=== PATIENT | female | born 1980 | race Hispanic/Latino ===

== ENCOUNTER 2019-01-25 00:32 | Emergency (ER) | payer SELFPAY ==
--- NOTE | 2019-01-25 01:31 | EDPHYS ---
Physician Documentation [facility] Name: Kina Cortez Age: 38 yrs Sex: Female : 1980 Arrival Date: 01/25/2019 Time: 00:33 Bed 16 Private MD: ED Physician Mikey Ho HPI: 01/25 01:32 This 38 yrs old Female presents to ER via Ambulatory with complaints of la1 Toothache, Headache. 01:32 The patient presents with pain. The problem is located in the upper left second molar. la1 Onset: The symptoms/episode began/occurred 1 week(s) ago. Duration: The symptoms are continuous. Modifying factors: The symptoms are alleviated by over the counter medications, the symptoms are aggravated by nothing. Associated signs and symptoms: Pertinent negatives: chills, dysphagia, fever, inability to eat, nausea, redness in area, swelling, vomiting. Severity of symptoms: At their worst the symptoms were moderate. pt reports she has dental pain on the upper left side, it has been there for a week but getting worse, now having left sided burning facial pain. States ibuprofen helps but when it wears off the pain comes back, pt has apt with dentist to have tooth extracted. Historical: - Allergies: 00:46 No Known Allergies; aa1 - PMHx: 00:46 Hypertension; Arthritis; aa1 - PSHx: 00:46 ; aa1 - Social history:: Smoking status: Patient/guardian denies using tobacco. - Ebola Screening: : No symptoms or risks identified at this time. ROS: 01:34 Constitutional: Negative for fever, chills, and weight loss, Eyes: Negative for injury, la1 pain, redness, and discharge, ENT: + dental pain Neck: Negative for injury, pain, and swelling, Cardiovascular: Negative for chest pain, palpitations, and edema, Respiratory: Negative for shortness of breath, cough, wheezing, and pleuritic chest pain, Abdomen/GI: Negative for abdominal pain, nausea, vomiting, diarrhea, and constipation, Back: Negative for injury and pain, MS/Extremity: Negative for injury and deformity. Exam: 01:35 Constitutional: This is a well developed, well nourished patient who is awake, alert, la1 and in no acute distress. Head/Face: Normocephalic, atraumatic. Eyes: Pupils equal round and reactive to light, extra-ocular motions intact. Periorbital areas with no swelling, redness, or edema. 01:35 Neck: Trachea midline, no thyromegaly or masses palpated, and no cervical lymphadenopathy. Supple, full range of motion without nuchal rigidity, or vertebral point tenderness. No Meningismus. Chest/axilla: Normal chest wall appearance and motion. Nontender with no deformity. No lesions are appreciated. Cardiovascular: Regular rate and rhythm with a normal S1 and S2. No gallops, murmurs, or rubs. Normal PMI, no JVD. No pulse deficits. Respiratory: Lungs have equal breath sounds bilaterally, clear to auscultation . No rales, rhonchi or wheezes noted. No increased work of breathing, no retractions or nasal flaring. Abdomen/GI: Soft, non-tender, with normal bowel sounds. No distension No guarding or rebound. No evidence of tenderness throughout. MS/ Extremity: Pulses equal, no cyanosis. Neurovascular intact. Full, normal range of motion. 01:35 ENT: Mouth: Oral mucosa: normal, Dental exam: abscess, specifically in the upper left second molar (#15), dental caries, that is mild, specifically in the upper left second molar (#15). Vital Signs: 00:46 BP 165 / 94; Pulse 78; Resp 18; Temp 98.4; Pulse Ox 98% on R/A; Weight 99.79 kg; Pain aa1 10/10; 02:10 BP 154 / 80; Pulse 79; Resp 16; Pulse Ox 97% on R/A; jb4 MDM: 00:51 Patient medically screened. la1 01:36 Differential diagnosis: dental caries, gingivitis, dental abscess, pericoronitis, acute la1 necrotizing ulcerative gingivitis, trigeminal neuralgia, temporal arteritis. Data reviewed: vital signs, nurses notes, I have discussed the patient's presentation/case with the attending Emergency Department Physician; and as a result, I will discharge patient. Data interpreted: Pulse oximetry: on room air is 98 %. Interpretation: normal. Counseling: I had a detailed discussion with the patient and/or guardian regarding: the historical points, exam findings, and any diagnostic results supporting the discharge/admit diagnosis, the need for outpatient follow up, a dentist. ED course: Pt with left sided facial pain/burning, in conjunction with recent dental infection on the upper left it is likely this pain is caused by inflammation around a nerve, will place on abx and steroids since pt is not diabetic, pt will FU with dentist. Administered Medications: 02:00 Drug: Clindamycin 300 mg Route: PO; jb4 02:10 Follow up: Response: No adverse reaction jb4 02:00 Drug: SOLU-Medrol 125 mg Route: IM; Site: right gluteus; jb4 02:09 Follow up: Response: No adverse reaction jb4 02:00 Drug: [place] 10 mg-325 mg 1 tabs {Note: RAss score 0.} Route: PO; jb4 02:08 Follow up: Response: No adverse reaction; RASS: Alert and Calm (0) jb4 Disposition: 04:48 Co-signature as Attending Physician, Mikey Ho MD I agree with the assessment and tw4 plan of care. Disposition: 01/25/19 01:30 Discharged to Home. Impression: Dental caries, Left facial pain. - Condition is Stable. - Discharge Instructions: Dental Abscess, Dental Caries, Adult. - Prescriptions for Clindamycin HCl 300 mg Oral Capsule - take 1 capsule by ORAL route every 6 hours for 10 days; 40 capsule. Tylenol- Codeine #3 300-30 mg Oral Tablet - take 2 tablets by ORAL route every 6 hours As needed; 15 tablet. Medrol (Anthony) 4 mg Oral Tablets, Dose Pack - take 1 tablet by ORAL route as directed - follow package instructions; 1 packet. - Medication Reconciliation Form, Thank You Letter, Antibiotic Education, Prescription Opioid Use form. - Follow up: Private Physician; When: 2 - 3 days; Reason: Recheck today's complaints, Re-evaluation by your physician. - Problem is an ongoing problem. - Symptoms are unchanged. Signatures: Anjana Vieira RN RN aa1 Kenn Palomares, FISHER QUAHOG-C FISHER QUAHOG-Cla1 Prakash Montano RN RN jb4 Mikey Ho MD MD tw4 Corrections: (The following items were deleted from the chart) 02:13 01:30 01/25/2019 01:30 Discharged to Home. Impression: Dental caries; Left facial pain. jb4 Condition is Stable. Forms are Medication Reconciliation Form, Thank You Letter, Antibiotic Education, Prescription Opioid Use. Follow up: Private Physician; When: 2 - 3 days; Reason: Recheck today's complaints, Re-evaluation by your physician. Problem is an ongoing problem. Symptoms are unchanged. la1
--- NOTE | 2019-01-25 01:31 | ER ---
Nurse's Notes [facility] Name: Kina Cortez Age: 38 yrs Sex: Female : 1980 Arrival Date: 01/25/2019 Time: 00:33 Bed 16 Private MD: Diagnosis: Dental caries;Left facial pain Presentation: 01/25 00:45 Presenting complaint: Patient states: L sided tooth pain and headache x 3 days. aa1 Transition of care: patient was not received from another setting of care. Onset of symptoms was January 21, 2019. Risk Assessment: Do you want to hurt yourself or someone else? Patient reports no desire to harm self or others. Initial Sepsis Screen: Does the patient meet any 2 criteria? No. Patient's initial sepsis screen is negative. Does the patient have a suspected source of infection? No. Patient's initial sepsis screen is negative. Care prior to arrival: None. 00:45 Method Of Arrival: Ambulatory aa1 00:45 Acuity: DOMINIC 4 aa1 Triage Assessment: 00:46 General: Appears in no apparent distress. uncomfortable, obese, Behavior is calm, aa1 cooperative, appropriate for age. Historical: - Allergies: 00:46 No Known Allergies; aa1 - PMHx: 00:46 Hypertension; Arthritis; aa1 - PSHx: 00:46 ; aa1 - Social history:: Smoking status: Patient/guardian denies using tobacco. - Ebola Screening: : No symptoms or risks identified at this time. Screenin:00 Abuse screen: Denies threats or abuse. Nutritional screening: No deficits noted. jb4 Tuberculosis screening: No symptoms or risk factors identified. Fall Risk None identified. Assessment: 01:23 General: Appears in no apparent distress. uncomfortable, Behavior is calm, cooperative, jb4 appropriate for age. Pain: Complains of pain in mouth Pain radiates to left side of head Pain currently is 10 out of 10 on a pain scale. Neuro: Level of Consciousness is awake, alert, obeys commands, Oriented to person, place, time, situation. Cardiovascular: Patient's skin is warm and dry. Respiratory: Airway is patent Respiratory effort is even, unlabored, Respiratory pattern is regular, symmetrical. GI: No signs and/or symptoms were reported involving the gastrointestinal system. : No signs and/or symptoms were reported regarding the genitourinary system. EENT: Oral mucosa is moist. Dental caries noted in upper left second molar (#15). Derm: Skin is intact, Skin is pink, warm \T\ dry. Musculoskeletal: Circulation, motion, and sensation intact. Range of motion: intact in all extremities. 02:10 Reassessment: Patient appears in no apparent distress at this time. Patient and/or jb4 family updated on plan of care and expected duration. Pain level reassessed. Patient is alert, oriented x 3, equal unlabored respirations, skin warm/dry/pink. Vital Signs: 00:46 BP 165 / 94; Pulse 78; Resp 18; Temp 98.4; Pulse Ox 98% on R/A; Weight 99.79 kg; Pain aa1 11/22; 02:10 BP 154 / 80; Pulse 79; Resp 16; Pulse Ox 97% on R/A; jb4 ED Course: 00:33 Patient arrived in ED. cf2 00:36 Kenn Palomares FNP-C [facility]. la1 00:36 Mikey Ho MD is Attending Physician. la1 00:40 Prakash Montano, GLORIA is Primary Nurse. jb4 00:46 Triage completed. aa1 00:46 Arm band placed on right wrist. aa1 01:00 Patient has correct armband on for positive identification. Bed in low position. Call jb4 light in reach. Side rails up X 1. Pulse ox on. NIBP on. 02:13 No provider procedures requiring assistance completed. Patient did not have IV access jb4 during this emergency room visit. Administered Medications: 02:00 Drug: Clindamycin 300 mg Route: PO; jb4 02:10 Follow up: Response: No adverse reaction jb4 02:00 Drug: SOLU-Medrol 125 mg Route: IM; Site: right gluteus; jb4 02:09 Follow up: Response: No adverse reaction jb4 02:00 Drug: [place] 10 mg-325 mg 1 tabs {Note: RAss score 0.} Route: PO; jb4 02:08 Follow up: Response: No adverse reaction; RASS: Alert and Calm (0) jb4 Outcome: 01:30 Discharge ordered by . la1 02:13 Discharged to home ambulatory, with family. jb4 02:13 Condition: stable 02:13 Discharge instructions given to patient, family, Instructed on discharge instructions, follow up and referral plans. medication usage, Demonstrated understanding of instructions, follow-up care, medications, Prescriptions given X 3. 02:13 Patient left the ED. jb4 Signatures: Anjana Vieira RN RN aa1 Kenn Palomares, AIR ANALYST-C AIR ANALYST-Cla1 Prakash Montano RN RN jb4 Janet Kennedy 2
[2019-01-25] MEDS ORDERED: HYDROCODONE/APAP 10/325 TAB ONE (01:50)
[2019-01-25] MEDS ORDERED: CLINDAMYCIN HCL 150 MG CAP ONE (01:50)
[2019-01-25] MEDS ORDERED: METHYLPREDNISOLONE 125 MG INJ ONE (01:50)
[2019-01-25 05:27] VITALS: TEMP 98.4
[2019-01-25 05:29] VITALS: BP 154/80; O2SAT 97
== END 2019-01-25 02:13 | disposition home or self-care (01) ==
LOC: ER 00:32
DX: K02.9 Dental caries, unspecified (principal); R51 Headache
CPT/HCPCS: 96372; 99283; J2930

== ENCOUNTER 2020-05-25 15:47 | Emergency (ER) | payer SELFPAY ==
[2020-05-25 16:34] LABS: Absolute Lymphocytes (CBC) 1.5 K/uL (0.7-4.9); Basophils % 0.8 % (0-1.3); Hematocrit 39.9 % (36.0-45.0); Lymphocytes % 18.7 % (15.3-44.8); MPV 9.2 fL (7.6-11.3); RBC Red Blood Cell Count 4.66 M/uL (3.86-4.86)
[2020-05-25] MEDS ORDERED: MORPHINE 4 MG/ML SYR ONE (17:16)
[2020-05-25] MEDS ORDERED: ONDANSETRON 4 MG/2 ML VIAL ONE (17:16)
--- NOTE | 2020-05-25 17:30 | RAD REPORT ---
EXAM DESCRIPTION: CT - Head Brain Wo Cont - 05/25/2020 5:02 pm CLINICAL HISTORY: HEADACHE COMPARISON: No comparisons TECHNIQUE: Axial 5 mm thick images of the head were obtained without IV contrast. All CT scans are performed using dose optimization technique as appropriate and may include automated exposure control or mA/KV adjustment according to patient size. FINDINGS: No intracranial hemorrhage, mass, edema or shift of mid-line structures. No acute infarcti on changes seen. No abnormal extra-axial fluid collections. Ventricles are normal. Mastoid air cells and visualized portions of the paranasal sinuses are clear. No acute bony findings. IMPRESSION: Negative non-contrast CT head examination.
--- NOTE | 2020-05-25 17:33 | RAD REPORT ---
EXAM DESCRIPTION: RAD - Chest Single View - 05/25/2020 5:14 pm CLINICAL HISTORY: CHEST PAIN COMPARISON: None TECHNIQUE: AP portable chest image was obtained 05/25/2020 5:14 pm . FINDINGS: Lungs are clear. Lung volumes are low. Portable technique, low lung volumes and very large body habitus limit evaluation. No gross evidence for a focal mass or consolidation. Mild failure or volume overload could be masked. No measurable pleural effusion and no pneumothorax. No acute bony ab normality seen. No acute aortic findings suspected. IMPRESSION: No acute cardiopulmonary process. Exam is significantly limited. Early failure or volume overload cannot be excluded.
[2020-05-25 17:36] LABS: Protime INR 1.11
[2020-05-25 17:47] LABS: ALT/SGPT 17 U/L (12-78); AST/SGOT 10 U/L (15-37); Albumin 3.3 g/dL (3.4-5.0); Alkaline Phosphatase 103 U/L (45-117); BUN Blood Urea Nitrogen 13 mg/dL (7-18); Bicarbonate 30 mmol/L (21-32); Bilirubin Direct < 0.1 mg/dL (0-0.2); Bilirubin Total 0.2 mg/dL (0.2-1.0); Glucose Level 97 mg/dL (74-106); Magnesium 1.8 mg/dL (1.8-2.4); NT PRO-BNP 70 pg/mL (<125); Sodium Level 136 mmol/L (136-145); Troponin (Emerg Dept Use Only) < 0.02 ng/mL (0.0-0.045)
--- NOTE | 2020-05-25 20:05 | ER ---
Nurse's Notes [facility] Name: Kina Cortez Age: 39 yrs Sex: Female : 1980 Arrival Date: 05/25/2020 Time: 15:49 Bed 14 Private MD: Diagnosis: Chest pain, unspecified;Headache Presentation: 05/25 15:49 Chief complaint: EMS states: "pt was at work when she had increasingly worsening jd3 headache to the point where she reports that it will pop. pt also reported pain/pressure behind her eyes. pt with history of high blood pressure with pressures in the 190's systolic. upon arrival to the hospital, the pt reported having increasingly more pressure in her chest as well.". Coronavirus screen: At this time, the client does not indicate any symptoms associated with coronavirus-19. Ebola Screen: Patient negative for fever greater than or equal to 101.5 degrees Fahrenheit, and additional compatible Ebola Virus Disease symptoms. Initial Sepsis Screen: Does the patient meet any 2 criteria? No. Patient's initial sepsis screen is negative. Does the patient have a suspected source of infection? No. Patient's initial sepsis screen is negative. Risk Assessment: Do you want to hurt yourself or someone else? Patient reports no desire to harm self or others. Onset of symptoms was May 25, 2020. 15:49 Method Of Arrival: EMS: [place] [id number] 15:49 Acuity: DOMINIC 3 jd3 Triage Assessment: 16:00 General: Appears distressed, uncomfortable, Behavior is cooperative, appropriate for bp age, anxious. Pain: Complains of pain in head and chest. EENT: No deficits noted. Neuro: Level of Consciousness is awake, alert, obeys commands, Oriented to Appropriate for age Reports headache. Cardiovascular: No deficits noted. Respiratory: No deficits noted. GI: No deficits noted. : No signs and/or symptoms were reported regarding the genitourinary system. Derm: No deficits noted. Musculoskeletal: No deficits noted. Historical: - Allergies: 15:53 No Known Allergies; jd3 - Home Meds: 15:53 Lisinopril Oral [Active]; jd3 - PMHx: 15:53 Arthritis; Hypertension; jd3 - PSHx: 15:53 ; jd3 - Immunization history:: Adult Immunizations up to date. - Social history:: Smoking status: unknown. Screenin:55 Abuse screen: Denies threats or abuse. Nutritional screening: No deficits noted. jd3 Tuberculosis screening: No symptoms or risk factors identified. Fall Risk Ambulatory Aid- None/Bed Rest/Nurse Assist (0 pts). Gait- Normal/Bed Rest/Wheelchair (0 pts) Mental Status- Oriented to own ability (0 pts). Total Lucas Fall Scale indicates No Risk (0-24 pts). Assessment: 16:00 General: SEE TRIAGE NOTE. bp 17:00 Reassessment: No changes from previously documented assessment. Patient and/or family bp updated on plan of care and expected duration. Pain level reassessed. PT RETURNED FROM CT. 18:00 Reassessment: No changes from previously documented assessment. Patient and/or family bp updated on plan of care and expected duration. Pain level reassessed. ALL CURRENT ORDERS COMPLETE, DISPO PENDING. 19:00 Reassessment: Patient appears in no apparent distress at this time. Patient and/or jb4 family updated on plan of care and expected duration. Pain level reassessed. Patient is alert, oriented x 3, equal unlabored respirations, skin warm/dry/pink. 20:20 Reassessment: Patient appears in no apparent distress at this time. Patient and/or jb4 family updated on plan of care and expected duration. Pain level reassessed. Patient is alert, oriented x 3, equal unlabored respirations, skin warm/dry/pink. Vital Signs: 15:54 BP 157 / 77; Pulse 77; Resp 25 S; Temp 98.1(O); Pulse Ox 98% on R/A; Pain 10/10; jd3 17:04 BP 147 / 80; Pulse 77; Resp 18; Pulse Ox 96% on R/A; mh5 18:00 BP 116 / 72; Pulse 78; Resp 16; Pulse Ox 98% ; bp 19:30 BP 124 / 74; Pulse 81; Resp 19; Pulse Ox 94% on R/A; jb4 20:00 BP 124 / 82; Pulse 73; Resp 16; Pulse Ox 97% on R/A; jb4 ED Course: 15:49 Patient arrived in ED. jd3 15:51 Diego Vieyra NP is PHCP. pm1 15:51 Cirilo Myers MD is Attending Physician. pm1 15:53 Triage completed. jd3 15:54 Arm band placed on. jd3 15:55 Patient has correct armband on for positive identification. Placed in gown. Bed in low jd3 position. Call light in reach. Side rails up X 1. property assessment monitor on. Pulse ox on. NIBP on. 16:00 Anival May, RN is Primary Nurse. bp 16:03 Patient has correct armband on for positive identification. Placed in gown. Bed in low mh5 position. Call light in reach. Side rails up X 1. Side rails up X2. Warm blanket given. property assessment monitor on. Pulse ox on. NIBP on. 16:03 EKG done, by ED staff, reviewed by Cirilo Myers MD. [facility] 16:12 Inserted saline lock: 20 gauge in right antecubital area, using aseptic technique. 5 Blood collected. 16:12 Initial lab(s) drawn, by ky, held in ED. [facility] 16:21 Basic Metabolic Panel Sent. [facility] 16:21 CBC with Automated Diff Sent. 5 16:21 Liver (Hepatic) Function Sent. 5 16:22 Basic Metabolic Panel Sent. 5 16:22 CBC with Diff Sent. 5 16:22 Magnesium Sent. 5 16:22 LFT's Sent. 5 16:22 NT PRO-BNP Sent. 5 16:23 PT-INR Sent. 5 16:23 Troponin (emerg Dept Use Only) Sent. 5 17:01 CT Head Brain wo Cont In Process Unspecified. EDMS 17:19 XRAY Chest (1 view) In Process Unspecified. EDMS 20:18 No provider procedures requiring assistance completed. IV discontinued, intact, ea bleeding controlled, No redness/swelling at site. Pressure dressing applied. Administered Medications: 17:00 Drug: morphine 4 mg Route: IVP; Site: right antecubital; bp 18:18 Follow up: Response: Pain is decreased bp 17:00 Drug: Zofran (Ondansetron) 4 mg Route: IVP; Site: right antecubital; bp 18:18 Follow up: Response: Nausea is decreased bp 20:21 Drug: Tylenol 1000 mg Route: PO; ea 20:21 Follow up: Response: Medication administered at discharge. ea Outcome: 20:04 Discharge ordered by . pm1 20:18 Discharged to home ambulatory, with family. raven 20:18 Condition: stable 20:18 Discharge instructions given to patient, Instructed on discharge instructions, follow up and referral plans. Demonstrated understanding of instructions, follow-up care. 20:22 Patient left the ED. jb4 Signatures: Dispatcher [employer] EDMS Diego Vieyra NP INSPECTOR MISSILE pm1 Prakash Montano RN RN jb4 Roula Griffin Kaylee Montenegro RN RN ea Davies, Jonathon, RN RN jd3 Anival May RN RN bp
--- NOTE | 2020-05-25 20:05 | EDPHYS ---
Physician Documentation [facility] Name: Kina Cortez Age: 39 yrs Sex: Female : 1980 Arrival Date: 05/25/2020 Time: 15:49 Bed 14 Private MD: ED Physician Cirilo Myers HPI: 05/25 16:36 This 39 yrs old Female presents to ER via EMS with complaints of Headache, pm1 Chest Pressure. 16:36 The patient complains of pain to the left side of head. The patient describes the pm1 headache as aching, constant. Onset: The symptoms/episode began/occurred 2 day(s) ago. Associated signs and symptoms: Pertinent positives: Chest pain, Pertinent negatives: fever, neck stiffness, paresthesias, vomiting, weakness. Severity of symptoms: in the emergency department the pain is actually worse. Headache History: Denies prior headaches. The patient has not experienced similar symptoms in the past. Patient got the covid vaccine on Monday and reports onset of chest pain and headache on Monday. She attributes her symptoms to the vaccine. Historical: - Allergies: 15:53 No Known Allergies; jd3 - Home Meds: 15:53 Lisinopril Oral [Active]; jd3 - PMHx: 15:53 Arthritis; Hypertension; jd3 - PSHx: 15:53 ; jd3 - Immunization history:: Adult Immunizations up to date. - Social history:: Smoking status: unknown. ROS: 16:36 Constitutional: Negative for fever, chills, and weight loss, Eyes: Negative for injury, pm1 pain, redness, and discharge, ENT: Negative for injury, pain, and discharge, Neck: Negative for injury, pain, and swelling. 16:36 Respiratory: Negative for shortness of breath, cough, wheezing, and pleuritic chest pain, Abdomen/GI: Negative for abdominal pain, nausea, vomiting, diarrhea, and constipation, Back: Negative for injury and pain, MS/Extremity: Negative for injury and deformity, Skin: Negative for injury, rash, and discoloration. 16:36 Cardiovascular: Positive for chest pain, Negative for edema, palpitations. 16:36 Neuro: Positive for headache, Negative for numbness, tingling, weakness. Exam: 16:36 Constitutional: This is a well developed, well nourished patient who is awake, alert, pm1 and in no acute distress. Head/Face: Normocephalic, atraumatic. Neck: Trachea midline, no thyromegaly or masses palpated, and no cervical lymphadenopathy. Supple, full range of motion without nuchal rigidity, or vertebral point tenderness. No Meningismus. Chest/axilla: Normal chest wall appearance and motion. Nontender with no deformity. No lesions are appreciated. Cardiovascular: Regular rate and rhythm with a normal S1 and S2. No gallops, murmurs, or rubs. Normal PMI, no JVD. No pulse deficits. Respiratory: Lungs have equal breath sounds bilaterally, clear to auscultation and percussion. No rales, rhonchi or wheezes noted. No increased work of breathing, no retractions or nasal flaring. 16:36 Back: No spinal tenderness. No costovertebral tenderness. Full range of motion. Skin: Warm, dry with normal turgor. Normal color with no rashes, no lesions, and no evidence of cellulitis. MS/ Extremity: Pulses equal, no cyanosis. Neurovascular intact. Full, normal range of motion. 16:36 Abdomen/GI: Inspection: obese Palpation: abdomen is soft and non-tender, in all quadrants. 16:36 Neuro: Orientation: is normal, Mentation: is normal, Cranial nerves: CN II- XII are normal as tested, Motor: is normal, moves all fours, Sensation: is normal, no obvious gross deficits. Vital Signs: 15:54 BP 157 / 77; Pulse 77; Resp 25 S; Temp 98.1(O); Pulse Ox 98% on R/A; Pain 10/10; jd3 17:04 BP 147 / 80; Pulse 77; Resp 18; Pulse Ox 96% on R/A; mh5 18:00 BP 116 / 72; Pulse 78; Resp 16; Pulse Ox 98% ; bp 19:30 BP 124 / 74; Pulse 81; Resp 19; Pulse Ox 94% on R/A; jb4 20:00 BP 124 / 82; Pulse 73; Resp 16; Pulse Ox 97% on R/A; jb4 MDM: 15:55 Patient medically screened. [facility] 20:04 Data reviewed: vital signs. pm1 20:04 Counseling: I had a detailed discussion with the patient and/or guardian regarding: the pm1 historical points, exam findings, and any diagnostic results supporting the discharge/admit diagnosis, lab results, radiology results, the need for outpatient follow up, to return to the emergency department if symptoms worsen or persist or if there are any questions or concerns that arise at home. 05/25 16:15 Order name: Basic Metabolic Panel iw 05/25 16:15 Order name: CBC with Diff iw 05/25 16:15 Order name: LFT's iw 05/25 16:15 Order name: Magnesium; Complete Time: 18:05 iw 05/25 16:15 Order name: NT PRO-BNP; Complete Time: 18:05 iw 05/25 16:15 Order name: PT-INR; Complete Time: 18:05 iw 05/25 16:15 Order name: Troponin (emerg Dept Use Only); Complete Time: 18:05 iw 05/25 16:15 Order name: XRAY Chest (1 view); Complete Time: 17:36 iw 05/25 16:15 Order name: Basic Metabolic Panel; Complete Time: 18:05 EDCA 05/25 16:15 Order name: CBC with Automated Diff; Complete Time: 16:56 EDCA 05/25 16:15 Order name: Liver (Hepatic) Function; Complete Time: 18:05 EDMS 05/25 16:27 Order name: CT Head Brain wo Cont; Complete Time: 17:36 pm1 05/25 19:20 Order name: Troponin (emerg Dept Use Only) pm1 05/25 19:20 Order name: Troponin (Emerg Dept Use Only); Complete Time: 21:09 EDMS 05/25 16:15 Order name: EKG; Complete Time: 16:16 05/25 16:15 Order name: Cardiac monitoring; Complete Time: 16:23 iw 05/25 16:15 Order name: EKG - Nurse/Tech; Complete Time: 16:23 iw 05/25 16:15 Order name: IV Saline Lock; Complete Time: 16:21 iw 05/25 16:15 Order name: Labs collected and sent; Complete Time: 16:22 iw 05/25 16:15 Order name: O2 Per Protocol; Complete Time: 16:22 iw 05/25 16:15 Order name: O2 Sat Monitoring; Complete Time: 16:22 05/25 16:36 Order name: Labs - recollect needed: recollect labs; Complete Time: 17:13 bd Administered Medications: 17:00 Drug: morphine 4 mg Route: IVP; Site: right antecubital; bp 18:18 Follow up: Response: Pain is decreased bp 17:00 Drug: Zofran (Ondansetron) 4 mg Route: IVP; Site: right antecubital; bp 18:18 Follow up: Response: Nausea is decreased bp 20:21 Drug: Tylenol 1000 mg Route: PO; ea 20:21 Follow up: Response: Medication administered at discharge. ea Disposition: 05/25/20 20:04 Discharged to Home. Impression: Chest pain, unspecified, Headache. - Condition is Stable. - Discharge Instructions: Nonspecific Chest Pain, General Headache Without Cause. - Medication Reconciliation Form, Thank You Letter, Antibiotic Education, Prescription Opioid Use, Work release form form. - Follow up: Emergency Department; When: As needed; Reason: Worsening of condition. Follow up: Private Physician; When: 2 - 3 days; Reason: Recheck today's complaints, Continuance of care, Re-evaluation by your physician. - Problem is new. - Symptoms have improved. Addendum: 05/27/2020 06:51 Co-signature as Attending Physician, Cirilo Myers MD I agree with the assessment and c yung plan of care. Signatures: Dispatcher [employer] EDMS Moira Brock Corey, MD MD cha Williams, Irene, RN RN Diego Vaughan NP CHIPPER FEEDER pm1 Prakash Montano RN RN jb4 Kaylee Verdin RN RN ea Davies, Jonathon, RN RN jAnival Argueta RN RN bp Corrections: (The following items were deleted from the chart) 05/25 20:22 20:04 05/25/2020 20:04 Discharged to Home. Impression: Chest pain, unspecified; jb4 Headache. Condition is Stable. Forms are Medication Reconciliation Form, Thank You Letter, Antibiotic Education, Prescription Opioid Use. Follow up: Emergency Department; When: As needed; Reason: Worsening of condition. Follow up: Private Physician; When: 2 - 3 days; Reason: Recheck today's complaints, Continuance of care, Re-evaluation by your physician. Problem is new. Symptoms have improved. pm1
[2020-05-25] MEDS ORDERED: ACETAMINOPHEN 500 MG TAB ONE (20:31)
[2020-05-25 20:35] VITALS: TEMP 98.1
[2020-05-25 20:40] VITALS: BP 124/82; O2SAT 97
--- NOTE | 2020-05-26 16:35 | EKG ---
Test Date: 2020-05-25 Test Time: 15:57:28 Housing Counselor: TIAGO MEASUREMENT RESULTS: Intervals: Rate: 81 KS: 178 QRSD: 84 QT: 370 QTc: 429 Duncan: P: 50 KS: 178 QRS: 64 T: 69 INTERPRETIVE STATEMENTS: Normal sinus rhythm Possible Left atrial enlargement Borderline ECG No previous ECG available for comparison Electronically Signed On 05-26-20 16:33:08 CDT by Christian Noyola
== END 2020-05-25 20:22 | disposition home or self-care (01) ==
LOC: ER 15:47
DX: R07.9 Chest pain, unspecified (principal); R51.9 Headache, unspecified; I10 Essential (primary) hypertension
CPT/HCPCS: 36415; 70450; 71045; 80048; 80076; 83735; 83880; 84484; 85025; 85610; 93005; 96374; 96375; 99285; J2405

== ENCOUNTER 2020-12-13 23:36 | Inpatient (IN) | payer SELFPAY ==
[2020-12-14 00:25] LABS: MPV 8.5 fL (7.6-11.3); Protime INR 1.05
[2020-12-14 00:33] LABS: Absolute Lymphocytes (CBC) 1.3 K/uL (0.7-4.9); Basophils % 0.5 % (0-1.3); Hematocrit 39.7 % (36.0-45.0); RBC Red Blood Cell Count 4.59 M/uL (3.86-4.86)
[2020-12-14 00:39] LABS: ALT/SGPT 25 U/L (12-78); AST/SGOT 14 U/L (15-37); Albumin 3.4 g/dL (3.4-5.0); Alkaline Phosphatase 113 U/L (45-117); BUN Blood Urea Nitrogen 15 mg/dL (7-18); Bicarbonate 29 mmol/L (21-32); Bilirubin Direct < 0.1 mg/dL (0-0.2); Bilirubin Total 0.2 mg/dL (0.2-1.0); Glucose Level 147 mg/dL (74-106); Magnesium 1.8 mg/dL (1.8-2.4); NT PRO-BNP 12 pg/mL (<125); Potassium 3.6 mmol/L (3.5-5.1); Protein, Total 8.5 g/dL (6.4-8.2); Sodium Level 139 mmol/L (136-145); Troponin (Emerg Dept Use Only) < 0.02 ng/mL (0.0-0.045)
--- NOTE | 2020-12-14 00:39 | ER ---
Nurse's Notes [facility] Name: Kina Cortez Age: 40 yrs Sex: Female : 1980 Arrival Date: 12/13/2020 Time: 23:38 Bed 4 Private MD: Diagnosis: Moderate persistent asthma with (acute) exacerbation Presentation: 12/13 23:44 Chief complaint: EMS states: they were toned out for report of pt with respiratory bb distress on their arrival pt was tripoding and room sats were 86% when moved to [facility] her sats dropped to 56%. Coronavirus screen: difficulty breathing, headache, Client presents with at least one sign or symptom that may indicate coronavirus-19. Standard/surgical mask placed on the client. Ebola Screen: No symptoms or risks identified at this time. Initial Sepsis Screen: Does the patient meet any 2 criteria? RR > 20 per min. HR > 90 bpm. Yes Does the patient have a suspected source of infection? Yes: Productive cough/pneumonia If YES to both, name of provider notified: Imelda Ty MD Risk Assessment: Do you want to hurt yourself or someone else? Patient reports no desire to harm self or others. Onset of symptoms was December 13, 2020. 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 - Social history:: Smoking status: unknown. Screenin:40 Abuse screen: Denies threats or abuse. Denies injuries from another. Nutritional bs2 screening: No deficits noted. Tuberculosis screening: No symptoms or risk factors identified. Fall Risk None identified. Assessment: 23:50 General: Appears distressed, uncomfortable, obese, well groomed, well developed, well bs2 nourished, Behavior is cooperative, appropriate for age, anxious. Pain: Denies pain. Neuro: No deficits noted. Cardiovascular: Denies chest pain, Rhythm is sinus tachycardia. Respiratory: Reports shortness of breath at rest cough that is non-productive, labored breathing Airway is patent Trachea midline Respiratory effort is even, labored, with nasal flaring, using tripod position, Respiratory pattern is regular, symmetrical, tachypnea Breath sounds are diminished bilaterally. Breath sounds with wheezes bilaterally. Onset: The symptoms/episode began/occurred just prior to arrival. GI: No signs and/or symptoms were reported involving the gastrointestinal system. : No signs and/or symptoms were reported regarding the genitourinary system. EENT: No signs and/or symptoms were reported regarding the EENT system. Derm: No signs and/or symptoms reported regarding the dermatologic system. Musculoskeletal: No signs and/or symptoms reported regarding the musculoskeletal system. Vital Signs: 23:44 BP 159 / 94; Pulse 124; Resp 40 S; Temp 99.3(O); Pulse Ox 99% on R/A; Weight 145.15 kg bb (R); Pain 10/10; 12/14 00:00 BP 161 / 92; Pulse 110; Resp 31; Pulse Ox 100% on Non-rebreather mask; Pain 0/10; bs2 00:30 BP 121 / 45; Pulse 114; Resp 30; Pulse Ox 100% on Non-rebreather mask; bs2 01:00 BP 158 / 79; Pulse 120; Resp 30; Pulse Ox 93% on 4 lpm NC; bs2 02:00 BP 136 / 75; Pulse 110; Resp 26; Temp 98.6(O); Pulse Ox 99% on BiPAP; Pain 0/10; bs2 02:30 BP 141 / 70; Pulse 104; Resp 25; Temp 98.6; Pulse Ox 100% on Non-rebreather mask; Pain bs2 4/10; ED Course: 12/13 23:38 Patient arrived in ED. mw2 23:40 Patient has correct armband on for positive identification. Placed in gown. Bed in low bs2 position. Call light in reach. Side rails up X 1. american history professor on. Pulse ox on. NIBP on. Door closed. Warm blanket given. 23:41 Imelda Ty MD is Attending Physician. sp3 23:46 Triage completed. bb 23:46 Arm band placed on Patient placed in an exam room, on a stretcher, on oxygen, on bb cardiac cath rn, on pulse oximetry. 23:59 Inserted saline lock: 18 gauge in left antecubital area, using aseptic technique. Blood bs2 collected. 12/14 00:00 Initial lab(s) drawn, by me, sent to lab. First set of blood cultures drawn by me, EKG bs2 done, by laboratory mechanical technician. COVID swab sent to lab. Flu and/or RSV swab sent to lab. 00:13 XRAY Chest (1 view) In Process Unspecified. EDMS 00:15 Second set of blood cultures drawn by me. bs2 00:18 Bindu Conde, RN is Primary Nurse. bs2 00:18 Flu Sent. bs2 00:18 CBC with Automated Diff Sent. bs2 00:18 Basic Metabolic Panel Sent. bs2 00:18 Lactate Sent. bs2 00:18 Blood Culture Adult (2) Sent. bs2 00:18 Basic Metabolic Panel Sent. bs2 00:18 CBC with Diff Sent. bs2 00:19 LFT's Sent. bs2 00:19 Magnesium Sent. bs2 00:19 NT PRO-BNP Sent. bs2 00:19 PT-INR Sent. bs2 00:19 Troponin (emerg Dept Use Only) Sent. bs2 00:38 Arnold Mejia MD is Hospitalizing Provider. sp3 01:51 BIPAP Sent. bs2 01:51 Flu Sent. bs2 02:28 No provider procedures requiring assistance completed. bs2 02:30 Patient admitted, IV remains in place. bs2 02:47 CT Head Brain wo Cont Sent. bs2 Administered Medications: 00:18 Drug: DuoNeb (albuterol 2.5 mg, ipratropium 0.5 mg) (3:1) (2.5 mg - 0.5 mg) 3 ml Route: bs2 Nebulizer; 01:52 Follow up: Response: No adverse reaction bs2 00:18 Drug: DuoNeb (albuterol 2.5 mg, ipratropium 0.5 mg) (3:1) (2.5 mg - 0.5 mg) 3 ml Route: bs2 Nebulizer; :52 Follow up: Response: No adverse reaction bs2 00:18 Drug: SOLU-Medrol (methylPrednisoLONE) 125 mg Route: IVP; Site: left antecubital; bs2 01:52 Follow up: Response: No adverse reaction bs2 01:05 Not Given (Other Intervention Used): Benadryl (diphenhydrAMINE) 12.5 mg IVP once la1 01:51 Drug: Magnesium Sulfate 2 grams Route: IVPB; Infused Over: 2 hrs; Site: left bs2 antecubital; 02:47 Follow up: IV Status: Completed infusion; IV Intake: 50ml bs2 01:51 Drug: Ketorolac 15 mg Route: IVP; Site: left antecubital; bs2 01:52 Follow up: Response: No adverse reaction bs2 02:47 Drug: Tamiflu (oseltamivir) 75 mg Route: PO; bs2 02:48 Follow up: Response: No adverse reaction bs2 Intake: 02:47 IV: 50ml; Total: 50ml. bs2 Outcome: 00:39 Decision to Hospitalize by Provider. sp3 02:30 Admitted to Med/surg accompanied by tech, via wheelchair, room 222, with oxygen, Report bs2 called to Emily 02:30 Condition: improved 02:30 Instructed on the need for admit. 02:59 Patient left the ED. bs2 Signatures: Dispatcher [employer] EDMS Francisca Romero RN RN bb Talia Pitts mw2 Imelda Ty MD MD sp3 Bindu Conde RN RN bs2 Kenn Palomares SPORTS COMPLEX ATTENDANT-Cla1 Corrections: (The following items were deleted from the chart) 00:21 00:18 CORONAVIRUS+ drawn and sent. bs2 EDMS
--- NOTE | 2020-12-14 00:39 | EDPHYS ---
Physician Documentation [facility] Name: Kina Cortez Age: 40 yrs Sex: Female : 1980 Arrival Date: 12/13/2020 Time: 23:38 Bed 4 Private MD: ED Physician Imelda Ty HPI: 12/13 23:43 This 40 yrs old Female presents to ER via EMS with complaints of Shortness of sp3 breath. 23:43 40-year-old female with history of hypertension, asthma, "pulmonary problems" presents sp3 with 1 day history of asthma exacerbation, wheezing, and dyspnea. Per EMS family states that a few hours prior to arrival her symptoms worsened at which point he activated EMS who is brought the patient here. Patient also complains of severe headache and her blood pressure initially was elevated on scene. Patient denies any trauma, neck pain, URI symptoms, fever, chest pain, back pain, abdominal pain, nausea, vomiting, diarrhea, rash, known sick contacts, travel history, extremity problems, neurological symptoms, or any other symptoms at this time. Remainder of ROS is negative.. 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 - Social history:: Smoking status: unknown. ROS: 23:44 Constitutional: Negative for fever, chills, and weight loss, Eyes: Negative for injury, sp3 pain, redness, and discharge, ENT: Negative for injury, pain, and discharge, Neck: Negative for injury, pain, and swelling, Cardiovascular: Negative for chest pain, palpitations, and edema, Abdomen/GI: Negative for abdominal pain, nausea, vomiting, diarrhea, and constipation, Back: Negative for injury and pain, MS/Extremity: Negative for injury and deformity, Skin: Negative for injury, rash, and discoloration, Neuro: Negative for headache, weakness, numbness, tingling, and seizure, Psych: Negative for depression, anxiety, suicide ideation, homicidal ideation, and hallucinations, Allergy/Immunology: Negative for hives, rash, and allergies, Endocrine: Negative for neck swelling, polydipsia, polyuria, polyphagia, and marked weight changes. 23:44 All other systems are negative. Exam: 23:44 Head/Face: Normocephalic, atraumatic. Eyes: Pupils equal round and reactive to light, sp3 extra-ocular motions intact. Lids and lashes normal. Conjunctiva and sclera are non-icteric and not injected. Cornea within normal limits. Periorbital areas with no swelling, redness, or edema. ENT: Nares patent. No nasal discharge, no septal abnormalities noted. External auditory canals are clear. Oropharynx with no redness, swelling, or masses, exudates, or evidence of obstruction, uvula midline. Mucous membranes moist. Neck: Trachea midline, no thyromegaly or masses palpated, and no cervical lymphadenopathy. Supple, full range of motion without nuchal rigidity, or vertebral point tenderness. No Meningismus. Chest/axilla: Normal chest wall appearance and motion. Nontender with no deformity. No lesions are appreciated. Abdomen/GI: Soft, non-tender, with normal bowel sounds. No distension or tympany. No guarding or rebound. No evidence of tenderness throughout. Back: No spinal tenderness. No costovertebral tenderness. Full range of motion. Skin: Warm, dry with normal turgor. Normal color with no rashes, no lesions, and no evidence of cellulitis. MS/ Extremity: Pulses equal, no cyanosis. Neurovascular intact. Full, normal range of motion. Neuro: Awake and alert, GCS 15, oriented to person, place, time, and situation. Cranial nerves II-XII grossly intact. Motor strength 5/5 in all extremities. Sensory grossly intact. Cerebellar exam normal. Normal gait. Psych: Awake, alert, with orientation to person, place and time. Behavior, mood, and affect are within normal limits. 23:44 Cardiovascular: Patient is in sinus tachycardia in the 120s. Otherwise cardiac exam is normal.. 23:44 Respiratory: Patient in moderate respiratory distress with inspiratory and expiratory wheezing and mild rhonchi. No rales were noted. Respiratory rate is in the upper 20s. Room air pulse ox per EMS was 86%. Here 100% on nonrebreather mask. No cyanosis noted.. Vital Signs: 23:44 BP 159 / 94; Pulse 124; Resp 40 S; Temp 99.3(O); Pulse Ox 99% on R/A; Weight 145.15 kg bb (R); Pain 11/22; 12/14 00:00 BP 161 / 92; Pulse 110; Resp 31; Pulse Ox 100% on Non-rebreather mask; Pain 0/10; bs2 00:30 BP 121 / 45; Pulse 114; Resp 30; Pulse Ox 100% on Non-rebreather mask; bs2 01:00 BP 158 / 79; Pulse 120; Resp 30; Pulse Ox 93% on 4 lpm NC; bs2 02:00 BP 136 / 75; Pulse 110; Resp 26; Temp 98.6(O); Pulse Ox 99% on BiPAP; Pain 0/10; bs2 02:30 BP 141 / 70; Pulse 104; Resp 25; Temp 98.6; Pulse Ox 100% on Non-rebreather mask; Pain bs2 10; MDM: 12/13 23:41 Patient medically screened. sp3 23:46 Data reviewed: vital signs, nurses notes. ED course: 40-year-old female with likely sp3 asthma exacerbation plus minus pneumonia. Work-up will include chest x-ray, laboratory values, EKG, nebulizers, steroids IV, and general observation. If patient improves will likely discharge home or possible observation if still symptomatic. I meant highly suspicious for pneumonia, sepsis, pulmonary embolism, acute coronary syndrome, shock, vascular compromise including thoracic aortic aneurysm or dissection, any other critical findings at this time.. 12/14 00:37 ED course: Patient still tachycardic but feels better and wheezing is improved. Chest sp3 x-ray does not demonstrate any no consolidation although chest x-ray was underpenetrated. Admit 23-hour observation to the hospitalist service for serial nebulizers and continued IV steroids. CT scan of the head is still pending and will be followed up.. 12/13 23:42 Order name: Basic Metabolic Panel sp3 12/13 23:42 Order name: CBC with Diff sp3 12/13 23:42 Order name: LFT's; Complete Time: 00:57 sp3 12/13 23:42 Order name: Magnesium; Complete Time: 00:57 sp3 12/13 23:42 Order name: NT PRO-BNP; Complete Time: 00:57 sp3 12/13 23:42 Order name: PT-INR; Complete Time: 00:36 3 12/13 23:42 Order name: Troponin (emerg Dept Use Only); Complete Time: 00:57 3 12/13 23:42 Order name: Blood Culture Adult (2) [facility] 12/13 23:42 Order name: Lactate; Complete Time: 00:36 3 12/13 23:42 Order name: Basic Metabolic Panel; Complete Time: 00:57 EDID 12/13 23:42 Order name: CBC with Automated Diff; Complete Time: 00:36 EDMS 12/14 00:01 Order name: Flu 12/14 00:21 Order name: SARS-COV-2 RT PCR EDID 12/13 23:42 Order name: XRAY Chest (1 view) [facility] 12/13 23:42 Order name: EKG; Complete Time: 23:43 3 12/13 23:42 Order name: Cardiac monitoring; Complete Time: 00:19 [facility] 12/13 23:42 Order name: EKG - Nurse/Tech; Complete Time: 00:19 [facility] 12/13 23:42 Order name: IV Saline Lock; Complete Time: 00:19 3 12/13 23:42 Order name: Labs collected and sent; Complete Time: 00:19 3 12/14 00:19 Order name: CT Head Brain wo Cont [facility] 12/14 01:12 Order name: BIPAP 12/14 01:50 Order name: Urine Dipstick-Ancillary [facility] 12/13 23:42 Order name: O2 Per Protocol; Complete Time: 00:19 [facility] 12/13 23:42 Order name: O2 Sat Monitoring; Complete Time: 00:19 3 12/14 01:46 Order name: Urine Dipstick-Ancillary (obtain specimen); Complete Time: 01:51 3 Administered Medications: 00:18 Drug: DuoNeb (albuterol 2.5 mg, ipratropium 0.5 mg) (3:1) (2.5 mg - 0.5 mg) 3 ml Route: bs2 Nebulizer; 01:52 Follow up: Response: No adverse reaction bs2 00:18 Drug: DuoNeb (albuterol 2.5 mg, ipratropium 0.5 mg) (3:1) (2.5 mg - 0.5 mg) 3 ml Route: bs2 Nebulizer; 01:52 Follow up: Response: No adverse reaction bs2 00:18 Drug: SOLU-Medrol (methylPrednisoLONE) 125 mg Route: IVP; Site: left antecubital; bs2 01:52 Follow up: Response: No adverse reaction bs2 01:05 Not Given (Other Intervention Used): Benadryl (diphenhydrAMINE) 12.5 mg IVP once la1 01:51 Drug: Magnesium Sulfate 2 grams Route: IVPB; Infused Over: 2 hrs; Site: left bs2 antecubital; 02:47 Follow up: IV Status: Completed infusion; IV Intake: 50ml bs2 01:51 Drug: Ketorolac 15 mg Route: IVP; Site: left antecubital; bs2 01:52 Follow up: Response: No adverse reaction bs2 02:47 Drug: Tamiflu (oseltamivir) 75 mg Route: PO; bs2 02:48 Follow up: Response: No adverse reaction bs2 Disposition Summary: 12/14/20 00:39 Hospitalization Ordered Provider: Arnold Mejia sp3 Location: Telemetry/MedSurg (observation) sp3 Condition: Stable sp3 Problem: an acute exacerbation sp3 Symptoms: have worsened sp3 Bed/Room Type: Standard sp3 Hospitalization Status: Inpatient Admission(12/14/20 00:42) la1 Room Assignment: 209(12/14/20 01:51) cg Diagnosis - Moderate persistent asthma with (acute) exacerbation sp3 Forms: - Medication Reconciliation Form sp3 - SBAR form sp3 Signatures: Dispatcher [employer] EDMS Francisca Romero RN RN bb Kenn Palomares, ORDER PACKER-C ORDER PACKER-Cla1 Clarita Gamble RN RN cg Imelda Ty MD MD sp3 Bindu Conde RN RN bs2 Corrections: (The following items were deleted from the chart) 00:21 00:02 CORONAVIRUS+[id number] ordered. EDID EDMS 00:42 00:39 Observation sp3 la1 01:51 00:39 sp3 cg
[2020-12-14] MEDS ORDERED: ALBUTEROL 2.5 MG/3 ML NEB SOL ONE (01:05)
[2020-12-14] MEDS ORDERED: IPRATROPIUM BROM 0.5MG/2.5ML ONE (01:05)
[2020-12-14] MEDS ORDERED: METHYLPREDNISOLONE 125 MG INJ ONE (01:06)
--- NOTE | 2020-12-14 01:11 | P.HP ---
Certification for Inpatient Patient admitted to: Inpatient With expected LOS: >2 Midnights Patient will require the following post-hospital care: None Practitioner: I am a practitioner with admitting privileges, knowledge of patient current condition, hospital course, and medical plan of care. Services: Services provided to patient in accordance with Admission requirements found in Title 42 Section 412.3 of the Code of Federal Regulations Patient History Date of Service: 12/14/20 Reason for admission: Asthma exacerbation History of Present Illness: 40-year-old female with history of hypertension, asthma presents the emergency department for shortness of breath. Patient reports shortness of breath beginning this evening noted to be in moderate respiratory distress with expiratory wheezing upon arrival to the emergency department. Patient was evaluated emergency room and found to be hypoxic on room air with saturations in the high 80s with tachypnea, dyspnea and expiratory wheezing. Labs were significant for glucose 147 Covid test pending chest x-ray pending radiology interpretation, appears clear. Patient still dyspneic, tachypneic and mildly hypoxic after 2 rounds of breathing treatments, IV steroids and magnesium. ED provider wishes to admit for further evaluation and management of asthma exacerbation. 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 moist/pink, EOMI, Sclerae nonicteric Neck: Supple, 2+ carotid pulse no bruit, No LAD, Without JVD or thyroid abnormality Respiratory: Expiratory wheezes Cardiovascular: Regular rate/rhythm, Normal S1 S2 Capillary refill: <2 Seconds Gastrointestinal: Normal bowel sounds, No tenderness Musculoskeletal: No tenderness Integumentary: No rashes Neurological: Normal speech, Normal strength at 5/5 x4 extr, Normal tone, Normal affect Lymphatics: No axilla or inguinal lymphadenopathy - Studies Laboratory Data (last 24 hrs) 12/14/20 00:00: PT 12.1, INR 1.05 12/14/20 00:00: WBC 8.50, Hgb 12.7, Hct 39.7, Plt Count 180 12/14/20 00:00: Sodium 139, Potassium 3.6, BUN 15, Creatinine 0.57, Glucose 147 H, Magnesium 1.8, Total Bilirubin 0.2, AST 14 L, ALT 25, Alkaline Phosphatase 113 Assessment and Plan - Plan Assessment: Acute hypoxic respiratory failure secondary to asthma with exacerbation Hypertension Plan: Acute hypoxic respiratory failure secondary to asthma with exacerbation: Continue with scheduled nebs, IV steroids, incentive spirometry, ICS. As needed BiPAP. Will obtain ABG, consult pulmonology. Hypertension: Continue home medications DVT PPX: Lovenox Code status: Full Discharge Plan: Home Plan to discharge in: 48 Hours - Advance Directives Does patient have a Living Will: No Does patient have a Durable POA for Healthcare: No - Code Status/Comfort Care Code Status Assessed: Yes (Full code) Critical Care: No Time Spent Managing Pts Care (In Minutes): 55
[2020-12-14 01:50] LABS: Urine Blood 3+ (Negative); Urine Glucose Negative (Negative); Urine Protein 2+ (Negative); Urine Specific Gravity >=1.030 (1.005-1.030); Urine pH 5.5 (5.0-7.0)
[2020-12-14] MEDS ORDERED: KETOROLAC 30 MG/ML INJ ONE (02:13)
[2020-12-14] MEDS ORDERED: Magnesium Sulfate 2gm IVPB 2 G/50 ML BAG IV ONE (02:14)
[2020-12-14] MEDS: ALBUTEROL 2.5 MG/3 ML NEB SOL NEB SCH ×4 (03:19→20:20)
[2020-12-14] MEDS ORDERED: ONDANSETRON 4 MG/2 ML VIAL IV PRN (03:19)
[2020-12-14] MEDS: IPRATROPIUM BROM 0.5MG/2.5ML NEB SCH ×4 (03:19→20:20)
[2020-12-14 03:28] VITALS: BMI 59.8
[2020-12-14] MEDS ORDERED: MORPHINE 2 MG/ML SYR IV PRN (03:36)
[2020-12-14] MEDS ORDERED: OSELTAMIVIR 75 MG CAP ONE (03:41)
[2020-12-14 04:29] LABS: ALT/SGPT 24 U/L (12-78); AST/SGOT 14 U/L (15-37); Albumin 3.5 g/dL (3.4-5.0); Alkaline Phosphatase 106 U/L (45-117); BUN Blood Urea Nitrogen 14 mg/dL (7-18); Bicarbonate 26 mmol/L (21-32); Bilirubin Total 0.3 mg/dL (0.2-1.0); Glucose Level 223 mg/dL (74-106); HDL Cholesterol 40 mg/dL (40-60); LDL Cholesterol, Calculated 85 (<130); Magnesium 2.5 mg/dL (1.8-2.4); Potassium 4.2 mmol/L (3.5-5.1); Protein, Total 8.5 g/dL (6.4-8.2); Sodium Level 135 mmol/L (136-145); Thyroid Stimulating Hormone 0.353 uIU/mL (0.360-3.740)
[2020-12-14 07:06] LABS: Arterial Blood Carboxyhemoglob 0.9 % (0-1.5); Blood Gas Oxyhemoglobin 93.8 % (94-97); Blood O2 Saturation 95.4 % (92-98.5)
--- NOTE | 2020-12-14 08:32 | RAD REPORT ---
EXAM DESCRIPTION: RAD - Chest Single View - 12/14/2020 12:13 am CLINICAL HISTORY: DYSPNEA COMPARISON: May 25 TECHNIQUE: AP portable chest image was obtained 12/14/2020 12:13 am . FINDINGS: Lung volumes are low. Large body habitus and under penetrated technique accentuate the int erstitial pattern. A mild interstitial edema or infiltrate cannot be excluded. Heart size within upper normal limits for portable imaging and body habitus affects. Vascular engorg ement is not identified. Trachea is midline. No measurable pleural effusion and no pneumothorax. No acute bony abnormality seen. No acute aortic findings suspected. IMPRESSION: Limited portable study showing no peripheral mass or consolidation. Increased interstitial pattern, accentuated by exam limitations, could indicate a mild interstitial e edwina or infiltrate.
[2020-12-14] MEDS: OSELTAMIVIR 75 MG CAP PO SCH ×2 (09:21→20:20)
[2020-12-14] MEDS: METHYLPREDNISOLONE 40 MG INJ IV SCH ×2 (09:21→16:39)
[2020-12-14] MEDS: ACETAMINOPHEN 500 MG TAB PO PRN (09:21)
[2020-12-14] MEDS: ENOXAPARIN 40 MG/0.4 ML SQ SCH (09:21)
[2020-12-14] MEDS: DULERA 200/5 (MOMETASONE/FORMOTEROL) INHALER IH SCH ×2 (09:30→20:20)
--- NOTE | 2020-12-14 12:12 | P.CNS ---
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, 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 with her family - Family History Sister Medical History: Diabetes - Social History Smoking Status: Unknown if ever smoked Alcohol use: No CD- Drugs: No Caffeine use: Yes Place of Residence: Home Review of Systems is unable to be obtained Physical Examination Temp Pulse Resp BP Pulse Ox 98.9 F 102 H 30 H 138/80 94 12/14/20 08:00 12/14/20 08:00 12/14/20 08:00 12/14/20 08:00 12/14/20 08:00 General: Alert, In no apparent distress Respiratory: Diminished, Expiratory wheezes Cardiovascular: No edema, Regular rate/rhythm Laboratory Data (last 24 hrs) 12/14/20 00:00: PT 12.1, INR 1.05 12/14/20 00:00: WBC 8.50, Hgb 12.7, Hct 39.7, Plt Count 180 12/14/20 00:00: Sodium 139, Potassium 3.6, BUN 15, Creatinine 0.57, Glucose 147 H, Magnesium 1.8, Total Bilirubin 0.2, AST 14 L, ALT 25, Alkaline Phosphatase 113 - Problems (1) Respiratory failure Current Visit: Yes Status: Acute Plan: Patient is 40 years of age admitted with worsening respiratory distress presumed asthma exacerbation not sure if he takes any bronchodilators at home patient is only on lisinopril was hypoxic mildly hypercapnic continue with present treatment probably try to wean her off from BiPAP tomorrow chest x-ray clear Qualifiers: Chronicity: acute
--- NOTE | 2020-12-14 12:29 | RAD REPORT ---
EXAM DESCRIPTION: CT - Head Brain Wo Cont - 12/14/2020 6:04 am CLINICAL HISTORY: 40 years Female HEADACHE COMPARISON: CT head without contrast dated 05/25/2020 TECHNIQUE: Contiguous axial images of the brain were obtained without the administration of intraven ous contrast.This exam was performed according to our departmental dose-optimization program which in cludes use of Automated Exposure Control, adjustment of the mA and/or kV according to patient size an d/or use of iterative reconstruction technique. DLP: 833 mGy*cm FINDINGS: Brain: No acute intracranial hemorrhage. No extra-axial collection. No mass effect or samson iation. Mild prominence of the sulci and cisterns. Suggested herniation of cerebellar tonsils. [place] ding of the foramen magnum. Ventricles: Within normal limits in size. Globes and orbits: No acute abnormality. Bones: No acute osseous finding Paranasal sinuses: No air-fluid levels.. Mastoid air cells: Well pneumatized. Soft tissues: Within normal limits IMPRESSION: No acute intracranial hemorrhage, hydrocephalus or herniation. Mild cerebral volume loss. Consider MR brain if clinically indicated. Findings suggestive of Chiari I malformation. MRI brain may be of diagnostic use. Electronically signed by: Stiven Deal DO 12/14/2020 1:48 AM CDT Due to temporary technical issues with the PACS/Fluency reporting system, reports are being signed by the in house radiologists without review as a courtesy to insure prompt reporting. The interpreting radiologist is fully responsible for the content of the report.
[2020-12-14] MEDS: BENZONATATE 100 MG CAP PO PRN (20:20)
[2020-12-15] MEDS: METHYLPREDNISOLONE 40 MG INJ IV SCH (01:00)
[2020-12-15] MEDS: IPRATROPIUM BROM 0.5MG/2.5ML NEB SCH ×4 (02:45→20:00)
[2020-12-15] MEDS: ALBUTEROL 2.5 MG/3 ML NEB SOL NEB SCH ×4 (02:45→20:00)
[2020-12-15] MEDS: BENZONATATE 100 MG CAP PO PRN ×2 (04:49→20:03)
[2020-12-15 05:10] LABS: Urine Appearance CLOUDY (Clear); Urine Bilirubin NEGATIVE (Negative); Urine Blood 3+ (Negative); Urine Color YELLOW (Yellow); Urine Glucose 1+ (Negative); Urine Protein TRACE (Negative); Urine Urobilinogen 0.2 mg/dL (0.2-1.0); Urine pH 6.5 (5.0-7.0)
[2020-12-15 05:11] LABS: Urine Microscopic Reflex ORDER UMIC
[2020-12-15 05:44] LABS: Urine Bacteria <20 /HPF (<20); Urine RBC >50 /HPF (NONE SEEN); Urine Urothelial Cells <5 /HPF (NONE SEEN)
[2020-12-15 06:16] LABS: Absolute Lymphocytes (CBC) 0.9 K/uL (0.7-4.9); Basophils % 0.2 % (0-1.3); Hematocrit 36.9 % (36.0-45.0); Lymphocytes % 8.2 % (15.3-44.8); MPV 8.5 fL (7.6-11.3); RBC Red Blood Cell Count 4.26 M/uL (3.86-4.86)
[2020-12-15 06:34] LABS: ALT/SGPT 21 U/L (12-78); AST/SGOT 10 U/L (15-37); Albumin 3.2 g/dL (3.4-5.0); Alkaline Phosphatase 93 U/L (45-117); BUN Blood Urea Nitrogen 14 mg/dL (7-18); Bicarbonate 29 mmol/L (21-32); Bilirubin Total 0.2 mg/dL (0.2-1.0); Glucose Level 197 mg/dL (74-106); Magnesium 2.4 mg/dL (1.8-2.4); Potassium 4.6 mmol/L (3.5-5.1); Protein, Total 8.2 g/dL (6.4-8.2); Sodium Level 135 mmol/L (136-145)
[2020-12-15 07:02] LABS: Blood Morphology Comment NOT SEEN (NOT SEEN); Platelet Estimate ADEQ; White Blood Cell Scan OK (OK)
[2020-12-15] MEDS: predniSONE 20 MG TAB PO SCH ×2 (08:47→20:03)
[2020-12-15] MEDS: OSELTAMIVIR 75 MG CAP PO SCH ×2 (08:47→20:03)
[2020-12-15] MEDS: ENOXAPARIN 40 MG/0.4 ML SQ SCH (08:47)
[2020-12-15] MEDS: ACETAMINOPHEN 500 MG TAB PO PRN (08:47)
[2020-12-15] MEDS: DULERA 200/5 (MOMETASONE/FORMOTEROL) INHALER IH SCH ×2 (08:47→20:03)
[2020-12-15 10:31] LABS: Arterial Blood Carboxyhemoglob 1.1 % (0-1.5); Blood Gas Oxyhemoglobin 93.2 % (94-97)
--- NOTE | 2020-12-15 16:34 | P.PN ---
Subjective Date of Service: 12/15/20 Chief Complaint: Asthma exacerbation Subjective: Improving (Doign well off BIPAP) Review of Systems is unable to be obtained Physical Examination - Vital Signs Temperature: 98.1 F Blood Pressure: 126/67 Pulse: 85 Respirations: 20 Pulse Ox (%): 96 - Physical Exam General: Alert, Oriented x1 Respiratory: Expiratory wheezes Assessment & Plan - Problems (Diagnosis) (1) Respiratory failure Current Visit: Yes Status: Acute Plan: Much better off BIPAPplan for Dc home am/ now on NC O2 / Poss DC home am on pred 10 BID for 10 days and inhaler Qualifiers: Chronicity: acute
[2020-12-16] MEDS: ALBUTEROL 2.5 MG/3 ML NEB SOL NEB SCH ×4 (02:00→19:25)
[2020-12-16] MEDS: IPRATROPIUM BROM 0.5MG/2.5ML NEB SCH ×4 (02:00→19:25)
[2020-12-16 05:08] LABS: Absolute Lymphocytes (CBC) 1.8 K/uL (0.7-4.9); Basophils % 0.2 % (0-1.3); Hematocrit 35.1 % (36.0-45.0); Lymphocytes % 19.7 % (15.3-44.8); RBC Red Blood Cell Count 4.12 M/uL (3.86-4.86)
[2020-12-16 05:25] LABS: ALT/SGPT 27 U/L (12-78); AST/SGOT 14 U/L (15-37); Albumin 3.2 g/dL (3.4-5.0); Alkaline Phosphatase 88 U/L (45-117); BUN Blood Urea Nitrogen 15 mg/dL (7-18); Bicarbonate 32 mmol/L (21-32); Bilirubin Total 0.2 mg/dL (0.2-1.0); Glucose Level 156 mg/dL (74-106); Magnesium 2.3 mg/dL (1.8-2.4); Potassium 4.6 mmol/L (3.5-5.1); Protein, Total 7.7 g/dL (6.4-8.2); Sodium Level 140 mmol/L (136-145)
[2020-12-16] MEDS: predniSONE 20 MG TAB PO SCH ×2 (09:09→19:58)
[2020-12-16] MEDS: OSELTAMIVIR 75 MG CAP PO SCH ×2 (09:09→19:58)
[2020-12-16] MEDS: ENOXAPARIN 40 MG/0.4 ML SQ SCH (09:09)
[2020-12-16] MEDS: DULERA 200/5 (MOMETASONE/FORMOTEROL) INHALER IH SCH ×2 (09:10→19:58)
[2020-12-16] MEDS: ACETAMINOPHEN 500 MG TAB PO PRN (13:40)
[2020-12-16] MEDS: BENZONATATE 100 MG CAP PO PRN (19:58)
[2020-12-17] MEDS: ALBUTEROL 2.5 MG/3 ML NEB SOL NEB SCH ×3 (01:30→13:46)
[2020-12-17] MEDS: IPRATROPIUM BROM 0.5MG/2.5ML NEB SCH ×3 (01:30→13:46)
[2020-12-17 09:04] VITALS: O2SAT 96
[2020-12-17] MEDS: predniSONE 20 MG TAB PO SCH (10:10)
[2020-12-17] MEDS: OSELTAMIVIR 75 MG CAP PO SCH (10:10)
[2020-12-17] MEDS: DULERA 200/5 (MOMETASONE/FORMOTEROL) INHALER IH SCH (10:10)
[2020-12-17] MEDS: ENOXAPARIN 40 MG/0.4 ML SQ SCH (10:11)
--- NOTE | 2020-12-17 11:41 | P.PN ---
Subjective Date of Service: 12/15/20 PATIENT STILL VERY SHORT OF BREATH. STILL TACHYPNEIC. Review of Systems 10-point ROS is otherwise unremarkable Physical Examination - Vital Signs Temperature: 97.3 F Blood Pressure: 160/82 Pulse: 65 Respirations: 22 Pulse Ox (%): 97 - Physical Exam General: Alert, In no apparent distress, Oriented x3 HEENT: Atraumatic, PERRLA, EOMI Neck: Supple, JVD not distended Respiratory: Clear to auscultation bilaterally, Normal air movement Cardiovascular: Regular rate/rhythm, Normal S1 S2 Gastrointestinal: Normal bowel sounds, No tenderness Musculoskeletal: No tenderness Integumentary: No rashes Neurological: Normal speech, Normal tone, Normal affect Lymphatics: No axilla or inguinal lymphadenopathy - Studies Medications List Reviewed: Yes Assessment & Plan - Problems (Diagnosis) (1) Influenzal pneumonia Current Visit: Yes Status: Acute (2) Asthma Current Visit: Yes Status: Acute - Plan PLAN: 1. CONTINUE WITH TAMIFLU 2. CONTINUE WITH NEB TREATMENTS 3. CONTINUE WITH STEROIDS 4. WEAN OFF OF BIPAP 5. REPEAT CHEST X-RAY 6. GI AND DVT PROPHYLAXIS Discharge Plan: Home Plan to discharge in: Greater than 2 days - Advance Directives Does patient have a Living Will: No Does patient have a Durable POA for Healthcare: No - Code Status/Comfort Care Code Status Assessed: Yes Code Status: Full Code Critical Care: No Time Spent Managing PTS Care (In Minutes): 35
--- NOTE | 2020-12-17 11:42 | P.PN ---
Date of Service: 12/16/20 Subjective PATIENT DOING WELL. FEELING BETTER. POSSIBLE DISCHARGE IN THE MORNING Review of Systems 10-point ROS is otherwise unremarkable Physical Examination - Vital Signs REVIEWED - Physical Exam General: Alert, In no apparent distress, Oriented x3 Respiratory: Clear to auscultation bilaterally, Normal air movement Cardiovascular: Regular rate/rhythm, Normal S1 S2 Gastrointestinal: Normal bowel sounds, No tenderness Neurological: Normal speech, Normal tone, Normal affect Assessment & Plan - Problems (Diagnosis) (1) Influenzal pneumonia Current Visit: Yes Status: Acute (2) Asthma Current Visit: Yes Status: Acute - Plan PLAN: CONTINUE PLAN OF CARE MENTIONED BELOW: 1. CONTINUE WITH TAMIFLU 2. CONTINUE WITH NEB TREATMENTS 3. CONTINUE WITH STEROIDS 4. WEAN OFF OF BIPAP 5. REPEAT CHEST X-RAY 6. GI AND DVT PROPHYLAXIS Discharge Plan: Home Plan to discharge in: Greater than 2 days - Advance Directives Does patient have a Living Will: No Does patient have a Durable POA for Healthcare: No - Code Status/Comfort Care Code Status Assessed: Yes Code Status: Full Code Critical Care: No Time Spent Managing PTS Care (In Minutes): 35
[2020-12-17 13:04] VITALS: BP 152/74; TEMP 97
== END 2020-12-17 13:45 | disposition home or self-care (01) | DRG 202 ==
LOC: ER 23:36 → ERHOLD 12-14 00:48 → 2ND 12-14 01:58
PROVIDERS: ADMIT Hospitalist; ATTEND Hospitalist
PROC: 5A09457 Assistance with Respiratory Ventilation, 24-96 Consecutive Hours, Continuous Positive Airway Pressure (ICD-10-PCS; principal; 2020-12-14)
DX: J45.901 Unspecified asthma with (acute) exacerbation (principal); J96.01 Acute respiratory failure with hypoxia; J96.02 Acute respiratory failure with hypercapnia; J10.1 Influenza due to other identified influenza virus with other respiratory manifestations; I10 Essential (primary) hypertension; Z20.822 Contact with and (suspected) exposure to COVID-19
CPT/HCPCS: 36415; 70450; 71045; 80048; 80053; 80061; 80076; 81003; 81015; 82805; 83605; 83735; 83880; 84439; 84443; 84484; 85025; 85610; 87040; 87077; 87086; 87088; 87186; 87804; 93005; 94010; 94640; 94660; 94760; 96365; 96375; 99285; J1650; J2920; J2930; J3475; J7512; J7606; U0003

== ENCOUNTER 2021-03-31 11:20 | Emergency (ER) | payer OTHER, SELFPAY ==
--- OUTSIDE RECORDS SUMMARY | 2021-03-31 11:25 | XMS REPORT | Continuity of Care Document ---
:1980 Author Organization [facility] t Address [address] [place] [address] Care Team Providers Name Role Phone Magda Gilliam Attending Clinician Tamika Vieira DO Attending Clinician Jenaro MERINO Attending Clinician Sarah VIEIRA Attending Clinician Unavailable Prema Mendoza MD Attending Clinician Misael DEVINE Attending Clinician Prema MENDOZA Attending Clinician Unavailable Jenaro MERINO Admitting Clinician Misael DEVINE Admitting Clinician Advance Directives Directive Decision Effective Termination Comments Source Date Date Healthcare Agents on N/A Univ ersity FileNameRelationshipHealthcare [facility] Agent Medical RelationshipCommunicationJose Branch Charlie RosalesSpouse1 - Legal [phone] (Mobile) Problems Condition Condition Condition Status Onset Resolution Last Treating Co mments Source Name Details Category Date Date Treatment Clinician Date Shortness Shortness Disease Active Uni vers of breath of breath 5-27 ity of 00:: [address] Pneumonia Pneumonia Disease Active Uni vers 5-27 ity of 00:: [address] RESENDIZ RESENDIZ Disease Active Univers (dyspnea (dyspnea 5-27 ity of on on 00:00: [place] exertion) exertion) [address] [place] [address] Tachycardi Tachycardi Disease Active U nivers a a 5-27 ity of 00:00: [address] Essential Essential Disease Active Uni vers hypertensi hypertensi 5-27 it y of on on 00:00: [address] Normal Normal Disease Active Univers delivery delivery 09-13 ity of 00:00: [place] 00 Medical Branch Screening Screening Disease Active Overview: Univers for for 09-02 Formattin ity of diabetes diabetes 00:00: g of this Kike as mellitus mellitus 00 note Medica l might be Branch different from the original. 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 33-34 33-34 Disease Active Univers completed completed ity of weeks of weeks of [place] gestation( gestation( Fl dical 765.27) 765.27) Branch Body mass Body mass Disease Active Uni vers index 40 index 40 ity of and over, and over, Jerel s adult adult [facility] Carrier or Carrier or Disease Active U nivers suspected suspected ity of carrier of carrier of xa group B group B Medical Streptococ Streptococ Br anch cus cus Insufficie Insufficie Disease Active U nivers nt nt ity of [facility] [place] Morbid Morbid Disease Active Univers obesity obesity ity of [facility] Other Other Disease Active Univers abnormal abnormal ity of glucose glucose [facility] Other Other Disease Active Univers ity of screening screening [place] [facility] Screening Screening Disease Active Uni vers examinatio examinatio it y of n for n for [place] rubella rubella [facility] Supervisio Supervisio Disease Active U nivers n of other n of other it y of normal normal [place] [facility] Branch Allergies, Adverse Reactions, Alerts Allergy Allergy Status Severity Reaction(s) Onset Inactive Treating Comm ents Source Name Type Date Date Clinician NO KNOWN Drug Active Univers ALLERGIE Class ity of S [facility] Social History Social Habit Start Date Stop Date Quantity Comments Source Exposure to Not sure [facility] SARS-CoV-2 [facility] (event) Branch Tobacco use and 2020-07-27 2020-07-27 Never used Universit y of exposure 00:00:00 00:00:00 [facility] Alcohol intake 2020-07-27 2020-07-27 Ex-drinker University 00:00:00 00:00:00 (finding) [facility] Sex Ass[birth year] At [birth year] Universit y of 00:00:00 00:00:00 [facility] Smoking Status Start Date Stop Date Source Never smoker [facility] Medications Ordered Filled Start Stop Current Ordering Indication Dosage Frequency Signature Comments Components Source Medication Medication Date Date Medication? Clinician (SIG) Name Name methylPREDN 2020-0 Yes [id number] Take by [facility] ISolone 4 6-15 mouth ity of mg tablets 00:00: [place]INSTRU [place] CT[place]. Medical follow Branch package directions methylPREDN 2020-0 Yes [id number] Take by Univers ISolone 4 6-15 mouth ity of mg tablets 00:00: SEE-INSTRU [place] 00 CTIONS. Medical follow Branch package directions methylPREDN 2020-0 Yes 40mg 40 mg, Univ ers ISolone sod 6-14 Intravenou it y of succ 19:00: s, Q8H, [place] (SOLU-MEDRO 00 First dose Me dical L (PF)) on Mon Branch injection 07/27/20 at 40 mg 1400, Until Discontinu ed, Routine iopamidol 2020- No [id number] 100mL 100 mL, [facility] (ISOVUE 07-27-14 Intravenou ity o f 370-500 mL) 16:30: 15:12 s, ONCE, 1 [place] injection 00 :00 dose, [facility] Medic al 100 mL 07/27/20 at Branch 1130, Routine lisinopriL 0 Yes 40mg 40 mg, Unive rs (PRINIVIL,Z 6-14 Oral, ity of ESTRIL) 14:00: DAILY, [place] tablet 40 00 First dose Medi charles mg on Mon Branch 07/27/20 at 0900, Until Discontinu ed hydroCHLORO 0 Yes 12.5mg 12.5 mg, [facility] thiazide 6-14 Oral, ity of (ESIDRIX) 14:00: DAILY, [place] capsule 00 First dose Medica l 12.5 mg on Mon Branch 07/27/20 at 0900, Until Discontinu ed, Routine ipratropium 0 Yes 3mL 3 mL, Unive rs -albuteroL 14 Inhalation ity of (DUONEB) 13:00: , QID, [place] 0.5 mg-3 00 First dose Medic al mg(2.5 mg on [facility] Branch base)/3 mL 07/27/20 at nebulizer 0800, solution 3 Until mL Discontinu ed, Routine enoxaparin 2020-0 Yes 40mg 40 mg, Unive rs (LOVENOX) 6-14 Subcutaneo ity of injection 13:00: us, Q12H, [place] as 40 mg 00 First dose Medical on [facility] Branch 07/27/20 at 0800, Until Discontinu ed, Routine docusate Yes 100mg 100 mg, Unive rs (COLACE) 07-27 Oral, ity of capsule 100 10:20: QDAILYPRN, [place] mg 17 Starting Medical [facility] Branch 07/27/20 at 0520, Until Discontinu ed, Routine, Constipati on HYDROcodone 2020- No 1{tbl} 1 tablet, Univers -acetaminop 07-27 Oral, ity of hen (NORCO 10:20: 10:19 Q6HPRN, [place] as 5) 5-325 mg 07 :07 Starting Medi charles tablet 1 [facility] tablet 07/27/20 at 0520, Until 07/29/20 at 0519, Routine, Pain (scale 4-6) acetaminoph Yes 650mg 650 mg, Un harriet en 07-27 Oral, ity of (TYLENOL) 10:19: Q6HPRN, [place] tablet 650 59 Starting Medic al mg [facility] 07/27/20 at 0519, Until Discontinu ed, Routine, Pain (scale 1-3), Temp > 38.5 C albuterol 2020- No 5mg 5 mg, Univer s (PROVENTIL) 07-27 Inhalation i ty of 2.5 mg /3 08:30: 08:41 , ONCE, 1 [place] mL (0.083 00 :00 dose, Mon Medic al %) 07/27/20 at [place] nebulizer 0330, STAT solution 5 mg albuterol 2020- No 5mg 5 mg, Univer s (PROVENTIL) 07-27 Inhalation i ty of 2.5 mg /3 07:15: 07:13 , ONCE, 1 [place] mL (0.083 00 :00 dose, Mon Medic al %) 07/27/20 at [place] nebulizer 0215, STAT solution 5 mg magnesium 2020- No 2g 2 g, IV Univ ers sulfate in 07-27 Piggyback, it y of water 2 07:15: 07:15 ONCE, 1 [place] gram/50 mL 00 :00 dose, Mon Medi charles (4 %) 07/27/20 at [place] infusion 2 0215, g Routine methylpredn No 125mg 125 mg, IV Univers isolone sod 07-27 Piggyback, i ty of succ 07:15: 06:08 ONCE, 1 [place] (SOLU-MEDRO 00 :00 dose, Mon Med ical L) 07/27/20 at [place] injection 0215, STAT 125 mg ipratropium No .5mg 0.5 mg, Un harriet (ATROVENT) 07-27 Inhalation it y of 0.02 % 06:15: 06:06 , ONCE, 1 [place] nebulizer 00 :00 dose, Mon Medic al solution 07/27/20 at [facility] h 0.5 mg 0115, LOGAN albuterol No 7.5mg 7.5 mg, Uni vers (PROVENTIL) 07-27 Inhalation i ty of 2.5 mg /3 06:15: 06:06 , ONCE, 1 [place] mL (0.083 00 :00 dose, Mon Medic al %) 07/27/20 at [place] nebulizer 0115, STAT solution 7.5 mg predniSONE 2020- No [id number] 40mg Take 2 Univers 20 mg 07-15 tablets by ity of tablet 00:00: 04:59 mouth [place] 00 :00 daily for Medical 4 days. [place] levoFLOXaci Yes 750mg 750 mg, Un harriet n 07-14 Oral, Q24H ity of (LEVAQUIN) 16:45: ABX, First [place] tablet 750 00 dose on Medica l mg 07/14/20 Branch at 1145, Until Discontinu ed, LOGAN
Re ason for Anti-Infec tive: Documented Infection< br>Documen romero Infection Site: Respirator y
Durat ion of Therapy: 7 days predniSONE 2020- No 20mg Take 20 mg Univers 20 mg 07-14 by mouth ity of tablet 15:41: 00:00 daily. [place] 01 :00 Medical Branch albuterol 2020- No Inhale. [facility] ers sulfate 07-14 ity of (PROAIR 15:35: 00:00 [place] DIGIHALER) 54 :00 Medical 90 Branch mcg/actuati on aebs azithromyci 2020- No 1{packe Take 1 Univers n 07-14 t} Packet by ity of (ZITHROMAX) 15:35: 00:00 mouth once [place] 1 gram 54 :00 now. Medical powder Branch azithromyci 2020- No 500mg Take 500 Univers n 07-14 mg by ity of (ZITHROMAX) 15:35: 00:00 mouth [place] 500 mg 54 :00 daily. Medical tablet Branch predniSONE Yes 40mg 40 mg, [facility] rs (DELTASONE) 07-14 Oral, ity of tablet 40 14:00: DAILY, [place] mg 00 First dose Medical on Mon Branch 07/14/20 at 0900, Until Discontinu ed, Routine Sliding Yes Subcutaneo [facility] ers Scale 07-14 us, TID ity of Insulin - 02:00: MEALS+HS, [place] as Lispro 00 First dose Medical (HumaLOG) + on Mon Branch Fsbg 07/13/20 at Testing 2100, Until Discontinu ed, Routine levoFLOXaci Yes [id number] 750mg Take 1 Univers n 750 mg - tablet by ity of tablet 00:00: mouth [place] 00 every 24 Medical (twenty-fo Branch ur) hours. albuterol Yes [id number] 2{puff} Inhale 2 Univers 90 -01 Puffs ity of mcg/actuati 00:00: every 4 [place] as on inhaler 00 (four) Medical hours as Branch needed for Wheezing or Shortness of Breath. levoFLOXaci Yes [id number] 750mg Take 1 Univers n 750 mg - tablet by ity of tablet 00:00: mouth [place] 00 every 24 Medical (twenty-fo Branch ur) hours. albuterol Yes [id number] 2{puff} Inhale 2 Univers 90 6-01 Puffs ity of mcg/actuati 00:00: every 4 [place] as on inhaler 00 (four) Medical hours as Branch needed for Wheezing or Shortness of Breath. levoFLOXaci 0 Yes [id number] 750mg Take 1 Univers n 750 mg 6-01 tablet by ity of tablet 00:00: mouth [place] 00 every 24 Medical (twenty-fo Branch ur) hours. albuterol Yes [id number] 2{puff} Inhale 2 Univers 90 6-01 Puffs ity of mcg/actuati 00:00: every 4 [place] as on inhaler 00 (four) Medical hours as Branch needed for Wheezing or Shortness of Breath. levoFLOXaci Yes [id number] 750mg Take 1 Univers n 750 mg 6-01 tablet by ity of tablet 00:00: mouth [place] 00 every 24 Medical (twenty-fo Branch ur) hours. albuterol Yes [id number] 2{puff} Inhale 2 Univers 90 6-01 Puffs ity of mcg/actuati 00:00: every 4 [place] as on inhaler 00 (four) Medical hours as Branch needed for Wheezing or Shortness of Breath. lisinopriL 2020- No [id number] 40mg Take 1 Univers 40 mg -02 19-02 tablet by ity of tablet 00:00: 04:59 mouth [place] 00 :00 daily for Medical 30 days. Branch hydroCHLORO 2020- No [id number] 12.5mg Take 1 Univers thiazide 07-14- capsule by ity of 12.5 mg 00:00: 04:59 mouth [place] capsule 00 :00 daily for Medical 30 days. Branch lisinopriL 2020- No [id number] 40mg Take 1 Univers 40 mg -02 19-02 tablet by ity of tablet 00:00: 04:59 mouth [place] 00 :00 daily for Medical 30 days. Branch hydroCHLORO 2020- No [id number] 12.5mg Take 1 Univers thiazide -02 19- capsule by ity of 12.5 mg 00:00: 04:59 mouth [place] capsule 00 :00 daily for Medical 30 days. Branch lisinopriL 2020- No [id number] 40mg Take 1 Univers 40 mg 6-02 19-02 tablet by ity of tablet 00:00: 04:59 mouth [place] 00 :00 daily for Medical 30 days. Branch hydroCHLORO 2020- No [id number] 12.5mg Take 1 Univers thiazide 07-14 capsule by ity of 12.5 mg 00:00: 04:59 mouth [place] capsule 00 :00 daily for Medical 30 days. Branch lisinopriL 2020- No [id number] 40mg Take 1 Univers 40 mg 07-14 tablet by ity of tablet 00:00: 04:59 mouth [place] 00 :00 daily for Medical 30 days. Branch hydroCHLORO 2020- No [id number] 12.5mg Take 1 Univers thiazide 07-14 capsule by ity of 12.5 mg 00:00: 04:59 mouth [place] capsule 00 :00 daily for Medical 30 days. [place] glucagon Yes 1mg 1 mg, Univers (GLUCAGEN 07-13 Intramuscu ity of DIAGNOSTIC 23:16: lar, PRN, [place] KIT) 28 Starting Medical injection [address] [facility] 07/13/20 at 1816, Until Discontinu ed, LOGAN, Blood Glucose < or = 70 mg/dL and patient is unable to swallow or has mental changes. dextrose 50 Yes 25mL 25 mL, Univ ers % in water 07-13 Slow IV ity of (D50W) 23:16: Push, PRN, [place] injection 28 Starting Medica l 25 mL Mon [place] 07/13/20 at 1816, Until Discontinu ed, LOGAN, Blood Glucose < or = 70 mg/dL and patient is unable to swallow or has mental status changes. lisinopriL Yes 20mg 20 mg, Unive rs (PRINIVIL,Z 07-12 Oral, ity of ESTRIL) 14:00: DAILY, [place] tablet 20 00 First dose Medi charles mg (after [place] last modificati on) on 07/12/20 at 0900, Until Discontinu ed, Routine furosemide 2020- No 20mg 20 mg, Univ ers (LASIX) 07-12 05-30 Slow IV ity of injection 01:00: 02:08 Push, [place] 20 mg 00 :00 ONCE, 1 Medical dose, Sat [place] 07/11/20 at 2000, Routine zolpidem Yes 5mg 5 mg, Univers (AMBIEN) 07-11 Oral, ity of tablet 5 mg 23:15: QHSPRN, [place] as 57 Starting Medical [facility] 07/11/20 at 1815, Until Discontinu ed, Routine, Insomnia amLODIPine Yes 10mg 10 mg, Unive rs (NORVASC) 07-11 Oral, ity of tablet 10 21:00: DAILY, [place] mg 00 First dose Medical on [facility] 07/11/20 at 1600, Until Discontinu ed, Routine methylpredn 2020- No 60mg 60 mg, Uni vers isolone sod 07-11 Slow IV ity of succ 17:30: 23:16 Push, Q6H, [place] (SOLU-MEDRO 00 :03 First dose Me dical L) on [facility] injection 07/11/20 at 60 mg 1230, Until Discontinu ed, Routine albuterol Yes 2.5mg 2.5 mg, Univ ers (PROVENTIL) 07-11 Inhalation it y of 2.5 mg /3 17:04: , Q2HPRN, [place] as mL (0.083 47 Starting Medica l %) [facility] nebulizer 07/11/20 at solution 1204, 2.5 mg Until Discontinu ed, Routine, Shortness of Breath, Wheezing enoxaparin Yes 40mg 40 mg, Unive rs (LOVENOX) 07-09 Subcutaneo ity of injection 22:00: us, DAILY, [place] 40 mg 00 First dose Medical on [facility] 07/09/20 at 1700, Until Discontinu ed, Routine lisinopriL 2020- No 10mg 10 mg, Univ ers (PRINIVIL,Z 07-09 Oral, ity of ESTRIL) 14:00: 20:46 DAILY, [place] tablet 10 00 :45 First dose Medi charles mg on [facility] 07/09/20 at 0900, Until Discontinu ed, Routine predniSONE No 50mg 50 mg, Univ ers (DELTASONE) 07-09 Oral, ity of tablet 50 14:00: 23:57 DAILY, [place] mg 00 :50 First dose Medical on [facility] 07/09/20 at 0900, Until Discontinu ed, Routine NaCl 0.9% Yes 1000mL at 50 Unive rs (NS) IV 5-27 mL/hr, IV ity of infusion 13:30: Infusion, [place] 1,000 mL 00 CONTINUOUS Medic al , Starting Branch [place] 07/09/20 at 0830, Until Discontinu ed, Routine docusate Yes 100mg 100 mg, Unive rs (COLACE) 07-09 Oral, BID, ity o f capsule 100 13:00: First dose [place] mg 00 on [facility] Medical 07/09/20 at Branch 0800, Until Discontinu ed, Routine ipratropium 2020- No 3mL 3 mL, Univ ers -albuteroL 07-09 Inhalation it y of (DUONEB) 13:00: 08:57 , QID, [place] 0.5 mg-3 00 :36 First dose Medic al mg(2.5 mg on [facility] Branch base)/3 mL 07/09/20 at nebulizer 0800, solution 3 Until mL Discontinu ed, Routine ipratropium No 3mL 3 mL, Univ ers -albuteroL 07-09 Inhalation it y of (DUONEB) 13:00: 08:57 , QID, [place] 0.5 mg-3 00 :36 First dose Medic al mg(2.5 mg on [facility] Branch base)/3 mL 07/09/20 at nebulizer 0800, solution 3 Until mL Discontinu ed, Routine piperacilli 2020- No 3.375g 3.375 g, Univers n-tazobacta 07-09 0601 IV ity of m (ZOSYN) 10:00: 15:26 Piggyback, [place] 3.375 g in 00 :41 Q6H ABX, Medic al NaCl 0.9% First dose Bran ch (NS) 100 mL on [facility] MINI-BAG 07/09/20 at 0500, Until Discontinu ed, 100 mL
R rosario for Anti-Infec tive: Empiric Therapy for Suspected Infection< br>Empiric Therapy Site: Respirator y
Durat ion of therapy: 7 days ondansetron Yes 4mg 4 mg, Slow Univers (ZOFRAN 07-09 IV Push, ity of (PF)) 09:03: Q6HPRN, [place] injection 4 54 Starting Medi charles mg [place] Branch 07/09/20 at 0403, Until Discontinu ed, Routine, Nausea and Vomiting (N/V) budesonide 0 Yes .5mg 0.5 mg, Univ ers (PULMICORT 07-09 Inhalation ity of RESPULE) 09:00: , BID, [place] nebulizer 00 First dose Medi charles solution on [place] Branch 0.5 mg 07/09/20 at 0400, Until Discontinu ed, Routine
[place] tribunal member approving Restricted medication : MEGADC ipratropium Yes 3mL 3 mL, Unive rs -albuteroL 07-09 Inhalation ity of (DUONEB) 09:00: , Q4H, [place] 0.5 mg-3 00 First dose Medic al mg(2.5 mg (after Branch base)/3 mL last nebulizer modificati solution 3 on) on [place] mL 07/09/20 at 0400, Until Discontinu ed, Routine albuterol 2020- No 2.5mg 2.5 mg, Uni vers (PROVENTIL) 07-09 Inhalation i ty of 2.5 mg /3 09:00: 07:56 , ONCE, 1 [place] mL (0.083 00 :00 dose, [facility] Medic al %) 07/09/20 at [place] nebulizer 0400, STAT solution 2.5 mg magnesium 2020- No 2g 2 g, IV Univ ers sulfate in 07-09 Piggyback, it y of water 2 06:45: 06:25 ONCE, 1 [place] gram/50 mL 00 :00 dose, [place] Medi charles (4 %) 07/09/20 at Branch infusion 2 0145, g Routine methylpredn 2020- No 125mg 125 mg, IV Univers isolone sod 07-09 Piggyback, i ty of succ 06:45: 05:31 ONCE, 1 [place] (SOLU-MEDRO 00 :00 dose, [place] Med ical L) 07/09/20 at Branch injection 0145, STAT 125 mg levoFLOXaci 2020- No 750mg 750 mg, IV Univers n in D5W 07-09 Piggyback, ity of (LEVAQUIN) 06:30: 08:02 Administer [place] 750 mg/150 00 :00 over 90 Medica l mL Minutes, Branch Piggyback ONCE, 1 750 mg dose, [place] 07/09/20 at 0130, LOGAN
Re ason for Anti-Infec tive: Empiric Therapy for Suspected Infection< br>Empiric Therapy Site: Respirator y
Durat ion of therapy: 72 hours Vital Signs Vital Name Observation Time Observation Value Comments Source Heart rate 2020-07-28 16:41:00 78 /min [facility] Respiratory rate 2020-07-28 16:41:00 18 /min [facility] saturation in 2020-07-28 16:41:00 90 /min University of Arterial blood by [facility] Pulse oximetry Branch Systolic blood 2020-07-28 16:38:00 129 mm[Hg] Univer sity of [facility] Diastolic blood 2020-07-28 16:38:00 69 mm[Hg] Unive rsity of [facility] Body temperature 2020-07-28 16:38:00 36.83 Madhuri [facility] Body height 2020-07-27 10:06:00 157.5 cm [facility] Body weight 2020-07-27 10:06:00 137.939 kg [facility] BMI 2020-07-27 10:06:00 55.62 kg/m2 [facility] Respiratory rate 2020-07-14 16:45:00 20 /min Univ ersity [facility] Oxygen saturation in 2020-07-14 16:45:00 100 /min University of Arterial blood by [facility] Pulse oximetry Branch Systolic blood 2020-07-14 16:10:00 140 mm[Hg] Univer sity of [facility] Diastolic blood 2020-07-14 16:10:00 88 mm[Hg] Unive rsity of [facility] Heart rate 2020-07-14 16:10:00 72 /min [facility] Body temperature 2020-07-14 16:10:00 36.17 Madhuri [facility] Body weight 2020-07-14 08:35:00 135.489 kg [facility] Procedures Procedure Date / Time Performing Clinician Source Performed CT ANGIOGRAM CHEST 2020-07-27 15:16:47 Vitaliy Eason [facility] XR CHEST 1 VW 2020-07-27 06:14:17 Tamika Vieira [facility] COVID-19 (ID NOW RAPID 2020-07-27 06:10:00 Tamika Vieira [facility] TESTING) Medical Branch LAB ONLY COVID 2020-07-27 06:10:00 Tamika Vieira [facility] INTERPRETATION [facility] TROPONIN I 2020-07-27 06:06:00 Tamika Vieira [facility] HEPATIC FUNCTION PANEL 2020-07-27 06:06:00 Tamika Vieira [facility] ([id number]) (ALB,T.PRO,BILI [facility] T,BU/BC,ALT,AST,ALK PHOS) BASIC METABOLIC PANEL 2020-07-27 06:06:00 Tamika Vieira [facility] (NA, K, CL, CO2, GLUCOSE, Medica l Branch BUN, CREATININE, CA) CBC WITH DIFF 2020-07-27 06:06:00 Tamika Vieira [facility] NOTICE OF PRIVACY 2020-07-27 06:01:19 Doctor Unassigned, [facility] PRACTICES [place] [facility] CONSENT/REFUSAL FOR 2020-07-27 05:59:48 Doctor Unassigned, [facility] DIAGNOSIS AND TREATMENT [place] [facility] POCT GLUCOSE (AUTOMATED) 2020-07-14 12:43:[address] [facility] POCT GLUCOSE (AUTOMATED) 2020-07-14 01:36:[address] [facility] COMP. METABOLIC PANEL 2020-07-12 09:39:00 Devora Douglas [facility] ([id number]) Medical Branch CBC WITH DIFF 2020-07-12 09:39:00 Mayte Addison [facility] CT THORAX WO CONTRAST 2020-07-11 18:13:55 Mayte Addison [facility] COMP. METABOLIC PANEL 2020-07-11 09:37:00 Misael rajinder [facility] ([id number] N-TERMINAL PRO-BNP 2020-07-11 09:37:00 Misael rajinder [facility] FREE T3 2020-07-11 09:37:00 Mayte Addison [facility] SPUTUM CULTURE 2020-07-10 12:15:00 Misael [facility] PNEUMOCOCCAL ANTIGEN 2020-07-10 12:13:[address] [facility] SEDIMENTATION RATE 2020-07-10 09:29:00 Misael [facility] MAGNESIUM 2020-07-10 09:28:00 Misael [facility] TROPONIN I 2020-07-10 09:28:00 Misael [facility] COMP. METABOLIC PANEL 2020-07-10 09:28:00 Msiael rajinder [facility] ([id number] CBC WITH DIFF 2020-07-10 09:28:00 Misael [facility] N-TERMINAL PRO-BNP 2020-07-10 09:28:00 Misael [facility] MYCOPLASMA PNEUMONIAE 2020-07-09 22:49:00 Mayte Addison [facility] ANTIBODY, IGM [facility] Branch TRANSTHORACIC ECHO (TTE) 2020-07-09 20:36:58 Jaden Heard [facility] ADC,CLC OR L[facility] ONLY - 2020-07-09 19:51:00 Erika Falcon [facility] INFLUENZA A & B DIRECT Medical B ranch ANTIGEN TROPONIN I 2020-07-09 19:34:00 Misael rajinder [facility] RESPIRATORY PANEL BY PCR 2020-07-09 19:30:00 Devora Douglas [facility] URINALYSIS 2020-07-09 10:50:00 Misael [facility] LEGIONELLA URINARY 2020-07-09 10:50:00 Mayte Addison [facility] ANTIGEN TST [facility] Branch URINE CULTURE 2020-07-09 10:50:00 Misael rajinder [facility] UREA NITROGEN, URINE 2020-07-09 10:50:00 Devora Douglas [facility] SODIUM, URINE RANDOM 2020-07-09 10:50:[address] [facility] PROTEIN CREAT RATIO URINE 2020-07-09 10:50:00 Devora Douglas [facility] Branch PHOSPHORUS 2020-07-09 09:41:00 Misael [facility] CREATINE KINASE 2020-07-09 09:41:00 Misael [facility] TROPONIN I 2020-07-09 09:41:00 Misael [facility] FREE T4 2020-07-09 09:41:00 Mayte Addison [facility] THYROID STIMULATING 2020-07-09 09:41:00 Devora Douglas [facility] HORMONE [facility] Branch LIPID PANEL ([id number])(TOTAL 2020-07-09 09:41:00 Devora Douglas [facility]IG[facility], HDL) PROTHROMBIN TIME / INR 2020-07-09 09:41:00 Devora Douglas [facility] N-TERMINAL PRO-BNP 2020-07-09 09:41:00 Devora Douglas [facility] PROCALCITONIN 2020-07-09 09:41:00 Misael rajinder [facility] HB ECG ROUTINE & RHYTHM 2020-07-09 09:28:10 Devora Douglas [facility] STRIP [facility] MAGNESIUM 2020-07-09 06:49:00 Cande Mendoza [facility] COMP. METABOLIC PANEL 2020-07-09 06:49:00 Cande Mendoza [facility] ([id number]) [facility] BLOOD CULTURE SCREEN 2020-07-09 06:32:00 Cande Mendoza [facility] BLOOD CULTURE SCREEN 2020-07-09 06:31:00 [facility] 2020-07-09 06:04:00 Cande Mendoza [facility] XR CHEST 1 VW 2020-07-09 05:51:20 Cande Mendoza [facility] CBC WITH DIFF 2020-07-09 05:51:00 Cande Mendoza [facility] GLYCOSYLATED HEMOGLOBIN 2020-07-09 05:51:00 Devora Douglas [facility] (A1C) Medical Branch COVID-19 (ID NOW RAPID 2020-07-09 05:51:00 Cande Mendoza [facility] TESTING) Medical Branch LAB ONLY COVID 2020-07-09 05:51:00 Cande Mendoza [facility] INTERPRETATION [facility] Encounters Start End Encounter Admission Attending Care Care Encounter Source Date/Time Date/Time Type Type Clinicians Facility Department ID 2020-07-29 2020-07-29 Transition Karin Gilliam [id number] Univers 00:00:00 00:00:00 of Care Magda Kill[place] [id number] [id number] [facility] 403 Branch 2020-07-27 2020-07-28 Hospital Tamika Vieira [facility] 1.2.84 [id number] [id number] Univers 00:57:00 14:59:00 Encounter Sandovaljonelmaurice [facility] [id number] [place] [id number] [facility] 110 Branch (CLC) 2020-07-27 2020-07-27 Emergency X ISHA [facility] ERT [id number] Univers 00:57:00 00:57:00 TAMIKA mina [facility] 2020-07-16 2020-07-16 Transition Karin Gilliam [id number] Univers 00:00:00 00:00:00 of Care Magda Killian [id number] [place] 4.2.7.2.686 [facility] [id number] [facility] 403 Branch 2020-07-09 2020-07-14 Hospital Cande Mendoza [facility] 1.2.840. [id number] Univers 00:23:00 12:00:00 Encounter Devora Douglas [id number] ity [facility] 4.2.7.2.686 [facility] [id number] [facility] 081 Branch 2020-07-09 2020-07-09 Emergency X [facility] [id number] Univers 00:23:00 00:23:00 [facility] Results Test Description Test Test Results Result Source Time Comments Comments LAB ONLY [facility] -14 InterpretationInterpretation [facility] 18:13:0 /Recommendations: Molecular Medical 5 NAAT Tests for Active [facility] Infection with the SARS-CoV-2 Virus: The patient has currently tested negative for the SARS-CoV-2 virus that causes COVID-19 illness. This most likely indicates that the patient does not have an active infection with the SARS-CoV-2 virus. However, infection is not completely ruled out as the false negative rate for molecular NAAT testing using a nasopharyngeal sample can be up to 30%, mostly dependent on the timing of sample collection in relation to illness onset and any deficiencies in sampling techniques. If the patient has symptoms concerning for COVID-19 illness, a repeat NAAT test (PCR, Rapid ID Now, etc.) should be performed, at which time the SARS-CoV-2 virus - if present - may have reached a detectable viral load (usually peaking by the end of the first week of symptoms). Tests for IgM and/or IgG Antibodies to the SARS-CoV-2 Virus: If the patient develops COVID-19 illness in the future, testing for IgM and IgG antibodies approximately 3 weeks after illness onset will likely indicate if the patient has produced antibodies to the SARS-CoV-2 virus. However, some patients may take longer to develop detectable antibodies, while some patients who were infected with SARS-CoV-2 may never develop antibodies. While antibodies to SARS-CoV-2 may provide some degree of immunity, at this time the strength and duration of the antibody response is unknown. Interpretation Result Comments:These interpretation comments are based upon all COVID-19 testing the patient has had at [facility], including molecular NAAT testing (more commonly known as PCR testing and Rapid ID Now testing) and antibody testing. It does not take into account any testing that a patient has had outside of the [facility] medical record. [facility] LABORATORY SERVICESCOVID [id number] Rapid ID NOW (no units) ? ? Date ? Value ? 07/27/2020 ? Not Detected ? ? ? 07/09/2020 ? Not Detected ? [facility] LABORATORY SERVICES CT ANGIOGRAM 2020-07 CT SCAN OF THE CHEST WITH Christiana CHEST -14 CONTRAST PULMONARY EMBOLISM of [place] 16:35:5 PROTOCOL HISTORY: Chest pain Medical 8 and shortness of breath. Branch TECHNIQUE: CT scan of the chest is performed following intravenousadministration of 100 mL of Isovue-370 using pulmonary embolism protocol.Sagittal coronal and axial MIP reconstruction is performed. COMPARISON: 07/11/2020 Radiation Dose: DLP of 530 mGy-cm. FINDINGS: Contrast opacification of the pulmonary arteries is suboptimal,however there is no evidence of a large central PE to the level of proximalsegmental branches. Pulmonary artery is normal in caliber. Heart size is normal. No pericardial effusion is seen. There is no evidenceof right heart strain. Thoracic aorta is normal in size. The thyroid gland and the lower neck is normal. A few nonspecific lymphnodes are seen in the mediastinum, not enlarged by CT criteria. The central airway is normal. Generalized groundglass appearance is notedto the lungs. No pleural effusion pleural thickening or pneumothorax is noted. The visualized abdominal organs are grossly normal. Changes of spondylosis are seen in the thoracic spine. CONCLUSIONS: 1. Limited study, grossly no evidence of a large central PTE to the levelof proximal segmental branches2. Scattered areas of groundglass appearance in both lungs are exaggeratedby expiratory nature of the exam. Possibility of mild pulmonary edema orsmall airway disease should be considered. [facility], Radiant Results Inft User - 07/27/2020 11:[address] SCAN OF THE CHEST WITH CONTRAST PULMONARY EMBOLISM PROTOCOLHISTORY: Chest pain and shortness of breath.TECHNIQUE: CT scan of the chest is performed following intravenousadministration of 100 mL of Isovue-370 using pulmonary embolism protocol.Sagittal coronal and axial MIP reconstruction is performed.COMPARISON: 07/11/2020adiation Dose: DLP of 530 mGy-cm. FINDINGS: Contrast opacification of the pulmonary arteries is suboptimal,however there is no evidence of a large central PE to the level of proximalsegmental branches. Pulmonary artery is normal in caliber.Heart size is normal. No pericardial effusion is seen. There is no evidenceof right heart strain. Thoracic aorta is normal in size.The thyroid gland and the lower neck is normal. A few nonspecific lymphnodes are seen in the mediastinum, not enlarged by CT criteria.The central airway is normal. Generalized groundglass appearance is notedto the lungs.No pleural effusion pleural thickening or pneumothorax is noted.The visualized abdominal organs are grossly normal.Changes of spondylosis are seen in the thoracic spine. CONCLUSIONS: 1. Limited study, grossly no evidence of a large central PTE to the levelof proximal segmental branches2. Scattered areas of groundglass appearance in both lungs are exaggeratedby expiratory nature of the exam. Possibility of mild pulmonary edema orsmall airway disease should be considered. Troponin I 2020-07-27 06:49:36 Test Item Value Reference Range Interpretation Comme nts TROPONIN I (test code = 0.004 ng/mL See_Comment [Au tomated message] The 6178140835) system which [employer] nerated this result tra nsmitted reference range : <=0.034. The reference r palmira was not used to int erpret this result as normal/abnormal . MARIPOSA (test code = MARIPOSA) Equal or Less than 0.034 ng/ml---Normal ?Note: Cardiac troponin begins to rise 3-4 hours after the onset of ischemia. Repeat in 4-6 hours if the sample was drawn within 3-4 hours of the onset of the symptom and found normal. Between 0.035 and 0.120 ng/mL--- Borderline. Questionable myocardial injury or necrosis ? ?Note: Serial measurement may be necessary to confirm or exclude the diagnosis of myocardial injury or necrosis; Clinical correlation (symptoms, EKGs, imaging studies, and others) required; Repeat in 4-6 hours if clinically indicated. ? Equal or Higher than 0.121 ng/mL---Abnormal. Myocardial Injury or Necrosis Likely ? Biotin has been reported to cause a negative bias, interpret results relative to patient's use of biotin. ? Lab Interpretation (test Normal code = 67657-0) [facility] Metabolic Panel (NA, K, CL, CO2, GLUCOSE, BUN, CREATININE, CA)2020-07-27 06:39:54 Test Item Value Reference Range Interpretation Comments NA (test code = 138 mmol/L 135-145 6542885837) K (test code = 4.2 mmol/L 3.5-5.0 2507276643) CL (test code = 100 mmol/L 98-108 3329428310) CO2 TOTAL (test code = 31 mmol/L 23-31 4828071588) AGAP (test code = 2-16 9653243400) BUN (test code = 18 mg/dL 7-23 0270903137) GLUCOSE (test code = 162 mg/dL 70-110 H 8525878990) CREATININE (test code = 0.57 mg/dL 0.50-1.04 2746566804) CALCIUM (test code = 9.3 mg/dL 8.6-10.6 7122309583) eGFR (test code = mL/min/1.73m2 8711709027) MARIPOSA (test code = MARIPOSA) Association of Glomerular Filtration Rate (GFR) and Staging of Kidney Disease* + --+ --+ ------+| GFR (mL/min/1.73 m2) ?| With Kidney Damage ?| ?Without Kidney Damage+ --------+ --------+ +| ?>90 ?| ?Stage one ?| ? Normal ?+ ---+ ---+ -------+| ?60-89 ?| ?Stage two ?| ? Decreased GFR ? + --+ --+ ------+| ?30-59 ?| ?Stage three ?| ? Stage three ? + --+ --+ ------+| ?15-29 ?| ?Stage four ? | ? Stage four ?+ ---+ ---+ -------+| ?<15 (or dialysis) ? ?| ?Stage five ? | ? Stage five ?+ ---+ ---+ -------+ *Each stage assumes the associated GFR level has been in effect for at least three months. ?Stages 1 to 5, with or without kidney disease, indicate chronic kidney disease. Notes: Determination of stages one and two (with eGFR >59mL/min/1.73 m2) requires estimation of kidney damage for at least three months as defined by structural or functional abnormalities of the kidney, manifested by either:Pathological abnormalities or Markers of kidney damage (including abnormalities in the composition of the blood or urine or abnormalities in imaging tests). Lab Interpretation Abnormal (test code = 88425-4) [facility] (ALB, T.PRO, BILI T, BU/BC, ALT, AST, ALK PHOS)2020-07-27 06:39:34 Test Item Value Reference Range Interpretation Comments TOTAL BILI (test code = 5738133205) 0.3 mg/dL 0.1-1.1 BILI UNCON (test code = 9561478942) 0.1 mg/dL 0.1-1.1 BILI CONJ (test code = 5859349616) 0.0 mg/dL 0.0-0.3 T PROTEIN (test code = 8210257126) 8.1 g/dL 6.3-8.2 ALBUMIN (test code = 3904808007) 4.3 g/dL 3.5-5.0 ALK PHOS (test code = 3652507410) 114 U/L 34-122 ALTv (test code = 1742-6) 22 U/L 5-35 AST(SGOT) (test code = 5597363293) 23 U/L 13-40 Lab Interpretation (test code = Normal 31045-9) [facility] NOW RAPID TESTING)2020-07-27 06:39:33 Test Item Value Reference Range Interpretation Comments SARS-CoV-2 Rapid ID NOW Not Detected Not Detected (test code = 40685-2) MARIPOSA (test code = MARIPOSA) ID NOW COVID-19 Assay is an isothermal nucleic acid amplification test intended for the qualitative detection of nucleic acid from SARS-CoV-2 viral RNA in nasopharyngeal (TRIMMER SORTER) specimens. It is used under Emergency Use Authorization (EUA) by FDA. The limit of detection (LOD) of the assay is 125 Genome Equivalents/mL. A positive result is indicative of the presence of SARS-CoV-2 RNA. ?Clinical correlation with patient history and other diagnostic information is necessary to determine patient infection status. A negative (Not Detected) result does not preclude SARS-CoV-2 infection. In patients with clinical symptoms and other tests that are consistent with SARS-CoV-2 infection, negative results should be treated as presumptive negative and a new specimen should be tested with alternative PCR molecular test. Invalid: Please collect a new specimen for repeat patient testing if clinically indicated. Lab Interpretation Normal (test code = 25336-9) [facility] 1 [id number] 06:38:34 No acute cardiopulmonary disease. RL: [id number]: [id number] END OF REPORT ORDERING PHYSICIAN: ISHA LOERA HISTORY: ?sob . Shortness of breath.TECHNIQUE: ?Frontal view of the chest. COMPARISON: ?None available. FINDINGS: ? The cardiomediastinal contours are unremarkable. The lungs are withoutconfluent airspace opacity, mass, or effusion. The osseous structures areunremarkable. Comb, Radiant Results Inft User - 07/27/2020 1:39 AM CDT ORDERING PHYSICIAN: ISHA HERNANDEZHISTORY: sob . Shortness of breath.TECHNIQUE: Frontal view of the chest.COMPARISON: None available.FINDINGS:The cardiomediastinal contours are unremarkable. The lungs are withoutconfluent airspace opacity, mass, or effusion. The osseous structures areunremarkable. IMPRESSIONNo acute cardiopulmonary disease.RL: [id number]: [id number] OF REPORT [facility] with [id number] 06:24:36 Test Item Value Reference Range Interpretation Comments WBC (test code = See_Comment [Automated 6690-2) message] The sy stem which generated this result transmitted reference range : 4.30 - 11.10 10*3/?L. The reference range was not used to interpret this result as normal/abnormal . RBC (test code = See_Comment [Automated 789-8) message] The sy stem which generated this result transmitted reference range : 3.93 - 5.25 10*6/?L. The reference range was not used to interpret this result as normal/abnormal . HGB (test code = 12.7 g/dL 11.6-15.0 718-7) HCT (test code = 40.8 % 35.7-45.2 4544-3) MCV (test code = 88.9 fL 80.6-95.5 787-2) MCH (test code = 27.7 pg 25.9-32.8 785-6) MCHC (test code = 31.1 g/dL 31.6-35.1 L 786-4) RDW-SD (test code = 49.0 fL 39.0-49.9 64177-6) RDW-CV (test code = 15.2 % 12.0-15.5 788-0) PLT (test code = See_Comment [Automated 777-3) message] The sy stem which generated this result transmitted reference range : 166 - 358 10*3/ ?L. The reference r palmira was not used to interpret this result as normal/abnormal . MPV (test code = 10.7 fL 9.5-12.9 74233-2) NRBC/100 WBC (test See_Comment [Automat ed code = 9806789423) message] The system which generated this result transmitted reference range : 0.0 - 10.0 /100 WBCs. The refer ence range was not u sed to interpret th is result as normal/abnormal . NRBC x10^3 (test code <0.01 See_Comment [Auto mated = 7657100853) message] The s ystem which generated this result transmitted reference range : 10*3/?L. The reference range was not used to interpret this result as normal/abnormal . GRAN MAT (NEUT) % 67.2 % (test code = 770-8) IMM GRAN % (test code 0.60 % = 3634308746) LYMPH % (test code = 21.7 % 736-9) MONO % (test code = 3.3 % 5905-5) EOS % (test code = 6.6 % 713-8) BASO % (test code = 0.6 % 706-2) GRAN MAT x10^3(ANC) 7.05 10*3/uL 1.88-7.09 (test code = 1939362064) IMM GRAN x10^3 (test 0.06 10*3/uL 0.00-0.06 code = 2393139269) LYMPH x10^3 (test code 2.28 10*3/uL 1.32-3.29 = 731-0) MONO x10^3 (test code 0.35 10*3/uL 0.33-0.92 = 742-7) EOS x10^3 (test code = 0.69 10*3/uL 0.03-0.39 H 711-2) BASO x10^3 (test code 0.06 10*3/uL 0.01-0.07 = 704-7) Lab Interpretation Abnormal (test code = 97298-9) [facility]2020-07-14 13:01:17 Test Item Value Reference Range Interpretation Comments POCT GLU (test code = 1417699710) 107 mg/dL 70-110 Lab Interpretation (test code = Normal 71800-0) [facility] [id number] 07:01:06 Test Item Value Reference Range Interpretation Comments Blood Culture-Aerobic No organisms No growth Previo us (test code = 57847-4) isolated prelim inary verified result was Culture In Progress on 07/09/2020 at 05 01 CDTPrevious preliminary verified result was No growth a t 24 hours on 07/10/2020 at 02 01 CDTPrevious preliminary verified result was No growth a t 48 hours on 07/11/2020 at 02 01 CDTPrevious preliminary verified result was No growth a t 72 hours on 07/12/2020 at 02 01 CDT Blood No organisms No growth Previous Culture-Anaerobic isolated preliminar y (test code = 68614-1) verifi ed result was Culture In Progress on 07/09/2020 at 05 01 CDTPrevious preliminary verified result was No growth a t 24 hours on 07/10/2020 at 03 16 CDTPrevious preliminary verified result was No growth a t 48 hours on 07/11/2020 at 03 16 CDTPrevious preliminary verified result was No growth a t 72 hours on 07/12/2020 at 02 01 CDT Lab Interpretation Normal (test code = 67992-9) [facility] [id number] 07:01:05 Test Item Value Reference Range Interpretation Comments Blood Culture-Aerobic No organisms No growth Previo us (test code = 30813-8) isolated prelim inary verified result was Culture In Progress on 07/09/2020 at 06 13 CDTPrevious preliminary verified result was No growth a t 24 hours on 07/10/2020 at 03 16 CDTPrevious preliminary verified result was No growth a t 48 hours on 07/11/2020 at 03 16 CDTPrevious preliminary verified result was No growth a t 72 hours on 07/12/2020 at 03 16 CDT Blood No organisms No growth Previous Culture-Anaerobic isolated preliminar y (test code = 07121-8) verifi ed result was Culture In Progress on 07/09/2020 at 06 13 CDTPrevious preliminary verified result was No growth a t 24 hours on 07/10/2020 at 03 16 CDTPrevious preliminary verified result was No growth a t 48 hours on 07/11/2020 at 03 16 CDTPrevious preliminary verified result was No growth a t 72 hours on 07/12/2020 at 03 16 CDT Lab Interpretation Normal (test code = 84289-9) [facility]2020-07-14 02:02:19 Test Item Value Reference Range Interpretation Comments POCT GLU (test code = 6209996738) 281 mg/dL 70-110 H Lab Interpretation (test code = Abnormal 81565-6) [facility] CenterMYCOPLASMA PNEUMONIAE ANTIBODY, [id number] 22:06:07 Test Item Value Reference Range Interpretation Comments Mycoplasma IGM (test 0.23 U/L See_Comment INTERPR ETIVE code = 5256-3) INFORMATION: ?Mycoplasma pneumoniae Ab, IgM ?0.76 U/L or less ... ....... Negative: No cl inically ?significan t amount of ?M. pneum oniae IgM antibody ?de tected. ?0.77 - 0.95 U/ L ........... Low Positive: M. pn eumoniae- ?specific I gM presumptively ?detected. Chilo ection of a ?follow-u p sample in 1-2 ?week s is recommended to ?assure reactiv ity. ?0.96 U/L or gr eater ....... Positiv e: Highly significant ?amount of M. pneumonia e- ?specific IgM a ntibody ?detected. Ho javier, low levels ? of IgM antibodies may ?occasionally p ersist for more ?th an 12 months post-infection. Performed By: ARTURO luciano[address] [place] [address] [id number] aboratory Director: Lisbet Odom MD [Aut omated message] The sy stem which generated this result transmit romero reference range : <=0.76. The reference r palmira was not used to int erpret this result as normal/abnormal . [facility] [id number] 16:48:41 Test Item Value Reference Range Interpretation Comments SPUTUM CULTURE 2+ Respiratory santhosh: (test code = 622-1) Commensal upper respiratory microorganisms only. Gram stain (test Few Epithelial cells code = 664-3) present MARIPOSA (test code = Bacterial pathogens MARIPOSA) associated with lower respiratory infections were not identified, which include Pseudomonas aeruginosa and Staphylococcus aureus (MRSA or MSSA). [facility]. METABOLIC PANEL (93545)2020-07-12 11:23:13 Test Item Value Reference Range Interpretation Comments NA (test code = 137 mmol/L 135-145 6941545539) K (test code = 4.9 mmol/L 3.5-5.0 3950945562) CL (test code = 96 mmol/L 98-108 L 4203680493) CO2 TOTAL (test code = 33 mmol/L 23-31 H 8634227752) AGAP (test code = 2-16 5860354900) BUN (test code = 13 mg/dL 7-23 7110857207) GLUCOSE (test code = 172 mg/dL 70-110 H 5967171257) CREATININE (test code = 0.40 mg/dL 0.50-1.04 L 3240545246) TOTAL BILI (test code = 0.5 mg/dL 0.1-1.6 4334491956) CALCIUM (test code = 9.4 mg/dL 8.6-10.6 0612577141) T PROTEIN (test code = 7.8 g/dL 6.3-8.2 4487501115) ALBUMIN (test code = 4.2 g/dL 3.5-5.0 8814968684) ALK PHOS (test code = 97 U/L 34-122 1062130762) ALTv (test code = 27 U/L 5-35 1742-6) AST(SGOT) (test code = 22 U/L 13-40 2773721007) eGFR (test code = mL/min/1.73m2 7214482945) MARIPOSA (test code = MARIPOSA) Association of Glomerular Filtration Rate (GFR) and Staging of Kidney Disease* + --+ --+ ------+| GFR (mL/min/1.73 m2) ?| With Kidney Damage ?| ?Without Kidney Damage+ --------+ --------+ +| ?>90 ?| ?Stage one ?| ? Normal ?+ ---+ ---+ -------+| ?60-89 ?| ?Stage two ?| ? Decreased GFR ? + --+ --+ ------+| ?30-59 ?| ?Stage three ?| ? Stage three ? + --+ --+ ------+| ?15-29 ?| ?Stage four ? | ? Stage four ?+ ---+ ---+ -------+| ?<15 (or dialysis) ? ?| ?Stage five ? | ? Stage five ?+ ---+ ---+ -------+ *Each stage assumes the associated GFR level has been in effect for at least three months. ?Stages 1 to 5, with or without kidney disease, indicate chronic kidney disease. Notes: Determination of stages one and two (with eGFR >59mL/min/1.73 m2) requires estimation of kidney damage for at least three months as defined by structural or functional abnormalities of the kidney, manifested by either:Pathological abnormalities or Markers of kidney damage (including abnormalities in the composition of the blood or urine or abnormalities in imaging tests). Lab Interpretation Abnormal (test code = 29657-3) [facility] WITH [id number] 11:03:13 Test Item Value Reference Range Interpretation Comments WBC (test code = See_Comment [Automated 0690-2) message] The sy stem which generated this result transmitted reference range : 4.30 - 11.10 10*3/?L. The reference range was not used to interpret this result as normal/abnormal . RBC (test code = See_Comment [Automated 249-8) message] The sy stem which generated this result transmitted reference range : 3.93 - 5.25 10*6/?L. The reference range was not used to interpret this result as normal/abnormal . HGB (test code = 11.8 g/dL 11.6-15.0 718-7) HCT (test code = 37.6 % 35.7-45.2 4544-3) MCV (test code = 87.6 fL 80.6-95.5 787-2) MCH (test code = 27.5 pg 25.9-32.8 785-6) MCHC (test code = 31.4 g/dL 31.6-35.1 L 786-4) RDW-SD (test code = 47.8 fL 39.0-49.9 58012-8) RDW-CV (test code = 14.9 % 12.0-15.5 788-0) PLT (test code = See_Comment [Automated 777-3) message] The sy stem which generated this result transmitted reference range : 166 - 358 10*3/ ?L. The reference r palmira was not used to interpret this result as normal/abnormal . MPV (test code = 10.8 fL 9.5-12.9 72598-9) NRBC/100 WBC (test See_Comment [Automat ed code = 7762606101) message] The system which generated this result transmitted reference range : 0.0 - 10.0 /100 WBCs. The refer ence range was not u sed to interpret th is result as normal/abnormal . NRBC x10^3 (test code <0.01 See_Comment [Auto mated = 7946366377) message] The s ystem which generated this result transmitted reference range : 10*3/?L. The reference range was not used to interpret this result as normal/abnormal . GRAN MAT (NEUT) % 87.7 % (test code = 770-8) IMM GRAN % (test code 1.60 % = 7573470822) LYMPH % (test code = 9.0 % 736-9) MONO % (test code = 1.4 % 5905-5) EOS % (test code = 0.1 % 713-8) BASO % (test code = 0.2 % 706-2) GRAN MAT x10^3(ANC) 8.92 10*3/uL 1.88-7.09 H (test code = 4085859736) IMM GRAN x10^3 (test 0.16 10*3/uL 0.00-0.06 H code = 1999025977) LYMPH x10^3 (test code 0.92 10*3/uL 1.32-3.29 L = 731-0) MONO x10^3 (test code 0.14 10*3/uL 0.33-0.92 L = 742-7) EOS x10^3 (test code = <0.03 0.03-0.39 L 711-2) BASO x10^3 (test code <0.03 0.01-0.07 = 704-7) Lab Interpretation Abnormal (test code = 04473-9) [facility] [id number] 22:18:13 Patchy groundglass opacities in the bilateral lungs with more confluentconsolidative opacities in the right lower lobe, consistent with multifocalatypical pneumonia. No pleural effusion or abscess. RL: [id number]: [id number] End of report RING PHYSICIAN: MAYTE ADDISON HISTORY: Neck, effusion, or abscess is suspected COMPARISON: None available TECHNIQUE: CT of the chest without IV contrast. CT performed with ALARA (AsLow As Reasonably Achievable)principles. FINDINGS: The heart is normal in size. There is no pleural effusion. No pericardialeffusion. ?The aorta and pulmonary artery are normal. There is nopathologic lymphadenopathy. There are patchy ground glass opacities throughout both lungs with moreconfluent consolidative opacities in the right lower lobe. No pleuraleffusion or pneumothorax. The trachea and bronchi are patent to thesegmental level. The visualized portion of the upper abdomen is normal. Osseous structuresare normal. [facility], Radiant Results Inft User - 07/11/2020 5:19 PM CDTFormatting of this note might be different from theoriginal.ORDERING PHYSICIAN: MAYTE ADDISONHISTORY: Neck, effusion, or abscess is suspectedCOMPARISON:None availableTECHNIQUE: CT of the chest without IV contrast. CT performed with ALARA (AsLow As Reasonably Achievable) principles.FINDINGS:The heart is normal in size. There is no pleural effusion. No pericardialeffusion. The aorta and pulmonary artery are normal. There is nopathologic lymphadenopathy.There are patchy ground glass opacities throughout both lungs with moreconfluent consolidative opacities in the right lower lobe. No pleuraleffusion or pneumothorax. The trachea and bronchi are patentto thesegmental level.The visualized portion of the upper abdomen is normal. Osseous structuresare normal.IMPRESSIONPatchy groundglass opacities in the bilateral lungs with more confluentconsolidative opacities in the right lower lobe, consistent with multifocalatypical pneumonia. No pleural effusion or abscess.RL: [id number]: [id number] of report [facility] [id number] 21:45:45 Test Item Value Reference Range Interpretation Comments FREE T4 (test code = See_Comment [Autom ated message] [id number]) The system [employer] h generated this result transmitted ref erence range: 0.78 - 2 .20 ng/dL:. The ref erence range was not u sed to interpret this result as normal/abnor mal. Lab Interpretation (test Normal code = 41196-4) [facility]FR [id number] 21:44:29 Test Item Value Reference Range Interpretation Comments FREE T3 (test code = 6531713978) 3.01 pg/mL 2.77-5.27 Lab Interpretation (test code = Normal 32181-9) [facility]MINAL [id number] 10:51:09 Test Item Value Reference Range Interpretation Comments NT-proBNP (test code 38 pg/mL See_Comment [Autom ated = 7011580015) message] The system which generated this result transmitted reference range : <=125. The reference range was not used to interpret this result as normal/abnormal . MARIPOSA (test code = MARIPOSA) Biotin has been reported to cause a negative bias, interpret results relative to patient's use of biotin. Lab Interpretation Normal (test code = 85823-0) [facility]. METABOLIC PANEL ([id number])2020-07-11 10:42:50 Test Item Value Reference Range Interpretation Comments NA (test code = 138 mmol/L 135-145 7893808028) K (test code = 4.5 mmol/L 3.5-5.0 0511611317) CL (test code = 101 mmol/L 98-108 5158041727) CO2 TOTAL (test code = 31 mmol/L 23-31 1819519594) AGAP (test code = 2-16 8295766742) BUN (test code = 15 mg/dL 7-23 4932501001) GLUCOSE (test code = 100 mg/dL 70-110 5761732386) CREATININE (test code = 0.46 mg/dL 0.50-1.04 L 1377716537) TOTAL BILI (test code = 0.5 mg/dL 0.1-1.6 6527938336) CALCIUM (test code = 8.9 mg/dL 8.6-10.6 5982032058) T PROTEIN (test code = 7.1 g/dL 6.3-8.2 7146478104) ALBUMIN (test code = 3.9 g/dL 3.5-5.0 4828328419) ALK PHOS (test code = 80 U/L 34-122 5194529945) ALTv (test code = 19 U/L 5-35 1742-6) AST(SGOT) (test code = 32 U/L 13-40 9274194879) eGFR (test code = mL/min/1.73m2 5193960479) MARIPOSA (test code = MARIPOSA) Association of Glomerular Filtration Rate (GFR) and Staging of Kidney Disease* + --+ --+ ------+| GFR (mL/min/1.73 m2) ?| With Kidney Damage ?| ?Without Kidney Damage+ --------+ --------+ +| ?>90 ?| ?Stage one ?| ? Normal ?+ ---+ ---+ -------+| ?60-89 ?| ?Stage two ?| ? Decreased GFR ? + --+ --+ ------+| ?30-59 ?| ?Stage three ?| ? Stage three ? + --+ --+ ------+| ?15-29 ?| ?Stage four ? | ? Stage four ?+ ---+ ---+ -------+| ?<15 (or dialysis) ? ?| ?Stage five ? | ? Stage five ?+ ---+ ---+ -------+ *Each stage assumes the associated GFR level has been in effect for at least three months. ?Stages 1 to 5, with or without kidney disease, indicate chronic kidney disease. Notes: Determination of stages one and two (with eGFR >59mL/min/1.73 m2) requires estimation of kidney damage for at least three months as defined by structural or functional abnormalities of the kidney, manifested by either:Pathological abnormalities or Markers of kidney damage (including abnormalities in the composition of the blood or urine or abnormalities in imaging tests). Lab Interpretation Abnormal (test code = 83259-4) [facility] CenterPNEUMOCOCCAL [id number] 18:45:00 Test Item Value Reference Range Interpretation Comments S. pneumoniae antigen (test code = Negative Negative 4117707975) Lab Interpretation (test code = Normal 53475-0) [facility] CenterURINE [id number] 13:39:03 Test Item Value Reference Range Interpretation Comments URINE CULTURE (test No aerobic growth (< code = 630-4) 1000 CFU/mL) [facility] CenterSEDIMENTATION [id number] 11:16:54 Test Item Value Reference Range Interpretation Comments ESR (test code = See_Comment H [Automated message] 2547210628) The system [employer] generated this result transmitted ref erence range: 0 - 20 m m/HR. The reference r palmira was not used to interpret this result as normal/abnor mal. Lab Interpretation (test Abnormal code = 32715-2) [facility] CenterTROPONIN [id number] 10:13:54 Test Item Value Reference Range Interpretation Comments TROPONIN I (test 0.001 ng/mL See_Comment [Automated code = 9117297979) message] The system which generated this result transmitted reference range : <=0.034. The reference range was not used to interpret this result as normal/abnormal . MARIPOSA (test code = Equal or Less than MARIPOSA) 0.034 ng/ml---Normal ?Note: Cardiac troponin begins to rise 3-4 hours after the onset of ischemia. Repeat in 4-6 hours if the sample was drawn within 3-4 hours of the onset of the symptom and found normal. Between 0.035 and 0.120 ng/mL--- Borderline. Questionable myocardial injury or necrosis ? ?Note: Serial measurement may be necessary to confirm or exclude the diagnosis of myocardial injury or necrosis; Clinical correlation (symptoms, EKGs, imaging studies, and others) required; Repeat in 4-6 hours if clinically indicated. ? Equal or Higher than 0.121 ng/mL---Abnormal. Myocardial Injury or Necrosis Likely ? Biotin has been reported to cause a negative bias, interpret results relative to patient's use of biotin. ? Lab Interpretation Normal (test code = 63611-8) [facility] CenterN-[facility]MINAL [id number] 10:11:17 Test Item Value Reference Range Interpretation Comments NT-proBNP (test code 76 pg/mL See_Comment [Autom ated = 8866848342) message] The system which generated this result transmitted reference range : <=125. The reference range was not used to interpret this result as normal/abnormal . MARIPOSA (test code = MARIPOSA) Biotin has been reported to cause a negative bias, interpret results relative to patient's use of biotin. Lab Interpretation Normal (test code = 81451-5) [facility]. METABOLIC PANEL (65204)2020-07-10 10:02:17 Test Item Value Reference Range Interpretation Comments NA (test code = 137 mmol/L 135-145 9530109139) K (test code = 4.7 mmol/L 3.5-5.0 5821816408) CL (test code = 103 mmol/L 98-108 7865096237) CO2 TOTAL (test code 30 mmol/L 23-31 = 8391188308) AGAP (test code = 2-16 2547584302) BUN (test code = 17 mg/dL 7-23 1440404968) GLUCOSE (test code = 107 mg/dL 70-110 1709817326) CREATININE (test code 0.51 mg/dL 0.50-1.04 = 0505103972) TOTAL BILI (test code 0.4 mg/dL 0.1-1.1 = 7822893986) CALCIUM (test code = 9.0 mg/dL 8.6-10.6 4702607786) T PROTEIN (test code 6.9 g/dL 6.3-8.2 = 3914856314) ALBUMIN (test code = 3.8 g/dL 3.5-5.0 5603668277) ALK PHOS (test code = 79 U/L 34-122 8920808169) ALTv (test code = 16 U/L 5-35 1742-6) AST(SGOT) (test code 20 U/L 13-40 = 9954692659) eGFR (test code = mL/min/1.73m2 0412414294) MARIPOSA (test code = MARIPOSA) Association of Glomerular Filtration Rate (GFR) and Staging of Kidney Disease* + + +- +| GFR (mL/min/1.73 m2) ?| With Kidney Damage ?| ?Without Kidney Damage+ ------+ ----+ ------+| ?>90 ?| ?Stage one ?| ? Normal ?+ -+ + -+| ?60-89 ?| ?Stage two ?| ? Decreased GFR ? + + +- +| ?30-59 ?| ?Stage three ?| ? Stage three ? + + +- +| ?15-29 ?| ?Stage four ? | ? Stage four ?+ -+ + -+| ?<15 (or dialysis) ? ?| ?Stage five ? | ? Stage five ?+ -+ + -+ *Each stage assumes the associated GFR level has been in effect for at least three months. ?Stages 1 to 5, with or without kidney disease, indicate chronic kidney disease. Notes: Determination of stages one and two (with eGFR >59mL/min/1.73 m2) requires estimation of kidney damage for at least three months as defined by structural or functional abnormalities of the kidney, manifested by either:Pathological abnormalities or Markers of kidney damage (including abnormalities in the composition of the blood or urine or abnormalities in imaging tests). [facility] CenterMAGNESIUM2021-05-28 10:02:17 Test Item Value Reference Range Interpretation Comments MAGNESIUM (test code = 0472696862) 2.1 mg/dL 1.7-2.4 Lab Interpretation (test code = Normal 20757-9) [facility] WITH [id number] 09:51:36 Test Item Value Reference Range Interpretation Comments WBC (test code = See_Comment H [Automated 3730-2) message] The sy stem which generated this result transmitted reference range : 4.30 - 11.10 10*3/?L. The reference range was not used to interpret this result as normal/abnormal . RBC (test code = See_Comment [Automated 769-8) message] The sy stem which generated this result transmitted reference range : 3.93 - 5.25 10*6/?L. The reference range was not used to interpret this result as normal/abnormal . HGB (test code = 11.1 g/dL 11.6-15.0 L 718-7) HCT (test code = 35.5 % 35.7-45.2 L 4544-3) MCV (test code = 88.3 fL 80.6-95.5 787-2) MCH (test code = 27.6 pg 25.9-32.8 785-6) MCHC (test code = 31.3 g/dL 31.6-35.1 L 786-4) RDW-SD (test code = 49.4 fL 39.0-49.9 02061-2) RDW-CV (test code = 15.3 % 12.0-15.5 788-0) PLT (test code = See_Comment [Automated 777-3) message] The sy stem which generated this result transmitted reference range : 166 - 358 10*3/ ?L. The reference r palmira was not used to interpret this result as normal/abnormal . MPV (test code = 10.8 fL 9.5-12.9 45900-3) NRBC/100 WBC (test See_Comment [Automat ed code = 0753227346) message] The system which generated this result transmitted reference range : 0.0 - 10.0 /100 WBCs. The refer ence range was not u sed to interpret th is result as normal/abnormal . NRBC x10^3 (test code <0.01 See_Comment [Auto mated = 7794718711) message] The s ystem which generated this result transmitted reference range : 10*3/?L. The reference range was not used to interpret this result as normal/abnormal . GRAN MAT (NEUT) % 71.0 % (test code = 770-8) IMM GRAN % (test code 0.50 % = 2381031048) LYMPH % (test code = 18.6 % 736-9) MONO % (test code = 5.8 % 5905-5) EOS % (test code = 3.7 % 713-8) BASO % (test code = 0.4 % 706-2) GRAN MAT x10^3(ANC) 8.61 10*3/uL 1.88-7.09 H (test code = 4304067916) IMM GRAN x10^3 (test 0.06 10*3/uL 0.00-0.06 code = 8204486514) LYMPH x10^3 (test code 2.26 10*3/uL 1.32-3.29 = 731-0) MONO x10^3 (test code 0.71 10*3/uL 0.33-0.92 = 742-7) EOS x10^3 (test code = 0.45 10*3/uL 0.03-0.39 H 711-2) BASO x10^3 (test code 0.05 10*3/uL 0.01-0.07 = 704-7) Lab Interpretation Abnormal (test code = 66907-0) [facility] CenterRESPIRATORY PANEL BY [id number] 07:41:20 Test Item Value Reference Range Interpretation Comments Adenovirus (test code = Negative Negative 10526-0) Coronavirus HKU1 (test Negative Negative code = 44791-6) Coronavirus NL63 (test Negative Negative code = 50341-9) Coronavirus 229E (test Negative Negative code = 13113-2) Coronavirus OC43 (test Negative Negative code = 33849-6) Human Metapneumovirus Negative Negative (test code = 43473-8) Human Negative Negative Rhinovirus/Enterovirus (test code = 44432-0) Influenza A (test code = Negative Negative 36082-0) Influenza B (test code = Negative Negative 49835-8) Parainfluenza Virus 1 Negative Negative (test code = 52180-5) Parainfluenza Virus 2 Negative Negative (test code = 98267-4) Parainfluenza Virus 3 Negative Negative (test code = 36368-5) Parainfluenza Virus 4 Negative Negative (test code = 15429-3) Respiratory Syncytial Negative Negative Virus (test code = 82720-2) Bordetella parapertussis Negative Negative (test code = 91241-0) Bordetella pertussis Negative Negative (test code = 31708-6) Chlamydia pneumoniae Negative Negative (test code = 09796-6) Mycoplasma pneumoniae Negative Negative (test code = 11052-9) MARIPOSA (test code = MARIPOSA) Negative:A negative result does not rule-out infection. ?This assay does not test for all potential infectious agents. ? Positive:A positive test result does not necessarily indicate the presence of viable organism. ? Lab Interpretation (test Normal code = 88339-7) [facility] CenterLAB ONLY COVID [id number] 06:21:45COVID DMT InterpretationInterpretation/Recommendations: Molecular NAAT Tests for Active Infection with the SARS-CoV-2 Virus: The patient has currently tested negative for the SARS-CoV-2 virus that causes COVID-19 illness. This most likely indicates that the patient does not have an active infection with the SARS-CoV-2 virus. However, infection is not completely ruled out as the false negative rate for molecular NAAT testing using a nasopharyngeal sample can be up to 30%, mostly dependent on the timing of sample collection in relation to illness onset and any deficiencies in sampling techniques. If the patient has symptoms concerning for COVID-19 illness, a repeat NAAT test (PCR, Rapid ID Now, etc.) should be performed, at which time the SARS-CoV-2 virus - if present - may have reached a detectable viral load (usually peaking by the end of the first week of symptoms). Tests for IgM and/or IgGAntibodies to the SARS-CoV-2 Virus: If the patient develops COVID-19 illness in the future, testingfor IgM and IgG antibodies approximately 3 weeks after illness onset will likely indicate if the patient has produced antibodies to the SARS-CoV-2 virus. However, some patients may take longer to develop detectable antibodies, while some patients who were infected with SARS-CoV-2 may never develop antibodies. While antibodies to SARS-CoV-2 may provide some degree of immunity, at this time the strength and duration of the antibody response is unknown. Interpretation Result Comments:These interpretation comments are based upon all COVID-19 testing the patient has had at [facility], including molecular NAAT testing (more commonly known as PCR testing and Rapid ID Now testing) and antibody testing. It does not take into account any testing that a patient has had outside of the [facility] medical record. [facility] LABORATORY SERVICESCOVID Resul [id number] Rapid ID NOW (no units) ? ? Date ? Value ? 07/09/2020 ? Not Detected ? [facility] LABORATORY SERVICES [facility] CenterLEGIONELLA URINARY ANTIGEN [id number] 23:26:39 Test Item Value Reference Range Interpretation Comments Legionella Urinary Negative Negative Antigen (test code = 5371860612) MARIPOSA (test code = MARIPOSA) Negative for L. pneumophilia serogroup I antigen in urine suggesting no recent or current infection. Infection due to Legionella cannot be ruled out since other serogroups and species may cause disease. Furthermore, antigens may not be present in urine during early stage of infection, or the level of antigen present in urine may be below the detection limit of the test. Lab Interpretation (test Normal code = 90718-8) [facility] CenterTROPONIN [id number] 21:06:36 Test Item Value Reference Range Interpretation Comments TROPONIN I (test 0.002 ng/mL See_Comment [Automated code = 4483519338) message] The system which generated this result transmitted reference range : <=0.034. The reference range was not used to interpret this result as normal/abnormal . MARIPOSA (test code = Equal or Less than MARIPOSA) 0.034 ng/ml---Normal ?Note: Cardiac troponin begins to rise 3-4 hours after the onset of ischemia. Repeat in 4-6 hours if the sample was drawn within 3-4 hours of the onset of the symptom and found normal. Between 0.035 and 0.120 ng/mL--- Borderline. Questionable myocardial injury or necrosis ? ?Note: Serial measurement may be necessary to confirm or exclude the diagnosis of myocardial injury or necrosis; Clinical correlation (symptoms, EKGs, imaging studies, and others) required; Repeat in 4-6 hours if clinically indicated. ? Equal or Higher than 0.121 ng/mL---Abnormal. Myocardial Injury or Necrosis Likely ? Biotin has been reported to cause a negative bias, interpret results relative to patient's use of biotin. ? Lab Interpretation Normal (test code = 66984-8) [facility] CenterADC,CLC OR [facility] ONLY - INFLUENZA A & B DIRECT [id number] 20:54:43 Test Item Value Reference Range Interpretation Comments Influenza A (test code = 49532-1) Negative Negative Influenza B (test code = 88564-3) Negative Negative Lab Interpretation (test code = Normal 12129-0) [facility] CenterPROCALCITONIN2021-05-27 17:02:04 Test Item Value Reference Interpretation Comments Range Procalcitonin (test <0.02 See_Comment [Automa romero code = 7504600996) message] The system which generated this result transmitted reference range: <0.07 ng/mL. The reference range was not used to interpret this result as normal/abnormal . MARIPOSA (test code = INTERPRETATION OF MARIPOSA) PROCALCITONIN RESULTS IN ADULTS >= 18 YEARS OF AGE Initiation and discontinuation of antibiotics on patients with suspected or confirmed Lower Respiratory Tract Infection in Adults >= 18 years of age. + +------ + ----+ +|Procalcit onin |Interpretation ?|Antibiotic ? ? |Considerations ? |ng/mL ? | ?|recommendation | ? + +------ + ----+ +| <0.1 ? | Bacterial ? ? ?| Strongly ? ? ?| ? | ?| infection very | discouraged ? | Overruling: ? | ?| unlikely ? ? ? | ? | ? Clinically unstable ? ? ? + +------ + ----+ ? High risk for adverse ? ? | <0.25 ?| Bacterial ? ? ?| Discouraged ? | ? outcome ? | ?| infection ? ? ?| ? | ? SEE IMPORTANT NOTE ?| ?| unlikely ? ? ? | ? | ? + +------ + ----+ +| >=0.25 ? ? ? | Bacterial ? ? ?| Encouraged ? ?| ? | ?| infection ? ? ?| ? | ? | ?| likely ? | ? | Consider treatment failure ?+ +----- + -----+ if levels does not decrease | >0.5 ? | Bacterial ? ? ?| Strongly ? ? ?| appropriately ? | ?| infection very | encouraged ? ?| ? | ?| likely ? | ? | ? + +------ + ----+ + Discontinuation of antibiotics in high-acuity patients with suspected or confirmed sepsis in Adults >= 18 years of age. + +------ + ----+ +|Procalcit onin |Interpretation ?|Antibiotic ? ? |Considerations ? |ng/mL ? | ?|recommendation | ? + +------ + ----+ +| <0.25 ?| Bacterial ? ? ?| Strongly ? ? ?| ? | ?| infection very | discouraged ? | Overruling: ? | ?| unlikely ? ? ? | ? | ? Clinically unstable ? ? ? + +------ + ----+ ? High risk for adverse ? ? | <0.5 or drop | Bacterial ? ? ?| Discouraged ? | ? outcome ? | >80% from ? ?| infection ? ? ?| ? | ? SEE IMPORTANT NOTE ?| highest PCT ?| unlikely ? ? ? | ? | ? | level ?| ?| ? | ? + +------ + ----+ +| >=0.5 ?| Bacterial ? ? ?| Encouraged ? ?| ? | ?| infection ? ? ?| ? | ? | ?| likely ? | ? | Consider treatment failure ?+ +----- + -----+ if levels does not decrease | >1.0 ? | Bacterial ? ? ?| Strongly ? ? ?| appropriately ? | ?| infection very | encouraged ? ?| ? | ?| likely ? | ? | ? + +------ + ----+ + Percentage of drop of Procalcitonin calculation for Discontinuation of antibiotics in high-acuity patients with suspected or confirmed sepsis in Adults >= 18 years of age. ? Procalcitonin highest{}-Procalcitoni n current{}Delta Procalcitonin = ___ x100% ? Procalcitonin current {} IMPORTANT NOTE: Procalcitonin may be elevated without bacterial infection by physiologic stress related to trauma, hernandez, chronic dialysis, metastatic cancer, surgery in the past seven days, malaria, some fungal infections, and some forms of vasculitis. The interpretation algorithm may not apply to patients with immunosuppression (equivalent of >10 mg of prednisone daily), HIV with CD4 cell count < 350 cells/mm3, active malignancy on systemic chemotherapy, solid organ transplant or hematopoietic stem cell transplantation, or hospital acquired pneumonia. Additionally, some clinical trials of procalcitonin have excluded patients with shock requiring vasopressor use, acute respiratory failure requiring mechanical ventilation, or those with known lung abscess/empyema. For further information please refer to:[email or web address] Lab Interpretation Normal (test code = 86892-5) [facility] CenterUREA NITROGEN, URINE [id number] 16:26:49 Test Item Value Reference Range Interpretation Comments UREA N UR (test code = 0927120651) 546 mg/dL [facility] CenterPROTEIN CREAT RATIO URINE [id number] 13:05:11 Test Item Value Reference Range Interpretation Comments T. PROT U (test code = 2888-6) 22 mg/dL CREAT U (test code = 4016776229) 28.1 mg/dL Protein/Creatinine Ratio Urine 0.0-2.0 (test code = 5545492378) [facility] CenterSODIUM, URINE [id number] 13:01:14 Test Item Value Reference Range Interpretation Comments NA URINE (test code = 0509176172) 26 mmol/L [facility] CenterXR CHEST 1 [id number] 12:40:02 Right lower lung well-demarcated consolidation concerning for lobarpneumonia or atelectasis. Preliminary Report Dictated by Resident: Evaristo B Bautista I, Sushil ?Schofield- Alcala, MD., have reviewed this study and agree withthe above report.EXAM: XR CHEST 1 VW COMPARISON: None HISTORY: Sob, hypoxia FINDINGS: Lines/Tubes: None. Lungs: A band of opacification is seen in the right lower lung. No pleurale ffusion or pneumothorax is identified. Heart/Mediastinum: The cardiomediastinal silhouette is normalin size. Bones: No acute osseous abnormality is seen. [facility], Radiant Results Inft User - 07/09/2020 7:41 AM CDT EXAM: XR CHEST 1 VWCOMPARISON: NoneHISTORY: Sob, hypoxia FINDINGS:Lines/Tubes: None.Lungs: A band of opacification is seen in the right lower lung. No pleuraleffusion or pneumothorax is identified.Heart/Mediastinum: The cardiomediastinal silhouette is normal in size.Bones: No acute osseous abnormality is seen.IMPRESSIONRight lowerlung well- demarcated consolidation concerning for lobarpneumonia or atelectasis.Preliminary Report Dictated by Resident: Sushil Vargas MD., have reviewed this study and agree withthe above report. [facility] CenterTHYROID STIMULATING [id number] 12:35:31 Test Item Value Reference Range Interpretation Comments TSH (test code = See_Comment L [Automated message] [id number]) The system [employer] generated this result transmitted ref erence range: 0.45 - 4 .70 mIU/L. The refe rence range was not u sed to interpret this result as normal/abnor mal. Lab Interpretation (test Abnormal code = 70701-4) [id number] 12:14:52 Test Item Value Reference Range Interpretation Comments NT-proBNP (test code 46 pg/mL See_Comment [Autom ated = 9643508152) message] The system which generated this result transmitted reference range : <=125. The reference range was not used to interpret this result as normal/abnormal . MARIPOSA (test code = MARIPOSA) Biotin has been reported to cause a negative bias, interpret results relative to patient's use of biotin. Lab Interpretation Normal (test code = 23383-3) [facility] 12:10:35 Test Item Value Reference Range Interpretation Comments APPEARANCE (test code = Clear Clear 3733956224) COLOR (test code = Straw Yellow A 3598609901) PH (test code = 4.8-8.0 2188320281) SP GRAVITY (test code = 1.003-1.030 5190515969) GLU U QUAL (test code = Normal Normal 5846714639) BLOOD (test code = 2+ Negative A 4640866580) KETONES (test code = Negative Negative 3066692474) PROTEIN (test code = Negative Negative 2887-8) UROBILIN (test code = Normal Normal 5990817065) BILIRUBIN (test code = Negative Negative 2155997827) NITRITE (test code = Negative Negative 1423297748) LEUK CLIFFORD (test code = Negative Negative 1180773345) RBC/HPF (test code = See_Comment H [Autom ated message] 4680393479) The system [employer] generated this result transmitted ref erence range: 0 - 3 HP F. The reference range was not used to int erpret this result as normal/abnormal . WBC/HPF (test code = See_Comment [Autom ated message] 4395499429) The system [employer] generated this result transmitted ref erence range: 0 - 5 HP F. The reference range was not used to int erpret this result as normal/abnormal . BACTERIA (test code = Negative Negative 2233813837) SQ EPITH (test code = HPF 2720803728) Lab Interpretation (test Abnormal code = 10513-8) [facility] (90098)(TOTAL CHOLESTEROL, TRIGLYCERIDES, HDL)2020-07-09 12:04:52 Test Item Value Reference Range Interpretation Comments CHOL (test code = 183 mg/dL 120-200 2156352125) HDL (test code = 61 mg/dL >50 8396427118) HDLC RATIO (test code = See_Comment [Au tomated message] 9209649428) The system [employer] generated this result transmit romero reference range : <=4.5. The refe rence range was not u sed to interpret th is result as normal/abnormal . TRIG (test code = 68 mg/dL 30-170 0798682023) LDL CHOL (test code = 108 mg/dL See_Comment [Auto mated message] 93832-2) The system [employer] generated this result transmit romero reference range : <=160. The refe rence range was not u sed to interpret th is result as normal/abnormal . VLDL (test code = 14 mg/dL 5-60 9797160452) Lab Interpretation (test Normal code = 46737-5) [facility]PH[facility]2021[facility] 12:04:52 Test Item Value Reference Range Interpretation Comments PHOSPHORUS (test code = 0823272252) 3.7 mg/dL 2.5-5.0 Lab Interpretation (test code = Normal 60377-3) [facility] CenterCREATINE [id number] 12:04:11 Test Item Value Reference Range Interpretation Comments CK (test code = 6709436446) 58 U/L 33-194 Lab Interpretation (test code = Normal 94368-1) [facility] CenterGLYCOSYLATED HEMOGLOBIN (A1C)2020-07-09 11:48:12 Test Item Value Reference Range Interpretation Comments HGB A1C (test code = 6.2 % 4.0-5.7 H 4548-4) MARIPOSA (test code = MARIPOSA) Reference RangesNormal: <5.7%Prediabetes: 5.7 - 6.4%Diabetes: > 6.5% Lab Interpretation (test Abnormal code = 69747-7) [facility] CenterTROPONIN [id number] 11:47:11 Test Item Value Reference Range Interpretation Comments TROPONIN I (test 0.000 ng/mL See_Comment [Automated code = 5793347630) message] The system which generated this result transmitted reference range : <=0.034. The reference range was not used to interpret this result as normal/abnormal . MARIPOSA (test code = Equal or Less than MARIPOSA) 0.034 ng/ml---Normal ?Note: Cardiac troponin begins to rise 3-4 hours after the onset of ischemia. Repeat in 4-6 hours if the sample was drawn within 3-4 hours of the onset of the symptom and found normal. Between 0.035 and 0.120 ng/mL--- Borderline. Questionable myocardial injury or necrosis ? ?Note: Serial measurement may be necessary to confirm or exclude the diagnosis of myocardial injury or necrosis; Clinical correlation (symptoms, EKGs, imaging studies, and others) required; Repeat in 4-6 hours if clinically indicated. ? Equal or Higher than 0.121 ng/mL---Abnormal. Myocardial Injury or Necrosis Likely ? Biotin has been reported to cause a negative bias, interpret results relative to patient's use of biotin. ? Lab Interpretation Normal (test code = 14726-7) [facility] CenterPROTHROMBIN TIME / [id number] 11:40:31 Test Item Value Reference Range Interpretation Comments PROTIME PATIENT (test See_Comment [Auto mated message] code = 5964-2) The system TRIRIGA generated this result transmitted ref erence range: 12.0 - 1 4.7 Seconds. The re ference range was not u sed to interpret this result as normal/abnor mal. INR (test code = 6301-6) Nor mal INR <1.1; Warfarin Therap eutic range 2.0 to 3. 0 or 2.5 to 3.5, dep ending upon the indica tions. Lab Interpretation (test Normal code = 67027-1) [facility] CenterMAGNESIUM2021-[facility]-27 07:28:47 Test Item Value Reference Range Interpretation Comments MAGNESIUM (test code = 3165108486) 2.5 mg/dL 1.7-2.4 H Lab Interpretation (test code = Abnormal 81116-5) [facility] CenterCOMP. METABOLIC PANEL (53264)2020-07-09 07:28:27 Test Item Value Reference Range Interpretation Comments NA (test code = 135 mmol/L 135-145 7674551415) K (test code = 4.6 mmol/L 3.5-5.0 9602374942) CL (test code = 99 mmol/L 98-108 0438795428) CO2 TOTAL (test code = 26 mmol/L 23-31 2052284717) AGAP (test code = 2-16 9050682215) BUN (test code = 17 mg/dL 7-23 5969394183) GLUCOSE (test code = 190 mg/dL 70-110 H 1148548497) CREATININE (test code = 0.42 mg/dL 0.50-1.04 L 1567387516) TOTAL BILI (test code = 0.4 mg/dL 0.1-1.9 8196964748) CALCIUM (test code = 9.5 mg/dL 8.6-10.6 5441674480) T PROTEIN (test code = 8.8 g/dL 6.3-8.2 H 0130532318) ALBUMIN (test code = 4.5 g/dL 3.5-5.0 7367255609) ALK PHOS (test code = 126 U/L 34-122 H 9506065328) ALTv (test code = 20 U/L 5-35 1742-6) AST(SGOT) (test code = 29 U/L 13-40 1264818387) eGFR (test code = mL/min/1.73m2 3376501001) MARIPOSA (test code = MARIPOSA) Association of Glomerular Filtration Rate (GFR) and Staging of Kidney Disease* + --+ --+ ------+| GFR (mL/min/1.73 m2) ?| With Kidney Damage ?| ?Without Kidney Damage+ --------+ --------+ +| ?>90 ?| ?Stage one ?| ? Normal ?+ ---+ ---+ -------+| ?60-89 ?| ?Stage two ?| ? Decreased GFR ? + --+ --+ ------+| ?30-59 ?| ?Stage three ?| ? Stage three ? + --+ --+ ------+| ?15-29 ?| ?Stage four ? | ? Stage four ?+ ---+ ---+ -------+| ?<15 (or dialysis) ? ?| ?Stage five ? | ? Stage five ?+ ---+ ---+ -------+ *Each stage assumes the associated GFR level has been in effect for at least three months. ?Stages 1 to 5, with or without kidney disease, indicate chronic kidney disease. Notes: Determination of stages one and two (with eGFR >59mL/min/1.73 m2) requires estimation of kidney damage for at least three months as defined by structural or functional abnormalities of the kidney, manifested by either:Pathological abnormalities or Markers of kidney damage (including abnormalities in the composition of the blood or urine or abnormalities in imaging tests). Lab Interpretation Abnormal (test code = 73581-1) [facility] CenterCOVID-19 (ID NOW RAPID TESTING)2020-07-09 06:30:42 Test Item Value Reference Range Interpretation Comments SARS-CoV-2 Rapid ID NOW Not Detected Not Detected (test code = 35911-4) MARIPOSA (test code = MARIPOSA) ID NOW COVID-19 Assay is an isothermal nucleic acid amplification test intended for the qualitative detection of nucleic acid from SARS-CoV-2 viral RNA in nasopharyngeal (TRIMMER SORTER) specimens. It is used under Emergency Use Authorization (EUA) by FDA. The limit of detection (LOD) of the assay is 125 Genome Equivalents/mL. A positive result is indicative of the presence of SARS-CoV-2 RNA. ?Clinical correlation with patient history and other diagnostic information is necessary to determine patient infection status. A negative (Not Detected) result does not preclude SARS-CoV-2 infection. In patients with clinical symptoms and other tests that are consistent with SARS-CoV-2 infection, negative results should be treated as presumptive negative and a new specimen should be tested with alternative PCR molecular test. Invalid: Please collect a new specimen for repeat patient testing if clinically indicated. Lab Interpretation Normal (test code = 35762-5) [facility] WITH [id number] 06:24:59 Test Item Value Reference Range Interpretation Comments WBC (test code = See_Comment H [Automated 3916-2) message] The system which generated this result transmit romero reference range : 4.30 - 11.10 10*3/?L. The reference range was not used to interpret this result as normal/abnormal . RBC (test code = See_Comment [Automated 831-8) message] The system which generated this result transmit romero reference range : 3.93 - 5.25 10*6/?L. The reference range was not used to interpret this result as normal/abnormal . HGB (test code = 14.0 g/dL 11.6-15.0 718-7) HCT (test code = 44.9 % 35.7-45.2 4544-3) MCV (test code = 88.2 fL 80.6-95.5 787-2) MCH (test code = 27.5 pg 25.9-32.8 785-6) MCHC (test code = 31.2 g/dL 31.6-35.1 L 786-4) RDW-SD (test code = 46.9 fL 39.0-49.9 53582-5) RDW-CV (test code = 14.6 % 12.0-15.5 788-0) PLT (test code = See_Comment [Automated 777-3) message] The system which generated this result transmit romero reference range : 166 - 358 10*3/ ?L. The reference range was not u sed to interpret th is result as normal/abnormal . MPV (test code = 10.9 fL 9.5-12.9 11753-3) NRBC/100 WBC (test See_Comment [Automat ed code = 5107026267) message] The system which generated this result transmit romero reference range : 0.0 - 10.0 /100 WBCs. The reference range was not used to interpret this result as normal/abnormal . NRBC x10^3 (test code See_Comment [Auto mated = 3899636699) message] The system which generated this result transmit romero reference range : 10*3/?L. The reference range was not used to interpret this result as normal/abnormal . GRAN MAT (NEUT) % 85.9 % (test code = 770-8) IMM GRAN % (test code 1.50 % = 2519092651) LYMPH % (test code = 10.9 % 736-9) MONO % (test code = 1.3 % 5905-5) EOS % (test code = 0.1 % 713-8) BASO % (test code = 0.3 % 706-2) GRAN MAT x10^3(ANC) 12.67 10*3/uL 1.88-7.09 H (test code = 5635825850) IMM GRAN x10^3 (test 0.22 10*3/uL 0.00-0.06 H code = 4061306556) LYMPH x10^3 (test code 1.61 10*3/uL 1.32-3.29 = 731-0) MONO x10^3 (test code 0.19 10*3/uL 0.33-0.92 L = 742-7) EOS x10^3 (test code = <0.03 0.03-0.39 L 711-2) BASO x10^3 (test code 0.05 10*3/uL 0.01-0.07 = 704-7) Lab Interpretation Abnormal (test code = 66279-3) [facility] CenterCritical [id number] 06:04:00Cande Mendoza MD ? ? 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 and dehydration ?Critical care was time spent personally by me on the following activities: ?Ordering and performing treatments and interventions, ordering and review of laboratory studies, ordering and review of radiographic studies, pulse oximetry, re- evaluation of patient's condition, review of old charts, obtaining history from patient or surrogate, interpretation of cardiac output measurements, examination of patient, evaluation of patient's response to treatment, discussions with consultants, development of treatment plan with patient or surrogate and blood draw for specimensUnOd[facility]"
[2021-03-31 11:50] LABS: Hematocrit 40.5 % (36.0-45.0); Lymphocytes % 12.1 % (15.3-44.8); MPV 8.1 fL (7.6-11.3); RBC Red Blood Cell Count 4.84 M/uL (3.86-4.86)
[2021-03-31] MEDS ORDERED: NA CHLORIDE 0.9% 1,000 ML ONE (11:53)
[2021-03-31 12:01] LABS: Protime INR 0.97
--- NOTE | 2021-03-31 12:06 | RAD REPORT ---
EXAM DESCRIPTION: RAD - Chest Single View - 03/31/2021 12:01 pm CLINICAL HISTORY: CHEST PAIN COMPARISON: Chest Single View dated 12/14/2020; Chest Single View dated 05/25/2020 FINDINGS: Lines: None. Lungs: No evidence of edema or pneumonia. Pleural: No significant pleural effusions or pneumothorax. Cardiac: The heart size is within normal limits. Bones: No acute fractures. Other: IMPRESSION: No acute cardiopulmonary disease.
[2021-03-31 12:13] LABS: ALT/SGPT 27 U/L (12-78); AST/SGOT 10 U/L (15-37); Albumin 3.4 g/dL (3.4-5.0); Alkaline Phosphatase 120 U/L (45-117); BUN Blood Urea Nitrogen 16 mg/dL (7-18); Bicarbonate 28 mmol/L (21-32); Bilirubin Direct 0.1 mg/dL (0-0.2); Bilirubin Total 0.4 mg/dL (0.2-1.0); Glucose Level 218 mg/dL (74-106); Magnesium 1.9 mg/dL (1.8-2.4); NT PRO-BNP 35 pg/mL (<125); Potassium 3.7 mmol/L (3.5-5.1); Protein, Total 8.1 g/dL (6.4-8.2); Sodium Level 138 mmol/L (136-145)
[2021-03-31 13:29] LABS: SARS-COV-2 RT PCR NEGATIVE (NEGATIVE)
--- NOTE | 2021-03-31 13:59 | RAD REPORT ---
EXAM DESCRIPTION: CT - Head Brain Wo Cont - 03/31/2021 1:49 pm CLINICAL HISTORY: Headache;Syncope COMPARISON: Head Brain Wo Cont dated 12/14/2020; Head Brain Wo Cont dated 05/25/2020 TECHNIQUE: All CT scans are performed using dose optimization technique as appropriate and may inclu de automated exposure control or mA/KV adjustment according to patient size. FINDINGS: No intracranial hemorrhage, hydrocephalus or extra-axial fluid collection.No areas of brai n edema or evidence of midline shift. Chiari 1 malformation versus low lying cerebellar tonsils. The paranasal sinuses and mastoids are clear. The calvarium is intact. IMPRESSION: No acute intracranial abnormality. Chiari 1 malformation versus low lying cerebellar to nsils. The finding was present on prior CTs.
--- NOTE | 2021-03-31 14:02 | RAD REPORT ---
EXAM DESCRIPTION: CT - Chest For Pe Angio - 03/31/2021 1:49 pm CLINICAL HISTORY: Chest pain;SOB COMPARISON: No comparisons FINDINGS: Chest Wall: No suspicious thyroid nodules or pathologic lymphadenopathy. Lungs: Mosaic lung attenuation. Pleura: No significant effusions or pneumothorax. Mediastinum/sarah: No pathologic lymphadenopathy. Pulmonary arteries/Aorta: No filling defect identified. No aortic aneurysm. Limited to the segmental size pulmonary arteries and larger due to patient's body habitus and motion. Heart: No significant pericardial effusion. Cardiomegaly Upper abdomen: Hepatomegaly with steatosis. Bones: No acute abnormality. All CT scans are performed using dose optimization technique as appropriate and may include automated exposure control or mA/KV adjustment according to patient size. IMPRESSION: Negative for pulmonary embolism to the level of the segmental pulmonary arteries. The rhodes bsegmental pulmonary arteries cannot be adequately evaluated as noted above. Mosaic lung attenuation which can be seen with both hypoventilation and small airways disease.
[2021-03-31] MEDS ORDERED: METHYLPREDNISOLONE 125 MG INJ ONE (14:21)
[2021-03-31] MEDS ORDERED: KETOROLAC 30 MG/ML INJ ONE (14:35)
[2021-03-31] MEDS ORDERED: DIPHENHYDRAMINE 50 MG/ML VIAL ONE (14:35)
[2021-03-31] MEDS ORDERED: METOCLOPRAMIDE 10 MG/2mL INJ ONE (14:36)
[2021-03-31 15:08] LABS: Urine Blood Negative (Negative); Urine Glucose Negative (Negative); Urine Protein Negative (Negative); Urine Specific Gravity 1.015 (1.005-1.030)
--- NOTE | 2021-03-31 16:07 | ER ---
Nurse's Notes [facility] Name: Kina Cortez Age: 40 yrs Sex: Female : 1980 Arrival Date: 03/31/2021 Time: 11:22 Bed 6 Private MD: Diagnosis: Syncope;Chest pain, unspecified;Hyperglycemia, unspecified Presentation: 03/31 11:38 Chief complaint: Patient states: Visiting family upstairs and developed shortness of ww breath and rapid response was initiated. Once in ER, patient admits to having sharp chest pain for 2- 3 days prior, headaches and shortness of breath that has progressively gotten worse. She believes that at night when she is sleeping, she stops breathing and passes out. Coronavirus screen: Vaccine status: Patient reports receiving the 2nd dose of the covid vaccine. Client denies travel out of the [place] in the last 14 days. Ebola Screen: Patient denies exposure to infectious person. Patient denies travel to an Ebola-affected area in the 21 days before illness onset. Initial Sepsis Screen: Does the patient meet any 2 criteria? No. Patient's initial sepsis screen is negative. Does the patient have a suspected source of infection? No. Patient's initial sepsis screen is negative. Risk Assessment: Do you want to hurt yourself or someone else? Patient reports no desire to harm self or others. Onset of symptoms is unknown. 11:38 Method Of Arrival: Wheelchair ww 11:38 Acuity: DOMINIC 3 ww Triage Assessment: 11:41 General: Appears uncomfortable, Behavior is cooperative, anxious. Pain: Complains of ww pain in left parietal area, right parietal area and occipital area. EENT: No signs and/or symptoms were reported regarding the EENT system. Neuro: Level of Consciousness is awake, alert, obeys commands, Oriented to person, place, time, situation, Moves all extremities. Speech is normal. Cardiovascular: Patient's skin is warm and dry. Rhythm is regular Chest pain quality is sharp, is located in substernal area. Respiratory: Reports shortness of breath Airway is patent Respiratory effort is even, unlabored, Respiratory pattern is regular, symmetrical, Onset: The symptoms/episode began/occurred gradually, the patient has moderate shortness of breath. GI: No signs and/or symptoms were reported involving the gastrointestinal system. Abdomen is obese. : No signs and/or symptoms were reported regarding the genitourinary system. Derm: Skin is intact, Skin is pink, warm \\T\\ dry. Musculoskeletal: No signs and/or symptoms reported regarding the musculoskeletal system. VICE ADMIRAL: 11:41 LMP 03/16/2021 ww Historical: - Home Meds: 11:41 lisinopril Oral [Active]; ww - PMHx: 11:41 Arthritis; Asthma; Hypertension; Pneumonia; ww - PSHx: 11:41 None; ww - Immunization history:: Adult Immunizations up to date. - Social history:: Smoking status: Patient denies any tobacco usage or history of. Screenin:43 Abuse screen: Denies threats or abuse. Denies injuries from another. Nutritional ww screening: No deficits noted. Tuberculosis screening: No symptoms or risk factors identified. Fall Risk None identified. Assessment: 12:34 Reassessment: Patient appears in no apparent distress at this time. No changes from ww previously documented assessment. Patient and/or family updated on plan of care and expected duration. Pain level reassessed. Patient is alert, oriented x 3, equal unlabored respirations, skin warm/dry/pink. son at bedside. Respiratory: Airway is patent Respiratory effort is even, unlabored, Respiratory pattern is regular, symmetrical. 13:25 Reassessment: Patient appears in no apparent distress at this time. No changes from ww previously documented assessment. Patient and/or family updated on plan of care and expected duration. Pain level reassessed. Patient is alert, oriented x 3, equal unlabored respirations, skin warm/dry/pink. son at bedside. 14:33 Reassessment: Patient appears in no apparent distress at this time. Patient and/or jd3 family updated on plan of care and expected duration. Pain level reassessed. Patient is alert, oriented x 3, equal unlabored respirations, skin warm/dry/pink. 15:40 Reassessment: Patient appears in no apparent distress at this time. Patient and/or ww family updated on plan of care and expected duration. Pain level reassessed. Patient is alert, oriented x 3, equal unlabored respirations, skin warm/dry/pink. Patient states feeling better. Patient states symptoms have improved. 16:17 Cardiovascular: Capillary refill < 3 seconds Patient's skin is warm and dry. Rhythm is ld1 regular. Respiratory: Breath sounds are clear. Vital Signs: 11:38 BP 135 / 42; Pulse 96; Resp 22; Temp 99(TE); Pulse Ox 98% ; Height 5 ft. 0 in. (152.40 ww cm); 12:30 BP 139 / 49; Pulse 86; Resp 16; Pulse Ox 98% on 1 lpm NC; ww 13:26 BP 138 / 67; Pulse 93; Resp 17; Pulse Ox 98% on 1 lpm NC; ww 14:34 BP 113 / 43; Pulse 80; Resp 18 S; Pulse Ox 96% on R/A; jd3 11:38 patient states she has no idea how much she weighs ww ED Course: 11:22 Patient arrived in ED. mr 11:29 Cirilo Quarles PA is PHCP. cp 11:29 Amadeo Dennison MD is Attending Physician. cp 11:41 Triage completed. ww 11:41 Arm band placed on right wrist. ww 11:43 Patient has correct armband on for positive identification. Bed in low position. Call ww light in reach. Side rails up X2. Adult w/ patient. panel monitor on. Pulse ox on. NIBP on. 11:43 Inserted saline lock: 20 gauge in left antecubital area, using aseptic technique. Blood ww collected. 11:48 Renata Song, RN is Primary Nurse. ww 11:49 D-Dimer Sent. ww 11:58 COVID-19/FLU A+B (Document "Date of Onset" if Symptomatic) Sent. ww 12:01 XRAY Chest (1 view) In Process Unspecified. EDMS 13:49 CT Head Brain wo Cont In Process Unspecified. EDMS 13:49 CT Chest For PE Angio In Process Unspecified. EDMS 16:17 No provider procedures requiring assistance completed. IV discontinued, intact, ld1 bleeding controlled, No redness/swelling at site. Administered Medications: 11:57 Drug: NS 0.9% 500 ml Route: IV; Rate: bolus; Site: left antecubital; ww 12:37 Follow up: IV Status: Completed infusion ke1 12:38 Follow up: Response: No adverse reaction; IV Status: Completed infusion ke1 12:37 Drug: NS 0.9% 500 ml Route: IV; Rate: 125 ml/hr; Site: left antecubital; ke1 14:25 Drug: SOLU-Medrol (methylPrednisoLONE) 125 mg Route: IVP; Site: left antecubital; ww 14:40 Drug: Reglan (metoCLOPramide) 10 mg Route: IVP; Site: left antecubital; ww 14:42 Drug: Benadryl (diphenhydrAMINE) 25 mg Route: IVP; Site: left antecubital; ww 14:44 Drug: Ketorolac 30 mg Route: IVP; Site: left antecubital; ww Output: 15:40 Urine: 1ml (Voided); Total: 1ml. ww Outcome: 16:06 Discharge ordered by MD. cp 16:17 Discharged to home ambulatory, with family. ld1 16:17 Condition: stable 16:17 Discharge instructions given to patient, Instructed on discharge instructions, follow up and referral plans. Demonstrated understanding of instructions, follow-up care. 16:18 Patient left the ED. ld1 Signatures: Dispatcher [employer] EDMS Felipe Nilda mr Cirilo Quarles PA PA cp Davies, Jonathon, RN RN jd3 Dibbern, Lauren, RN RN ld1 Renata Song RN RN ww Ebrottie, Kouassi, RN RN ke1 Corrections: (The following items were deleted from the chart) 12:38 12:36 IV Status: Completed infusion ke1 ke1
--- NOTE | 2021-03-31 16:07 | EDPHYS ---
Physician Documentation [facility] Name: Kina Cortez Age: 40 yrs Sex: Female : 1980 Arrival Date: 03/31/2021 Time: 11:22 Bed 6 Private MD: ED Physician Amadeo Dennison HPI: 03/31 11:40 This 40 yrs old Female presents to ER via Wheelchair with complaints of cp Breathing Difficulty. 11:40 The patient has shortness of breath at rest. cp 11:40 Onset: The symptoms/episode began/occurred suddenly, just prior to arrival. Duration: cp The symptoms are continuous, and are unchanged since they started. Family member reports patient was visiting who is hospitalized when she started suddenly complaining of shortness of breath, chest pain. Son reports patient passed out briefly on several occasions. 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 - Social history:: Smoking status: Patient denies any tobacco usage or history of. ROS: 11:45 Constitutional: Negative for body aches, chills, fever, poor PO intake. cp 11:45 Eyes: Negative for injury, pain, redness, and discharge. cp 11:45 ENT: Negative for ear pain, sore throat, difficulty swallowing, difficulty handling secretions. 11:45 Cardiovascular: Positive for chest pain, Negative for edema, palpitations. 11:45 Respiratory: Positive for shortness of breath, at rest. Negative for cough, wheezing. 11:45 Abdomen/GI: Negative for abdominal pain, vomiting, diarrhea, constipation. 11:45 Back: Negative for pain at rest, pain with movement. 11:45 Neuro: Positive for headache, syncope, Negative for altered mental status, numbness, weakness. 11:45 All other systems are negative. Exam: 11:51 ECG was reviewed by the Attending Physician. cp 11:55 Constitutional: The patient appears in no acute distress, alert, awake, cp non-diaphoretic, non-toxic, well developed, well nourished, obese. 11:55 Head/Face: Normocephalic, atraumatic. cp 11:55 Eyes: Periorbital structures: appear normal, Pupils: equal, round, and reactive to light and accomodation, Extraocular movements: intact throughout, Conjunctiva: normal, no exudate, no injection, Sclera: no appreciated abnormality, Lids and lashes: appear normal, bilaterally. 11:55 ENT: External ear(s): are unremarkable, Nose: is normal, Mouth: Lips: Oral mucosa: moist, Posterior pharynx: Airway: no evidence of obstruction, patent, swelling, is not appreciated, erythema, is not appreciated, exudate, is not appreciated. 11:55 Neck: ROM/movement: is normal, is supple, without pain, no range of motions limitations. 11:55 Chest/axilla: Inspection: normal, Palpation: is normal, no crepitus, no tenderness. 11:55 Cardiovascular: Rate: normal, Rhythm: regular, Edema: is not appreciated, JVD: is not appreciated. 11:55 Respiratory: the patient does not display signs of respiratory distress, Respirations: normal, no use of accessory muscles, no retractions, labored breathing, is not present, Breath sounds: are clear throughout, no decreased breath sounds, no stridor, no wheezing. 11:55 Abdomen/GI: Inspection: abdomen appears normal, Bowel sounds: active, all quadrants, Palpation: abdomen is soft and non-tender, in all quadrants. 11:55 Back: pain, is absent, ROM is normal. 11:55 Neuro: Orientation: to person, place \\T\\ time. Mentation: is normal, Cerebellar function: is grossly normal, Motor: moves all fours, strength is normal, Sensation: is normal. Vital Signs: 11:38 BP 135 / 42; Pulse 96; Resp 22; Temp 99(TE); Pulse Ox 98% ; Height 5 ft. 0 in. (152.40 ww cm); 12:30 BP 139 / 49; Pulse 86; Resp 16; Pulse Ox 98% on 1 lpm NC; ww 13:26 BP 138 / 67; Pulse 93; Resp 17; Pulse Ox 98% on 1 lpm NC; ww 14:34 BP 113 / 43; Pulse 80; Resp 18 S; Pulse Ox 96% on R/A; jd3 11:38 patient states she has no idea how much she weighs ww MDM: 11:30 Patient medically screened. cp 16:05 Data reviewed: vital signs, nurses notes, lab test result(s), EKG, radiologic studies, cp CT scan, plain films. 16:05 Test interpretation: by ED physician or midlevel provider: ECG, plain radiologic cp studies. Counseling: I had a detailed discussion with the patient and/or guardian regarding: the historical points, exam findings, and any diagnostic results supporting the discharge/admit diagnosis, lab results, radiology results, to return to the emergency department if symptoms worsen or persist or if there are any questions or concerns that arise at home. Response to treatment: the patient's symptoms have markedly improved after treatment, VS noted. Patient reports symptoms markedly improved with meds. Initial and repeat EKG and troponin negative for cardiac cause of syncope. Will discharge to home for continued monitoring. 03/31 11:30 Order name: Basic Metabolic Panel; Complete Time: 12:58 cp 03/31 12:58 Interpretation: Normal except: GLUC 218. 03/31 11:30 Order name: CBC with Diff; Complete Time: 12:58 cp 03/31 11:30 Order name: LFT's; Complete Time: 12:58 cp 03/31 11:30 Order name: Magnesium; Complete Time: 12:58 cp 03/31 11:30 Order name: NT PRO-BNP; Complete Time: 12:58 cp 03/31 11:30 Order name: PT-INR; Complete Time: 12:58 cp 03/31 11:30 Order name: Troponin HS; Complete Time: 12:58 cp 03/31 11:48 Order name: COVID-19/FLU A+B (Document "Date of Onset" if Symptomatic) 03/31 11:48 Order name: D-Dimer cp 03/31 11:48 Order name: COVID-19/FLU A+B; Complete Time: 14:12 EDMS 03/31 11:48 Order name: D-Dimer; Complete Time: 12:58 EDMS 03/31 15:08 Order name: Urine Dipstick-Ancillary; Complete Time: 16:08 EDMS 03/31 15:13 Order name: Troponin HS; Complete Time: 16:08 cp 03/31 15:27 Order name: Urine --Ancillary (enter results) bd 03/31 11:30 Order name: XRAY Chest (1 view); Complete Time: 12:58 cp 03/31 11:30 Order name: EKG; Complete Time: 11:31 cp 03/31 11:30 Order name: Cardiac monitoring; Complete Time: 11:44 cp 03/31 11:30 Order name: EKG - Nurse/Tech; Complete Time: 11:44 cp 03/31 11:30 Order name: IV Saline Lock; Complete Time: 11:44 cp 03/31 11:30 Order name: Labs collected and sent; Complete Time: 11:44 cp 03/31 11:30 Order name: O2 Per Protocol; Complete Time: 11:44 cp 03/31 11:30 Order name: O2 Sat Monitoring; Complete Time: 11:44 cp 03/31 12:59 Order name: CT Head Brain wo Cont; Complete Time: 14:12 cp 03/31 12:59 Order name: CT Chest For PE Angio; Complete Time: 14:12 cp 03/31 11:30 Order name: Urine Dipstick-Ancillary (obtain specimen); Complete Time: 15:12 cp 03/31 11:30 Order name: Urine Test (obtain specimen); Complete Time: 15:12 cp EC:51 Rate is 91 beats/min. Rhythm is regular. WA interval is normal. QRS interval is normal. cp QT interval is normal. Interpreted by me. Reviewed by me. Administered Medications: 11:57 Drug: NS 0.9% 500 ml Route: IV; Rate: bolus; Site: left antecubital; ww 12:37 Follow up: IV Status: Completed infusion ke1 12:38 Follow up: Response: No adverse reaction; IV Status: Completed infusion ke1 12:37 Drug: NS 0.9% 500 ml Route: IV; Rate: 125 ml/hr; Site: left antecubital; ke1 14:25 Drug: SOLU-Medrol (methylPrednisoLONE) 125 mg Route: IVP; Site: left antecubital; ww 14:40 Drug: Reglan (metoCLOPramide) 10 mg Route: IVP; Site: left antecubital; ww 14:42 Drug: Benadryl (diphenhydrAMINE) 25 mg Route: IVP; Site: left antecubital; ww 14:44 Drug: Ketorolac 30 mg Route: IVP; Site: left antecubital; ww Disposition Summary: 03/31/21 16:06 Discharge Ordered Location: Home cp Problem: new cp Symptoms: have improved cp Condition: Stable cp Diagnosis - Syncope cp - Chest pain, unspecified cp - Hyperglycemia, unspecified cp Followup: cp - With: Private Physician - When: 2 - 3 days - Reason: Recheck today's complaints Discharge Instructions: - Discharge Summary Sheet cp - Nonspecific Chest Pain, Adult cp - Syncope cp - Aspirin and Your Heart cp - Blood Glucose Monitoring, Adult cp Forms: - Work release form iw - Medication Reconciliation Form cp - Thank You Letter cp - Antibiotic Education cp - Prescription Opioid Use cp Addendum: 04/02/2021 19:15 Co-signature as Attending Physician, Amadeo Dennison MD I agree with the assessment and k dr plan of care. Signatures: Dispatcher [employer] EDAmadeo Rodriguez MD MD kdr Page, Corey, PA PA cp Wood, Whitney, RN RN ww Lanie Dickey RN RN ke1
[2021-03-31 16:26] LABS: Urine Specific Gravity/Preg 1.015 (1.005-1.030)
[2021-03-31 16:52] VITALS: TEMP 99
[2021-03-31 16:56] VITALS: BP 113/43; O2SAT 96
== END 2021-03-31 16:18 | disposition home or self-care (01) ==
LOC: ER 11:20
DX: R07.9 Chest pain, unspecified (principal); R55 Syncope and collapse; R73.9 Hyperglycemia, unspecified; I10 Essential (primary) hypertension
CPT/HCPCS: 96361; 93005; 85025; 80048; 36415; 83735; 81025; 85610; 85379; 80076; 81003; 84484 ×2; 83880; 0240U; 70450; 71275; 71045; 96375; 96374; 99284; Q9967; J2765; J1200; J7030; J2930

== ENCOUNTER 2021-06-07 15:43 | Emergency (ER) | payer OTHER ==
--- OUTSIDE RECORDS SUMMARY | 2021-06-07 15:48 | XMS REPORT | Continuity of Care Document ---
:1980 Author Organization [facility] t Address [address] [place] [address] Care Team Providers Name Role Phone Magda Gilliam Attending Clinician Tamika Vieira DO Attending Clinician Jenaro MERINO Attending Clinician Sarah VIEIRA Attending Clinician Unavailable Prema Mendoza MD Attending Clinician Misael DEVINE Attending Clinician Prema MENDOZA Attending Clinician Unavailable Jenaro MERINO Admitting Clinician Misael DEVINE Admitting Clinician Advance Directives Directive Decision Effective Termination Comments Source Date Date Healthcare Agents on N/A Univ ersity FileNameRelationshipHealthcare of [place] Agent Medical RelationshipCommunicationJose Branch Charlie RosalesSpouse1 - Legal [phone] (Mobile) Problems Condition Condition Condition Status Onset Resolution Last Treating Co mments Source Name Details Category Date Date Treatment Clinician Date Shortness Shortness Disease Active Uni vers of breath of breath 5-27 ity of 00:00: [place] 00 Medical Branch Pneumonia Pneumonia Disease Active Uni vers 5-27 ity of 00:00: [place] 00 Medical Branch RESENDIZ RESENDIZ Disease Active Univers (dyspnea (dyspnea 5-27 ity of on on 00:00: [place] exertion) exertion) 00 [facility] Branch Tachycardi Tachycardi Disease Active U nivers a a 5-27 ity of 00:00: [place] 00 Medical Branch Essential Essential Disease Active Uni vers hypertensi hypertensi 5-27 it y of on on 00:00: [address] Normal Normal Disease Active Univers delivery delivery 09-13 ity of 00:00: [address] Screening Screening Disease Active Overview: Univers for for 09-02 Formattin ity of diabetes diabetes 00:00: g of this Kike as mellitus mellitus 00 note Medica l might be Branch different from the original. 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 Morbid Morbid Disease Active Univers obesity obesity ity of [facility] Other Other Disease Active Univers abnormal abnormal ity of glucose glucose [facility] Other Other Disease Active Univers ity of screening screening [facility] Screening Screening Disease Active Uni vers examinatio examinatio it y of n for n for [place] rubella rubella [facility] Supervisio Supervisio Disease Active U nivers n of other n of other it y of normal normal [place] [facility] Allergies, Adverse Reactions, Alerts Allergy Allergy Status Severity Reaction(s) Onset Inactive Treating Comm ents Source Name Type Date Date Clinician NO KNOWN Drug Active Univers ALLERGIE Class ity of S [facility] Social History Social Habit Start Date Stop Date Quantity Comments Source Exposure to Not sure [facility] SARS-CoV-2 [facility] (event) Branch Tobacco use and 2020-07-27 2020-07-27 Never used Universit y of exposure 00:00:00 00:00:00 [facility] Alcohol intake 2020-07-27 2020-07-27 Ex-drinker [facility] 00:00:00 00:00:00 (finding) [facility] Sex Ass[birth year] At [birth year] Universit y of 00:00:00 00:00:00 [facility] Smoking Status Start Date Stop Date Source Never smoker [facility] [place] [facility] Medications Ordered Filled Start Stop Current Ordering Indication Dosage Frequency Signature Comments Components Source Medication Medication Date Date Medication? Clinician (SIG) Name Name methylPREDN 2020-0 Yes [id number] Take by [facility] ISolone 4 6-15 mouth ity of mg tablets 00:00: [place]INSTRU [place] CTIONS. Medical follow Branch package directions methylPREDN 2020-0 Yes [id number] Take by Univers ISolone 4 6-15 mouth ity of mg tablets 00:00: [place]-INSTRU [place] 00 CTIONS. Medical follow Branch package directions methylPREDN 2020-0 Yes 40mg 40 mg, Univ ers ISolone sod -14 Intravenou it y of succ 19:00: s, Q8H, [place] (SOLU-MEDRO 00 First dose Me dical L (PF)) on [facility] Branch injection 07/27/20 at 40 mg 1400, Until Discontinu ed, Routine iopamidol 2020-0 202- No [id number] 100mL 100 mL, [facility] (ISOVUE 07-27-14 Intravenou ity o f 370-500 mL) 16:30: 15:12 s, ONCE, 1 [place] injection 00 :00 dose, Mon Medic al 100 mL 07/27/20 at Branch 1130, Routine lisinopriL 0 Yes 40mg 40 mg, Unive rs (PRINIVIL,Z 6-14 Oral, ity of ESTRIL) 14:00: DAILY, [place] tablet 40 00 First dose Medi charles mg on [facility] Branch 07/27/20 at 0900, Until Discontinu ed hydroCHLORO 2020-0 Yes 12.5mg 12.5 mg, [facility] thiazide 14 Oral, ity of (ESIDRIX) 14:00: DAILY, [place] capsule 00 First dose Medica l 12.5 mg on [facility] Branch 07/27/20 at 0900, Until Discontinu ed, Routine ipratropium 2020-0 Yes 3mL 3 mL, Unive rs -albuteroL 07-27 Inhalation ity of (DUONEB) 13:00: , QID, [place] 0.5 mg-3 00 First dose Medic al mg(2.5 mg on [facility] Branch base)/3 mL 07/27/20 at nebulizer 0800, solution 3 Until mL Discontinu ed, Routine enoxaparin 2020-0 Yes 40mg 40 mg, Unive rs (LOVENOX) 07-27 Subcutaneo ity of injection 13:00: us, Q12H, [place] as 40 mg 00 First dose Medical on [facility] Branch 07/27/20 at 0800, Until Discontinu ed, Routine docusate Yes 100mg 100 mg, Unive rs (COLACE) 07-27 Oral, ity of capsule 100 10:20: QDAILYPRN, [place] mg 17 Starting Medical [facility] Branch 07/27/20 at 0520, Until Discontinu ed, Routine, Constipati on HYDROcodone 2020- No 1{tbl} 1 tablet, Univers -acetaminop 07-27 Oral, ity of hen (NORCO 10:20: 10:19 Q6HPRN, [place] as 5) 5-325 mg 07 :07 Starting Medi charles tablet 1 [facility] tablet 07/27/20 at 0520, Until 07/29/20 at 0519, Routine, Pain (scale 4-6) acetaminoph Yes 650mg 650 mg, Un harriet en 07-27 Oral, ity of (TYLENOL) 10:19: Q6HPRN, [place] tablet 650 59 Starting Medic al mg [facility] 07/27/20 at 0519, Until Discontinu ed, Routine, Pain (scale 1-3), Temp > 38.5 C albuterol 2020- No 5mg 5 mg, Univer s (PROVENTIL) 07-27 Inhalation i ty of 2.5 mg /3 08:30: 08:41 , ONCE, 1 [place] mL (0.083 00 :00 dose, Mon Medic al %) 07/27/20 at Start nebulizer 0330, STAT solution 5 mg albuterol 2020- No 5mg 5 mg, Univer s (PROVENTIL) 07-27 Inhalation i ty of 2.5 mg /3 07:15: 07:13 , ONCE, 1 [place] mL (0.083 00 :00 dose, Mon Medic al %) 07/27/20 at Start nebulizer 0215, STAT solution 5 mg magnesium 2020- No 2g 2 g, IV Univ ers sulfate in 07-27 Piggyback, it y of water 2 07:15: 07:15 ONCE, 1 [place] gram/50 mL 00 :00 dose, Mon Medi charles (4 %) 07/27/20 at Start infusion 2 0215, g Routine methylpredn 2020- No 125mg 125 mg, IV Univers isolone sod 07-27 Piggyback, i ty of succ 07:15: 06:08 ONCE, 1 [place] (SOLU-MEDRO 00 :00 dose, Mon Med ical L) 07/27/20 at Start injection 0215, STAT 125 mg ipratropium No .5mg 0.5 mg, Un harriet (ATROVENT) 07-27 Inhalation it y of 0.02 % 06:15: 06:06 , ONCE, 1 [place] nebulizer 00 :00 dose, Mon Medic al solution 07/27/20 at [facility] h 0.5 mg 0115, LOGAN albuterol 2020- No 7.5mg 7.5 mg, Uni vers (PROVENTIL) 07-27 Inhalation i ty of 2.5 mg /3 06:15: 06:06 , ONCE, 1 [place] mL (0.083 00 :00 dose, Mon Medic al %) 07/27/20 at Start nebulizer 0115, STAT solution 7.5 mg predniSONE 2020- No [id number] 40mg Take 2 Univers 20 mg 07-15 tablets by ity of tablet 00:00: 04:59 mouth [place] 00 :00 daily for Medical 4 days. Start levoFLOXaci Yes 750mg 750 mg, Un harriet n 07-14 Oral, Q24H ity of (LEVAQUIN) 16:45: ABX, First [place] tablet 750 00 dose on Medica l mg 07/14/20 Start at 1145, Until Discontinu ed, LOGAN
Re ason for Anti-Infec tive: Documented Infection< br>Documen romero Infection Site: Respirator y
Durat ion of Therapy: 7 days predniSONE 2020- No 20mg Take 20 mg Univers 20 mg 07-14 by mouth ity of tablet 15:41: 00:00 daily. [place] 01 :00 Medical Branch albuterol 2020- No Inhale. [facility] ers sulfate 07-14 ity of (PROAIR 15:35: 00:00 [place] DIGIHALER) 54 :00 Medical 90 Branch mcg/actuati on aebs azithromyci 2020- No 1{packe Take 1 Univers n 07-14- t} Packet by ity of (ZITHROMAX) 15:35: 00:00 mouth once [place] 1 gram 54 :00 now. Medical powder Branch azithromyci 2020- No 500mg Take 500 Univers n 07-14 mg by ity of (ZITHROMAX) 15:35: 00:00 [place] 500 mg 54 :00 daily. Medical tablet Branch predniSONE Yes 40mg 40 mg, [facility] rs (DELTASONE) 07-14 Oral, ity of tablet 40 14:00: DAILY, [place] mg 00 First dose Medical on Mon Branch 07/14/20 at 0900, Until Discontinu ed, Routine Sliding Yes Subcutaneo [facility] ers Scale 07-14 us, TID ity of Insulin - 02:00: MEALS+HS, [place] as Lispro 00 First dose Medical (HumaLOG) + on Mon Branch Fsbg 07/13/20 at Testing 2100, Until Discontinu ed, Routine levoFLOXaci Yes [id number] 750mg Take 1 Univers n 750 mg 6- tablet by ity of tablet 00:00: mouth [place] 00 every 24 Medical (twenty-fo Branch ur) hours. albuterol Yes [id number] 2{puff} Inhale 2 Univers 90 - Puffs ity of mcg/actuati 00:00: every 4 [place] as on inhaler 00 (four) Medical hours as Branch needed for Wheezing or Shortness of Breath. levoFLOXaci Yes [id number] 750mg Take 1 Univers n 750 mg 6- tablet by ity of tablet 00:00: mouth [place] 00 every 24 Medical (twenty-fo Branch ur) hours. albuterol Yes [id number] 2{puff} Inhale 2 Univers 90 - Puffs ity of mcg/actuati 00:00: every 4 [place] as on inhaler 00 (four) Medical hours as Branch needed for Wheezing or Shortness of Breath. levoFLOXaci Yes [id number] 750mg Take 1 Univers n 750 mg 6-01 tablet by ity of tablet 00:00: mouth [place] 00 every 24 Medical (twenty-fo Branch ur) hours. albuterol Yes [id number] 2{puff} Inhale 2 Univers 90 6-01 Puffs ity of mcg/actuati 00:00: every 4 [place] as on inhaler 00 (four) Medical hours as Branch needed for Wheezing or Shortness of Breath. levoFLOXaci Yes [id number] 750mg Take 1 Univers n 750 mg 6-01 tablet by ity of tablet 00:00: mouth [place] 00 every 24 Medical (twenty-fo Branch ur) hours. albuterol Yes [id number] 2{puff} Inhale 2 Univers 90 6-01 Puffs ity of mcg/actuati 00:00: every 4 [place] as on inhaler 00 (four) Medical hours as Branch needed for Wheezing or Shortness of Breath. lisinopriL 2020- No [id number] 40mg Take 1 Univers 40 mg 6-02 19-02 tablet by ity of tablet 00:00: 04:59 mouth [place] 00 :00 daily for Medical 30 days. Branch hydroCHLORO 2020- No [id number] 12.5mg Take 1 Univers thiazide -02 19- capsule by ity of 12.5 mg 00:00: 04:59 mouth [place] capsule 00 :00 daily for Medical 30 days. Branch lisinopriL 2020- No [id number] 40mg Take 1 Univers 40 mg 6-02 19-02 tablet by ity of tablet 00:00: 04:59 mouth [place] 00 :00 daily for Medical 30 days. Branch hydroCHLORO 2020- No [id number] 12.5mg Take 1 Univers thiazide 6-02 19-02 capsule by ity of 12.5 mg 00:00: 04:59 mouth [place] capsule 00 :00 daily for Medical 30 days. Branch lisinopriL 2020- No [id number] 40mg Take 1 Univers 40 mg 6-02 19-02 tablet by ity of tablet 00:00: 04:59 mouth [place] 00 :00 daily for Medical 30 days. Start hydroCHLORO 2020- No [id number] 12.5mg Take 1 Univers thiazide 07-14 capsule by ity of 12.5 mg 00:00: 04:59 mouth [place] capsule 00 :00 daily for Medical 30 days. Start lisinopriL 2020- No [id number] 40mg Take 1 Univers 40 mg 07-14 tablet by ity of tablet 00:00: 04:59 mouth [place] 00 :00 daily for Medical 30 days. Branch hydroCHLORO 2020- No [id number] 12.5mg Take 1 Univers thiazide 07-14 capsule by ity of 12.5 mg 00:00: 04:59 mouth [place] capsule 00 :00 daily for Medical 30 days. Start glucagon Yes 1mg 1 mg, Univers (GLUCAGEN 07-13 Intramuscu ity of DIAGNOSTIC 23:16: lar, PRN, [place] KIT) 28 Starting Medical injection 1 Mon [facility] 07/13/20 at 1816, Until Discontinu ed, LOGAN, Blood Glucose < or = 70 mg/dL and patient is unable to swallow or has mental changes. dextrose 50 Yes 25mL 25 mL, Univ ers % in water 07-13 Slow IV ity of (D50W) 23:16: Push, PRN, [place] injection 28 Starting Medica l 25 mL Mon Start 07/13/20 at 1816, Until Discontinu ed, LOGAN, Blood Glucose < or = 70 mg/dL and patient is unable to swallow or has mental status changes. lisinopriL Yes 20mg 20 mg, Unive rs (PRINIVIL,Z 530 Oral, ity of ESTRIL) 14:00: DAILY, [place] tablet 20 00 First dose Medi charles mg (after Start last modificati on) on 07/12/20 at 0900, Until Discontinu ed, Routine furosemide 2020- No 20mg 20 mg, Univ ers (LASIX) 07-12 05-30 Slow IV ity of injection 01:00: 02:08 Push, [place] 20 mg 00 :00 ONCE, 1 Medical dose, Sat Start 07/11/20 at 2000, Routine zolpidem 2021-0 Yes 5mg 5 mg, Univers (AMBIEN) 07-11 Oral, ity of tablet 5 mg 23:15: QHSPRN, [place] as 57 Starting Medical [facility] 07/11/20 at 1815, Until Discontinu ed, Routine, Insomnia amLODIPine Yes 10mg 10 mg, Unive rs (NORVASC) 07-11 Oral, ity of tablet 10 21:00: DAILY, [place] mg 00 First dose Medical on [facility] 07/11/20 at 1600, Until Discontinu ed, Routine methylpredn 2020- No 60mg 60 mg, Uni vers isolone sod 07-1131 Slow IV ity of succ 17:30: 23:16 Push, Q6H, [place] (SOLU-MEDRO 00 :03 First dose Me dical L) on [facility] injection 07/11/20 at 60 mg 1230, Until Discontinu ed, Routine albuterol Yes 2.5mg 2.5 mg, Univ ers (PROVENTIL) 07-11 Inhalation it y of 2.5 mg /3 17:04: , Q2HPRN, [place] as mL (0.083 47 Starting Medica l %) [facility] nebulizer 07/11/20 at solution 1204, 2.5 mg Until Discontinu ed, Routine, Shortness of Breath, Wheezing enoxaparin Yes 40mg 40 mg, Unive rs (LOVENOX) 07-09 Subcutaneo ity of injection 22:00: us, DAILY, [place] 40 mg 00 First dose Medical on [facility] 07/09/20 at 1700, Until Discontinu ed, Routine lisinopriL No 10mg 10 mg, Univ ers (PRINIVIL,Z 07-09 Oral, ity of ESTRIL) 14:00: 20:46 DAILY, [place] tablet 10 00 :45 First dose Medi charles mg on [facility] 07/09/20 at 0900, Until Discontinu ed, Routine predniSONE No 50mg 50 mg, Univ ers (DELTASONE) 07-09 0528 Oral, ity of tablet 50 14:00: 23:57 DAILY, [place] mg 00 :50 First dose Medical on [facility] 07/09/20 at 0900, Until Discontinu ed, Routine [...] 3 Until mL Discontinu ed, Routine ipratropium 2020- No 3mL 3 mL, [facility] ers -albuteroL 07-09 Inhalation it y of (DUONEB) 13:00: 08:57 , QID, [place] 0.5 mg-3 00 :36 First dose Medic al mg(2.5 mg on [facility] Branch base)/3 mL 07/09/20 at nebulizer 0800, solution 3 Until mL Discontinu ed, Routine piperacilli No 3.375g 3.375 g, Univers n-tazobacta 07-09 IV ity of m (ZOSYN) 10:00: 15:26 [...] Yes 4mg 4 mg, Slow Univers (ZOFRAN 5-27 IV Push, ity of (PF)) 09:03: Q6HPRN, [place] injection 4 54 Starting Medi charles mg [facility] Branch 07/09/20 at 0403, Until Discontinu ed, Routine, Nausea and Vomiting (N/V) budesonide 0 Yes .5mg 0.5 mg, Univ ers (PULMICORT 07-09 Inhalation ity of RESPULE) 09:00: , BID, [place] nebulizer 00 First dose Medi charles solution on [facility] Branch 0.5 mg 07/09/20 at 0400, Until Discontinu ed, Routine
history faculty member approving Restricted medication : MEGADC ipratropium Yes 3mL 3 mL, Unive rs -albuteroL 07-09 Inhalation ity of (DUONEB) 09:00: , Q4H, [place] 0.5 mg-3 00 First dose Medic al mg(2.5 mg (after Branch base)/3 mL last nebulizer modificati solution 3 on) on [facility] mL 07/09/20 at 0400, Until Discontinu ed, Routine albuterol 2020- No 2.5mg 2.5 mg, Uni vers (PROVENTIL) 07-09 Inhalation i ty of 2.5 mg /3 09:00: 07:56 , ONCE, 1 [place] mL (0.083 00 :00 dose, [facility] Medic al %) 07/09/20 at Start nebulizer 0400, STAT solution 2.5 mg magnesium 2020- No 2g 2 g, IV Univ ers sulfate in 07-09 Piggyback, it y of water 2 06:45: 06:25 ONCE, 1 [place] gram/50 mL 00 :00 dose, [facility] Medi charles (4 %) 07/09/20 at Branch infusion 2 0145, g Routine methylpredn 2020- No 125mg 125 mg, IV Univers isolone sod 07-09 Piggyback, i ty of succ 06:45: 05:31 ONCE, 1 [place] (SOLU-MEDRO 00 :00 dose, [facility] Med ical [...] Source Heart rate 2020-07-28 16:41:00 78 /min [facility] Respiratory rate 2020-07-28 16:41:00 18 /min [facility] in 2020-07-28 16:41:00 90 /min University of Arterial blood by [facility] Pulse oximetry Branch Systolic blood 2020-07-28 16:38:00 129 mm[Hg] Univer sity of [facility] Diastolic blood 2020-07-28 16:38:00 69 mm[Hg] [facility] Body temperature 2020-07-28 16:38:00 36.83 Madhuri [facility] Body height 2020-07-27 10:06:00 157.5 cm [facility] Body weight 2020-07-27 10:06:00 137.939 kg [facility] BMI 2020-07-27 10:06:00 55.62 kg/m2 [facility] Respiratory rate 2020-07-14 16:45:00 20 /min Univ ersity [facility] [place] Oxygen saturation in 2020-07-14 16:45:00 100 /min University of Arterial blood by [facility] Pulse oximetry Branch Systolic blood 2020-07-14 16:10:00 140 mm[Hg] Univer sity of [facility] Diastolic blood 2020-07-14 16:10:00 88 mm[Hg] Unive rsity [place] [facility] Heart rate 2020-07-14 16:10:00 72 /min [facility] Body temperature 2020-07-14 16:10:00 36.17 Madhuri [facility] Body weight 2020-07-14 08:35:00 135.489 kg [facility] Procedures Procedure Date / Time Performing Clinician Source Performed CT ANGIOGRAM CHEST 2020-07-27 15:16:47 Vitaliy Eason [facility] XR CHEST 1 VW 2020-07-27 06:14:17 Tamika Vieira [facility] COVID-19 (ID NOW RAPID 2020-07-27 06:10:00 Tamika Vieira [facility] TESTING) Medical Branch LAB ONLY COVID 2020-07-27 06:10:00 Tamika Vieiar [facility] INTERPRETATION [facility] TROPONIN I 2020-07-27 06:06:00 Tamika Vieira [facility] HEPATIC FUNCTION PANEL 2020-07-27 06:06:00 Tamika Vieira [facility] ([id number]) (ALB,T.PRO,BILI [facility] Branch T,BU/BC,ALT,AST,ALK PHOS) BASIC METABOLIC PANEL 2020-07-27 06:06:00 Tamika Vieira [facility] (NA, K, CL, CO2, GLUCOSE, Medica l Branch BUN, CREATININE, CA) CBC WITH DIFF 2020-07-27 06:06:00 Tamika Vieira [facility] NOTICE OF PRIVACY 2020-07-27 06:01:19 Doctor Unassigned, [facility] [facility]/REFUSAL FOR 2020-07-27 05:59:48 Doctor Unassigned, [facility] DIAGNOSIS AND TREATMENT [place] [facility] POCT GLUCOSE (AUTOMATED) 2020-07-14 12:43:[address] [facility] POCT GLUCOSE (AUTOMATED) 2020-07-14 01:36:[address] [facility] COMP. METABOLIC PANEL 2020-07-12 09:39:00 Devora Douglas [facility] ([id number]) Medical Branch CBC WITH DIFF 2020-07-12 09:39:00 Mayte Addison o f [facility] CT THORAX WO CONTRAST 2020-07-11 18:13:55 Mayte Addison [facility] COMP. METABOLIC PANEL 2020-07-11 09:37:00 Devora Douglas [facility] ([id number] N-TERMINAL PRO-BNP 2020-07-11 09:37:00 Misael rajinder [facility] FREE T3 2020-07-11 09:37:00 Mayte Addison [facility] SPUTUM CULTURE 2020-07-10 12:15:00 Misael [facility] PNEUMOCOCCAL ANTIGEN 2020-07-10 12:13:00 Mayte [facility] SEDIMENTATION RATE 2020-07-10 09:29:00 Misael [facility] MAGNESIUM 2020-07-10 09:28:00 Misael [facility] TROPONIN I 2020-07-10 09:28:00 Misael [facility] COMP. METABOLIC PANEL 2020-07-10 09:28:00 Misael rajinder [facility] ([id number]) [facility] CBC WITH DIFF 2020-07-10 09:28:00 Misael [facility] N-TERMINAL PRO-BNP 2020-07-10 09:28:00 Misael [facility] MYCOPLASMA PNEUMONIAE 2020-07-09 22:49:00 Mayte Addison [facility] ANTIBODY, IGM Medical Branch TRANSTHORACIC ECHO (TTE) 2020-07-09 20:36:58 Jaden Heard [facility] ADC,CLC OR LCC ONLY - 2020-07-09 19:51:00 Erika Falcon [facility] INFLUENZA A & B DIRECT Medical B ranch ANTIGEN TROPONIN I 2020-07-09 19:34:00 Misael rajinder [facility] RESPIRATORY PANEL BY PCR 2020-07-09 19:30:00 Devora Douglas [facility] URINALYSIS 2020-07-09 10:50:00 Misael [facility] LEGIONELLA URINARY 2020-07-09 10:50:00 Mayte Addison [facility] ANTIGEN TST [facility] Branch URINE CULTURE 2020-07-09 10:50:00 Devora Douglas [facility] UREA NITROGEN, URINE 2020-07-09 10:50:00 Devora Douglas [facility] SODIUM, URINE RANDOM 2020-07-09 10:50:00 Devora [facility] PROTEIN CREAT RATIO URINE 2020-07-09 10:50:00 Devora Douglas [facility] PHOSPHORUS 2020-07-09 09:41:00 Misael rajinder [facility] CREATINE KINASE 2020-07-09 09:41:00 Misael rajinder [facility] TROPONIN I 2020-07-09 09:41:00 Misael rajinder [facility] FREE T4 2020-07-09 09:41:00 Mayte Addison [facility] THYROID STIMULATING 2020-07-09 09:41:00 Devora Douglas [facility] HORMONE [facility] Branch LIPID PANEL ([id number])(TOTAL 2020-07-09 09:41:00 Devora Douglas [facility] CHOLESTEROL, [facility] TRIGLYCERIDES, HDL) PROTHROMBIN TIME / INR 2020-07-09 09:41:00 Devora Douglas [facility] N-TERMINAL PRO-BNP 2020-07-09 09:41:00 Devora Douglas [facility] PROCALCITONIN 2020-07-09 09:41:00 Devora Douglas [facility] HB ECG ROUTINE & RHYTHM 2020-07-09 09:28:10 Devora Douglas [facility] STRIP [facility] Branch MAGNESIUM 2020-07-09 06:49:00 Cande Mendoza [facility] COMP. METABOLIC PANEL 2020-07-09 06:49:00 Cande Mendoza [facility] ([id number]) [facility] BLOOD CULTURE SCREEN 2020-07-09 06:32:00 Cande Mendoza [facility] BLOOD CULTURE SCREEN 2020-07-09 06:31:[address] [facility] [place] CRITICAL CARE 2020-07-09 06:04:00 Cande Mendoza [facility] XR CHEST 1 VW 2020-07-09 05:51:20 Cande Mendoza [facility] CBC WITH DIFF 2020-07-09 05:51:00 Cande Mendoza [facility] GLYCOSYLATED HEMOGLOBIN 2020-07-09 05:51:00 Devora Douglas [facility] (A1C) [facility] COVID-19 (ID NOW RAPID 2020-07-09 05:51:00 Cande Mendoza [facility] TESTING) [facility] LAB ONLY COVID 2020-07-09 05:51:[address] [facility] INTERPRETATION [facility] Encounters Start End Encounter Admission Attending Care Care Encounter Source Date/Time Date/Time Type Type Clinicians Facility Department ID 2020-07-29 2020-07-29 Transition Karin Gilliam [id number] Univers 00:00:00 00:00:00 of Care Magda Killian [id number] [place] [id number] [place] [id number] [facility] [facility] [address] 2020-07-27 2020-07-28 Hospital Tamika Vieira [facility] 1.2.84 0.114 [id number] Univers 00:57:00 14:59:00 Encounter Sandovaljonelmaurice, [facility] 350.1.13.10 [place]y [place] [id number] [facility] [address] (CLC) 2020-07-27 2020-07-27 Emergency X IHSA [facility] ERT [id number] Univers 00:57:00 00:57:[address] [facility] [place] [place] 2020-07-16 2020-07-16 Transition Karin Gilliam 1.2.840.114 [id number] Univers 00:00:00 00:00:00 of Care Magda Killian 350.1.13.10 ity of [place] 4.2.7.2.686 [facility] [id number] [facility] [address] 2020-07-09 2020-07-14 [facility] Cande Mendoza [facility] 1.2.840. 114 [id number] Univers 00:23:00 12:00:00 Encounter Devora Douglas 350.1.13.10 ity of [place] 4.2.7.2.686 [facility] [id number] [facility] [address] 2020-07-09 2020-07-09 Emergency X DAYANNA [facility] ERT [id number] Univers 00:23:00 00:23:00 [facility] Results Test Description Test Test Results Result Source Time Comments Comments LAB ONLY COVID 2020-07 COVID [facility] INTERPRETATION -14 InterpretationInterpretation of [place] 18:13:0 /Recommendations: Molecular Medical 5 NAAT Tests for Active [facility] Infection with the SARS-CoV-2 Virus: The patient [...] COVID-19 testing the patient has had at [facility], including molecular NAAT testing (more commonly known as PCR testing and Rapid ID Now testing) and antibody testing. It does not take into account any testing that a patient has had outside of the [facility] medical record. [facility] LABORATORY SERVICESCOVID QlburdhZZUP-DkV-1 Rapid ID NOW (no units) ? ? Date ? Value ? 07/27/2020 ? Not Detected ? ? ? 07/09/2020 ? Not Detected ? [facility] LABORATORY SERVICES CT ANGIOGRAM 2020-07 CT SCAN OF THE CHEST WITH [place] CHEST -14 CONTRAST PULMONARY EMBOLISM of [place] 16:35:5 PROTOCOL HISTORY: Chest pain Medical 8 [...] edema orsmall airway disease should be considered. [facility], Radiant Results Inft User - 07/27/2020 11:37 [...] 0.004 ng/mL See_Comment [Au tomated message] The 9991692289) system which [facility] nerated this result tra nsmitted reference range [...] ? Lab Interpretation (test Normal code = 95674-7) [facility] (NA, K, CL, CO2, GLUCOSE, BUN, CREATININE, CA)2020-07-27 06:39:54 Test Item Value Reference Range Interpretation Comments NA (test code = 138 mmol/L 135-145 8285739093) K (test code = 4.2 mmol/L 3.5-5.0 4515331623) CL (test code = 100 mmol/L 98-108 1126596382) CO2 TOTAL (test code = 31 mmol/L 23-31 0123370327) AGAP (test code = 2-16 0104834098) BUN (test code = 18 mg/dL 7-23 8117191292) GLUCOSE (test code = 162 mg/dL 70-110 H 6668323491) CREATININE (test code = 0.57 mg/dL 0.50-1.04 1139766790) CALCIUM (test code = 9.3 mg/dL 8.6-10.6 1805815860) eGFR (test code = mL/min/1.73m2 6988967949) MARIPOSA (test code = MARIPOSA) Association of [...] tests). Lab Interpretation Abnormal (test code = 70561-5) [facility] Function Panel (ALB, T.PRO, BILI T, BU/BC, ALT, AST, ALK PHOS)2020-07-27 06:39:34 Test Item Value Reference Range Interpretation Comments TOTAL BILI (test code = 8272279003) 0.3 mg/dL 0.1-1.1 BILI UNCON (test code = 7160925131) 0.1 mg/dL 0.1-1.1 BILI CONJ (test code = 8246141682) 0.0 mg/dL 0.0-0.3 T PROTEIN (test code = 2862204254) 8.1 g/dL 6.3-8.2 ALBUMIN (test code = 8687619618) 4.3 g/dL 3.5-5.0 ALK PHOS (test code = 1464569387) 114 U/L 34-122 ALTv (test code = 1742-6) 22 U/L 5-35 AST(SGOT) (test code = 9784313645) 23 U/L 13-40 Lab Interpretation (test code = Normal 50060-0) [facility] (ID NOW RAPID TESTING)2020-07-27 06:39:33 Test Item Value Reference Range Interpretation Comments SARS-CoV-2 Rapid ID NOW Not Detected Not Detected (test code = 57895-9) MARIPOSA (test code = MARIPOSA) ID NOW COVID-19 Assay is an isothermal nucleic acid amplification test intended for the qualitative detection of nucleic acid from SARS-CoV-2 viral RNA in nasopharyngeal (PRODUCTION HONING MACHINE OPERATOR) specimens. It is used under Emergency Use [...] indicated. Lab Interpretation Normal (test code = 70598-0) [facility] 1 [id number] 06:38:34 No acute cardiopulmonary disease. RL: 3726AFC: [id number] END OF REPORT ORDERING PHYSICIAN: ISHA LOERA HISTORY: ?sob . Shortness of breath.TECHNIQUE: ?Frontal view of the chest. COMPARISON: ?None available. FINDINGS: ? The cardiomediastinal contours are unremarkable. The lungs are withoutconfluent airspace opacity, mass, or effusion. The osseous structures areunremarkable. [facility], Radiant Results Inft User - 07/27/2020 1:39 AM CDT ORDERING PHYSICIAN: ISHA HERNANDEZHISTORY: sob . Shortness of breath.TECHNIQUE: Frontal view of the chest.COMPARISON: None available.FINDINGS:The cardiomediastinal contours are unremarkable. The lungs are withoutconfluent airspace opacity, mass, or effusion. The osseous structures areunremarkable. IMPRESSIONNo acute cardiopulmonary disease.RL: 3726AFC: [id number] OF REPORT [facility] with [id number] 06:24:36 Test Item Value Reference Range Interpretation [...] RDW-SD (test code = 49.0 fL 39.0-49.9 17329-4) RDW-CV (test code = 15.2 % 12.0-15.5 788-0) PLT (test code = See_Comment [Automated 777-3) message] The sy stem which generated this result transmitted reference range : 166 - 358 10*3/ ?L. The reference r palmira was not used to interpret this result as normal/abnormal . MPV (test code = 10.7 fL 9.5-12.9 96173-5) NRBC/100 WBC (test See_Comment [Automat ed code = 5688988932) message] The system which generated this result transmitted reference range : 0.0 - 10.0 /100 WBCs. The refer ence range was not u sed to interpret th is result as normal/abnormal . NRBC x10^3 (test code <0.01 See_Comment [Auto mated = 0439867797) message] The s ystem which generated this result transmitted reference range : 10*3/?L. The reference range was not used to interpret this result as normal/abnormal . GRAN MAT (NEUT) % 67.2 % (test code = 770-8) IMM GRAN % (test code 0.60 % = 1903747510) LYMPH % (test code = 21.7 % 736-9) MONO % (test code = 3.3 % 5905-5) EOS % (test code = 6.6 % 713-8) BASO % (test code = 0.6 % 706-2) GRAN MAT x10^3(ANC) 7.05 10*3/uL 1.88-7.09 (test code = 0075726060) IMM GRAN x10^3 (test 0.06 10*3/uL 0.00-0.06 code = 9147412721) LYMPH x10^3 (test code 2.28 10*3/uL 1.32-3.29 = 731-0) MONO x10^3 (test code 0.35 10*3/uL 0.33-0.92 = 742-7) EOS x10^3 (test code = 0.69 10*3/uL 0.03-0.39 H 711-2) BASO x10^3 (test code 0.06 10*3/uL 0.01-0.07 = 704-7) Lab Interpretation Abnormal (test code = 76385-1) [facility] GLUCOSE (AUTOMATED)2020-07-14 13:01:17 Test Item Value Reference Range Interpretation Comments POCT GLU (test code = 4084412655) 107 mg/dL 70-110 Lab Interpretation (test code = Normal 38091-3) [facility] Dallas[facility]OOD CULTURE [id number] 07:01:06 Test Item Value Reference Range Interpretation Comments Blood Culture-Aerobic No organisms No growth Previo us (test code = 78933-5) isolated prelim inary verified result was Culture [...] Culture-Anaerobic isolated preliminar y (test code = 40054-2) verifi ed result was Culture In Progress on 07/09/2020 at 05 CDTPrevious preliminary verified result was No growth a t 24 hours on 07/10/2020 at 03 16 CDTPrevious preliminary verified result was No growth a t 48 hours on 07/11/2020 at 03 16 CDTPrevious preliminary verified result was No growth a t 72 hours on 07/12/2020 at 03 16 CDT Lab Interpretation Normal (test code = 39882-1) [facility] CULTURE [id number] 07:01:05 Test Item Value Reference Range Interpretation Comments Blood Culture-Aerobic No organisms No growth Previo us (test code = 69498-6) isolated prelim inary verified result was Culture [...] Culture-Anaerobic isolated preliminar y (test code = 55984-4) verifi ed result was Culture In Progress [...] CDT Lab Interpretation Normal (test code = 20330-0) [facility] GLUCOSE (AUTOMATED)2020-07-14 02:02:19 Test Item Value Reference Range Interpretation Comments POCT GLU (test code = 5141768590) 281 mg/dL 70-110 H Lab Interpretation (test code = Abnormal 81191-7) [facility] DallasMYCOPLASMA PNEUMONIAE ANTIBODY, [id number] 22:06:07 Test Item Value Reference Range Interpretation [...] e- ?specific IgM a ntibody ?detected. Ho wever, low levels ? of IgM antibodies may ?occasionally p ersist for more ?th an 12 months post-infection. Performed By: ARTURO luciano[address] [place] [address] [id number] aboratory Director: Lisbet Odom MD [Aut omated message] The sy stem which generated this result transmit romero reference range : <=0.76. The reference r palmira was not used to int erpret this result as normal/abnormal . [facility] DallasSPUTUM [id number] 16:48:41 Test Item Value Reference Range Interpretation Comments SPUTUM CULTURE 2+ Respiratory santhosh: (test code = 622-1) Commensal upper respiratory microorganisms only. Gram stain (test Few Epithelial cells code = 664-3) present MARIPOSA (test code = Bacterial pathogens MARIPOSA) associated with lower respiratory infections were not identified, which include Pseudomonas aeruginosa and Staphylococcus aureus (MRSA or MSSA). [facility]. METABOLIC PANEL (00855)2020-07-12 11:23:13 Test Item Value Reference Range Interpretation Comments NA (test code = 137 mmol/L 135-145 7062977961) K (test code = 4.9 mmol/L 3.5-5.0 7684870336) CL (test code = 96 mmol/L 98-108 L 9865563230) CO2 TOTAL (test code = 33 mmol/L 23-31 H 5330943642) AGAP (test code = 2-16 8456716171) BUN (test code = 13 mg/dL 7-23 0782268076) GLUCOSE (test code = 172 mg/dL 70-110 H 3036627571) CREATININE (test code = 0.40 mg/dL 0.50-1.04 L 5636735034) TOTAL BILI (test code = 0.5 mg/dL 0.1-1.1 4683222600) CALCIUM (test code = 9.4 mg/dL 8.6-10.6 7717748213) T PROTEIN (test code = 7.8 g/dL 6.3-8.2 0561907846) ALBUMIN (test code = 4.2 g/dL 3.5-5.0 0601723447) ALK PHOS (test code = 97 U/L 34-122 6235769600) ALTv (test code = 27 U/L 5-35 1742-6) AST(SGOT) (test code = 22 U/L 13-40 3213824599) eGFR (test code = mL/min/1.73m2 9557077762) MARIPOSA (test code = MARIPOSA) Association of [...] tests). Lab Interpretation Abnormal (test code = 69882-2) [facility] WITH [id number] 11:03:13 Test Item Value Reference Range Interpretation Comments WBC (test code = See_Comment [Automated 4557-2) message] The sy stem which generated this result transmitted reference range : 4.30 - 11.10 10*3/?L. The reference range was not used to interpret this result as normal/abnormal . RBC (test code = See_Comment [Automated 158-8) message] The sy stem which generated this [...] RDW-SD (test code = 47.8 fL 39.0-49.9 88538-2) RDW-CV (test code = 14.9 % 12.0-15.5 788-0) PLT (test code = See_Comment [Automated 777-3) message] The sy stem which generated this result transmitted reference range : 166 - 358 10*3/ ?L. The reference r palmira was not used to interpret this result as normal/abnormal . MPV (test code = 10.8 fL 9.5-12.9 26336-0) NRBC/100 WBC (test See_Comment [Automat ed code = 8104411523) message] The system which generated this result transmitted reference range : 0.0 - 10.0 /100 WBCs. The refer ence range was not u sed to interpret th is result as normal/abnormal . NRBC x10^3 (test code <0.01 See_Comment [Auto mated = 6937414437) message] The s ystem which generated this result transmitted reference range : 10*3/?L. The reference range was not used to interpret this result as normal/abnormal . GRAN MAT (NEUT) % 87.7 % (test code = 770-8) IMM GRAN % (test code 1.60 % = 2652369919) LYMPH % (test code = 9.0 % 736-9) MONO % (test code = 1.4 % 5905-5) EOS % (test code = 0.1 % 713-8) BASO % (test code = 0.2 % 706-2) GRAN MAT x10^3(ANC) 8.92 10*3/uL 1.88-7.09 H (test code = 2730032148) IMM GRAN x10^3 (test 0.16 10*3/uL 0.00-0.06 H code = 4790680635) LYMPH x10^3 (test code 0.92 10*3/uL 1.32-3.29 L = 731-0) MONO x10^3 (test code 0.14 10*3/uL 0.33-0.92 L = 742-7) EOS x10^3 (test code = <0.03 0.03-0.39 L 711-2) BASO x10^3 (test code <0.03 0.01-0.07 = 704-7) Lab Interpretation Abnormal (test code = 45095-5) [facility] DallasCT THORAX WO [id number] 22:18:13 Patchy groundglass opacities in the bilateral lungs with more confluentconsolidative opacities in the right lower lobe, consistent with multifocalatypical pneumonia. No pleural effusion or abscess. RL: 4131AFC: 86182 End of report RING PHYSICIAN: MAYTE ADDISON [...] pneumonia. No pleural effusion or abscess.RL: 4131AFC: 08042Klt of report [facility]Cit[facility] CenterFREE [id number] 21:45:45 Test Item Value Reference Range Interpretation Comments FREE T4 (test code = See_Comment [Autom ated message] 3699816237) The system mymxlog generated this result transmitted ref erence range: 0.78 - 2 .20 ng/dL:. The ref erence range was not u sed to interpret this result as normal/abnor mal. Lab Interpretation (test Normal code = 45710-5) [facility] [id number] 21:44:29 Test Item Value Reference Range Interpretation Comments FREE T3 (test code = 5991569770) 3.01 pg/mL 2.77-5.27 Lab Interpretation (test code = Normal 56218-4) [facility] DallasN-TERMINAL [id number] 10:51:09 Test Item Value Reference Range Interpretation Comments NT-proBNP (test code 38 pg/mL See_Comment [Autom ated = 4721032087) message] The system which generated this result transmitted reference range : <=125. The reference range was not used to interpret this result as normal/abnormal . MARIPOSA (test code = MARIPOSA) Biotin has been reported to cause a negative bias, interpret results relative to patient's use of biotin. Lab Interpretation Normal (test code = 12321-0) [facility]. METABOLIC PANEL (46232)2020-07-11 10:42:50 Test Item Value Reference Range Interpretation Comments NA (test code = 138 mmol/L 135-145 2688316492) K (test code = 4.5 mmol/L 3.5-5.0 1134676515) CL (test code = 101 mmol/L 98-108 0383191360) CO2 TOTAL (test code = 31 mmol/L 23-31 8496541904) AGAP (test code = 2-16 8472275053) BUN (test code = 15 mg/dL 7-23 7524996703) GLUCOSE (test code = 100 mg/dL 70-110 1148663687) CREATININE (test code = 0.46 mg/dL 0.50-1.04 L 1486528034) TOTAL BILI (test code = 0.5 mg/dL 0.1-1.6 3294527595) CALCIUM (test code = 8.9 mg/dL 8.6-10.6 7055256260) T PROTEIN (test code = 7.1 g/dL 6.3-8.2 2945111082) ALBUMIN (test code = 3.9 g/dL 3.5-5.0 9179412390) ALK PHOS (test code = 80 U/L 34-122 0837101475) ALTv (test code = 19 U/L 5-35 1742-6) AST(SGOT) (test code = 32 U/L 13-40 9869017441) eGFR (test code = mL/min/1.73m2 9907186319) MARIPOSA (test code = MARIPOSA) Association of [...] tests). Lab Interpretation Abnormal (test code = 16709-0) [facility] DallasPNEUMOCOCCAL [id number] 18:45:00 Test Item Value Reference Range Interpretation Comments S. pneumoniae antigen (test code = Negative Negative 8469576170) Lab Interpretation (test code = Normal 20324-1) [facility] DallasURINE [id number] 13:39:03 Test Item Value Reference Range Interpretation Comments URINE CULTURE (test No aerobic growth (< code = 630-4) 1000 CFU/mL) [facility] DallasSEDIMENTATION [id number] 11:16:54 Test Item Value Reference Range Interpretation Comments ESR (test code = See_Comment H [Automated message] 4414516478) The system mymxlog generated this result transmitted ref erence range: 0 - 20 m m/HR. The reference r palmira was not used to interpret this result as normal/abnor mal. Lab Interpretation (test Abnormal code = 72317-4) [facility] DallasTROPONIN [id number] 10:13:54 Test Item Value Reference Range Interpretation Comments TROPONIN I (test 0.001 ng/mL See_Comment [Automated code = 7250736170) message] The system which generated this result [...] ? Lab Interpretation Normal (test code = 25690-6) [facility] DallasN-TERMINAL [id number] 10:11:17 Test Item Value Reference Range Interpretation Comments NT-proBNP (test code 76 pg/mL See_Comment [Autom ated = 7901087501) message] The system which generated this result transmitted reference range : <=125. The reference range was not used to interpret this result as normal/abnormal . MARIPOSA (test code = MARIPOSA) Biotin has been reported to cause a negative bias, interpret results relative to patient's use of biotin. Lab Interpretation Normal (test code = 04373-8) [facility]. METABOLIC PANEL (53850)2020-07-10 10:02:17 Test Item Value Reference Range Interpretation Comments NA (test code = 137 mmol/L 135-145 3530036272) K (test code = 4.7 mmol/L 3.5-5.0 1955221213) CL (test code = 103 mmol/L 98-108 5589080839) CO2 TOTAL (test code 30 mmol/L 23-31 = 3125179938) AGAP (test code = 2-16 9864735818) BUN (test code = 17 mg/dL 7-23 7636092058) GLUCOSE (test code = 107 mg/dL 70-110 3608052232) CREATININE (test code 0.51 mg/dL 0.50-1.04 = 8047785134) TOTAL BILI (test code 0.4 mg/dL 0.1-1.1 = 8089243547) CALCIUM (test code = 9.0 mg/dL 8.6-10.6 5708389934) T PROTEIN (test code 6.9 g/dL 6.3-8.2 = 9419887010) ALBUMIN (test code = 3.8 g/dL 3.5-5.0 5338682361) ALK PHOS (test code = 79 U/L 34-122 9909252501) ALTv (test code = 16 U/L 5-35 1742-6) AST(SGOT) (test code 20 U/L 13-40 = 9955616063) eGFR (test code = mL/min/1.73m2 1456448995) MARIPOSA (test code = MARIPOSA) Association of [...] or urine or abnormalities in imaging tests). [facility] DallasMAGNESIUM2021-05-28 10:02:17 Test Item Value Reference Range Interpretation Comments MAGNESIUM (test code = 3294320186) 2.1 mg/dL 1.7-2.4 Lab Interpretation (test code = Normal 85863-1) [facility] WITH [id number] 09:51:36 Test Item Value Reference Range Interpretation Comments WBC (test code = See_Comment H [Automated 6123-2) message] The sy stem which generated this result transmitted reference range : 4.30 - 11.10 10*3/?L. The reference range was not used to interpret this result as normal/abnormal . RBC (test code = See_Comment [Automated 410-8) message] The sy stem which generated this [...] RDW-SD (test code = 49.4 fL 39.0-49.9 56702-8) RDW-CV (test code = 15.3 % 12.0-15.5 788-0) PLT (test code = See_Comment [Automated 777-3) message] The sy stem which generated this result transmitted reference range : 166 - 358 10*3/ ?L. The reference r palmira was not used to interpret this result as normal/abnormal . MPV (test code = 10.8 fL 9.5-12.9 15923-0) NRBC/100 WBC (test See_Comment [Automat ed code = 2172895751) message] The system which generated this result transmitted reference range : 0.0 - 10.0 /100 WBCs. The refer ence range was not u sed to interpret th is result as normal/abnormal . NRBC x10^3 (test code <0.01 See_Comment [Auto mated = 6134020721) message] The s ystem which generated this result transmitted reference range : 10*3/?L. The reference range was not used to interpret this result as normal/abnormal . GRAN MAT (NEUT) % 71.0 % (test code = 770-8) IMM GRAN % (test code 0.50 % = 2697855184) LYMPH % (test code = 18.6 % 736-9) MONO % (test code = 5.8 % 5905-5) EOS % (test code = 3.7 % 713-8) BASO % (test code = 0.4 % 706-2) GRAN MAT x10^3(ANC) 8.61 10*3/uL 1.88-7.09 H (test code = 4719451077) IMM GRAN x10^3 (test 0.06 10*3/uL 0.00-0.06 code = 8853775344) LYMPH x10^3 (test code 2.26 10*3/uL 1.32-3.29 = 731-0) MONO x10^3 (test code 0.71 10*3/uL 0.33-0.92 = 742-7) EOS x10^3 (test code = 0.45 10*3/uL 0.03-0.39 H 711-2) BASO x10^3 (test code 0.05 10*3/uL 0.01-0.07 = 704-7) Lab Interpretation Abnormal (test code = 51565-7) [facility] DallasRESPIRATORY PANEL BY [id number] 07:41:20 Test Item Value Reference Range Interpretation Comments Adenovirus (test code = Negative Negative 03576-9) Coronavirus HKU1 (test Negative Negative code = 06039-5) Coronavirus NL63 (test Negative Negative code = 34276-4) Coronavirus 229E (test Negative Negative code = 59018-8) Coronavirus OC43 (test Negative Negative code = 98114-0) Human Metapneumovirus Negative Negative (test code = 93926-4) Human Negative Negative Rhinovirus/Enterovirus (test code = 82417-2) Influenza A (test code = Negative Negative 51225-8) Influenza B (test code = Negative Negative 78119-8) Parainfluenza Virus 1 Negative Negative (test code = 49673-1) Parainfluenza Virus 2 Negative Negative (test code = 64462-0) Parainfluenza Virus 3 Negative Negative (test code = 74309-5) Parainfluenza Virus 4 Negative Negative (test code = 16876-0) Respiratory Syncytial Negative Negative Virus (test code = 64722-3) Bordetella parapertussis Negative Negative (test code = 19190-7) Bordetella pertussis Negative Negative (test code = 03100-3) Chlamydia pneumoniae Negative Negative (test code = 79297-3) Mycoplasma pneumoniae Negative Negative (test code = 89411-5) MARIPOSA (test code = MARIPOSA) Negative:A negative result does not rule-out infection. ?This assay does not test for all potential infectious agents. ? Positive:A positive test result does not necessarily indicate the presence of viable organism. ? Lab Interpretation (test Normal code = 21895-5) [facility] Dallas[facility] ONLY COVID [id number] 06:21:45COVID DMT InterpretationInterpretation/Recommendations: Molecular NAAT Tests for [...] COVID-19 testing the patient has had at [facility], including molecular NAAT testing (more commonly known as PCR testing and Rapid ID Now testing) and antibody testing. It does not take into account any testing that a patient has had outside of the [facility] medical record. [facility] LABORATORY SERVICESCOVID Resul ioCDCW-EeX-0 Rapid ID NOW (no units) ? ? Date ? Value ? 07/09/2020 ? Not Detected ? [facility] LABORATORY SERVICES [facility] DallasLEGIONELLA URINARY ANTIGEN [id number] 23:26:39 Test Item Value Reference Range Interpretation Comments Legionella Urinary Negative Negative Antigen (test code = 0576419028) MARIPOSA (test code = MARIPOSA) Negative for [...] test. Lab Interpretation (test Normal code = 55573-4) [facility] DallasTROPONIN [id number] 21:06:36 Test Item Value Reference Range Interpretation Comments TROPONIN I (test 0.002 ng/mL See_Comment [Automated code = 3144443583) message] The system which generated this result [...] ? Lab Interpretation Normal (test code = 54207-4) [facility] DallasADC,CLC OR LCC ONLY - INFLUENZA A & B DIRECT [id number] 20:54:43 Test Item Value Reference Range Interpretation Comments Influenza A (test code = 46666-7) Negative Negative Influenza B (test code = 42524-2) Negative Negative Lab Interpretation (test code = Normal 38609-6) [facility] DallasPROCALCITONIN2021-05-27 17:02:04 Test Item Value Reference Interpretation Comments Range Procalcitonin (test <0.02 See_Comment [Automa romero code = 1046543648) message] The system which generated this result [...] For further information please refer to:[email or web address] Lab Interpretation Normal (test code = 63535-6) [facility] DallasUREA NITROGEN, URINE [id number] 16:26:49 Test Item Value Reference Range Interpretation Comments UREA N UR (test code = 4469154034) 546 mg/dL [facility]OTE[facility] CREAT RATIO URINE [id number] 13:05:11 Test Item Value Reference Range Interpretation Comments T. PROT U (test code = 2888-6) 22 mg/dL CREAT U (test code = 0149517137) 28.1 mg/dL Protein/Creatinine Ratio Urine 0.0-2.0 (test code = 9695463146) [facility] [place]SODIUM, URINE [id number] 13:01:14 Test Item Value Reference Range Interpretation Comments NA URINE (test code = 1939428789) 26 mmol/L [facility] DallasXR CHEST 1 [id number] 12:40:02 Right lower lung well-demarcated consolidation concerning for lobarpneumonia or atelectasis. Preliminary Report Dictated by Resident: [place] B Sushil Hinojosa MD., have reviewed this study and agree [...] this study and agree withthe above report. [facility] DallasTHYROID STIMULATING [id number] 12:35:31 Test Item Value Reference Range Interpretation Comments TSH (test code = See_Comment L [Automated message] 9299544334) The system mymxlog generated this result transmitted ref erence range: 0.45 - 4 .70 mIU/L. The refe rence range was not u sed to interpret this result as normal/abnor mal. Lab Interpretation (test Abnormal code = 66194-8) [facility] DallasN-TERMINAL [id number] 12:14:52 Test Item Value Reference Range Interpretation Comments NT-proBNP (test code 46 pg/mL See_Comment [Autom ated = 1201593471) message] The system which generated this result transmitted reference range : <=125. The reference range was not used to interpret this result as normal/abnormal . MARIPOSA (test code = MARIPOSA) Biotin has been reported to cause a negative bias, interpret results relative to patient's use of biotin. Lab Interpretation Normal (test code = 82241-1) [facility] DallasURINALYSIS2021-05-27 12:10:35 Test Item Value Reference Range Interpretation Comments APPEARANCE (test code = Clear Clear 2508932585) COLOR (test code = Straw Yellow A 6426390975) PH (test code = 4.8-8.0 8514733862) SP GRAVITY (test code = 1.003-1.030 1518769527) GLU U QUAL (test code = Normal Normal 9505487648) BLOOD (test code = 2+ Negative A 5844709792) KETONES (test code = Negative Negative 0866446137) PROTEIN (test code = Negative Negative 2887-8) UROBILIN (test code = Normal Normal 1355393696) BILIRUBIN (test code = Negative Negative 3322155611) NITRITE (test code = Negative Negative 6323299142) LEUK CLIFFORD (test code = Negative Negative 1948299713) RBC/HPF (test code = See_Comment H [Autom ated message] 4728487589) The system mymxlog generated this result transmitted ref erence range: 0 - 3 HP F. The reference range was not used to int erpret this result as normal/abnormal . WBC/HPF (test code = See_Comment [Autom ated message] 4512465858) The system mymxlog generated this result transmitted ref erence range: 0 - 5 HP F. The reference range was not used to int erpret this result as normal/abnormal . BACTERIA (test code = Negative Negative 1607576289) SQ EPITH (test code = HPF 7148961847) Lab Interpretation (test Abnormal code = 18967-5) [facility] DallasLIPID PANEL (19343)(TOTAL CHOLESTEROL, TRIGLYCERIDES, HDL)2020-07-09 12:04:52 Test Item Value Reference Range Interpretation Comments CHOL (test code = 183 mg/dL 120-200 9689972642) HDL (test code = 61 mg/dL >50 1767334061) HDLC RATIO (test code = See_Comment [Au tomated message] 3773740234) The system mymxlog generated this result transmit romero reference range : <=4.5. The refe rence range was not u sed to interpret th is result as normal/abnormal . TRIG (test code = 68 mg/dL 30-170 7028929502) LDL CHOL (test code = 108 mg/dL See_Comment [Auto mated message] 96969-2) The system mymxlog generated this result transmit romero reference range : <=160. The refe rence range was not u sed to interpret th is result as normal/abnormal . VLDL (test code = 14 mg/dL 5-60 5967078273) Lab Interpretation (test Normal code = 77129-4) [facility] DallasPHOSPHORUS2021-05-27 12:04:52 Test Item Value Reference Range Interpretation Comments PHOSPHORUS (test code = 1409799953) 3.7 mg/dL 2.5-5.0 Lab Interpretation (test code = Normal 82112-1) [facility] DallasCREATINE [id number] 12:04:11 Test Item Value Reference Range Interpretation Comments CK (test code = 6276096138) 58 U/L 33-194 Lab Interpretation (test code = Normal 15642-3) [facility] DallasGLYCOSYLATED HEMOGLOBIN (A1C)2020-07-09 11:48:12 Test Item Value Reference Range Interpretation Comments HGB A1C (test code = 6.2 % 4.0-5.7 H 4548-4) MARIPOSA (test code = MARIPOSA) Reference RangesNormal: <5.7%Prediabetes: 5.7 - 6.4%Diabetes: > 6.5% Lab Interpretation (test Abnormal code = 23611-8) [facility] DallasTROPONIN [id number] 11:47:11 Test Item Value Reference Range Interpretation Comments TROPONIN I (test 0.000 ng/mL See_Comment [Automated code = 0587103759) message] The system which generated this result [...] ? Lab Interpretation Normal (test code = 99277-8) [facility] DallasPROTHROMBIN TIME / [id number] 11:40:31 Test Item Value Reference Range Interpretation Comments PROTIME PATIENT (test See_Comment [Auto mated message] code = 5964-2) The system [employer] generated this result transmitted ref erence range: 12.0 - 1 4.7 Seconds. The re ference range was not u sed to interpret this result as normal/abnor mal. INR (test code = 6301-6) Nor mal INR <1.1; Warfarin Therap eutic range 2.0 to 3. 0 or 2.5 to 3.5, dep ending upon the indica tions. Lab Interpretation (test Normal code = 78252-3) [facility] DallasMAGNESIUM2021-05-27 07:28:47 Test Item Value Reference Range Interpretation Comments MAGNESIUM (test code = 4096380784) 2.5 mg/dL 1.7-2.4 H Lab Interpretation (test code = Abnormal 58832-6) [facility] DallasCOMP. METABOLIC PANEL (88227)2020-07-09 07:28:27 Test Item Value Reference Range Interpretation Comments NA (test code = 135 mmol/L 135-145 9649699523) K (test code = 4.6 mmol/L 3.5-5.0 4226684617) CL (test code = 99 mmol/L 98-108 2835029570) CO2 TOTAL (test code = 26 mmol/L 23-31 3533429138) AGAP (test code = 2-16 8360398451) BUN (test code = 17 mg/dL 7-23 4381083710) GLUCOSE (test code = 190 mg/dL 70-110 H 8955121184) CREATININE (test code = 0.42 mg/dL 0.50-1.04 L 0469797807) TOTAL BILI (test code = 0.4 mg/dL 0.1-1.2 0196819890) CALCIUM (test code = 9.5 mg/dL 8.6-10.6 8736983950) T PROTEIN (test code = 8.8 g/dL 6.3-8.2 H 0713921158) ALBUMIN (test code = 4.5 g/dL 3.5-5.0 2421112897) ALK PHOS (test code = 126 U/L 34-122 H 7895644758) ALTv (test code = 20 U/L 5-35 2-6) AST(SGOT) (test code = 29 U/L 13-40 5463038204) eGFR (test code = mL/min/1.73m2 1642963958) MARIPOSA (test code = MARIPOSA) Association of [...] tests). Lab Interpretation Abnormal (test code = 49259-4) [facility] DallasCOVID-19 (ID NOW RAPID TESTING)2020-07-09 06:30:42 Test Item Value Reference Range Interpretation Comments SARS-CoV-2 Rapid ID NOW Not Detected Not Detected (test code = 51048-2) MARIPOSA (test code = MARIPOSA) ID NOW COVID-19 Assay is an isothermal nucleic acid amplification test intended for the qualitative detection of nucleic acid from SARS-CoV-2 viral RNA in nasopharyngeal (PRODUCTION HONING MACHINE OPERATOR) specimens. It is used under Emergency Use [...] indicated. Lab Interpretation Normal (test code = 87158-8) [facility] DallasCB WITH [id number] 06:24:59 Test Item Value Reference Range Interpretation Comments WBC (test code = See_Comment H [Automated 5767-2) message] The system which generated this result transmit romero reference range : 4.30 - 11.10 10*3/?L. The reference range was not used to interpret this result as normal/abnormal . RBC (test code = See_Comment [Automated 567-8) message] The system which generated this result [...] RDW-SD (test code = 46.9 fL 39.0-49.9 69888-4) RDW-CV (test code = 14.6 % 12.0-15.5 788-0) PLT (test code = See_Comment [Automated 777-3) message] The system which generated this result transmit romero reference range : 166 - 358 10*3/ ?L. The reference range was not u sed to interpret th is result as normal/abnormal . MPV (test code = 10.9 fL 9.5-12.9 92617-5) NRBC/100 WBC (test See_Comment [Automat ed code = 6828451537) message] The system which generated this result transmit romero reference range : 0.0 - 10.0 /100 WBCs. The reference range was not used to interpret this result as normal/abnormal . NRBC x10^3 (test code See_Comment [Auto mated = 9423788206) message] The system which generated this result transmit romero reference range : 10*3/?L. The reference range was not used to interpret this result as normal/abnormal . GRAN MAT (NEUT) % 85.9 % (test code = 770-8) IMM GRAN % (test code 1.50 % = 6505515737) LYMPH % (test code = 10.9 % 736-9) MONO % (test code = 1.3 % 5905-5) EOS % (test code = 0.1 % 713-8) BASO % (test code = 0.3 % 706-2) GRAN MAT x10^3(ANC) 12.67 10*3/uL 1.88-7.09 H (test code = 3239287685) IMM GRAN x10^3 (test 0.22 10*3/uL 0.00-0.06 H code = 5908515472) LYMPH x10^3 (test code 1.61 10*3/uL 1.32-3.29 = 731-0) MONO x10^3 (test code 0.19 10*3/uL 0.33-0.92 L = 742-7) EOS x10^3 (test code = <0.03 0.03-0.39 L 711-2) BASO x10^3 (test code 0.05 10*3/uL 0.01-0.07 = 704-7) Lab Interpretation Abnormal (test code = 59473-7) [facility] DallasCritical [id number] 06:04:00Cande Mendoza MD ? ? 07/09/2020 ?5:55 AMCritical CarePerformed by: Caned Mendoza MDAuthorizedby: Cande Mendoza MD Critical care [...] following conditions: ?Circulatory failure, respiratory failure, shock, STEEPLECHASE JOCKEY failure or compromise and dehydration ?Critical care [...] patient or surrogate and blood draw for specimensUnCitizens Medical Center"
[2021-06-07 16:24] LABS: Absolute Lymphocytes (CBC) 1.3 K/uL (0.7-4.9); Hematocrit 38.3 % (36.0-45.0); Lymphocytes % 16.2 % (15.3-44.8); MPV 8.3 fL (7.6-11.3)
[2021-06-07] MEDS ORDERED: LEVALBUTEROL 1.25 MG/3 ML NEB ONE ×2 (16:42→18:20)
[2021-06-07] MEDS ORDERED: MAGNESIUM SULFATE 1 gm IVPB 1 GM/100 ML BAG IV ONE (16:42)
[2021-06-07] MEDS ORDERED: METHYLPREDNISOLONE 125 MG INJ ONE (16:42)
[2021-06-07 16:45] LABS: BUN Blood Urea Nitrogen 13 mg/dL (7-18); Bicarbonate 31 mmol/L (21-32); Glucose Level 140 mg/dL (74-106); NT PRO-BNP 55 pg/mL (<125); Potassium 3.9 mmol/L (3.5-5.1); Sodium Level 137 mmol/L (136-145); Troponin High Sensitivity 4.8 pg/mL (<58.9)
--- NOTE | 2021-06-07 17:10 | RAD REPORT ---
EXAM DESCRIPTION: RAD - Chest Single View - 06/07/2021 4:59 pm CLINICAL HISTORY: SOB COMPARISON: Chest Single View dated 03/31/2021; Chest Single View dated 12/14/2020; Chest Single View dated 05/25/2020 FINDINGS: Lines: None. Lungs: No evidence of edema or pneumonia. Pleural: No significant pleural effusions or pneumothorax. Cardiac: The heart size is within normal limits. Bones: No acute fractures. Other: IMPRESSION: No acute cardiopulmonary disease.
--- NOTE | 2021-06-07 17:28 | RAD REPORT ---
EXAM DESCRIPTION: CT - Chest For Pe Angio - 06/07/2021 5:14 pm CLINICAL HISTORY: shortness of breath, elevated d-dimer COMPARISON: Chest For Pe Angio dated 03/31/2021 FINDINGS: Chest Wall: No suspicious thyroid nodules or pathologic lymphadenopathy. Lungs: Mosaic lung attenuation. Pleura: Tiny left pleural effusion. Mediastinum/sarah: No pathologic lymphadenopathy. Pulmonary arteries/Aorta: No filling defect identified. The segmental and subsegmental pulmonary stephanie chelle are difficult to adequately evaluate due to motion. No aortic aneurysm. Heart: No significant pericardial effusion. Cardiomegaly. Upper abdomen: No acute abnormality. Hepatic steatosis. Bones: No acute abnormality. All CT scans are performed using dose optimization technique as appropriate and may include automated exposure control or mA/KV adjustment according to patient size. IMPRESSION: No clinically significant pulmonary embolus identified. There is again some limitation d ue to motion. Mosaic lung attenuation which could indicate small airways disease.
[2021-06-07] MEDS ORDERED: ALBUTEROL 2.5 MG/3 ML NEB SOL ONE (18:20)
[2021-06-07] MEDS ORDERED: IPRATROPIUM BROM 0.5MG/2.5ML ONE (18:21)
--- NOTE | 2021-06-07 18:24 | RAD REPORT ---
EXAM DESCRIPTION: US - UPPER EXTREMITY VENOUS UNILATE - 06/07/2021 6:03 pm CLINICAL HISTORY: Pain COMPARISON: No comparisons FINDINGS: Color Doppler, grayscale, and spectral analysis was performed. No evidence of venous thrombosis in the left internal jugular vein, left subclavian vein, left axilla ry vein, left basilic vein, left brachial vein, left cephalic vein, and left ulnar vein. IMPRESSION: No evidence of venous thrombosis in the left upper extremity.
--- NOTE | 2021-06-07 18:58 | EDPHYS ---
Physician Documentation [facility] Name: Kina Parham Age: 40 yrs Sex: Female : 1980 Arrival Date: 06/07/2021 Time: 15:45 Bed 23 Private MD: ED Physician John Cha HPI: 06/07 16:21 This 40 yrs old Female presents to ER via Wheelchair with complaints of rn Shortness Of Breath. 16:21 The patient has shortness of breath at rest, with light activity. Onset: The rn symptoms/episode began/occurred 1 week(s) ago. Duration: The symptoms are continuous. The patient's shortness of breath is aggravated by exertion, light activity, is alleviated by rest. Associated signs and symptoms: Pertinent negatives: fever, hemoptysis, loss of consciousness. Severity of symptoms: At their worst the symptoms were moderate in the emergency department the symptoms are unchanged. The patient has experienced similar episodes in the past. The patient has not recently seen a physician. Pt reports her work made her come in for evaluation, has been having sob for 1 week, + hx of asthma, noted to have high blood pressure by nurse at work and was concerned. No chest pain. Reports sob that improves with inhaler, no hemoptysis, no fever. . Historical: - Allergies: 15:53 No Known Allergies; aa5 - PMHx: 15:53 Arthritis; Asthma; Hypertension; Pneumonia; aa5 - PSHx: 15:53 tubal ligation; aa5 - Immunization history:: Adult Immunizations unknown. - Social history:: Smoking status: Patient denies any tobacco usage or history of. - Family history:: not pertinent. - Hospitalizations: : No recent hospitalization is reported. ROS: 16:21 Constitutional: Negative for fever, chills, and weight loss, Eyes: Negative for injury, rn pain, redness, and discharge, ENT: Negative for injury, pain, and discharge, Neck: Negative for injury, pain, and swelling, Cardiovascular: Negative for chest pain, palpitations, and edema, Respiratory: + sob and wheezing Abdomen/GI: Negative for abdominal pain, nausea, vomiting, diarrhea, and constipation, Back: Negative for injury and pain, : Negative for injury, bleeding, discharge, and swelling, MS/Extremity: Negative for injury and deformity, Skin: Negative for injury, rash, and discoloration, Neuro: + headache, negative for focal weakness/numbness Exam: 16:21 ECG was reviewed by the Attending Physician. rn 16:21 Constitutional: This is a well developed, well nourished patient who is awake, alert, rn moderate tachypnea Head/Face: Normocephalic, atraumatic. Eyes: Pupils equal round and reactive to light, extra-ocular motions intact. Periorbital areas with no swelling, redness, or edema. ENT: No stridor Cardiovascular: Regular rate and rhythm. No pulse deficits. Respiratory: + moderate tachypnea, no retractions, + diffuse wheezing Abdomen/GI: Soft, non-tender Skin: Warm, dry, no cyanosis MS/ Extremity: Pulses equal, no cyanosis. Neuro: Awake and alert, GCS 15, 5/5 strength throughout, sensation intact Vital Signs: 15:51 BP 168 / 83; Pulse 75; Resp 20 S; Temp 97.7(TE); Pulse Ox 98% on R/A; aa5 15:58 Weight 139.71 kg (M); aa5 16:57 BP 145 / 81; Pulse 72; Resp 18; Pulse Ox 100% on R/A; ld1 18:01 BP 139 / 82; Pulse 76; Resp 17; Pulse Ox 96% on R/A; ld1 18:57 BP 149 / 87; Pulse 73; Resp 18; Pulse Ox 96% on R/A; ld1 MDM: 16:00 Patient medically screened. rn 18:14 Differential diagnosis: Anxiety Reaction asthma, CHF exacerbation, Myocardial rn Infarction pneumonia, Pneumothorax pulmonary edema, Pulmonary Embolism reactive airway disease. Data reviewed: vital signs, nurses notes, lab test result(s), EKG, radiologic studies. ED course: Pt improved but still moderate tachypnea and reports can't walk 2/[address] PE neg. Oxygen around 93%, lowest after exertion was 88%. Will give another breathing treatment and low threshold for admit.. 18:56 ED course: Ambulated patient, did well, feels much better, oxygen after walking around rn nurses station/ER was 96%, offered observation, patient wants to go home, understands risks and return precautions. Will dc home with neb refill and steroids.. 06/07 15:58 Order name: Basic Metabolic Panel; Complete Time: 16:46 iw 06/07 15:58 Order name: CBC with Diff; Complete Time: 16:46 iw 06/07 15:58 Order name: Troponin HS; Complete Time: 16:46 iw 06/07 16:04 Order name: D-Dimer; Complete Time: 16:46 rn 06/07 16:11 Order name: NT PRO-BNP; Complete Time: 16:46 EDMS 06/07 15:58 Order name: XRAY Chest (1 view); Complete Time: 18:08 iw 06/07 16:33 Order name: CT Chest For PE Angio; Complete Time: 18:08 rn 06/07 16:33 Order name: Extremity Venous Uni Ltd US rn 06/07 16:37 Order name: UPPER EXTREMITY VENOUS UNILATE; Complete Time: 18:26 EDMS 06/07 15:58 Order name: EKG; Complete Time: 15:58 iw 06/07 15:58 Order name: Cardiac monitoring; Complete Time: 16:47 iw 06/07 15:58 Order name: EKG - Nurse/Tech; Complete Time: 16:28 iw 06/07 15:58 Order name: IV Saline Lock; Complete Time: 16: iw 06/07 15:58 Order name: Labs collected and sent; Complete Time: 16:26 iw 06/07 15:58 Order name: O2 Per Protocol; Complete Time: 16: iw 06/07 15:58 Order name: O2 Sat Monitoring; Complete Time: 16:26 iw EC:21 Rate is 84 beats/min. Rhythm is regular. QRS Thor is Normal. OK interval is normal. QRS rn interval is normal. QT interval is normal. No Q waves. T waves are Normal. No ST changes noted. Clinical impression: Normal ECG. Interpreted by me. Reviewed by me. Administered Medications: 16:46 Drug: SOLU-Medrol (methylPrednisoLONE) 125 mg Route: IVP; Site: right antecubital; ld1 17:00 Follow up: Response: No adverse reaction ld1 16:46 Drug: Xopenex (levalbuterol) (3) 1.25 mg Route: Inhalation; ld1 17:00 Follow up: Response: No adverse reaction ld1 16:46 Drug: Magnesium Sulfate 1 grams Route: IVPB; Infused Over: 1 hrs; Site: right ld1 antecubital; 18:19 Drug: Xopenex (levalbuterol) 1.25 mg Route: Inhalation; ld1 18:19 Drug: AtroVENT (ipratropium) Aerosol 0.5 mg Route: Inhalation; ld1 Disposition Summary: 06/07/21 18:57 Discharge Ordered Location: Home rn Problem: an acute exacerbation rn Symptoms: have improved rn Condition: Stable rn Diagnosis - Mild intermittent asthma with (acute) exacerbation rn - Essential (primary) hypertension rn Followup: rn - With: Private Physician - When: As needed - Reason: Recheck today's complaints, Re-evaluation by your physician Discharge Instructions: - Discharge Summary Sheet rn - Asthma, Adult rn - Hypertension, Adult rn Forms: - Medication Reconciliation Form rn - Thank You Letter rn - Antibiotic analysis internship - Prescription Opioid Use rn - Work release form ld1 Prescriptions: - Prednisone 20 mg Oral Tablet - take 3 tablets by ORAL route once daily for 5 days; 15 tablet; Refills: 0, rn Product Selection Permitted - Albuterol Sulfate 2.5 mg /3 mL (0.083 %) Inhalation Solution for Nebulization - inhale 1 unit by NEBULIZATION route every 8 hours As needed; 1 box; Refills: 0, rn Product Selection Permitted Signatures: Dispatcher [employer] Cora Grant RN RN iw Nieto, Roman, MD MD rn Calderon, Audri, RN RN aa5 Erika Moreland RN RN ld1 Corrections: (The following items were deleted from the chart) 16:07 16:05 PROBNP+C.LAB.BRZ ordered. ED ED
--- NOTE | 2021-06-07 18:58 | ER ---
Nurse's Notes [facility] Name: Kina Parham Age: 40 yrs Sex: Female : 1980 Arrival Date: 06/07/2021 Time: 15:45 Bed 23 Private MD: Diagnosis: Mild intermittent asthma with (acute) exacerbation;Essential (primary) hypertension Presentation: 06/07 15:51 Chief complaint: Patient states: SOB with walking that began a few days ago. Pt also aa5 reports pressure to left side of chest radiating down left arm. Coronavirus screen: At this time, the client does not indicate any symptoms associated with coronavirus-19. Ebola Screen: No symptoms or risks identified at this time. Initial Sepsis Screen: Does the patient meet any 2 criteria? No. Patient's initial sepsis screen is negative. Does the patient have a suspected source of infection? No. Patient's initial sepsis screen is negative. Risk Assessment: Do you want to hurt yourself or someone else? Patient reports no desire to harm self or others. Onset of symptoms was May 2021. 15:51 Acuity: DOMINIC 3 aa5 15:51 Method Of Arrival: Wheelchair aa5 Historical: - Allergies: 15:53 No Known Allergies; aa5 - PMHx: 15:53 Arthritis; Asthma; Hypertension; Pneumonia; aa5 - PSHx: 15:53 tubal ligation; aa5 - Immunization history:: Adult Immunizations unknown. - Social history:: Smoking status: Patient denies any tobacco usage or history of. - Family history:: not pertinent. - Hospitalizations: : No recent hospitalization is reported. Screenin:57 Abuse screen: Denies threats or abuse. Denies injuries from another. Nutritional ld1 screening: No deficits noted. Tuberculosis screening: No symptoms or risk factors identified. Fall Risk None identified. Assessment: 16:57 General: Appears in no apparent distress. comfortable, Behavior is calm, cooperative, ld1 appropriate for age. Pain: Denies pain. Neuro: Level of Consciousness is awake, alert, obeys commands, Oriented to person, place, time, situation. Cardiovascular: Capillary refill < 3 seconds Patient's skin is warm and dry. Respiratory: Reports shortness of breath Airway is patent Respiratory effort is even, unlabored, the patient has mild shortness of breath. GI: Abdomen is round obese. : No signs and/or symptoms were reported regarding the genitourinary system. EENT: No signs and/or symptoms were reported regarding the EENT system. Derm: No signs and/or symptoms reported regarding the dermatologic system. Musculoskeletal: No signs and/or symptoms reported regarding the musculoskeletal system. 18:56 Reassessment: Ambulated pt - SpO2 of 94%. ld1 Vital Signs: 15:51 BP 168 / 83; Pulse 75; Resp 20 S; Temp 97.7(TE); Pulse Ox 98% on R/A; aa5 15:58 Weight 139.71 kg (M); aa5 16:57 BP 145 / 81; Pulse 72; Resp 18; Pulse Ox 100% on R/A; ld1 18:01 BP 139 / 82; Pulse 76; Resp 17; Pulse Ox 96% on R/A; ld1 18:57 BP 149 / 87; Pulse 73; Resp 18; Pulse Ox 96% on R/A; ld1 ED Course: 15:45 Patient arrived in ED. as 15:51 Arm band placed on. aa5 15:53 Triage completed. aa5 16:00 John Cha MD is Attending Physician. rn 16:26 Erika Moreland RN is Primary Nurse. ld1 16:57 Patient has correct armband on for positive identification. Placed in gown. Bed in low ld1 position. Call light in reach. Side rails up X2. panel monitor on. Pulse ox on. NIBP on. Door closed. Noise minimized. Warm blanket given. 16:57 No provider procedures requiring assistance completed. Inserted saline lock: 20 gauge ld1 in right antecubital area, using aseptic technique. Blood collected. 17:01 XRAY Chest (1 view) In Process Unspecified. EDMS 17:16 CT Chest For PE Angio In Process Unspecified. EDMS 18:05 UPPER EXTREMITY VENOUS UNILATE In Process Unspecified. EDMS 19:22 IV discontinued, intact, bleeding controlled, No redness/swelling at site. ld1 Administered Medications: 16:46 Drug: SOLU-Medrol (methylPrednisoLONE) 125 mg Route: IVP; Site: right antecubital; ld1 17:00 Follow up: Response: No adverse reaction ld1 16:46 Drug: Xopenex (levalbuterol) (3) 1.25 mg Route: Inhalation; ld1 17:00 Follow up: Response: No adverse reaction ld1 16:46 Drug: Magnesium Sulfate 1 grams Route: IVPB; Infused Over: 1 hrs; Site: right ld1 antecubital; 18:19 Drug: Xopenex (levalbuterol) 1.25 mg Route: Inhalation; ld1 18:19 Drug: AtroVENT (ipratropium) Aerosol 0.5 mg Route: Inhalation; ld1 Outcome: 18:57 Discharge ordered by . rn 19:22 Discharged to home ambulatory. ld1 19:22 Condition: stable 19:22 Discharge instructions given to patient, family, Instructed on discharge instructions, follow up and referral plans. medication usage, Demonstrated understanding of instructions, follow-up care, medications, Prescriptions given X 2. 19:22 Patient left the ED. ld1 Signatures: Dispatcher [employer] Jazmin Rosa Roman, MD MD rn Calderon, Audri, RN RN aa5 Erika Moreland RN RN ld1
[2021-06-07 22:37] VITALS: TEMP 97.7
[2021-06-07 22:39] VITALS: O2SAT 96
[2021-06-07 22:41] VITALS: BP 149/87
--- NOTE | 2021-06-08 09:33 | EKG ---
Test Date: 2021-06-07 Test Time: 16:04:53 Web Content Specialist: ANNIE MEASUREMENT RESULTS: Intervals: Rate: 84 NE: 172 QRSD: 86 QT: 362 QTc: 427 [place]: P: 49 NE: 172 QRS: 74 T: 45 INTERPRETIVE STATEMENTS: Normal sinus rhythm Normal ECG No previous ECG available for comparison Electronically Signed On 06-08-21 09:31:49 CDT by Christian Noyola
== END 2021-06-07 19:22 | disposition home or self-care (01) ==
LOC: ER 15:43
DX: J45.21 Mild intermittent asthma with (acute) exacerbation (principal); I10 Essential (primary) hypertension; J45.909 Unspecified asthma, uncomplicated
CPT/HCPCS: 93005; 85025; 80048; 36415; 85379; 84484; 83880; 71275; 71045; 93971; 96375; 96374; 99285; Q9967; J3475; J2930

== ENCOUNTER 2021-06-21 14:55 | Emergency (ER) | payer OTHER ==
--- OUTSIDE RECORDS SUMMARY | 2021-06-21 15:00 | XMS REPORT | Continuity of Care Document ---
:1980 Author Organization [facility] t Address [address] [place] [address] Care Team Providers Name Role Phone Magda Gilliam Attending Clinician Tamika Vieira DO Attending Clinician Jenaro MERINO Attending Clinician Sarah VIEIRA Attending Clinician Unavailable Prema Mendoza MD Attending Clinician Misael DEVINE Attending Clinician Prema MENDOZA Attending Clinician Unavailable Jenaro MERINO Admitting Clinician Misael DEVINE Admitting Clinician Advance Directives Directive Decision Effective Termination Comments Source Date Date Healthcare Agents on N/A NPI: 1831 FileNameRelationshipHealthcare [id number] Agent RelationshipCommunicationJose Charlie RosalesSpouse1 - Legal [phone] (Mobile) Problems Condition Condition Condition Status Onset Resolution Last Treating Co mments Source Name Details Category Date Date Treatment Clinician Date Shortness Shortness Disease Active NPI :183 of breath of breath 07-09 1318 781 00:00: 00 Pneumonia Pneumonia Disease Active NPI :183 07-09 [id number] 00:00: 00 RESENDIZ RESENDIZ Disease Active NPI:183 (dyspnea (dyspnea 07-09 517623 1 on on 00:00: exertion) exertion) 00 Tachycardi Tachycardi Disease Active N PI:183 a a 07-09 4465101 00:00: 00 Essential Essential Disease Active NPI :183 hypertensi hypertensi 07-09 13 24191 on on 00:00: 00 Normal Normal Disease Active NPI:183 delivery delivery 09-13 821941 1 00:00: 00 Screening Screening Disease Active Overview: NPI:183 for for 09-02 Formattin 3801419 diabetes diabetes 00:00: g of this mellitus mellitus 00 note might be different from the original. 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 Streptococ cus cus Insufficie Insufficie Disease Active N PI:183 nt nt 3900220 care care Morbid Morbid Disease Active NPI:183 obesity obesity 7190626 Other Other Disease Active NPI:183 abnormal abnormal 783582 1 glucose glucose Other Other Disease Active NPI:183 1318 781 screening screening Screening Screening Disease Active NPI :183 examinatio examinatio 13 13186 n for n for rubella rubella Supervisio Supervisio Disease Active N PI:183 n of other n of other 13 95554 normal normal Allergies, Adverse Reactions, Alerts Allergy Allergy Status Severity Reaction(s) Onset Inactive Treating Comm ents Source Name Type Date Date Clinician NO KNOWN Drug Active NPI:183 ALLERGIE Class 2292736 S Social History Social Habit Start Date Stop Date Quantity Comments Source Exposure to Not sure NPI:[id number] 1 SARS-CoV-2 (event) Tobacco use and 2020-07-27 2020-07-27 Never used NPI:[id number] exposure 00:00:00 00:00:00 Alcohol intake 2020-07-27 2020-07-27 Ex-drinker NPI:[id number] 00:00:00 00:00:00 (finding) Sex Ass[birth year] At [birth year] NPI:[id number] 75292 00:00:00 00:00:00 Smoking Status Start Date Stop Date Source Never smoker Medications Ordered Filled Start Stop Current Ordering Indication Dosage Frequency Signature Comments Components Source Medication Medication Date Date Medication? Clinician (SIG) Name Name methylPREDN 2020-0 Yes [id number] Take by NPI:183 ISolone 4 6-15 mouth [id number] mg tablets 00:00: SEE-INSTRU 00 CTIONS. follow package directions methylPREDN 2020-0 Yes [id number] Take by NPI:183 ISolone 4 6-15 mouth [id number] mg tablets 00:00: SEE-INSTRU 00 CTIONS. follow package directions methylPREDN 2020-0 Yes 40mg 40 mg, NPI: 183 ISolone sod 6-14 Intravenou 13 24627 succ 19:00: s, Q8H, (SOLU-MEDRO 00 First dose L (PF)) on Mon injection 07/27/20 at 40 mg 1400, Until Discontinu ed, Routine iopamidol 2020- No [id number] 100mL 100 mL, NPI:183 (ISOVUE 6-14 06-14 Intravenou 77940 81 370-500 mL) 16:30: 15:12 s, ONCE, 1 injection 00 :00 dose, Mon 100 mL 07/27/20 at 1130, Routine lisinopriL 0 Yes 40mg 40 mg, NPI:1 83 (PRINIVIL,Z 6-14 Oral, 8154967 ESTRIL) 14:00: DAILY, tablet 40 00 First dose mg on Mon07/27/20 at 0900, Until Discontinu ed hydroCHLORO 2020-0 Yes 12.5mg 12.5 mg, NPI:183 thiazide 6-14 Oral, [id number] (ESIDRIX) 14:00: DAILY, capsule 00 First dose 12.5 mg on Mon07/27/20 at 0900, Until Discontinu ed, Routine ipratropium 2020-0 Yes 3mL 3 mL, NPI:1 83 -albuteroL 6-14 Inhalation 131 8781 (DUONEB) 13:00: , QID, 0.5 mg-3 00 First dose mg(2.5 mg on Mon base)/3 mL 07/27/20 at nebulizer 0800, solution 3 Until mL Discontinu ed, Routine enoxaparin 2020-0 Yes 40mg 40 mg, NPI:1 83 (LOVENOX) 6-14 Subcutaneo 1311 781 injection 13:00: us, Q12H, 40 mg 00 First dose on Mon07/27/20 at 0800, Until Discontinu ed, Routine docusate Yes 100mg 100 mg, NPI:1 83 (COLACE) 07-27 Oral, [id number] capsule 100 10:20: QDAILYPRN, mg 17 Starting 07/27/20 at 0520, Until Discontinu ed, Routine, Constipati on HYDROcodone 2020- No 1{tbl} 1 tablet, NPI:183 -acetaminop 07-27 Oral, 439834 1 hen (NORCO 10:20: 10:19 Q6HPRN, 5) 5-325 mg 07 :07 Starting tablet 1 Mon tablet 07/27/20 at 0520, Until Mon07/29/20 at 0519, Routine, Pain (scale 4-6) acetaminoph Yes 650mg 650 mg, BROOMMAKER I:183 en 07-27 Oral, [id number] (TYLENOL) 10:19: Q6HPRN, tablet 650 59 Starting mg 07/27/20 at 0519, Until Discontinu ed, Routine, Pain (scale 1-3), Temp > 38.5 C albuterol 2020- No 5mg 5 mg, NPI:18 3 (PROVENTIL) 07-27 Inhalation 1 713928 2.5 mg /3 08:30: 08:41 , ONCE, 1 mL (0.083 00 :00 dose, Mon %) 07/27/20 at nebulizer 0330, STAT solution 5 mg albuterol No 5mg 5 mg, NPI:18 3 (PROVENTIL) 07-27 Inhalation 1 186151 2.5 mg /3 07:15: 07:13 , ONCE, 1 mL (0.083 00 :00 dose, Mon %) 07/27/20 at nebulizer 0215, STAT solution 5 mg magnesium 2020- No 2g 2 g, IV NPI: 183 sulfate in 07-27 Piggyback, 13 01885 water 2 07:15: 07:15 ONCE, 1 gram/50 mL 00 :00 dose, Mon (4 %) 07/27/20 at infusion 2 0215, g Routine methylpredn No 125mg 125 mg, IV NPI:183 isolone sod 07-27 Piggyback, 1 [id number] succ 07:15: 06:08 ONCE, 1 (SOLU-MEDRO 00 :00 dose, Mon L) 07/27/20 at injection 0215, STAT 125 mg ipratropium 2020- No .5mg 0.5 mg, BROOMMAKER I:183 (ATROVENT) 07-27 Inhalation 13 03199 0.02 % 06:15: 06:06 , ONCE, 1 nebulizer 00 :00 dose, Mon solution 07/27/20 at 0.5 mg 0115, LOGAN albuterol No 7.5mg 7.5 mg, NPI :183 (PROVENTIL) 07-27 Inhalation 1 749942 2.5 mg /3 06:15: 06:06 , ONCE, 1 mL (0.083 00 :00 dose, Mon %) 07/27/20 at nebulizer 0115, STAT solution 7.5 mg predniSONE 2020- No [id number] 40mg Take 2 NPI:183 20 mg 07-15 tablets by [id number] tablet 00:00: 04:59 mouth 00 :00 daily for 4 days. levoFLOXaci Yes 750mg 750 mg, BROOMMAKER I:183 n 07-14 Oral, Q24H 1061550 (LEVAQUIN) 16:45: ABX, First tablet 750 00 dose on mg 07/14/20 at 1145, Until Discontinu ed, LOGAN
Re ason for Anti-Infec tive: Documented Infection< br>Documen romero Infection Site: Respirator y
Durat ion of Therapy: 7 days predniSONE 2020- No 20mg Take 20 mg NPI:183 20 mg 07-14 by mouth [id number] tablet 15:41: 00:00 daily. 01 :00 albuterol 2020- No Inhale. NPI: 183 sulfate 07-14 [id number] (PROAIR 15:35: 00:00 DIGIHALER) 54 :00 90 mcg/actuati on aebs azithromyci 0 2020- No 1{packe Take 1 NPI:183 n 07-14 06- t} Packet by [id number] (ZITHROMAX) 15:35: 00:00 mouth once 1 gram 54 :00 now. powder azithromyci 2020-0 2020- No 500mg Take 500 NPI:183 n 07-14 06-01 mg by [id number] (ZITHROMAX) 15:35: 00:00 mouth 500 mg 54 :00 daily. tablet predniSONE Yes 40mg 40 mg, NPI:1 83 (DELTASONE) 07-14 Oral, [id number] tablet 40 14:00: DAILY, mg 00 First dose on Mon07/14/20 at 0900, Until Discontinu ed, Routine Sliding Yes Subcutaneo NPI: 183 Scale 07-14 us, TID [id number] Insulin - 02:00: MEALS+HS, Lispro 00 First dose (HumaLOG) + on Mon Fsbg 07/13/20 at Testing 2100, Until Discontinu ed, Routine levoFLOXaci Yes [id number] 750mg Take 1 NPI:183 n 750 mg - tablet by [id number] 1 tablet 00:00: mouth 00 every 24 (twenty-fo ur) hours. albuterol Yes [id number] 2{puff} Inhale 2 NPI:183 90 6-01 Puffs [id number] mcg/actuati 00:00: every 4 on inhaler 00 (four) hours as needed for Wheezing or Shortness of Breath. levoFLOXaci Yes [id number] 750mg Take 1 NPI:183 n 750 mg 6-01 tablet by [id number] 1 tablet 00:00: mouth 00 every 24 (twenty-fo ur) hours. albuterol 0 Yes [id number] 2{puff} Inhale 2 NPI:183 90 6-01 Puffs 6563866 mcg/actuati 00:00: every 4 on inhaler 00 (four) hours as needed for Wheezing or Shortness of Breath. levoFLOXaci Yes [id number] 750mg Take 1 NPI:183 n 750 mg 6-01 tablet by [id number] 1 tablet 00:00: mouth 00 every 24 (twenty-fo ur) hours. albuterol Yes [id number] 2{puff} Inhale 2 NPI:183 90 6-01 Puffs 1138355 mcg/actuati 00:00: every 4 on inhaler 00 (four) hours as needed for Wheezing or Shortness of Breath. levoFLOXaci Yes [id number] 750mg Take 1 NPI:183 n 750 mg 6-01 tablet by [id number] 1 tablet 00:00: mouth 00 every 24 (twenty-fo ur) hours. albuterol Yes [id number] 2{puff} Inhale 2 NPI:183 90 6-01 Puffs 7051055 mcg/actuati 00:00: every 4 on inhaler 00 (four) hours as needed for Wheezing or Shortness of Breath. lisinopriL 2020- No [id number] 40mg Take 1 NPI:183 40 mg -02 19- tablet by [id number] tablet 00:00: 04:59 mouth 00 :00 daily for 30 days. hydroCHLORO 2020- No [id number] 12.5mg Take 1 NPI:183 thiazide 6-02 19-02 capsule by 1318 781 12.5 mg 00:00: 04:59 mouth capsule 00 :00 daily for 30 days. lisinopriL 2020- No [id number] 40mg Take 1 NPI:183 40 mg -02 19- tablet by 9852270 tablet 00:00: 04:59 mouth 00 :00 daily for 30 days. hydroCHLORO 2020- No [id number] 12.5mg Take 1 NPI:183 thiazide -02 19-02 capsule by 1318 781 12.5 mg 00:00: 04:59 mouth capsule 00 :00 daily for 30 days. lisinopriL 2020- No [id number] 40mg Take 1 NPI:183 40 mg 6-02 19- tablet by [id number] tablet 00:00: 04:59 mouth 00 :00 daily for 30 days. hydroCHLORO 2020- No [id number] 12.5mg Take 1 NPI:183 thiazide 6-02 19-02 capsule by 1318 781 12.5 mg 00:00: 04:59 mouth capsule 00 :00 daily for 30 days. lisinopriL 2020- No [id number] 40mg Take 1 NPI:183 40 mg 07-14 tablet by [id number] tablet 00:00: 04:59 mouth 00 :00 daily for 30 days. hydroCHLORO 2020- No [id number] 12.5mg Take 1 NPI:183 thiazide 07-14 capsule by 1318 781 12.5 mg 00:00: 04:59 mouth capsule 00 :00 daily for 30 days. glucagon Yes 1mg 1 mg, NPI:183 (GLUCAGEN 07-13 Intramuscu 1318 781 DIAGNOSTIC 23:16: lar, PRN, KIT) 28 Starting injection 1 Mon mg 07/13/20 at 1816, Until Discontinu ed, LOGAN, Blood Glucose < or = 70 mg/dL and patient is unable to swallow or has mental changes. dextrose 50 Yes 25mL 25 mL, NPI: 183 % in water 07-13 Slow IV [id number] 1 (D50W) 23:16: Push, PRN, injection 28 Starting 25 mL 07/13/20 at 1816, Until Discontinu ed, LOGAN, Blood Glucose < or = 70 mg/dL and patient is unable to swallow or has mental status changes. lisinopriL Yes 20mg 20 mg, NPI:1 83 (PRINIVIL,Z 5-30 Oral, [id number] ESTRIL) 14:00: DAILY, tablet 20 00 First dose mg (after last modificati on) on 07/12/20 at 0900, Until Discontinu ed, Routine furosemide 2020- No 20mg 20 mg, NPI: 183 (LASIX) 07-12 05-30 Slow IV [id number] injection 01:00: 02:08 Push, 20 mg 00 :00 ONCE, 1 dose, 07/11/20 at 2000, Routine zolpidem Yes 5mg 5 mg, NPI:183 (AMBIEN) 07-11 Oral, [id number] tablet 5 mg 23:15: QHSPRN, 57 Starting 07/11/20 at 1815, Until Discontinu ed, Routine, Insomnia amLODIPine Yes 10mg 10 mg, NPI:1 83 (NORVASC) 07-11 Oral, [id number] tablet 10 21:00: DAILY, mg 00 First dose on 07/11/20 at 1600, Until Discontinu ed, Routine methylpredn No 60mg 60 mg, NPI :183 isolone sod 07-1131 Slow IV 1318 781 succ 17:30: 23:16 Push, Q6H, (SOLU-MEDRO 00 :03 First dose L) on Sat injection 07/11/20 at 60 mg 1230, Until Discontinu ed, Routine albuterol Yes 2.5mg 2.5 mg, NPI: 183 (PROVENTIL) 07-11 Inhalation 13 37219 2.5 mg /3 17:04: , Q2HPRN, mL (0.083 47 Starting %) [facility] nebulizer 07/11/20 at solution 1204, 2.5 mg Until Discontinu ed, Routine, Shortness of Breath, Wheezing enoxaparin Yes 40mg 40 mg, NPI:1 83 (LOVENOX) 07-09 Subcutaneo 1318 781 injection 22:00: us, DAILY, 40 mg 00 First dose on Astrid 07/09/20 at 1700, Until Discontinu ed, Routine lisinopriL 2020- No 10mg 10 mg, NPI: 183 (PRINIVIL,Z 07-09 Oral, 560589 1 ESTRIL) 14:00: 20:46 DAILY, tablet 10 00 :45 First dose mg on Astrid 07/09/20 at 0900, Until Discontinu ed, Routine predniSONE No 50mg 50 mg, NPI: 183 (DELTASONE) 07-0928 Oral, 810820 1 tablet 50 14:00: 23:57 DAILY, mg 00 :50 First dose on Astrid 07/09/20 at 0900, Until Discontinu ed, Routine NaCl 0.9% Yes 1000mL at 50 NPI:1 83 (NS) IV 5-27 mL/hr, IV [id number] infusion 13:30: Infusion, 1,000 mL 00 CONTINUOUS , Starting Astrid 07/09/20 at 0830, Until Discontinu ed, Routine docusate Yes 100mg 100 mg, NPI:1 83 (COLACE) 07-09 Oral, BID, 72582 81 capsule 100 13:00: First dose mg 00 on Astrid 07/09/20 at 0800, Until Discontinu ed, Routine ipratropium 2020- No 3mL 3 mL, NPI: 183 -albuteroL 07-09- Inhalation 13 87948 (DUONEB) 13:00: 08:57 , QID, 0.5 mg-3 00 :36 First dose mg(2.5 mg on Astrid base)/3 mL 07/09/20 at nebulizer 0800, solution 3 Until mL Discontinu ed, Routine ipratropium 2020- No 3mL 3 mL, NPI: 183 -albuteroL 07-09 Inhalation 13 17015 (DUONEB) 13:00: 08:57 , QID, 0.5 mg-3 00 :36 First dose mg(2.5 mg on Astrid base)/3 mL 07/09/20 at nebulizer 0800, solution 3 Until mL Discontinu ed, Routine piperacilli 2020- No 3.375g 3.375 g, NPI:183 n-tazobacta 07-09 06-01 IV [id number] m (ZOSYN) 10:00: 15:26 Piggyback, 3.375 g in 00 :41 Q6H ABX, NaCl 0.9% First dose (NS) 100 mL on Astrid MINI-BAG 07/09/20 at 0500, Until Discontinu ed, 100 mL
R rosario for Anti-Infec tive: Empiric Therapy for Suspected Infection< br>Empiric Therapy Site: Respirator y
Durat ion of therapy: 7 days ondansetron Yes 4mg 4 mg, Slow NPI:183 (ZOFRAN 07-09 IV Push, [id number] (PF)) 09:03: Q6HPRN, injection 4 54 Starting mg Astrid 07/09/20 at 0403, Until Discontinu ed, Routine, Nausea and Vomiting (N/V) budesonide Yes .5mg 0.5 mg, NPI: 183 (PULMICORT 07-09 Inhalation 131 8781 RESPULE) 09:00: , BID, nebulizer 00 First dose solution on Astrid 0.5 mg 07/09/20 at 0400, Until Discontinu ed, Routine
member service specialist approving Restricted medication : MEGADC ipratropium Yes 3mL 3 mL, NPI:1 83 -albuteroL 07-09 Inhalation 131 8781 (DUONEB) 09:00: , Q4H, 0.5 mg-3 00 First dose mg(2.5 mg (after base)/3 mL last nebulizer modificati solution 3 on) on Astrid mL 07/09/20 at 0400, Until Discontinu ed, Routine albuterol 2020- No 2.5mg 2.5 mg, NPI :183 (PROVENTIL) 07-09 Inhalation 1 [id number] 2.5 mg /3 09:00: 07:56 , ONCE, 1 mL (0.083 00 :00 dose, Astrid %) 07/09/20 at nebulizer 0400, STAT solution 2.5 mg magnesium 2020- No 2g 2 g, IV NPI: 183 sulfate in 07-09 Piggyback, 13 78557 water 2 06:45: 06:25 ONCE, 1 gram/50 mL 00 :00 dose, Astrid (4 %) 07/09/20 at infusion 2 0145, g Routine methylpredn 2020- No 125mg 125 mg, IV NPI:183 isolone sod 07-09 Piggyback, 1 [id number] succ 06:45: 05:31 ONCE, 1 (SOLU-MEDRO 00 :00 dose, Astrid L) 07/09/20 at injection 0145, STAT 125 mg levoFLOXaci 2020- No 750mg 750 mg, IV NPI:183 n in D5W 07-09 Piggyback, 1318 781 (LEVAQUIN) 06:30: 08:02 Administer 750 mg/150 00 :00 over 90 mL Minutes, Piggyback ONCE, 1 750 mg dose, Astrid 07/09/20 at 0130, LOGAN
Re ason for Anti-Infec tive: Empiric Therapy for Suspected Infection< br>Empiric Therapy Site: Respirator y
Durat ion of therapy: 72 hours Vital Signs Vital Name Observation Time Observation Value Comments Source Heart rate 2020-07-28 16:41:00 78 /min NPI:1831 [id number] Respiratory rate 2020-07-28 16:41:00 18 /min Oxygen saturation in 2020-07-28 16:41:00 90 /min Arterial blood by Pulse oximetry Systolic blood pressure 2020-07-28 16:38:00 129 mm[Hg] Diastolic blood 2020-07-28 16:38:00 69 mm[Hg] NPI:1 [id number] pressure Body temperature 2020-07-28 16:38:00 36.83 Madhuri Body height 2020-07-27 10:06:00 157.5 cm NPI:1831 [id number] Body weight 2020-07-27 10:06:00 137.939 kg NPI:1831 [id number] BMI 2020-07-27 10:06:00 55.62 kg/m2 NPI:1831 [id number] Respiratory rate 2020-07-14 16:45:00 20 /min Oxygen saturation in 2020-07-14 16:45:00 100 /min Arterial blood by Pulse oximetry Systolic blood pressure 2020-07-14 16:10:00 140 mm[Hg] Diastolic blood 2020-07-14 16:10:00 88 mm[Hg] NPI:1 [id number] pressure Heart rate 2020-07-14 16:10:00 72 /min NPI:1831 [id number] Body temperature 2020-07-14 16:10:00 36.17 Madhuri Body weight 2020-07-14 08:35:00 135.489 kg NPI:1831 [id number] Procedures Procedure Date / Time Performed Performing Clinician Harman zapien CT ANGIOGRAM CHEST 2020-07-27 15:16:47 Vitaliy Eason NPI:[id number] XR CHEST 1 VW 2020-07-27 06:14:17 Tamika Vieira NPI:[id number] COVID-19 (ID NOW RAPID 2020-07-27 06:10:00 Tamika Vieira BROOMMAKER I:[id number] TESTING) LAB ONLY COVID 2020-07-27 06:10:00 Tamika Vieira NPI:[id number] INTERPRETATION TROPONIN I 2020-07-27 06:06:00 Tamika Vieira NPI:[id number] HEPATIC FUNCTION PANEL 2020-07-27 06:06:00 Tamika Vieira BROOMMAKER I:[id number] ([id number]) (ALB,T.PRO,BILI T,BU/BC,ALT,AST,ALK PHOS) BASIC METABOLIC PANEL (NA, 2020-07-27 06:06:00 Tamika Vieira K, CL, CO2, GLUCOSE, BUN, CREATININE, CA) CBC WITH DIFF 2020-07-27 06:06:00 Tamika Vieira NPI:[id number] NOTICE OF PRIVACY PRACTICES 2020-07-27 06:01:19 Doctor MeloniessJeane zepeda Name CONSENT/REFUSAL FOR 2020-07-27 05:59:48 Doctor Unassbreann, No BROOMMAKER I:[id number] DIAGNOSIS AND TREATMENT Name POCT GLUCOSE (AUTOMATED) 2020-07-14 12:43:00 Miguel Mendoza BROOMMAKER I:[id number] POCT GLUCOSE (AUTOMATED) 2020-07-14 01:36:00 Miguel Mendoza BROOMMAKER I:[id number] COMP. METABOLIC PANEL 2020-07-12 09:39:00 Devora Douglas NPI:18 [id number] ([id number]) CBC WITH DIFF 2020-07-12 09:39:00 Mayte Addison NPI:[id number] CT THORAX WO CONTRAST 2020-07-11 18:13:55 Mayte Addison NPI:18 [id number] COMP. METABOLIC PANEL 2020-07-11 09:37:00 Devora Douglas NPI:18 [id number] ([id number]) N-TERMINAL PRO-BNP 2020-07-11 09:37:00 Devora Douglas NPI:[id number] FREE T3 2020-07-11 09:37:00 Mayte Addison NPI:[id number] SPUTUM CULTURE 2020-07-10 12:15:00 Misael, Adnan NPI:[id number] 81 PNEUMOCOCCAL ANTIGEN 2020-07-10 12:13:00 Mayte Addison NPI:[id number] SEDIMENTATION RATE 2020-07-10 09:29:00 Misael, Adnan NPI:[id number] MAGNESIUM 2020-07-10 09:28:00 Misael, Adnan NPI:[id number] 81 TROPONIN I 2020-07-10 09:28:00 Misael, Adnan NPI:[id number] 81 COMP. METABOLIC PANEL 2020-07-10 09:28:00 Misael, Devora NPI:18 [id number] ([id number]) CBC WITH DIFF 2020-07-10 09:28:00 Misael, Devora NPI:[id number] 81 N-TERMINAL PRO-BNP 2020-07-10 09:28:00 Misael, Devora NPI:[id number] MYCOPLASMA PNEUMONIAE 2020-07-09 22:49:00 Mayte Addison NPI:18 [id number] ANTIBODY, IGM TRANSTHORACIC ECHO (TTE) 2020-07-09 20:36:58 Jaden Heard COMPLETE ADC,CLC OR LCC ONLY - 2020-07-09 19:51:00 Erika Falcon NPI:18 [id number] INFLUENZA A & B DIRECT ANTIGEN TROPONIN I 2020-07-09 19:34:00 Misael, Ghanshyamrajinder NPI:[id number] 81 RESPIRATORY PANEL BY PCR 2020-07-09 19:30:00 MisaelDevora bedolla NPI :[id number] URINALYSIS 2020-07-09 10:50:00 Misael, Adnan NPI:[id number] 81 LEGIONELLA URINARY ANTIGEN 2020-07-09 10:50:00 Mayte Addison PI:[id number] TST URINE CULTURE 2020-07-09 10:50:00 Misael Ghanshyamnan NPI:[id number] 81 UREA NITROGEN, URINE RANDOM 2020-07-09 10:50:00 Misael Adnan SODIUM, URINE RANDOM 2020-07-09 10:50:00 Misael, Adnan NPI:[id number] PROTEIN CREAT RATIO URINE 2020-07-09 10:50:00 Devora Douglas BROOMMAKER I:[id number] RANDOM PHOSPHORUS 2020-07-09 09:41:00 Devora Douglas NPI:[id number] 81 CREATINE KINASE 2020-07-09 09:41:00 Devora Douglas NPI:[id number] 81 TROPONIN I 2020-07-09 09:41:00 Devora Douglas NPI:[id number] 81 FREE T4 2020-07-09 09:41:00 Mayte Addison NPI:[id number] 81 THYROID STIMULATING HORMONE 2020-07-09 09:41:00 Devora Douglas LIPID PANEL ([id number])(TOTAL 2020-07-09 09:41:00 Devora Douglas BROOMMAKER I:[id number] CHOLESTEROL, TRIGLYCERIDES, HDL) PROTHROMBIN TIME / INR 2020-07-09 09:41:00 Devora Douglas NPI:1 [id number] N-TERMINAL PRO-BNP 2020-07-09 09:41:00 Devora Douglas NPI:[id number] PROCALCITONIN 2020-07-09 09:41:00 Devora Douglas NPI:[id number] 81 HB ECG ROUTINE & RHYTHM 2020-07-09 09:28:10 Devora Douglas STRIP MAGNESIUM 2020-07-09 06:49:00 Miguel Mendoza NPI:[id number] COMP. METABOLIC PANEL 2020-07-09 06:49:00 Miguel Mendoza NPI:1 [id number] ([id number]) BLOOD CULTURE SCREEN 2020-07-09 06:32:00 Miguel Mendoza NPI:18 [id number] BLOOD CULTURE SCREEN 2020-07-09 06:31:00 Miguel Mendoza NPI:18 [id number] CRITICAL CARE 2020-07-09 06:04:00 Miguel Mendoza NPI:[id number] XR CHEST 1 VW 2020-07-09 05:51:20 Miguel Mendoza NPI:[id number] CBC WITH DIFF 2020-07-09 05:51:00 Miguel Mendoza NPI:[id number] GLYCOSYLATED HEMOGLOBIN 2020-07-09 05:51:00 Devora Douglas (A1C) COVID-19 (ID NOW RAPID 2020-07-09 05:51:00 Miguel Mendoza TESTING) LAB ONLY COVID 2020-07-09 05:51:00 Miguel Mendoza NPI:[id number] INTERPRETATION Encounters Start End Encounter Admission Attending Care Care Encounter Source Date/Time Date/Time Type Type Clinicians Facility Department ID 2020-07-29 2020-07-29 Transition Karin Gilliam [id number] NPI:183 00:00:00 00:00:00 of Care Magda Killian [id number] [place] 4.2.7.2.686 [id number] 2020-07-27 2020-07-28 [facility] Tamika Vieira [facility] 1.2.84 [id number] NPI:183 00:57:00 14:59:00 [facility] [id number] [place] 4.2.7.2.686 [place] [id number] [facility] 110 ([facility]) 2020-07-27 2020-07-27 Emergency X ISHA [facility] ERT [id number] NPI:183 00:57:00 00:57:00 TAMIKA [id number] 1 2020-07-16 2020-07-16 Transition Karin Gilliam [id number] NPI:183 00:00:00 00:00:00 of Care Magda Killian [id number] [id number] [place] 4.2.7.2.686 [id number] 2020-07-09 2020-07-14 [facility] BhavnavicAretha bluntdigna Lloyd [facility] 1.2.840. [id number] NPI:183 00:23:00 12:00:00 Encounter Devora Douglas [id number] [id number] [place] 4.2.7.2.686 [place] [id number] 2020-07-09 2020-07-09 Sanjeev X DAYANNA [facility] ERT [id number] NPI:183 00:23:00 00:23:00 MIGUEL [id number] Results Test Description Test Test Results Result Source Time Comments Comments LAB ONLY COVID 2020-07- COVID DMT NPI:[id number] INTERPRETATION 14 InterpretationInterpretation 53225 18:13:05 /Recommendations: Molecular NAAT Tests for Active Infection with [...] COVID-19 testing the patient has had at [facility], including molecular NAAT testing (more commonly known as PCR testing and Rapid ID Now testing) and antibody testing. It does not take into account any testing that a patient has had outside of the [facility] medical record. [facility] LABORAT[facility] SERVICESCOVID [id number] Rapid ID NOW (no units) ? ? Date ? Value ? 07/27/2020 ? Not Detected ? ? ? 07/09/2020 ? Not Detected ? [facility] CT ANGIOGRAM CHEST 2020-07- CT SCAN OF THE CHEST WITH NPI:[id number] CONTRAST PULMONARY EMBOLISM 36143 16:35:58 PROTOCOL HISTORY: Chest pain and shortness of breath. TECHNIQUE: CT scan of the chest is [...] edema orsmall airway disease should be considered. [facility], Radiant Results Inft User - 07/27/2020 11:[address] SCAN OF THE CHEST WITH CONTRAST PULMONARY EMBOLISM PROTOCOLHISTORY: Chest pain and shortness of breath.TECHNIQUE: CT scan of the chest is performed following intravenousadministration of 100 mL of Isovue-370 using pulmonary embolism protocol.Sagittal coronal and axial MIP reconstruction is performed.COMPARISON: 1Radiation Dose: DLP of 530 mGy-cm. FINDINGS: Contrast [...] 0.004 ng/mL See_Comment [Au tomated message] The [id number]) system which [employer] nerated this result tra nsmitted reference range [...] ? Lab Interpretation (test Normal code = 53461-0) NPI:[id number] Metabolic Panel (NA, K, CL, CO2, GLUCOSE, BUN, CREATININE, CA)2020-07-27 06:39:54 Test Item Value Reference Range Interpretation Comments NA (test code = 138 mmol/L 135-145 [id number]) K (test code = 4.2 mmol/L 3.5-5.0 2510882323) CL (test code = 100 mmol/L 98-108 2778371832) CO2 TOTAL (test code = 31 mmol/L 23-31 5368252851) AGAP (test code = 2-16 [id number]) BUN (test code = 18 mg/dL 7-23 4342326590) GLUCOSE (test code = 162 mg/dL 70-110 H 5631777216) CREATININE (test code = 0.57 mg/dL 0.50-1.04 1313788601) CALCIUM (test code = 9.3 mg/dL 8.6-10.6 8809590663) eGFR (test code = mL/min/1.73m2 4187930012) MARIPOSA (test code = MARIPOSA) Association of [...] tests). Lab Interpretation Abnormal (test code = 93976-4) NPI:[id number] Function Panel (ALB, T.PRO, BILI T, BU/BC, ALT, AST, ALK PHOS)2020-07-27 06:39:34 Test Item Value Reference Range Interpretation Comments TOTAL BILI (test code = 8637333870) 0.3 mg/dL 0.1-1.1 BILI UNCON (test code = 0904083013) 0.1 mg/dL 0.1-1.1 BILI CONJ (test code = 5940390888) 0.0 mg/dL 0.0-0.3 T PROTEIN (test code = 2846086556) 8.1 g/dL 6.3-8.2 ALBUMIN (test code = 4849815769) 4.3 g/dL 3.5-5.0 ALK PHOS (test code = 8441219213) 114 U/L 34-122 ALTv (test code = 1742-6) 22 U/L 5-35 AST(SGOT) (test code = 0053329871) 23 U/L 13-40 Lab Interpretation (test code = Normal 56180-4) NPI:[id number] (ID NOW RAPID TESTING)2020-07-27 06:39:33 Test Item Value Reference Range Interpretation Comments SARS-CoV-2 Rapid ID NOW Not Detected Not Detected (test code = 90674-2) MARIPOSA (test code = MARIPOSA) ID NOW COVID-19 Assay is an isothermal nucleic acid amplification test intended for the qualitative detection of nucleic acid from SARS-CoV-2 viral RNA in nasopharyngeal (BROOMMAKER) specimens. It is used under Emergency Use [...] indicated. Lab Interpretation Normal (test code = 18855-3) NPI:[id number] 1 [id number] 06:38:34 No acute cardiopulmonary disease. RL: 3726AFC: 89421 END OF REPORT ORDERING PHYSICIAN: ISHA LOERA [...] structures areunremarkable. IMPRESSIONNo acute cardiopulmonary disease.RL: 3726AFC: 95811FWY OF REPORT CBC with Hparflrljqkd6444-58-02 06:24:36 Test Item Value Reference Range Interpretation Comments WBC (test code = See_Comment [Automated 7299-2) message] The sy stem which generated this [...] RDW-SD (test code = 49.0 fL 39.0-49.9 95323-9) RDW-CV (test code = 15.2 % 12.0-15.5 788-0) PLT (test code = See_Comment [Automated 777-3) message] The sy stem which generated this result transmitted reference range : 166 - 358 10*3/ ?L. The reference r palmira was not used to interpret this result as normal/abnormal . MPV (test code = 10.7 fL 9.5-12.9 19005-4) NRBC/100 WBC (test See_Comment [Automat ed code = 3468190465) message] The system which generated this result transmitted reference range : 0.0 - 10.0 /100 WBCs. The refer ence range was not u sed to interpret th is result as normal/abnormal . NRBC x10^3 (test code <0.01 See_Comment [Auto mated = 4398037857) message] The s ystem which generated this result transmitted reference range : 10*3/?L. The reference range was not used to interpret this result as normal/abnormal . GRAN MAT (NEUT) % 67.2 % (test code = 770-8) IMM GRAN % (test code 0.60 % = 2794203460) LYMPH % (test code = 21.7 % 736-9) MONO % (test code = 3.3 % 5905-5) EOS % (test code = 6.6 % 713-8) BASO % (test code = 0.6 % 706-2) GRAN MAT x10^3(ANC) 7.05 10*3/uL 1.88-7.09 (test code = 0775561174) IMM GRAN x10^3 (test 0.06 10*3/uL 0.00-0.06 code = 6308978985) LYMPH x10^3 (test code 2.28 10*3/uL 1.32-3.29 = 731-0) MONO x10^3 (test code 0.35 10*3/uL 0.33-0.92 = 742-7) EOS x10^3 (test code = 0.69 10*3/uL 0.03-0.39 H 711-2) BASO x10^3 (test code 0.06 10*3/uL 0.01-0.07 = 704-7) Lab Interpretation Abnormal (test code = 51984-3) NPI:[id number] GLUCOSE (AUTOMATED)2020-07-14 13:01:17 Test Item Value Reference Range Interpretation Comments POCT GLU (test code = 5105395650) 107 mg/dL 70-110 Lab Interpretation (test code = Normal 10957-7) NPI:[id number] CULTURE [id number] 07:01:06 Test Item Value Reference Range Interpretation Comments Blood Culture-Aerobic No organisms No growth Previo us (test code = 48958-4) isolated prelim inary verified result was Culture In Progress on 07/09/2020 at 05 CDTPrevious preliminary verified result was No growth a t 24 hours on 07/10/2020 at 03 16 CDTPrevious preliminary verified result was No growth a t 48 hours on 07/11/2020 at 03 16 CDTPrevious preliminary verified result was No growth a t 72 hours on 07/12/2020 at 01 CDT Blood No organisms No growth Previous Culture-Anaerobic isolated preliminar y (test code = 37413-0) verifi ed result was Culture In Progress [...] CDT Lab Interpretation Normal (test code = 37315-4) NPI:[id number] CULTURE [id number] 07:01:05 Test Item Value Reference Range Interpretation Comments Blood Culture-Aerobic No organisms No growth Previo us (test code = 68963-1) isolated prelim inary verified result was Culture [...] Culture-Anaerobic isolated preliminar y (test code = 33558-1) verifi ed result was Culture In Progress [...] CDT Lab Interpretation Normal (test code = 30621-6) NPI:[id number] GLUCOSE (AUTOMATED)2020-07-14 02:02:19 Test Item Value Reference Range Interpretation Comments POCT GLU (test code = 7072455035) 281 mg/dL 70-110 H Lab Interpretation (test code = Abnormal 09223-1) NPI:[id number] PNEUMONIAE ANTIBODY, [id number] 22:06:07 Test Item Value Reference Range Interpretation [...] an 12 months post-infection. Performed By: ARTURO [address] [place] [id number] aboratory Director: Lisbet Odom MD [Aut omated message] The sy stem which generated this result transmit romero reference range : <=0.76. The reference r palmira was not used to int erpret this result as normal/abnormal . NPI:[id number] 16:48:41 Test Item Value Reference Range Interpretation Comments SPUTUM CULTURE 2+ Respiratory santhosh: (test code = 622-1) Commensal upper respiratory microorganisms only. Gram stain (test Few Epithelial cells code = 664-3) present MARIPOSA (test code = Bacterial pathogens MARIPOSA) associated with lower respiratory infections were not identified, which include Pseudomonas aeruginosa and Staphylococcus aureus (MRSA or MSSA). NPI:[id number]. METABOLIC PANEL (92279)2020-07-12 11:23:13 Test Item Value Reference Range Interpretation Comments NA (test code = 137 mmol/L 135-145 9420735384) K (test code = 4.9 mmol/L 3.5-5.0 3140013985) CL (test code = 96 mmol/L 98-108 L 6407839720) CO2 TOTAL (test code = 33 mmol/L 23-31 H 0478261459) AGAP (test code = 2-16 0279616433) BUN (test code = 13 mg/dL 7-23 8624662332) GLUCOSE (test code = 172 mg/dL 70-110 H 0016363968) CREATININE (test code = 0.40 mg/dL 0.50-1.04 L 8570500064) TOTAL BILI (test code = 0.5 mg/dL 0.1-1.9 2129975633) CALCIUM (test code = 9.4 mg/dL 8.6-10.6 9720508247) T PROTEIN (test code = 7.8 g/dL 6.3-8.2 2861362200) ALBUMIN (test code = 4.2 g/dL 3.5-5.0 5448437319) ALK PHOS (test code = 97 U/L 34-122 4856840527) ALTv (test code = 27 U/L 5-35 1742-6) AST(SGOT) (test code = 22 U/L 13-40 1563067078) eGFR (test code = mL/min/1.73m2 5754407487) MARIPOSA (test code = MARIPOSA) Association of [...] tests). Lab Interpretation Abnormal (test code = 89072-0) NPI:[id number] WITH [id number] 11:03:13 Test Item Value Reference Range Interpretation Comments WBC (test code = See_Comment [Automated 6887-2) message] The sy stem which generated this result transmitted reference range : 4.30 - 11.10 10*3/?L. The reference range was not used to interpret this result as normal/abnormal . RBC (test code = See_Comment [Automated 991-8) message] The sy stem which generated this [...] RDW-SD (test code = 47.8 fL 39.0-49.9 41855-1) RDW-CV (test code = 14.9 % 12.0-15.5 788-0) PLT (test code = See_Comment [Automated 457-3) message] The sy stem which generated this result transmitted reference range : 166 - 358 10*3/ ?L. The reference r palmira was not used to interpret this result as normal/abnormal . MPV (test code = 10.8 fL 9.5-12.9 91868-9) NRBC/100 WBC (test See_Comment [Automat ed code = 9190444620) message] The system which generated this result transmitted reference range : 0.0 - 10.0 /100 WBCs. The refer ence range was not u sed to interpret th is result as normal/abnormal . NRBC x10^3 (test code <0.01 See_Comment [Auto mated = 0152992325) message] The s ystem which generated this result transmitted reference range : 10*3/?L. The reference range was not used to interpret this result as normal/abnormal . GRAN MAT (NEUT) % 87.7 % (test code = 770-8) IMM GRAN % (test code 1.60 % = 0768471175) LYMPH % (test code = 9.0 % 736-9) MONO % (test code = 1.4 % 5905-5) EOS % (test code = 0.1 % 713-8) BASO % (test code = 0.2 % 706-2) GRAN MAT x10^3(ANC) 8.92 10*3/uL 1.88-7.09 H (test code = 6570752854) IMM GRAN x10^3 (test 0.16 10*3/uL 0.00-0.06 H code = 5735728415) LYMPH x10^3 (test code 0.92 10*3/uL 1.32-3.29 L = 731-0) MONO x10^3 (test code 0.14 10*3/uL 0.33-0.92 L = 742-7) EOS x10^3 (test code = <0.03 0.03-0.39 L 711-2) BASO x10^3 (test code <0.03 0.01-0.07 = 704-7) Lab Interpretation Abnormal (test code = 21046-7) NPI:[id number] THORAX WO [id number] 22:18:13 Patchy groundglass opacities in the bilateral lungs with more confluentconsolidative opacities in the right lower lobe, consistent with multifocalatypical pneumonia. No pleural effusion or abscess. RL: 4131AFC: 16100 End of report RING PHYSICIAN: MAYTE ADDISON [...] Results Inft User - 07/11/2020 5:19 PM CDT ORDERING PHYSICIAN: MAYTE ADDISONHISTORY: Neck, effusion, or abscess [...] pneumonia. No pleural effusion or abscess.RL: 4131AFC: 13610Jho of report NPI:[id number] 21:45:45 Test Item Value Reference Range Interpretation Comments FREE T4 (test code = See_Comment [Autom ated message] 5547250381) The system qcue generated this result transmitted ref erence range: 0.78 - 2 .20 ng/dL:. The ref erence range was not u sed to interpret this result as normal/abnor mal. Lab Interpretation (test Normal code = 99053-3) NPI:[id number] 21:44:29 Test Item Value Reference Range Interpretation Comments FREE T3 (test code = 6599902439) 3.01 pg/mL 2.77-5.27 Lab Interpretation (test code = Normal 43014-8) NPI:[id number]-RFFDLIUO [id number] 10:51:09 Test Item Value Reference Range Interpretation Comments NT-proBNP (test code 38 pg/mL See_Comment [Autom ated = 1662750945) message] The system which generated this result transmitted reference range : <=125. The reference range was not used to interpret this result as normal/abnormal . MARIPOSA (test code = MARIPOSA) Biotin has been reported to cause a negative bias, interpret results relative to patient's use of biotin. Lab Interpretation Normal (test code = 30809-7) NPI:[id number]. METABOLIC PANEL (21751)2020-07-11 10:42:50 Test Item Value Reference Range Interpretation Comments NA (test code = 138 mmol/L 135-145 1292675729) K (test code = 4.5 mmol/L 3.5-5.0 5465512300) CL (test code = 101 mmol/L 98-108 8709576885) CO2 TOTAL (test code = 31 mmol/L 23-31 0326124103) AGAP (test code = 2-16 0349021229) BUN (test code = 15 mg/dL 7-23 0957644591) GLUCOSE (test code = 100 mg/dL 70-110 7477319721) CREATININE (test code = 0.46 mg/dL 0.50-1.04 L 7386317645) TOTAL BILI (test code = 0.5 mg/dL 0.1-1.4 8371774287) CALCIUM (test code = 8.9 mg/dL 8.6-10.6 6471560640) T PROTEIN (test code = 7.1 g/dL 6.3-8.2 3434999816) ALBUMIN (test code = 3.9 g/dL 3.5-5.0 7567106607) ALK PHOS (test code = 80 U/L 34-122 4669974089) ALTv (test code = 19 U/L 5-35 1742-6) AST(SGOT) (test code = 32 U/L 13-40 0558388884) eGFR (test code = mL/min/1.73m2 1063981610) MARIPOSA (test code = MARIPOSA) Association of [...] tests). Lab Interpretation Abnormal (test code = 27169-7) NPI:[id number] [id number] 18:45:00 Test Item Value Reference Range Interpretation Comments S. pneumoniae antigen (test code = Negative Negative 8751970863) Lab Interpretation (test code = Normal 22454-7) NPI:[id number] 13:39:03 Test Item Value Reference Range Interpretation Comments URINE CULTURE (test No aerobic growth (< code = 630-4) 1000 CFU/mL) NPI:[id number] [id number] 11:16:54 Test Item Value Reference Range Interpretation Comments ESR (test code = See_Comment H [Automated message] 8715177284) The system qcue generated this result transmitted ref erence range: 0 - 20 m m/HR. The reference r palmira was not used to interpret this result as normal/abnor mal. Lab Interpretation (test Abnormal code = 36092-0) NPI:[id number] [id number] 10:13:54 Test Item Value Reference Range Interpretation Comments TROPONIN I (test 0.001 ng/mL See_Comment [Automated code = 3023980055) message] The system which generated this result [...] ? Lab Interpretation Normal (test code = 57392-5) NPI:[id number]-DIEGWGID [id number] 10:11:17 Test Item Value Reference Range Interpretation Comments NT-proBNP (test code 76 pg/mL See_Comment [Autom ated = 5542993687) message] The system which generated this result transmitted reference range : <=125. The reference range was not used to interpret this result as normal/abnormal . MARIPOSA (test code = MARIPOSA) Biotin has been reported to cause a negative bias, interpret results relative to patient's use of biotin. Lab Interpretation Normal (test code = 25493-9) NPI:[id number]. METABOLIC PANEL (06741)2020-07-10 10:02:17 Test Item Value Reference Range Interpretation Comments NA (test code = 137 mmol/L 135-145 6946308953) K (test code = 4.7 mmol/L 3.5-5.0 5736009959) CL (test code = 103 mmol/L 98-108 0744554414) CO2 TOTAL (test code 30 mmol/L 23-31 = 5854015172) AGAP (test code = 2-16 9521159750) BUN (test code = 17 mg/dL 7-23 2861233001) GLUCOSE (test code = 107 mg/dL 70-110 6343924249) CREATININE (test code 0.51 mg/dL 0.50-1.04 = 9401945446) TOTAL BILI (test code 0.4 mg/dL 0.1-1.1 = 1470421165) CALCIUM (test code = 9.0 mg/dL 8.6-10.6 9565503070) T PROTEIN (test code 6.9 g/dL 6.3-8.2 = 5875568089) ALBUMIN (test code = 3.8 g/dL 3.5-5.0 9784107183) ALK PHOS (test code = 79 U/L 34-122 2726725932) ALTv (test code = 16 U/L 5-35 1742-6) AST(SGOT) (test code 20 U/L 13-40 = 1362708037) eGFR (test code = mL/min/1.73m2 6089769666) MARIPOSA (test code = MARIPOSA) Association of [...] or urine or abnormalities in imaging tests). NPI:[id number] 10:02:17 Test Item Value Reference Range Interpretation Comments MAGNESIUM (test code = 3959264261) 2.1 mg/dL 1.7-2.4 Lab Interpretation (test code = Normal 29420-9) NPI:[id number] WITH [id number] 09:51:36 Test Item Value Reference Range Interpretation Comments WBC (test code = See_Comment H [Automated 3142-2) message] The sy stem which generated this result transmitted reference range : 4.30 - 11.10 10*3/?L. The reference range was not used to interpret this result as normal/abnormal . RBC (test code = See_Comment [Automated 762-8) message] The sy stem which generated this [...] RDW-SD (test code = 49.4 fL 39.0-49.9 61912-0) RDW-CV (test code = 15.3 % 12.0-15.5 788-0) PLT (test code = See_Comment [Automated 777-3) message] The sy stem which generated this result transmitted reference range : 166 - 358 10*3/ ?L. The reference r palmira was not used to interpret this result as normal/abnormal . MPV (test code = 10.8 fL 9.5-12.9 31710-5) NRBC/100 WBC (test See_Comment [Automat ed code = 0076729350) message] The system which generated this result transmitted reference range : 0.0 - 10.0 /100 WBCs. The refer ence range was not u sed to interpret th is result as normal/abnormal . NRBC x10^3 (test code <0.01 See_Comment [Auto mated = 6182939444) message] The s ystem which generated this result transmitted reference range : 10*3/?L. The reference range was not used to interpret this result as normal/abnormal . GRAN MAT (NEUT) % 71.0 % (test code = 770-8) IMM GRAN % (test code 0.50 % = 4954955595) LYMPH % (test code = 18.6 % 736-9) MONO % (test code = 5.8 % 5905-5) EOS % (test code = 3.7 % 713-8) BASO % (test code = 0.4 % 706-2) GRAN MAT x10^3(ANC) 8.61 10*3/uL 1.88-7.09 H (test code = 4991011847) IMM GRAN x10^3 (test 0.06 10*3/uL 0.00-0.06 code = 6837275614) LYMPH x10^3 (test code 2.26 10*3/uL 1.32-3.29 = 731-0) MONO x10^3 (test code 0.71 10*3/uL 0.33-0.92 = 742-7) EOS x10^3 (test code = 0.45 10*3/uL 0.03-0.39 H 711-2) BASO x10^3 (test code 0.05 10*3/uL 0.01-0.07 = 704-7) Lab Interpretation Abnormal (test code = 56456-1) NPI:[id number] PANEL BY [id number] 07:41:20 Test Item Value Reference Range Interpretation Comments Adenovirus (test code = Negative Negative 85992-2) Coronavirus HKU1 (test Negative Negative code = 01702-0) Coronavirus NL63 (test Negative Negative code = 79152-9) Coronavirus 229E (test Negative Negative code = 74189-0) Coronavirus OC43 (test Negative Negative code = 30086-7) Human Metapneumovirus Negative Negative (test code = 99684-1) Human Negative Negative Rhinovirus/Enterovirus (test code = 72313-6) Influenza A (test code = Negative Negative 10116-3) Influenza B (test code = Negative Negative 92052-7) Parainfluenza Virus 1 Negative Negative (test code = 09298-0) Parainfluenza Virus 2 Negative Negative (test code = 94416-3) Parainfluenza Virus 3 Negative Negative (test code = 81520-6) Parainfluenza Virus 4 Negative Negative (test code = 15832-9) Respiratory Syncytial Negative Negative Virus (test code = 84830-1) Bordetella parapertussis Negative Negative (test code = 85149-1) Bordetella pertussis Negative Negative (test code = 29262-6) Chlamydia pneumoniae Negative Negative (test code = 25191-7) Mycoplasma pneumoniae Negative Negative (test code = 49461-5) MARIPOSA (test code = MARIPOSA) Negative:A negative result does not rule-out infection. ?This assay does not test for all potential infectious agents. ? Positive:A positive test result does not necessarily indicate the presence of viable organism. ? Lab Interpretation (test Normal code = 38074-6) NPI:[id number] ONLY COVID [id number] 06:21:45COVID DMT InterpretationInterpretation/Recommendations: Molecular NAAT Tests for [...] COVID-19 testing the patient has had at [facility], including molecular NAAT testing (more commonly known as PCR testing and Rapid ID Now testing) and antibody testing. It does not take into account any testing that a patient has had outside of the [facility] medical record. [facility] LABORATORY SERVICESCOVID Resul wjNAWK-TuJ-9 Rapid ID NOW (no units) ? ? Date ? Value ? 07/09/2020 ? Not Detected ? [facility] NPI:[id number] URINARY ANTIGEN [id number] 23:26:39 Test Item Value Reference Range Interpretation Comments Legionella Urinary Negative Negative Antigen (test code = 7532910204) MARIPOSA (test code = MARIPOSA) Negative for [...] test. Lab Interpretation (test Normal code = 02268-3) NPI:[id number] [id number] 21:06:36 Test Item Value Reference Range Interpretation Comments TROPONIN I (test 0.002 ng/mL See_Comment [Automated code = 0179634148) message] The system which generated this result transmitted reference range : <=0.034. The reference range was not used to interpret this result as normal/abnormal . MARPIOSA (test code = Equal or Less than [...] ? Lab Interpretation Normal (test code = 85878-3) NPI:[id number],CLC OR LCC ONLY - INFLUENZA A & B DIRECT [id number] 20:54:43 Test Item Value Reference Range Interpretation Comments Influenza A (test code = 46950-0) Negative Negative Influenza B (test code = 67023-7) Negative Negative Lab Interpretation (test code = Normal 83982-2) NPI:[id number] 17:02:04 Test Item Value Reference Interpretation Comments Range Procalcitonin (test <0.02 See_Comment [Automa romero code = 9589944024) message] The system which generated this result [...] lung abscess/empyema. For further information please refer to:[email or web address] p Lab Interpretation Normal (test code = 21970-4) NPI:[id number] NITROGEN, URINE [id number] 16:26:49 Test Item Value Reference Range Interpretation Comments UREA N UR (test code = 9358356746) 546 mg/dL NPI:[id number] CREAT RATIO URINE [id number] 13:05:11 Test Item Value Reference Range Interpretation Comments T. PROT U (test code = 2888-6) 22 mg/dL CREAT U (test code = 8979340885) 28.1 mg/dL Protein/Creatinine Ratio Urine 0.0-2.0 (test code = 1622024565) NPI:[id number], URINE [id number] 13:01:14 Test Item Value Reference Range Interpretation Comments NA URINE (test code = 8977766534) 26 mmol/L NPI:[id number] CHEST 1 [id number] 12:40:02 Right lower lung well-demarcated consolidation concerning for lobarpneumonia or atelectasis. Preliminary Report Dictated by Resident: Sushil Almaguer MD., have reviewed this study and agree withthe above report.EXAM: XR CHEST 1 VW COMPARISON: None HISTORY: Sob, hypoxia FINDINGS: Lines/Tubes: None. Lungs: A band of opacification is seen in the right lower lung. No pleuraleffusion or pneumothorax is identified. Heart/Mediastinum: The cardiomediastinal [...] lobarpneumonia or atelectasis.Preliminary Report Dictated by Resident: Evaristo Solis, Sushil Whitman MD., have reviewed this study and agree withthe above report. NPI:[id number] STIMULATING [id number] 12:35:31 Test Item Value Reference Range Interpretation Comments TSH (test code = See_Comment L [Automated message] 0788323350) The system qcue generated this result transmitted ref erence range: 0.45 - 4 .70 mIU/L. The refe rence range was not u sed to interpret this result as normal/abnor mal. Lab Interpretation (test Abnormal code = 84534-5) NPI:[id number] [id number] 12:14:52 Test Item Value Reference Range Interpretation Comments NT-proBNP (test code 46 pg/mL See_Comment [Autom ated = 3517746936) message] The system which generated this result transmitted reference range : <=125. The reference range was not used to interpret this result as normal/abnormal . MARIPOSA (test code = MARIPOSA) Biotin has been reported to cause a negative bias, interpret results relative to patient's use of biotin. Lab Interpretation Normal (test code = 74627-6) NPI:[id number] 12:10:35 Test Item Value Reference Range Interpretation Comments APPEARANCE (test code = Clear Clear 1545871262) COLOR (test code = Straw Yellow A 6446736619) PH (test code = 4.8-8.0 1202772962) SP GRAVITY (test code = 1.003-1.030 9917156023) GLU U QUAL (test code = Normal Normal 5102637379) BLOOD (test code = 2+ Negative A 6953866308) KETONES (test code = Negative Negative 5460800132) PROTEIN (test code = Negative Negative 2887-8) UROBILIN (test code = Normal Normal 0134478759) BILIRUBIN (test code = Negative Negative 0344458173) NITRITE (test code = Negative Negative 5347356045) LEUK CLIFFORD (test code = Negative Negative 4623769013) RBC/HPF (test code = See_Comment H [Autom ated message] 5344906064) The system qcue generated this result transmitted ref erence range: 0 - 3 HP F. The reference range was not used to int erpret this result as normal/abnormal . WBC/HPF (test code = See_Comment [Autom ated message] 5515542693) The system qcue generated this result transmitted ref erence range: 0 - 5 HP F. The reference range was not used to int erpret this result as normal/abnormal . BACTERIA (test code = Negative Negative 3747184206) SQ EPITH (test code = HPF 4174042967) Lab Interpretation (test Abnormal code = 00277-1) NPI:[id number] PANEL (32898)(TOTAL CHOLESTEROL, TRIGLYCERIDES, HDL) 2020-07-09 12:04:52 Test Item Value Reference Range Interpretation Comments CHOL (test code = 183 mg/dL 120-200 9326899199) HDL (test code = 61 mg/dL >50 3691717229) HDLC RATIO (test code = See_Comment [Au tomated message] 0928277171) The system qcue generated this result transmit romero reference range : <=4.5. The refe rence range was not u sed to interpret th is result as normal/abnormal . TRIG (test code = 68 mg/dL 30-170 3623783617) LDL CHOL (test code = 108 mg/dL See_Comment [Auto mated message] 02764-9) The system qcue generated this result transmit romero reference range : <=160. The refe rence range was not u sed to interpret th is result as normal/abnormal . VLDL (test code = 14 mg/dL 5-60 5170936858) Lab Interpretation (test Normal code = 05434-7) NPI:[id number] 12:04:52 Test Item Value Reference Range Interpretation Comments PHOSPHORUS (test code = 0942184162) 3.7 mg/dL 2.5-5.0 Lab Interpretation (test code = Normal 20774-8) NPI:[id number] 12:04:11 Test Item Value Reference Range Interpretation Comments CK (test code = 9242643476) 58 U/L 33-194 Lab Interpretation (test code = Normal 24156-9) NPI:[id number] HEMOGLOBIN (A1C)2020-07-09 11:48:12 Test Item Value Reference Range Interpretation Comments HGB A1C (test code = 6.2 % 4.0-5.7 H 4548-4) MARIPOSA (test code = MARIPOSA) Reference RangesNormal: <5.7%Prediabetes: 5.7 - 6.4%Diabetes: > 6.5% Lab Interpretation (test Abnormal code = 65005-4) NPI:[id number] [id number] 11:47:11 Test Item Value Reference Range Interpretation Comments TROPONIN I (test 0.000 ng/mL See_Comment [Automated code = 8987777503) message] The system which generated this result [...] ? Lab Interpretation Normal (test code = 95750-9) NPI:[id number] TIME / [id number] 11:40:31 Test Item Value Reference Range Interpretation Comments PROTIME PATIENT (test See_Comment [Auto mated message] code = 5964-2) The system [employer] generated this result transmitted ref erence range: 12.0 - 1 4.7 Seconds. The re ference range was not u sed to interpret this result as normal/abnor mal. INR (test code = 6301-6) Nor mal INR <1.1; Warfarin Therap eutic range 2.0 to 3. 0 or 2.5 to 3.5, dep ending upon the indica tions. Lab Interpretation (test Normal code = 22456-7) NPI:[id number] 07:28:47 Test Item Value Reference Range Interpretation Comments MAGNESIUM (test code = 2850962910) 2.5 mg/dL 1.7-2.4 H Lab Interpretation (test code = Abnormal 70255-7) NPI:[id number]. METABOLIC PANEL (68732)2020-07-09 07:28:27 Test Item Value Reference Range Interpretation Comments NA (test code = 135 mmol/L 135-145 4711504249) K (test code = 4.6 mmol/L 3.5-5.0 0988411905) CL (test code = 99 mmol/L 98-108 8760792137) CO2 TOTAL (test code = 26 mmol/L 23-31 2444467260) AGAP (test code = 2-16 4464016663) BUN (test code = 17 mg/dL 7-23 8431139440) GLUCOSE (test code = 190 mg/dL 70-110 H 8401445981) CREATININE (test code = 0.42 mg/dL 0.50-1.04 L 8025616374) TOTAL BILI (test code = 0.4 mg/dL 0.1-1.9 3635952223) CALCIUM (test code = 9.5 mg/dL 8.6-10.6 7021446422) T PROTEIN (test code = 8.8 g/dL 6.3-8.2 H 4576644154) ALBUMIN (test code = 4.5 g/dL 3.5-5.0 4535874105) ALK PHOS (test code = 126 U/L 34-122 H 6587950674) ALTv (test code = 20 U/L 5-35 1742-6) AST(SGOT) (test code = 29 U/L 13-40 6343585670) eGFR (test code = mL/min/1.73m2 2711475700) MARIPOSA (test code = MARIPOSA) Association of [...] tests). Lab Interpretation Abnormal (test code = 20235-2) NPI:[id number] (ID NOW RAPID TESTING)2020-07-09 06:30:42 Test Item Value Reference Range Interpretation Comments SARS-CoV-2 Rapid ID NOW Not Detected Not Detected (test code = 36004-8) MARIPOSA (test code = MARIPOSA) ID NOW COVID-19 Assay is an isothermal nucleic acid amplification test intended for the qualitative detection of nucleic acid from SARS-CoV-2 viral RNA in nasopharyngeal (BROOMMAKER) specimens. It is used under Emergency Use [...] indicated. Lab Interpretation Normal (test code = 28923-7) NPI:[id number] WITH [id number] 06:24:59 Test Item Value Reference Range Interpretation Comments WBC (test code = See_Comment H [Automated 7473-2) message] The system which generated this result transmit romero reference range : 4.30 - 11.10 10*3/?L. The reference range was not used to interpret this result as normal/abnormal . RBC (test code = See_Comment [Automated 216-8) message] The system which generated this result [...] RDW-SD (test code = 46.9 fL 39.0-49.9 09139-5) RDW-CV (test code = 14.6 % 12.0-15.5 788-0) PLT (test code = See_Comment [Automated 777-3) message] The system which generated this result transmit romero reference range : 166 - 358 10*3/ ?L. The reference range was not u sed to interpret th is result as normal/abnormal . MPV (test code = 10.9 fL 9.5-12.9 71167-9) NRBC/100 WBC (test See_Comment [Automat ed code = 9868653283) message] The system which generated this result transmit romero reference range : 0.0 - 10.0 /100 WBCs. The reference range was not used to interpret this result as normal/abnormal . NRBC x10^3 (test code See_Comment [Auto mated = 3645054659) message] The system which generated this result transmit romero reference range : 10*3/?L. The reference range was not used to interpret this result as normal/abnormal . GRAN MAT (NEUT) % 85.9 % (test code = 770-8) IMM GRAN % (test code 1.50 % = 7834715669) LYMPH % (test code = 10.9 % 736-9) MONO % (test code = 1.3 % 5905-5) EOS % (test code = 0.1 % 713-8) BASO % (test code = 0.3 % 706-2) GRAN MAT x10^3(ANC) 12.67 10*3/uL 1.88-7.09 H (test code = 2047074347) IMM GRAN x10^3 (test 0.22 10*3/uL 0.00-0.06 H code = 0000827776) LYMPH x10^3 (test code 1.61 10*3/uL 1.32-3.29 = 731-0) MONO x10^3 (test code 0.19 10*3/uL 0.33-0.92 L = 742-7) EOS x10^3 (test code = <0.03 0.03-0.39 L 711-2) BASO x10^3 (test code 0.05 10*3/uL 0.01-0.07 = 704-7) Lab Interpretation Abnormal (test code = 04424-5) NPI:[id number] [id number] 06:04:00Miguel Mendoza MD ? ? 07/09/2020 ?5:55 AMCritical CarePerformed by: Miguel Mendoza MDAuthorizedby: Miguel Mendoza MD Critical care provider statement: ?Critical care time (minutes): ?60 ?Critical care start time: ?07/08/2020 11:59 PM ?Critical care end time: ?07/09/2020 1:03 AM ?Critical caretime was exclusive of: ?Separately billable procedures and treating other patients and teaching time?Critical care was necessary to treat or prevent imminent or life-threatening deterioration of the following conditions: ?Circulatory failure, respiratory failure, shock, VACUUM TECHNICIAN failure or compromise and dehydration ?Critical care was time spent personally by me on the following activities: ?Ordering andperforming treatments and interventions, ordering and review of laboratory studies, ordering and review of radiographic studies, pulse oximetry, re-evaluation of patient's condition, review of old charts, obtaining history from patient or surrogate, interpretation of cardiac output measurements, examination of patient, evaluation of patient's response to treatment, discussions with consultants, development of treatment plan with patient or surrogate and blood draw for specimensNPI:[id number]"
[2021-06-21] MEDS ORDERED: LEVALBUTEROL 1.25 MG/3 ML NEB ONE ×2 (15:21→16:25)
[2021-06-21] MEDS ORDERED: METHYLPREDNISOLONE 125 MG INJ ONE (15:21)
[2021-06-21] MEDS ORDERED: MAGNESIUM SULFATE 1 gm IVPB 1 GM/100 ML BAG IV ONE (15:22)
[2021-06-21 15:40] LABS: Absolute Lymphocytes (CBC) 1.1 K/uL (0.7-4.9); Hematocrit 36.5 % (36.0-45.0); Lymphocytes % 11.4 % (15.3-44.8); MPV 8.4 fL (7.6-11.3); RBC Red Blood Cell Count 4.42 M/uL (3.86-4.86)
[2021-06-21 15:44] LABS: Albumin 3.1 g/dL (3.4-5.0); Bilirubin Total 0.2 mg/dL (0.2-1.0); Potassium 3.9 mmol/L (3.5-5.1); Protein, Total 7.5 g/dL (6.4-8.2); Troponin High Sensitivity 7.2 pg/mL (<58.9)
--- NOTE | 2021-06-21 16:50 | RAD REPORT ---
EXAM DESCRIPTION: RAD - Chest Single View - 06/21/2021 4:39 pm CLINICAL HISTORY: DYSPNEA Chest pain. COMPARISON: Chest Single View dated 06/07/2021; Chest Single View dated 03/31/2021; Chest Single View dated 12/14/2020; Chest Single View dated 05/25/2020 FINDINGS: Portable technique limits examination quality. Interstitial markings are mildly prominent which could indicate reactive airway disease or a mild vir al infection. The heart is upper limit normal in size. No displaced fractures.
[2021-06-21] MEDS ORDERED: KETOROLAC 30 MG/ML INJ ONE (17:04)
--- NOTE | 2021-06-21 17:59 | ER ---
Nurse's Notes [facility] Name: Kina Parham Age: 40 yrs Sex: Female : 1980 Arrival Date: 06/21/2021 Time: 14:57 Bed 7 Private MD: Diagnosis: Unspecified asthma with (acute) exacerbation Presentation: 06/21 14:57 Chief complaint: EMS states: [facility]. bp Coronavirus screen: At this time, the client does not indicate any symptoms associated with coronavirus-19. Ebola Screen: No symptoms or risks identified at this time. Initial Sepsis Screen: Does the patient meet any 2 criteria? RR > 20 per min. No. Patient's initial sepsis screen is negative. Does the patient have a suspected source of infection? No. Patient's initial sepsis screen is negative. Risk Assessment: Do you want to hurt yourself or someone else? Patient reports no desire to harm self or others. Onset of symptoms was June 21, 2021 at 14:00. Care prior to arrival: Med neb given. 14:57 Method Of Arrival: EMS: [facility] bp 14:57 Acuity: DOMINIC 2 bp Triage Assessment: 15:01 General: Appears distressed, uncomfortable, obese, Behavior is cooperative, appropriate bp for age, anxious. Pain: Denies pain. EENT: No deficits noted. Neuro: Level of Consciousness is awake, alert, obeys commands, Oriented to Appropriate for age. Cardiovascular: No deficits noted. Respiratory: Reports shortness of breath at rest on exertion Breath sounds with wheezes bilaterally. Onset: The symptoms/episode began/occurred today, the patient has moderate shortness of breath. GI: No signs and/or symptoms were reported involving the gastrointestinal system. : No signs and/or symptoms were reported regarding the genitourinary system. Derm: Skin is intact, Skin is diaphoretic, Skin temperature is cool. Musculoskeletal: No deficits noted. 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 - Social history:: Smoking status: Patient denies any tobacco usage or history of. Screenin:26 Abuse screen: Denies threats or abuse. Denies injuries from another. Nutritional bp screening: No deficits noted. Tuberculosis screening: No symptoms or risk factors identified. Fall Risk None identified. Assessment: 15:00 General: SEE TRIAGE NOTE. bp 17:00 Reassessment: No changes from previously documented assessment. Patient and/or family bp updated on plan of care and expected duration. Pain level reassessed. 18:00 Reassessment: PT OFFERED ADMIT BUT DECLINED. SP02 >93% AFTER AMBULATION. bp 18:00 Cardiovascular: Rhythm is sinus rhythm. bp 18:04 Respiratory: Airway is patent Respiratory effort is even, unlabored. bp 18:29 Reassessment: PT D/C HOME VIA W/C WITH FAMILY, DX WITH ASTHMA EXACERBATION. bp Vital Signs: 14:57 BP 180 / 95; Pulse 96; Resp 22; Pulse Ox 93% on R/A; bp 16:55 BP 147 / 78; Pulse 93; Resp 24 S; Temp 97.5; Pulse Ox 92% on 2 lpm NC; bp 18:02 BP 157 / 81; Pulse 88; Resp 24; Pulse Ox 96% ; bp ED Course: 14:57 Patient arrived in ED. bp 15:00 Triage completed. bp 15:04 Sosa Foster FNP is PHCP. jh7 15:04 Cirilo Myers MD is Attending Physician. jh7 15:06 Arm band placed on. bp 15:13 Anival May, RN is Primary Nurse. bp 15:21 Troponin HS Sent. mh5 15:21 BNP Sent. mh5 15:21 Initial lab(s) drawn, by pr, sent to lab. Inserted saline lock: 20 gauge in left mh5 antecubital area, using aseptic technique. Blood collected. 15:22 Patient has correct armband on for positive identification. Placed in gown. Bed in low mh5 position. Call light in reach. Side rails up X2. Adult w/ patient. Warm blanket given. media monitor on. Pulse ox on. NIBP on. 16:42 XRAY Chest (1 view) In Process Unspecified. EDMS 18:03 No provider procedures requiring assistance completed. IV discontinued, intact, bp bleeding controlled, No redness/swelling at site. Pressure dressing applied. Administered Medications: 15:27 Drug: SOLU-Medrol (methylPrednisoLONE) 125 mg Route: IVP; Site: left antecubital; bp 17:17 Follow up: Response: No adverse reaction bp 15:28 Drug: Xopenex (levalbuterol) (3) 1.25 mg Route: Inhalation; bp 15:28 Drug: Magnesium Sulfate 1 grams Route: IVPB; Infused Over: 1 hrs; Site: left bp antecubital; 17:17 Follow up: IV Status: Completed infusion; IV Intake: 100ml bp 16:25 Drug: Xopenex (levalbuterol) (3) 1.25 mg Route: Inhalation; bp 17:05 Drug: Ketorolac 30 mg Route: IVP; Site: left antecubital; bp 17:27 Follow up: Response: No adverse reaction bp Intake: 17:17 IV: 100ml; Total: 100ml. bp Outcome: 17:58 Discharge ordered by MD. villagomez 18:03 Discharged to home ambulatory, with family. bp 18:03 Condition: stable 18:03 Discharge instructions given to patient, family, Instructed on discharge instructions, follow up and referral plans. medication usage, Demonstrated understanding of instructions, follow-up care, medications, Prescriptions given X 3. 18:31 Patient left the ED. bp Signatures: Dispatcher [employer] Roula Rosa 5 Amadeo Donnelly, RN RN jl7 Anival May, RN RN Sosa Flowers, RECORDS SPECIALIST ELIZABETH jh7 Corrections: (The following items were deleted from the chart) 17:27 16:55 BP 147 / 78; Pulse 93bpm; Resp 24bpm; Spontaneous; Pulse Ox 92% 2 lpm Nasal bp Cannula; jl7
--- NOTE | 2021-06-21 17:59 | EDPHYS ---
Physician Documentation [facility] Name: Kina Parham Age: 40 yrs Sex: Female : 1980 Arrival Date: 06/21/2021 Time: 14:57 Bed 7 Private MD: ED Physician Cirilo Myers HPI: 06/21 15:22 This 40 yrs old Female presents to ER via EMS with complaints of Asthma jh7 Exacerbation, Shortness Of Breath. 15:22 The patient presents to the emergency department with wheezing, Current therapy: jh7 Albuterol inhaler (pt ran out yesterday), that began without any particular precipitating event. Onset: The symptoms/episode began/occurred today. The patient states that she began feeling short of breath today. She reports that she ran out of her albuterol inhaler yesterday. She states that she also has high blood pressure, and went to see her doctor for a headache. Due to her shortness of breath, she was sent to the ER for asthma exacerbation.. 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 - Social history:: Smoking status: Patient denies any tobacco usage or history of. ROS: 15:22 Constitutional: Negative for fever, chills, and weight loss, Eyes: Negative for injury, jh7 pain, redness, and discharge, Neck: Negative for injury, pain, and swelling, Cardiovascular: Negative for chest pain, palpitations, and edema, Abdomen/GI: Negative for abdominal pain, nausea, vomiting, diarrhea, and constipation, Skin: Negative for injury, rash, and discoloration, Neuro: Negative for headache, weakness, numbness, tingling, and seizure. 15:22 Cardiovascular: 15:22 Respiratory: Positive for orthopnea, shortness of breath, at rest. wheezing, inspiratory, expiratory. 15:22 Neuro: Positive for headache. 15:22 All other systems are negative. Exam: 15:22 Neck: Trachea midline, no thyromegaly or masses palpated, and no cervical [facility] lymphadenopathy. Supple, full range of motion without nuchal rigidity, or vertebral point tenderness. Chest/axilla: Normal chest wall appearance and motion. Nontender with no deformity. No lesions are appreciated. Cardiovascular: Regular rate and rhythm with a normal S1 and S2. No gallops, murmurs, or rubs. Normal PMI, no JVD. No pulse deficits. Abdomen/GI: Soft, non-tender, with normal bowel sounds. No distension or tympany. No guarding or rebound. No evidence of tenderness throughout. Back: No spinal tenderness. No costovertebral tenderness. Full range of motion. Skin: Warm, dry with normal turgor. Normal color with no rashes, no lesions, and no evidence of cellulitis. 15:22 Constitutional: The patient appears alert, awake, in obvious distress, mildly distressed, uncomfortable. 15:22 Respiratory: mild respiratory distress is noted, Respirations: labored breathing, tachypnea, Breath sounds: wheezing: inspiratory expiratory that is moderate, is heard diffusely, Respiratory rate: 28 Vital Signs: 14:57 BP 180 / 95; Pulse 96; Resp 22; Pulse Ox 93% on R/A; bp 16:55 BP 147 / 78; Pulse 93; Resp 24 S; Temp 97.5; Pulse Ox 92% on 2 lpm NC; bp 18:02 BP 157 / 81; Pulse 88; Resp 24; Pulse Ox 96% ; bp MDM: 15:06 Patient medically screened. ruchi 18:33 Differential diagnosis: acute asthma, reactive airway. Data reviewed: vital signs, [facility] nurses notes, lab test result(s), radiologic studies, plain films. Data interpreted: Pulse oximetry: is 96 %. Interpretation: normal. Test interpretation: by ED physician or midlevel provider: ECG, plain radiologic studies. Counseling: I had a detailed discussion with the patient and/or guardian regarding: the historical points, exam findings, and any diagnostic results supporting the discharge/admit diagnosis, to return to the emergency department if symptoms worsen or persist or if there are any questions or concerns that arise at home. ED course: There were no significant findings on the patient's labs or x-rays. She improved significantly after medication therapy. Her O2 sat ranged from 92 to 96% on room air. The patient still exhibited mild inspiratory and expiratory wheezing and slight tachypnea after medication therapy. Discussed possibly admitting the patient for the night. The patient stated that she would rather go home since she was feeling much better. Informed her that if her symptoms returned or worsened, she would need to return to the ER immediately and would likely be admitted. The patient understood the plan of care.. 06/21 15:13 Order name: CMP; Complete Time: 16:15 [facility] 06/21 15:13 Order name: CBC with Diff; Complete Time: 16:15 [facility] 06/21 15:13 Order name: Troponin HS; Complete Time: 16:15 [facility] 06/21 15:13 Order name: XRAY Chest (1 view); Complete Time: 16:53 [facility] 06/21 15:13 Order name: BNP; Complete Time: 16:15 [facility] 06/21 15:13 Order name: Cardiac monitoring; Complete Time: 15:21 [facility] 06/21 15:13 Order name: EKG - Nurse/Tech; Complete Time: 17:17 [facility] 06/21 15:13 Order name: IV Saline Lock; Complete Time: 15:21 [facility] 06/21 15:13 Order name: Labs collected and sent; Complete Time: 15:21 [facility] 06/21 15:13 Order name: O2 Per Protocol; Complete Time: 15:21 [facility] 06/21 15:13 Order name: O2 Sat Monitoring; Complete Time: 15:21 [facility] Administered Medications: 15:27 Drug: SOLU-Medrol (methylPrednisoLONE) 125 mg Route: IVP; Site: left antecubital; bp 17:17 Follow up: Response: No adverse reaction bp 15:28 Drug: Xopenex (levalbuterol) (3) 1.25 mg Route: Inhalation; bp 15:28 Drug: Magnesium Sulfate 1 grams Route: IVPB; Infused Over: 1 hrs; Site: left bp antecubital; 17:17 Follow up: IV Status: Completed infusion; IV Intake: 100ml bp 16:25 Drug: Xopenex (levalbuterol) (3) 1.25 mg Route: Inhalation; bp 17:05 Drug: Ketorolac 30 mg Route: IVP; Site: left antecubital; bp 17:27 Follow up: Response: No adverse reaction bp Disposition Summary: 06/21/21 17:58 Discharge Ordered Location: Home [facility] Problem: new [facility] Symptoms: have improved [facility] Condition: Stable [facility] Diagnosis - Unspecified asthma with (acute) exacerbation [facility] Followup: [facility] - With: Private Physician - When: 2 - 3 days - Reason: Re-evaluation by your physician Discharge Instructions: - Discharge Summary Sheet 7 - Asthma, Adult 7 - Asthma Attack [facility] Forms: - Medication Reconciliation Form [facility] - Thank You Letter [facility] - Antibiotic Education [facility] - Prescription Opioid Use [facility] - Work release form Prescriptions: - ProAir HFA 90 mcg/actuation Inhalation HFA aerosol inhaler - inhale 2 puff by INHALATION route every 4-6 hours; 1 Inhaler; Refills: 0, [facility] Product Selection Permitted - Albuterol Sulfate 2.5 mg /3 mL (0.083 %) Inhalation Solution for Nebulization - inhale 1 unit by NEBULIZATION route every 8 hours As needed; 1 box; Refills: 0, [facility] Product Selection Permitted - Medrol (Anthony) 4 mg Oral Tablets, Dose Pack - take 1 tablet by ORAL route as directed - follow package instructions; 1 [facility] packet; Refills: 0, Product Selection Permitted Signatures: Dispatcher [employer] EDMS Cirilo Myers MD MD cha Peltier, Brian, RN RN bp Sosa Foster FNP BOILER WELDER [facility] Corrections: (The following items were deleted from the chart) 18:41 18:33 Data reviewed: vital signs, nurses notes, lab test result(s), EKG, radiologic [facility] studies, plain films, [facility] 18:41 18:33 ED course: There were no significant findings on the patient's labs, EKG, or [facility] x-rays. She improved significantly after medication therapy. Her O2 sat ranged from 92 to 96% on room air.. [facility]
[2021-06-21 21:43] VITALS: TEMP 97.5
[2021-06-21 21:44] VITALS: BP 157/81; O2SAT 96
== END 2021-06-21 18:31 | disposition home or self-care (01) ==
LOC: ER 14:55
DX: J45.901 Unspecified asthma with (acute) exacerbation (principal); I10 Essential (primary) hypertension
CPT/HCPCS: 85025; 36415; 84484; 80053; 83880; 71045; J3475; J2930; 96365; 96366; 96375; 99285

== ENCOUNTER 2021-07-15 21:30 | Observation (INO) | payer OTHER ==
--- OUTSIDE RECORDS SUMMARY | 2021-07-15 21:34 | XMS REPORT | Continuity of Care Document ---
:1980 Author Organization [facility] t Address [address] [place] [address] [address] [place] [address] Care Team Providers Name Role Phone Magda Gilliam Attending Clinician Tamika Vieira DO Attending Clinician Jenaro MERINO Attending Clinician Sarah VIEIRA Attending Clinician Unavailable Prema Mendoza MD Attending Clinician Misael DEVINE Attending Clinician Prema MENDOZA Attending Clinician Unavailable Jenaro MERINO Admitting Clinician Misael DEVINE Admitting Clinician Problems Condition Condition Condition Status Onset Resolution Last Treating Co mments Source Name Details Category Date Date Treatment Clinician Date Shortness Shortness Disease Active Uni vers of breath of breath 5-27 ity of 00:00: [place] 00 [facility] Pneumonia Pneumonia Disease Active Uni vers 5-27 ity of 00:00: 00 [facility] RESENDIZ RESENDIZ Disease Active Univers (dyspnea (dyspnea 5-27 ity of on on 00:00: [place] exertion) exertion) [facility] Tachycardi Tachycardi Disease Active U nivers a a 5-27 ity of 00:00: [place] 00 [facility] Essential Essential Disease Active Uni vers hypertensi hypertensi 5-27 it y of on on 00:00: [place] 00 [facility] Branch Normal Normal Disease Active Univers delivery delivery 09-13 ity of 00:00: [place] 00 [facility] Screening Screening Disease Active Overview: Univers for for 7- Formattin ity of diabetes diabetes 00:00: g of this Kike as mellitus mellitus 00 note Medica l might be Branch different from the original. ICD10 Diagnosis Term Ledger Poster Utility 33-34 33-34 Disease Active Univers completed completed ity of weeks of weeks of [place] gestation( gestation( Dc dical 765.27) 765.27) Branch Body mass Body mass Disease Active Uni vers index 40 index 40 ity of and over, and over, [facility] adult adult [facility] Carrier or Carrier or Disease Active U nivers suspected suspected ity of carrier of carrier of [facility] group B group B Medical Streptococ Streptococ Br anch cus cus Insufficie Insufficie Disease Active U nivers nt nt ity of [facility] Morbid Morbid Disease Active Univers obesity obesity ity of [facility] [place] [facility] Other Other Disease Active Univers abnormal abnormal ity of glucose glucose [facility] [place] [facility] Other Other Disease Active Univers ity of screening screening [facility] Screening Screening Disease Active Uni vers examinatio examinatio it y of n for n for [place] rubella rubella [facility] Supervisio Supervisio Disease Active U nivers n of other n of other it y of normal normal [place] [facility] Branch Allergies, Adverse Reactions, Alerts Allergy Allergy Status Severity Reaction(s) Onset Inactive Treating Comm ents Source Name Type Date Date Clinician NO KNOWN Drug Active Univers ALLERGIE Class ity of S [facility] [place] [facility] Social History Social Habit Start Date Stop Date Quantity Comments Source Exposure to Not sure [facility] SARS-CoV-2 [place] [facility] (event) Branch Tobacco use and 2020-07-27 2020-07-27 Never used Universit y of exposure 00:00:00 00:00:00 [facility] [place] [facility] Alcohol intake 2020-07-27 2020-07-27 Ex-drinker [facility] 00:00:00 00:00:00 (finding) [facility] [place] [facility] Sex Ass[birth year] At [birth year] Universit y of 00:00:00 00:00:00 [facility] [place] [facility] Smoking Status Start Date Stop Date Source Never smoker [facility] Medications Ordered Filled Start Stop Current Ordering Indication Dosage Frequency Signature Comments Components Source Medication Medication Date Date Medication? Clinician (SIG) Name Name methylPREDN Yes [id number] Take by Univers ISolone 4 6-15 mouth ity of mg tablets 00:00: [place]-INSTRU [place] 00 CTIONS. Medical follow Branch package directions methylPREDN 2020-0 Yes [id number] Take by [facility] ISolone 4 6-15 mouth ity of mg tablets 00:00: SEE-INSTRU [place] 00 CTIONS. Medical follow Branch package directions methylPREDN 2020-0 Yes 40mg 40 mg, Univ ers ISolone sod 6-14 Intravenou it y of succ 19:00: s, Q8H, [place] (SOLU-MEDRO 00 First dose Me dical L (PF)) on [facility] injection 07/27/20 at 40 mg 1400, Until Discontinu ed, Routine iopamidol 0 2021- No [id number] 100mL 100 mL, [facility] (ISOVUE 14 06-14 Intravenou ity o f 370-500 mL) 16:30: 15:12 s, ONCE, 1 [place] injection 00 :00 dose, [facility] Medic al 100 mL 07/27/20 at Branch 1130, Routine lisinopriL 2020-0 Yes 40mg 40 mg, Unive rs (PRINIVIL,Z 6-14 Oral, ity of ESTRIL) 14:00: DAILY, [place] tablet 40 00 First dose Medi charles mg on [facility] 07/27/20 at 0900, Until Discontinu ed hydroCHLORO 2020-0 Yes 12.5mg 12.5 mg, [facility] thiazide 6-14 Oral, ity of (ESIDRIX) 14:00: DAILY, [place] capsule 00 First dose Medica l 12.5 mg on [facility] 07/27/20 at 0900, Until Discontinu ed, Routine ipratropium 2020-0 Yes 3mL 3 mL, Unive rs -albuteroL -14 Inhalation ity of (DUONEB) 13:00: , QID, [place] 0.5 mg-3 00 First dose Medic al mg(2.5 mg on [facility] base)/3 mL 07/27/20 at nebulizer 0800, solution 3 Until mL Discontinu ed, Routine enoxaparin 2020-0 Yes 40mg 40 mg, Unive rs (LOVENOX) 6-14 Subcutaneo ity of injection 13:00: us, Q12H, [place] as 40 mg 00 First dose Medical on [facility] 07/27/20 at 0800, Until Discontinu ed, Routine docusate 2020-0 Yes 100mg 100 mg, Unive rs (COLACE) 07-27 Oral, ity of capsule 100 10:20: QDAILYPRN, [place] mg 17 Starting Medical [facility] Branch 07/27/20 at 0520, Until Discontinu ed, Routine, Constipati on HYDROcodone 2020- No 1{tbl} 1 tablet, Univers -acetaminop 07-27 Oral, ity of hen (NORCO 10:20: 10:19 Q6HPRN, [place] as 5) 5-325 mg 07 :07 Starting Medi charles tablet 1 Mon [place] tablet 07/27/20 at 0520, Until 07/29/20 at 0519, Routine, Pain (scale 4-6) acetaminoph Yes 650mg 650 mg, Un harriet en 07-27 Oral, ity of (TYLENOL) 10:19: Q6HPRN, [place] tablet 650 59 Starting Medic al mg [facility] 07/27/20 at 0519, Until Discontinu ed, Routine, Pain (scale 1-3), Temp > 38.5 C albuterol 2020- No 5mg 5 mg, Univer s (PROVENTIL) 07-27 Inhalation i ty of 2.5 mg /3 08:30: 08:41 , ONCE, 1 [place] mL (0.083 00 :00 dose, Mon Medic al %) 07/27/20 at [place] nebulizer 0330, STAT solution 5 mg albuterol 2020- No 5mg 5 mg, Univer s (PROVENTIL) 07-27 Inhalation i ty of 2.5 mg /3 07:15: 07:13 , ONCE, 1 [place] mL (0.083 00 :00 dose, Mon Medic al %) 07/27/20 at [place] nebulizer 0215, STAT solution 5 mg magnesium 2020- No 2g 2 g, IV Univ ers sulfate in 07-27 Piggyback, it y of water 2 07:15: 07:15 ONCE, 1 [place] gram/50 mL 00 :00 dose, Mon Medi charles (4 %) 07/27/20 at [place] infusion 2 0215, g Routine methylpredn 2020- No 125mg 125 mg, IV Univers isolone sod 07-27 Piggyback, i ty of succ 07:15: 06:08 ONCE, 1 [place] (SOLU-MEDRO 00 :00 dose, Mon Med ical L) 07/27/20 at [place] injection 0215, STAT 125 mg ipratropium No .5mg 0.5 mg, Un harriet (ATROVENT) 07-27 Inhalation it y of 0.02 % 06:15: 06:06 , ONCE, 1 [place] nebulizer 00 :00 dose, Mon Medic al solution 07/27/20 at [facility] h 0.5 mg 0115, LOGAN albuterol 2020- No 7.5mg 7.5 mg, Uni vers (PROVENTIL) 07-27 Inhalation i ty of 2.5 mg /3 06:15: 06:06 , ONCE, 1 [place] mL (0.083 00 :00 dose, Mon Medic al %) 07/27/20 at [place] nebulizer 0115, STAT solution 7.5 mg predniSONE 2020- No [id number] 40mg Take 2 Univers 20 mg 07-15 tablets by ity of tablet 00:00: 04:59 mouth [place] 00 :00 daily for Medical 4 days. [place] levoFLOXaci Yes 750mg 750 mg, Un harriet [...] mouth ity of tablet 15:41: 00:00 daily. [place] 01 :00 [facility] Branch albuterol 2020- No Inhale. [facility] ers sulfate 07-14 ity of (PROAIR 15:35: 00:00 [place] DIGIHALER) 54 :00 Medical Branch mcg/actuati on aebs azithromyci 2020- No 1{packe Take 1 Univers n -02 18- t} Packet by ity of (ZITHROMAX) 15:35: 00:00 mouth once [place] 1 gram 54 :00 now. Medical powder Branch azithromyci 2020-0 2020- No 500mg Take 500 Univers n -02 18- mg by ity of (ZITHROMAX) 15:35: 00:00 mouth [place] 500 mg 54 :00 daily. Medical tablet Branch predniSONE Yes 40mg 40 mg, Unive rs (DELTASONE) 07-14 Oral, ity of tablet 40 14:00: DAILY, [place] mg 00 First dose Medical on Mon Branch 07/14/20 at 0900, Until Discontinu ed, Routine Sliding Yes Subcutaneo Univ ers Scale 07-14 us, TID ity of Insulin - 02:00: MEALS+HS, [place] as Lispro 00 First dose Medical (HumaLOG) + on Mon Branch Fsbg 07/13/20 at Testing 2100, Until Discontinu ed, Routine levoFLOXaci Yes [id number] 750mg Take 1 Univers n 750 mg 6-01 tablet by ity of tablet 00:00: mouth [place] 00 every 24 Medical (twenty-fo Branch ur) hours. albuterol Yes [id number] 2{puff} Inhale 2 Univers 90 6-01 Puffs ity of mcg/actuati 00:00: every 4 [place] as on inhaler 00 (four) Medical hours as Branch needed for Wheezing or Shortness of Breath. levoFLOXaci Yes [id number] 750mg Take 1 Univers n 750 mg 6-01 tablet by ity of tablet 00:00: mouth [place] 00 every 24 Medical (twenty-fo Branch ur) hours. albuterol Yes [id number] 2{puff} Inhale 2 Univers 90 6-01 Puffs ity of mcg/actuati 00:00: every 4 [place] as on inhaler 00 (four) Medical hours as Branch needed for Wheezing or Shortness of Breath. levoFLOXaci Yes [id number] 750mg Take 1 Univers n 750 mg 6-01 tablet by ity of tablet 00:00: mouth [place] 00 every 24 Medical (twenty-fo Branch ur) hours. albuterol Yes [id number] 2{puff} Inhale 2 Univers 90 6-01 Puffs ity of mcg/actuati 00:00: every 4 [place] as on inhaler 00 (four) Medical hours as Branch needed for Wheezing or Shortness of Breath. levoFLOXaci Yes [id number] 750mg Take 1 Univers n 750 mg 6-01 tablet by ity of tablet 00:00: mouth [place] 00 every 24 Medical (twenty-fo Branch ur) hours. albuterol Yes [id number] 2{puff} Inhale 2 Univers 90 6-01 Puffs ity of mcg/actuati 00:00: every 4 [place] as on inhaler 00 (four) Medical hours as Branch needed for Wheezing or Shortness of Breath. lisinopriL 2020- No [id number] 40mg Take 1 Univers 40 mg -02 19-02 tablet by ity of tablet 00:00: 04:59 mouth [place] 00 :00 daily for Medical 30 days. [place] hydroCHLORO 2020- No [id number] 12.5mg Take 1 Univers thiazide -02 19- capsule by ity of 12.5 mg 00:00: 04:59 mouth [place] capsule 00 :00 daily for Medical 30 days. [place] lisinopriL 2020- No [id number] 40mg Take 1 Univers 40 mg -02 19- tablet by ity of tablet 00:00: 04:59 mouth [place] 00 :00 daily for Medical 30 days. [place] hydroCHLORO 2020- No [id number] 12.5mg Take 1 Univers thiazide -02 19- capsule by ity of 12.5 mg 00:00: 04:59 mouth [place] capsule 00 :00 daily for Medical 30 days. [place] lisinopriL 2020- No [id number] 40mg Take 1 Univers 40 mg -02 19-02 tablet by ity of tablet 00:00: 04:59 mouth [place] 00 :00 daily for Medical 30 days. [place] hydroCHLORO 2020- No [id number] 12.5mg Take 1 Univers thiazide 6-02 19-02 capsule by ity of 12.5 mg 00:00: 04:59 mouth [place] capsule 00 :00 daily for Medical 30 days. Branch lisinopriL 2020- No [id number] 40mg Take 1 Univers 40 mg 07-14 tablet by ity of tablet 00:00: 04:59 mouth [place] 00 :00 daily for Medical 30 days. Branch hydroCHLORO 2020- No [id number] 12.5mg Take 1 Univers thiazide 07-14 capsule by ity of 12.5 mg 00:00: 04:59 mouth [place] capsule 00 :00 daily for Medical 30 days. Branch glucagon Yes 1mg 1 mg, Univers (GLUCAGEN 07-13 Intramuscu ity of DIAGNOSTIC 23:16: lar, PRN, [place] KIT) 28 Starting Medical injection 1 Mon Branch mg 07/13/20 at 1816, Until Discontinu ed, LOGAN, Blood Glucose < or = 70 mg/dL and patient is unable to swallow or has mental changes. dextrose 50 Yes 25mL 25 mL, Univ ers % in water 07-13 Slow IV ity of (D50W) 23:16: Push, PRN, [place] injection 28 Starting Medica l 25 mL Mon [place] 07/13/20 at 1816, Until Discontinu ed, LOGAN, Blood Glucose < or = 70 mg/dL and patient is unable to swallow or has mental status changes. lisinopriL Yes 20mg 20 mg, Unive rs (PRINIVIL,Z 07-12 Oral, ity of ESTRIL) 14:00: DAILY, [place] tablet 20 00 First dose Medi charles mg (after [place] last modificati on) on 07/12/20 at 0900, Until Discontinu ed, Routine furosemide 2020- No 20mg 20 mg, Univ ers (LASIX) 07-12 05-30 Slow IV ity of injection 01:00: 02:08 Push, [place] 20 mg 00 :00 ONCE, 1 Medical dose, Sat [place] 07/11/20 at 2000, Routine zolpidem Yes 5mg 5 mg, Univers (AMBIEN) 07-11 Oral, ity of tablet 5 mg 23:15: QHSPRN, [place] as 57 Starting Medical Sat [place] 07/11/20 at 1815, Until Discontinu ed, Routine, Insomnia amLODIPine Yes 10mg 10 mg, Unive rs (NORVASC) 5-29 Oral, ity of tablet 10 21:00: DAILY, [place] mg 00 First dose Medical on [facility] 07/11/20 at 1600, Until Discontinu ed, Routine methylpredn 2020- No 60mg 60 mg, Uni vers isolone sod 07-11 Slow IV ity of succ 17:30: 23:16 Push, Q6H, [place] (SOLU-MEDRO 00 :03 First dose Me dical L) on [facility] injection 07/11/20 at 60 mg 1230, Until Discontinu ed, Routine albuterol Yes 2.5mg 2.5 mg, Univ ers (PROVENTIL) 07-11 Inhalation it y of 2.5 mg /3 17:04: , Q2HPRN, [place] as mL (0.083 47 Starting Medica l %) [facility] nebulizer 07/11/20 at solution 1204, 2.5 mg Until Discontinu ed, Routine, Shortness of Breath, Wheezing enoxaparin Yes 40mg 40 mg, Unive rs (LOVENOX) 07-09 Subcutaneo ity of injection 22:00: [place], DAILY, [place] 40 mg 00 First dose Medical on [facility] 07/09/20 at 1700, Until Discontinu ed, Routine lisinopriL 2020- No 10mg 10 mg, Univ ers (PRINIVIL,Z 07-09 Oral, ity of ESTRIL) 14:00: 20:46 DAILY, [place] tablet 10 00 :45 First dose Medi charles mg on [facility] 07/09/20 at 0900, Until Discontinu ed, Routine predniSONE 2020- No 50mg 50 mg, Univ ers (DELTASONE) 07-09 Oral, ity of tablet 50 14:00: 23:57 DAILY, [place] mg 00 :50 First dose Medical on [facility] 07/09/20 at 0900, Until Discontinu ed, Routine NaCl 0.9% Yes 1000mL at 50 Unive rs (NS) IV 527 mL/hr, IV ity of infusion 13:30: Infusion, [place] 1,000 mL 00 CONTINUOUS Medic al , Starting Branch [facility] 07/09/20 at 0830, Until Discontinu ed, Routine [...] Routine ipratropium 2020- No 3mL 3 mL, [facility] ers -albuteroL 07-09 Inhalation it y of (DUONEB) 13:00: 08:57 , QID, [place] 0.5 mg-3 00 :36 First dose Medic al mg(2.5 mg on [facility] Branch base)/3 mL 07/09/20 at nebulizer [...] IV Push, ity of (PF)) 09:03: Q6HPRN, [place] injection 4 54 Starting Medi charles mg [facility] Branch 07/09/20 at 0403, Until Discontinu ed, Routine, Nausea and Vomiting (N/V) budesonide Yes .5mg 0.5 mg, Univ ers (PULMICORT 07-09 Inhalation ity of RESPULE) 09:00: , BID, [place] nebulizer 00 First dose Medi charles solution on [place] Branch 0.5 mg 07/09/20 at 0400, Until Discontinu ed, Routine
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 member approving Restricted medication : MEGADC ipratropium Yes 3mL 3 mL, Unive rs -albuteroL 07-09 Inhalation ity of (DUONEB) 09:00: , Q4H, [place] 0.5 mg-3 00 First dose Medic al mg(2.5 mg (after Branch base)/3 mL last nebulizer modificati solution 3 on) on [place] mL 07/09/20 at 0400, Until Discontinu ed, Routine albuterol 2020- No 2.5mg 2.5 mg, Uni vers (PROVENTIL) 07-09 Inhalation i ty of 2.5 mg /3 09:00: 07:56 , ONCE, 1 [place] mL (0.083 00 :00 dose, [facility] Medic al %) 07/09/20 at [place] nebulizer 0400, STAT solution 2.5 mg magnesium 2020- No 2g 2 g, IV Univ ers sulfate in 07-09 Piggyback, it y of water 2 06:45: 06:25 ONCE, 1 [place] gram/50 mL 00 :00 dose, [facility] Medi charles (4 %) 07/09/20 at [place] infusion 2 0145, g Routine methylpredn 2020- No 125mg 125 mg, IV Univers isolone sod 07-09 Piggyback, i ty of succ 06:45: 05:31 ONCE, 1 [place] (SOLU-MEDRO 00 :00 dose, [facility] Med ical L) 07/09/20 at [place] injection 0145, STAT 125 mg levoFLOXaci 2020- No 750mg 750 mg, IV Univers n in D5W 07-09 Piggyback, ity of (LEVAQUIN) 06:30: 08:02 Administer [place] 750 mg/150 00 :00 over 90 Medica l mL Minutes, Branch Piggyback ONCE, 1 750 mg dose, [facility] 07/09/20 at 0130, LOGAN
Re ason for Anti-Infec tive: Empiric Therapy for Suspected Infection< br>Empiric Therapy Site: Respirator y
Durat ion of therapy: 72 hours Vital Signs Vital Name Observation Time Observation Value Comments Source Heart rate 2020-07-28 16:41:00 78 /min [facility] Respiratory rate 2020-07-28 16:41:00 18 /[facility] in 2020-07-28 16:41:00 90 /min University of Arterial blood by [facility] Pulse oximetry Branch Systolic blood 2020-07-28 16:38:00 129 mm[Hg] Univer [facility]ity of [facility] Diastolic blood 2020-07-28 16:38:00 69 mm[Hg] Unive rsity of [facility] Body temperature 2020-07-28 16:38:00 36.83 Madhuri [facility] Body height 2020-07-27 10:06:00 157.5 cm [facility] Body weight 2020-07-27 10:06:00 137.939 kg [facility] BMI 2020-07-27 10:06:00 55.62 kg/m2 [facility] Respiratory rate 2020-07-14 16:45:00 20 /min [facility] O[facility] saturation in 2020-07-14 16:45:00 100 /min University of Arterial blood by [facility] Pulse oximetry Branch Systolic blood 2020-07-14 16:10:00 140 mm[Hg] Univer sity of [facility] Diastolic blood 2020-07-14 16:10:00 88 mm[Hg] Unive rsity of [facility] Heart rate 2020-07-14 16:10:00 72 /min [facility] Body temperature 2020-07-14 16:10:00 36.17 Madhuri [facility] Body weight 2020-07-14 08:35:00 135.489 kg [facility] Procedures Procedure Date / Time Performing Clinician Source Performed CT ANGIOGRAM CHEST 2020-07-27 15:16:47 Vitaliy Eason [facility] XR CHEST 1 VW 2020-07-27 06:14:17 Tamika Vieira [facility] COVID-19 (ID NOW RAPID 2020-07-27 06:10:00 Tamika Vieira [facility] TESTING) Medical Branch LAB ONLY COVID 2020-07-27 06:10:00 Tamika Vieira [facility] INTERPRETATION [facility] TROPONIN I 2020-07-27 06:06:00 Tamika Vieira [facility] HEPATIC FUNCTION PANEL 2020-07-27 06:06:00 Tamika Vieira [facility] ([id number]) (ALB,T.PRO,BILI Medical Branch T,BU/BC,ALT,AST,ALK PHOS) BASIC METABOLIC PANEL 2020-07-27 06:06:00 Tamika Vieira [facility] (NA, K, CL, CO2, GLUCOSE, Medica l Branch BUN, CREATININE, CA) CBC WITH DIFF 2020-07-27 06:06:00 Tamika Vieira [facility] NOTICE OF PRIVACY 2020-07-27 06:01:19 Doctor Unassigned, [facility] PRACTICES [facility] [place] CONSENT/REFUSAL FOR 2020-07-27 05:59:48 [facility] DI[facility]IS AND T[facility] POCT GLUCOSE (AUTOMATED) 2020-07-14 12:43:[address] [facility] POCT GLUCOSE (AUTOMATED) 2020-07-14 01:36:[address] [facility] COMP. METABOLIC PANEL 2020-07-12 09:39:00 Devora Douglas [facility] ([id number]) Medical Branch CBC WITH DIFF 2020-07-12 09:39:00 Mayte Addison o f [facility] [place] [facility] CT THORAX WO CONTRAST 2020-07-11 18:13:55 Mayte Addison [facility] COMP. METABOLIC PANEL 2020-07-11 09:37:00 Devora Douglas [facility] ([id number]) Medical Branch N-TERMINAL PRO-BNP 2020-07-11 09:37:00 Devora Douglas [facility] FREE T3 2020-07-11 09:37:00 Mayte Addison [facility] SPUTUM CULTURE 2020-07-10 12:15:00 Misael rajinder [facility] PNEUMOCOCCAL ANTIGEN 2020-07-10 12:13:00 Mayte Addison [facility] SEDIMENTATION RATE 2020-07-10 09:29:00 Devora Douglas [facility] MAGNESIUM 2020-07-10 09:28:00 Misael [facility] TROPONIN I 2020-07-10 09:28:00 Misael [facility] COMP. METABOLIC PANEL 2020-07-10 09:28:00 Misael rajinder [facility] ([id number]) [facility] CBC WITH DIFF 2020-07-10 09:28:00 Misael [facility] N-TERMINAL PRO-BNP 2020-07-10 09:28:00 Misael rajinder [facility] MYCOPLASMA PNEUMONIAE 2020-07-09 22:49:00 Mayte Addison [facility] ANTIBODY, IGM [facility] TRANSTHORACIC ECHO (TTE) 2020-07-09 20:36:[address] [facility] ADC,CLC OR LCC ONLY - 2020-07-09 19:51:00 Erika Falcon [facility] INFLUENZA A & B DIRECT Medical [facility] ANTIGEN TROPONIN I 2020-07-09 19:34:00 Misael rajinder [facility] RESPIRATORY PANEL BY PCR 2020-07-09 19:30:00 Devora Douglas [facility] URINALYSIS 2020-07-09 10:50:00 Misael rajinder [facility] LEGIONELLA URINARY 2020-07-09 10:50:00 Matye Addison [facility] ANTIGEN TST [facility] URINE CULTURE 2020-07-09 10:50:00 Misael rajinder [facility] UREA NITROGEN, URINE 2020-07-09 10:50:00 Misael rajinder [facility] SODIUM, URINE RANDOM 2020-07-09 10:50:00 Misael rajinder [facility] PROTEIN CREAT RATIO URINE 2020-07-09 10:50:00 Devora Doulgas [facility] PHOSPHORUS 2020-07-09 09:41:00 Misael [facility] CREATINE KINASE 2020-07-09 09:41:00 Misael [facility] TROPONIN I 2020-07-09 09:41:00 Misael rajinder [facility] FREE T4 2020-07-09 09:41:00 Wallace [facility] THYROID STIMULATING 2020-07-09 09:41:00 [facility] HORMONE [facility] LIPID PANEL ([id number])(TOTAL 2020-07-09 09:41:00 Devora Douglas [facility] TRIGLYCERIDES, HDL) PROTHROMBIN TIME / INR 2020-07-09 09:41:00 Devora Douglas [facility] N-TERMINAL PRO-BNP 2020-07-09 09:41:00 Devora Douglas [facility] PROCALCITONIN 2020-07-09 09:41:00 Misael rajinder [facility] HB ECG ROUTINE & RHYTHM 2020-07-09 09:28:10 Devora Douglas [facility] STRIP [facility] MAGNESIUM 2020-07-09 06:49:[address] [facility] COMP. METABOLIC PANEL 2020-07-09 06:49:00 Miguel Mendoza [facility] ([id number]) [facility] BLOOD CULTURE SCREEN 2020-07-09 06:32:00 Miguel Mendoza [facility] BLOOD CULTURE SCREEN 2020-07-09 06:31:00 Miguel Mendoza [facility] CRITICAL CARE 2020-07-09 06:04:[address] [facility] XR CHEST 1 VW 2020-07-09 05:51:[address] [facility] CBC WITH DIFF 2020-07-09 05:51:[address] [facility] GLYCOSYLATED HEMOGLOBIN 2020-07-09 05:51:00 Devora Douglas [facility] (A1C) Medical Branch COVID-19 (ID NOW RAPID 2020-07-09 05:51:00 Miguel Mendoza [facility] TESTING) Medical Branch LAB ONLY COVID 2020-07-09 05:51:00 Miguel Mendoza [facility] INTERPRETATION [facility] Encounters Start End Encounter Admission Attending Care Care Encounter Source Date/Time Date/Time Type Type Clinicians Facility Department ID 2020-07-29 2020-07-29 Transition Karin Gilliam [id number] Univers 00:00:00 00:00:00 of Care Magda Killian [id number] ity of [place] [id number] [id number] [facility] 403 Branch 2020-07-27 2020-07-28 Hospital Tamika Vieira [facility] [id number] Univers 00:57:00 14:59:00 Encounter Vitaliy Eason [facility] [id number] [id number] [id number] [facility] 110 Branch (CLC) 2020-07-27 2020-07-27 Emergency X ISHA FLALETA ERT [id number] Univers 00:57:00 00:57:00 TAMIKA itbárbara [facility] 2020-07-16 2020-07-16 Transition Karin Gilliam [id number] Univers 00:00:00 00:00:00 of Care Magda Killian 350.1.13.10 ity of [place] [phone] [facility] [address] Branch 2020-07-09 2020-07-14 [facility] Miguel Mendoza [facility] 1.2.840. 114 [id number] Univers 00:23:00 12:00:00 Encounter Devora Douglas 350.1.13.10 ity [facility] 4.2.7.2.686 [facility] [phone] [place] [address] Branch 2020-07-09 2020-07-09 Sanjeev X DAYANNA FLALETA ERT [id number] Univers 00:23:00 00:23:00 MIGUEL mina [facility] Results Test Description Test Test Results Result Source Time Comments Comments LAB ONLY COVID 2020-07 COVID [facility] INTERPRETATION -14 InterpretationInterpretation of [place] 18:13:0 /Recommendations: Molecular Medical 5 NAAT Tests for Active [facility] Infection with the SARS-CoV-2 Virus: The [...] COVID-19 testing the patient has had at [facility], including molecular NAAT testing (more commonly known as PCR testing and Rapid ID Now testing) and antibody testing. It does not take into account any testing that a patient has had outside of the [facility] medical record. [facility] LABORATORY SERVICESCOVID ErymnmnHGXH-ShI-2 Rapid ID NOW (no units) ? ? Date ? Value ? 07/27/2020 ? Not Detected ? ? ? 07/09/2020 ? Not Detected ? [facility] LABORATORY SERVICES CT ANGIOGRAM 2020-07 CT SCAN OF THE CHEST WITH [place] CHEST -14 CONTRAST PULMONARY EMBOLISM of [place] 16:35:5 PROTOCOL HISTORY: Chest pain Medical 8 [...] edema orsmall airway disease should be considered. [facility], Radiant Results Inft User - 07/27/2020 [...] 0.004 ng/mL See_Comment [Au tomated message] The 5269678856) system which I AND [employer] nerated this result tra nsmitted reference range [...] ? Lab Interpretation (test Normal code = 39268-8) [facility] Metabolic Panel (NA, K, CL, CO2, GLUCOSE, BUN, CREATININE, CA)2020-07-27 06:39:54 Test Item Value Reference Range Interpretation Comments NA (test code = 138 mmol/L 135-145 1489208444) K (test code = 4.2 mmol/L 3.5-5.0 4314555644) CL (test code = 100 mmol/L 98-108 1449866229) CO2 TOTAL (test code = 31 mmol/L 23-31 9557174861) AGAP (test code = 2-16 4557098235) BUN (test code = 18 mg/dL 7-23 8470880503) GLUCOSE (test code = 162 mg/dL 70-110 H 6561533573) CREATININE (test code = 0.57 mg/dL 0.50-1.04 0657866833) CALCIUM (test code = 9.3 mg/dL 8.6-10.6 0012789120) eGFR (test code = mL/min/1.73m2 8307967717) MARIPOSA (test code = MARIPOSA) Association of [...] tests). Lab Interpretation Abnormal (test code = 87714-9) [facility] Function Panel (ALB, T.PRO, BILI T, BU/BC, ALT, AST, ALK PHOS)2020-07-27 06:39:34 Test Item Value Reference Range Interpretation Comments TOTAL BILI (test code = 5183240319) 0.3 mg/dL 0.1-1.1 BILI UNCON (test code = 7295942583) 0.1 mg/dL 0.1-1.1 BILI CONJ (test code = 2199145203) 0.0 mg/dL 0.0-0.3 T PROTEIN (test code = 6010201188) 8.1 g/dL 6.3-8.2 ALBUMIN (test code = 4601278661) 4.3 g/dL 3.5-5.0 ALK PHOS (test code = 6100803166) 114 U/L 34-122 ALTv (test code = 1742-6) 22 U/L 5-35 AST(SGOT) (test code = 2199332576) 23 U/L 13-40 Lab Interpretation (test code = Normal 53381-2) [facility]COVID-[facility] (ID NOW RAPID TESTING)2020-07-27 06:39:33 Test Item Value Reference Range Interpretation Comments SARS-CoV-2 Rapid ID NOW Not Detected Not Detected (test code = 57602-0) MARIPOSA (test code = MARIPOSA) ID NOW COVID-19 Assay is an isothermal nucleic acid amplification test intended for the qualitative detection of nucleic acid from SARS-CoV-2 viral RNA in nasopharyngeal (RN FIELD) specimens. It is used under Emergency Use [...] indicated. Lab Interpretation Normal (test code = 48249-9) [facility] 1 [id number] 06:38:34 No acute cardiopulmonary disease. RL: 3726AFC: 36206 END OF REPORT ORDERING PHYSICIAN: ISHA LOERA [...] structures areunremarkable. IMPRESSIONNo acute cardiopulmonary disease.RL: 3726AFC: 22697EPV OF REPORT [facility] with [id number] 06:24:36 Test Item Value Reference Range Interpretation [...] RDW-SD (test code = 49.0 fL 39.0-49.9 12903-9) RDW-CV (test code = 15.2 % 12.0-15.5 788-0) PLT (test code = See_Comment [Automated 777-3) message] The sy stem which generated this result transmitted reference range : 166 - 358 10*3/ ?L. The reference r palmira was not used to interpret this result as normal/abnormal . MPV (test code = 10.7 fL 9.5-12.9 00374-4) NRBC/100 WBC (test See_Comment [Automat ed code = 4546314661) message] The system which generated this result transmitted reference range : 0.0 - 10.0 /100 WBCs. The refer ence range was not u sed to interpret th is result as normal/abnormal . NRBC x10^3 (test code <0.01 See_Comment [Auto mated = 6132740884) message] The s ystem which generated this result transmitted reference range : 10*3/?L. The reference range was not used to interpret this result as normal/abnormal . GRAN MAT (NEUT) % 67.2 % (test code = 770-8) IMM GRAN % (test code 0.60 % = 2255652958) LYMPH % (test code = 21.7 % 736-9) MONO % (test code = 3.3 % 5905-5) EOS % (test code = 6.6 % 713-8) BASO % (test code = 0.6 % 706-2) GRAN MAT x10^3(ANC) 7.05 10*3/uL 1.88-7.09 (test code = 3341326665) IMM GRAN x10^3 (test 0.06 10*3/uL 0.00-0.06 code = 5697687733) LYMPH x10^3 (test code 2.28 10*3/uL 1.32-3.29 = 731-0) MONO x10^3 (test code 0.35 10*3/uL 0.33-0.92 = 742-7) EOS x10^3 (test code = 0.69 10*3/uL 0.03-0.39 H 711-2) BASO x10^3 (test code 0.06 10*3/uL 0.01-0.07 = 704-7) Lab Interpretation Abnormal (test code = 87999-2) [facility] HospitalPOCT GLUCOSE (AUTOMATED)2020-07-14 13:01:17 Test Item Value Reference Range Interpretation Comments POCT GLU (test code = 1911666266) 107 mg/dL 70-110 Lab Interpretation (test code = Normal 24204-8) [facility] HospitalBLOOD CULTURE [id number] 07:01:06 Test Item Value Reference Range Interpretation Comments Blood Culture-Aerobic No organisms No growth Previo us (test code = 67376-4) isolated prelim inary verified result was Culture [...] Culture-Anaerobic isolated preliminar y (test code = 93593-6) verifi ed result was Culture In Progress [...] CDT Lab Interpretation Normal (test code = 27972-6) [facility] HospitalBLOOD CULTURE [id number] 07:01:05 Test Item Value Reference Range Interpretation Comments Blood Culture-Aerobic No organisms No growth Previo us (test code = 81330-3) isolated prelim inary verified result was Culture [...] Culture-Anaerobic isolated preliminar y (test code = 54937-4) verifi ed result was Culture In Progress on 07/09/2020 at 05 CDTPrevious preliminary verified result was No growth a t 24 hours on 07/10/2020 at 01 CDTPrevious preliminary verified result was No growth a t 48 hours on 07/11/2020 at 02 01 CDTPrevious preliminary verified result was No growth a t 72 hours on 07/12/2020 at 01 CDT Lab Interpretation Normal (test code = 76264-5) [facility]PO[facility] GLUCOSE (AUTOMATED)2020-07-14 02:02:19 Test Item Value Reference Range Interpretation Comments POCT GLU (test code = 9239042199) 281 mg/dL 70-110 H Lab Interpretation (test code = Abnormal 61527-4) [facility] HospitalMYCOPLASMA PNEUMONIAE ANTIBODY, [id number] 22:06:07 Test Item Value Reference Range Interpretation [...] an 12 months post-infection. Performed By: ARTURO luciano[address] [place] [id number] aboratory Director: Lisbet Odom MD [Aut omated message] The sy stem which generated this result transmit romero reference range : <=0.76. The reference r palmira was not used to int erpret this result as normal/abnormal . [facility] HospitalSPUTUM [id number] 16:48:41 Test Item Value Reference Range Interpretation Comments SPUTUM CULTURE 2+ Respiratory santhosh: (test code = 622-1) Commensal upper respiratory microorganisms only. Gram stain (test Few Epithelial cells code = 664-3) present MARIPOSA (test code = Bacterial pathogens MARIPOSA) associated with lower respiratory infections were not identified, which include Pseudomonas aeruginosa and Staphylococcus aureus (MRSA or MSSA). [facility] HospitalCOM. METABOLIC PANEL (84145)2020-07-12 11:23:13 Test Item Value Reference Range Interpretation Comments NA (test code = 137 mmol/L 135-145 4794963740) K (test code = 4.9 mmol/L 3.5-5.0 3680309175) CL (test code = 96 mmol/L 98-108 L 1983914140) CO2 TOTAL (test code = 33 mmol/L 23-31 H 7230967789) AGAP (test code = 2-16 5223744806) BUN (test code = 13 mg/dL 7-23 5482494739) GLUCOSE (test code = 172 mg/dL 70-110 H 6268926678) CREATININE (test code = 0.40 mg/dL 0.50-1.04 L 8019453840) TOTAL BILI (test code = 0.5 mg/dL 0.1-1.8 5740113540) CALCIUM (test code = 9.4 mg/dL 8.6-10.6 1052112475) T PROTEIN (test code = 7.8 g/dL 6.3-8.2 1818750229) ALBUMIN (test code = 4.2 g/dL 3.5-5.0 3983811893) ALK PHOS (test code = 97 U/L 34-122 0793694997) ALTv (test code = 27 U/L 5-35 1742-6) AST(SGOT) (test code = 22 U/L 13-40 1602230553) eGFR (test code = mL/min/1.73m2 9528217504) MARIPOSA (test code = MARIPOSA) Association of [...] tests). Lab Interpretation Abnormal (test code = 46593-9) [facility] WITH [id number] 11:03:13 Test Item Value Reference Range Interpretation Comments WBC (test code = See_Comment [Automated 9822-2) message] The sy stem which generated this result transmitted reference range : 4.30 - 11.10 10*3/?L. The reference range was not used to interpret this result as normal/abnormal . RBC (test code = See_Comment [Automated 964-8) message] The sy stem which generated this [...] RDW-SD (test code = 47.8 fL 39.0-49.9 61741-0) RDW-CV (test code = 14.9 % 12.0-15.5 788-0) PLT (test code = See_Comment [Automated 827-3) message] The sy stem which generated this result transmitted reference range : 166 - 358 10*3/ ?L. The reference r palmira was not used to interpret this result as normal/abnormal . MPV (test code = 10.8 fL 9.5-12.9 67103-1) NRBC/100 WBC (test See_Comment [Automat ed code = 4111609229) message] The system which generated this result transmitted reference range : 0.0 - 10.0 /100 WBCs. The refer ence range was not u sed to interpret th is result as normal/abnormal . NRBC x10^3 (test code <0.01 See_Comment [Auto mated = 3926033551) message] The s ystem which generated this result transmitted reference range : 10*3/?L. The reference range was not used to interpret this result as normal/abnormal . GRAN MAT (NEUT) % 87.7 % (test code = 770-8) IMM GRAN % (test code 1.60 % = 4331254105) LYMPH % (test code = 9.0 % 736-9) MONO % (test code = 1.4 % 5905-5) EOS % (test code = 0.1 % 713-8) BASO % (test code = 0.2 % 706-2) GRAN MAT x10^3(ANC) 8.92 10*3/uL 1.88-7.09 H (test code = 3565738928) IMM GRAN x10^3 (test 0.16 10*3/uL 0.00-0.06 H code = 1396736520) LYMPH x10^3 (test code 0.92 10*3/uL 1.32-3.29 L = 731-0) MONO x10^3 (test code 0.14 10*3/uL 0.33-0.92 L = 742-7) EOS x10^3 (test code = <0.03 0.03-0.39 L 711-2) BASO x10^3 (test code <0.03 0.01-0.07 = 704-7) Lab Interpretation Abnormal (test code = 07699-8) [facility] HospitalCT THORAX WO [id number] 22:18:13 Patchy groundglass opacities in the bilateral lungs with more confluentconsolidative opacities in the right lower lobe, consistent with multifocalatypical pneumonia. No pleural effusion or abscess. RL: 4131AFC: [id number] End of report RING PHYSICIAN: MAYTE ADDISON [...] pneumonia. No pleural effusion or abscess.RL: 4131AFC: 62708Iqo of report UnTexas [facility]oundFR [id number] 21:45:45 Test Item Value Reference Range Interpretation Comments FREE T4 (test code = See_Comment [Autom ated message] 4772367090) The system [employer] generated this result transmitted ref erence range: 0.78 - 2 .20 ng/dL:. The ref erence range was not u sed to interpret this result as normal/abnor mal. Lab Interpretation (test Normal code = 59937-3) [facility] HospitalFR [id number] 21:44:29 Test Item Value Reference Range Interpretation Comments FREE T3 (test code = 1388519931) 3.01 pg/mL 2.77-5.27 Lab Interpretation (test code = Normal 83822-5) [facility] HospitalN-TERMINAL [id number] 10:51:09 Test Item Value Reference Range Interpretation Comments NT-proBNP (test code 38 pg/mL See_Comment [Autom ated = 9281383777) message] The system which generated this result transmitted reference range : <=125. The reference range was not used to interpret this result as normal/abnormal . MARIPOSA (test code = MARIPOSA) Biotin has been reported to cause a negative bias, interpret results relative to patient's use of biotin. Lab Interpretation Normal (test code = 04610-9) [facility] HospitalCOMP. METABOLIC PANEL (27418)2020-07-11 10:42:50 Test Item Value Reference Range Interpretation Comments NA (test code = 138 mmol/L 135-145 4298663016) K (test code = 4.5 mmol/L 3.5-5.0 4769145059) CL (test code = 101 mmol/L 98-108 2242188414) CO2 TOTAL (test code = 31 mmol/L 23-31 1708768729) AGAP (test code = 2-16 4490441511) BUN (test code = 15 mg/dL 7-23 2801180126) GLUCOSE (test code = 100 mg/dL 70-110 2588713606) CREATININE (test code = 0.46 mg/dL 0.50-1.04 L 0145942915) TOTAL BILI (test code = 0.5 mg/dL 0.1-1.2 0173128673) CALCIUM (test code = 8.9 mg/dL 8.6-10.6 9484550030) T PROTEIN (test code = 7.1 g/dL 6.3-8.2 5042038295) ALBUMIN (test code = 3.9 g/dL 3.5-5.0 1919381738) ALK PHOS (test code = 80 U/L 34-122 1301731854) ALTv (test code = 19 U/L 5-35 1742-6) AST(SGOT) (test code = 32 U/L 13-40 5619944909) eGFR (test code = mL/min/1.73m2 8648862264) MARIPOSA (test code = MARIPOSA) Association of [...] tests). Lab Interpretation Abnormal (test code = 03487-3) [facility] HospitalPNEUMOCOCCAL [id number] 18:45:00 Test Item Value Reference Range Interpretation Comments S. pneumoniae antigen (test code = Negative Negative 1712842562) Lab Interpretation (test code = Normal 39671-8) [facility] HospitalURINE [id number] 13:39:03 Test Item Value Reference Range Interpretation Comments URINE CULTURE (test No aerobic growth (< code = 630-4) 1000 CFU/mL) [facility] HospitalSEDIMENTATION [id number] 11:16:54 Test Item Value Reference Range Interpretation Comments ESR (test code = See_Comment H [Automated message] 9846152942) The system [employer] generated this result transmitted ref erence range: 0 - 20 m m/HR. The reference r palmira was not used to interpret this result as normal/abnor mal. Lab Interpretation (test Abnormal code = 65116-6) [facility] HospitalTROPONIN [id number] 10:13:54 Test Item Value Reference Range Interpretation Comments TROPONIN I (test 0.001 ng/mL See_Comment [Automated code = 9481081896) message] The system which generated this result [...] ? Lab Interpretation Normal (test code = 18994-7) [facility] HospitalN-TERMINAL [id number] 10:11:17 Test Item Value Reference Range Interpretation Comments NT-proBNP (test code 76 pg/mL See_Comment [Autom ated = 3728447304) message] The system which generated this result transmitted reference range : <=125. The reference range was not used to interpret this result as normal/abnormal . MARIPOSA (test code = MARIPOSA) Biotin has been reported to cause a negative bias, interpret results relative to patient's use of biotin. Lab Interpretation Normal (test code = 78706-8) [facility]. METABOLIC PANEL (85945)2020-07-10 10:02:17 Test Item Value Reference Range Interpretation Comments NA (test code = 137 mmol/L 135-145 1084281023) K (test code = 4.7 mmol/L 3.5-5.0 8087196688) CL (test code = 103 mmol/L 98-108 4969208642) CO2 TOTAL (test code 30 mmol/L 23-31 = 9034453462) AGAP (test code = 2-16 1842160396) BUN (test code = 17 mg/dL 7-23 6575931590) GLUCOSE (test code = 107 mg/dL 70-110 5103982370) CREATININE (test code 0.51 mg/dL 0.50-1.04 = 8995842604) TOTAL BILI (test code 0.4 mg/dL 0.1-1.1 = 7792114448) CALCIUM (test code = 9.0 mg/dL 8.6-10.6 2055225730) T PROTEIN (test code 6.9 g/dL 6.3-8.2 = 8510081547) ALBUMIN (test code = 3.8 g/dL 3.5-5.0 4899215276) ALK PHOS (test code = 79 U/L 34-122 6423008072) ALTv (test code = 16 U/L 5-35 1742-6) AST(SGOT) (test code 20 U/L 13-40 = 5512682134) eGFR (test code = mL/min/1.73m2 9512538656) MARIPOSA (test code = MARIPOSA) Association of [...] or urine or abnormalities in imaging tests). [facility] HospitalMAGNESIUM2021-05-28 10:02:17 Test Item Value Reference Range Interpretation Comments MAGNESIUM (test code = 1639200714) 2.1 mg/dL 1.7-2.4 Lab Interpretation (test code = Normal 29297-6) [facility] WITH [id number] 09:51:36 Test Item Value Reference Range Interpretation Comments WBC (test code = See_Comment H [Automated 2290-2) message] The sy stem which generated this result transmitted reference range : 4.30 - 11.10 10*3/?L. The reference range was not used to interpret this result as normal/abnormal . RBC (test code = See_Comment [Automated 9-8) message] The sy stem which generated this [...] RDW-SD (test code = 49.4 fL 39.0-49.9 87842-0) RDW-CV (test code = 15.3 % 12.0-15.5 788-0) PLT (test code = See_Comment [Automated 777-3) message] The sy stem which generated this result transmitted reference range : 166 - 358 10*3/ ?L. The reference r palmira was not used to interpret this result as normal/abnormal . MPV (test code = 10.8 fL 9.5-12.9 33825-5) NRBC/100 WBC (test See_Comment [Automat ed code = 1534807521) message] The system which generated this result transmitted reference range : 0.0 - 10.0 /100 WBCs. The refer ence range was not u sed to interpret th is result as normal/abnormal . NRBC x10^3 (test code <0.01 See_Comment [Auto mated = 4255539328) message] The s ystem which generated this result transmitted reference range : 10*3/?L. The reference range was not used to interpret this result as normal/abnormal . GRAN MAT (NEUT) % 71.0 % (test code = 770-8) IMM GRAN % (test code 0.50 % = 2346259991) LYMPH % (test code = 18.6 % 736-9) MONO % (test code = 5.8 % 5905-5) EOS % (test code = 3.7 % 713-8) BASO % (test code = 0.4 % 706-2) GRAN MAT x10^3(ANC) 8.61 10*3/uL 1.88-7.09 H (test code = 7317057883) IMM GRAN x10^3 (test 0.06 10*3/uL 0.00-0.06 code = 8727831452) LYMPH x10^3 (test code 2.26 10*3/uL 1.32-3.29 = 731-0) MONO x10^3 (test code 0.71 10*3/uL 0.33-0.92 = 742-7) EOS x10^3 (test code = 0.45 10*3/uL 0.03-0.39 H 711-2) BASO x10^3 (test code 0.05 10*3/uL 0.01-0.07 = 704-7) Lab Interpretation Abnormal (test code = 38900-4) [facility] HospitalRESPIRATORY PANEL BY [id number] 07:41:20 Test Item Value Reference Range Interpretation Comments Adenovirus (test code = Negative Negative 21814-4) Coronavirus HKU1 (test Negative Negative code = 74878-4) Coronavirus NL63 (test Negative Negative code = 67201-6) Coronavirus 229E (test Negative Negative code = 17846-5) Coronavirus OC43 (test Negative Negative code = 85281-0) Human Metapneumovirus Negative Negative (test code = 13379-6) Human Negative Negative Rhinovirus/Enterovirus (test code = 96567-3) Influenza A (test code = Negative Negative 52568-8) Influenza B (test code = Negative Negative 92907-2) Parainfluenza Virus 1 Negative Negative (test code = 71829-6) Parainfluenza Virus 2 Negative Negative (test code = 62952-7) Parainfluenza Virus 3 Negative Negative (test code = 64938-2) Parainfluenza Virus 4 Negative Negative (test code = 74774-3) Respiratory Syncytial Negative Negative Virus (test code = 60504-7) Bordetella parapertussis Negative Negative (test code = 07794-0) Bordetella pertussis Negative Negative (test code = 07630-7) Chlamydia pneumoniae Negative Negative (test code = 74484-3) Mycoplasma pneumoniae Negative Negative (test code = 05806-9) MARIPOSA (test code = MARIPOSA) Negative:A negative result does not rule-out infection. ?This assay does not test for all potential infectious agents. ? Positive:A positive test result does not necessarily indicate the presence of viable organism. ? Lab Interpretation (test Normal code = 41180-3) [facility] COVID [id number] 06:21:45COVID DMT InterpretationInterpretation/Recommendations: Molecular NAAT Tests for [...] COVID-19 testing the patient has had at [facility], including molecular NAAT testing (more commonly known as PCR testing and Rapid ID Now testing) and antibody testing. It does not take into account any testing that a patient has had outside of the [facility] medical record. [facility] LABORATORY SERVICESCOVID Resul [id number] Rapid ID NOW (no units) ? ? Date ? Value ? 07/09/2020 ? Not Detected ? [facility] HospitalLEGIONELLA URINARY ANTIGEN [id number] 23:26:39 Test Item Value Reference Range Interpretation Comments Legionella Urinary Negative Negative Antigen (test code = 4831763996) MARIPOSA (test code = MARIPOSA) Negative for [...] test. Lab Interpretation (test Normal code = 93625-1) [facility] HospitalTROPONIN [id number] 21:06:36 Test Item Value Reference Range Interpretation Comments TROPONIN I (test 0.002 ng/mL See_Comment [Automated code = 4164465920) message] The system which generated this result [...] ? Lab Interpretation Normal (test code = 16716-0) [facility] HospitalADC,CLC OR LCC ONLY - INFLUENZA A & B DIRECT [id number] 20:54:43 Test Item Value Reference Range Interpretation Comments Influenza A (test code = 53564-2) Negative Negative Influenza B (test code = 82776-0) Negative Negative Lab Interpretation (test code = Normal 69549-1) [facility] HospitalPROCALCITONIN2021-05-27 17:02:04 Test Item Value Reference Interpretation Comments Range Procalcitonin (test <0.02 See_Comment [Automa romero code = 9910082200) message] The system which generated this result [...] lung abscess/empyema. For further information please refer to:[email or web address] Lab Interpretation Normal (test code = 80920-0) [facility] HospitalUREA NITROGEN, URINE [id number] 16:26:49 Test Item Value Reference Range Interpretation Comments UREA N UR (test code = 2744571451) 546 mg/dL [facility] HospitalPROTEIN CREAT RATIO URINE [id number] 13:05:11 Test Item Value Reference Range Interpretation Comments T. PROT U (test code = 2888-6) 22 mg/dL CREAT U (test code = 5377196522) 28.1 mg/dL Protein/Creatinine Ratio Urine 0.0-2.0 (test code = 0894280564) [facility] HospitalSODIUM, URINE [id number] 13:01:14 Test Item Value Reference Range Interpretation Comments NA URINE (test code = 4118085407) 26 mmol/L [facility] HospitalXR CHEST 1 [id number] 12:40:02 Right lower lung well-demarcated consolidation concerning [...] this study and agree withthe above report. [facility] HospitalTHYROID STIMULATING [id number] 12:35:31 Test Item Value Reference Range Interpretation Comments TSH (test code = See_Comment L [Automated message] 3210301981) The system [employer] generated this result transmitted ref erence range: 0.45 - 4 .70 mIU/L. The refe rence range was not u sed to interpret this result as normal/abnor mal. Lab Interpretation (test Abnormal code = 25261-8) [facility] HospitalN-TERMINAL [id number] 12:14:52 Test Item Value Reference Range Interpretation Comments NT-proBNP (test code 46 pg/mL See_Comment [Autom ated = 2909475430) message] The system which generated this result transmitted reference range : <=125. The reference range was not used to interpret this result as normal/abnormal . MARIPOSA (test code = MARIPOSA) Biotin has been reported to cause a negative bias, interpret results relative to patient's use of biotin. Lab Interpretation Normal (test code = 01118-0) [facility] 12:10:35 Test Item Value Reference Range Interpretation Comments APPEARANCE (test code = Clear Clear 4142466239) COLOR (test code = Straw Yellow A 5195000059) PH (test code = 4.8-8.0 2624739741) SP GRAVITY (test code = 1.003-1.030 9816566414) GLU U QUAL (test code = Normal Normal 8842587376) BLOOD (test code = 2+ Negative A 1092608301) KETONES (test code = Negative Negative 2760188150) PROTEIN (test code = Negative Negative 2887-8) UROBILIN (test code = Normal Normal 1400508104) BILIRUBIN (test code = Negative Negative 6205452825) NITRITE (test code = Negative Negative 4277538729) LEUK CLIFFORD (test code = Negative Negative 3400318749) RBC/HPF (test code = See_Comment H [Autom ated message] 6189959967) The system [employer] generated this result transmitted ref erence range: 0 - 3 HP F. The reference range was not used to int erpret this result as normal/abnormal . WBC/HPF (test code = See_Comment [Autom ated message] 5039452379) The system [employer] generated this result transmitted ref erence range: 0 - 5 HP F. The reference range was not used to int erpret this result as normal/abnormal . BACTERIA (test code = Negative Negative 6786376336) SQ EPITH (test code = HPF 1728855530) Lab Interpretation (test Abnormal code = 24358-6) [facility]IP[facility] PANEL (36850)(TOTAL CHOLESTEROL, TRIGLYCERIDES, HDL)2020-07-09 12:04:52 Test Item Value Reference Range Interpretation Comments CHOL (test code = 183 mg/dL 120-200 4175858888) HDL (test code = 61 mg/dL >50 4035929205) HDLC RATIO (test code = See_Comment [Au tomated message] 4550462658) The system [employer] generated this result transmit romero reference range : <=4.5. The refe rence range was not u sed to interpret th is result as normal/abnormal . TRIG (test code = 68 mg/dL 30-170 4550197844) LDL CHOL (test code = 108 mg/dL See_Comment [Auto mated message] 91130-1) The system [employer] generated this result transmit romero reference range : <=160. The refe rence range was not u sed to interpret th is result as normal/abnormal . VLDL (test code = 14 mg/dL 5-60 0290062396) Lab Interpretation (test Normal code = 78677-1) [facility]OS[facility]ORUS2021-05-27 12:04:52 Test Item Value Reference Range Interpretation Comments PHOSPHORUS (test code = 2307897197) 3.7 mg/dL 2.5-5.0 Lab Interpretation (test code = Normal 64263-4) [facility]CREAT[facility] [id number] 12:04:11 Test Item Value Reference Range Interpretation Comments CK (test code = 0735660448) 58 U/L 33-194 Lab Interpretation (test code = Normal 03032-1) [facility] HospitalGLYCOSYLATED HEMOGLOBIN (A1C)2020-07-09 11:48:12 Test Item Value Reference Range Interpretation Comments HGB A1C (test code = 6.2 % 4.0-5.7 H 4548-4) MARIPOSA (test code = MARIPOSA) Reference RangesNormal: <5.7%Prediabetes: 5.7 - 6.4%Diabetes: > 6.5% Lab Interpretation (test Abnormal code = 38613-8) [facility] HospitalTROPONIN [id number] 11:47:11 Test Item Value Reference Range Interpretation Comments TROPONIN I (test 0.000 ng/mL See_Comment [Automated code = 1168878647) message] The system which generated this result [...] ? Lab Interpretation Normal (test code = 07712-3) [facility] HospitalPROTHROMBIN TIME / [id number] 11:40:31 Test Item Value Reference Range Interpretation Comments PROTIME PATIENT (test See_Comment [Auto mated message] code = 5964-2) The system wh ich generated this result transmitted ref erence range: 12.0 - 1 4.7 Seconds. The re ference range was not u sed to interpret this result as normal/abnor mal. INR (test code = 6301-6) Nor mal INR <1.1; Warfarin Therap eutic range 2.0 to 3. 0 or 2.5 to 3.5, dep ending upon the indica tions. Lab Interpretation (test Normal code = 14536-4) [facility] HospitalMAGNESIUM2021-05-27 07:28:47 Test Item Value Reference Range Interpretation Comments MAGNESIUM (test code = 1181944768) 2.5 mg/dL 1.7-2.4 H Lab Interpretation (test code = Abnormal 49307-4) [facility] HospitalCOMP. METABOLIC PANEL (34191)2020-07-09 07:28:27 Test Item Value Reference Range Interpretation Comments NA (test code = 135 mmol/L 135-145 2979633445) K (test code = 4.6 mmol/L 3.5-5.0 2624787277) CL (test code = 99 mmol/L 98-108 1807088230) CO2 TOTAL (test code = 26 mmol/L 23-31 6672142506) AGAP (test code = 2-16 8311057932) BUN (test code = 17 mg/dL 7-23 8359125762) GLUCOSE (test code = 190 mg/dL 70-110 H 4982049655) CREATININE (test code = 0.42 mg/dL 0.50-1.04 L 9498639763) TOTAL BILI (test code = 0.4 mg/dL 0.1-1.1 1078871555) CALCIUM (test code = 9.5 mg/dL 8.6-10.6 5258485780) T PROTEIN (test code = 8.8 g/dL 6.3-8.2 H 7660642345) ALBUMIN (test code = 4.5 g/dL 3.5-5.0 2257973894) ALK PHOS (test code = 126 U/L 34-122 H 2182863152) ALTv (test code = 20 U/L 5-35 1742-6) AST(SGOT) (test code = 29 U/L 13-40 3645065000) eGFR (test code = mL/min/1.73m2 5761815363) MARIPOSA (test code = MARIPOSA) Association of [...] tests). Lab Interpretation Abnormal (test code = 05207-6) [facility]COVID-19 (ID NOW RAPID TESTING)2020-07-09 06:30:42 Test Item Value Reference Range Interpretation Comments SARS-CoV-2 Rapid ID NOW Not Detected Not Detected (test code = 31221-8) MARIPOSA (test code = MARIPOSA) ID NOW COVID-19 Assay is an isothermal nucleic acid amplification test intended for the qualitative detection of nucleic acid from SARS-CoV-2 viral RNA in nasopharyngeal (RN FIELD) specimens. It is used under Emergency Use [...] indicated. Lab Interpretation Normal (test code = 64513-5) [facility] WITH [id number] 06:24:59 Test Item Value Reference Range Interpretation Comments WBC (test code = See_Comment H [Automated 2417-2) message] The system which generated this result transmit romero reference range : 4.30 - 11.10 10*3/?L. The reference range was not used to interpret this result as normal/abnormal . RBC (test code = See_Comment [Automated 081-8) message] The system which generated this result [...] RDW-SD (test code = 46.9 fL 39.0-49.9 31899-8) RDW-CV (test code = 14.6 % 12.0-15.5 788-0) PLT (test code = See_Comment [Automated 817-3) message] The system which generated this result transmit romero reference range : 166 - 358 10*3/ ?L. The reference range was not u sed to interpret th is result as normal/abnormal . MPV (test code = 10.9 fL 9.5-12.9 13474-9) NRBC/100 WBC (test See_Comment [Automat ed code = 4951813427) message] The system which generated this result transmit romero reference range : 0.0 - 10.0 /100 WBCs. The reference range was not used to interpret this result as normal/abnormal . NRBC x10^3 (test code See_Comment [Auto mated = 5819402800) message] The system which generated this result transmit romero reference range : 10*3/?L. The reference range was not used to interpret this result as normal/abnormal . GRAN MAT (NEUT) % 85.9 % (test code = 770-8) IMM GRAN % (test code 1.50 % = 2357409881) LYMPH % (test code = 10.9 % 736-9) MONO % (test code = 1.3 % 5905-5) EOS % (test code = 0.1 % 713-8) BASO % (test code = 0.3 % 706-2) GRAN MAT x10^3(ANC) 12.67 10*3/uL 1.88-7.09 H (test code = 1696060445) IMM GRAN x10^3 (test 0.22 10*3/uL 0.00-0.06 H code = 5896968033) LYMPH x10^3 (test code 1.61 10*3/uL 1.32-3.29 = 731-0) MONO x10^3 (test code 0.19 10*3/uL 0.33-0.92 L = 742-7) EOS x10^3 (test code = <0.03 0.03-0.39 L 711-2) BASO x10^3 (test code 0.05 10*3/uL 0.01-0.07 = 704-7) Lab Interpretation Abnormal (test code = 84272-1) [facility]2021-05-27 06:04:00Miguel Mendoza MD ? ? 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
--- NOTE | 2021-07-15 22:14 | RAD REPORT ---
EXAM DESCRIPTION: Luke Single View07/15/2021 10:05 pm CLINICAL HISTORY: [place] breath COMPARISON: June 21, 2021 FINDINGS: The lungs appear clear of acute infiltrate. The heart is mildly to moderately enlarged IMPRESSION: No acute abnormalities displayed
[2021-07-15] MEDS ORDERED: METHYLPREDNISOLONE 125 MG INJ ONE (22:36)
[2021-07-15] MEDS ORDERED: ALBUTEROL 2.5 MG/3 ML NEB SOL ONE (22:37)
[2021-07-15] MEDS ORDERED: IPRATROPIUM BROM 0.5MG/2.5ML ONE (22:37)
[2021-07-15] MEDS ORDERED: MAGNESIUM SULFATE 1 gm IVPB 2 GM/200 ML BAG IV ONE (22:37)
[2021-07-15 23:30] LABS: Absolute Lymphocytes (CBC) 2.1 K/uL (0.7-4.9); Hematocrit 37.9 % (36.0-45.0); MPV 8.3 fL (7.6-11.3); RBC Red Blood Cell Count 4.61 M/uL (3.86-4.86)
[2021-07-15 23:58] LABS: ALT/SGPT 19 U/L (12-78); AST/SGOT 9 U/L (15-37); Albumin 3.2 g/dL (3.4-5.0); Alkaline Phosphatase 105 U/L (45-117); BUN Blood Urea Nitrogen 18 mg/dL (7-18); Bicarbonate 27 mmol/L (21-32); Bilirubin Total 0.2 mg/dL (0.2-1.0); Glomerular Filtration Rate 94 ml/min (=/>90); Glucose Level 163 mg/dL (74-106); Magnesium 2.4 mg/dL (1.8-2.4); NT PRO-BNP 26 pg/mL (<125); Potassium 3.8 mmol/L (3.5-5.1); Protein, Total 7.6 g/dL (6.4-8.2); Sodium Level 136 mmol/L (136-145); Troponin High Sensitivity 4.5 pg/mL (<58.9)
--- NOTE | 2021-07-15 23:58 | EDPHYS ---
Physician Documentation [facility] Name: Kina Parham Age: 41 yrs Sex: Female : 1980 Arrival Date: 07/15/2021 Time: 21:30 Bed 18 Private MD: ED Physician Jalil Huff HPI: 07/15 21:40 This 41 yrs old Female presents to ER via Wheelchair with complaints of jmm Breathing Difficulty, Headache. 21:40 The patient has shortness of breath at rest. Onset: The symptoms/episode began/occurred jmm today. Duration: The symptoms are continuous. The patient's shortness of breath is aggravated by nothing, is alleviated by nothing. Associated signs and symptoms: Pertinent positives: non-productive cough. This is a 41 year old female with a history of asthma, htn that presents to the ED with complaints of cough, wheezing, headache. Similar to previous asthma exacerbations. . 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 - Social history:: Smoking status: Patient denies any tobacco usage or history of. ROS: 21:40 Constitutional: Negative for fever, chills, and weight loss, Cardiovascular: Negative jmm for chest pain, palpitations, and edema. 21:40 Respiratory: Positive for cough, wheezing. 21:40 Neuro: Positive for headache. 21:40 All other systems are negative. Exam: 21:40 Constitutional: This is a well developed, well nourished patient who is awake, alert, jmm and in no acute distress. Head/Face: atraumatic. Eyes: EOMI, no conjunctival erythema appreciated ENT: Moist Mucus Membranes Neck: Trachea midline, Supple Chest/axilla: Normal chest wall appearance and motion. Cardiovascular: Regular rate and rhythm. No edema appreciated Respiratory: Normal respirations, no respiratory distress appreciated Abdomen/GI: Non distended, soft Back: Normal ROM Skin: General appearance color normal 21:40 MS/ Extremity: Moves all extremities, no obvious deformities appreciated, no edema noted to the lower extremities Neuro: Awake and alert Psych: Behavior is normal, Mood is normal, Patient is cooperative and pleasant 21:40 Respiratory: mild respiratory distress is noted, Respirations: labored breathing, that is moderate, Breath sounds: wheezing: that is moderate, is heard diffusely. 21:40 Musculoskeletal/extremity: ROM: intact in all extremities. 21:40 Skin: Appearance: Color: normal in color. 23:38 ECG was reviewed by the Attending Physician. [facility] Vital Signs: 21:39 BP 168 / 87; Pulse 109; Resp 26; Temp 98.5(O); Pulse Ox 88% on R/A; Weight 136.08 kg; tw5 Height 5 ft. 7 in. (170.18 cm); 22:50 BP 141 / 69; Pulse 84; Resp 25; Pulse Ox 96% on 2 lpm NC; lg3 07/16 00:18 BP 163 / 80; Pulse 96; Resp 24; Pulse Ox 96% on 3 lpm NC; 3 07/15 21:39 Body Mass Index 46.99 (136.08 kg, 170.18 cm) tw5 MDM: 07/15 21:40 Patient medically screened. [facility] 23:52 Data reviewed: vital signs, nurses notes. Counseling: I had a detailed discussion with [facility] the patient and/or guardian regarding: the historical points, exam findings, and any diagnostic results supporting the discharge/admit diagnosis, lab results, radiology results, the need for further work-up and treatment in the hospital. ED course: Patient remains sob, after neb. sating at 92% on 3l nc. Will admit for continued nebs and steroids. I discussed this with Ashley Ortega whom accepted the patient for admission. . 07/15 21:45 Order name: Basic Metabolic Panel; Complete Time: 00:08 [facility] 07/15 21:45 Order name: CBC with Diff; Complete Time: 23:31 [facility] 07/15 21:45 Order name: LFT's; Complete Time: 00:08 [facility] 07/15 21:45 Order name: Magnesium; Complete Time: 00:08 [facility] 07/15 21:45 Order name: NT PRO-BNP; Complete Time: 00:08 [facility] 07/15 21:45 Order name: PT-INR [facility] 07/15 21:45 Order name: Troponin HS; Complete Time: 00:08 [facility] 07/15 21:45 Order name: XRAY Chest (1 view); Complete Time: 22:19 [facility] 07/15 21:47 Order name: SARS-COV-2 RT PCR (Document "Date of Onset" if Symptomatic); Complete Time: [facility] 00:00 07/15 21:47 Order name: Influenza Screen (a \\T\\ B); Complete Time: 23:07 [facility] 07/15 21:45 Order name: EKG; Complete Time: 21:46 [facility] 07/15 21:45 Order name: Cardiac monitoring; Complete Time: 22:33 [facility] 07/15 21:45 Order name: EKG - Nurse/Tech; Complete Time: 23:39 [facility] 07/15 21:45 Order name: IV Saline Lock; Complete Time: 22:27 [facility] 07/15 21:45 Order name: Labs collected and sent; Complete Time: 23:43 [facility] 07/15 21:45 Order name: O2 Per Protocol; Complete Time: 22:19 [facility] 07/15 21:45 Order name: O2 Sat Monitoring; Complete Time: 22:19 jm EC:38 Rate is 90 beats/min. Rhythm is regular. QRS [place] is Normal. [place] interval is normal. QRS jmm interval is normal. QT interval is normal. No Q waves. T waves are Normal. No ST changes noted. Reviewed by me. Administered Medications: 22:48 Drug: SOLU-Medrol (methylPrednisoLONE) 125 mg Route: IVP; Site: right forearm; lg3 22:49 Follow up: Response: No adverse reaction lg3 22:48 Drug: DuoNeb (albuterol 2.5 mg, ipratropium 0.5 mg) (3:1) (2.5 mg - 0.5 mg) 3 ml Route: lg3 Nebulizer; 22:49 Follow up: Response: No adverse reaction lg3 22:49 Drug: Magnesium Sulfate 2 grams Route: IVPB; Infused Over: 2 hrs; Site: right forearm; lg3 07/16 00:18 Drug: Acetaminophen 650 mg Route: PO; lg3 00:18 Follow up: Response: No adverse reaction lg3 Disposition: 05:15 Co-signature as Attending Physician, Jalil CASANOVA was immediately available on-site ms3 in the Emergency Department for consultation in the care of the patient.. Disposition Summary: 07/15/21 23:57 Hospitalization Ordered Hospitalization Status: Observation [facility] Provider: Arnold Mejia Location: Telemetry/MedSurg (observation) [facility] Condition: Stable jmm Problem: an acute exacerbation jmm Symptoms: have improved jmm Bed/Room Type: Standard [facility] Room Assignment: 408(07/16/21 00:32) mw Diagnosis - Unspecified asthma with (acute) exacerbation [facility] Forms: - Medication Reconciliation Form jmm - SBAR form [facility] Signatures: Dispatcher [employer] EDCe Dominguez, RN RN mw Yehuda Harkins PA PA jmm Gibson, Lacie, RN RN lg3 Jalil Huff DO DO ms3 Diana Song tw5 Leni Ortega PA PA sb3 Corrections: (The following items were deleted from the chart) 00:32 07/15 23:57 jmm mw
--- NOTE | 2021-07-15 23:58 | ER ---
Nurse's Notes [facility] Name: Kina Parham Age: 41 yrs Sex: Female : 1980 Arrival Date: 07/15/2021 Time: 21:30 Bed 18 Private MD: Diagnosis: Unspecified asthma with (acute) exacerbation Presentation: 07/15 21:39 Chief complaint: Patient's son or daughter states: "She has been feeling short of tw5 breath since yesterday. It got worse today and now she has a terrible headache.". Coronavirus screen: Vaccine status: Patient reports receiving the 2nd dose of the covid vaccine. "I dont know the brand.". Ebola Screen: Patient negative for fever greater than or equal to 101.5 degrees Fahrenheit, and additional compatible Ebola Virus Disease symptoms Patient denies exposure to infectious person. Patient denies travel to an Ebola-affected area in the 21 days before illness onset. Initial Sepsis Screen: Does the patient meet any 2 criteria? RR > 20 per min. HR > 90 bpm. Does the patient have a suspected source of infection? No. Patient's initial sepsis screen is negative. Risk Assessment: Do you want to hurt yourself or someone else? Patient reports no desire to harm self or others. Onset of symptoms was July 14, 2021. 21:39 Method Of Arrival: Wheelchair tw5 21:39 Acuity: DOMINIC 2 tw5 Triage Assessment: 21:41 General: Appears distressed, obese, Behavior is anxious. Pain: Pain. Respiratory: tw5 Reports shortness of breath at rest Onset: The symptoms/episode began/occurred yesterday, the patient has moderate shortness of breath. 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 - Social history:: Smoking status: Patient denies any tobacco usage or history of. Screenin:50 Abuse screen: Denies threats or abuse. Denies injuries from another. Nutritional lg3 screening: No deficits noted. Tuberculosis screening: No symptoms or risk factors identified. Fall Risk None identified. Assessment: 22:50 General: Appears in no apparent distress. uncomfortable, Behavior is cooperative, lg3 anxious. Pain: Complains of pain in head. Neuro: No deficits noted. Santiago Agitation-Sedation Scale (RASS): +1 Restless Level of Consciousness is awake, alert, obeys commands, Oriented to person, place, time, situation. Cardiovascular: No deficits noted. Denies chest pain, Capillary refill < 3 seconds Clubbing of nail beds is absent JVD is absent Patient's skin is warm and dry. Respiratory: Airway is patent Trachea midline Respiratory effort is even, pursed lip, shallow, Respiratory pattern is tachypnea Breath sounds with wheezes bilaterally. GI: No deficits noted. No signs and/or symptoms were reported involving the gastrointestinal system. Abdomen is round non-distended, obese. : No deficits noted. No signs and/or symptoms were reported regarding the genitourinary system. EENT: No deficits noted. No signs and/or symptoms were reported regarding the EENT system. Derm: No deficits noted. No signs and/or symptoms reported regarding the dermatologic system. Skin is intact, is healthy with good turgor, Skin is dry, Skin temperature is warm. Musculoskeletal: No deficits noted. No signs and/or symptoms reported regarding the musculoskeletal system. Circulation, motion, and sensation intact. Range of motion: intact in all extremities. 07/16 00:18 Reassessment: Patient appears in no apparent distress at this time. No changes from lg3 previously documented assessment. Patient and/or family updated on plan of care and expected duration. Pain level reassessed. Patient is alert, oriented x 3, equal unlabored respirations, skin warm/dry/pink. Respiratory: Breath sounds with wheezes bilaterally. Vital Signs: 07/15 21:39 BP 168 / 87; Pulse 109; Resp 26; Temp 98.5(O); Pulse Ox 88% on R/A; Weight 136.08 kg; tw5 Height 5 ft. 7 in. (170.18 cm); 22:50 BP 141 / 69; Pulse 84; Resp 25; Pulse Ox 96% on 2 lpm NC; lg3 07/16 00:18 BP 163 / 80; Pulse 96; Resp 24; Pulse Ox 96% on 3 lpm NC; lg3 07/15 21:39 Body Mass Index 46.99 (136.08 kg, 170.18 cm) tw5 ED Course: 07/15 21:30 Patient arrived in ED. bp1 21:34 Yehuda Harkins PA is PHCP. jmm 21:34 Jalil Huff DO is Attending Physician. jmm 21:41 Triage completed. tw5 21:41 Arm band placed on right wrist. tw5 22:05 Kristyn Burr, RN is Primary Nurse. lg3 22:07 XRAY Chest (1 view) In Process Unspecified. EDMS 22:27 Influenza Screen (a \\T\\ B) Sent. lg3 22:27 SARS-COV-2 RT PCR (Document "Date of Onset" if Symptomatic) Sent. lg3 22:50 Patient has correct armband on for positive identification. Bed in low position. Call lg3 light in reach. Side rails up X2. Client placed on continuous cardiac and pulse oximetry monitoring. NIBP monitoring applied. shelter monitor on. Door closed. Noise minimized. Warm blanket given. Family accompanied patient. 22:50 Inserted saline lock: 22 gauge in right forearm, using aseptic technique. Blood lg3 collected. 23:39 Client placed on continuous cardiac and pulse oximetry monitoring. NIBP monitoring wm applied. shelter monitor on. 23:39 EKG done, by ED staff, reviewed by Jalil Huff DO. wm 23:43 Basic Metabolic Panel Sent. lg3 23:43 LFT's Sent. lg3 23:43 Magnesium Sent. lg3 23:43 NT PRO-BNP Sent. lg3 23:43 PT-INR Sent. lg3 23:56 Arnold Mejia MD is Hospitalizing Provider. [facility] 07/16 01:16 No provider procedures requiring assistance completed. Patient admitted, IV remains in lg3 place. intact, No redness/swelling at site. Administered Medications: 07/15 22:48 Drug: SOLU-Medrol (methylPrednisoLONE) 125 mg Route: IVP; Site: right forearm; lg3 22:49 Follow up: Response: No adverse reaction lg3 22:48 Drug: DuoNeb (albuterol 2.5 mg, ipratropium 0.5 mg) (3:1) (2.5 mg - 0.5 mg) 3 ml Route: lg3 Nebulizer; 22:49 Follow up: Response: No adverse reaction lg3 22:49 Drug: Magnesium Sulfate 2 grams Route: IVPB; Infused Over: 2 hrs; Site: right forearm; lg3 07/16 00:18 Drug: Acetaminophen 650 mg Route: PO; lg3 00:18 Follow up: Response: No adverse reaction lg3 Medication: 07/15 22:50 VIS not applicable for this client. lg3 Outcome: 23:57 Decision to Hospitalize by Provider. kami 07/16 01:16 Admitted to Tele accompanied by tech, via wheelchair, room 408, with oxygen, Report lg3 called to Erika Condition: stable Instructed on the need for admit. 01:17 Patient left the ED. lg3 Signatures: Dispatcher [employer] EDMS Yehuda Harkins PA PA jmm Gibson, Lacie, RN RN lg3 Nahed Potts Wendy wm Wood, [facility]
[2021-07-16 00:01] LABS: Bilirubin Direct < 0.1 mg/dL (0-0.2)
[2021-07-16] MEDS ORDERED: ACETAMINOPHEN 325 MG TABLET ONE (00:18)
--- NOTE | 2021-07-16 00:18 | P.HP ---
Certification for Inpatient Patient admitted to: Observation With expected LOS: <2 Midnights Patient will require the following post-hospital care: None Practitioner: I am a practitioner with admitting privileges, knowledge of patient current condition, hospital course, and medical plan of care. Services: Services provided to patient in accordance with Admission requirements found in Title 42 Section 412.3 of the Code of Federal Regulations Patient History Date of Service: 07/16/21 Reason for admission: Asthma Exacerbation History of Present Illness: Patient is a 40-year-old female, chinese speaking only, with history of hypertension and asthma who presented to the ED complaining of wheezing, shortness of breath, and headache that has progressively gotten worse over the past day. She is noted to be in moderate respiratory distress with expiratory wheezing upon arrival. Patient was initially saturating 88% on RA then given duonebs, solumedrol, mag, put on 2L NC. Patient still dyspneic, tachypneic and mildly hypoxic at 94% after treatment. ED provider wishes to admit patient for further evaluation and management of asthma exacerbation. Allergies No Known Allergies Allergy (Unverified 12/14/20 03:19) Home Medications: Albuterol Sulfate [Proair Hfa] 2 puff IH Q4H PRN 12/15/20 Amlodipine [Norvasc*] 5 mg PO DAILY 12/15/20 Budesonide/Formoterol Fumarate [Symbicort 160-4.5 Mcg Inhaler] 2 puff IH BID 12/15/20 Ipratropium/Albuterol Sulfate [Iprat-Albut 0.5-3(2.5) mg/3 ml] 2 puff IH Q6H PRN 12/15/20 Loratadine [Claritin*] 10 mg PO DAILY 12/15/20 hydroCHLOROthiazide [Hydrochlorothiazide*] 12.5 mg PO DAILY 12/15/20 Albuterol Neb [Proventil 0.083% Neb Soln] 2.5 mg NEB [id number] #60 amp 12/17/20 Benzonatate [Tessalon Perle*] 100 mg PO TID PRN #30 cap 12/17/20 Ipratropium Neb [Atrovent*] 0.5 mg NEB [id number] #60 amp 12/17/20 Oseltamivir [Tamiflu*] 75 mg PO BID #4 cap 12/17/20 predniSONE [Prednisone*] 20 mg PO BID #11 tab 12/17/20 - Past Medical/Surgical History Diabetic: No -: Hypertension -: Asthma -: Tubal ligation Psychosocial/ Personal History: 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, 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 with her family - Family History Sister -: Diabetes - Social History Alcohol use: No CD- Drugs: No Caffeine use: Yes Review of Systems Respiratory: Cough, Shortness of Breath, Wheezing Physical Examination - Physical Exam General: Alert, In no apparent distress HEENT: Atraumatic, PERRLA, EOMI, Sclerae nonicteric Neck: Supple, 2+ carotid pulse no bruit, No LAD, Without JVD or thyroid abnormality Respiratory: Expiratory wheezes Cardiovascular: Normal S1 S2, Other (tachycaridc) Gastrointestinal: Normal bowel sounds, No tenderness Musculoskeletal: No tenderness Integumentary: No rashes Neurological: Normal speech, Normal strength at 5/5 x4 extr, Normal tone, Normal affect - Studies Laboratory Data (last 24 hrs) 07/15/21 23:21: WBC 8.6, Hgb 12.1, Hct 37.9, Plt Count 191 07/15/21 23:21: Sodium 136, Potassium 3.8, BUN 18, Creatinine 0.80, Glucose 163 H, Magnesium 2.4 D, Total Bilirubin 0.2, AST 9 L, ALT 19, Alkaline Phosphatase 105 Microbiology Data (last 24 hrs): 07/15/21 22:20 Nasopharnyx Influenza Type A Antigen Screen - Final 07/15/21 22:20 Nasopharnyx Influenza Type B Antigen Screen - Final Assessment and Plan - Problems (Diagnosis) (1) Asthma with acute exacerbation Current Visit: Yes Status: Acute Qualifiers: Asthma severity: moderate Asthma persistence: persistent Qualified Code(s): J45.41 - Moderate persistent asthma with (acute) exacerbation (2) Acute respiratory failure with hypoxia Current Visit: Yes Status: Acute (3) Hypertension Current Visit: Yes Status: Acute Qualifiers: Hypertension type: primary hypertension Qualified Code(s): I10 - Essential (primary) hypertension - Plan -Continue with scheduled nebs, IV steroids, and ICS -Ketorolac PRN headache -As needed supplemental O2 -Reconcile and continue home medications DVT PPX: Lovenox Code status: Full - Advance Directives Does patient have a Living Will: No Does patient have a Durable POA for Healthcare: No
[2021-07-16 02:36] VITALS: BMI 48.2
[2021-07-16] MEDS ORDERED: KETOROLAC 30 MG/ML INJ IV PRN (02:38)
[2021-07-16] MEDS ORDERED: METHYLPREDNISOLONE 40 MG INJ IV SCH ×2 (02:38→09:00)
[2021-07-16] MEDS ORDERED: ONDANSETRON 4 MG/2 ML VIAL IV PRN (02:38)
[2021-07-16] MEDS ORDERED: ACETAMINOPHEN 500 MG TAB PO PRN (02:38)
[2021-07-16] MEDS: IPRATROPIUM BROM 0.5MG/2.5ML NEB SCH ×3 (04:15→14:10)
[2021-07-16] MEDS: ALBUTEROL 2.5 MG/3 ML NEB SOL NEB SCH ×3 (04:15→14:10)
[2021-07-16 04:20] LABS: Protime INR 1.05
[2021-07-16] MEDS ORDERED: ENOXAPARIN 40 MG/0.4 ML SQ SCH (09:00)
[2021-07-16 10:54] VITALS: O2SAT 93
[2021-07-16 16:30] VITALS: BP 143/67; TEMP 98.2
--- NOTE | 2021-07-17 14:30 | EKG ---
Test Date: 2021-07-15 Test Time: 23:30:49 Trouble Locater: MEASUREMENT RESULTS: Intervals: Rate: 90 [place]: 180 QRSD: 94 QT: 368 QTc: 450 [place]: P: 51 [place]: 180 QRS: 66 T: 17 INTERPRETIVE STATEMENTS: Normal sinus rhythm Normal ECG Compared to ECG 06/07/2021 16:04:53 No significant changes Electronically Signed On 07-17-21 14:29:43 CDT by Rafael Vega
== END 2021-07-16 16:45 | disposition home or self-care (01) ==
LOC: ER 21:30 → ERHOLD 07-16 01:14 → 4TH 07-16 01:24
PROVIDERS: ADMIT Hospitalist; ATTEND Hospitalist
DX: J45.41 Moderate persistent asthma with (acute) exacerbation (principal); J96.01 Acute respiratory failure with hypoxia; I10 Essential (primary) hypertension; R51.9 Headache, unspecified; M19.90 Unspecified osteoarthritis, unspecified site; Z20.822 Contact with and (suspected) exposure to COVID-19; Z79.899 Other long term (current) drug therapy; Z79.52 Long term (current) use of systemic steroids; Z98.51 Tubal ligation status; Z83.3 Family history of diabetes mellitus
CPT/HCPCS: 93005; 85025; 80048; 36415; 83735; 85610; 80076; 84484; 83880; 87804 ×2; 71045; 94640 ×4; 96375; 96374; 99285; U0003; J1650; J3475; J2930; J2920; G0378 ×2

== ENCOUNTER 2021-08-26 14:51 | Emergency (ER) | payer OTHER ==
[2021-08-26 15:30] LABS: Absolute Lymphocytes (CBC) 1.6 K/uL (0.7-4.9); Hematocrit 37.1 % (36.0-45.0); Lymphocytes % 18.1 % (15.3-44.8); MCV 81.5 fL (80-100); RBC Red Blood Cell Count 4.56 M/uL (3.86-4.86)
[2021-08-26] MEDS ORDERED: ALBUTEROL 2.5 MG/3 ML NEB SOL ONE (15:54)
[2021-08-26] MEDS ORDERED: ASPIRIN 81 MG CHEWABLE TABLET ONE (15:54)
[2021-08-26] MEDS ORDERED: IPRATROPIUM BROM 0.5MG/2.5ML ONE (15:54)
[2021-08-26] MEDS ORDERED: METHYLPREDNISOLONE 125 MG INJ ONE (15:54)
[2021-08-26 16:08] LABS: ALT/SGPT 26 U/L (12-78); AST/SGOT 15 U/L (15-37); Albumin 3.5 g/dL (3.4-5.0); Alkaline Phosphatase 112 U/L (45-117); BUN Blood Urea Nitrogen 12 mg/dL (7-18); Bicarbonate 29 mmol/L (21-32); Bilirubin Total 0.3 mg/dL (0.2-1.0); Glomerular Filtration Rate 87 ml/min (=/>90); Glucose Level 128 mg/dL (74-106); NT PRO-BNP 32 pg/mL (<125); Potassium 3.4 mmol/L (3.5-5.1); Protein, Total 8.2 g/dL (6.4-8.2); Sodium Level 138 mmol/L (136-145); Troponin High Sensitivity 4.2 pg/mL (<58.9)
[2021-08-26 16:40] LABS: Bilirubin Direct < 0.1 mg/dL (0-0.2)
--- NOTE | 2021-08-26 16:50 | RAD REPORT ---
EXAM DESCRIPTION: US - Extremity Venous Uni Ltd - 08/26/2021 4:32 pm CLINICAL HISTORY: SWELLING Leg swelling and edema. COMPARISON: UPPER EXTREMITY VENOUS UNILATE dated 06/07/2021 FINDINGS: Left lower extremity venous system was interrogated with Doppler technique. Normal flow, c ompressibility and augmentation was noted. There is no DVT present. IMPRESSION: No evidence of left lower extremity deep venous thrombosis.
--- NOTE | 2021-08-26 16:51 | RAD REPORT ---
EXAM DESCRIPTION: RAD - Chest Single View - 08/26/2021 4:43 pm CLINICAL HISTORY: CHEST PAIN Chest pain. COMPARISON: Chest Single View dated 07/15/2021; Chest Single View dated 06/21/2021; Chest Single View da romero 06/07/2021; Chest Single View dated 03/31/2021 FINDINGS: Portable technique limits examination quality. The lungs are grossly clear. The heart is upper limit normal in size. No displaced fractures. IMPRESSION: No acute intrathoracic process suspected.
--- NOTE | 2021-08-26 18:46 | RAD REPORT ---
EXAM DESCRIPTION: CT - Chest For Pe Angio - 08/26/2021 6:36 pm CLINICAL HISTORY: Chest pain. Pulmonary embolism (PE) suspected, positive D-dimer COMPARISON: Chest For Pe Angio dated 06/07/2021 TECHNIQUE: CT angiogram of the pulmonary arteries was performed with MIP. All CT scans are performed using dose optimization technique as appropriate and may include automated exposure control or mA/KV adjustment according to patient size. FINDINGS: No evidence of pulmonary thromboembolism. No acute aortic finding demonstrated. Ground-glass pulmonary edema is present, mild to moderate. No significant pericardial or pleural fluid. No concerning bony finding. IMPRESSION: No evidence of pulmonary thromboembolism. [id number] ground-glass pulmonary edema.
--- NOTE | 2021-08-26 19:00 | EDPHYS ---
Physician Documentation [facility] Name: Kina Parham Age: 41 yrs Sex: Female : 1980 Arrival Date: 08/26/2021 Time: 15:07 Bed 2 Private MD: ED Physician Noe Renae HPI: 08/26 15:24 This 41 yrs old Female presents to ER via EMS with complaints of Chest Pain. jr11 15:24 The patient or guardian reports chest pain that is located primarily in the anterior jr11 chest wall, left, chest, ache, sharp x 1 day >8hrs, h/o asthma, feels similar to prior exacerbations. Onset: yesterday. The pain does not radiate. Associated signs and symptoms: Pertinent positives: cough, lower extremity swelling, shortness of breath, Pertinent negatives: abdominal pain. The chest pain is described as aching. Duration: The patient or guardian reports a single episode, that is still ongoing. Modifying factors: The symptoms are alleviated by nothing. the symptoms are aggravated by activity. Severity of pain: At its worst the pain was mild in the emergency department the pain is unchanged. last steroid use 1 mo ago. Historical: - Allergies: 18:16 No Known Allergies; jl7 - Home Meds: 15:13 lisinopril Oral [Active]; yung - PMHx: 15:13 Arthritis; Asthma; Hypertension; Pneumonia; yung - PSHx: 15:13 tubal ligation; yung - Immunization history:: Adult Immunizations up to date. - Social history:: Smoking status: Patient denies any tobacco usage or history of. ROS: 15:24 All other systems are negative. jr11 Exam: 15:24 Constitutional: This is a well developed, well nourished patient who is awake, alert, jr11 and in no acute distress. Head/Face: Normocephalic, atraumatic. Eyes: Extra-ocular motions intact. Lids and lashes normal. Conjunctiva and sclera are non-icteric and not injected. Cornea within normal limits. Periorbital areas with no swelling, redness, or edema. ENT: Nares patent. No nasal discharge, no septal abnormalities noted. Oropharynx with no redness, swelling, or masses, exudates, or evidence of obstruction, uvula midline. Mucous membranes moist. Neck: Trachea midline, no thyromegaly or masses palpated, and no cervical lymphadenopathy. Supple, full range of motion without nuchal rigidity, or vertebral point tenderness. No Meningismus. Chest/axilla: Normal chest wall appearance and motion. Nontender with no deformity. No lesions are appreciated. Cardiovascular: Regular rate and rhythm with a normal S1 and S2. No gallops, murmurs, or rubs. Normal PMI, no JVD. No pulse deficits. Respiratory: diffusely wheezing Abdomen/GI: Soft, non-tender, with normal bowel sounds. No distension or tympany. No guarding or rebound. No evidence of tenderness throughout. Back: No spinal tenderness. No costovertebral tenderness. Full range of motion. MS/ Extremity: 2+ pitting edema L>R Vital Signs: 15:08 BP 153 / 88; Pulse 92; Resp 19; Temp 98.6(O); Pulse Ox 95% ; Weight 132 kg; Height 4 yung ft. 11 in. (149.86 cm); 16:36 BP 155 / 80; Pulse 98; Resp 20; Pulse Ox 96% on Nebulizer Mask; yung 15:08 Body Mass Index 58.78 (132.00 kg, 149.86 cm) yung MDM: 15:16 Patient medically screened. [facility] 15:24 Differential diagnosis: coronary artery disease gastritis, pneumonia, pulmonary jr11 embolus, CHF. Data reviewed: vital signs, nurses notes. ED course: Interpreted by me shows normal sinus rhythm, normal axis, normal intervals, poor anterior R wave progression otherwise ST segments normal.. 18:59 ED course: No PE, HEART score <3, will f/u PCP. jr11 19:03 ED course: Pt with signs of volume overload, no hypoxia, will gentle diuresis and f/u jr11 cards for echo, ?diastolic dysfunction . 08/26 15:18 Order name: Basic Metabolic Panel; Complete Time: 16:53 [facility] 08/26 15:18 Order name: CBC with Diff; Complete Time: 15:44 [facility] 08/26 15:18 Order name: D-Dimer; Complete Time: 15:44 [facility] 08/26 15:18 Order name: LFT's; Complete Time: 16:53 [facility] 08/26 15:18 Order name: NT PRO-BNP; Complete Time: 16:53 08/26 15:18 Order name: Troponin HS; Complete Time: 16:53 08/26 15:18 Order name: XRAY Chest (1 view); Complete Time: 16:53 08/26 15:23 Order name: US Extremity Venous Unilateral Ltd; Complete Time: 16:53 08/26 15:24 Order name: COVID-19 SARS RT PCR (Document "Date of Onset" if Symptomatic); Complete [facility] Time: 18:03 08/26 16:54 Order name: CT Chest For PE Angio; Complete Time: 18:58 08/26 17:25 Order name: Troponin High Sensitivity 08/26 15:18 Order name: EKG; Complete Time: 15:19 08/26 15:18 Order name: Cardiac monitoring; Complete Time: 15:40 08/26 15:18 Order name: EKG - Nurse/Tech; Complete Time: 15:37 08/26 15:18 Order name: IV Saline Lock; Complete Time: 15:32 08/26 15:18 Order name: Labs collected and sent; Complete Time: 15:32 08/26 15:18 Order name: O2 Per Protocol; Complete Time: 15:32 08/26 15:18 Order name: O2 Sat Monitoring; Complete Time: 15:32 Administered Medications: 16:35 Drug: MethylPrednisoLONE 125 mg Route: IVP; Site: right antecubital; yung 16:35 Drug: DuoNeb (albuterol 2.5 mg, ipratropium 0.5 mg) (3:1) (2.5 mg - 0.5 mg) 3 ml Route: yung Nebulizer; 16:36 Drug: Aspirin Chewable Tablet 324 mg Route: PO; yung 19:15 Drug: Lasix (furosemide) 40 mg Route: IVP; Site: right antecubital; ld1 19:40 Follow up: Response: No adverse reaction ld1 Disposition Summary: 08/26/21 19:00 Discharge Ordered Location: Home [facility] Condition: Stable jr11 Diagnosis - Moderate persistent asthma with (acute) exacerbation jr11 - Chest pain, unspecified jr11 Followup: [facility] - With: Rafael Vega MD - When: 2 - 3 days - Reason: Recheck today's complaints Discharge Instructions: - Discharge Summary Sheet jr11 - Asthma, Adult jr11 - Nonspecific Chest Pain, Adult jr11 Forms: - Medication Reconciliation Form jr11 - Thank You Letter jr11 - Antibiotic Education jr11 - Prescription Opioid Use jr11 Prescriptions: - Ventolin HFA 90 mcg/actuation Inhalation HFA aerosol inhaler - inhale 2 puff by INHALATION route every 4-6 hours; 1 Inhaler; Refills: 0, jr11 Product Selection Permitted - Prednisone 20 mg Oral Tablet - take 3 tablets by ORAL route once daily for 5 days; 15 tablet; Refills: 0, jr11 Product Selection Permitted - Lasix 40 mg Oral Tablet - take 1 tablet by ORAL route once daily for 5 days; 5 tablet; Refills: 0, jr11 Product Selection Permitted Signatures: Dispatcher [employer] Amadeo Florentino RN RN jl7 Erika Moreland RN RN ld1 Marisa-Willa Avilez RN RN Noe Jackson MD MD jr11
--- NOTE | 2021-08-26 19:00 | ER ---
Nurse's Notes [facility] Name: Kina Parham Age: 41 yrs Sex: Female : 1980 Arrival Date: 08/26/2021 Time: 15:07 Bed 2 Private MD: Diagnosis: Moderate persistent asthma with (acute) exacerbation;Chest pain, unspecified Presentation: 08/26 15:08 Chief complaint: Patient states: chest and shortness of breath. Coronavirus screen: yung Vaccine status: Patient reports receiving the 2nd dose of the covid vaccine. Ebola Screen: Patient denies travel to an Ebola-affected area in the 21 days before illness onset. Initial Sepsis Screen: Does the patient meet any 2 criteria? HR > 90 bpm. Does the patient have a suspected source of infection? No. Patient's initial sepsis screen is negative. Risk Assessment: Do you want to hurt yourself or someone else? Patient reports no desire to harm self or others. Onset of symptoms was August 26, 2021. 15:08 Method Of Arrival: EMS: [facility] 15:08 Acuity: DOMINIC 3 yung Triage Assessment: 15:13 General: Appears in no apparent distress. Behavior is calm, cooperative. Pain: yung Complains of pain in chest. Cardiovascular: Reports chest pain, shortness of breath. Respiratory: Reports shortness of breath Breath sounds with wheezes bilaterally. Historical: - Allergies: 18:16 No Known Allergies; jl7 - Home Meds: 15:13 lisinopril Oral [Active]; yung - PMHx: 15:13 Arthritis; Asthma; Hypertension; Pneumonia; yung - PSHx: 15:13 tubal ligation; yung - Immunization history:: Adult Immunizations up to date. - Social history:: Smoking status: Patient denies any tobacco usage or history of. Screenin:17 Abuse screen: Denies threats or abuse. Denies injuries from another. Nutritional yung screening: No deficits noted. Tuberculosis screening: No symptoms or risk factors identified. Fall Risk None identified. Assessment: 15:17 Pain: Pain does not radiate. Pain radiates to chest Pain began gradually. yung Vital Signs: 15:08 BP 153 / 88; Pulse 92; Resp 19; Temp 98.6(O); Pulse Ox 95% ; Weight 132 kg; Height 4 yung ft. 11 in. (149.86 cm); 16:36 BP 155 / 80; Pulse 98; Resp 20; Pulse Ox 96% on Nebulizer Mask; yung 15:08 Body Mass Index 58.78 (132.00 kg, 149.86 cm) yung ED Course: 15:07 Patient arrived in ED. jl7 15:08 Willa Perdomo, RN is Primary Nurse. yung 15:13 Triage completed. yung 15:14 Noe Renae MD is Attending Physician. jr11 15:17 Patient has correct armband on for positive identification. Bed in low position. yung construction management assistant on. Pulse ox on. NIBP on. 15:17 Arm band placed on. yung 15:17 No provider procedures requiring assistance completed. Patient maintains SpO2 yung saturation greater than 95% on room air. 15:31 Inserted saline lock: 20 gauge in right antecubital area, using aseptic technique. jd3 Blood collected. placed by Shellie ALMEIDA supervise by Darien CASTRO. 16:34 US Extremity Venous Unilateral Ltd In Process Unspecified. EDMS 16:35 COVID-19 SARS RT PCR (Document "Date of Onset" if Symptomatic) Sent. yung 16:45 XRAY Chest (1 view) In Process Unspecified. EDMS 18:38 CT Chest For PE Angio In Process Unspecified. EDMS 19:00 Rafael Vega MD is Referral Physician. jr11 19:41 IV discontinued, intact, bleeding controlled, No redness/swelling at site. ld1 Administered Medications: 16:35 Drug: MethylPrednisoLONE 125 mg Route: IVP; Site: right antecubital; yung 16:35 Drug: DuoNeb (albuterol 2.5 mg, ipratropium 0.5 mg) (3:1) (2.5 mg - 0.5 mg) 3 ml Route: yung Nebulizer; 16:36 Drug: Aspirin Chewable Tablet 324 mg Route: PO; yung 19:15 Drug: Lasix (furosemide) 40 mg Route: IVP; Site: right antecubital; ld1 19:40 Follow up: Response: No adverse reaction ld1 Medication: 15:17 VIS not applicable for this client. yung Outcome: 19:00 Discharge ordered by . jr11 19:40 Discharged to home ambulatory. ld1 19:40 Condition: stable 19:40 Discharge instructions given to patient, Instructed on discharge instructions, follow up and referral plans. medication usage, Demonstrated understanding of instructions, follow-up care, medications, Prescriptions given X 3. 19:41 Patient left the ED. ld1 Signatures: Dispatcher [employer] EDAmadeo Waldrop RN RN jl7 Darien Martin RN RN jd3 Erika Moreland RN RN ld1 Willa Perodmo RN RN ha Rosillo, Jose, MD MD jr11
[2021-08-26] MEDS ORDERED: FUROSEMIDE 20 MG/ 2ML VIAL ONE (19:19)
[2021-08-26 19:50] VITALS: TEMP 98.6
[2021-08-26 19:51] VITALS: BP 155/80; O2SAT 96
--- NOTE | 2021-08-28 09:05 | EKG ---
Test Date: 2021-08-26 Test Time: 15:07:30 Bookstore Clerk: JOE MEASUREMENT RESULTS: Intervals: Rate: 95 [place]: 196 QRSD: 88 QT: 344 QTc: 432 [place]: P: 73 [place]: 196 QRS: 84 T: 40 INTERPRETIVE STATEMENTS: Normal sinus rhythm Cannot rule out Anterior infarct, age undetermined Abnormal ECG Compared to ECG 07/15/2021 23:30:49 Myocardial infarct finding now present Electronically Signed On 08-28-21 09:03:11 CDT by Christian Noyola
== END 2021-08-26 19:41 | disposition home or self-care (01) ==
LOC: ER 14:51
DX: J45.41 Moderate persistent asthma with (acute) exacerbation (principal); I10 Essential (primary) hypertension; Z20.822 Contact with and (suspected) exposure to COVID-19
CPT/HCPCS: 93005; 85025; 80048; 36415; 85379; 80076; 84484 ×2; 83880; 71275; 71045; 93971; 94640; 96375; 96374; 99285; U0003; Q9967; J1940; J2930

== ENCOUNTER 2021-12-22 08:34 | Emergency (ER) | payer OTHER ==
--- OUTSIDE RECORDS SUMMARY | 2021-12-22 08:43 | XMS REPORT | Continuity of Care Document ---
:1980 Author Organization [facility] t Address [address] [place] [address] Care Team Providers Name Role Phone Shruthi Huber Primary Care Physician [phone] MATEUSZ GALLARDO Attending Clinician Unavailable Jeanna Small Attending Clinician Mateusz Gallardo MD Attending Clinician RENATA ACOSTA Attending Clinician Unavailable Renata Acosta DO Attending Clinician Magda Gilliam Attending Clinician Tamika Vieira DO Attending Clinician Vitaliy Eason DO Attending Clinician TAMIKA VIEIRA Attending Clinician Unavailable MIGUEL MENDOZA Attending Clinician Unavailable Miguel Mendoza MD Attending Clinician Carolynn Douglas MD Attending Clinician MATEUSZ GALLARDO Admitting Clinician Unavailable Mateusz Gallardo MD Admitting Clinician RENATA ACOSTA Admitting Clinician Unavailable TeqwimVitaliy alaniz DO Admitting Clinician CAROLYNN DOUGLAS Admitting Clinician Unavailable Carolynn Douglas MD Admitting Clinician Payers Payer Name Policy Type Policy Number Effective Date Expiration Date S ashish Dada Room [id number] 2021 NON-CONTRACT 00:00:00 GENERIC Problems Condition Condition Condition Status Onset Resolution Last Treating Co mments Source Name Details Category Date Date Treatment Clinician Date Asthma Asthma Disease Active Univers with acute with acute 818 it y of [place], 00 Medical unspecifie unspecifie Br anch d asthma d asthma severity, severity, unspecifie unspecifie d whether d whether persistent persistent Shortness Shortness Disease Active Uni vers of breath of breath 5-27 ity of 00:00: [place] 00 Medical Branch Pneumonia Pneumonia Disease Active Uni vers 5-27 ity of 00:00: 00 Medical Branch RESENDIZ RESENDIZ Disease Active Univers (dyspnea (dyspnea 5-27 ity of on on 00:00: [place] exertion) exertion) 00 [facility] Branch Tachycardi Tachycardi Disease Active U nivers a a 5-27 ity of 00:00: 00 Medical Branch Essential Essential Disease Active Uni vers hypertensi hypertensi 5-27 it y of on on 00:00: 00 Medical Branch Normal Normal Disease Active Univers delivery delivery 8 ity of 00:00: [place] 00 Medical Branch Screening Screening Disease Active Overview: Univers for for 7- Formattin ity of diabetes diabetes 00:00: g of this [place] as mellitus mellitus 00 note Medica l might be Branch different from the original. ICD10 Diagnosis Term Proposal Specialist Utility 33-34 33-34 Disease Active Univers completed completed ity of weeks of weeks of [place] gestation( gestation( Ia dical 765.27) 765.27) Branch Body mass Body mass Disease Active Uni vers index 40 index 40 ity of and over, and over, [facility] adult adult [facility] Carrier or Carrier or Disease Active U nivers suspected suspected ity of carrier of carrier of [place] group B group B Medical Streptococ Streptococ Br anch cus cus Insufficie Insufficie Disease Active U nivers nt nt ity of [facility] Morbid Morbid Disease Active Univers obesity obesity ity of [facility] Other Other Disease Active Univers abnormal abnormal ity of glucose glucose [facility] Other Other Disease Active Univers ity of screening screening [facility] Screening Screening Disease Active Uni vers examinatio examinatio it y of n for n for [place] rubella rubella [facility] Supervisio Supervisio Disease Active U nivers n of other n of other it y of normal normal [place] [facility] Allergies, Adverse Reactions, Alerts Allergy Allergy Status Severity Reaction(s) Onset Inactive Treating Comm ents Source Name Type Date Date Clinician NO KNOWN Drug Active Univers ALLERGIE Class ity of S [facility] Social History Social Habit Start Date Stop Date Quantity Comments Source History of Passive smoker [facility] tobacco use [facility] Exposure to 2021-09-20 2021-09-30 Not sure [facility] SARS-CoV-2 00:00:00 15:14:00 [facility] (event) Branch Education 2021-09-30 2021-09-30 6 [facility] 00:00:00 00:00:00 [facility] Tobacco use and 2021-09-30 2021-09-30 Smokeless tobacco Un iversity of exposure 00:00:00 00:00:00 non-user [facility] Alcohol intake 2021-09-30 2021-09-30 Ex-drinker [facility] 00:00:00 00:00:00 (finding) [facility] Sex Ass[birth year] At [birth year] Universit y of 00:00:00 00:00:00 [facility] Smoking Status Start Date Stop Date Source Never smoked tobacco [facility] Medications Ordered Filled Start Stop Current Ordering Indication Dosage Frequency Signature Comments Components Source Medication Medication Date Date Medication? Clinician (SIG) Name Name hydroCHLORO 2021- Yes [id number] 25mg Take 1 Univers thiazide 25 8-20 09-20 tablet by it y of mg tablet 00:00: 04:59 mouth [place] 00 :00 daily for Medical 30 days. Branch lisinopriL 2021- Yes [id number] 40mg Take 1 Univers 40 mg 8-20 -20 tablet by ity of tablet 00:00: 04:59 mouth [place] 00 :00 daily for Medical 30 days. Branch loratadine 2021- Yes [id number] 10mg Take 1 Univers 10 mg 8-20 -20 tablet by ity of tablet 00:00: 04:59 mouth [place] 00 :00 daily for Medical 30 days. Branch montelukast 2021- Yes [id number] 10mg Take 1 Univers 10 mg 8-20 -20 tablet by ity of tablet 00:00: 04:59 mouth [place] 00 :00 daily for Medical 30 days. Branch predniSONE 2021- Yes [id number] 40mg Take 2 Univers 20 mg 8-20 -26 tablets by ity of tablet 00:00: 04:59 mouth [place] 00 :00 daily for Medical 5 days. Branch sulfur 2021- No [id number] 5mL 5 mL, Univ ers hexafluorid 10-01 Intravenou i ty of e microsphr 16:15: 16:15 s, ONCE, 1 [place] (LUMASON) 00 :00 dose, On Medica l injection 5 Mon Branch mL 10/01/21 at 1115, Routine
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 [place] 48 :00 Medical Branch loratadine 2021- No 10mg Take 10 mg Univers 10 mg 10-01- by mouth ity of tablet 14:41: 00:00 daily. [place] 48 :00 Medical Branch hydroCHLORO 2021- No 12.5mg Take 12.5 Univers thiazide 10-01-19 mg by ity of 12.5 mg 14:41: 00:00 mouth [place] tablet 48 :00 daily. Medical Unsure on Branch the dosage she takes metFORMIN 2021- No 500mg Take 500 Un harriet 500 mg 8-19 08-19 mg by ity of tablet 14:41: 00:00 mouth 2 [place] 48 :00 (two) Medical times Branch daily with meals. montelukast 2021-0 Yes 10mg 10 mg, Univ ers (SINGULAIR) 10-01 Oral, ity of tablet 10 14:00: DAILY, [place] mg 00 First dose Medical on Mon Branch 10/01/21 at 0900, Until Discontinu ed, Routine lisinopriL 0 Yes 40mg 40 mg, Unive rs (PRINIVIL,Z 10-01 Oral, ity of ESTRIL) 14:00: DAILY, [place] tablet 40 00 First dose Medi charles mg (after Branch last modificati on) on Mon10/01/21 at 0900, Until Discontinu ed, Routine predniSONE 2021-0 Yes 40mg 40 mg, Unive rs (DELTASONE) 10-01 Oral, ity of tablet 40 14:00: DAILY, [place] mg 00 First dose Medical on Mon Branch 10/01/21 at 0900, Until Discontinu ed, Routine loratadine 0 Yes 10mg 10 mg, Unive rs (CLARITIN) 10-01 Oral, ity of tablet 10 14:00: DAILY, [place] mg 00 First dose Medical on Mon Branch 10/01/21 at 0900, Until Discontinu ed, Routine hydroCHLORO 2021-0 Yes 25mg 25 mg, Univ ers thiazide 10-01 Oral, ity of (ESIDRIX) 14:00: DAILY, [place] tablet 25 00 First dose Medi charles mg on Mon Branch 10/01/21 at 0900, Until Discontinu ed, Routine enoxaparin 0 Yes 40mg 40 mg, Unive rs (LOVENOX) 10-01 Subcutaneo ity of injection 14:00: [place], DAILY, [place] 40 mg 00 First dose Medical on Mon Branch 10/01/21 at 0900, Until Discontinu ed, Routine metFORMIN 2021-0 Yes 500mg 500 mg, Univ ers (GLUCOPHAGE 10-01 Oral, BID ity of ) tablet 13:00: MEALS, [place] 500 mg 00 First dose Medical on Mon Branch 10/01/21 at 0800, Until Discontinu ed, Routine Sliding 2021-0 Yes Subcutaneo Univ ers Scale 10-01 us, TID ity of Insulin - 02:00: MEALS+HS, [place] as Lispro 00 First dose Medical (HumaLOG) + on [place] Branch Fsbg 09/30/21 at Testing 2100, Until Discontinu ed, Routine traMADoL 2021-0 Yes 50mg 50 mg, Univers (ULTRAM) 10-01 Oral, ity of tablet 50 01:32: Q6HPRN, [place] mg 26 Starting Medical on [place] Branch 09/30/21 at 2031, Until Discontinu ed, Routine, Pain (scale 7-10) acetaminoph 2021-0 Yes 650mg 650 mg, Un harriet en 10-01 Oral, ity of (TYLENOL) 01:32: Q6HPRN, [place] tablet 650 02 Starting Medic al mg on [place] Branch 09/30/21 at 2031, Until Discontinu ed, Routine, Pain (scale 4-6) glucagon 2021-0 Yes 1mg 1 mg, Univers (GLUCAGEN 10-01 Intramuscu ity of DIAGNOSTIC 01:23: lar, PRN, [place] KIT) 10 Starting Medical injection 1 on [facility] Branch mg 09/30/21 at 2022, Until Discontinu ed, LOGAN, Blood Glucose < or = 70 mg/dL and patient is unable to swallow or has mental changes. dextrose 50 2021-0 Yes 25mL 25 mL, Univ ers % in water 10-01 Slow IV ity of (D50W) 01:23: Push, PRN, [place] injection 10 Starting Medica l 25 mL on [facility] Branch 09/30/21 at 2022, Until Discontinu ed, LOGAN, Blood Glucose < or = 70 mg/dL and patient is unable to swallow or has mental status changes. diphenhydrA 0 Yes 25mg 25 mg, Univ ers MINE 10-01 Oral, ity of (BENADRYL) 01:10: Q6HPRN, [place] tablet 25 16 Starting Medica l mg on [place] Branch 09/30/21 at 2009, Until Discontinu ed, Routine, Itching, Mild Rash ipratropium 2021-0 Yes 3mL 3 mL, Unive rs -albuteroL 10-01 Inhalation ity of (DUONEB) 01:00: , Q4H, [place] 0.5 mg-3 00 First dose Medic al mg(2.5 mg on [facility] base)/3 mL 09/30/21 at nebulizer 2000, solution 3 Until mL Discontinu ed, Routine Budesonide 0 Yes [id number] 2{puff} Inhale 2 Univers 180 8-19 Puffs 2 ity of mcg/actuati 00:00: (two) [place] on aerosol 00 times Medical powder daily. Branch diphenhydrA 0 Yes [id number] 25mg Take 1 Univers MINE 25 mg 8-19 tablet by ity of tablet 00:00: mouth [place] 00 every 6 Medical (six) Branch hours as needed for Itching or Allergies. metFORMIN 0 2021- Yes [id number] 500mg Take 1 Univers 500 mg 8- 09-19 tablet by ity of tablet 00:00: 04:59 mouth 2 [place] 00 :00 (two) Medical times Branch daily with meals for 30 days. ipratropium 0 202- No 3mL 3 mL, [facility] ers -albuteroL 09-30 08-18 Inhalation it y of (DUONEB) 23:30: 22:37 , ONCE, 1 [place] 0.5 mg-3 00 :00 dose, On Medical mg(2.5 mg [facility] base)/3 mL 09/30/21 at nebulizer 1830, solution 3 Routine mL albuterol Yes 2.5mg 2.5 mg, [facility] ers (PROVENTIL) 818 Inhalation it y of 2.5 mg /3 23:25: , Q2HPRN, [place] mL (0.083 56 Starting Medica l %) on [facility] nebulizer 09/30/21 at solution 1825, 2.5 mg Until Discontinu ed, Routine, Shortness of Breath, Wheezing budesonide 0 Yes .5mg 0.5 mg, [facility] ers (PULMICORT 8-18 Inhalation ity of RESPULE) 23:15: , DAILY, [place] nebulizer 00 First dose Medi charles solution on [facility] 0.5 mg 09/30/21 at 1815, Until Discontinu ed, Routine acetaminoph 0 Yes 650mg 650 mg, Un harriet en 09-30 Oral, ity of (TYLENOL) 23:04: Q6HPRN, [place] tablet 650 08 Starting Medic al mg on [facility] 09/30/21 at 1804, Until Discontinu ed, Routine, Pain (scale 1-3) ipratropium 0 2021- No 3mL 3 mL, Univ ers -albuteroL 09-30 Inhalation it y of (DUONEB) 22:45: 21:34 , ONCE, 1 [place] as 0.5 mg-3 00 :00 dose, On Medical mg(2.5 mg [place] Branch base)/3 mL 09/30/21 at nebulizer 1745, solution 3 Routine mL magnesium 2021- No 1g 1 g, IV Univ ers sulfate in 09-30 Piggyback, it y of D5W 1 22:00: 22:22 ONCE, 1 [place] gram/100 mL 00 :00 dose, On [facility] RTU IV [place] Branch Piggyback 1 09/30/21 at g 1700, Administer over 60 Minutes, 100 mL ipratropium 0 2021- No 3mL 3 mL, Univ ers -albuteroL 09-30 Inhalation it y of (DUONEB) 21:45: 20:58 , ONCE, 1 [place] 0.5 mg-3 00 :00 dose, On Medical mg(2.5 mg [place] base)/3 mL 09/30/21 at nebulizer 1645, solution 3 Routine mL methylPREDN 2021- No 125mg 125 mg, U nivers ISolone sod 09-30 Intravenou i ty of succ 21:00: 21:00 s, ONCE, 1 [place] (SOLU-MEDRO 00 :00 dose, On [facility] L (PF)) [place] Branch injection 09/30/21 at 125 mg 1600, LOGAN Dose 0 No Unknown - 00:00: 00 albuterol 2021-0 2021- No 7.5mg 7.5 mg, Uni vers (PROVENTIL) 09-09 Inhalation i ty of 2.5 mg /3 05:15: 04:28 , ONCE, 1 [place] mL (0.083 00 :00 dose, On Medica l %) [place] Branch nebulizer 09/09/21 at solution 0015, STAT 7.5 mg albuterol 0 2022- No 7.5mg 7.5 mg, Uni vers (PROVENTIL) 09-09 Inhalation i ty of 2.5 mg /3 03:45: 03:07 , ONCE, 1 [place] mL (0.083 00 :00 dose, On Medica l %) Mon Branch nebulizer 09/08/21 at solution 2245, STAT 7.5 mg ipratropium 2021- No 3mL 3 mL, Univ ers -albuteroL 09-09 Inhalation it y of (DUONEB) 03:45: 03:07 , ONCE, 1 [place] 0.5 mg-3 00 :00 dose, On Medical mg(2.5 mg Mon Branch base)/3 mL 09/08/21 at nebulizer 2245, solution 3 Routine mL methylPREDN 2021- No 40mg 40 mg, Uni vers ISolone sod 09-09 Intravenou i ty of succ 02:45: 02:48 s, ONCE, 1 [place] (SOLU-MEDRO 00 :00 dose, On Medi charles L (PF)) Mon Branch injection 09/08/21 at 40 mg 2145, LOGAN sodium Yes 5mL 5 mL, Univers chloride 09-09 Intravenou ity o f (NS) 02:37: s, PRN, [place] injection 5 17 Starting Medi charles mL on Mon Branch 09/08/21 at 2137, Until Discontinu ed, Routine, IV line flushing predniSONE 2021-0 Yes [id number] Take 1 Univers 20 mg 7-28 tablet by ity of tablet 00:00: mouth [place] 00 daily Medical until gone Branch albuterol Yes [id number] 2{puff} Inhale 2 Univers 90 -28 Puffs ity of mcg/actuati 00:00: every 4 [place] on inhaler 00 (four) Medical hours as Branch needed for Wheezing or Shortness of Breath. predniSONE 2021- No [id number] Take 1 Univers 20 mg 7-28 08-19 tablet by ity of tablet 00:00: 00:00 mouth [place] 00 :00 daily Medical until gone Branch albuterol 0 2021- No [id number] 2{puff} Inhale 2 Univers 90 -28 08-19 Puffs ity of mcg/actuati 00:00: 00:00 every 4 [place] inhaler 00 :00 (four) Medical hours as Branch needed for Wheezing or Shortness of Breath. Dose 2-0 No Unknown 7- 00:00: 00 Dose 2-0 No Unknown 7 00:00: 00 Dose 2022-0 No Unknown 7 00:00: 00 Dose 2022-0 No Unknown 7 00:00: 00 Dose 2022-0 No Unknown 7 00:00: 00 Dose 2022-0 No Unknown 08-18 00:00: 00 TAKE 1 2-0 No 500 TABLET 7-06 TWICE DAILY 00:00: WITH FOOD. 00 Dose 2-0 No Unknown 08-18 00:00: 00 Dose 2-0 No Unknown 08-18 00:00: 00 TAKE 1 2-0 No 500 TABLET -06 TWICE DAILY 00:00: WITH FOOD. 00 amlodipine 2021-0 No 1mg 10 mg 6-18 tablet 00:00: 00 hydrochloro 2-0 No 1mg thiazide 6-18 12.5 mg 00:00: tablet 00 amlodipine 2-0 No 1mg 10 mg 6-18 tablet 00:00: 00 hydrochloro 2-0 No 1mg thiazide 6-18 12.5 mg 00:00: tablet 00 Symbicort 2021-0 No 2mcg/ac 160 mcg-4.5 5-09 tuation mcg/actuati 00:00: on HFA 00 aerosol inhaler ProAir HFA 2021-0 No 12mcg/a 90 5-09 ctuatio mcg/actuati 00:00: n on aerosol 00 inhaler loratadine 2-0 No 1mg 10 mg 5-09 tablet 00:00: 00 amlodipine 2022-0 No 1mg 10 mg 5-09 tablet 00:00: 00 hydrochloro 2-0 No 1mg thiazide 25 5-09 mg tablet 00:00: 00 lisinopril 2-0 No 1mg 40 mg 5-09 tablet 00:00: 00 ipratropium 2-0 No 3mg 0.5 5-09 base)/3 mg-albutero 00:00: mL l 3 mg (2.5 00 mg base)/3 mL nebulizatio n soln Symbicort 2021-0 No 2mcg/ac 160 mcg-4.5 5-09 tuation mcg/actuati 00:00: on HFA 00 aerosol inhaler ProAir HFA 2021-0 No 12mcg/a 90 5-09 ctuatio mcg/actuati 00:00: n on aerosol 00 inhaler loratadine 2021-0 No 1mg 10 mg 5-09 tablet 00:00: 00 amlodipine 2021-0 No 1mg 10 mg 5-09 tablet 00:00: 00 hydrochloro 2021-0 No 1mg thiazide 25 5-09 mg tablet 00:00: 00 lisinopril 2021-0 No 1mg 40 mg 5-09 tablet 00:00: 00 ipratropium 2021-0 No 3mg 0.5 5-09 base)/3 mg-albutero 00:00: mL l 3 mg (2.5 00 mg base)/3 mL nebulizatio n soln Dose 2021-0 No Unknown 5-07 00:00: 00 Dose 2-0 No Unknown 5-07 00:00: 00 Dose 2-0 No Unknown 5-07 00:00: 00 Dose 2-0 No Unknown 5-07 00:00: 00 Dose 2-0 No Unknown 5-07 00:00: 00 Dose 2-0 No Unknown 5-07 00:00: 00 Dose 2-0 No Unknown 5-06 00:00: 00 Dose 2-0 No Unknown 5-06 00:00: 00 Dose 2-0 No Unknown 5-06 00:00: 00 Dose 2022-0 No Unknown 5-06 00:00: 00 Dose 2-0 No Unknown 5-06 00:00: 00 Dose 2-0 No Unknown 5-06 00:00: 00 Dose 2-0 No Unknown 5-06 00:00: 00 Dose 2-0 No Unknown 5-06 00:00: 00 Dose 2-0 No Unknown 5-06 00:00: 00 Dose 2-0 No Unknown 5-06 00:00: 00 Symbicort 2-0 No 2mcg/ac 160 mcg-4.5 2-01 tuation mcg/actuati 00:00: on HFA 00 aerosol inhaler ProAir HFA 2022-0 No 12mcg/a 90 2-01 ctuatio mcg/actuati 00:00: n on aerosol 00 inhaler Dose 2-0 No Unknown 2-01 00:00: 00 lisinopril 2022-0 No 1mg 40 mg 2-01 tablet 00:00: 00 hydrochloro 2022-0 No 1mg thiazide 25 2-01 mg tablet 00:00: 00 amlodipine 2022-0 No 1mg 10 mg 2-01 tablet 00:00: 00 Dose 2022-0 No Unknown 2-01 00:00: 00 Dose 2022-0 No Unknown 2-01 00:00: 00 Dose 2022-0 No Unknown 2-01 00:00: 00 methotrexat 2022-0 No 6mg e sodium 2-01 2.5 mg 00:00: tablet 00 methotrexat 2022-0 No 6mg e sodium 2-01 2.5 mg 00:00: tablet 00 prednisone 2022-0 No mg 20 mg 2-01 tablet 00:00: 00 prednisone 2022-0 No mg 20 mg 2-01 tablet 00:00: 00 indomethaci 2022-0 No 1mg n 50 mg 2-01 capsule 00:00: 00 indomethaci 2022-0 No 1mg n 50 mg 2-01 capsule 00:00: 00 Symbicort 2022-0 No 2mcg/ac 160 mcg-4.5 2-01 tuation mcg/actuati 00:00: on HFA 00 aerosol inhaler ProAir HFA 2-0 No 12mcg/a 90 2-01 ctuatio mcg/actuati 00:00: n on aerosol 00 inhaler Dose 2-0 No Unknown 2-01 00:00: 00 lisinopril 2022-0 No 1mg 40 mg 2-01 tablet 00:00: 00 hydrochloro 2022-0 No 1mg thiazide 25 2-01 mg tablet 00:00: 00 amlodipine 2022-0 No 1mg 10 mg 2-01 tablet 00:00: 00 Dose 2022-0 No Unknown 2-01 00:00: 00 Dose 2022-0 No Unknown 2-01 00:00: 00 Dose 2022-0 No Unknown 2-01 00:00: 00 methotrexat 2022-0 No 6mg e sodium 2-01 2.5 mg 00:00: tablet 00 methotrexat 2-0 No 6mg e sodium 2-01 2.5 mg 00:00: tablet 00 prednisone 2-0 No mg 20 mg 2-01 tablet 00:00: 00 prednisone 2-0 No mg 20 mg 2-01 tablet 00:00: 00 indomethaci 2-0 No 1mg n 50 mg 2-01 capsule 00:00: 00 indomethaci 2-0 No 1mg n 50 mg 2-01 capsule 00:00: 00 Symbicort 2020-1 No 2mcg/ac 160 mcg-4.5 0-18 tuation mcg/actuati 00:00: on HFA 00 aerosol inhaler ProAir HFA 2020-1 No 1mcg/ac 90 0-18 tuation mcg/actuati 00:00: on aerosol 00 inhaler hydrochloro 2020-1 No 1mg thiazide 25 0-18 mg tablet 00:00: 00 amlodipine 1-1 No 1mg 10 mg 0-18 tablet 00:00: 00 lisinopril 2020-1 No 1mg 20 mg 0-18 tablet 00:00: 00 Symbicort 2020-1 No 2mcg/ac 160 mcg-4.5 0-18 tuation mcg/actuati 00:00: on HFA 00 aerosol inhaler ProAir HFA 2020-1 No 1mcg/ac 90 0-18 tuation mcg/actuati 00:00: on aerosol 00 inhaler hydrochloro 2020-1 No 1mg thiazide 25 0-18 mg tablet 00:00: 00 amlodipine 1-1 No 1mg 10 mg 0-18 tablet 00:00: 00 lisinopril 2020-1 No 1mg 20 mg 0-18 tablet 00:00: 00 Symbicort 1-0 No 2mcg/ac 160 mcg-4.5 8-30 tuation mcg/actuati 00:00: on HFA 00 aerosol inhaler Symbicort 2020-0 No 2mcg/ac 160 mcg-4.5 8-30 tuation mcg/actuati 00:00: on HFA 00 aerosol inhaler Symbicort 2020-0 No 2mcg/ac 160 mcg-4.5 8-27 tuation mcg/actuati 00:00: on HFA 00 aerosol inhaler amlodipine 2021-0 No 1mg 10 mg 8-27 tablet 00:00: 00 hydrochloro 2021-0 No 1mg thiazide 25 8-27 mg tablet 00:00: 00 Symbicort 2021-0 No 2mcg/ac 160 mcg-4.5 8-27 tuation mcg/actuati 00:00: on HFA 00 aerosol inhaler amlodipine 2021-0 No 1mg 10 mg 8-27 tablet 00:00: 00 hydrochloro 2021-0 No 1mg thiazide 25 8-27 mg tablet 00:00: 00 Advair HFA 1-0 No 1mcg/ac 230 mcg-21 8-05 tuation mcg/actuati 00:00: on aerosol 00 inhaler amlodipine 1-0 No 1mg 5 mg tablet 8-05 00:00: 00 lisinopril 2021-0 No 1mg 40 mg 8-05 tablet 00:00: 00 hydrochloro 2021-0 No 1mg thiazide 8-05 12.5 mg 00:00: tablet 00 loratadine 2021-0 No 1mg 10 mg 8-05 tablet 00:00: 00 Dose 2021-0 No Unknown 8-05 00:00: 00 Advair HFA 1-0 No 1mcg/ac 230 mcg-21 8-05 tuation mcg/actuati 00:00: on aerosol 00 inhaler amlodipine 1-0 No 1mg 5 mg tablet 8-05 00:00: 00 lisinopril 2021-0 No 1mg 40 mg 8-05 tablet 00:00: 00 hydrochloro 2021-0 No 1mg thiazide 8-05 12.5 mg 00:00: tablet 00 loratadine 2021-0 No 1mg 10 mg 8-05 tablet 00:00: 00 Dose 2021-0 No Unknown 8-05 00:00: 00 amlodipine 2021-0 No 1mg 5 mg tablet 08-25 00:00: 00 amlodipine 2021-0 No 1mg 5 mg tablet 08-25 00:00: 00 Advair HFA 2021-0 No 1mcg/ac 230 mcg-21 7- tuation mcg/actuati 00:00: on aerosol 00 inhaler levofloxaci 1-0 No 1mg n 500 mg 7- tablet 00:00: 00 prednisone 2021-0 No mg 20 mg 7-07 tablet 00:00: 00 Bromfed DM 2020-0 No 5mg/5 2 mg-30 7-07 mL mg-10 mg/5 00:00: mL oral 00 syrup ipratropium 2020-0 No 3mg 0.5 7-07 base)/3 mg-albutero 00:00: mL l 3 mg (2.5 00 mg base)/3 mL nebulizatio n soln Advair HFA 0 No 1mcg/ac 230 mcg-21 7- tuation mcg/actuati 00:00: on aerosol 00 inhaler levofloxaci 2020-0 No 1mg n 500 mg 7- tablet 00:00: 00 prednisone 2020-0 No mg 20 mg 7-07 tablet 00:00: 00 Bromfed DM 0 No 5mg/5 2 mg-30 7-07 mL mg-10 mg/5 00:00: mL oral 00 syrup ipratropium 2020-0 No 3mg 0.5 7-07 base)/3 mg-albutero 00:00: mL l 3 mg (2.5 00 mg base)/3 mL nebulizatio n soln loratadine 0 No 1mg 10 mg 6-28 tablet 00:00: 00 albuterol 2020-0 No 3/3 mL sulfate 2.5 6-28 (0.083 mg/3 mL 00:00: %) (0.083 %) 00 solution for nebulizatio n loratadine 2020-0 No 1mg 10 mg 6-28 tablet 00:00: 00 albuterol 2020-0 No 3/3 mL sulfate 2.5 6-28 (0.083 mg/3 mL 00:00: %) (0.083 %) 00 solution for nebulizatio n methylPREDN 2020-0 Yes [id number] Take by [facility] ISolone 4 6-15 mouth ity of mg tablets 00:00: [place]-INSTRU [place] 00 CTIONS. Medical follow Branch package directions methylPREDN 2020-0 Yes [id number] Take by Univers ISolone 4 6-15 mouth ity of mg tablets 00:00: SEE-INSTRU [place] 00 CTIONS. Medical follow Branch package directions methylPREDN 2020-0 Yes [id number] Take by [facility] ISolone 4 6-15 mouth ity of mg tablets 00:00: SEE-INSTRU [place] 00 CTIONS. Medical follow Branch package directions methylPREDN 2020-0 2021- No [id number] Take by [facility] ISolone 4 6-15 08-19 mouth ity of mg tablets 00:00: 00:00 SEE-INSTRU [place] 00 :00 CTIONS. Medical follow Branch package directions methylPREDN 2020-0 Yes 40mg 40 mg, Univ ers ISolone sod -14 Intravenou it y of succ 19:00: s, Q8H, [place] (SOLU-MEDRO 00 First dose Me dical L (PF)) on Mon [place] injection 07/27/20 at 40 mg 1400, Until Discontinu ed, Routine iopamidol 0 2020- No [id number] 100mL 100 mL, [facility] (ISOVUE 07-27 06-14 Intravenou ity o f 370-500 mL) 16:30: 15:12 s, ONCE, 1 [place] injection 00 :00 dose, Mon Medic al 100 mL 07/27/20 at Branch 1130, Routine lisinopriL 0 Yes 40mg 40 mg, Unive rs (PRINIVIL,Z 6- Oral, ity of ESTRIL) 14:00: DAILY, [place] tablet 40 00 First dose Medi charles mg on [facility] Branch 07/27/20 at 0900, Until Discontinu ed hydroCHLORO 0 Yes 12.5mg 12.5 mg, [facility] thiazide 14 Oral, ity of (ESIDRIX) 14:00: DAILY, [place] capsule 00 First dose Medica l 12.5 mg on [facility] Branch 07/27/20 at 0900, Until Discontinu ed, Routine ipratropium 2020-0 Yes 3mL 3 mL, Unive rs -albuteroL 14 Inhalation ity of (DUONEB) 13:00: , QID, [place] 0.5 mg-3 00 First dose Medic al mg(2.5 mg on [facility] base)/3 mL 07/27/20 at nebulizer 0800, solution 3 Until mL Discontinu ed, Routine enoxaparin 2020-0 Yes 40mg 40 mg, Unive rs (LOVENOX) 6-14 Subcutaneo ity of injection 13:00: us, Q12H, [place] as 40 mg 00 First dose Medical on [facility] Branch 07/27/20 at 0800, Until Discontinu ed, Routine docusate Yes 100mg 100 mg, Unive rs (COLACE) 07-27 Oral, ity of capsule 100 10:20: QDAILYPRN, [place] mg 17 Starting Medical [facility] 07/27/20 at 0520, Until Discontinu ed, Routine, Constipati on HYDROcodone 2020- No 1{tbl} 1 tablet, Univers -acetaminop 07-27 Oral, ity of hen (NORCO 10:20: 10:19 Q6HPRN, [place] 5) 5-325 mg 07 :07 Starting Medi charles tablet 1 [facility] [facility] 07/27/20 at 0520, Until 07/29/20 at 0519, Routine, Pain (scale 4-6) acetaminoph Yes 650mg 650 mg, Un harriet en 07-27 Oral, ity of (TYLENOL) 10:19: Q6HPRN, [place] tablet 650 59 Starting Medic al mg [facility] 07/27/20 at 0519, Until Discontinu ed, Routine, Pain (scale 1-3), Temp > 38.5 C albuterol 2020- No 5mg 5 mg, Univer s (PROVENTIL) 07-27 Inhalation i ty of 2.5 mg /3 08:30: 08:41 , [place]CE, 1 [place] (0.083 00 :00 dose, Mon Medic al %) 07/27/20 at [place] nebulizer 0330, STAT solution 5 mg albuterol 2020- No 5mg 5 mg, Univer s (PROVENTIL) 07-27 Inhalation i ty of 2.5 mg /3 07:15: 07:13 , ONCE, 1 [place] (0.083 00 :00 dose, Mon Medic al %) 07/27/20 at [place] nebulizer 0215, STAT solution 5 mg magnesium 2020- No 2g 2 g, IV Univ ers sulfate in 07-27 Piggyback, it y of water 2 07:15: 07:15 ONCE, 1 [place] gram/50 mL 00 :00 dose, Mon Medi charles (4 %) 07/27/20 at [place] infusion 2 0215, g Routine methylpredn No 125mg 125 mg, IV Univers isolone sod 07-27 Piggyback, i ty of succ 07:15: 06:08 ONCE, 1 [place] (SOLU-MEDRO 00 :00 dose, Mon Med ical L) 07/27/20 at [place] injection 0215, STAT 125 mg ipratropium No .5mg 0.5 mg, Un harriet (ATROVENT) 07-27 Inhalation it y of 0.02 % 06:15: 06:06 , ONCE, 1 [place] nebulizer 00 :00 dose, Mon Medic al solution 07/27/20 at [facility] h 0.5 mg 0115, LOGAN albuterol No 7.5mg 7.5 mg, Uni vers (PROVENTIL) 07-27 Inhalation i ty of 2.5 mg /3 06:15: 06:06 , ONCE, 1 [place] (0.083 00 :00 dose, Mon Medic al %) 07/27/20 at [place] nebulizer 0115, STAT solution 7.5 mg predniSONE 2020- No [id number] 40mg Take 2 Univers 20 mg 07-15 tablets by ity of tablet 00:00: 04:59 mouth [place] 00 :00 daily for Medical 4 days. [place] levoFLOXaci Yes 750mg 750 mg, Un harriet n 07-14 Oral, Q24H ity of (LEVAQUIN) 16:45: ABX, [place] tablet 750 00 dose on Medica l mg 07/14/20 [place] at 1145, Until Discontinu ed, LOGAN
Re ason for Anti-Infec tive: Documented Infection< br>Documen romero Infection Site: Respirator y
Durat ion of Therapy: 7 days predniSONE 2020- No 20mg Take 20 mg Univers 20 mg 07-14 by mouth ity of tablet 15:41: 00:00 daily. [place] 01 :00 Medical Branch albuterol 2020- No Inhale. [facility] ers sulfate 07-14 ity of (PROAIR 15:35: [...] tablet Branch predniSONE Yes 40mg 40 mg, [facility] (DELTASONE) 07-14 Oral, ity of tablet 40 14:00: DAILY, [place] mg 00 First dose Medical on Tu Branch 07/14/20 at 0900, Until Discontinu ed, Routine Sliding Yes Subcutaneo [facility] ers Scale 07-14 us, TID ity of Insulin - 02:00: MEALS+HS, [place] as Lispro 00 First dose Medical (HumaLOG) + on Mon Branch Fsbg 07/13/20 at Testing 2100, Until Discontinu ed, Routine levoFLOXaci Yes [id number] 750mg Take 1 Univers n 750 mg 07-14 tablet by ity of tablet 00:00: mouth [place] 00 every 24 Medical (twenty-fo Branch ur) hours. albuterol Yes [id number] 2{puff} Inhale 2 Univers 90 07-14 Puffs ity of mcg/actuati 00:00: every 4 [place] on inhaler 00 (four) Medical hours as Branch needed for Wheezing or Shortness of Breath. levoFLOXaci Yes [id number] 750mg Take 1 Univers n 750 mg 07-14 tablet by ity of tablet 00:00: mouth [place] 00 every 24 Medical (twenty-fo Branch ur) hours. albuterol Yes [id number] 2{puff} Inhale 2 Univers 90 - Puffs ity of mcg/actuati 00:00: every 4 [place] as on inhaler 00 (four) Medical hours as Branch needed for Wheezing or Shortness of Breath. levoFLOXaci Yes [id number] 750mg Take 1 Univers n 750 mg 6-01 tablet by ity of tablet 00:00: mouth [place] 00 every 24 Medical (twenty-fo Branch ur) hours. albuterol Yes [id number] 2{puff} Inhale 2 Univers 90 6-01 Puffs ity of mcg/actuati 00:00: every 4 [place] on inhaler 00 (four) Medical hours as Branch needed for Wheezing or Shortness of Breath. levoFLOXaci Yes [id number] 750mg Take 1 Univers n 750 mg 6-01 tablet by ity of tablet 00:00: mouth [place] 00 every 24 Medical (twenty-fo Branch ur) hours. albuterol Yes [id number] 2{puff} Inhale 2 Univers 90 6-01 Puffs ity of mcg/actuati 00:00: every 4 [place] on inhaler 00 (four) Medical hours as Branch needed for Wheezing or Shortness of Breath. albuterol Yes [id number] 2{puff} Inhale 2 Univers 90 6-01 Puffs ity of mcg/actuati 00:00: every 4 [place] as on inhaler 00 (four) Medical hours as Branch needed for Wheezing or Shortness of Breath. levoFLOXaci Yes [id number] 750mg Take 1 Univers n 750 mg 6-01 tablet by ity of tablet 00:00: mouth [place] 00 every 24 Medical (twenty-fo Branch ur) hours. albuterol Yes [id number] 2{puff} Inhale 2 Univers 90 6-01 Puffs ity of mcg/actuati 00:00: every 4 [place] as on inhaler 00 (four) Medical hours as Branch needed for Wheezing or Shortness of Breath. levoFLOXaci 2021- No [id number] 750mg Take 1 Univers n 750 mg -02 20- tablet by ity o f tablet 00:00: 00:00 mouth [place] 00 :00 every 24 Medical (twenty-fo Branch ur) hours. lisinopriL 2020- No [id number] 40mg Take 1 Univers 40 mg 6- 07-02 tablet by ity of tablet 00:00: 04:59 mouth [place] 00 :00 daily for Medical 30 days. Branch hydroCHLORO 2020- No [id number] 12.5mg Take 1 Univers thiazide 07-14 capsule by ity of 12.5 mg 00:00: 04:59 mouth [place] capsule 00 :00 daily for Medical 30 days. [place] lisinopriL 2020- No [id number] 40mg Take 1 Univers 40 mg 07-14 tablet by ity of tablet 00:00: 04:59 mouth [place] 00 :00 daily for Medical 30 days. [place] hydroCHLORO 2020- No [id number] 12.5mg Take 1 Univers thiazide 07-14 capsule by ity of 12.5 mg 00:00: 04:59 mouth [place] capsule 00 :00 daily for Medical 30 days. [place] lisinopriL 2020- No [id number] 40mg Take 1 Univers 40 mg 07-14 tablet by ity of tablet 00:00: 04:59 mouth [place] 00 :00 daily for Medical 30 days. [place] hydroCHLORO 2020- No [id number] 12.5mg Take 1 Univers thiazide 07-14 capsule by ity of 12.5 mg 00:00: 04:59 mouth [place] capsule 00 :00 daily for Medical 30 days. [place] lisinopriL 2020- No [id number] 40mg Take 1 Univers 40 mg 07-14 tablet by ity of tablet 00:00: 04:59 mouth [place] 00 :00 daily for Medical 30 days. [place] hydroCHLORO 2020- No [id number] 12.5mg Take 1 Univers thiazide 07-14 capsule [...] injection 28 Starting Medica l 25 mL [facility] Branch 07/13/20 at 1816, Until Discontinu ed, LOGAN, Blood Glucose < or = 70 mg/dL and patient is unable to swallow or has mental status changes. lisinopriL 0 Yes 20mg 20 mg, Unive rs (PRINIVIL,Z 07-12 Oral, ity of ESTRIL) 14:00: DAILY, [place] tablet 20 00 First dose Medi charles mg (after Branch last modificati on) on 07/12/20 at 0900, Until Discontinu ed, Routine furosemide 2020- No 20mg 20 mg, Univ ers (LASIX) 07-1230 Slow IV ity of injection 01:00: 02:08 Push, [place] 20 mg 00 :00 ONCE, 1 Medical dose, [facility] 07/11/20 at 2000, Routine zolpidem Yes 5mg 5 mg, Univers (AMBIEN) 07-11 Oral, ity of tablet 5 mg 23:15: QHSPRN, [place] 57 Starting Medical [facility] 07/11/20 at 1815, Until Discontinu ed, Routine, Insomnia amLODIPine Yes 10mg 10 mg, Unive rs (NORVASC) 07-11 Oral, ity of tablet 10 21:00: DAILY, [place] mg 00 First dose Medical on [facility] 07/11/20 at 1600, Until Discontinu ed, Routine methylpredn 2020- No 60mg 60 mg, Uni vers isolone sod 07-11 Slow IV ity of succ 17:30: 23:16 Push, Q6H, [place] (SOLU-MEDRO 00 :03 First dose Me dical L) on [facility] injection 07/11/20 at 60 mg 1230, Until Discontinu ed, Routine albuterol 0 Yes 2.5mg 2.5 mg, Univ ers (PROVENTIL) 07-11 Inhalation it y of 2.5 mg /3 17:04: , Q2HPRN, [place] mL (0.083 47 Starting Medica l %) [facility] nebulizer 07/11/20 at solution 1204, 2.5 mg Until Discontinu ed, Routine, Shortness of Breath, Wheezing enoxaparin 2021-0 Yes 40mg 40 mg, Unive rs (LOVENOX) 07-09 Subcutaneo ity of injection 22:00: [place], DAILY, [place] 40 mg 00 First dose Medical on [facility] Branch 07/09/20 at 1700, Until Discontinu ed, Routine lisinopriL 2020- No 10mg 10 mg, Univ ers (PRINIVIL,Z 07-09 Oral, ity of ESTRIL) 14:00: 20:46 DAILY, [place] tablet 10 00 :45 First dose Medi charles mg on [facility] Branch 07/09/20 at 0900, Until Discontinu ed, Routine predniSONE No 50mg 50 mg, Univ ers (DELTASONE) 07-09 Oral, ity of tablet 50 14:00: 23:57 DAILY, [place] mg 00 :50 First dose Medical on [facility] Branch 07/09/20 at 0900, Until Discontinu ed, Routine NaCl 0.9% Yes 1000mL at 50 Unive rs (NS) IV 5 mL/hr, IV ity of infusion 13:30: Infusion, [place] 1,000 mL 00 CONTINUOUS Medic al , Starting Branch [facility] 07/09/20 at 0830, Until Discontinu ed, Routine docusate Yes 100mg 100 mg, Unive rs (COLACE) 07-09 Oral, BID, ity o f capsule 100 13:00: First dose [place] mg 00 on [facility] 07/09/20 at Branch 0800, Until Discontinu ed, Routine ipratropium No 3mL 3 mL, Univ ers -albuteroL 07-09 Inhalation it y of (DUONEB) 13:00: 08:57 , QID, [place] 0.5 mg-3 00 :36 First dose Medic al mg(2.5 mg on [facility] base)/3 mL 07/09/20 at nebulizer 0800, solution 3 Until mL Discontinu ed, Routine ipratropium No 3mL 3 mL, Univ ers -albuteroL 07-09 Inhalation it y of (DUONEB) 13:00: 08:57 , QID, [place] 0.5 mg-3 00 :36 First dose Medic al mg(2.5 mg on [place] Branch base)/3 mL 07/09/20 at nebulizer 0800, solution 3 Until mL Discontinu ed, Routine piperacilli 2020-2020- No 3.375g 3.375 g, Univers n-tazobacta 07-09 06-01 IV ity of m (ZOSYN) 10:00: 15:26 [...] IV Push, ity of (PF)) 09:03: Q6HPRN, [place] injection 4 54 Starting Medi charles mg [place] Branch 07/09/20 at 0403, Until Discontinu ed, Routine, Nausea and Vomiting (N/V) budesonide 0 Yes .5mg 0.5 mg, Univ ers (PULMICORT 07-09 Inhalation ity of RESPULE) 09:00: , BID, [place] nebulizer 00 First dose Medi charles solution on [place] Branch 0.5 mg 07/09/20 at 0400, Until Discontinu ed, Routine
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 Restricted medication : MEGADC ipratropium Yes 3mL 3 mL, Unive rs -albuteroL 07-09 Inhalation ity of (DUONEB) 09:00: , Q4H, [place] 0.5 mg-3 00 First dose Medic al mg(2.5 mg (after Branch base)/3 mL last nebulizer modificati solution 3 on) on [place] mL 07/09/20 at 0400, Until Discontinu ed, Routine albuterol 0 2020- No 2.5mg 2.5 mg, Uni vers (PROVENTIL) 07-09 05-27 Inhalation i ty of 2.5 mg /3 09:00: 07:56 , ONCE, 1 [place] mL (0.083 00 :00 dose, [place] Medic al %) 07/09/20 at [place] nebulizer 0400, STAT solution 2.5 mg magnesium 2020- No 2g 2 g, IV Univ ers sulfate in 07-09 Piggyback, it y of water 2 06:45: 06:25 ONCE, 1 [place] gram/50 mL 00 :00 dose, [place] Medi charles (4 %) 07/09/20 at [place] infusion 2 0145, g Routine methylpredn 2020- No 125mg 125 mg, IV Univers isolone sod 07-09 Piggyback, i ty of succ 06:45: 05:31 ONCE, 1 [place] (SOLU-MEDRO 00 :00 dose, [place] Med ical L) 07/09/20 at [place] injection 0145, STAT 125 mg levoFLOXaci 2020- No 750mg 750 mg, IV Univers n in D5W 07-09 Piggyback, ity of (LEVAQUIN) 06:30: 08:02 Administer [place] 750 mg/150 00 :00 over 90 Medica l mL Minutes, [place] Piggyback ONCE, 1 750 mg dose, [place] 07/09/20 at 0130, LOGAN
Re ason for Anti-Infec tive: Empiric Therapy for Suspected Infection< br>Empiric Therapy Site: Respirator y
Durat ion of therapy: 72 hours ProAir HFA 2020-0 No 1mcg/ac 90 5-18 tuation mcg/actuati 00:00: on aerosol 00 inhaler lisinopril 1-0 No 1mg 40 mg 5-18 tablet 00:00: 00 hydrochloro 1-0 No 1mg thiazide 5-18 12.5 mg 00:00: tablet 00 naproxen 2021-0 No 1mg 500 mg 5-18 tablet 00:00: 00 ProAir HFA 1-0 No 1mcg/ac 90 5-18 tuation mcg/actuati 00:00: on aerosol 00 inhaler lisinopril 1-0 No 1mg 40 mg 5-18 tablet 00:00: 00 hydrochloro 2021-0 No 1mg thiazide 5-18 12.5 mg 00:00: tablet 00 naproxen 2021-0 No 1mg 500 mg 5-18 tablet 00:00: 00 lisinopril 2019-0 No 2mg 20 4-21 mg-hydrochl 00:00: orothiazide 00 12.5 mg tablet naproxen 2019-0 No 1mg 500 mg 4-21 tablet 00:00: 00 methotrexat 2020-0 No 3mg e sodium 4-21 2.5 mg 00:00: tablet 00 lisinopril 2019-0 No 2mg 20 4-21 mg-hydrochl 00:00: orothiazide 00 12.5 mg tablet naproxen 2019-0 No 1mg 500 mg 4-21 tablet 00:00: 00 methotrexat 2019-0 No 3mg e sodium 4-21 2.5 mg 00:00: tablet 00 lisinopril 2018-1 No 2mg 20 2-04 mg-hydrochl 00:00: orothiazide 00 12.5 mg tablet lisinopril 2018-1 No 2mg 20 2-04 mg-hydrochl 00:00: orothiazide 00 12.5 mg tablet lisinopril 2017-0 No 2mg 20 7-31 mg-hydrochl 00:00: orothiazide 00 12.5 mg tablet naproxen 2018-0 No 1mg 500 mg 7-31 tablet 00:00: 00 naproxen 2018-0 No 1mg 500 mg 7-31 tablet 00:00: 00 methotrexat 2018-0 No 3mg e sodium 7-31 2.5 mg 00:00: tablet 00 methotrexat 2018-0 No 3mg e sodium 7-31 2.5 mg 00:00: tablet 00 prednisone 2018-0 No mg 20 mg 7-31 tablet 00:00: 00 lisinopril 2018-0 No 2mg 20 7-31 mg-hydrochl 00:00: orothiazide 00 12.5 mg tablet naproxen 2018-0 No 1mg 500 mg 7-31 tablet 00:00: 00 naproxen 2018-0 No 1mg 500 mg 7-31 tablet 00:00: 00 methotrexat 2018-0 No 3mg e sodium 7-31 2.5 mg 00:00: tablet 00 methotrexat 2018-0 No 3mg e sodium 7-31 2.5 mg 00:00: tablet 00 prednisone 2018-0 No mg 20 mg 7-31 tablet 00:00: 00 azithromyci 2018-0 No 2mg n 250 mg 5-07 tablet 00:00: 00 lisinopril 2018-0 No 2mg 20 5-07 mg-hydrochl 00:00: orothiazide 00 12.5 mg tablet prednisone 2018-0 No mg 20 mg 5-07 tablet 00:00: 00 azithromyci 2018-0 No 2mg n 250 mg 5-07 tablet 00:00: 00 lisinopril 2018-0 No 2mg 20 5-07 mg-hydrochl 00:00: orothiazide 00 12.5 mg tablet prednisone 2018-0 No mg 20 mg 5-07 tablet 00:00: 00 methotrexat 2017- No 3mg e sodium 1-07 2.5 mg 00:00: tablet 00 methotrexat 2016-02 No 3mg e sodium 1-07 2.5 mg 00:00: tablet 00 lisinopril 2016-02 No 2mg 20 1-06 mg-hydrochl 00:00: orothiazide 00 12.5 mg tablet prednisone 2016-02 No 1mg 20 mg 1-06 tablet 00:00: 00 naproxen 2016-02 No 1mg 500 mg 1-06 tablet 00:00: 00 Vitamin D2 2016- No 1unit 50,000 unit 1-06 capsule 00:00: 00 lisinopril 2016-02 No 2mg 20 1-06 mg-hydrochl 00:00: orothiazide 00 12.5 mg tablet prednisone 2016-02 No 1mg 20 mg 1-06 tablet 00:00: 00 naproxen 2016-02 No 1mg 500 mg 1-06 tablet 00:00: 00 Vitamin D2 2016- No 1unit 50,000 unit 1-06 capsule 00:00: 00 Vitamin D2 2016- No 1unit 50,000 unit 0-27 capsule 00:00: 00 Vitamin D2 2016-02 No 1unit 50,000 unit 0-27 capsule 00:00: 00 prednisone 2016-02 No 2mg 20 mg 0-23 tablet 00:00: 00 prednisone 2016-02 No 1mg 20 mg 0-23 tablet 00:00: 00 lisinopril 2016-02 No 2mg 20 0-23 mg-hydrochl 00:00: orothiazide 00 12.5 mg tablet naproxen 2016-02 No 1mg 500 mg 0-23 tablet 00:00: 00 prednisone 2016- No 2mg 20 mg 0-23 tablet 00:00: 00 prednisone 2016- No 1mg 20 mg 0-23 tablet 00:00: 00 lisinopril 2016-02 No 2mg 20 0-23 mg-hydrochl 00:00: orothiazide 00 12.5 mg tablet naproxen 2016-02 No 1mg 500 mg 0-23 tablet 00:00: 00 lisinopril 2016-02 No 1mg 20 mg 0-14 tablet 00:00: 00 lisinopril 2016-02 No 1mg 20 mg 0-14 tablet 00:00: 00 naproxen 2016-02 No 1mg 500 mg 0-10 tablet 00:00: 00 naproxen 2016-02 No 1mg 500 mg 0-10 tablet 00:00: 00 amoxicillin 2016-0 No 1mg 500 mg 3-23 capsule 00:00: 00 amoxicillin 0 No 1mg 500 mg 3-23 capsule 00:00: 00 Immunizations Ordered Immunization Filled Immunization Date Status Commen ts Source Name Name TST-PPD intradermal 2017-01-02 Completed 00:00:00 TST-PPD intradermal 2017-01-02 Completed 00:00:00 Vital Signs Vital Name Observation Time Observation Value Comments Source Systolic blood 2021-10-01 17:11:00 124 mm[Hg] Univer [facility] Diastolic blood 2021-10-01 17:11:00 73 mm[Hg[facility] [place] Heart rate 2021-10-01 17:11:00 86 /min [facility] Body temperature 2021-10-01 17:11:00 36.22 Madhuri [facility] Respiratory rate 2021-10-01 17:11:00 18 /min [facility] Oxygen saturation in 2021-10-01 17:11:00 93 /min [facility] Arterial blood by [facility] Pulse oximetry Branch Body weight 2021-10-01 09:03:00 140.978 kg [facility] BMI 2021-10-01 09:03:00 56.85 kg/m2 [facility] Body height 2021-10-01 00:52:00 157.5 cm [facility] Systolic blood 2021-09-09 05:57:00 124 mm[Hg] Univer sity of pressure [place] [facility] Diastolic blood 2021-09-09 05:57:00 65 mm[Hg] Unive rsity of pressure [place] [facility] Heart rate 2021-09-09 05:57:00 89 /min [facility] [place] [facility] Respiratory rate 2021-09-09 05:57:00 20 /min Univ ersity [facility] [place] [facility] Oxygen saturation in 2021-09-09 05:57:00 95 /min University of Arterial blood by [place] Medi charles Pulse oximetry Branch Body temperature 2021-09-09 02:32:00 37.28 Madhuri [facility] [place] [facility] Body weight 2021-09-09 02:32:00 137.893 kg [facility] [place] [facility] BMI 2021-09-09 02:32:00 55.60 kg/m2 [facility] [place] [facility] Heart rate 2020-07-28 16:41:00 78 /min [facility] [place] [facility] Respiratory rate 2020-07-28 16:41:00 18 /min Univ ers[facility] [place] [facility] Oxygen saturation in 2020-07-28 16:41:00 90 /min University of Arterial blood by [facility] charles Pulse oximetry Branch Systolic blood 2020-07-28 16:38:00 129 mm[Hg] Univer sity of pressure [place] [facility] Diastolic blood 2020-07-28 16:38:00 69 mm[Hg] Unive rsity of pressure [place] [facility] Body temperature 2020-07-28 16:38:00 36.83 Madhuri [facility] [place] [facility] Body height 2020-07-27 10:06:00 157.5 cm [facility] [place] [facility] Body weight 2020-07-27 10:06:00 137.939 kg [facility] [place] [facility] BMI 2020-07-27 10:06:00 55.62 kg/m2 [facility] [place] [facility] Respiratory rate 2020-07-14 16:45:00 20 /min Univ ers[facility] [place] [facility] Oxygen saturation in 2020-07-14 16:45:00 100 /min University of Arterial blood by [facility] charles Pulse oximetry Branch Systolic blood 2020-07-14 16:10:00 140 mm[Hg] Univer sity of pressure [place] [facility] Diastolic blood 2020-07-14 16:10:00 88 mm[Hg] Unive rsity of [facility] Heart rate 2020-07-14 16:10:00 72 /min [facility] Body temperature 2020-07-14 16:10:00 36.17 [facility] 2020-07-14 08:35:00 135.489 kg [facility] BP Systolic 2021-09-23 11:25:00 BP Diastolic 2021-09-23 11:25:00 Weight Measured 2021-09-23 11:25:00 311.00 pounds Height Measured 2021-09-23 11:25:00 59.72 inches Body Temperature 2021-09-23 11:25:00 Heart Rate 2021-09-23 11:25:00 Respiratory Rate 2021-09-23 11:25:00 BP Systolic 2021-08-18 16:46:00 163 mm[Hg] BP Diastolic 2021-08-18 16:46:00 85 mm[Hg] Weight Measured 2021-08-18 16:46:00 311.80 pounds Height Measured 2021-08-18 16:46:00 59.72 inches Body Temperature 2021-08-18 16:46:00 97.90 degrees Heart Rate 2021-08-18 16:46:00 90.00 /min Respiratory Rate 2021-08-18 16:46:00 BP Systolic 2021-07-31 10:22:00 172 mm[Hg] BP Diastolic 2021-07-31 10:22:00 113 mm[Hg] Weight Measured 2021-07-31 10:22:00 311.60 pounds Height Measured 2021-07-31 10:22:00 59.72 inches Body Temperature 2021-07-31 10:22:00 98.00 degrees Heart Rate 2021-07-31 10:22:00 92.00 /min Respiratory Rate 2021-07-31 10:22:00 22.00 /min BP Systolic 2021-06-24 10:24:00 179 mm[Hg] BP Diastolic 2021-06-24 10:24:00 108 mm[Hg] Weight Measured 2021-06-24 10:24:00 301.00 pounds Height Measured 2021-06-24 10:24:00 59.72 inches Body Temperature 2021-06-24 10:24:00 98.20 degrees Heart Rate 2021-06-24 10:24:00 97.00 /min Respiratory Rate 2021-06-24 10:24:00 15.00 /min BP Systolic 2021-06-21 13:35:00 191 mm[Hg] BP Diastolic 2021-06-21 13:35:00 109 mm[Hg] Weight Measured 2021-06-21 13:35:00 310.40 pounds Height Measured 2021-06-21 13:35:00 59.72 inches Body Temperature 2021-06-21 13:35:00 98.10 degrees Heart Rate 2021-06-21 13:35:00 100.00 /min Respiratory Rate 2021-06-21 13:35:00 15.00 /min BP Systolic 2021-06-18 17:44:00 175 mm[Hg] BP Diastolic 2021-06-18 17:44:00 99 mm[Hg] Weight Measured 2021-06-18 17:44:00 306.80 pounds Height Measured 2021-06-18 17:44:00 59.72 inches Body Temperature 2021-06-18 17:44:00 97.90 degrees Heart Rate 2021-06-18 17:44:00 84.00 /min Respiratory Rate 2021-06-18 17:44:00 22.00 /min BP Systolic 2021-03-16 08:34:00 163 mm[Hg] BP Diastolic 2021-03-16 08:34:00 100 mm[Hg] Weight Measured 2021-03-16 08:34:00 999.99 pounds Height Measured 2021-03-16 08:34:00 59.72 inches Body Temperature 2021-03-16 08:34:00 97.70 degrees Heart Rate 2021-03-16 08:34:00 88.00 /min Respiratory Rate 2021-03-16 08:34:00 16.00 /min BP Systolic 2020-11-30 16:24:00 148 mm[Hg] BP Diastolic 2020-11-30 16:24:00 82 mm[Hg] Weight Measured 2020-11-30 16:24:00 316.00 pounds Height Measured 2020-11-30 16:24:00 59.72 inches Body Temperature 2020-11-30 16:24:00 98.60 degrees Heart Rate 2020-11-30 16:24:00 81.00 /min Respiratory Rate 2020-11-30 16:24:00 BP Systolic 2020-10-09 08:36:00 156 mm[Hg] BP Diastolic 2020-10-09 08:36:00 95 mm[Hg] Weight Measured 2020-10-09 08:36:00 320.60 pounds Height Measured 2020-10-09 08:36:00 59.72 inches Body Temperature 2020-10-09 08:36:00 98.40 degrees Heart Rate 2020-10-09 08:36:00 94.00 /min Respiratory Rate 2020-10-09 08:36:00 BP Systolic 2020-09-17 14:39:00 170 mm[Hg] BP Diastolic 2020-09-17 14:39:00 84 mm[Hg] Weight Measured 2020-09-17 14:39:00 316.00 pounds Height Measured 2020-09-17 14:39:00 59.72 inches Body Temperature 2020-09-17 14:39:00 98.20 degrees Heart Rate 2020-09-17 14:39:00 88.00 /min Respiratory Rate 2020-09-17 14:39:00 17.00 /min BP Systolic 2020-08-25 09:26:00 168 mm[Hg] BP Diastolic 2020-08-25 09:26:00 83 mm[Hg] Weight Measured 2020-08-25 09:26:00 305.00 pounds Height Measured 2020-08-25 09:26:00 59.72 inches Body Temperature 2020-08-25 09:26:00 98.40 degrees Heart Rate 2020-08-25 09:26:00 100.00 /min Respiratory Rate 2020-08-25 09:26:00 Procedures Procedure Date / Time Performing Clinician Source Performed POCT GLUCOSE (AUTOMATED) 2021-10-01 16:44:00 Mateusz Gallardo [facility] POCT GLUCOSE (AUTOMATED) 2021-10-01 12:29:00 Mateusz Gallardo [facility] D-DIMER 2021-10-01 09:41:00 Yasmine Jin [facility] PHOSPHORUS 2021-10-01 09:35:00 Mateusz Gallardo [facility] MAGNESIUM 2021-10-01 09:35:00 Mateusz Gallardo [facility] BASIC METABOLIC PANEL 2021-10-01 09:35:00 Mateusz Gallardo [facility] (NA, K, CL, CO2, GLUCOSE, Medica l Branch BUN, CREATININE, CA) CBC WITH DIFF 2021-10-01 09:35:00 Mateusz Gallardo [facility] POCT GLUCOSE (AUTOMATED) 2021-10-01 09:00:00 Mateusz Gallardo [facility] POCT GLUCOSE (AUTOMATED) 2021-10-01 02:34:00 Mateusz Gallardo [facility] ACUTE CARE ARTERIAL BLOOD 2021-09-30 22:39:00 [facility] X[facility] CHEST 1 VW 2021-09-30 21:13:57 Jeanna Warner [facility] COVID-19 (ID NOW RAPID 2021-09-30 21:01:00 Jeanna Warner [facility] TESTING) Medical [place] HB ECG ROUTINE & RHYTHM 2021-09-30 20:58:15 Jeanna Warner [facility] STRIP [facility] Branch TROPONIN I 2021-09-30 20:48:00 Jeanna Warner [facility] COMP. METABOLIC PANEL 2021-09-30 20:48:00 Jeanna Warner [facility] ([id number]) Medical Branch CBC WITH DIFF 2021-09-30 20:48:00 Jeanna Warner [facility] GLYCOSYLATED HEMOGLOBIN 2021-09-30 20:48:00 Mayte Addison [facility] (A1C) [facility] Branch N-TERMINAL PRO-BNP 2021-09-30 20:48:00 Jeanna Warner [facility] Medical [place] CONSENT/REFUSAL FOR 2021-09-30 20:16:40 Doctor Unassigned, [facility] DIAGNOSIS AND TREATMENT [place] [facility] [place] XR CHEST 1 VW 2021-09-09 03:28:06 Renata Acosta [facility] LIPASE 2021-09-09 02:40:00 Renata Acosta [facility] TROPONIN I 2021-09-09 02:40:00 Renata Acosta [facility] COMP. METABOLIC PANEL 2021-09-09 02:40:00 Renata Aocsta [facility] ([id number]) [facility] [place] CBC WITH DIFF 2021-09-09 02:40:00 Renata Acosta [facility] NOTICE OF PRIVACY 2021-09-09 02:24:29 Doctor Shirley, [facility] PRACTICES [facility] [place] CONSENT/REFUSAL FOR 2021-09-09 02:24:02 Doctor Shirley, [facility] DIAGNOSIS AND TREATMENT [facility] [place] [address] Ekg W/ At Least 12 2021-08-18 00:00:00 Leads W/ I r Ekg 2020-10-09 00:00:00 Ekg 2020-09-17 00:00:00 CT ANGIOGRAM CHEST 2020-07-27 15:16:47 Vitaliy Eason [facility] XR CHEST 1 VW 2020-07-27 06:14:17 Tamika Vieira [facility] COVID-19 (ID NOW RAPID 2020-07-27 06:10:00 Tamika Vieira [facility] TESTING) Medical Branch LAB ONLY COVID 2020-07-27 06:10:00 Tamika Vieira [facility] INTERPRETATION Medical Branch TROPONIN I 2020-07-27 06:06:00 Tamika Vieira [facility] HEPATIC FUNCTION PANEL 2020-07-27 06:06:00 Tamika Vieira [facility] ([id number]) (ALB,T.PRO,BILI Medical Branch T,BU/BC,ALT,AST,ALK PHOS) BASIC METABOLIC PANEL 2020-07-27 06:06:00 Tamika Vieira [facility] (NA, K, CL, CO2, GLUCOSE, Medica l Branch BUN, CREATININE, CA) CBC WITH DIFF 2020-07-27 06:06:00 Tamika Vieira [facility] NOTICE OF PRIVACY 2020-07-27 06:01:19 Doctor Unassigned, [facility] CONSENT[facility]REFUSAL FOR 2020-07-27 05:59:48 Doctor Unassigned, [facility] DIAGNOSIS AND TREATMENT [facility] POCT GLUCOSE (AUTOMATED) 2020-07-14 12:43:00 Miguel Mendoza [facility] POCT GLUCOSE (AUTOMATED) 2020-07-14 01:36:00 Miguel Mendoza [facility] COMP. METABOLIC PANEL 2020-07-12 09:39:00 Misael rajinder [facility] ([id number]) [facility] CBC WITH DIFF 2020-07-12 09:39:00 Mayte Addison [facility] CT THORAX WO CONTRAST 2020-07-11 18:13:55 Mayte Addison [facility] COMP. METABOLIC PANEL 2020-07-11 09:37:00 Misael rajinder [facility] ([id number]) [facility] N-TERMINAL PRO-BNP 2020-07-11 09:37:00 Misael rajinder [facility] FREE T3 2020-07-11 09:37:00 Mayte Addison [facility] SPUTUM CULTURE 2020-07-10 12:15:00 Misael rajinder [facility] PNEUMOCOCCAL ANTIGEN 2020-07-10 12:13:00 Mayte Addison [facility] SEDIMENTATION RATE 2020-07-10 09:29:00 Misael rajinder [facility] MAGNESIUM 2020-07-10 09:28:00 [facility] TROPONIN I 2020-07-10 09:28:00 [facility] COMP. METABOLIC PANEL 2020-07-10 09:28:00 Misael rajinder [facility] ([id number]) [facility] CBC WITH DIFF 2020-07-10 09:28:00 Carolynn Douglas [facility] N-TERMINAL PRO-BNP 2020-07-10 09:28:00 Carolynn Douglas [facility] MYCOPLASMA PNEUMONIAE 2020-07-09 22:49:00 Mayte Addison [facility] ANTIBODY, IGM [facility] Branch TRANSTHORACIC ECHO (TTE) 2020-07-09 20:36:58 Paresh Medina [facility] ADC,CLC OR LCC ONLY - 2020-07-09 19:51:00 Erika Falcon [facility] INFLUENZA A & B DIRECT [facility] ANTIGEN TROPONIN I 2020-07-09 19:34:00 Misael rajinder [facility] RESPIRATORY PANEL BY PCR 2020-07-09 19:30:00 Carolynn Douglas [facility] URINALYSIS 2020-07-09 10:50:00 [facility] LEGIONELLA URINARY 2020-07-09 10:50:00 Mayte Addison [facility] ANTIGEN TST [facility] URINE CULTURE 2020-07-09 10:50:00 Misael rajinder [facility] UREA NITROGEN, URINE 2020-07-09 10:50:00 Carolynn Douglas [facility] SODIUM, URINE RANDOM 2020-07-09 10:50:00 Misael rajinder [facility] PROTEIN CREAT RATIO URINE 2020-07-09 10:50:00 [facility]OS[facility] 2020-07-09 09:41:00 Misael rajinder [facility] CREATINE KINASE 2020-07-09 09:41:00 Misael rajinder [facility] TROPONIN I 2020-07-09 09:41:00 Misael rajinder [facility] FREE T4 2020-07-09 09:41:00 Mayte Addison [facility] THYROID STIMULATING 2020-07-09 09:41:00 Carolynn Douglas [facility] HORMONE [facility] Branch LIPID PANEL ([id number])(TOTAL 2020-07-09 09:41:00 Carolynn Douglas [facility] CHOLESTEROL, [facility] TRIGLYCERIDES, HDL) PROTHROMBIN TIME / INR 2020-07-09 09:41:00 Carolynn Douglas [facility] N-TERMINAL PRO-BNP 2020-07-09 09:41:00 Carolynn Douglas [facility] PROCALCITONIN 2020-07-09 09:41:00 Carolynn Douglas Roe o [facility] HB ECG ROUTINE & RHYTHM 2020-07-09 09:28:10 Carolynn Douglas [facility] STRIP [facility] MAGNESIUM 2020-07-09 06:49:00 Miguel Mendoza [facility] COMP. METABOLIC PANEL 2020-07-09 06:49:00 Miguel Mendoza [facility] ([id number]) [facility] BLOOD CULTURE SCREEN 2020-07-09 06:32:00 Miguel Mendoza [facility] BLOOD CULTURE SCREEN 2020-07-09 06:31:00 Miguel Mendoza [facility] CRITICAL CARE 2020-07-09 06:04:00 Miguel Mendoza [facility] XR CHEST 1 VW 2020-07-09 05:51:20 Miguel Mendoza [facility] CBC WITH DIFF 2020-07-09 05:51:00 Miguel Mendoza [facility] GLYCOSYLATED HEMOGLOBIN 2020-07-09 05:51:00 Carolynn Douglas [facility] (A1C) Medical Branch COVID-19 (ID NOW RAPID 2020-07-09 05:51:00 Miguel Mendoza [facility] TESTING) Medical Branch LAB ONLY COVID 2020-07-09 05:51:00 Miguel Mendoza [facility] INTERPRETATION [facility] [address] Ecg Routine Ecg 2016-05-05 00:00:00 W/least 12 Lds W/i r Plan of Care Planned Activity Planned Date Details Comments Source Goal Plan of Care Note [code = 24584-1] Goal Plan of Care Note [code = 13436-2] Goal Plan of Care Note [code = 42782-6] Goal Plan of Care Note [code = 65922-1] Goal Plan of Care Note [code = 49338-4] Goal Plan of Care Note [code = 87563-0] Goal Plan of Care Note [code = 14171-3] Goal Plan of Care Note [code = 08610-3] Goal Plan of Care Note [code = 06032-1] Goal Plan of Care Note [code = 69831-5] Goal Plan of Care Note [code = 25856-2] Goal Plan of Care Note [code = 24485-6] Goal Plan of Care Note [code = 66519-6] Goal Plan of Care Note [code = 98768-1] Goal Plan of Care Note [code = 64493-9] Goal Plan of Care Note [code = 83056-3] Goal Plan of Care Note [code = 15014-3] Goal Plan of Care Note [code = 72477-6] Goal Plan of Care Note [code = 51870-2] Goal Plan of Care Note [code = 96705-0] Goal Plan of Care Note [code = 03687-4] Goal Plan of Care Note [code = 21317-3] Goal Plan of Care Note [code = 06467-8] Goal Plan of Care Note [code = 71845-2] Goal Plan of Care Note [code = 36002-6] Goal Plan of Care Note [code = 37910-3] Goal Plan of Care Note [code = 48444-5] Goal Plan of Care Note [code = 00769-4] Goal Plan of Care Note [code = 68287-8] Goal Plan of Care Note [code = 20014-6] Goal Plan of Care Note [code = 26330-8] Goal Plan of Care Note [code = 32691-6] Goal Plan of Care Note [code = 61223-8] Goal Plan of Care Note [code = 20143-3] Goal Plan of Care Note [code = 06763-5] Goal Plan of Care Note [code = 80019-5] Goal Plan of Care Note [code = 22098-7] Goal Plan of Care Note [code = 60404-2] Goal Plan of Care Note [code = 04185-1] Goal Plan of Care Note [code = 55259-7] Goal Plan of Care Note [code = 23213-3] Goal Plan of Care Note [code = 30756-1] Goal Plan of Care Note [code = 27871-3] Goal Plan of Care Note [code = 95507-5] Goal Plan of Care Note [code = 69897-8] Goal Plan of Care Note [code = 67369-9] Goal Plan of Care Note [code = 31215-8] Goal Plan of Care Note [code = 00604-6] Goal Plan of Care Note [code = 73119-7] Goal Plan of Care Note [code = 72806-8] Goal Plan of Care Note [code = 97131-1] Goal Plan of Care Note [code = 08204-4] Goal Plan of Care Note [code = 11563-1] Goal Plan of Care Note [code = 15582-0] Encounters Start End Encounter Admission Attending Care Care Encounter Source Date/Time Date/Time Type Type Clinicians Facility Department ID 2021-12-14 2021-12-14 Outpatient [facility] [id number] 022 Tr 16:02:46 16:02:46 1101 F Jimmie 2021-09-30 2021-10-01 Outpatient X PAULINA [facility] [id number] Univers 15:27:00 16:00:00 MATEUSZ [facility] 2021-09-30 2021-10-01 Emergency Jeanna Warner [facility] 1.2.840.1 [id number] Univers 15:27:00 16:00:00 Mateusz Gallardo MAURICE 350.1.13.10 [facility] 4.2.7.2.686 [facility] [id number] [address] 2021-09-23 2021-09-23 Outpatient [id number] [id number] 00:00:00 00:00:00 Visit [id number] 5p9-1l43-w -tl27-97f [id number] 18e56c 2021-09-08 2021-09-09 Emergency X DAVE IAALETA ERT [id number] Univers 21:26:00 01:05:00 RENATA mina [facility] 2021-09-08 2021-09-09 Emergency Dave [facility] 1.2.840.114 [id number] Univers 21:26:00 01:05:00 Renata PERES 350.1.13.10 [place] [id number] [facility] 084 Branch 2021-08-18 2021-08-18 Outpatient [id number] 00:00:00 00:00:00 Visit o3ce-47d8 1bb-45a6-a -abd4-751 [id number] 2020-07-29 2020-07-29 Transition Karin Gilliam 1.2.840.114 [id number] Univers 00:00:00 00:00:00 of Care Magda Juniory 350.1.13.10 [place] [id number] [facility] 403 Branch 2020-07-27 2020-07-28 Hospital Tamika Vieira [facility] 1.2.84 0.114 [id number] Univers 00:57:00 14:59:00 [facility] 350.1.13.10 [place] [id number] [facility] 110 Branch (CLC) 2020-07-27 2020-07-27 Emergency X ISHA [facility] ERT [id number] Univers 00:57:00 00:57:00 TAMIKA mina [facility] 2020-07-16 2020-07-16 Transition Karin Gilliam 1.2.840.114 [id number] Univers 00:00:00 00:00:00 of Care Magda Killian 350.1.13.10 [place] [id number] [facility] 403 Branch 2020-07-09 2020-07-14 Inpatient X DAYANNA IAALETA GUILLE [id number] Univers 00:23:00 12:00:00 MIGUEL mina [facility] 2020-07-09 2020-07-14 [facility] Miguel Mendoza [facility] 1.2.840. 114 [id number] [facility] 00:23:00 12:00:00 Encounter Carolynn Douglas 350.1.13.10 [place] 4.2.7.2.686 [facility] [id number] [place] [address]661 Branch Results Test Description Test Time Test Comments Results Result Comments Source POCT GLUCOSE (AUTOMATED) 2021-10-01 16:55:39 Test Item Value Reference Range Interpretation Comme nts POCT GLU (test code = 1917626254) 221 mg/dL 70-110 H Lab Interpretation (test code = 74190-1) [facility]2021-10-01 12:39:20 Test Item Value Reference Range Interpretation Comments POCT GLU (test code = 8247630380) 185 mg/dL 70-110 H Lab Interpretation (test code = Abnormal 46289-7) [facility] [id number] 11:06:03 Test Item Value Reference Range Interpretation Comments MAGNESIUM (test code = 8851946076) 2.0 mg/dL 1.7-2.4 Lab Interpretation (test code = Normal 75544-1) [facility] (NA, K, CL, CO2, GLUCOSE, BUN, CREATININE, CA)2021-10-01 11:05:43 Test Item Value Reference Range Interpretation Comments NA (test code = 139 mmol/L 135-145 0441397445) K (test code = 4.5 mmol/L 3.5-5 3714068426) CL (test code = 100 mmol/L 98-108 4984023450) CO2 TOTAL (test code = 33 mmol/L 23-31 H 8394368831) AGAP (test code = 2-16 1556413625) BUN (test code = 11 mg/dL 7-23 7568197926) GLUCOSE (test code = 197 mg/dL 70-110 H 0565143829) CREATININE (test code = 0.42 mg/dL 0.5-1.04 L 3529239986) CALCIUM (test code = 8.8 mg/dL 8.6-10.6 0047071677) eGFR (test code = mL/min/1.73m2 4796452606) MARIPOSA (test code = MARIPOSA) Association of [...] tests). Lab Interpretation Abnormal (test code = 42784-3) [facility]and[facility] [id number] 11:05:23 Test Item Value Reference Range Interpretation Comments PHOSPHORUS (test code = 0391273038) 3.9 mg/dL 2.5-5 Lab Interpretation (test code = Normal 98041-9) [facility]-[id number] 11:00:23 Test Item Value Reference Interpretation Comments Range D-DIMER (test code = See_Comment H [Autom ated 3289861674) message] The system which generated this result transmitted reference range : <0.41 ?g/mL (FEU). The reference range was not used to interpret this result as normal/abnormal . MARIPOSA (test code = This test may be MARIPOSA) used in conjunction with a clinical pretest probability (PTP) assessment model to exclude venous thromboembolism (VTE) in patients suspected of deep venous thrombosis (DVT) and pulmonary embolism (PE) A D-Dimer value less than 0.50 ?g/ml (FEU) has a negative predicative value of 96 to 100% (95% CI)and 97 to 100% (95% CI) as an aid in the diagnosis of deep vein thrombosis (DVT) and pulmonary embolism when there is low or moderate pretest probability of PE or DVT. D-Dimer values are expressed in initial fibrinogen equivalent units (FEU)" The assay results should be used with other information, including the clinical context, in forming a diagnosis. Lab Interpretation Abnormal (test code = 13947-2) [facility] with [id number] 10:20:16 Test Item Value Reference Range Interpretation Comments WBC (test code = See_Comment [Automated 7164-2) message] The sy stem which generated this result transmitted reference range : 4.30 - 11.10 10*3/?L. The reference range was not used to interpret this result as normal/abnormal . RBC (test code = See_Comment [Automated 719-8) message] The sy stem which generated this result transmitted reference range : 3.93 - 5.25 10*6/?L. The reference range was not used to interpret this result as normal/abnormal . HGB (test code = 11.8 g/dL 11.6-15 718-7) HCT (test code = 39.3 % 35.7-45.2 4544-3) MCV (test code = 86.9 fL 80.6-95.5 787-2) MCH (test code = 26.1 pg 25.9-32.8 785-6) MCHC (test code = 30.0 g/dL 31.6-35.1 L 786-4) RDW-SD (test code = 50.0 fL 39-49.9 H 71572-5) RDW-CV (test code = 15.9 % 12-15.5 H 788-0) PLT (test code = See_Comment [Automated 697-3) message] The sy stem which generated this result transmitted reference range : 166 - 358 10*3/ ?L. The reference r palmira was not used to interpret this result as normal/abnormal . MPV (test code = 10.4 fL 9.5-12.9 58266-0) NRBC/100 WBC (test See_Comment [Automat ed code = 6360683407) message] The system which generated this result transmitted reference range : 0.0 - 10.0 /100 WBCs. The refer ence range was not u sed to interpret th is result as normal/abnormal . NRBC x10^3 (test code See_Comment [Auto mated = 8444972092) message] The s ystem which generated this result transmitted reference range : 10*3/?L. The reference range was not used to interpret this result as normal/abnormal . GRAN MAT (NEUT) % 86.5 % (test code = 770-8) IMM GRAN % (test code 1.80 % = 8287308419) LYMPH % (test code = 9.5 % 736-9) MONO % (test code = 1.9 % 5905-5) EOS % (test code = 0.1 % 713-8) BASO % (test code = 0.2 % 706-2) GRAN MAT x10^3(ANC) 8.33 10*3/uL 1.88-7.09 H (test code = 9817326200) IMM GRAN x10^3 (test 0.17 10*3/uL 0-0.06 H code = 0689581307) LYMPH x10^3 (test code 0.91 10*3/uL 1.32-3.29 L = 731-0) MONO x10^3 (test code 0.18 10*3/uL 0.33-0.92 L = 742-7) EOS x10^3 (test code = 0.03-0.39 L 711-2) BASO x10^3 (test code 0.01-0.07 = 704-7) Lab Interpretation Abnormal (test code = 08564-3) [facility] GLUCOSE (AUTOMATED)2021-10-01 09:03:23 Test Item Value Reference Range Interpretation Comments POCT GLU (test code = 5845802609) 180 mg/dL 70-110 H Lab Interpretation (test code = Abnormal 18369-5) [facility] GLUCOSE (AUTOMATED)2021-10-01 02:44:00 Test Item Value Reference Range Interpretation Comments POCT GLU (test code = 9403858876) 307 mg/dL 70-110 H Lab Interpretation (test code = Abnormal 52060-3) [facility] (A1C)2021-10-01 01:56:57 Test Item Value Reference Range Interpretation Comments HGB A1C (test code = 7.3 % 4-5.7 H 4548-4) MARIPOSA (test code = MARIPOSA) Reference RangesNormal: <5.7%Prediabetes: 5.7 - 6.4%Diabetes: > 6.5% Lab Interpretation (test Abnormal code = 03232-3) [facility] Ar[facility] Blood [facility].2021-09-30 22:42:07 Test Item Value Reference Range Interpretation Comments PH (test code = 2) 7.35-7.45 PCO2 (test code = See_Comment H [Automate d message] 1265729714) The system [employer] generated this result transmitted ref erence range: 35 - 45 mmHg. The reference r palmira was not used to interpret this result as normal/abnor mal. PO2 (test code = See_Comment [Automated message] 2311273288) The system [employer] generated this result transmitted ref erence range: 80 - 100 mmHg. The reference r palmira was not used to interpret this result as normal/abnor mal. HCO3 (test code = See_Comment H [Automate d message] 7891630517) The system [employer] generated this result transmitted ref erence range: 22 - 26 mEq/L. The reference r palmira was not used to interpret this result as normal/abnor mal. BE (test code = See_Comment [Automated message] 7978700849) The system [employer] generated this result transmitted ref erence range: -3.0 - 3 .0 mEq/L. The refe rence range was not u sed to interpret this result as normal/abnor mal. Lab Interpretation (test Abnormal code = 28476-2) [facility] [id number] 21:29:19 Test Item Value Reference Interpretation Comments Range TROPONIN I (test 0.001 ng/mL See_Comment [Automated code = 3298530625) message] The system which generated this result transmitted reference range : <=0.034. The reference range was not used to interpret this result as normal/abnormal . MARIPOSA (test code = Reference (Normal) MARIPOSA) Range (defined by the 99th percentile reference limit): <= 0.034 ng/mL Note: Cardiac troponin begins to rise 3-4 hours after the onset of ischemia. Repeat in 4-6 hours if the sample was drawn within 3-4 hours of the onset of the symptom and found normal. Diagnosis of myocardial injury is made with acute changes in cTn concentrations with at least one serial sample above the 99th percentile upper reference limit (URL), taken together with the patient's clinical presentation. Biotin has been reported to cause a negative bias, interpret results relative to patient's use of biotin. Lab Interpretation Normal (test code = 31197-2) [facility] [id number] 21:26:16 Test Item Value Reference Range Interpretation Comments NT-proBNP (test code 45 pg/mL See_Comment [Autom ated = 0628923332) message] The system which generated this result transmitted reference range : <=125. The reference range was not used to interpret this result as normal/abnormal . MARIPOSA (test code = MARIPOSA) Biotin has been reported to cause a negative bias, interpret results relative to patient's use of biotin. Lab Interpretation Normal (test code = 41470-7) [facility]OL[facility] PAN[facility] (39847)2021-09-30 21:18:56 Test Item Value Reference Range Interpretation Comments NA (test code = 139 mmol/L 135-145 9192806014) K (test code = 4.3 mmol/L 3.5-5 7356943889) CL (test code = 99 mmol/L 98-108 7765988408) CO2 TOTAL (test code = 31 mmol/L 23-31 6474289786) AGAP (test code = 2-16 7626674669) BUN (test code = 12 mg/dL 7-23 2234302021) GLUCOSE (test code = 140 mg/dL 70-110 H 3219379361) CREATININE (test code = 0.40 mg/dL 0.5-1.04 L 1802177881) TOTAL BILI (test code = 0.3 mg/dL 0.1-1.7 4471579781) CALCIUM (test code = 9.3 mg/dL 8.6-10.6 6297471808) T PROTEIN (test code = 7.6 g/dL 6.3-8.2 8447233398) ALBUMIN (test code = 4.5 g/dL 3.5-5 0093550238) ALK PHOS (test code = 115 U/L 34-122 0122292128) ALTv (test code = 24 U/L 5-35 1742-6) AST(SGOT) (test code = 26 U/L 13-40 3782752676) eGFR (test code = mL/min/1.73m2 3512754149) MARIPOSA (test code = MARIPOSA) Association of [...] tests). Lab Interpretation Abnormal (test code = 11755-8) [facility] WITH [id number] 21:08:31 Test Item Value Reference Range Interpretation Comments WBC (test code = See_Comment [Automated 5390-2) message] The sy stem which generated this [...] . HGB (test code = 12.7 g/dL 11.6-15 718-7) HCT (test code = 41.3 % 35.7-45.2 4544-3) MCV (test code = 86.8 fL 80.6-95.5 787-2) MCH (test code = 26.7 pg 25.9-32.8 785-6) MCHC (test code = 30.8 g/dL 31.6-35.1 L 786-4) RDW-SD (test code = 50.0 fL 39-49.9 H 80835-7) RDW-CV (test code = 16.0 % 12-15.5 H 788-0) PLT (test code = See_Comment [Automated 777-3) message] The sy stem which generated this result transmitted reference range : 166 - 358 10*3/ ?L. The reference r palmira was not used to interpret this result as normal/abnormal . MPV (test code = 10.3 fL 9.5-12.9 16573-3) NRBC/100 WBC (test See_Comment [Automat ed code = 3564186127) message] The system which generated this result transmitted reference range : 0.0 - 10.0 /100 WBCs. The refer ence range was not u sed to interpret th is result as normal/abnormal . NRBC x10^3 (test code See_Comment [Auto mated = 0866685511) message] The s ystem which generated this result transmitted reference range : 10*3/?L. The reference range was not used to interpret this result as normal/abnormal . GRAN MAT (NEUT) % 67.8 % (test code = 770-8) IMM GRAN % (test code 0.80 % = 9086753114) LYMPH % (test code = 19.8 % 736-9) MONO % (test code = 5.0 % 5905-5) EOS % (test code = 6.1 % 713-8) BASO % (test code = 0.5 % 706-2) GRAN MAT x10^3(ANC) 6.59 10*3/uL 1.88-7.09 (test code = 7824760235) IMM GRAN x10^3 (test 0.08 10*3/uL 0-0.06 H code = 5870814865) LYMPH x10^3 (test code 1.92 10*3/uL 1.32-3.29 = 731-0) MONO x10^3 (test code 0.49 10*3/uL 0.33-0.92 = 742-7) EOS x10^3 (test code = 0.59 10*3/uL 0.03-0.39 H 711-2) BASO x10^3 (test code 0.05 10*3/uL 0.01-0.07 = 704-7) Lab Interpretation Abnormal (test code = 91055-2) [facility]-[id number] 05:08:21 Test Item Value Reference Range Interpretation Comments NT-proBNP <50 PG/ML SEE BELOW If NT-ProBNP i s less than 300 (test code = PG/ML, heart fa ilure is unlikely 22271) for allages. Age............ .....Heart Failure Likely <50 Years.......... .>=450 PG/ML 50-75 Years.... .....>=900 PG/ML > 75 Years..... .....>=1800 PG/ML Methodology: Ro pascale Lewis Electrochemil[employer] inescense Immunoassay UNL ESS OTHERWISE INDICATED, ALL TESTING PERFORMED ATCLINPerspecSys PATH [employer], [address] [place] [address], [place] [address] BUTTER MAKER: Anai NICHOLE [id number] CAP ACCREDITATION N O. [id number] 00:00:00 Test Item Value Reference Range Interpretation Comments NT-proBNP (test code = 84365) <50 PG/ML [id number] 00:00:00 Test Item Value Reference Range Interpretation Comments NT-proBNP (test code = 37224) <50 PG/ML [id number] 00:00:00 Test Item Value Reference Range Interpretation Comments NT-proBNP (test code = 49098) <50 PG/ML VITAMIN D, 25 [id number] 05:02:19 Test Item Value Reference Range Interpretation Comments VITAMIN D, 25 OH 13 NG/ML SEE BELOW L NOTE: 25-H YDROXYVITAMIN D (test code = 4958) ASSAY INC LUDES 25-HYDROXYVITAM IN D2 AND D3. METHODOLOGY IS CHEMILUMINESCEN T IMMUNOASSAY. INTERPRETIVE RA NGES PEDIATRIC (<17 YEARS) . . . . . . . . . . . NG/ML 20-100ADULT: IN SUFFICIENT . . . . . . . . . . . . . . NG/ML <20 SUBOP TIMAL . . . . . . . . . . . . . . . NG/ML 20-29 OPT IMAL . . . . . . . . . . . . . . . . . NG/ML 30-100 UN LESS OTHERWISE INDIC ATED, ALL TESTING PERFORM ED ATCLINICAL PATH [facility], [facility] [address] [place] [address] LABORATORY DIRE CTOR: Philip NICHOLE. CLIA NUMBER [id number] CAP ACCREDITATION N O. [id number] VITAMIN D, 25 [id number] 00:00:00 Test Item Value Reference Range Interpretation Comments VITAMIN D, 25 OH (test code = 4958) 13 NG/ML VITAMIN D, 25 [id number] 00:00:00 Test Item Value Reference Range Interpretation Comments VITAMIN D, 25 OH (test code = 4958) 13 NG/ML VITAMIN D, 25 [id number] 00:00:00 Test Item Value Reference Range Interpretation Comments VITAMIN D, 25 OH (test code = 4958) 13 NG/ML TSH, THIRD [id number] 02:31:01 Test Item Value Reference Range Interpretation Comments TSH, THIRD GENERATION (test code 0.564 UIU/ML 0.400-4.100 = 2821) [id number] 00:00:00 Test Item Value Reference Range Interpretation Comments TSH, THIRD GENERATION (test code 0.564 UIU/ML = 2821) [id number] 00:00:00 Test Item Value Reference Range Interpretation Comments TSH, THIRD GENERATION (test code 0.564 UIU/ML = 2821) [id number] 00:00:00 Test Item Value Reference Range Interpretation Comments TSH, THIRD GENERATION (test code 0.564 UIU/ML = 2821) [id number] 00:00:00 Test Item Value Reference Range Interpretation Comments TSH, THIRD GENERATION (test code 0.564 UIU/ML = 2821) [id number] 00:00:00 Test Item Value Reference Range Interpretation Comments TSH, THIRD GENERATION (test code 0.564 UIU/ML = 2821) LIPID [id number] 23:49:04 Test Item Value Reference Range Interpretation Comments CHOLESTEROL (test 176 MG/DL <200 code = 2210) TRIGLYCERIDES (test 120 MG/DL <150 code = 2232) HDL CHOLESTEROL (test 48 MG/DL >39 code = 2220) CALC LDL CHOL (test 106 MG/DL <100 H NOTE: C ALCULATED LDL code = 2237) IS BASED ON OPAL-MARROQUIN METHOD WHICHINCLUDES ADJUSTABLE TRIGLYCERIDE:VL DL CHOLESTEROL RAT IO.THIS FACTOR VARIES B Y MEASURED TRIGLY CERIDE AND NON-HDLCHOL ESTEROL CONCENTRATIONS WITH INCREASED CALCU LATED LDL SEENIN HIGH ER TRIGLYCERIDE OR LOWER NON-HDL SPECIME NS. FOR MOREINFORMATION , SEE CLIENT ANNOUNCE MENT AT [email or web address] RISK RATIO LDL/HDL 2.21 RATIO <3.22 (test code = 2238) COMPREHENSIVE METABOLIC [id number] 23:49:04 Test Item Value Reference Range Interpretation Comments GLUCOSE (test code = 98 MG/DL 70-99 2216) BUN (test code = 6 MG/DL 08-02) CREATININE (test 0.40 MG/DL 0.60-1.30 L code = 2214) eGFR (2020 CKD-EPI) 126 >60 (test code = 47887) ML/MIN/1.73 CALC BUN/CREAT (test 15 RATIO 6-28 code = 2235) SODIUM (test code = 140 MEQ/L 048-891 7678) POTASSIUM (test code 4.1 MEQ/L 3.5-5.4 = 2227) CHLORIDE (test code 99 MEQ/L 95-107 = 2215) CARBON DIOXIDE (test 26 MEQ/L 19-31 code = 220) CALCIUM (test code = 9.2 MG/DL 8.5-10.5 2208) PROTEIN, TOTAL (test 7.4 G/DL 6.1-8.3 code = 222) ALBUMIN (test code = 4.3 G/DL 3.5-5.2 2200) CALC GLOBULIN (test 3.1 G/DL 1.9-3.7 code = 2240) CALC A/G RATIO (test 1.4 RATIO 1.0-2.6 code = 2234) BILIRUBIN, TOTAL 0.3 MG/DL See_Comment [Automated message] (test code = 2206) The syste m which generated this result transmit romero reference range : <=1.2. The refe rence range was not u sed to interpret th is result as normal/abnormal . ALKALINE PHOSPHATASE 118 U/L 40-113 H (test code = 2203) AST (test code = 14 U/L 9-40 2217) ALT (test code = 15 U/L 5-40 2218) HEMOGLOBIN [id number] 04:29:07 Test Item Value Reference Range Interpretation Comments HEMOGLOBIN A1c (test 7.5 % 4.2-5.6 H AMERIC AN DIABETES code = 65254) ASSOCIATION IDELINES FOR HGB A1C: PREDIABETES/INC REASED RISK . . . . . . . 5.7 -6.4% DIAGNOSIS OF DI ABETES . . . . . . . . . >=6 .5% WITH CONFIRMATION OR APPROPRIATE SYMPTOMS NOTE: ASSAY MAY BE AFFECTED BY HEMOGLOBINOPATH IES (SICKLE CELL ANEMIA, S- C DISEASE, OTHERS) OR AYAN FICIALLY LOWERED BY DECR EASED RED CELL SURVIVAL ( HEMOLYTIC ANEMIAS, BLOOD LOSS, ETC.). CONSIDER ALTERN ATE TESTING OR LABORATORY C ONSULTATION. LIPID [id number] 00:00:00 Test Item Value Reference Range Interpretation Comments CHOLESTEROL (test code = 2210) 176 MG/DL TRIGLYCERIDES (test code = 2232) 120 MG/DL HDL CHOLESTEROL (test code = 2220) 48 MG/DL CALC LDL CHOL (test code = 2237) 106 MG/DL RISK RATIO LDL/HDL (test code = 2.21 RATIO 2237) LIPID [id number] 00:00:00 Test Item Value Reference Range Interpretation Comments CHOLESTEROL (test code = 2210) 176 MG/DL TRIGLYCERIDES (test code = 2232) 120 MG/DL HDL CHOLESTEROL (test code = 2220) 48 MG/DL CALC LDL CHOL (test code = 2237) 106 MG/DL RISK RATIO LDL/HDL (test code = 2.21 RATIO 2238) HEMOGLOBIN [id number] 00:00:00 Test Item Value Reference Range Interpretation Comments HEMOGLOBIN A1c (test code = 96864) 7.5 % HEMOGLOBIN [id number] 00:00:00 Test Item Value Reference Range Interpretation Comments HEMOGLOBIN A1c (test code = 57700) 7.5 % HEMOGLOBIN [id number] 00:00:00 Test Item Value Reference Range Interpretation Comments HEMOGLOBIN A1c (test code = 31506) 7.5 % COMPREHENSIVE METABOLIC [id number] 00:00:00 Test Item Value Reference Range Interpretation Comments GLUCOSE (test code = 2217) 98 MG/DL BUN (test code = 2208) 6 MG/DL CREATININE (test code = 2214) 0.40 MG/DL eGFR (2020 CKD-EPI) (test 126 ML/MIN/1.73 code = 08829) CALC BUN/CREAT (test code = 15 RATIO 2235) SODIUM (test code = 2231) 140 MEQ/L POTASSIUM (test code = 2228) 4.1 MEQ/L CHLORIDE (test code = 2215) 99 MEQ/L CARBON DIOXIDE (test code = 26 MEQ/L 2205) CALCIUM (test code = 2209) 9.2 MG/DL PROTEIN, TOTAL (test code = 7.4 G/DL 2228) ALBUMIN (test code = 2201) 4.3 G/DL CALC GLOBULIN (test code = 3.1 G/DL 0) CALC A/G RATIO (test code = 1.4 RATIO 2234) BILIRUBIN, TOTAL (test code = 0.3 MG/DL 2206) ALKALINE PHOSPHATASE (test 118 U/L code = 2204) AST (test code = 2218) 14 U/L ALT (test code = 2219) 15 U/L COMPREHENSIVE METABOLIC [id number] 00:00:00 Test Item Value Reference Range Interpretation Comments GLUCOSE (test code = 2217) 98 MG/DL BUN (test code = 2208) 6 MG/DL CREATININE (test code = 2214) 0.40 MG/DL eGFR (2020 CKD-EPI) (test 126 ML/MIN/1.73 code = 79619) CALC BUN/CREAT (test code = 15 RATIO 2235) SODIUM (test code = 2231) 140 MEQ/L POTASSIUM (test code = 2228) 4.1 MEQ/L CHLORIDE (test code = 2215) 99 MEQ/L CARBON DIOXIDE (test code = 26 MEQ/L 2205) CALCIUM (test code = 2209) 9.2 MG/DL PROTEIN, TOTAL (test code = 7.4 G/DL 2228) ALBUMIN (test code = 220) 4.3 G/DL CALC GLOBULIN (test code = 3.1 G/DL 2239) CALC A/G RATIO (test code = 1.4 RATIO 2233) BILIRUBIN, TOTAL (test code = 0.3 MG/DL 2206) ALKALINE PHOSPHATASE (test 118 U/L code = 2204) AST (test code = 2218) 14 U/L ALT (test code = 2219) 15 U/L LIPID [id number] 00:00:00 Test Item Value Reference Range Interpretation Comments CHOLESTEROL (test code = 2210) 176 MG/DL TRIGLYCERIDES (test code = 2232) 120 MG/DL HDL CHOLESTEROL (test code = 2220) 48 MG/DL CALC LDL CHOL (test code = 2237) 106 MG/DL RISK RATIO LDL/HDL (test code = 2.21 RATIO 2238) HEMOGLOBIN [id number] 00:00:00 Test Item Value Reference Range Interpretation Comments HEMOGLOBIN A1c (test code = 58101) 7.5 % HEMOGLOBIN [id number] 00:00:00 Test Item Value Reference Range Interpretation Comments HEMOGLOBIN A1c (test code = 01086) 7.5 % COMPREHENSIVE METABOLIC [id number] 00:00:00 Test Item Value Reference Range Interpretation Comments GLUCOSE (test code = 2217) 98 MG/DL BUN (test code = 2208) 6 MG/DL CREATININE (test code = 2214) 0.40 MG/DL eGFR (2020 CKD-EPI) (test 126 ML/MIN/1.73 code = 33494) CALC BUN/CREAT (test code = 15 RATIO 2235) SODIUM (test code = 2231) 140 MEQ/L POTASSIUM (test code = 2228) 4.1 MEQ/L CHLORIDE (test code = 2215) 99 MEQ/L CARBON DIOXIDE (test code = 26 MEQ/L 2206) CALCIUM (test code = 2209) 9.2 MG/DL PROTEIN, TOTAL (test code = 7.4 G/DL 2229) ALBUMIN (test code = 2201) 4.3 G/DL CALC GLOBULIN (test code = 3.1 G/DL 2240) CALC A/G RATIO (test code = 1.4 RATIO 2234) BILIRUBIN, TOTAL (test code = 0.3 MG/DL 220) ALKALINE PHOSPHATASE (test 118 U/L code = 2204) AST (test code = 2218) 14 U/L ALT (test code = 2219) 15 U/L LAB ONLY COVID [id number] 18:13:05COVID DMT InterpretationInterpretation/Recommendations: Molecular NAAT Tests for Active [...] COVID-19 testing the patient has had at [facility], including molecular NAAT testing (more commonly known as PCR testing and Rapid ID Now testing) and antibody testing. It does not take into account any testingthat a patient has had outside of the [facility] medical record. [facility] LABORATORY SERVICESCOVID [id number] Rapid ID NOW (no units) ? ? Date ? Value ? 07/27/2020 ? Not Detected ? ? ? 07/09/2020 ? Not Detected ? [facility] [id number] 16:35:58CT SCAN OF THE CHEST WITH CONTRAST PULMONARY EMBOLISM PROTOCOL HISTORY: Chest pain and shortness of breath. TECHNIQUE: CT scan of the chest is performed following intravenousadministration of 100 mL ofIsovue-370 using pulmonary embolism protocol.Sagittal coronal and axial MIP reconstruction is performed. COMPARISON: 07/11/2020 Radiation Dose: DLP of 530 mGy-cm. FINDINGS: Contrast opacification of thepulmonary arteries is suboptimal,however there is no evidence of a large central PE to the level of p roximalsegmental branches. Pulmonary artery is normal in caliber. Heart size is normal. No pericardial effusion is seen. There is no evidenceof right heart strain. Thoracic aorta is normal in size. Thethyroid gland and the lower neck is normal. [...] Results Inft User - 07/27/2020 11:37 AM CDTFormatting of this note might be different from the orig inal.CT SCAN OF THE CHEST WITH CONTRAST PULMONARY EMBOLISM PROTOCOLHISTORY: Chest pain and shortnessof breath.TECHNIQUE: CT scan of the chest is performed following intravenousadministration of 100 mLof Isovue-370 using pulmonary embolism protocol.Sagittal coronal and axial MIP reconstruction is perf ormed.COMPARISON: 07/11/2020adiation Dose: DLP of 530 mGy-cm. FINDINGS: Contrast opacification of the pulmonary arteries is suboptimal,however there is no evidence of a large central PE to the level ofproximalsegmental branches. Pulmonary artery is normal in caliber.Heart size is normal. No pericardial effusion is seen. There is no evidenceof right heart strain. Thoracic aorta is normal in size.The thyroid gland and the lower neck is normal. A few nonspecific lymphnodes are seen in the mediastinum,not enlarged by CT criteria.The central airway is [...] pulmonary edema orsmall airway disease should be considered.[facility]andMarkel [id number] 06:49:36 Test Item Value Reference Range Interpretation Comments TROPONIN I (test 0.004 ng/mL See_Comment [Automated code = 1811775111) message] The system which generated this result [...] ? Lab Interpretation Normal (test code = 01066-0) [facility] Met[facility] (NA, K, CL, CO2, GLUCOSE, BUN, CREATININE, CA)2020-07-27 06:39:54 Test Item Value Reference Range Interpretation Comments NA (test code = 138 mmol/L 135-145 9838590438) K (test code = 4.2 mmol/L 3.5-5.0 4562783741) CL (test code = 100 mmol/L 98-108 2109970035) CO2 TOTAL (test code = 31 mmol/L 23-31 5276231958) AGAP (test code = 2-16 8918241035) BUN (test code = 18 mg/dL 7-23 2234125321) GLUCOSE (test code = 162 mg/dL 70-110 H 1248473420) CREATININE (test code = 0.57 mg/dL 0.50-1.04 5599470071) CALCIUM (test code = 9.3 mg/dL 8.6-10.6 4398460462) eGFR (test code = mL/min/1.73m2 4868685653) MARIPOSA (test code = MARIPOSA) Association of [...] tests). Lab Interpretation Abnormal (test code = 92221-5) [facility]andHepatic Function Panel (ALB, T.PRO, BILI T, BU/BC, ALT, AST, ALK PHOS)2020-07-27 06:39:34 Test Item Value Reference Range Interpretation Comments TOTAL BILI (test code = 9550111277) 0.3 mg/dL 0.1-1.1 BILI UNCON (test code = 9695406241) 0.1 mg/dL 0.1-1.1 BILI CONJ (test code = 9381926334) 0.0 mg/dL 0.0-0.3 T PROTEIN (test code = 2072246507) 8.1 g/dL 6.3-8.2 ALBUMIN (test code = 6866886136) 4.3 g/dL 3.5-5.0 ALK PHOS (test code = 8625876511) 114 U/L 34-122 ALTv (test code = 1742-6) 22 U/L 5-35 AST(SGOT) (test code = 6700260871) 23 U/L 13-40 Lab Interpretation (test code = Normal 01270-7) [facility]and[facility]OVID[facility] (ID NOW RAPID TESTING)2020-07-27 06:39:33 Test Item Value Reference Range Interpretation Comments SARS-CoV-2 Rapid ID NOW Not Detected Not Detected (test code = 15633-0) MARIPOSA (test code = MARIPOSA) ID NOW COVID-19 Assay is an isothermal nucleic acid amplification test intended for the qualitative detection of nucleic acid from SARS-CoV-2 viral RNA in nasopharyngeal (GAMING HOST) specimens. It is used under Emergency Use [...] indicated. Lab Interpretation Normal (test code = 22917-8) [facility] 1 [id number] 06:38:34 No acute cardiopulmonary disease. RL: [id number]: [id number] END OF REPORT ORDERING PHYSICIAN: ISHA LOERA HISTORY: ?sob . Shortness of breath. TECHNIQUE: ?Frontal view of the chest. COMPARISON: ?None available. FINDINGS: ? The cardiomediastinalcontours are unremarkable. The lungs are withoutconfluent airspace opacity, mass, or effusion. The osseous structures areunremarkable. [place]amb, Radiant Results Inft User - 07/27/2020 1:39 AM CDTFormattingof this note might be different from the original.ORDERING PHYSICIAN: ISHA HERNANDEZHISTORY: sob . Shortness of breath.TECHNIQUE: Frontal view of the chest.COMPARISON: None available.FINDINGS: The cardiomediastinal contours are unremarkable. The lungs are withoutconfluent airspace opacity, mass, or effusion. The osseous structures areunremarkable. IMPRESSIONNo acute cardiopulmonary disease.RL: [id number]: [id number] OF [facility] with [id number] 06:24:36 Test Item Value Reference Range Interpretation [...] RDW-SD (test code = 49.0 fL 39.0-49.9 18733-5) RDW-CV (test code = 15.2 % 12.0-15.5 788-0) PLT (test code = See_Comment [Automated 777-3) message] The sy stem which generated this result transmitted reference range : 166 - 358 10*3/ ?L. The reference r palmira was not used to interpret this result as normal/abnormal . MPV (test code = 10.7 fL 9.5-12.9 15095-2) NRBC/100 WBC (test See_Comment [Automat ed code = 9769534723) message] The system which generated this result transmitted reference range : 0.0 - 10.0 /100 WBCs. The refer ence range was not u sed to interpret th is result as normal/abnormal . NRBC x10^3 (test code <0.01 See_Comment [Auto mated = 8948001785) message] The s ystem which generated this result transmitted reference range : 10*3/?L. The reference range was not used to interpret this result as normal/abnormal . GRAN MAT (NEUT) % 67.2 % (test code = 770-8) IMM GRAN % (test code 0.60 % = 4553441007) LYMPH % (test code = 21.7 % 736-9) MONO % (test code = 3.3 % 5905-5) EOS % (test code = 6.6 % 713-8) BASO % (test code = 0.6 % 706-2) GRAN MAT x10^3(ANC) 7.05 10*3/uL 1.88-7.09 (test code = 5609461046) IMM GRAN x10^3 (test 0.06 10*3/uL 0.00-0.06 code = 6284408217) LYMPH x10^3 (test code 2.28 10*3/uL 1.32-3.29 = 731-0) MONO x10^3 (test code 0.35 10*3/uL 0.33-0.92 = 742-7) EOS x10^3 (test code = 0.69 10*3/uL 0.03-0.39 H 711-2) BASO x10^3 (test code 0.06 10*3/uL 0.01-0.07 = 704-7) Lab Interpretation Abnormal (test code = 51625-4) [facility] ([facility]OMATED)2020-07-14 13:01:17 Test Item Value Reference Range Interpretation Comments POCT GLU (test code = 2984562889) 107 mg/dL 70-110 Lab Interpretation (test code = Normal 88175-0) [facility]andBLOOD CULTURE [id number] 07:01:06 Test Item Value Reference Range Interpretation Comments Blood Culture-Aerobic No organisms No growth Previo us (test code = 25537-5) isolated prelim inary verified result was Culture [...] Culture-Anaerobic isolated preliminar y (test code = 44460-8) verifi ed result was Culture In Progress on 07/09/2020 at 05 01 CDTPrevious preliminary verified result was No growth a t 24 hours on 07/10/2020 at 01 CDTPrevious preliminary verified result was No growth a t 48 hours on 07/11/2020 at 01 CDTPrevious preliminary verified result was No growth a t 72 hours on 07/12/2020 at 02 01 CDT Lab Interpretation Normal (test code = 74608-4) [facility]andBL[facility] CULT[facility] [id number] 07:01:05 Test Item Value Reference Range Interpretation Comments Blood Culture-Aerobic No organisms No growth Previo us (test code = 81500-8) isolated prelim inary verified result was Culture [...] Culture-Anaerobic isolated preliminar y (test code = 00758-7) verifi ed result was Culture In Progress on 07/09/2020 at 05 CDTPrevious preliminary verified result was No growth a t 24 hours on 07/10/2020 at 03 16 CDTPrevious preliminary verified result was No growth a t 48 hours on 07/11/2020 at 02 CDTPrevious preliminary verified result was No growth a t 72 hours on 07/12/2020 at 01 CDT Lab Interpretation Normal (test code = 08183-3) [facility]2020-07-14 02:02:19 Test Item Value Reference Range Interpretation Comments POCT GLU (test code = 3566290362) 281 mg/dL 70-110 H Lab Interpretation (test code = Abnormal 33475-0) [facility] LevellandMYCOPLASMA PNEUMONIAE ANTIBODY, [id number] 22:06:07 Test Item Value Reference Range Interpretation [...] an 12 months post-infection. Performed By: ARTURO luciano[address] [place] [address] [id number] aboratory Director: Lisbet Odom MD [Aut omated message] The sy stem which generated this result transmit romero reference range : <=0.76. The reference r palmira was not used to int erpret this result as normal/abnormal . [facility]ellandSPUTUM [id number] 16:48:41 Test Item Value Reference Range Interpretation Comments SPUTUM CULTURE 2+ Respiratory santhosh: (test code = 622-1) Commensal upper respiratory microorganisms only. Gram stain (test Few Epithelial cells code = 664-3) present MARIPOSA (test code = Bacterial pathogens MARIPOSA) associated with lower respiratory infections were not identified, which include Pseudomonas aeruginosa and Staphylococcus aureus (MRSA or MSSA). [facility]. METABOLIC PANEL (88516)2020-07-12 11:23:13 Test Item Value Reference Range Interpretation Comments NA (test code = 137 mmol/L 135-145 1411980630) K (test code = 4.9 mmol/L 3.5-5.0 6311427655) CL (test code = 96 mmol/L 98-108 L 8305834635) CO2 TOTAL (test code = 33 mmol/L 23-31 H 3116126586) AGAP (test code = 2-16 7784538042) BUN (test code = 13 mg/dL 7-23 4388781313) GLUCOSE (test code = 172 mg/dL 70-110 H 4729362896) CREATININE (test code = 0.40 mg/dL 0.50-1.04 L 6519004700) TOTAL BILI (test code = 0.5 mg/dL 0.1-1.2 1322210790) CALCIUM (test code = 9.4 mg/dL 8.6-10.6 3229616722) T PROTEIN (test code = 7.8 g/dL 6.3-8.2 4300328053) ALBUMIN (test code = 4.2 g/dL 3.5-5.0 9677596094) ALK PHOS (test code = 97 U/L 34-122 3642363096) ALTv (test code = 27 U/L 5-35 1742-6) AST(SGOT) (test code = 22 U/L 13-40 1739374814) eGFR (test code = mL/min/1.73m2 5165224393) MARIPOSA (test code = MARIPOSA) Association of [...] tests). Lab Interpretation Abnormal (test code = 34783-9) [facility] WITH [id number] 11:03:13 Test Item Value Reference Range Interpretation Comments WBC (test code = See_Comment [Automated 1760-2) message] The sy stem which generated this result transmitted reference range : 4.30 - 11.10 10*3/?L. The reference range was not used to interpret this result as normal/abnormal . RBC (test code = See_Comment [Automated 069-8) message] The sy stem which generated this [...] RDW-SD (test code = 47.8 fL 39.0-49.9 66949-9) RDW-CV (test code = 14.9 % 12.0-15.5 788-0) PLT (test code = See_Comment [Automated 777-3) message] The sy stem which generated this result transmitted reference range : 166 - 358 10*3/ ?L. The reference r palmira was not used to interpret this result as normal/abnormal . MPV (test code = 10.8 fL 9.5-12.9 08722-1) NRBC/100 WBC (test See_Comment [Automat ed code = 9587030448) message] The system which generated this result transmitted reference range : 0.0 - 10.0 /100 WBCs. The refer ence range was not u sed to interpret th is result as normal/abnormal . NRBC x10^3 (test code <0.01 See_Comment [Auto mated = 1309942908) message] The s ystem which generated this result transmitted reference range : 10*3/?L. The reference range was not used to interpret this result as normal/abnormal . GRAN MAT (NEUT) % 87.7 % (test code = 770-8) IMM GRAN % (test code 1.60 % = 2267170965) LYMPH % (test code = 9.0 % 736-9) MONO % (test code = 1.4 % 5905-5) EOS % (test code = 0.1 % 713-8) BASO % (test code = 0.2 % 706-2) GRAN MAT x10^3(ANC) 8.92 10*3/uL 1.88-7.09 H (test code = 2553392363) IMM GRAN x10^3 (test 0.16 10*3/uL 0.00-0.06 H code = 5742010086) LYMPH x10^3 (test code 0.92 10*3/uL 1.32-3.29 L = 731-0) MONO x10^3 (test code 0.14 10*3/uL 0.33-0.92 L = 742-7) EOS x10^3 (test code = <0.03 0.03-0.39 L 711-2) BASO x10^3 (test code <0.03 0.01-0.07 = 704-7) Lab Interpretation Abnormal (test code = 38796-5) [facility]andCT THORAX WO [id number] 22:18:13 Patchy groundglass opacities in the bilateral lungs with more confluentconsolidative opacities in the right lower lobe, consistent with multifocalatypical pneumonia. No pleural effusion or abscess. RL: 4131AFC: 23699 End of report RING PHYSICIAN: MAYTE ADDISON [...] MAYTE ADDISONHISTORY: Neck, effusion, or abscess is suspectedCOMPARISON: None availableTECHNIQUE: CT of the chest without IV [...] trachea and bronchi are patent to thesegmental level.The visualized portion of the upper abdomen is normal. Osseous structuresare normal.IMPRESSIONPatchy groundglass opacities in the bilateral lungs with more confluentconsolidative opacities in the right lower lobe, consistent with multifocalatypical pneumonia. No pleural effusion or abscess.RL: 4131AFC: 57107Amk of report [facility] [id number] 21:45:45 Test Item Value Reference Range Interpretation Comments FREE T4 (test code = See_Comment [Autom ated message] 3775575608) The system [employer] generated this result transmitted ref erence range: 0.78 - 2 .20 ng/dL:. The ref erence range was not u sed to interpret this result as normal/abnor mal. Lab Interpretation (test Normal code = 82433-6) [facility] [id number] 21:44:29 Test Item Value Reference Range Interpretation Comments FREE T3 (test code = 7454622760) 3.01 pg/mL 2.77-5.27 Lab Interpretation (test code = Normal 07861-6) [facility]andN-TERMINAL [id number] 10:51:09 Test Item Value Reference Range Interpretation Comments NT-proBNP (test code 38 pg/mL See_Comment [Autom ated = 8884187879) message] The system which generated this result transmitted reference range : <=125. The reference range was not used to interpret this result as normal/abnormal . MARIPOSA (test code = MARIPOSA) Biotin has been reported to cause a negative bias, interpret results relative to patient's use of biotin. Lab Interpretation Normal (test code = 63904-0) [facility]. METABOLIC PANEL (49696)2020-07-11 10:42:50 Test Item Value Reference Range Interpretation Comments NA (test code = 138 mmol/L 135-145 7907748973) K (test code = 4.5 mmol/L 3.5-5.0 6078240692) CL (test code = 101 mmol/L 98-108 7692281521) CO2 TOTAL (test code = 31 mmol/L 23-31 7826686588) AGAP (test code = 2-16 2913296454) BUN (test code = 15 mg/dL 7-23 5296501875) GLUCOSE (test code = 100 mg/dL 70-110 6316287797) CREATININE (test code = 0.46 mg/dL 0.50-1.04 L 9376671650) TOTAL BILI (test code = 0.5 mg/dL 0.1-1.9 2090160487) CALCIUM (test code = 8.9 mg/dL 8.6-10.6 3154489630) T PROTEIN (test code = 7.1 g/dL 6.3-8.2 2441878720) ALBUMIN (test code = 3.9 g/dL 3.5-5.0 5524190766) ALK PHOS (test code = 80 U/L 34-122 0345467487) ALTv (test code = 19 U/L 5-35 1742-6) AST(SGOT) (test code = 32 U/L 13-40 7056224099) eGFR (test code = mL/min/1.73m2 2284565999) MARIPOSA (test code = MARIPOSA) Association of [...] tests). Lab Interpretation Abnormal (test code = 73499-3) [facility]andPNEUMOCOCCAL [id number] 18:45:00 Test Item Value Reference Range Interpretation Comments S. pneumoniae antigen (test code = Negative Negative 3104195119) Lab Interpretation (test code = Normal 47350-6) [facility]andURINE [id number] 13:39:03 Test Item Value Reference Range Interpretation Comments URINE CULTURE (test No aerobic growth (< code = 630-4) 1000 CFU/mL) [facility]ellandSEDIMENTATION [id number] 11:16:54 Test Item Value Reference Range Interpretation Comments ESR (test code = See_Comment H [Automated message] 4728612024) The system [employer] generated this result transmitted ref erence range: 0 - 20 m m/HR. The reference r palmira was not used to interpret this result as normal/abnor mal. Lab Interpretation (test Abnormal code = 37054-0) [facility] [id number] 10:13:54 Test Item Value Reference Range Interpretation Comments TROPONIN I (test 0.001 ng/mL See_Comment [Automated code = 2694018034) message] The system which generated this result [...] ? Lab Interpretation Normal (test code = 58878-1) [facility] [id number] 10:11:17 Test Item Value Reference Range Interpretation Comments NT-proBNP (test code 76 pg/mL See_Comment [Autom ated = 0918764935) message] The system which generated this result transmitted reference range : <=125. The reference range was not used to interpret this result as normal/abnormal . MARIPOSA (test code = MARIPOSA) Biotin has been reported to cause a negative bias, interpret results relative to patient's use of biotin. Lab Interpretation Normal (test code = 49004-0) [facility]. METABOLIC PANEL (51706)2020-07-10 10:02:17 Test Item Value Reference Range Interpretation Comments NA (test code = 137 mmol/L 135-145 1214735202) K (test code = 4.7 mmol/L 3.5-5.0 2702260760) CL (test code = 103 mmol/L 98-108 6410420785) CO2 TOTAL (test code 30 mmol/L 23-31 = 2089067597) AGAP (test code = 2-16 0273312991) BUN (test code = 17 mg/dL 7-23 5515299370) GLUCOSE (test code = 107 mg/dL 70-110 1689984122) CREATININE (test code 0.51 mg/dL 0.50-1.04 = 3870329934) TOTAL BILI (test code 0.4 mg/dL 0.1-1.1 = 4629905919) CALCIUM (test code = 9.0 mg/dL 8.6-10.6 6518700991) T PROTEIN (test code 6.9 g/dL 6.3-8.2 = 8867096300) ALBUMIN (test code = 3.8 g/dL 3.5-5.0 6223177841) ALK PHOS (test code = 79 U/L 34-122 5531046846) ALTv (test code = 16 U/L 5-35 1742-6) AST(SGOT) (test code 20 U/L 13-40 = 6295580836) eGFR (test code = mL/min/1.73m2 7782763405) MARIPOSA (test code = MARIPOSA) Association of [...] or urine or abnormalities in imaging tests). [facility]2021-[facility]-28 10:02:17 Test Item Value Reference Range Interpretation Comments MAGNESIUM (test code = 1240356307) 2.1 mg/dL 1.7-2.4 Lab Interpretation (test code = Normal 51858-9) [facility] WITH [id number] 09:51:36 Test Item Value Reference Range Interpretation Comments WBC (test code = See_Comment H [Automated 2190-2) message] The sy stem which generated this result transmitted reference range : 4.30 - 11.10 10*3/?L. The reference range was not used to interpret this result as normal/abnormal . RBC (test code = See_Comment [Automated 509-8) message] The sy stem which generated this [...] RDW-SD (test code = 49.4 fL 39.0-49.9 90286-5) RDW-CV (test code = 15.3 % 12.0-15.5 788-0) PLT (test code = See_Comment [Automated 777-3) message] The sy stem which generated this result transmitted reference range : 166 - 358 10*3/ ?L. The reference r palmira was not used to interpret this result as normal/abnormal . MPV (test code = 10.8 fL 9.5-12.9 23120-7) NRBC/100 WBC (test See_Comment [Automat ed code = 6878492003) message] The system which generated this result transmitted reference range : 0.0 - 10.0 /100 WBCs. The refer ence range was not u sed to interpret th is result as normal/abnormal . NRBC x10^3 (test code <0.01 See_Comment [Auto mated = 1552271342) message] The s ystem which generated this result transmitted reference range : 10*3/?L. The reference range was not used to interpret this result as normal/abnormal . GRAN MAT (NEUT) % 71.0 % (test code = 770-8) IMM GRAN % (test code 0.50 % = 6433138585) LYMPH % (test code = 18.6 % 736-9) MONO % (test code = 5.8 % 5905-5) EOS % (test code = 3.7 % 713-8) BASO % (test code = 0.4 % 706-2) GRAN MAT x10^3(ANC) 8.61 10*3/uL 1.88-7.09 H (test code = 7253646994) IMM GRAN x10^3 (test 0.06 10*3/uL 0.00-0.06 code = 6517022287) LYMPH x10^3 (test code 2.26 10*3/uL 1.32-3.29 = 731-0) MONO x10^3 (test code 0.71 10*3/uL 0.33-0.92 = 742-7) EOS x10^3 (test code = 0.45 10*3/uL 0.03-0.39 H 711-2) BASO x10^3 (test code 0.05 10*3/uL 0.01-0.07 = 704-7) Lab Interpretation Abnormal (test code = 31552-6) [facility]and[facility]PIRAT[facility] PANEL BY [id number] 07:41:20 Test Item Value Reference Range Interpretation Comments Adenovirus (test code = Negative Negative 49334-0) Coronavirus HKU1 (test Negative Negative code = 09385-3) Coronavirus NL63 (test Negative Negative code = 57447-3) Coronavirus 229E (test Negative Negative code = 65388-9) Coronavirus OC43 (test Negative Negative code = 13922-6) Human Metapneumovirus Negative Negative (test code = 37671-0) Human Negative Negative Rhinovirus/Enterovirus (test code = 72384-5) Influenza A (test code = Negative Negative 11130-0) Influenza B (test code = Negative Negative 99825-7) Parainfluenza Virus 1 Negative Negative (test code = 49252-0) Parainfluenza Virus 2 Negative Negative (test code = 62941-9) Parainfluenza Virus 3 Negative Negative (test code = 91582-4) Parainfluenza Virus 4 Negative Negative (test code = 55255-9) Respiratory Syncytial Negative Negative Virus (test code = 22690-3) Bordetella parapertussis Negative Negative (test code = 79219-5) Bordetella pertussis Negative Negative (test code = 68816-5) Chlamydia pneumoniae Negative Negative (test code = 05568-9) Mycoplasma pneumoniae Negative Negative (test code = 36979-9) MARIPOSA (test code = MARIPOSA) Negative:A negative result does not rule-out infection. ?This assay does not test for all potential infectious agents. ? Positive:A positive test result does not necessarily indicate the presence of viable organism. ? Lab Interpretation (test Normal code = 45382-0) [facility] COVID [id number] 06:21:45COVID DMT InterpretationInterpretation/Recommendations: Molecular NAAT Tests for [...] COVID-19 testing the patient has had at [facility], including molecular NAAT testing (more commonly known as PCR testing and Rapid ID Now testing) and antibody testing. It does not take into account any testingthat a patient has had outside of the [facility] medical record. [facility] LABORATORY SERVICESCOVID [id number]-1 Rapid ID NOW (no units) ? ? Date ? Value ? 07/09/2020 ? Not Detected ? [facility] [id number] 23:26:39 Test Item Value Reference Range Interpretation Comments Legionella Urinary Negative Negative Antigen (test code = 7298737371) MARIPOSA (test code = MARIPOSA) Negative for [...] test. Lab Interpretation (test Normal code = 46456-2) [facility]andTR[facility] [id number] 21:06:36 Test Item Value Reference Range Interpretation Comments TROPONIN I (test 0.002 ng/mL See_Comment [Automated code = 6323069397) message] The system which generated this result [...] ? Lab Interpretation Normal (test code = 97164-0) [facility]andADC,CLC OR [facility] ONLY - INFLUENZA A & B DIRECT [id number] 20:54:43 Test Item Value Reference Range Interpretation Comments Influenza A (test code = 21201-9) Negative Negative Influenza B (test code = 64917-3) Negative Negative Lab Interpretation (test code = Normal 27483-6) [facility]andPROCALCITONIN2021-05-27 17:02:04 Test Item Value Reference Interpretation Comments Range Procalcitonin (test <0.02 See_Comment [Automa romero code = 8852192359) message] The system which generated this result [...] lung abscess/empyema. For further information please refer to:[email or web address] Lab Interpretation Normal (test code = 51515-3) [facility]andUREA NITROGEN, URINE [id number] 16:26:49 Test Item Value Reference Range Interpretation Comments UREA N UR (test code = 3525640274) 546 mg/dL [facility]andPROTEIN CREAT RATIO URINE [id number] 13:05:11 Test Item Value Reference Range Interpretation Comments T. PROT U (test code = 2888-6) 22 mg/dL CREAT U (test code = 3695304045) 28.1 mg/dL Protein/Creatinine Ratio Urine 0.0-2.0 (test code = 0638685209) [facility]andSODIUM, URINE [id number] 13:01:14 Test Item Value Reference Range Interpretation Comments NA URINE (test code = 8586094671) 26 mmol/L [facility]andXR CHEST 1 [id number] 12:40:02 Right lower lung well-demarcated consolidation concerning for lobarpneumonia or atelectasis. Preliminary Report Dictated by Resident: Sushil Almaguer MD., have reviewed this study and agree withthe above report.EXAM: XR CHEST 1 VW COMPARISON: None HISTORY: Sob, hypoxia FINDINGS: Lines/Tubes: None. Lungs: A band of opacification is seen in the right lower lung. No pleuralef fusion or pneumothorax is identified. Heart/Mediastinum: The cardiomediastinal silhouette is normal in size. Bones: No acute osseous abnormality is seen. [facility], Radiant Results Inft User - 07/09/2020 7:41 AM CDT EXAM: XR CHEST 1 VWCOMPARISON: NoneHISTORY: Sob, hypoxia FINDINGS:Lines/Tubes: None.Lungs: A band of opacification is seen in the right lower lung. No pleuraleffusion or pneumothorax is identified.Heart/Mediastinum: The cardiomediastinal silhouette is normal in size.Bones: No acute osseous abnormality is seen.IMPRESSIONRight lower lung well-demarcated consolidation concerning for lobarpneumonia or atelectasis.Preliminary Report Dictated by Resident: Evaristo Solis, Sushil Whitman MD., have reviewed this study and agree withthe above report. [facility]andTHYROID STIMULATING [id number] 12:35:31 Test Item Value Reference Range Interpretation Comments TSH (test code = See_Comment L [Automated message] 9660977197) The system [employer] generated this result transmitted ref erence range: 0.45 - 4 .70 mIU/L. The refe rence range was not u sed to interpret this result as normal/abnor mal. Lab Interpretation (test Abnormal code = 71289-9) [facility]and[facility]-TERMINAL [id number] 12:14:52 Test Item Value Reference Range Interpretation Comments NT-proBNP (test code 46 pg/mL See_Comment [Autom ated = 5275950091) message] The system which generated this result transmitted reference range : <=125. The reference range was not used to interpret this result as normal/abnormal . MARIPOSA (test code = MARIPOSA) Biotin has been reported to cause a negative bias, interpret results relative to patient's use of biotin. Lab Interpretation Normal (test code = 09162-5) [facility]andURINALYSIS2021-05-27 12:10:35 Test Item Value Reference Range Interpretation Comments APPEARANCE (test code = Clear Clear 9218139917) COLOR (test code = Straw Yellow A 1847186634) PH (test code = 4.8-8.0 6341252838) SP GRAVITY (test code = 1.003-1.030 4029906968) GLU U QUAL (test code = Normal Normal 7134930536) BLOOD (test code = 2+ Negative A 6071727872) KETONES (test code = Negative Negative 5608405067) PROTEIN (test code = Negative Negative 2887-8) UROBILIN (test code = Normal Normal 4265995531) BILIRUBIN (test code = Negative Negative 5834233495) NITRITE (test code = Negative Negative 6606543811) LEUK CLIFFORD (test code = Negative Negative 0309837397) RBC/HPF (test code = See_Comment H [Autom ated message] 4337832030) The system [employer] generated this result transmitted ref erence range: 0 - 3 HP F. The reference range was not used to int erpret this result as normal/abnormal . WBC/HPF (test code = See_Comment [Autom ated message] 5516435111) The system [employer] generated this result transmitted ref erence range: 0 - 5 HP F. The reference range was not used to int erpret this result as normal/abnormal . BACTERIA (test code = Negative Negative 1421808162) SQ EPITH (test code = HPF 5782299425) Lab Interpretation (test Abnormal code = 95198-3) [facility]ellandLIPID PANEL (45299)(TOTAL CHOLESTEROL, TRIGLYCERIDES, HDL)2020-07-09 12:04:52 Test Item Value Reference Range Interpretation Comments CHOL (test code = 183 mg/dL 120-200 3642952703) HDL (test code = 61 mg/dL >50 7669870145) HDLC RATIO (test code = See_Comment [Au tomated message] 7012597233) The system [employer] generated this result transmit romero reference range : <=4.5. The refe rence range was not u sed to interpret th is result as normal/abnormal . TRIG (test code = 68 mg/dL 30-170 3450502576) LDL CHOL (test code = 108 mg/dL See_Comment [Auto mated message] 75723-4) The system [employer] generated this result transmit romero reference range : <=160. The refe rence range was not u sed to interpret th is result as normal/abnormal . VLDL (test code = 14 mg/dL 5-60 0900614492) Lab Interpretation (test Normal code = 44740-2) [facility]andPHOSPHORUS2021-05-27 12:04:52 Test Item Value Reference Range Interpretation Comments PHOSPHORUS (test code = 9151423938) 3.7 mg/dL 2.5-5.0 Lab Interpretation (test code = Normal 21361-4) [facility]andCREATINE [id number] 12:04:11 Test Item Value Reference Range Interpretation Comments CK (test code = 0296325074) 58 U/L 33-194 Lab Interpretation (test code = Normal 50169-6) [facility]andGLYCOSYLATED HEMOGLOBIN (A1C)2020-07-09 11:48:12 Test Item Value Reference Range Interpretation Comments HGB A1C (test code = 6.2 % 4.0-5.7 H 4548-4) MARIPOSA (test code = MARIPOSA) Reference RangesNormal: <5.7%Prediabetes: 5.7 - 6.4%Diabetes: > 6.5% Lab Interpretation (test Abnormal code = 97897-0) [facility]andTROPONIN [id number] 11:47:11 Test Item Value Reference Range Interpretation Comments TROPONIN I (test 0.000 ng/mL See_Comment [Automated code = 1317120345) message] The system which generated this result [...] ? Lab Interpretation Normal (test code = 11102-2) [facility]andPROTHROMBIN TIME / [id number] 11:40:31 Test Item Value Reference Range Interpretation Comments PROTIME PATIENT (test See_Comment [Auto mated message] code = 5964-2) The system [employer] generated this result transmitted ref erence range: 12.0 - 1 4.7 Seconds. The re ference range was not u sed to interpret this result as normal/abnor mal. INR (test code = 6301-6) Nor mal INR <1.1; Warfarin Therap eutic range 2.0 to 3. 0 or 2.5 to 3.5, dep ending upon the indica tions. Lab Interpretation (test Normal code = 62862-0) [facility]andMAGNESIUM2021-05-27 07:28:47 Test Item Value Reference Range Interpretation Comments MAGNESIUM (test code = 2357242753) 2.5 mg/dL 1.7-2.4 H Lab Interpretation (test code = Abnormal 13561-4) [facility]andCOMP. METABOLIC PANEL (26614)2020-07-09 07:28:27 Test Item Value Reference Range Interpretation Comments NA (test code = 135 mmol/L 135-145 6472543347) K (test code = 4.6 mmol/L 3.5-5.0 9208198921) CL (test code = 99 mmol/L 98-108 8999745489) CO2 TOTAL (test code = 26 mmol/L 23-31 1229443981) AGAP (test code = 2-16 4193670582) BUN (test code = 17 mg/dL 7-23 0405010664) GLUCOSE (test code = 190 mg/dL 70-110 H 1637926726) CREATININE (test code = 0.42 mg/dL 0.50-1.04 L 8121904294) TOTAL BILI (test code = 0.4 mg/dL 0.1-1.2 2689670390) CALCIUM (test code = 9.5 mg/dL 8.6-10.6 5502386907) T PROTEIN (test code = 8.8 g/dL 6.3-8.2 H 5675036313) ALBUMIN (test code = 4.5 g/dL 3.5-5.0 8580047473) ALK PHOS (test code = 126 U/L 34-122 H 0897188944) ALTv (test code = 20 U/L 5-35 1742-6) AST(SGOT) (test code = 29 U/L 13-40 3966012680) eGFR (test code = mL/min/1.73m2 1477033880) MARIPOSA (test code = MARIPOSA) Association of [...] tests). Lab Interpretation Abnormal (test code = 89246-3) [facility]ID [facility]2020-07-09 06:30:42 Test Item Value Reference Range Interpretation Comments SARS-CoV-2 Rapid ID NOW Not Detected Not Detected (test code = 99525-0) MARIPOSA (test code = MARIPOSA) ID NOW COVID-19 Assay is an isothermal nucleic acid amplification test intended for the qualitative detection of nucleic acid from SARS-CoV-2 viral RNA in nasopharyngeal (GAMING HOST) specimens. It is used under Emergency Use [...] indicated. Lab Interpretation Normal (test code = 66488-5) [facility] WITH [id number] 06:24:59 Test Item Value Reference Range Interpretation Comments WBC (test code = See_Comment H [Automated 8220-2) message] The system which generated this result [...] RDW-SD (test code = 46.9 fL 39.0-49.9 72013-7) RDW-CV (test code = 14.6 % 12.0-15.5 788-0) PLT (test code = See_Comment [Automated 777-3) message] The system which generated this result transmit romero reference range : 166 - 358 10*3/ ?L. The reference range was not u sed to interpret th is result as normal/abnormal . MPV (test code = 10.9 fL 9.5-12.9 71580-9) NRBC/100 WBC (test See_Comment [Automat ed code = 7196568615) message] The system which generated this result transmit romero reference range : 0.0 - 10.0 /100 WBCs. The reference range was not used to interpret this result as normal/abnormal . NRBC x10^3 (test code See_Comment [Auto mated = 1076745541) message] The system which generated this result transmit romero reference range : 10*3/?L. The reference range was not used to interpret this result as normal/abnormal . GRAN MAT (NEUT) % 85.9 % (test code = 770-8) IMM GRAN % (test code 1.50 % = 4502481466) LYMPH % (test code = 10.9 % 736-9) MONO % (test code = 1.3 % 5905-5) EOS % (test code = 0.1 % 713-8) BASO % (test code = 0.3 % 706-2) GRAN MAT x10^3(ANC) 12.67 10*3/uL 1.88-7.09 H (test code = 8606570278) IMM GRAN x10^3 (test 0.22 10*3/uL 0.00-0.06 H code = 6313648967) LYMPH x10^3 (test code 1.61 10*3/uL 1.32-3.29 = 731-0) MONO x10^3 (test code 0.19 10*3/uL 0.33-0.92 L = 742-7) EOS x10^3 (test code = <0.03 0.03-0.39 L 711-2) BASO x10^3 (test code 0.05 10*3/uL 0.01-0.07 = 704-7) Lab Interpretation Abnormal (test code = 88458-4) [facility]andCritical [id number] 06:04:00Miguel Mendoza MD ? ? 07/09/2020 ?5:55 AMCritical CarePerformed by: Miguel Mendoza MDAuthorizedby: Miguel Mendoza MD Critical care provider statement: ?Critical care time (minutes): ?60 ?Critical care start time: ?07/08/2020 11:59 PM ?Critical care end time: ?07/09/2020 1:03 AM ?Critical care time was exclusive of: ?Separately billable procedures and treating other patients and teaching time ?Critical care was necessary to treat or prevent imminent or life- threatening deterioration of the following conditions: ?Circulatory failure, respiratory failure, shock, KNOCKDOWN MAN failure or compromise and dehydration ?Critical care [...] patient or surrogate and blood draw for specimensUnMethod[facility] [id number] 00:00:00 Test Item Value Reference Range Interpretation Comments TROPONIN T (test code = 4017) <0.010 UG/L CBC W/AUTO [id number] 00:00:00 Test Item Value Reference Range Interpretation Comments WBC (test code = 1001) 7.5 K/UL RBC (test code = 1002) 4.66 M/UL HEMOGLOBIN (test code = 1003) 12.9 G/DL HEMATOCRIT (test code = 1004) 38.9 % MCV (test code = 1005) 83.5 fL MCH (test code = 1006) 27.7 PG MCHC (test code = 1007) 33.2 G/DL RDW (test code = 1038) 14.4 % NEUTROPHILS (test code = 1008) 68.4 % LYMPHOCYTES (test code = 1010) 21.7 % MONOCYTES (test code = 1011) 4.7 % EOSINOPHILS (test code = 1012) 4.4 % BASOPHILS (test code = 1013) 0.5 % IMMATURE GRANULOCYTES (test 0.3 % code = 1036) NUCLEATED RBCS (test code = 0.0 /100WBC'S 1065) PLATELET COUNT (test code = 218 K/UL 1015) ABSOLUTE NEUTROPHILS (test code 5.15 K/UL = 1066) ABSOLUTE LYMPHOCYTES (test code 1.63 K/UL = 1067) ABSOLUTE MONOCYTES (test code = 0.35 K/UL 1068) ABSOLUTE EOSINOPHILS (test code 0.33 K/UL = 1040) ABSOLUTE BASOPHILS (test code = 0.04 K/UL 1069) ABS IMMATURE GRANULOCYTES (test 0.02 K/UL code = 1020) ABS NUCLEATED RBCS (test code = 0.00 K/UL 29769) CBC W/AUTO [id number] 00:00:00 Test Item Value Reference Range Interpretation Comments WBC (test code = 1001) 7.5 K/UL RBC (test code = 1002) 4.66 M/UL HEMOGLOBIN (test code = 1003) 12.9 G/DL HEMATOCRIT (test code = 1004) 38.9 % MCV (test code = 1005) 83.5 fL MCH (test code = 1006) 27.7 PG MCHC (test code = 1007) 33.2 G/DL RDW (test code = 1038) 14.4 % NEUTROPHILS (test code = 1008) 68.4 % LYMPHOCYTES (test code = 1010) 21.7 % MONOCYTES (test code = 1011) 4.7 % EOSINOPHILS (test code = 1012) 4.4 % BASOPHILS (test code = 1013) 0.5 % IMMATURE GRANULOCYTES (test 0.3 % code = 1036) NUCLEATED RBCS (test code = 0.0 /100WBC'S 1065) PLATELET COUNT (test code = 218 K/UL 1015) ABSOLUTE NEUTROPHILS (test code 5.15 K/UL = 1066) ABSOLUTE LYMPHOCYTES (test code 1.63 K/UL = 1067) ABSOLUTE MONOCYTES (test code = 0.35 K/UL 1068) ABSOLUTE EOSINOPHILS (test code 0.33 K/UL = 1040) ABSOLUTE BASOPHILS (test code = 0.04 K/UL 1069) ABS IMMATURE GRANULOCYTES (test 0.02 K/UL code = 1020) ABS NUCLEATED RBCS (test code = 0.00 K/UL 38437) CBC W/AUTO [id number] 00:00:00 Test Item Value Reference Range Interpretation Comments WBC (test code = 1001) 7.5 K/UL RBC (test code = 1002) 4.66 M/UL HEMOGLOBIN (test code = 1003) 12.9 G/DL HEMATOCRIT (test code = 1004) 38.9 % MCV (test code = 1005) 83.5 fL MCH (test code = 1006) 27.7 PG MCHC (test code = 1007) 33.2 G/DL RDW (test code = 1038) 14.4 % NEUTROPHILS (test code = 1008) 68.4 % LYMPHOCYTES (test code = 1010) 21.7 % MONOCYTES (test code = 1011) 4.7 % EOSINOPHILS (test code = 1012) 4.4 % BASOPHILS (test code = 1013) 0.5 % IMMATURE GRANULOCYTES (test 0.3 % code = 1036) NUCLEATED RBCS (test code = 0.0 /100WBC'S 1065) PLATELET COUNT (test code = 218 K/UL 1015) ABSOLUTE NEUTROPHILS (test code 5.15 K/UL = 1066) ABSOLUTE LYMPHOCYTES (test code 1.63 K/UL = 1067) ABSOLUTE MONOCYTES (test code = 0.35 K/UL 1068) ABSOLUTE EOSINOPHILS (test code 0.33 K/UL = 1040) ABSOLUTE BASOPHILS (test code = 0.04 K/UL 1069) ABS IMMATURE GRANULOCYTES (test 0.02 K/UL code = 1020) ABS NUCLEATED RBCS (test code = 0.00 K/UL 19540) HEMOGLOBIN [id number] 00:00:00 Test Item Value Reference Range Interpretation Comments HEMOGLOBIN A1c (test code = 59094) 6.2 % HEMOGLOBIN [id number] 00:00:00 Test Item Value Reference Range Interpretation Comments HEMOGLOBIN A1c (test code = 90451) 6.2 % HEMOGLOBIN [id number] 00:00:00 Test Item Value Reference Range Interpretation Comments HEMOGLOBIN A1c (test code = 71740) 6.2 % COMPREHENSIVE METABOLIC [id number] 00:00:00 Test Item Value Reference Range Interpretation Comments GLUCOSE (test code = 2217) 101 MG/DL BUN (test code = 2208) 12 MG/DL CREATININE (test code = 2214) 0.45 MG/DL eGFR AMER. (test code 143 ML/MIN/1.73 = 97638) eGFR NON- AMER. (test 124 ML/MIN/1.73 code = 32045) CALC BUN/CREAT (test code = 27 RATIO 2235) SODIUM (test code = 2231) 143 MEQ/L POTASSIUM (test code = 2228) 4.4 MEQ/L CHLORIDE (test code = 2215) 105 MEQ/L CARBON DIOXIDE (test code = 27 MEQ/L 220) CALCIUM (test code = 2209) 9.4 MG/DL PROTEIN, TOTAL (test code = 7.7 G/DL 2228) ALBUMIN (test code = 2201) 4.1 G/DL CALC GLOBULIN (test code = 3.6 G/DL 2240) CALC A/G RATIO (test code = 1.1 RATIO 2234) BILIRUBIN, TOTAL (test code = 0.3 MG/DL 2206) ALKALINE PHOSPHATASE (test 102 U/L code = 2204) AST (test code = 2218) 15 U/L ALT (test code = 2219) 17 U/L COMPREHENSIVE METABOLIC [id number] 00:00:00 Test Item Value Reference Range Interpretation Comments GLUCOSE (test code = 2217) 101 MG/DL BUN (test code = 2208) 12 MG/DL CREATININE (test code = 2214) 0.45 MG/DL eGFR AMER. (test code 143 ML/MIN/1.73 = 12761) eGFR NON- AMER. (test 124 ML/MIN/1.73 code = 84785) CALC BUN/CREAT (test code = 27 RATIO 2235) SODIUM (test code = 2231) 143 MEQ/L POTASSIUM (test code = 2228) 4.4 MEQ/L CHLORIDE (test code = 2215) 105 MEQ/L CARBON DIOXIDE (test code = 27 MEQ/L 2206) CALCIUM (test code = 2209) 9.4 MG/DL PROTEIN, TOTAL (test code = 7.7 G/DL 2228) ALBUMIN (test code = 2201) 4.1 G/DL CALC GLOBULIN (test code = 3.6 G/DL 2240) CALC A/G RATIO (test code = 1.1 RATIO 2234) BILIRUBIN, TOTAL (test code = 0.3 MG/DL 2206) ALKALINE PHOSPHATASE (test 102 U/L code = 2204) AST (test code = 2218) 15 U/L ALT (test code = 2219) 17 U/L TROPONIN [id number] 00:00:00 Test Item Value Reference Range Interpretation Comments TROPONIN T (test code = 4017) <0.010 UG/L CBC W/AUTO [id number] 00:00:00 Test Item Value Reference Range Interpretation Comments WBC (test code = 1001) 7.5 K/UL RBC (test code = 1002) 4.66 M/UL HEMOGLOBIN (test code = 1003) 12.9 G/DL HEMATOCRIT (test code = 1004) 38.9 % MCV (test code = 1005) 83.5 fL MCH (test code = 1006) 27.7 PG MCHC (test code = 1007) 33.2 G/DL RDW (test code = 1038) 14.4 % NEUTROPHILS (test code = 1008) 68.4 % LYMPHOCYTES (test code = 1010) 21.7 % MONOCYTES (test code = 1011) 4.7 % EOSINOPHILS (test code = 1012) 4.4 % BASOPHILS (test code = 1013) 0.5 % IMMATURE GRANULOCYTES (test 0.3 % code = 1036) NUCLEATED RBCS (test code = 0.0 /100WBC'S 1065) PLATELET COUNT (test code = 218 K/UL 1015) ABSOLUTE NEUTROPHILS (test code 5.15 K/UL = 1066) ABSOLUTE LYMPHOCYTES (test code 1.63 K/UL = 1067) ABSOLUTE MONOCYTES (test code = 0.35 K/UL 1068) ABSOLUTE EOSINOPHILS (test code 0.33 K/UL = 1040) ABSOLUTE BASOPHILS (test code = 0.04 K/UL 1069) ABS IMMATURE GRANULOCYTES (test 0.02 K/UL code = 1020) ABS NUCLEATED RBCS (test code = 0.00 K/UL 88398) CBC W/AUTO [id number] 00:00:00 Test Item Value Reference Range Interpretation Comments WBC (test code = 1001) 7.5 K/UL RBC (test code = 1002) 4.66 M/UL HEMOGLOBIN (test code = 1003) 12.9 G/DL HEMATOCRIT (test code = 1004) 38.9 % MCV (test code = 1005) 83.5 fL MCH (test code = 1006) 27.7 PG MCHC (test code = 1007) 33.2 G/DL RDW (test code = 1038) 14.4 % NEUTROPHILS (test code = 1008) 68.4 % LYMPHOCYTES (test code = 1010) 21.7 % MONOCYTES (test code = 1011) 4.7 % EOSINOPHILS (test code = 1012) 4.4 % BASOPHILS (test code = 1013) 0.5 % IMMATURE GRANULOCYTES (test 0.3 % code = 1036) NUCLEATED RBCS (test code = 0.0 /100WBC'S 1065) PLATELET COUNT (test code = 218 K/UL 1015) ABSOLUTE NEUTROPHILS (test code 5.15 K/UL = 1066) ABSOLUTE LYMPHOCYTES (test code 1.63 K/UL = 1067) ABSOLUTE MONOCYTES (test code = 0.35 K/UL 1068) ABSOLUTE EOSINOPHILS (test code 0.33 K/UL = 1040) ABSOLUTE BASOPHILS (test code = 0.04 K/UL 1069) ABS IMMATURE GRANULOCYTES (test 0.02 K/UL code = 1020) ABS NUCLEATED RBCS (test code = 0.00 K/UL 54841) HEMOGLOBIN [id number] 00:00:00 Test Item Value Reference Range Interpretation Comments HEMOGLOBIN A1c (test code = 48572) 6.2 % HEMOGLOBIN [id number] 00:00:00 Test Item Value Reference Range Interpretation Comments HEMOGLOBIN A1c (test code = 32772) 6.2 % COMPREHENSIVE METABOLIC [id number] 00:00:00 Test Item Value Reference Range Interpretation Comments GLUCOSE (test code = 2217) 101 MG/DL BUN (test code = 2208) 12 MG/DL CREATININE (test code = 2214) 0.45 MG/DL eGFR AMER. (test code 143 ML/MIN/1.73 = 19981) eGFR NON- AMER. (test 124 ML/MIN/1.73 code = 91831) CALC BUN/CREAT (test code = 27 RATIO 2235) SODIUM (test code = 2231) 143 MEQ/L POTASSIUM (test code = 2228) 4.4 MEQ/L CHLORIDE (test code = 2215) 105 MEQ/L CARBON DIOXIDE (test code = 27 MEQ/L 2206) CALCIUM (test code = 2209) 9.4 MG/DL PROTEIN, TOTAL (test code = 7.7 G/DL 2228) ALBUMIN (test code = 2201) 4.1 G/DL CALC GLOBULIN (test code = 3.6 G/DL 224) CALC A/G RATIO (test code = 1.1 RATIO 223) BILIRUBIN, TOTAL (test code = 0.3 MG/DL 2206) ALKALINE PHOSPHATASE (test 102 U/L code = 2204) AST (test code = 2218) 15 U/L ALT (test code = 2219) 17 U/L TROPONIN [id number] 00:00:00 Test Item Value Reference Range Interpretation Comments TROPONIN T (test code = 4017) <0.010 UG/L LIPID [id number] 00:00:00 Test Item Value Reference Range Interpretation Comments CHOLESTEROL (test code = 2210) 166 MG/DL TRIGLYCERIDES (test code = 2232) 145 MG/DL HDL CHOLESTEROL (test code = 2220) 48 MG/DL CALC LDL CHOL (test code = 2237) 89 MG/DL RISK RATIO LDL/HDL (test code = 1.85 RATIO 2238) COMPREHENSIVE METABOLIC [id number] 00:00:00 Test Item Value Reference Range Interpretation Comments GLUCOSE (test code = 2217) 125 MG/DL BUN (test code = 2208) 16 MG/DL CREATININE (test code = 2214) 0.54 MG/DL eGFR AMER. (test code 137 ML/MIN/1.73 = 93495) eGFR NON- AMER. (test 118 ML/MIN/1.73 code = 68629) CALC BUN/CREAT (test code = 30 RATIO 2235) SODIUM (test code = 2231) 140 MEQ/L POTASSIUM (test code = 2228) 4.7 MEQ/L CHLORIDE (test code = 2215) 105 MEQ/L CARBON DIOXIDE (test code = 25 MEQ/L 2205) CALCIUM (test code = 2209) 9.2 MG/DL PROTEIN, TOTAL (test code = 7.8 G/DL 2228) ALBUMIN (test code = 2201) 4.3 G/DL CALC GLOBULIN (test code = 3.5 G/DL 2240) CALC A/G RATIO (test code = 1.2 RATIO 2234) BILIRUBIN, TOTAL (test code = 0.2 MG/DL 2206) ALKALINE PHOSPHATASE (test 114 U/L code = 2204) AST (test code = 2218) 17 U/L ALT (test code = 2219) 15 U/L COMPREHENSIVE METABOLIC [id number] 00:00:00 Test Item Value Reference Range Interpretation Comments GLUCOSE (test code = 2217) 125 MG/DL BUN (test code = 2208) 16 MG/DL CREATININE (test code = 2214) 0.54 MG/DL eGFR AMER. (test code 137 ML/MIN/1.73 = 60018) eGFR NON- AMER. (test 118 ML/MIN/1.73 code = 17614) CALC BUN/CREAT (test code = 30 RATIO 2235) SODIUM (test code = 2231) 140 MEQ/L POTASSIUM (test code = 2228) 4.7 MEQ/L CHLORIDE (test code = 2215) 105 MEQ/L CARBON DIOXIDE (test code = 25 MEQ/L 2205) CALCIUM (test code = 2209) 9.2 MG/DL PROTEIN, TOTAL (test code = 7.8 G/DL 2228) ALBUMIN (test code = 2201) 4.3 G/DL CALC GLOBULIN (test code = 3.5 G/DL 2239) CALC A/G RATIO (test code = 1.2 RATIO 4) BILIRUBIN, TOTAL (test code = 0.2 MG/DL 2206) ALKALINE PHOSPHATASE (test 114 U/L code = 2204) AST (test code = 2218) 17 U/L ALT (test code = 2219) 15 U/L HEMOGLOBIN [id number] 00:00:00 Test Item Value Reference Range Interpretation Comments HEMOGLOBIN A1c (test code = 26353) 5.9 % HEMOGLOBIN [id number] 00:00:00 Test Item Value Reference Range Interpretation Comments HEMOGLOBIN A1c (test code = 68346) 5.9 % HEMOGLOBIN [id number] 00:00:00 Test Item Value Reference Range Interpretation Comments HEMOGLOBIN A1c (test code = 55388) 5.9 % LIPID [id number] 00:00:00 Test Item Value Reference Range Interpretation Comments CHOLESTEROL (test code = 2210) 166 MG/DL TRIGLYCERIDES (test code = 2232) 145 MG/DL HDL CHOLESTEROL (test code = 2220) 48 MG/DL CALC LDL CHOL (test code = 2237) 89 MG/DL RISK RATIO LDL/HDL (test code = 1.85 RATIO 2238) COMPREHENSIVE METABOLIC [id number] 00:00:00 Test Item Value Reference Range Interpretation Comments GLUCOSE (test code = 2217) 125 MG/DL BUN (test code = 2208) 16 MG/DL CREATININE (test code = 2214) 0.54 MG/DL eGFR AMER. (test code 137 ML/MIN/1.73 = 49748) eGFR NON- AMER. (test 118 ML/MIN/1.73 code = 29750) CALC BUN/CREAT (test code = 30 RATIO 2235) SODIUM (test code = 2231) 140 MEQ/L POTASSIUM (test code = 2228) 4.7 MEQ/L CHLORIDE (test code = 2215) 105 MEQ/L CARBON DIOXIDE (test code = 25 MEQ/L 2205) CALCIUM (test code = 2209) 9.2 MG/DL PROTEIN, TOTAL (test code = 7.8 G/DL 2228) ALBUMIN (test code = 2201) 4.3 G/DL CALC GLOBULIN (test code = 3.5 G/DL 2239) CALC A/G RATIO (test code = 1.2 RATIO 2234) BILIRUBIN, TOTAL (test code = 0.2 MG/DL 2206) ALKALINE PHOSPHATASE (test 114 U/L code = 2204) AST (test code = 2218) 17 U/L ALT (test code = 2219) 15 U/L HEMOGLOBIN [id number] 00:00:00 Test Item Value Reference Range Interpretation Comments HEMOGLOBIN A1c (test code = 43393) 5.9 % HEMOGLOBIN [id number] 00:00:00 Test Item Value Reference Range Interpretation Comments HEMOGLOBIN A1c (test code = 64617) 5.9 % LIPID [id number] 00:00:00 Test Item Value Reference Range Interpretation Comments CHOLESTEROL (test code = 2210) 166 MG/DL TRIGLYCERIDES (test code = 2232) 145 MG/DL HDL CHOLESTEROL (test code = 2220) 48 MG/DL CALC LDL CHOL (test code = 2237) 89 MG/DL RISK RATIO LDL/HDL (test code = 1.85 RATIO 2238) CCP [id number] 00:00:00 Test Item Value Reference Range Interpretation Comments CCP IgG (test code = 02644) 184 UNITS CCP [id number] 00:00:00 Test Item Value Reference Range Interpretation Comments CCP IgG (test code = 50746) 184 UNITS CCP [id number] 00:00:00 Test Item Value Reference Range Interpretation Comments CCP IgG (test code = 30198) 184 UNITS CCP [id number] 00:00:00 Test Item Value Reference Range Interpretation Comments CCP IgG (test code = 06669) 184 UNITS CCP [id number] 00:00:00 Test Item Value Reference Range Interpretation Comments CCP IgG (test code = 83691) 184 UNITS ACUTE HEPATITIS [id number] 00:00:00 Test Item Value Reference Range Interpretation Comments HEPATITIS A IgM (test code = NON-REACTIVE 87935) HEPATITIS B CORE IgM (test code NON-REACTIVE = 4644) HEPATITIS B SURF AG (test code = NON-REACTIVE 2739) HEPATITIS C ANTIBODY (test code NON-REACTIVE = 4675) INTERPRETATION HEPATITIS A: (NOTE) (test code = 2552) INTERPRETATION HEPATITIS B: (NOTE) (test code = 66486) INTERPRETATION HEPATITIS C: (NOTE) (test code = 16553) ACUTE HEPATITIS [id number] 00:00:00 Test Item Value Reference Range Interpretation Comments HEPATITIS A IgM (test code = NON-REACTIVE 27764) HEPATITIS B CORE IgM (test code NON-REACTIVE = 4644) HEPATITIS B SURF AG (test code = NON-REACTIVE 2739) HEPATITIS C ANTIBODY (test code NON-REACTIVE = 4675) INTERPRETATION HEPATITIS A: (NOTE) (test code = 2552) INTERPRETATION HEPATITIS B: (NOTE) (test code = 20566) INTERPRETATION HEPATITIS C: (NOTE) (test code = 72345) C-REACTIVE [id number] 00:00:00 Test Item Value Reference Range Interpretation Comments C-REACTIVE PROTEIN (test code = 1.4 MG/DL 3513) C-REACTIVE [id number] 00:00:00 Test Item Value Reference Range Interpretation Comments C-REACTIVE PROTEIN (test code = 1.4 MG/DL 3513) ACUTE HEPATITIS [id number] 00:00:00 Test Item Value Reference Range Interpretation Comments HEPATITIS A IgM (test code = NON-REACTIVE 42374) HEPATITIS B CORE IgM (test code NON-REACTIVE = 4644) HEPATITIS B SURF AG (test code = NON-REACTIVE 2739) HEPATITIS C ANTIBODY (test code NON-REACTIVE = 4675) INTERPRETATION HEPATITIS A: (NOTE) (test code = 2552) INTERPRETATION HEPATITIS B: (NOTE) (test code = 96022) INTERPRETATION HEPATITIS C: (NOTE) (test code = 11010) C-REACTIVE [id number] 00:00:00 Test Item Value Reference Range Interpretation Comments C-REACTIVE PROTEIN (test code = 1.4 MG/DL 3513) ARTHRITIS [id number] 00:00:00 Test Item Value Reference Range Interpretation Comments RHEUMATOID FACTOR, QUANT 54 IU/ML (test code = 3502) URIC ACID (test code = 5.1 MG/DL 2233) SEDIMENTATION RATE (test TEST NOT PERFORMED code = 1017) MM/HOUR ANTI-NUCLEAR ANTIBODIES NEGATIVE (test code = 3506) ARTHRITIS [id number] 00:00:00 Test Item Value Reference Range Interpretation Comments RHEUMATOID FACTOR, QUANT 54 IU/ML (test code = 3502) URIC ACID (test code = 5.1 MG/DL 2233) SEDIMENTATION RATE (test TEST NOT PERFORMED code = 1017) MM/HOUR ANTI-NUCLEAR ANTIBODIES NEGATIVE (test code = 3506) ARTHRITIS [id number] 00:00:00 Test Item Value Reference Range Interpretation Comments RHEUMATOID FACTOR, QUANT 54 IU/ML (test code = 3502) URIC ACID (test code = 5.1 MG/DL 2233) SEDIMENTATION RATE (test TEST NOT PERFORMED code = 1017) MM/HOUR ANTI-NUCLEAR ANTIBODIES NEGATIVE (test code = 3506) VITAMIN D, 25 [id number] 00:00:00 Test Item Value Reference Range Interpretation Comments VITAMIN D, 25 OH (test code = 4958) 15 NG/ML VITAMIN D, 25 [id number] 00:00:00 Test Item Value Reference Range Interpretation Comments VITAMIN D, 25 OH (test code = 4958) 15 NG/ML ARTHRITIS [id number] 00:00:00 Test Item Value Reference Range Interpretation Comments RHEUMATOID FACTOR, QUANT 54 IU/ML (test code = 3502) URIC ACID (test code = 5.1 MG/DL 2233) SEDIMENTATION RATE (test TEST NOT PERFORMED code = 1017) MM/HOUR ANTI-NUCLEAR ANTIBODIES NEGATIVE (test code = 3506) ARTHRITIS [id number] 00:00:00 Test Item Value Reference Range Interpretation Comments RHEUMATOID FACTOR, QUANT 54 IU/ML (test code = 3502) URIC ACID (test code = 5.1 MG/DL 2233) SEDIMENTATION RATE (test TEST NOT PERFORMED code = 1017) MM/HOUR ANTI-NUCLEAR ANTIBODIES NEGATIVE (test code = 3506) VITAMIN D, 25 [id number] 00:00:00 Test Item Value Reference Range Interpretation Comments VITAMIN D, 25 OH (test code = 4958) 15 NG/ML COMPREHENSIVE METABOLIC [id number] 00:00:00 Test Item Value Reference Range Interpretation Comments GLUCOSE (test code = 2217) 86 MG/DL BUN (test code = 2208) 13 MG/DL CREATININE (test code = 2214) 0.44 MG/DL eGFR AMER. (test code 148 ML/MIN/1.73 = 18082) eGFR NON- AMER. (test 128 ML/MIN/1.73 code = 22428) CALC BUN/CREAT (test code = 30 RATIO 2235) SODIUM (test code = 2231) 137 MEQ/L POTASSIUM (test code = 2228) 4.4 MEQ/L CHLORIDE (test code = 2215) 101 MEQ/L CARBON DIOXIDE (test code = 23 MEQ/L 6) CALCIUM (test code = 2209) 9.4 MG/DL PROTEIN, TOTAL (test code = 8.0 G/DL 2229) ALBUMIN (test code = 2201) 4.6 G/DL CALC GLOBULIN (test code = 3.4 G/DL 2240) CALC A/G RATIO (test code = 1.4 RATIO 2234) BILIRUBIN, TOTAL (test code = 0.2 MG/DL 220) ALKALINE PHOSPHATASE (test 109 U/L code = 2204) AST (test code = 2218) 15 U/L ALT (test code = 2219) 12 U/L COMPREHENSIVE METABOLIC [id number] 00:00:00 Test Item Value Reference Range Interpretation Comments GLUCOSE (test code = 2217) 86 MG/DL BUN (test code = 2208) 13 MG/DL CREATININE (test code = 2214) 0.44 MG/DL eGFR AMER. (test code 148 ML/MIN/1.73 = 66521) eGFR NON- AMER. (test 128 ML/MIN/1.73 code = 18067) CALC BUN/CREAT (test code = 30 RATIO 2235) SODIUM (test code = 2231) 137 MEQ/L POTASSIUM (test code = 2228) 4.4 MEQ/L CHLORIDE (test code = 2215) 101 MEQ/L CARBON DIOXIDE (test code = 23 MEQ/L 2205) CALCIUM (test code = 2209) 9.4 MG/DL PROTEIN, TOTAL (test code = 8.0 G/DL 2228) ALBUMIN (test code = 2201) 4.6 G/DL CALC GLOBULIN (test code = 3.4 G/DL 0) CALC A/G RATIO (test code = 1.4 RATIO 2233) BILIRUBIN, TOTAL (test code = 0.2 MG/DL 2206) ALKALINE PHOSPHATASE (test 109 U/L code = 2204) AST (test code = 221) 15 U/L ALT (test code = 221) 12 U/L HIGH SENSITIVITY [id number] 00:00:00 Test Item Value Reference Range Interpretation Comments HIGH SENSITIVITY CRP (test code = 10.9 MG/L 00013) HIGH SENSITIVITY [id number] 00:00:00 Test Item Value Reference Range Interpretation Comments HIGH SENSITIVITY CRP (test code = 10.9 MG/L 50521) SEDIMENTATION [id number] 00:00:00 Test Item Value Reference Range Interpretation Comments SEDIMENTATION RATE (test code = 22 MM/HOUR 1017) SEDIMENTATION [id number] 00:00:00 Test Item Value Reference Range Interpretation Comments SEDIMENTATION RATE (test code = 22 MM/HOUR 1017) COMPREHENSIVE METABOLIC [id number] 00:00:00 Test Item Value Reference Range Interpretation Comments GLUCOSE (test code = 2217) 86 MG/DL BUN (test code = 8) 13 MG/DL CREATININE (test code = 2214) 0.44 MG/DL eGFR AMER. (test code 148 ML/MIN/1.73 = 86470) eGFR NON- AMER. (test 128 ML/MIN/1.73 code = 46925) CALC BUN/CREAT (test code = 30 RATIO 2234) SODIUM (test code = 2231) 137 MEQ/L POTASSIUM (test code = 2228) 4.4 MEQ/L CHLORIDE (test code = 2215) 101 MEQ/L CARBON DIOXIDE (test code = 23 MEQ/L 2205) CALCIUM (test code = 2209) 9.4 MG/DL PROTEIN, TOTAL (test code = 8.0 G/DL 2228) ALBUMIN (test code = 2201) 4.6 G/DL CALC GLOBULIN (test code = 3.4 G/DL 2240) CALC A/G RATIO (test code = 1.4 RATIO 2233) BILIRUBIN, TOTAL (test code = 0.2 MG/DL 2206) ALKALINE PHOSPHATASE (test 109 U/L code = 2204) AST (test code = 2218) 15 U/L ALT (test code = 2219) 12 U/L HIGH SENSITIVITY [id number] 00:00:00 Test Item Value Reference Range Interpretation Comments HIGH SENSITIVITY CRP (test code = 10.9 MG/L 43290) SEDIMENTATION [id number] 00:00:00 Test Item Value Reference Range Interpretation Comments SEDIMENTATION RATE (test code = 22 MM/HOUR 1017) CBC W/AUTO [id number] 00:00:00 Test Item Value Reference Range Interpretation Comments WBC (test code = 1001) 6.8 K/UL RBC (test code = 1002) 4.59 M/UL HEMOGLOBIN (test code = 1003) 11.5 G/DL HEMATOCRIT (test code = 1004) 36.0 % MCV (test code = 1005) 78.4 fL MCH (test code = 1006) 25.1 PG MCHC (test code = 1007) 31.9 G/DL RDW (test code = 1038) 15.4 % NEUTROPHILS (test code = 1008) 52.6 % LYMPHOCYTES (test code = 1010) 37.4 % MONOCYTES (test code = 1011) 4.4 % EOSINOPHILS (test code = 1012) 5.3 % BASOPHILS (test code = 1013) 0.3 % PLATELET COUNT (test code = 1015) 265 K/UL COMMENTS (test code = 1016) (NOTE) CBC W/AUTO [id number] 00:00:00 Test Item Value Reference Range Interpretation Comments WBC (test code = 1001) 6.8 K/UL RBC (test code = 1002) 4.59 M/UL HEMOGLOBIN (test code = 1003) 11.5 G/DL HEMATOCRIT (test code = 1004) 36.0 % MCV (test code = 1005) 78.4 fL MCH (test code = 1006) 25.1 PG MCHC (test code = 1007) 31.9 G/DL RDW (test code = 1038) 15.4 % NEUTROPHILS (test code = 1008) 52.6 % LYMPHOCYTES (test code = 1010) 37.4 % MONOCYTES (test code = 1011) 4.4 % EOSINOPHILS (test code = 1012) 5.3 % BASOPHILS (test code = 1013) 0.3 % PLATELET COUNT (test code = 1015) 265 K/UL COMMENTS (test code = 1016) (NOTE) CBC W/AUTO [id number] 00:00:00 Test Item Value Reference Range Interpretation Comments WBC (test code = 1001) 6.8 K/UL RBC (test code = 1002) 4.59 M/UL HEMOGLOBIN (test code = 1003) 11.5 G/DL HEMATOCRIT (test code = 1004) 36.0 % MCV (test code = 1005) 78.4 fL MCH (test code = 1006) 25.1 PG MCHC (test code = 1007) 31.9 G/DL RDW (test code = 1038) 15.4 % NEUTROPHILS (test code = 1008) 52.6 % LYMPHOCYTES (test code = 1010) 37.4 % MONOCYTES (test code = 1011) 4.4 % EOSINOPHILS (test code = 1012) 5.3 % BASOPHILS (test code = 1013) 0.3 % PLATELET COUNT (test code = 1015) 265 K/UL COMMENTS (test code = 1016) (NOTE) LIPID [id number] 00:00:00 Test Item Value Reference Range Interpretation Comments CHOLESTEROL (test code = 2210) 127 MG/DL TRIGLYCERIDES (test code = 2232) 108 MG/DL HDL CHOLESTEROL (test code = 2220) 33 MG/DL CALC LDL CHOL (test code = 2237) 72 MG/DL RISK RATIO LDL/HDL (test code = 2.19 RATIO 2238) LIPID [id number] 00:00:00 Test Item Value Reference Range Interpretation Comments CHOLESTEROL (test code = 2210) 127 MG/DL TRIGLYCERIDES (test code = 2232) 108 MG/DL HDL CHOLESTEROL (test code = 2220) 33 MG/DL CALC LDL CHOL (test code = 2237) 72 MG/DL RISK RATIO LDL/HDL (test code = 2.19 RATIO 2238) COMPREHENSIVE METABOLIC [id number] 00:00:00 Test Item Value Reference Range Interpretation Comments GLUCOSE (test code = 2217) 99 MG/DL BUN (test code = 2208) 7 MG/DL CREATININE (test code = 2214) 0.47 MG/DL eGFR AMER. (test code 146 ML/MIN/1.73 = 31055) eGFR NON- AMER. (test 126 ML/MIN/1.73 code = 32488) CALC BUN/CREAT (test code = 15 RATIO 2235) SODIUM (test code = 2231) 142 MEQ/L POTASSIUM (test code = 2228) 4.2 MEQ/L CHLORIDE (test code = 2215) 103 MEQ/L CARBON DIOXIDE (test code = 24 MEQ/L 220) CALCIUM (test code = 2209) 9.4 MG/DL PROTEIN, TOTAL (test code = 8.0 G/DL 2228) ALBUMIN (test code = 2201) 3.8 G/DL CALC GLOBULIN (test code = 4.2 G/DL 2240) CALC A/G RATIO (test code = 0.9 RATIO 2233) BILIRUBIN, TOTAL (test code = 0.3 MG/DL 2206) ALKALINE PHOSPHATASE (test 109 U/L code = 2204) AST (test code = 2218) 23 U/L ALT (test code = 2219) 24 U/L COMPREHENSIVE METABOLIC [id number] 00:00:00 Test Item Value Reference Range Interpretation Comments GLUCOSE (test code = 2217) 99 MG/DL BUN (test code = 2208) 7 MG/DL CREATININE (test code = 2214) 0.47 MG/DL eGFR AMER. (test code 146 ML/MIN/1.73 = 38754) eGFR NON- AMER. (test 126 ML/MIN/1.73 code = 91391) CALC BUN/CREAT (test code = 15 RATIO 2235) SODIUM (test code = 2231) 142 MEQ/L POTASSIUM (test code = 2228) 4.2 MEQ/L CHLORIDE (test code = 2215) 103 MEQ/L CARBON DIOXIDE (test code = 24 MEQ/L 2206) CALCIUM (test code = 2209) 9.4 MG/DL PROTEIN, TOTAL (test code = 8.0 G/DL 2228) ALBUMIN (test code = 2201) 3.8 G/DL CALC GLOBULIN (test code = 4.2 G/DL 2240) CALC A/G RATIO (test code = 0.9 RATIO 4) BILIRUBIN, TOTAL (test code = 0.3 MG/DL 2206) ALKALINE PHOSPHATASE (test 109 U/L code = 2204) AST (test code = 2218) 23 U/L ALT (test code = 2219) 24 U/L HEMOGLOBIN [id number] 00:00:00 Test Item Value Reference Range Interpretation Comments HEMOGLOBIN A1c (test code = 23675) 6.1 % HEMOGLOBIN [id number] 00:00:00 Test Item Value Reference Range Interpretation Comments HEMOGLOBIN A1c (test code = 05140) 6.1 % HEMOGLOBIN [id number] 00:00:00 Test Item Value Reference Range Interpretation Comments HEMOGLOBIN A1c (test code = 82450) 6.1 % [id number] 00:00:00 Test Item Value Reference Range Interpretation Comments TSH (test code = 2821) 1.06 UIU/ML [id number] 00:00:00 Test Item Value Reference Range Interpretation Comments TSH (test code = 2821) 1.06 UIU/ML [id number] 00:00:00 Test Item Value Reference Range Interpretation Comments TSH (test code = 2821) 1.06 UIU/ML CBC W/AUTO [id number] 00:00:00 Test Item Value Reference Range Interpretation Comments WBC (test code = 1001) 6.8 K/UL RBC (test code = 1002) 4.59 M/UL HEMOGLOBIN (test code = 1003) 11.5 G/DL HEMATOCRIT (test code = 1004) 36.0 % MCV (test code = 1005) 78.4 fL MCH (test code = 1006) 25.1 PG MCHC (test code = 1007) 31.9 G/DL RDW (test code = 1038) 15.4 % NEUTROPHILS (test code = 1008) 52.6 % LYMPHOCYTES (test code = 1010) 37.4 % MONOCYTES (test code = 1011) 4.4 % EOSINOPHILS (test code = 1012) 5.3 % BASOPHILS (test code = 1013) 0.3 % PLATELET COUNT (test code = 1015) 265 K/UL COMMENTS (test code = 1016) (NOTE) CBC W/AUTO [id number] 00:00:00 Test Item Value Reference Range Interpretation Comments WBC (test code = 1001) 6.8 K/UL RBC (test code = 1002) 4.59 M/UL HEMOGLOBIN (test code = 1003) 11.5 G/DL HEMATOCRIT (test code = 1004) 36.0 % MCV (test code = 1005) 78.4 fL MCH (test code = 1006) 25.1 PG MCHC (test code = 1007) 31.9 G/DL RDW (test code = 1038) 15.4 % NEUTROPHILS (test code = 1008) 52.6 % LYMPHOCYTES (test code = 1010) 37.4 % MONOCYTES (test code = 1011) 4.4 % EOSINOPHILS (test code = 1012) 5.3 % BASOPHILS (test code = 1013) 0.3 % PLATELET COUNT (test code = 1015) 265 K/UL COMMENTS (test code = 1016) (NOTE) LIPID [id number] 00:00:00 Test Item Value Reference Range Interpretation Comments CHOLESTEROL (test code = 2210) 127 MG/DL TRIGLYCERIDES (test code = 2232) 108 MG/DL HDL CHOLESTEROL (test code = 2220) 33 MG/DL CALC LDL CHOL (test code = 2237) 72 MG/DL RISK RATIO LDL/HDL (test code = 2.19 RATIO 2238) COMPREHENSIVE METABOLIC [id number] 00:00:00 Test Item Value Reference Range Interpretation Comments GLUCOSE (test code = 2217) 99 MG/DL BUN (test code = 2208) 7 MG/DL CREATININE (test code = 2214) 0.47 MG/DL eGFR AMER. (test code 146 ML/MIN/1.73 = 26580) eGFR NON- AMER. (test 126 ML/MIN/1.73 code = 74293) CALC BUN/CREAT (test code = 15 RATIO 2235) SODIUM (test code = 2231) 142 MEQ/L POTASSIUM (test code = 2228) 4.2 MEQ/L CHLORIDE (test code = 2215) 103 MEQ/L CARBON DIOXIDE (test code = 24 MEQ/L 2205) CALCIUM (test code = 2209) 9.4 MG/DL PROTEIN, TOTAL (test code = 8.0 G/DL 2228) ALBUMIN (test code = 2201) 3.8 G/DL CALC GLOBULIN (test code = 4.2 G/DL 2239) CALC A/G RATIO (test code = 0.9 RATIO 2233) BILIRUBIN, TOTAL (test code = 0.3 MG/DL 2206) ALKALINE PHOSPHATASE (test 109 U/L code = 2204) AST (test code = 2218) 23 U/L ALT (test code = 2219) 24 U/L HEMOGLOBIN [id number] 00:00:00 Test Item Value Reference Range Interpretation Comments HEMOGLOBIN A1c (test code = 45303) 6.1 % HEMOGLOBIN [id number] 00:00:00 Test Item Value Reference Range Interpretation Comments HEMOGLOBIN A1c (test code = 94116) 6.1 % [id number] 00:00:00 Test Item Value Reference Range Interpretation Comments TSH (test code = 2821) 1.06 UIU/ML [id number] 00:00:00 Test Item Value Reference Range Interpretation Comments TSH (test code = 2821) 1.06 UIU/ML
[2021-12-22] MEDS ORDERED: MORPHINE 4 MG/ML SYR ONE (08:56)
[2021-12-22] MEDS ORDERED: PROMETHAZINE INJ 25 MG/ML AMP ONE (08:56)
[2021-12-22] MEDS ORDERED: ALBUTEROL 2.5 MG/3 ML NEB SOL ONE (08:56)
[2021-12-22 09:27] LABS: Absolute Lymphocytes (CBC) 1.5 K/uL (0.7-4.9); Hematocrit 35.1 % (36.0-45.0); Lymphocytes % 22.1 % (15.3-44.8); MCV 85.5 fL (80-100); MPV 8.1 fL (7.6-11.3); RBC Red Blood Cell Count 4.11 M/uL (3.86-4.86)
--- NOTE | 2021-12-22 09:27 | RAD REPORT ---
EXAM DESCRIPTION: RAD - Chest Single View - 12/22/2021 9:21 am CLINICAL HISTORY: CHEST PAIN COMPARISON: Chest Single View dated 08/26/2021; Chest Single View dated 07/15/2021; Chest Single View d ated 06/21/2021; Chest Single View dated 06/07/2021 FINDINGS: Lines: None. Lungs: Increased prominence of the pulmonary vasculature. Pleural: No significant pleural effusions or pneumothorax. Cardiac: Similar size and configuration. Mediastinum: Within normal limits. Bones: No acute fractures. Other: None IMPRESSION: Question pulmonary vascular congestion. No margie pulmonary edema. No consolidative airsp natalie disease.
[2021-12-22] MEDS ORDERED: FUROSEMIDE 40 MG TABLET ONE (09:37)
[2021-12-22 09:42] LABS: Protime INR 1.04
[2021-12-22 09:48] LABS: Albumin 3.2 g/dL (3.4-5.0); Bilirubin Total 0.4 mg/dL (0.2-1.0); Potassium 4.1 mmol/L (3.5-5.1); Protein, Total 8.5 g/dL (6.4-8.2)
[2021-12-22] MEDS ORDERED: HYDROMORPHONE HCL 1 MG/ML INJ ONE (09:48)
[2021-12-22 11:23] LABS: Urine Blood Negative (Negative); Urine Glucose Negative (Negative); Urine Protein Trace (Negative); Urine Specific Gravity 1.025 (1.005-1.030); Urine pH 6.5 (5.0-7.0)
[2021-12-22 11:38] LABS: Urine Mucus 2+ /HPF (None Seen)
[2021-12-22 11:39] LABS: Urine Specific Gravity/Preg 1.025 (1.005-1.030)
--- NOTE | 2021-12-22 11:54 | EDPHYS ---
Physician Documentation [facility] Name: Kina Parham Age: 41 yrs Sex: Female : 1980 Arrival Date: 12/22/2021 Time: 08:35 Bed 15 Private MD: ED Physician Amadeo Dennison HPI: 12/22 08:55 This 41 yrs old Female presents to ER via Wheelchair with complaints of Chest snw Pain. 08:55 Onset: The symptoms/episode began/occurred acutely, 4 day(s) ago. Associated signs and snw symptoms: Pertinent positives: chest pain, congestion, cough, headache, shortness of breath, wheezing. Modifying factors: The patient symptoms are alleviated by nothing. The patient has not experienced similar symptoms in the past. The patient has not recently seen a physician. uses the [facility]. 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 - Social history:: Smoking status: Patient denies any tobacco usage or history of. ROS: 08:54 Constitutional: Negative for fever, chills, and weight loss, Eyes: Negative for injury, snw pain, redness, and discharge, ENT: Negative for injury, pain, and discharge, Neck: Negative for injury, pain, and swelling. 08:54 Abdomen/GI: Negative for abdominal pain, nausea, vomiting, diarrhea, and constipation, Back: Negative for injury and pain, : Negative for injury, bleeding, discharge, and swelling, MS/Extremity: Negative for injury and deformity, Skin: Negative for injury, rash, and discoloration. 08:54 Cardiovascular: Positive for chest pain, orthopnea. 08:54 Respiratory: Positive for cough, orthopnea, pleurisy, shortness of breath, wheezing. 08:54 Neuro: Positive for headache. Exam: 08:53 Head/Face: Normocephalic, atraumatic. Eyes: Pupils equal round and reactive to light, snw extra-ocular motions intact. Lids and lashes normal. Conjunctiva and sclera are non-icteric and not injected. Cornea within normal limits. Periorbital areas with no swelling, redness, or edema. ENT: Nares patent. No nasal discharge, no septal abnormalities noted. Tympanic membranes are normal and external auditory canals are clear. Oropharynx with no redness, swelling, or masses, exudates, or evidence of obstruction, uvula midline. Mucous membranes moist. Neck: Trachea midline, no thyromegaly or masses palpated, and no cervical lymphadenopathy. Supple, full range of motion without nuchal rigidity, or vertebral point tenderness. No Meningismus. Chest/axilla: Normal chest wall appearance and motion. Nontender with no deformity. No lesions are appreciated. 08:53 Abdomen/GI: Soft, non-tender, with normal bowel sounds. No distension or tympany. No guarding or rebound. No evidence of tenderness throughout. Back: No spinal tenderness. No costovertebral tenderness. Full range of motion. Skin: Warm, dry with normal turgor. Normal color with no rashes, no lesions, and no evidence of cellulitis. MS/ Extremity: Pulses equal, no cyanosis. Neurovascular intact. Full, normal range of motion. Neuro: Awake and alert, GCS 15, oriented to person, place, time, and situation. Cranial nerves II-XII grossly intact. Motor strength 5/5 in all extremities. Sensory grossly intact. Cerebellar exam normal. Normal gait. 08:53 Constitutional: The patient appears alert, anxious, obese, in obvious distress, restless, uncomfortable. 08:53 Cardiovascular: Exam negative for 08:53 Respiratory: moderate respiratory distress is noted, Respirations: shallow respirations, that is moderate, tachypnea, that is moderate, Breath sounds: decreased breath sounds, that are moderate, wheezing: expiratory that is severe, is heard diffusely. Vital Signs: 08:43 BP 156 / 89; Pulse 82; Resp 24 S; Temp 98.8(TE); Pulse Ox 91% on R/A; iw 09:15 BP 147 / 89; Pulse 74; Resp 22; Pulse Ox 97% on Nebulizer Mask; ko1 10:07 BP 117 / 69; Pulse 79; Pulse Ox 100% on 2 lpm NC; ko1 11:08 BP 135 / 78 Supine; Pulse 72; Pulse Ox 96% on R/A; ko1 11:10 BP 130 / 72 Sitting; Pulse 84; Pulse Ox 95% on R/A; ko1 11:12 BP 141 / 72 Standing; Pulse 79; Pulse Ox 95% on R/A; ko1 12:10 BP 133 / 68; Pulse 74; Resp 18; Temp 98(O); Pulse Ox 93% on R/A; ko1 MDM: 08:38 Patient medically screened. snw 09:22 Data reviewed: vital signs, nurses notes. Data interpreted: Pulse oximetry: on room air snw is 91 %. Interpretation: hypoxia. Plan: will initiate a nebulizer treatment. Counseling: I had a detailed discussion with the patient and/or guardian regarding: the historical points, exam findings, and any diagnostic results supporting the discharge/admit diagnosis. Response to treatment: the patient's symptoms have mildly improved after treatment, continued headache and chest discomfort. 12/22 08:45 Order name: Blood Culture Adult (2) snw 12/22 08:45 Order name: CBC with Diff; Complete Time: 09:33 snw 12/22 08:45 Order name: CMP; Complete Time: 09:50 snw 12/22 08:45 Order name: Lactate; Complete Time: 09:50 snw 12/22 08:45 Order name: Protime (+inr); Complete Time: 09:42 snw 12/22 08:45 Order name: Ptt, Activated; Complete Time: 09:42 snw 12/22 08:45 Order name: Urine Culture snw 12/22 08:45 Order name: Urine Microscopic Only; Complete Time: 11:39 snw 12/22 08:52 Order name: Flu; Complete Time: 09:50 snw 12/22 09:21 Order name: Glucose, Ancillary Testing; Complete Time: 09:22 EDMS 12/22 10:00 Order name: SARS-COV-2 RT PCR; Complete Time: 10:52 EDMS 12/22 11:23 Order name: Urine Dipstick-Ancillary; Complete Time: 11:32 EDMS 12/22 11:26 Order name: Urine --Ancillary (enter results); Complete Time: 11:39 bd 12/22 08:45 Order name: Chest Single View XRAY; Complete Time: 09:33 snw 12/22 08:45 Order name: Accucheck; Complete Time: 09:10 snw 12/22 08:45 Order name: Cardiac monitoring; Complete Time: 08:50 snw 12/22 08:45 Order name: EKG - Nurse/Tech; Complete Time: 08:50 snw 12/22 08:45 Order name: IV Saline Lock - Large Bore; Complete Time: 09:10 snw 12/22 08:45 Order name: Labs collected and sent; Complete Time: 09:19 snw 12/22 08:45 Order name: O2 Per Protocol; Complete Time: 08:50 snw 12/22 08:45 Order name: O2 Sat Monitoring; Complete Time: 08:50 snw 12/22 08:45 Order name: Vital Signs; Complete Time: 08:57 snw 12/22 10:53 Order name: Misc. Order: ambulate with pt around nurses' station, no oxygen and then do snw orthostatic vs; Complete Time: 11:35 EC:45 Rate is 74 beats/min. Rhythm is regular. QRS [place] is Normal. AL interval is normal. QRS snw interval is normal. Clinical impression: Normal ECG. Administered Medications: 09:10 Drug: Albuterol 2.5 mg Route: Inhalation; iw 09:20 Drug: Albuterol 2.5 mg Route: Inhalation; iw 09:23 Drug: Phenergan (promethazine) 25 mg Route: IM; Site: right gluteus; iw 09:24 Drug: morphine 4 mg Route: IVP; Infused Over: 4 mins; Site: left antecubital; iw 09:39 Drug: LaSIX (furosemide) 40 mg Route: PO; ko1 09:42 Drug: Albuterol 2.5 mg Route: Inhalation; ko1 09:54 Drug: Dilaudid (HYDROmorphone) 1 mg Route: IVP; Site: left antecubital; ko1 Disposition: 13:27 Co-signature as Attending Physician, Amadeo Dennison MD I agree with the assessment and kdr plan of care. Disposition Summary: 12/22/21 11:53 Discharge Ordered Location: Home snw Condition: Stable snw Diagnosis - Unspecified asthma with (acute) exacerbation snw Followup: snw - With: Private Physician - When: 1 - 2 days - Reason: Recheck today's complaints, Continuance of care, Re-evaluation by your physician Followup: snw - With: Emergency Department - When: As needed - Reason: Trouble breathing Discharge Instructions: - Discharge Summary Sheet snw - Asthma, Adult snw Forms: - Medication Reconciliation Form snw - Thank You Letter snw - Antibiotic Education snw - Prescription Opioid Use snw - Work release form ko1 Prescriptions: - Pulmicort Flexhaler 180 mcg/actuation Inhalation aerosol powdr breath activated - inhale 1 puff by INHALATION route 2 times per day Rinse mouth after use; 1 snw vial; Refills: 0, Product Selection Permitted - albuterol sulfate 90 mcg/actuation Inhalation HFA aerosol inhaler - inhale 2 puff by INHALATION route every 4-6 hours; 1 vial; Refills: 0, Product snw Selection Permitted - Zyrtec 10 mg Oral Tablet - take 1 tablet by ORAL route once daily As needed; 20 tablet; Refills: 0, snw Product Selection Permitted - Pepcid 20 mg Oral Tablet - take 1 tablet by ORAL route once daily; 20 tablet; Refills: 0, Product snw Selection Permitted Signatures: Dispatcher [employer] EDMS Amadeo Dennison MD MD kdr Waters, Shelly, TRAINMAN-C TRAINMAN-Csnw Cora Foster, GLORIA RN iw Daisha Cornejo RN RN ko1 Corrections: (The following items were deleted from the chart) 10:00 08:53 SARS-COV-2 Antigen Rapid+I.LAB.BRZ ordered. EDMS EDMS
--- NOTE | 2021-12-22 11:54 | ER ---
Nurse's Notes [facility] Name: Kina Parham Age: 41 yrs Sex: Female : 1980 Arrival Date: 12/22/2021 Time: 08:35 Bed 15 Private MD: Diagnosis: Unspecified asthma with (acute) exacerbation Presentation: 12/22 08:42 Chief complaint: Patient states: SOB, chest pressure, headache X 4 days +,cough, no iw fever , + wheezing. Coronavirus screen: Client presents with at least one sign or symptom that may indicate coronavirus-19. Ebola Screen: Patient negative for fever greater than or equal to 101.5 degrees Fahrenheit, and additional compatible Ebola Virus Disease symptoms Patient denies exposure to infectious person. Patient denies travel to an Ebola-affected area in the 21 days before illness onset. No symptoms or risks identified at this time. 08:42 Method Of Arrival: Wheelchair iw 08:42 Acuity: DOMINIC 3 iw 12:19 Initial Sepsis Screen: Does the patient meet any 2 criteria? No. Patient's initial ko1 sepsis screen is negative. Does the patient have a suspected source of infection? No. Patient's initial sepsis screen is negative. Risk Assessment: Do you want to hurt yourself or someone else? Patient reports no desire to harm self or others. Onset of symptoms was December 22, 2021. Triage Assessment: 10:00 General: Appears distressed, uncomfortable. Pain: Complains of pain in left leg and ko1 anterior aspect of left ankle and right posterior lower lobe and left posterior lower lobe and scalp and occipital area and right parietal area and left parietal area. 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 - Social history:: Smoking status: Patient denies any tobacco usage or history of. Screenin:00 Abuse screen: Denies threats or abuse. Denies injuries from another. Nutritional ko1 screening: No deficits noted. Tuberculosis screening: No symptoms or risk factors identified. Fall Risk None identified. Assessment: 09:00 General: Appears distressed, uncomfortable, Behavior is calm, cooperative, appropriate ko1 for age. Pain: Complains of pain in left parietal area, right parietal area and occipital area Pain does not radiate. Pain began 2 hours ago. Neuro: No deficits noted. Cardiovascular: Reports chest pain. Cardiovascular: Rhythm is sinus rhythm. Respiratory: Reports shortness of breath at rest on exertion Breath sounds with crackles bilaterally. Breath sounds are diminished in left posterior lower lobe and right posterior lower lobe Breath sounds with wheezes bilaterally. GI: No deficits noted. : No deficits noted. EENT: No deficits noted. Derm: Wound noted anterior aspect of left ankle. Musculoskeletal: Swelling present in bilateral lower extremities. Vital Signs: 08:43 BP 156 / 89; Pulse 82; Resp 24 S; Temp 98.8(TE); Pulse Ox 91% on R/A; iw 09:15 BP 147 / 89; Pulse 74; Resp 22; Pulse Ox 97% on Nebulizer Mask; ko1 10:07 BP 117 / 69; Pulse 79; Pulse Ox 100% on 2 lpm NC; ko1 11:08 BP 135 / 78 Supine; Pulse 72; Pulse Ox 96% on R/A; ko1 11:10 BP 130 / 72 Sitting; Pulse 84; Pulse Ox 95% on R/A; ko1 11:12 BP 141 / 72 Standing; Pulse 79; Pulse Ox 95% on R/A; ko1 12:10 BP 133 / 68; Pulse 74; Resp 18; Temp 98(O); Pulse Ox 93% on R/A; ko1 ED Course: 08:35 Patient arrived in ED. as 08:37 Elise Bullock FNP-C is PHCP. snw 08:37 Amadeo Dennison MD is Attending Physician. snw 08:43 Triage completed. iw 08:49 Cora Foster, GLORIA is Primary Nurse. iw 09:00 Oxygen administration via nasal cannula \T\ 2L/min Response to oxygen therapy: symptoms ko1 improved. 09:00 Patient has correct armband on for positive identification. Placed in gown. Bed in low ko1 position. Call light in reach. Side rails up X 1. Adult w/ patient. Client placed on continuous cardiac and pulse oximetry monitoring. NIBP monitoring applied. hall monitor on. Pulse ox on. NIBP on. Door closed. Noise minimized. Lights dimmed. Warm blanket given. 09:11 Initial lab(s) drawn, by me, sent to lab. First set of blood cultures drawn LAC. jw7 09:17 Inserted saline lock: 20 gauge in left antecubital area, using aseptic technique. Blood jw7 collected. 09:19 CBC with Diff Sent. jw7 09:19 CMP Sent. jw7 09:19 Lactate Sent. jw7 09:19 Protime (+inr) Sent. jw7 09:19 Ptt, Activated Sent. jw7 09:22 Chest Single View XRAY In Process Unspecified. EDMS 12:10 No provider procedures requiring assistance completed. IV discontinued, intact, ko1 bleeding controlled, No redness/swelling at site. Pressure dressing applied. 12:23 Arm band placed on left wrist. Patient placed in an exam room, Patient notified of wait ko1 time. Administered Medications: 09:10 Drug: Albuterol 2.5 mg Route: Inhalation; iw 09:20 Drug: Albuterol 2.5 mg Route: Inhalation; iw 09:23 Drug: Phenergan (promethazine) 25 mg Route: IM; Site: right gluteus; iw 09:24 Drug: morphine 4 mg Route: IVP; Infused Over: 4 mins; Site: left antecubital; iw 09:39 Drug: LaSIX (furosemide) 40 mg Route: PO; ko1 09:42 Drug: Albuterol 2.5 mg Route: Inhalation; ko1 09:54 Drug: Dilaudid (HYDROmorphone) 1 mg Route: IVP; Site: left antecubital; ko1 Medication: 12:10 VIS not applicable for this client. ko1 Outcome: 11:53 Discharge ordered by . princess 12:10 Discharged to home ambulatory, with family. ko1 12:10 Condition: improved 12:10 Discharge instructions given to patient, family, Instructed on discharge instructions, follow up and referral plans. medication usage, Demonstrated understanding of instructions, follow-up care, medications, Prescriptions given X 4. 12:23 Patient left the ED. ko1 Addendum: 12/25/2021 04:02 Addendum: Culture Results: Positive blood culture. probably contaminate- [employer] t w5 bottle gram positive cocci in pairs. Signatures: Dispatcher [employer] EDMS Elise Bullock, ELIZABETH-C CORSET FITTER-Csnw Jazmin Griffin Irene, GLORIA RN Diana Gomez tw5 Eliane Mayes jw7 Daisha Cornejo RN RN ko1 Corrections: (The following items were deleted from the chart) 12/22 08:47 08:43 BP 156 / 89; Pulse 82bpm; Resp 24bpm; Spontaneous; Pulse Ox 91% RA; iw iw
[2021-12-22 13:47] VITALS: BP 133/68; TEMP 98; O2SAT 93
--- NOTE | 2021-12-23 14:56 | EKG ---
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
== END 2021-12-22 12:23 | disposition home or self-care (01) ==
LOC: ER 08:34
DX: J45.901 Unspecified asthma with (acute) exacerbation (principal); Z20.822 Contact with and (suspected) exposure to COVID-19
CPT/HCPCS: 93005; 87040 ×2; 87088; 85025; 87086; 36415; 87205; 81025; 85610; 82947; 83605; 85730; 80053; 87804 ×2; 71045; 96375; 96372; 96374; 99285; U0003; J2550; J1170; 81003; 81015

== ENCOUNTER 2022-02-19 17:17 | Emergency (ER) | payer OTHER, SELFPAY ==
--- OUTSIDE RECORDS SUMMARY | 2022-02-19 17:31 | XMS REPORT | Continuity of Care Document ---
:1980 Author Organization [facility] t Address [address] [place] [address] Care Team Providers Name Role Phone [facility] Primary Care Physician Unavailable Magda Gilliam LVN Attending Clinician JONES PHIPPS Attending Clinician Unavailable Mariusz Deluca MD Attending Clinician Arnold Mejia MD Attending Clinician Mayte Addison DO Attending Clinician Jones Phipps MD Attending Clinician Tracie William MD Attending Clinician ARNOLD MEJIA Attending Clinician Unavailable PAYAL GALLARDO Attending Clinician Unavailable Jeanna Small Attending Clinician Payal Gallardo MD Attending Clinician RENATA ACOSTA Attending Clinician Unavailable Renata Acosta DO Attending Clinician Tamika Vieira DO Attending Clinician Vitaliy Eason DO Attending Clinician TAMIKA VIEIRA Attending Clinician Unavailable MIGUEL MENDOZA Attending Clinician Unavailable Miguel Mendoza MD Attending Clinician Carolynn Douglas MD Attending Clinician TRACIE WILLIAM Admitting Clinician Unavailable Tracie William MD Admitting Clinician ARNOLD MEJIA Admitting Clinician Unavailable PAYAL GALLARDO Admitting Clinician Unavailable Payal Gallardo MD Admitting Clinician RENATA ACOSTA Admitting Clinician Unavailable Vitaliy Eason DO Admitting Clinician CAROLYNN DOUGLAS Admitting Clinician Unavailable Carolynn Douglas MD Admitting Clinician Payers Payer Name Policy Type Policy Number Effective Date Expiration Date S ource Problems Condition Condition Condition Status Onset Resolution Last Treating Co mments Source Name Details Category Date Date Treatment Clinician Date Morbid Morbid Disease Active 2021-02 Univers obesity obesity 1-29 ity of [place] mass index mass index 00 Me dical of 50 or of 50 or Branch higher higher Other Other Disease Active 2021-02 Univers headache headache 1-29 ity of syndrome syndrome 00:00: [address] Hypoxia Hypoxia Disease Active 2021-02 Univers 1-28 ity of 00:00: [address] Asthma Asthma Disease Active Univers with acute with acute 8-18 it y of exacerb[place] exacerb[place], on, 00 Medical unspecifie unspecifie Br anch d asthma d asthma severity, severity, unspecifie unspecifie d whether d whether persistent persistent Shortness Shortness Disease Active Uni vers of breath of breath 5-27 ity of 00:00: [place] 00 Medical Branch Pneumonia Pneumonia Disease Active Uni vers 5-27 ity of 00:00: [place] 00 Medical Branch RESENDIZ RESENDIZ Disease Active Univers (dyspnea (dyspnea 07-09 ity of on on 00:00: [place] exertion) exertion) [facility] Tachycardi Tachycardi Disease Active U nivers a a 5-27 ity of 00:00: [place] 00 Medical Branch Essential Essential Disease Active Uni vers hypertensi hypertensi -27 it y of on on 00:00: [place] 00 Medical Branch Normal Normal Disease Active Univers delivery delivery 09-13 ity of 00:00: [place] 00 Medical Branch Screening Screening Disease Active Overview: Univers for for 09-02 Formattin ity of diabetes diabetes 00:00: g of this [place] as mellitus mellitus 00 note Medica l might be Branch different from the original. 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 33-34 Disease Active Univers completed completed ity of weeks of weeks of [place] gestation( gestation( Me dical 765.27) 765.27) Branch Body mass Body mass Disease Active Uni vers index 40 index 40 ity of and over, and over, [facility] adult adult [facility] Carrier or Carrier or Disease Active U nivers suspected suspected ity of carrier of carrier of [place] group B group B Medical Streptococ Streptococ Br anch cus cus Insufficie Insufficie Disease Active U nivers nt nt ity of [facility] Other Other Disease Active Univers abnormal abnormal ity of glucose glucose [facility] Other Other Disease Active Univers ity of screening screening [facility] Branch Screening Screening Disease Active Uni vers examinatio examinatio it y of n for n for [place] rubella rubella [facility] Supervisio Supervisio Disease Active U nivers n of other n of other it y of normal normal [place] [facility] Allergies, Adverse Reactions, Alerts Allergy Allergy Status Severity Reaction(s) Onset Inactive Treating Comm ents Source Name Type Date Date Clinician NO KNOWN Drug Active Univers ALLERGIE Class ity of S [facility] Family History Family Member Diagnosis Comments Start Date Stop Date Source Natural father Diabetes [facility] Natural mother Diabetes [facility] Social History Social Habit Start Date Stop Date Quantity Comments Source History of Passive smoker University of tobacco use [facility] Exposure to 2022-01-02 2022-01-12 Not sure [facility] SARS-CoV-2 00:00:00 22:11:00 [facility] (event) Branch Alcohol intake 2022-01-12 2022-01-12 Ex-drinker [facility] 00:00:00 00:00:00 (finding) [facility] Education 2021-09-30 2021-09-30 6 [facility] 00:00:00 00:00:00 [facility] Tobacco use and 2021-09-30 2021-09-30 Smokeless tobacco Un iversity of exposure 00:00:00 00:00:00 non-user [facility] Sex Ass[birth year] At [birth year] Universit y of 00:00:00 00:00:00 [facility] Smoking Status Start Date Stop Date Source Tobacco smoking consumption Univ ersity of [facility] unknown Branch Never smoked tobacco [facility] Medications Ordered Filled Start Stop Current Ordering Indication Dosage Frequency Signature Comments Components Source Medication Medication Date Date Medication? Clinician (SIG) Name Name TAKE No TABLETS BY 1-03 MOUTH ONCE 00:00: DAILY FOR 5 00 DAYS lisinopriL 2021-02 Yes 10mg Take 10 mg U nivers 10 mg 2-05 by mouth ity of tablet 16:55: daily. [address] budesonide- 2021-02 Yes 2{puff} Inhale 2 Univers formoteroL 2-05 Puffs as ity o f (SYMBICORT) 16:55: needed. [place] as 160-4.5 57 Medical mcg/actuati Branch on inhaler lisinopriL 2021-02 Yes 10mg Take 10 mg U nivers 10 mg 2-05 by mouth ity of tablet 16:55: daily. [address] budesonide- 2021-02 Yes 2{puff} Inhale 2 Univers formoteroL 2-05 Puffs as ity o f (SYMBICORT) 16:55: needed. [place] as 160-4.5 57 Medical mcg/actuati Branch on inhaler topiramate 2021-02 Yes [id number] 25mg Take 1 U nivers 25 mg 2-05 tablet by ity of tablet 00:00: mouth 2 [place] [address] (two) Medical times Branch daily. acetaZOLAMI 2021-02 Yes [id number] 500mg Take 2 Univers DE 250 mg 2-05 tablets by ity of tablet 00:00: mouth 3 [place] 00 (three) Medical times [facility] daily. melatonin 3 2021-02 Yes [id number] 3mg Take 1 Univers mg tablet 2-05 tablet by ity o f 00:00: mouth at [place] [address] bedtime. Medical Branch topiramate 2021-02 Yes [id number] 25mg Take 1 U nivers 25 mg 2-05 tablet by ity of tablet 00:00: mouth 2 [place] (two) Medical times [facility] daily. acetaZOLAMI 2021-02 Yes [id number] 500mg Take 2 Univers DE 250 mg 2-05 tablets by ity of tablet 00:00: mouth 3 [place] (three) Medical times [facility] daily. melatonin 2021-02 Yes [id number] 3mg Take 1 Univers mg tablet 2-05 tablet by ity o f 00:00: mouth at [place] [address] bedtime. Medical Branch melatonin 2021-02 Yes 3mg 3 mg, Univers (MELATIN) 2-04 Oral, QHS, ity of tablet 3 mg 03:00: First dose [place] 00 on [facility] 01/15/22 at Branch 2100, Until Discontinu ed, Routine hydrOXYzine 2021-02- No 25mg 25 mg, Uni vers (ATARAX) 2 12-04 Oral, ity of tablet 25 00:00: 00:44 ONCE, 1 [place] mg 00 :00 dose, On Medical [facility] 01/15/22 at 1800, Routine NaCl 0.9% 2021-02 No 500mL at 150 Univ ers (NS) IV 03-18 12-03 mL/hr, IV ity of infusion 20:00: 23:00 Infusion, [place] as 500 mL 00 :00 ONCE, 1 Medical dose, On Branch [facility] 01/15/22 at 1400, Routine topiramate 2021-02 Yes 25mg 25 mg, Unive rs (TOPAMAX) 2-03 Oral, BID, ity of tablet 25 19:30: [place] dose [place] mg 00 on [facility] 01/15/22 at Branch 1330, Until Discontinu ed, Routine
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 Restricted medication : JONES PHIPPS traMADoL 2021-02 Yes 50mg 50 mg, Univers (ULTRAM) 2-03 Oral, ity of tablet 50 16:09: Q6HPRN, [place] mg 31 Starting Medical on [facility] Branch 01/15/22 at 1009, Until Discontinu ed, Routine, Pain (scale 7-10) iopamidol 2021-02- No [id number] 80mL 80 mL, Univers (ISOVUE 03-18 Intravenou ity o f 370-500 mL) 03:15: 03:30 s, ONCE, 1 [place] injection 00 :00 dose, On Medica l 80 mL Fri Branch 01/14/22 at 2130, Routine sodium 2021-02 Yes Slow IV Univers bicarbonate 03-17 Push, PRN, it y of 8.4 % (1 18:22: Starting [place] mEq/mL) 21 on Fri Medical injection 01/14/22 at [facility] 1222, Until Discontinu ed, Routine lidocaine 2021-02 Yes PRN, Univers 1% (PF) 02 Starting ity of (XYLOCAINE) 18:21: on Fri [place] injection 43 01/14/22 at Medi charles 1221, Branch Until Discontinu ed, Routine lisinopriL 2021-02 Yes 10mg 10 mg, Unive rs (PRINIVIL,Z 2 Oral, ity of ESTRIL) 16:30: DAILY, [place] tablet 10 00 First dose [facility] charles mg on [facility] Branch 01/13/22 at 1030, Until Discontinu ed, Routine traMADoL 2021-02- No 50mg 50 mg, Univer s (ULTRAM) 201-15 Oral, ity of tablet 50 11:48: 11:47 Q8HPRN, [place] mg 15 :15 Starting Medical on [facility] Branch 01/13/22 at 0548, Until 01/15/22 at 0547, Routine, Pain (scale 4-6) lisinopriL 2021-02 Yes 10mg Take 10 mg U nivers 10 mg 1-30 by mouth ity of tablet 21:44: daily. [address] budesonide- 2021-02 Yes 2{puff} Inhale 2 Univers formoteroL 1-30 Puffs as ity o f (SYMBICORT) 21:44: needed. [place] as 160-4.[address] [place] [address]/actuati Branch on inhaler acetaZOLAMI 2022-1 Yes 500mg 500 mg, Un harriet DE (DIAMOX) 03-14 Oral, BID, it y of tablet 500 20:30: First dose [place] mg 00 on Mon01/12/22 Branch at 1430, Until Discontinu ed, Routine docusate 2021-02 Yes 100mg 100 mg, Unive rs (COLACE) 03-13 Oral, ity of capsule 100 15:00: DAILY, [place] mg 00 First dose Medical on Mon01/11/22 at 0900, Until Discontinu ed, Routine enoxaparin 2021-02 Yes 40mg 40 [facility], [facility] (L[facility] 03-13 Subcutaneo ity of injection 15:00: [place], DAILY, [place] 40 mg 00 First dose Medical on Mon01/11/22 at 0900, Until Discontinu ed, Routine predniSONE 2021-02- No 10mg 10 mg, Univ ers (DELTASONE) 03-13 Oral, BID, i ty of tablet 10 15:00: 03:22 6 doses, [place] as mg 00 :00 First dose Medical on Mon01/11/22 at 0900, Last dose on Mon01/13/22 at 2000, Routine budesonide- 2021-02- No 2{puff} 2 Puff, [facility] formoteroL 03-13 Inhalation it y of (SYMBICORT) 14:00: 13:59 , BID, 5 [place] 160-4.5 00 :00 doses, Medical mcg/actuati First dose Br anch on inhaler on Mon 2 Puff 01/11/22 at 0800, Last dose on Mon01/13/22 at 0800, Routine butalbital- 2021-02- No 1{tbl} 1 tablet, [facility] acetaminoph 03-13 Oral, ity of en-caff 13:53: 16:09 [facility] [place] (ESGIC) 37 :42 Starting Medical 50-325-40 on Mon mg tablet 1 01/11/22 tablet at 0753, Until 01/15/22 at 1009, Routine, [place] ipratropium 2021-02- No 3mL 3 mL, [facility] ers -albuteroL 03-1304 Inhalation it y of (DUONEB) 12:00: 11:59 , Q6H, 20 [place] as 0.5 mg-3 00 :00 doses, Medical mg(2.5 mg First dose Bran ch base)/3 mL on [facility] nebulizer 01/11/22 solution 3 at 0600, mL Last dose on 01/16/22 at 0000, Routine ondansetron 2021-02 Yes 4mg 4 mg, Slow Univers (ZOFRAN 03-13 IV Push, ity of (PF)) 09:08: Q6HPRN, [place] injection 4 23 Starting Medi chrales mg on Mon Branch 01/11/22 at 0308, Until Discontinu ed, Routine, Nausea and Vomiting (N/V) morpHINE (2 2021-02- No 2mg 2 mg, Slow Univers mg/mL) 03-13 IV Push, ity of injection 2 09:08: 09:07 Q4HPRN, [place] mg 10 :10 Starting Medical on Mon01/11/22 at 0308, Until Mon01/12/22 at 0307, Routine, Pain (scale 7-10) acetaminoph 2021-02 Yes 650mg 650 mg, Un harriet en 03-13 Oral, ity of (TYLENOL) 09:07: Q6HPRN, [place] tablet 650 58 Starting Medic al mg on Mon Branch 01/11/22 at 0307, Until Discontinu ed, Routine, Pain (scale 1-3) ketorolac 2021-02- No 30mg 30 mg, Unive rs (TORADOL) 03-13 Slow IV ity of injection 05:00: 04:32 Push, [place] 30 mg 00 :00 ONCE, 1 Medical dose, On Branch Mon01/10/22 at 2300, Routine NaCl 0.9% 2021-02- No 500mL at 999 Univ ers (NS) bolus 03-13 mL/hr, 500 it y of infusion 04:15: 05:00 mL, IV [place] 500 mL 00 :00 Infusion, Medical ONCE, 1 Branch dose, On Mon01/10/22 at 2215, STAT iopamidol 2021-02- No [id number] 100mL 100 mL, Univers (ISOVUE 03-13 Intravenou ity o f 370-500 mL) 04:15: 04:15 s, ONCE, 1 [place] injection 00 :00 dose, On Medica l [address] [facility] 01/10/22 at 2215, Routine acetaminoph 2021-02 No 975mg 975 mg, U nivers en 03-13 Oral, ity of (TYLENOL) 02:30: 01:28 ONCE, 1 [place] tablet 975 00 :00 dose, On Medic al mg [facility] 01/10/22 at 2030, LOGAN metoclopram 2021-02- No 10mg 10 mg, Uni vers young HCl 03-13 Slow IV ity of (REGLAN) 01:30: 01:28 Push, [place] injection 00 :00 ONCE, 1 Medical 10 mg dose, On [facility] 01/10/22 at 1930, LOGAN hydroCHLORO 2021- No [id number] 25mg Take 1 Univers thiazide 25 8-20 09-20 tablet by it y of mg tablet 00:00: 04:59 mouth [place] 00 :00 daily for Medical 30 days. Branch lisinopriL 2021- No [id number] 40mg Take 1 Univers 40 mg 8-20 09-20 tablet by ity of tablet 00:00: 04:59 mouth [place] 00 :00 daily for Medical 30 days. Branch loratadine 2021- No [id number] 10mg Take 1 Univers 10 mg 8-20 09-20 tablet by ity of tablet 00:00: 04:59 mouth [place] 00 :00 daily for Medical 30 days. Branch montelukast 2021- No [id number] 10mg Take 1 Univers 10 mg 8-20 09-20 tablet by ity of tablet 00:00: 04:59 mouth [place] 00 :00 daily for Medical 30 days. Branch predniSONE 2021- No [id number] 40mg Take 2 Univers 20 mg 8-20 08-26 tablets by ity of tablet 00:00: 04:59 mouth [place] 00 :00 daily for Medical 5 days. Branch sulfur 2021- No [id number] 5mL 5 mL, Univ ers hexafluorid 10-01- Intravenou i ty of e microsphr 16:15: 16:15 s, ONCE, 1 [place] (LUMASON) 00 :00 dose, On Medica l injection 5 Mon Branch mL 10/01/21 at 1115, Routine
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 Restricted medication : JADEN MEDINA amLODIPine 2021-0 2021- No 10mg Take 10 mg Univers 10 mg 10-01 by mouth ity of tablet 14:41: 00:00 daily. [place] 48 :00 Medical Branch loratadine 2021-0 2021- No 10mg Take 10 mg Univers 10 mg 10-01 by mouth ity of tablet 14:41: 00:00 daily. [place] 48 :00 Medical Branch hydroCHLORO 2021-0 2021- No 12.5mg Take 12.5 Univers thiazide 10-01 mg by ity of 12.5 mg 14:41: 00:00 mouth [place] tablet 48 :00 daily. Medical Unsure on Branch the dosage she takes metFORMIN 2021-0 2021- No 500mg Take 500 Un harriet 500 mg 10-01 mg by ity of tablet 14:41: 00:00 mouth 2 [place] 48 :00 (two) Medical times Branch daily with meals. montelukast 2021-0 Yes 10mg 10 mg, Univ ers (SINGULAIR) 8- Oral, ity of tablet 10 14:00: DAILY, [place] mg 00 First dose Medical on Mon Branch 10/01/21 at 0900, Until Discontinu ed, Routine lisinopriL 2021-0 Yes 40mg 40 mg, Unive rs (PRINIVIL,Z - Oral, ity of ESTRIL) 14:00: DAILY, [place] tablet 40 00 First dose Medi charles mg (after Branch last modificati on) on Mon10/01/21 at 0900, Until Discontinu ed, Routine predniSONE 2021-0 Yes 40mg 40 mg, Unive rs (DELTASONE) 8-19 Oral, ity of tablet 40 14:00: DAILY, [place] mg 00 First dose Medical on Mon Branch 10/01/21 at 0900, Until Discontinu ed, Routine loratadine 2021-0 Yes 10mg 10 mg, Unive rs (CLARITIN) 8-19 Oral, ity of tablet 10 14:00: DAILY, [place] mg 00 First dose Medical on Mon Branch 10/01/21 at 0900, Until Discontinu ed, Routine hydroCHLORO 2021-0 Yes 25mg 25 mg, Univ ers thiazide 10-01 Oral, ity of (ESIDRIX) 14:00: DAILY, [place] tablet 25 00 First dose Medi charles mg on Mon Branch 10/01/21 at 0900, Until Discontinu ed, Routine enoxaparin 2021-0 Yes 40mg 40 mg, Unive [...] Discontinu ed, Routine Sliding 2021-0 Yes Subcutaneo [facility] ers Scale 10-01 us, TID ity of Insulin - 02:00: MEALS+HS, [place]ike as Lispro 00 First dose Medical (HumaLOG) + on [place] Branch [facility] 09/30/21 at Testing 2100, Until Discontinu ed, Routine traMADoL 2021-0 Yes 50mg 50 mg, Univers (ULTRAM) 10-01 Oral, ity of tablet 50 01:32: Q6HPRN, [place] mg 26 Starting Medical on [place] Branch 09/30/21 at 2031, Until Discontinu ed, Routine, Pain (scale 7-10) acetaminoph 0 Yes 650mg 650 mg, Un harriet en 10-01 Oral, ity of (TYLENOL) 01:32: Q6HPRN, [place] tablet 650 02 Starting Medic al mg on [place] Branch 09/30/21 at 2031, Until Discontinu ed, Routine, Pain (scale 4-6) glucagon 2021-0 Yes 1mg 1 mg, Univers (GLUCAGEN 10-01 Intramuscu ity of DIAGNOSTIC 01:23: lar, PRN, [place] KIT) 10 Starting Medical injection 1 on [facility] Branch mg 09/30/21 at 3, Until Discontinu ed, LOGAN, Blood Glucose < or = 70 mg/dL and patient is unable to swallow or has mental changes. dextrose 50 2021-0 Yes 25mL 25 mL, Univ ers % in water 10-01 Slow IV ity of (D50W) 01:23: Push, PRN, [place] injection 10 Starting Medica l 25 mL on [place] Branch 09/30/21 at 2022, Until Discontinu ed, LOGAN, Blood Glucose < or = 70 mg/dL and patient is unable to swallow or has mental status changes. diphenhydrA 0 Yes 25mg 25 mg, Univ ers MINE - Oral, ity of (BENADRYL) 01:10: Q6HPRN, [place] tablet 25 16 Starting Medica l mg on [place] Branch 09/30/21 at 2009, Until Discontinu ed, Routine, Itching, Mild Rash ipratropium 2021-0 Yes 3mL 3 mL, Unive rs -albuteroL 10-01 Inhalation ity of (DUONEB) 01:00: , Q4H, [place] 0.5 mg-3 00 First dose Medic al mg(2.5 mg on [facility] Branch base)/3 mL 09/30/21 at nebulizer 1999, solution 3 Until mL Discontinu ed, Routine Budesonide 2021-0 Yes [id number] 2{puff} Inhale 2 Univers 180 8-19 Puffs 2 ity of mcg/actuati 00:00: (two) [place] on aerosol 00 times Medical powder daily. Branch diphenhydrA 0 Yes [id number] 25mg Take 1 Univers MINE 25 mg 8-19 tablet by ity of tablet 00:00: mouth [place] 00 every 6 Medical (six) Branch hours as needed for Itching or Allergies. Budesonide 2021-0 Yes [id number] 2{puff} Inhale 2 Univers 180 8-19 Puffs 2 ity of mcg/actuati 00:00: (two) [place] on aerosol 00 times Medical powder daily. Branch diphenhydrA 2021-0 Yes [id number] 25mg Take 1 Univers MINE 25 mg 8-19 tablet by ity of tablet 00:00: mouth [place] 00 every 6 Medical (six) Branch hours as needed for Itching or Allergies. diphenhydrA 2021-0 Yes [id number] 25mg Take 1 Univers MINE 25 mg 8-19 tablet by ity of tablet 00:00: mouth [place] 00 every 6 Medical (six) Branch hours as needed for Itching or Allergies. metFORMIN 2021- No [id number] 500mg Take 1 Univers 500 mg 10-01 tablet by ity of tablet 00:00: 04:59 mouth 2 [place] 00 :00 (two) Medical times Branch daily with meals for 30 days. ipratropium 2021- No 3mL 3 mL, Univ ers -albuteroL 09-30 Inhalation it y of (DUONEB) 23:30: 22:37 , ONCE, 1 [place] as 0.5 mg-3 00 :00 dose, On Medical mg(2.5 mg [place] Branch base)/3 mL 09/30/21 at nebulizer 1830, solution 3 Routine mL albuterol Yes 2.5mg 2.5 mg, [facility] ers (PROVENTIL) 09-30 Inhalation it y of 2.5 mg /3 23:25: , Q2HPRN, [place] as mL (0.083 56 Starting Medica l %) on [facility] nebulizer 09/30/21 at solution 1825, 2.5 mg Until Discontinu ed, Routine, Shortness of Breath, Wheezing budesonide Yes .5mg 0.5 mg, [facility] ers (PULMICORT 09-30 Inhalation ity of RESPULE) 23:15: , DAILY, [place] nebulizer 00 First dose Medi charles solution on [facility] Branch 0.5 mg 09/30/21 at 1815, Until Discontinu ed, Routine acetaminoph Yes 650mg 650 mg, Un harriet en 09-30 Oral, ity of (TYLENOL) 23:04: Q6HPRN, [place] tablet 650 08 Starting Medic al mg on [facility] Branch 09/30/21 at 1804, Until Discontinu ed, Routine, Pain (scale 1-3) ipratropium 2021- No 3mL 3 mL, Univ [...] of D5W 1 22:00: 22:22 ONCE, 1 [place] gram/100 mL 00 :00 dose, On [facility] RTU IV [place] Branch Piggyback 1 09/30/21 at g 1700, Administer over 60 Minutes, 100 mL ipratropium 2021- No 3mL 3 mL, Univ [...] of succ 21:00: 21:00 s, ONCE, 1 [place] (SOLU-MEDRO 00 :00 dose, On [facility] L (PF)) [place] Branch injection 09/30/21 at 125 mg 1600, LOGAN Dose 2021-0 No Unknown 8-11 00:00: 00 Dose 2021-0 No Unknown 8-11 00:00: 00 Dose 2021-0 No Unknown 8-11 00:00: 00 Dose 2021-0 No Unknown 8-11 00:00: 00 albuterol 0 2021- No 7.5mg 7.5 mg, Uni vers (PROVENTIL) 09-09 Inhalation i ty of 2.5 mg /3 05:15: 04:28 , ONCE, 1 [place] mL (0.083 00 :00 dose, On Medica l %) [place] Branch nebulizer 09/09/21 at solution 0015, STAT 7.5 mg albuterol 0 2021- No 7.5mg 7.5 mg, Uni vers (PROVENTIL) 09-09 Inhalation i ty of 2.5 mg /3 03:45: 03:07 , ONCE, 1 [place] mL (0.083 00 :00 dose, On Medica l [facility] Branch nebulizer 09/08/21 at solution 2245, STAT [...] Routine, IV line flushing predniSONE 2021-0 Yes [id number] Take 1 Univers 20 mg 7-28 tablet by ity of tablet 00:00: mouth [place] 00 daily Medical until gone Branch albuterol Yes [id number] 2{puff} Inhale 2 Univers 90 7-28 Puffs ity of mcg/actuati 00:00: every 4 [place]ike as on inhaler 00 (four) Medical hours as Branch needed for Wheezing or Shortness of Breath. predniSONE 2021-0 2021- No [id number] Take 1 Univers 20 mg 7-28 08-19 tablet by ity of tablet 00:00: 00:00 mouth [place] 00 :00 daily Medical until gone Branch albuterol 2021-0 202- No [id number] 2{puff} Inhale 2 Univers 90 7-28 08-19 Puffs ity of mcg/actuati 00:00: 00:00 every 4 [place] on inhaler 00 :00 (four) Medical hours as Branch needed for Wheezing or Shortness of Breath. Dose 2021-0 No Unknown 08-19 00:00: 00 Dose 2021-0 No Unknown 08-19 00:00: 00 Dose 2021-0 No Unknown 7-07 00:00: 00 Dose 2022-0 No Unknown 7-07 00:00: 00 Dose 2022-0 No Unknown 7-07 00:00: 00 Dose 2022-0 No Unknown 7-07 00:00: 00 Dose 2022-0 No Unknown 7-07 00:00: 00 Dose 2022-0 No Unknown 7-07 00:00: 00 Dose 2022-0 No Unknown 7-07 00:00: 00 Dose 2022-0 No Unknown 7-07 00:00: 00 Dose 2022-0 No Unknown 7-06 00:00: 00 Dose 2022-0 No Unknown 7-06 00:00: 00 TAKE 1 2022-0 No 500 TABLET 7-06 TWICE DAILY 00:00: WITH FOOD. 00 Dose 2022-0 No Unknown 7-06 00:00: 00 Dose 2022-0 No Unknown 7-06 00:00: 00 TAKE 1 2022-0 No 500 TABLET 7-06 TWICE DAILY 00:00: WITH FOOD. 00 Dose 2022-0 No Unknown 7-06 00:00: 00 Dose 2022-0 No Unknown 7-06 00:00: 00 TAKE 1 2022-0 No 500 TABLET 7-06 TWICE DAILY 00:00: WITH FOOD. 00 Dose 2022-0 No Unknown 7-06 00:00: 00 Dose 2022-0 No Unknown 7-06 00:00: 00 Dose 2022-0 No Unknown 7-06 00:00: 00 TAKE 1 2022-0 No 500 TABLET 7-06 TWICE DAILY 00:00: WITH FOOD. 00 Dose 2022-0 No Unknown 7-06 00:00: 00 TAKE 1 2022-0 No 500 TABLET 7-06 TWICE DAILY 00:00: WITH FOOD. 00 amlodipine 2022-0 No 1mg 10 mg 6-18 tablet 00:00: 00 hydrochloro 2022-0 No 1mg thiazide 6-18 12.5 mg 00:00: tablet 00 Dose 2022-0 No Unknown 6-18 00:00: 00 hydrochloro 2022-0 No 1mg thiazide 6-18 12.5 mg 00:00: tablet 00 Dose 2022-0 No Unknown 6-18 00:00: 00 Dose 2022-0 No Unknown 6-18 00:00: 00 amlodipine 2022-0 No 1mg 10 mg 6-18 tablet 00:00: 00 hydrochloro 2022-0 No 1mg thiazide 6-18 12.5 mg 00:00: tablet 00 Dose 2-0 No Unknown 6-18 00:00: 00 Dose 2022-0 No Unknown 6-18 00:00: 00 Symbicort 2-0 No 2mcg/ac 160 mcg-4.5 5-09 tuation mcg/actuati 00:00: on HFA 00 aerosol inhaler ProAir HFA 2021-0 No 12mcg/a 90 5-09 ctuatio mcg/actuati 00:00: n on aerosol 00 inhaler loratadine 2-0 No 1mg 10 mg 5-09 tablet 00:00: 00 amlodipine 2-0 No 1mg 10 mg 5-09 tablet 00:00: 00 hydrochloro 2-0 No 1mg thiazide 25 5-09 mg tablet 00:00: 00 lisinopril 2-0 No 1mg 40 mg 5-09 tablet 00:00: 00 ipratropium 2-0 No 3mg 0.5 5-09 base)/3 mg-albutero 00:00: mL l 3 mg (2.5 00 mg base)/3 mL nebulizatio n soln INHALE 2 2021-0 No PUFFS TWICE 5-09 DAILY. 00:00: RINSE MOUTH 00 AFTER USE. ProAir HFA 2-0 No 12mcg/a 90 5-09 ctuatio mcg/actuati 00:00: n on aerosol 00 inhaler loratadine 2-0 No 1mg 10 mg 5-09 tablet 00:00: 00 Dose 2022-0 No Unknown 5-09 00:00: 00 hydrochloro 2022-0 No 1mg thiazide 25 5-09 mg tablet 00:00: 00 lisinopril 2022-0 No 1mg 40 mg 5-09 tablet 00:00: 00 ipratropium 2022-0 No 3mg 0.5 5-09 base)/3 mg-albutero 00:00: mL l 3 mg (2.5 00 mg base)/3 mL nebulizatio n soln INHALE 2 2021-0 No PUFFS TWICE 5-09 DAILY. 00:00: RINSE MOUTH 00 AFTER USE. Dose 2-0 No Unknown 5-09 00:00: 00 loratadine 2-0 No 1mg 10 mg 5-09 tablet 00:00: 00 hydrochloro 2-0 No 1mg thiazide 25 5-09 mg tablet 00:00: 00 lisinopril 2-0 No 1mg 40 mg 5-09 tablet 00:00: 00 Dose 2022-0 No Unknown 5-09 00:00: 00 Dose 2022-0 No Unknown 5-09 00:00: 00 Symbicort 2-0 No 2mcg/ac 160 mcg-4.5 -09 tuation mcg/actuati 00:00: on HFA 00 aerosol inhaler ProAir HFA 2021-0 No 12mcg/a 90 -09 ctuatio mcg/actuati 00:00: n on aerosol 00 inhaler loratadine 2-0 No 1mg 10 mg 5-09 tablet 00:00: 00 amlodipine 2-0 No 1mg 10 mg 5-09 tablet 00:00: 00 hydrochloro 2-0 No 1mg thiazide 25 5-09 mg tablet 00:00: 00 lisinopril 2-0 No 1mg 40 mg 5-09 tablet 00:00: 00 ipratropium 2-0 No 3mg 0.5 5-09 base)/3 mg-albutero 00:00: mL l 3 mg (2.5 00 mg base)/3 mL nebulizatio n soln INHALE 2 2021-0 No PUFFS TWICE 5-09 DAILY. 00:00: RINSE MOUTH 00 AFTER USE. Dose 2-0 No Unknown 5-09 00:00: 00 loratadine 2-0 No 1mg 10 mg 5-09 tablet 00:00: 00 hydrochloro 2-0 No 1mg thiazide 25 5-09 mg tablet 00:00: 00 lisinopril 2022-0 No 1mg 40 mg 5-09 tablet 00:00: 00 Dose 2022-0 No Unknown 5-09 00:00: 00 Dose 2022-0 No Unknown 5-09 00:00: 00 Dose 2022-0 No Unknown 5-07 00:00: 00 Dose 2022-0 No Unknown 5-07 00:00: 00 Dose 2022-0 No Unknown 5-07 00:00: 00 Dose 2022-0 No Unknown 5-07 00:00: 00 Dose 2022-0 No Unknown 5-07 00:00: 00 Dose 2022-0 No Unknown 5-07 00:00: 00 Dose 2022-0 No Unknown 5-07 00:00: 00 Dose 2022-0 No Unknown 5-07 00:00: 00 Dose 2022-0 No Unknown 5-07 00:00: 00 Dose 2022-0 No Unknown 5-07 00:00: 00 Dose 2022-0 No Unknown 5-07 00:00: 00 Dose 2022-0 No Unknown 5-07 00:00: 00 Dose 2022-0 No Unknown 5-07 00:00: 00 Dose 2022-0 No Unknown 5-07 00:00: 00 Dose 2022-0 No Unknown 5-07 00:00: 00 Dose 2022-0 No Unknown 5-06 00:00: 00 Dose 2022-0 No Unknown 5-06 00:00: 00 Dose 2022-0 No Unknown 5-06 00:00: 00 Dose 2022-0 No Unknown 5-06 00:00: 00 Dose 2022-0 No Unknown 5-06 00:00: 00 Dose 2022-0 No Unknown 5-06 00:00: 00 Dose 2022-0 No Unknown 5-06 00:00: 00 Dose 2022-0 No Unknown 5-06 00:00: 00 Dose 2022-0 No Unknown 5-06 00:00: 00 Dose 2022-0 No Unknown 5-06 00:00: 00 Dose 2022-0 No Unknown 5-06 00:00: 00 Dose 2022-0 No Unknown 5-06 00:00: 00 Dose 2022-0 No Unknown 5-06 00:00: 00 Dose 2022-0 No Unknown 5-06 00:00: 00 Dose 2022-0 No Unknown 5-06 00:00: 00 Dose 2022-0 No Unknown 5-06 00:00: 00 Dose 2022-0 No Unknown 5-06 00:00: 00 Dose 2022-0 No Unknown 5-06 00:00: 00 Dose 2022-0 No Unknown 5-06 00:00: 00 Dose 2022-0 No Unknown 5-06 00:00: 00 Dose 2022-0 No Unknown 5-06 00:00: 00 Dose 2022-0 No Unknown 5-06 00:00: 00 Dose 2022-0 No Unknown 5-06 00:00: 00 Dose 2022-0 No Unknown 5-06 00:00: 00 Dose 2022-0 No Unknown 5-06 00:00: 00 Symbicort 2022-0 No 2mcg/ac 160 mcg-4.5 2-01 tuation mcg/actuati 00:00: on HFA 00 aerosol inhaler ProAir HFA 2-0 No 12mcg/a 90 2-01 ctuatio mcg/actuati 00:00: n on aerosol 00 inhaler Dose 2022-0 No Unknown 2-01 00:00: 00 lisinopril 2022-0 [...] 00:00: n on aerosol 00 inhaler Dose 2022-0 No Unknown 2-01 00:00: 00 lisinopril 2022-0 [...] n 50 mg 2-01 capsule 00:00: 00 Dose 2022-0 No Unknown 2-01 00:00: 00 Symbicort 2022-0 No 2mcg/ac 160 [...] mg 20 mg 2-01 tablet 00:00: 00 Symbicort 2022-0 No 2mcg/ac 160 mcg-4.5 2-01 tuation mcg/actuati 00:00: on HFA 00 aerosol inhaler ProAir HFA 2022-0 No 12mcg/a 90 2-01 ctuatio mcg/actuati 00:00: n on aerosol 00 inhaler Dose 2-0 No Unknown 2-01 00:00: 00 lisinopril 2022-0 No 1mg 40 mg 2-01 tablet 00:00: 00 hydrochloro 2022-0 No 1mg thiazide 25 2-01 mg tablet 00:00: 00 prednisone 2022-0 No mg 20 mg 2-01 tablet 00:00: 00 amlodipine 2022-0 No 1mg 10 mg 2-01 tablet 00:00: 00 Dose 2022-0 No Unknown 2-01 00:00: 00 Dose 2022-0 No Unknown 2-01 00:00: 00 Dose 2022-0 No Unknown 2-01 00:00: 00 methotrexat 2-0 No 6mg e sodium 2-01 2.5 mg 00:00: tablet 00 prednisone 2022-0 No mg 20 mg 2-01 tablet 00:00: 00 Dose 2022-0 No Unknown 2-01 00:00: 00 Dose 2022-0 No Unknown 2-01 00:00: 00 indomethaci 2-0 No 1mg n 50 mg 2-01 capsule 00:00: 00 Dose 2-0 No Unknown 2-01 00:00: 00 indomethaci 2022-0 No 1mg n 50 mg 2-01 capsule 00:00: 00 indomethaci 2022-0 No 1mg n 50 mg 2-01 capsule 00:00: 00 Symbicort 2-0 No 2mcg/ac 160 [...] 2-01 00:00: 00 Dose 2022-0 No Unknown 2- 00:00: 00 methotrexat 2-0 No 6mg e sodium 2-01 2.5 mg 00:00: tablet 00 prednisone 2-0 No mg 20 mg 2-01 tablet 00:00: 00 Dose 2-0 No Unknown 2- 00:00: 00 Dose 2-0 No Unknown 2-01 00:00: 00 indomethaci 2-0 No 1mg n 50 mg 2-01 capsule 00:00: 00 Dose 2-0 No Unknown 2-01 00:00: 00 Symbicort 2020-1 No 2mcg/ac 160 mcg-4.5 0-18 tuation mcg/actuati 00:00: on HFA 00 aerosol inhaler ProAir HFA 2020- No 1mcg/ac 90 0-18 tuation mcg/actuati 00:00: on aerosol 00 inhaler hydrochloro 2020- No 1mg thiazide 25 0-18 mg tablet 00:00: 00 amlodipine 2020-1 No 1mg 10 mg 0-18 tablet 00:00: 00 lisinopril 2020-1 No 1mg 20 mg 0-18 tablet 00:00: 00 Symbicort 2020-1 No 2mcg/ac 160 mcg-4.5 0-18 tuation mcg/actuati 00:00: on HFA 00 aerosol inhaler ProAir HFA 1 No 1mcg/ac 90 0-18 tuation mcg/actuati 00:00: on aerosol 00 inhaler hydrochloro 2020-1 No 1mg thiazide 25 0-18 mg tablet 00:00: 00 amlodipine 2020-1 No 1mg 10 mg 0-18 tablet 00:00: 00 lisinopril 2020-1 No 1mg 20 mg 0-18 tablet 00:00: 00 Symbicort 2020-1 No 2mcg/ac 160 mcg-4.5 0-18 tuation mcg/actuati 00:00: on HFA 00 aerosol inhaler ProAir HFA 1 No 1mcg/ac 90 0-18 tuation mcg/actuati 00:00: on aerosol 00 inhaler hydrochloro 2020-1 No 1mg thiazide 25 0-18 mg tablet 00:00: 00 amlodipine 2020-1 No 1mg 10 mg 0-18 tablet 00:00: 00 lisinopril 2020-1 No 1mg 20 mg 0-18 tablet 00:00: 00 Symbicort 2020-1 No 2mcg/ac 160 mcg-4.5 0-18 tuation mcg/actuati 00:00: on HFA 00 aerosol inhaler ProAir HFA 2020-1 No 1mcg/ac 90 0-18 tuation mcg/actuati 00:00: on aerosol 00 inhaler hydrochloro 2020-1 No 1mg thiazide 25 0-18 mg tablet 00:00: 00 amlodipine 2020-1 No 1mg 10 mg 0-18 tablet 00:00: 00 lisinopril 2020-1 No 1mg 20 mg 0-18 tablet 00:00: 00 Symbicort 2020-1 No 2mcg/ac 160 mcg-4.5 0-18 tuation mcg/actuati 00:00: on HFA 00 aerosol inhaler ProAir HFA 2020-1 No 1mcg/ac 90 0-18 tuation mcg/actuati 00:00: on aerosol 00 inhaler hydrochloro 2020-1 No 1mg thiazide 25 0-18 mg tablet 00:00: 00 amlodipine 2020-1 No 1mg 10 mg 0-18 tablet 00:00: 00 lisinopril 2020-1 No 1mg 20 mg 0-18 tablet 00:00: 00 Symbicort 1-0 No 2mcg/ac 160 mcg-4.5 8-30 tuation mcg/actuati 00:00: on HFA 00 aerosol inhaler Symbicort 1-0 No 2mcg/ac 160 mcg-4.5 8-30 tuation mcg/actuati 00:00: on HFA 00 aerosol inhaler Symbicort 1-0 No 2mcg/ac 160 mcg-4.5 8-30 tuation mcg/actuati 00:00: on HFA 00 aerosol inhaler Symbicort 1-0 No 2mcg/ac 160 mcg-4.5 8-30 tuation mcg/actuati 00:00: on HFA 00 aerosol inhaler Symbicort 1-0 No 2mcg/ac 160 mcg-4.5 8-30 tuation mcg/actuati 00:00: on HFA 00 aerosol inhaler Symbicort 1-0 No 2mcg/ac 160 mcg-4.5 8-27 tuation mcg/actuati 00:00: on HFA 00 aerosol inhaler amlodipine 1-0 No 1mg 10 mg 8-27 tablet 00:00: 00 hydrochloro 1-0 No 1mg thiazide 25 8-27 mg tablet 00:00: 00 Symbicort 1-0 No 2mcg/ac 160 mcg-4.5 8-27 tuation mcg/actuati 00:00: on HFA 00 aerosol inhaler amlodipine 1-0 No 1mg 10 mg 8-27 tablet 00:00: 00 hydrochloro 1-0 No 1mg thiazide 25 8-27 mg tablet 00:00: 00 Symbicort 1-0 No 2mcg/ac 160 mcg-4.5 8-27 tuation mcg/actuati 00:00: on HFA aerosol inhaler amlodipine 1-0 No 1mg 10 mg 8-27 tablet 00:00: 00 hydrochloro 1-0 No 1mg thiazide 25 8-27 mg tablet 00:00: 00 Symbicort 1-0 No 2mcg/ac 160 mcg-4.5 8-27 tuation mcg/actuati 00:00: on HFA aerosol inhaler amlodipine 1-0 No 1mg 10 mg 8-27 tablet 00:00: 00 hydrochloro 1-0 No 1mg thiazide 25 8-27 mg tablet 00:00: 00 Symbicort 1-0 No 2mcg/ac 160 mcg-4.5 8-27 tuation mcg/actuati 00:00: on HFA 00 aerosol inhaler amlodipine 1-0 No 1mg 10 mg 8-27 tablet 00:00: [...] No Unknown 8-05 00:00: 00 Advair HFA 2021-0 No 1mcg/ac 230 mcg-21 8-05 tuation mcg/actuati 00:00: on aerosol 00 inhaler amlodipine 2021-0 No 1mg 5 mg tablet 8 00:00: 00 lisinopril 2021-0 No 1mg 40 mg 8-05 tablet 00:00: 00 hydrochloro 2021-0 No 1mg thiazide 8-05 12.5 mg 00:00: tablet 00 loratadine 2021-0 No 1mg 10 mg 8-05 tablet 00:00: 00 Dose 2021-0 No Unknown 8-05 00:00: 00 Advair HFA 1-0 No 1mcg/ac 230 mcg-21 8-05 tuation mcg/actuati 00:00: on aerosol 00 inhaler amlodipine 1-0 No 1mg 5 mg tablet 09-17 00:00: 00 lisinopril 2021-0 No 1mg 40 mg 8-05 tablet 00:00: 00 hydrochloro 2021-0 No 1mg thiazide 8-05 12.5 mg 00:00: tablet 00 loratadine 1-0 No 1mg 10 mg 8-05 tablet 00:00: 00 Dose 2021-0 No Unknown 8- 00:00: 00 amlodipine 2021-0 No 1mg 5 mg tablet 09-17 00:00: 00 lisinopril 2021-0 No 1mg 40 mg 8-05 tablet 00:00: 00 hydrochloro 2021-0 No 1mg thiazide 8-05 12.5 mg 00:00: tablet 00 loratadine 2021-0 No 1mg 10 mg 8-05 tablet 00:00: 00 Dose 2021-0 No Unknown 8-05 00:00: 00 amlodipine 2021-0 No 1mg 5 mg tablet 8 00:00: 00 lisinopril 2021-0 No 1mg 40 mg 8-05 tablet 00:00: 00 hydrochloro 2021-0 No 1mg thiazide 8-05 12.5 mg 00:00: tablet 00 loratadine 2021-0 No 1mg 10 mg 8-05 tablet 00:00: 00 Dose 2021-0 No Unknown 8-05 00:00: 00 amlodipine 1-0 No 1mg 5 mg tablet 08-25 00:00: 00 amlodipine 1-0 No 1mg 5 mg tablet 08-25 00:00: 00 amlodipine 1-0 No 1mg 5 mg tablet 08-25 00:00: 00 amlodipine 1-0 No 1mg 5 mg tablet 08-25 00:00: 00 amlodipine 1-0 No 1mg 5 mg tablet 08-25 00:00: 00 Advair HFA 2020-0 No 1mcg/ac 230 mcg-21 7-07 tuation mcg/actuati 00:00: on aerosol 00 inhaler levofloxaci 1-0 No 1mg n 500 mg 7-07 tablet 00:00: 00 prednisone 1-0 No mg 20 mg 7-07 tablet 00:00: 00 Bromfed DM 1-0 No 5mg/5 2 mg-30 7-07 mL mg-10 mg/5 00:00: mL oral 00 syrup ipratropium 2020-0 No 3mg 0.5 7-07 base)/3 mg-albutero 00:00: mL l 3 mg (2.5 00 mg base)/3 mL nebulizatio n soln Advair HFA 2020-0 No 1mcg/ac 230 mcg-21 7-07 tuation mcg/actuati 00:00: on aerosol 00 inhaler levofloxaci 1-0 No 1mg n 500 mg 7-07 tablet 00:00: 00 prednisone 1-0 No mg 20 mg 7-07 tablet 00:00: 00 Bromfed DM 1-0 No 5mg/5 2 mg-30 7-07 mL mg-10 mg/5 00:00: mL oral 00 syrup ipratropium 1-0 No 3mg 0.5 7-07 base)/3 mg-albutero 00:00: mL l 3 mg (2.5 00 mg base)/3 mL nebulizatio n soln Advair HFA 2020-0 No 1mcg/ac 230 mcg-21 7-07 tuation mcg/actuati 00:00: on aerosol 00 inhaler levofloxaci 1-0 No 1mg n 500 mg 7-07 tablet 00:00: 00 prednisone 2021-0 No mg 20 mg 7-07 tablet 00:00: 00 Bromfed DM 1-0 No 5mg/5 2 mg-30 7-07 mL mg-10 mg/5 00:00: mL oral 00 syrup ipratropium 1-0 No 3mg 0.5 7-07 base)/3 mg-albutero 00:00: mL l 3 mg (2.5 00 mg base)/3 mL nebulizatio n soln Advair HFA 2020-0 No 1mcg/ac 230 mcg-21 7-07 tuation mcg/actuati 00:00: on aerosol 00 inhaler levofloxaci 1-0 No 1mg n 500 mg 7-07 tablet 00:00: 00 prednisone 1-0 No mg 20 mg 7-07 tablet 00:00: 00 Bromfed DM 1-0 No 5mg/5 2 mg-30 7-07 mL mg-10 mg/5 00:00: mL oral 00 syrup ipratropium 2020-0 No 3mg 0.5 7-07 base)/3 mg-albutero 00:00: mL l 3 mg (2.5 00 mg base)/3 mL nebulizatio n soln Advair HFA 2020-0 No 1mcg/ac 230 mcg-21 7-07 tuation mcg/actuati 00:00: on aerosol 00 inhaler levofloxaci 1-0 No 1mg n 500 mg 7-07 tablet 00:00: 00 prednisone 1-0 No mg 20 mg 7-07 tablet 00:00: 00 Bromfed DM 1-0 No 5mg/5 2 mg-30 7-07 mL mg-10 mg/5 00:00: mL oral 00 syrup ipratropium 1-0 No 3mg 0.5 7-07 base)/3 mg-albutero 00:00: mL l 3 mg (2.5 00 mg base)/3 mL nebulizatio n soln loratadine 1-0 No 1mg 10 mg 6-28 tablet 00:00: 00 albuterol 1-0 No 3/3 mL sulfate 2.5 6-28 (0.083 mg/3 mL 00:00: %) (0.083 %) 00 solution for nebulizatio n loratadine 2021-0 No 1mg 10 mg 6-28 tablet 00:00: 00 albuterol 2021-0 No 3/3 mL sulfate 2.5 6-28 (0.083 mg/3 mL 00:00: %) (0.083 %) 00 solution for nebulizatio n loratadine 2021-0 No 1mg 10 mg 6-28 tablet 00:00: 00 albuterol 2021-0 No 3/3 mL sulfate 2.5 6-28 (0.083 mg/3 mL 00:00: %) (0.083 %) 00 solution for nebulizatio n loratadine 2021-0 No 1mg 10 mg 6-28 tablet 00:00: 00 albuterol 2021-0 No 3/3 mL sulfate 2.5 6-28 (0.083 mg/3 mL 00:00: %) (0.083 %) 00 solution for nebulizatio n loratadine 1-0 No 1mg 10 mg 6-28 tablet 00:00: 00 albuterol 2021-0 No 3/3 mL sulfate 2.5 6-28 (0.083 mg/3 mL 00:00: %) (0.083 %) 00 solution for nebulizatio n methylPREDN 1-0 Yes [id number] Take by [facility] ISolone 4 6-15 mouth ity of mg tablets 00:00: [place]INSTRU [place] 00 CTIONS. Medical follow Branch package directions methylPREDN 1-0 Yes [id number] Take by [facility] ISolone 4 6-15 mouth ity of mg tablets 00:00: [place]INSTRU [place] 00 CTIONS. Medical follow Branch package directions methylPREDN 1-0 Yes [id number] Take by [facility] ISolone 4 6-15 mouth ity of mg tablets 00:00: [place]-INSTRU [place] 00 CTIONS. Medical follow Branch package directions methylPREDN 1-0 2022- No [id number] Take by [facility] ISolone 4 6-15 08-19 mouth ity of mg tablets 00:00: 00:00 SEE-INSTRU [place] 00 :00 CTIONS. Medical follow Branch package directions methylPREDN 2021-0 Yes 40mg 40 mg, Univ ers ISolone sod 07-27 Intravenou it y of succ 19:00: s, Q8H, [place] (SOLU-MEDRO 00 First dose Me dical L (PF)) on [facility] Branch injection 07/27/20 at 40 mg 1400, Until Discontinu ed, Routine iopamidol 2020-0 202- No [id number] 100mL 100 mL, Univers (ISOVUE 07-27-14 Intravenou ity o f 370-500 mL) 16:30: 15:12 s, ONCE, 1 [place] injection 00 :00 dose, Mon Medic al 100 mL 07/27/20 at Branch 1130, Routine lisinopriL 2020-0 Yes 40mg 40 mg, Unive rs (PRINIVIL,Z - Oral, ity of ESTRIL) 14:00: DAILY, [place] tablet 40 00 First dose Medi charles mg on [facility] Branch 07/27/20 at 0900, Until Discontinu ed hydroCHLORO 0 Yes 12.5mg 12.5 mg, [facility] thiazide 07-27 Oral, ity of (ESIDRIX) 14:00: DAILY, [place] capsule 00 First dose Medica l 12.5 mg on [facility] Branch 07/27/20 at 0900, Until Discontinu ed, Routine ipratropium 0 Yes 3mL 3 mL, Unive rs -albuteroL 07-27 Inhalation ity of (DUONEB) 13:00: , QID, [place] 0.5 mg-3 00 First dose Medic al mg(2.5 mg on Mon [facility] base)/3 mL 07/27/20 at nebulizer 0800, solution 3 Until mL Discontinu ed, Routine enoxaparin 0 Yes 40mg 40 mg, Unive rs (LOVENOX) 14 Subcutaneo ity of injection 13:00: us, Q12H, [place] 40 mg [address] [facility] 07/27/20 at 0800, Until Discontinu ed, Routine docusate 2020-0 Yes 100mg 100 mg, Unive rs (COLACE) -14 Oral, ity of capsule 100 10:20: QDAILYPRN, [place] mg [address] [facility] 07/27/20 at 0520, Until Discontinu ed, Routine, Constipati on HYDROcodone 2020- No 1{tbl} 1 tablet, Univers -acetaminop 07-27 Oral, ity of hen (NORCO 10:20: 10:19 Q6HPRN, [place] 5) 5-325 mg 07 :07 Starting Medi charles tablet 1 Mon [facility] tablet 07/27/20 at 0520, Until 07/29/20 at 0519, Routine, Pain (scale 4-6) acetaminoph Yes 650mg 650 mg, Un harriet en 07-27 Oral, ity of (TYLENOL) 10:19: Q6HPRN, [place] tablet 650 59 Starting Medic al mg Mon Branch 07/27/20 at 0519, Until Discontinu ed, Routine, Pain (scale 1-3), Temp > 38.5 C albuterol 2020- No 5mg 5 mg, Univer s (PROVENTIL) 07-27 Inhalation i ty of 2.5 mg /3 08:30: 08:41 , ONCE, 1 [place] mL (0.083 00 :00 dose, Mon Medic al %) 07/27/20 at [facility] nebulizer 0330, STAT solution 5 mg albuterol 2020- No 5mg 5 mg, Univer s (PROVENTIL) 07-27 Inhalation i ty of 2.5 mg /3 07:15: 07:13 , ONCE, 1 [place] mL (0.083 00 :00 dose, Mon Medic al %) 07/27/20 at [facility] nebulizer 0215, STAT solution 5 mg magnesium 2020- No 2g 2 g, IV Univ ers sulfate in 07-27 Piggyback, it y of water 2 07:15: 07:15 ONCE, 1 [place] gram/50 mL 00 :00 dose, Mon Medi charles (4 %) 07/27/20 at [facility] infusion 2 0215, g Routine methylpredn 2020- No 125mg 125 mg, IV Univers isolone sod 07-27 Piggyback, i ty of succ 07:15: 06:08 ONCE, 1 [place] (SOLU-MEDRO 00 :00 dose, Mon Med ical L) 07/27/20 at [facility] injection 0215, STAT 125 mg ipratropium No .5mg 0.5 mg, Un harriet (ATROVENT) 07-27 Inhalation it y of 0.02 % 06:15: 06:06 , ONCE, 1 [place] nebulizer 00 :00 dose, Mon Medic al solution 07/27/20 at [facility] h 0.5 mg 0115, LOGAN albuterol 2020- No 7.5mg 7.5 mg, Uni vers (PROVENTIL) 07-27 Inhalation i ty of 2.5 mg /3 06:15: 06:06 , ONCE, 1 [place] mL (0.083 00 :00 dose, Mon Medic al %) 07/27/20 at [facility] nebulizer 0115, STAT solution 7.5 mg predniSONE 2020- No [id number] 40mg Take 2 [facility] 20 mg 07-15 tablets by ity of tablet 00:00: 04:59 mouth [place] 00 :00 daily for Medical 4 days. [facility] levoFLOXaci Yes 750mg 750 mg, Un harriet [...] mouth ity of tablet 15:41: 00:00 daily. [place] 01 :00 Medical Branch albuterol 2020- No Inhale. [facility] ers sulfate 07-14 ity of (PROAIR 15:35: 00:00 [place] DIGIHALER) 54 :00 Medical 90 Branch mcg/actuati on aebs azithromyci 2020- No 1{packe Take 1 Univers n 07-14 t} Packet by ity of (ZITHROMAX) 15:35: 00:00 mouth once [place] 1 gram 54 :00 now. Medical powder Branch azithromyci 2020-2020- No 500mg Take 500 Univers n 6- 06-01 mg by ity of (ZITHROMAX) 15:35: 00:00 [...] Testing 2100, Until Discontinu ed, Routine levoFLOXaci 0 Yes [id number] 750mg Take 1 Univers n 750 mg 6-01 tablet by ity of tablet 00:00: mouth [place] 00 every 24 Medical (twenty-fo Branch ur) hours. albuterol Yes [id number] 2{puff} Inhale 2 Univers 90 6-01 Puffs ity of mcg/actuati 00:00: every 4 [place] on inhaler 00 (four) Medical hours as Branch needed for Wheezing or Shortness of Breath. levoFLOXaci Yes [id number] 750mg Take 1 Univers n 750 mg 6-01 tablet by ity of tablet 00:00: mouth [place] 00 every 24 Medical (twenty-fo Branch ur) hours. albuterol Yes [id number] 2{puff} Inhale 2 Univers 90 6-01 Puffs ity of mcg/actuati 00:00: every 4 [place] on inhaler 00 (four) Medical hours as Branch needed for Wheezing or Shortness of Breath. levoFLOXaci Yes [id number] 750mg Take 1 Univers n 750 mg 6-01 tablet by ity of tablet 00:00: mouth [place] 00 every 24 Medical (twenty-fo Branch ur) hours. albuterol 0 Yes [id number] 2{puff} Inhale 2 Univers 90 6-01 Puffs ity of mcg/actuati 00:00: every 4 [place] on inhaler 00 (four) Medical hours as Branch needed for Wheezing or Shortness of Breath. levoFLOXaci Yes [id number] 750mg Take 1 Univers n 750 mg 6-01 tablet by ity of tablet 00:00: mouth [place] 00 every 24 Medical (twenty-fo Branch ur) hours. albuterol Yes [id number] 2{puff} Inhale 2 Univers 90 6-01 Puffs ity of mcg/actuati 00:00: every 4 [place] on inhaler 00 (four) Medical hours as Branch needed for Wheezing or Shortness of Breath. albuterol Yes [id number] 2{puff} Inhale 2 Univers 90 6-01 Puffs ity of mcg/actuati 00:00: every 4 [place] on inhaler 00 (four) Medical hours as Branch needed for Wheezing or Shortness of Breath. albuterol Yes [id number] 2{puff} Inhale 2 Univers 90 6-01 Puffs ity of mcg/actuati 00:00: every 4 [place] on inhaler 00 (four) Medical hours as Branch needed for Wheezing or Shortness of Breath. albuterol Yes [id number] 2{puff} Inhale 2 Univers 90 6-01 Puffs ity of mcg/actuati 00:00: every 4 [place] on inhaler 00 (four) Medical hours as Branch needed for Wheezing or Shortness of Breath. levoFLOXaci Yes [id number] 750mg Take 1 [facility] n 750 mg 6-01 tablet by ity of tablet 00:00: mouth [place] 00 every 24 Medical (twenty-fo Branch ur) hours. albuterol Yes [id number] 2{puff} Inhale 2 Univers 90 6-01 Puffs ity of mcg/actuati 00:00: every 4 [place] on inhaler 00 (four) Medical hours as Branch needed for Wheezing or Shortness of Breath. levoFLOXaci 2021- No [id number] 750mg Take 1 Univers n 750 mg 07-14 tablet by ity o f tablet 00:00: 00:00 mouth [place] 00 :00 every 24 Medical (twenty-fo Branch ur) hours. lisinopriL 2020- No [id number] 40mg Take 1 [facility] 40 mg -08-14 tablet by ity of tablet 00:00: 04:59 mouth [place] 00 :00 daily for Medical 30 days. Mari hydroCHLORO 2020- No [id number] 12.5mg Take 1 [facility] thiazide 07-14 capsule by ity of 12.5 mg 00:00: 04:59 mouth [place] capsule 00 :00 daily for Medical 30 days. [place] lisinopriL 2020- No [id number] 40mg Take 1 [facility] 40 mg 07-14 tablet by ity of tablet 00:00: 04:59 mouth [place] 00 :00 daily for Medical 30 days. [place] hydroCHLORO 2020- No [id number] 12.5mg Take 1 [facility] thiazide 07-14 capsule by ity of 12.5 mg 00:00: 04:59 mouth [place] capsule 00 :00 daily for Medical 30 days. [place] lisinopriL 2020- No [id number] 40mg Take 1 [facility] 40 mg 07-14 tablet by ity of tablet 00:00: 04:59 mouth [place] 00 :00 daily for Medical 30 days. [place] hydroCHLORO 2020- No [id number] 12.5mg Take 1 [facility] thiazide 07-14 capsule by ity of 12.5 mg 00:00: 04:59 mouth [place] capsule 00 :00 daily for Medical 30 days. [place] lisinopriL 2020- No [id number] 40mg Take 1 [facility] 40 mg 07-14 tablet by ity of tablet 00:00: 04:59 mouth [place] 00 :00 daily for Medical 30 days. [place] hydroCHLORO 2020- No [id number] 12.5mg Take 1 [facility] thiazide 07-14 capsule [...] injection 28 Starting Medica l [address] [facility] 07/13/20 at 1816, Until Discontinu ed, LOGAN, [...] mg 00 :00 ONCE, 1 Medical dose, [facility] 07/11/20 at 2000, Routine zolpidem Yes 5mg 5 mg, Univers (AMBIEN) 07-11 Oral, ity of tablet 5 mg 23:15: QHSPRN, [place] 57 Starting Medical [facility] 07/11/20 at 1815, Until Discontinu ed, Routine, Insomnia amLODIPine Yes 10mg 10 mg, Unive rs (NORVASC) 07-11 Oral, ity of tablet 10 21:00: DAILY, [place] mg 00 First dose Medical on [facility] 07/11/20 at 1600, Until Discontinu ed, Routine methylpredn 2020- No 60mg 60 mg, Uni vers isolone sod 07-1131 Slow IV ity of succ 17:30: 23:16 Push, Q6H, [place] (SOLU-MEDRO 00 :03 First dose Me dical L) on [facility] injection 07/11/20 at 60 mg 1230, Until Discontinu ed, Routine albuterol 0 Yes 2.5mg 2.5 mg, Univ ers (PROVENTIL) 07-11 Inhalation it y of 2.5 mg /3 17:04: , Q2HPRN, [place] as mL (0.083 47 Starting Medica l %) [facility] nebulizer 07/11/20 at solution 1204, 2.5 mg Until Discontinu ed, Routine, Shortness of Breath, Wheezing enoxaparin Yes 40mg 40 mg, Unive rs (LOVENOX) 07-09 Subcutaneo ity of injection 22:00: [place], [place]ILY, [place] 40 mg 00 First dose Medical on [facility] 07/09/20 at 1700, Until Discontinu ed, Routine lisinopriL 2020- No 10mg 10 mg, Univ ers (PRINIVIL,Z 07-09 Oral, ity of ESTRIL) 14:00: 20:46 DAILY, [place] tablet 10 00 :45 First dose Medi charles mg on [facility] 07/09/20 at 0900, Until Discontinu ed, [...] 13:00: First dose [place] mg 00 on [facility] 07/09/20 at Branch 0800, Until Discontinu ed, Routine ipratropium 2020- No 3mL 3 mL, Univ ers -albuteroL 07-09 Inhalation it y of (DUONEB) 13:00: 08:57 , QID, [place] 0.5 mg-3 00 :36 First dose Medic al mg(2.5 mg on [facility] base)/3 mL 07/09/20 at nebulizer 0800, solution 3 Until mL Discontinu ed, Routine ipratropium 2020- No 3mL 3 mL, Univ ers -albuteroL 07-09 Inhalation it y of (DUONEB) 13:00: 08:57 , QID, [place] 0.5 mg-3 00 :36 First dose Medic al mg(2.5 mg on [facility] base)/3 mL 07/09/20 at nebulizer 0800, solution 3 Until mL Discontinu ed, Routine piperacilli 2020-0 202- No 3.375g 3.375 g, Univers n-tazobacta 07-09 [...]
Durat ion of therapy: 7 days ondansetron 0 Yes 4mg 4 mg, Slow Univers (ZOFRAN 07-09 IV Push, ity of (PF)) 09:03: Q6HPRN, [place] injection 4 54 Starting Medi charles mg [facility] 07/09/20 at 0403, Until Discontinu ed, Routine, Nausea and Vomiting (N/V) budesonide 0 Yes .5mg 0.5 mg, Univ ers (PULMICORT 07-09 Inhalation ity of RESPULE) 09:00: , BID, [place] nebulizer 00 First dose Medi charles solution on [facility] 0.5 mg 07/09/20 at 0400, Until Discontinu ed, Routine
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 Restricted medication : MEGADC ipratropium 0 Yes 3mL 3 mL, Unive rs -albuteroL 07-09 Inhalation ity of (DUONEB) 09:00: , Q4H, [place] 0.5 mg-3 00 First dose Medic al mg(2.5 mg (after Branch base)/3 mL last nebulizer modificati solution 3 on) on [facility] mL 07/09/20 at 0400, Until Discontinu ed, Routine albuterol 2020-0 202- No 2.5mg 2.5 mg, Uni vers (PROVENTIL) 5-27 05-27 Inhalation i ty of 2.5 mg /3 09:00: 07:56 , ONCE, 1 [place] mL (0.083 00 :00 dose, [facility] Medic al %) 07/09/20 at [facility] nebulizer 0400, STAT solution 2.5 mg magnesium 2020- No 2g 2 g, IV Univ ers sulfate in 07-09 Piggyback, it y of water 2 06:45: 06:25 ONCE, 1 [place] gram/50 mL 00 :00 dose, Astrid Medi charles (4 %) 07/09/20 at [facility] infusion 2 0145, g Routine methylpredn 2020- No 125mg 125 mg, IV Univers isolone sod 07-09 Piggyback, i ty of succ 06:45: 05:31 ONCE, 1 [place] (SOLU-MEDRO 00 :00 dose, Astrid Med ical L) 07/09/20 at [facility] injection 0145, STAT 125 mg levoFLOXaci 2020- No 750mg 750 mg, IV Univers n in D5W 07-09 Piggyback, ity of (LEVAQUIN) 06:30: 08:02 Administer [place] 750 mg/150 00 :00 over 90 Medica l mL Minutes, [facility] Piggyback ONCE, 1 750 mg dose, Astrid 07/09/20 at 0130, LOGAN
Re ason for Anti-Infec tive: Empiric Therapy for Suspected Infection< br>Empiric Therapy Site: Respirator y
Durat ion of therapy: 72 hours ProAir HFA 2020-0 No 1mcg/ac 90 5-18 tuation mcg/actuati 00:00: on aerosol 00 inhaler lisinopril 2020-0 No 1mg 40 mg 5-18 tablet 00:00: 00 hydrochloro 2020-0 No 1mg thiazide 5-18 12.5 mg 00:00: tablet 00 naproxen 2020-0 No 1mg 500 mg 5-18 tablet 00:00: 00 ProAir HFA 2020-0 No 1mcg/ac 90 5-18 tuation mcg/actuati 00:00: on aerosol 00 inhaler lisinopril 2020-0 No 1mg 40 mg 5-18 tablet 00:00: 00 hydrochloro 2021-0 No 1mg thiazide 5-18 12.5 mg 00:00: tablet 00 naproxen 2021-0 No 1mg 500 mg 5-18 tablet 00:00: 00 ProAir HFA 2021-0 No 1mcg/ac 90 5-18 tuation mcg/actuati 00:00: on aerosol 00 inhaler lisinopril 2021-0 No 1mg 40 mg 5-18 tablet 00:00: 00 hydrochloro 2021-0 No 1mg thiazide 5-18 12.5 mg 00:00: tablet 00 naproxen 2021-0 No 1mg 500 mg 5-18 tablet 00:00: 00 ProAir HFA 2021-0 No 1mcg/ac 90 5-18 tuation mcg/actuati 00:00: on aerosol 00 inhaler lisinopril 2021-0 No 1mg 40 mg 5-18 tablet 00:00: 00 hydrochloro 2021-0 No 1mg thiazide 5-18 12.5 mg 00:00: tablet 00 naproxen 1-0 No 1mg 500 mg 5-18 tablet 00:00: 00 ProAir HFA 2021-0 No 1mcg/ac 90 5-18 tuation mcg/actuati 00:00: on aerosol 00 inhaler lisinopril 1-0 No 1mg 40 mg 5-18 tablet 00:00: 00 hydrochloro 2021-0 No 1mg thiazide 5-18 12.5 mg 00:00: tablet 00 naproxen 2021-0 No 1mg 500 mg 5-18 tablet 00:00: 00 lisinopril 2020-0 No 2mg 20 4-21 mg-hydrochl 00:00: orothiazide 00 12.5 mg tablet naproxen 2020-0 No 1mg 500 mg 4-21 tablet 00:00: 00 methotrexat 2020-0 No 3mg e sodium 4-21 2.5 mg 00:00: tablet 00 lisinopril 2020-0 No 2mg 20 4-21 mg-hydrochl 00:00: orothiazide 00 12.5 mg tablet naproxen 2020-0 No 1mg 500 mg 4-21 tablet 00:00: 00 methotrexat 2020-0 No 3mg e sodium 4-21 2.5 mg 00:00: tablet 00 lisinopril 2020-0 No 2mg 20 4-21 mg-hydrochl 00:00: orothiazide 00 12.5 mg tablet naproxen 2020-0 No 1mg 500 mg 4-21 tablet 00:00: 00 methotrexat 2020-0 No 3mg e sodium 4-21 2.5 mg 00:00: tablet 00 lisinopril 2020-0 No 2mg 20 4-21 mg-hydrochl 00:00: orothiazide 00 12.5 mg tablet naproxen 2020-0 No 1mg 500 mg 4-21 tablet 00:00: 00 methotrexat 2020-0 No 3mg e sodium 4-21 2.5 mg 00:00: tablet 00 lisinopril 2020-0 No 2mg 20 4-21 mg-hydrochl 00:00: orothiazide 00 12.5 mg tablet naproxen 2020-0 No 1mg 500 mg 4-21 tablet 00:00: 00 methotrexat 2020-0 No 3mg e sodium 4-21 2.5 mg 00:00: tablet 00 lisinopril 2019-1 No 2mg 20 2-04 mg-hydrochl 00:00: orothiazide 00 12.5 mg tablet lisinopril 2019-1 No 2mg 20 2-04 mg-hydrochl 00:00: orothiazide 00 12.5 mg tablet lisinopril 2019-1 No 2mg 20 2-04 mg-hydrochl 00:00: orothiazide 00 12.5 mg tablet lisinopril 2019-1 No 2mg 20 2-04 mg-hydrochl 00:00: orothiazide 00 12.5 mg tablet lisinopril 2019-1 No 2mg 20 2-04 mg-hydrochl 00:00: orothiazide 00 12.5 mg tablet lisinopril 2018-0 No 2mg 20 7-31 mg-hydrochl [...] 20 mg 5-07 tablet 00:00: 00 methotrexat 2017-1 No 3mg e sodium 1-07 2.5 mg 00:00: tablet 00 methotrexat 2017-1 No 3mg e sodium 1-07 2.5 mg 00:00: tablet 00 methotrexat 2017-1 No 3mg e sodium 1-07 2.5 mg 00:00: tablet 00 methotrexat 2017-1 No 3mg e sodium 1-07 2.5 mg 00:00: tablet 00 methotrexat 2016-02 No 3mg e sodium 1-07 2.5 mg 00:00: tablet 00 lisinopril 2016-02 No 2mg 20 1-06 mg-hydrochl 00:00: orothiazide 00 12.5 mg tablet prednisone 2016-02 No 1mg 20 mg 1-06 tablet 00:00: 00 naproxen 2016-02 No 1mg 500 mg 1-06 tablet 00:00: 00 Vitamin D2 2016-02 No 1unit 50,000 unit 1-06 capsule 00:00: 00 lisinopril 2016-02 No 2mg 20 1-06 mg-hydrochl 00:00: orothiazide 00 12.5 mg tablet prednisone 2016-02 No 1mg 20 mg 1-06 tablet 00:00: 00 naproxen 2016-02 No 1mg 500 mg 1-06 tablet 00:00: 00 Vitamin D2 2016-02 No 1unit 50,000 unit 1-06 capsule 00:00: 00 lisinopril 2016-02 No 2mg 20 1-06 mg-hydrochl 00:00: orothiazide 00 12.5 mg tablet prednisone 2016-02 No 1mg 20 mg 1-06 tablet 00:00: 00 naproxen 2016-02 No 1mg 500 mg 1-06 tablet 00:00: 00 Vitamin D2 2016-02 No 1unit 50,000 unit 1-06 capsule 00:00: 00 lisinopril 2016-02 No 2mg 20 1-06 mg-hydrochl 00:00: orothiazide 00 12.5 mg tablet prednisone 2016-02 No 1mg 20 mg 1-06 tablet 00:00: 00 naproxen 2016-02 No 1mg 500 mg 1-06 tablet 00:00: 00 Vitamin D2 2016-02 No 1unit 50,000 unit 1-06 capsule 00:00: 00 lisinopril 2016-02 No 2mg 20 1-06 mg-hydrochl 00:00: orothiazide 00 12.5 mg tablet prednisone 2016-02 No 1mg 20 mg 1-06 tablet 00:00: 00 naproxen 2016-02 No 1mg 500 mg 1-06 tablet 00:00: 00 Vitamin D2 2016-02 No 1unit 50,000 unit 1-06 capsule 00:00: 00 Vitamin D2 2016-02 No [...] 500 mg 0-23 tablet 00:00: 00 prednisone 2016-02 No 2mg 20 mg 0-23 tablet 00:00: 00 prednisone 2016-02 No 1mg 20 mg 0-23 tablet 00:00: 00 lisinopril 2016-02 No 2mg 20 0-23 mg-hydrochl 00:00: orothiazide 00 12.5 mg tablet naproxen 2016-02 No 1mg 500 mg 0-23 tablet 00:00: 00 prednisone 2016-02 No 2mg 20 mg 0-23 tablet 00:00: 00 prednisone 2016-02 No 2mg 20 mg 0-23 tablet 00:00: 00 prednisone 2016-02 No 1mg 20 mg 0-23 tablet 00:00: 00 lisinopril 2016-02 No 2mg 20 0-23 mg-hydrochl 00:00: orothiazide 00 12.5 mg tablet naproxen 2016-02 No 1mg 500 mg 0-23 tablet 00:00: 00 prednisone 2016-02 No 1mg 20 mg 0-23 tablet 00:00: 00 lisinopril 2016-02 No 2mg 20 0-23 mg-hydrochl 00:00: orothiazide 00 12.5 mg tablet prednisone 2016-02 No 2mg 20 mg 0-23 tablet 00:00: 00 prednisone 2016-02 No 1mg 20 mg 0-23 tablet 00:00: 00 lisinopril 2016-02 No 2mg 20 0-23 mg-hydrochl 00:00: orothiazide 00 12.5 mg tablet naproxen 2017-1 No 1mg 500 mg 0-23 tablet 00:00: 00 naproxen 2017-1 No 1mg 500 mg 0-23 tablet 00:00: 00 lisinopril 2017-1 No 1mg 20 mg 0-14 tablet 00:00: 00 lisinopril 2016-1 No 1mg 20 mg 0-14 tablet 00:00: 00 lisinopril 2016-1 No 1mg 20 mg 0-14 tablet 00:00: 00 lisinopril 2016-1 No 1mg 20 mg 0-14 tablet 00:00: 00 lisinopril 2016-1 No 1mg 20 mg 0-14 tablet 00:00: 00 naproxen 2017-1 No 1mg 500 mg 0-10 tablet 00:00: 00 naproxen 2017-1 No 1mg 500 mg 0-10 tablet 00:00: 00 naproxen 2017-1 No 1mg 500 mg 0-10 tablet 00:00: 00 naproxen 2016-1 No 1mg 500 mg 0-10 tablet 00:00: 00 naproxen 2016-1 No 1mg 500 mg 0-10 tablet 00:00: 00 amoxicillin 2017-0 No 1mg 500 mg 3-23 capsule 00:00: 00 amoxicillin 2017-0 No 1mg 500 mg 3-23 capsule 00:00: 00 amoxicillin 2017-0 No 1mg 500 mg 3-23 capsule 00:00: 00 amoxicillin 2017-0 No 1mg 500 mg 3-23 capsule 00:00: 00 amoxicillin 2017-0 No 1mg 500 mg 3-23 capsule 00:00: 00 Immunizations Ordered Immunization Filled Immunization Date Status Commen ts Source Name Name TST-PPD intradermal 2017-01-02 Completed 00:00:00 TST-PPD intradermal 2017-01-02 Completed 00:00:00 TST-PPD intradermal 2017-01-02 Completed 00:00:00 TST-PPD intradermal 2017-01-02 Completed 00:00:00 TST-PPD intradermal 2017-01-02 Completed 00:00:00 Vital Signs Vital Name Observation Time Observation Value Comments Source Systolic blood 2022-01-17 18:48:00 128 mm[Hg] [facility] Diastolic blood 2022-01-17 18:48:00 69 mm[Hg] Unive rsity [facility] Heart rate 2022-01-17 18:48:00 72 /min [facility] [place] [facility] Body temperature 2022-01-17 18:48:00 37.17 Madhuri [facility] [place] [facility] Respiratory rate 2022-01-17 18:48:00 18 /min [facility] [place] [facility] Oxygen saturation in 2022-01-17 18:48:00 98 /min [facility] Arterial blood by [facility] Pulse oximetry Branch Body height 2022-01-14 17:49:00 152.4 cm [facility] [place] [facility] Body weight 2022-01-14 17:49:00 133.358 kg [facility] [place] [facility] BMI 2022-01-14 17:49:00 57.42 kg/m2 [facility] [place] [facility] Systolic blood 2021-10-01 17:11:00 124 mm[Hg] [facility] [place] [facility] Diastolic blood 2021-10-01 17:11:00 73 mm[Hg] [facility] [place] [facility] Heart rate 2021-10-01 17:11:00 86 /min [facility] [place] [facility] Body temperature 2021-10-01 17:11:00 36.22 Madhuri [facility] [place] [facility] Respiratory rate 2021-10-01 17:11:00 18 /min [facility] [place] [facility] Oxygen saturation in 2021-10-01 17:11:00 93 /min [facility] blood by [facility] Pulse oximetry Branch Body weight 2021-10-01 09:03:00 140.978 kg [facility] [place] [facility] BMI 2021-10-01 09:03:00 56.85 kg/m2 [facility] [place] [facility] Body height 2021-10-01 00:52:00 157.5 cm [facility] [place] [facility] Systolic blood 2021-09-09 05:57:00 124 mm[Hg] [facility] [place] [facility] Diastolic blood 2021-09-09 05:57:00 65 mm[Hg] [facility] [place] [facility] Heart rate 2021-09-09 05:57:00 89 /min [facility] [place] [facility] Respiratory rate 2021-09-09 05:57:00 20 /min [facility] [place] [facility] Oxygen saturation in 2021-09-09 05:57:00 95 /min [facility] blood by [facility] Pulse oximetry Branch Body temperature 2021-09-09 02:32:00 37.28 Madhuri [facility] [place] [facility] Body weight 2021-09-09 02:32:00 137.893 kg [facility] [place] [facility] BMI 2021-09-09 02:32:00 55.60 kg/m2 [facility] [place] [facility] Heart rate 2020-07-28 16:41:00 78 /min [facility] [place] [facility] Respiratory rate 2020-07-28 16:41:00 18 /min [facility] [place] [facility] Oxygen saturation in 2020-07-28 16:41:00 90 /min [facility] blood by [facility] Pulse oximetry Branch Systolic blood 2020-07-28 16:38:00 129 mm[Hg] [facility] [place] [facility] Diastolic blood 2020-07-28 16:38:00 69 mm[Hg] [facility] [place] [facility] Body temperature 2020-07-28 16:38:00 36.83 Madhuri [facility] [place] [facility] Body height 2020-07-27 10:06:00 157.5 cm [facility] [place] [facility] Body weight 2020-07-27 10:06:00 137.939 kg [facility] [place] [facility] BMI 2020-07-27 10:06:00 55.62 kg/m2 [facility] [place] [facility] Respiratory rate 2020-07-14 16:45:00 20 /min [facility] [place] [facility] Oxygen saturation in 2020-07-14 16:45:00 100 /min [facility] blood by [facility] Pulse oximetry Branch Systolic blood 2020-07-14 16:10:00 140 mm[Hg] [facility] [place] [facility] Diastolic blood 2020-07-14 16:10:00 88 mm[Hg] [facility] [place] [facility] Heart rate 2020-07-14 16:10:00 72 /min [facility] [place] [facility] Body temperature 2020-07-14 16:10:00 36.17 Madhuri [facility] [place] [facility] Body weight 2020-07-14 08:35:00 135.489 kg [facility] [place] [facility] BP Systolic 2022-02-15 16:32:00 160 mm[Hg] BP Diastolic 2022-02-15 16:32:00 93 mm[Hg] Weight Measured 2022-02-15 16:32:00 288.00 pounds Height Measured 2022-02-15 16:32:00 59.72 inches Body Temperature 2022-02-15 16:32:00 98.40 degrees Heart Rate 2022-02-15 16:32:00 99.00 /min Respiratory Rate 2022-02-15 16:32:00 18.00 /min BP Systolic 2022-02-01 17:29:00 163 mm[Hg] BP Diastolic 2022-02-01 17:29:00 90 mm[Hg] Weight Measured 2022-02-01 17:29:00 282.20 pounds Height Measured 2022-02-01 17:29:00 59.72 inches Body Temperature 2022-02-01 17:29:00 97.90 degrees Heart Rate 2022-02-01 17:29:00 93.00 /min Respiratory Rate 2022-02-01 17:29:00 BP Systolic 2022-01-21 17:34:00 170 mm[Hg] BP Diastolic 2022-01-21 17:34:00 116 mm[Hg] Weight Measured 2022-01-21 17:34:00 280.80 pounds Height Measured 2022-01-21 17:34:00 59.72 inches Body Temperature 2022-01-21 17:34:00 98.10 degrees Heart Rate 2022-01-21 17:34:00 83.00 /min Respiratory Rate 2022-01-21 17:34:00 18.00 /min Systolic blood 2022-01-16 14:00:00 164 mm[Hg] Univer sity of pressure [facility] Diastolic blood 2022-01-16 14:00:00 84 mm[Hg] Unive rsity of pressure [facility] Heart rate 2022-01-16 14:00:00 79 /min Universi [facility] Body temperature 2022-01-16 14:00:00 36.72 Madhuri [facility] [place] [facility] Respiratory rate 2022-01-16 14:00:00 21 /min [facility] O[facility] saturation in 2022-01-16 14:00:00 97 /min [facility] blood by [facility] Pulse oximetry [facility] Body height 2022-01-14 17:49:00 152.4 cm [facility] Body weight 2022-01-14 17:49:00 133.358 kg [facility] BMI 2022-01-14 17:49:00 57.42 kg/m2 [facility] BP Systolic 2021-09-30 13:38:00 172 mm[Hg] BP Diastolic 2021-09-30 13:38:00 105 mm[Hg] Weight Measured 2021-09-30 13:38:00 313.80 pounds Height Measured 2021-09-30 13:38:00 59.72 inches Body Temperature 2021-09-30 13:38:00 98.20 degrees Heart Rate 2021-09-30 13:38:00 101.00 /min Respiratory Rate 2021-09-30 13:38:00 15.00 /min BP Systolic 2021-09-23 11:25:00 BP Diastolic 2021-09-23 [...] Date / Time Performing Clinician Source Performed MAGNESIUM 2022-01-17 10:09:00 [facility] BASIC METABOLIC PANEL 2022-01-17 10:09[facility], CL, CO2, GLUCOSE, Medica l Branch BUN, CREATININE, CA) CBC WITH DIFF 2022-01-17 10:09[facility] 2022-01-16 14:47:00 [facility] ([facility], K, CL, CO2, GLUCOSE, Medica l Branch BUN, CREATININE, CA) BASIC METABOLIC PANEL 2022-01-16 14:47:00 Pamela [facility] (NA, K, CL, CO2, GLUCOSE, Medica l Branch BUN, CREATININE, CA) CBC WITH DIFF 2022-01-16 11:23:00 Pamela [facility] CBC WITH DIFF 2022-01-16 11:23:00 [facility] POCT GLUCOSE (AUTOMATED) 2022-01-15 18:39:00 Jones Phipps [facility] POCT GLUCOSE (AUTOMATED) 2022-01-15 18:39:00 Jones Phipps [facility] CBC WITH DIFF 2022-01-15 11:24:00 Pamela [facility] BASIC METABOLIC PANEL 2022-01-15 11:24:00 Pamela [facility] (NA, K, CL, CO2, GLUCOSE, Medica l Branch BUN, CREATININE, CA) BASIC METABOLIC PANEL 2022-01-15 11:24:00 [facility] (NA, K, CL, CO2, GLUCOSE, Medica l Branch BUN, CREATININE, CA) CBC WITH DIFF 2022-01-15 11:24:00 [place] CT ANGIOGRAM HEAD 2022-01-15 03:24:59 Pamela [facility] CT ANGIOGRAM HEAD 2022-01-15 03:24:59 Pamela [facility] IR SPINAL LUMBAR PUNCTURE 2022-01-14 19:39:00 [facility] IR SPINAL LUMBAR PUNCTURE 2022-01-14 19:39:00 [facility] CEREBROSPINAL FLUID 2022-01-14 18:55:00 Pamela [facility] GLUCOSE [facility] CEREBROSPINAL FLUID 2022-01-14 18:55:00 Pamela [facility] PROTEIN [facility] BODY FLUID MANUAL DIFF 2022-01-14 18:55:00 Pamela [facility] CSF CULTURE 2022-01-14 18:55:00 Pamela [facility] CEREBROSPINAL FLUID 2022-01-14 18:55:00 Pamela [facility] PROTEIN [facility] CEREBROSPINAL FLUID 2022-01-14 18:55:00 Pamela [facility] GLUCOSE [facility] BODY FLUID DIRECT COUNT 2022-01-14 18:55:00 Pamela [facility] CSF/OUTSIDE SALES ACCOUNT EXECUTIVE SHUNT CULTURE 2022-01-14 18:55:00 [facility]ela [facility] CSF CULTURE 2022-01-14 18:55:00 Pamela [facility] CBC WITH DIFF 2022-01-14 11:00:00 Pamela [facility] BASIC METABOLIC PANEL 2022-01-14 11:00:00 Kate Santiago [facility] (NA, K, CL, CO2, GLUCOSE, Medica l Branch BUN, CREATININE, CA) MAGNESIUM 2022-01-14 11:00:00 Pamela [facility] MAGNESIUM 2022-01-14 11:00:00 Pamela [facility] BASIC METABOLIC PANEL 2022-01-14 11:00:00 Pamela [facility] (NA, K, CL, CO2, GLUCOSE, Medica l Branch BUN, CREATININE, CA) CBC WITH DIFF 2022-01-14 11:00:00 Pamela [facility] BASIC METABOLIC PANEL 2022-01-13 12:56:00 [facility] (NA, K, CL, CO2, GLUCOSE, Medica l Branch BUN, CREATININE, CA) MAGNESIUM 2022-01-13 12:56:00 Oville [facility] PHOSPHORUS 2022-01-13 12:56:00 Oville [facility] PHOSPHORUS 2022-01-13 12:56:00 Oville [facility] MAGNESIUM 2022-01-13 12:56:00 [place], [facility] BASIC METABOLIC PANEL 2022-01-13 12:56:00 [facility] (NA, K, CL, CO2, GLUCOSE, Medica l Branch BUN, CREATININE, CA) CBC WITH DIFF 2022-01-13 12:55:00 [place], [facility] CBC WITH DIFF 2022-01-13 12:55:00 [place] [facility] CBC WITH DIFF 2022-01-12 09:55:00 Arnold Mejia [facility] BASIC METABOLIC PANEL 2022-01-12 09:55:00 Arnold Mejia [facility] (NA, K, CL, CO2, GLUCOSE, Medica l Branch BUN, CREATININE, CA) MAGNESIUM 2022-01-12 09:55:00 Arnold Mejia [facility] MAGNESIUM 2022-01-12 09:55:00 Arnold Mejia [facility] BASIC METABOLIC PANEL 2022-01-12 09:55:00 Arnold Mejia [facility] (NA, K, CL, CO2, GLUCOSE, Medica l Branch BUN, CREATININE, CA) CBC WITH DIFF 2022-01-12 09:55:00 Arnold Mejia [facility] MR BRAIN WO CONTRAST 2022-01-11 16:06:17 Arnold Mejia [facility] MR BRAIN WO CONTRAST 2022-01-11 16:06:17 [facility] PHOSPHORUS 2022-01-11 10:29:00 Arnold Mejia [facility] COVID-19 (MOLECULAR 2022-01-11 10:29:[address] [facility] NUCLEIC ACID AMPLIFICATION) LAB ONLY COVID 2022-01-11 10:29:00 Arnold Mejia [facility] PHOSPHORUS 2022-01-11 10:29:00 Arnold Mejia [facility] COVID-19 (MOLECULAR 2022-01-11 10:29:[address] [facility] NUCLEIC ACID AMPLIFICATION) LAB ONLY COVID 2022-01-11 10:29:00 Arnold Mejia [facility] AC PANEL 20 + LACTIC ACID 2022-01-11 05:29:00 [facility] + LACTIC ACID 2022-01-11 05:29:00 [facility] (ID NOW RAPID 2022-01-11 04:23:00 [facility] TESTING) Medical Branch LAB ONLY COVID 2022-01-11 04:23:00 Mariusz Deluca [facility] COVID-19 (ID NOW RAPID 2022-01-11 04:23:00 Mariusz Deluca [facility] TESTING) Medical Branch LAB ONLY COVID 2022-01-11 04:23:00 Mariusz Deluca [facility] CT CHEST PULMONARY 2022-01-11 03:22:01 Mariusz Deluca [facility] ANGIOGRAM Medical Branch CT ANGIOGRAM HEAD 2022-01-11 03:22:01 Mariusz Deluca [facility] CT ANGIOGRAM NECK 2022-01-11 03:22:01 Mariusz Deluca [facility] CT ANGIOGRAM HEAD 2022-01-11 03:22:01 Mariusz Deluca [facility] CT ANGIOGRAM NECK 2022-01-11 03:22:[facility] 2022-01-11 03:22:01 Mariusz Deluca [facility] CT HEAD WO CONTRAST 2022-01-11 03:03:54 Mariusz Deluca [facility] CT HEAD WO CONTRAST 2022-01-11 03:03:54 Mariusz Deluca [facility] ACTIVATED PARTIAL 2022-01-11 02:09:00 [facility] / INR 2022-01-11 02:09:00 Mariusz Deluca [facility] PROTHROMBIN TIME / INR 2022-01-11 02:09:00 Mariusz Deluca [facility] ACTIVATED PARTIAL 2022-01-11 02:09:00 [facility] WITH DIFF 2022-01-11 01:17:00 Mariusz Deluca [facility] COMP. METABOLIC PANEL 2022-01-11 01:17:00 Mariusz Deluca [facility] ([id number]) [facility] TROPONIN I 2022-01-11 01:17:00 Yosi Mariusz [facility] N-TERMINAL PRO-BNP 2022-01-11 01:17:00 Mariusz Deluca [facility] LIPASE 2022-01-11 01:17:00 Mariusz Deluca [facility] TEST, SERUM 2022-01-11 01:17:00 Mariusz Deluca [facility] LIPASE 2022-01-11 01:17:00 Mariusz Deluca [facility] TEST, SERUM 2022-01-11 01:17:00 Yosi Mariusz [facility] TROPONIN I 2022-01-11 01:17:00 Mariusz Deluca [facility] COMP. METABOLIC PANEL 2022-01-11 01:17:00 Mariusz Deluca [facility] ([id number]) Medical Branch CBC WITH DIFF 2022-01-11 01:17:00 Yosi [facility] N-TERMINAL PRO-BNP 2022-01-11 01:17:00 Mariusz Deluca [facility] XR CHEST 1 VW 2022-01-11 01:08:26 Mariusz Deluca [facility] XR CHEST 1 VW 2022-01-11 01:08:26 Mariusz Deluca [facility] EKG-12 LEAD 2022-01-11 00:56:11 Yosi [facility] EKG-12 LEAD 2022-01-11 00:56:11 Yosi [facility] NOTICE OF PRIVACY 2022-01-11 00:40:55 Doctor Unassigned, [facility] NOTICE OF PRIVACY 2022-01-11 00:40:55 Doctor Unassigned, [facility] [place] [facility] CONSENT/REFUSAL FOR 2022-01-11 00:39:01 Doctor Unassbreann, [facility] DIAGNOSIS AND TREATMENT [facility] CONSENT/REFUSAL FOR 2022-01-11 00:39:01 Doctor Unassigned, [facility] DI[facility]IS [facility] 20[facility]-01-10 06:01:00 Doctor Unajoseigned, [facility] HOSPITAL ADMISSION 2022-01-10 06:01:00 Doctor Unassigned, [facility] POCT GLUCOSE (AUTOMATED) 2021-10-01 16:44:00 Payal Gallardo [facility] POCT GLUCOSE (AUTOMATED) 2021-10-01 12:29:00 Payal Gallardo [facility] D-DIMER 2021-10-01 09:41:00 Yasmine Jin [facility] PHOSPHORUS 2021-10-01 09:35:00 Payal Gallardo [facility] MAGNESIUM 2021-10-01 09:35:00 Payal Gallardo [facility] BASIC METABOLIC PANEL 2021-10-01 09:35:00 Payal Gallardo [facility] (NA, K, CL, CO2, GLUCOSE, Medica l Branch BUN, CREATININE, CA) CBC WITH DIFF 2021-10-01 09:35:00 Payal Gallardo [facility] POCT GLUCOSE (AUTOMATED) 2021-10-01 09:00:00 Payal Gallardo [facility] POCT GLUCOSE (AUTOMATED) 2021-10-01 02:34:00 Payal Gallardo [facility] ACUTE CARE ARTERIAL BLOOD 2021-09-30 22:39:00 Jeanna Warner [facility] GAS [facility] XR CHEST 1 VW 2021-09-30 21:13:57 Jeanna Warner [facility] COVID-19 (ID NOW RAPID 2021-09-30 21:01:00 Jeanna Warner [facility] TESTING) Medical Branch HB ECG ROUTINE & RHYTHM 2021-09-30 20:58:15 Jeanna Warner [facility] STRIP [facility] TROPONIN I 2021-09-30 20:48:00 Jeanna Warner [facility] COMP. METABOLIC PANEL 2021-09-30 20:48:00 Jeanna Warner [facility] ([id number]) Medical Branch CBC WITH DIFF 2021-09-30 20:48:00 Jeanna Warner [facility] GLYCOSYLATED HEMOGLOBIN 2021-09-30 20:48:00 Mayte Addison [facility] (A1C) [facility] Branch N-TERMINAL PRO-BNP 2021-09-30 20:48:00 Jeanna Warner [facility] CONSENT/REFUSAL FOR 2021-09-30 20:16:40 Doctor Unassigned, [facility] DIAGNOSIS AND TREATMENT [facility] XR CHEST 1 VW 2021-09-09 03:28:06 Renata Acosta [facility] LIPASE 2021-09-09 02:40:00 Dave [facility] TROPONIN I 2021-09-09 02:40:00 Dave [facility] COMP. METABOLIC PANEL 2021-09-09 02:40:00 Renata Acosta [facility] ([id number]) Medical Branch CBC WITH DIFF 2021-09-09 02:40:00 Renata Acosta [facility] NOTICE OF PRIVACY 2021-09-09 02:24:29 Doctor Unassigned, [facility] PRACTICES [facility] CONSENT/REFUSAL FOR 2021-09-09 02:24:02 Doctor Unassbreann, [facility] DIAGNOSIS AND TREATMENT [facility] [id number] Ekg W/ At Least 12 2021-08-18 00:00:00 Leads W/ I r Ekg 2020-10-09 00:00:00 Ekg 2020-09-17 00:00:00 CT ANGIOGRAM CHEST 2020-07-27 15:16:47 Vitaliy Eason [facility] XR CHEST 1 VW 2020-07-27 06:14:17 Tamika Vieira [facility] COVID-19 (ID NOW RAPID 2020-07-27 06:10:00 Tamika Vieira [facility] TESTING) Medical Branch LAB ONLY COVID 2020-07-27 06:10:00 Tamika Vieira [facility] INTERPRETATION [facility] Branch TROPONIN I 2020-07-27 06:06:00 Tamika Vieira [facility] HEPATIC FUNCTION PANEL 2020-07-27 06:06:00 Tamika Vieira [facility] ([id number]) (ALB,T.PRO,BILI Medical Branch T,BU/BC,ALT,AST,ALK PHOS) BASIC METABOLIC PANEL 2020-07-27 06:06:00 Tamika Vieira [facility] (NA, K, CL, CO2, GLUCOSE, Medica l Branch BUN, CREATININE, CA) CBC WITH DIFF 2020-07-27 06:06:00 Tamika Vieira [facility] NOTICE OF PRIVACY 2020-07-27 06:01:19 Doctor Danaigned, [facility]US[facility] FOR 2020-07-27 05:59:48 Doctor Unassbreann, [facility] DIAGNOSIS AND TREATMENT [facility] POCT GLUCOSE (AUTOMATED) 2020-07-14 12:43:00 Miguel Mendoza [facility] POCT GLUCOSE (AUTOMATED) 2020-07-14 01:36:00 Miguel Mendoza [facility] COMP. METABOLIC PANEL 2020-07-12 09:39:00 Misael rajinder [facility] ([id number]) [facility] CBC WITH DIFF 2020-07-12 09:39:00 Mayte Addison [facility] CT THORAX WO CONTRAST 2020-07-11 18:13:55 Mayte Addison [facility] COMP. METABOLIC PANEL 2020-07-11 09:37:00 Misael [facility] ([id number]) [facility] N-TERMINAL PRO-BNP 2020-07-11 09:37:00 Misael [facility] FREE T3 2020-07-11 09:37:00 Mayte Addison [facility] SPUTUM CULTURE 2020-07-10 12:15:00 Misael [facility] PNEUMOCOCCAL ANTIGEN 2020-07-10 12:13:00 Mayte Addison [facility] SEDIMENTATION RATE 2020-07-10 09:29:00 Misael [facility] MAGNESIUM 2020-07-10 09:28:00 Misael [facility] TROPONIN I 2020-07-10 09:28:00 Misael [facility] COMP. METABOLIC PANEL 2020-07-10 09:28:00 Misael [facility] ([id number]) [facility] CBC WITH DIFF 2020-07-10 09:28:00 Misael [facility] N-TERMINAL PRO-BNP 2020-07-10 09:28:00 Misael [facility] MYCOPLASMA PNEUMONIAE 2020-07-09 22:49:00 Mayte Addison [facility] ANTIBODY, IGM Medical Branch TRANSTHORACIC ECHO (TTE) 2020-07-09 20:36:58 Jaden Medina [facility] ADC,CLC OR LCC ONLY - 2020-07-09 19:51:00 Erika Falcon [facility] INFLUENZA A & B DIRECT Medical [facility] ANTIGEN TROPONIN I 2020-07-09 19:34:00 Carolynn Douglas [facility] RESPIRATORY PANEL BY PCR 2020-07-09 19:30:00 Carolynn Douglas [facility] URINALYSIS 2020-07-09 10:50:00 Carolynn Douglas [facility] LEGIONELLA URINARY 2020-07-09 10:50:00 Mayte Addison [facility] ANTIGEN TST [facility] URINE CULTURE 2020-07-09 10:50:00 Misael rajinder [facility] UREA NITROGEN, URINE 2020-07-09 10:50:[address] [facility] SODIUM, URINE RANDOM 2020-07-09 10:50:00 Carolynn Douglas [facility] PROTEIN CREAT RATIO URINE 2020-07-09 10:50:00 Carolynn Douglas [facility] PHOSPHORUS 2020-07-09 09:41:00 Misael rajinder [facility] CREATINE KINASE 2020-07-09 09:41:00 Misael rajinder [facility] TROPONIN I 2020-07-09 09:41:00 Misael rajinder [facility] FREE T4 2020-07-09 09:41:00 Mayte Addison [facility] THYROID STIMULATING 2020-07-09 09:41:00 Carolynn Douglas [facility] HORMONE [facility] LIPID PANEL ([id number])(TOTAL 2020-07-09 09:41:00 Carolynn Douglas [facility] CHOLESTEROL, [facility] TRIGLYCERIDES, HDL) PROTHROMBIN TIME / INR 2020-07-09 09:41:00 Carolynn Douglas [facility] N-TERMINAL PRO-BNP 2020-07-09 09:41:00 Carolynn Douglas [facility] PROCALCITONIN 2020-07-09 09:41:00 Carolynn Douglas [facility] HB ECG ROUTINE & RHYTHM 2020-07-09 09:28:10 Carolynn Douglas [facility] STRIP Medical Branch MAGNESIUM 2020-07-09 06:49:00 Miguel Mendoza [facility] COMP. METABOLIC PANEL 2020-07-09 06:49:00 Miguel Mendoza [facility] ([id number]) [facility] BLOOD CULTURE SCREEN 2020-07-09 06:32:00 Miguel Mendoza [facility] BLOOD CULTURE SCREEN 2020-07-09 06:31:00 Miguel Mendoza [facility] CRITICAL CARE 2020-07-09 06:04:00 Miguel Mendoza [facility] XR CHEST 1 VW 2020-07-09 05:51:20 Miguel Mendoza [facility] CBC WITH DIFF 2020-07-09 05:51:00 Miguel Mendoza [facility] GLYCOSYLATED HEMOGLOBIN 2020-07-09 05:51:00 Carolynn Douglas [facility] (A1C) Medical Branch COVID-19 (ID NOW RAPID 2020-07-09 05:51:00 Miguel Mendoza [facility] TESTING) Medical Branch LAB ONLY COVID 2020-07-09 05:51:00 Miguel Mendoza [facility] INTERPRETATION [facility] [id number] Ecg Routine Ecg 2016-05-05 00:00:00 W/least 12 Lds W/i r Plan of Care Planned Activity Planned Date Details Comments Source Goal Plan of Care Note [code = 18979-5] Goal Plan of Care Note [code = 97272-5] Goal Plan of Care Note [code = 97512-8] Goal Plan of Care Note [code = 73712-4] Goal Plan of Care Note [code = 59812-1] Goal Plan of Care Note [code = 42499-5] Goal Plan of Care Note [code = 21480-7] Goal Plan of Care Note [code = 09927-1] Goal Plan of Care Note [code = 47773-6] Goal Plan of Care Note [code = 32661-7] Goal Plan of Care Note [code = 35540-5] Goal Plan of Care Note [code = 74976-4] Goal Plan of Care Note [code = 04711-1] Goal Plan of Care Note [code = 59396-0] Goal Plan of Care Note [code = 49005-7] Goal Plan of Care Note [code = 80964-5] Goal Plan of Care Note [code = 21800-2] Goal Plan of Care Note [code = 42153-3] Goal Plan of Care Note [code = 77562-1] Goal Plan of Care Note [code = 52619-0] Goal Plan of Care Note [code = 76764-3] Goal Plan of Care Note [code = 16919-7] Goal Plan of Care Note [code = 10567-4] Goal Plan of Care Note [code = 50114-2] Goal Plan of Care Note [code = 74826-7] Goal Plan of Care Note [code = 81064-2] Goal Plan of Care Note [code = 49364-9] Goal Plan of Care Note [code = 16289-9] Goal Plan of Care Note [code = 91063-1] Goal Plan of Care Note [code = 02850-8] Goal Plan of Care Note [code = 30233-8] Goal Plan of Care Note [code = 97268-0] Goal Plan of Care Note [code = 64347-6] Goal Plan of Care Note [code = 56376-4] Goal Plan of Care Note [code = 42090-3] Goal Plan of Care Note [code = 98641-8] Goal Plan of Care Note [code = 06451-9] Goal Plan of Care Note [code = 51487-0] Goal Plan of Care Note [code = 90159-5] Goal Plan of Care Note [code = 25324-7] Goal Plan of Care Note [code = 15826-5] Goal Plan of Care Note [code = 16267-3] Goal Plan of Care Note [code = 84097-8] Goal Plan of Care Note [code = 32151-2] Goal Plan of Care Note [code = 15533-6] Goal Plan of Care Note [code = 84395-9] Goal Plan of Care Note [code = 92242-3] Goal Plan of Care Note [code = 42333-7] Goal Plan of Care Note [code = 91422-2] Goal Plan of Care Note [code = 65171-3] Goal Plan of Care Note [code = 96297-9] Goal Plan of Care Note [code = 52470-9] Goal Plan of Care Note [code = 78962-6] Goal Plan of Care Note [code = 49008-5] Goal Plan of Care Note [code = 86736-5] Goal Plan of Care Note [code = 91509-8] Goal Plan of Care Note [code = 43469-8] Goal Plan of Care Note [code = 66353-8] Goal Plan of Care Note [code = 64951-6] Goal Plan of Care Note [code = 16148-9] Goal Plan of Care Note [code = 87454-7] Goal Plan of Care Note [code = 73732-1] Goal Plan of Care Note [code = 92957-8] Goal Plan of Care Note [code = 54284-1] Goal Plan of Care Note [code = 08811-5] Goal Plan of Care Note [code = 79837-3] Goal Plan of Care Note [code = 36895-6] Goal Plan of Care Note [code = 16140-0] Goal Plan of Care Note [code = 67068-2] Goal Plan of Care Note [code = 07979-3] Goal Plan of Care Note [code = 58568-8] Goal Plan of Care Note [code = 72438-6] Goal Plan of Care Note [code = 04536-1] Goal Plan of Care Note [code = 78588-7] Goal Plan of Care Note [code = 51918-4] Goal Plan of Care Note [code = 85944-9] Goal Plan of Care Note [code = 54294-0] Goal Plan of Care Note [code = 66687-6] Goal Plan of Care Note [code = 72672-0] Goal Plan of Care Note [code = 26883-6] Goal Plan of Care Note [code = 54190-9] Goal Plan of Care Note [code = 25600-7] Goal Plan of Care Note [code = 54379-8] Goal Plan of Care Note [code = 02322-4] Goal Plan of Care Note [code = 43444-9] Goal Plan of Care Note [code = 38412-9] Goal Plan of Care Note [code = 37069-8] Goal Plan of Care Note [code = 49408-5] Goal Plan of Care Note [code = 52523-6] Goal Plan of Care Note [code = 92336-4] Goal Plan of Care Note [code = 05179-3] Goal Plan of Care Note [code = 46920-5] Goal Plan of Care Note [code = 33709-1] Goal Plan of Care Note [code = 42850-9] Goal Plan of Care Note [code = 17114-8] Goal Plan of Care Note [code = 32268-7] Goal Plan of Care Note [code = 79413-6] Goal Plan of Care Note [code = 98565-8] Goal Plan of Care Note [code = 13172-8] Goal Plan of Care Note [code = 25055-0] Goal Plan of Care Note [code = 59584-2] Goal Plan of Care Note [code = 19627-1] Goal Plan of Care Note [code = 06794-1] Goal Plan of Care Note [code = 74579-2] Goal Plan of Care Note [code = 15221-2] Goal Plan of Care Note [code = 77546-6] Goal Plan of Care Note [code = 69983-8] Goal Plan of Care Note [code = 31182-5] Goal Plan of Care Note [code = 60992-2] Goal Plan of Care Note [code = 22039-5] Goal Plan of Care Note [code = 32331-9] Goal Plan of Care Note [code = 88150-9] Goal Plan of Care Note [code = 00379-5] Goal Plan of Care Note [code = 21027-5] Goal Plan of Care Note [code = 57947-6] Goal Plan of Care Note [code = 29252-1] Goal Plan of Care Note [code = 03804-9] Goal Plan of Care Note [code = 03027-2] Goal Plan of Care Note [code = 89157-0] Goal Plan of Care Note [code = 28079-1] Goal Plan of Care Note [code = 56477-6] Goal Plan of Care Note [code = 96638-6] Goal Plan of Care Note [code = 56114-6] Goal Plan of Care Note [code = 60373-9] Goal Plan of Care Note [code = 60019-0] Goal Plan of Care Note [code = 48020-7] Goal Plan of Care Note [code = 65787-8] Goal Plan of Care Note [code = 99313-0] Goal Plan of Care Note [code = 32569-9] Goal Plan of Care Note [code = 78243-6] Goal Plan of Care Note [code = 88850-5] Goal Plan of Care Note [code = 63831-0] Goal Plan of Care Note [code = 94959-6] Goal Plan of Care Note [code = 08293-9] Goal Plan of Care Note [code = 11958-2] Goal Plan of Care Note [code = 99147-2] Goal Plan of Care Note [code = 27792-5] Goal Plan of Care Note [code = 94364-4] Goal Plan of Care Note [code = 16145-7] Goal Plan of Care Note [code = 88335-8] Goal Plan of Care Note [code = 75411-4] Goal Plan of Care Note [code = 30792-9] Goal Plan of Care Note [code = 37688-6] Encounters Start End Encounter Admission Attending Care Care Encounter Source Date/Time Date/Time Type Type Clinicians Facility Department ID 2022-02-15 2022-02-15 Outpatient [facility] [id number] Tr 16:07:21 16:07:21 0103 F Jimmie 2022-02-15 2022-02-15 Outpatient [id number] [id number] 00:00:00 00:00:00 Visit 9b39-78nw d87-77gn-k -g485-w31 275-c95d0a k8qg5z953 u4j833 2022-02-01 2022-02-01 Outpatient [facility] [id number] 022 Tr 17:18:26 17:18:26 1220 F Jimmie 2022-02-01 2022-02-01 Outpatient [id number] [id number] 00:00:00 00:00:00 Visit 4541-4c26 541-4c26-a -u136-769 160-949e17 v09532d2f 928d7f 2022-01-21 2022-01-21 Outpatient [facility] [id number] 022 Tr 17:20:09 17:20:09 1209 F Jimmie 2022-01-21 2022-01-21 Outpatient [id number]- [id number] 00:00:00 00:00:00 Visit 3705-4f8b 705-4f8b-b -bdee-81d [facility]81df38 n315xd6t5 4ca4f7 2022-01-18 2022-01-18 Transition KARIN Gilliam 1.2.840.114 [id number] Univers 00:00:00 00:00:00 of Care Magda KILLIAN 350.1.13.10 ity of [place] 4.2.7.2.[address] [facility] [phone] [address] 2022-01-10 2022-01-17 Inpatient U [facility] [place] [id number] Univers 18:51:00 16:55:00 JONES ity of [facility] 2022-01-10 2022-01-17 [facility] Yosi Mariusz MARS 1.2.840.1 14 [id number] Univers 18:51:00 16:55:00 Encounter Arnold Mejia 350.1.13.1 0 ity of [facility] 4.2.7.2.686 [place] Jones Phipps [id number] Medical William, Tracie 099 B malvin 2022-01-12 2022-01-12 Travel 1.2.840.1 1.2.226.518 [id number] Univers 00:00:00 00:00:00 18922.1.1 350.1.13.10 ity of 3[place]3.[place] 084.8 Medica l .8 [facility] 2022-01-10 2022-01-10 Outpatient X GEORGI [facility] [place] [id number] Univers 18:51:00 18:51:00 ARNOLD mina o f [facility] 2022-01-10 2022-01-10 Travel 1.2.840.1 1.2.681.265 [id number] Univers 00:00:00 00:00:00 64966.1.1 350.1.13.10 ity of 3[place]104.2.[place] .3.269401 084.8 Medica l .8 Branch 2021-12-14 2021-12-[address] [facility] [id number] 022 Tr 16:02:46 16:02:46 1101 F Jimmie 2021-09-30 2021-10-01 Outpatient X PAULINA [facility] [place] [id number] Univers 15:27:00 16:00:00 PAYAL [facility] 2021-09-30 2021-10-01 Emergency Alana Jeanna S [facility] 1.2.840.1 14 [id number] Univers 15:27:00 16:00:00 Payal Gallardo 350.1.13.10 ity [facility] 4.2.7.2.686 [facility] [id number] [address] 2021-09-23 2021-09-23 Outpatient [id number] [id number] 00:00:00 00:00:00 Visit 29p4-7w15 4e4-9u08-f -hc43-85q o57-10s020 00018n37m 18e56c 2021-09-08 2021-09-09 Emergency X [facility] ERT [id number] Univers 21:26:00 01:05:00 RENATA [facility] 2021-09-08 2021-09-09 Emergency [facility] 1.2.840.114 [id number] Univers 21:26:00 01:05:00 Renata PERES 350.1.13.10 i ty [facility] 4.2.7.2.686 [facility] [id number] [address] 2021-08-18 2021-08-18 Outpatient [id number]- [id number] 5b 596ffc-c 00:00:00 00:00:00 Visit x9ze-77n8 1bb-45a6-a -abd4-751 bd4-500260 712d62401 h75122 2020-07-29 2020-07-29 Transition Karin Gilliam 1.2.840.114 [id number] Univers 00:00:00 00:00:00 of Care Magda Killian 350.1.13.10 it[place] [id number] [facility] 403 Branch 2020-07-27 2020-07-28 Hospital Tamika Vieira Sarah [facility] 1.2.84 0.114 [id number] Univers 00:57:00 14:59:00 Encounter Vitaliy Eason [facility] 350.1.13.10 [place] [id number] [facility] 110 Branch (CLC) 2020-07-27 2020-07-27 Emergency X ISHA [facility] ERT [id number] Univers 00:57:00 00:57:00 [facility] 2020-07-16 2020-07-16 Transition Karin Gilliam 1.2.840.114 [id number] Univers 00:00:00 00:00:00 of Care Magda Killian 350.1.13.10 [place] [phone] [facility] 403 Branch 2020-07-09 2020-07-14 [facility] [id number] Univers 00:23:00 12:00:00 MTCASELI ity [facility] 2020-07-09 2020-07-14 [facility] [place] 1.2.840. 114 [id number] Univers 00:23:00 12:00:00 Encounter Carolynn Douglas 350.1.13.10 it[place] of [place] [id number] [facility] 081 Branch Results Test Description Test Time Test Comments Results Result Comments Source BASIC METABOLIC PANEL (NA, K, CL, CO2, GLUCOSE, BUN, 2022-01 15:24:17 CREATININE, CA) Test Item Value Reference Range Interpretation Comme nts NA (test code = 2133035408) 137 mmol/L 135-145 K (test code = 7280869233) 4.4 mmol/L 3.5-5.0 CL (test code = 0303025311) 100 mmol/L 98-108 CO2 TOTAL (test code = 7024253616) 28 mmol/L 23-31 AGAP (test code = 4422657813) 2-16 BUN (test code = 3283761079) 14 mg/dL 7-23 GLUCOSE (test code = 8340778947) 121 mg/dL 70-110 H CREATININE (test code = 0.61 mg/dL 0.50-1.04 7868220552) CALCIUM (test code = 4409202903) 8.7 mg/dL 8.6-10.6 eGFR (test code = 1916096688) mL/min/1.73m2 MARIPOSA (test code = MARIPOSA) Association of Glomerular Filtration Rate (GFR) and Staging of Kidney Disease* + +-------- + ------+| GFR (mL/min/1.73 m2) ?| With Kidney Damage ?| ?Without Kidney Damage+ +-- + +| ?>90 ?| ?Stage one ?| ? Normal ?+ +------- + -------+| ?60-89 ?| ?Stage two ?| ? Decreased GFR ? + +-------- + ------+| ?30-59 ?| ?Stage three ?| ? Stage three ? + +-------- + ------+| ?15-29 ?| ?Stage four ? | ? Stage four ?+ +------- + -------+| ?<15 (or dialysis) ? ?| ?Stage five ? | ? Stage five ?+ +------- + -------+ *Each stage assumes the associated GFR [...] or abnormalities in imaging tests). Lab Interpretation (test code = Abnormal 63107-9) [facility] METABOLIC PANEL (NA, K, CL, CO2, GLUCOSE, BUN, CREATININE, CA)2022-01-16 15:24:17 Test Item Value Reference Range Interpretation Comments NA (test code = 137 mmol/L 135-145 3584671996) K (test code = 4.4 mmol/L 3.5-5.0 4092675798) CL (test code = 100 mmol/L 98-108 9864079010) CO2 TOTAL (test code = 28 mmol/L 23-31 8915562160) AGAP (test code = 2-16 0198895598) BUN (test code = 14 mg/dL 7-23 7619800287) GLUCOSE (test code = 121 mg/dL 70-110 H 1314026503) CREATININE (test code = 0.61 mg/dL 0.50-1.04 4901302621) CALCIUM (test code = 8.7 mg/dL 8.6-10.6 0891177499) eGFR (test code = mL/min/1.73m2 5768512836) MARIPOSA (test code = MARIPOSA) Association of [...] tests). Lab Interpretation Abnormal (test code = 43578-9) [facility] GLUCOSE (AUTOMATED)2022-01-15 18:40:12 Test Item Value Reference Range Interpretation Comments POCT GLU (test code = 9017318412) 182 mg/dL 70-110 H Lab Interpretation (test code = Abnormal 11626-0) [facility] GLUCOSE (AUTOMATED)2022-01-15 18:40:12 Test Item Value Reference Range Interpretation Comments POCT GLU (test code = 7729892081) 182 mg/dL 70-110 H Lab Interpretation (test code = Abnormal 76470-8) [facility] [id number] 12:21:06 Test Item Value Reference Range Interpretation Comments PHOSPHORUS (test code = 6565387015) 5.6 mg/dL 2.5-5.0 H Lab Interpretation (test code = Abnormal 02578-2) [facility] GLUCOSE (AUTOMATED)2021-10-01 16:55:39 Test Item Value Reference Range Interpretation Comments POCT GLU (test code = 2314098917) 221 mg/dL 70-110 H Lab Interpretation (test code = Abnormal 11283-6) [facility] GLUCOSE (AUTOMATED)2021-10-01 12:39:20 Test Item Value Reference Range Interpretation Comments POCT GLU (test code = 2586339278) 185 mg/dL 70-110 H Lab Interpretation (test code = Abnormal 28194-4) [facility] Kmptc9214-92-92 11:06:03 Test Item Value Reference Range Interpretation Comments MAGNESIUM (test code = 9866214211) 2.0 mg/dL 1.7-2.4 Lab Interpretation (test code = Normal 68380-2) [facility] (NA, K, CL, CO2, GLUCOSE, BUN, CREATININE, CA)2021-10-01 11:05:43 Test Item Value Reference Range Interpretation Comments NA (test code = 139 mmol/L 135-145 4552071607) K (test code = 4.5 mmol/L 3.5-5 9513717019) CL (test code = 100 mmol/L 98-108 4976292305) CO2 TOTAL (test code = 33 mmol/L 23-31 H 5328028250) AGAP (test code = 2-16 5330514261) BUN (test code = 11 mg/dL 7-23 2661388494) GLUCOSE (test code = 197 mg/dL 70-110 H 6225585539) CREATININE (test code = 0.42 mg/dL 0.5-1.04 L 5216064603) CALCIUM (test code = 8.8 mg/dL 8.6-10.6 2552768145) eGFR (test code = mL/min/1.73m2 7109404800) MARIPOSA (test code = MARIPOSA) Association of [...] tests). Lab Interpretation Abnormal (test code = 88984-3) [facility] [id number] 11:05:23 Test Item Value Reference Range Interpretation Comments PHOSPHORUS (test code = 6627027718) 3.9 mg/dL 2.5-5 Lab Interpretation (test code = Normal 32439-8) [facility][id number] 11:00:23 Test Item Value Reference Interpretation Comments Range D-DIMER (test code = See_Comment H [Autom ated 0568141766) message] The system which generated this result [...] diagnosis. Lab Interpretation Abnormal (test code = 11240-0) [facility] with Tqgjpklpsmal7266-38-39 10:20:16 Test Item Value Reference Range Interpretation Comments WBC (test code = See_Comment [Automated 2403-2) message] The sy stem which generated this result transmitted reference range : 4.30 - 11.10 10*3/?L. The reference range was not used to interpret this result as normal/abnormal . RBC (test code = See_Comment [Automated 715-8) message] The sy stem which generated this [...] (test code = 50.0 fL 39-49.9 H 09728-7) RDW-CV (test code = 15.9 % 12-15.5 H 788-0) PLT (test code = See_Comment [Automated 777-3) message] The sy stem which generated this result transmitted reference range : 166 - 358 10*3/ ?L. The reference r palmira was not used to interpret this result as normal/abnormal . MPV (test code = 10.4 fL 9.5-12.9 12962-0) NRBC/100 WBC (test See_Comment [Automat ed code = 6640970318) message] The system which generated this result transmitted reference range : 0.0 - 10.0 /100 WBCs. The refer ence range was not u sed to interpret th is result as normal/abnormal . NRBC x10^3 (test code See_Comment [Auto mated = 7085171313) message] The s ystem which generated this result transmitted reference range : 10*3/?L. The reference range was not used to interpret this result as normal/abnormal . GRAN MAT (NEUT) % 86.5 % (test code = 770-8) IMM GRAN % (test code 1.80 % = 1848116342) LYMPH % (test code = 9.5 % 736-9) MONO % (test code = 1.9 % 5905-5) EOS % (test code = 0.1 % 713-8) BASO % (test code = 0.2 % 706-2) GRAN MAT x10^3(ANC) 8.33 10*3/uL 1.88-7.09 H (test code = 1579403666) IMM GRAN x10^3 (test 0.17 10*3/uL 0-0.06 H code = 9252503978) LYMPH x10^3 (test code 0.91 10*3/uL 1.32-3.29 L = 731-0) MONO x10^3 (test code 0.18 10*3/uL 0.33-0.92 L = 742-7) EOS x10^3 (test code = 0.03-0.39 L 711-2) BASO x10^3 (test code 0.01-0.07 = 704-7) Lab Interpretation Abnormal (test code = 10523-4) [facility] GLUCOSE (AUTOMATED)2021-10-01 09:03:23 Test Item Value Reference Range Interpretation Comments POCT GLU (test code = [id number]) 180 mg/dL 70-110 H Lab Interpretation (test code = Abnormal 25602-1) [facility] GLUCOSE (AUTOMATED)2021-10-01 02:44:00 Test Item Value Reference Range Interpretation Comments POCT GLU (test code = [id number]) 307 mg/dL 70-110 H Lab Interpretation (test code = Abnormal 86234-1) [facility] (A1C)2021-10-01 01:56:57 Test Item Value Reference Range Interpretation Comments HGB A1C (test code = 7.3 % 4-5.7 H 4548-4) MARIPOSA (test code = MARIPOSA) Reference RangesNormal: <5.7%Prediabetes: 5.7 - 6.4%Diabetes: > 6.5% Lab Interpretation (test Abnormal code = 93918-9) [facility] Care Arterial Blood Gas.2021-09-30 22:42:07 Test Item Value Reference Range Interpretation Comments PH (test code = 2) 7.35-7.45 PCO2 (test code = See_Comment H [Automate d message] [id number]) The system E-Sign generated this result transmitted ref erence range: 35 - 45 mmHg. The reference r palmira was not used to interpret this result as normal/abnor mal. PO2 (test code = See_Comment [Automated message] 8278608392) The system E-Sign generated this result transmitted ref erence range: 80 - 100 mmHg. The reference r palmira was not used to interpret this result as normal/abnor mal. HCO3 (test code = See_Comment H [Automate d message] [id number]) The system E-Sign generated this result transmitted ref erence range: 22 - 26 mEq/L. The reference r palmira was not used to interpret this result as normal/abnor mal. BE (test code = See_Comment [Automated message] 4024153037) The system E-Sign generated this result transmitted ref erence range: -3.0 - 3 .0 mEq/L. The refe rence range was not u sed to interpret this result as normal/abnor mal. Lab Interpretation (test Abnormal code = 13481-7) [facility] [id number] 21:29:19 Test Item Value Reference Interpretation Comments Range TROPONIN I (test 0.001 ng/mL See_Comment [Automated code = 6575896644) message] The system which generated this result [...] biotin. Lab Interpretation Normal (test code = 88959-3) [facility] [id number] 21:26:16 Test Item Value Reference Range Interpretation Comments NT-proBNP (test code 45 pg/mL See_Comment [Autom ated = 8912908036) message] The system which generated this result transmitted reference range : <=125. The reference range was not used to interpret this result as normal/abnormal . MARIPOSA (test code = MARIPOSA) Biotin has been reported to cause a negative bias, interpret results relative to patient's use of biotin. Lab Interpretation Normal (test code = 90356-7) [facility] METABOLIC PANEL (33385)2021-09-30 21:18:56 Test Item Value Reference Range Interpretation Comments NA (test code = 139 mmol/L 135-145 3921463869) K (test code = 4.3 mmol/L 3.5-5 8688055145) CL (test code = 99 mmol/L 98-108 5514281869) CO2 TOTAL (test code = 31 mmol/L 23-31 1250971021) AGAP (test code = 2-16 1735643590) BUN (test code = 12 mg/dL 7-23 2823623071) GLUCOSE (test code = 140 mg/dL 70-110 H 5232097679) CREATININE (test code = 0.40 mg/dL 0.5-1.04 L 7286414630) TOTAL BILI (test code = 0.3 mg/dL 0.1-1.3 9952458808) CALCIUM (test code = 9.3 mg/dL 8.6-10.6 4361042474) T PROTEIN (test code = 7.6 g/dL 6.3-8.2 3321417425) ALBUMIN (test code = 4.5 g/dL 3.5-5 1619019973) ALK PHOS (test code = 115 U/L 34-122 1407638463) ALTv (test code = 24 U/L 5-35 1742-6) AST(SGOT) (test code = 26 U/L 13-40 5242026978) eGFR (test code = mL/min/1.73m2 3010323658) MARIPOSA (test code = MARIPOSA) Association of [...] tests). Lab Interpretation Abnormal (test code = 69090-3) [facility] WITH [id number] 21:08:31 Test Item Value Reference Range Interpretation [...] (test code = 50.0 fL 39-49.9 H 46235-2) RDW-CV (test code = 16.0 % 12-15.5 H 788-0) PLT (test code = See_Comment [Automated 777-3) message] The sy stem which generated this result transmitted reference range : 166 - 358 10*3/ ?L. The reference r palmira was not used to interpret this result as normal/abnormal . MPV (test code = 10.3 fL 9.5-12.9 04210-5) NRBC/100 WBC (test See_Comment [Automat ed code = 9223587791) message] The system which generated this result transmitted reference range : 0.0 - 10.0 /100 WBCs. The refer ence range was not u sed to interpret th is result as normal/abnormal . NRBC x10^3 (test code See_Comment [Auto mated = 2555221689) message] The s ystem which generated this result transmitted reference range : 10*3/?L. The reference range was not used to interpret this result as normal/abnormal . GRAN MAT (NEUT) % 67.8 % (test code = 770-8) IMM GRAN % (test code 0.80 % = 5574310865) LYMPH % (test code = 19.8 % 736-9) MONO % (test code = 5.0 % 5905-5) EOS % (test code = 6.1 % 713-8) BASO % (test code = 0.5 % 706-2) GRAN MAT x10^3(ANC) 6.59 10*3/uL 1.88-7.09 (test code = 6022148543) IMM GRAN x10^3 (test 0.08 10*3/uL 0-0.06 H code = 9400687453) LYMPH x10^3 (test code 1.92 10*3/uL 1.32-3.29 = 731-0) MONO x10^3 (test code 0.49 10*3/uL 0.33-0.92 = 742-7) EOS x10^3 (test code = 0.59 10*3/uL 0.03-0.39 H 711-2) BASO x10^3 (test code 0.05 10*3/uL 0.01-0.07 = 704-7) Lab Interpretation Abnormal (test code = 25659-5) [facility]NT-[id number] 05:08:21 Test Item Value Reference Range Interpretation Comments NT-proBNP <50 PG/ML SEE BELOW If NT-ProBNP i s less than 300 (test code = PG/ML, heart fa ilure is unlikely 52728) for allages. Age............ .....Heart Failure Likely <50 Years.......... .>=450 PG/ML 50-75 Years.... .....>=900 PG/ML > 75 Years..... .....>=1800 PG/ML Methodology: Ro pascale Lewis Electrochemilum inescense Immunoassay UNL ESS OTHERWISE INDICATED, ALL TESTING PERFORMED [facility], [facility]. [address] [facility], [place] [address] DEPARTMENT HEAD COLLEGE OR UNIVERSITY: Anai NICHOLEDESI OLIVAREZ Inga [id number] [facility] ACCREDITATION N O. [id number] 00:00:00 Test Item Value Reference Range Interpretation Comments NT-proBNP (test code = 64122) <50 PG/ML [id number] 00:00:00 Test Item Value Reference Range Interpretation Comments NT-proBNP (test code = 53999) <50 PG/ML [id number] 00:00:00 Test Item Value Reference Range Interpretation Comments NT-proBNP (test code = 88377) <50 PG/ML [id number] 00:00:00 Test Item Value Reference Range Interpretation Comments NT-proBNP (test code = 51023) <50 PG/ML [id number] 00:00:00 Test Item Value Reference Range Interpretation Comments NT-proBNP (test code = 07788) <50 PG/ML [id number] 00:00:00 Test Item Value Reference Range Interpretation Comments NT-proBNP (test code = 96649) <50 PG/ML [id number] 00:00:00 Test Item Value Reference Range Interpretation Comments NT-proBNP (test code = 56418) <50 PG/ML [id number] 00:00:00 Test Item Value Reference Range Interpretation Comments NT-proBNP (test code = 95096) <50 PG/ML [id number] 00:00:00 Test Item Value Reference Range Interpretation Comments NT-proBNP (test code = 98183) <50 PG/ML [id number] 00:00:00 Test Item Value Reference Range Interpretation Comments NT-proBNP (test code = 10703) <50 PG/ML [id number] 00:00:00 Test Item Value Reference Range Interpretation Comments NT-proBNP (test code = 97533) <50 PG/ML [id number] 00:00:00 Test Item Value Reference Range Interpretation Comments NT-proBNP (test code = 35600) <50 PG/ML VITAMIN D, 25 [id number] 05:02:19 Test Item Value Reference Range Interpretation [...] ATED, ALL TESTING PERFORM ED [facility], [facility]. [address] [place] [id number] LABORATORY DIRE CTOR: Philip NICHOLE CLIA NUMBER [id number] CAP ACCREDITATION N O. [id number] VITAMIN D, 25 [id number] 00:00:00 Test Item Value Reference Range Interpretation Comments VITAMIN D, 25 OH (test code = 4958) 13 NG/ML VITAMIN D, 25 [id number] 00:00:00 Test Item Value Reference Range Interpretation Comments VITAMIN D, 25 OH (test code = 4958) 13 NG/ML VITAMIN D, 25 [id number] 00:00:00 Test Item Value Reference Range Interpretation Comments VITAMIN D, 25 OH (test code = 4958) 13 NG/ML VITAMIN D, 25 [id number] 00:00:00 Test Item Value Reference Range Interpretation Comments VITAMIN D, 25 OH (test code = 4958) 13 NG/ML VITAMIN D, 25 [id number] 00:00:00 Test Item Value Reference Range Interpretation Comments VITAMIN D, 25 OH (test code = 4958) 13 NG/ML VITAMIN D, 25 [id number] 00:00:00 Test Item Value Reference Range Interpretation Comments VITAMIN D, 25 OH (test code = 4958) 13 NG/ML VITAMIN D, 25 [id number] 00:00:00 Test Item Value Reference Range Interpretation Comments VITAMIN D, 25 OH (test code = 4958) 13 NG/ML VITAMIN D, 25 [id number] 00:00:00 Test Item Value Reference Range Interpretation Comments VITAMIN D, 25 OH (test code = 4958) 13 NG/ML VITAMIN D, 25 [id number] 00:00:00 Test Item Value Reference Range Interpretation Comments VITAMIN D, 25 OH (test code = 4958) 13 NG/ML TSH, THIRD [id number] 02:31:01 Test Item Value Reference Range Interpretation Comments TSH, THIRD GENERATION (test code 0.564 UIU/ML 0.400-4.100 = 2821) [id number] 00:00:00 Test Item Value Reference Range Interpretation Comments TSH, THIRD GENERATION (test code 0.564 UIU/ML = 2821) [id number] 00:00:00 Test Item Value Reference Range Interpretation Comments TSH, THIRD GENERATION (test code 0.564 UIU/ML = 2821) [id number] 00:00:00 Test Item Value Reference Range Interpretation Comments TSH, THIRD GENERATION (test code 0.564 UIU/ML = 2821) [id number] 00:00:00 Test Item Value Reference Range Interpretation Comments TSH, THIRD GENERATION (test code 0.564 UIU/ML = 2821) [id number] 00:00:00 Test Item Value Reference Range Interpretation Comments TSH, THIRD GENERATION (test code 0.564 UIU/ML = 2821) [id number] 00:00:00 Test Item Value Reference Range Interpretation Comments TSH, THIRD GENERATION (test code 0.564 UIU/ML = 2821) [id number] 00:00:00 Test Item Value Reference Range Interpretation Comments TSH, THIRD GENERATION (test code 0.564 UIU/ML = 2821) [id number] 00:00:00 Test Item Value Reference Range Interpretation Comments TSH, THIRD GENERATION (test code 0.564 UIU/ML = 2821) [id number] 00:00:00 Test Item Value Reference Range Interpretation Comments TSH, THIRD GENERATION (test code 0.564 UIU/ML = 2821) [id number] 00:00:00 Test Item Value Reference Range Interpretation Comments TSH, THIRD GENERATION (test code 0.564 UIU/ML = 2821) [id number] 00:00:00 Test Item Value Reference Range Interpretation Comments TSH, THIRD GENERATION (test code 0.564 UIU/ML = 2821) [id number] 00:00:00 Test Item Value Reference Range Interpretation Comments TSH, THIRD GENERATION (test code 0.564 UIU/ML = 2821) [id number] 00:00:00 Test Item Value Reference Range Interpretation Comments TSH, THIRD GENERATION (test code 0.564 UIU/ML = 2821) [id number] 00:00:00 Test Item Value Reference Range Interpretation Comments TSH, THIRD GENERATION (test code 0.564 UIU/ML = 2821) LIPID [id number] 23:49:04 Test Item Value Reference Range Interpretation [...] MOREINFORMATION , SEE CLIENT ANNOUNCE MENT AT [email or web address] RISK RATIO LDL/HDL 2.21 RATIO <3.22 (test code = 2238) COMPREHENSIVE METABOLIC [id number] 23:49:04 Test Item Value Reference Range Interpretation Comments GLUCOSE (test code = 98 MG/DL 70-99 2216) BUN (test code = 6 MG/DL -2207) CREATININE (test 0.40 MG/DL 0.60-1.30 L code = 2214) eGFR (2020 CKD-EPI) 126 >60 (test code = 90054) ML/MIN/1.73 CALC BUN/CREAT (test 15 RATIO 6-28 code = 2235) SODIUM (test code = 140 MEQ/L 942-522 1047) POTASSIUM (test code 4.1 MEQ/L 3.5-5.4 = 2228) CHLORIDE (test code 99 MEQ/L 95-107 = [...] code = 15 U/L 5-40 2218) HEMOGLOBIN [id number] 04:29:07 Test Item Value Reference Range Interpretation Comments HEMOGLOBIN A1c (test 7.5 % 4.2-5.6 H [employer]IC AN DIABETES code = 06435) ASSOCIATION IDELINES FOR HGB A1C: PREDIABETES/INC REASED [...] ALTERN ATE TESTING OR LABORATORY C ONSULTATION. HEMOGLOBIN [id number] 00:00:00 Test Item Value Reference Range Interpretation Comments HEMOGLOBIN A1c (test code = 60734) 7.5 % HEMOGLOBIN [id number] 00:00:00 Test Item Value Reference Range Interpretation Comments HEMOGLOBIN A1c (test code = 87324) 7.5 % HEMOGLOBIN [id number] 00:00:00 Test Item Value Reference Range Interpretation Comments HEMOGLOBIN A1c (test code = 84954) 7.5 % COMPREHENSIVE METABOLIC [id number] 00:00:00 Test Item Value Reference Range Interpretation Comments GLUCOSE (test code = 2217) 98 MG/DL BUN (test code = 2208) 6 MG/DL CREATININE (test code = 2214) 0.40 MG/DL eGFR (2020 CKD-EPI) (test 126 ML/MIN/1.73 code = 37006) CALC BUN/CREAT (test code = 15 RATIO 2235) SODIUM (test code = 2231) 140 MEQ/L POTASSIUM (test code = 2228) 4.1 MEQ/L CHLORIDE (test code = 2215) 99 MEQ/L CARBON DIOXIDE (test code = 26 MEQ/L 220) CALCIUM (test code = 2209) 9.2 MG/DL [...] code = 2219) 15 U/L COMPREHENSIVE METABOLIC [id number] 00:00:00 Test Item Value Reference Range Interpretation Comments GLUCOSE (test code = 2217) 98 MG/DL BUN (test code = 2208) 6 MG/DL CREATININE (test code = 2214) 0.40 MG/DL eGFR (2020 CKD-EPI) (test 126 ML/MIN/1.73 code = 77722) CALC BUN/CREAT (test code = 15 RATIO 2235) SODIUM (test code = 2231) 140 MEQ/L POTASSIUM (test code = 2228) 4.1 MEQ/L CHLORIDE (test code = 2215) 99 MEQ/L CARBON DIOXIDE (test code = 26 MEQ/L 220) CALCIUM (test code = 2209) 9.2 MG/DL [...] (test code = 2219) 15 U/L LIPID [id number] 00:00:00 Test Item Value Reference Range Interpretation Comments CHOLESTEROL (test code = 2210) 176 MG/DL TRIGLYCERIDES (test code = 2232) 120 MG/DL HDL CHOLESTEROL (test code = 2220) 48 MG/DL CALC LDL CHOL (test code = 2237) 106 MG/DL RISK RATIO LDL/HDL (test code = 2.21 RATIO 8) HEMOGLOBIN [id number] 00:00:00 Test Item Value Reference Range Interpretation Comments HEMOGLOBIN A1c (test code = 86100) 7.5 % HEMOGLOBIN [id number] 00:00:00 Test Item Value Reference Range Interpretation Comments HEMOGLOBIN A1c (test code = 08904) 7.5 % COMPREHENSIVE METABOLIC [id number] 00:00:00 Test Item Value Reference Range Interpretation Comments GLUCOSE (test code = 2217) 98 MG/DL BUN (test code = 2208) 6 MG/DL CREATININE (test code = 2214) 0.40 MG/DL eGFR (2020 CKD-EPI) (test 126 ML/MIN/1.73 code = 00277) CALC BUN/CREAT (test code = 15 RATIO [...] (test code = 2219) 15 U/L LIPID [id number] 00:00:00 Test Item Value Reference Range Interpretation Comments CHOLESTEROL (test code = 2210) 176 MG/DL TRIGLYCERIDES (test code = 2232) 120 MG/DL HDL CHOLESTEROL (test code = 2220) 48 MG/DL CALC LDL CHOL (test code = 2237) 106 MG/DL RISK RATIO LDL/HDL (test code = 2.21 RATIO 2238) LIPID [id number] 00:00:00 Test Item Value Reference Range Interpretation Comments CHOLESTEROL (test code = 2210) 176 MG/DL TRIGLYCERIDES (test code = 2232) 120 MG/DL HDL CHOLESTEROL (test code = 2220) 48 MG/DL CALC LDL CHOL (test code = 2237) 106 MG/DL RISK RATIO LDL/HDL (test code = 2.21 RATIO 2238) HEMOGLOBIN [id number] 00:00:00 Test Item Value Reference Range Interpretation Comments HEMOGLOBIN A1c (test code = 97368) 7.5 % HEMOGLOBIN [id number] 00:00:00 Test Item Value Reference Range Interpretation Comments HEMOGLOBIN A1c (test code = 39394) 7.5 % HEMOGLOBIN [id number] 00:00:00 Test Item Value Reference Range Interpretation Comments HEMOGLOBIN A1c (test code = 91802) 7.5 % COMPREHENSIVE METABOLIC [id number] 00:00:00 Test Item Value Reference Range Interpretation Comments GLUCOSE (test code = 2217) 98 MG/DL BUN (test code = 2208) 6 MG/DL CREATININE (test code = 2214) 0.40 MG/DL eGFR (2020 CKD-EPI) (test 126 ML/MIN/1.73 code = 80804) CALC BUN/CREAT (test code = 15 RATIO 2234) SODIUM (test code = 2231) 140 MEQ/L [...] code = 2219) 15 U/L COMPREHENSIVE METABOLIC [id number] 00:00:00 Test Item Value Reference Range Interpretation Comments GLUCOSE (test code = 2217) 98 MG/DL BUN (test code = 2208) 6 MG/DL CREATININE (test code = 2214) 0.40 MG/DL eGFR (2020 CKD-EPI) (test 126 ML/MIN/1.73 code = 12566) CALC BUN/CREAT (test code = 15 RATIO [...] (test code = 2219) 15 U/L LIPID [id number] 00:00:00 Test Item Value Reference Range Interpretation Comments CHOLESTEROL (test code = 2210) 176 MG/DL TRIGLYCERIDES (test code = 2232) 120 MG/DL HDL CHOLESTEROL (test code = 2220) 48 MG/DL CALC LDL CHOL (test code = 2237) 106 MG/DL RISK RATIO LDL/HDL (test code = 2.21 RATIO 2238) LIPID [id number] 00:00:00 Test Item Value Reference Range Interpretation Comments CHOLESTEROL (test code = 2210) 176 MG/DL TRIGLYCERIDES (test code = 2232) 120 MG/DL HDL CHOLESTEROL (test code = 2220) 48 MG/DL CALC LDL CHOL (test code = 2237) 106 MG/DL RISK RATIO LDL/HDL (test code = 2.21 RATIO 2238) HEMOGLOBIN [id number] 00:00:00 Test Item Value Reference Range Interpretation Comments HEMOGLOBIN A1c (test code = 13223) 7.5 % HEMOGLOBIN [id number] 00:00:00 Test Item Value Reference Range Interpretation Comments HEMOGLOBIN A1c (test code = 18403) 7.5 % HEMOGLOBIN [id number] 00:00:00 Test Item Value Reference Range Interpretation Comments HEMOGLOBIN A1c (test code = 53221) 7.5 % COMPREHENSIVE METABOLIC [id number] 00:00:00 Test Item Value Reference Range Interpretation Comments GLUCOSE (test code = 2217) 98 MG/DL BUN (test code = 2208) 6 MG/DL CREATININE (test code = 2214) 0.40 MG/DL eGFR (2020 CKD-EPI) (test 126 ML/MIN/1.73 code = 64915) CALC BUN/CREAT (test code = 15 RATIO [...] code = 2219) 15 U/L COMPREHENSIVE METABOLIC [id number] 00:00:00 Test Item Value Reference Range Interpretation Comments GLUCOSE (test code = 2217) 98 MG/DL BUN (test code = 2208) 6 MG/DL CREATININE (test code = 2214) 0.40 MG/DL eGFR (2020 CKD-EPI) (test 126 ML/MIN/1.73 code = 23993) CALC BUN/CREAT (test code = 15 RATIO [...] A/G RATIO (test code = 1.4 RATIO 4) BILIRUBIN, TOTAL (test code = 0.3 MG/DL 2206) ALKALINE PHOSPHATASE (test 118 U/L code = 2204) AST (test code = 2218) 14 U/L ALT (test code = 2219) 15 U/L LIPID [id number] 00:00:00 Test Item Value Reference Range Interpretation Comments CHOLESTEROL (test code = 2210) 176 MG/DL TRIGLYCERIDES (test code = 2232) 120 MG/DL HDL CHOLESTEROL (test code = 2220) 48 MG/DL CALC LDL CHOL (test code = 2237) 106 MG/DL RISK RATIO LDL/HDL (test code = 2.21 RATIO 2238) LIPID [id number] 00:00:00 Test Item Value Reference Range Interpretation Comments CHOLESTEROL (test code = 2210) 176 MG/DL TRIGLYCERIDES (test code = 2232) 120 MG/DL HDL CHOLESTEROL (test code = 2220) 48 MG/DL CALC LDL CHOL (test code = 2237) 106 MG/DL RISK RATIO LDL/HDL (test code = 2.21 RATIO 2238) HEMOGLOBIN [id number] 00:00:00 Test Item Value Reference Range Interpretation Comments HEMOGLOBIN A1c (test code = 90630) 7.5 % HEMOGLOBIN [id number] 00:00:00 Test Item Value Reference Range Interpretation Comments HEMOGLOBIN A1c (test code = 94660) 7.5 % HEMOGLOBIN [id number] 00:00:00 Test Item Value Reference Range Interpretation Comments HEMOGLOBIN A1c (test code = 32052) 7.5 % COMPREHENSIVE METABOLIC [id number] 00:00:00 Test Item Value Reference Range Interpretation Comments GLUCOSE (test code = 2217) 98 MG/DL BUN (test code = 2208) 6 MG/DL CREATININE (test code = 2214) 0.40 MG/DL eGFR (2020 CKD-EPI) (test 126 ML/MIN/1.73 code = 76495) CALC BUN/CREAT (test code = 15 RATIO [...] code = 2219) 15 U/L COMPREHENSIVE METABOLIC [id number] 00:00:00 Test Item Value Reference Range Interpretation Comments GLUCOSE (test code = 2217) 98 MG/DL BUN (test code = 2208) 6 MG/DL CREATININE (test code = 2214) 0.40 MG/DL eGFR (2020 CKD-EPI) (test 126 ML/MIN/1.73 code = 50195) CALC BUN/CREAT (test code = 15 RATIO [...] (test code = 2219) 15 U/L LIPID [id number] 00:00:00 Test Item Value Reference Range Interpretation Comments CHOLESTEROL (test code = 2210) 176 MG/DL TRIGLYCERIDES (test code = 2232) 120 MG/DL HDL CHOLESTEROL (test code = 2220) 48 MG/DL CALC LDL CHOL (test code = 2237) 106 MG/DL RISK RATIO LDL/HDL (test code = 2.21 RATIO 2238) LIPID [id number] 00:00:00 Test Item Value Reference Range Interpretation Comments CHOLESTEROL (test code = 2210) 176 MG/DL TRIGLYCERIDES (test code = 2232) 120 MG/DL HDL CHOLESTEROL (test code = 2220) 48 MG/DL CALC LDL CHOL (test code = 2237) 106 MG/DL RISK RATIO LDL/HDL (test code = 2.21 RATIO 2238) LAB ONLY COVID [id number] 18:13:05COVID DMT InterpretationInterpretation/Recommendations: Molecular NAAT Tests for [...] COVID-19 testing the patient has had at [facility], including molecular NAAT testing (more commonly known as PCR testing and Rapid ID Now testing) and antibody testing. It does not take into account any testingthat a patient has had outside of the [facility] medical record. [facility] LABORATORY SERVICESCOVID IpgybliNAAB-CmN-4 Rapid ID NOW (no units) ? ? Date ? Value ? 07/27/2020 ? Not Detected ? ? ? 07/09/2020 ? Not Detected ? [facility]Un[facility] ANGIOGRAM [id number] 16:35:58CT SCAN OF THE CHEST WITH CONTRAST [...] edema orsmall airway disease should be considered. [facility], Radiant Results Inft User - 07/27/2020 [...] pulmonary edema orsmall airway disease should be considered.[facility] CentralMarkel [id number] 06:49:36 Test Item Value Reference Range Interpretation Comments TROPONIN I (test 0.004 ng/mL See_Comment [Automated code = 0408079131) message] The system which generated this result [...] ? Lab Interpretation Normal (test code = 76840-6) [facility] (NA, K, CL, CO2, GLUCOSE, BUN, CREATININE, CA)2020-07-27 06:39:54 Test Item Value Reference Range Interpretation Comments NA (test code = 138 mmol/L 135-145 7342989465) K (test code = 4.2 mmol/L 3.5-5.0 9335909520) CL (test code = 100 mmol/L 98-108 5853886505) CO2 TOTAL (test code = 31 mmol/L 23-31 8282719193) AGAP (test code = 2-16 9657551604) BUN (test code = 18 mg/dL 7-23 7369952675) GLUCOSE (test code = 162 mg/dL 70-110 H 6400876053) CREATININE (test code = 0.57 mg/dL 0.50-1.04 7478735751) CALCIUM (test code = 9.3 mg/dL 8.6-10.6 6703102056) eGFR (test code = mL/min/1.73m2 9798007264) MARIPOSA (test code = MARIPOSA) Association of [...] tests). Lab Interpretation Abnormal (test code = 12317-0) [facility] (ALB, T.PRO, BILI T, BU/BC, ALT, AST, ALK PHOS)2020-07-27 06:39:34 Test Item Value Reference Range Interpretation Comments TOTAL BILI (test code = 1919152940) 0.3 mg/dL 0.1-1.1 BILI UNCON (test code = 7482517209) 0.1 mg/dL 0.1-1.1 BILI CONJ (test code = 3828869621) 0.0 mg/dL 0.0-0.3 T PROTEIN (test code = 1375936266) 8.1 g/dL 6.3-8.2 ALBUMIN (test code = 4288707684) 4.3 g/dL 3.5-5.0 ALK PHOS (test code = 0399938104) 114 U/L 34-122 ALTv (test code = 1742-6) 22 U/L 5-35 AST(SGOT) (test code = 8790262721) 23 U/L 13-40 Lab Interpretation (test code = Normal 33342-4) [facility] (ID NOW RAPID TESTING)2020-07-27 06:39:33 Test Item Value Reference Range Interpretation Comments SARS-CoV-2 Rapid ID NOW Not Detected Not Detected (test code = 77819-8) MARIPOSA (test code = MARIPOSA) ID NOW COVID-19 Assay is an isothermal nucleic acid amplification test intended for the qualitative detection of nucleic acid from SARS-CoV-2 viral RNA in nasopharyngeal (ENTRY LEVEL ACCOUNT MANAGER) specimens. It is used under Emergency Use [...] indicated. Lab Interpretation Normal (test code = 43172-3) [facility] 1 [id number] 06:38:34 No acute cardiopulmonary disease. RL: [id number]: [id number] END OF REPORT ORDERING PHYSICIAN: ISHA LOERA [...] structures areunremarkable. IMPRESSIONNo acute cardiopulmonary disease.RL: [id number]: [id number] OF [id number] 06:24:36 Test Item Value Reference Range Interpretation [...] RDW-SD (test code = 49.0 fL 39.0-49.9 14043-1) RDW-CV (test code = 15.2 % 12.0-15.5 788-0) PLT (test code = See_Comment [Automated 777-3) message] The sy stem which generated this result transmitted reference range : 166 - 358 10*3/ ?L. The reference r palmira was not used to interpret this result as normal/abnormal . MPV (test code = 10.7 fL 9.5-12.9 90969-4) NRBC/100 WBC (test See_Comment [Automat ed code = [id number]) message] The system which generated this result transmitted reference range : 0.0 - 10.0 /100 WBCs. The refer ence range was not u sed to interpret th is result as normal/abnormal . NRBC x10^3 (test code <0.01 See_Comment [Auto mated = 7240771006) message] The s ystem which generated this result transmitted reference range : 10*3/?L. The reference range was not used to interpret this result as normal/abnormal . GRAN MAT (NEUT) % 67.2 % (test code = 770-8) IMM GRAN % (test code 0.60 % = 8693635956) LYMPH % (test code = 21.7 % 736-9) MONO % (test code = 3.3 % 5905-5) EOS % (test code = 6.6 % 713-8) BASO % (test code = 0.6 % 706-2) GRAN MAT x10^3(ANC) 7.05 10*3/uL 1.88-7.09 (test code = 3872514385) IMM GRAN x10^3 (test 0.06 10*3/uL 0.00-0.06 code = 6741326303) LYMPH x10^3 (test code 2.28 10*3/uL 1.32-3.29 = 731-0) MONO x10^3 (test code 0.35 10*3/uL 0.33-0.92 = 742-7) EOS x10^3 (test code = 0.69 10*3/uL 0.03-0.39 H 711-2) BASO x10^3 (test code 0.06 10*3/uL 0.01-0.07 = 704-7) Lab Interpretation Abnormal (test code = 16360-6) [facility]14 13:01:17 Test Item Value Reference Range Interpretation Comments POCT GLU (test code = 7615907185) 107 mg/dL 70-110 Lab Interpretation (test code = Normal 10137-0) [facility] [id number] 07:01:06 Test Item Value Reference Range Interpretation Comments Blood Culture-Aerobic No organisms No growth Previo us (test code = 13001-3) isolated prelim inary verified result was Culture [...] Culture-Anaerobic isolated preliminar y (test code = 66375-1) verifi ed result was Culture In Progress [...] CDT Lab Interpretation Normal (test code = 36892-7) [facility] [id number] 07:01:05 Test Item Value Reference Range Interpretation Comments Blood Culture-Aerobic No organisms No growth Previo us (test code = 42375-6) isolated prelim inary verified result was Culture [...] Culture-Anaerobic isolated preliminar y (test code = 58101-7) verifi ed result was Culture In Progress [...] CDT Lab Interpretation Normal (test code = 63035-3) [facility]2020-07-14 02:02:19 Test Item Value Reference Range Interpretation Comments POCT GLU (test code = 9056612314) 281 mg/dL 70-110 H Lab Interpretation (test code = Abnormal 07071-4) [facility] CentralMYCOPLASMA PNEUMONIAE ANTIBODY, [id number] 22:06:07 Test Item Value Reference Range Interpretation [...] an 12 months post-infection. Performed By: [facility] [address] [address] aboratory Director: Lisbet Odom MD [Aut omated message] The sy stem which generated this result transmit romero reference range : <=0.76. The reference r palmira was not used to int erpret this result as normal/abnormal . [facility] [id number] 16:48:41 Test Item Value Reference Range Interpretation Comments SPUTUM CULTURE 2+ Respiratory santhosh: (test code = 622-1) Commensal upper respiratory microorganisms only. Gram stain (test Few Epithelial cells code = 664-3) present MARIPOSA (test code = Bacterial pathogens MARIPOSA) associated with lower respiratory infections were not identified, which include Pseudomonas aeruginosa and Staphylococcus aureus (MRSA or MSSA). [facility]. METABOLIC PANEL (92798)2020-07-12 11:23:13 Test Item Value Reference Range Interpretation Comments NA (test code = 137 mmol/L 135-145 0914896055) K (test code = 4.9 mmol/L 3.5-5.0 8649974366) CL (test code = 96 mmol/L 98-108 L 0549480211) CO2 TOTAL (test code = 33 mmol/L 23-31 H 9048896601) AGAP (test code = 2-16 3842627479) BUN (test code = 13 mg/dL 7-23 8892688502) GLUCOSE (test code = 172 mg/dL 70-110 H 5239814523) CREATININE (test code = 0.40 mg/dL 0.50-1.04 L 7550408933) TOTAL BILI (test code = 0.5 mg/dL 0.1-1.8 1830526374) CALCIUM (test code = 9.4 mg/dL 8.6-10.6 7327097953) T PROTEIN (test code = 7.8 g/dL 6.3-8.2 0464046103) ALBUMIN (test code = 4.2 g/dL 3.5-5.0 8927941339) ALK PHOS (test code = 97 U/L 34-122 4527241708) ALTv (test code = 27 U/L 5-35 1742-6) AST(SGOT) (test code = 22 U/L 13-40 5691904494) eGFR (test code = mL/min/1.73m2 5927600128) MARIPOSA (test code = MARIPOSA) Association of [...] tests). Lab Interpretation Abnormal (test code = 31706-4) [facility] WITH [id number] 11:03:13 Test Item Value Reference Range Interpretation Comments WBC (test code = See_Comment [Automated 3746-2) message] The sy stem which generated this result transmitted reference range : 4.30 - 11.10 10*3/?L. The reference range was not used to interpret this result as normal/abnormal . RBC (test code = See_Comment [Automated 943-8) message] The sy stem which generated this [...] RDW-SD (test code = 47.8 fL 39.0-49.9 90780-9) RDW-CV (test code = 14.9 % 12.0-15.5 788-0) PLT (test code = See_Comment [Automated 810-3) message] The sy stem which generated this result transmitted reference range : 166 - 358 10*3/ ?L. The reference r palmira was not used to interpret this result as normal/abnormal . MPV (test code = 10.8 fL 9.5-12.9 63619-2) NRBC/100 WBC (test See_Comment [Automat ed code = 2750991358) message] The system which generated this result transmitted reference range : 0.0 - 10.0 /100 WBCs. The refer ence range was not u sed to interpret th is result as normal/abnormal . NRBC x10^3 (test code <0.01 See_Comment [Auto mated = 1125426884) message] The s ystem which generated this result transmitted reference range : 10*3/?L. The reference range was not used to interpret this result as normal/abnormal . GRAN MAT (NEUT) % 87.7 % (test code = 770-8) IMM GRAN % (test code 1.60 % = 0295665125) LYMPH % (test code = 9.0 % 736-9) MONO % (test code = 1.4 % 5905-5) EOS % (test code = 0.1 % 713-8) BASO % (test code = 0.2 % 706-2) GRAN MAT x10^3(ANC) 8.92 10*3/uL 1.88-7.09 H (test code = 4299612347) IMM GRAN x10^3 (test 0.16 10*3/uL 0.00-0.06 H code = 8635964702) LYMPH x10^3 (test code 0.92 10*3/uL 1.32-3.29 L = 731-0) MONO x10^3 (test code 0.14 10*3/uL 0.33-0.92 L = 742-7) EOS x10^3 (test code = <0.03 0.03-0.39 L 711-2) BASO x10^3 (test code <0.03 0.01-0.07 = 704-7) Lab Interpretation Abnormal (test code = 86209-8) [facility] THORAX WO [id number] 22:18:13 Patchy groundglass opacities in the bilateral lungs with more confluentconsolidative opacities in the right lower lobe, consistent with multifocalatypical pneumonia. No pleural effusion or abscess. RL: [id number]: [id number] End of report RING PHYSICIAN: MAYTE ADDISON [...] upper abdomen is normal. Osseous structuresare normal. [facility], Radiant Results Inft User - 07/11/2020 5:19 [...] pneumonia. No pleural effusion or abscess.RL: [id number]: [id number] of report [facility] [id number] 21:45:45 Test Item Value Reference Range Interpretation Comments FREE T4 (test code = See_Comment [Autom ated message] 8936565671) The system [employer] generated this result transmitted ref erence range: 0.78 - 2 .20 ng/dL:. The ref erence range was not u sed to interpret this result as normal/abnor mal. Lab Interpretation (test Normal code = 01108-2) [facility] [id number] 21:44:29 Test Item Value Reference Range Interpretation Comments FREE T3 (test code = 3772975001) 3.01 pg/mL 2.77-5.27 Lab Interpretation (test code = Normal 30375-8) [facility]MIN[facility] [id number] 10:51:09 Test Item Value Reference Range Interpretation Comments NT-proBNP (test code 38 pg/mL See_Comment [Autom ated = 7704615499) message] The system which generated this result transmitted reference range : <=125. The reference range was not used to interpret this result as normal/abnormal . MARIPOSA (test code = MARIPOSA) Biotin has been reported to cause a negative bias, interpret results relative to patient's use of biotin. Lab Interpretation Normal (test code = 98054-6) [facility]. METABOLIC PANEL (99579)2020-07-11 10:42:50 Test Item Value Reference Range Interpretation Comments NA (test code = 138 mmol/L 135-145 2573036262) K (test code = 4.5 mmol/L 3.5-5.0 3200707602) CL (test code = 101 mmol/L 98-108 2730612798) CO2 TOTAL (test code = 31 mmol/L 23-31 1036819534) AGAP (test code = 2-16 7455254839) BUN (test code = 15 mg/dL 7-23 1099939640) GLUCOSE (test code = 100 mg/dL 70-110 1001800221) CREATININE (test code = 0.46 mg/dL 0.50-1.04 L 8247146556) TOTAL BILI (test code = 0.5 mg/dL 0.1-1.7 2655394734) CALCIUM (test code = 8.9 mg/dL 8.6-10.6 5480201679) T PROTEIN (test code = 7.1 g/dL 6.3-8.2 9140100893) ALBUMIN (test code = 3.9 g/dL 3.5-5.0 6597927204) ALK PHOS (test code = 80 U/L 34-122 8767236873) ALTv (test code = 19 U/L 5-35 1742-6) AST(SGOT) (test code = 32 U/L 13-40 9196794190) eGFR (test code = mL/min/1.73m2 8576889386) MARIPOSA (test code = MARIPOSA) Association of [...] tests). Lab Interpretation Abnormal (test code = 07798-3) [facility]NEUMOCOCCAL [id number] 18:45:00 Test Item Value Reference Range Interpretation Comments S. pneumoniae antigen (test code = Negative Negative 7479588638) Lab Interpretation (test code = Normal 00424-7) [facility] [id number] 13:39:03 Test Item Value Reference Range Interpretation Comments URINE CULTURE (test No aerobic growth (< code = 630-4) 1000 CFU/mL) [facility] CentralSEDIMENTATION [id number] 11:16:54 Test Item Value Reference Range Interpretation Comments ESR (test code = See_Comment H [Automated message] 3577036004) The system [employer] generated this result transmitted ref erence range: 0 - 20 m m/HR. The reference r palmira was not used to interpret this result as normal/abnor mal. Lab Interpretation (test Abnormal code = 22927-9) [facility] CentralTROPONIN [id number] 10:13:54 Test Item Value Reference Range Interpretation Comments TROPONIN I (test 0.001 ng/mL See_Comment [Automated code = 1534254661) message] The system which generated this result [...] ? Lab Interpretation Normal (test code = 79363-1) [facility] [id number] 10:11:17 Test Item Value Reference Range Interpretation Comments NT-proBNP (test code 76 pg/mL See_Comment [Autom ated = 6512149536) message] The system which generated this result transmitted reference range : <=125. The reference range was not used to interpret this result as normal/abnormal . MARIPOSA (test code = MARIPOSA) Biotin has been reported to cause a negative bias, interpret results relative to patient's use of biotin. Lab Interpretation Normal (test code = 58326-7) [facility]. METABOLIC PANEL (70649)2020-07-10 10:02:17 Test Item Value Reference Range Interpretation Comments NA (test code = 137 mmol/L 135-145 0270860803) K (test code = 4.7 mmol/L 3.5-5.0 2235686076) CL (test code = 103 mmol/L 98-108 2368623940) CO2 TOTAL (test code 30 mmol/L 23-31 = 8814679161) AGAP (test code = 2-16 0820703200) BUN (test code = 17 mg/dL 7-23 0747469668) GLUCOSE (test code = 107 mg/dL 70-110 8143434580) CREATININE (test code 0.51 mg/dL 0.50-1.04 = 2153015600) TOTAL BILI (test code 0.4 mg/dL 0.1-1.1 = 3865648361) CALCIUM (test code = 9.0 mg/dL 8.6-10.6 5964238384) T PROTEIN (test code 6.9 g/dL 6.3-8.2 = 2536196663) ALBUMIN (test code = 3.8 g/dL 3.5-5.0 9916066524) ALK PHOS (test code = 79 U/L 34-122 3121415346) ALTv (test code = 16 U/L 5-35 1742-6) AST(SGOT) (test code 20 U/L 13-40 = 8333863660) eGFR (test code = mL/min/1.73m2 5594715436) MARIPOSA (test code = MARIPOSA) Association of [...] or urine or abnormalities in imaging tests). [facility]MAGN[facility]IUM2021-05-28 10:02:17 Test Item Value Reference Range Interpretation Comments MAGNESIUM (test code = 6908419389) 2.1 mg/dL 1.7-2.4 Lab Interpretation (test code = Normal 67051-3) [facility] WITH [id number] 09:51:36 Test Item Value Reference Range Interpretation Comments WBC (test code = See_Comment H [Automated 0295-2) message] The sy stem which generated this result transmitted reference range : 4.30 - 11.10 10*3/?L. The reference range was not used to interpret this result as normal/abnormal . RBC (test code = See_Comment [Automated 175-8) message] The sy stem which generated this [...] RDW-SD (test code = 49.4 fL 39.0-49.9 24902-9) RDW-CV (test code = 15.3 % 12.0-15.5 788-0) PLT (test code = See_Comment [Automated 777-3) message] The sy stem which generated this result transmitted reference range : 166 - 358 10*3/ ?L. The reference r palmira was not used to interpret this result as normal/abnormal . MPV (test code = 10.8 fL 9.5-12.9 76795-2) NRBC/100 WBC (test See_Comment [Automat ed code = 7789906087) message] The system which generated this result transmitted reference range : 0.0 - 10.0 /100 WBCs. The refer ence range was not u sed to interpret th is result as normal/abnormal . NRBC x10^3 (test code <0.01 See_Comment [Auto mated = 0964184960) message] The s ystem which generated this result transmitted reference range : 10*3/?L. The reference range was not used to interpret this result as normal/abnormal . GRAN MAT (NEUT) % 71.0 % (test code = 770-8) IMM GRAN % (test code 0.50 % = 3248413965) LYMPH % (test code = 18.6 % 736-9) MONO % (test code = 5.8 % 5905-5) EOS % (test code = 3.7 % 713-8) BASO % (test code = 0.4 % 706-2) GRAN MAT x10^3(ANC) 8.61 10*3/uL 1.88-7.09 H (test code = 7743237238) IMM GRAN x10^3 (test 0.06 10*3/uL 0.00-0.06 code = 2797279685) LYMPH x10^3 (test code 2.26 10*3/uL 1.32-3.29 = 731-0) MONO x10^3 (test code 0.71 10*3/uL 0.33-0.92 = 742-7) EOS x10^3 (test code = 0.45 10*3/uL 0.03-0.39 H 711-2) BASO x10^3 (test code 0.05 10*3/uL 0.01-0.07 = 704-7) Lab Interpretation Abnormal (test code = 65117-0) [facility] CentralRESPIRATORY PANEL BY [id number] 07:41:20 Test Item Value Reference Range Interpretation Comments Adenovirus (test code = Negative Negative 16807-1) Coronavirus HKU1 (test Negative Negative code = 18954-2) Coronavirus NL63 (test Negative Negative code = 98272-2) Coronavirus 229E (test Negative Negative code = 33244-4) Coronavirus OC43 (test Negative Negative code = 07753-6) Human Metapneumovirus Negative Negative (test code = 80932-5) Human Negative Negative Rhinovirus/Enterovirus (test code = 52032-3) Influenza A (test code = Negative Negative 30444-6) Influenza B (test code = Negative Negative 54742-2) Parainfluenza Virus 1 Negative Negative (test code = 74558-1) Parainfluenza Virus 2 Negative Negative (test code = 19825-4) Parainfluenza Virus 3 Negative Negative (test code = 03939-7) Parainfluenza Virus 4 Negative Negative (test code = 14539-4) Respiratory Syncytial Negative Negative Virus (test code = 55953-8) Bordetella parapertussis Negative Negative (test code = 40624-2) Bordetella pertussis Negative Negative (test code = 75322-3) Chlamydia pneumoniae Negative Negative (test code = 72605-5) Mycoplasma pneumoniae Negative Negative (test code = 19080-8) MARIPOSA (test code = MARIPOSA) Negative:A negative result does not rule-out infection. ?This assay does not test for all potential infectious agents. ? Positive:A positive test result does not necessarily indicate the presence of viable organism. ? Lab Interpretation (test Normal code = 56779-9) [facility] COVID [id number] 06:21:45COVID DMT InterpretationInterpretation/Recommendations: Molecular NAAT Tests for [...] COVID-19 testing the patient has had at [facility], including molecular NAAT testing (more commonly known as PCR testing and Rapid ID Now testing) and antibody testing. It does not take into account any testingthat a patient has had outside of the [facility] medical record. [facility] LABORATORY SERVICESCOVID QthwdnqGTUT-LaM-9 Rapid ID NOW (no units) ? ? Date ? Value ? 07/09/2020 ? Not Detected ? [facility] LABORATORY SERVICES [facility] CentralLEGIONELLA URINARY ANTIGEN [id number] 23:26:39 Test Item Value Reference Range Interpretation Comments Legionella Urinary Negative Negative Antigen (test code = 2954641034) MARIPOSA (test code = MARIPOSA) Negative for [...] test. Lab Interpretation (test Normal code = 15194-6) [facility] CentralTROPONIN [id number] 21:06:36 Test Item Value Reference Range Interpretation Comments TROPONIN I (test 0.002 ng/mL See_Comment [Automated code = 8978401360) message] The system which generated this result [...] ? Lab Interpretation Normal (test code = 76913-3) [facility],CLC OR [facility] ONLY - INFLUENZA A & B DIRECT [id number] 20:54:43 Test Item Value Reference Range Interpretation Comments Influenza A (test code = 82651-3) Negative Negative Influenza B (test code = 83471-0) Negative Negative Lab Interpretation (test code = Normal 63374-1) [facility] CentralPROCALCITONIN2021-05-27 17:02:04 Test Item Value Reference Interpretation Comments Range Procalcitonin (test <0.02 See_Comment [Automa romero code = 5567329006) message] The system which generated this result [...] p Lab Interpretation Normal (test code = 84285-2) [facility] CentralURE[facility] NITROGEN, URINE [id number] 16:26:49 Test Item Value Reference Range Interpretation Comments UREA N UR (test code = 0100594969) 546 mg/dL [facility] CentralPROTEIN CREAT RATIO URINE [id number] 13:05:11 Test Item Value Reference Range Interpretation Comments T. PROT U (test code = 2888-6) 22 mg/dL CREAT U (test code = 9914818029) 28.1 mg/dL Protein/Creatinine Ratio Urine 0.0-2.0 (test code = 1209598792) [facility] CentralSODIUM, URINE [id number] 13:01:14 Test Item Value Reference Range Interpretation Comments NA URINE (test code = 6168817572) 26 mmol/L [facility] CentralXR CHEST 1 [id number] 12:40:02 Right lower lung well-demarcated consolidation concerning for lobarpneumonia or atelectasis. Preliminary Report Dictated by Resident: Sushil Almauger MD., have reviewed this study and agree [...] this study and agree withthe above report. [facility] CentralTHYROID STIMULATING [id number] 12:35:31 Test Item Value Reference Range Interpretation Comments TSH (test code = See_Comment L [Automated message] 0706823340) The system [employer] generated this result transmitted ref erence range: 0.45 - 4 .70 mIU/L. The refe rence range was not u sed to interpret this result as normal/abnor mal. Lab Interpretation (test Abnormal code = 45611-7) [facility] CentralN-TERMINAL [id number] 12:14:52 Test Item Value Reference Range Interpretation Comments NT-proBNP (test code 46 pg/mL See_Comment [Autom ated = 7838867257) message] The system which generated this result transmitted reference range : <=125. The reference range was not used to interpret this result as normal/abnormal . MARIPOSA (test code = MARIPOSA) Biotin has been reported to cause a negative bias, interpret results relative to patient's use of biotin. Lab Interpretation Normal (test code = 75074-8) [facility] CentralURINALYSIS2021-05-27 12:10:35 Test Item Value Reference Range Interpretation Comments APPEARANCE (test code = Clear Clear 7070676309) COLOR (test code = Straw Yellow A 7708189430) PH (test code = 4.8-8.0 8967151695) SP GRAVITY (test code = 1.003-1.030 2145968055) GLU U QUAL (test code = Normal Normal 2675969936) BLOOD (test code = 2+ Negative A 4376577526) KETONES (test code = Negative Negative 1814797376) PROTEIN (test code = Negative Negative 2887-8) UROBILIN (test code = Normal Normal 4084059727) BILIRUBIN (test code = Negative Negative 6246501028) NITRITE (test code = Negative Negative 8267223683) LEUK CLIFFORD (test code = Negative Negative 5880851409) RBC/HPF (test code = See_Comment H [Autom ated message] 9507112326) The system [employer] generated this result transmitted ref erence range: 0 - 3 HP F. The reference range was not used to int erpret this result as normal/abnormal . WBC/HPF (test code = See_Comment [Autom ated message] 6932361883) The system [employer] generated this result transmitted ref erence range: 0 - 5 HP F. The reference range was not used to int erpret this result as normal/abnormal . BACTERIA (test code = Negative Negative 6809131846) SQ EPITH (test code = HPF 3701302557) Lab Interpretation (test Abnormal code = 71045-9) [facility] CentralLIPID PANEL (81422)(TOTAL CHOLESTEROL, TRIGLYCERIDES, HDL)2020-07-09 12:04:52 Test Item Value Reference Range Interpretation Comments CHOL (test code = 183 mg/dL 120-200 3228026669) HDL (test code = 61 mg/dL >50 3683443938) HDLC RATIO (test code = See_Comment [Au tomated message] 8362667668) The system [employer] generated this result transmit romero reference range : <=4.5. The refe rence range was not u sed to interpret th is result as normal/abnormal . TRIG (test code = 68 mg/dL 30-170 5266840957) LDL CHOL (test code = 108 mg/dL See_Comment [Auto mated message] 92726-6) The system [employer] generated this result transmit romero reference range : <=160. The refe rence range was not u sed to interpret th is result as normal/abnormal . VLDL (test code = 14 mg/dL 5-60 6618308617) Lab Interpretation (test Normal code = 19911-7) [facility] CentralPHOSPHORUS2021-05-27 12:04:52 Test Item Value Reference Range Interpretation Comments PHOSPHORUS (test code = 0149178413) 3.7 mg/dL 2.5-5.0 Lab Interpretation (test code = Normal 82611-6) [facility] CentralCREATINE [id number] 12:04:11 Test Item Value Reference Range Interpretation Comments CK (test code = 2488319766) 58 U/L 33-194 Lab Interpretation (test code = Normal 21647-7) [facility] CentralGLYCOSYLATED HEMOGLOBIN (A1C)2020-07-09 11:48:12 Test Item Value Reference Range Interpretation Comments HGB A1C (test code = 6.2 % 4.0-5.7 H 4548-4) MARIPOSA (test code = MARIPOSA) Reference RangesNormal: <5.7%Prediabetes: 5.7 - 6.4%Diabetes: > 6.5% Lab Interpretation (test Abnormal code = 38903-9) [facility] CentralTROPONIN [id number] 11:47:11 Test Item Value Reference Range Interpretation Comments TROPONIN I (test 0.000 ng/mL See_Comment [Automated code = 2557233598) message] The system which generated this result [...] ? Lab Interpretation Normal (test code = 46982-8) [facility] CentralPROTHROMBIN TIME / [id number] 11:40:31 Test Item Value Reference Range Interpretation Comments PROTIME PATIENT (test See_Comment [Auto mated message] code = 5964-2) The system [employer] generated this result transmitted ref erence range: 12.0 - 1 4.7 Seconds. The re ference range was not u sed to interpret this result as normal/abnor mal. INR (test code = 6301-6) Nor mal INR <1.1; Warfarin Therap eutic range 2.0 to 3. 0 or 2.5 to 3.5, dep ending upon the indica tions. Lab Interpretation (test Normal code = 95656-8) [facility] CentralMAGNESIUM2021-05-27 07:28:47 Test Item Value Reference Range Interpretation Comments MAGNESIUM (test code = 8350568757) 2.5 mg/dL 1.7-2.4 H Lab Interpretation (test code = Abnormal 76157-9) [facility] CentralCOMP. METABOLIC PANEL (75089)2020-07-09 07:28:27 Test Item Value Reference Range Interpretation Comments NA (test code = 135 mmol/L 135-145 2493961356) K (test code = 4.6 mmol/L 3.5-5.0 7262037665) CL (test code = 99 mmol/L 98-108 9382585275) CO2 TOTAL (test code = 26 mmol/L 23-31 0452380392) AGAP (test code = 2-16 8747244898) BUN (test code = 17 mg/dL 7-23 0781312728) GLUCOSE (test code = 190 mg/dL 70-110 H 8257637783) CREATININE (test code = 0.42 mg/dL 0.50-1.04 L 3050142263) TOTAL BILI (test code = 0.4 mg/dL 0.1-1.1 7308323728) CALCIUM (test code = 9.5 mg/dL 8.6-10.6 1305995512) T PROTEIN (test code = 8.8 g/dL 6.3-8.2 H 5106757151) ALBUMIN (test code = 4.5 g/dL 3.5-5.0 3642086845) ALK PHOS (test code = 126 U/L 34-122 H 8307549834) ALTv (test code = 20 U/L 5-35 1742-6) AST(SGOT) (test code = 29 U/L 13-40 5164873431) eGFR (test code = mL/min/1.73m2 6412086918) MARIPOSA (test code = MARIPOSA) Association of [...] tests). Lab Interpretation Abnormal (test code = 93751-5) [facility]2020-07-09 06:30:42 Test Item Value Reference Range Interpretation Comments SARS-CoV-2 Rapid ID NOW Not Detected Not Detected (test code = 24634-7) MARIPOSA (test code = MARIPOSA) ID NOW COVID-19 Assay is an isothermal nucleic acid amplification test intended for the qualitative detection of nucleic acid from SARS-CoV-2 viral RNA in nasopharyngeal (ENTRY LEVEL ACCOUNT MANAGER) specimens. It is used under Emergency Use [...] indicated. Lab Interpretation Normal (test code = 89627-3) [facility] WITH [id number] 06:24:59 Test Item Value Reference Range Interpretation Comments WBC (test code = See_Comment H [Automated 9978-2) message] The system which generated this result transmit romero reference range : 4.30 - 11.10 10*3/?L. The reference range was not used to interpret this result as normal/abnormal . RBC (test code = See_Comment [Automated 477-8) message] The system which generated this result [...] RDW-SD (test code = 46.9 fL 39.0-49.9 35641-6) RDW-CV (test code = 14.6 % 12.0-15.5 788-0) PLT (test code = See_Comment [Automated 777-3) message] The system which generated this result transmit romero reference range : 166 - 358 10*3/ ?L. The reference range was not u sed to interpret th is result as normal/abnormal . MPV (test code = 10.9 fL 9.5-12.9 62064-6) NRBC/100 WBC (test See_Comment [Automat ed code = [id number]) message] The system which generated this result transmit romero reference range : 0.0 - 10.0 /100 WBCs. The reference range was not used to interpret this result as normal/abnormal . NRBC x10^3 (test code See_Comment [Auto mated = [id number]) message] The system which generated this result transmit romero reference range : 10*3/?L. The reference range was not used to interpret this result as normal/abnormal . GRAN MAT (NEUT) % 85.9 % (test code = 770-8) IMM GRAN % (test code 1.50 % = 9859952815) LYMPH % (test code = 10.9 % 736-9) MONO % (test code = 1.3 % 5905-5) EOS % (test code = 0.1 % 713-8) BASO % (test code = 0.3 % 706-2) GRAN MAT x10^3(ANC) 12.67 10*3/uL 1.88-7.09 H (test code = 3490950902) IMM GRAN x10^3 (test 0.22 10*3/uL 0.00-0.06 H code = 7650456504) LYMPH x10^3 (test code 1.61 10*3/uL 1.32-3.29 = 731-0) MONO x10^3 (test code 0.19 10*3/uL 0.33-0.92 L = 742-7) EOS x10^3 (test code = <0.03 0.03-0.39 L 711-2) BASO x10^3 (test code 0.05 10*3/uL 0.01-0.07 = 704-7) Lab Interpretation Abnormal (test code = 18008-0) [facility] [id number] 06:04:00Miguel Mendoza MD ? ? 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 ?Critical [...] patient or surrogate and [facility] [id number] 00:00:00 Test Item Value Reference Range Interpretation Comments TROPONIN T (test code = 4017) <0.010 UG/L CBC W/AUTO [id number] 00:00:00 Test Item Value Reference Range Interpretation [...] NUCLEATED RBCS (test code = 0.00 K/UL 71874) CBC W/AUTO [id number] 00:00:00 Test Item Value Reference Range Interpretation [...] NUCLEATED RBCS (test code = 0.00 K/UL 24365) CBC W/AUTO [id number] 00:00:00 Test Item Value Reference Range Interpretation [...] NUCLEATED RBCS (test code = 0.00 K/UL 30089) HEMOGLOBIN [id number] 00:00:00 Test Item Value Reference Range Interpretation Comments HEMOGLOBIN A1c (test code = 01823) 6.2 % HEMOGLOBIN [id number] 00:00:00 Test Item Value Reference Range Interpretation Comments HEMOGLOBIN A1c (test code = 74759) 6.2 % HEMOGLOBIN [id number] 00:00:00 Test Item Value Reference Range Interpretation Comments HEMOGLOBIN A1c (test code = 26719) 6.2 % COMPREHENSIVE METABOLIC [id number] 00:00:00 Test Item Value Reference Range Interpretation Comments GLUCOSE (test code = 2217) 101 MG/DL BUN (test code = 2208) 12 MG/DL CREATININE (test code = 2214) 0.45 MG/DL eGFR AMER. (test code 143 ML/MIN/1.73 = 27219) eGFR NON- AMER. (test 124 ML/MIN/1.73 code = 56736) CALC BUN/CREAT (test code = 27 RATIO [...] code = 2219) 17 U/L COMPREHENSIVE METABOLIC [id number] 00:00:00 Test Item Value Reference Range Interpretation Comments GLUCOSE (test code = 2217) 101 MG/DL BUN (test code = 2208) 12 MG/DL CREATININE (test code = 2214) 0.45 MG/DL eGFR AMER. (test code 143 ML/MIN/1.73 = 92988) eGFR NON- AMER. (test 124 ML/MIN/1.73 code = 23599) CALC BUN/CREAT (test code = 27 RATIO [...] (test code = 2219) 17 U/L TROPONIN [id number] 00:00:00 Test Item Value Reference Range Interpretation Comments TROPONIN T (test code = 4017) <0.010 UG/L CBC W/AUTO [id number] 00:00:00 Test Item Value Reference Range Interpretation [...] NUCLEATED RBCS (test code = 0.00 K/UL 30854) CBC W/AUTO [id number] 00:00:00 Test Item Value Reference Range Interpretation [...] NUCLEATED RBCS (test code = 0.00 K/UL 04395) HEMOGLOBIN [id number] 00:00:00 Test Item Value Reference Range Interpretation Comments HEMOGLOBIN A1c (test code = 74940) 6.2 % HEMOGLOBIN [id number] 00:00:00 Test Item Value Reference Range Interpretation Comments HEMOGLOBIN A1c (test code = 91513) 6.2 % COMPREHENSIVE METABOLIC [id number] 00:00:00 Test Item Value Reference Range Interpretation Comments GLUCOSE (test code = 2217) 101 MG/DL BUN (test code = 2208) 12 MG/DL CREATININE (test code = 2214) 0.45 MG/DL eGFR AMER. (test code 143 ML/MIN/1.73 = 77617) eGFR NON- AMER. (test 124 ML/MIN/1.73 code = 65931) CALC BUN/CREAT (test code = 27 RATIO 2235) SODIUM (test code = 2231) 143 MEQ/L POTASSIUM (test code = 2228) 4.4 MEQ/L CHLORIDE (test code = 2215) 105 MEQ/L CARBON DIOXIDE (test code = 27 MEQ/L 2205) CALCIUM (test code = 2209) 9.4 MG/DL PROTEIN, TOTAL (test code = 7.7 G/DL 2228) ALBUMIN (test code = 2201) 4.1 G/DL CALC GLOBULIN (test code = 3.6 G/DL 0) CALC A/G RATIO (test code = 1.1 RATIO 2233) BILIRUBIN, TOTAL (test code = 0.3 MG/DL 2206) ALKALINE PHOSPHATASE (test 102 U/L code = 2204) AST (test code = 2218) 15 U/L ALT (test code = 2219) 17 U/L TROPONIN [id number] 00:00:00 Test Item Value Reference Range Interpretation Comments TROPONIN T (test code = 4017) <0.010 UG/L TROPONIN [id number] 00:00:00 Test Item Value Reference Range Interpretation Comments TROPONIN T (test code = 4017) <0.010 UG/L CBC W/AUTO [id number] 00:00:00 Test Item Value Reference Range Interpretation [...] NUCLEATED RBCS (test code = 0.00 K/UL 06236) CBC W/AUTO [id number] 00:00:00 Test Item Value Reference Range Interpretation [...] NUCLEATED RBCS (test code = 0.00 K/UL 59753) CBC W/AUTO [id number] 00:00:00 Test Item Value Reference Range Interpretation [...] NUCLEATED RBCS (test code = 0.00 K/UL 44252) HEMOGLOBIN [id number] 00:00:00 Test Item Value Reference Range Interpretation Comments HEMOGLOBIN A1c (test code = 39019) 6.2 % HEMOGLOBIN [id number] 00:00:00 Test Item Value Reference Range Interpretation Comments HEMOGLOBIN A1c (test code = 08715) 6.2 % HEMOGLOBIN [id number] 00:00:00 Test Item Value Reference Range Interpretation Comments HEMOGLOBIN A1c (test code = 56959) 6.2 % COMPREHENSIVE METABOLIC [id number] 00:00:00 Test Item Value Reference Range Interpretation Comments GLUCOSE (test code = 2217) 101 MG/DL BUN (test code = 2208) 12 MG/DL CREATININE (test code = 2214) 0.45 MG/DL eGFR AMER. (test code 143 ML/MIN/1.73 = 18665) eGFR NON- AMER. (test 124 ML/MIN/1.73 code = 69249) CALC BUN/CREAT (test code = 27 RATIO 2235) SODIUM (test code = 2231) 143 MEQ/L POTASSIUM (test code = 2228) 4.4 MEQ/L CHLORIDE (test code = 2215) 105 MEQ/L CARBON DIOXIDE (test code = 27 MEQ/L 2205) CALCIUM (test code = 2209) 9.4 MG/DL PROTEIN, TOTAL (test code = 7.7 G/DL 2228) ALBUMIN (test code = 2201) 4.1 G/DL CALC GLOBULIN (test code = 3.6 G/DL 2240) CALC A/G RATIO (test code = 1.1 RATIO 2234) BILIRUBIN, TOTAL (test code = 0.3 MG/DL 220) ALKALINE PHOSPHATASE (test 102 U/L code = 2204) AST (test code = 2218) 15 U/L ALT (test code = 2219) 17 U/L COMPREHENSIVE METABOLIC [id number] 00:00:00 Test Item Value Reference Range Interpretation Comments GLUCOSE (test code = 2217) 101 MG/DL BUN (test code = 2208) 12 MG/DL CREATININE (test code = 2214) 0.45 MG/DL eGFR AMER. (test code 143 ML/MIN/1.73 = 80129) eGFR NON- AMER. (test 124 ML/MIN/1.73 code = 83766) CALC BUN/CREAT (test code = 27 RATIO 2235) SODIUM (test code = 2231) 143 MEQ/L POTASSIUM (test code = 2228) 4.4 MEQ/L CHLORIDE (test code = 2215) 105 MEQ/L CARBON DIOXIDE (test code = 27 MEQ/L 2205) CALCIUM (test code = 2209) [...] (test code = 2219) 17 U/L TROPONIN [id number] 00:00:00 Test Item Value Reference Range Interpretation Comments TROPONIN T (test code = 4017) <0.010 UG/L TROPONIN [id number] 00:00:00 Test Item Value Reference Range Interpretation Comments TROPONIN T (test code = 4017) <0.010 UG/L CBC W/AUTO [id number] 00:00:00 Test Item Value Reference Range Interpretation [...] NUCLEATED RBCS (test code = 0.00 K/UL 14759) CBC W/AUTO [id number] 00:00:00 Test Item Value Reference Range Interpretation [...] NUCLEATED RBCS (test code = 0.00 K/UL 26647) CBC W/AUTO [id number] 00:00:00 Test Item Value Reference Range Interpretation [...] NUCLEATED RBCS (test code = 0.00 K/UL 66583) HEMOGLOBIN [id number] 00:00:00 Test Item Value Reference Range Interpretation Comments HEMOGLOBIN A1c (test code = 00118) 6.2 % HEMOGLOBIN [id number] 00:00:00 Test Item Value Reference Range Interpretation Comments HEMOGLOBIN A1c (test code = 33183) 6.2 % HEMOGLOBIN [id number] 00:00:00 Test Item Value Reference Range Interpretation Comments HEMOGLOBIN A1c (test code = 78850) 6.2 % COMPREHENSIVE METABOLIC [id number] 00:00:00 Test Item Value Reference Range Interpretation Comments GLUCOSE (test code = 2217) 101 MG/DL BUN (test code = 2208) 12 MG/DL CREATININE (test code = 2214) 0.45 MG/DL eGFR AMER. (test code 143 ML/MIN/1.73 = 14193) eGFR NON- AMER. (test 124 ML/MIN/1.73 code = 68558) CALC BUN/CREAT (test code = 27 RATIO [...] CALC GLOBULIN (test code = 3.6 G/DL 0) CALC A/G RATIO (test code = 1.1 RATIO 2233) BILIRUBIN, TOTAL (test code = 0.3 MG/DL 2206) ALKALINE PHOSPHATASE (test 102 U/L code = 2204) AST (test code = 2218) 15 U/L ALT (test code = 2219) 17 U/L COMPREHENSIVE METABOLIC [id number] 00:00:00 Test Item Value Reference Range Interpretation Comments GLUCOSE (test code = 2217) 101 MG/DL BUN (test code = 2208) 12 MG/DL CREATININE (test code = 2214) 0.45 MG/DL eGFR AMER. (test code 143 ML/MIN/1.73 = 57572) eGFR NON- AMER. (test 124 ML/MIN/1.73 code = 92355) CALC BUN/CREAT (test code = 27 RATIO 2235) SODIUM (test code = 2231) 143 MEQ/L POTASSIUM (test code = 2228) 4.4 MEQ/L CHLORIDE (test code = 2215) 105 MEQ/L CARBON DIOXIDE (test code = 27 MEQ/L 2206) CALCIUM (test code = 2209) 9.4 MG/DL PROTEIN, TOTAL (test code = 7.7 G/DL 2229) ALBUMIN (test code = 2201) 4.1 G/DL CALC GLOBULIN (test code = 3.6 G/DL 2240) CALC A/G RATIO (test code = 1.1 RATIO 2234) BILIRUBIN, TOTAL (test code = 0.3 MG/DL 2206) ALKALINE PHOSPHATASE (test 102 U/L code = 2204) AST (test code = 2218) 15 U/L ALT (test code = 2219) 17 U/L TROPONIN [id number] 00:00:00 Test Item Value Reference Range Interpretation Comments TROPONIN T (test code = 4017) <0.010 UG/L TROPONIN [id number] 00:00:00 Test Item Value Reference Range Interpretation Comments TROPONIN T (test code = 4017) <0.010 UG/L CBC W/AUTO [id number] 00:00:00 Test Item Value Reference Range Interpretation [...] NUCLEATED RBCS (test code = 0.00 K/UL 02455) CBC W/AUTO [id number] 00:00:00 Test Item Value Reference Range Interpretation [...] NUCLEATED RBCS (test code = 0.00 K/UL 99707) CBC W/AUTO [id number] 00:00:00 Test Item Value Reference Range Interpretation [...] NUCLEATED RBCS (test code = 0.00 K/UL 71677) HEMOGLOBIN [id number] 00:00:00 Test Item Value Reference Range Interpretation Comments HEMOGLOBIN A1c (test code = 61260) 6.2 % HEMOGLOBIN [id number] 00:00:00 Test Item Value Reference Range Interpretation Comments HEMOGLOBIN A1c (test code = 15832) 6.2 % HEMOGLOBIN [id number] 00:00:00 Test Item Value Reference Range Interpretation Comments HEMOGLOBIN A1c (test code = 47982) 6.2 % COMPREHENSIVE METABOLIC [id number] 00:00:00 Test Item Value Reference Range Interpretation Comments GLUCOSE (test code = 2217) 101 MG/DL BUN (test code = 2208) 12 MG/DL CREATININE (test code = 2214) 0.45 MG/DL eGFR AMER. (test code 143 ML/MIN/1.73 = 69215) eGFR NON- AMER. (test 124 ML/MIN/1.73 code = 22385) CALC BUN/CREAT (test code = 27 RATIO 2235) SODIUM (test code = 2231) 143 MEQ/L POTASSIUM (test code = 2228) 4.4 MEQ/L CHLORIDE (test code = 2215) 105 MEQ/L CARBON DIOXIDE (test code = 27 MEQ/L 2206) CALCIUM (test code = 2209) 9.4 MG/DL PROTEIN, TOTAL (test code = 7.7 G/DL 222) ALBUMIN (test code = 2201) 4.1 G/DL CALC GLOBULIN (test code = 3.6 G/DL 2240) CALC A/G RATIO (test code = 1.1 RATIO 2234) BILIRUBIN, TOTAL (test code = 0.3 MG/DL 2206) ALKALINE PHOSPHATASE (test 102 U/L code = 2204) AST (test code = 2218) 15 U/L ALT (test code = 2219) 17 U/L COMPREHENSIVE METABOLIC [id number] 00:00:00 Test Item Value Reference Range Interpretation Comments GLUCOSE (test code = 2217) 101 MG/DL BUN (test code = 2208) 12 MG/DL CREATININE (test code = 2214) 0.45 MG/DL eGFR AMER. (test code 143 ML/MIN/1.73 = 35828) eGFR NON- AMER. (test 124 ML/MIN/1.73 code = 96876) CALC BUN/CREAT (test code = 27 RATIO [...] (test code = 2219) 17 U/L TROPONIN [id number] 00:00:00 Test Item Value Reference Range Interpretation Comments TROPONIN T (test code = 4017) <0.010 UG/L COMPREHENSIVE METABOLIC [id number] 00:00:00 Test Item Value Reference Range Interpretation Comments GLUCOSE (test code = 2217) 125 MG/DL BUN (test code = 2208) 16 MG/DL CREATININE (test code = 2214) 0.54 MG/DL eGFR AMER. (test code 137 ML/MIN/1.73 = 51746) eGFR NON- AMER. (test 118 ML/MIN/1.73 code = 87295) CALC BUN/CREAT (test code = 30 RATIO 2235) SODIUM (test code = 2231) 140 MEQ/L POTASSIUM (test code = 2228) 4.7 MEQ/L CHLORIDE (test code = 2215) 105 MEQ/L CARBON DIOXIDE (test code = 25 MEQ/L 220) CALCIUM (test code = 2209) 9.2 MG/DL [...] code = 2219) 15 U/L COMPREHENSIVE METABOLIC [id number] 00:00:00 Test Item Value Reference Range Interpretation Comments GLUCOSE (test code = 2217) 125 MG/DL BUN (test code = 2208) 16 MG/DL CREATININE (test code = 2214) 0.54 MG/DL eGFR AMER. (test code 137 ML/MIN/1.73 = 90793) eGFR NON- AMER. (test 118 ML/MIN/1.73 code = 76508) CALC BUN/CREAT (test code = 30 RATIO 2235) SODIUM (test code = 2231) 140 MEQ/L POTASSIUM (test code = 2228) 4.7 MEQ/L CHLORIDE (test code = 2215) 105 MEQ/L CARBON DIOXIDE (test code = 25 MEQ/L 220) CALCIUM (test code = 2209) 9.2 MG/DL [...] (test code = 2219) 15 U/L HEMOGLOBIN [id number] 00:00:00 Test Item Value Reference Range Interpretation Comments HEMOGLOBIN A1c (test code = 66445) 5.9 % HEMOGLOBIN [id number] 00:00:00 Test Item Value Reference Range Interpretation Comments HEMOGLOBIN A1c (test code = 25489) 5.9 % HEMOGLOBIN [id number] 00:00:00 Test Item Value Reference Range Interpretation Comments HEMOGLOBIN A1c (test code = 57679) 5.9 % LIPID [id number] 00:00:00 Test Item Value Reference Range Interpretation Comments CHOLESTEROL (test code = 2210) 166 MG/DL TRIGLYCERIDES (test code = 2232) 145 MG/DL HDL CHOLESTEROL (test code = 2220) 48 MG/DL CALC LDL CHOL (test code = 2237) 89 MG/DL RISK RATIO LDL/HDL (test code = 1.85 RATIO 2238) COMPREHENSIVE METABOLIC [id number] 00:00:00 Test Item Value Reference Range Interpretation Comments GLUCOSE (test code = 2217) 125 MG/DL BUN (test code = 2208) 16 MG/DL CREATININE (test code = 2214) 0.54 MG/DL eGFR AMER. (test code 137 ML/MIN/1.73 = 01563) eGFR NON- AMER. (test 118 ML/MIN/1.73 code = 39031) CALC BUN/CREAT (test code = 30 RATIO [...] A/G RATIO (test code = 1.2 RATIO 223) BILIRUBIN, TOTAL (test code = 0.2 MG/DL 2206) ALKALINE PHOSPHATASE (test 114 U/L code = 2204) AST (test code = 2218) 17 U/L ALT (test code = 2219) 15 U/L HEMOGLOBIN [id number] 00:00:00 Test Item Value Reference Range Interpretation Comments HEMOGLOBIN A1c (test code = 08736) 5.9 % HEMOGLOBIN [id number] 00:00:00 Test Item Value Reference Range Interpretation Comments HEMOGLOBIN A1c (test code = 28065) 5.9 % LIPID [id number] 00:00:00 Test Item Value Reference Range Interpretation Comments CHOLESTEROL (test code = 2210) 166 MG/DL TRIGLYCERIDES (test code = 2232) 145 MG/DL HDL CHOLESTEROL (test code = 2220) 48 MG/DL CALC LDL CHOL (test code = 2237) 89 MG/DL RISK RATIO LDL/HDL (test code = 1.85 RATIO 2238) LIPID [id number] 00:00:00 Test Item Value Reference Range Interpretation Comments CHOLESTEROL (test code = 2210) 166 MG/DL TRIGLYCERIDES (test code = 2232) 145 MG/DL HDL CHOLESTEROL (test code = 2220) 48 MG/DL CALC LDL CHOL (test code = 2237) 89 MG/DL RISK RATIO LDL/HDL (test code = 1.85 RATIO 2238) COMPREHENSIVE METABOLIC [id number] 00:00:00 Test Item Value Reference Range Interpretation Comments GLUCOSE (test code = 2217) 125 MG/DL BUN (test code = 2208) 16 MG/DL CREATININE (test code = 2214) 0.54 MG/DL eGFR AMER. (test code 137 ML/MIN/1.73 = 51123) eGFR NON- AMER. (test 118 ML/MIN/1.73 code = 57539) CALC BUN/CREAT (test code = 30 RATIO [...] A/G RATIO (test code = 1.2 RATIO 223) BILIRUBIN, TOTAL (test code = 0.2 MG/DL 2207) ALKALINE PHOSPHATASE (test 114 U/L code = 2204) AST (test code = 2218) 17 U/L ALT (test code = 2219) 15 U/L COMPREHENSIVE METABOLIC [id number] 00:00:00 Test Item Value Reference Range Interpretation Comments GLUCOSE (test code = 2217) 125 MG/DL BUN (test code = 2208) 16 MG/DL CREATININE (test code = 2214) 0.54 MG/DL eGFR AMER. (test code 137 ML/MIN/1.73 = 05831) eGFR NON- AMER. (test 118 ML/MIN/1.73 code = 29901) CALC BUN/CREAT (test code = 30 RATIO [...] (test code = 2219) 15 U/L HEMOGLOBIN [id number] 00:00:00 Test Item Value Reference Range Interpretation Comments HEMOGLOBIN A1c (test code = 31972) 5.9 % HEMOGLOBIN [id number] 00:00:00 Test Item Value Reference Range Interpretation Comments HEMOGLOBIN A1c (test code = 66430) 5.9 % HEMOGLOBIN [id number] 00:00:00 Test Item Value Reference Range Interpretation Comments HEMOGLOBIN A1c (test code = 65825) 5.9 % LIPID [id number] 00:00:00 Test Item Value Reference Range Interpretation Comments CHOLESTEROL (test code = 2210) 166 MG/DL TRIGLYCERIDES (test code = 2232) 145 MG/DL HDL CHOLESTEROL (test code = 2220) 48 MG/DL CALC LDL CHOL (test code = 2237) 89 MG/DL RISK RATIO LDL/HDL (test code = 1.85 RATIO 2238) LIPID [id number] 00:00:00 Test Item Value Reference Range Interpretation Comments CHOLESTEROL (test code = 2210) 166 MG/DL TRIGLYCERIDES (test code = 2232) 145 MG/DL HDL CHOLESTEROL (test code = 2220) 48 MG/DL CALC LDL CHOL (test code = 2237) 89 MG/DL RISK RATIO LDL/HDL (test code = 1.85 RATIO 2238) COMPREHENSIVE METABOLIC [id number] 00:00:00 Test Item Value Reference Range Interpretation Comments GLUCOSE (test code = 2217) 125 MG/DL BUN (test code = 2208) 16 MG/DL CREATININE (test code = 2214) 0.54 MG/DL eGFR AMER. (test code 137 ML/MIN/1.73 = 77425) eGFR NON- AMER. (test 118 ML/MIN/1.73 code = 07022) CALC BUN/CREAT (test code = 30 RATIO [...] code = 2219) 15 U/L COMPREHENSIVE METABOLIC [id number] 00:00:00 Test Item Value Reference Range Interpretation Comments GLUCOSE (test code = 2217) 125 MG/DL BUN (test code = 2208) 16 MG/DL CREATININE (test code = 2214) 0.54 MG/DL eGFR AMER. (test code 137 ML/MIN/1.73 = 05392) eGFR NON- AMER. (test 118 ML/MIN/1.73 code = 41164) CALC BUN/CREAT (test code = 30 RATIO [...] A/G RATIO (test code = 1.2 RATIO 2233) BILIRUBIN, TOTAL (test code = 0.2 MG/DL 2206) ALKALINE PHOSPHATASE (test 114 U/L code = 220) AST (test code = 2218) 17 U/L ALT (test code = 2219) 15 U/L HEMOGLOBIN [id number] 00:00:00 Test Item Value Reference Range Interpretation Comments HEMOGLOBIN A1c (test code = 62677) 5.9 % HEMOGLOBIN [id number] 00:00:00 Test Item Value Reference Range Interpretation Comments HEMOGLOBIN A1c (test code = 86033) 5.9 % HEMOGLOBIN [id number] 00:00:00 Test Item Value Reference Range Interpretation Comments HEMOGLOBIN A1c (test code = 25650) 5.9 % LIPID [id number] 00:00:00 Test Item Value Reference Range Interpretation Comments CHOLESTEROL (test code = 2210) 166 MG/DL TRIGLYCERIDES (test code = 2232) 145 MG/DL HDL CHOLESTEROL (test code = 2220) 48 MG/DL CALC LDL CHOL (test code = 2237) 89 MG/DL RISK RATIO LDL/HDL (test code = 1.85 RATIO 2238) LIPID [id number] 00:00:00 Test Item Value Reference Range Interpretation Comments CHOLESTEROL (test code = 2210) 166 MG/DL TRIGLYCERIDES (test code = 2232) 145 MG/DL HDL CHOLESTEROL (test code = 2220) 48 MG/DL CALC LDL CHOL (test code = 2237) 89 MG/DL RISK RATIO LDL/HDL (test code = 1.85 RATIO 2238) COMPREHENSIVE METABOLIC [id number] 00:00:00 Test Item Value Reference Range Interpretation Comments GLUCOSE (test code = 2217) 125 MG/DL BUN (test code = 2208) 16 MG/DL CREATININE (test code = 2214) 0.54 MG/DL eGFR AMER. (test code 137 ML/MIN/1.73 = 26603) eGFR NON- AMER. (test 118 ML/MIN/1.73 code = 92353) CALC BUN/CREAT (test code = 30 RATIO [...] code = 2219) 15 U/L COMPREHENSIVE METABOLIC [id number] 00:00:00 Test Item Value Reference Range Interpretation Comments GLUCOSE (test code = 2217) 125 MG/DL BUN (test code = 2208) 16 MG/DL CREATININE (test code = 2214) 0.54 MG/DL eGFR AMER. (test code 137 ML/MIN/1.73 = 27504) eGFR NON- AMER. (test 118 ML/MIN/1.73 code = 02042) CALC BUN/CREAT (test code = 30 RATIO [...] BILIRUBIN, TOTAL (test code = 0.2 MG/DL 7) ALKALINE PHOSPHATASE (test 114 U/L code = 2204) AST (test code = 2218) 17 U/L ALT (test code = 2219) 15 U/L HEMOGLOBIN [id number] 00:00:00 Test Item Value Reference Range Interpretation Comments HEMOGLOBIN A1c (test code = 22414) 5.9 % HEMOGLOBIN [id number] 00:00:00 Test Item Value Reference Range Interpretation Comments HEMOGLOBIN A1c (test code = 63811) 5.9 % HEMOGLOBIN [id number] 00:00:00 Test Item Value Reference Range Interpretation Comments HEMOGLOBIN A1c (test code = 73682) 5.9 % LIPID [id number] 00:00:00 Test Item Value Reference Range Interpretation Comments CHOLESTEROL (test code = 2210) 166 MG/DL TRIGLYCERIDES (test code = 2232) 145 MG/DL HDL CHOLESTEROL (test code = 2220) 48 MG/DL CALC LDL CHOL (test code = 2237) 89 MG/DL RISK RATIO LDL/HDL (test code = 1.85 RATIO 2238) LIPID [id number] 00:00:00 Test Item Value Reference Range Interpretation Comments CHOLESTEROL (test code = 2210) 166 MG/DL TRIGLYCERIDES (test code = 2232) 145 MG/DL HDL CHOLESTEROL (test code = 2220) 48 MG/DL CALC LDL CHOL (test code = 2237) 89 MG/DL RISK RATIO LDL/HDL (test code = 1.85 RATIO 2238) CCP [id number] 00:00:00 Test Item Value Reference Range Interpretation Comments CCP IgG (test code = 82837) 184 UNITS CCP [id number] 00:00:00 Test Item Value Reference Range Interpretation Comments CCP IgG (test code = 07816) 184 UNITS CCP [id number] 00:00:00 Test Item Value Reference Range Interpretation Comments CCP IgG (test code = 99753) 184 UNITS CCP [id number] 00:00:00 Test Item Value Reference Range Interpretation Comments CCP IgG (test code = 41429) 184 UNITS CCP [id number] 00:00:00 Test Item Value Reference Range Interpretation Comments CCP IgG (test code = 99326) 184 UNITS CCP [id number] 00:00:00 Test Item Value Reference Range Interpretation Comments CCP IgG (test code = 34098) 184 UNITS CCP [id number] 00:00:00 Test Item Value Reference Range Interpretation Comments CCP IgG (test code = 41396) 184 UNITS CCP [id number] 00:00:00 Test Item Value Reference Range Interpretation Comments CCP IgG (test code = 54447) 184 UNITS CCP [id number] 00:00:00 Test Item Value Reference Range Interpretation Comments CCP IgG (test code = 47232) 184 UNITS CCP [id number] 00:00:00 Test Item Value Reference Range Interpretation Comments CCP IgG (test code = 06779) 184 UNITS CCP [id number] 00:00:00 Test Item Value Reference Range Interpretation Comments CCP IgG (test code = 08811) 184 UNITS CCP [id number] 00:00:00 Test Item Value Reference Range Interpretation Comments CCP IgG (test code = 93197) 184 UNITS CCP [id number] 00:00:00 Test Item Value Reference Range Interpretation Comments CCP IgG (test code = 05170) 184 UNITS CCP [id number] 00:00:00 Test Item Value Reference Range Interpretation Comments CCP IgG (test code = 01366) 184 UNITS C-REACTIVE [id number] 00:00:00 Test Item Value Reference Range Interpretation Comments C-REACTIVE PROTEIN (test code = 1.4 MG/DL 3513) C-REACTIVE [id number] 00:00:00 Test Item Value Reference Range Interpretation Comments C-REACTIVE PROTEIN (test code = 1.4 MG/DL 3513) ACUTE HEPATITIS [id number] 00:00:00 Test Item Value Reference Range Interpretation Comments HEPATITIS A IgM (test code = NON-REACTIVE 50637) HEPATITIS B CORE IgM (test code NON-REACTIVE = 4644) HEPATITIS B SURF AG (test code = NON-REACTIVE 6779) HEPATITIS C ANTIBODY (test code NON-REACTIVE = 4646) INTERPRETATION HEPATITIS A: (NOTE) (test code = 2552) INTERPRETATION HEPATITIS B: (NOTE) (test code = 45489) INTERPRETATION HEPATITIS C: (NOTE) (test code = 03377) C-REACTIVE [id number] 00:00:00 Test Item Value Reference Range Interpretation Comments C-REACTIVE PROTEIN (test code = 1.4 MG/DL 3513) ACUTE HEPATITIS [id number] 00:00:00 Test Item Value Reference Range Interpretation Comments HEPATITIS A IgM (test code = NON-REACTIVE 81463) HEPATITIS B CORE IgM (test code NON-REACTIVE = 4644) HEPATITIS B SURF AG (test code = NON-REACTIVE 2739) HEPATITIS C ANTIBODY (test code NON-REACTIVE = 4675) INTERPRETATION HEPATITIS A: (NOTE) (test code = 2552) INTERPRETATION HEPATITIS B: (NOTE) (test code = 22618) INTERPRETATION HEPATITIS C: (NOTE) (test code = 75420) ACUTE HEPATITIS [id number] 00:00:00 Test Item Value Reference Range Interpretation Comments HEPATITIS A IgM (test code = NON-REACTIVE 69930) HEPATITIS B CORE IgM (test code NON-REACTIVE = 4644) HEPATITIS B SURF AG (test code = NON-REACTIVE 2739) HEPATITIS C ANTIBODY (test code NON-REACTIVE = 4675) INTERPRETATION HEPATITIS A: (NOTE) (test code = 2552) INTERPRETATION HEPATITIS B: (NOTE) (test code = 83837) INTERPRETATION HEPATITIS C: (NOTE) (test code = 69978) C-REACTIVE [id number] 00:00:00 Test Item Value Reference Range Interpretation Comments C-REACTIVE PROTEIN (test code = 1.4 MG/DL 3513) C-REACTIVE [id number] 00:00:00 Test Item Value Reference Range Interpretation Comments C-REACTIVE PROTEIN (test code = 1.4 MG/DL 3513) ACUTE HEPATITIS [id number] 00:00:00 Test Item Value Reference Range Interpretation Comments HEPATITIS A IgM (test code = NON-REACTIVE 51675) HEPATITIS B CORE IgM (test code NON-REACTIVE = 4644) HEPATITIS B SURF AG (test code = NON-REACTIVE 2739) HEPATITIS C ANTIBODY (test code NON-REACTIVE = 4675) INTERPRETATION HEPATITIS A: (NOTE) (test code = 2552) INTERPRETATION HEPATITIS B: (NOTE) (test code = 41912) INTERPRETATION HEPATITIS C: (NOTE) (test code = 39887) ACUTE HEPATITIS [id number] 00:00:00 Test Item Value Reference Range Interpretation Comments HEPATITIS A IgM (test code = NON-REACTIVE 90395) HEPATITIS B CORE IgM (test code NON-REACTIVE = 4644) HEPATITIS B SURF AG (test code = NON-REACTIVE 2739) HEPATITIS C ANTIBODY (test code NON-REACTIVE = 4675) INTERPRETATION HEPATITIS A: (NOTE) (test code = 2552) INTERPRETATION HEPATITIS B: (NOTE) (test code = 45544) INTERPRETATION HEPATITIS C: (NOTE) (test code = 59108) C-REACTIVE [id number] 00:00:00 Test Item Value Reference Range Interpretation Comments C-REACTIVE PROTEIN (test code = 1.4 MG/DL 3513) C-REACTIVE [id number] 00:00:00 Test Item Value Reference Range Interpretation Comments C-REACTIVE PROTEIN (test code = 1.4 MG/DL 3513) ACUTE HEPATITIS [id number] 00:00:00 Test Item Value Reference Range Interpretation Comments HEPATITIS A IgM (test code = NON-REACTIVE 30820) HEPATITIS B CORE IgM (test code NON-REACTIVE = 4644) HEPATITIS B SURF AG (test code = NON-REACTIVE 2739) HEPATITIS C ANTIBODY (test code NON-REACTIVE = 4675) INTERPRETATION HEPATITIS A: (NOTE) (test code = 2552) INTERPRETATION HEPATITIS B: (NOTE) (test code = 39514) INTERPRETATION HEPATITIS C: (NOTE) (test code = 58021) ACUTE HEPATITIS [id number] 00:00:00 Test Item Value Reference Range Interpretation Comments HEPATITIS A IgM (test code = NON-REACTIVE 32764) HEPATITIS B CORE IgM (test code NON-REACTIVE = 4644) HEPATITIS B SURF AG (test code = NON-REACTIVE 2739) HEPATITIS C ANTIBODY (test code NON-REACTIVE = 4675) INTERPRETATION HEPATITIS A: (NOTE) (test code = 2552) INTERPRETATION HEPATITIS B: (NOTE) (test code = 35934) INTERPRETATION HEPATITIS C: (NOTE) (test code = 03516) C-REACTIVE [id number] 00:00:00 Test Item Value Reference Range Interpretation Comments C-REACTIVE PROTEIN (test code = 1.4 MG/DL 3513) C-REACTIVE [id number] 00:00:00 Test Item Value Reference Range Interpretation Comments C-REACTIVE PROTEIN (test code = 1.4 MG/DL 3513) ACUTE HEPATITIS [id number] 00:00:00 Test Item Value Reference Range Interpretation Comments HEPATITIS A IgM (test code = NON-REACTIVE 63419) HEPATITIS B CORE IgM (test code NON-REACTIVE = 4644) HEPATITIS B SURF AG (test code = NON-REACTIVE 2739) HEPATITIS C ANTIBODY (test code NON-REACTIVE = 4675) INTERPRETATION HEPATITIS A: (NOTE) (test code = 2552) INTERPRETATION HEPATITIS B: (NOTE) (test code = 33563) INTERPRETATION HEPATITIS C: (NOTE) (test code = 09165) ACUTE HEPATITIS [id number] 00:00:00 Test Item Value Reference Range Interpretation Comments HEPATITIS A IgM (test code = NON-REACTIVE 74520) HEPATITIS B CORE IgM (test code NON-REACTIVE = 4644) HEPATITIS B SURF AG (test code = NON-REACTIVE 2739) HEPATITIS C ANTIBODY (test code NON-REACTIVE = 4675) INTERPRETATION HEPATITIS A: (NOTE) (test code = 2552) INTERPRETATION HEPATITIS B: (NOTE) (test code = 81677) INTERPRETATION HEPATITIS C: (NOTE) (test code = 67007) ARTHRITIS [id number] 00:00:00 Test Item Value Reference Range Interpretation Comments RHEUMATOID FACTOR, QUANT 54 IU/ML (test code = 3502) URIC ACID (test code = 5.1 MG/DL 2233) SEDIMENTATION RATE (test TEST NOT PERFORMED code = 1017) MM/HOUR ANTI-NUCLEAR ANTIBODIES NEGATIVE (test code = 3506) VITAMIN D, 25 [id number] 00:00:00 Test Item Value Reference Range Interpretation Comments VITAMIN D, 25 OH (test code = 4958) 15 NG/ML VITAMIN D, 25 [id number] 00:00:00 Test Item Value Reference Range Interpretation Comments VITAMIN D, 25 OH (test code = 4958) 15 NG/ML ARTHRITIS [id number] 00:00:00 Test Item Value Reference Range Interpretation Comments RHEUMATOID FACTOR, QUANT 54 IU/ML (test code = 3502) URIC ACID (test code = 5.1 MG/DL 2233) SEDIMENTATION RATE (test TEST NOT PERFORMED code = 1017) MM/HOUR ANTI-NUCLEAR ANTIBODIES NEGATIVE (test code = 3506) ARTHRITIS [id number] 00:00:00 Test Item Value Reference Range Interpretation Comments RHEUMATOID FACTOR, QUANT 54 IU/ML (test code = 3502) URIC ACID (test code = 5.1 MG/DL 2233) SEDIMENTATION RATE (test TEST NOT PERFORMED code = 1017) MM/HOUR ANTI-NUCLEAR ANTIBODIES NEGATIVE (test code = 3506) VITAMIN D, 25 [id number] 00:00:00 Test Item Value Reference Range Interpretation Comments VITAMIN D, 25 OH (test code = 4958) 15 NG/ML ARTHRITIS [id number] 00:00:00 Test Item Value Reference Range Interpretation Comments RHEUMATOID FACTOR, QUANT 54 IU/ML (test code = 3502) URIC ACID (test code = 5.1 MG/DL 2233) SEDIMENTATION RATE (test TEST NOT PERFORMED code = 1017) MM/HOUR ANTI-NUCLEAR ANTIBODIES NEGATIVE (test code = 3506) ARTHRITIS [id number] 00:00:00 Test Item Value Reference Range Interpretation Comments RHEUMATOID FACTOR, QUANT 54 IU/ML (test code = 3502) URIC ACID (test code = 5.1 MG/DL 2233) SEDIMENTATION RATE (test TEST NOT PERFORMED code = 1017) MM/HOUR ANTI-NUCLEAR ANTIBODIES NEGATIVE (test code = 3506) ARTHRITIS [id number] 00:00:00 Test Item Value Reference Range Interpretation Comments RHEUMATOID FACTOR, QUANT 54 IU/ML (test code = 3502) URIC ACID (test code = 5.1 MG/DL 2233) SEDIMENTATION RATE (test TEST NOT PERFORMED code = 1017) MM/HOUR ANTI-NUCLEAR ANTIBODIES NEGATIVE (test code = 3506) VITAMIN D, 25 [id number] 00:00:00 Test Item Value Reference Range Interpretation Comments VITAMIN D, 25 OH (test code = 4958) 15 NG/ML VITAMIN D, 25 [id number] 00:00:00 Test Item Value Reference Range Interpretation Comments VITAMIN D, 25 OH (test code = 4958) 15 NG/ML ARTHRITIS [id number] 00:00:00 Test Item Value Reference Range Interpretation Comments RHEUMATOID FACTOR, QUANT 54 IU/ML (test code = 3502) URIC ACID (test code = 5.1 MG/DL 2233) SEDIMENTATION RATE (test TEST NOT PERFORMED code = 1017) MM/HOUR ANTI-NUCLEAR ANTIBODIES NEGATIVE (test code = 3506) ARTHRITIS [id number] 00:00:00 Test Item Value Reference Range Interpretation Comments RHEUMATOID FACTOR, QUANT 54 IU/ML (test code = 3502) URIC ACID (test code = 5.1 MG/DL 2233) SEDIMENTATION RATE (test TEST NOT PERFORMED code = 1017) MM/HOUR ANTI-NUCLEAR ANTIBODIES NEGATIVE (test code = 3506) ARTHRITIS [id number] 00:00:00 Test Item Value Reference Range Interpretation Comments RHEUMATOID FACTOR, QUANT 54 IU/ML (test code = 3502) URIC ACID (test code = 5.1 MG/DL 2233) SEDIMENTATION RATE (test TEST NOT PERFORMED code = 1017) MM/HOUR ANTI-NUCLEAR ANTIBODIES NEGATIVE (test code = 3506) VITAMIN D, 25 [id number] 00:00:00 Test Item Value Reference Range Interpretation Comments VITAMIN D, 25 OH (test code = 4958) 15 NG/ML VITAMIN D, 25 [id number] 00:00:00 Test Item Value Reference Range Interpretation Comments VITAMIN D, 25 OH (test code = 4958) 15 NG/ML ARTHRITIS [id number] 00:00:00 Test Item Value Reference Range Interpretation Comments RHEUMATOID FACTOR, QUANT 54 IU/ML (test code = 3502) URIC ACID (test code = 5.1 MG/DL 2233) SEDIMENTATION RATE (test TEST NOT PERFORMED code = 1017) MM/HOUR ANTI-NUCLEAR ANTIBODIES NEGATIVE (test code = 3506) ARTHRITIS [id number] 00:00:00 Test Item Value Reference Range Interpretation Comments RHEUMATOID FACTOR, QUANT 54 IU/ML (test code = 3502) URIC ACID (test code = 5.1 MG/DL 2233) SEDIMENTATION RATE (test TEST NOT PERFORMED code = 1017) MM/HOUR ANTI-NUCLEAR ANTIBODIES NEGATIVE (test code = 3506) ARTHRITIS [id number] 00:00:00 Test Item Value Reference Range Interpretation Comments RHEUMATOID FACTOR, QUANT 54 IU/ML (test code = 3502) URIC ACID (test code = 5.1 MG/DL 2233) SEDIMENTATION RATE (test TEST NOT PERFORMED code = 1017) MM/HOUR ANTI-NUCLEAR ANTIBODIES NEGATIVE (test code = 3506) VITAMIN D, 25 [id number] 00:00:00 Test Item Value Reference Range Interpretation Comments VITAMIN D, 25 OH (test code = 4958) 15 NG/ML VITAMIN D, 25 [id number] 00:00:00 Test Item Value Reference Range Interpretation Comments VITAMIN D, 25 OH (test code = 4958) 15 NG/ML ARTHRITIS [id number] 00:00:00 Test Item Value Reference Range Interpretation Comments RHEUMATOID FACTOR, QUANT 54 IU/ML (test code = 3502) URIC ACID (test code = 5.1 MG/DL 2233) SEDIMENTATION RATE (test TEST NOT PERFORMED code = 1017) MM/HOUR ANTI-NUCLEAR ANTIBODIES NEGATIVE (test code = 3506) ARTHRITIS [id number] 00:00:00 Test Item Value Reference Range Interpretation Comments RHEUMATOID FACTOR, QUANT 54 IU/ML (test code = 3502) URIC ACID (test code = 5.1 MG/DL 2232) SEDIMENTATION RATE (test TEST NOT PERFORMED code = 1017) MM/HOUR ANTI-NUCLEAR ANTIBODIES NEGATIVE (test code = 3506) COMPREHENSIVE METABOLIC [id number] 00:00:00 Test Item Value Reference Range Interpretation Comments GLUCOSE (test code = 2217) 86 MG/DL BUN (test code = 2208) 13 MG/DL CREATININE (test code = 2214) 0.44 MG/DL eGFR AMER. (test code 148 ML/MIN/1.73 = 79745) eGFR NON- AMER. (test 128 ML/MIN/1.73 code = 35409) CALC BUN/CREAT (test code = 30 RATIO [...] code = 2219) 12 U/L HIGH SENSITIVITY [id number] 00:00:00 Test Item Value Reference Range Interpretation Comments HIGH SENSITIVITY CRP (test code = 10.9 MG/L 25884) HIGH SENSITIVITY [id number] 00:00:00 Test Item Value Reference Range Interpretation Comments HIGH SENSITIVITY CRP (test code = 10.9 MG/L 78365) COMPREHENSIVE METABOLIC [id number] 00:00:00 Test Item Value Reference Range Interpretation Comments GLUCOSE (test code = 2217) 86 MG/DL BUN (test code = 2208) 13 MG/DL CREATININE (test code = 2214) 0.44 MG/DL eGFR AMER. (test code 148 ML/MIN/1.73 = 65596) eGFR NON- AMER. (test 128 ML/MIN/1.73 code = 28742) CALC BUN/CREAT (test code = 30 RATIO 2235) SODIUM (test code = 2231) 137 MEQ/L POTASSIUM (test code = 2228) 4.4 MEQ/L CHLORIDE (test code = 2215) 101 MEQ/L CARBON DIOXIDE (test code = 23 MEQ/L 2205) CALCIUM (test code = 2209) 9.4 MG/DL PROTEIN, TOTAL (test code = 8.0 G/DL 2228) ALBUMIN (test code = 220) 4.6 G/DL CALC GLOBULIN (test code = 3.4 G/DL 2239) CALC A/G RATIO (test code = 1.4 RATIO 2233) BILIRUBIN, TOTAL (test code = 0.2 MG/DL 2206) ALKALINE PHOSPHATASE (test 109 U/L code = 220) AST (test code = 2218) 15 U/L ALT (test code = 2219) 12 U/L SEDIMENTATION [id number] 00:00:00 Test Item Value Reference Range Interpretation Comments SEDIMENTATION RATE (test code = 22 MM/HOUR 1017) SEDIMENTATION [id number] 00:00:00 Test Item Value Reference Range Interpretation Comments SEDIMENTATION RATE (test code = 22 MM/HOUR 1017) HIGH SENSITIVITY [id number] 00:00:00 Test Item Value Reference Range Interpretation Comments HIGH SENSITIVITY CRP (test code = 10.9 MG/L 77989) SEDIMENTATION [id number] 00:00:00 Test Item Value Reference Range Interpretation Comments SEDIMENTATION RATE (test code = 22 MM/HOUR 1017) COMPREHENSIVE METABOLIC [id number] 00:00:00 Test Item Value Reference Range Interpretation Comments GLUCOSE (test code = 2217) 86 MG/DL BUN (test code = 2208) 13 MG/DL CREATININE (test code = 2214) 0.44 MG/DL eGFR AMER. (test code 148 ML/MIN/1.73 = 84027) eGFR NON- AMER. (test 128 ML/MIN/1.73 code = 96727) CALC BUN/CREAT (test code = 30 RATIO 2235) SODIUM (test code = 2231) 137 MEQ/L POTASSIUM (test code = 2228) 4.4 MEQ/L CHLORIDE (test code = 2215) 101 MEQ/L CARBON DIOXIDE (test code = 23 MEQ/L 220) CALCIUM (test code = 2209) 9.4 MG/DL PROTEIN, TOTAL (test code = 8.0 G/DL 222) ALBUMIN (test code = 2201) 4.6 G/DL CALC GLOBULIN (test code = 3.4 G/DL 2240) CALC A/G RATIO (test code = 1.4 RATIO 2234) BILIRUBIN, TOTAL (test code = 0.2 MG/DL 2206) ALKALINE PHOSPHATASE (test 109 U/L code = 2204) AST (test code = 2218) 15 U/L ALT (test code = 2219) 12 U/L COMPREHENSIVE METABOLIC [id number] 00:00:00 Test Item Value Reference Range Interpretation Comments GLUCOSE (test code = 2217) 86 MG/DL BUN (test code = 2208) 13 MG/DL CREATININE (test code = 2214) 0.44 MG/DL eGFR AMER. (test code 148 ML/MIN/1.73 = 04499) eGFR NON- AMER. (test 128 ML/MIN/1.73 code = 47240) CALC BUN/CREAT (test code = 30 RATIO [...] code = 2219) 12 U/L HIGH SENSITIVITY [id number] 00:00:00 Test Item Value Reference Range Interpretation Comments HIGH SENSITIVITY CRP (test code = 10.9 MG/L 74040) HIGH SENSITIVITY [id number] 00:00:00 Test Item Value Reference Range Interpretation Comments HIGH SENSITIVITY CRP (test code = 10.9 MG/L 59162) SEDIMENTATION [id number] 00:00:00 Test Item Value Reference Range Interpretation Comments SEDIMENTATION RATE (test code = 22 MM/HOUR 1017) SEDIMENTATION [id number] 00:00:00 Test Item Value Reference Range Interpretation Comments SEDIMENTATION RATE (test code = 22 MM/HOUR 1017) COMPREHENSIVE METABOLIC [id number] 00:00:00 Test Item Value Reference Range Interpretation Comments GLUCOSE (test code = 2217) 86 MG/DL BUN (test code = 2208) 13 MG/DL CREATININE (test code = 2214) 0.44 MG/DL eGFR AMER. (test code 148 ML/MIN/1.73 = 80103) eGFR NON- AMER. (test 128 ML/MIN/1.73 code = 84605) CALC BUN/CREAT (test code = 30 RATIO [...] A/G RATIO (test code = 1.4 RATIO 4) BILIRUBIN, TOTAL (test code = 0.2 MG/DL 2206) ALKALINE PHOSPHATASE (test 109 U/L code = 2204) AST (test code = 2218) 15 U/L ALT (test code = 2219) 12 U/L COMPREHENSIVE METABOLIC [id number] 00:00:00 Test Item Value Reference Range Interpretation Comments GLUCOSE (test code = 2217) 86 MG/DL BUN (test code = 2208) 13 MG/DL CREATININE (test code = 2214) 0.44 MG/DL eGFR AMER. (test code 148 ML/MIN/1.73 = 91442) eGFR NON- AMER. (test 128 ML/MIN/1.73 code = 76520) CALC BUN/CREAT (test code = 30 RATIO [...] CALC GLOBULIN (test code = 3.4 G/DL 2239) CALC A/G RATIO (test code = 1.4 RATIO 2233) BILIRUBIN, TOTAL (test code = 0.2 MG/DL 2206) ALKALINE PHOSPHATASE (test 109 U/L code = 220) AST (test code = 2218) 15 U/L ALT (test code = 2219) 12 U/L HIGH SENSITIVITY [id number] 00:00:00 Test Item Value Reference Range Interpretation Comments HIGH SENSITIVITY CRP (test code = 10.9 MG/L 98333) HIGH SENSITIVITY [id number] 00:00:00 Test Item Value Reference Range Interpretation Comments HIGH SENSITIVITY CRP (test code = 10.9 MG/L 65687) SEDIMENTATION [id number] 00:00:00 Test Item Value Reference Range Interpretation Comments SEDIMENTATION RATE (test code = 22 MM/HOUR 1017) SEDIMENTATION [id number] 00:00:00 Test Item Value Reference Range Interpretation Comments SEDIMENTATION RATE (test code = 22 MM/HOUR 1017) COMPREHENSIVE METABOLIC [id number] 00:00:00 Test Item Value Reference Range Interpretation Comments GLUCOSE (test code = 2217) 86 MG/DL BUN (test code = 2208) 13 MG/DL CREATININE (test code = 2214) 0.44 MG/DL eGFR AMER. (test code 148 ML/MIN/1.73 = 38673) eGFR NON- AMER. (test 128 ML/MIN/1.73 code = 96654) CALC BUN/CREAT (test code = 30 RATIO [...] code = 2219) 12 U/L COMPREHENSIVE METABOLIC [id number] 00:00:00 Test Item Value Reference Range Interpretation Comments GLUCOSE (test code = 2217) 86 MG/DL BUN (test code = 2208) 13 MG/DL CREATININE (test code = 2214) 0.44 MG/DL eGFR AMER. (test code 148 ML/MIN/1.73 = 82237) eGFR NON- AMER. (test 128 ML/MIN/1.73 code = 34897) CALC BUN/CREAT (test code = 30 RATIO [...] code = 2219) 12 U/L HIGH SENSITIVITY [id number] 00:00:00 Test Item Value Reference Range Interpretation Comments HIGH SENSITIVITY CRP (test code = 10.9 MG/L 32379) HIGH SENSITIVITY [id number] 00:00:00 Test Item Value Reference Range Interpretation Comments HIGH SENSITIVITY CRP (test code = 10.9 MG/L 47655) SEDIMENTATION [id number] 00:00:00 Test Item Value Reference Range Interpretation Comments SEDIMENTATION RATE (test code = 22 MM/HOUR 1017) SEDIMENTATION [id number] 00:00:00 Test Item Value Reference Range Interpretation Comments SEDIMENTATION RATE (test code = 22 MM/HOUR 1017) COMPREHENSIVE METABOLIC [id number] 00:00:00 Test Item Value Reference Range Interpretation Comments GLUCOSE (test code = 2217) 86 MG/DL BUN (test code = 2208) 13 MG/DL CREATININE (test code = 2214) 0.44 MG/DL eGFR AMER. (test code 148 ML/MIN/1.73 = 39784) eGFR NON- AMER. (test 128 ML/MIN/1.73 code = 66215) CALC BUN/CREAT (test code = 30 RATIO [...] A/G RATIO (test code = 1.4 RATIO 4) BILIRUBIN, TOTAL (test code = 0.2 MG/DL 2206) ALKALINE PHOSPHATASE (test 109 U/L code = 2204) AST (test code = 2218) 15 U/L ALT (test code = 2219) 12 U/L CBC W/AUTO [id number] 00:00:00 Test Item Value Reference Range Interpretation [...] COMMENTS (test code = 1016) (NOTE) LIPID [id number] 00:00:00 Test Item Value Reference Range Interpretation Comments CHOLESTEROL (test code = 2210) 127 MG/DL TRIGLYCERIDES (test code = 2232) 108 MG/DL HDL CHOLESTEROL (test code = 2220) 33 MG/DL CALC LDL CHOL (test code = 2237) 72 MG/DL RISK RATIO LDL/HDL (test code = 2.19 RATIO 2238) LIPID [id number] 00:00:00 Test Item Value Reference Range Interpretation Comments CHOLESTEROL (test code = 2210) 127 MG/DL TRIGLYCERIDES (test code = 2232) 108 MG/DL HDL CHOLESTEROL (test code = 2220) 33 MG/DL CALC LDL CHOL (test code = 2237) 72 MG/DL RISK RATIO LDL/HDL (test code = 2.19 RATIO 2238) COMPREHENSIVE METABOLIC [id number] 00:00:00 Test Item Value Reference Range Interpretation Comments GLUCOSE (test code = 2217) 99 MG/DL BUN (test code = 2208) 7 MG/DL CREATININE (test code = 2214) 0.47 MG/DL eGFR AMER. (test code 146 ML/MIN/1.73 = 08070) eGFR NON- AMER. (test 126 ML/MIN/1.73 code = 40113) CALC BUN/CREAT (test code = 15 RATIO [...] A/G RATIO (test code = 0.9 RATIO 2234) BILIRUBIN, TOTAL (test code = 0.3 MG/DL 2206) ALKALINE PHOSPHATASE (test 109 U/L code = 2204) AST (test code = 2218) 23 U/L ALT (test code = 2219) 24 U/L COMPREHENSIVE METABOLIC [id number] 00:00:00 Test Item Value Reference Range Interpretation Comments GLUCOSE (test code = 2217) 99 MG/DL BUN (test code = 2208) 7 MG/DL CREATININE (test code = 2214) 0.47 MG/DL eGFR AMER. (test code 146 ML/MIN/1.73 = 16583) eGFR NON- AMER. (test 126 ML/MIN/1.73 code = 53597) CALC BUN/CREAT (test code = 15 RATIO [...] A/G RATIO (test code = 0.9 RATIO 2234) BILIRUBIN, TOTAL (test code = 0.3 MG/DL 2206) ALKALINE PHOSPHATASE (test 109 U/L code = 2204) AST (test code = 2218) 23 U/L ALT (test code = 2219) 24 U/L HEMOGLOBIN [id number] 00:00:00 Test Item Value Reference Range Interpretation Comments HEMOGLOBIN A1c (test code = 32918) 6.1 % HEMOGLOBIN [id number] 00:00:00 Test Item Value Reference Range Interpretation Comments HEMOGLOBIN A1c (test code = 95112) 6.1 % HEMOGLOBIN [id number] 00:00:00 Test Item Value Reference Range Interpretation Comments HEMOGLOBIN A1c (test code = 36066) 6.1 % [id number] 00:00:00 Test Item Value Reference Range Interpretation Comments TSH (test code = 2821) 1.06 UIU/ML [id number] 00:00:00 Test Item Value Reference Range Interpretation Comments TSH (test code = 2821) 1.06 UIU/ML [id number] 00:00:00 Test Item Value Reference Range Interpretation Comments TSH (test code = 2821) 1.06 UIU/ML CBC W/AUTO [id number] 00:00:00 Test Item Value Reference Range Interpretation [...] (test code = 1016) (NOTE) CBC W/AUTO [id number] 00:00:00 Test Item Value Reference Range Interpretation [...] COMMENTS (test code = 1016) (NOTE) LIPID [id number] 00:00:00 Test Item Value Reference Range Interpretation Comments CHOLESTEROL (test code = 2210) 127 MG/DL TRIGLYCERIDES (test code = 2232) 108 MG/DL HDL CHOLESTEROL (test code = 2220) 33 MG/DL CALC LDL CHOL (test code = 2237) 72 MG/DL RISK RATIO LDL/HDL (test code = 2.19 RATIO 2238) COMPREHENSIVE METABOLIC [id number] 00:00:00 Test Item Value Reference Range Interpretation Comments GLUCOSE (test code = 2217) 99 MG/DL BUN (test code = 2208) 7 MG/DL CREATININE (test code = 2214) 0.47 MG/DL eGFR AMER. (test code 146 ML/MIN/1.73 = 96239) eGFR NON- AMER. (test 126 ML/MIN/1.73 code = 13571) CALC BUN/CREAT (test code = 15 RATIO 2234) SODIUM (test code = 2231) 142 MEQ/L [...] (test code = 2219) 24 U/L HEMOGLOBIN [id number] 00:00:00 Test Item Value Reference Range Interpretation Comments HEMOGLOBIN A1c (test code = 60052) 6.1 % HEMOGLOBIN [id number] 00:00:00 Test Item Value Reference Range Interpretation Comments HEMOGLOBIN A1c (test code = 20529) 6.1 % [id number] 00:00:00 Test Item Value Reference Range Interpretation Comments TSH (test code = 2821) 1.06 UIU/ML [id number] 00:00:00 Test Item Value Reference Range Interpretation Comments TSH (test code = 2821) 1.06 UIU/ML CBC W/AUTO [id number] 00:00:00 Test Item Value Reference Range Interpretation [...] (test code = 1016) (NOTE) CBC W/AUTO [id number] 00:00:00 Test Item Value Reference Range Interpretation [...] (test code = 1016) (NOTE) CBC W/AUTO [id number] 00:00:00 Test Item Value Reference Range Interpretation [...] COMMENTS (test code = 1016) (NOTE) LIPID [id number] 00:00:00 Test Item Value Reference Range Interpretation Comments CHOLESTEROL (test code = 2210) 127 MG/DL TRIGLYCERIDES (test code = 2232) 108 MG/DL HDL CHOLESTEROL (test code = 2220) 33 MG/DL CALC LDL CHOL (test code = 2237) 72 MG/DL RISK RATIO LDL/HDL (test code = 2.19 RATIO 2238) LIPID [id number] 00:00:00 Test Item Value Reference Range Interpretation Comments CHOLESTEROL (test code = 2210) 127 MG/DL TRIGLYCERIDES (test code = 2232) 108 MG/DL HDL CHOLESTEROL (test code = 2220) 33 MG/DL CALC LDL CHOL (test code = 2237) 72 MG/DL RISK RATIO LDL/HDL (test code = 2.19 RATIO 2238) COMPREHENSIVE METABOLIC [id number] 00:00:00 Test Item Value Reference Range Interpretation Comments GLUCOSE (test code = 2217) 99 MG/DL BUN (test code = 2208) 7 MG/DL CREATININE (test code = 2214) 0.47 MG/DL eGFR AMER. (test code 146 ML/MIN/1.73 = 70749) eGFR NON- AMER. (test 126 ML/MIN/1.73 code = 23675) CALC BUN/CREAT (test code = 15 RATIO [...] A/G RATIO (test code = 0.9 RATIO 2234) BILIRUBIN, TOTAL (test code = 0.3 MG/DL 220) ALKALINE PHOSPHATASE (test 109 U/L code = 2204) AST (test code = 2218) 23 U/L ALT (test code = 2219) 24 U/L COMPREHENSIVE METABOLIC [id number] 00:00:00 Test Item Value Reference Range Interpretation Comments GLUCOSE (test code = 2217) 99 MG/DL BUN (test code = 2208) 7 MG/DL CREATININE (test code = 2214) 0.47 MG/DL eGFR AMER. (test code 146 ML/MIN/1.73 = 31509) eGFR NON- AMER. (test 126 ML/MIN/1.73 code = 76647) CALC BUN/CREAT (test code = 15 RATIO 2235) SODIUM (test code = 2231) 142 MEQ/L POTASSIUM (test code = 2228) 4.2 MEQ/L CHLORIDE (test code = 2215) 103 MEQ/L CARBON DIOXIDE (test code = 24 MEQ/L 2205) CALCIUM (test code = 2209) 9.4 MG/DL PROTEIN, TOTAL (test code = 8.0 G/DL 2229) ALBUMIN (test code = 2201) 3.8 G/DL CALC GLOBULIN (test code = 4.2 G/DL 2240) CALC A/G RATIO (test code = 0.9 RATIO 2234) BILIRUBIN, TOTAL (test code = 0.3 MG/DL 2207) ALKALINE PHOSPHATASE (test 109 U/L code = 2204) AST (test code = 2218) 23 U/L ALT (test code = 2219) 24 U/L HEMOGLOBIN [id number] 00:00:00 Test Item Value Reference Range Interpretation Comments HEMOGLOBIN A1c (test code = 56241) 6.1 % HEMOGLOBIN [id number] 00:00:00 Test Item Value Reference Range Interpretation Comments HEMOGLOBIN A1c (test code = 10061) 6.1 % HEMOGLOBIN [id number] 00:00:00 Test Item Value Reference Range Interpretation Comments HEMOGLOBIN A1c (test code = 41207) 6.1 % [id number] 00:00:00 Test Item Value Reference Range Interpretation Comments TSH (test code = 2821) 1.06 UIU/ML [id number] 00:00:00 Test Item Value Reference Range Interpretation Comments TSH (test code = 2821) 1.06 UIU/ML [id number] 00:00:00 Test Item Value Reference Range Interpretation Comments TSH (test code = 2821) 1.06 UIU/ML CBC W/AUTO [id number] 00:00:00 Test Item Value Reference Range Interpretation [...] (test code = 1016) (NOTE) CBC W/AUTO [id number] 00:00:00 Test Item Value Reference Range Interpretation [...] (test code = 1016) (NOTE) CBC W/AUTO [id number] 00:00:00 Test Item Value Reference Range Interpretation [...] COMMENTS (test code = 1016) (NOTE) LIPID [id number] 00:00:00 Test Item Value Reference Range Interpretation Comments CHOLESTEROL (test code = 2210) 127 MG/DL TRIGLYCERIDES (test code = 2232) 108 MG/DL HDL CHOLESTEROL (test code = 2220) 33 MG/DL CALC LDL CHOL (test code = 2237) 72 MG/DL RISK RATIO LDL/HDL (test code = 2.19 RATIO 2238) LIPID [id number] 00:00:00 Test Item Value Reference Range Interpretation Comments CHOLESTEROL (test code = 2210) 127 MG/DL TRIGLYCERIDES (test code = 2232) 108 MG/DL HDL CHOLESTEROL (test code = 2220) 33 MG/DL CALC LDL CHOL (test code = 2237) 72 MG/DL RISK RATIO LDL/HDL (test code = 2.19 RATIO 2238) COMPREHENSIVE METABOLIC [id number] 00:00:00 Test Item Value Reference Range Interpretation Comments GLUCOSE (test code = 2217) 99 MG/DL BUN (test code = 2208) 7 MG/DL CREATININE (test code = 2214) 0.47 MG/DL eGFR AMER. (test code 146 ML/MIN/1.73 = 68243) eGFR NON- AMER. (test 126 ML/MIN/1.73 code = 14546) CALC BUN/CREAT (test code = 15 RATIO [...] A/G RATIO (test code = 0.9 RATIO 2234) BILIRUBIN, TOTAL (test code = 0.3 MG/DL 2206) ALKALINE PHOSPHATASE (test 109 U/L code = 2204) AST (test code = 2218) 23 U/L ALT (test code = 2219) 24 U/L COMPREHENSIVE METABOLIC [id number] 00:00:00 Test Item Value Reference Range Interpretation Comments GLUCOSE (test code = 2217) 99 MG/DL BUN (test code = 2208) 7 MG/DL CREATININE (test code = 2214) 0.47 MG/DL eGFR AMER. (test code 146 ML/MIN/1.73 = 02289) eGFR NON- AMER. (test 126 ML/MIN/1.73 code = 42582) CALC BUN/CREAT (test code = 15 RATIO [...] A/G RATIO (test code = 0.9 RATIO 2234) BILIRUBIN, TOTAL (test code = 0.3 MG/DL 2206) ALKALINE PHOSPHATASE (test 109 U/L code = 2204) AST (test code = 2218) 23 U/L ALT (test code = 2219) 24 U/L HEMOGLOBIN [id number] 00:00:00 Test Item Value Reference Range Interpretation Comments HEMOGLOBIN A1c (test code = 75745) 6.1 % HEMOGLOBIN [id number] 00:00:00 Test Item Value Reference Range Interpretation Comments HEMOGLOBIN A1c (test code = 86978) 6.1 % HEMOGLOBIN [id number] 00:00:00 Test Item Value Reference Range Interpretation Comments HEMOGLOBIN A1c (test code = 65474) 6.1 % [id number] 00:00:00 Test Item Value Reference Range Interpretation Comments TSH (test code = 2821) 1.06 UIU/ML [id number] 00:00:00 Test Item Value Reference Range Interpretation Comments TSH (test code = 2821) 1.06 UIU/ML [id number] 00:00:00 Test Item Value Reference Range Interpretation Comments TSH (test code = 2821) 1.06 UIU/ML CBC W/AUTO [id number] 00:00:00 Test Item Value Reference Range Interpretation [...] (test code = 1016) (NOTE) CBC W/AUTO [id number] 00:00:00 Test Item Value Reference Range Interpretation [...] (test code = 1016) (NOTE) CBC W/AUTO [id number] 00:00:00 Test Item Value Reference Range Interpretation [...] COMMENTS (test code = 1016) (NOTE) LIPID [id number] 00:00:00 Test Item Value Reference Range Interpretation Comments CHOLESTEROL (test code = 2210) 127 MG/DL TRIGLYCERIDES (test code = 2232) 108 MG/DL HDL CHOLESTEROL (test code = 2220) 33 MG/DL CALC LDL CHOL (test code = 2237) 72 MG/DL RISK RATIO LDL/HDL (test code = 2.19 RATIO 2238) LIPID [id number] 00:00:00 Test Item Value Reference Range Interpretation Comments CHOLESTEROL (test code = 2210) 127 MG/DL TRIGLYCERIDES (test code = 2232) 108 MG/DL HDL CHOLESTEROL (test code = 2220) 33 MG/DL CALC LDL CHOL (test code = 2237) 72 MG/DL RISK RATIO LDL/HDL (test code = 2.19 RATIO 2238) COMPREHENSIVE METABOLIC [id number] 00:00:00 Test Item Value Reference Range Interpretation Comments GLUCOSE (test code = 2217) 99 MG/DL BUN (test code = 2208) 7 MG/DL CREATININE (test code = 2214) 0.47 MG/DL eGFR AMER. (test code 146 ML/MIN/1.73 = 51545) eGFR NON- AMER. (test 126 ML/MIN/1.73 code = 68600) CALC BUN/CREAT (test code = 15 RATIO [...] A/G RATIO (test code = 0.9 RATIO 2234) BILIRUBIN, TOTAL (test code = 0.3 MG/DL 2206) ALKALINE PHOSPHATASE (test 109 U/L code = 2204) AST (test code = 2218) 23 U/L ALT (test code = 2219) 24 U/L COMPREHENSIVE METABOLIC [id number] 00:00:00 Test Item Value Reference Range Interpretation Comments GLUCOSE (test code = 2217) 99 MG/DL BUN (test code = 2208) 7 MG/DL CREATININE (test code = 2214) 0.47 MG/DL eGFR AMER. (test code 146 ML/MIN/1.73 = 27067) eGFR NON- AMER. (test 126 ML/MIN/1.73 code = 39289) CALC BUN/CREAT (test code = 15 RATIO [...] A/G RATIO (test code = 0.9 RATIO 2234) BILIRUBIN, TOTAL (test code = 0.3 MG/DL 7) ALKALINE PHOSPHATASE (test 109 U/L code = 2204) AST (test code = 2218) 23 U/L ALT (test code = 2219) 24 U/L HEMOGLOBIN [id number] 00:00:00 Test Item Value Reference Range Interpretation Comments HEMOGLOBIN A1c (test code = 81485) 6.1 % HEMOGLOBIN [id number] 00:00:00 Test Item Value Reference Range Interpretation Comments HEMOGLOBIN A1c (test code = 19547) 6.1 % HEMOGLOBIN [id number] 00:00:00 Test Item Value Reference Range Interpretation Comments HEMOGLOBIN A1c (test code = 14797) 6.1 % [id number] 00:00:00 Test Item Value Reference Range Interpretation Comments TSH (test code = 2821) 1.06 UIU/ML [id number] 00:00:00 Test Item Value Reference Range Interpretation Comments TSH (test code = 2821) 1.06 UIU/ML [id number] 00:00:00 Test Item Value Reference Range Interpretation Comments TSH (test code = 2821) 1.06 UIU/ML CBC W/AUTO [id number] 00:00:00 Test Item Value Reference Range Interpretation [...] (test code = 1016) (NOTE) CBC W/AUTO [id number] 00:00:00 Test Item Value Reference Range Interpretation [...]
[2022-02-19] MEDS ORDERED: METOCLOPRAMIDE 10 MG/2mL INJ ONE (18:05)
[2022-02-19] MEDS ORDERED: ONDANSETRON 4 MG/2 ML VIAL ONE (18:06)
[2022-02-19] MEDS ORDERED: NA CHLORIDE 0.9% 1,000 ML ONE (18:06)
[2022-02-19] MEDS ORDERED: MORPHINE 4 MG/ML SYR ONE (18:06)
[2022-02-19 18:36] LABS: Absolute Lymphocytes (CBC) 1.3 K/uL (0.7-4.9); Hematocrit 34.2 % (36.0-45.0); Lymphocytes % 15.2 % (15.3-44.8); MCV 85.9 fL (80-100); MPV 7.9 fL (7.6-11.3); RBC Red Blood Cell Count 3.98 M/uL (3.86-4.86)
[2022-02-19 18:37] LABS: Potassium 3.8 mmol/L (3.5-5.1); Troponin High Sensitivity 5.8 pg/mL (<58.9)
[2022-02-19 18:38] LABS: Protime INR 1.02
--- NOTE | 2022-02-19 19:30 | RAD REPORT ---
EXAM DESCRIPTION: RAD - Chest Single View - 02/19/2022 7:18 pm CLINICAL HISTORY: CHEST PAIN COMPARISON: Chest Single View dated 12/22/2021; Chest Single View dated 08/26/2021; Chest Single View dated 07/15/2021; Chest Single View dated 06/21/2021 FINDINGS: Lines: None. Lungs: No evidence of edema or pneumonia. Hazy bilateral opacities likely related to underpenetration from soft tissues. Pleural: No significant pleural effusions or pneumothorax. Cardiac: The heart size is within normal limits. Mediastinum: Within normal limits. Bones: No acute fractures. Other: None IMPRESSION: No acute cardiopulmonary disease. No change from prior.
--- NOTE | 2022-02-19 19:40 | RAD REPORT ---
EXAM DESCRIPTION: CT - Neck Angio - 02/19/2022 7:33 pm CLINICAL HISTORY: headache COMPARISON: No comparisons TECHNIQUE: CT angiography of the neck vessels was performed with MIPs. All CT scans are performed using dose optimization technique as appropriate and may include automated exposure control or mA/KV adjustment according to patient size. FINDINGS: A left aortic arch is identified with normal three vessel configuration of the great vesse ls. No significant flow abnormality is seen of the common carotid bilaterally. No significant stenosis is identified involving the cervical segments of both internal carotid arteri es. Normal flow is seen within both vertebral arteries. Mild left dominant vertebral artery. IMPRESSION: No significant flow abnormality of the neck vessels is identified.
--- NOTE | 2022-02-19 19:43 | RAD REPORT ---
EXAM DESCRIPTION: CT - Head Brain Wo Cont - 02/19/2022 7:33 pm CLINICAL HISTORY: headache COMPARISON: Head Brain Wo Cont dated 03/31/2021; Head Brain Wo Cont dated 12/14/2020; Neck Angio dated 02/19/2022 TECHNIQUE: All CT scans are performed using dose optimization technique as appropriate and may inclu de automated exposure control or mA/KV adjustment according to patient size. FINDINGS: No intracranial hemorrhage, hydrocephalus or extra-axial fluid collection.No areas of brai n edema or evidence of midline shift. Probable Chiari 1 malformation. The paranasal sinuses and mastoids are clear. The calvarium is intact. IMPRESSION: No acute intracranial abnormality. Suspect Chiari 1 malformation.
--- NOTE | 2022-02-19 19:44 | RAD REPORT ---
EXAM DESCRIPTION: CT - Head angio - 02/19/2022 7:32 pm CLINICAL HISTORY: headache COMPARISON: Head Brain Wo Cont dated 02/19/2022; Head Brain Wo Cont dated 03/31/2021 TECHNIQUE: CT angiography of the head was performed with MIPs. All CT scans are performed using dose optimization technique as appropriate and may include automated exposure control or mA/KV adjustment according to patient size. FINDINGS: Anterior circulation: No aneurysm or large vessel occlusion. No hemodynamically significant stenosis. No arteriovenous malf ormation identified. Posterior circulation: No aneurysm or large vessel occlusion. No hemodynamically significant stenosis. No arteriovenous malf ormation identified. IMPRESSION: No significant flow abnormality is detected.
--- NOTE | 2022-02-19 20:32 | EDPHYS ---
Physician Documentation [facility] Name: Kina Parham Age: 41 yrs Sex: Female : 1980 Arrival Date: 02/19/2022 Time: 17:18 Bed 7 Private MD: ABA Physician Claire Reddy HPI: 02/19 18:03 This 41 yrs old Female presents to ER via Wheelchair with complaints of rn headache, chest pain. 18:03 The patient complains of pain to the forehead. The patient describes the headache as rn aching, throbbing. Onset: The symptoms/episode began/occurred 3 day(s) ago. Associated signs and symptoms: Pertinent negatives: altered mental status, fever, neck stiffness, paresthesias, Photophobia rash, vision changes, vision loss, weakness, vertigo. Severity of symptoms: At its worst the pain was moderate, in the emergency department the pain is unchanged. Headache History: The patient has had previous headaches and this one is similar to previous episodes. The symptoms are alleviated by nothing. the symptoms are aggravated by nothing. The patient has not experienced similar symptoms in the past. The patient has not recently seen a physician. Pt reports hx of headaches, had recent LP at [facility] when presented with headache, told "was normal". cannot tell me if had elevated pressures or not. No trauma. + headaches before similar to this one, now 3 days into this headache, frontal and top of head. No neck stiffness. No hx of aneurysm or bleed. Also report 2 days of chest pain, feels like it comes from neck/head. Left sided and radiates down left arm. . DIRECTOR FIXED INCOME: 17:31 LMP 01/27/2022 vg1 Historical: - Allergies: 17:31 No Known Allergies; vg1 - Home Meds: 17:31 Acetazolamide Oral [Active]; Lisinopril Oral [Active]; vg1 - PMHx: 17:31 Arthritis; Asthma; Hypertension; Pneumonia; vg1 - PSHx: 17:31 tubal ligation; vg1 - Immunization history:: Client reports receiving the 2nd dose of the Covid vaccine. - Social history:: Smoking status: Patient denies any tobacco usage or history of. - Family history:: not pertinent. - Hospitalizations: : No recent hospitalization is reported. ROS: 18:03 Constitutional: Negative for fever, chills, and weight loss, Eyes: Negative for injury, rn pain, redness, and discharge, Neck: Negative for injury, pain, and swelling, Cardiovascular: Negative for palpitations, and edema Respiratory: Negative for shortness of breath, cough, wheezing, and pleuritic chest pain, Abdomen/GI: Negative for abdominal pain, nausea, vomiting, diarrhea, and constipation, Back: Negative for injury and pain, MS/Extremity: Negative for injury and deformity, Skin: Negative for injury, rash, and discoloration, Neuro: + for headache, negative for seizure. Exam: 17:51 ECG was reviewed by the Attending Physician. rn 18:03 Constitutional: This is a well developed, well nourished patient who is awake, alert, rn appears in pain Head/Face: Normocephalic, atraumatic. Eyes: Pupils equal round and reactive to light, extra-ocular motions intact. Neck: Supple, full range of motion without nuchal rigidity, or vertebral point tenderness. No Meningismus. Cardiovascular: Regular rate and rhythm. No pulse deficits. Respiratory: Mild tachypnea, speaks full sentences, no retractions Abdomen/GI: Soft, non-tender Skin: Warm, dry with normal turgor. Normal color with no rashes, no lesions, and no evidence of cellulitis. MS/ Extremity: Pulses equal, no cyanosis. Neurovascular intact. Full, normal range of motion. Equal circumference. Neuro: Awake and alert, GCS 15, oriented to person, place, time, and situation. Cranial nerves II-XII grossly intact. Motor strength 5/5 in all extremities. Sensory grossly intact. Cerebellar exam normal. Vital Signs: 17:25 Pulse 87; Resp 22; Temp 98.1(TE); Pulse Ox 97% on R/A; Weight 131.54 kg; Pain 10/10; vg1 17:33 BP 168 / 86; vg1 18:42 BP 156 / 85; Pulse 68; Resp 16; Pulse Ox 98% on 2 lpm NC; Pain 5/10; hb 19:48 BP 123 / 69; Pulse 80; Resp 19 S; Pulse Ox 100% on R/A; as6 20:15 BP 149 / 83; Pulse 72; Resp 18 S; Pulse Ox 100% on 2 lpm NC; ha1 20:41 BP 159 / 82; Pulse 70; Resp 22 S; Pulse Ox 97% on R/A; as6 MDM: 17:35 Patient medically screened. rn 20:30 Data reviewed: vital signs, nurses notes, lab test result(s), EKG, radiologic studies. sd2 ED course: Labs and imaging reviewed. No significant acute abnormalities. Pain improved at time of my repeat exam. Pt states Topamax she was previously on was helping with these headaches and she was taken off of it by [facility]. Will restart for possible migrainous process and patient is working on arranging Neurology follow up. Verbalizes understanding of discharge plan and strict return precautions. . 02/19 17:59 Order name: Basic Metabolic Panel; Complete Time: 18:44 rn 02/19 17:59 Order name: CBC with Diff; Complete Time: 18:44 rn 02/19 17:59 Order name: CT Head Angio; Complete Time: 19:46 rn 02/19 17:59 Order name: NT PRO-BNP; Complete Time: 18:44 rn 02/19 17:59 Order name: PT-INR; Complete Time: 18:44 rn 02/19 17:59 Order name: Troponin HS; Complete Time: 18:44 rn 02/19 17:59 Order name: Neck Angio CT; Complete Time: 19:46 rn 02/19 17:59 Order name: CT Head Brain wo Cont; Complete Time: 19:46 rn 02/19 17:59 Order name: XRAY Chest (1 view); Complete Time: 19:46 rn 02/19 17:59 Order name: EKG; Complete Time: 18:00 rn 02/19 17:59 Order name: Cardiac monitoring; Complete Time: 18:07 rn 02/19 17:59 Order name: EKG - Nurse/Tech; Complete Time: 18:07 rn 02/19 17:59 Order name: IV Saline Lock; Complete Time: 18:07 rn 02/19 17:59 Order name: Labs collected and sent; Complete Time: 18:07 rn 02/19 17:59 Order name: O2 Per Protocol; Complete Time: 18:07 rn 02/19 17:59 Order name: O2 Sat Monitoring; Complete Time: 18:07 rn EC:51 Rate is 88 beats/min. Rhythm is regular. QRS [place] is Normal. OR interval is normal. QRS rn interval is normal. QT interval is normal. No Q waves. T waves are Normal. No ST changes noted. Clinical impression: Normal ECG. Interpreted by me. Reviewed by me. Administered Medications: 18:09 Drug: morphine 4 mg Route: IVP; Infused Over: 4 mins; Site: right antecubital; hb 20:42 Follow up: Response: No adverse reaction as6 18:09 Drug: Zofran (Ondansetron) 4 mg Route: IVP; Site: right antecubital; hb 20:42 Follow up: Response: No adverse reaction as6 18:09 Drug: NS 0.9% 500 ml Route: IV; Rate: bolus; Site: right antecubital; hb 20:41 Follow up: Response: No adverse reaction; IV Status: Completed infusion; IV Intake: as6 500ml 18:09 Drug: Reglan (metoCLOPramide) 10 mg Route: IVP; Site: right antecubital; hb 20:41 Follow up: Response: No adverse reaction as6 20:51 Drug: Topamax (topiramate) 25 mg Route: PO; as6 20:52 Follow up: Response: No adverse reaction as6 Disposition Summary: 02/19/22 20:32 Discharge Ordered Location: Home sd2 Problem: an acute exacerbation sd2 Symptoms: have improved sd2 Condition: Stable sd2 Diagnosis - Cephalgia sd2 - Chest pain, unspecified sd2 Followup: sd2 - With: Private Physician - When: 2 - 3 days - Reason: Recheck today's complaints, Continuance of care, Re-evaluation by your physician Discharge Instructions: - Discharge Summary Sheet sd2 - Nonspecific Chest Pain, Adult sd2 - General Headache Without Cause sd2 - Migraine Headache sd2 Forms: - Medication Reconciliation Form sd2 - Thank You Letter sd2 - Antibiotic Education sd2 - Prescription Opioid Use sd2 Prescriptions: - Topamax 25 mg Oral tablet - take 1 tablet by ORAL route 2 times per day; 28 tablet; Refills: 0, Product sd2 Selection Permitted Signatures: Dispatcher [employer] John Whiting MD MD rn Baxter, Heather RN RN Elizabeth Nix RN RN vg1 Jose Casas RN RN as6 Claire Reddy MD MD sd2
--- NOTE | 2022-02-19 20:32 | ER ---
Nurse's Notes [facility] Name: Kina Parham Age: 41 yrs Sex: Female : 1980 Arrival Date: 02/19/2022 Time: 17:18 Bed 7 Private MD: Diagnosis: Cephalgia;Chest pain, unspecified Presentation: 02/19 17:25 Chief complaint: Patient's son or daughter states: Pt was seen in [facility] for vg1 h/a and and LP was done. Pt c/o chest pain that radiates to Left arm, also states h/a that began yesterday. Coronavirus screen: Vaccine status: Patient reports receiving the 2nd dose of the covid vaccine. Client denies travel out of the [place] in the last 14 days. Ebola Screen: Patient negative for fever greater than or equal to 101.5 degrees Fahrenheit, and additional compatible Ebola Virus Disease symptoms. Initial Sepsis Screen: Does the patient meet any 2 criteria? RR > 20 per min. Does the patient have a suspected source of infection? No. Patient's initial sepsis screen is negative. Risk Assessment: Do you want to hurt yourself or someone else? Patient reports no desire to harm self or others. Onset of symptoms was February 18, 2022. 17:25 Method Of Arrival: Wheelchair vg1 17:25 Acuity: DOMINIC 2 vg1 Triage Assessment: 17:31 General: Appears in no apparent distress. uncomfortable, Behavior is cooperative, vg1 crying. Pain: Complains of pain in chest and left arm and head Pain radiates to left arm Pain currently is 10 out of 10 on a pain scale. Pain began 1 day ago. Cardiovascular: Patient's skin is warm and dry. Respiratory: Reports shortness of breath at rest Airway is patent Respiratory effort is even, unlabored. GI: Reports nausea. Derm: Skin is pink, warm \\T\\ dry. INFORMATICIST: 17:31 LMP 01/27/2022 vg1 Historical: - Allergies: 17:31 No Known Allergies; vg1 - Home Meds: 17:31 Acetazolamide Oral [Active]; Lisinopril Oral [Active]; vg1 - PMHx: 17:31 Arthritis; Asthma; Hypertension; Pneumonia; vg1 - PSHx: 17:31 tubal ligation; vg1 - Immunization history:: Client reports receiving the 2nd dose of the Covid vaccine. - Social history:: Smoking status: Patient denies any tobacco usage or history of. - Family history:: not pertinent. - Hospitalizations: : No recent hospitalization is reported. Screenin:43 [facility] ED Fall Risk Assessment (Adult) History of falling in the last 3 months, aa5 including since admission No falls in past 3 months (0 pts) Confusion or Disorientation No (0 pts) Intoxicated or Sedated No (0 pts) Impaired Gait No (0 pts) Mobility Assist Device Used No (0 pt) Altered Elimination No (0 pt) Score/Fall Risk Level 0 - 2 = Low Risk. Abuse screen: Denies threats or abuse. Nutritional screening: No deficits noted. Tuberculosis screening: No symptoms or risk factors identified. Assessment: 17:35 General: Appears uncomfortable, obese, Behavior is calm, cooperative. Pain: Complains aa5 of pain in whole head and left side of chest Pain radiates to left arm Pain currently is 10 out of 10 on a pain scale. Quality of pain is described as sharp, Pain began reports head pain began "a while ago but got worse yesterday" and reports chest pain began yesterday. Is continuous. 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 Speech is normal, Facial symmetry appears normal, Pupils are PERRLA, Reports generalized weakness since yesterday. . Cardiovascular: Heart tones S1 S2 present Rhythm is regular. Respiratory: Airway is patent Respiratory effort is even, unlabored, Respiratory pattern is regular, symmetrical. GI: Abdomen is round non-distended, Bowel sounds present X 4 quads. Abd is soft and non tender X 4 quads. Reports nausea, Patient currently denies diarrhea, vomiting. : No signs and/or symptoms were reported regarding the genitourinary system. EENT: No signs and/or symptoms were reported regarding the EENT system. Derm: Skin is pink, warm \\T\\ dry. Musculoskeletal: Range of motion: intact in all extremities. 18:41 Reassessment: Pt resting with eyes closed, easy to awaken to verbal stimuli, O2 sat aa5 noted to be 85% RA, O2 administered via NC at 2 L and O2 sat currently 98%. . 19:15 General: Appears comfortable, Behavior is calm, cooperative. Pain: Complains of pain in ha1 back of head Pain currently is 7 out of 10 on a pain scale. Quality of pain is described as throbbing, Pain began suddenly, Alleviated by medications. Neuro: Level of Consciousness is awake, alert, obeys commands, Oriented to person, place, time, situation, Reports headache occipital area. Cardiovascular: Heart tones S1 S2 present Patient's skin is warm and dry. Respiratory: Airway is patent Respiratory effort is even, unlabored, Respiratory pattern is regular, symmetrical. GI: Abdomen is non-distended, obese, Bowel sounds present X 4 quads. : No signs and/or symptoms were reported regarding the genitourinary system. EENT: No deficits noted. No signs and/or symptoms were reported regarding the EENT system. Derm: Skin is pink, warm \\T\\ dry. Musculoskeletal: Circulation, motion, and sensation intact. Range of motion: intact in all extremities. 19:48 Reassessment: provider at bedside talking to family and pt. as6 20:15 Reassessment: Patient and/or family updated on plan of care and expected duration. Pain ha1 level reassessed. Patient is alert, oriented x 3, equal unlabored respirations, skin warm/dry/pink. Vital Signs: 17:25 Pulse 87; Resp 22; Temp 98.1(TE); Pulse Ox 97% on R/A; Weight 131.54 kg; Pain 10/10; vg1 17:33 BP 168 / 86; vg1 18:42 BP 156 / 85; Pulse 68; Resp 16; Pulse Ox 98% on 2 lpm NC; Pain 5/10; hb 19:48 BP 123 / 69; Pulse 80; Resp 19 S; Pulse Ox 100% on R/A; as6 20:15 BP 149 / 83; Pulse 72; Resp 18 S; Pulse Ox 100% on 2 lpm NC; ha1 20:41 BP 159 / 82; Pulse 70; Resp 22 S; Pulse Ox 97% on R/A; as6 ED Course: 17:18 Patient arrived in ED. am2 17:31 Triage completed. vg1 17:31 Arm band placed on. EKG completed in triage. Results shown to MD. vg1 17:35 John Cha MD is Attending Physician. rn 17:35 Patient has correct armband on for positive identification. Bed in low position. Call aa5 light in reach. Side rails up X2. Adult w/ patient. Client placed on continuous cardiac and pulse oximetry monitoring. NIBP monitoring applied. 17:46 Danielle Robert, RN is Primary Nurse. aa5 18:05 Initial lab(s) drawn, by in, sent to lab. Inserted saline lock: 22 gauge in right aa5 forearm, using aseptic technique. Blood collected. 18:05 No provider procedures requiring assistance completed. Patient maintains SpO2 aa5 saturation greater than 95% on room air. 18:13 Inserted saline lock: 20 gauge in left antecubital area, using aseptic technique. aa5 18:30 Lab(s) recollected, by ED staff, sent to lab. aa5 19:05 Report given to GLORIA Garcia and GLORIA Gomez. aa5 19:08 Attending Physician role handed off by John Cha MD sd2 19:08 Claire Reddy MD is Attending Physician. sd2 19:20 XRAY Chest (1 view) In Process Unspecified. EDMS 19:34 CT Head Angio In Process Unspecified. EDMS 19:[address] In Process Unspecified. EDMS 19:35 CT Head Brain wo Cont In Process Unspecified. EDMS 20:52 IV discontinued, intact, bleeding controlled, No redness/swelling at site. Pressure as6 dressing applied. Administered Medications: 18:09 Drug: morphine 4 mg Route: IVP; Infused Over: 4 mins; Site: right antecubital; hb 20:42 Follow up: Response: No adverse reaction as6 18:09 Drug: Zofran (Ondansetron) 4 mg Route: IVP; Site: right antecubital; hb 20:42 Follow up: Response: No adverse reaction as6 18:09 Drug: NS 0.9% 500 ml Route: IV; Rate: bolus; Site: right antecubital; hb 20:41 Follow up: Response: No adverse reaction; IV Status: Completed infusion; IV Intake: as6 500ml 18:09 Drug: Reglan (metoCLOPramide) 10 mg Route: IVP; Site: right antecubital; hb 20:41 Follow up: Response: No adverse reaction as6 20:51 Drug: Topamax (topiramate) 25 mg Route: PO; as6 20:52 Follow up: Response: No adverse reaction as6 Medication: 18:46 VIS not applicable for this client. aa5 Intake: 20:41 IV: 500ml; Total: 500ml. as6 Outcome: 20:32 Discharge ordered by . sd2 20:41 Discharged to home ambulatory, with family. as6 20:41 Condition: stable 20:41 Discharge instructions given to patient, family, Instructed on discharge instructions, follow up and referral plans. medication usage, Demonstrated understanding of instructions, follow-up care, medications, Prescriptions given X 1. 20:52 Patient left the ED. as6 Signatures: Dispatcher [employer] EDMS John Cha MD MD rn Calderon, Danielle, RN RN aa5 Willa Coello, RN RN Kely Crowley Victoria RN RN vg1 Jose Casas RN RN as6 Claire Reddy MD MD sd2 Patricia Landa, RN RN ha1 Corrections: (The following items were deleted from the chart) 20:52 20:41 Discharged to home with family, as6 as6
[2022-02-19] MEDS ORDERED: TOPIRAMATE 25 MG TAB ONE (20:47)
[2022-02-19 21:19] VITALS: TEMP 98.1
[2022-02-19 21:26] VITALS: BP 159/82; O2SAT 97
--- NOTE | 2022-02-21 16:31 | EKG ---
Test Date: 2022-02-19 Test Time: 17:27:52 Flight Surveyor: CARLOS MEASUREMENT RESULTS: Intervals: Rate: 88 [place]: 174 QRSD: 90 QT: 344 QTc: 416 [place]: P: 54 [place]: 174 QRS: 83 T: 14 INTERPRETIVE STATEMENTS: Normal sinus rhythm Normal ECG Compared to ECG 12/22/2021 08:45:13 No significant changes Electronically Signed On 02-21-22 16:28:09 HUMAN RESOURCES EXECUTIVE ASSISTANT by Rafael Vega
== END 2022-02-19 20:52 | disposition home or self-care (01) ==
LOC: ER 17:17
DX: R51.9 Headache, unspecified (principal); R07.9 Chest pain, unspecified
CPT/HCPCS: 36415; 70450; 70496; 70498; 71045; 80048; 83880; 84484; 85025; 85610; 93005; 96361; 96374; 96375; 99284; J2405; J2765; J7030; Q9967

== ENCOUNTER 2022-07-01 11:39 | Emergency (ER) | payer OTHER, SELFPAY ==
--- OUTSIDE RECORDS SUMMARY | 2022-07-01 11:54 | XMS REPORT | Continuity of Care Document ---
:[address] [facility] t Address [address] [place] [address] Care Team Providers Name Role Phone [facility] Primary Care Physician Unavailable JORDAN GRIMALDO Attending Clinician Unavailable JORDAN GRIMALDO Attending Clinician Unavailable STEPHANIE CLAYTON Attending Clinician Unavailable Doctor Unassigned, [place] Attending Clinician Unavailable LUKAS BURT Attending Clinician Unavailable Rufina Campos RN Attending Clinician Leila Junior MD, [place] Attending Clinician Snehal DEVINE, Shannan Attending Clinician SAVANNA ALEX Attending Clinician Unavailable ALAN BENJAMIN Attending Clinician Unavailable Alan Benjamin DO Attending Clinician TOMOGRAPHY, CK OPTICAL COHERENCE Attending Clinician Unavail able LAB90 Attending Clinician Unavailable BARRY GUEVARA Attending Clinician Unavailable Magda Gilliam LVN Attending Clinician JONES PHIPPS Attending Clinician Unavailable Mariusz Deluca MD Attending Clinician Arnold Laureano MD Attending Clinician Mayte Addison DO Attending Clinician Jones Phipps MD Attending Clinician Tracie William MD Attending Clinician ARNOLD LAUREANO Attending Clinician Unavailable PAYAL RAY Attending Clinician Unavailable Jeanna Small Attending Clinician Payal Ray MD Attending Clinician RENATA ACOSTA Attending Clinician Unavailable Renata Acosta DO Attending Clinician Tamika Vieira DO Attending Clinician Vitaliy Eason DO Attending Clinician TAMIKA VIEIRA Attending Clinician Unavailable MIGUEL MENDOZA Attending Clinician Unavailable Miguel Mendoza MD Attending Clinician Carolynn Lopez MD Attending Clinician JORDAN GRIMALDO Admitting Clinician Unavailable TRACIE WILLIAM Admitting Clinician Unavailable Tracie William MD Admitting Clinician ARNOLD LAUREANO Admitting Clinician Unavailable PAYAL RAY Admitting Clinician Unavailable Payal Ray MD Admitting Clinician RENATA ACOSTA Admitting Clinician Unavailable Vitaliy Eason DO Admitting Clinician CAROLYNN LOPEZ Admitting Clinician Unavailable Carolynn Lopez MD Admitting Clinician Payers Payer Name Policy Type Policy Number Effective Date Expiration Date Prema hinojosa 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 MP 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 9 [id number] 2022 00:00:00 2: [facility] 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 ON Problems Condition Condition Condition Status Onset Resolution Last Treating Co mments Source Name Details Category Date Date Treatment Clinician Date Status Status Disease Active Franny 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 Seybold ventriculo ventriculo 00:00: - -peritonea -peritonea 00 Ex terna l shunt l shunt l placement placement Prediabete Prediabete Disease Active K elsey s s 05-20 Seybold 00:00: - 00 Externa l Other Other Disease Active Franny specified specified 05-20 Seyb old anemias anemias 00:00: - 00 Externa l Arnold-Chi Arnold-Chi Disease Recurre Univers dickson dickson nce 3-20 ity of malformati malformat[place], type I on, type I 00 Me dical Branch Tonsillar Tonsillar Disease Active Uni vers hernia hernia 3-20 ity of into into 00:00: [place] foramen foramen 00 Medical [employer] Branch Papilledem Papilledem Disease Active U nivers a a 3-20 ity of 00:00: [place] 00 Medical Branch IIH IIH Disease Active Univers (idiopathi (idiopathi 3-17 it y of c c 00:00: [place] intracrani intracrani 00 Me dical al al Branch hypertensi hypertensi on) on) Primary Primary Disease Active Franny hypertensi hypertensi 3-08 Se ybold on on 00:00: - 00 Externa l Class 3 Class 3 Disease Active Franny severe severe 3-08 [facility] obesity obesity 00:00: - due to due to 00 Externa excess excess l calories calories without without serious serious comorbidit comorbidit y with y with body mass body mass index index (BMI) of (BMI) of 50.0 to 50.0 to 59.9 in 59.9 in adult adult Chiari Chiari Disease Active Franny malformati malformati 3-08 Se ybold on type I on type I 00:00: - 00 Externa l Benign Benign Disease Active Franny intracrani intracrani 3-08 Se ybold al al 00:00: - hypertensi hypertensi 00 Ex terna on on l Snoring Snoring Disease Active Franny 3-08 Seybold 00:00: - 00 Externa l Mild Mild Disease Active Franny intermitte intermitte 3-08 Se ybold nt asthma nt asthma 00:00: - without without 00 Externa complicati complicati l on on Morbid Morbid Disease Active 2021-02 Univers obesity obesity 1-29 ity of with body with body 00:[place] mass index mass index 00 Me dical of 50 or of 50 or Branch higher higher Other Other Disease Active 2021-02 Univers headache headache 1-29 ity of syndrome syndrome 00:00: [place] 00 Medical Branch Hypoxia Hypoxia Disease Active 2021-02 Univers 1-28 ity of 00:00: [place] 00 Medical Branch Asthma Asthma Disease Active Univers with acute with acute 818 it y of exacerbati exacerbati 00:[place], on, 00 Medical unspecifie unspecifie Br anch d asthma d asthma severity, severity, unspecifie unspecifie d whether d whether persistent persistent Shortness Shortness Disease Active Uni vers of breath of breath 5-27 ity of 00:00: [place] 00 Medical Branch Pneumonia Pneumonia Disease Active Uni vers 5-27 ity of 00:00: [place] 00 Medical Branch RESENDIZ RESENDIZ Disease Active Univers (dyspnea (dyspnea 5-27 ity of on on 00:00: [place] exertion) exertion) 00 [facility] Branch Tachycardi Tachycardi Disease Active U nivers a a 5-27 ity of 00:00: [place] 00 Medical Branch Essential Essential Disease Active Uni vers hypertensi hypertensi 5-27 it y of on on 00:00: [place] 00 Medical Branch Normal Normal Disease Active Univers delivery delivery 09-13 ity of 00:00: [place] 00 Medical Branch Screening Screening Disease Active Overview: Univers for for 7- Formattin ity of diabetes diabetes 00:00: g of this Kike as mellitus mellitus 00 note Medica l might be Branch different from the original. 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 Other Other Disease Active Univers abnormal abnormal ity of glucose glucose [facility] Other Other Disease Active Univers ity of screening screening [facility] Screening Screening Disease Active Uni vers examinatio examinatio it y of n for n for [place] rubella rubella [facility] Supervisio Supervisio Disease Active U nivers n of other n of other it y of normal normal [place] [facility] Branch Allergies, Adverse Reactions, Alerts Allergy Allergy Status Severity Reaction(s) Onset Inactive Treating Comm ents Source Name Type Date Date Clinician NO KNOWN Drug Active Univers ALLERGIE Class ity of [facility] [place] Family History Family Member Diagnosis Comments Start Date Stop Date Source Natural father Diabetes [facility] Natural mother Diabetes [facility] Social History Social Habit Start Date Stop Date Quantity Comments Source History of tobacco Passive smoker Un iversity of use [place] [facility] [place] History SDOH Social Unive rsity of [facility] Med ical Together Branch History SDOH Social Unive rsity of Connections [facility] Branch History SDOH Social Unive rsity of [facility] Medical Membership Branch History SDOH Social Unive rsity of [facility] Medical Meetings Branch Gender identity Franny villafanaold - External Sexual orientation Franny Mi - External Exposure to 2022-05-24 2022-06-03 Not sure University SARS-CoV-2 (event) 00:00:00 12:56:00 [facility] Alcohol intake 2022-05-20 2022-05-20 Lifetime Franny Heriberto bold - 00:00:00 00:00:00 non-drinker External (finding) Tobacco use and 2022-04-29 2022-04-29 Smokeless Universit y of exposure 00:00:00 00:00:00 tobacco non-user [facility] dical Branch History SDOH 2022-04-29 2022-04-29 1 University o f Alcohol Frequency 00:00:00 00:00:00 [place] M edical Branch History SDOH 2022-04-292022-04-29 0 University o f Alcohol Std Drinks 00:00:00 00:00:00 [place] [facility] History SDOH 2022-04-29 2022-04-29 1 University o f Alcohol Binge 00:00:00 00:00:00 [place] Medic al Branch History SDOH Social 2022-04-29 2022-04-29 5 Unive rsity of Connections Phone 00:00:00 00:00:00 [place] M edical Branch History SDOH Social 2022-04-29 2022-04-29 3 Unive rsity of Connections Living 00:00:00 00:00:00 [place] [facility] History SDOH 2022-04-29 2022-04-29 0 University o f Physical Activity 00:00:00 00:00:00 [place] M edical DPW Branch History SDOH 2022-04-29 2022-04-29 0 University o f Physical Activity 00:00:00 00:00:00 [place] M edical MPS Branch History SDOH 2022-04-29 2022-04-29 4 University o f Financial 00:00:00 00:00:00 [place] [facility] History SDOH Food 2022-04-29 2022-04-29 1 Univers ity of Worry 00:00:00 00:00:00 [place] [facility] History SDOH Food 2022-04-29 2022-04-29 1 Univers ity of Scarcity 00:00:00 00:00:00 [place] [facility] History SDOH 2022-04-29 2022-04-29 2 University o f Transport Med 00:00:00 00:00:00 [place] Medic al Branch History SDOH 2022-04-29 2022-04-29 2 University o f Transport Non-Med 00:00:00 00:00:00 [facility] edical Branch History of Social 2022-04-20 2022-04-20 Franny Mi - function 00:00:00 00:00:00 External Education 2022-04-20 2022-04-20 7 Franny Mi - 00:00:00 00:00:00 External Sex [birth year] At [birth year] Franny Hartley ybold - 00:00:00 00:00:00 External Smoking Status Start Date Stop Date Source Never smoked tobacco [facility] Tobacco smoking consumption [facility] Branch Medications Ordered Filled Start Stop Current Ordering Indication Dosage Frequency Signature Comments Components Source Medication Medication Date Date Medication? Clinician (SIG) Name Name Amlodipine Yes [id number] 5mg Take 1 K elsey Besylate 4-07 tablet (5 Seybol d (NORVASC) 5 00:00: mg total) - MG oral 00 by mouth Externa Tablet daily l Lisinopril Yes [id number] 10mg Take 1 K elsey 10 MG oral 4-07 tablet (10 Sey bold Tablet 00:00: mg total) - 00 by mouth Externa daily l Topiramate Yes [id number] 50mg Take 1 K elsey 50 MG oral 4-07 tablet (50 Sey bold Tablet 00:00: mg total) - 00 by mouth 2 Externa times l daily HYDROcodone Yes [id number] 1{tbl} Q.5D Take 1 Franny -Acetaminop 4-07 tablet by Sey bold hen (NORCO) 00:00: mouth 2 - 5-325 MG 00 times Externa oral Tablet daily as l needed for pain HYDROcodone 2022- No Kelse y -Acetaminop 3-27 04-07 Seybold hen (NORCO) 00:00: 00:00 - 5-325 MG 00 :00 Externa oral Tablet l lisinopriL Yes 10mg Take 1 Unive rs 10 mg 3-26 tablet by ity of tablet 16:28: mouth [place] 29 daily. Medical Branch budesonide- Yes 2{puff} Inhale 2 Univers formoteroL 3-26 Puffs as ity o f 160-4.5 16:28: needed. [place] mcg/actuati 29 Medical on inhaler Branch lisinopriL Yes 10mg Take 1 Unive rs 10 mg 3-26 tablet by ity of tablet 16:28: mouth [place] 29 daily. Medical Branch budesonide- Yes 2{puff} Inhale 2 Univers formoteroL 3-26 Puffs as ity o f 160-4.5 16:28: needed. [place] mcg/actuati 29 Medical on inhaler Branch lisinopriL Yes 10mg Take 1 Unive rs 10 mg 3-26 tablet by ity of tablet 16:28: mouth [place] 29 daily. Medical Branch budesonide- Yes 2{puff} Inhale 2 Univers formoteroL 3-26 Puffs as ity o f 160-4.5 16:28: needed. [place] mcg/actuati 29 Medical on inhaler Branch lisinopriL 0 Yes 10mg Take 1 Unive rs 10 mg 3-26 tablet by ity of tablet 16:28: mouth [place] 29 daily. Medical Branch budesonide- Yes 2{puff} Inhale 2 Univers formoteroL 3-26 Puffs as ity o f 160-4.5 16:28: needed. [place] mcg/actuati 29 Medical on inhaler Branch lisinopriL Yes 10mg Take 1 Unive rs 10 mg 3-26 tablet by ity of tablet 16:28: mouth [place] 29 daily. Medical Branch budesonide- Yes 2{puff} Inhale 2 Univers formoteroL 3-26 Puffs as ity o f 160-4.5 16:28: needed. [place] mcg/actuati 29 Medical on inhaler Branch lisinopriL Yes 10mg Take 1 Unive rs 10 mg 3-26 tablet by ity of tablet 16:28: mouth [place] 29 daily. Medical Branch budesonide- Yes 2{puff} Inhale 2 Univers formoteroL 3-26 Puffs as ity o f 160-4.5 16:28: needed. [place] mcg/actuati 29 Medical on inhaler Branch lisinopriL Yes 10mg Take 1 Unive rs 10 mg 3-26 tablet by ity of tablet 16:28: mouth [place] 29 daily. Medical Branch budesonide- Yes 2{puff} Inhale 2 Univers formoteroL 3-26 Puffs as ity o f 160-4.5 16:28: needed. [place] mcg/actuati 29 Medical on inhaler Branch enoxaparin Yes 40mg 40 mg, Unive rs (LOVENOX) 3-26 Subcutaneo ity of injection 02:00: us, Q24H, Kike as 40 mg 00 First dose Medical on Sat Branch 05/07/22 at 2100, Until Discontinu ed, Routine gabapentin Yes 100mg 100 mg, Uni vers (NEURONTIN) 3-26 Oral, TID, it y of capsule 100 01:00: First dose [place] mg 00 on Sat Medical 05/07/22 at Branch 1999, Until Discontinu ed, Routine HYDROcodone 0 Yes [id number] 1{tbl} Take 1 Un harriet -acetaminop 3-26 tablet by ity of hen (NORCO) 00:00: mouth [place] 5-325 mg 00 every 6 Medical tablet (six) Branch hours as needed for Pain (scale 7-10). Indication s: acute pain docusate Yes [id number] 100mg Take 1 Un harriet 100 mg 3-26 capsule by ity of capsule 00:00: mouth once [place] 00 daily as Medical needed for Branch Constipati on. HYDROcodone Yes [id number] 1{tbl} Take 1 Un harriet -acetaminop 3-26 tablet by ity of hen (NORCO) 00:00: mouth [place] 5-325 mg 00 every 6 Medical tablet (six) Branch hours as needed for Pain (scale 7-10). Indication s: acute pain docusate Yes [id number] 100mg Take 1 Un harriet 100 mg 3-26 capsule by ity of capsule 00:00: mouth once [place] 00 daily as Medical needed for Branch Constipati on. HYDROcodone 0 Yes [id number] 1{tbl} Take 1 Un harriet -acetaminop 3-26 tablet by ity of hen (NORCO) 00:00: mouth [place] 5-325 mg 00 every 6 Medical tablet (six) Branch hours as needed for Pain (scale 7-10). Indication s: acute pain docusate Yes [id number] 100mg Take 1 Un harriet 100 mg 3-26 capsule by ity of capsule 00:00: mouth once [place] 00 daily as Medical needed for Branch Constipati on. HYDROcodone 2022-0 Yes [id number] 1{tbl} Take 1 Un harriet -acetaminop 3-26 tablet by ity of hen (NORCO) 00:00: mouth [place] 5-325 mg 00 every 6 Medical tablet (six) Branch hours as needed for Pain (scale 7-10). Indication s: acute pain docusate 2023-0 Yes [id number] 100mg Take 1 Un harriet 100 mg 3-26 capsule by ity of capsule 00:00: mouth once [place] 00 daily as Medical needed for Branch Constipati on. HYDROcodone Yes [id number] 1{tbl} Take 1 Un harriet -acetaminop 3-26 tablet by ity of hen (NORCO) 00:00: mouth [place] 5-325 mg 00 every 6 Medical tablet (six) Branch hours as needed for Pain (scale 7-10). Indication s: acute pain docusate Yes [id number] 100mg Take 1 Un harriet 100 mg 3-26 capsule by ity of capsule 00:00: mouth once [place] 00 daily as Medical needed for Branch Constipati on. 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 Restricted medication : JORDAN GRIMALDO ibuprofen Yes 400mg 400 mg, Univ ers (IBU) 3-25 Oral, ity of tablet 400 21:51: Q6HPRN, [place] mg 53 Starting Medical on [facility] 05/07/22 at 1651, Until Discontinu ed, Routine, Pain (scale 4-6) polyethylen Yes 17g 17 g, Unive rs e glycol 3-25 Oral, BID, ity o f 3350 powder 16:00: First dose [place] 17 g 00 on [facility] 05/07/22 at Branch 1100, Until Discontinu ed, Routine polyethylen 0 Yes 17g 17 g, Unive rs e glycol 3-25 Oral, BID, ity o f 3350 powder 16:00: First dose [place] 17 g 00 on [facility] 05/07/22 at Branch 1100, Until Discontinu ed, Routine KCL 20 2022- No 40meq 40 mEq, Univer s mEq/15 mL 3-25 03-25 Oral, ity of solution 40 11:30: 11:20 ONCE, 1 [place] mEq 00 :00 dose, On Medical [facility] 05/07/22 at 0630, Routine lisinopriL 0 Yes 10mg Take 1 Unive rs 10 mg 3-25 tablet by ity of tablet 10:11: mouth [place] 39 daily. Medical Branch budesonide- 2022-0 Yes 2{puff} Inhale 2 Univers formoteroL 3-25 Puffs as ity o f 160-4.5 10:11: needed. [place] mcg/actuati 39 Medical on inhaler Branch amLODIPine 2022-0 Yes [id number] 5mg Take 1 U nivers 5 mg tablet 3-25 tablet by ity of 00:00: mouth [place] 00 daily. Medical Branch docusate 2022-0 Yes [id number] 100mg Take 1 Un harriet 100 mg 3-25 capsule by ity of capsule 00:00: mouth once [place] 00 daily as Medical needed for Branch Constipati on. topiramate 0 Yes [id number] 50mg Take 1 U nivers 50 mg 3-25 tablet by ity of tablet 00:00: mouth 2 [place] 00 (two) Medical times Branch daily. HYDROcodone 0 Yes [id number] 1{tbl} Take 1 Un harriet -acetaminop 3-25 tablet by ity of hen (NORCO) 00:00: mouth [place] 5-325 mg 00 every 6 Medical tablet (six) Branch hours as needed for Pain (scale 7-10). Indication s: acute pain ondansetron 0 Yes [id number] 4mg Take 1 Univers (ZOFRAN) 4 3-25 tablet by ity of mg tablet 00:00: mouth [place] 00 every 8 Medical (eight) Branch hours as needed for Nausea and Vomiting (N/V). amLODIPine 2022-0 Yes [id number] 5mg Take 1 U nivers 5 mg tablet 3-25 tablet by ity of 00:00: mouth [place] 00 daily. Medical Branch topiramate 2022-0 Yes [id number] 50mg Take 1 U nivers 50 mg 3-25 tablet by ity of tablet 00:00: mouth 2 [place] 00 (two) Medical times Branch daily. ondansetron 2022-0 Yes [id number] 4mg Take 1 Univers (ZOFRAN) 4 3-25 tablet by ity of mg tablet 00:00: mouth [place] 00 every 8 Medical (eight) Branch hours as needed for Nausea and Vomiting (N/V). amLODIPine 3-0 Yes [id number] 5mg Take 1 U nivers 5 mg tablet 3-25 tablet by ity of 00:00: mouth [place] 00 daily. Medical Branch topiramate 3-0 Yes [id number] 50mg Take 1 U nivers 50 mg 3-25 tablet by ity of tablet 00:00: mouth 2 [place] 00 (two) Medical times Branch daily. ondansetron 2023-0 Yes [id number] 4mg Take 1 Univers (ZOFRAN) 4 3-25 tablet by ity of mg tablet 00:00: mouth [place] 00 every 8 Medical (eight) Branch hours as needed for Nausea and Vomiting (N/V). amLODIPine 3-0 Yes [id number] 5mg Take 1 U nivers 5 mg tablet 3-25 tablet by ity of 00:00: mouth [place] 00 daily. Medical Branch topiramate 3-0 Yes [id number] 50mg Take 1 U nivers 50 mg 3-25 tablet by ity of tablet 00:00: mouth 2 [place] 00 (two) Medical times Branch daily. ondansetron 3-0 Yes [id number] 4mg Take 1 Univers (ZOFRAN) 4 3-25 tablet by ity of mg tablet 00:00: mouth [place] 00 every 8 Medical (eight) Branch hours as needed for Nausea and Vomiting (N/V). amLODIPine 3-0 Yes [id number] 5mg Take 1 U nivers 5 mg tablet 3-25 tablet by ity of 00:00: mouth [place] 00 daily. Medical Branch topiramate 3-0 Yes [id number] 50mg Take 1 U nivers 50 mg 3-25 tablet by ity of tablet 00:00: mouth 2 [place] 00 (two) Medical times Branch daily. ondansetron 3-0 Yes [id number] 4mg Take 1 Univers (ZOFRAN) 4 3-25 tablet by ity of mg tablet 00:00: mouth [place] 00 every 8 Medical (eight) Branch hours as needed for Nausea and Vomiting (N/V). amLODIPine 2023-0 Yes [id number] 5mg Take 1 U nivers 5 mg tablet 3-25 tablet by ity of 00:00: mouth [place] 00 daily. Medical Branch topiramate 2023-0 Yes [id number] 50mg Take 1 U nivers 50 mg 3-25 tablet by ity of tablet 00:00: mouth 2 [place] 00 (two) Medical times Branch daily. ondansetron 2022-0 Yes [id number] 4mg Take 1 Univers (ZOFRAN) 4 3-25 tablet by ity of mg tablet 00:00: mouth [place] 00 every 8 Medical (eight) Branch hours as needed for Nausea and Vomiting (N/V). amLODIPine 2022-0 Yes [id number] 5mg Take 1 U nivers 5 mg tablet 3-25 tablet by ity of 00:00: mouth [place] 00 daily. Medical Branch docusate 2022-0 Yes [id number] 100mg Take 1 Un harriet 100 mg 3-25 capsule by ity of capsule 00:00: mouth once [place] 00 daily as Medical needed for Branch Constipati on. topiramate 2022-0 Yes [id number] 50mg Take 1 U nivers 50 mg 3-25 tablet by ity of tablet 00:00: mouth 2 [place] 00 (two) Medical times Branch daily. HYDROcodone 2022-0 Yes [id number] 1{tbl} Take 1 Un harriet -acetaminop 3-25 tablet by ity of hen (NORCO) 00:00: mouth [place] 5-325 mg 00 every 6 Medical tablet (six) Branch hours as needed for Pain (scale 7-10). Indication s: acute pain ondansetron 2022-0 Yes [id number] 4mg Take 1 Univers (ZOFRAN) 4 3-25 tablet by ity of mg tablet 00:00: mouth [place] 00 every 8 Medical (eight) Branch hours as needed for Nausea and Vomiting (N/V). amLODIPine 2022-0 Yes [id number] 5mg Take 1 U nivers 5 mg tablet 3-25 tablet by ity of 00:00: mouth [place] 00 daily. Medical Branch docusate 2022-0 Yes [id number] 100mg Take 1 Un harriet 100 mg 3-25 capsule by ity of capsule 00:00: mouth once [place] 00 daily as Medical needed for Branch Constipati on. topiramate 2022-0 Yes [id number] 50mg Take 1 U nivers 50 mg 3-25 tablet by ity of tablet 00:00: mouth 2 [place] 00 (two) Medical times Branch daily. HYDROcodone 2022-0 Yes [id number] 1{tbl} Take 1 Un harriet -acetaminop 3-25 tablet by ity of hen (NORCO) 00:00: mouth [place] 5-325 mg 00 every 6 Medical tablet (six) Branch hours as needed for Pain (scale 7-10). Indication s: acute pain ondansetron 0 Yes [id number] 4mg Take 1 Univers (ZOFRAN) 4 3-25 tablet by ity of mg tablet 00:00: mouth [place] 00 every 8 Medical (eight) Branch hours as needed for Nausea and Vomiting (N/V). Docusate 0 Yes [id number] TAKE 1 Ke lsey Sodium 100 3-25 CAPSULE BY Sey bold MG oral 00:00: MOUTH ONCE - Capsule 00 DAILY Externa NEEDED FOR l CONSTIPATI ON. Ondansetron Yes [id number] TAKE 1 Franny HCl 4 MG 3-25 TABLET BY Seybol d oral Tablet 00:00: MOUTH - 00 EVERY 8 Externa HOURS l NEEDED FOR NAUSEA AND VOMITING . Amlodipine 0 2022- No 5mg Take 1 Gloria ey Besylate 3-25 04-07 tablet (5 Seybo ld (NORVASC) 5 00:00: 00:00 mg total) - MG oral 00 :00 by mouth Externa Tablet daily l Topiramate 2022-2022- No 50mg Take 1 Gloria ey 50 MG oral 3-25 04-07 tablet (50 Se ybold Tablet 00:00: 00:00 mg total) - 00 :00 by mouth 2 Externa times l daily topiramate 2022-0 2022- No [id number] 50mg Take 1 Univers 50 mg 3-25 03-25 tablet by ity of tablet 00:00: 00:00 mouth 2 [place] 00 :00 (two) Medical times Branch daily for 90 days. amLODIPine 2022-0 2022- No [id number] 5mg Take 1 Univers 5 mg tablet 3-25 03-25 tablet by it y of 00:00: 00:00 mouth [place] 00 :00 daily for Medical 90 days. Branch docusate 0 3- No [id number] 100mg Take 1 U nivers 100 mg 3-25 03-25 capsule by ity of capsule 00:00: 00:00 mouth once [place]ike as 00 :00 daily as Medical needed for Branch Constipati on for up to 14 days. HYDROcodone 2022- No [id number] 1{tbl} Take 1 U nivers -acetaminop 3-25 03-25 tablet by it y of hen (NORCO) 00:00: 00:00 mouth [place] 5-325 mg 00 :00 every 6 Medical tablet (six) Branch hours as needed for Pain (scale 7-10) for up to 7 days. Indication s: acute pain ondansetron 2022- No [id number] 4mg Take 1 Univers (ZOFRAN) 4 3-25 03-25 tablet by ity of mg tablet 00:00: 00:00 mouth [place] 00 :00 every 8 Medical (eight) Branch hours as needed for Nausea and Vomiting (N/V) for up to 7 days. topiramate 2022- No [id number] 50mg Take 1 Univers 50 mg 3-25 03-25 tablet by ity of tablet 00:00: 00:00 mouth 2 [place] 00 :00 (two) Medical times Branch daily for 90 days. amLODIPine 2022- No [id number] 5mg Take 1 Univers 5 mg tablet 3-25 03-25 tablet by it y of 00:00: 00:00 mouth [place] 00 :00 daily for Medical 90 days. Branch docusate 2022-2022- No [id number] 100mg Take 1 U nivers 100 mg 3-25 03-25 capsule by ity of capsule 00:00: 00:00 mouth once [place] as 00 :00 daily as Medical needed for Branch Constipati on for up to 14 days. HYDROcodone 2022- No [id number] 1{tbl} Take 1 U nivers -acetaminop 3-25 03-25 tablet by it y of hen (NORCO) 00:00: 00:00 mouth [place] 5-325 mg 00 :00 every 6 Medical tablet (six) Branch hours as needed for Pain (scale 7-10) for up to 7 days. Indication s: acute pain ondansetron 2022-2022- No [id number] 4mg Take 1 Univers (ZOFRAN) 4 3-25 03-25 tablet by ity of mg tablet 00:00: 00:00 mouth [place] 00 :00 every 8 Medical (eight) Branch hours as needed for Nausea and Vomiting (N/V) for up to 7 days. ceFAZolin 0 2022- No 1000mg 1,000 mg, Univers (ANCEF) 05-06 Intravenou ity o f injection 20:15: 14:38 s, Q8H [place] 1,000 mg 00 :00 ABX, 3 Medical doses, Branch First dose (after last modificati on) on Mon05/06/22 at 1515, Last dose on Mon05/07/22 at 0715
Re ason for Anti-Infec tive: Surgical Prophylaxi s
Surgi charles Prophylaxi s: Neurosurge ry
Dura tion of therapy: within 24 hours of surgery labetaloL 2022-0 Yes 20mg 20 mg, Univer s (NORMODYNE) 05-06 Slow IV ity o f injection 15:30: Push, [place] 20 mg 30 Q4HPRN, Medical Starting Branch on Mon05/06/22 at 1030, Until Discontinu ed, Routine, SBP >140 labetaloL 2022-0 Yes 20mg 20 mg, Univer s (NORMODYNE) 05-06 Slow IV ity o f injection 15:30: Push, [place] 20 mg 30 Q4HPRN, Medical Starting Branch on Mon05/06/22 at 1030, Until Discontinu ed, Routine, SBP >140 hydralAZINE 2022-0 Yes 10mg 10 mg, Univ ers (APRESOLINE -24 Slow IV ity o f ) injection 15:30: Push, [place] 10 mg 22 Q4HPRN, Medical Starting Branch on Mon05/06/22 at 1030, Until Discontinu ed, Routine, SBP >140 hydralAZINE 3-0 Yes 10mg 10 mg, Univ ers (APRESOLINE -24 Slow IV ity o f ) injection 15:30: Push, [place] 10 mg 22 Q4HPRN, Medical Starting Branch on Mon05/06/22 at 1030, Until Discontinu ed, Routine, SBP >140 vancomycin 2022-0 2022- No PRN, Univer s (VANCOCIN) 05-06 Starting ity of injection 14:30: 16:27 on Mon [place] 00 :46 05/06/22 at Medical 0930, Branch Until Mon05/06/22 at 1127, LOGAN, Intra-op lidocaine-e 2023-0 2023- No PRN, Unive rs pinephrine 05-0624 Starting ity of (XYLOCAINE 13:30: 16:27 on Fri [place] WITH 00 :46 05/06/22 at Medical EPINEPHRINE 0830, Branch ) 0.5 Until Mon %-1:200,000 05/06/22 at injection 1127, Routine, Intra-op proMETHazin 3-0 Yes 12.5mg 12.5 mg, Univers e 05-05 IV ity of (PHENERGAN) 21:01: Piggyback, [place] 12.5 mg in 05 at 200 Medical NS 50 mL IV mL/hr Branch piggyback Administer (CNR) over 15 Minutes, Q4HPRN, Starting on Mon05/05/22 at 1601, Until Discontinu ed, Routine, N/V alternatin g with Ondansetro n proMETHazin 3-0 Yes 12.5mg 12.5 mg, Univers e 05-05 IV ity of (PHENERGAN) 21:01: Piggyback, [place] 12.5 mg in 05 at 200 Medical NS 50 mL IV mL/hr [place] piggyback Administer (CNR) over 15 Minutes, Q4HPRN, Starting on Mon05/05/22 at 1601, Until Discontinu ed, Routine, N/V alternatin g with Ondansetro n acetaminoph 3-0 Yes 1000mg 1,000 mg, Univers en 3-21 Oral, Q8H, ity of (TYLENOL) 03:00: First dose [place] tablet 00 on Mon Medical 1,000 mg 05/02/22 at Branc h 2200, Until Discontinu ed, Routine acetaminoph 2023-0 Yes 1000mg 1,000 mg, Univers en 3-21 Oral, Q8H, ity of (TYLENOL) 03:00: First dose [place] tablet 00 on Mon Medical 1,000 mg 05/02/22 at Bran h 2200, Until Discontinu ed, Routine hydralAZINE 3-0 2023- No 10mg 10 mg, Uni vers (APRESOLINE 05-03 Slow IV ity of ) injection 02:09: 15:30 Push, [place] 10 mg 37 :51 Q4HPRN, Medical Starting Branch on Mon05/02/22 at 2109, Until Mon05/06/22 at 1030, Routine, SBP >160 ondansetron 2023-0 Yes 4mg 4 mg, Slow Univers (ZOFRAN 3-20 IV Push, ity of (PF)) 17:04: Q6HPRN, [place] injection 4 22 Nausea and Me dical mg Vomiting Branch (N/V), Starting on Mon05/02/22 at 1204
Do ses of ondansetro n 16 mg and above need to be administer ed via IV piggyback. For Dose >=24mg ECG monitoring is advisable.
ondansetron 2023-0 Yes 4mg 4 mg, Slow Univers (ZOFRAN 3-20 IV Push, ity of (PF)) 17:04: Q6HPRN, [place] injection 4 22 Nausea and Me dical mg Vomiting Branch (N/V), Starting on Mon05/02/22 at 1204
Do ses of ondansetro n 16 mg and above need to be administer ed via IV piggyback. For Dose >=24mg ECG monitoring is advisable.
morpHINE (2 2022-0 Yes 2mg 2 mg, Slow Univers mg/mL) 3-20 IV Push, ity of injection 2 14:10: Q3HPRN, [place] mg 15 Starting Medical on Mon Branch 05/02/22 at 0910, Until Discontinu ed, Routine, Pain (scale 7-10) morpHINE (2 2022-0 Yes 2mg 2 mg, Slow Univers mg/mL) 3-20 IV Push, ity of injection 2 14:10: Q3HPRN, [place] mg 15 Starting Medical on Mon Branch 05/02/22 at 0910, Until Discontinu ed, Routine, Pain (scale 7-10) pantoprazol 2023-0 Yes 40mg 40 mg, Univ ers e 3-20 Oral, ity of (PROTONIX) 14:00: DAILY, [place] EC tablet 00 First dose Medi charles 40 mg on Mon Branch 05/02/22 at 0900, Until Discontinu ed, Routine pantoprazol 2023-0 Yes 40mg 40 mg, Univ ers e 3-20 Oral, ity of (PROTONIX) 14:00: DAILY, [place] EC tablet 00 First dose Medi charles 40 mg on Mon05/02/22 at 0900, Until Discontinu ed, Routine enoxaparin 2022- No 40mg 40 mg, Univ ers (LOVENOX) 05-0224 Subcutaneo ity of injection 14:00: 01:14 us, Q24H, [place] 40 mg 00 :53 First dose Medical on Mon05/02/22 at 0900, Until Discontinu ed, Routine topiramate 0 Yes 50mg 50 mg, Unive rs (TOPAMAX) 3-20 Oral, BID, ity of tablet 50 01:00: First dose [place] mg 00 (after Medical last Branch modificati on) on [place] 05/01/22 at 2000, Until Discontinu ed, Routine
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 Restricted medication : MYLENE ALLAN topiramate 2022-0 Yes 50mg 50 mg, Unive rs (TOPAMAX) 3-20 Oral, BID, ity of tablet 50 01:00: First dose [place] mg 00 (after Medical last Branch modificati on) on [place] 05/01/22 at 2000, Until Discontinu ed, Routine
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 Restricted medication : AGUSTINA ALLANJAL NaCl 0.9% 2022-0 Yes 1000mL at 42 Unive rs (NS) IV 3-19 mL/hr, IV ity of infusion 15:15: Infusion, [place] 1,000 mL 00 CONTINUOUS Medic al , Starting Branch on Mon05/01/22 at 1015, Until Discontinu ed, Routine NaCl 0.9% 2022- No 1000mL at 42 Univ ers (NS) IV 05-01 03-25 mL/hr, IV ity of infusion 15:15: 21:08 Infusion, [place] 1,000 mL 00 :17 CONTINUOUS Medic al , Starting Branch on Mon05/01/22 at 1015, Until 05/07/22 at 1608, Routine ceFAZolin 2022- No 1000mg 1,000 mg, Univers (ANCEF) 05-0124 Intravenou ity o f 1,000 mg in 04:15: 14:29 s, Q8H [place] as NaCl 0.9% 00 :50 ABX, 42 Medical (NS) 100 mL doses, Branch MINI-BAG First dose on 04/30/22 at 2315, Last dose on 05/14/22 at 1515, Administer over 30 Minutes, 100 mL
Reas on for Anti-Infec tive: Surgical Prophylaxi s
[facility] Prophylaxi s: Neurosurge ry
Dura tion of therapy: within 24 hours of surgery labetaloL 0 2022- No 20mg 20 mg, Unive rs (NORMODYNE) 04-30 Slow IV ity of injection 10:24: 15:30 Push, [place] 20 mg 32 :51 Q4HPRN, Medical Starting Branch on 04/30/22 at 0524, Until Mon05/06/22 at 1030, Routine, SBP >160 hydralAZINE 2022- No 5mg 5 mg, Slow Univers (APRESOLINE 04-30 IV Push, ity of ) injection 10:24: 02:09 Q4HPRN, [place] 5 mg 32 :57 Starting Medical on Sat Branch 04/30/22 at 0524, Until 05/02/22 at 2109, Routine, SBP >160 Sliding 2022-0 [facility]-18 us, TID ity of Insulin - 02:00: MEALS+HS, [place] as Lispro 00 First dose Medical (HumaLOG) + on Mon Branch Fs[facility] 04/29/22 at Testing 2100, Until Discontinu ed, Routine Sliding Yes [place] ers Scale 3-18 us, TID ity of Insulin - 02:00: MEALS+HS, [place] Lispro 00 First dose Medical (HumaLOG) + on Mon Branch Fsbg 04/29/22 at Testing 2100, Until Discontinu ed, Routine glucagon 0 Yes 1mg 1 mg, Univers (GLUCAGEN 04-29 Intramuscu ity of DIAGNOSTIC 22:05: lar, PRN, [place] KIT) 17 Starting Medical injection 1 on Fri Branch mg 04/29/22 at 1705, Until Discontinu ed, LOGAN, Blood Glucose < or = 70 mg/dL and patient is NPO, unable to swallow or has mental changes. dextrose 50 0 Yes 25mL 25 mL, Univ ers % in water 04-29 Slow IV ity of (D50W) 22:05: Push, PRN, [place] injection 17 Starting Medica l 25 mL on Mon Branch 04/29/22 at 1705, Until Discontinu ed, LOGAN, Blood Glucose < or = 70 mg/dL and patient is NPO, unable to swallow or has mental status changes. glucagon Yes 1mg 1 mg, Univers (GLUCAGEN 04-29 Intramuscu ity of DIAGNOSTIC 22:05: lar, PRN, [place] KIT) 17 Starting Medical injection 1 on Mon Branch 04/29/22 at 1705, Until Discontinu ed, LOGAN, Blood Glucose < or = 70 mg/dL and patient is NPO, unable to swallow or has mental changes. dextrose 50 0 Yes 25mL 25 mL, Univ ers % in water 04-29 Slow IV ity of (D50W) 22:05: Push, PRN, [place] injection 17 Starting Medica l 25 mL on Mon Branch 04/29/22 at 1705, Until Discontinu ed, LOGAN, Blood Glucose < or = 70 mg/dL and patient is NPO, unable to swallow or has mental status changes. enoxaparin 2022- No 40mg 40 mg, Univ ers (LOVENOX) 04-2918 Subcutaneo ity of injection 22:00: 18:25 us, DAILY, [place] 40 mg 00 :09 First dose Medical on Mon [place] 04/29/22 at 1700, Until Discontinu ed, Routine acetaZOLAMI 2022- No 500mg 500 mg, U nivers [place] (DIAMOX) 04-2919 Oral, TID, i ty of tablet 500 19:15: 13:43 First dose [place] mg 00 :18 on Mon [facility] 04/29/22 at Branch 1415, Until Discontinu ed, Routine amLODIPine Yes 5mg 5 mg, Univer s (NORVASC) 04-29 Oral, ity of tablet 5 mg 14:00: DAILY, [place] 00 First dose Medical on Mon [place] 04/29/22 at 0900, Until Discontinu ed, Routine lisinopriL 0 Yes 10mg 10 mg, Unive rs (PRINIVIL,Z 3-17 Oral, ity of ESTRIL) 14:00: DAILY, [place] tablet 10 00 First dose Medi charles mg on Mon Branch 04/29/22 at 0900, Until Discontinu ed, Routine amLODIPine 0 Yes 5mg 5 mg, Univer s (NORVASC) 17 Oral, ity of tablet 5 mg 14:00: DAILY, [place] 00 First dose Medical on Mon Branch 04/29/22 at 0900, Until Discontinu ed, Routine lisinopriL Yes 10mg 10 mg, Unive rs (PRINIVIL,Z 3-17 Oral, ity of ESTRIL) 14:00: DAILY, [place] tablet 10 00 First dose Medi charles mg on Mon Branch 04/29/22 at 0900, Until Discontinu ed, Routine topiramate 2022- No 25mg 25 mg, Univ ers (TOPAMAX) 04-29 Oral, BID, ity of tablet 25 13:00: 13:43 First dose [place] mg 00 :18 on Mon Medical 04/29/22 at Branch 0800, Until Discontinu ed, Routine
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 Restricted medication : SHANNAN BRIAN magnesium No 2g 2 g, IV Univ ers sulfate in 04-29 Piggyback, it y of water 2 08:15: 09:02 Administer [place] as gram/50 mL 00 :00 over 60 Medica l (4 %) Minutes, Branch infusion 2 ONCE, 1 g dose, On Mon04/29/22 at 0315, Routine furosemide 2022- No 40mg 40 mg, Univ ers (LASIX) 04-29 Slow IV ity of injection 07:00: 08:00 Push, [place] 40 mg 00 :00 ONCE, 1 Medical dose, On Branch Mon04/29/22 at 0200, Routine acetaZOLAMI 2022- No 500mg 500 mg, U pasquale DE (DIAMOX) 04-29 Slow IV ity of injection 07:00: 19:00 Push, [place] 500 mg 00 :02 Q8HA1, Medical First dose Branch on Mon04/29/22 at 0200, Until Discontinu ed, Routine proCHLORper 2022- No 10mg 10 mg, IV Univers azine 04-29 Piggyback, ity of (COMPAZINE) 06:30: 21:01 at 100 [place] 10 mg in 00 :31 mL/hr Medical NaCl 0.9% Administer Bran ch (NS) over 30 piggyback Minutes, Q8HPRN, Starting on Mon04/29/22 at 0130, Until Mon05/05/22 at 1601, Routine, Nausea and Vomiting (N/V) ketorolac 2022- No 30mg 30 mg, Unive rs (TORADOL) 04-29 Slow IV ity of injection 06:27: 06:26 Push, [place] 30 mg 50 :50 Q8HPRN, Medical Starting Branch on Mon04/29/22 at 0127, Until Mon05/02/22 at 0126, Routine, Pain (scale 7-10) docusate Yes 100mg 100 mg, Unive rs (COLACE) 04-29 Oral, ity of capsule 100 05:37: QDAILYPRN, [place] mg 03 Starting Medical on Mon Branch 04/29/22 at 0037, Until Discontinu ed, Routine, Constipati on docusate Yes 100mg 100 mg, Unive rs (COLACE) 04-29 Oral, ity of capsule 100 05:37: QDAILYPRN, [place] mg 03 Starting Medical on Mon Branch 04/29/22 at 0037, Until Discontinu ed, Routine, Constipati on acetaminoph No 650mg 650 mg, U nivers en 04-29 Oral, ity of (TYLENOL) 05:37: 02:37 Q6HPRN, [place] tablet 650 03 :40 Starting Medic al mg on Mon Branch 04/29/22 at 0037, Until Mon05/02/22 at 2137, Routine, Pain (scale 4-6), Pain (scale 1-3), Temp > 38 C acetaZOLAMI Yes 250mg 250 mg, Un harriet [place] (DIAMOX) 04-29 Oral, TID, it y of tablet 250 01:00: First dose [place] mg 00 on Mon Medical 04/28/22 at Branch 2000, [facility] l[facility]op[facility] 2023-0 Yes 10mg Take 1 Unive rs 10 mg 3-16 tablet by ity of tablet 22:29: mouth [place] 37 daily. Medical [place] Lisinopril 2023-0 Yes [id number] 10mg Take 1 K elsey 10 MG oral 3-08 tablet (10 Sey bold Tablet 00:00: mg total) - 00 by mouth Externa daily l Budesonide- 2022-0 Yes [id number] 2{puff} Inhale 2 Fr[place] Formoterol 3-08 puffs into Sey bold Fumarate 00:00: the lungs - 160-4.5 00 2 times Externa MCG/ACT daily l inhalation Aerosol Albuterol 2023-0 Yes [id number] 2{puff} Q.25D Inhale 2 Franny HFA 108 (90 3-08 puffs into Se [employer]) 00:00: the lungs - MCG/ACT IN 00 every 6 Quarantine Inspector a AERS hours as l needed for wheezing or shortness of breath Lisinopril 2023-0 Yes [id number] 10mg Take 1 K elsey 10 MG oral 3-08 tablet (10 Sey bold Tablet 00:00: mg total) - 00 by mouth Externa daily l Budesonide- 3-0 Yes [id number] 2{puff} Inhale 2 [place] Formoterol 3-08 puffs into Sey bold Fumarate 00:00: the lungs - 160-4.5 00 2 times Externa MCG/ACT daily l inhalation Aerosol Albuterol 2023-0 Yes [id number] 2{puff} Q.25D Inhale 2 Franny HFA 108 (90 3-08 puffs into [employer]) 00:00: the lungs - MCG/ACT IN 00 every 6 Quarantine Inspector a AERS hours as l needed for wheezing or shortness of breath Budesonide- 2023-0 Yes [id number] 2{puff} Inhale 2 [place] Formoterol 3-08 puffs into Sey bold Fumarate 00:00: the lungs - 160-4.5 00 2 times Externa MCG/ACT daily l inhalation Aerosol Albuterol 2023-0 Yes [id number] 2{puff} Q.25D Inhale 2 Franny HFA 108 (90 3-08 puffs into [employer]) 00:00: the lungs - MCG/ACT IN 00 every 6 Quarantine Inspector a AERS hours as l needed for wheezing or shortness of breath Lisinopril 2022- No [id number] 10mg Take 1 Franny 10 MG oral 3-08 04-07 tablet (10 Se ybold Tablet 00:00: 00:00 mg total) - 00 :00 by mouth Externa daily l TAKE 3 No TABLETS BY 1-03 MOUTH ONCE 00:00: DAILY FOR 5 00 DAYS lisinopriL 2021-02 Yes 10mg Take 10 mg U nivers 10 mg 2-05 by mouth ity of tablet 16:55: daily. [place] [address] Medical Branch budesonide- 2021-02 Yes 2{puff} Inhale 2 Univers formoteroL 2-05 Puffs as ity o f (SYMBICORT) 16:55: needed. [place] as 160-4.5 57 Medical mcg/actuati Branch on inhaler lisinopriL 2021-02 Yes 10mg Take 10 mg U nivers 10 mg 2-05 by mouth ity of tablet 16:55: daily. [place] [address] Medical Branch budesonide- 2021-02 Yes 2{puff} Inhale 2 Univers formoteroL 2-05 Puffs as ity o f (SYMBICORT) 16:55: needed. [place] as 160-4.5 57 Medical mcg/actuati Branch on inhaler budesonide- 2021-02 Yes 2{puff} Inhale 2 Univers formoteroL 2-05 Puffs as ity o f (SYMBICORT) 16:55: needed. [place] as 160-4.5 57 Medical mcg/actuati Branch on inhaler acetaZOLAMI 2021-02 Yes [id number] 500mg Take 2 Univers [place] 250 mg 2-05 tablets by ity of tablet 00:00: mouth 3 [place] (three) Medical times Branch daily. melatonin 3 2021-02 Yes [id number] 3mg Take 1 Univers mg tablet 2-05 tablet by ity o f 00:00: mouth at [place] 00 bedtime. Medical Branch acetaZOLAMI 2021-02 Yes [id number] 500mg Take 2 Univers DE 250 mg 2-05 tablets by ity of tablet 00:00: mouth 3 (three) Medical times Branch daily. melatonin 2021-02 Yes [id number] 3mg Take 1 Univers mg tablet 2-05 tablet by ity o f 00:00: mouth at bedtime. Medical Branch acetaZOLAMI 2021-02 Yes [id number] 500mg Take 2 Univers [place] 250 mg 2-05 tablets by ity of tablet 00:00: mouth 3 (three) Medical times Branch daily. melatonin 2021-02 Yes [id number] 3mg Take 1 Univers mg tablet 2-05 tablet by ity o f 00:00: mouth at bedtime. Medical Branch acetaZOLAMI 2021-02 Yes [id number] 500mg Take 2 Univers [place] 250 mg 2-05 tablets by ity of tablet 00:00: mouth 3 (three) Medical times Branch daily. melatonin 2021-02 Yes [id number] 3mg Take 1 Univers mg tablet 2-05 tablet by ity o f 00:00: mouth at [place] bedtime. Medical Branch acetaZOLAMI 2021-02 Yes [id number] 500mg Take 2 Univers [place] 250 mg 2-05 tablets by ity of tablet 00:00: mouth 3 (three) Medical times Branch daily. melatonin 2021-02 Yes [id number] 3mg Take 1 Univers mg tablet 2-05 tablet by ity o f 00:00: mouth at [place] bedtime. Medical Branch acetaZOLAMI 2021-02 Yes [id number] 500mg Take 2 Univers [place] 250 mg 2-05 tablets by ity of tablet 00:00: mouth 3 (three) Medical times Branch daily. melatonin 2021-02 Yes [id number] 3mg Take 1 Univers mg tablet 2-05 tablet by ity o f 00:00: mouth at [place] bedtime. Medical Branch topiramate 2021-02 Yes [id number] 25mg Take 1 U nivers 25 mg 2-05 tablet by ity of tablet 00:00: mouth 2 (two) Medical times Branch daily. acetaZOLAMI 2021-02 Yes [id number] 500mg Take 2 Univers [place] 250 mg 2-05 tablets by ity of tablet 00:00: mouth 3 (three) Medical times Branch daily. melatonin 2021-02 Yes [id number] 3mg Take 1 Univers mg tablet 2-05 tablet by ity o f 00:00: mouth at [place] 00 bedtime. Medical Branch topiramate 2021-02 Yes [id number] 25mg Take 1 U nivers 25 mg 2-05 tablet by ity of tablet 00:00: mouth 2 (two) Medical times Branch daily. acetaZOLAMI 2021-02 Yes [id number] 500mg Take 2 Univers [place] 250 mg 2-05 tablets by ity of tablet 00:00: mouth 3 (three) Medical times Branch daily. melatonin 2021-02 Yes [id number] 3mg Take 1 Univers mg tablet 2-05 tablet by ity o f 00:00: mouth at [place] 00 bedtime. Medical Branch topiramate 2021-02 Yes [id number] 25mg Take 1 U nivers 25 mg 2-05 tablet by ity of tablet 00:00: mouth 2 (two) Medical times Branch daily. acetaZOLAMI 2021-02 Yes [id number] 500mg Take 2 Univers [place] 250 mg 2-05 tablets by ity of tablet 00:00: mouth 3 (three) Medical times Branch daily. melatonin 2021-02 Yes [id number] 3mg Take 1 Univers mg tablet 2-05 tablet by ity o f 00:00: mouth at [place] bedtime. Medical Branch acetaZOLAMI 2021-02 Yes [id number] 500mg Take 2 Univers [place] 250 mg 2-05 tablets by ity of tablet 00:00: mouth 3 (three) Medical times Branch daily. melatonin 2021-02 Yes [id number] 3mg Take 1 Univers mg tablet 2-05 tablet by ity o f 00:00: mouth at [place] bedtime. Medical Branch acetaZOLAMI 2021-02 Yes [id number] 500mg Take 2 Univers [place] 250 mg 2-05 tablets by ity of tablet 00:00: mouth 3 (three) Medical times Branch daily. melatonin 2021-02 Yes [id number] 3mg Take 1 Univers mg tablet 2-05 tablet by ity o f 00:00: mouth at [place] 00 bedtime. Medical Branch topiramate 2021-02- No [id number] 25mg Take 1 Univers 25 mg 2-05 03-25 tablet by ity of tablet 00:00: 00:00 mouth 2 [place] 00 :00 (two) Medical times Branch daily. topiramate 2021-02- No [id number] 25mg Take 1 Univers 25 mg 2-05 03-25 tablet by ity of tablet 00:00: 00:00 mouth 2 [place] 00 :00 (two) Medical times [place] daily. acetaZOLAMI 2021-02 2{tbl} Take 2 K elsey DE (DIAMOX) 03-20 tablets by S eybold 250 MG oral 00:00: 00:00 mouth 3 - Tablet 00 :00 times Externa daily l [facility] 2021-02 No 1{tbl} Take 1 Franny Melatonin 3 03-20 tablet by Se ybold MG oral 00:00: 00:00 mouth at - Tablet 00 :00 bedtime Externa l Topiramate 2021-02 No 25mg Take 25 mg Franny 25 MG oral 03-20 by mouth 2 Se ybold Tablet 00:00: 00:00 times - 00 :00 daily Externa l melatonin 2021-02 Yes 3mg 3 mg, Univers (MELATIN) 2- Oral, QHS, ity of tablet 3 mg 03:00: First dose [place] 00 on [facility] 01/15/22 at Branch 2100, Until Discontinu ed, Routine hydrOXYzine 2021-02 No 25mg 25 mg, Uni vers (ATARAX) 03-19- Oral, ity of tablet 25 00:00: 00:44 ONCE, 1 [place] mg 00 :00 dose, On Medical [facility] 01/15/22 at 1800, Routine NaCl 0.9% 2021-02 500mL at 150 Univ ers (NS) IV 03-18- mL/hr, IV ity of infusion 20:00: 23:00 Infusion, [place] as 500 mL 00 :00 ONCE, 1 Medical dose, On Branch [facility] 01/15/22 at 1400, Routine topiramate 2021-02 Yes 25mg 25 mg, Unive rs (TOPAMAX) 2- Oral, BID, ity of tablet 25 19:30: First dose [place] mg 00 on [facility] 01/15/22 at Branch 1330, Until Discontinu ed, Routine
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 Restricted medication : JONES PHIPPS traMADoL 2021-02 Yes 50mg 50 mg, Univers (ULTRAM) 2-03 Oral, ity of tablet 50 16:09: Q6HPRN, [place] mg 31 Starting Medical on Sat Branch 01/15/22 at 1009, Until Discontinu ed, Routine, Pain (scale 7-10) iopamidol 2021-02- No [id number] 80mL 80 mL, Univers (ISOVUE 03-18 Intravenou ity o f 370-500 mL) 03:15: 03:30 s, ONCE, 1 [place] injection 00 :00 dose, On Medica l 80 mL Fri Branch 01/14/22 at 2130, Routine sodium 2021-02 Yes Slow IV Univers bicarbonate 2 Push, PRN, it y of 8.4 % (1 18:22: Starting [place] mEq/mL) 21 on Fri Medical injection 01/14/22 at [facility] 1222, Until Discontinu ed, Routine lidocaine 2021-02 Yes PRN, Univers 1% (PF) 02 Starting ity of (XYLOCAINE) 18:21: on Fri [place] injection 43 01/14/22 at Medi charles 1221, Branch Until Discontinu ed, Routine lisinopriL 2021-02 Yes 10mg 10 mg, Unive rs (PRINIVIL,Z 2 Oral, ity of ESTRIL) 16:30: DAILY, [place] tablet 10 00 First dose [facility] charles mg on [facility] Branch 01/13/22 at 1030, Until Discontinu ed, Routine traMADoL 2021-02- No 50mg 50 mg, Univer s (ULTRAM) 03-16 Oral, ity of tablet 50 11:48: 11:47 Q8HPRN, [place] mg 15 :15 Starting Medical on [facility] Branch 01/13/22 at 0548, Until 01/15/22 at 0547, Routine, Pain (scale 4-6) lisinopriL 2021-02 Yes 10mg Take 10 mg U nivers 10 mg 1-30 by mouth ity of tablet 21:44: daily. [address] budesonide- 2021-02 Yes 2{puff} Inhale 2 Univers formoteroL 1-30 Puffs as ity o f (SYMBICORT) 21:44: needed. Kike as 160-4.[address] [place] [address]/actuati Branch on inhaler acetaZOLAMI 2021-02 Yes 500mg 500 mg, Un harriet DE (DIAMOX) 03-14 Oral, BID, it y of tablet 500 20:30: First dose [place] mg 00 on Mon01/12/22 Branch at 1430, Until Discontinu ed, Routine docusate 2021-02 Yes 100mg 100 [facility], [facility] 03-13 Oral, ity of capsule 100 15:00: DAILY, [place] mg 00 First dose Medical on Mon01/11/22 at 0900, Until Discontinu ed, Routine enoxaparin 2021-02 Yes 40mg 40 mg, [facility] (LOVENOX) 03-13 Subcutaneo ity of injection 15:00: [place], DAILY, [place] 40 mg 00 First dose Medical on Mon01/11/22 at 0900, Until Discontinu ed, Routine predniSONE 2021-02- No 10mg 10 mg, [facility] ers (DELTASONE) 03-13 Oral, BID, i ty of tablet 10 15:00: 03:22 6 doses, [place] as mg 00 :00 First dose Medical on Mon01/11/22 at 0900, Last dose on Mon01/13/22 at 2000, Routine budesonide- 2021-02- No 2{puff} 2 Puff, [facility] formoteroL 03-13 Inhalation it y of (SYMBICORT) 14:00: 13:59 , BID, 5 [place] 160-4.5 00 :00 doses, Medical mcg/actuati First dose Br anch on inhaler on Mon 2 Puff 01/11/22 at 0800, Last dose on Mon01/13/22 at 0800, Routine butalbital- 2021-02- No 1{tbl} 1 tablet, [facility] acetaminoph 03-13 Oral, ity of en-caff 13:53: 16:09 [facility] [place] (ESGIC) 37 :42 Starting Medical 50-325-40 on Mon mg tablet 1 01/11/22 tablet at 0753, Until 01/15/22 at 1009, Routine, [place] ipratropium 2021-02- No 3mL 3 mL, [facility] ers -albuteroL 03-1304 Inhalation it y of (DUONEB) 12:00: 11:59 , Q6H, 20 [place] as 0.5 mg-3 00 :00 doses, Medical mg(2.5 mg First dose Bran ch base)/3 mL on [facility] nebulizer 01/11/22 solution 3 at 0600, mL Last dose on 01/16/22 at 0000, Routine ondansetron 2021-02 Yes 4mg 4 mg, Slow Univers (ZOFRAN 03-13 IV Push, ity of (PF)) 09:08: Q6HPRN, [place] injection 4 23 Starting Medi charles mg on Mon Branch 01/11/22 at 0308, [...] 03-13 Oral, ity of (TYLENOL) 09:07: Q6HPRN, [place] tablet 650 58 Starting Medic al mg on Mon01/11/22 at 0307, Until Discontinu ed, Routine, Pain [...] Mon01/10/22 at 2215, STAT iopamidol 2021-02- No [id number] 100mL 100 mL, Univers (ISOVUE 03-13 Intravenou ity o f 370-500 mL) 04:15: 04:15 s, ONCE, 1 [place] injection 00 :00 dose, On Medica l 100 mL [facility] 01/10/22 at 2215, Routine acetaminoph 2021-02 No 975mg 975 mg, U nivers en 03-13 Oral, ity of (TYLENOL) 02:30: 01:28 [place]CE[place] 975 [place] :00 dose, On Medic al mg [facility] 01/10/22 at 2030, LOGAN metoclopram 2021-02- No 10mg 10 mg, Uni vers young HCl 03-13 Slow IV ity of (REGLAN) 01:30: 01:28 Push, [place] injection 00 :00 ONCE, 1 Medical 10 mg dose, On [facility] 01/10/22 at 1930, LOGAN hydroCHLORO 2021- No [id number] 25mg Take 1 [facility] thiazide 25 8-20 09-20 tablet by it y of mg tablet 00:00: 04:59 mouth [place] 00 :00 daily for Medical 30 days. Branch lisinopriL 2021- No [id number] 40mg Take 1 [facility] 40 mg 8-20 09-20 tablet by ity of tablet 00:00: 04:59 mouth [place] 00 :00 daily for Medical 30 days. Branch loratadine 2021- No [id number] 10mg Take 1 [facility] 10 mg 8-20 09-20 tablet by ity of tablet 00:00: 04:59 mouth [place] 00 :00 daily for Medical 30 days. Branch montelukast 2021- No [id number] 10mg Take 1 [facility] 10 mg 8-20 09-20 tablet by ity of tablet 00:00: 04:59 mouth [place] 00 :00 daily for Medical 30 days. Branch predniSONE 2021- No [id number] 40mg Take 2 [facility] 20 mg 8-20 08-26 tablets by ity of tablet 00:00: 04:59 mouth [place] 00 :00 daily for Medical 5 days. Branch sulfur 2021- No [id number] 5mL 5 mL, Univ ers hexafluorid 10-01 Intravenou i ty of e microsphr 16:15: 16:15 s, ONCE, 1 [place] (LUMASON) 00 :00 dose, On Medica l injection 5 Mon Branch mL 10/01/21 at 1115, Routine
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 [place] 48 :00 Medical Branch loratadine 2021-0 2021- No 10mg Take 10 mg [facility] 10 mg 10-01 by mouth ity of tablet 14:41: 00:00 daily. [place] 48 :00 Medical Branch hydroCHLORO 2021-0 2021- [...] Medical times Branch daily with meals. montelukast 0 Yes 10mg 10 mg, Univ ers (SINGULAIR) [...] Medical (HumaLOG) + on Mon Branch Fsbg 09/30/21 at Testing 2100, Until Discontinu ed, Routine traMADoL 2021-0 Yes 50mg 50 mg, Univers (ULTRAM) 10-01 Oral, ity of tablet 50 01:32: Q6HPRN, [place] mg 26 Starting Medical on Mon Branch 09/30/21 at 2031, Until Discontinu ed, Routine, Pain (scale 7-10) acetaminoph 0 Yes 650mg 650 mg, Un harriet en 10-01 Oral, ity of (TYLENOL) 01:32: Q6HPRN, [place] tablet 650 02 Starting Medic al mg on [place] Branch 09/30/21 at 2031, Until Discontinu ed, Routine, Pain (scale 4-6) glucagon 2021-0 Yes 1mg 1 mg, Univers (GLUCAGEN 10-01 Intramuscu ity of DIAGNOSTIC 01:23: lar, PRN, [place] KIT) 10 Starting Medical injection 1 on [place] [facility] mg 09/30/21 at 2023, Until Discontinu ed, LOGAN, Blood Glucose < [...] swallow or has mental status changes. diphenhydrA 2021-0 Yes 25mg 25 mg, Univ ers MINE - Oral, ity of (BENADRYL) 01:10: Q6HPRN, [place] tablet 25 16 Starting Medica l mg on [place] [facility] 09/30/21 at 2009, Until Discontinu ed, Routine, Itching, Mild Rash ipratropium 2021-0 Yes 3mL 3 mL, Unive rs -albuteroL 10-01 Inhalation ity of (DUONEB) 01:00: , Q4H, [place] 0.5 mg-3 00 First dose Medic al mg(2.5 mg on [facility] Branch base)/3 mL 09/30/21 at nebulizer 1999, solution 3 Until mL Discontinu ed, Routine diphenhydrA 2021-0 Yes [id number] 25mg Take 1 [facility] MINE 25 mg 8-19 tablet by ity of tablet 00:00: mouth [place] 00 every 6 Medical (six) Branch hours as needed for Itching or Allergies. diphenhydrA 2021-0 Yes [id number] 25mg Take 1 [facility] MINE 25 mg 8-19 tablet by ity of tablet 00:00: mouth [place] 00 every 6 Medical (six) Branch hours as needed for Itching or Allergies. diphenhydrA 2021-0 Yes [id number] 25mg Take 1 [facility] MINE 25 mg 8-19 tablet by ity of tablet 00:00: mouth [place] 00 every 6 Medical (six) Branch hours as needed for Itching or Allergies. diphenhydrA 2021-0 Yes [id number] 25mg Take 1 [facility] MINE 25 mg 8-19 tablet by ity of tablet 00:00: mouth [place] 00 every 6 Medical (six) Branch hours as needed for Itching or Allergies. diphenhydrA 2021-0 Yes [id number] 25mg Take 1 [facility] MINE 25 mg 8-19 tablet by ity of tablet 00:00: mouth [place] 00 every 6 Medical (six) Branch hours as needed for Itching or Allergies. diphenhydrA 2021-0 Yes [id number] 25mg Take 1 [facility] MINE 25 mg 8-19 tablet by ity of tablet 00:00: mouth [place] 00 every 6 Medical (six) Branch hours as needed for Itching or Allergies. Budesonide 2021-0 Yes [id number] 2{puff} Inhale 2 [facility] 180 8-19 Puffs 2 ity of mcg/actuati 00:00: (two) [place] on aerosol 00 times Medical powder daily. Branch diphenhydrA 0 Yes [id number] 25mg Take 1 [facility] MINE 25 mg 8-19 tablet by ity of tablet 00:00: mouth [place] 00 every 6 Medical (six) Branch hours as needed for Itching or Allergies. Budesonide 0 Yes [id number] 2{puff} Inhale 2 Univers 180 8-19 Puffs 2 ity of mcg/actuati 00:00: (two) [place] on aerosol 00 times Medical powder daily. Branch diphenhydrA 2021-0 Yes [id number] 25mg Take 1 [facility] MINE 25 mg 8-19 tablet by ity of tablet 00:00: mouth [place] 00 every 6 Medical (six) Branch hours as needed for Itching or Allergies. diphenhydrA 2021-0 Yes [id number] 25mg Take 1 [facility] MINE 25 mg 8-19 tablet by ity of tablet 00:00: mouth [place] 00 every 6 Medical (six) Branch hours as needed for Itching or Allergies. diphenhydrA 2021-0 Yes [id number] 25mg Take 1 [facility] MINE 25 mg 8-19 tablet by ity of tablet 00:00: mouth [place] 00 every 6 Medical (six) Branch hours as needed for Itching or Allergies. diphenhydrA 2021-0 Yes [id number] 25mg Take 1 [facility] MINE 25 mg 8-19 tablet by ity of tablet 00:00: mouth [place] 00 every 6 Medical (six) Branch hours as needed for Itching or Allergies. diphenhydrA 2021-0 Yes [id number] 25mg Take 1 [facility] MINE 25 mg 8-19 tablet by ity of tablet 00:00: mouth [place] 00 every 6 Medical (six) Branch hours as needed for Itching or Allergies. metFORMIN 2021-0 2021- No [id number] 500mg Take 1 Univers 500 mg 8-19 09-19 tablet by ity of tablet 00:00: 04:59 mouth 2 [place] 00 :00 (two) Medical times Branch daily with meals for 30 days. ipratropium 2021-0 2021- No 3mL 3 mL, Univ ers -albuteroL 09-30 Inhalation it y of (DUONEB) 23:30: 22:37 , ONCE, 1 [place] 0.5 mg-3 00 :00 dose, On Medical mg(2.5 mg [facility] Branch base)/3 mL 09/30/21 at nebulizer 1830, solution 3 Routine mL albuterol 0 Yes 2.5mg 2.5 mg, Univ ers (PROVENTIL) 09-30 Inhalation it y of 2.5 mg /3 23:25: , Q2HPRN, [place] mL (0.083 56 Starting Medica l %) on [facility] nebulizer 09/30/21 at solution 1825, 2.5 mg Until Discontinu ed, Routine, Shortness of Breath, Wheezing budesonide 0 Yes .5mg 0.5 mg, Univ ers (PULMICORT 09-30 Inhalation ity of RESPULE) 23:15: , DAILY, [place] nebulizer 00 First dose Medi charles solution on [facility] 0.5 mg 09/30/21 at 1815, Until Discontinu ed, Routine acetaminoph 0 Yes 650mg 650 mg, Un harriet en 09-30 Oral, ity of (TYLENOL) 23:04: Q6HPRN, [place] tablet 650 08 Starting Medic al mg on [facility] Branch 09/30/21 at 1804, Until Discontinu ed, Routine, Pain (scale 1-3) ipratropium 2021-0 2021- No 3mL 3 mL, Univ ers -albuteroL 09-30 Inhalation it y of (DUONEB) 22:45: 21:34 , ONCE, 1 [place] 0.5 mg-3 00 :00 dose, On Medical mg(2.5 mg [facility] Branch base)/3 mL 09/30/21 at nebulizer 1745, solution 3 Routine mL magnesium 2021-2021- No 1g 1 g, IV Univ ers sulfate in 09-30 Piggyback, it y of D5W 1 22:00: 22:22 ONCE, 1 [place] gram/100 mL 00 :00 dose, On [facility] RTU IV [place] Branch Piggyback 1 09/30/21 at g 1700, Administer over 60 Minutes, 100 mL ipratropium 2021-0 2021- No 3mL 3 mL, Univ ers -albuteroL 09-30 Inhalation it y of (DUONEB) 21:45: 20:58 , ONCE, 1 [place] 0.5 mg-3 00 :00 dose, On Medical mg(2.5 mg [place] Branch base)/3 mL 09/30/21 at nebulizer 1645, solution 3 Routine mL methylPREDN 2021-2021- No 125mg 125 mg, U nivers ISolone sod 09-30 Intravenou i ty of succ 21:00: 21:00 s, ONCE, 1 [place] (SOLU-MEDRO 00 :00 dose, On [facility] L (PF)) [place] Branch injection 09/30/21 at 125 mg 1600, LOGAN Dose 2021-0 No Unknown 8-11 00:00: 00 Dose 2021-0 No Unknown 8-11 00:00: 00 Dose 2021-0 No Unknown 8-11 00:00: 00 Dose 2021-0 No Unknown 8-11 00:00: 00 albuterol 2021-0 2021- No 7.5mg 7.5 mg, Uni vers (PROVENTIL) 09-09 Inhalation i ty of 2.5 mg /3 05:15: 04:28 , ONCE, 1 [place] mL (0.083 00 :00 dose, On Medica l %) [place] [facility] nebulizer 09/09/21 at solution 0015, STAT 7.5 mg albuterol 2021-0 2- No 7.5mg 7.5 mg, Uni vers (PROVENTIL) 09-09 Inhalation i ty of 2.5 mg /3 03:45: 03:07 , ONCE, 1 [place] mL (0.083 00 :00 dose, On Medica l %) [facility] Branch nebulizer 09/08/21 at solution 2245, STAT 7.5 mg ipratropium 2-0 2- No 3mL 3 mL, Univ ers -albuteroL [...] Discontinu ed, Routine, IV line flushing predniSONE Yes [id number] Take 1 [facility] 20 mg 7-28 tablet by ity of tablet 00:00: mouth [place] 00 daily Medical until gone Branch albuterol Yes [id number] 2{puff} Inhale 2 Univers 90 7-28 Puffs ity of mcg/actuati 00:00: every 4 [place] on inhaler 00 (four) Medical hours as Branch needed for Wheezing or Shortness of Breath. predniSONE 2021- No [id number] Take 1 [facility] 20 mg 7-28 08-19 tablet by ity of tablet 00:00: 00:00 mouth [place] 00 :00 daily Medical until gone Branch albuterol 2021- No [id number] 2{puff} Inhale 2 Univers 90 -28 08-19 Puffs ity of mcg/actuati 00:00: 00:00 every 4 [place] on inhaler 00 :00 (four) Medical hours as Branch needed for Wheezing or Shortness of Breath. Dose 0 No Unknown 08-19 00:00: 00 Dose 2021-0 [...] No Unknown 7-06 00:00: 00 TAKE 1 2-0 No 500 TABLET 7-06 TWICE DAILY 00:00: WITH FOOD. 00 Dose 2022-0 No Unknown 7-06 00:00: 00 Dose 2022-0 No Unknown 7-06 00:00: 00 TAKE 1 2-0 No 500 TABLET 7-06 TWICE DAILY 00:00: WITH FOOD. 00 Dose 2-0 No Unknown 7-06 00:00: 00 Dose 2022-0 No Unknown 7-06 00:00: 00 TAKE 1 2-0 No 500 TABLET 7-06 TWICE DAILY 00:00: WITH FOOD. 00 Dose 2-0 No Unknown 7-06 00:00: 00 Dose 2022-0 No Unknown 7-06 00:00: 00 Dose 2022-0 No Unknown 7-06 00:00: 00 TAKE 1 2-0 No 500 TABLET 7-06 TWICE DAILY 00:00: WITH FOOD. 00 Dose 2-0 No Unknown 7-06 00:00: 00 TAKE 1 2-0 No 500 [...] 2022-0 No Unknown 6-18 00:00: 00 Dose 2-0 No Unknown 6-18 00:00: 00 Symbicort 2-0 No 2mcg/ac 160 mcg-4.5 5-09 tuation mcg/actuati 00:00: on HFA 00 aerosol inhaler ProAir HFA 2-0 No 12mcg/a 90 5-09 ctuatio mcg/actuati 00:00: n on aerosol 00 inhaler loratadine 2-0 No 1mg 10 mg 5-09 tablet 00:00: 00 amlodipine 2022-0 No 1mg 10 mg 5-09 tablet 00:00: 00 hydrochloro 2022-0 No 1mg [...] 2-0 No Unknown 5-09 00:00: 00 loratadine 2022-0 No 1mg 10 mg 5-09 tablet 00:00: 00 hydrochloro 2022-0 No 1mg [...] 00:00: RINSE MOUTH 00 AFTER USE. Dose 2021-0 No Unknown 5-09 00:00: 00 loratadine 2022-0 No 1mg 10 mg 5-09 tablet 00:00: 00 hydrochloro 2-0 No 1mg thiazide 25 5-09 mg tablet 00:00: 00 lisinopril 2022-0 No 1mg 40 mg 5-09 tablet 00:00: 00 Dose 2022-0 No Unknown 5-09 00:00: 00 Dose 2022-0 No Unknown 5-09 00:00: 00 Budesonide- 2-0 2023- No [place] Formoterol 5-09 03-08 [place] Fumarate 00:00: 00:00 - 160-4.5 00 :00 Externa MCG/ACT l inhalation Aerosol Dose 2021-0 No Unknown 5-07 00:00: 00 Dose 2022-0 [...] 2022-0 No Unknown 2-01 00:00: 00 Symbicort 2-0 No 2mcg/ac 160 [...] 20 mg 2-01 tablet 00:00: 00 Symbicort 2-0 No 2mcg/ac 160 [...] 2022-0 No Unknown 2-01 00:00: 00 indomethaci 2022-0 No 1mg n 50 mg 2-01 capsule 00:00: 00 Dose 2022-0 No Unknown 2-01 00:00: 00 indomethaci 2022-0 [...] tablet 00:00: 00 Dose 2022-0 No Unknown 2- 00:00: 00 Dose 2-0 No Unknown 2- 00:00: 00 Dose 2-0 No Unknown 2- 00:00: 00 methotrexat 2-0 No 6mg e sodium 2-01 2.5 mg 00:00: tablet 00 prednisone 2-0 No mg 20 mg 2-01 tablet 00:00: 00 Dose 2-0 No Unknown 2- 00:00: 00 Dose 2022-0 No Unknown 2- 00:00: 00 indomethaci 2022-0 No 1mg n 50 mg 2-01 capsule 00:00: 00 Dose 2-0 No Unknown 2- 00:00: 00 Symbicort 2020-1 No 2mcg/ac 160 [...] on HFA 00 aerosol inhaler ProAir HFA 2020-02 No 1mcg/ac 90 0-18 tuation mcg/actuati 00:00: [...] 00:00: on HFA 00 aerosol inhaler Symbicort 2021-0 No 2mcg/ac 160 mcg-4.5 8-30 tuation mcg/actuati [...] Dose 2021-0 No Unknown 8- 00:00: 00 Advair HFA 2021-0 No 1mcg/ac [...] Advair HFA 2020-0 No 1mcg/ac 230 mcg-21 7 tuation mcg/actuati 00:00: on aerosol 00 inhaler [...] Advair HFA 2020-0 No 1mcg/ac 230 mcg-21 - tuation mcg/actuati 00:00: on aerosol 00 inhaler [...] solution for nebulizatio n methylPREDN 2020-0 Yes [id number] Take by [facility] ISolone 4 6-15 mouth ity of mg tablets 00:00: [place]-INSTRU [place] 00 CTIONS. Medical follow Branch package directions methylPREDN 2020-0 Yes [id number] Take by Univers ISolone 4 6-15 mouth ity of mg tablets 00:00: SEE-INSTRU [place] 00 CTIONS. Medical follow Branch package directions methylPREDN 2020-0 Yes [id number] Take by Univers ISolone 4 6-15 mouth ity of mg tablets 00:00: SEE-INSTRU [place] 00 CTIONS. Medical follow Branch package directions methylPREDN 1-0 2022- No [id number] Take by [facility] ISolone 4 6-15 08-19 mouth ity of mg tablets 00:00: 00:00 SEE-INSTRU [place] 00 :00 CTIONS. Medical follow [place] package directions methylPREDN 2020-0 Yes 40mg 40 mg, Univ ers ISolone sod 14 Intravenou it y of succ 19:00: s, Q8H, [place] (SOLU-MEDRO 00 First dose Me dical L (PF)) on [facility] injection 07/27/20 at 40 mg 1400, Until Discontinu ed, Routine iopamidol 2020-0 2021- No [id number] 100mL 100 mL, Univers (ISOVUE 07-27-14 Intravenou ity o f 370-500 mL) 16:30: 15:12 s, ONCE, 1 [place] injection 00 :00 dose, [facility] Medic al 100 mL 07/27/20 at Branch 1130, Routine lisinopriL 0 Yes 40mg 40 mg, Unive rs (PRINIVIL,Z - Oral, ity of ESTRIL) 14:00: DAILY, [place] tablet 40 00 First dose Medi charles mg on [facility] 07/27/20 at 0900, Until Discontinu ed hydroCHLORO 2020-0 Yes 12.5mg 12.5 mg, [facility] thiazide 07-27 Oral, ity of (ESIDRIX) 14:00: DAILY, [place] capsule 00 First dose Medica l 12.5 mg on [facility] 07/27/20 at 0900, Until Discontinu ed, Routine ipratropium 0 Yes 3mL 3 mL, Unive rs -albuteroL 14 Inhalation ity of (DUONEB) 13:00: , QID, [place] 0.5 mg-3 00 First dose Medic al mg(2.5 mg on [facility] base)/3 mL 07/27/20 at nebulizer 0800, solution 3 Until mL Discontinu ed, Routine enoxaparin 2020-0 Yes 40mg 40 mg, Unive rs (LOVENOX) 6-14 Subcutaneo ity of injection 13:00: us, Q12H, [place] 40 mg 00 First dose Medical on [facility] 07/27/20 at 0800, Until Discontinu ed, Routine docusate 2020-0 Yes 100mg 100 mg, Unive rs (COLACE) 6-14 Oral, ity of capsule 100 10:20: QDAILYPRN, [place] mg 17 Starting Medical [facility] 07/27/20 at 0520, Until Discontinu ed, Routine, Constipati on HYDROcodone 2020- No 1{tbl} 1 tablet, Univers -acetaminop 07-27 Oral, ity of hen (NORCO 10:20: 10:19 Q6HPRN, [place] 5) 5-325 mg 07 :07 Starting Medi charles tablet 1 [facility] tablet 07/27/20 at 0520, Until 07/29/20 at 0519, Routine, Pain (scale 4-6) acetaminoph Yes 650mg 650 mg, Un harriet en 07-27 Oral, ity of (TYLENOL) 10:19: Q6HPRN, [place] tablet 650 59 Starting Medic al mg [facility] 07/27/20 at 0519, Until Discontinu ed, Routine, Pain (scale 1-3), Temp > 38.5 C albuterol 2020- No 5mg 5 mg, Univer s (PROVENTIL) 07-27 Inhalation i ty of 2.5 mg /3 08:30: 08:41 , ONCE, 1 [place] mL (0.083 00 :00 dose, Mon Medic al %) 07/27/20 at [place] nebulizer 0330, STAT solution 5 mg albuterol 2020- No 5mg 5 mg, Univer s (PROVENTIL) 07-27 Inhalation i ty of 2.5 mg /3 07:15: 07:13 , ONCE, 1 [place] mL (0.083 00 :00 dose, Mon Medic al %) 07/27/20 at [place] nebulizer 0215, STAT solution 5 mg magnesium 2020- No 2g 2 g, IV Univ ers sulfate in 07-27 Piggyback, it y of water 2 07:15: 07:15 ONCE, 1 [place] gram/50 mL 00 :00 dose, Mon Medi charles (4 %) 07/27/20 at [place] infusion 2 0215, g Routine methylpredn 2020- No 125mg 125 mg, IV Univers isolone sod 07-27 Piggyback, i ty of succ 07:15: 06:08 ONCE, 1 [place] (SOLU-MEDRO 00 :00 dose, Mon Med ical L) 07/27/20 at [place] injection 0215, STAT 125 mg ipratropium No .5mg 0.5 mg, Un harriet (ATROVENT) 07-27 Inhalation it y of 0.02 % 06:15: 06:06 , ONCE, 1 [place] nebulizer 00 :00 dose, Mon Medic al solution 07/27/20 at [facility] h 0.5 mg 0115, LOGAN albuterol No 7.5mg 7.5 mg, Uni vers (PROVENTIL) 07-27 Inhalation i ty of 2.5 mg /3 06:15: 06:06 , ONCE, 1 [place] mL (0.083 00 :00 dose, Mon Medic al %) 07/27/20 at [place] nebulizer 0115, STAT solution 7.5 mg predniSONE 2020- No [id number] 40mg Take 2 Univers 20 mg 07-15 tablets by ity of tablet 00:00: 04:59 mouth [place] 00 :00 daily for Medical 4 days. [place] levoFLOXaci Yes 750mg 750 mg, Un harriet n 07-14 Oral, Q24H ity of (LEVAQUIN) 16:45: ABX, First [place] tablet 750 00 dose on Medica l mg 07/14/20 [place] at 1145, Until Discontinu ed, LOGAN
Re ason for Anti-Infec tive: Documented Infection< br>Documen romero Infection Site: Respirator y
Durat ion of Therapy: 7 days predniSONE No 20mg Take 20 mg Univers 20 mg 07-14 by mouth ity of tablet 15:41: 00:00 daily. [place] 01 :00 [facility] Branch albuterol 2020- No Inhale. [facility] ers sulfate 07-14 ity of (PROAIR 15:35: 00:00 [place] DIGIHALER) 54 :00 Medical Branch mcg/actuati on aebs azithromyci 2020- No 1{packe Take 1 Univers n 07-14 t} Packet by ity of (ZITHROMAX) 15:35: 00:00 mouth once [place] 1 gram 54 :00 now. Medical powder Branch azithromyci 2020- No 500mg Take 500 Univers n 07-14- mg by ity of (ZITHROMAX) 15:35: 00:00 [...] at Testing 2100, Until Discontinu ed, Routine albuterol Yes [id number] 2{puff} Inhale 2 Univers 90 6-01 Puffs ity of mcg/actuati 00:00: every 4 [place] on inhaler 00 (four) Medical hours as Branch needed for Wheezing or Shortness of Breath. albuterol Yes [id number] 2{puff} Inhale 2 Univers 90 6-01 Puffs ity of mcg/actuati 00:00: every 4 [place] on inhaler 00 (four) Medical hours as Branch needed for Wheezing or Shortness of Breath. albuterol Yes [id number] 2{puff} Inhale 2 Univers 90 6-01 Puffs ity of mcg/actuati 00:00: every 4 [place] on inhaler 00 (four) Medical hours as Branch needed for Wheezing or Shortness of Breath. albuterol Yes [id number] 2{puff} Inhale 2 Univers 90 6-01 Puffs ity of mcg/actuati 00:00: every 4 [place] on inhaler 00 (four) Medical hours as Branch needed for Wheezing or Shortness of Breath. albuterol Yes [id number] 2{puff} Inhale 2 Univers 90 6-01 Puffs ity of mcg/actuati 00:00: every 4 [place] on inhaler 00 (four) Medical hours as Branch needed for Wheezing or Shortness of Breath. albuterol 2020-0 Yes [id number] 2{puff} Inhale 2 Univers 90 6-01 Puffs ity of mcg/actuati 00:00: every 4 [place] on inhaler 00 (four) Medical hours as Branch needed for Wheezing or Shortness of Breath. levoFLOXaci 2020-0 Yes [id number] 750mg Take 1 Univers n 750 mg 6-01 tablet by ity of tablet 00:00: mouth [place] 00 every 24 Medical (twenty-fo Branch ur) hours. albuterol 2020-0 Yes [id number] 2{puff} Inhale 2 Univers 90 6-01 Puffs ity of mcg/actuati 00:00: every 4 [place] on inhaler 00 (four) Medical hours as Branch needed for Wheezing or Shortness of Breath. levoFLOXaci 2020-0 Yes [id number] 750mg Take 1 Univers n 750 mg 6-01 tablet by ity of tablet 00:00: mouth [place] 00 every 24 Medical (twenty-fo Branch ur) hours. albuterol 2020-0 Yes [id number] 2{puff} Inhale 2 Univers 90 6-01 Puffs ity of mcg/actuati 00:00: every 4 [place] on inhaler 00 (four) Medical hours as Branch needed for Wheezing or Shortness of Breath. levoFLOXaci 2020-0 Yes [id number] 750mg Take 1 Univers n 750 mg 6-01 tablet by ity of tablet 00:00: mouth [place] 00 every 24 Medical (twenty-fo Branch ur) hours. albuterol 2020-0 Yes [id number] 2{puff} Inhale 2 Univers 90 6-01 Puffs ity of mcg/actuati 00:00: every 4 [place] on inhaler 00 (four) Medical hours as Branch needed for Wheezing or Shortness of Breath. levoFLOXaci 2020-0 Yes [id number] 750mg Take 1 Univers n 750 mg 6-01 tablet by ity of tablet 00:00: mouth [place] 00 every 24 Medical (twenty-fo Branch ur) hours. albuterol 2020-0 Yes [id number] 2{puff} Inhale 2 Univers 90 6-01 Puffs ity of mcg/actuati 00:00: every 4 [place] on inhaler 00 (four) Medical hours as Branch needed for Wheezing or Shortness of Breath. albuterol Yes [id number] 2{puff} Inhale 2 Univers 90 6-01 Puffs ity of mcg/actuati 00:00: every 4 [place] on inhaler 00 (four) Medical hours as Branch needed for Wheezing or Shortness of Breath. albuterol Yes [id number] 2{puff} Inhale 2 Univers 90 6-01 Puffs ity of mcg/actuati 00:00: every 4 [place] on inhaler 00 (four) Medical hours as Branch needed for Wheezing or Shortness of Breath. albuterol Yes [id number] 2{puff} Inhale 2 Univers 90 6-01 Puffs ity of mcg/actuati 00:00: every 4 [place] on inhaler 00 (four) Medical hours as Branch needed for Wheezing or Shortness of Breath. albuterol Yes [id number] 2{puff} Inhale 2 Univers 90 6-01 Puffs ity of mcg/actuati 00:00: every 4 [place] on inhaler 00 (four) Medical hours as Branch needed for Wheezing or Shortness of Breath. levoFLOXaci Yes [id number] 750mg Take 1 Univers n 750 mg 6- tablet by ity of tablet 00:00: mouth [place] 00 every 24 Medical (twenty-fo Branch ur) hours. albuterol Yes [id number] 2{puff} Inhale 2 Univers 90 6-01 Puffs ity of mcg/actuati 00:00: every 4 [place] on inhaler 00 (four) Medical hours as Branch needed for Wheezing or Shortness of Breath. albuterol Yes [id number] 2{puff} Inhale 2 Univers 90 6-01 Puffs ity of mcg/actuati 00:00: every 4 [place] on inhaler 00 (four) Medical hours as Branch needed for Wheezing or Shortness of Breath. albuterol Yes [id number] 2{puff} Inhale 2 Univers 90 6-01 Puffs ity of mcg/actuati 00:00: every 4 [place] on inhaler 00 (four) Medical hours as Branch needed for Wheezing or Shortness of Breath. levoFLOXaci 2021- No [id number] 750mg Take 1 Univers n 750 mg 6-01 -19 tablet by ity o f tablet 00:00: 00:00 mouth [place] 00 :00 every 24 Medical (twenty-fo Branch ur) hours. lisinopriL 2020- No [id number] 40mg Take 1 [facility] 40 mg 07-14- tablet by ity of tablet 00:00: 04:59 mouth [place] 00 :00 daily for Medical 30 days. Branch hydroCHLORO 2020- No [id number] 12.5mg Take 1 [facility] thiazide 07-14- capsule by ity of 12.5 mg 00:00: 04:59 mouth [place] capsule 00 :00 daily for Medical 30 days. [place] lisinopriL 2020- No [id number] 40mg Take 1 [facility] 40 mg 07-14 tablet by ity of tablet 00:00: 04:59 mouth [place] 00 :00 daily for Medical 30 days. [place] hydroCHLORO 2020- No [id number] 12.5mg Take 1 [facility] thiazide 07-14- capsule by ity of 12.5 mg 00:00: 04:59 mouth [place] capsule 00 :00 daily for Medical 30 days. [place] lisinopriL 2020- No [id number] 40mg Take 1 [facility] 40 mg 07-14 tablet by ity of tablet 00:00: 04:59 mouth [place] 00 :00 daily for Medical 30 days. [place] hydroCHLORO 2020- No [id number] 12.5mg Take 1 [facility] thiazide 07-14- capsule by ity of 12.5 mg 00:00: 04:59 mouth [place] capsule 00 :00 daily for Medical 30 days. [place] lisinopriL 2020- No [id number] 40mg Take 1 [facility] 40 mg 07-14- tablet by ity of tablet 00:00: 04:59 mouth [place] 00 :00 daily for Medical 30 days. Branch hydroCHLORO 2020- No [id number] 12.5mg Take 1 [facility] thiazide 07-14- capsule by ity of 12.5 mg 00:00: 04:59 mouth [place] capsule 00 :00 daily for Medical 30 days. Branch glucagon Yes 1mg 1 mg, Univers (GLUCAGEN 5-31 Intramuscu ity of DIAGNOSTIC 23:16: [place], PRN, [place] KIT) 28 Starting Medical injection 1 Mon Branch mg 07/13/20 at 1816, Until Discontinu ed, LOGAN, Blood Glucose < or = 70 mg/dL and patient is unable to swallow or has mental changes. dextrose 50 2020-0 Yes 25mL 25 mL, Univ ers % in water 07-13 Slow IV ity of (D50W) 23:16: Push, PRN, [place] injection 28 Starting Medica l 25 mL [facility] Branch 07/13/20 at 1816, Until Discontinu ed, LOGAN, Blood Glucose < or = 70 mg/dL and patient is unable to swallow or has mental status changes. lisinopriL 2020-0 Yes 20mg 20 mg, Unive rs (PRINIVIL,Z 07-12 Oral, ity of ESTRIL) 14:00: DAILY, [place] tablet 20 00 First dose Medi charles mg (after Branch last modificati on) on 07/12/20 at 0900, Until Discontinu ed, Routine furosemide 2020- No 20mg 20 mg, Univ ers (LASIX) 07-1230 Slow IV ity of injection 01:00: 02:08 Push, [place] 20 mg 00 :00 ONCE, 1 Medical dose, [facility] 07/11/20 at 2000, Routine zolpidem 0 Yes 5mg 5 mg, Univers (AMBIEN) 07-11 Oral, ity of tablet 5 mg 23:15: QHSPRN, [place] as 55 Starting Medical [facility] 07/11/20 at 1815, Until Discontinu ed, Routine, Insomnia amLODIPine 2020-0 Yes 10mg 10 mg, Unive rs (NORVASC) 07-11 Oral, ity of tablet 10 21:00: DAILY, [place] mg 00 First dose Medical on [facility] 07/11/20 at 1600, Until Discontinu ed, Routine methylpredn 2020-2020- No 60mg 60 mg, Uni vers isolone sod 07-11 Slow IV ity of succ 17:30: 23:16 Push, Q6H, [place] (SOLU-MEDRO 00 :03 First dose Me dical L) on [facility] Branch injection 07/11/20 at 60 mg 1230, Until Discontinu ed, Routine albuterol 2021-0 Yes 2.5mg 2.5 mg, Univ ers (PROVENTIL) 07-11 Inhalation it y of 2.5 mg /3 17:04: , Q2HPRN, Kike as mL (0.083 47 Starting Medica l %) [facility] nebulizer 07/11/20 at solution 1204, 2.5 mg Until Discontinu ed, Routine, Shortness of Breath, Wheezing enoxaparin Yes 40mg 40 mg, Unive rs (LOVENOX) 07-09 Subcutaneo ity of injection 22:00: [place] 00 First dose Medical on [facility] 07/09/20 at 1700, Until Discontinu ed, Routine lisinopriL 2020- No 10mg 10 mg, Univ ers (PRINIVIL,Z 07-09 Oral, ity of ESTRIL) 14:00: 20:46 DAILY, [place] tablet 10 00 :45 First dose Medi charles mg on [facility] 07/09/20 at 0900, Until Discontinu ed, Routine predniSONE No 50mg 50 mg, Univ ers (DELTASONE) 07-09 Oral, ity of tablet 50 14:00: 23:57 DAILY, [place] mg 00 :50 First dose Medical on [facility] 07/09/20 at 0900, Until Discontinu ed, Routine NaCl 0.9% Yes 1000mL at 50 Unive rs (NS) IV 5-27 mL/hr, IV ity of infusion 13:30: Infusion, [place] 1[place]000 [place] 00 CONTINUOUS Medic al , Starting Branch [facility] 07/09/20 at 0830, Until Discontinu ed, Routine docusate Yes 100mg 100 mg, Unive rs (COLACE) 07-09 Oral, BID, ity o f capsule 100 13:00: First dose [place] mg 00 on [facility] 07/09/20 at Branch 0800, Until Discontinu ed, Routine ipratropium No 3mL 3 mL, Univ ers -albuteroL 07-09 Inhalation it y of (DUONEB) 13:00: 08:57 , QID, [place] 0.5 mg-3 00 :36 First dose Medic al mg(2.5 mg on [facility] Branch base)/3 mL 07/09/20 at nebulizer 0800, solution 3 Until mL Discontinu ed, Routine ipratropium 2020-0 2020- No 3mL 3 mL, Univ ers -albuteroL 07-09 05-27 Inhalation it y of (DUONEB) 13:00: 08:57 [...]
Durat ion of therapy: 7 days ondansetron 2020-0 Yes 4mg 4 mg, Slow Univers (ZOFRAN 27 IV Push, ity of (PF)) 09:03: Q6HPRN, [place] injection 4 54 Starting Medi charles mg [facility] Branch 07/09/20 at 0403, Until Discontinu ed, Routine, Nausea and Vomiting (N/V) budesonide 2020-0 Yes .5mg 0.5 mg, Univ ers (PULMICORT -27 Inhalation ity of RESPULE) 09:00: , BID, [place] nebulizer 00 First dose Medi charles solution on [facility] Branch 0.5 mg 07/09/20 at 0400, Until Discontinu ed, Routine
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 Restricted medication : MEGADC ipratropium 2020-0 Yes 3mL 3 mL, Unive rs -albuteroL -27 Inhalation ity of (DUONEB) 09:00: , Q4H, [place] 0.5 mg-3 00 First dose Medic al [...] dose, [facility] Medic al %) 07/09/20 at [place] nebulizer 0400, STAT solution 2.5 mg magnesium 2020- No 2g 2 g, IV Univ ers sulfate in 07-09 Piggyback, it y of water 2 06:45: 06:25 ONCE, 1 [place] gram/50 mL 00 :00 dose, [facility] Medi charles (4 %) 07/09/20 at [place] infusion 2 0145, g Routine methylpredn 2020- No 125mg 125 mg, IV Univers isolone sod 07-09 Piggyback, i ty of succ 06:45: 05:31 ONCE, 1 [place] (SOLU-MEDRO 00 :00 dose, [place] Med ical L) 07/09/20 at Branch injection 0145, STAT 125 mg levoFLOXaci No 750mg 750 mg, IV Univers n in D5W 07-09 Piggyback, ity of (LEVAQUIN) 06:30: 08:02 Administer [place] 750 mg/150 00 :00 over 90 Medica l mL Minutes, Branch Piggyback ONCE, 1 750 mg dose, Astrid 07/09/20 at 0130, LOGAN
Re ason for Anti-Infec tive: Empiric Therapy for Suspected Infection< br>Empiric Therapy Site: Respirator y
Durat ion of therapy: 72 hours ProAir HFA No 1mcg/ac 90 5-18 tuation mcg/actuati 00:00: on aerosol 00 inhaler lisinopril 0 No 1mg 40 mg 5-18 tablet 00:00: [...] 00:00: orothiazide 00 12.5 mg tablet prednisone 2017-1 No 2mg 20 mg 0-23 tablet 00:00: 00 prednisone 2017-1 No 1mg 20 mg 0-23 tablet 00:00: 00 lisinopril 2016-1 No 2mg 20 0-23 mg-hydrochl 00:00: orothiazide 00 12.5 mg tablet naproxen 2016- No 1mg 500 mg 0-23 tablet 00:00: 00 naproxen 2017- No 1mg 500 mg 0-23 tablet 00:00: 00 lisinopril 2016- No 1mg 20 mg 0-14 tablet 00:00: 00 lisinopril 2016- No 1mg 20 mg 0-14 tablet 00:00: 00 lisinopril 2017- No 1mg 20 mg 0-14 tablet 00:00: 00 lisinopril 2016- No 1mg 20 mg 0-14 tablet 00:00: 00 lisinopril 2016- No 1mg 20 mg 0-14 tablet 00:00: 00 naproxen 2017- No 1mg 500 mg 0-10 tablet 00:00: 00 naproxen 2016- No 1mg 500 mg 0-10 tablet 00:00: 00 naproxen 2016- No 1mg 500 mg 0-10 tablet 00:00: 00 naproxen 2016- No 1mg 500 mg 0-10 tablet 00:00: [...] Source Name Name TST-PPD intradermal 2017-01-02 Completed [place] 00:00:00 - External TST-PPD intradermal 2017-01-02 Completed [place] 00:00:00 - External TST-PPD intradermal 2017-01-02 Completed [place] 00:00:00 - External TST-PPD intradermal 2017-01-02 Completed 00:00:00 TST-PPD intradermal 2017-01-02 Completed 00:00:00 TST-PPD intradermal 2017-01-02 Completed 00:00:00 TST-PPD intradermal 2017-01-02 Completed 00:00:00 TST-PPD intradermal 2017-01-02 Completed 00:00:00 Vital Signs Vital Name Observation Time Observation Value Comments Source Systolic blood 2022-06-03 18:32:00 162 mm[Hg] Univer sity of [facility] Diastolic blood 2022-06-03 18:32:00 88 mm[Hg] Unive rsity of [facility] Heart rate 2022-06-03 18:18:00 79 /min [facility] Body temperature 2022-06-03 18:18:00 36.56 Madhuri [facility] 2022-06-03 18:18:00 18 /min [facility] Body height 2022-06-03 18:18:00 149.9 cm [facility] Body weight 2022-06-03 18:18:00 132.632 kg [facility] BMI 2022-06-03 18:18:00 59.06 kg/m2 [facility] Oxygen saturation in 2022-06-03 18:18:00 96 /min [facility] Arterial blood by [facility] Pulse oximetry Branch Systolic blood 2022-05-20 21:03:00 154 mm[Hg] Franny Hartleyybold - pressure External Diastolic blood 2022-05-20 21:03:00 88 mm[Hg] [place] - pressure External Heart rate 2022-05-20 21:03:00 105 /min Franny Prema eybold - External Body temperature 2022-05-20 21:03:00 36.56 Madhuri Gloria ey Seybold - External Respiratory rate 2022-05-20 21:03:00 15 /min Gloria ey Seybold - External Body height 2022-05-20 21:03:00 160 cm Franny S eybold - External Body weight 2022-05-20 21:03:00 133.358 kg Franny S eybold - External BMI 2022-05-20 21:03:00 52.08 kg/m2 Franny S eybold - External Systolic blood 2022-05-08 12:24:00 130 mm[Hg] Univer sity of [facility] [place] [facility] Diastolic blood 2022-05-08 12:24:00 61 mm[Hg] Unive rsity of pressure [place] [facility] Heart rate 2022-05-08 12:24:00 71 /min Universi ty [facility] [place] [facility] Body temperature 2022-05-08 12:24:00 36.78 Madhuri Univ ersity of [place] [facility] Respiratory rate 2022-05-08 12:24:00 15 /min Univ ersity of [place] [facility] Oxygen saturation in 2022-05-08 12:24:00 99 /min University of Arterial blood by [place] [email or web address] charles Pulse oximetry Branch Body weight 2022-05-07 01:00:00 130 kg Universi ty [facility] [place] [facility] BMI 2022-05-07 01:00:00 54.15 kg/m2 [facility] [place] [facility] Body height 2022-04-30 07:12:00 154.9 cm [facility]i ty [facility] [place] [facility] Systolic blood 2022-05-06 12:00:00 133 mm[Hg] Univer sity of pressure [place] [facility] Diastolic blood 2022-05-06 12:00:00 72 mm[Hg] Unive rsity of pressure [place] [facility] Heart rate 2022-05-06 12:00:00 68 /min [facility]i ty [facility] [place] [facility] Respiratory rate 2022-05-06 12:00:00 13 /min Univ ersity [facility] [place] [facility] Oxygen saturation in 2022-05-06 12:00:00 99 /min University of Arterial blood by [place] [email or web address] [facility]les Pulse oximetry Branch Body temperature 2022-05-06 09:00:00 36.61 Madhuri Univ ersity [facility] [place] [facility] Body weight 2022-05-06 01:00:00 128 kg [facility]i [facility] [place] [facility] BMI 2022-05-06 01:00:00 54.15 kg/m2 [facility] [place] [facility] Body height 2022-04-30 07:12:00 154.9 cm [facility]i [facility] [place] [facility] Systolic blood 2022-04-29 03:00:00 169 mm[Hg] Univer sity of pressure [place] [facility] Diastolic blood 2022-04-29 03:00:00 99 mm[Hg] Unive rsity of pressure [place] [facility] Heart rate 2022-04-29 03:00:00 76 /min Universi ty of [facility] Respiratory rate 2022-04-29 03:00:00 20 /min [facility] Oxygen saturation in 2022-04-29 03:00:00 95 /min University of Arterial blood by [place] [facility] Pulse oximetry Branch Body temperature 2022-04-29 00:10:00 36.39 Madhuri [address] of [facility] Body height 2022-04-29 00:10:[address] [facility] Body weight 2022-04-29 00:10:[address] [facility] BMI 2022-04-29 00:10:00 52.91 kg/m2 Universi ty [facility] Systolic blood 2022-04-20 15:52:00 142 mm[Hg] Rfanny Seybold - pressure External Diastolic blood 2022-04-20 15:52:00 88 mm[Hg] Clay y Seybold - pressure External Heart rate 2022-04-20 15:52:00 88 /min Franny S eybold - External Body temperature 2022-04-20 15:52:00 36.94 Madhuri Gloria ey Seybold - External Respiratory rate 2022-04-20 15:52:00 14 /min Golria ey Seybold - External Body height 2022-04-20 15:52:00 160 cm Franny S eybold - External Body weight 2022-04-20 15:52:00 133.811 kg Franny S eybold - External BMI 2022-04-20 15:52:00 52.26 kg/m2 Franny S eybold - External Oxygen saturation in 2022-04-20 15:52:00 93 /min Franny Hartleyybold - Arterial blood by External Pulse oximetry Systolic blood 2022-01-17 18:48:00 128 mm[Hg] Univer sity of pressure [facility] Diastolic blood 2022-01-17 18:48:00 69 mm[Hg] Unive rsity of [facility] Heart rate 2022-01-17 18:48:00 72 /min Universi ty of [facility] Body temperature 2022-01-17 18:48:00 37.17 Madhuri Univ ersity of [place] [facility] Respiratory rate 2022-01-17 18:48:00 18 /min Univ ersity of [place] [facility] Oxygen saturation in 2022-01-17 18:48:00 98 /min University of Arterial blood by [facility] Pulse oximetry Branch Body height 2022-01-14 17:49:00 152.4 cm Universi ty [facility] [place] [facility] Body weight 2022-01-14 17:49:00 133.358 kg [facility] [place] [facility] BMI 2022-01-14 17:49:00 57.42 kg/m2 [facility] [place] [facility] Systolic blood 2021-10-01 17:11:00 124 mm[Hg] Univer sity of pressure [place] [facility] Diastolic blood 2021-10-01 17:11:00 73 mm[Hg] Unive rsity of pressure [place] [facility] Heart rate 2021-10-01 17:11:00 86 /min [facility]i ty [facility] [place] [facility] Body temperature 2021-10-01 17:11:00 36.22 Madhuri Univ ersity [facility] [place] [facility] Respiratory rate 2021-10-01 17:11:00 18 /min Univ ersity [facility] [place] [facility] Oxygen saturation in 2021-10-01 17:11:00 93 /min University of Arterial blood by [facility] Pulse oximetry Branch Body weight 2021-10-01 09:03:00 140.978 kg [facility] [place] [facility] BMI 2021-10-01 09:03:00 56.85 kg/m2 [facility] [place] [facility] Body height 2021-10-01 00:52:00 157.5 cm [facility] [place] [facility] Systolic blood 2021-09-09 05:57:00 124 mm[Hg] Univer sity of pressure [place] [facility] Diastolic blood 2021-09-09 05:57:00 65 mm[Hg] Unive rsity of pressure [place] [facility] Heart rate 2021-09-09 05:57:00 89 /min [facility]i ty [facility] [place] [facility] Respiratory rate 2021-09-09 05:57:00 20 /min Univ ersity [facility] [place] [facility] Oxygen saturation in 2021-09-09 05:57:00 95 /min University of Arterial blood by [facility] Pulse oximetry Branch Body temperature 2021-09-09 02:32:00 37.28 Madhuri Univ ersity [facility] [place] [facility] Body weight 2021-09-09 02:32:00 137.893 kg [facility]i ty [facility] [place] [facility] BMI 2021-09-09 02:32:00 55.60 kg/m2 [facility] [place] [facility] Heart rate 2020-07-28 16:41:00 78 /min [facility] [place] [facility] Respiratory rate 2020-07-28 16:41:00 18 /min Univ ersity [facility] [place] [facility] Oxygen saturation in 2020-07-28 16:41:00 90 /min University of Arterial blood by [facility] Pulse oximetry Branch Systolic blood 2020-07-28 16:38:00 129 mm[Hg] Univer sity of pressure [place] [facility] Diastolic blood 2020-07-28 16:38:00 69 mm[Hg] Unive rsity of pressure [place] [facility] Body temperature 2020-07-28 16:38:00 36.83 Madhuri Univ ersity of [place] [facility] [place] Body height 2020-07-27 10:06:00 157.5 cm [facility]i ty [facility] [place] [facility] Body weight 2020-07-27 10:06:00 137.939 kg [facility] [place] [facility] BMI 2020-07-27 10:06:00 55.62 kg/m2 [facility] [place] [facility] Respiratory rate 2020-07-14 16:45:00 20 /min Univ ers[facility] [place] [facility] Oxygen saturation in 2020-07-14 16:45:00 100 /min University of Arterial blood by [facility] Pulse oximetry Branch Systolic blood 2020-07-14 16:10:00 140 mm[Hg] Univer sity of pressure [place] [facility] Diastolic blood 2020-07-14 16:10:00 88 mm[Hg] Unive rsity of pressure [place] [facility] Heart rate 2020-07-14 16:10:00 72 /min [facility] [place] [facility] Body temperature 2020-07-14 16:10:00 36.17 Madhuri Univ ersity [facility] [place] [facility] Body weight 2020-07-14 08:35:00 135.489 kg [facility] [place] [facility] BP Systolic 2022-02-15 16:32:00 160 [...] 14:00:00 164 mm[Hg] Univer sity of pressure [facility] Diastolic blood 2022-01-16 14:00:00 84 mm[Hg] Unive rsity of pressure [facility] Heart rate 2022-01-16 14:00:00 79 /min [facility] Body temperature 2022-01-16 14:00:00 36.72 Madhuri [address] [address] of [facility] Respiratory rate 2022-01-16 14:00:00 21 /min [facility] O[facility] in 2022-01-16 14:00:00 97 /min University Arterial blood by [facility] Pulse oximetry Branch Body height 2022-01-14 17:49:00 152.4 cm [facility] Body weight 2022-01-14 17:49:00 133.358 [facility] BMI 2022-01-14 17:49:00 57.42 kg/m2 [facility] BP Systolic 2021-09-30 13:38:00 172 mm[Hg] BP [...] Date / Time Performing Clinician Source Performed CONSENT/REFUSAL FOR 2022-06-03 17:55:19 Doctor UnassignedSlava [facility] DIAGNOSIS AND TREATMENT [place] [facility] POCT GLUCOSE (AUTOMATED) 2022-05-08 13:00:00 Jordan Grimaldo Uni versity of [facility] POCT GLUCOSE (AUTOMATED) 2022-05-08 01:55:00 Dillan, Jordan Uni versity of [facility] POCT GLUCOSE (AUTOMATED) 2022-05-08 01:30:00 Dillan, Jordan Uni versity of [facility] POCT GLUCOSE (AUTOMATED) 2022-05-07 22:10:00 Dillan, Jordan Uni versity of [facility] POCT GLUCOSE (AUTOMATED) 2022-05-07 17:57:00 Dillan, Jordan Uni versity of [facility] POCT GLUCOSE (AUTOMATED) 2022-05-07 17:57:00 Dillan, Jordan Uni versity of [facility] POCT GLUCOSE (AUTOMATED) 2022-05-07 14:42:00 Dillan, Jordan Uni versity of [facility] POCT GLUCOSE (AUTOMATED) 2022-05-07 14:42:00 Jordan Grimaldo Liz [facility] CBC WITH DIFF 2022-05-07 09:52:00 Fidel Pozo [facility] CBC WITH DIFF 2022-05-07 09:52:00 Fidel Pozo [facility] CT HEAD WO CONTRAST 2022-05-07 08:55:00 [facility] HEAD WO CONTRAST 2022-05-07 08:55:00 Fidel Pozo [facility] BASIC METABOLIC PANEL 2022-05-07 08:01:00 Fidel Pozo [facility] (NA, K, CL, CO2, GLUCOSE, [facility] Medica l Branch BUN, CREATININE, CA) BASIC METABOLIC PANEL 2022-05-07 08:01:00 [facility] ([facility], K, CL, CO2, GLUCOSE, [facility] Branch BUN, CREATININE, CA) TROPONIN I 2022-05-07 03:07:00 Pozo [facility] TROPONIN I 2022-05-07 03:07:00 Pozo [facility] POCT GLUCOSE (AUTOMATED) 2022-05-07 01:32:00 Jordan Grimaldo Uni versity of [facility] POCT GLUCOSE (AUTOMATED) 2022-05-07 01:32:00 Jordan Grimaldo Uni versity of [facility] POCT GLUCOSE (AUTOMATED) 2022-05-06 23:04:00 Jordan Grimaldo Uni versity of [facility] POCT GLUCOSE (AUTOMATED) 2022-05-06 23:04:00 Jordan Grimaldo Uni versity of [facility] POCT GLUCOSE (AUTOMATED) 2022-05-06 17:46:00 Jordan Grimaldo Uni versity of [facility] POCT GLUCOSE (AUTOMATED) 2022-05-06 17:46:00 Jordan Grimaldo versity of [facility] CEREBROSPINAL FLUID SHUNT 2022-05-06 12:08:00 Jordan Grimaldo iversity of [facility] CEREBROSPINAL FLUID SHUNT 2022-05-06 12:08:00 Jordan Grimaldo Un iversity of [place] INSERTION Medical [place] XR CHEST 1 VW 2022-05-06 10:37:00 Roby Summers [facility] XR CHEST 1 VW 2022-05-06 10:37:00 Roby Summers [facility] TEST, SERUM 2022-05-06 04:30[facility]00 [facility] 2022-05-06 04:30:00 Roby Summers [facility] (NA, K, CL, CO2, GLUCOSE, [facility] BUN, CREATININE, CA) CBC WITH DIFF 2022-05-06 04:30:00 Roby Summers [facility] PROTHROMBIN TIME / INR 2022-05-06 04:30:00 Roby Summers [facility] ACTIVATED PARTIAL 2022-05-06 04:30:00 Roby Summers [facility] HB ABO GROUPING 2022-05-06 04:30:00 Roby Summers [facility] TEST, SERUM 2022-05-06 04:30:00 Roby Summers [facility] BASIC METABOLIC PANEL 2022-05-06 04:30:00 Roby Summers [facility] (NA, K, CL, CO2, GLUCOSE, [facility] Medica l Branch BUN, CREATININE, CA) CBC WITH DIFF 2022-05-06 04:30:00 Roby Summers [facility] PROTHROMBIN TIME / INR 2022-05-06 04:30:00 Roby Summers [facility] ACTIVATED PARTIAL 2022-05-06 04:30:00 Roby Summers [facility] HB ABO GROUPING 2022-05-06 04:30:00 Roby Summers [facility] CT HEAD WO CONTRAST 2022-05-06 03:13:54 Roby Summers [facility] CT HEAD WO CONTRAST 2022-05-06 03:13:54 Roby Summers [facility] POCT GLUCOSE (AUTOMATED) 2022-05-06 01:43:00 [facility] POCT GLUCOSE (AUTOMATED) 2022-05-06 01:43:00 Jordan Grimaldo Uni [facility]ity of [facility] POCT GLUCOSE (AUTOMATED) 2022-05-05 22:24:00 Jordan Grimaldo Uni versity of [facility] POCT GLUCOSE (AUTOMATED) 2022-05-05 22:24:00 Jordan Grimaldo Uni versity of [facility] POCT GLUCOSE (AUTOMATED) 2022-05-05 17:45:00 Jordan Grimaldo Uni versity of [facility] POCT GLUCOSE (AUTOMATED) 2022-05-05 17:45:00 Jordan Grimaldo Uni versity [facility] POCT GLUCOSE (AUTOMATED) 2022-05-05 12:42:00 Jordan Grimaldo Uni versity of [facility] POCT GLUCOSE (AUTOMATED) 2022-05-05 12:42:[address]ity of [facility] BASIC METABOLIC PANEL 2022-05-05 09:13:00 NoheliaFidel [facility] (NA, K, CL, CO2, GLUCOSE, [facility] Branch BUN, CREATININE, CA) CBC WITH DIFF 2022-05-05 09:13:00 Pozo [facility] BASIC METABOLIC PANEL 2022-05-05 09:13:00 Pozo [facility] (NA, K, CL, CO2, GLUCOSE, [facility] BUN, CREATININE, CA) CBC WITH DIFF 2022-05-05 [facility] 2022-05-04 21:52:00 Jordan Grimaldo [facility]ity of [facility] POCT GLUCOSE (AUTOMATED) 2022-05-04 21:52:00 Jordan Grimaldo versity [facility] MR BRAIN WO CONTRAST 2022-05-04 20:35:00 Donald Laguerre [facility] MR BRAIN WO CONTRAST 2022-05-04 20:35:00 Donald Laguerre [facility] POCT GLUCOSE (AUTOMATED) 2022-05-04 16:44:00 Jordan Grimaldo Uni [facility] POCT GLUCOSE (AUTOMATED) 2022-05-04 16:44:00 Jordan Grimaldo Uni [facility]ity of [facility] POCT GLUCOSE (AUTOMATED) 2022-05-04 12:49:00 Jordan Grimaldo Uni [facility]ity [facility] POCT GLUCOSE (AUTOMATED) 2022-05-04 12:49:00 Jordan Grimaldo Uni [facility]ity [facility] BASIC METABOLIC PANEL 2022-05-04 09:39:00 Jeri Conde [facility] (NA, K, CL, CO2, GLUCOSE, [facility]ica [facility] Branch BUN, CREATININE, CA) CBC WITHOUT DIFF 2022-05-04 09:39:00 Jeri Conde [facility] BASIC METABOLIC PANEL 2022-05-04 09:39:00 Jeri Conde [facility] (NA, K, CL, CO2, GLUCOSE, [facility] BUN, CREATININE, CA) CBC WITHOUT DIFF 2022-05-04 09:39:00 Jeri Conde [facility] POCT GLUCOSE (AUTOMATED) 2022-05-04 01:57:00 Jordan Grimaldo Uni versity of [facility] POCT GLUCOSE (AUTOMATED) 2022-05-04 01:57:00 Dillan, Jordan Uni versity of [facility] POCT GLUCOSE (AUTOMATED) 2022-05-03 21:11:00 Dillan, Jordan Uni [facility] of [facility] POCT GLUCOSE (AUTOMATED) 2022-05-03 21:11:00 Dillan, Jordan Uni [facility]ity [facility] POCT GLUCOSE (AUTOMATED) 2022-05-03 17:03:00 Dillan, Jordan Uni [facility]ity of [facility] POCT GLUCOSE (AUTOMATED) 2022-05-03 17:03:00 Jordan Grimaldo Uni [facility]ity [facility] POCT GLUCOSE (AUTOMATED) 2022-05-03 12:38:00 Dillan, Jordan Uni [facility]ity [facility] POCT GLUCOSE (AUTOMATED) 2022-05-03 12:38:00 Jordan Grimaldo Uni [facility]ity of [facility] BASIC METABOLIC PANEL 2022-05-03 08:52:00 Fidel Pozo [facility] [place] (NA, K, CL, CO2, GLUCOSE, [facility] BUN, CREATININE, CA) CBC WITH DIFF 2022-05-03 08:52:00 Fidel Pozo [facility] BASIC METABOLIC PANEL 2022-05-03 08:52:00 Fidel Pozo [facility] [place] (NA, K, CL, CO2, GLUCOSE, [facility] BUN, CREATININE, CA) CBC WITH DIFF 2022-05-03 08:52:00 Fidel Pozo [facility] POCT GLUCOSE (AUTOMATED) 2022-05-03 02:53:00 Jordan Grimaldo Uni [facility]ity [facility] POCT GLUCOSE (AUTOMATED) 2022-05-03 02:53:00 Joradn Grimaldo Uni [facility]ity of [facility] POCT GLUCOSE (AUTOMATED) 2022-05-02 22:09:00 Dillan, Jordan [facility] [place] [facility] POCT GLUCOSE (AUTOMATED) 2022-05-02 22:09:00 Dillan, Jordan [facility] [place] [facility] POCT GLUCOSE (AUTOMATED) 2022-05-02 17:18:00 Dillan, Jordan [facility] [place] [facility] POCT GLUCOSE (AUTOMATED) 2022-05-02 17:18:00 Dillan, Jordan [facility] [place] [facility] POCT GLUCOSE (AUTOMATED) 2022-05-02 13:30:00 Dillan, Jordan Uni [facility]ity of [facility] POCT GLUCOSE (AUTOMATED) 2022-05-02 13:30:00 Dillan, Jordan Uni [facility]ity of [facility] BASIC METABOLIC PANEL 2022-05-02 10:10:00 [facility] [place] (NA, K, CL, CO2, GLUCOSE, [facility] BUN, CREATININE, CA) CBC WITH DIFF 2022-05-02 10:10:00 Roby Summers Univers ity of [facility] BASIC METABOLIC PANEL 2022-05-02 10:10:00 Roby Summers [facility] [place] (NA, K, CL, CO2, GLUCOSE, [facility] BUN, CREATININE, CA) CBC WITH DIFF 2022-05-02 10:10:00 Roby Summers [facility] [place] POCT GLUCOSE (AUTOMATED) 2022-05-02 02:06:00 Jordan Grimaldo [facility] POCT GLUCOSE (AUTOMATED) 2022-05-02 02:06:00 Dillan, Jordan [facility] POCT GLUCOSE (AUTOMATED) 2022-05-01 21:52:00 Isha Grimaldorick [facility] [place] [facility] POCT GLUCOSE (AUTOMATED) 2022-05-01 21:52:00 Dillan, Jordan [facility] [place] [facility] POCT GLUCOSE (AUTOMATED) 2022-05-01 16:48:00 Dillan, Jordan [facility] [place] [facility] POCT GLUCOSE (AUTOMATED) 2022-05-01 16:48:00 Jordan Grimaldo [facility] POCT GLUCOSE (AUTOMATED) 2022-05-01 12:47:00 Jordan Grimaldo [facility] POCT GLUCOSE (AUTOMATED) 2022-05-01 12:47:00 Jordan Grimaldo [facility] of [facility] BASIC METABOLIC PANEL 2022-05-01 10:24:00 [facility]y [facility] [place] (NA, K, CL, CO2, GLUCOSE, [facility] BUN, CREATININE, CA) CBC WITH DIFF 2022-05-01 10:24:00 Roby Summers [facility] ity of [facility] [place] BASIC METABOLIC PANEL 2022-05-01 10:24:00 Roby Summers [facility] [place] (NA, K, CL, CO2, GLUCOSE, [facility] BUN, CREATININE, CA) CBC WITH DIFF 2022-05-01 10:24:00 Roby Summers Univers ity of [facility] [place] CT HEAD WO CONTRAST 2022-05-01 04:41:45 OgRoby hoskins Uni versity of [facility] [place] CT HEAD WO CONTRAST 2022-05-01 04:41:45 OgRoby hoskins Uni [facility]ity of [facility] [place] POCT GLUCOSE (AUTOMATED) 2022-05-01 00:25:00 Jordan Grimaldo [facility] POCT GLUCOSE (AUTOMATED) 2022-05-01 00:25:00 Jordan Grimaldo [facility] POCT GLUCOSE (AUTOMATED) 2022-04-30 21:40:00 Jordan Grimaldo [facility] POCT GLUCOSE (AUTOMATED) 2022-04-30 21:40:00 Jordan Grimaldo [facility] POCT GLUCOSE (AUTOMATED) 2022-04-30 17:25:00 Jordan Grimaldo [facility] POCT GLUCOSE (AUTOMATED) 2022-04-30 17:25:00 Jordan Grimaldo [facility] MR CERVICAL SPINE WO 2022-04-30 14:45:36 Duong Wyatt [facility] [place] CONTRAST Tr Medical Branch MR CERVICAL SPINE WO 2022-04-30 14:45:36 Duong Wyatt [facility] CONTRAST [facility] MR BRAIN WO CONTRAST 2022-04-30 14:43:29 Roby Summers i[facility]kee[facility] of [facility] [place] MR BRAIN WO CONTRAST 2022-04-30 14:43:29 Roby Summers Un [facility] POCT GLUCOSE (AUTOMATED) 2022-04-30 12:56:00 Jordan Grimaldo [facility] POCT GLUCOSE (AUTOMATED) 2022-04-30 12:56:00 Jordan Grimaldo [facility] BASIC METABOLIC PANEL 2022-04-30 10:09:00 Roby Summers U niversity [facility] (NA, K, CL, CO2, GLUCOSE, [facility] Med[facility] BUN, CREATININE, CA) CBC WITH DIFF 2022-04-30 10:09:00 Roby Summers [facility] BASIC METABOLIC PANEL 2022-04-30 10:09:00 Roby Summers U niversity [facility] (NA, K, CL, CO2, GLUCOSE, [facility] Med[facility] BUN, CREATININE, CA) CBC WITH DIFF 2022-04-30 10:09:00 Roby Summers [facility] POCT GLUCOSE (AUTOMATED) 2022-04-30 01:42:00 Shannan Brian [facility] POCT GLUCOSE (AUTOMATED) 2022-04-30 01:42:00 Shannan Brian [facility] MAGNESIUM 2022-04-29 20:35:00 Gaudencio Morelos [facility] BASIC METABOLIC PANEL 2022-04-29 20:35:00 Gaudencio Morelos U niversity [facility] (NA, K, CL, CO2, GLUCOSE, Medica l Branch BUN, CREATININE, CA) MAGNESIUM 2022-04-29 20:35:00 Gaudencio Morelos [facility] BASIC METABOLIC PANEL 2022-04-29 20:35:00 Gaudencio Morelos U niversity [facility] (NA, K, CL, CO2, GLUCOSE, Medica l Branch BUN, CREATININE, CA) CT HEAD WO CONTRAST 2022-04-29 15:23:00 Duong Wyatt [facility] CT HEAD WO CONTRAST 2022-04-29 15:23:00 Duong Wyatt [facility] EXTRA TUBE URINE CULTURE 2022-04-29 08:11:00 Shannan Brian [facility] URINALYSIS 2022-04-29 08:11:00 Gaudencio Morelos [facility] EXTRA TUBE URINE CULTURE 2022-04-29 08:11:00 Shannan Brian [facility] URINALYSIS 2022-04-29 08:11:00 Ramon Alexandra marianela [facility] COVID-19 (ID NOW RAPID 2022-04-29 06:21:00 Ramon Alexandra [facility] TESTING) Medical Branch LAB ONLY COVID 2022-04-29 06:21:00 Gaudencio Morelos [facility] TROPONIN I 2022-04-29 06:21:00 Ramon Alexandra marianela [facility] PROTHROMBIN TIME / INR 2022-04-29 06:21:00 Ramon Alexandra [facility] ACTIVATED PARTIAL 2022-04-29 06:21:00 Gaudencio Morelos [facility] COVID-19 (ID NOW RAPID 2022-04-29 06:21:00 Ramon Alexandra [facility] TESTING) Medical Branch LAB ONLY COVID 2022-04-29 06:21:00 Gaudencio Morelos [facility] TROPONIN I 2022-04-29 06:21:00 Gaudencio Morelos [facility] PROTHROMBIN TIME / INR 2022-04-29 06:21:00 Ramon Alexandra [facility] ACTIVATED PARTIAL 2022-04-29 06:21:00 Gaudencio Morelos [facility] POCT TEST 2022-04-29 00:36:00 Benjamin, [facility] LIPASE 2022-04-29 00:21:[address] [facility] MAGNESIUM 2022-04-29 00:21:[address] [facility] TROPONIN I 2022-04-29 00:21:[address] [facility] COMP. METABOLIC PANEL 2022-04-29 00:21:00 [facility] ([id number]) [facility] SEDIMENTATION RATE 2022-04-29 00:21:00 Gaudencio Morelos [facility] CBC WITH DIFF 2022-04-29 00:21:[address] [facility] GLYCOSYLATED HEMOGLOBIN 2022-04-29 00:21:00 Ramon Alexandra marianela [facility] (A1C) [facility] N-TERMINAL PRO-BNP 2022-04-29 00:21:00 Singer [facility] TEST, SERUM 2022-04-29 00:21:00 Gaudencio Morelos U [facility] TEST, SERUM 2022-04-29 00:21:00 Gaudencio Morelos [facility] CONSENT/REFUSAL FOR 2022-04-28 23:54:00 [facility] [place] [facility] EMERGENCY SERVICES 2022-04-28 05:01:00 Doctor Shirley [facility] AGREEMENTS AND [place] [facility] AUTHORIZATIONS EMERGENCY SERVICES 2022-04-28 05:01:00 Doctor Unajose, [facility] AGREEMENTS AND [place] [facility] AUTHORIZATIONS MAGNESIUM 2022-01-17 10:09:00 Zaynab Zimmerman [facility] BASIC METABOLIC PANEL 2022-01-17 10:09:00 Zaynab Zimmerman [facility] (NA, K, CL, CO2, GLUCOSE, Medica l Branch BUN, CREATININE, CA) CBC WITH DIFF 2022-01-17 10:09:00 Erasmo [facility] BASIC METABOLIC PANEL 2022-01-16 14:47:00 Kate Santiago [facility] (NA, K, CL, CO2, GLUCOSE, Medica l Branch BUN, CREATININE, CA) BASIC METABOLIC PANEL 2022-01-16 14:47:00 [facility] (NA, K, CL, CO2, GLUCOSE, Medica l Branch BUN, CREATININE, CA) CBC WITH DIFF 2022-01-16 11:23:00 Pamela [facility] CBC WITH DIFF 2022-01-16 11:23:00 Pamela [facility] POCT GLUCOSE (AUTOMATED) 2022-01-15 18:39:00 Jones Phipps [facility] POCT GLUCOSE (AUTOMATED) 2022-01-15 18:39:00 Jones Phipps [facility] CBC WITH DIFF 2022-01-15 11:24:00 Pamela [facility] BASIC METABOLIC PANEL 2022-01-15 11:24:00 Pamela [facility] (NA, K, CL, CO2, GLUCOSE, Medica l Branch BUN, CREATININE, CA) BASIC METABOLIC PANEL 2022-01-15 11:24:00 [facility] (NA, K, CL, CO2, GLUCOSE, Medica l Branch BUN, CREATININE, CA) CBC WITH DIFF 2022-01-15 11:24:00 Pamela [facility] CT ANGIOGRAM HEAD 2022-01-15 03:24[facility] 2022-01-15 03:24:59 Pamela [facility] IR SPINAL LUMBAR PUNCTURE 2022-01-14 19:39:00 Jalil Sesay Un iversity [facility] DIAGNOSTIC [facility] IR SPINAL LUMBAR PUNCTURE 2022-01-14 19:39:00 [facility] CEREBROSPINAL FLUID 2022-01-14 18:55:00 Pamela [facility] GLUCOSE [facility] CEREBROSPINAL FLUID 2022-01-14 18:55:00 Pamela [facility] PROTEIN [facility] BODY FLUID MANUAL DIFF 2022-01-14 18:55:00 Kate Santiago [facility] CSF CULTURE 2022-01-14 18:55:00 Pamela [facility] CEREBROSPINAL FLUID 2022-01-14 18:55:00 Pamela [facility] PROTEIN [facility] CEREBROSPINAL FLUID 2022-01-14 18:55:00 Pamela [facility] GLUCOSE [facility] BODY FLUID DIRECT COUNT 2022-01-14 18:55:00 [facility] CSF/SUPPORT WORKER SHUNT CULTURE 2022-01-14 18:55:00 Pamela [facility] CSF CULTURE 2022-01-14 18:55:00 Pamela [facility] CBC WITH DIFF 2022-01-14 11:00:00 Pamela [facility] BASIC METABOLIC PANEL 2022-01-14 11:00:00 Pamela [facility] (NA, K, CL, CO2, GLUCOSE, Medica l Branch BUN, CREATININE, CA) MAGNESIUM 2022-01-14 11:00:00 Pamela [facility] MAGNESIUM 2022-01-14 11:00:00 Pamela [facility] BASIC METABOLIC PANEL 2022-01-14 11:00:00 [facility] (NA, K, CL, CO2, GLUCOSE, Medica l Branch BUN, CREATININE, CA) CBC WITH DIFF 2022-01-14 11:00:00 Pamela [facility] BASIC METABOLIC PANEL 2022-01-13 12:56:00 Neo [facility] (NA, K, CL, CO2, GLUCOSE, Medica l Branch BUN, CREATININE, CA) MAGNESIUM 2022-01-13 12:56:00 Neo [facility] PHOSPHORUS 2022-01-13 12:56:00 Neo [facility] PHOSPHORUS 2022-01-13 12:56:00 Neo [facility] MAGNESIUM 2022-01-13 12:56:00 Neo [facility] BASIC METABOLIC PANEL 2022-01-13 12:56:00 Neo [facility] (NA, K, CL, CO2, GLUCOSE, Medica l Branch BUN, CREATININE, CA) CBC WITH DIFF 2022-01-13 12:55:00 Neo [facility] CBC WITH DIFF 2022-01-13 12:55:00 Neo [facility] CBC WITH DIFF 2022-01-12 09:55:00 Arnold Laureano [facility] BASIC METABOLIC PANEL 2022-01-12 09:55:00 Arnold Laureano [facility] (NA, K, CL, CO2, GLUCOSE, Medica l Branch BUN, CREATININE, CA) MAGNESIUM 2022-01-12 09:55:00 Arnold Laureano [facility] MAGNESIUM 2022-01-12 09:55:00 Arnold Laureano [facility] BASIC METABOLIC PANEL 2022-01-12 09:55:00 Arnold Laureano [facility] (NA, K, CL, CO2, GLUCOSE, Medica l Branch BUN, CREATININE, CA) CBC WITH DIFF 2022-01-12 09:55:00 Arnold Laureano [facility] MR BRAIN WO CONTRAST 2022-01-11 16:06:17 [facility] MR BRAIN WO CONTRAST 2022-01-11 16:06:17 Arnold Laureano [facility] PHOSPHORUS 2022-01-11 10:29:00 Arnold Laureano [facility] COVID-19 (MOLECULAR 2022-01-11 10:29:00 Arnold Laureano [facility] NUCLEIC ACID AMPLIFICATION) LAB ONLY COVID 2022-01-11 10:29:00 Arnold Laureano [facility] INTERPRETATION [facility] PHOSPHORUS 2022-01-11 10:29:00 Arnold Laureano [facility] COVID-19 (MOLECULAR 2022-01-11 10:29:00 Arnold Laureano [facility] TESTING [facility] NUCLEIC ACID AMPLIFICATION) LAB ONLY COVID 2022-01-11 10:29:00 Arnold Laureano [facility] INTERPRETATION [facility] AC PANEL 20 + LACTIC ACID 2022-01-11 05:29:00 [facility] + LACTIC ACID 2022-01-11 05:29:00 Mariusz Deluca [facility] COVID-19 (ID NOW RAPID 2022-01-11 04:23:00 Mariusz [facility]uca [facility] TEST[facility] Medical Branch LAB ONLY COVID 2022-01-11 04:23:00 Mariusz Deluca [facility] COVID-19 (ID NOW RAPID 2022-01-11 04:23:00 Mariusz Deluca [facility] Medical Branch LAB ONLY COVID 2022-01-11 04:23:00 Mariusz Deluca [facility] CT CHEST PULMONARY 2022-01-11 03:22:01 Mariusz Deluca [facility] CT ANGIOGRAM HEAD 2022-01-11 03:22:01 Yosi [facility] CT ANGIOGRAM NECK 2022-01-11 03:22:01 Yosi [facility] CT ANGIOGRAM HEAD 2022-01-11 03:22:01 Yosi [facility] CT ANGIOGRAM NECK 2022-01-11 03:22:01 Yosi [facility] CT CHEST PULMONARY 2022-01-11 03:22:01 Mariusz Deluca [facility] ANGIOGRAM Medical Branch CT HEAD WO CONTRAST 2022-01-11 03:03:54 Mariusz [facility]uca [facility] HEAD WO CONTRAST 2022-01-11 03:03:54 Mariusz Deluca [facility] ACTIVATED PARTIAL 2022-01-11 02:09:00 Mariusz Deluca [facility] THRMPLAS [facility] PROTHROMBIN TIME / INR 2022-01-11 02:09:00 Mariusz Deluca [facility] PROTHROMBIN TIME / INR 2022-01-11 02:09:00 Mariusz Deluca [facility] ACTIVATED PARTIAL 2022-01-11 02:09:00 Mariusz Deluca [facility] CBC WITH DIFF 2022-01-11 01:17:00 Mariusz Deluca [facility] COMP. METABOLIC PANEL 2022-01-11 01:17:00 Mariusz Deluca [facility] ([id number]) [facility] TROPONIN I 2022-01-11 01:17:00 [facility] N-TERMINAL PRO-BNP 2022-01-11 01:17:[address] [facility] LIPASE 2022-01-11 01:17:00 Mariusz Deluca [facility] TEST, SERUM 2022-01-11 01:17:00 Mariusz Deluca [facility] LIPASE 2022-01-11 01:17:00 Mariusz Deluca [facility] TEST, SERUM 2022-01-11 01:17:[address] [facility] TROPONIN I 2022-01-11 01:17:00 Mariusz Deluca [facility] COMP. METABOLIC PANEL 2022-01-11 01:17:00 Mariusz Deluca [facility] ([id number]) [facility] CBC WITH DIFF 2022-01-11 01:17:00 Mariusz Deluca [facility] N-TERMINAL PRO-BNP 2022-01-11 01:17:[address] [facility] XR CHEST 1 VW 2022-01-11 01:08:26 Mariusz Deluca [facility] XR CHEST 1 VW 2022-01-11 01:08:26 Mariusz Deluca [facility] EKG-12 LEAD 2022-01-11 00:56:11 Mariusz Deluca [facility] EKG-12 LEAD 2022-01-11 00:56:11 Mariusz Deluca [facility] NOTICE OF PRIVACY 2022-01-11 00:40:55 Doctor Unassigned, [facility] PRACTICES [place] [facility] NOTICE OF PRIVACY 2022-01-11 00:40:55 Doctor Watson [facility] PRACTICES [place] [facility] [place] CONSENT/REFUSAL FOR 2022-01-11 00:39:01 Doctor [facility] DI[facility] TREATMENT [place] [facility] [place] CONSENT/REFUSAL FOR 2022-01-11 00:39:01 Doctor [facility] TREATMENT [place] [facility] [place] HOSPITAL ADMISSION 2022-01-10 06:01:00 Doctor Watson [facility] [place] [facility] [place] HOSPITAL ADMISSION 2022-01-10 06:01:00 Doctor Watson [facility] POCT GLUCOSE (AUTOMATED) 2021-10-01 16:44:00 Payal Ray [facility] POCT GLUCOSE (AUTOMATED) 2021-10-01 12:29:00 Payal Ray [facility] D-DIMER 2021-10-01 09:41:00 Yasmine Jin [facility] PHOSPHORUS 2021-10-01 09:35:00 Payal Ray [facility] MAGNESIUM 2021-10-01 09:35:00 [facility] BASIC METABOLIC PANEL 2021-10-01 09:35:00 Payal Ray [facility] (NA, K, CL, CO2, GLUCOSE, Medica l Branch BUN, CREATININE, CA) CBC WITH DIFF 2021-10-01 09:35:00 Payal Ray [facility] POCT GLUCOSE (AUTOMATED) 2021-10-01 09:00:00 Payal Ray [facility] POCT GLUCOSE (AUTOMATED) 2021-10-01 02:34:00 Payal Ray [facility] ACUTE CARE ARTERIAL BLOOD 2021-09-30 22:39:00 [facility] XR CHEST 1 VW 2021-09-30 21:13:57 Jeanna Wraner [facility] COVID-19 (ID NOW RAPID 2021-09-30 21:01:00 Jeanna [facility] TEST[facility]) [place] HB ECG ROUTINE & RHYTHM 2021-09-30 20:58:15 Jeanna Warner [facility] STRIP Medical Branch TROPONIN I 2021-09-30 20:48:00 Jeanna Warner [facility] COMP. METABOLIC PANEL 2021-09-30 20:48:00 Jeanna Warner [facility] ([id number]) Medical Branch CBC WITH DIFF 2021-09-30 20:48:00 Jeanna Warner [facility] GLYCOSYLATED HEMOGLOBIN 2021-09-30 20:48:00 Mayte Addison [facility] (A1C) [facility] N-TERMINAL PRO-BNP 2021-09-30 20:48:[address] [facility] CONSENT/REFUSAL FOR 2021-09-30 20:16:40 Doctor Shirley [facility] TREATMENT [place] [facility] [place] XR CHEST 1 VW 2021-09-09 03:28:06 Renata Acosta [facility] LIPASE 2021-09-09 02:40:00 Dave [facility] TROPONIN I 2021-09-09 02:40:[address] [facility] COMP. METABOLIC PANEL 2021-09-09 02:40:00 Renata Acosta [facility] ([id number]) [place] CBC WITH DIFF 2021-09-09 02:40:[address] [facility] NOTICE OF PRIVACY 2021-09-09 02:24:29 Doctor Shirley, [facility] PRACTICES [place] [facility] [place] CONSENT/REFUSAL FOR 2021-09-09 02:24:02 Doctor Shirley [facility] TREATMENT [place] [facility] [place] [id number] Ekg W/ At Least 12 2021-08-18 00:00:00 Leads W/ I r Ekg 2020-10-09 00:00:00 Ekg 2020-09-17 00:00:00 CT ANGIOGRAM CHEST 2020-07-27 15:16:[address] [facility] XR CHEST 1 VW 2020-07-27 06:14:[address] [facility] COVID-19 (ID NOW RAPID 2020-07-27 06:10:00 Tamika Vieira [facility] TESTING) Medical Branch LAB ONLY COVID 2020-07-27 06:10:00 Tamika Vieira [facility] INTERPRETATION [facility] TROPONIN I 2020-07-27 06:06:[address] [facility] HEPATIC FUNCTION PANEL 2020-07-27 06:06:00 Tamika Vieira [facility] ([id number]) (ALB,T.PRO,BILI Medical Branch T,BU/BC,ALT,AST,ALK PHOS) BASIC METABOLIC PANEL 2020-07-27 06:06:00 Tamika Vieira [facility] (NA, K, CL, CO2, GLUCOSE, Medica l Branch BUN, CREATININE, CA) CBC WITH DIFF 2020-07-27 06:06:[address] [facility] NOTICE OF PRIVACY 2020-07-27 06:01:19 Doctor Unassigned, [facility]REFUSAL FOR 2020-07-27 05:59:48 [facility] [place] [facility] POCT GLUCOSE (AUTOMATED) 2020-07-14 12:43:00 Miguel Mendoza [facility] POCT GLUCOSE (AUTOMATED) 2020-07-14 01:36:00 Miguel Mendoza [facility] COMP. METABOLIC PANEL 2020-07-12 09:39:00 Carolynn Lopez [facility] ([id number]) Medical Branch CBC WITH DIFF 2020-07-12 09:39:00 Mayte Addison [place] [facility] CT THORAX WO CONTRAST 2020-07-11 18:13:55 Mayte Addison [facility] COMP. METABOLIC PANEL 2020-07-11 09:37:00 Carolynn Lopez [facility] ([id number]) Medical Branch N-TERMINAL PRO-BNP 2020-07-11 09:37:[address] [facility] FREE T3 2020-07-11 09:37:00 Mayte Addison [facility] SPUTUM CULTURE 2020-07-10 12:15:00 Misael rajinder [facility] PNEUMOCOCCAL ANTIGEN 2020-07-10 12:13:00 Mayte Addison [facility] SEDIMENTATION RATE 2020-07-10 09:29:[address] [facility] MAGNESIUM 2020-07-10 09:28:00 Misael [facility] TROPONIN I 2020-07-10 09:28:00 Misael rajinder [facility] COMP. METABOLIC PANEL 2020-07-10 09:28:00 Misael rajinder [facility] ([id number]) [facility] CBC WITH DIFF 2020-07-10 09:28:00 Misael [facility] N-TERMINAL PRO-BNP 2020-07-10 09:28:[address] [facility] MYCOPLASMA PNEUMONIAE 2020-07-09 22:49:00 Mayte Addison [facility] ANTIBODY, IGM [facility] TRANSTHORACIC ECHO (TTE) 2020-07-09 20:36:58 Jaden Medina [facility] ADC,CLC OR LCC ONLY - 2020-07-09 19:51:00 Erika Falcon [facility] INFLUENZA A & B DIRECT [facility] [place] ANTIGEN TROPONIN I 2020-07-09 19:34:00 Misael rajinder [facility] RESPIRATORY PANEL BY PCR 2020-07-09 19:30:00 Carolynn Lopez [facility] URINALYSIS 2020-07-09 10:50:00 Misael rajinder [facility] LEGIONELLA URINARY 2020-07-09 10:50:00 Mayte Addison [facility] ANTIGEN TST [facility] URINE CULTURE 2020-07-09 10:50:00 Misael rajinder [facility] UREA NITROGEN, URINE 2020-07-09 10:50:00 Carolynn Lopez [facility] RANDOM [facility] SODIUM, URINE RANDOM 2020-07-09 10:50:00 Carolynn Lopez [facility] PROTEIN CREAT RATIO URINE 2020-07-09 10:50:00 Carolynn Lopez [facility] RANDOM [facility] PHOSPHORUS 2020-07-09 09:41:00 Misael arjinder [facility] CREATINE KINASE 2020-07-09 09:41:00 Misael [facility] TROPONIN I 2020-07-09 09:41:00 Misael rajinder [facility] FREE T4 2020-07-09 09:41:00 Wallace [facility] THYROID STIMULATING 2020-07-09 09:41:00 Carolynn Lopez [facility] HORMONE [facility] LIPID PANEL ([id number])(TOTAL 2020-07-09 09:41:00 Carolynn Lopez [facility] CHOLESTEROL, [facility] TRIGLYCERIDES, HDL) PROTHROMBIN TIME / INR 2020-07-09 09:41:00 Carolynn Lopez [facility] N-TERMINAL PRO-BNP 2020-07-09 09:41:[address] [facility] PROCALCITONIN 2020-07-09 09:41:00 Carolynn Lopez [facility] HB ECG ROUTINE & RHYTHM 2020-07-09 09:28:10 Carolynn Lopez [facility] MAGNESIUM 2020-07-09 06:49:00 Miguel Mendoza [facility] COMP. METABOLIC PANEL 2020-07-09 06:49:00 Miguel Mendoza [facility] ([id number]) [facility] BLOOD CULTURE SCREEN 2020-07-09 06:32:00 Miguel Mendoza [facility] BLOOD CULTURE SCREEN 2020-07-09 06:31:00 Miguel Mendoza [facility] CRITICAL CARE 2020-07-09 06:04:00 Miguel Mendoza [facility] XR CHEST 1 VW 2020-07-09 05:51:20 Miguel Mendoza [facility] CBC WITH DIFF 2020-07-09 05:51:00 Miguel Mendoza [facility] GLYCOSYLATED HEMOGLOBIN 2020-07-09 05:51:00 Carolynn Lopez [facility] (A1C) Medical Branch COVID-19 (ID NOW RAPID 2020-07-09 05:51:00 Miguel Mendoza [facility] TESTING) Medical Branch LAB ONLY COVID 2020-07-09 05:51:00 Miguel Mendoza [facility] INTERPRETATION [facility] Branch [address] Ecg Routine Ecg 2016-05-05 00:00:00 W/least 12 Lds W/i r Plan of Care Planned Activity Planned Date Details Comments Source Goal Plan of Care Note [code = 53098-9] Goal Plan of Care Note [code = 26553-1] Goal Plan of Care Note [code = 97234-2] Goal Plan of Care Note [code = 49350-8] Goal Plan of Care Note [code = 13794-9] Goal Plan of Care Note [code = 90080-3] Goal Plan of Care Note [code = 48560-3] Goal Plan of Care Note [code = 73607-4] Goal Plan of Care Note [code = 21320-8] Goal Plan of Care Note [code = 30030-9] Goal Plan of Care Note [code = 97736-0] Goal Plan of Care Note [code = 73973-2] Goal Plan of Care Note [code = 95443-8] Goal Plan of Care Note [code = 15388-8] Goal Plan of Care Note [code = 31335-6] Goal Plan of Care Note [code = 68755-1] Goal Plan of Care Note [code = 88161-5] Goal Plan of Care Note [code = 98090-0] Goal Plan of Care Note [code = 73480-8] Goal Plan of Care Note [code = 64385-1] Goal Plan of Care Note [code = 92394-4] Goal Plan of Care Note [code = 01216-1] Goal Plan of Care Note [code = 68713-7] Goal Plan of Care Note [code = 24598-4] Goal Plan of Care Note [code = 52681-6] Goal Plan of Care Note [code = 06563-9] Goal Plan of Care Note [code = 55296-6] Goal Plan of Care Note [code = 09256-1] Goal Plan of Care Note [code = 87708-6] Goal Plan of Care Note [code = 58141-1] Goal Plan of Care Note [code = 32915-0] Goal Plan of Care Note [code = 46435-0] Goal Plan of Care Note [code = 61549-2] Goal Plan of Care Note [code = 58545-3] Goal Plan of Care Note [code = 63110-7] Goal Plan of Care Note [code = 82213-8] Goal Plan of Care Note [code = 64618-4] Goal Plan of Care Note [code = 79324-8] Goal Plan of Care Note [code = 61148-6] Goal Plan of Care Note [code = 03745-9] Goal Plan of Care Note [code = 15662-9] Goal Plan of Care Note [code = 79308-5] Goal Plan of Care Note [code = 57714-8] Goal Plan of Care Note [code = 85821-2] Goal Plan of Care Note [code = 05459-5] Goal Plan of Care Note [code = 11684-7] Goal Plan of Care Note [code = 67096-6] Goal Plan of Care Note [code = 12594-9] Goal Plan of Care Note [code = 08456-6] Goal Plan of Care Note [code = 18357-0] Goal Plan of Care Note [code = 30613-0] Goal Plan of Care Note [code = 25640-9] Goal Plan of Care Note [code = 95437-2] Goal Plan of Care Note [code = 99530-1] Goal Plan of Care Note [code = 02409-3] Goal Plan of Care Note [code = 37489-7] Goal Plan of Care Note [code = 67839-0] Goal Plan of Care Note [code = 51330-3] Goal Plan of Care Note [code = 38279-2] Goal Plan of Care Note [code = 58650-7] Goal Plan of Care Note [code = 86953-8] Goal Plan of Care Note [code = 28199-6] Goal Plan of Care Note [code = 70220-7] Goal Plan of Care Note [code = 22021-7] Goal Plan of Care Note [code = 85630-0] Goal Plan of Care Note [code = 51285-6] Goal Plan of Care Note [code = 22721-8] Goal Plan of Care Note [code = 14759-1] Goal Plan of Care Note [code = 76603-7] Goal Plan of Care Note [code = 31839-3] Goal Plan of Care Note [code = 19794-0] Goal Plan of Care Note [code = 71883-1] Goal Plan of Care Note [code = 08715-4] Goal Plan of Care Note [code = 16843-5] Goal Plan of Care Note [code = 51567-3] Goal Plan of Care Note [code = 86441-8] Goal Plan of Care Note [code = 66031-9] Goal Plan of Care Note [code = 64550-8] Goal Plan of Care Note [code = 87171-1] Goal Plan of Care Note [code = 84592-9] Goal Plan of Care Note [code = 56185-1] Goal Plan of Care Note [code = 04341-7] Goal Plan of Care Note [code = 17962-7] Goal Plan of Care Note [code = 37746-6] Goal Plan of Care Note [code = 13699-7] Goal Plan of Care Note [code = 20206-5] Goal Plan of Care Note [code = 33087-4] Goal Plan of Care Note [code = 26391-5] Goal Plan of Care Note [code = 78185-6] Goal Plan of Care Note [code = 00071-4] Goal Plan of Care Note [code = 93063-0] Goal Plan of Care Note [code = 73549-3] Goal Plan of Care Note [code = 87966-4] Goal Plan of Care Note [code = 97860-6] Goal Plan of Care Note [code = 83000-2] Goal Plan of Care Note [code = 26204-2] Goal Plan of Care Note [code = 28199-3] Goal Plan of Care Note [code = 12509-8] Goal Plan of Care Note [code = 39380-4] Goal Plan of Care Note [code = 67785-4] Goal Plan of Care Note [code = 63720-2] Goal Plan of Care Note [code = 26700-0] Goal Plan of Care Note [code = 04693-3] Goal Plan of Care Note [code = 43426-1] Goal Plan of Care Note [code = 43605-5] Goal Plan of Care Note [code = 29258-8] Goal Plan of Care Note [code = 12058-8] Goal Plan of Care Note [code = 42826-6] Goal Plan of Care Note [code = 02025-9] Goal Plan of Care Note [code = 26794-3] Goal Plan of Care Note [code = 69429-1] Goal Plan of Care Note [code = 24882-9] Goal Plan of Care Note [code = 49371-6] Goal Plan of Care Note [code = 35654-4] Goal Plan of Care Note [code = 40033-3] Goal Plan of Care Note [code = 12828-1] Goal Plan of Care Note [code = 13205-6] Goal Plan of Care Note [code = 12785-9] Goal Plan of Care Note [code = 74731-9] Goal Plan of Care Note [code = 51424-4] Goal Plan of Care Note [code = 14996-3] Goal Plan of Care Note [code = 19118-6] Goal Plan of Care Note [code = 13835-3] Goal Plan of Care Note [code = 94968-6] Goal Plan of Care Note [code = 77713-4] Goal Plan of Care Note [code = 78638-3] Goal Plan of Care Note [code = 67863-5] Goal Plan of Care Note [code = 37369-4] Goal Plan of Care Note [code = 54248-1] Goal Plan of Care Note [code = 89987-6] Goal Plan of Care Note [code = 39194-3] Goal Plan of Care Note [code = 35219-4] Goal Plan of Care Note [code = 24605-9] Goal Plan of Care Note [code = 42553-0] Goal Plan of Care Note [code = 11362-5] Goal Plan of Care Note [code = 94428-5] Goal Plan of Care Note [code = 33098-7] Goal Plan of Care Note [code = 12690-3] Goal Plan of Care Note [code = 31998-2] Goal Plan of Care Note [code = 46601-0] Goal Plan of Care Note [code = 39763-4] Goal Plan of Care Note [code = 85332-9] Goal Plan of Care Note [code = 56779-0] Encounters Start End Encounter Admission Attending Care Care Encounter Source Date/Time Date/Time Type Type Clinicians Facility Department ID 2022-06-22 2022-06-22 Outpatient FRANNY CLAYTON [id number] Franny 15:45:00 15:45:00 STEPHANIE Conte ld 2022-06-03 2022-06-03 Office EILEEN Grimaldo 1.2.203.760 [id number] Univers 13:00:00 13:20:00 Visit Jordan [facility] 350.1.13.10 i ty [place] [id number] [facility] [address] 2022-06-03 2022-06-03 Outpatient R JORDAN GRIMALDO [facility] [id number] Univers 13:00:00 13:00:00 JORDAN GRIMALDO [facility] 2022-06-03 2022-06-03 Orders Doctor LUCIO 1.2.840.114 [id number] [facility] 00:00:00 00:00:00 Only Unassigned, ZEYNEP 350.1.13.10 ity of [place] [facility] 4.2.7.2.686 Kike as [id number] [facility] 009 Branch 2022-05-31 2022-05-31 Outpatient FRANNY BURT [id number] Franny 10:00:00 10:00:00 LUKAS waite 2022-05-30 2022-05-30 Outpatient FRANNY BURT [id number] Franny 00:00:00 00:00:00 LUKAS Banuelosol samy 2022-05-20 2022-05-20 Outpatient FRANNY BURT [id number] Franny 16:15:00 16:15:00 LUKAS Banuelosol samy 2022-05-10 2022-05-10 Transition KARIN Campos 1.2.840.114 [id number] Univers 00:00:00 00:00:00 of Care Rufina MCGREGOR 350.1.13.10 [place] [id number] [facility] 403 Branch 2022-05-09 2022-05-09 Telephone Leila [facility] 1.2.153.802 [id number] Univers 00:00:00 00:00:00 JuniorTHOR terrazas 350.1.13.10 i ty [place] [id number] [address] OFFICE BUILDING 2022-04-28 2022-05-08 Inpatient X DILLANJORDAN [facility] SNS 1 [id number] Univers 23:45:00 16:28:00 JORDAN GRIMALDO [facility] 2022-04-28 2022-05-08 Hospital Shannan BrianNIE 1.2.840.114 [id number] Univers 23:45:00 16:28:00 Encounter Jordan Grimaldo 350.1.13.10 ity of [facility] 4.2.7.2.686 [place]ike [place] [id number] [facility] [address] [place] 2022-05-08 2022-05-08 Telephone Dillan MAALETA 1.2.515.072 [id number] Univers 00:00:00 00:00:00 Jordan HEALTH 350.1.13.10 it [place] [id number] [address] OFFICE BUILDING 2022-05-06 2022-05-06 Surgery ABELARDO GrimaldoNIE 1.2.840.114 [id number] Univers 06:55:00 10:24:00 Jordan ADHIKARI 350.1.13.10 it y of HOSPITAL 4.2.7.2.686 [place] [id number] [facility] 103 [address] 2022-05-05 2022-05-05 Outpatient FRANNY BURT [id number] Franny 08:00:00 08:00:00 LUKAS waite 2022-04-29 2022-04-29 Outpatient FRANNY ALEX [id number] Franny 00:00:00 00:00:00 SAVANNA howard 2022-04-28 2022-04-28 Emergency X SINGER MAALETA ERT [id number] Univers 18:58:00 22:43:00 ALAN mina [facility] 2022-04-28 2022-04-28 Emergency Benjamin, [facility] 1.2.535.751 [id number] Univers 18:58:00 22:43:00 Alan PERES 350.1.13.10 [facility] 4.2.7.2.686 [facility] [id number] [address] 2022-04-27 2022-04-27 Outpatient TOMOGRAPHYFRANNY [id number] Franny 16:05:00 16:05:00 CK Seybol d 2022-04-27 2022-04-27 Outpatient NOCKFRANNY [id number] Franny 15:40:00 15:40:00 SAVANNA Seybo ld 2022-04-22 2022-04-22 Outpatient PREZASFRANNY [id number] Franny 00:00:00 00:00:00 LUKAS Seybol d 2022-04-21 2022-04-21 Outpatient LAB90 FRANNY OLIVER [id number] Franny 08:25:00 08:25:00 Seybol d 2022-04-20 2022-04-20 Outpatient PREZAFRANNY Julian [id number] Franny 09:30:00 09:30:00 LUKAS Seybol d 2022-03-30 2022-03-30 Outpatient HUNDLFRANNY [id number] Franny 09:00:00 09:00:00 BARRY Seybol d 2022-02-15 2022-02-15 Outpatient SFA SFA [id number] Tr 16:07:21 16:07:21 0103 F Jimmie 2022-02-15 2022-02-15 Outpatient [id number]- [id number] 7a [id number] 00:00:00 00:00:00 Visit 5u55-94jz b70-44kv-w -w289-e14 275-c95d0a u1tn4h033 g3q516 2022-02-01 2022-02-01 Outpatient SFA SFA [id number] 022 Tr 17:18:26 17:18:26 1220 F Jimmie 2022-02-01 2022-02-01 Outpatient [id number] [id number] 00:00:00 00:00:00 Visit 4541-4c26 541-4c26-a -i157-664 160-949e17 o82493c9z 928d7f 2022-01-21 2022-01-21 Outpatient [facility] SFA [id number] 022 Tr 17:20:09 17:20:09 1209 F Jimmie 2022-01-21 2022-01-21 Outpatient [id number]- [id number] k678y3-4 00:00:00 00:00:00 Visit 3705-4f8b 705-4f8b-b -bdee-81d darryl-81df38 n099aw3r4 4ca4f7 2022-01-18 2022-01-18 Transition KARIN Gilliam 1.2.840.114 [id number] Univers 00:00:00 00:00:00 of Care Magda MCGREGOR 350.1.13.10 [place] of [place] 4.2.7.2.686 [facility] [id number] [address] 2022-01-10 2022-01-17 [id number] Univers 18:51:00 16:55:[address] [facility] 2022-01-10 2022-01-17 [facility] Mariusz Deluca 1.2.840.1 14 [id number] Univers 18:51:00 16:55:00 Encounter Arnold Laureano 350.1.13.1 0 ity of [facility] 4.2.7.2.686 [place] Jones Phipps [id number] Medical William, Tracie 099 B a[place] 2022-01-12 2022-01-12 Travel 1.2.840.1 1.2.802.324 [id number] Univers 00:00:00 00:00:00 11664.1.1 350.1.13.10 ity of 3[place]104.2.[place] .3.959279 084.8 Medica l .[place] 2022-01-10 2022-01-10 Outpatient X [facility] [id number] Univers 18:51:00 18:51:00 PAVELSamy keeley o f [facility] 2022-01-10 2022-01-10 Travel 1.2.840.1 1.2.719.948 [id number] Univers 00:00:00 00:00:00 30439.1.1 350.1.13.10 ity of 3.104.2.[place] .3.307002 084.8 Medica l .[place] 2021-12-14 2021-12-14 Outpatient SFA SFA [id number] 022 Tr 16:02:46 16:02:46 1101 F Jimmie 2021-09-30 2021-10-01 Outpatient [facility] [id number] Univers 15:27:00 16:00:00 PAYAL mina [facility] 2021-09-30 2021-10-01 Emergency Jeanna Warner S [facility] 1.2.840.1 14 [id number] Univers 15:27:00 16:00:00 Payal Ray 350.1.13.10 ity of [facility] 4.2.7.2.686 [facility] [id number] [facility] [address] [place] 2021-09-23 2021-09-23 Outpatient [id number] 0d [id number] 00:00:00 00:00:00 Visit 22o5-5k93 1w4-9c01-l -pz70-87q u69-00t478 61882z75t 18e56c 2021-09-08 2021-09-09 Emergency [facility] [id number] Univers 21:26:00 01:05:00 RENATA [facility] 2021-09-08 2021-09-09 [facility] 1.2.840.114 [id number] Univers 21:26:00 01:05:00 Renata PERES 350.1.13.10 i ty of [facility] 4.2.7.2.686 [facility] [id number] [facility] 0[address] 2021-08-18 2021-08-18 Outpatient [id number]- [id number] 5b 596ffc-c 00:00:00 00:00:00 Visit p7ig-60x6 1bb-45a6-a -abd4-751 bd4-584924 [id number] b68069 2020-07-29 2020-07-29 Transition Karin Gilliam 1.2.840.114 [id number] Univers 00:00:00 00:00:00 of Care Magda Mcgregor 350.1.13.10 [place] [id number] [facility] [address] 2020-07-27 2020-07-28 Hospital Tamika Vieira [facility] 1.2.84 0.114 [id number] Univers 00:57:00 14:59:00 Encounter Jenaro [facility] 350.1.13.10 ity of [place] 4.2.7.2.686 [facility] [id number] [facility] 110 Branch (CLC) 2020-07-27 2020-07-27 Emergency X ISHA [facility] ERT [id number] Univers 00:57:00 00:57:00 TAMIKA mina [facility] 2020-07-16 2020-07-16 Transition Karin Gilliam 1.2.840.114 [id number] Univers 00:00:00 00:00:00 of Care Magda Mcgregor 350.1.13.10 [place] [id number] [facility] [address] 2020-07-09 2020-07-14 Inpatient X [facility] [id number] Univers 00:23:00 12:00:00 MIGUEL itbárbara [facility] 2020-07-09 2020-07-14 [facility] Miguel Mendoza [facility] 1.2.840. 114 [id number] Univers 00:23:00 12:00:00 Encounter Carolynn Lopez 350.1.13.10 ity of [place] 4.2.7.2.686 [facility] [id number] [facility] 081 Branch Results Test Description Test Time Test Comments Results Result Comments Source POCT GLUCOSE (AUTOMATED) 2022-05-08 13:06:38 Test Item Value Reference Range Interpretation Comme nts POCT GLU (test code = 1418747852) 103 mg/dL 70-110 Lab Interpretation (test code = 49510-9) [facility]2022-05-08 01:55:52 Test Item Value Reference Range Interpretation Comments POCT GLU (test code = 4006862000) 157 mg/dL 70-110 H Lab Interpretation (test code = Abnormal 86146-5) [facility] GLUCOSE (AUTOMATED)2022-05-08 01:34:46 Test Item Value Reference Range Interpretation Comments POCT GLU (test code = 5800737979) 129 mg/dL 70-110 H Lab Interpretation (test code = Abnormal 38093-3) [facility]2022-05-07 22:11:48 Test Item Value Reference Range Interpretation Comments POCT GLU (test code = 7798872215) 165 mg/dL 70-110 H Lab Interpretation (test code = Abnormal 08852-5) [facility]2022-05-07 17:58:28 Test Item Value Reference Range Interpretation Comments POCT GLU (test code = 9048059112) 132 mg/dL 70-110 H Lab Interpretation (test code = Abnormal 10271-1) [facility]2022-05-07 17:58:28 Test Item Value Reference Range Interpretation Comments POCT GLU (test code = 2773248840) 132 mg/dL 70-110 H Lab Interpretation (test code = Abnormal 66842-8) [facility] GLUCOSE (AUTOMATED)2022-05-07 14:43:43 Test Item Value Reference Range Interpretation Comments POCT GLU (test code = 0636612536) 156 mg/dL 70-110 H Lab Interpretation (test code = Abnormal 81379-1) [facility] GLUCOSE (AUTOMATED)2022-05-07 14:43:43 Test Item Value Reference Range Interpretation Comments POCT GLU (test code = 4416398584) 156 mg/dL 70-110 H Lab Interpretation (test code = Abnormal 92696-1) [facility] (NA, K, CL, CO2, GLUCOSE, BUN, CREATININE, CA)2022-05-07 08:45:18 Test Item Value Reference Range Interpretation Comments NA (test code = 140 mmol/L 135-145 5979768604) K (test code = 3.3 mmol/L 3.5-5.0 L 8704222687) CL (test code = 103 mmol/L 98-108 0319828333) CO2 TOTAL (test code = 32 mmol/L 23-31 H 5064116520) AGAP (test code = 5 2-16 7808632210) BUN (test code = 12 mg/dL 7-23 8409709507) GLUCOSE (test code = 153 mg/dL 70-110 H 7509421706) CREATININE (test code = 0.48 mg/dL 0.50-1.04 L 9073324305) CALCIUM (test code = 8.2 mg/dL 8.6-10.6 L 4092663736) eGFR (test code = 141.2 mL/min/1.73m2 8553124339) MARIPOSA (test code = MARIPOSA) Association of [...] tests). Lab Interpretation Abnormal (test code = 26044-1) [facility] METABOLIC PANEL (NA, K, CL, CO2, GLUCOSE, BUN, CREATININE, CA)2022-05-07 08:45:18 Test Item Value Reference Range Interpretation Comments NA (test code = 140 mmol/L 135-145 0939539657) K (test code = 3.3 mmol/L 3.5-5.0 L 2021243914) CL (test code = 103 mmol/L 98-108 6711070416) CO2 TOTAL (test code = 32 mmol/L 23-31 H 9613401486) AGAP (test code = 5 2-16 0817320597) BUN (test code = 12 mg/dL 7-23 9650218819) GLUCOSE (test code = 153 mg/dL 70-110 H 3404090790) CREATININE (test code = 0.48 mg/dL 0.50-1.04 L 7769743039) CALCIUM (test code = 8.2 mg/dL 8.6-10.6 L 8189621888) eGFR (test code = 141.2 mL/min/1.73m2 5330555286) MARIPOSA (test code = MARIPOSA) Association of [...] tests). Lab Interpretation Abnormal (test code = 62912-7) [facility] [place] [place] [id number] 03:43:33 Test Item Value Reference Range Interpretation Comments TROPONIN I (test code = 0.003 ng/mL <=0.034 8653284149) MARIPOSA (test code = MARIPOSA) Reference (Normal) Range (defined by the 99th percentile reference [...] biotin. Lab Interpretation Normal (test code = 53379-8) [facility] [place], [place] [id number] 03:43:33 Test Item Value Reference Range Interpretation Comments TROPONIN I (test code = 0.003 ng/mL <=0.034 4116456700) MARIPOSA (test code = MARIPOSA) Reference (Normal) Range (defined by the 99th percentile reference [...] biotin. Lab Interpretation Normal (test code = 75864-9) [facility] GLUCOSE (AUTOMATED)2022-05-07 01:38:50 Test Item Value Reference Range Interpretation Comments POCT GLU (test code = 3702255929) 156 mg/dL 70-110 H Lab Interpretation (test code = Abnormal 34538-1) [facility] GLUCOSE (AUTOMATED)2022-05-07 01:38:50 Test Item Value Reference Range Interpretation Comments POCT GLU (test code = 6701156763) 156 mg/dL 70-110 H Lab Interpretation (test code = Abnormal 75178-9) [facility] GLUCOSE (AUTOMATED)2022-05-06 23:06:02 Test Item Value Reference Range Interpretation Comments POCT GLU (test code = 3997430221) 138 mg/dL 70-110 H Lab Interpretation (test code = Abnormal 07495-3) [facility] GLUCOSE (AUTOMATED)2022-05-06 23:06:02 Test Item Value Reference Range Interpretation Comments POCT GLU (test code = 3367128127) 138 mg/dL 70-110 H Lab Interpretation (test code = Abnormal 41620-9) [facility] GLUCOSE (AUTOMATED)2022-05-06 17:47:43 Test Item Value Reference Range Interpretation Comments POCT GLU (test code = 6498484908) 126 mg/dL 70-110 H Lab Interpretation (test code = Abnormal 54506-6) [facility] GLUCOSE (AUTOMATED)2022-05-06 17:47:43 Test Item Value Reference Range Interpretation Comments POCT GLU (test code = 2468950867) 126 mg/dL 70-110 H Lab Interpretation (test code = Abnormal 56163-7) [facility] METABOLIC PANEL (NA, K, CL, CO2, GLUCOSE, BUN, CREATININE, CA)2022-05-06 05:40:49 Test Item Value Reference Range Interpretation Comments NA (test code = 139 mmol/L 135-145 2406345318) K (test code = 4.0 mmol/L 3.5-5.0 8027824561) CL (test code = 100 mmol/L 98-108 7276348555) CO2 TOTAL (test code = 32 mmol/L 23-31 H 0853253352) AGAP (test code = 7 2-16 8795716053) BUN (test code = 12 mg/dL 7-23 7939808902) GLUCOSE (test code = 108 mg/dL 70-110 0807819967) CREATININE (test code = 0.47 mg/dL 0.50-1.04 L 7046074977) CALCIUM (test code = 8.9 mg/dL 8.6-10.6 2855934924) eGFR (test code = 144.6 mL/min/1.73m2 0006773409) MARIPOSA (test code = MARIPOSA) Association of [...] tests). Lab Interpretation Abnormal (test code = 17083-6) [facility] METABOLIC PANEL (NA, K, CL, CO2, GLUCOSE, BUN, CREATININE, CA)2022-05-06 05:40:49 Test Item Value Reference Range Interpretation Comments NA (test code = 139 mmol/L 135-145 2764887117) K (test code = 4.0 mmol/L 3.5-5.0 2510563992) CL (test code = 100 mmol/L 98-108 8171776361) CO2 TOTAL (test code = 32 mmol/L 23-31 H 1256408615) AGAP (test code = 7 2-16 4591725881) BUN (test code = 12 mg/dL 7-23 7419934879) GLUCOSE (test code = 108 mg/dL 70-110 4317699909) CREATININE (test code = 0.47 mg/dL 0.50-1.04 L 0030457556) CALCIUM (test code = 8.9 mg/dL 8.6-10.6 1842641404) eGFR (test code = 144.6 mL/min/1.73m2 6923939173) MARIPOSA (test code = MARIPOSA) Association of [...] tests). Lab Interpretation Abnormal (test code = 60704-9) [facility], [id number] 05:37:58 Test Item Value Reference Range Interpretation Comments PREG SERUM (test code Negative = 3004633275) MARIPOSA (test code = MARIPOSA) Less than 10 IU/L. ?If low titer or ectopic is suspected, resubmit specimen in 48-72 hours. [facility], [id number] 05:37:58 Test Item Value Reference Range Interpretation Comments PREG SERUM (test code Negative = 0162978571) MARIPOSA (test code = MARIPOSA) Less than 10 IU/L. ?If low titer or ectopic is suspected, resubmit specimen in 48-72 hours. [facility] [id number] 04:47:02 Test Item Value Reference Range Interpretation Comments APTT Patient (test code = 33 See_Comment [ Automated message] 1413-2) The system [employer] generated this result transmitted ref erence range: 26 - 36 Seconds. The re ference range was not u sed to interpret this result as normal/abnor mal. Lab Interpretation (test Normal code = 53842-6) [facility]Proth[facility] / [id number] 04:47:02 Test Item Value Reference Range Interpretation Comments PROTIME PATIENT (test 12.9 See_Comment H [Auto mated message] code = 5964-2) The system [employer] generated this result transmitted ref erence range: 10.1 - 1 2.6 Seconds. The reference range was not used to int erpret this result as normal/abnormal . INR (test code = 6301-6) 1.2 Nor mal INR <1.1; Warfarin Therap eutic range 2.0 to 3. 0 or 2.5 to 3.5, dep ending upon the indica tions. Lab Interpretation (test Abnormal code = 68459-9) [facility] [id number] 04:47:02 Test Item Value Reference Range Interpretation Comments APTT Patient (test code = 33 See_Comment [ Automated message] 6853-2) The system [employer] generated this result transmitted ref erence range: 26 - 36 Seconds. The re ference range was not u sed to interpret this result as normal/abnor mal. Lab Interpretation (test Normal code = 36338-3) [facility] / [id number] 04:47:02 Test Item Value Reference Range Interpretation Comments PROTIME PATIENT (test 12.9 See_Comment H [Auto mated message] code = 5964-2) The system wh ich generated this result transmitted ref erence range: 10.1 - 1 2.6 Seconds. The reference range was not used to int erpret this result as normal/abnormal . INR (test code = 6301-6) 1.2 Nor mal INR <1.1; Warfarin Therap eutic range 2.0 to 3. 0 or 2.5 to 3.5, dep ending upon the indica tions. Lab Interpretation (test Abnormal code = 78055-0) [facility] [id number] 04:43:00 Test Item Value Reference Range Interpretation Comments WBC (test code = 6.97 See_Comment [Automated 2188-2) message] The sy stem which generated this result transmitted reference range : 4.30 - 11.10 10*3/?L. The reference range was not used to interpret this result as normal/abnormal . RBC (test code = 4.26 See_Comment [Automated 311-8) message] The sy stem which generated this result transmitted reference range : 3.93 - 5.25 10*6/?L. The reference range was not used to interpret this result as normal/abnormal . HGB (test code = 11.3 g/dL 11.6-15.0 L 718-7) HCT (test code = 36.8 % 35.7-45.2 4544-3) MCV (test code = 86.4 fL 80.6-95.5 787-2) MCH (test code = 26.5 pg 25.9-32.8 785-6) MCHC (test code = 30.7 g/dL 31.6-35.1 L 786-4) RDW-SD (test code = 46.7 fL 39.0-49.9 45649-1) RDW-CV (test code = 14.8 % 12.0-15.5 788-0) PLT (test code = 178 See_Comment [Automated 537-3) message] The sy stem which generated this result transmitted reference range : 166 - 358 10*3/ ?L. The reference r palmira was not used to interpret this result as normal/abnormal . MPV (test code = 10.5 fL 9.5-12.9 38912-3) NRBC/100 WBC (test 0.0 See_Comment [Automat ed code = 6926362404) message] The system which generated this result transmitted reference range : 0.0 - 10.0 /100 WBCs. The refer ence range was not u sed to interpret th is result as normal/abnormal . NRBC x10^3 (test code See_Comment [Auto mated = 3789341368) message] The s ystem which generated this result transmitted reference range : 10*3/?L. The reference range was not used to interpret this result as normal/abnormal . GRAN MAT (NEUT) % 69.2 % (test code = 770-8) IMM GRAN % (test code 0.30 % = 4481506210) LYMPH % (test code = 20.7 % 736-9) MONO % (test code = 7.0 % 5905-5) EOS % (test code = 2.4 % 713-8) BASO % (test code = 0.4 % 706-2) GRAN MAT x10^3(ANC) 4.82 10*3/uL 1.88-7.09 (test code = 6885855019) IMM GRAN x10^3 (test 0.00-0.06 code = 0998451889) LYMPH x10^3 (test code 1.44 10*3/uL 1.32-3.29 = 731-0) MONO x10^3 (test code 0.49 10*3/uL 0.33-0.92 = 742-7) EOS x10^3 (test code = 0.17 10*3/uL 0.03-0.39 711-2) BASO x10^3 (test code 0.03 10*3/uL 0.01-0.07 = 704-7) Lab Interpretation Abnormal (test code = 46493-2) [facility] WITH [id number] 04:43:00 Test Item Value Reference Range Interpretation Comments WBC (test code = 6.97 See_Comment [Automated 6690-2) message] The sy stem which generated this result transmitted reference range : 4.30 - 11.10 10*3/?L. The reference range was not used to interpret this result as normal/abnormal . RBC (test code = 4.26 See_Comment [Automated 789-8) message] The sy stem which generated this result transmitted reference range : 3.93 - 5.25 10*6/?L. The reference range was not used to interpret this result as normal/abnormal . HGB (test code = 11.3 g/dL 11.6-15.0 L 718-7) HCT (test code = 36.8 % 35.7-45.2 4544-3) MCV (test code = 86.4 fL 80.6-95.5 787-2) MCH (test code = 26.5 pg 25.9-32.8 785-6) MCHC (test code = 30.7 g/dL 31.6-35.1 L 786-4) RDW-SD (test code = 46.7 fL 39.0-49.9 96909-3) RDW-CV (test code = 14.8 % 12.0-15.5 788-0) PLT (test code = 178 See_Comment [Automated 777-3) message] The sy stem which generated this result transmitted reference range : 166 - 358 10*3/ ?L. The reference r palmira was not used to interpret this result as normal/abnormal . MPV (test code = 10.5 fL 9.5-12.9 35050-4) NRBC/100 WBC (test 0.0 See_Comment [Automat ed code = 6962677829) message] The system which generated this result transmitted reference range : 0.0 - 10.0 /100 WBCs. The refer ence range was not u sed to interpret th is result as normal/abnormal . NRBC x10^3 (test code See_Comment [Auto mated = 9329862396) message] The s ystem which generated this result transmitted reference range : 10*3/?L. The reference range was not used to interpret this result as normal/abnormal . GRAN MAT (NEUT) % 69.2 % (test code = 770-8) IMM GRAN % (test code 0.30 % = 8590486755) LYMPH % (test code = 20.7 % 736-9) MONO % (test code = 7.0 % 5905-5) EOS % (test code = 2.4 % 713-8) BASO % (test code = 0.4 % 706-2) GRAN MAT x10^3(ANC) 4.82 10*3/uL 1.88-7.09 (test code = 1872869166) IMM GRAN x10^3 (test 0.00-0.06 code = 4263678428) LYMPH x10^3 (test code 1.44 10*3/uL 1.32-3.29 = 731-0) MONO x10^3 (test code 0.49 10*3/uL 0.33-0.92 = 742-7) EOS x10^3 (test code = 0.17 10*3/uL 0.03-0.39 711-2) BASO x10^3 (test code 0.03 10*3/uL 0.01-0.07 = 704-7) Lab Interpretation Abnormal (test code = 00278-1) [facility] [id number] 04:35:00 Test Item Value Reference Range Interpretation Comments ABO & RH (test code = 20) O POSITIVE IAT (test code = 1185) Negative [facility] [id number] 04:35:00 Test Item Value Reference Range Interpretation Comments ABO & RH (test code = 20) O POSITIVE IAT (test code = 1185) Negative [facility] GLUCOSE (AUTOMATED)2022-05-06 01:51:07 Test Item Value Reference Range Interpretation Comments POCT GLU (test code = 7103280371) 99 mg/dL 70-110 Lab Interpretation (test code = Normal 25329-5) [facility] GLUCOSE (AUTOMATED)2022-05-06 01:51:07 Test Item Value Reference Range Interpretation Comments POCT GLU (test code = 0125843751) 99 mg/dL 70-110 Lab Interpretation (test code = Normal 07592-1) [facility] GLUCOSE (AUTOMATED)2022-05-05 22:25:45 Test Item Value Reference Range Interpretation Comments POCT GLU (test code = 5168698804) 104 mg/dL 70-110 Lab Interpretation (test code = Normal 28577-1) [facility] GLUCOSE (AUTOMATED)2022-05-05 22:25:45 Test Item Value Reference Range Interpretation Comments POCT GLU (test code = 5751329460) 104 mg/dL 70-110 Lab Interpretation (test code = Normal 25174-9) [facility] GLUCOSE (AUTOMATED)2022-05-05 17:48:07 Test Item Value Reference Range Interpretation Comments POCT GLU (test code = 118 mg/dL 70-110 H Notifi ed Provider [id number]) Lab Interpretation (test Abnormal code = 68254-7) [facility] GLUCOSE (AUTOMATED)2022-05-05 17:48:07 Test Item Value Reference Range Interpretation Comments POCT GLU (test code = 118 mg/dL 70-110 H Notifi ed Provider [id number]) Lab Interpretation (test Abnormal code = 08689-9) [facility] GLUCOSE (AUTOMATED)2022-05-05 12:44:49 Test Item Value Reference Range Interpretation Comments POCT GLU (test code = 106 mg/dL 70-110 Notifi ed Provider [id number]) Lab Interpretation (test Normal code = 77636-8) [facility] GLUCOSE (AUTOMATED)2022-05-05 12:44:49 Test Item Value Reference Range Interpretation Comments POCT GLU (test code = 106 mg/dL 70-110 Notifi ed Provider [id number]) Lab Interpretation (test Normal code = 70260-1) [facility] GLUCOSE (AUTOMATED)2022-05-04 21:54:31 Test Item Value Reference Range Interpretation Comments POCT GLU (test code = 115 mg/dL 70-110 H Notifi ed Provider [id number]) Lab Interpretation (test Abnormal code = 31732-2) [facility] GLUCOSE (AUTOMATED)2022-05-04 21:54:31 Test Item Value Reference Range Interpretation Comments POCT GLU (test code = 115 mg/dL 70-110 H Notifi ed Provider [id number]) Lab Interpretation (test Abnormal code = 48078-5) [facility] GLUCOSE (AUTOMATED)2022-05-04 16:45:44 Test Item Value Reference Range Interpretation Comments POCT GLU (test code = 120 mg/dL 70-110 H Notifi ed Provider [id number]) Lab Interpretation (test Abnormal code = 71158-2) [facility] GLUCOSE (AUTOMATED)2022-05-04 16:45:44 Test Item Value Reference Range Interpretation Comments POCT GLU (test code = 120 mg/dL 70-110 H Notifi ed Provider [id number]) Lab Interpretation (test Abnormal code = 58090-0) [facility] GLUCOSE (AUTOMATED)2022-05-04 12:51:31 Test Item Value Reference Range Interpretation Comments POCT GLU (test code = 116 mg/dL 70-110 H Notifi ed Provider [id number]) Lab Interpretation (test Abnormal code = 98212-4) [facility] GLUCOSE (AUTOMATED)2022-05-04 12:51:31 Test Item Value Reference Range Interpretation Comments POCT GLU (test code = 116 mg/dL 70-110 H Notifi ed Provider [id number]) Lab Interpretation (test Abnormal code = 66490-7) [facility] GLUCOSE (AUTOMATED)2022-05-04 02:01:45 Test Item Value Reference Range Interpretation Comments POCT GLU (test code = 5937264920) 105 mg/dL 70-110 Lab Interpretation (test code = Normal 00941-0) [facility] GLUCOSE (AUTOMATED)2022-05-04 02:01:45 Test Item Value Reference Range Interpretation Comments POCT GLU (test code = 8760805671) 105 mg/dL 70-110 Lab Interpretation (test code = Normal 57497-4) [facility] GLUCOSE (AUTOMATED)2022-05-03 21:13:28 Test Item Value Reference Range Interpretation Comments POCT GLU (test code = 126 mg/dL 70-110 H Notifi ed Provider [id number]) Lab Interpretation (test Abnormal code = 12777-3) [facility] GLUCOSE (AUTOMATED)2022-05-03 21:13:28 Test Item Value Reference Range Interpretation Comments POCT GLU (test code = 126 mg/dL 70-110 H Notifi ed Provider [id number]) Lab Interpretation (test Abnormal code = 26616-2) [facility] GLUCOSE (AUTOMATED)2022-05-03 17:04:57 Test Item Value Reference Range Interpretation Comments POCT GLU (test code = 104 mg/dL 70-110 Notifi ed Provider [id number]) Lab Interpretation (test Normal code = 56358-3) [facility] 17:04:57 Test Item Value Reference Range Interpretation Comments POCT GLU (test code = 104 mg/dL 70-110 Notifi ed Provider [id number]) Lab Interpretation (test Normal code = 50010-0) [facility] 12:40:06 Test Item Value Reference Range Interpretation Comments POCT GLU (test code = 103 mg/dL 70-110 Notifi ed Provider [id number]) Lab Interpretation (test Normal code = 96110-7) [facility] 12:40:06 Test Item Value Reference Range Interpretation Comments POCT GLU (test code = 103 mg/dL 70-110 Notifi ed Provider [id number]) Lab Interpretation (test Normal code = 06916-4) [facility]2022-[facility]-03 02:54:17 Test Item Value Reference Range Interpretation Comments POCT GLU (test code = 1490454974) 106 mg/dL 70-110 Lab Interpretation (test code = Normal 95112-9) [facility]2022-[facility]-03 02:54:17 Test Item Value Reference Range Interpretation Comments POCT GLU (test code = 1312770408) 106 mg/dL 70-110 Lab Interpretation (test code = Normal 34159-0) [facility]2022-05-02 22:11:04 Test Item Value Reference Range Interpretation Comments POCT GLU (test code = 3829232021) 136 mg/dL 70-110 H Lab Interpretation (test code = Abnormal 95144-6) [facility]2022-[facility]-02 22:11:04 Test Item Value Reference Range Interpretation Comments POCT GLU (test code = 6615580502) 136 mg/dL 70-110 H Lab Interpretation (test code = Abnormal 71267-2) [facility] 17:20:00 Test Item Value Reference Range Interpretation Comments POCT GLU (test code = 6853033341) 115 mg/dL 70-110 H Lab Interpretation (test code = Abnormal 26803-6) [facility]2022-[facility]-02 17:20:00 Test Item Value Reference Range Interpretation Comments POCT GLU (test code = 7008349411) 115 mg/dL 70-110 H Lab Interpretation (test code = Abnormal 85327-0) [facility] GLUCOSE (AUTOMATED)2022-05-02 13:31:10 Test Item Value Reference Range Interpretation Comments POCT GLU (test code = 0613661960) 106 mg/dL 70-110 Lab Interpretation (test code = Normal 63487-1) [facility] GLUCOSE (AUTOMATED)2022-05-02 13:31:10 Test Item Value Reference Range Interpretation Comments POCT GLU (test code = 0438963356) 106 mg/dL 70-110 Lab Interpretation (test code = Normal 03950-1) [facility] GLUCOSE (AUTOMATED)2022-05-02 02:07:14 Test Item Value Reference Range Interpretation Comments POCT GLU (test code = 1502832890) 149 mg/dL 70-110 H Lab Interpretation (test code = Abnormal 46930-3) [facility] GLUCOSE (AUTOMATED)2022-05-02 02:07:14 Test Item Value Reference Range Interpretation Comments POCT GLU (test code = 3208323413) 149 mg/dL 70-110 H Lab Interpretation (test code = Abnormal 00529-8) [facility] GLUCOSE (AUTOMATED)2022-05-01 21:53:04 Test Item Value Reference Range Interpretation Comments POCT GLU (test code = 0357769649) 124 mg/dL 70-110 H Lab Interpretation (test code = Abnormal 64094-3) [facility] GLUCOSE (AUTOMATED)2022-05-01 21:53:04 Test Item Value Reference Range Interpretation Comments POCT GLU (test code = 4784892170) 124 mg/dL 70-110 H Lab Interpretation (test code = Abnormal 42159-4) [facility] GLUCOSE (AUTOMATED)2022-05-01 16:49:23 Test Item Value Reference Range Interpretation Comments POCT GLU (test code = 6618782870) 101 mg/dL 70-110 Lab Interpretation (test code = Normal 84927-8) [facility] GLUCOSE (AUTOMATED)2022-05-01 16:49:23 Test Item Value Reference Range Interpretation Comments POCT GLU (test code = 1330069682) 101 mg/dL 70-110 Lab Interpretation (test code = Normal 16285-7) [facility] GLUCOSE (AUTOMATED)2022-05-01 12:48:25 Test Item Value Reference Range Interpretation Comments POCT GLU (test code = 4815989500) 127 mg/dL 70-110 H Lab Interpretation (test code = Abnormal 95608-6) [facility] GLUCOSE (AUTOMATED)2022-05-01 12:48:25 Test Item Value Reference Range Interpretation Comments POCT GLU (test code = 2354880353) 127 mg/dL 70-110 H Lab Interpretation (test code = Abnormal 11901-4) [facility] GLUCOSE (AUTOMATED)2022-05-01 00:26:54 Test Item Value Reference Range Interpretation Comments POCT GLU (test code = 4658684992) 116 mg/dL 70-110 H Lab Interpretation (test code = Abnormal 40833-0) [facility] GLUCOSE (AUTOMATED)2022-05-01 00:26:54 Test Item Value Reference Range Interpretation Comments POCT GLU (test code = 8697870807) 116 mg/dL 70-110 H Lab Interpretation (test code = Abnormal 05493-1) [facility] GLUCOSE (AUTOMATED)2022-04-30 21:41:13 Test Item Value Reference Range Interpretation Comments POCT GLU (test code = 4166123971) 119 mg/dL 70-110 H Lab Interpretation (test code = Abnormal 76394-3) [facility] GLUCOSE (AUTOMATED)2022-04-30 21:41:13 Test Item Value Reference Range Interpretation Comments POCT GLU (test code = 4409215631) 119 mg/dL 70-110 H Lab Interpretation (test code = Abnormal 12684-0) [facility] GLUCOSE (AUTOMATED)2022-04-30 17:26:22 Test Item Value Reference Range Interpretation Comments POCT GLU (test code = 2189791968) 120 mg/dL 70-110 H Lab Interpretation (test code = Abnormal 05109-3) [facility] GLUCOSE (AUTOMATED)2022-04-30 17:26:22 Test Item Value Reference Range Interpretation Comments POCT GLU (test code = 2825484119) 120 mg/dL 70-110 H Lab Interpretation (test code = Abnormal 73980-6) [facility] GLUCOSE (AUTOMATED)2022-04-30 12:58:09 Test Item Value Reference Range Interpretation Comments POCT GLU (test code = 1514979701) 115 mg/dL 70-110 H Lab Interpretation (test code = Abnormal 41694-9) [facility] GLUCOSE (AUTOMATED)2022-04-30 12:58:09 Test Item Value Reference Range Interpretation Comments POCT GLU (test code = 8886875008) 115 mg/dL 70-110 H Lab Interpretation (test code = Abnormal 85222-1) [facility] GLUCOSE (AUTOMATED)2022-04-30 01:44:20 Test Item Value Reference Range Interpretation Comments POCT GLU (test code = 1730183462) 105 mg/dL 70-110 Lab Interpretation (test code = Normal 87246-7) [facility] GLUCOSE (AUTOMATED)2022-04-30 01:44:20 Test Item Value Reference Range Interpretation Comments POCT GLU (test code = 6397578812) 105 mg/dL 70-110 Lab Interpretation (test code = Normal 07407-8) [facility], [id number] 07:19:13 Test Item Value Reference Range Interpretation Comments PREG SERUM (test code Negative = 3439780665) MARIPOSA (test code = MARIPOSA) Less than 10 IU/L. ?If low titer or ectopic is suspected, resubmit specimen in 48-72 hours. [facility], [id number] 07:19:13 Test Item Value Reference Range Interpretation Comments PREG SERUM (test code Negative = 8592626175) MARIPOSA (test code = MARIPOSA) Less than 10 IU/L. ?If low titer or ectopic is suspected, resubmit specimen in 48-72 hours. [facility]GLYCOSYLATED HEMOGLOBIN (A1C)2022-04-29 04:04:26 Test Item Value Reference Range Interpretation Comments HGB A1C (test code = 6.1 % 4.0-5.7 H 4548-4) MARIPOSA (test code = MARIPOSA) Reference RangesNormal: <5.7%Prediabetes: 5.7 - 6.4%Diabetes: > 6.5% Lab Interpretation (test Abnormal code = 31501-9) [facility] CampusSEDIMENTATION [id number] 04:04:16 Test Item Value Reference Range Interpretation Comments ESR (test code = 48 See_Comment H [Automated message] 82549-9) The system [employer] generated this result transmitted ref erence range: 0 - 20 m m/HR. The reference r palmira was not used to interpret this result as normal/abnor mal. Lab Interpretation (test Abnormal code = 01772-2) [facility] CampusTROPONIN [id number] 00:57:38 Test Item Value Reference Range Interpretation Comments TROPONIN I (test code = 0.005 ng/mL <=0.034 9722522061) MARIPOSA (test code = MARIPOSA) Reference (Normal) Range (defined by the 99th percentile reference [...] biotin. Lab Interpretation Normal (test code = 62023-8) [facility] CampusN-TERMINAL [id number] 00:54:19 Test Item Value Reference Range Interpretation Comments NT-proBNP (test code = 53 pg/mL <=125 6021707236) MARIPOSA (test code = MARIPOSA) Biotin has been reported to cause a negative bias, interpret results relative to patient's use of biotin. Lab Interpretation (test Normal code = 70959-7) [facility]MAGNESIUM2023-03-17 00:46:15 Test Item Value Reference Range Interpretation Comments MAGNESIUM (test code = 4686551193) 1.7 mg/dL 1.7-2.4 Lab Interpretation (test code = Normal 61982-4) [facility] CampusCOMP. METABOLIC PANEL (31150)2022-04-29 00:45:55 Test Item Value Reference Range Interpretation Comments NA (test code = 136 mmol/L 135-145 2826873622) K (test code = 5.5 mmol/L 3.5-5.0 H 2361925026) CL (test code = 98 mmol/L 98-108 3994381622) CO2 TOTAL (test code = 28 mmol/L 23-31 2463295621) AGAP (test code = 10 2-16 2869083807) BUN (test code = 12 mg/dL 7-23 3450930527) GLUCOSE (test code = 87 mg/dL 70-110 8489303043) CREATININE (test code = 0.43 mg/dL 0.50-1.04 L 7621284140) TOTAL BILI (test code = 0.8 mg/dL 0.1-1.5 6665589130) CALCIUM (test code = 9.1 mg/dL 8.6-10.6 9454156460) T PROTEIN (test code = 8.8 g/dL 6.3-8.2 H 0795989079) ALBUMIN (test code = 4.5 g/dL 3.5-5.0 9318647885) ALK PHOS (test code = 101 U/L 34-122 5835352374) ALTv (test code = 19 U/L 5-35 1742-6) AST(SGOT) (test code = 34 U/L 13-40 0560940064) eGFR (test code = 160.3 mL/min/1.73m2 7017612171) MARIPOSA (test code = MARIPOSA) Association of [...] tests). Lab Interpretation Abnormal (test code = 54477-7) [facility]IPASE2023-03-17 00:45:39 Test Item Value Reference Range Interpretation Comments LIPASE (test code = 6696472459) 93 U/L 0-220 Lab Interpretation (test code = Normal 29851-6) [facility] CampusPOCT [id number] 00:36:00 Test Item Value Reference Range Interpretation Comments POCT PREG (test code = 1605) negative On board controls acceptable with present C Line (test code = 3574) POCT PREG LOT # (test code = 3575) [id number] POCT PREG TEST DATE (test 07/14/2023 code = 3576) Lab Interpretation (test code = Normal 80554-2) [facility] CampusCBC WITH [id number] 00:32:18 Test Item Value Reference Range Interpretation Comments WBC (test code = 8.20 See_Comment [Automated 1530-2) message] The sy stem which generated this result transmitted reference range : 4.30 - 11.10 10*3/?L. The reference range was not used to interpret this result as normal/abnormal . RBC (test code = 4.73 See_Comment [Automated 548-) message] The sy stem which generated this result transmitted reference range : 3.93 - 5.25 10*6/?L. The reference range was not used to interpret this result as normal/abnormal . HGB (test code = 12.3 g/dL 11.6-15.0 718-7) HCT (test code = 40.0 % 35.7-45.2 4544-3) MCV (test code = 84.6 fL 80.6-95.5 787-2) MCH (test code = 26.0 pg 25.9-32.8 785-6) MCHC (test code = 30.8 g/dL 31.6-35.1 L 786-4) RDW-SD (test code = 45.6 fL 39.0-49.9 26924-0) RDW-CV (test code = 14.7 % 12.0-15.5 788-0) PLT (test code = 221 See_Comment [Automated 777-3) message] The sy stem which generated this result transmitted reference range : 166 - 358 10*3/ ?L. The reference r palmira was not used to interpret this result as normal/abnormal . MPV (test code = 10.1 fL 9.5-12.9 72291-6) NRBC/100 WBC (test 0.0 See_Comment [Automat ed code = 3109604583) message] The system which generated this result transmitted reference range : 0.0 - 10.0 /100 WBCs. The refer ence range was not u sed to interpret th is result as normal/abnormal . NRBC x10^3 (test code See_Comment [Auto mated = 1964573132) message] The s ystem which generated this result transmitted reference range : 10*3/?L. The reference range was not used to interpret this result as normal/abnormal . GRAN MAT (NEUT) % 56.7 % (test code = 770-8) IMM GRAN % (test code 0.20 % = 3761818193) LYMPH % (test code = 29.3 % 736-9) MONO % (test code = 6.7 % 5905-5) EOS % (test code = 6.7 % 713-8) BASO % (test code = 0.4 % 706-2) GRAN MAT x10^3(ANC) 4.65 10*3/uL 1.88-7.09 (test code = 4230413032) IMM GRAN x10^3 (test 0.00-0.06 code = 1363414276) LYMPH x10^3 (test code 2.40 10*3/uL 1.32-3.29 = 731-0) MONO x10^3 (test code 0.55 10*3/uL 0.33-0.92 = 742-7) EOS x10^3 (test code = 0.55 10*3/uL 0.03-0.39 H 711-2) BASO x10^3 (test code 0.03 10*3/uL 0.01-0.07 = 704-7) Lab Interpretation Abnormal (test code = 34529-9) [facility] METABOLIC PANEL (NA, K, CL, CO2, GLUCOSE, BUN, CREATININE, CA)2022-01-16 15:24:17 Test Item Value Reference Range Interpretation Comments NA (test code = 137 mmol/L 135-145 2728800722) K (test code = 4.4 mmol/L 3.5-5.0 0617275378) CL (test code = 100 mmol/L 98-108 0182808393) CO2 TOTAL (test code = 28 mmol/L 23-31 5260001718) AGAP (test code = 2-16 6615732474) BUN (test code = 14 mg/dL 7-23 0598492195) GLUCOSE (test code = 121 mg/dL 70-110 H 0775450899) CREATININE (test code = 0.61 mg/dL 0.50-1.04 9078624486) CALCIUM (test code = 8.7 mg/dL 8.6-10.6 7551295087) eGFR (test code = mL/min/1.73m2 7819195073) MARIPOSA (test code = MARIPOSA) Association of [...] tests). Lab Interpretation Abnormal (test code = 43978-4) [facility] METABOLIC PANEL (NA, K, CL, CO2, GLUCOSE, BUN, CREATININE, CA)2022-01-16 15:24:17 Test Item Value Reference Range Interpretation Comments NA (test code = 137 mmol/L 135-145 5324250381) K (test code = 4.4 mmol/L 3.5-5.0 8192875717) CL (test code = 100 mmol/L 98-108 3404909531) CO2 TOTAL (test code = 28 mmol/L 23-31 7938134331) AGAP (test code = 2-16 1764677214) BUN (test code = 14 mg/dL 7-23 3676298256) GLUCOSE (test code = 121 mg/dL 70-110 H 3771891481) CREATININE (test code = 0.61 mg/dL 0.50-1.04 [id number]) CALCIUM (test code = 8.7 mg/dL 8.6-10.6 2163722814) eGFR (test code = mL/min/1.73m2 8327100556) MARIPOSA (test code = MARIPOSA) Association of [...] tests). Lab Interpretation Abnormal (test code = 02492-0) [facility] GLUCOSE (AUTOMATED)2022-01-15 18:40:12 Test Item Value Reference Range Interpretation Comments POCT GLU (test code = 1673760823) 182 mg/dL 70-110 H Lab Interpretation (test code = Abnormal 98322-2) [facility] GLUCOSE (AUTOMATED)2022-01-15 18:40:12 Test Item Value Reference Range Interpretation Comments POCT GLU (test code = 6605605613) 182 mg/dL 70-110 H Lab Interpretation (test code = Abnormal 58048-4) [facility] [id number] 12:21:06 Test Item Value Reference Range Interpretation Comments PHOSPHORUS (test code = 6921729977) 5.6 mg/dL 2.5-5.0 H Lab Interpretation (test code = Abnormal 26869-1) [facility] GLUCOSE (AUTOMATED)2021-10-01 16:55:39 Test Item Value Reference Range Interpretation Comments POCT GLU (test code = 6609752504) 221 mg/dL 70-110 H Lab Interpretation (test code = Abnormal 16617-7) [facility] GLUCOSE (AUTOMATED)2021-10-01 12:39:20 Test Item Value Reference Range Interpretation Comments POCT GLU (test code = 5682174052) 185 mg/dL 70-110 H Lab Interpretation (test code = Abnormal 65537-4) [facility]esium [id number] 11:06:03 Test Item Value Reference Range Interpretation Comments MAGNESIUM (test code = 6557730989) 2.0 mg/dL 1.7-2.4 Lab Interpretation (test code = Normal 22211-5) [facility] (NA, K, CL, CO2, GLUCOSE, BUN, CREATININE, CA)2021-10-01 11:05:43 Test Item Value Reference Range Interpretation Comments NA (test code = 139 mmol/L 135-145 3120061240) K (test code = 4.5 mmol/L 3.5-5 5288414657) CL (test code = 100 mmol/L 98-108 4637389395) CO2 TOTAL (test code = 33 mmol/L 23-31 H 1594532275) AGAP (test code = 2-16 9156963150) BUN (test code = 11 mg/dL 7-23 9091918441) GLUCOSE (test code = 197 mg/dL 70-110 H 5623453897) CREATININE (test code = 0.42 mg/dL 0.5-1.04 L 0993231508) CALCIUM (test code = 8.8 mg/dL 8.6-10.6 6135125189) eGFR (test code = mL/min/1.73m2 7134831533) MARIPOSA (test code = MARIPOSA) Association of [...] tests). Lab Interpretation Abnormal (test code = 69785-2) [facility] [id number] 11:05:23 Test Item Value Reference Range Interpretation Comments PHOSPHORUS (test code = 4812514407) 3.9 mg/dL 2.5-5 Lab Interpretation (test code = Normal 23891-9) [facility]D-[id number] 11:00:23 Test Item Value Reference Interpretation Comments Range D-DIMER (test code = See_Comment H [Autom ated 8693239589) message] The system which generated this result [...] diagnosis. Lab Interpretation Abnormal (test code = 38615-2) [facility] with [id number] 10:20:16 Test Item Value Reference Range Interpretation [...] (test code = 50.0 fL 39-49.9 H 93364-0) RDW-CV (test code = 15.9 % 12-15.5 H 788-0) PLT (test code = See_Comment [Automated 777-3) message] The sy stem which generated this result transmitted reference range : 166 - 358 10*3/ ?L. The reference r palmira was not used to interpret this result as normal/abnormal . MPV (test code = 10.4 fL 9.5-12.9 23940-7) NRBC/100 WBC (test See_Comment [Automat ed code = 6485606952) message] The system which generated this result transmitted reference range : 0.0 - 10.0 /100 WBCs. The refer ence range was not u sed to interpret th is result as normal/abnormal . NRBC x10^3 (test code See_Comment [Auto mated = 8677975763) message] The s ystem which generated this result transmitted reference range : 10*3/?L. The reference range was not used to interpret this result as normal/abnormal . GRAN MAT (NEUT) % 86.5 % (test code = 770-8) IMM GRAN % (test code 1.80 % = 7363632108) LYMPH % (test code = 9.5 % 736-9) MONO % (test code = 1.9 % 5905-5) EOS % (test code = 0.1 % 713-8) BASO % (test code = 0.2 % 706-2) GRAN MAT x10^3(ANC) 8.33 10*3/uL 1.88-7.09 H (test code = 4208813768) IMM GRAN x10^3 (test 0.17 10*3/uL 0-0.06 H code = 7826418559) LYMPH x10^3 (test code 0.91 10*3/uL 1.32-3.29 L = 731-0) MONO x10^3 (test code 0.18 10*3/uL 0.33-0.92 L = 742-7) EOS x10^3 (test code = 0.03-0.39 L 711-2) BASO x10^3 (test code 0.01-0.07 = 704-7) Lab Interpretation Abnormal (test code = 43926-7) [facility] GLUCOSE (AUTOMATED)2021-10-01 09:03:23 Test Item Value Reference Range Interpretation Comments POCT GLU (test code = 9935945316) 180 mg/dL 70-110 H Lab Interpretation (test code = Abnormal 03534-5) [facility] GLUCOSE (AUTOMATED)2021-10-01 02:44:00 Test Item Value Reference Range Interpretation Comments POCT GLU (test code = 1615486191) 307 mg/dL 70-110 H Lab Interpretation (test code = Abnormal 18571-0) [facility] CampusGlycosylated Hemoglobin (A1C)2021-10-01 01:56:57 Test Item Value Reference Range Interpretation Comments HGB A1C (test code = 7.3 % 4-5.7 H 4548-4) MARIPOSA (test code = MARIPOSA) Reference RangesNormal: <5.7%Prediabetes: 5.7 - 6.4%Diabetes: > 6.5% Lab Interpretation (test Abnormal code = 02864-9) [facility] Arterial Blood Gas.2021-09-30 22:42:07 Test Item Value Reference Range Interpretation Comments PH (test code = 2) 7.35-7.45 PCO2 (test code = See_Comment H [Automate d message] 6419297462) The system [employer] generated this result transmitted ref erence range: 35 - 45 mmHg. The reference r palmira was not used to interpret this result as normal/abnor mal. PO2 (test code = See_Comment [Automated message] 6247153227) The system [employer] generated this result transmitted ref erence range: 80 - 100 mmHg. The reference r palmira was not used to interpret this result as normal/abnor mal. HCO3 (test code = See_Comment H [Automate d message] 8646335616) The system [employer] generated this result transmitted ref erence range: 22 - 26 mEq/L. The reference r palmira was not used to interpret this result as normal/abnor mal. BE (test code = See_Comment [Automated message] 5238458761) The system [employer] generated this result transmitted ref erence range: -3.0 - 3 .0 mEq/L. The refe rence range was not u sed to interpret this result as normal/abnor mal. Lab Interpretation (test Abnormal code = 45178-7) [facility] CampusTROPONIN [id number] 21:29:19 Test Item Value Reference Interpretation Comments Range TROPONIN I (test 0.001 ng/mL See_Comment [Automated code = 4182013529) message] The system which generated this result [...] biotin. Lab Interpretation Normal (test code = 10289-7) [facility]N-TERMINAL [id number] 21:26:16 Test Item Value Reference Range Interpretation Comments NT-proBNP (test code 45 pg/mL See_Comment [Autom ated = 9032816257) message] The system which generated this result transmitted reference range : <=125. The reference range was not used to interpret this result as normal/abnormal . MARIPOSA (test code = MARIPOSA) Biotin has been reported to cause a negative bias, interpret results relative to patient's use of biotin. Lab Interpretation Normal (test code = 72478-0) [facility]. METABOLIC PANEL (01492)2021-09-30 21:18:56 Test Item Value Reference Range Interpretation Comments NA (test code = 139 mmol/L 135-145 7775978547) K (test code = 4.3 mmol/L 3.5-5 6672643020) CL (test code = 99 mmol/L 98-108 2339524737) CO2 TOTAL (test code = 31 mmol/L 23-31 2212380819) AGAP (test code = 2-16 3810015712) BUN (test code = 12 mg/dL 7-23 8497407422) GLUCOSE (test code = 140 mg/dL 70-110 H 6185076495) CREATININE (test code = 0.40 mg/dL 0.5-1.04 L 1092391710) TOTAL BILI (test code = 0.3 mg/dL 0.1-1.5 7417185516) CALCIUM (test code = 9.3 mg/dL 8.6-10.6 0546636850) T PROTEIN (test code = 7.6 g/dL 6.3-8.2 9558037897) ALBUMIN (test code = 4.5 g/dL 3.5-5 5509642872) ALK PHOS (test code = 115 U/L 34-122 0320177304) ALTv (test code = 24 U/L 5-35 1742-6) AST(SGOT) (test code = 26 U/L 13-40 5378009733) eGFR (test code = mL/min/1.73m2 0328242397) MARIPOSA (test code = MARIPOSA) Association of [...] tests). Lab Interpretation Abnormal (test code = 37066-6) [facility] WITH [id number] 21:08:31 Test Item Value Reference Range Interpretation Comments WBC (test code = See_Comment [Automated 8754-2) message] The sy stem which generated this result transmitted reference range : 4.30 - 11.10 10*3/?L. The reference range was not used to interpret this result as normal/abnormal . RBC (test code = See_Comment [Automated 198-8) message] The sy stem which generated this [...] (test code = 50.0 fL 39-49.9 H 30144-4) RDW-CV (test code = 16.0 % 12-15.5 H 788-0) PLT (test code = See_Comment [Automated 777-3) message] The sy stem which generated this result transmitted reference range : 166 - 358 10*3/ ?L. The reference r palmira was not used to interpret this result as normal/abnormal . MPV (test code = 10.3 fL 9.5-12.9 19701-6) NRBC/100 WBC (test See_Comment [Automat ed code = 9485806988) message] The system which generated this result transmitted reference range : 0.0 - 10.0 /100 WBCs. The refer ence range was not u sed to interpret th is result as normal/abnormal . NRBC x10^3 (test code See_Comment [Auto mated = 3266882127) message] The s ystem which generated this result transmitted reference range : 10*3/?L. The reference range was not used to interpret this result as normal/abnormal . GRAN MAT (NEUT) % 67.8 % (test code = 770-8) IMM GRAN % (test code 0.80 % = 1799865144) LYMPH % (test code = 19.8 % 736-9) MONO % (test code = 5.0 % 5905-5) EOS % (test code = 6.1 % 713-8) BASO % (test code = 0.5 % 706-2) GRAN MAT x10^3(ANC) 6.59 10*3/uL 1.88-7.09 (test code = 7669892308) IMM GRAN x10^3 (test 0.08 10*3/uL 0-0.06 H code = 8815054955) LYMPH x10^3 (test code 1.92 10*3/uL 1.32-3.29 = 731-0) MONO x10^3 (test code 0.49 10*3/uL 0.33-0.92 = 742-7) EOS x10^3 (test code = 0.59 10*3/uL 0.03-0.39 H 711-2) BASO x10^3 (test code 0.05 10*3/uL 0.01-0.07 = 704-7) Lab Interpretation Abnormal (test code = 61116-2) [facility] CampusNT-[id number] 05:08:21 Test Item Value Reference Range Interpretation Comments NT-proBNP <50 PG/ML SEE BELOW If NT-ProBNP i s less than 300 (test code = PG/ML, heart fa ilure is unlikely 47942) for allages. Age............ .....Heart Failure Likely <50 Years.......... .>=450 PG/ML 50-75 Years.... .....>=900 PG/ML > 75 Years..... .....>=1800 PG/ML Methodology: [employer] Electrochemilum inescense Immunoassay UNL ESS OTHERWISE INDICATED, ALL TESTING PERFORMED ATCLINICAL PATH OLMem[facility], [facility]. [address] [place] [address] 4 PNEUMATIC TUBE REPAIRER: Anai NICHOLE [id number] CAP ACCREDITATION N O. [id number] 00:00:00 Test Item Value Reference Range Interpretation Comments NT-proBNP (test code = 89100) <50 PG/ML [id number] 00:00:00 Test Item Value Reference Range Interpretation Comments NT-proBNP (test code = 07029) <50 PG/ML [id number] 00:00:00 Test Item Value Reference Range Interpretation Comments NT-proBNP (test code = 68655) <50 PG/ML [id number] 00:00:00 Test Item Value Reference Range Interpretation Comments NT-proBNP (test code = 52778) <50 PG/ML [id number] 00:00:00 Test Item Value Reference Range Interpretation Comments NT-proBNP (test code = 05232) <50 PG/ML [id number] 00:00:00 Test Item Value Reference Range Interpretation Comments NT-proBNP (test code = 55938) <50 PG/ML [id number] 00:00:00 Test Item Value Reference Range Interpretation Comments NT-proBNP (test code = 84563) <50 PG/ML [id number] 00:00:00 Test Item Value Reference Range Interpretation Comments NT-proBNP (test code = 33465) <50 PG/ML [id number] 00:00:00 Test Item Value Reference Range Interpretation Comments NT-proBNP (test code = 82447) <50 PG/ML [id number] 00:00:00 Test Item Value Reference Range Interpretation Comments NT-proBNP (test code = 93718) <50 PG/ML [id number] 00:00:00 Test Item Value Reference Range Interpretation Comments NT-proBNP (test code = 27388) <50 PG/ML [id number] 00:00:00 Test Item Value Reference Range Interpretation Comments NT-proBNP (test code = 33595) <50 PG/ML VITAMIN D, 25 [id number] 05:02:19 Test Item Value Reference Range Interpretation Comments VITAMIN D, 25 OH 13 NG/ML SEE BELOW L NOTE: 25-H YDROXYVITAMIN D (test code = 4958) ASSAY INC LUDES 25-HYDROXYVITAM IN D2 AND D3. METHODOLOGY IS CHEMILUMINESCEN T IMMUNOASSAY. INTERPRETIVE RA NGES PEDIATRIC (<17 YEARS) . . . . . . . . . . . NG/ML 20-100ADULT: I NSUFFICIENT . . . . . . . [...] TESTING PERFORM ED ATCLINICAL PATH OLOGY LABORATORIES, [place] [address] [place] [address] LAB[address] DIRE CTOR: Philip NICHOLE. CLIA NUMBER [id number] CAP ACCREDITATION N O. [id number] VITAMIN D, 25 [id number] 00:00:00 Test Item Value Reference Range Interpretation Comments VITAMIN D, 25 OH (test code = 4958) 13 NG/ML VITAMIN D, 25 [id number] 00:00:00 Test Item Value Reference Range Interpretation Comments VITAMIN D, 25 OH (test code = 4958) 13 NG/ML VITAMIN D, 25 [id number] 00:00:00 Test Item Value Reference Range Interpretation Comments VITAMIN D, 25 OH (test code = 4958) 13 NG/ML VITAMIN D, 25 [id number] 00:00:00 Test Item Value Reference Range Interpretation Comments VITAMIN D, 25 OH (test code = 4958) 13 NG/ML VITAMIN D, 25 [id number] 00:00:00 Test Item Value Reference Range Interpretation Comments VITAMIN D, 25 OH (test code = 4958) 13 NG/ML VITAMIN D, 25 [id number] 00:00:00 Test Item Value Reference Range Interpretation Comments VITAMIN D, 25 OH (test code = 4958) 13 NG/ML VITAMIN D, 25 [id number] 00:00:00 Test Item Value Reference Range Interpretation Comments VITAMIN D, 25 OH (test code = 4958) 13 NG/ML VITAMIN D, 25 [id number] 00:00:00 Test Item Value Reference Range Interpretation Comments VITAMIN D, 25 OH (test code = 4958) 13 NG/ML VITAMIN D, 25 [id number] 00:00:00 Test Item Value Reference Range Interpretation Comments VITAMIN D, 25 OH (test code = 4958) 13 NG/ML TSH, THIRD [id number] 02:31:01 Test Item Value Reference Range Interpretation Comments TSH, THIRD GENERATION (test code 0.564 UIU/ML 0.400-4.100 = 2821) [id number] 00:00:00 Test Item Value Reference Range Interpretation Comments TSH, THIRD GENERATION (test code 0.564 UIU/ML = 2821) [id number] 00:00:00 Test Item Value Reference Range Interpretation Comments TSH, THIRD GENERATION (test code 0.564 UIU/ML = 2821) [id number] 00:00:00 Test Item Value Reference Range Interpretation Comments TSH, THIRD GENERATION (test code 0.564 UIU/ML = 2821) [id number] 00:00:00 Test Item Value Reference Range Interpretation Comments TSH, THIRD GENERATION (test code 0.564 UIU/ML = 2821) [id number] 00:00:00 Test Item Value Reference Range Interpretation Comments TSH, THIRD GENERATION (test code 0.564 UIU/ML = 2821) [id number] 00:00:00 Test Item Value Reference Range Interpretation Comments TSH, THIRD GENERATION (test code 0.564 UIU/ML = 2821) [id number] 00:00:00 Test Item Value Reference Range Interpretation Comments TSH, THIRD GENERATION (test code 0.564 UIU/ML = 2821) [id number] 00:00:00 Test Item Value Reference Range Interpretation Comments TSH, THIRD GENERATION (test code 0.564 UIU/ML = 2821) [id number] 00:00:00 Test Item Value Reference Range Interpretation Comments TSH, THIRD GENERATION (test code 0.564 UIU/ML = 2821) [id number] 00:00:00 Test Item Value Reference Range Interpretation Comments TSH, THIRD GENERATION (test code 0.564 UIU/ML = 2821) [id number] 00:00:00 Test Item Value Reference Range Interpretation Comments TSH, THIRD GENERATION (test code 0.564 UIU/ML = 2821) [id number] 00:00:00 Test Item Value Reference Range Interpretation Comments TSH, THIRD GENERATION (test code 0.564 UIU/ML = 2821) [id number] 00:00:00 Test Item Value Reference Range Interpretation Comments TSH, THIRD GENERATION (test code 0.564 UIU/ML = 2821) [id number] 00:00:00 Test Item Value Reference Range Interpretation Comments TSH, THIRD GENERATION (test code 0.564 UIU/ML = 2821) LIPID [id number] 23:49:04 Test Item Value Reference Range Interpretation [...] MOREINFORMATION , SEE CLIENT ANNOUNCE MENT AT [email or web address] RISK RATIO LDL/HDL 2.21 RATIO <3.22 (test code = 2238) COMPREHENSIVE METABOLIC [id number] 23:49:04 Test Item Value Reference Range Interpretation Comments GLUCOSE (test code = 98 MG/DL 70-99 2216) BUN (test code = 6 MG/DL 6-20 2207) CREATININE (test 0.40 MG/DL 0.60-1.30 L code = 2214) eGFR (2020 CKD-EPI) 126 >60 (test code = 63340) ML/MIN/1.73 CALC BUN/CREAT (test 15 RATIO 6-28 code = 2235) SODIUM (test code = 140 MEQ/L 971-190 7275) POTASSIUM (test code 4.1 MEQ/L 3.5-5.4 = 2227) CHLORIDE (test code 99 MEQ/L 95-107 = 2214) CARBON DIOXIDE (test 26 MEQ/L 19-31 code = 220) CALCIUM (test code = 9.2 MG/DL 8.5-10.5 2208) PROTEIN, TOTAL (test 7.4 G/DL 6.1-8.3 code = 222) ALBUMIN (test code = 4.3 G/DL 3.5-5.2 2200) CALC GLOBULIN (test 3.1 G/DL 1.9-3.7 code = 2240) CALC A/G RATIO (test 1.4 RATIO 1.0-2.6 code = 2234) BILIRUBIN, TOTAL 0.3 MG/DL See_Comment [Automated message] (test code = 220) The syste m which generated this result transmit romero reference range : <=1.2. The refe rence range was not u sed to interpret th is result as normal/abnormal . ALKALINE PHOSPHATASE 118 U/L 40-113 H (test code = 2204) AST (test code = 14 U/L 9-40 2217) ALT (test code = 15 U/L 5-40 2218) HEMOGLOBIN [id number] 04:29:07 Test Item Value Reference Range Interpretation Comments HEMOGLOBIN A1c (test 7.5 % 4.2-5.6 H AMERI CAN DIABETES code = 16546) ASSOCIATION IDELINES FOR HGB A1C: PREDIABETES/INC REASED [...] ATE TESTING OR LABORATORY C ONSULTATION. HEMOGLOBIN [id number] 00:00:00 Test Item Value Reference Range Interpretation Comments HEMOGLOBIN A1c (test code = 85163) 7.5 % HEMOGLOBIN [id number] 00:00:00 Test Item Value Reference Range Interpretation Comments HEMOGLOBIN A1c (test code = 04317) 7.5 % COMPREHENSIVE METABOLIC [id number] 00:00:00 Test Item Value Reference Range Interpretation Comments GLUCOSE (test code = 2217) 98 MG/DL BUN (test code = 2208) 6 MG/DL CREATININE (test code = 2214) 0.40 MG/DL eGFR (2020 CKD-EPI) (test 126 ML/MIN/1.73 code = 97678) CALC BUN/CREAT (test code = 15 RATIO [...] (test code = 2219) 15 U/L LIPID [id number] 00:00:00 Test Item Value Reference Range Interpretation Comments CHOLESTEROL (test code = 2210) 176 MG/DL TRIGLYCERIDES (test code = 2232) 120 MG/DL HDL CHOLESTEROL (test code = 2220) 48 MG/DL CALC LDL CHOL (test code = 2237) 106 MG/DL RISK RATIO LDL/HDL (test code = 2.21 RATIO 2238) LIPID [id number] 00:00:00 Test Item Value Reference Range Interpretation Comments CHOLESTEROL (test code = 2210) 176 MG/DL TRIGLYCERIDES (test code = 2232) 120 MG/DL HDL CHOLESTEROL (test code = 2220) 48 MG/DL CALC LDL CHOL (test code = 2237) 106 MG/DL RISK RATIO LDL/HDL (test code = 2.21 RATIO 2238) HEMOGLOBIN [id number] 00:00:00 Test Item Value Reference Range Interpretation Comments HEMOGLOBIN A1c (test code = 94844) 7.5 % HEMOGLOBIN [id number] 00:00:00 Test Item Value Reference Range Interpretation Comments HEMOGLOBIN A1c (test code = 98716) 7.5 % HEMOGLOBIN [id number] 00:00:00 Test Item Value Reference Range Interpretation Comments HEMOGLOBIN A1c (test code = 45421) 7.5 % COMPREHENSIVE METABOLIC [id number] 00:00:00 Test Item Value Reference Range Interpretation Comments GLUCOSE (test code = 2217) 98 MG/DL BUN (test code = 2208) 6 MG/DL CREATININE (test code = 2214) 0.40 MG/DL eGFR (2020 CKD-EPI) (test 126 ML/MIN/1.73 code = 30393) CALC BUN/CREAT (test code = 15 RATIO [...] code = 2219) 15 U/L COMPREHENSIVE METABOLIC [id number] 00:00:00 Test Item Value Reference Range Interpretation Comments GLUCOSE (test code = 2217) 98 MG/DL BUN (test code = 2208) 6 MG/DL CREATININE (test code = 2214) 0.40 MG/DL eGFR (2020 CKD-EPI) (test 126 ML/MIN/1.73 code = 78747) CALC BUN/CREAT (test code = 15 RATIO [...] (test code = 2219) 15 U/L LIPID [id number] 00:00:00 Test Item Value Reference Range Interpretation Comments CHOLESTEROL (test code = 2210) 176 MG/DL TRIGLYCERIDES (test code = 2232) 120 MG/DL HDL CHOLESTEROL (test code = 2220) 48 MG/DL CALC LDL CHOL (test code = 2237) 106 MG/DL RISK RATIO LDL/HDL (test code = 2.21 RATIO 2238) LIPID [id number] 00:00:00 Test Item Value Reference Range Interpretation Comments CHOLESTEROL (test code = 2210) 176 MG/DL TRIGLYCERIDES (test code = 2232) 120 MG/DL HDL CHOLESTEROL (test code = 2220) 48 MG/DL CALC LDL CHOL (test code = 2237) 106 MG/DL RISK RATIO LDL/HDL (test code = 2.21 RATIO 2238) HEMOGLOBIN [id number] 00:00:00 Test Item Value Reference Range Interpretation Comments HEMOGLOBIN A1c (test code = 96305) 7.5 % HEMOGLOBIN [id number] 00:00:00 Test Item Value Reference Range Interpretation Comments HEMOGLOBIN A1c (test code = 83827) 7.5 % HEMOGLOBIN [id number] 00:00:00 Test Item Value Reference Range Interpretation Comments HEMOGLOBIN A1c (test code = 94370) 7.5 % COMPREHENSIVE METABOLIC [id number] 00:00:00 Test Item Value Reference Range Interpretation Comments GLUCOSE (test code = 2217) 98 MG/DL BUN (test code = 2208) 6 MG/DL CREATININE (test code = 2214) 0.40 MG/DL eGFR (2020 CKD-EPI) (test 126 ML/MIN/1.73 code = 27848) CALC BUN/CREAT (test code = 15 RATIO [...] code = 2219) 15 U/L COMPREHENSIVE METABOLIC [id number] 00:00:00 Test Item Value Reference Range Interpretation Comments GLUCOSE (test code = 2217) 98 MG/DL BUN (test code = 2208) 6 MG/DL CREATININE (test code = 2214) 0.40 MG/DL eGFR (2020 CKD-EPI) (test 126 ML/MIN/1.73 code = 90921) CALC BUN/CREAT (test code = 15 RATIO [...] (test code = 2219) 15 U/L LIPID [id number] 00:00:00 Test Item Value Reference Range Interpretation Comments CHOLESTEROL (test code = 2210) 176 MG/DL TRIGLYCERIDES (test code = 2232) 120 MG/DL HDL CHOLESTEROL (test code = 2220) 48 MG/DL CALC LDL CHOL (test code = 2237) 106 MG/DL RISK RATIO LDL/HDL (test code = 2.21 RATIO 2238) LIPID [id number] 00:00:00 Test Item Value Reference Range Interpretation Comments CHOLESTEROL (test code = 2210) 176 MG/DL TRIGLYCERIDES (test code = 2232) 120 MG/DL HDL CHOLESTEROL (test code = 2220) 48 MG/DL CALC LDL CHOL (test code = 2237) 106 MG/DL RISK RATIO LDL/HDL (test code = 2.21 RATIO 2238) HEMOGLOBIN [id number] 00:00:00 Test Item Value Reference Range Interpretation Comments HEMOGLOBIN A1c (test code = 86795) 7.5 % HEMOGLOBIN [id number] 00:00:00 Test Item Value Reference Range Interpretation Comments HEMOGLOBIN A1c (test code = 92398) 7.5 % HEMOGLOBIN [id number] 00:00:00 Test Item Value Reference Range Interpretation Comments HEMOGLOBIN A1c (test code = 43865) 7.5 % COMPREHENSIVE METABOLIC [id number] 00:00:00 Test Item Value Reference Range Interpretation Comments GLUCOSE (test code = 2217) 98 MG/DL BUN (test code = 2208) 6 MG/DL CREATININE (test code = 2214) 0.40 MG/DL eGFR (2020 CKD-EPI) (test 126 ML/MIN/1.73 code = 37659) CALC BUN/CREAT (test code = 15 RATIO [...] code = 2219) 15 U/L COMPREHENSIVE METABOLIC [id number] 00:00:00 Test Item Value Reference Range Interpretation Comments GLUCOSE (test code = 2217) 98 MG/DL BUN (test code = 2208) 6 MG/DL CREATININE (test code = 2214) 0.40 MG/DL eGFR (2020 CKD-EPI) (test 126 ML/MIN/1.73 code = 64748) CALC BUN/CREAT (test code = 15 RATIO [...] (test code = 2219) 15 U/L LIPID [id number] 00:00:00 Test Item Value Reference Range Interpretation Comments CHOLESTEROL (test code = 2210) 176 MG/DL TRIGLYCERIDES (test code = 2232) 120 MG/DL HDL CHOLESTEROL (test code = 2220) 48 MG/DL CALC LDL CHOL (test code = 2237) 106 MG/DL RISK RATIO LDL/HDL (test code = 2.21 RATIO 2238) LIPID [id number] 00:00:00 Test Item Value Reference Range Interpretation Comments CHOLESTEROL (test code = 2210) 176 MG/DL TRIGLYCERIDES (test code = 2232) 120 MG/DL HDL CHOLESTEROL (test code = 2220) 48 MG/DL CALC LDL CHOL (test code = 2237) 106 MG/DL RISK RATIO LDL/HDL (test code = 2.21 RATIO 2238) HEMOGLOBIN [id number] 00:00:00 Test Item Value Reference Range Interpretation Comments HEMOGLOBIN A1c (test code = 23030) 7.5 % HEMOGLOBIN [id number] 00:00:00 Test Item Value Reference Range Interpretation Comments HEMOGLOBIN A1c (test code = 22756) 7.5 % HEMOGLOBIN [id number] 00:00:00 Test Item Value Reference Range Interpretation Comments HEMOGLOBIN A1c (test code = 05826) 7.5 % COMPREHENSIVE METABOLIC [id number] 00:00:00 Test Item Value Reference Range Interpretation Comments GLUCOSE (test code = 2217) 98 MG/DL BUN (test code = 2208) 6 MG/DL CREATININE (test code = 2214) 0.40 MG/DL eGFR (2020 CKD-EPI) (test 126 ML/MIN/1.73 code = 21413) CALC BUN/CREAT (test code = 15 RATIO [...] code = 2219) 15 U/L COMPREHENSIVE METABOLIC [id number] 00:00:00 Test Item Value Reference Range Interpretation Comments GLUCOSE (test code = 2217) 98 MG/DL BUN (test code = 2208) 6 MG/DL CREATININE (test code = 2214) 0.40 MG/DL eGFR (2020 CKD-EPI) (test 126 ML/MIN/1.73 code = 97874) CALC BUN/CREAT (test code = 15 RATIO [...] (test code = 2219) 15 U/L LIPID [id number] 00:00:00 Test Item Value Reference Range Interpretation Comments CHOLESTEROL (test code = 2210) 176 MG/DL TRIGLYCERIDES (test code = 2232) 120 MG/DL HDL CHOLESTEROL (test code = 2220) 48 MG/DL CALC LDL CHOL (test code = 2237) 106 MG/DL RISK RATIO LDL/HDL (test code = 2.21 RATIO 2238) LAB ONLY COVID [id number] 18:13:05COVID DMT InterpretationInterpretation/Recommendations: Molecular NAAT Tests for [...] COVID-19 testing the patient has had at [facility], including molecular NAAT testing (more commonly known as PCR testing and Rapid ID Now testing) and antibody testing. It does not take into account any testingthat a patient has had outside of the [facility] medical record. [facility] LABORATORY SERVICESCOVID HfjpxlaWBTS-RkS-4 Rapid ID NOW (no units) ? ? Date ? Value ? 07/27/2020 ? Not Detected ? ? ? 07/09/2020 ? Not Detected ? [facility] [place] [facility] ANGIOGRAM [id number] 16:35:58CT SCAN OF THE CHEST WITH CONTRAST [...] edema orsmall airway disease should be considered. [place], Radiant Results Inft User - 07/27/2020 11:37 [...] pulmonary edema orsmall airway disease should be considered.[facility] [id number] 06:49:36 Test Item Value Reference Range Interpretation Comments TROPONIN I (test 0.004 ng/mL See_Comment [Automated code = 7631865060) message] The system which generated this result [...] ? Lab Interpretation Normal (test code = 88066-7) [facility] (NA, K, CL, CO2, GLUCOSE, BUN, CREATININE, CA)2020-07-27 06:39:54 Test Item Value Reference Range Interpretation Comments NA (test code = 138 mmol/L 135-145 3715965355) K (test code = 4.2 mmol/L 3.5-5.0 3260089484) CL (test code = 100 mmol/L 98-108 5850991081) CO2 TOTAL (test code = 31 mmol/L 23-31 5700253638) AGAP (test code = 2-16 4880550733) BUN (test code = 18 mg/dL 7-23 0352789674) GLUCOSE (test code = 162 mg/dL 70-110 H 0954475530) CREATININE (test code = 0.57 mg/dL 0.50-1.04 7575624076) CALCIUM (test code = 9.3 mg/dL 8.6-10.6 7684299713) eGFR (test code = mL/min/1.73m2 4005156250) MARIPOSA (test code = MARIPOSA) Association of [...] tests). Lab Interpretation Abnormal (test code = 97648-8) [facility] CampusHepatic Function Panel (ALB, T.PRO, BILI T, BU/BC, ALT, AST, ALK PHOS)2020-07-27 06:39:34 Test Item Value Reference Range Interpretation Comments TOTAL BILI (test code = 0450180834) 0.3 mg/dL 0.1-1.1 BILI UNCON (test code = 6009969460) 0.1 mg/dL 0.1-1.1 BILI CONJ (test code = 2062074177) 0.0 mg/dL 0.0-0.3 T PROTEIN (test code = 8733604739) 8.1 g/dL 6.3-8.2 ALBUMIN (test code = 2794196620) 4.3 g/dL 3.5-5.0 ALK PHOS (test code = 4950559881) 114 U/L 34-122 ALTv (test code = 1742-6) 22 U/L 5-35 AST(SGOT) (test code = 2220635686) 23 U/L 13-40 Lab Interpretation (test code = Normal 87079-5) [facility]COVID[facility] (ID NOW RAPID TESTING)2020-07-27 06:39:33 Test Item Value Reference Range Interpretation Comments SARS-CoV-2 Rapid ID NOW Not Detected Not Detected (test code = 79318-2) MARIPOSA (test code = MARIPOSA) ID NOW COVID-19 Assay is an isothermal nucleic acid amplification test intended for the qualitative detection of nucleic acid from SARS-CoV-2 viral RNA in nasopharyngeal ([employer]) specimens. It is used under Emergency [...] indicated. Lab Interpretation Normal (test code = 05645-9) [facility] 1 [id number] 06:38:34 No acute cardiopulmonary disease. RL: 3726AFC: 89230 END OF REPORT ORDERING PHYSICIAN: ISHA LOERA [...] structures areunremarkable. IMPRESSIONNo acute cardiopulmonary disease.RL: 3726AFC: 55287JOJ OF [facility] [id number] 06:24:36 Test Item Value Reference Range Interpretation Comments WBC (test code = See_Comment [Automated 1491-2) message] The sy stem which generated this result transmitted reference range : 4.30 - 11.10 10*3/?L. The reference range was not used to interpret this result as normal/abnormal . RBC (test code = See_Comment [Automated 059-8) message] The sy stem which generated this [...] RDW-SD (test code = 49.0 fL 39.0-49.9 97891-4) RDW-CV (test code = 15.2 % 12.0-15.5 788-0) PLT (test code = See_Comment [Automated 587-3) message] The sy stem which generated this result transmitted reference range : 166 - 358 10*3/ ?L. The reference r palmira was not used to interpret this result as normal/abnormal . MPV (test code = 10.7 fL 9.5-12.9 69996-8) NRBC/100 WBC (test See_Comment [Automat ed code = 6198482113) message] The system which generated this result transmitted reference range : 0.0 - 10.0 /100 WBCs. The refer ence range was not u sed to interpret th is result as normal/abnormal . NRBC x10^3 (test code <0.01 See_Comment [Auto mated = 6336319155) message] The s ystem which generated this result transmitted reference range : 10*3/?L. The reference range was not used to interpret this result as normal/abnormal . GRAN MAT (NEUT) % 67.2 % (test code = 770-8) IMM GRAN % (test code 0.60 % = 0273045404) LYMPH % (test code = 21.7 % 736-9) MONO % (test code = 3.3 % 5905-5) EOS % (test code = 6.6 % 713-8) BASO % (test code = 0.6 % 706-2) GRAN MAT x10^3(ANC) 7.05 10*3/uL 1.88-7.09 (test code = 4842015919) IMM GRAN x10^3 (test 0.06 10*3/uL 0.00-0.06 code = 8923794546) LYMPH x10^3 (test code 2.28 10*3/uL 1.32-3.29 = 731-0) MONO x10^3 (test code 0.35 10*3/uL 0.33-0.92 = 742-7) EOS x10^3 (test code = 0.69 10*3/uL 0.03-0.39 H 711-2) BASO x10^3 (test code 0.06 10*3/uL 0.01-0.07 = 704-7) Lab Interpretation Abnormal (test code = 32212-7) [facility] CampusPOCT GLUCOSE (AUTOMATED)2020-07-14 13:01:17 Test Item Value Reference Range Interpretation Comments POCT GLU (test code = 7417141520) 107 mg/dL 70-110 Lab Interpretation (test code = Normal 34584-9) [facility] CampusBLOOD CULTURE [id number] 07:01:06 Test Item Value Reference Range Interpretation Comments Blood Culture-Aerobic No organisms No growth Previo us (test code = 86096-1) isolated prelim inary verified result was Culture In Progress on 07/09/2020 at 05 CDTPrevious preliminary verified result was No growth a t 24 hours on 07/10/2020 at 02 CDTPrevious preliminary verified result was No growth a t 48 hours on 07/11/2020 at 02 CDTPrevious preliminary verified result was No growth a t 72 hours on 07/12/2020 at 02 CDT Blood No organisms No growth Previous Culture-Anaerobic isolated preliminar y (test code = 59363-3) verifi ed result was Culture In Progress [...] CDT Lab Interpretation Normal (test code = 02107-5) [facility] CampusBLOOD CULTURE [id number] 07:01:05 Test Item Value Reference Range Interpretation Comments Blood Culture-Aerobic No organisms No growth Previo us (test code = 59866-1) isolated prelim inary verified result was Culture [...] Culture-Anaerobic isolated preliminar y (test code = 87795-6) verifi ed result was Culture In Progress on 07/09/2020 at 05 CDTPrevious preliminary verified result was No growth a t 24 hours on 07/10/2020 at 02 CDTPrevious preliminary verified result was No growth a t 48 hours on 07/11/2020 at 02 CDTPrevious preliminary verified result was No growth a t 72 hours on 07/12/2020 at 02 01 CDT Lab Interpretation Normal (test code = 66944-3) [facility]POCT GLUCOSE (AUTOMATED)2020-07-14 02:02:19 Test Item Value Reference Range Interpretation Comments POCT GLU (test code = 0790597746) 281 mg/dL 70-110 H Lab Interpretation (test code = Abnormal 96001-4) [facility] CampusMYCOPLASMA PNEUMONIAE ANTIBODY, [id number] 22:06:07 Test Item Value Reference Range Interpretation [...] an 12 months post-infection. Performed By: [facility] [place] [id number] aboratory Director: Lisbet Odom MD [Aut omated message] The sy stem which generated this result transmit romero reference range : <=0.76. The reference r palmira was not used to int erpret this result as normal/abnormal . [facility] CampusSPUTUM [id number] 16:48:41 Test Item Value Reference Range Interpretation Comments SPUTUM CULTURE 2+ Respiratory santhosh: (test code = 622-1) Commensal upper respiratory microorganisms only. Gram stain (test Few Epithelial cells code = 664-3) present MARIPOSA (test code = Bacterial pathogens MARIPOSA) associated with lower respiratory infections were not identified, which include Pseudomonas aeruginosa and Staphylococcus aureus (MRSA or MSSA). [facility]. METABOLIC PANEL (40740)2020-07-12 11:23:13 Test Item Value Reference Range Interpretation Comments NA (test code = 137 mmol/L 135-145 6601803221) K (test code = 4.9 mmol/L 3.5-5.0 9290053563) CL (test code = 96 mmol/L 98-108 L 2935822422) CO2 TOTAL (test code = 33 mmol/L 23-31 H 2214413412) AGAP (test code = 2-16 6313871312) BUN (test code = 13 mg/dL 7-23 5309903944) GLUCOSE (test code = 172 mg/dL 70-110 H 3204434845) CREATININE (test code = 0.40 mg/dL 0.50-1.04 L 5445459686) TOTAL BILI (test code = 0.5 mg/dL 0.1-1.2 0639570799) CALCIUM (test code = 9.4 mg/dL 8.6-10.6 3386001563) T PROTEIN (test code = 7.8 g/dL 6.3-8.2 4443550657) ALBUMIN (test code = 4.2 g/dL 3.5-5.0 4198991745) ALK PHOS (test code = 97 U/L 34-122 7304349980) ALTv (test code = 27 U/L 5-35 1742-6) AST(SGOT) (test code = 22 U/L 13-40 5352979395) eGFR (test code = mL/min/1.73m2 1110948996) MARIPSOA (test code = MARIPOSA) Association of Glomerular [...] tests). Lab Interpretation Abnormal (test code = 70121-5) [facility] WITH [id number] 11:03:13 Test Item Value Reference Range Interpretation Comments WBC (test code = See_Comment [Automated 9667-2) message] The sy stem which generated this result transmitted reference range : 4.30 - 11.10 10*3/?L. The reference range was not used to interpret this result as normal/abnormal . RBC (test code = See_Comment [Automated 528-8) message] The sy stem which generated this [...] RDW-SD (test code = 47.8 fL 39.0-49.9 11536-7) RDW-CV (test code = 14.9 % 12.0-15.5 788-0) PLT (test code = See_Comment [Automated 777-3) message] The sy stem which generated this result transmitted reference range : 166 - 358 10*3/ ?L. The reference r palmira was not used to interpret this result as normal/abnormal . MPV (test code = 10.8 fL 9.5-12.9 51894-8) NRBC/100 WBC (test See_Comment [Automat ed code = 0969161229) message] The system which generated this result transmitted reference range : 0.0 - 10.0 /100 WBCs. The refer ence range was not u sed to interpret th is result as normal/abnormal . NRBC x10^3 (test code <0.01 See_Comment [Auto mated = 4805114996) message] The s ystem which generated this result transmitted reference range : 10*3/?L. The reference range was not used to interpret this result as normal/abnormal . GRAN MAT (NEUT) % 87.7 % (test code = 770-8) IMM GRAN % (test code 1.60 % = 3084750065) LYMPH % (test code = 9.0 % 736-9) MONO % (test code = 1.4 % 5905-5) EOS % (test code = 0.1 % 713-8) BASO % (test code = 0.2 % 706-2) GRAN MAT x10^3(ANC) 8.92 10*3/uL 1.88-7.09 H (test code = 6514449834) IMM GRAN x10^3 (test 0.16 10*3/uL 0.00-0.06 H code = 0601510069) LYMPH x10^3 (test code 0.92 10*3/uL 1.32-3.29 L = 731-0) MONO x10^3 (test code 0.14 10*3/uL 0.33-0.92 L = 742-7) EOS x10^3 (test code = <0.03 0.03-0.39 L 711-2) BASO x10^3 (test code <0.03 0.01-0.07 = 704-7) Lab Interpretation Abnormal (test code = 40105-5) [facility] CampusCT THORAX WO [id number] 22:18:13 Patchy groundglass opacities in the bilateral lungs with more confluentconsolidative opacities in the right lower lobe, consistent with multifocalatypical pneumonia. No pleural effusion or abscess. RL: 4131AFC: 83564 End of report RING PHYSICIAN: MAYTE ADDISON [...] upper abdomen is normal. Osseous structuresare normal. [place], Radiant Results Inft User - 07/11/2020 5:19 [...] pneumonia. No pleural effusion or abscess.RL: 4131AFC: 99195Qjh of [facility] [id number] 21:45:45 Test Item Value Reference Range Interpretation Comments FREE T4 (test code = See_Comment [Autom ated message] 0960654750) The system [employer] generated this result transmitted ref erence range: 0.78 - 2 .20 ng/dL:. The ref erence range was not u sed to interpret this result as normal/abnor mal. Lab Interpretation (test Normal code = 02201-1) [facility] [id number] 21:44:29 Test Item Value Reference Range Interpretation Comments FREE T3 (test code = 8689737183) 3.01 pg/mL 2.77-5.27 Lab Interpretation (test code = Normal 11798-6) [facility] CampusN-TERMINAL [id number] 10:51:09 Test Item Value Reference Range Interpretation Comments NT-proBNP (test code 38 pg/mL See_Comment [Autom ated = 3290337623) message] The system which generated this result transmitted reference range : <=125. The reference range was not used to interpret this result as normal/abnormal . MARIPOSA (test code = MARIPOSA) Biotin has been reported to cause a negative bias, interpret results relative to patient's use of biotin. Lab Interpretation Normal (test code = 84541-8) [facility] METABOLIC PANEL (46921)2020-07-11 10:42:50 Test Item Value Reference Range Interpretation Comments NA (test code = 138 mmol/L 135-145 4821735888) K (test code = 4.5 mmol/L 3.5-5.0 8840575288) CL (test code = 101 mmol/L 98-108 1675471116) CO2 TOTAL (test code = 31 mmol/L 23-31 5643520825) AGAP (test code = 2-16 0673091868) BUN (test code = 15 mg/dL 7-23 1321859602) GLUCOSE (test code = 100 mg/dL 70-110 0167194983) CREATININE (test code = 0.46 mg/dL 0.50-1.04 L 1244218253) TOTAL BILI (test code = 0.5 mg/dL 0.1-1.6 5755076162) CALCIUM (test code = 8.9 mg/dL 8.6-10.6 9422581242) T PROTEIN (test code = 7.1 g/dL 6.3-8.2 2555205247) ALBUMIN (test code = 3.9 g/dL 3.5-5.0 3486680354) ALK PHOS (test code = 80 U/L 34-122 9232246342) ALTv (test code = 19 U/L 5-35 2-6) AST(SGOT) (test code = 32 U/L 13-40 0910610843) eGFR (test code = mL/min/1.73m2 2559928412) MARIPOSA (test code = MARIPOSA) Association of [...] tests). Lab Interpretation Abnormal (test code = 50139-9) [facility] CampusPNEUMOCOCCAL [id number] 18:45:00 Test Item Value Reference Range Interpretation Comments S. pneumoniae antigen (test code = Negative Negative 0851799850) Lab Interpretation (test code = Normal 09524-8) [facility] CampusURINE [id number] 13:39:03 Test Item Value Reference Range Interpretation Comments URINE CULTURE (test No aerobic growth (< code = 630-4) 1000 CFU/mL) [facility] CampusSEDIMENTATION [id number] 11:16:54 Test Item Value Reference Range Interpretation Comments ESR (test code = See_Comment H [Automated message] 9286201585) The system [employer] generated this result transmitted ref erence range: 0 - 20 m m/HR. The reference r palmira was not used to interpret this result as normal/abnor mal. Lab Interpretation (test Abnormal code = 60425-1) [facility] CampusTROPONIN [id number] 10:13:54 Test Item Value Reference Range Interpretation Comments TROPONIN I (test 0.001 ng/mL See_Comment [Automated code = 0202356111) message] The system which generated this result [...] ? Lab Interpretation Normal (test code = 16060-3) [facility] CampusN-TERMINAL [id number] 10:11:17 Test Item Value Reference Range Interpretation Comments NT-proBNP (test code 76 pg/mL See_Comment [Autom ated = 2757973821) message] The system which generated this result transmitted reference range : <=125. The reference range was not used to interpret this result as normal/abnormal . MARIPOSA (test code = MARIPOSA) Biotin has been reported to cause a negative bias, interpret results relative to patient's use of biotin. Lab Interpretation Normal (test code = 80080-3) [facility] CampusCOMP. METABOLIC PANEL (08457)2020-07-10 10:02:17 Test Item Value Reference Range Interpretation Comments NA (test code = 137 mmol/L 135-145 4615592432) K (test code = 4.7 mmol/L 3.5-5.0 8669763514) CL (test code = 103 mmol/L 98-108 1531349612) CO2 TOTAL (test code 30 mmol/L 23-31 = 4132528588) AGAP (test code = 2-16 8899807128) BUN (test code = 17 mg/dL 7-23 0980144645) GLUCOSE (test code = 107 mg/dL 70-110 9530428321) CREATININE (test code 0.51 mg/dL 0.50-1.04 = 5629595613) TOTAL BILI (test code 0.4 mg/dL 0.1-1.1 = 5397619756) CALCIUM (test code = 9.0 mg/dL 8.6-10.6 3086294589) T PROTEIN (test code 6.9 g/dL 6.3-8.2 = 3123725211) ALBUMIN (test code = 3.8 g/dL 3.5-5.0 3804890455) ALK PHOS (test code = 79 U/L 34-122 8182238937) ALTv (test code = 16 U/L 5-35 1742-6) AST(SGOT) (test code 20 U/L 13-40 = 6374424567) eGFR (test code = mL/min/1.73m2 3047848624) MARIPOSA (test code = MARIPOSA) Association of [...] or urine or abnormalities in imaging tests). [facility] CampusMAGNESIUM2021-05-28 10:02:17 Test Item Value Reference Range Interpretation Comments MAGNESIUM (test code = 2067242559) 2.1 mg/dL 1.7-2.4 Lab Interpretation (test code = Normal 76491-5) [facility] WITH [id number] 09:51:36 Test Item Value Reference Range Interpretation Comments WBC (test code = See_Comment H [Automated 6690-2) message] The sy stem which [...] RDW-SD (test code = 49.4 fL 39.0-49.9 68764-5) RDW-CV (test code = 15.3 % 12.0-15.5 788-0) PLT (test code = See_Comment [Automated 777-3) message] The sy stem which generated this result transmitted reference range : 166 - 358 10*3/ ?L. The reference r palmira was not used to interpret this result as normal/abnormal . MPV (test code = 10.8 fL 9.5-12.9 10318-6) NRBC/100 WBC (test See_Comment [Automat ed code = 8489489558) message] The system which generated this result transmitted reference range : 0.0 - 10.0 /100 WBCs. The refer ence range was not u sed to interpret th is result as normal/abnormal . NRBC x10^3 (test code <0.01 See_Comment [Auto mated = 0360177012) message] The s ystem which generated this result transmitted reference range : 10*3/?L. The reference range was not used to interpret this result as normal/abnormal . GRAN MAT (NEUT) % 71.0 % (test code = 770-8) IMM GRAN % (test code 0.50 % = 5125047316) LYMPH % (test code = 18.6 % 736-9) MONO % (test code = 5.8 % 5905-5) EOS % (test code = 3.7 % 713-8) BASO % (test code = 0.4 % 706-2) GRAN MAT x10^3(ANC) 8.61 10*3/uL 1.88-7.09 H (test code = 3104852037) IMM GRAN x10^3 (test 0.06 10*3/uL 0.00-0.06 code = 3091441480) LYMPH x10^3 (test code 2.26 10*3/uL 1.32-3.29 = 731-0) MONO x10^3 (test code 0.71 10*3/uL 0.33-0.92 = 742-7) EOS x10^3 (test code = 0.45 10*3/uL 0.03-0.39 H 711-2) BASO x10^3 (test code 0.05 10*3/uL 0.01-0.07 = 704-7) Lab Interpretation Abnormal (test code = 19671-1) [facility] CampusRESPIRATORY PANEL BY [id number] 07:41:20 Test Item Value Reference Range Interpretation Comments Adenovirus (test code = Negative Negative 29024-8) Coronavirus HKU1 (test Negative Negative code = 94782-8) Coronavirus NL63 (test Negative Negative code = 10528-3) Coronavirus 229E (test Negative Negative code = 42222-5) Coronavirus OC43 (test Negative Negative code = 59546-3) Human Metapneumovirus Negative Negative (test code = 87788-5) Human Negative Negative Rhinovirus/Enterovirus (test code = 35443-6) Influenza A (test code = Negative Negative 10170-7) Influenza B (test code = Negative Negative 99115-9) Parainfluenza Virus 1 Negative Negative (test code = 86048-1) Parainfluenza Virus 2 Negative Negative (test code = 01080-9) Parainfluenza Virus 3 Negative Negative (test code = 31181-1) Parainfluenza Virus 4 Negative Negative (test code = 10509-3) Respiratory Syncytial Negative Negative Virus (test code = 36517-8) Bordetella parapertussis Negative Negative (test code = 72417-9) Bordetella pertussis Negative Negative (test code = 87655-2) Chlamydia pneumoniae Negative Negative (test code = 72391-0) Mycoplasma pneumoniae Negative Negative (test code = 22973-1) MARIPOSA (test code = MARIPOSA) Negative:A negative result does not rule-out infection. ?This assay does not test for all potential infectious agents. ? Positive:A positive test result does not necessarily indicate the presence of viable organism. ? Lab Interpretation (test Normal code = 54488-9) [facility] CampusLAB ONLY COVID [id number] 06:21:45COVID DMT InterpretationInterpretation/Recommendations: Molecular NAAT Tests for [...] COVID-19 testing the patient has had at [facility], including molecular NAAT testing (more commonly known as PCR testing and Rapid ID Now testing) and antibody testing. It does not take into account any testingthat a patient has had outside of the [facility] medical record. [facility] LABORATORY SERVICESCOVID HplaemqDNZY-SoI-5 Rapid ID NOW (no units) ? ? Date ? Value ? 07/09/2020 ? Not Detected ? [facility] LABORATORY SERVICES [facility] CampusLEGIONELLA URINARY ANTIGEN [id number] 23:26:39 Test Item Value Reference Range Interpretation Comments Legionella Urinary Negative Negative Antigen (test code = 7523302956) MARIPOSA (test code = MARIPOSA) Negative for [...] test. Lab Interpretation (test Normal code = 67467-8) [id number] 21:06[facility]36 Test Item Value Reference Range Interpretation Comments TROPONIN I (test 0.002 ng/mL See_Comment [Automated code = 9292804407) message] The system which generated this result [...] ? Lab Interpretation Normal (test code = 84936-8) [facility] CampusADC,CLC OR LCC ONLY - INFLUENZA A & B DIRECT [id number] 20:54:43 Test Item Value Reference Range Interpretation Comments Influenza A (test code = 03531-1) Negative Negative Influenza B (test code = 03522-1) Negative Negative Lab Interpretation (test code = Normal 46382-3) [facility] CampusPROCALCITONIN2021-05-27 17:02:04 Test Item Value Reference Interpretation Comments Range Procalcitonin (test <0.02 See_Comment [Automa romero code = 6683188316) message] The system which generated this result [...] lung abscess/empyema. For further information please refer to:[email or web address] Lab Interpretation Normal (test code = 39542-8) [facility] CampusUREA NITROGEN, URINE [id number] 16:26:49 Test Item Value Reference Range Interpretation Comments UREA N UR (test code = 1477664910) 546 mg/dL [facility] CREAT RATIO URINE [id number] 13:05:11 Test Item Value Reference Range Interpretation Comments T. PROT U (test code = 2888-6) 22 mg/dL CREAT U (test code = 6224681860) 28.1 mg/dL Protein/Creatinine Ratio Urine 0.0-2.0 (test code = 8885242027) [facility] CampusSODIUM, URINE [id number] 13:01:14 Test Item Value Reference Range Interpretation Comments NA URINE (test code = 0677393467) 26 mmol/L [facility]XR CHEST 1 [id number] 12:40:02 Right lower lung well-demarcated consolidation concerning [...] this study and agree withthe above report. [facility]THYROID STIMULATING [id number] 12:35:31 Test Item Value Reference Range Interpretation Comments TSH (test code = See_Comment L [Automated message] 7688180492) The system [employer] generated this result transmitted ref erence range: 0.45 - 4 .70 mIU/L. The refe rence range was not u sed to interpret this result as normal/abnor mal. Lab Interpretation (test Abnormal code = 80512-1) [facility] CampusN-TERMINAL [id number] 12:14:52 Test Item Value Reference Range Interpretation Comments NT-proBNP (test code 46 pg/mL See_Comment [Autom ated = 2328152179) message] The system which generated this result transmitted reference range : <=125. The reference range was not used to interpret this result as normal/abnormal . MARIPOSA (test code = MARIPOSA) Biotin has been reported to cause a negative bias, interpret results relative to patient's use of biotin. Lab Interpretation Normal (test code = 11727-6) [facility]URINALYSIS2021-05-27 12:10:35 Test Item Value Reference Range Interpretation Comments APPEARANCE (test code = Clear Clear 1605102081) COLOR (test code = Straw Yellow A 6940509893) PH (test code = 4.8-8.0 6623330724) SP GRAVITY (test code = 1.003-1.030 4052594919) GLU U QUAL (test code = Normal Normal 8022435156) BLOOD (test code = 2+ Negative A 7906848296) KETONES (test code = Negative Negative 9390949276) PROTEIN (test code = Negative Negative 2887-8) UROBILIN (test code = Normal Normal 6627788531) BILIRUBIN (test code = Negative Negative 8895615587) NITRITE (test code = Negative Negative 0351482308) LEUK CLIFFORD (test code = Negative Negative 4842879783) RBC/HPF (test code = See_Comment H [Autom ated message] 0864917131) The system [employer] generated this result transmitted ref erence range: 0 - 3 HP F. The reference range was not used to int erpret this result as normal/abnormal . WBC/HPF (test code = See_Comment [Autom ated message] 1250040305) The system [employer] generated this result transmitted ref erence range: 0 - 5 HP F. The reference range was not used to int erpret this result as normal/abnormal . BACTERIA (test code = Negative Negative 6939437701) SQ EPITH (test code = HPF 4428868903) Lab Interpretation (test Abnormal code = 92260-5) [facility] CampusLIPID PANEL (17404)(TOTAL CHOLESTEROL, TRIGLYCERIDES, HDL)2020-07-09 12:04:52 Test Item Value Reference Range Interpretation Comments CHOL (test code = 183 mg/dL 120-200 3543865254) HDL (test code = 61 mg/dL >50 6557789780) HDLC RATIO (test code = See_Comment [Au tomated message] 5471818516) The system [employer] generated this result transmit romero reference range : <=4.5. The refe rence range was not u sed to interpret th is result as normal/abnormal . TRIG (test code = 68 mg/dL 30-170 0470082481) LDL CHOL (test code = 108 mg/dL See_Comment [Auto mated message] 14890-1) The system [employer] generated this result transmit romero reference range : <=160. The refe rence range was not u sed to interpret th is result as normal/abnormal . VLDL (test code = 14 mg/dL 5-60 7501408317) Lab Interpretation (test Normal code = 18333-4) [facility]PHOSPHORUS2021-05-27 12:04:52 Test Item Value Reference Range Interpretation Comments PHOSPHORUS (test code = 3799027620) 3.7 mg/dL 2.5-5.0 Lab Interpretation (test code = Normal 41198-0) [facility] CampusCREATINE [id number] 12:04:11 Test Item Value Reference Range Interpretation Comments CK (test code = 8919853933) 58 U/L 33-194 Lab Interpretation (test code = Normal 72881-3) [facility] CampusGLYCOSYLATED HEMOGLOBIN (A1C)2020-07-09 11:48:12 Test Item Value Reference Range Interpretation Comments HGB A1C (test code = 6.2 % 4.0-5.7 H 4548-4) MARIPOSA (test code = MARIPOSA) Reference RangesNormal: <5.7%Prediabetes: 5.7 - 6.4%Diabetes: > 6.5% Lab Interpretation (test Abnormal code = 63259-2) [facility] CampusTROPONIN [id number] 11:47:11 Test Item Value Reference Range Interpretation Comments TROPONIN I (test 0.000 ng/mL See_Comment [Automated code = 3111926479) message] The system which generated this result [...] ? Lab Interpretation Normal (test code = 36865-4) [facility] CampusPROTHROMBIN TIME / [id number] 11:40:31 Test Item Value Reference Range Interpretation Comments PROTIME PATIENT (test See_Comment [Auto mated message] code = 5964-2) The system [employer] generated this result transmitted ref erence range: 12.0 - 1 4.7 Seconds. The re ference range was not u sed to interpret this result as normal/abnor mal. INR (test code = 6301-6) Nor mal INR <1.1; Warfarin Therap eutic range 2.0 to 3. 0 or 2.5 to 3.5, dep ending upon the indica tions. Lab Interpretation (test Normal code = 03298-2) [facility] CampusMAGNESIUM2021-05-27 07:28:47 Test Item Value Reference Range Interpretation Comments MAGNESIUM (test code = 4171964645) 2.5 mg/dL 1.7-2.4 H Lab Interpretation (test code = Abnormal 67579-2) [facility] CampusCOMP. METABOLIC PANEL (72990)2020-07-09 07:28:27 Test Item Value Reference Range Interpretation Comments NA (test code = 135 mmol/L 135-145 0631429794) K (test code = 4.6 mmol/L 3.5-5.0 6732074506) CL (test code = 99 mmol/L 98-108 3001628131) CO2 TOTAL (test code = 26 mmol/L 23-31 8514301485) AGAP (test code = 2-16 9787562266) BUN (test code = 17 mg/dL 7-23 3964477449) GLUCOSE (test code = 190 mg/dL 70-110 H 0715646781) CREATININE (test code = 0.42 mg/dL 0.50-1.04 L 8847575439) TOTAL BILI (test code = 0.4 mg/dL 0.1-1.1 2948275739) CALCIUM (test code = 9.5 mg/dL 8.6-10.6 9827800028) T PROTEIN (test code = 8.8 g/dL 6.3-8.2 H 2852641837) ALBUMIN (test code = 4.5 g/dL 3.5-5.0 9015856453) ALK PHOS (test code = 126 U/L 34-122 H 5222662408) ALTv (test code = 20 U/L 5-35 1742-6) AST(SGOT) (test code = 29 U/L 13-40 3347805964) eGFR (test code = mL/min/1.73m2 8906288972) MARIPOSA (test code = MARIPOSA) Association of [...] tests). Lab Interpretation Abnormal (test code = 40299-5) [facility] CampusCOVID-19 (ID NOW RAPID TESTING)2020-07-09 06:30:42 Test Item Value Reference Range Interpretation Comments SARS-CoV-2 Rapid ID NOW Not Detected Not Detected (test code = 45865-5) MARIPOSA (test code = MARIPOSA) ID NOW COVID-19 Assay is an isothermal nucleic acid amplification test intended for the qualitative detection of nucleic acid from SARS-CoV-2 viral RNA in nasopharyngeal (SALES SERVICE MANAGER) specimens. It is used under Emergency [...] indicated. Lab Interpretation Normal (test code = 85204-8) [facility] WITH [id number] 06:24:59 Test Item Value Reference Range Interpretation Comments WBC (test code = See_Comment H [Automated 7271-2) message] The system which generated this result transmit romero reference range : 4.30 - 11.10 10*3/?L. The reference range was not used to interpret this result as normal/abnormal . RBC (test code = See_Comment [Automated 789-8) message] The system which generated this result [...] RDW-SD (test code = 46.9 fL 39.0-49.9 80334-9) RDW-CV (test code = 14.6 % 12.0-15.5 788-0) PLT (test code = See_Comment [Automated 777-3) message] The system which generated this result transmit romero reference range : 166 - 358 10*3/ ?L. The reference range was not u sed to interpret th is result as normal/abnormal . MPV (test code = 10.9 fL 9.5-12.9 22741-1) NRBC/100 WBC (test See_Comment [Automat ed code = 2689246340) message] The system which generated this result transmit romero reference range : 0.0 - 10.0 /100 WBCs. The reference range was not used to interpret this result as normal/abnormal . NRBC x10^3 (test code See_Comment [Auto mated = 0552762761) message] The system which generated this result transmit romero reference range : 10*3/?L. The reference range was not used to interpret this result as normal/abnormal . GRAN MAT (NEUT) % 85.9 % (test code = 770-8) IMM GRAN % (test code 1.50 % = 3951683263) LYMPH % (test code = 10.9 % 736-9) MONO % (test code = 1.3 % 5905-5) EOS % (test code = 0.1 % 713-8) BASO % (test code = 0.3 % 706-2) GRAN MAT x10^3(ANC) 12.67 10*3/uL 1.88-7.09 H (test code = 1371677677) IMM GRAN x10^3 (test 0.22 10*3/uL 0.00-0.06 H code = 6590975082) LYMPH x10^3 (test code 1.61 10*3/uL 1.32-3.29 = 731-0) MONO x10^3 (test code 0.19 10*3/uL 0.33-0.92 L = 742-7) EOS x10^3 (test code = <0.03 0.03-0.39 L 711-2) BASO x10^3 (test code 0.05 10*3/uL 0.01-0.07 = 704-7) Lab Interpretation Abnormal (test code = 44197-8) [facility] CampusCritical [id number] 06:04:00Miguel Mendoza MD ? ? 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 ?Critical care [...] surrogate and blood draw for specimensUn[facility] StephenvilleCB W/AUTO [id number] 00:00:00 Test Item Value Reference Range Interpretation [...] NUCLEATED RBCS (test code = 0.00 K/UL 51389) CBC W/AUTO [id number] 00:00:00 Test Item Value Reference Range Interpretation [...] NUCLEATED RBCS (test code = 0.00 K/UL 51564) HEMOGLOBIN [id number] 00:00:00 Test Item Value Reference Range Interpretation Comments HEMOGLOBIN A1c (test code = 07867) 6.2 % HEMOGLOBIN [id number] 00:00:00 Test Item Value Reference Range Interpretation Comments HEMOGLOBIN A1c (test code = 63200) 6.2 % COMPREHENSIVE METABOLIC [id number] 00:00:00 Test Item Value Reference Range Interpretation Comments GLUCOSE (test code = 2217) 101 MG/DL BUN (test code = 2208) 12 MG/DL CREATININE (test code = 2214) 0.45 MG/DL eGFR AMER. (test code 143 ML/MIN/1.73 = 50450) eGFR NON- AMER. (test 124 ML/MIN/1.73 code = 69690) CALC BUN/CREAT (test code = 27 RATIO [...] (test code = 2219) 17 U/L TROPONIN [id number] 00:00:00 Test Item Value Reference Range Interpretation Comments TROPONIN T (test code = 4017) <0.010 UG/L TROPONIN [id number] 00:00:00 Test Item Value Reference Range Interpretation Comments TROPONIN T (test code = 4017) <0.010 UG/L CBC W/AUTO [id number] 00:00:00 Test Item Value Reference Range Interpretation [...] NUCLEATED RBCS (test code = 0.00 K/UL 60739) CBC W/AUTO [id number] 00:00:00 Test Item Value Reference Range Interpretation [...] NUCLEATED RBCS (test code = 0.00 K/UL 78300) CBC W/AUTO [id number] 00:00:00 Test Item Value Reference Range Interpretation [...] NUCLEATED RBCS (test code = 0.00 K/UL 21630) HEMOGLOBIN [id number] 00:00:00 Test Item Value Reference Range Interpretation Comments HEMOGLOBIN A1c (test code = 22796) 6.2 % HEMOGLOBIN [id number] 00:00:00 Test Item Value Reference Range Interpretation Comments HEMOGLOBIN A1c (test code = 10892) 6.2 % HEMOGLOBIN [id number] 00:00:00 Test Item Value Reference Range Interpretation Comments HEMOGLOBIN A1c (test code = 12983) 6.2 % COMPREHENSIVE METABOLIC [id number] 00:00:00 Test Item Value Reference Range Interpretation Comments GLUCOSE (test code = 2217) 101 MG/DL BUN (test code = 2208) 12 MG/DL CREATININE (test code = 2214) 0.45 MG/DL eGFR AMER. (test code 143 ML/MIN/1.73 = 60947) eGFR NON- AMER. (test 124 ML/MIN/1.73 code = 11550) CALC BUN/CREAT (test code = 27 RATIO [...] code = 2219) 17 U/L COMPREHENSIVE METABOLIC [id number] 00:00:00 Test Item Value Reference Range Interpretation Comments GLUCOSE (test code = 2217) 101 MG/DL BUN (test code = 2208) 12 MG/DL CREATININE (test code = 2214) 0.45 MG/DL eGFR AMER. (test code 143 ML/MIN/1.73 = 88179) eGFR NON- AMER. (test 124 ML/MIN/1.73 code = 39381) CALC BUN/CREAT (test code = 27 RATIO [...] CALC GLOBULIN (test code = 3.6 G/DL 2239) CALC A/G RATIO (test code = 1.1 RATIO 2233) BILIRUBIN, TOTAL (test code = 0.3 MG/DL 2206) ALKALINE PHOSPHATASE (test 102 U/L code = 2204) AST (test code = 2218) 15 U/L ALT (test code = 2219) 17 U/L TROPONIN [id number] 00:00:00 Test Item Value Reference Range Interpretation Comments TROPONIN T (test code = 4017) <0.010 UG/L TROPONIN [id number] 00:00:00 Test Item Value Reference Range Interpretation Comments TROPONIN T (test code = 4017) <0.010 UG/L CBC W/AUTO [id number] 00:00:00 Test Item Value Reference Range Interpretation [...] NUCLEATED RBCS (test code = 0.00 K/UL 03478) CBC W/AUTO [id number] 00:00:00 Test Item Value Reference Range Interpretation [...] NUCLEATED RBCS (test code = 0.00 K/UL 66003) CBC W/AUTO [id number] 00:00:00 Test Item Value Reference Range Interpretation [...] NUCLEATED RBCS (test code = 0.00 K/UL 68120) HEMOGLOBIN [id number] 00:00:00 Test Item Value Reference Range Interpretation Comments HEMOGLOBIN A1c (test code = 10823) 6.2 % HEMOGLOBIN [id number] 00:00:00 Test Item Value Reference Range Interpretation Comments HEMOGLOBIN A1c (test code = 94124) 6.2 % HEMOGLOBIN [id number] 00:00:00 Test Item Value Reference Range Interpretation Comments HEMOGLOBIN A1c (test code = 80146) 6.2 % COMPREHENSIVE METABOLIC [id number] 00:00:00 Test Item Value Reference Range Interpretation Comments GLUCOSE (test code = 2217) 101 MG/DL BUN (test code = 2208) 12 MG/DL CREATININE (test code = 2214) 0.45 MG/DL eGFR AMER. (test code 143 ML/MIN/1.73 = 36337) eGFR NON- AMER. (test 124 ML/MIN/1.73 code = 77402) CALC BUN/CREAT (test code = 27 RATIO [...] code = 2219) 17 U/L COMPREHENSIVE METABOLIC [id number] 00:00:00 Test Item Value Reference Range Interpretation Comments GLUCOSE (test code = 2217) 101 MG/DL BUN (test code = 2208) 12 MG/DL CREATININE (test code = 2214) 0.45 MG/DL eGFR AMER. (test code 143 ML/MIN/1.73 = 29244) eGFR NON- AMER. (test 124 ML/MIN/1.73 code = 80494) CALC BUN/CREAT (test code = 27 RATIO [...] (test code = 2219) 17 U/L TROPONIN [id number] 00:00:00 Test Item Value Reference Range Interpretation Comments TROPONIN T (test code = 4017) <0.010 UG/L TROPONIN [id number] 00:00:00 Test Item Value Reference Range Interpretation Comments TROPONIN T (test code = 4017) <0.010 UG/L CBC W/AUTO [id number] 00:00:00 Test Item Value Reference Range Interpretation [...] NUCLEATED RBCS (test code = 0.00 K/UL 49410) CBC W/AUTO [id number] 00:00:00 Test Item Value Reference Range Interpretation [...] NUCLEATED RBCS (test code = 0.00 K/UL 07198) CBC W/AUTO [id number] 00:00:00 Test Item Value Reference Range Interpretation [...] NUCLEATED RBCS (test code = 0.00 K/UL 61334) HEMOGLOBIN [id number] 00:00:00 Test Item Value Reference Range Interpretation Comments HEMOGLOBIN A1c (test code = 79767) 6.2 % HEMOGLOBIN [id number] 00:00:00 Test Item Value Reference Range Interpretation Comments HEMOGLOBIN A1c (test code = 73855) 6.2 % HEMOGLOBIN [id number] 00:00:00 Test Item Value Reference Range Interpretation Comments HEMOGLOBIN A1c (test code = 15867) 6.2 % COMPREHENSIVE METABOLIC [id number] 00:00:00 Test Item Value Reference Range Interpretation Comments GLUCOSE (test code = 2217) 101 MG/DL BUN (test code = 2208) 12 MG/DL CREATININE (test code = 2214) 0.45 MG/DL eGFR AMER. (test code 143 ML/MIN/1.73 = 25106) eGFR NON- AMER. (test 124 ML/MIN/1.73 code = 13177) CALC BUN/CREAT (test code = 27 RATIO [...] code = 2219) 17 U/L COMPREHENSIVE METABOLIC [id number] 00:00:00 Test Item Value Reference Range Interpretation Comments GLUCOSE (test code = 2217) 101 MG/DL BUN (test code = 2208) 12 MG/DL CREATININE (test code = 2214) 0.45 MG/DL eGFR AMER. (test code 143 ML/MIN/1.73 = 85612) eGFR NON- AMER. (test 124 ML/MIN/1.73 code = 53991) CALC BUN/CREAT (test code = 27 RATIO [...] (test code = 2219) 17 U/L TROPONIN [id number] 00:00:00 Test Item Value Reference Range Interpretation Comments TROPONIN T (test code = 4017) <0.010 UG/L TROPONIN [id number] 00:00:00 Test Item Value Reference Range Interpretation Comments TROPONIN T (test code = 4017) <0.010 UG/L CBC W/AUTO [id number] 00:00:00 Test Item Value Reference Range Interpretation [...] NUCLEATED RBCS (test code = 0.00 K/UL 29069) CBC W/AUTO [id number] 00:00:00 Test Item Value Reference Range Interpretation [...] NUCLEATED RBCS (test code = 0.00 K/UL 67976) CBC W/AUTO [id number] 00:00:00 Test Item Value Reference Range Interpretation [...] NUCLEATED RBCS (test code = 0.00 K/UL 97071) HEMOGLOBIN [id number] 00:00:00 Test Item Value Reference Range Interpretation Comments HEMOGLOBIN A1c (test code = 30674) 6.2 % HEMOGLOBIN [id number] 00:00:00 Test Item Value Reference Range Interpretation Comments HEMOGLOBIN A1c (test code = 89604) 6.2 % HEMOGLOBIN [id number] 00:00:00 Test Item Value Reference Range Interpretation Comments HEMOGLOBIN A1c (test code = 81397) 6.2 % COMPREHENSIVE METABOLIC [id number] 00:00:00 Test Item Value Reference Range Interpretation Comments GLUCOSE (test code = 2217) 101 MG/DL BUN (test code = 2208) 12 MG/DL CREATININE (test code = 2214) 0.45 MG/DL eGFR AMER. (test code 143 ML/MIN/1.73 = 69356) eGFR NON- AMER. (test 124 ML/MIN/1.73 code = 59426) CALC BUN/CREAT (test code = 27 RATIO [...] A/G RATIO (test code = 1.1 RATIO 4) BILIRUBIN, TOTAL (test code = 0.3 MG/DL 2206) ALKALINE PHOSPHATASE (test 102 U/L code = 2204) AST (test code = 2218) 15 U/L ALT (test code = 2219) 17 U/L COMPREHENSIVE METABOLIC [id number] 00:00:00 Test Item Value Reference Range Interpretation Comments GLUCOSE (test code = 2217) 101 MG/DL BUN (test code = 2208) 12 MG/DL CREATININE (test code = 2214) 0.45 MG/DL eGFR AMER. (test code 143 ML/MIN/1.73 = 92124) eGFR NON- AMER. (test 124 ML/MIN/1.73 code = 09444) CALC BUN/CREAT (test code = 27 RATIO [...] (test code = 2219) 17 U/L TROPONIN [id number] 00:00:00 Test Item Value Reference Range Interpretation Comments TROPONIN T (test code = 4017) <0.010 UG/L COMPREHENSIVE METABOLIC [id number] 00:00:00 Test Item Value Reference Range Interpretation Comments GLUCOSE (test code = 2217) 125 MG/DL BUN (test code = 2208) 16 MG/DL CREATININE (test code = 2214) 0.54 MG/DL eGFR AMER. (test code 137 ML/MIN/1.73 = 03600) eGFR NON- AMER. (test 118 ML/MIN/1.73 code = 69051) CALC BUN/CREAT (test code = 30 RATIO [...] (test code = 2219) 15 U/L HEMOGLOBIN [id number] 00:00:00 Test Item Value Reference Range Interpretation Comments HEMOGLOBIN A1c (test code = 74390) 5.9 % HEMOGLOBIN [id number] 00:00:00 Test Item Value Reference Range Interpretation Comments HEMOGLOBIN A1c (test code = 93525) 5.9 % LIPID [id number] 00:00:00 Test Item Value Reference Range Interpretation Comments CHOLESTEROL (test code = 2210) 166 MG/DL TRIGLYCERIDES (test code = 2232) 145 MG/DL HDL CHOLESTEROL (test code = 2220) 48 MG/DL CALC LDL CHOL (test code = 2237) 89 MG/DL RISK RATIO LDL/HDL (test code = 1.85 RATIO 2238) LIPID [id number] 00:00:00 Test Item Value Reference Range Interpretation Comments CHOLESTEROL (test code = 2210) 166 MG/DL TRIGLYCERIDES (test code = 2232) 145 MG/DL HDL CHOLESTEROL (test code = 2220) 48 MG/DL CALC LDL CHOL (test code = 2237) 89 MG/DL RISK RATIO LDL/HDL (test code = 1.85 RATIO 2238) COMPREHENSIVE METABOLIC [id number] 00:00:00 Test Item Value Reference Range Interpretation Comments GLUCOSE (test code = 2217) 125 MG/DL BUN (test code = 2208) 16 MG/DL CREATININE (test code = 2214) 0.54 MG/DL eGFR AMER. (test code 137 ML/MIN/1.73 = 11938) eGFR NON- AMER. (test 118 ML/MIN/1.73 code = 87956) CALC BUN/CREAT (test code = 30 RATIO [...] code = 2219) 15 U/L COMPREHENSIVE METABOLIC [id number] 00:00:00 Test Item Value Reference Range Interpretation Comments GLUCOSE (test code = 2217) 125 MG/DL BUN (test code = 2208) 16 MG/DL CREATININE (test code = 2214) 0.54 MG/DL eGFR AMER. (test code 137 ML/MIN/1.73 = 71726) eGFR NON- AMER. (test 118 ML/MIN/1.73 code = 22938) CALC BUN/CREAT (test code = 30 RATIO [...] (test code = 2219) 15 U/L HEMOGLOBIN [id number] 00:00:00 Test Item Value Reference Range Interpretation Comments HEMOGLOBIN A1c (test code = 60324) 5.9 % HEMOGLOBIN [id number] 00:00:00 Test Item Value Reference Range Interpretation Comments HEMOGLOBIN A1c (test code = 49856) 5.9 % HEMOGLOBIN [id number] 00:00:00 Test Item Value Reference Range Interpretation Comments HEMOGLOBIN A1c (test code = 68439) 5.9 % LIPID [id number] 00:00:00 Test Item Value Reference Range Interpretation Comments CHOLESTEROL (test code = 2210) 166 MG/DL TRIGLYCERIDES (test code = 2232) 145 MG/DL HDL CHOLESTEROL (test code = 2220) 48 MG/DL CALC LDL CHOL (test code = 2237) 89 MG/DL RISK RATIO LDL/HDL (test code = 1.85 RATIO 2238) LIPID [id number] 00:00:00 Test Item Value Reference Range Interpretation Comments CHOLESTEROL (test code = 2210) 166 MG/DL TRIGLYCERIDES (test code = 2232) 145 MG/DL HDL CHOLESTEROL (test code = 2220) 48 MG/DL CALC LDL CHOL (test code = 2237) 89 MG/DL RISK RATIO LDL/HDL (test code = 1.85 RATIO 2238) COMPREHENSIVE METABOLIC [id number] 00:00:00 Test Item Value Reference Range Interpretation Comments GLUCOSE (test code = 2217) 125 MG/DL BUN (test code = 2208) 16 MG/DL CREATININE (test code = 2214) 0.54 MG/DL eGFR AMER. (test code 137 ML/MIN/1.73 = 48086) eGFR NON- AMER. (test 118 ML/MIN/1.73 code = 43776) CALC BUN/CREAT (test code = 30 RATIO [...] code = 2219) 15 U/L COMPREHENSIVE METABOLIC [id number] 00:00:00 Test Item Value Reference Range Interpretation Comments GLUCOSE (test code = 2217) 125 MG/DL BUN (test code = 2208) 16 MG/DL CREATININE (test code = 2214) 0.54 MG/DL eGFR AMER. (test code 137 ML/MIN/1.73 = 58133) eGFR NON- AMER. (test 118 ML/MIN/1.73 code = 34883) CALC BUN/CREAT (test code = 30 RATIO [...] (test code = 2219) 15 U/L HEMOGLOBIN [id number] 00:00:00 Test Item Value Reference Range Interpretation Comments HEMOGLOBIN A1c (test code = 48563) 5.9 % HEMOGLOBIN [id number] 00:00:00 Test Item Value Reference Range Interpretation Comments HEMOGLOBIN A1c (test code = 20556) 5.9 % HEMOGLOBIN [id number] 00:00:00 Test Item Value Reference Range Interpretation Comments HEMOGLOBIN A1c (test code = 60695) 5.9 % LIPID [id number] 00:00:00 Test Item Value Reference Range Interpretation Comments CHOLESTEROL (test code = 2210) 166 MG/DL TRIGLYCERIDES (test code = 2232) 145 MG/DL HDL CHOLESTEROL (test code = 2220) 48 MG/DL CALC LDL CHOL (test code = 2237) 89 MG/DL RISK RATIO LDL/HDL (test code = 1.85 RATIO 2238) LIPID [id number] 00:00:00 Test Item Value Reference Range Interpretation Comments CHOLESTEROL (test code = 2210) 166 MG/DL TRIGLYCERIDES (test code = 2232) 145 MG/DL HDL CHOLESTEROL (test code = 2220) 48 MG/DL CALC LDL CHOL (test code = 2237) 89 MG/DL RISK RATIO LDL/HDL (test code = 1.85 RATIO 2238) COMPREHENSIVE METABOLIC [id number] 00:00:00 Test Item Value Reference Range Interpretation Comments GLUCOSE (test code = 2217) 125 MG/DL BUN (test code = 2208) 16 MG/DL CREATININE (test code = 2214) 0.54 MG/DL eGFR AMER. (test code 137 ML/MIN/1.73 = 31902) eGFR NON- AMER. (test 118 ML/MIN/1.73 code = 57245) CALC BUN/CREAT (test code = 30 RATIO [...] code = 2219) 15 U/L COMPREHENSIVE METABOLIC [id number] 00:00:00 Test Item Value Reference Range Interpretation Comments GLUCOSE (test code = 2217) 125 MG/DL BUN (test code = 2208) 16 MG/DL CREATININE (test code = 2214) 0.54 MG/DL eGFR AMER. (test code 137 ML/MIN/1.73 = 34301) eGFR NON- AMER. (test 118 ML/MIN/1.73 code = 97239) CALC BUN/CREAT (test code = 30 RATIO [...] (test code = 2219) 15 U/L HEMOGLOBIN [id number] 00:00:00 Test Item Value Reference Range Interpretation Comments HEMOGLOBIN A1c (test code = 10134) 5.9 % HEMOGLOBIN [id number] 00:00:00 Test Item Value Reference Range Interpretation Comments HEMOGLOBIN A1c (test code = 20559) 5.9 % HEMOGLOBIN [id number] 00:00:00 Test Item Value Reference Range Interpretation Comments HEMOGLOBIN A1c (test code = 80712) 5.9 % LIPID [id number] 00:00:00 Test Item Value Reference Range Interpretation Comments CHOLESTEROL (test code = 2210) 166 MG/DL TRIGLYCERIDES (test code = 2232) 145 MG/DL HDL CHOLESTEROL (test code = 2220) 48 MG/DL CALC LDL CHOL (test code = 2237) 89 MG/DL RISK RATIO LDL/HDL (test code = 1.85 RATIO 2238) LIPID [id number] 00:00:00 Test Item Value Reference Range Interpretation Comments CHOLESTEROL (test code = 2210) 166 MG/DL TRIGLYCERIDES (test code = 2232) 145 MG/DL HDL CHOLESTEROL (test code = 2220) 48 MG/DL CALC LDL CHOL (test code = 2237) 89 MG/DL RISK RATIO LDL/HDL (test code = 1.85 RATIO 2238) COMPREHENSIVE METABOLIC [id number] 00:00:00 Test Item Value Reference Range Interpretation Comments GLUCOSE (test code = 2217) 125 MG/DL BUN (test code = 2208) 16 MG/DL CREATININE (test code = 2214) 0.54 MG/DL eGFR AMER. (test code 137 ML/MIN/1.73 = 90510) eGFR NON- AMER. (test 118 ML/MIN/1.73 code = 13204) CALC BUN/CREAT (test code = 30 RATIO 2235) SODIUM (test code = 2231) 140 MEQ/L POTASSIUM (test code = 2228) 4.7 MEQ/L CHLORIDE (test code = 2215) 105 MEQ/L CARBON DIOXIDE (test code = 25 MEQ/L 220) CALCIUM (test code = 2209) 9.2 MG/DL PROTEIN, TOTAL (test code = 7.8 G/DL 2228) ALBUMIN (test code = 220) 4.3 G/DL CALC GLOBULIN (test code = 3.5 G/DL 2239) CALC A/G RATIO (test code = 1.2 RATIO 2234) BILIRUBIN, TOTAL (test code = 0.2 MG/DL 2206) ALKALINE PHOSPHATASE (test 114 U/L code = 2204) AST (test code = 2218) 17 U/L ALT (test code = 2219) 15 U/L COMPREHENSIVE METABOLIC [id number] 00:00:00 Test Item Value Reference Range Interpretation Comments GLUCOSE (test code = 2217) 125 MG/DL BUN (test code = 2208) 16 MG/DL CREATININE (test code = 2214) 0.54 MG/DL eGFR AMER. (test code 137 ML/MIN/1.73 = 68021) eGFR NON- AMER. (test 118 ML/MIN/1.73 code = 82024) CALC BUN/CREAT (test code = 30 RATIO [...] (test code = 2219) 15 U/L HEMOGLOBIN [id number] 00:00:00 Test Item Value Reference Range Interpretation Comments HEMOGLOBIN A1c (test code = 29553) 5.9 % HEMOGLOBIN [id number] 00:00:00 Test Item Value Reference Range Interpretation Comments HEMOGLOBIN A1c (test code = 24637) 5.9 % HEMOGLOBIN [id number] 00:00:00 Test Item Value Reference Range Interpretation Comments HEMOGLOBIN A1c (test code = 79633) 5.9 % LIPID [id number] 00:00:00 Test Item Value Reference Range Interpretation Comments CHOLESTEROL (test code = 2210) 166 MG/DL TRIGLYCERIDES (test code = 2232) 145 MG/DL HDL CHOLESTEROL (test code = 2220) 48 MG/DL CALC LDL CHOL (test code = 2237) 89 MG/DL RISK RATIO LDL/HDL (test code = 1.85 RATIO 2238) CCP [id number] 00:00:00 Test Item Value Reference Range Interpretation Comments CCP IgG (test code = 67956) 184 UNITS CCP [id number] 00:00:00 Test Item Value Reference Range Interpretation Comments CCP IgG (test code = 01845) 184 UNITS CCP [id number] 00:00:00 Test Item Value Reference Range Interpretation Comments CCP IgG (test code = 67099) 184 UNITS CCP [id number] 00:00:00 Test Item Value Reference Range Interpretation Comments CCP IgG (test code = 44695) 184 UNITS CCP [id number] 00:00:00 Test Item Value Reference Range Interpretation Comments CCP IgG (test code = 45504) 184 UNITS CCP [id number] 00:00:00 Test Item Value Reference Range Interpretation Comments CCP IgG (test code = 71510) 184 UNITS CCP [id number] 00:00:00 Test Item Value Reference Range Interpretation Comments CCP IgG (test code = 64830) 184 UNITS CCP [id number] 00:00:00 Test Item Value Reference Range Interpretation Comments CCP IgG (test code = 72602) 184 UNITS CCP [id number] 00:00:00 Test Item Value Reference Range Interpretation Comments CCP IgG (test code = 17035) 184 UNITS CCP [id number] 00:00:00 Test Item Value Reference Range Interpretation Comments CCP IgG (test code = 48972) 184 UNITS CCP [id number] 00:00:00 Test Item Value Reference Range Interpretation Comments CCP IgG (test code = 69007) 184 UNITS CCP [id number] 00:00:00 Test Item Value Reference Range Interpretation Comments CCP IgG (test code = 35978) 184 UNITS CCP [id number] 00:00:00 Test Item Value Reference Range Interpretation Comments CCP IgG (test code = 16521) 184 UNITS CCP [id number] 00:00:00 Test Item Value Reference Range Interpretation Comments CCP IgG (test code = 73007) 184 UNITS C-REACTIVE [id number] 00:00:00 Test Item Value Reference Range Interpretation Comments C-REACTIVE PROTEIN (test code = 1.4 MG/DL 3513) ACUTE HEPATITIS [id number] 00:00:00 Test Item Value Reference Range Interpretation Comments HEPATITIS A IgM (test code = NON-REACTIVE 54863) HEPATITIS B CORE IgM (test code NON-REACTIVE = 4644) HEPATITIS B SURF AG (test code = NON-REACTIVE 2739) HEPATITIS C ANTIBODY (test code NON-REACTIVE = 4675) INTERPRETATION HEPATITIS A: (NOTE) (test code = 2552) INTERPRETATION HEPATITIS B: (NOTE) (test code = 37723) INTERPRETATION HEPATITIS C: (NOTE) (test code = 24627) ACUTE HEPATITIS [id number] 00:00:00 Test Item Value Reference Range Interpretation Comments HEPATITIS A IgM (test code = NON-REACTIVE 10202) HEPATITIS B CORE IgM (test code NON-REACTIVE = 4644) HEPATITIS B SURF AG (test code = NON-REACTIVE 2739) HEPATITIS C ANTIBODY (test code NON-REACTIVE = 4675) INTERPRETATION HEPATITIS A: (NOTE) (test code = 2552) INTERPRETATION HEPATITIS B: (NOTE) (test code = 59167) INTERPRETATION HEPATITIS C: (NOTE) (test code = 87963) C-REACTIVE [id number] 00:00:00 Test Item Value Reference Range Interpretation Comments C-REACTIVE PROTEIN (test code = 1.4 MG/DL 3513) C-REACTIVE [id number] 00:00:00 Test Item Value Reference Range Interpretation Comments C-REACTIVE PROTEIN (test code = 1.4 MG/DL 3513) ACUTE HEPATITIS [id number] 00:00:00 Test Item Value Reference Range Interpretation Comments HEPATITIS A IgM (test code = NON-REACTIVE 70696) HEPATITIS B CORE IgM (test code NON-REACTIVE = 4644) HEPATITIS B SURF AG (test code = NON-REACTIVE 2739) HEPATITIS C ANTIBODY (test code NON-REACTIVE = 4675) INTERPRETATION HEPATITIS A: (NOTE) (test code = 2552) INTERPRETATION HEPATITIS B: (NOTE) (test code = 33852) INTERPRETATION HEPATITIS C: (NOTE) (test code = 31795) ACUTE HEPATITIS [id number] 00:00:00 Test Item Value Reference Range Interpretation Comments HEPATITIS A IgM (test code = NON-REACTIVE 96529) HEPATITIS B CORE IgM (test code NON-REACTIVE = 4644) HEPATITIS B SURF AG (test code = NON-REACTIVE 2739) HEPATITIS C ANTIBODY (test code NON-REACTIVE = 4675) INTERPRETATION HEPATITIS A: (NOTE) (test code = 2552) INTERPRETATION HEPATITIS B: (NOTE) (test code = 03084) INTERPRETATION HEPATITIS C: (NOTE) (test code = 34106) C-REACTIVE [id number] 00:00:00 Test Item Value Reference Range Interpretation Comments C-REACTIVE PROTEIN (test code = 1.4 MG/DL 3513) C-REACTIVE [id number] 00:00:00 Test Item Value Reference Range Interpretation Comments C-REACTIVE PROTEIN (test code = 1.4 MG/DL 3513) ACUTE HEPATITIS [id number] 00:00:00 Test Item Value Reference Range Interpretation Comments HEPATITIS A IgM (test code = NON-REACTIVE 41586) HEPATITIS B CORE IgM (test code NON-REACTIVE = 4644) HEPATITIS B SURF AG (test code = NON-REACTIVE 2739) HEPATITIS C ANTIBODY (test code NON-REACTIVE = 4675) INTERPRETATION HEPATITIS A: (NOTE) (test code = 2552) INTERPRETATION HEPATITIS B: (NOTE) (test code = 94047) INTERPRETATION HEPATITIS C: (NOTE) (test code = 22703) ACUTE HEPATITIS [id number] 00:00:00 Test Item Value Reference Range Interpretation Comments HEPATITIS A IgM (test code = NON-REACTIVE 73446) HEPATITIS B CORE IgM (test code NON-REACTIVE = 4644) HEPATITIS B SURF AG (test code = NON-REACTIVE 2739) HEPATITIS C ANTIBODY (test code NON-REACTIVE = 4675) INTERPRETATION HEPATITIS A: (NOTE) (test code = 2552) INTERPRETATION HEPATITIS B: (NOTE) (test code = 55008) INTERPRETATION HEPATITIS C: (NOTE) (test code = 43473) C-REACTIVE [id number] 00:00:00 Test Item Value Reference Range Interpretation Comments C-REACTIVE PROTEIN (test code = 1.4 MG/DL 3513) C-REACTIVE [id number] 00:00:00 Test Item Value Reference Range Interpretation Comments C-REACTIVE PROTEIN (test code = 1.4 MG/DL 3513) ACUTE HEPATITIS [id number] 00:00:00 Test Item Value Reference Range Interpretation Comments HEPATITIS A IgM (test code = NON-REACTIVE 06201) HEPATITIS B CORE IgM (test code NON-REACTIVE = 4644) HEPATITIS B SURF AG (test code = NON-REACTIVE 2739) HEPATITIS C ANTIBODY (test code NON-REACTIVE = 4675) INTERPRETATION HEPATITIS A: (NOTE) (test code = 2552) INTERPRETATION HEPATITIS B: (NOTE) (test code = 95170) INTERPRETATION HEPATITIS C: (NOTE) (test code = 07319) ACUTE HEPATITIS [id number] 00:00:00 Test Item Value Reference Range Interpretation Comments HEPATITIS A IgM (test code = NON-REACTIVE 21306) HEPATITIS B CORE IgM (test code NON-REACTIVE = 4644) HEPATITIS B SURF AG (test code = NON-REACTIVE 2739) HEPATITIS C ANTIBODY (test code NON-REACTIVE = 4675) INTERPRETATION HEPATITIS A: (NOTE) (test code = 2552) INTERPRETATION HEPATITIS B: (NOTE) (test code = 61024) INTERPRETATION HEPATITIS C: (NOTE) (test code = 47618) C-REACTIVE [id number] 00:00:00 Test Item Value Reference Range Interpretation Comments C-REACTIVE PROTEIN (test code = 1.4 MG/DL 3513) C-REACTIVE [id number] 00:00:00 Test Item Value Reference Range Interpretation Comments C-REACTIVE PROTEIN (test code = 1.4 MG/DL 3513) ACUTE HEPATITIS [id number] 00:00:00 Test Item Value Reference Range Interpretation Comments HEPATITIS A IgM (test code = NON-REACTIVE 41062) HEPATITIS B CORE IgM (test code NON-REACTIVE = 4644) HEPATITIS B SURF AG (test code = NON-REACTIVE 2739) HEPATITIS C ANTIBODY (test code NON-REACTIVE = 4675) INTERPRETATION HEPATITIS A: (NOTE) (test code = 2552) INTERPRETATION HEPATITIS B: (NOTE) (test code = 69487) INTERPRETATION HEPATITIS C: (NOTE) (test code = 19241) ARTHRITIS [id number] 00:00:00 Test Item Value Reference Range Interpretation Comments RHEUMATOID FACTOR, QUANT 54 IU/ML (test code = 3502) URIC ACID (test code = 5.1 MG/DL 2233) SEDIMENTATION RATE (test TEST NOT PERFORMED code = 1017) MM/HOUR ANTI-NUCLEAR ANTIBODIES NEGATIVE (test code = 3506) VITAMIN D, 25 [id number] 00:00:00 Test Item Value Reference Range Interpretation Comments VITAMIN D, 25 OH (test code = 4958) 15 NG/ML ARTHRITIS [id number] 00:00:00 Test Item Value Reference Range Interpretation Comments RHEUMATOID FACTOR, QUANT 54 IU/ML (test code = 3502) URIC ACID (test code = 5.1 MG/DL 2233) SEDIMENTATION RATE (test TEST NOT PERFORMED code = 1017) MM/HOUR ANTI-NUCLEAR ANTIBODIES NEGATIVE (test code = 3506) ARTHRITIS [id number] 00:00:00 Test Item Value Reference Range Interpretation Comments RHEUMATOID FACTOR, QUANT 54 IU/ML (test code = 3502) URIC ACID (test code = 5.1 MG/DL 2233) SEDIMENTATION RATE (test TEST NOT PERFORMED code = 1017) MM/HOUR ANTI-NUCLEAR ANTIBODIES NEGATIVE (test code = 3506) ARTHRITIS [id number] 00:00:00 Test Item Value Reference Range Interpretation Comments RHEUMATOID FACTOR, QUANT 54 IU/ML (test code = 3502) URIC ACID (test code = 5.1 MG/DL 2233) SEDIMENTATION RATE (test TEST NOT PERFORMED code = 1017) MM/HOUR ANTI-NUCLEAR ANTIBODIES NEGATIVE (test code = 3506) VITAMIN D, 25 [id number] 00:00:00 Test Item Value Reference Range Interpretation Comments VITAMIN D, 25 OH (test code = 4958) 15 NG/ML VITAMIN D, 25 [id number] 00:00:00 Test Item Value Reference Range Interpretation Comments VITAMIN D, 25 OH (test code = 4958) 15 NG/ML ARTHRITIS [id number] 00:00:00 Test Item Value Reference Range Interpretation Comments RHEUMATOID FACTOR, QUANT 54 IU/ML (test code = 3502) URIC ACID (test code = 5.1 MG/DL 2233) SEDIMENTATION RATE (test TEST NOT PERFORMED code = 1017) MM/HOUR ANTI-NUCLEAR ANTIBODIES NEGATIVE (test code = 3506) ARTHRITIS [id number] 00:00:00 Test Item Value Reference Range Interpretation Comments RHEUMATOID FACTOR, QUANT 54 IU/ML (test code = 3502) URIC ACID (test code = 5.1 MG/DL 2233) SEDIMENTATION RATE (test TEST NOT PERFORMED code = 1017) MM/HOUR ANTI-NUCLEAR ANTIBODIES NEGATIVE (test code = 3506) ARTHRITIS [id number] 00:00:00 Test Item Value Reference Range Interpretation Comments RHEUMATOID FACTOR, QUANT 54 IU/ML (test code = 3502) URIC ACID (test code = 5.1 MG/DL 2233) SEDIMENTATION RATE (test TEST NOT PERFORMED code = 1017) MM/HOUR ANTI-NUCLEAR ANTIBODIES NEGATIVE (test code = 3506) VITAMIN D, 25 [id number] 00:00:00 Test Item Value Reference Range Interpretation Comments VITAMIN D, 25 OH (test code = 4958) 15 NG/ML VITAMIN D, 25 [id number] 00:00:00 Test Item Value Reference Range Interpretation Comments VITAMIN D, 25 OH (test code = 4958) 15 NG/ML ARTHRITIS [id number] 00:00:00 Test Item Value Reference Range Interpretation Comments RHEUMATOID FACTOR, QUANT 54 IU/ML (test code = 3502) URIC ACID (test code = 5.1 MG/DL 2233) SEDIMENTATION RATE (test TEST NOT PERFORMED code = 1017) MM/HOUR ANTI-NUCLEAR ANTIBODIES NEGATIVE (test code = 3506) ARTHRITIS [id number] 00:00:00 Test Item Value Reference Range Interpretation Comments RHEUMATOID FACTOR, QUANT 54 IU/ML (test code = 3502) URIC ACID (test code = 5.1 MG/DL 2233) SEDIMENTATION RATE (test TEST NOT PERFORMED code = 1017) MM/HOUR ANTI-NUCLEAR ANTIBODIES NEGATIVE (test code = 3506) ARTHRITIS [id number] 00:00:00 Test Item Value Reference Range Interpretation Comments RHEUMATOID FACTOR, QUANT 54 IU/ML (test code = 3502) URIC ACID (test code = 5.1 MG/DL 2233) SEDIMENTATION RATE (test TEST NOT PERFORMED code = 1017) MM/HOUR ANTI-NUCLEAR ANTIBODIES NEGATIVE (test code = 3506) VITAMIN D, 25 [id number] 00:00:00 Test Item Value Reference Range Interpretation Comments VITAMIN D, 25 OH (test code = 4958) 15 NG/ML VITAMIN D, 25 [id number] 00:00:00 Test Item Value Reference Range Interpretation Comments VITAMIN D, 25 OH (test code = 4958) 15 NG/ML ARTHRITIS [id number] 00:00:00 Test Item Value Reference Range Interpretation Comments RHEUMATOID FACTOR, QUANT 54 IU/ML (test code = 3502) URIC ACID (test code = 5.1 MG/DL 2233) SEDIMENTATION RATE (test TEST NOT PERFORMED code = 1017) MM/HOUR ANTI-NUCLEAR ANTIBODIES NEGATIVE (test code = 3506) ARTHRITIS [id number] 00:00:00 Test Item Value Reference Range Interpretation Comments RHEUMATOID FACTOR, QUANT 54 IU/ML (test code = 3502) URIC ACID (test code = 5.1 MG/DL 2233) SEDIMENTATION RATE (test TEST NOT PERFORMED code = 1017) MM/HOUR ANTI-NUCLEAR ANTIBODIES NEGATIVE (test code = 3506) ARTHRITIS [id number] 00:00:00 Test Item Value Reference Range Interpretation Comments RHEUMATOID FACTOR, QUANT 54 IU/ML (test code = 3502) URIC ACID (test code = 5.1 MG/DL 2233) SEDIMENTATION RATE (test TEST NOT PERFORMED code = 1017) MM/HOUR ANTI-NUCLEAR ANTIBODIES NEGATIVE (test code = 3506) VITAMIN D, 25 [id number] 00:00:00 Test Item Value Reference Range Interpretation Comments VITAMIN D, 25 OH (test code = 4958) 15 NG/ML VITAMIN D, 25 [id number] 00:00:00 Test Item Value Reference Range Interpretation Comments VITAMIN D, 25 OH (test code = 4958) 15 NG/ML ARTHRITIS [id number] 00:00:00 Test Item Value Reference Range Interpretation Comments RHEUMATOID FACTOR, QUANT 54 IU/ML (test code = 3502) URIC ACID (test code = 5.1 MG/DL 2233) SEDIMENTATION RATE (test TEST NOT PERFORMED code = 1017) MM/HOUR ANTI-NUCLEAR ANTIBODIES NEGATIVE (test code = 3506) HIGH SENSITIVITY [id number] 00:00:00 Test Item Value Reference Range Interpretation Comments HIGH SENSITIVITY CRP (test code = 10.9 MG/L 99409) SEDIMENTATION [id number] 00:00:00 Test Item Value Reference Range Interpretation Comments SEDIMENTATION RATE (test code = 22 MM/HOUR 1017) COMPREHENSIVE METABOLIC [id number] 00:00:00 Test Item Value Reference Range Interpretation Comments GLUCOSE (test code = 2217) 86 MG/DL BUN (test code = 2208) 13 MG/DL CREATININE (test code = 2214) 0.44 MG/DL eGFR AMER. (test code 148 ML/MIN/1.73 = 87404) eGFR NON- AMER. (test 128 ML/MIN/1.73 code = 51057) CALC BUN/CREAT (test code = 30 RATIO [...] code = 2219) 12 U/L COMPREHENSIVE METABOLIC [id number] 00:00:00 Test Item Value Reference Range Interpretation Comments GLUCOSE (test code = 2217) 86 MG/DL BUN (test code = 2208) 13 MG/DL CREATININE (test code = 2214) 0.44 MG/DL eGFR AMER. (test code 148 ML/MIN/1.73 = 03794) eGFR NON- AMER. (test 128 ML/MIN/1.73 code = 57963) CALC BUN/CREAT (test code = 30 RATIO [...] code = 2219) 12 U/L HIGH SENSITIVITY [id number] 00:00:00 Test Item Value Reference Range Interpretation Comments HIGH SENSITIVITY CRP (test code = 10.9 MG/L 81235) HIGH SENSITIVITY [id number] 00:00:00 Test Item Value Reference Range Interpretation Comments HIGH SENSITIVITY CRP (test code = 10.9 MG/L 01969) SEDIMENTATION [id number] 00:00:00 Test Item Value Reference Range Interpretation Comments SEDIMENTATION RATE (test code = 22 MM/HOUR 1017) SEDIMENTATION [id number] 00:00:00 Test Item Value Reference Range Interpretation Comments SEDIMENTATION RATE (test code = 22 MM/HOUR 1017) COMPREHENSIVE METABOLIC [id number] 00:00:00 Test Item Value Reference Range Interpretation Comments GLUCOSE (test code = 2217) 86 MG/DL BUN (test code = 2208) 13 MG/DL CREATININE (test code = 2214) 0.44 MG/DL eGFR AMER. (test code 148 ML/MIN/1.73 = 05890) eGFR NON- AMER. (test 128 ML/MIN/1.73 code = 09839) CALC BUN/CREAT (test code = 30 RATIO [...] code = 2219) 12 U/L COMPREHENSIVE METABOLIC [id number] 00:00:00 Test Item Value Reference Range Interpretation Comments GLUCOSE (test code = 2217) 86 MG/DL BUN (test code = 2208) 13 MG/DL CREATININE (test code = 2214) 0.44 MG/DL eGFR AMER. (test code 148 ML/MIN/1.73 = 56684) eGFR NON- AMER. (test 128 ML/MIN/1.73 code = 26060) CALC BUN/CREAT (test code = 30 RATIO [...] 221) 15 U/L ALT (test code = 2219) 12 U/L HIGH SENSITIVITY [id number] 00:00:00 Test Item Value Reference Range Interpretation Comments HIGH SENSITIVITY CRP (test code = 10.9 MG/L 92145) HIGH SENSITIVITY [id number] 00:00:00 Test Item Value Reference Range Interpretation Comments HIGH SENSITIVITY CRP (test code = 10.9 MG/L 61026) SEDIMENTATION [id number] 00:00:00 Test Item Value Reference Range Interpretation Comments SEDIMENTATION RATE (test code = 22 MM/HOUR 1017) SEDIMENTATION [id number] 00:00:00 Test Item Value Reference Range Interpretation Comments SEDIMENTATION RATE (test code = 22 MM/HOUR 1017) COMPREHENSIVE METABOLIC [id number] 00:00:00 Test Item Value Reference Range Interpretation Comments GLUCOSE (test code = 2217) 86 MG/DL BUN (test code = 8) 13 MG/DL CREATININE (test code = 2214) 0.44 MG/DL eGFR AMER. (test code 148 ML/MIN/1.73 = 17139) eGFR NON- AMER. (test 128 ML/MIN/1.73 code = 16229) CALC BUN/CREAT (test code = 30 RATIO [...] code = 2219) 12 U/L COMPREHENSIVE METABOLIC [id number] 00:00:00 Test Item Value Reference Range Interpretation Comments GLUCOSE (test code = 2217) 86 MG/DL BUN (test code = 2208) 13 MG/DL CREATININE (test code = 2214) 0.44 MG/DL eGFR AMER. (test code 148 ML/MIN/1.73 = 68460) eGFR NON- AMER. (test 128 ML/MIN/1.73 code = 89544) CALC BUN/CREAT (test code = 30 RATIO [...] code = 2219) 12 U/L HIGH SENSITIVITY [id number] 00:00:00 Test Item Value Reference Range Interpretation Comments HIGH SENSITIVITY CRP (test code = 10.9 MG/L 94596) HIGH SENSITIVITY [id number] 00:00:00 Test Item Value Reference Range Interpretation Comments HIGH SENSITIVITY CRP (test code = 10.9 MG/L 47814) SEDIMENTATION [id number] 00:00:00 Test Item Value Reference Range Interpretation Comments SEDIMENTATION RATE (test code = 22 MM/HOUR 1017) SEDIMENTATION [id number] 00:00:00 Test Item Value Reference Range Interpretation Comments SEDIMENTATION RATE (test code = 22 MM/HOUR 1017) COMPREHENSIVE METABOLIC [id number] 00:00:00 Test Item Value Reference Range Interpretation Comments GLUCOSE (test code = 2217) 86 MG/DL BUN (test code = 2208) 13 MG/DL CREATININE (test code = 2214) 0.44 MG/DL eGFR AMER. (test code 148 ML/MIN/1.73 = 85381) eGFR NON- AMER. (test 128 ML/MIN/1.73 code = 92911) CALC BUN/CREAT (test code = 30 RATIO 2235) SODIUM (test code = 2231) 137 MEQ/L POTASSIUM (test code = 2228) 4.4 MEQ/L CHLORIDE (test code = 2215) 101 MEQ/L CARBON DIOXIDE (test code = 23 MEQ/L 2206) CALCIUM (test code = 2209) [...] code = 2219) 12 U/L COMPREHENSIVE METABOLIC [id number] 00:00:00 Test Item Value Reference Range Interpretation Comments GLUCOSE (test code = 2217) 86 MG/DL BUN (test code = 2208) 13 MG/DL CREATININE (test code = 2214) 0.44 MG/DL eGFR AMER. (test code 148 ML/MIN/1.73 = 48807) eGFR NON- AMER. (test 128 ML/MIN/1.73 code = 42904) CALC BUN/CREAT (test code = 30 RATIO 2235) SODIUM (test code = 2231) 137 MEQ/L POTASSIUM (test code = 2228) 4.4 MEQ/L CHLORIDE (test code = 2215) 101 MEQ/L CARBON DIOXIDE (test code = 23 MEQ/L 2206) CALCIUM (test code = 2209) 9.4 MG/DL PROTEIN, TOTAL (test code = 8.0 G/DL 2228) ALBUMIN (test code = 2201) 4.6 G/DL CALC GLOBULIN (test code = 3.4 G/DL 2240) CALC A/G RATIO (test code = 1.4 RATIO 223) BILIRUBIN, TOTAL (test code = 0.2 MG/DL 2206) ALKALINE PHOSPHATASE (test 109 U/L code = 2204) AST (test code = 2218) 15 U/L ALT (test code = 2219) 12 U/L HIGH SENSITIVITY [id number] 00:00:00 Test Item Value Reference Range Interpretation Comments HIGH SENSITIVITY CRP (test code = 10.9 MG/L 23833) HIGH SENSITIVITY [id number] 00:00:00 Test Item Value Reference Range Interpretation Comments HIGH SENSITIVITY CRP (test code = 10.9 MG/L 88322) COMPREHENSIVE METABOLIC [id number] 00:00:00 Test Item Value Reference Range Interpretation Comments GLUCOSE (test code = 2217) 86 MG/DL BUN (test code = 2208) 13 MG/DL CREATININE (test code = 2214) 0.44 MG/DL eGFR AMER. (test code 148 ML/MIN/1.73 = 53048) eGFR NON- AMER. (test 128 ML/MIN/1.73 code = 87367) CALC BUN/CREAT (test code = 30 RATIO [...] (test code = 2219) 12 U/L SEDIMENTATION [id number] 00:00:00 Test Item Value Reference Range Interpretation Comments SEDIMENTATION RATE (test code = 22 MM/HOUR 1017) SEDIMENTATION [id number] 00:00:00 Test Item Value Reference Range Interpretation Comments SEDIMENTATION RATE (test code = 22 MM/HOUR 1017) CBC W/AUTO [id number] 00:00:00 Test Item Value Reference Range Interpretation [...] (test code = 1016) (NOTE) CBC W/AUTO [id number] 00:00:00 Test Item Value Reference Range Interpretation [...] COMMENTS (test code = 1016) (NOTE) LIPID [id number] 00:00:00 Test Item Value Reference Range Interpretation Comments CHOLESTEROL (test code = 2210) 127 MG/DL TRIGLYCERIDES (test code = 2232) 108 MG/DL HDL CHOLESTEROL (test code = 2220) 33 MG/DL CALC LDL CHOL (test code = 2237) 72 MG/DL RISK RATIO LDL/HDL (test code = 2.19 RATIO 2238) COMPREHENSIVE METABOLIC [id number] 00:00:00 Test Item Value Reference Range Interpretation Comments GLUCOSE (test code = 2217) 99 MG/DL BUN (test code = 2208) 7 MG/DL CREATININE (test code = 2214) 0.47 MG/DL eGFR AMER. (test code 146 ML/MIN/1.73 = 75404) eGFR NON- AMER. (test 126 ML/MIN/1.73 code = 26690) CALC BUN/CREAT (test code = 15 RATIO [...] (test code = 2219) 24 U/L HEMOGLOBIN [id number] 00:00:00 Test Item Value Reference Range Interpretation Comments HEMOGLOBIN A1c (test code = 15903) 6.1 % HEMOGLOBIN [id number] 00:00:00 Test Item Value Reference Range Interpretation Comments HEMOGLOBIN A1c (test code = 99532) 6.1 % [id number] 00:00:00 Test Item Value Reference Range Interpretation Comments TSH (test code = 2821) 1.06 UIU/ML [id number] 00:00:00 Test Item Value Reference Range Interpretation Comments TSH (test code = 2821) 1.06 UIU/ML CBC W/AUTO [id number] 00:00:00 Test Item Value Reference Range Interpretation [...] (test code = 1016) (NOTE) CBC W/AUTO [id number] 00:00:00 Test Item Value Reference Range Interpretation [...] (test code = 1016) (NOTE) CBC W/AUTO [id number] 00:00:00 Test Item Value Reference Range Interpretation [...] COMMENTS (test code = 1016) (NOTE) LIPID [id number] 00:00:00 Test Item Value Reference Range Interpretation Comments CHOLESTEROL (test code = 2210) 127 MG/DL TRIGLYCERIDES (test code = 2232) 108 MG/DL HDL CHOLESTEROL (test code = 2220) 33 MG/DL CALC LDL CHOL (test code = 2237) 72 MG/DL RISK RATIO LDL/HDL (test code = 2.19 RATIO 2238) LIPID [id number] 00:00:00 Test Item Value Reference Range Interpretation Comments CHOLESTEROL (test code = 2210) 127 MG/DL TRIGLYCERIDES (test code = 2232) 108 MG/DL HDL CHOLESTEROL (test code = 2220) 33 MG/DL CALC LDL CHOL (test code = 2237) 72 MG/DL RISK RATIO LDL/HDL (test code = 2.19 RATIO 2238) COMPREHENSIVE METABOLIC [id number] 00:00:00 Test Item Value Reference Range Interpretation Comments GLUCOSE (test code = 2217) 99 MG/DL BUN (test code = 2208) 7 MG/DL CREATININE (test code = 2214) 0.47 MG/DL eGFR AMER. (test code 146 ML/MIN/1.73 = 21959) eGFR NON- AMER. (test 126 ML/MIN/1.73 code = 66068) CALC BUN/CREAT (test code = 15 RATIO [...] code = 2219) 24 U/L COMPREHENSIVE METABOLIC [id number] 00:00:00 Test Item Value Reference Range Interpretation Comments GLUCOSE (test code = 2217) 99 MG/DL BUN (test code = 2208) 7 MG/DL CREATININE (test code = 2214) 0.47 MG/DL eGFR AMER. (test code 146 ML/MIN/1.73 = 16478) eGFR NON- AMER. (test 126 ML/MIN/1.73 code = 15653) CALC BUN/CREAT (test code = 15 RATIO [...] (test code = 2219) 24 U/L HEMOGLOBIN [id number] 00:00:00 Test Item Value Reference Range Interpretation Comments HEMOGLOBIN A1c (test code = 37990) 6.1 % HEMOGLOBIN [id number] 00:00:00 Test Item Value Reference Range Interpretation Comments HEMOGLOBIN A1c (test code = 64093) 6.1 % HEMOGLOBIN [id number] 00:00:00 Test Item Value Reference Range Interpretation Comments HEMOGLOBIN A1c (test code = 02423) 6.1 % [id number] 00:00:00 Test Item Value Reference Range Interpretation Comments TSH (test code = 2821) 1.06 UIU/ML [id number] 00:00:00 Test Item Value Reference Range Interpretation Comments TSH (test code = 2821) 1.06 UIU/ML [id number] 00:00:00 Test Item Value Reference Range Interpretation Comments TSH (test code = 2821) 1.06 UIU/ML CBC W/AUTO [id number] 00:00:00 Test Item Value Reference Range Interpretation [...] (test code = 1016) (NOTE) CBC W/AUTO [id number] 00:00:00 Test Item Value Reference Range Interpretation [...] (test code = 1016) (NOTE) CBC W/AUTO [id number] 00:00:00 Test Item Value Reference Range Interpretation [...] COMMENTS (test code = 1016) (NOTE) LIPID [id number] 00:00:00 Test Item Value Reference Range Interpretation Comments CHOLESTEROL (test code = 2210) 127 MG/DL TRIGLYCERIDES (test code = 2232) 108 MG/DL HDL CHOLESTEROL (test code = 2220) 33 MG/DL CALC LDL CHOL (test code = 2237) 72 MG/DL RISK RATIO LDL/HDL (test code = 2.19 RATIO 2238) LIPID [id number] 00:00:00 Test Item Value Reference Range Interpretation Comments CHOLESTEROL (test code = 2210) 127 MG/DL TRIGLYCERIDES (test code = 2232) 108 MG/DL HDL CHOLESTEROL (test code = 2220) 33 MG/DL CALC LDL CHOL (test code = 2237) 72 MG/DL RISK RATIO LDL/HDL (test code = 2.19 RATIO 2238) COMPREHENSIVE METABOLIC [id number] 00:00:00 Test Item Value Reference Range Interpretation Comments GLUCOSE (test code = 2217) 99 MG/DL BUN (test code = 2208) 7 MG/DL CREATININE (test code = 2214) 0.47 MG/DL eGFR AMER. (test code 146 ML/MIN/1.73 = 99157) eGFR NON- AMER. (test 126 ML/MIN/1.73 code = 40027) CALC BUN/CREAT (test code = 15 RATIO 2235) SODIUM (test code = 2231) 142 MEQ/L POTASSIUM (test code = 2228) 4.2 MEQ/L CHLORIDE (test code = 2215) 103 MEQ/L CARBON DIOXIDE (test code = 24 MEQ/L 2205) CALCIUM (test code = 2209) 9.4 MG/DL PROTEIN, TOTAL (test code = 8.0 G/DL 222) ALBUMIN (test code = 2201) 3.8 G/DL CALC GLOBULIN (test code = 4.2 G/DL 2240) CALC A/G RATIO (test code = 0.9 RATIO 2234) BILIRUBIN, TOTAL (test code = 0.3 MG/DL 2206) ALKALINE PHOSPHATASE (test 109 U/L code = 2204) AST (test code = 2218) 23 U/L ALT (test code = 2219) 24 U/L COMPREHENSIVE METABOLIC [id number] 00:00:00 Test Item Value Reference Range Interpretation Comments GLUCOSE (test code = 2217) 99 MG/DL BUN (test code = 2208) 7 MG/DL CREATININE (test code = 2214) 0.47 MG/DL eGFR AMER. (test code 146 ML/MIN/1.73 = 69558) eGFR NON- AMER. (test 126 ML/MIN/1.73 code = 88724) CALC BUN/CREAT (test code = 15 RATIO 5) SODIUM (test code = 2231) 142 MEQ/L [...] (test code = 2219) 24 U/L HEMOGLOBIN [id number] 00:00:00 Test Item Value Reference Range Interpretation Comments HEMOGLOBIN A1c (test code = 61286) 6.1 % HEMOGLOBIN [id number] 00:00:00 Test Item Value Reference Range Interpretation Comments HEMOGLOBIN A1c (test code = 63900) 6.1 % HEMOGLOBIN [id number] 00:00:00 Test Item Value Reference Range Interpretation Comments HEMOGLOBIN A1c (test code = 73828) 6.1 % [id number] 00:00:00 Test Item Value Reference Range Interpretation Comments TSH (test code = 2821) 1.06 UIU/ML [id number] 00:00:00 Test Item Value Reference Range Interpretation Comments TSH (test code = 2821) 1.06 UIU/ML [id number] 00:00:00 Test Item Value Reference Range Interpretation Comments TSH (test code = 2821) 1.06 UIU/ML CBC W/AUTO [id number] 00:00:00 Test Item Value Reference Range Interpretation [...] (test code = 1016) (NOTE) CBC W/AUTO [id number] 00:00:00 Test Item Value Reference Range Interpretation [...] (test code = 1016) (NOTE) CBC W/AUTO [id number] 00:00:00 Test Item Value Reference Range Interpretation [...] COMMENTS (test code = 1016) (NOTE) LIPID [id number] 00:00:00 Test Item Value Reference Range Interpretation Comments CHOLESTEROL (test code = 2210) 127 MG/DL TRIGLYCERIDES (test code = 2232) 108 MG/DL HDL CHOLESTEROL (test code = 2220) 33 MG/DL CALC LDL CHOL (test code = 2237) 72 MG/DL RISK RATIO LDL/HDL (test code = 2.19 RATIO 2238) LIPID [id number] 00:00:00 Test Item Value Reference Range Interpretation Comments CHOLESTEROL (test code = 2210) 127 MG/DL TRIGLYCERIDES (test code = 2232) 108 MG/DL HDL CHOLESTEROL (test code = 2220) 33 MG/DL CALC LDL CHOL (test code = 2237) 72 MG/DL RISK RATIO LDL/HDL (test code = 2.19 RATIO 2238) COMPREHENSIVE METABOLIC [id number] 00:00:00 Test Item Value Reference Range Interpretation Comments GLUCOSE (test code = 2217) 99 MG/DL BUN (test code = 2208) 7 MG/DL CREATININE (test code = 2214) 0.47 MG/DL eGFR AMER. (test code 146 ML/MIN/1.73 = 26335) eGFR NON- AMER. (test 126 ML/MIN/1.73 code = 94221) CALC BUN/CREAT (test code = 15 RATIO [...] code = 2219) 24 U/L COMPREHENSIVE METABOLIC [id number] 00:00:00 Test Item Value Reference Range Interpretation Comments GLUCOSE (test code = 2217) 99 MG/DL BUN (test code = 2208) 7 MG/DL CREATININE (test code = 2214) 0.47 MG/DL eGFR AMER. (test code 146 ML/MIN/1.73 = 90943) eGFR NON- AMER. (test 126 ML/MIN/1.73 code = 55630) CALC BUN/CREAT (test code = 15 RATIO [...] (test code = 2219) 24 U/L HEMOGLOBIN [id number] 00:00:00 Test Item Value Reference Range Interpretation Comments HEMOGLOBIN A1c (test code = 57440) 6.1 % HEMOGLOBIN [id number] 00:00:00 Test Item Value Reference Range Interpretation Comments HEMOGLOBIN A1c (test code = 96457) 6.1 % HEMOGLOBIN [id number] 00:00:00 Test Item Value Reference Range Interpretation Comments HEMOGLOBIN A1c (test code = 16067) 6.1 % [id number] 00:00:00 Test Item Value Reference Range Interpretation Comments TSH (test code = 2821) 1.06 UIU/ML [id number] 00:00:00 Test Item Value Reference Range Interpretation Comments TSH (test code = 2821) 1.06 UIU/ML [id number] 00:00:00 Test Item Value Reference Range Interpretation Comments TSH (test code = 2821) 1.06 UIU/ML CBC W/AUTO [id number] 00:00:00 Test Item Value Reference Range Interpretation [...] (test code = 1016) (NOTE) CBC W/AUTO [id number] 00:00:00 Test Item Value Reference Range Interpretation [...] (test code = 1016) (NOTE) CBC W/AUTO [id number] 00:00:00 Test Item Value Reference Range Interpretation [...] COMMENTS (test code = 1016) (NOTE) LIPID [id number] 00:00:00 Test Item Value Reference Range Interpretation Comments CHOLESTEROL (test code = 2210) 127 MG/DL TRIGLYCERIDES (test code = 2232) 108 MG/DL HDL CHOLESTEROL (test code = 2220) 33 MG/DL CALC LDL CHOL (test code = 2237) 72 MG/DL RISK RATIO LDL/HDL (test code = 2.19 RATIO 2238) LIPID [id number] 00:00:00 Test Item Value Reference Range Interpretation Comments CHOLESTEROL (test code = 2210) 127 MG/DL TRIGLYCERIDES (test code = 2232) 108 MG/DL HDL CHOLESTEROL (test code = 2220) 33 MG/DL CALC LDL CHOL (test code = 2237) 72 MG/DL RISK RATIO LDL/HDL (test code = 2.19 RATIO 2238) COMPREHENSIVE METABOLIC [id number] 00:00:00 Test Item Value Reference Range Interpretation Comments GLUCOSE (test code = 2217) 99 MG/DL BUN (test code = 2208) 7 MG/DL CREATININE (test code = 2214) 0.47 MG/DL eGFR AMER. (test code 146 ML/MIN/1.73 = 43326) eGFR NON- AMER. (test 126 ML/MIN/1.73 code = 74633) CALC BUN/CREAT (test code = 15 RATIO [...] code = 2219) 24 U/L COMPREHENSIVE METABOLIC [id number] 00:00:00 Test Item Value Reference Range Interpretation Comments GLUCOSE (test code = 2217) 99 MG/DL BUN (test code = 2208) 7 MG/DL CREATININE (test code = 2214) 0.47 MG/DL eGFR AMER. (test code 146 ML/MIN/1.73 = 65231) eGFR NON- AMER. (test 126 ML/MIN/1.73 code = 88204) CALC BUN/CREAT (test code = 15 RATIO [...] (test code = 2219) 24 U/L HEMOGLOBIN [id number] 00:00:00 Test Item Value Reference Range Interpretation Comments HEMOGLOBIN A1c (test code = 39796) 6.1 % HEMOGLOBIN [id number] 00:00:00 Test Item Value Reference Range Interpretation Comments HEMOGLOBIN A1c (test code = 95194) 6.1 % HEMOGLOBIN [id number] 00:00:00 Test Item Value Reference Range Interpretation Comments HEMOGLOBIN A1c (test code = 27588) 6.1 % [id number] 00:00:00 Test Item Value Reference Range Interpretation Comments TSH (test code = 2821) 1.06 UIU/ML [id number] 00:00:00 Test Item Value Reference Range Interpretation Comments TSH (test code = 2821) 1.06 UIU/ML [id number] 00:00:00 Test Item Value Reference Range Interpretation Comments TSH (test code = 2821) 1.06 UIU/ML
[2022-07-01] MEDS ORDERED: IPRATROPIUM BROM 0.5MG/2.5ML ONE (11:59)
[2022-07-01] MEDS ORDERED: ALBUTEROL 2.5 MG/3 ML NEB SOL ONE (11:59)
[2022-07-01] MEDS ORDERED: dexAMETHasone 10 MG/ML VIAL ONE (11:59)
[2022-07-01 12:20] LABS: Absolute Lymphocytes (CBC) 1.4 K/uL (0.7-4.9); Hematocrit 36.3 % (36.0-45.0); Lymphocytes % 11.9 % (15.3-44.8); MPV 8.2 fL (7.6-11.3); RBC Red Blood Cell Count 4.33 M/uL (3.86-4.86)
--- NOTE | 2022-07-01 12:33 | RAD REPORT ---
EXAM DESCRIPTION: RAD - Chest Single View - 07/01/2022 12:26 pm CLINICAL HISTORY: CHEST PAIN Chest pain. COMPARISON: <Comparisons> FINDINGS: Portable technique limits examination quality. Mild interstitial pulmonary edema seen. The heart is mildly enlarged in size. No displaced fractures. Right-sided catheter tubing. IMPRESSION: Mild CHF.
[2022-07-01 12:38] LABS: Magnesium 1.8 mg/dL (1.6-2.4); Potassium 3.8 mEq/L (3.5-5.1)
--- NOTE | 2022-07-01 13:27 | RAD REPORT ---
EXAM DESCRIPTION: CT - Chest For Pe Angio - 07/01/2022 1:12 pm CLINICAL HISTORY: Chest pain. CHEST PAIN COMPARISON: Chest For Pe Angio dated 08/26/2021 TECHNIQUE: CT angiogram of the pulmonary arteries was performed with MIP. All CT scans are performed using dose optimization technique as appropriate and may include automated exposure control or mA/KV adjustment according to patient size. FINDINGS: No evidence of pulmonary thromboembolism. No acute aortic finding demonstrated. Mild bilateral ground-glass opacities likely representing mild interstitial pulmonary edema. Trace left pleural fluid. No concerning bony finding. Fatty liver noted. IMPRESSION: No evidence of pulmonary thromboembolism. Mild CHF versus volume overload.
[2022-07-01] MEDS ORDERED: FUROSEMIDE 40 MG/4 ML VIAL ONE (14:02)
--- NOTE | 2022-07-01 15:23 | ER ---
Nurse's Notes [facility] Name: Kina Parham Age: 42 yrs Sex: Female : 1980 Arrival Date: 07/01/2022 Time: 11:39 Bed 20 Private MD: Diagnosis: Chest pain, unspecified;Volume overload Presentation: 07/01 11:48 Chief complaint: Left sided chest pain and SOB since 0400 today. Coronavirus screen: At this time, the client does not indicate any symptoms associated with coronavirus-19. Ebola Screen: No symptoms or risks identified at this time. Initial Sepsis Screen: Does the patient meet any 2 criteria? No. Patient's initial sepsis screen is negative. Does the patient have a suspected source of infection? No. Patient's initial sepsis screen is negative. Risk Assessment: Do you want to hurt yourself or someone else? Patient reports no desire to harm self or others. Onset of symptoms. 11:48 Method Of Arrival: Ambulatory 11:48 Acuity: DOMINIC 3 hb Historical: - Allergies: 11:49 No Known Allergies; hb - Home Meds: 11:49 Acetazolamide Oral [Active]; amlodipine oral [Active]; lisinopril Oral [Active]; hb Metformin Oral [Active]; - PMHx: 11:49 Arthritis; Asthma; Hypertension; Pneumonia; hb - PSHx: 11:49 tubal ligation; hb - Immunization history:: Adult Immunizations up to date, Client reports receiving the 2nd dose of the Covid vaccine. - Social history:: Smoking status: Patient denies any tobacco usage or history of. Patient/guardian denies using alcohol. Screenin:15 [facility] ED Fall Risk Assessment (Adult) History of falling in the last 3 months, ld1 including since admission No falls in past 3 months (0 pts). Abuse screen: Denies threats or abuse. Denies injuries from another. Nutritional screening: No deficits noted. Tuberculosis screening: No symptoms or risk factors identified. Assessment: 12:15 General: Appears in no apparent distress. comfortable, Behavior is calm, cooperative, ld1 appropriate for age. Pain: Complains of pain in left posterior lower lobe and left posterior upper lobe Pain does not radiate. Pain currently is 8 out of 10 on a pain scale. Quality of pain is described as throbbing, Is continuous. Neuro: Level of Consciousness is awake, alert, obeys commands, Oriented to person, place, time, situation. Cardiovascular: Capillary refill < 3 seconds Patient's skin is warm and dry. Rhythm is sinus rhythm. Respiratory: Airway is patent Respiratory effort is even, unlabored. GI: Abdomen is round non-distended, obese. : No signs and/or symptoms were reported regarding the genitourinary system. EENT: No signs and/or symptoms were reported regarding the EENT system. Derm: No signs and/or symptoms reported regarding the dermatologic system. Musculoskeletal: No signs and/or symptoms reported regarding the musculoskeletal system. 13:18 Reassessment: Patient appears in no apparent distress at this time. No changes from ld1 previously documented assessment. Patient and/or family updated on plan of care and expected duration. Pain level reassessed. Patient is alert, oriented x 3, equal unlabored respirations, skin warm/dry/pink. 14:34 Reassessment: Patient appears in no apparent distress at this time. Patient and/or ld1 family updated on plan of care and expected duration. Pain level reassessed. Vital Signs: 11:48 BP 181 / 100; Pulse 102; Resp 18; Temp 98.4; Pulse Ox 95% on R/A; Weight 120.2 kg; hb Height 5 ft. 3 in. ; Pain 10/10; 12:15 BP 157 / 101; Pulse 89; Resp 26; Pulse Ox 100% on Nebulizer Mask; Pain 8/10; ld1 13:18 BP 163 / 89; Pulse 93; Resp 23; Pulse Ox 94% on R/A; ld1 14:34 BP 167 / 101; Pulse 89; Resp 17; Pulse Ox 95% on R/A; ld1 11:48 Body Mass Index 46.94 (120.20 kg, 160.02 cm) hb 11:48 Pain Scale: Adult hb 12:15 Pain Scale: Adult ld1 ED Course: 11:42 Patient arrived in ED. mr 11:43 Adilene Brown FNP-C is [facility]. kb 11:44 John Cha MD is Attending Physician. kb 11:49 Triage completed. hb 11:56 Erika Huff, GLORIA is Primary Nurse. ld1 12:15 Patient has correct armband on for positive identification. Placed in gown. Bed in low ld1 position. Call light in reach. Side rails up X2. therapy manager on. Pulse ox on. NIBP on. Door closed. Noise minimized. Warm blanket given. 12:15 No provider procedures requiring assistance completed. Inserted saline lock: 20 gauge ld1 in right antecubital area, using aseptic technique. Blood collected. Oxygen administered via a nebulizer mask. 12:28 XRAY Chest (1 view) In Process Unspecified. EDMS 13:14 CT Chest For PE Angio In Process Unspecified. EDMS 15:40 IV discontinued, intact, bleeding controlled, No redness/swelling at site. ld1 Administered Medications: 12:15 Drug: Decadron - Dexamethasone IVP 10 mg Route: IVP; Site: right antecubital; ld1 12:15 Drug: DuoNeb Nebulize (3:1) (2.5 mg - 0.5 mg) 3 ml Route: Nebulizer; ld1 13:59 Drug: Furosemide IVP 40 mg Route: IVP; Site: right antecubital; ld1 Medication: 15:40 VIS not applicable for this client. ld1 Outcome: 15:23 Discharge ordered by . kb 15:39 Discharged to home ambulatory, with family. ld1 15:39 Condition: stable 15:39 Discharge instructions given to patient, Instructed on discharge instructions, follow up and referral plans. medication usage, Demonstrated understanding of instructions, follow-up care, medications, Prescriptions given X 1. 15:40 Patient left the ED. ld1 Signatures: Dispatcher [employer] EDSC Adilene Brown, Nilda Bynum Willa Coello, GLORIA CASTRO Erika Huff RN RN ld1
--- NOTE | 2022-07-01 15:23 | EDPHYS ---
Physician Documentation [facility] Name: Kina Parham Age: 42 yrs Sex: Female : 1980 Arrival Date: 07/01/2022 Time: 11:39 Bed 20 Private MD: ED Physician John Cha HPI: 07/01 12:57 This 42 yrs old Female presents to ER via Ambulatory with complaints of Chest kb Pain. 12:57 The patient or guardian reports chest pain that is located primarily in the anterior kb chest wall, left. Onset: this morning, at 04:30. The pain does not radiate. Associated signs and symptoms: Pertinent positives: shortness of breath. The chest pain is described as dull. Duration: The patient or guardian reports a single episode, that is still ongoing. Modifying factors: The symptoms are alleviated by nothing. the symptoms are aggravated by nothing. Severity of pain: At its worst the pain was moderate in the emergency department the pain is unchanged. The patient has not experienced similar symptoms in the past. The patient has not recently seen a physician. Historical: - Allergies: 11:49 No Known Allergies; hb - Home Meds: 11:49 Acetazolamide Oral [Active]; amlodipine oral [Active]; lisinopril Oral [Active]; hb Metformin Oral [Active]; - PMHx: 11:49 Arthritis; Asthma; Hypertension; Pneumonia; hb - PSHx: 11:49 tubal ligation; hb - Immunization history:: Adult Immunizations up to date, Client reports receiving the 2nd dose of the Covid vaccine. - Social history:: Smoking status: Patient denies any tobacco usage or history of. Patient/guardian denies using alcohol. ROS: 12:56 Constitutional: Negative for fever, chills, and weight loss. kb 12:56 Cardiovascular: Positive for chest pain. 12:56 Respiratory: Positive for shortness of breath. 12:56 All other systems are negative. Exam: 12:05 Constitutional: This is a well developed, well nourished patient who is awake, alert, kb and in no acute distress. Head/Face: Normocephalic, atraumatic. ENT: Moist Mucous membranes Cardiovascular: Regular rate and rhythm with a normal S1 and S2. No gallops, murmurs, or rubs. No pulse deficits. Abdomen/GI: Soft, non-tender. No distention Skin: Warm, dry with normal turgor. Normal color. MS/ Extremity: Pulses equal, no cyanosis. Neurovascular intact. Full, normal range of motion. Neuro: Awake and alert, GCS 15, oriented to person, place, time, and situation. Moves all extremities. Normal gait. 12:05 ECG was reviewed by the Attending Physician. 12:05 Respiratory: the patient does not display signs of respiratory distress, Respirations: normal, Breath sounds: wheezing: expiratory that is moderate, is heard in the left posterior upper lobe and left posterior lower lobe. Vital Signs: 11:48 BP 181 / 100; Pulse 102; Resp 18; Temp 98.4; Pulse Ox 95% on R/A; Weight 120.2 kg; hb Height 5 ft. 3 in. ; Pain 10/10; 12:15 BP 157 / 101; Pulse 89; Resp 26; Pulse Ox 100% on Nebulizer Mask; Pain 8/10; ld1 13:18 BP 163 / 89; Pulse 93; Resp 23; Pulse Ox 94% on R/A; ld1 14:34 BP 167 / 101; Pulse 89; Resp 17; Pulse Ox 95% on R/A; ld1 11:48 Body Mass Index 46.94 (120.20 kg, 160.02 cm) hb 11:48 Pain Scale: Adult hb 12:15 Pain Scale: Adult ld1 MDM: 11:44 Patient medically screened. kb 14:40 ED course: Discussed case with Dr Cha, who evaluated the patient as well. Recommends brooke mcguire now and upon discharge for 3 days, as well as a repeat troponin. . 15:20 Data reviewed: vital signs, nurses notes. kb 15:20 Differential diagnosis: abnormal EKG, acute myocardial infarction, coronary artery kb disease chest wall pain, congestive heart failure pulmonary embolus. Consideration of Admission/Observation Escalation of care including admission/observation considered. admission considered for chest pain, but decision made for outpatient follow up after serial troponins and Dr Cha's evaluation. Counseling: I had a detailed discussion with the patient and/or guardian regarding: the historical points, exam findings, and any diagnostic results supporting the discharge/admit diagnosis, lab results, radiology results, the need for outpatient follow up, a bead wire taper, a family practitioner, to return to the emergency department if symptoms worsen or persist or if there are any questions or concerns that arise at home. 07/01 11:48 Order name: Basic Metabolic Panel; Complete Time: 12:45 kb 07/01 11:48 Order name: CBC with Diff; Complete Time: 12:30 kb 07/01 11:48 Order name: D-Dimer; Complete Time: 12:30 kb 07/01 11:48 Order name: Magnesium; Complete Time: 12:45 kb 07/01 11:48 Order name: NT PRO-BNP; Complete Time: 12:45 kb 07/01 11:48 Order name: Troponin HS; Complete Time: 12:45 kb 07/01 13:56 Order name: Troponin High Sensitivity; Complete Time: 15:20 ld1 07/01 11:48 Order name: XRAY Chest (1 view); Complete Time: 12:34 kb 07/01 12:31 Order name: CT Chest For PE Angio; Complete Time: 13:31 kb 07/01 11:48 Order name: EKG; Complete Time: 11:48 kb 07/01 11:48 Order name: Cardiac monitoring; Complete Time: 12:15 kb 07/01 11:48 Order name: EKG - Nurse/Tech; Complete Time: 12:15 kb 07/01 11:48 Order name: IV Saline Lock; Complete Time: 12:15 kb 07/01 11:48 Order name: Labs collected and sent; Complete Time: 12:15 kb 07/01 11:48 Order name: O2 Per Protocol; Complete Time: 11:56 kb 07/01 11:48 Order name: O2 Sat Monitoring; Complete Time: 11:56 kb EC:05 Rate is 95 beats/min. Rhythm is regular. QRS North is Normal. HI interval is normal at kb 176 msec. QRS interval is normal at 92 msec. QT interval is normal at 444 msec. Administered Medications: 12:15 Drug: Decadron - Dexamethasone IVP 10 mg Route: IVP; Site: right antecubital; ld1 12:15 Drug: DuoNeb Nebulize (3:1) (2.5 mg - 0.5 mg) 3 ml Route: Nebulizer; ld1 13:59 Drug: Furosemide IVP 40 mg Route: IVP; Site: right antecubital; ld1 Disposition: 13:54 Co-signature as Attending Physician, John Cha MD I agree with the assessment and rn plan of care. I reviewed the patient's care provided by Advanced Practice Provider \T\ agree w/ the diagnosis \T\ care plan. I personally saw the pt \T\ performed a substantive portion of the visit, incldng all aspects of the (History/Exam/Medical Decision Making). 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 HPI: 42 year female with chest pain since this AM, woke her up from sleep, no trauma, + mild sob. NO hx of dvt/pe/chf. No fever. Disposition Summary: 07/01/22 15:23 Discharge Ordered Location: Home kb Condition: Stable kb Diagnosis - Chest pain, unspecified kb - Volume overload kb Followup: kb - With: Emergency Department - When: As needed - Reason: Worsening of condition Followup: kb - With: Private Physician - When: 2 - 3 days - Reason: Recheck today's complaints, Continuance of care, Re-evaluation by your physician Discharge Instructions: - Discharge Summary Sheet kb - Nonspecific Chest Pain, Adult, [id number] kb - Pulmonary Edema, [id number] kb Forms: - Medication Reconciliation Form kb - Thank You Letter kb - Antibiotic Education kb - Prescription Opioid Use kb Prescriptions: - Lasix 20 mg Oral Tablet - take 1 tablet by ORAL route 2 times per day for 3 days; 6 tablet; Refills: 0, kb Product Selection Permitted Signatures: Dispatcher [employer] Adilene Harrison, ELIZABETH-C MILLING/POLISHING OPERATOR-John Grijalva MD MD rn Baxter, Heather, GLORIA CASTRO Erika Huff RN RN ld1
[2022-07-01 15:49] VITALS: TEMP 98.4
[2022-07-01 15:52] VITALS: BP 167/101; O2SAT 95
--- NOTE | 2022-07-04 15:27 | EKG ---
Test Date: 2022-07-01 Test Time: 12:01:13 Global Account Director: Jessica GRIGGS MEASUREMENT RESULTS: Intervals: Rate: 95 OK: 176 QRSD: 92 QT: 354 QTc: 444 Newman: P: 51 OK: 176 QRS: 68 T: 19 INTERPRETIVE STATEMENTS: Normal sinus rhythm Normal ECG Compared to ECG 02/19/2022 17:27:52 No significant changes Electronically Signed On 07-04-22 15:22:25 CDT by Christian Noyola
== END 2022-07-01 15:40 | disposition home or self-care (01) ==
LOC: ER 11:39
DX: R07.89 Other chest pain (principal); E87.70 Fluid overload, unspecified; I10 Essential (primary) hypertension
CPT/HCPCS: 85025; 80048; 36415; 83735; 85379; 84484 ×2; 83880; 71275; 71045; Q9967; J1940; J7613; J7644; J1100; 93005

== ENCOUNTER 2022-09-14 17:07 | Inpatient (IN) | payer OTHER ==
--- OUTSIDE RECORDS SUMMARY | 2022-09-14 17:24 | XMS REPORT | Continuity of Care Document ---
:1980 Author Organization [facility] t Address [address] [place] [address] [place] [id number] Care Team Providers Name Role Phone JERICHO COFFEY Primary Care Physician Unavailable GRICELDA HEARN Attending Clinician Unavailable JERICHO COFFEY Attending Clinician Unavailable MIGUEL MENDOZA Attending Clinician Unavailable Renata Acosta DO Attending Clinician Miguel Mendoza MD Attending Clinician JORDAN GRIMALDO Attending Clinician Unavailable JORDAN GRIMALDO Attending Clinician Unavailable ALAN BENJAMIN Attending Clinician Unavailable Alan Benjamin DO Attending Clinician LAB90 Attending Clinician Unavailable STEPHANIE CLAYTON Attending Clinician Unavailable Doctor Unassigned, Presho Attending Clinician Unavailable Rufina Campos RN Attending Clinician Leila Junior MD, Salbador Attending Clinician Snehal DEVINE, Shannan Attending Clinician SAVANNA ALEX Attending Clinician Unavailable TOMOGRAPHY, CK OPTICAL COHERENCE Attending Clinician Unavail able BARRY GUEVARA Attending Clinician Unavailable Magda Gilliam LVN Attending Clinician JONES PHIPPS Attending Clinician Unavailable Mariusz Deluca MD Attending Clinician Arnold Laureano MD Attending Clinician Mayte Addison DO Attending Clinician Jones Phipps MD Attending Clinician Nataliia DEVINE, Tracie Attending Clinician ARNOLD ALUREANO Attending Clinician Unavailable Jeanna Small Attending Clinician Payal Ray MD Attending Clinician PAYAL RAY Attending Clinician Unavailable RENATA ACOSTA Attending Clinician Unavailable Tamika Vieira DO Attending Clinician Vitaliy Eason DO Attending Clinician TAMIKA VIEIRA Attending Clinician Unavailable Carolynn Lopez MD Attending Clinician RENATA ACOSTA Admitting Clinician Unavailable ALAN BENJAMIN Admitting Clinician Unavailable JORDAN GRIMALDO Admitting Clinician Unavailable TRACIE WILLIAM Admitting Clinician Unavailable Tracie William MD Admitting Clinician ARNOLD LAUREANO Admitting Clinician Unavailable Payal Ray MD Admitting Clinician PAYAL RAY Admitting Clinician Unavailable Vitaliy Eason DO Admitting Clinician CAROLYNN LOPEZ Admitting Clinician Unavailable Carolynn Lopez MD Admitting Clinician Payers Payer Name Policy Type Policy Number Effective Date Expiration Date 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 [id number] 2022 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 [employer]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 [id number] 2022 OUT OF NETWORK 00:00:00 Problems Condition Condition Condition Status Onset Resolution [...] Other Disease Active 2021-02 Univers headache headache 03-13 ity of syndrome syndrome 00:00: 00 Medical Branch Hypoxia Hypoxia Disease Active 2021-02 Univers 1-28 ity of 00:00: [place] [facility] Asthma Asthma Disease Active Univers with acute with acute 18 it y of exacerbati exacerb[place] on, 00 Medical unspecifie unspecifie Br anch d asthma d asthma severity, severity, unspecifie unspecifie d whether d whether persistent persistent Shortness Shortness Disease Active Uni vers of breath of breath 5-27 ity of 00:00: 00 Medical Branch Pneumonia Pneumonia Disease Active Uni vers 5-27 ity of 00:00: [place] 00 Medical Branch RESENDIZ RESENDIZ Disease Active Univers (dyspnea (dyspnea 5-27 ity of on on 00:00: [place] exertion) exertion) 00 [facility] Branch Tachycardi Tachycardi Disease Active U nivers a a 5-27 ity of 00:00: [place] 00 Medical Branch Essential Essential Disease Active Uni vers hypertensi hypertensi 5-27 it y of on on 00:00: 00 Medical Branch Normal Normal Disease Active Univers delivery delivery 8 ity of 00:00: [place] 00 Medical Branch Screening Screening Disease Active Overview: Univers for for 7-21 Formattin ity of diabetes diabetes 00:00: g of this Kike as mellitus mellitus 00 note Medica l might be Branch different from the original. 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 Carrier or Carrier or Disease Active U nivers suspected suspected ity of carrier of carrier of [place] group B group B Medical Streptococ Streptococ Br anch cus cus Insufficie Insufficie Disease Active U nivers nt nt ity of [facility] Other Other Disease Active Univers abnormal abnormal ity of glucose glucose [facility] Other Other Disease Active Univers ity of screening screening [facility] Screening Screening Disease Active Uni vers examinatio examinatio it y of n for n for [place] rubella rubella [facility] Supervisio Supervisio Disease Active U nivers n of other n of other it y of normal normal [place] [facility] Allergies, Adverse Reactions, Alerts Allergy Allergy Status Severity Reaction(s) Onset Inactive Treating Comm ents Source Name Type Date Date Clinician NO KNOWN Drug Active Univers ALLERGIE Class ity of S [facility] Family History Family Member Diagnosis Comments Start Date Stop Date Source Natural father Diabetes [facility] Natural mother Diabetes [facility] Social History Social Habit Start Date Stop Date Quantity Comments Source Gender identity [facility] Sexual orientation Univer [facility] History of tobacco Passive smoker Un iversity of use [facility] History SDOH Social Unive rsity of [facility] Med ical Together Branch History SDOH Social Unive rsity of [facility] Branch History SDOH Social Unive rsity of [facility] Medical Membership Branch History SDOH Social Unive rsity of [facility] Medical Meetings Branch Alcohol intake 2022-08-15 2022-08-15 Lifetime Franny Louis bold - 00:00:00 00:00:00 non-drinker External (finding) Exposure to 2022-05-24 2022-06-03 Not sure University of SARS-CoV-2 (event) 00:00:00 12:56:00 [facility] History of Social 2022-06-03 2022-06-03 Univers ity of function 00:00:00 00:00:00 [facility] Tobacco use and 2022-04-29 2022-04-29 Smokeless Universit y of exposure 00:00:00 00:00:00 tobacco non-user [place] Me dical Branch History SDOH 2022-04-29 2022-04-29 1 University o f Alcohol Frequency 00:00:00 00:00:00 [place] M edical Branch History SDOH 2022-04-29 2022-04-29 0 University o f Alcohol Std Drinks 00:00:00 00:00:00 [place] [facility] History SDOH 2022-04-29 2022-04-29 1 University o f Alcohol Binge 00:00:00 00:00:00 [place] Medic al Branch History SDOH Social 2022-04-29 2022-04-29 5 Unive rsity of Connections Phone 00:00:00 00:00:00 [place] M edical Branch History SDOH Social 2022-04-29 2022-04-29 3 Unive rsity of Connections Living 00:00:00 00:00:00 [place] [facility] History SDOH 2022-04-29 2022-04-29 0 University o f Physical Activity 00:00:00 00:00:00 [place] M edical DPW Branch History SDOH 2022-04-29 2022-04-29 0 University o f Physical Activity 00:00:00 00:00:00 [place] M edical MPS Branch History SDOH 2022-04-29 2022-04-29 4 University o f Financial 00:00:00 00:00:00 [place] [facility] History SDOH Food 2022-04-29 2022-04-29 1 Univers ity of Worry 00:00:00 00:00:00 [place] [facility] History SDOH Food 2022-04-29 2022-04-29 1 Univers ity of Scarcity 00:00:00 00:00:00 [place] [facility] History SDOH 2022-04-29 2022-04-29 2 University o f Transport Med 00:00:00 00:00:00 [place] Medic al Branch History SDOH 2022-04-29 2022-04-29 2 University o f Transport Non-Med 00:00:00 00:00:00 [place] M edical Branch Education 2022-04-20 2022-04-20 7 Franny Mi - 00:00:00 00:00:00 External Sex [birth year] At [birth year] Franny Hartley ybold - 00:00:00 00:00:00 External Smoking Status Start Date Stop Date Source Never smoked tobacco [facility] Tobacco smoking consumption [facility] Branch Medications Ordered Filled Start Stop Current Ordering Indication Dosage Frequency Signature Comments Components Source Medication Medication Date Date Medication? Clinician (SIG) Name Name ipratropium 2022- No 3mL 3 mL, Univ ers -albuteroL 09-08 Inhalation it y of (DUONEB) 04:30: 03:32 , ONCE, 1 [place] as 0.5 mg-3 00 :00 dose, On Medical mg(2.5 mg [facility] base)/3 mL 09/07/22 at nebulizer 2330, solution 3 Routine mL albuterol 2022- No 7.5mg 7.5 mg, Uni vers (PROVENTIL) 09-08 Inhalation i ty of 2.5 mg /3 04:30: 03:32 , [place]CE[place] 1 [place] mL (0.083 00 :00 dose, On Medica l %) [facility] nebulizer 09/07/22 at solution 2330, STAT 7.5 mg methylPREDN 2022- No 40mg 40 mg, Uni vers ISolone sod 09-08 Intravenou i ty of succ 03:30: 03:50 s, ONCE, 1 [place] (SOLU-MEDRO 00 :00 dose, On Medi charles L (PF)) [facility] injection 09/07/22 at 40 mg 2230, LOGAN traMADoL Yes [id number] 50mg Take 1 Univers (ULTRAM) 50 09-08 tablet by ity of mg tablet 00:00: mouth [place] 00 every 6 Medical (six) Branch hours as needed for Pain (scale 4-6). Indication s: acute pain diphenhydrA 2022- No 25mg 25 mg, Uni vers MINE 08-18 Slow IV ity of (BENADRYL) 23:45: 00:06 Push, [place] injection 00 :00 ONCE, 1 Medical 25 mg dose, On Branch Astrid 08/18/22 at 1845, STAT metoclopram 2022- No 10mg 10 mg, Uni vers young HCl 08-18- Slow IV ity of (REGLAN) 23:45: 00:06 Push, [place] injection 00 :00 ONCE, 1 Medical 10 mg dose, On Branch [facility] 08/18/22 at 1845, LOGAN Amlodipine 2022-0 Yes [id number] 10mg Take 1 K elsey Besylate 10 - tablet (10 Se ybold MG oral 00:00: mg total) - Tablet 00 by mouth Externa daily l Budesonide- 2022-0 Yes [id number] 2{puff} Inhale 2 Franny Formoterol 7-03 puffs into Sey bold Fumarate 00:00: the lungs - 160-4.5 00 2 times Externa MCG/ACT daily l inhalation Aerosol Albuterol 2022-0 Yes [id number] 2{puff} Q.25D Inhale 2 Franny HFA 108 (90 7-03 puffs into Se ybold Base) 00:00: the lungs - MCG/ACT IN 00 every 6 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 Tender a AERS hours as l needed for wheezing or shortness of breath Loratadine 2022-0 Yes [id number] 10mg Take 1 K elsey (Claritin) - tablet (10 Sey bold 10 MG oral 00:00: mg total) - tablet 00 by mouth Externa daily l Lisinopril 2022-0 2022- No [id number] TAKE 1 Franny 10 MG oral 08-15- TABLET BY Sey bold Tablet 00:00: 00:00 MOUTH - 00 :00 EVERY DAY Externa l Furosemide 2022-0 2022- No 20mg Take 1 Gloria ey (LASIX) 20 -31 08- tablet (20 Se ybold MG oral 00:00: 00:00 mg total) - Tablet 00 :00 by mouth 2 Externa times l daily FOR 3 DAYS Benzonatate 2022-0 2022- No TAKE 1 Aaron sey 100 MG oral 06-22- CAPSULE BY S eybold Capsule 00:00: 00:00 MOUTH - 00 :00 THREE Externa TIMES A l DAY NEEDED COUGH predniSONE 2022-0 2022- No 20mg Take 1 Gloria ey (DELTASONE) 5-11 19- tablet (20 S eybold 20 MG oral 00:00: 00:00 mg total) - tablet 00 :00 by mouth 2 Externa times l daily Amlodipine 2022-0 Yes [id number] 5mg Take 1 K elsey Besylate 4-07 tablet (5 Seybol d (NORVASC) 5 00:00: mg total) - MG oral 00 by mouth Externa Tablet daily l Lisinopril 3-0 Yes [id number] 10mg Take 1 K elsey 10 MG oral 4-07 tablet (10 Sey bold Tablet 00:00: mg total) - 00 by mouth Externa daily l Topiramate 2022-0 Yes [id number] 50mg Take 1 K elsey 50 MG oral 4-07 tablet (50 Sey bold Tablet 00:00: mg total) - 00 by mouth 2 Externa times l daily HYDROcodone 2022-0 Yes [id number] 1{tbl} Q.5D Take 1 Franny -Acetaminop 4-07 tablet by Sey bold hen ([employer]) 00:00: mouth 2 - 5-325 MG 00 times Externa oral Tablet daily as l needed for pain Amlodipine 2022-0 2022- No [id number] 5mg Take 1 Franny Besylate 4-08 19-03 tablet (5 Seybo ld (NORVASC) 5 00:00: 00:00 mg total) - MG oral 00 :00 by mouth Externa Tablet daily l Topiramate 3-0 2022- No [id number] 50mg Take 1 Franny 50 MG oral 4-08 19-03 tablet (50 Se ybold Tablet 00:00: 00:00 mg total) - 00 :00 by mouth 2 Externa times l daily HYDROcodone 2022-0 3- No [id number] 1{tbl} Q.5D Take 1 Franny -Acetaminop 4-07 -03 tablet by Se ybold hen ([employer]) 00:00: 00:00 mouth 2 - 5-325 MG 00 :00 times Externa oral Tablet daily as l needed for pain HYDROcodone 2022-0 2022- No Kelse y -Acetaminop 3-27 04-07 Seybold hen ([employer]) 00:00: 00:00 - 5-325 MG 00 :00 Externa oral Tablet l lisinopriL 2022-0 Yes 10mg Take 1 Unive rs 10 mg 3-26 tablet by ity of tablet 16:28: mouth [place] 29 daily. Medical Branch budesonide- 2022-0 Yes 2{puff} Inhale 2 Univers formoteroL 3-26 Puffs as ity o f 160-4.5 16:28: needed. [place] mcg/actuati 29 Medical on inhaler Branch lisinopriL 2022-0 Yes 10mg Take 1 Unive rs 10 mg 3-26 tablet by ity of tablet 16:28: mouth [place] 29 daily. Medical Branch budesonide- 2022-0 Yes 2{puff} Inhale 2 Univers formoteroL 3-26 Puffs as ity o f 160-4.5 16:28: needed. [place] mcg/actuati 29 Medical on inhaler Branch lisinopriL 0 Yes 10mg Take 1 Unive rs 10 mg 3-26 tablet by ity of tablet 16:28: mouth [place] 29 daily. Medical Branch budesonide- 2022-0 Yes 2{puff} Inhale 2 Univers formoteroL 3-26 Puffs as ity o f 160-4.5 16:28: needed. [place] mcg/actuati 29 Medical on inhaler Branch lisinopriL 0 Yes 10mg Take 1 Unive rs 10 mg 3-26 tablet by ity of tablet 16:28: mouth [place] 29 daily. Medical Branch budesonide- 2022-0 Yes 2{puff} Inhale 2 Univers formoteroL 3-26 Puffs as ity o f 160-4.5 16:28: needed. [place] mcg/actuati 29 Medical on inhaler Branch lisinopriL 0 Yes 10mg Take 1 Unive rs 10 mg 3-26 tablet by ity of tablet 16:28: mouth [place] 29 daily. Medical Branch budesonide- 2022-0 Yes 2{puff} Inhale 2 Univers formoteroL 3-26 Puffs as ity o f 160-4.5 16:28: needed. [place] mcg/actuati 29 Medical on inhaler Branch lisinopriL 2022-0 Yes 10mg Take 1 Unive rs 10 mg 3-26 tablet by ity of tablet 16:28: mouth [place] 29 daily. Medical Branch budesonide- 2022-0 Yes 2{puff} Inhale 2 Univers formoteroL 3-26 [...] 40 mg 00 First dose Medical on [facility] 05/07/22 at 2100, Until Discontinu ed, Routine gabapentin Yes 100mg 100 mg, Uni vers (NEURONTIN) 3-26 Oral, TID, it y of capsule 100 01:00: First dose [place] mg 00 on [facility] 05/07/22 at Branch 2000, Until Discontinu ed, Routine HYDROcodone 0 Yes [id number] 1{tbl} Take 1 Un harriet -acetaminop 3-26 tablet by ity of hen (NORCO) 00:00: mouth [place] 5-325 mg 00 every 6 Medical tablet (six) Branch hours as needed for Pain (scale 7-10). Indication s: acute pain docusate Yes [id number] 100mg Take 1 Un harriet 100 mg [...] (scale 7-10). Indication s: acute pain docusate 2022-0 Yes [id number] 100mg Take 1 Un harriet 100 mg [...] (scale 7-10). Indication s: acute pain docusate 2022-0 Yes [id number] 100mg Take 1 Un harriet 100 mg [...] (scale 7-10). Indication s: acute pain docusate 2022-0 Yes [id number] 100mg Take 1 Un harriet 100 mg [...] (scale 7-10). Indication s: acute pain docusate 2022-0 Yes [id number] 100mg Take 1 Un harriet 100 mg [...] (scale 7-10). Indication s: acute pain docusate 2022-0 Yes [id number] 100mg Take 1 Un harriet 100 mg [...] (scale 7-10). Indication s: acute pain docusate 2022-0 Yes [id number] 100mg Take 1 Un harriet 100 mg 3-26 capsule by ity of capsule 00:00: mouth [place] 00 daily as Medical needed for Branch Constipati on. 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 Restricted medication : JORDAN GRIMALDO ibuprofen 2022-0 Yes 400mg 400 mg, Univ ers (IBU) 3-25 Oral, ity of tablet 400 21:51: Q6HPRN, [place] mg 53 Starting Medical on Sat Branch 05/07/22 at 1651, Until Discontinu ed, Routine, Pain (scale 4-6) polyethylen 2022-0 Yes 17g 17 g, Unive rs e glycol 3-25 Oral, BID, ity o f 3350 powder 16:00: First dose [place] 17 g 00 on Sat Medical 05/07/22 at Branch 1100, Until Discontinu ed, Routine polyethylen 2022-0 Yes 17g 17 g, Unive rs e glycol 3-25 Oral, BID, ity o f 3350 powder 16:00: First dose [place] 17 g 00 on Sat Medical 05/07/22 at Branch 1100, Until Discontinu ed, Routine KCL 20 2022- No 40meq 40 mEq, Univer s mEq/15 mL 3-25 03-25 Oral, ity of solution 40 11:30: 11:20 ONCE, 1 [place] mEq 00 :00 dose, On Medical Sat Branch 05/07/22 at 0630, Routine lisinopriL 0 Yes 10mg Take 1 Unive rs 10 mg 3-25 tablet by ity of tablet 10:11: mouth [place] 39 daily. Medical Branch budesonide- 0 Yes 2{puff} Inhale 2 Univers formoteroL 3-25 Puffs as ity o f 160-4.5 10:11: needed. [place] mcg/actuati 39 Medical on inhaler Branch amLODIPine 0 Yes [id number] 5mg Take 1 U nivers 5 mg tablet 3-25 tablet by ity of 00:00: mouth [place] 00 daily. Medical Branch docusate Yes [id number] 100mg Take 1 Un harriet 100 mg 3-25 capsule by ity of capsule 00:00: mouth once [place] 00 daily as Medical needed for Branch Constipati on. topiramate Yes [id number] 50mg Take 1 U nivers 50 mg 3-25 tablet by ity of tablet 00:00: mouth 2 [place] 00 (two) Medical times Branch daily. HYDROcodone Yes [id number] 1{tbl} Take 1 Un harriet -acetaminop 3-25 tablet by ity of hen (NORCO) 00:00: mouth [place] 5-325 mg 00 every 6 Medical tablet (six) Branch hours as needed for Pain (scale 7-10). Indication s: acute pain ondansetron 0 Yes [id number] 4mg Take 1 Univers (ZOFRAN) 4 3-25 tablet by ity of mg tablet 00:00: mouth [place] 00 every 8 Medical (eight) Branch hours as needed for Nausea and Vomiting (N/V). amLODIPine 2022-0 Yes [id number] 5mg Take 1 U nivers 5 mg tablet 3-25 tablet by ity of 00:00: mouth [place] 00 daily. Medical Branch topiramate 2023-0 Yes [id number] 50mg Take 1 U nivers 50 mg 3-25 tablet by ity of tablet 00:00: mouth 2 [place] 00 (two) Medical times Branch daily. ondansetron 2023-0 Yes [id number] 4mg Take 1 Univers (ZOFRAN) 4 3-25 tablet by ity of mg tablet 00:00: mouth [place] 00 every 8 Medical (eight) Branch hours as needed for Nausea and Vomiting (N/V). amLODIPine 2023-0 Yes [id number] 5mg Take 1 U nivers 5 mg tablet 3-25 tablet by ity of 00:00: mouth [place] 00 daily. Medical Branch topiramate 2023-0 Yes [id number] 50mg Take 1 U nivers 50 mg 3-25 tablet by ity of tablet 00:00: mouth 2 [place] 00 (two) Medical times Branch daily. ondansetron 2023-0 Yes [id number] 4mg Take 1 Univers (ZOFRAN) 4 3-25 tablet by ity of mg tablet 00:00: mouth [place] 00 every 8 Medical (eight) Branch hours as needed for Nausea and Vomiting (N/V). amLODIPine 2023-0 Yes [id number] 5mg Take 1 U nivers 5 mg tablet 3-25 tablet by ity of 00:00: mouth [place] 00 daily. Medical Branch topiramate 2023-0 Yes [id number] 50mg Take 1 U nivers 50 mg 3-25 tablet by ity of tablet 00:00: mouth 2 [place] 00 (two) Medical times Branch daily. ondansetron 2023-0 Yes [id number] 4mg Take 1 Univers (ZOFRAN) 4 3-25 tablet by ity of mg tablet 00:00: mouth [place] 00 every 8 Medical (eight) Branch hours as needed for Nausea and Vomiting (N/V). amLODIPine 2023-0 Yes [id number] 5mg Take 1 U nivers 5 mg tablet 3-25 tablet by ity of 00:00: mouth [place] 00 daily. Medical Branch topiramate 2023-0 Yes [id number] 50mg Take 1 U nivers 50 mg 3-25 tablet by ity of tablet 00:00: mouth 2 [place] 00 (two) Medical times Branch daily. ondansetron 2023-0 Yes [id number] 4mg Take 1 Univers (ZOFRAN) 4 3-25 tablet by ity of mg tablet 00:00: mouth [place] 00 every 8 Medical (eight) Branch hours as needed for Nausea and Vomiting (N/V). amLODIPine 2023-0 Yes [id number] 5mg Take 1 U nivers 5 mg tablet 3-25 tablet by ity of 00:00: mouth [place] 00 daily. Medical Branch topiramate 2023-0 Yes [id number] 50mg Take 1 U nivers 50 mg 3-25 tablet by ity of tablet 00:00: mouth 2 [place] 00 (two) Medical times Branch daily. ondansetron 2023-0 Yes [id number] 4mg Take 1 Univers (ZOFRAN) 4 3-25 tablet by ity of mg tablet 00:00: mouth [place] 00 every 8 Medical (eight) Branch hours as needed for Nausea and Vomiting (N/V). amLODIPine 2023-0 Yes [id number] 5mg Take 1 U nivers 5 mg tablet 3-25 tablet by ity of 00:00: mouth [place] 00 daily. Medical Branch topiramate 2023-0 Yes [id number] 50mg Take 1 U nivers 50 mg 3-25 tablet by ity of tablet 00:00: mouth 2 [place] 00 (two) Medical times Branch daily. ondansetron 2023-0 Yes [id number] 4mg Take 1 Univers (ZOFRAN) 4 3-25 tablet by ity of mg tablet 00:00: mouth [place] 00 every 8 Medical (eight) Branch hours as needed for Nausea and Vomiting (N/V). amLODIPine 2023-0 Yes [id number] 5mg Take 1 U nivers 5 mg tablet 3-25 tablet by ity of 00:00: mouth [place] 00 daily. Medical Branch topiramate 2023-0 Yes [id number] 50mg Take 1 U nivers 50 mg 3-25 tablet by ity of tablet 00:00: mouth 2 [place] 00 (two) Medical times Branch daily. ondansetron 2023-0 Yes [id number] 4mg Take 1 Univers (ZOFRAN) 4 3-25 tablet by ity of mg tablet 00:00: mouth [place] 00 every 8 Medical (eight) Branch hours as needed for Nausea and Vomiting (N/V). amLODIPine 2023-0 Yes [id number] 5mg Take 1 U nivers 5 mg tablet 3-25 tablet by ity of 00:00: mouth [place] 00 daily. Medical Branch docusate 2022-0 Yes [id number] 100mg Take 1 Un harriet 100 mg 3-25 capsule by ity of capsule 00:00: mouth once [place] 00 daily as Medical needed for Branch Constipati on. topiramate 2022-0 Yes [id number] 50mg Take 1 U nivers 50 mg [...] Indication s: acute pain ondansetron 2022-0 Yes [id number] 4mg Take 1 Univers (ZOFRAN) 4 3-25 tablet by ity of mg tablet 00:00: mouth [place] 00 every 8 Medical (eight) Branch hours as needed for Nausea and Vomiting (N/V). amLODIPine 2022-0 Yes [id number] 5mg Take 1 U nivers 5 mg tablet 3-25 tablet by ity of 00:00: mouth [place] 00 daily. Medical Branch docusate 2022-0 Yes [id number] 100mg Take 1 Un harriet 100 mg 3-25 capsule by ity of capsule 00:00: mouth once [place] 00 daily as Medical needed for Branch Constipati on. topiramate 2022-0 Yes [id number] 50mg Take 1 U nivers 50 mg [...] Indication s: acute pain ondansetron 2022-0 Yes [id number] 4mg Take 1 Univers (ZOFRAN) 4 3-25 tablet by ity of mg tablet 00:00: mouth [place] 00 every 8 Medical (eight) Branch hours as needed for Nausea and Vomiting (N/V). Docusate 2023-0 Yes [id number] TAKE 1 Ke lsey Sodium 100 3-25 CAPSULE BY Sey bold MG oral 00:00: MOUTH ONCE - Capsule 00 DAILY Externa NEEDED FOR l CONSTIPATI ON. Docusate Yes [id number] TAKE 1 Ke l[place] Sodium 100 3-25 CAPSULE BY Sey bold MG oral 00:00: MOUTH ONCE - Capsule 00 DAILY Externa NEEDED FOR l CONSTIPATI ON. Ondansetron Yes [id number] TAKE 1 Franny HCl 4 MG 3-25 TABLET BY Seybol d oral Tablet 00:00: MOUTH - 00 EVERY 8 Externa HOURS l NEEDED FOR NAUSEA AND VOMITING . Ondansetron 2022- No [id number] TAKE 1 Franny HCl 4 MG 3-25 07-03 TABLET BY Seybo ld oral Tablet 00:00: 00:00 MOUTH - 00 :00 EVERY 8 Externa HOURS l NEEDED FOR NAUSEA AND VOMITING . Amlodipine 2022- No 5mg Take 1 Gloria ey Besylate 3-25 04-07 tablet (5 Seybo ld (NORVASC) 5 00:00: 00:00 mg total) - MG oral 00 :00 by mouth Externa Tablet daily l Topiramate 2022- No 50mg Take 1 Gloria ey 50 MG oral 3-25 04-07 tablet (50 Se ybold Tablet 00:00: 00:00 mg total) - 00 :00 by mouth 2 Externa times l daily topiramate 2022- No [id number] 50mg Take 1 Univers 50 mg 3-25 03-25 tablet by ity of tablet 00:00: 00:00 mouth 2 [place] 00 :00 (two) Medical times Ray daily for 90 days. amLODIPine 2022- No [id number] 5mg Take 1 Univers 5 mg tablet 3-25 03-25 tablet by it y of 00:00: 00:00 mouth [place] 00 :00 daily for Medical 90 days. Branch docusate 2022- No [id number] 100mg Take 1 U nivers 100 mg 3-25 03-25 capsule by ity of capsule 00:00: 00:00 mouth once [place] as 00 :00 daily as Medical needed for Branch Constipati on for up to 14 days. HYDROcodone 2022- No [id number] 1{tbl} Take 1 U nivers -acetaminop 3-25 03-25 tablet by it y of hen ([employer]) 00:00: 00:00 mouth [place] 5-325 mg 00 :00 every 6 Medical tablet (six) Branch hours as needed for Pain (scale 7-10) for up to 7 days. Indication s: acute pain ondansetron 2022-2022- No [id number] 4mg Take 1 Univers (ZOFRAN) 4 3-25 03-25 tablet by ity of mg tablet 00:00: 00:00 mouth [place] 00 :00 every 8 Medical (eight) Branch hours as needed for Nausea and Vomiting (N/V) for up to 7 days. topiramate 2022-2022- No [id number] 50mg Take 1 [facility] 50 mg 3-25 03-25 tablet by ity of tablet 00:00: 00:00 mouth 2 [place] 00 :00 (two) Medical times Branch daily for 90 days. amLODIPine 2022-2022- No [id number] 5mg Take 1 [facility] 5 mg tablet 3-25 03-25 tablet by it y of 00:00: 00:00 mouth [place] 00 :00 daily for Medical 90 days. Branch docusate 2022-2022- No [id number] 100mg Take 1 U nivers 100 mg [...] Indication s: acute pain ondansetron 2022-2022- No [id number] 4mg Take 1 Univers (ZOFRAN) 4 3-25 03-25 tablet by ity of mg tablet 00:00: 00:00 mouth [place] 00 :00 every 8 Medical (eight) Branch hours as needed for Nausea and Vomiting (N/V) for up to 7 days. ceFAZolin 2022- No 1000mg 1,000 mg, Univers [...] Yes 10mg 10 mg, Univ ers (APRESOLINE 05-06 Slow IV ity o f ) injection 15:30: Push, [place] 10 mg 22 Q4HPRN, Medical Starting Branch on Mon05/06/22 at 1030, Until Discontinu ed, Routine, SBP >140 hydralAZINE 2022-0 Yes 10mg 10 mg, Univ ers (APRESOLINE 24 Slow IV ity o f ) injection 15:30: Push, [place] 10 mg 22 Q4HPRN, Medical Starting Branch on Mon05/06/22 at 1030, Until Discontinu ed, Routine, SBP >140 vancomycin 2022-0 2022- No PRN, Univer s (VANCOCIN) 05-06 Starting ity of injection 14:30: 16:27 on Mon [place] 00 :46 05/06/22 at Medical 0930, Branch Until Mon05/06/22 at 1127, LOGAN, Intra-op lidocaine-e 3-0 2023- No PRN, Unive rs pinephrine 05-0624 Starting ity of (XYLOCAINE 13:30: 16:27 on Fri [place] WITH 00 :46 05/06/22 at [facility] EPINEPHRINE 0830, Branch ) 0.5 Until Fri %-1:200,000 05/06/22 at injection 1127, Routine, Intra-op proMETHazin 2022-0 Yes 12.5mg 12.5 mg, Univers e 05-05 IV ity of (PHENERGAN) 21:01: Piggyback, [place] 12.5 mg in 05 at 200 Medical NS 50 mL IV mL/hr Ray piggyback Administer (CNR) over 15 Minutes, Q4HPRN, Starting on Astrid 05/05/22 at 1601, Until Discontinu ed, Routine, N/V alternatin g with Ondansetro n proMETHazin 2022-0 Yes 12.5mg 12.5 mg, Univers e 05-05 IV ity of (PHENERGAN) 21:01: Piggyback, [place] 12.5 mg in 05 at 200 Medical NS 50 mL IV mL/hr Ray piggyback Administer (CNR) over 15 Minutes, Q4HPRN, Starting on Astrid 05/05/22 at 1601, Until Discontinu ed, Routine, N/V alternatin g with Ondansetro n acetaminoph 2022-0 Yes 1000mg 1,000 mg, Univers en 3-21 Oral, Q8H, ity of (TYLENOL) 03:00: First dose [place] tablet 00 on Mon Medical 1,000 mg 05/02/22 at Bran h 2200, Until Discontinu ed, Routine acetaminoph 3-0 Yes 1000mg 1,000 mg, Univers en 3-21 Oral, Q8H, ity of (TYLENOL) 03:00: First dose [place] tablet 00 on Mon Medical 1,000 mg 05/02/22 at Bran h 2200, Until Discontinu ed, Routine hydralAZINE 2022-0 2023- No 10mg 10 mg, Uni vers (APRESOLINE 05-03 Slow IV ity of ) injection 02:09: 15:30 Push, [place] 10 mg 37 :51 Q4HPRN, Medical Starting Branch on Mon05/02/22 at 2109, Until Mon05/06/22 at 1030, Routine, SBP >160 ondansetron 2023-0 Yes 4mg 4 mg, Slow Univers (ZOFRAN 3-20 IV Push, ity of (PF)) 17:04: Q6HPRN, [place] injection 4 22 Nausea and Me dical mg Vomiting Branch (N/V), Starting on Mon05/02/22 at 1204
Do ses of ondansetro n 16 mg and above need to be administer ed via IV piggyback. For Dose >=24mg ECG monitoring is advisable.
ondansetron 2023-0 Yes 4mg 4 mg, Slow Univers (ZOFRAN 3-20 IV Push, ity of (PF)) 17:04: Q6HPRN, [place] injection 4 22 Nausea and Me dical mg Vomiting Branch (N/V), Starting on Mon05/02/22 at 1204
Do ses of ondansetro n 16 mg and above need to be administer ed via IV piggyback. For Dose >=24mg ECG monitoring is advisable.
morpHINE (2 3-0 Yes 2mg 2 mg, Slow Univers mg/mL) 3-20 IV Push, ity of injection 2 14:10: Q3HPRN, [place] as mg 15 Starting Medical on Mon Branch 05/02/22 at 0910, Until Discontinu ed, Routine, Pain (scale 7-10) morpHINE (2 3-0 Yes 2mg 2 mg, Slow Univers mg/mL) [...] No 40mg 40 mg, Univ ers (LOVENOX) 05-02 0324 Subcutaneo ity of injection 14:00: 01:14 us, Q24H, [place] 40 mg 00 :53 First dose Medical on Mon05/02/22 at 0900, Until Discontinu ed, Routine topiramate 2022-0 Yes 50mg 50 mg, Unive rs (TOPAMAX) 3-20 Oral, BID, ity of tablet 50 01:00: First dose [place] mg 00 (after Medical last Branch modificati on) on [place] 05/01/22 at 2000, Until Discontinu ed, Routine
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 approving Restricted medication : MYLENE ALLAN topiramate 2022-0 Yes 50mg 50 mg, Unive rs (TOPAMAX) 3-20 Oral, BID, ity of tablet 50 01:00: First dose [place] mg 00 (after Medical last Branch modificati on) on [place] 05/01/22 at 2000, Until Discontinu ed, Routine
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 approving Restricted medication : AGUSTINA ALLANJAL NaCl 0.9% 2022-0 Yes 1000mL at 42 Unive rs (NS) IV 3-19 mL/hr, IV ity of infusion 15:15: Infusion, [place] 1,000 mL 00 CONTINUOUS Medic al , Starting Branch on [place] 05/01/22 at 1015, Until Discontinu ed, Routine NaCl 0.9% 2022- No 1000mL at 42 Univ ers (NS) IV 05-01 03-25 mL/hr, IV ity of infusion 15:15: 21:08 Infusion, [place] as 1,000 mL 00 :17 CONTINUOUS Medic al , Starting Branch on [place] 05/01/22 at 1015, Until 05/07/22 at 1608, Routine ceFAZolin 2022- No 1000mg 1,000 mg, Univers (ANCEF) 05-01 0324 Intravenou ity o f 1,000 mg in [...] therapy: within 24 hours of surgery labetaloL 2022- No 20mg 20 mg, Unive rs [...] 05/02/22 at 2109, Routine, SBP >160 Sliding Yes Subcutaneo Univ ers Scale 3-18 us, TID ity of Insulin - 02:00: MEALS+HS, [place] as Lispro 00 First dose Medical (HumaLOG) + on Mon Branch Fsbg 04/29/22 at Testing 2100, Until Discontinu ed, Routine Sliding Yes Subcutaneo Univ ers Scale 3-18 us, TID ity of Insulin - 02:00: MEALS+HS, [place] as Lispro 00 First dose Medical (HumaLOG) + on Mon Branch Fsbg 04/29/22 at Testing 2100, Until Discontinu ed, Routine glucagon Yes 1mg 1 mg, Univers (GLUCAGEN 04-29 Intramuscu ity of DIAGNOSTIC 22:05: lar, PRN, [place] KIT) 17 Starting Medical injection 1 on Mon Branch mg 04/29/22 at 1705, Until Discontinu ed, LOGAN, Blood Glucose < or = 70 mg/dL and patient is NPO, unable to swallow or has mental changes. dextrose 50 2023-0 Yes 25mL 25 mL, Univ ers % [...] Starting Medical injection 1 on Mon Branch mg 04/29/22 at 1705, Until Discontinu [...] swallow or has mental status changes. enoxaparin No 40mg 40 mg, Univ ers (LOVENOX) 04-2918 Subcutaneo ity of injection 22:00: 18:25 us, DAILY, [place] 40 mg 00 :09 First dose Medical on Mon Branch 04/29/22 at 1700, Until Discontinu ed, Routine acetaZOLAMI 2022- No 500mg 500 mg, U nivers DE (DIAMOX) 04-29 Oral, TID, i ty of tablet 500 19:15: 13:43 First dose [place] mg 00 :18 on Mon Medical 04/29/22 at Branch 1415, Until Discontinu ed, Routine amLODIPine Yes 5mg 5 mg, Univer s (NORVASC) 04-29 Oral, ity of tablet 5 mg 14:00: DAILY, [place] 00 First dose Medical on Mon Branch 04/29/22 at 0900, Until Discontinu ed, Routine lisinopriL 2023-0 Yes 10mg 10 mg, Unive rs (PRINIVIL,Z 3-17 Oral, ity of ESTRIL) 14:00: DAILY, [place] tablet 10 00 First dose Medi charles mg on Mon Branch 04/29/22 at 0900, Until Discontinu ed, Routine amLODIPine Yes 5mg 5 mg, Univer s (NORVASC) 17 Oral, ity of tablet 5 mg 14:00: DAILY, [place] 00 First dose Medical on Mon Branch 04/29/22 at 0900, Until Discontinu ed, Routine lisinopriL Yes 10mg 10 mg, Unive rs (PRINIVIL,Z 3-17 Oral, ity of ESTRIL) 14:00: DAILY, [place] tablet 10 00 First dose Medi charles mg on Mon Branch 04/29/22 at 0900, Until Discontinu ed, Routine topiramate 2022- No 25mg 25 mg, Univ ers (TOPAMAX) 04-29 Oral, BID, ity of tablet 25 13:00: 13:43 First dose [place] mg 00 :18 on Mon Medical 04/29/22 at Branch 0800, Until Discontinu ed, Routine
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 approving Restricted medication : SHANNAN BRIAN magnesium No 2g 2 g, IV Univ ers sulfate in 04-29 Piggyback, it y of water 2 08:15: 09:02 Administer [place] gram/50 mL 00 :00 over 60 Medica l (4 %) Minutes, Branch infusion 2 ONCE, 1 g dose, On Mon04/29/22 at 0315, Routine furosemide No 40mg 40 mg, Univ ers (LASIX) 04-29 Slow IV ity of injection 07:00: 08:00 Push, [place] 40 mg 00 :00 ONCE, 1 Medical dose, On Branch Mon04/29/22 at 0200, Routine acetaZOLAMI No 500mg 500 mg, U pasqaule DE (DIAMOX) 04-29 Slow IV ity of injection 07:00: 19:00 Push, [place] 500 mg 00 :02 Q8HA1, Medical First dose Branch on Mon04/29/22 at 0200, Until Discontinu ed, Routine proCHLORper No 10mg 10 mg, IV Univers azine 04-29 Piggyback, ity of (COMPAZINE) 06:30: 21:01 at 100 [place] 10 mg in 00 :31 mL/hr Medical NaCl 0.9% Administer Bran ch (NS) over 30 piggyback Minutes, Q8HPRN, Starting on Mon04/29/22 at 0130, Until Mon05/05/22 at 1601, Routine, Nausea and Vomiting (N/V) ketorolac 2022- No 30mg 30 mg, Unive rs (TORADOL) 04-29 03-20 Slow IV ity of injection 06:27: 06:26 [...] First dose [place] mg 00 on [facility] Medical 04/28/22 at Branch 2000, Until Discontinu ed, Routine lisinopriL 2023-0 Yes 10mg Take 1 Unive rs 10 mg 3-16 tablet by ity of tablet 22:29: mouth [place] [address] [facility] Lisinopril 2023-0 Yes [id number] 10mg Take 1 K elsey 10 MG oral 3-08 tablet (10 Sey bold Tablet 00:00: mg total) - 00 by mouth Externa daily l Budesonide- 2023-0 Yes [id number] 2{puff} Inhale 2 Franny Formoterol 3-08 puffs into Sey bold Fumarate 00:00: the lungs - 160-4.5 00 2 times Externa MCG/ACT daily l inhalation Aerosol Albuterol 2023-0 Yes [id number] 2{puff} Q.25D Inhale 2 Franny HFA 108 (90 3-08 puffs into Se [employer]) 00:00: the lungs - MCG/ACT IN 00 every 6 S[employer] Tender a AERS hours as l needed for wheezing or shortness of breath Lisinopril 2023-0 Yes [id number] 10mg Take 1 K elsey 10 MG oral 3-08 tablet (10 Sey bold Tablet 00:00: mg total) - 00 by mouth Externa daily l Budesonide- 2023-0 Yes [id number] 2{puff} Inhale 2 Franny Formoterol 3-08 puffs into Sey bold Fumarate 00:00: the lungs - 160-4.5 00 2 times Externa MCG/ACT daily l inhalation Aerosol Albuterol 2023-0 Yes [id number] 2{puff} Q.25D Inhale 2 Franny HFA 108 (90 3-08 puffs into Se [employer]) 00:00: the lungs - MCG/ACT IN 00 every 6 Sieve [employer] Tender a AERS hours as l needed for wheezing or shortness of breath Budesonide- 2023-0 Yes [id number] 2{puff} Inhale 2 Franny Formoterol 3-08 puffs into Sey bold Fumarate 00:00: the lungs - 160-4.5 00 2 times Externa MCG/ACT daily l inhalation Aerosol Albuterol 2023-0 Yes [id number] 2{puff} Q.25D Inhale 2 Franny HFA 108 (90 3-08 puffs into Se [employer]) 00:00: the lungs - MCG/ACT IN 00 every 6 S[employer] Tender a AERS hours as l needed for wheezing or shortness of breath Budesonide- 2022- No [id number] 2{puff} Inhale 2 Franny Formoterol 04-20-03 puffs into Se ybold Fumarate 00:00: 00:00 the lungs - 160-4.5 00 :00 2 times Externa MCG/ACT daily l inhalation Aerosol Albuterol 2022- No [id number] 2{puff} Q.25D Inhale 2 Franny HFA 108 (90 04-20- puffs into S [employer]) 00:00: 00:00 the lungs - MCG/ACT IN 00 :00 every 6 S[employer] a AERS hours as l needed for wheezing or shortness of breath Lisinopril 2022- No [id number] 10mg Take 1 Franny 10 MG oral 04-20- tablet (10 Se ybold Tablet 00:00: 00:00 mg total) - 00 :00 by mouth Externa daily l TAKE 3 No TABLETS BY 1-03 MOUTH ONCE 00:00: DAILY FOR 5 00 DAYS lisinopriL 2021-02 Yes 10mg Take 10 mg U nivers 10 mg 2-05 by mouth ity of tablet 16:55: daily. [address] budesonide- 2021-02 Yes 2{puff} Inhale 2 Univers formoteroL 2-05 Puffs as ity o f (SYMBICORT) 16:55: needed. [place] as 160-4.5 57 Medical mcg/actuati Branch on inhaler lisinopriL 2021-02 Yes 10mg Take 10 mg U nivers 10 mg 2-05 by mouth ity of tablet 16:55: daily. [address] budesonide- 2021-02 Yes 2{puff} Inhale 2 Univers formoteroL 2-05 Puffs as ity o f (SYMBICORT) 16:55: needed. [place] as 160-4.5 57 Medical mcg/actuati Branch on inhaler budesonide- 2021-02 Yes 2{puff} Inhale 2 Univers formoteroL 2-05 Puffs as ity o f (SYMBICORT) 16:55: needed. [place] 160-4.5 57 Medical [facility] [place] Branch on inhaler acetaZOLAMI 2021-02 Yes [id number] 500mg Take 2 Univers DE 250 mg 2-05 tablets by ity of tablet 00:00: mouth 3 () Medical times Branch daily. melatonin 2021-02 Yes [id number] 3mg Take 1 Univers mg tablet 2-05 tablet by ity o f 00:00: mouth at [place] bedtime. Medical Branch acetaZOLAMI 2021-02 Yes [id number] 500mg Take 2 Univers DE 250 mg 2-05 tablets by ity of tablet 00:00: mouth 3 () Medical times Branch daily. melatonin 2021-02 Yes [id number] 3mg Take 1 Univers mg tablet 2-05 tablet by ity o f 00:00: mouth at [place] bedtime. Medical Branch acetaZOLAMI 2021-02 Yes [id number] 500mg Take 2 Univers DE 250 mg 2-05 tablets by ity of tablet 00:00: mouth 3 () Medical times Branch daily. melatonin 2021-02 Yes [id number] 3mg Take 1 Univers mg tablet 2-05 tablet by ity o f 00:00: mouth at [place] bedtime. Medical Branch acetaZOLAMI 2021-02 Yes [id number] 500mg Take 2 Univers DE 250 mg 2-05 tablets by ity of tablet 00:00: mouth 3 () Medical times Branch daily. melatonin 2021-02 Yes [id number] 3mg Take 1 Univers mg tablet 2-05 tablet by ity o f 00:00: mouth at [place] bedtime. Medical Branch acetaZOLAMI 2021-02 Yes [id number] 500mg Take 2 Univers DE 250 mg 2-05 tablets by ity of tablet 00:00: mouth 3 () Medical times Branch daily. melatonin 2021-02 Yes [id number] 3mg Take 1 Univers mg tablet 2-05 tablet by ity o f 00:00: mouth at [place] bedtime. Medical Branch acetaZOLAMI 2021-02 Yes [id number] 500mg Take 2 Univers DE 250 mg 2-05 tablets by ity of tablet 00:00: mouth 3 () Medical times Branch daily. melatonin 2021-02 Yes [id number] 3mg Take 1 Univers mg tablet 2-05 tablet by ity o f 00:00: mouth at bedtime. Medical Branch acetaZOLAMI 2021-02 Yes [id number] 500mg Take 2 Univers DE 250 mg 2-05 tablets by ity of tablet 00:00: mouth 3 (three) Medical times Branch daily. melatonin 3 2021-02 Yes [id number] 3mg Take 1 Univers mg tablet 2-05 tablet by ity o f 00:00: mouth at bedtime. Medical Branch acetaZOLAMI 2021-02 Yes [id number] 500mg Take 2 Univers DE 250 mg 2-05 tablets by ity of tablet 00:00: mouth 3 (three) Medical times Branch daily. melatonin 3 2021-02 Yes [id number] 3mg Take 1 Univers mg tablet 2-05 tablet by ity o f 00:00: mouth at bedtime. Medical Branch topiramate 2021-02 Yes [id number] 25mg Take 1 U nivers 25 mg 2-05 tablet by ity of tablet 00:00: mouth 2 (two) Medical times Branch daily. acetaZOLAMI 2021-02 Yes [id number] 500mg Take 2 Univers DE 250 mg 2-05 tablets by ity of tablet 00:00: mouth 3 (three) Medical times Branch daily. melatonin 2021-02 Yes [id number] 3mg Take 1 Univers mg tablet 2-05 tablet by ity o f 00:00: mouth at bedtime. Medical Branch topiramate 2021-02 Yes [id number] 25mg Take 1 U nivers 25 mg 2-05 tablet by ity of tablet 00:00: mouth 2 (two) Medical times Branch daily. acetaZOLAMI 2021-02 Yes [id number] 500mg Take 2 Univers DE 250 mg 2-05 tablets by ity of tablet 00:00: mouth 3 (three) Medical times Branch daily. melatonin 3 2021-02 Yes [id number] 3mg Take 1 Univers mg tablet 2-05 tablet by ity o f 00:00: mouth at bedtime. Medical Branch topiramate 2021-02 Yes [id number] 25mg Take 1 U nivers 25 mg 2-05 tablet by ity of tablet 00:00: mouth 2 (two) Medical times Branch daily. acetaZOLAMI 2021-02 Yes [id number] 500mg Take 2 Univers DE 250 mg 2-05 tablets by ity of tablet 00:00: mouth 3 [place] (three) Medical times Branch daily. melatonin 3 2021-02 Yes [id number] 3mg Take 1 Univers mg tablet 2-05 tablet by ity o f 00:00: mouth at [place] 00 bedtime. Medical Branch acetaZOLAMI 2021-02 Yes [id number] 500mg Take 2 Univers DE 250 mg 2-05 tablets by ity of tablet 00:00: mouth 3 [place] (three) Medical times Branch daily. melatonin 3 2021-02 Yes [id number] 3mg Take 1 Univers mg tablet 2-05 tablet by ity o f 00:00: mouth at [place] 00 bedtime. Medical Branch acetaZOLAMI 2021-02 Yes [id number] 500mg Take 2 Univers DE 250 mg 2-05 tablets by ity of tablet 00:00: mouth 3 [place] (three) Medical times Branch daily. melatonin 2021-02 Yes [id number] 3mg Take 1 Univers mg tablet 2-05 tablet by ity o f 00:00: mouth at [place] [address] bedtime. Medical Branch topiramate 2021-02- No [id number] 25mg Take 1 Univers 25 mg 2-05 03-25 tablet by ity of tablet 00:00: 00:00 mouth 2 [place] 00 :00 (two) Medical times Branch daily. topiramate 2021-02- No [id number] 25mg Take 1 Univers 25 mg 2-05 03-25 tablet by ity of tablet 00:00: 00:00 mouth 2 [place] 00 :00 (two) Medical times Branch daily. acetaZOLAMI 2021-02- No 2{tbl} Take 2 K elsey DE (DIAMOX) 2-05 03-08 tablets by S eybold 250 MG oral 00:00: 00:00 mouth 3 - Tablet 00 :00 times Externa daily l [facility] 2021-02- No 1{tbl} Take 1 Rfanny Melatonin 3 2-05 03-08 tablet by Se ybold MG oral 00:00: 00:00 mouth at - Tablet 00 :00 bedtime Externa l Topiramate 2021-02- No 25mg Take 25 mg Franny 25 MG oral 2-05 03-08 by mouth 2 Se ybold Tablet 00:00: 00:00 times - 00 :00 daily Externa l melatonin 2021-02 Yes 3mg 3 mg, Univers (MELATIN) 2-04 Oral, QHS, ity of tablet 3 mg 03:00: First dose [place] 00 on [facility] 01/15/22 at Branch 2100, Until Discontinu ed, Routine hydrOXYzine 2021-02- No 25mg 25 mg, Uni vers (ATARAX) 03-19 1204 Oral, ity of tablet 25 00:00: 00:44 ONCE, 1 [place] mg 00 :00 dose, On Medical [facility] 01/15/22 at 1800, Routine NaCl 0.9% 2021-02- No 500mL at 150 Univ ers (NS) IV 03-18 12-03 mL/hr, IV ity of infusion 20:00: 23:00 Infusion, [place]ike as 500 mL 00 :00 ONCE, 1 Medical dose, On Branch [facility] 01/15/22 at 1400, Routine topiramate 2021-02 Yes 25mg 25 mg, Unive rs (TOPAMAX) 2-03 Oral, BID, ity of tablet 25 19:30: First dose [place] mg 00 on [facility] 01/15/22 at Branch 1330, Until Discontinu ed, Routine
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 approving Restricted medication : JONES PHIPPS traMADoL 2021-02 Yes 50mg 50 mg, Univers (ULTRAM) 2 Oral, ity of tablet 50 16:09: Q6HPRN, [place] mg 31 Starting Medical on [facility] 01/15/22 at 1009, Until Discontinu ed, Routine, Pain (scale 7-10) iopamidol 2021-02- No [id number] 80mL 80 mL, Univers (ISOVUE 03-18 Intravenou ity o f 370-500 mL) 03:15: 03:30 s, ONCE, 1 [place] injection 00 :00 dose, On Medica l 80 mL Fri Ray 01/14/22 at 2130, Routine sodium 2021-02 Yes Slow IV Univers bicarbonate 03-17 Push, PRN, it y of 8.4 % (1 18:22: Starting [place] mEq/mL) 21 on Fri Medical injection 01/14/22 at Bran ch 1222, Until Discontinu ed, Routine lidocaine 2021-02 Yes PRN, Univers 1% (PF) 2-02 Starting ity of (XYLOCAINE) 18:21: on Fri [place] injection 43 01/14/22 at Medi charles 1221, Branch Until Discontinu ed, Routine lisinopriL 2021-02 Yes 10mg 10 mg, Unive rs (PRINIVIL,Z 03-16 Oral, ity of ESTRIL) 16:30: DAILY, [place] tablet 10 00 First dose Medi charles mg on [facility] Branch 01/13/22 at 1030, Until Discontinu ed, Routine traMADoL 2021-02 No 50mg 50 mg, Univer s (ULTRAM) 03-16 Oral, ity of tablet 50 11:48: 11:47 Q8HPRN, [place] mg 15 :15 Starting Medical on [facility] Branch 01/13/22 at 0548, Until 01/15/22 at 0547, Routine, Pain (scale 4-6) lisinopriL 2021-02 Yes 10mg Take 10 mg U nivers 10 mg 1-30 by mouth ity of tablet 21:44: daily. [address] budesonide- 2021-02 Yes 2{puff} Inhale 2 Univers formoteroL 1-30 Puffs as ity o f (SYMBICORT) 21:44: needed. Kike as 160-4.[address] [place] [address]/actuati Branch on inhaler acetaZOLAMI 2021-02 Yes 500mg 500 mg, Un harriet DE (DIAMOX) 1-30 Oral, BID, it y of tablet 500 20:30: First dose [place] mg 00 on Mon Medical 01/12/22 Branch at 1430, Until Discontinu ed, Routine docusate 2021-02 Yes 100mg 100 mg, Unive rs (COLACE) 03-13 Oral, ity of capsule 100 15:00: DAILY, [place] mg 00 First dose Medical on [facility] Branch 01/11/22 at 0900, Until Discontinu ed, Routine enoxaparin 2021-02 Yes 40mg 40 mg, Unive rs (LOVENOX) 03-13 Subcutaneo ity of injection 15:00: us, DAILY, [place] 40 mg 00 First dose Medical on [facility] Branch 01/11/22 at 0900, Until Discontinu ed, Routine predniSONE 2022-1 2022- No 10mg 10 mg, [facility] ers (DELTASONE) 03-13 Oral, BID, i ty of tablet 10 15:00: 03:22 6 doses, [place] as mg 00 :00 First dose Medical on e Branch 01/11/22 at 0900, Last dose on Mon01/13/22 at 2000, Routine budesonide- 2021-02- No 2{puff} 2 Puff, Univers formoteroL 03-13 Inhalation it y of (SYMBICORT) 14:00: 13:59 , BID, 5 [place] 160-4.5 00 :00 doses, Medical mcg/actuati First dose Br anch on inhaler on Mon 2 Puff 01/11/22 at 0800, Last dose on Astrid 01/13/22 at 0800, Routine butalbital- 2021-02- No 1{tbl} 1 tablet, [facility] acetaminoph 03-13 Oral, ity of en-caff 13:53: 16:09 Q4HPN, [place] (ESGIC) 37 :42 Starting Medical 50-325-40 on Mon mg tablet 1 01/11/22 tablet at 0753, Until 01/15/22 at 1009, Routine, [place] ipratropium 2021-02- No 3mL 3 mL, [facility] ers -albuteroL 03-1304 Inhalation it y of (DUONEB) 12:00: 11:59 , Q6H, 20 [place] as 0.5 mg-3 00 :00 doses, Medical mg(2.5 mg First dose Bran ch base)/3 mL on e nebulizer 01/11/22 solution 3 at 0600, mL Last dose on 01/16/22 at 0000, Routine ondansetron 2021-02 Yes 4mg 4 mg, Slow Univers (ZOFRAN 03-13 IV Push, ity of (PF)) 09:08: Q6HPOxford, [place] injection 4 23 Starting Medi charles mg on e Branch 01/11/22 at 0308, Until Discontinu ed, Routine, Nausea and Vomiting (N/V) morpHINE (2 2021-02- No 2mg 2 mg, Slow Univers mg/mL) 1-29 11-30 IV Push, ity of injection 2 09:08: 09:07 Q4HPRN, [place] mg 10 :10 Starting Medical on Mon01/11/22 at 0308, Until Mon01/12/22 at 0307, Routine, Pain (scale 7-10) acetaminoph 2021-02 Yes 650mg 650 mg, Un harriet en 03-13 Oral, ity of (TYLENOL) 09:07: Q6HPRN, [place] tablet 650 58 Starting Medic al mg [...] Mon01/10/22 at 2215, STAT iopamidol 2021-02- No [id number] 100mL 100 mL, Univers (ISOVUE 03-13 Intravenou ity o f 370-500 mL) 04:15: 04:15 s, ONCE, 1 [place] injection 00 :00 dose, On Medica l 100 mL Mon01/10/22 at 2215, Routine acetaminoph 2021-02- No 975mg 975 mg, U nivers en 03-13 Oral, ity of (TYLENOL) 02:30: 01:28 ONCE, 1 [place] tablet 975 00 :00 dose, On Medic al mg Mon01/10/22 at 2030, LOGAN metoclopram 2021-02- No 10mg 10 mg, Uni vers young HCl 03-13 Slow IV ity of (REGLAN) 01:30: 01:28 Push, [place] injection 00 :00 ONCE, 1 Medical 10 mg dose, On Branch Mon01/10/22 at 1930, LOGAN hydroCHLORO 2021- No [id number] 25mg Take 1 Univers thiazide 25 8-20 -20 tablet by it y of mg tablet 00:00: 04:59 mouth [place] 00 :00 daily for Medical 30 days. Branch lisinopriL 2021- No [id number] 40mg Take 1 Univers 40 mg 8-20 -20 tablet by ity of tablet 00:00: 04:59 mouth [place] 00 :00 daily for Medical 30 days. Branch loratadine 2021- No [id number] 10mg Take 1 Univers 10 mg 8-20 -20 tablet by ity of tablet 00:00: 04:59 mouth [place] 00 :00 daily for Medical 30 days. Branch montelukast 2021- No [id number] 10mg Take 1 Univers 10 mg 8-20 -20 tablet by ity of tablet 00:00: 04:59 mouth [place] 00 :00 daily for Medical 30 days. Branch predniSONE 2021- No [id number] 40mg Take 2 Univers 20 mg -02 10-26 tablets by ity of tablet 00:00: 04:59 mouth [place] 00 :00 daily for Medical 5 days. Branch sulfur 2021- No [id number] 5mL 5 mL, Univ ers hexafluorid 10-01 Intravenou i ty of e microsphr 16:15: 16:15 s, ONCE, 1 [place] (LUMASON) 00 :00 dose, On Medica l injection 5 Fri Branch mL 10/01/21 at 1115, Routine
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 approving Restricted medication : JADEN MEDINA amLODIPine 2021- No 10mg Take 10 mg Univers 10 mg 10-01- by mouth ity of tablet 14:41: 00:00 daily. [place] 48 :00 Medical Branch loratadine 2021- No 10mg Take 10 mg Univers 10 mg 10-01- by mouth ity of tablet 14:41: 00:00 daily. [place] 48 :00 Medical Branch hydroCHLORO 2021- No 12.5mg Take 12.5 Univers thiazide 10-01- mg by ity of 12.5 mg 14:41: 00:00 mouth [place] tablet 48 :00 daily. Medical Unsure on Branch the dosage she takes metFORMIN 2022-0 2022- No 500mg Take 500 Un harriet 500 mg 8 08-19 mg by ity of tablet 14:41: 00:00 mouth 2 [place] 48 :00 (two) Medical times Ray daily with meals. montelukast 2021-0 Yes 10mg 10 mg, Univ ers (SINGULAIR) 8-19 Oral, ity of tablet 10 14:00: DAILY, [place] mg 00 First dose Medical on Mon Ray 10/01/21 at 0900, Until Discontinu ed, Routine lisinopriL 2021-0 Yes 40mg 40 mg, Unive rs (PRINIVIL,Z 8- Oral, ity of ESTRIL) 14:00: DAILY, [place] tablet 40 00 First dose Medi charles mg (after Branch last modificati on) on Mon10/01/21 at 0900, Until Discontinu ed, Routine predniSONE 2-0 Yes 40mg 40 mg, Unive rs (DELTASONE) 8- Oral, ity of tablet 40 14:00: DAILY, [place] mg 00 First dose Medical on Mon Ray 10/01/21 at 0900, Until Discontinu ed, Routine loratadine 2021-0 Yes 10mg 10 mg, Unive rs (CLARITIN) 8-19 Oral, ity of tablet 10 14:00: DAILY, [place] mg 00 First dose Medical on Mon [place] 10/01/21 at 0900, Until Discontinu ed, Routine hydroCHLORO 2022-0 Yes 25mg 25 mg, Univ ers thiazide 8-19 Oral, ity of (ESIDRIX) 14:00: DAILY, [place] tablet 25 00 First dose Medi charles mg on Mon [place] 10/01/21 at 0900, Until Discontinu ed, Routine enoxaparin 2-0 Yes 40mg 40 mg, Unive rs (LOVENOX) 8- Subcutaneo ity of injection 14:00: [place], DAILY, [place] 40 mg 00 First dose Medical on Mon [place] 10/01/21 at 0900, Until Discontinu ed, Routine metFORMIN 2-0 Yes 500mg 500 mg, Univ ers (GLUCOPHAGE 8-19 Oral, BID ity of ) tablet 13:00: MEALS, [place] 500 mg 00 First dose Medical on Mon [place] 10/01/21 at 0800, Until Discontinu ed, Routine Sliding 2021-0 Yes Subcutaneo Univ ers Scale 10-01 us, TID ity of Insulin - 02:00: MEALS+HS, [place] Lispro 00 First dose Medical (HumaLOG) + on [facility] Fsbg 09/30/21 at Testing 2100, Until Discontinu ed, Routine traMADoL 2021-0 Yes 50mg 50 mg, Univers (ULTRAM) 10-01 Oral, ity of tablet 50 01:32: Q6HPRN, [place] mg 26 Starting Medical on [facility] 09/30/21 at 2031, Until Discontinu ed, Routine, Pain (scale 7-10) acetaminoph Yes 650mg 650 mg, Un harriet en 10-01 Oral, ity of (TYLENOL) 01:32: Q6HPRN, [place] tablet 650 02 Starting Medic al mg on [facility] 09/30/21 at 2031, Until Discontinu ed, Routine, Pain (scale 4-6) glucagon Yes 1mg 1 mg, Univers (GLUCAGEN 10-01 Intramuscu ity of DIAGNOSTIC 01:23: lar, PRN, [place] KIT) 10 Starting Medical injection 1 on [facility] mg 09/30/21 at 2022, Until Discontinu ed, LOGAN, Blood Glucose < or = 70 mg/dL and patient is unable to swallow or has mental changes. dextrose 50 2021-0 Yes 25mL 25 mL, Univ ers % in water 10-01 Slow IV ity of (D50W) 01:23: Push, PRN, [place] injection 10 Starting Medica l 25 mL [...] Yes 3mL 3 mL, Unive rs -albuteroL 8-19 Inhalation ity of (DUONEB) 01:00: , Q4H, [place] 0.5 mg-3 00 First dose Medic al mg(2.5 mg on [facility] base)/3 mL 09/30/21 at nebulizer 2000, solution 3 Until mL Discontinu ed, Routine diphenhydrA 2-0 Yes [id number] 25mg Take 1 [facility] MINE 25 mg 8-19 tablet by ity of tablet 00:00: mouth [place] 00 every 6 Medical (six) Branch hours as needed for Itching or Allergies. diphenhydrA 2021-0 Yes [id number] 25mg Take 1 [facility] MINE 25 mg 8-19 tablet by ity of tablet 00:00: mouth [place] 00 every 6 Medical (six) Branch hours as needed for Itching or Allergies. diphenhydrA 2021-0 Yes [id number] 25mg Take 1 [facility] MINE 25 mg 8-19 tablet by ity of tablet 00:00: mouth [place] 00 every 6 Medical (six) Branch hours as needed for Itching or Allergies. diphenhydrA 2021-0 Yes [id number] 25mg Take 1 [facility] MINE 25 mg 8-19 tablet by ity of tablet 00:00: mouth [place] 00 every 6 Medical (six) Branch hours as needed for Itching or Allergies. diphenhydrA 2021-0 Yes [id number] 25mg Take 1 [facility] MINE 25 mg 8-19 tablet by ity of tablet 00:00: mouth [place] 00 every 6 Medical (six) Branch hours as needed for Itching or Allergies. diphenhydrA 2021-0 Yes [id number] 25mg Take 1 [facility] MINE 25 mg 8-19 tablet by ity of tablet 00:00: mouth [place] 00 every 6 Medical (six) Branch hours as needed for Itching or Allergies. diphenhydrA 2021-0 Yes [id number] 25mg Take 1 [facility] MINE 25 mg 8-19 tablet by ity of tablet 00:00: mouth [place] 00 every 6 Medical (six) Branch hours as needed for Itching or Allergies. diphenhydrA 2-0 Yes [id number] 25mg Take 1 [facility] MINE 25 mg 8-19 tablet by ity of tablet 00:00: mouth [place] 00 every 6 Medical (six) Branch hours as needed for Itching or Allergies. Budesonide 2021-0 Yes [id number] 2{puff} Inhale 2 [facility] 180 8-19 Puffs 2 ity of mcg/actuati 00:00: (two) [place] on aerosol 00 times Medical powder daily. Branch diphenhydrA 2021-0 Yes [id number] 25mg Take 1 [facility] MINE 25 mg 8-19 tablet by ity of tablet 00:00: mouth [place] 00 every 6 Medical (six) Branch hours as needed for Itching or Allergies. Budesonide 2021-0 Yes [id number] 2{puff} Inhale 2 [facility] 180 8-19 Puffs 2 ity of mcg/actuati 00:00: (two) [place] on aerosol 00 times Medical powder daily. Branch diphenhydrA 2021-0 Yes [id number] 25mg Take 1 [facility] MINE 25 mg 8-19 tablet by ity of tablet 00:00: mouth [place] 00 every 6 Medical (six) Branch hours as needed for Itching or Allergies. diphenhydrA 2021-0 Yes [id number] 25mg Take 1 [facility] MINE 25 mg 8-19 tablet by ity of tablet 00:00: mouth [place] 00 every 6 Medical (six) Branch hours as needed for Itching or Allergies. diphenhydrA 2021-0 Yes [id number] 25mg Take 1 [facility] MINE 25 mg 8-19 tablet by ity of tablet 00:00: mouth [place] 00 every 6 Medical (six) Branch hours as needed for Itching or Allergies. diphenhydrA 2021-0 Yes [id number] 25mg Take 1 [facility] MINE 25 mg 8-19 tablet by ity of tablet 00:00: mouth [place] 00 every 6 Medical (six) Branch hours as needed for Itching or Allergies. diphenhydrA 2021-0 Yes [id number] 25mg Take 1 [facility] MINE 25 mg 8-19 tablet by ity of tablet 00:00: mouth [place] 00 every 6 Medical (six) Branch hours as needed for Itching or Allergies. metFORMIN 2021-0 2021- No [id number] 500mg Take 1 [facility] 500 mg 8-19 09-19 tablet by ity of tablet 00:00: 04:59 mouth 2 [place] 00 :00 (two) Medical times Branch daily with meals for 30 days. ipratropium 2021-0 2021- No 3mL 3 mL, Univ ers -albuteroL 09-30- Inhalation it y of (DUONEB) 23:30: 22:37 , ONCE, 1 [place] 0.5 mg-3 00 :00 dose, On Medical mg(2.5 mg [place] [facility] base)/3 mL 09/30/21 at nebulizer 1830, solution 3 Routine mL albuterol 2021-0 Yes 2.5mg 2.5 mg, Univ ers (PROVENTIL) 09-30 Inhalation it y of 2.5 mg /3 23:25: , Q2HPRN, [place] mL (0.083 56 Starting Medica l %) on [facility] Branch nebulizer 09/30/21 at solution 1825, 2.5 mg Until Discontinu ed, Routine, Shortness of Breath, Wheezing budesonide 2021-0 Yes .5mg 0.5 mg, Univ ers (PULMICORT 09-30 Inhalation ity of RESPULE) 23:15: , DAILY, [place] nebulizer 00 First dose Medi charles solution on [place] [facility] 0.5 mg 09/30/21 at 1815, Until Discontinu ed, Routine acetaminoph 2021-0 Yes 650mg 650 mg, Un harriet en 09-30 Oral, ity of (TYLENOL) 23:04: Q6HPRN, [place] tablet 650 08 Starting Medic al mg on [place] [facility] 09/30/21 at 1804, Until Discontinu ed, Routine, Pain (scale 1-3) ipratropium 2021-0 2021- No 3mL 3 mL, Univ ers -albuteroL 09-30 Inhalation it y of (DUONEB) 22:45: 21:34 , ONCE, 1 [place] 0.5 mg-3 00 :00 dose, On Medical mg(2.5 mg [place] [facility] base)/3 mL 09/30/21 at nebulizer 1745, solution 3 Routine mL magnesium 2021-0 2021- No 1g 1 g, IV Univ ers sulfate in 09-30 Piggyback, it y of D5W 1 22:00: 22:22 ONCE, 1 [place] gram/100 mL 00 :00 dose, On Medi charles RTU IV [place] [facility] Piggyback 1 09/30/21 at g 1700, Administer over 60 Minutes, 100 mL ipratropium 2021-0 2021- No 3mL 3 mL, Univ ers -albuteroL 09-30 Inhalation it y of (DUONEB) 21:45: 20:58 , ONCE, 1 [place] 0.5 mg-3 00 :00 dose, On Medical mg(2.5 mg [place] [facility] base)/3 mL 09/30/21 at nebulizer 1645, solution 3 Routine mL methylPREDN 0 2021- No 125mg 125 mg, U g[facility]ers ISolone sod 09-30 Intravenou i ty of succ 21:00: 21:00 s, ONCE, 1 [place] (SOLU-MEDRO 00 :00 dose, On Medi charles L (PF)) [place] [facility] injection 09/30/21 at 125 mg 1600, LOGAN Dose 2021-0 No Unknown 8- 00:00: 00 Dose 2021-0 No Unknown 8 00:00: 00 Dose 2021-0 No Unknown 09-23 00:00: 00 Dose 2021-0 No Unknown 09-23 00:00: 00 albuterol 2021-0 2021- No 7.5mg 7.5 mg, Uni vers (PROVENTIL) 09-09 Inhalation i ty of 2.5 mg /3 05:15: 04:28 , ONCE, 1 [place] mL (0.083 00 :00 dose, On Medica l %) [place] [facility] nebulizer 09/09/21 at solution 0015, STAT 7.5 mg albuterol 2021-0 2021- No 7.5mg 7.5 mg, Uni vers (PROVENTIL) 09-09 Inhalation i ty of 2.5 mg /3 03:45: 03:07 , ONCE, 1 [place] mL (0.083 00 :00 dose, On Medica l %) Wed Branch nebulizer 09/08/21 at solution 2245, STAT 7.5 mg ipratropium 2021-0 2021- No 3mL 3 mL, Univ ers -albuteroL 09-09 Inhalation it y of (DUONEB) 03:45: 03:07 , ONCE, 1 [place] 0.5 mg-3 00 :00 dose, On Medical mg(2.5 mg Wed Branch base)/3 mL 09/08/21 at nebulizer 2245, solution 3 Routine mL methylPREDN 2021-0 2021- No 40mg 40 mg, Uni vers ISolone sod 7-28 07-28 Intravenou i ty of succ 02:45: 02:48 s, ONCE, 1 [place] (SOLU-MEDRO 00 :00 dose, On Medi charles L (PF)) Mon Branch injection 09/08/21 at 40 mg 5, LOGAN sodium Yes 5mL 5 mL, Univers chloride -28 Intravenou ity o f (NS) 02:37: s, PRN, [place] injection 5 17 Starting Medi charles mL on Wed Branch 09/08/21 at 2137, Until Discontinu ed, Routine, IV line flushing predniSONE 2021- Yes [id number] Take 1 Univers 20 mg 7-28 tablet by ity of tablet 00:00: mouth [place] 00 daily Medical until gone Branch albuterol Yes [id number] 2{puff} Inhale 2 Univers 90 7-28 Puffs ity of mcg/actuati 00:00: every 4 [place] on inhaler 00 (four) Medical hours as Branch needed for Wheezing or Shortness of Breath. predniSONE 2021- No [id number] Take 1 Univers 20 mg 7-28 08-19 tablet by ity of tablet 00:00: 00:00 mouth [place] 00 :00 daily Medical until gone Branch albuterol 2021-2021- No [id number] 2{puff} Inhale 2 Univers 90 7-28 08-19 Puffs ity of mcg/actuati 00:00: 00:00 every 4 [place] on inhaler 00 :00 (four) Medical hours as Branch needed for Wheezing or Shortness of Breath. Dose 2021-0 No Unknown - 00:00: 00 Dose 2021-0 No Unknown - 00:00: 00 Dose 2021-0 No Unknown - 00:00: 00 Dose 2-0 No Unknown - 00:00: 00 Dose 2-0 No Unknown 7- 00:00: 00 Dose 2-0 No Unknown 7- 00:00: 00 Dose 2-0 No Unknown 7- 00:00: 00 Dose 2-0 No Unknown 7- 00:00: 00 Dose 2022-0 No Unknown 7- 00:00: 00 Dose 2022-0 No Unknown 7- 00:00: 00 Dose 2022-0 No Unknown - 00:00: 00 Dose 2022-0 No Unknown 7- 00:00: 00 TAKE 1 2022-0 No 500 TABLET 7-06 TWICE DAILY 00:00: WITH FOOD. 00 Dose 2022-0 No Unknown 7-06 00:00: 00 Dose 2022-0 No Unknown 7-06 00:00: 00 TAKE 1 2022-0 No 500 TABLET 7-06 TWICE DAILY 00:00: WITH FOOD. 00 Dose 2022-0 No Unknown 7-06 00:00: 00 Dose 2022-0 No Unknown 7- 00:00: 00 TAKE 1 2022-0 No 500 TABLET 7-06 TWICE DAILY 00:00: WITH FOOD. 00 Dose 2022-0 No Unknown 7-06 00:00: 00 Dose 2022-0 No Unknown 7- 00:00: 00 Dose 2022-0 No Unknown 7- 00:00: 00 TAKE 1 2022-0 No 500 TABLET 7-06 TWICE DAILY 00:00: WITH FOOD. 00 Dose 2-0 No Unknown 7-06 00:00: 00 TAKE 1 2-0 No 500 TABLET 7-06 TWICE DAILY 00:00: WITH FOOD. 00 amlodipine 2-0 No 1mg 10 mg [...] 2022-0 No Unknown 6-18 00:00: 00 Symbicort 2022-0 No 2mcg/ac 160 mcg-4.5 06-21 tuation mcg/actuati 00:00: on HFA 00 aerosol inhaler ProAir HFA 2-0 No 12mcg/a 90 06-21 ctuatio mcg/actuati 00:00: n on aerosol 00 [...] USE. ProAir HFA 2-0 No 12mcg/a 90 - ctuatio mcg/actuati 00:00: n on aerosol 00 inhaler loratadine 2-0 No 1mg 10 mg 5-09 tablet 00:00: 00 Dose 2022-0 No Unknown 5-09 00:00: 00 hydrochloro 2-0 No 1mg thiazide [...] 2021-0 No Unknown 5-09 00:00: 00 loratadine 2-0 No 1mg 10 mg 5-09 tablet 00:00: 00 hydrochloro 2-0 No 1mg thiazide 25 5-09 mg tablet 00:00: 00 lisinopril 2-0 No 1mg 40 mg 5-09 tablet 00:00: 00 Dose 2-0 No Unknown 5-09 00:00: 00 Dose 2-0 No Unknown 5-09 00:00: 00 Budesonide- 2-0 [...] 2-0 No Unknown 5-07 00:00: 00 Dose 2022-0 [...] tablet 00:00: 00 Dose 2-0 No Unknown 2-01 00:00: 00 Dose 2-0 No Unknown 2-01 [...] 20 mg 0-18 tablet 00:00: 00 Symbicort 2020- No 2mcg/ac 160 mcg-4.5 0-18 tuation mcg/actuati [...] 00:00: on HFA 00 aerosol inhaler amlodipine 2020-0 No 1mg 10 mg 8-27 tablet 00:00: [...] 5 mg tablet 08-25 00:00: 00 amlodipine 2020-0 No 1mg 5 mg tablet 08-25 00:00: [...] 00 syrup ipratropium 2020-0 No 3mg 0.5 7- base)/3 mg-albutero 00:00: mL l 3 mg (2.5 00 mg base)/3 mL nebulizatio n soln Advair HFA 2020-0 No 1mcg/ac 230 mcg-21 -07 tuation mcg/actuati 00:00: on aerosol 00 inhaler levofloxaci 1-0 No 1mg n 500 mg -07 tablet 00:00: 00 prednisone 1-0 No mg 20 mg 7-07 tablet 00:00: 00 Bromfed DM 1-0 No 5mg/5 2 mg-30 7-07 mL mg-10 mg/5 00:00: mL oral 00 syrup ipratropium 1-0 No 3mg 0.5 7- base)/3 mg-albutero 00:00: mL l 3 mg [...] levofloxaci 2020-0 No 1mg n 500 mg 7-07 tablet [...] levofloxaci 2020-0 No 1mg n 500 mg 7-07 tablet 00:00: 00 prednisone 1-0 No mg 20 mg 7-07 tablet 00:00: 00 Bromfed DM 2020-0 No 5mg/5 2 mg-30 7-07 mL mg-10 mg/5 00:00: mL oral 00 syrup ipratropium 2020-0 No 3mg 0.5 7-07 base)/3 mg-albutero 00:00: mL l 3 mg (2.5 00 mg base)/3 mL nebulizatio n soln loratadine 2020-0 No 1mg 10 mg 6-28 [...] solution for nebulizatio n methylPREDN 2020-0 Yes [id number] [facility] mg tablets 00:00: [place]-INSTRU [place] 00 CTIONS. Medical follow Branch package directions methylPREDN 1-0 Yes [id number] Take by [facility] ISolone 4 6-15 mouth ity of mg tablets 00:00: SEE-INSTRU [place] 00 CTIONS. Medical follow Branch package directions methylPREDN 2020-0 Yes [id number] [facility] mouth ity of mg tablets 00:00: SEE-INSTRU [place] 00 CTIONS. Medical follow Branch package directions methylPREDN 2020-0 2022- No [id number] [facility] 08-19 mouth ity of mg tablets 00:00: 00:00 SEE-INSTRU [place] 00 :00 CTIONS. Medical follow Branch package directions methylPREDN 1-0 Yes 40mg 40 mg, Univ [facility] ISolone sod - Intravenou it y of succ 19:00: s, Q8H, [place] (SOLU-MEDRO 00 First dose Me dical L (PF)) on Mon Branch injection 07/27/20 at 40 mg 1400, Until Discontinu ed, Routine iopamidol 2020- No [id number] 100mL 100 mL, Univers (ISOVUE 07-27 Intravenou ity o f 370-500 mL) 16:30: 15:12 s, ONCE, 1 [place] injection 00 :00 dose, Mon Medic al 100 mL 07/27/20 at Branch 1130, Routine lisinopriL 0 Yes 40mg 40 mg, Unive rs (PRINIVIL,Z 07-27 Oral, ity of ESTRIL) 14:00: DAILY, [place] tablet 40 00 First dose Medi charles mg on [facility] 07/27/20 at 0900, Until Discontinu ed hydroCHLORO 0 Yes 12.5mg 12.5 mg, Univers thiazide 07-27 Oral, ity of (ESIDRIX) 14:00: DAILY, [place] capsule 00 First dose Medica l 12.5 mg on [facility] 07/27/20 at 0900, Until Discontinu ed, Routine ipratropium Yes 3mL 3 mL, Unive rs -albuteroL 07-27 Inhalation ity of (DUONEB) 13:00: , QID, [place] 0.5 mg-3 00 First dose Medic al mg(2.5 mg on [place] base)/3 mL 07/27/20 at nebulizer 0800, solution 3 Until mL Discontinu ed, Routine enoxaparin Yes 40mg 40 mg, Unive rs (LOVENOX) 07-27 Subcutaneo ity of injection 13:00: us, Q12H, [place] 40 mg 00 First dose Medical on [facility] 07/27/20 at 0800, Until Discontinu ed, Routine docusate Yes 100mg 100 mg, Unive rs (COLACE) 14 Oral, ity of capsule 100 10:20: QDAILYPRN, [place] mg 17 Starting Medical [facility] 07/27/20 at 0520, Until Discontinu ed, Routine, Constipati on HYDROcodone 2020- No 1{tbl} 1 tablet, Univers -acetaminop 07-27 06-16 Oral, ity of hen (NORCO 10:20: 10:19 Q6HPRN, [place] 5) 5-325 mg 07 :07 Starting Medi charles tablet 1 [place] tablet 07/27/20 at 0520, Until 07/29/20 at 0519, Routine, Pain (scale 4-6) acetaminoph Yes 650mg 650 mg, Un harriet en 07-27 Oral, ity of (TYLENOL) 10:19: Q6HPRN, [place] tablet 650 59 Starting Medic al mg Mon Branch 07/27/20 at 0519, Until Discontinu ed, Routine, Pain (scale 1-3), Temp > 38.5 C albuterol 2020- No 5mg 5 mg, Univer s (PROVENTIL) 07-27 Inhalation i ty of 2.5 mg /3 08:30: 08:41 , ONCE, 1 [place] mL (0.083 00 :00 dose, Mon Medic al %) 07/27/20 at [place] nebulizer 0330, STAT solution 5 mg albuterol 2020- No 5mg 5 mg, Univer s (PROVENTIL) 07-27 Inhalation i ty of 2.5 mg /3 07:15: 07:13 , ONCE, 1 [place] mL (0.083 00 :00 dose, Mon Medic al %) 07/27/20 at [place] nebulizer 0215, STAT solution 5 mg magnesium 2020- No 2g 2 g, IV Univ ers sulfate in 07-27 Piggyback, it y of water 2 07:15: 07:15 ONCE, 1 [place] gram/50 mL 00 :00 dose, Mon Medi charles (4 %) 07/27/20 at [place] infusion 2 0215, g Routine methylpredn 2020- No 125mg 125 mg, IV Univers isolone sod 07-27 Piggyback, i ty of succ 07:15: 06:08 ONCE, 1 [place] (SOLU-MEDRO 00 :00 dose, Mon Med ical L) 07/27/20 at [place] injection 0215, STAT 125 mg ipratropium 2020- No .5mg 0.5 mg, Un harriet (ATROVENT) 07-27 Inhalation it y of 0.02 % 06:15: 06:06 , ONCE, 1 [place] nebulizer 00 :00 dose, Mon Medic al solution 07/27/20 at [facility] h 0.5 mg 0115, LOGAN albuterol 2020- No 7.5mg 7.5 mg, Uni vers (PROVENTIL) 07-27 Inhalation i ty of 2.5 mg /3 06:15: 06:06 , ONCE, 1 [place] mL (0.083 00 :00 dose, Mon Medic al %) 07/27/20 at [place] nebulizer 0115, STAT solution 7.5 mg predniSONE 2020- No [id number] 40mg Take 2 Univers 20 mg 07-15 tablets by ity of tablet 00:00: 04:59 mouth [place] 00 :00 daily for Medical 4 days. Branch levoFLOXaci Yes 750mg 750 mg, Un harriet [...] mouth ity of tablet 15:41: 00:00 daily. [place] 01 :00 Medical Branch albuterol 2020- No Inhale. Univ ers sulfate 07-14 ity of (PROAIR 15:35: [...] Routine Sliding Yes Subcutaneo Univ ers Scale 6- us, TID ity of Insulin - 02:00: MEALS+HS, [place] Lispro 00 First dose Medical (HumaLOG) + on Mon Fsbg 07/13/20 at Testing 2100, Until Discontinu ed, Routine albuterol Yes [id number] 2{puff} Inhale 2 [facility] 90 6-01 Puffs ity of mcg/actuati 00:00: every 4 [place] on inhaler 00 (four) Medical hours as Branch needed for Wheezing or Shortness of Breath. albuterol Yes [id number] 2{puff} Inhale 2 Univers 90 6-01 Puffs ity of mcg/actuati 00:00: every 4 [place] on inhaler 00 (four) Medical hours as Branch needed for Wheezing or Shortness of Breath. albuterol Yes [id number] 2{puff} Inhale 2 Univers 90 6-01 Puffs ity of mcg/actuati 00:00: every 4 [place] on inhaler 00 (four) Medical hours as Branch needed for Wheezing or Shortness of Breath. albuterol Yes [id number] 2{puff} Inhale 2 [facility] 90 6-01 Puffs ity of mcg/actuati 00:00: every 4 [place] on inhaler 00 (four) Medical hours as Branch needed for Wheezing or Shortness of Breath. albuterol Yes [id number] 2{puff} Inhale 2 Univers 90 6-01 Puffs ity of mcg/actuati 00:00: every 4 [place] on inhaler 00 (four) Medical hours as Branch needed for Wheezing or Shortness of Breath. albuterol Yes [id number] 2{puff} Inhale 2 Univers 90 6-01 Puffs ity of mcg/actuati 00:00: every 4 [place] on inhaler 00 (four) Medical hours as Branch needed for Wheezing or Shortness of Breath. albuterol Yes [id number] 2{puff} Inhale 2 [facility] 90 6-01 Puffs ity of mcg/actuati 00:00: every 4 [place] on inhaler 00 (four) Medical hours as Branch needed for Wheezing or Shortness of Breath. albuterol 2020-0 Yes [id number] 2{puff} Inhale 2 [facility] 90 6-01 Puffs ity of mcg/actuati 00:00: every 4 [place] on inhaler 00 (four) Medical hours as Branch needed for Wheezing or Shortness of Breath. levoFLOXaci 2020-0 Yes [id number] 750mg Take 1 Univers n 750 mg 6-01 tablet by ity of tablet 00:00: mouth [place] 00 every 24 Medical (twenty-fo Branch ur) hours. albuterol 2020-0 Yes [id number] 2{puff} Inhale 2 Univers 90 6-01 Puffs ity of mcg/actuati 00:00: every 4 [place] on inhaler 00 (four) Medical hours as Branch needed for Wheezing or Shortness of Breath. levoFLOXaci 2020-0 Yes [id number] 750mg Take 1 Univers n 750 mg 6-01 tablet by ity of tablet 00:00: mouth [place] 00 every 24 Medical (twenty-fo Branch ur) hours. albuterol 2020-0 Yes [id number] 2{puff} Inhale 2 Univers 90 6-01 Puffs ity of mcg/actuati 00:00: every 4 [place] on inhaler 00 (four) Medical hours as Branch needed for Wheezing or Shortness of Breath. levoFLOXaci 2020-0 Yes [id number] 750mg Take 1 Univers n 750 mg 6-01 tablet by ity of tablet 00:00: mouth [place] 00 every 24 Medical (twenty-fo Branch ur) hours. albuterol 2020-0 Yes [id number] 2{puff} Inhale 2 Univers 90 6-01 Puffs ity of mcg/actuati 00:00: every 4 [place] on inhaler 00 (four) Medical hours as Branch needed for Wheezing or Shortness of Breath. levoFLOXaci 2020-0 Yes [id number] 750mg Take 1 Univers n 750 mg 6-01 tablet by ity of tablet 00:00: mouth [place] 00 every 24 Medical (twenty-fo Branch ur) hours. albuterol 2020-0 Yes [id number] 2{puff} Inhale 2 Univers 90 6-01 Puffs ity of mcg/actuati 00:00: every 4 [place] on inhaler 00 (four) Medical hours as Branch needed for Wheezing or Shortness of Breath. albuterol Yes [id number] 2{puff} Inhale 2 Univers 90 6-01 Puffs ity of mcg/actuati 00:00: every 4 [place] on inhaler 00 (four) Medical hours as Branch needed for Wheezing or Shortness of Breath. albuterol Yes [id number] 2{puff} Inhale 2 Univers 90 6-01 Puffs ity of mcg/actuati 00:00: every 4 [place] on inhaler 00 (four) Medical hours as Branch needed for Wheezing or Shortness of Breath. albuterol Yes [id number] 2{puff} Inhale 2 Univers 90 6-01 Puffs ity of mcg/actuati 00:00: every 4 [place] on inhaler 00 (four) Medical hours as Branch needed for Wheezing or Shortness of Breath. albuterol Yes [id number] 2{puff} Inhale 2 Univers 90 6-01 Puffs ity of mcg/actuati 00:00: every 4 [place] on inhaler 00 (four) Medical hours as Branch needed for Wheezing or Shortness of Breath. levoFLOXaci Yes [id number] 750mg Take 1 Univers n 750 mg 6-01 tablet by ity of tablet 00:00: mouth [place] 00 every 24 Medical (twenty-fo Branch ur) hours. albuterol Yes [id number] 2{puff} Inhale 2 [facility] 90 6-01 Puffs ity of mcg/actuati 00:00: every 4 [place] on inhaler 00 (four) Medical hours as Branch needed for Wheezing or Shortness of Breath. albuterol Yes [id number] 2{puff} Inhale 2 Univers 90 6-01 Puffs ity of mcg/actuati 00:00: every 4 [place] on inhaler 00 (four) Medical hours as Branch needed for Wheezing or Shortness of Breath. albuterol Yes [id number] 2{puff} Inhale 2 Univers 90 6-01 Puffs ity of mcg/actuati 00:00: every 4 [place] on inhaler 00 (four) Medical hours as Branch needed for Wheezing or Shortness of Breath. levoFLOXaci 2021- No [id number] 750mg Take 1 Univers n 750 mg 07-14 tablet by ity o f tablet 00:00: 00:00 mouth [place] 00 :00 every 24 Medical (twenty-fo Branch ur) hours. lisinopriL 2020- No [id number] 40mg Take 1 [facility] 40 mg 07-14- tablet by ity of tablet 00:00: 04:59 mouth [place] 00 :00 daily for Medical 30 days. Branch hydroCHLORO 2020- No [id number] 12.5mg Take 1 Univers thiazide -02 19- capsule by ity of 12.5 mg 00:00: 04:59 mouth [place] capsule 00 :00 daily for Medical 30 days. Branch lisinopriL 2020- No [id number] 40mg Take 1 [facility] 40 mg -02 19- tablet by ity of tablet 00:00: 04:59 mouth [place] 00 :00 daily for Medical 30 days. Branch hydroCHLORO 2020- No [id number] 12.5mg Take 1 [facility] thiazide -02 19- capsule by ity of 12.5 mg 00:00: 04:59 mouth [place] capsule 00 :00 daily for Medical 30 days. Branch lisinopriL 2020- No [id number] 40mg Take 1 [facility] 40 mg -02 19- tablet by ity of tablet 00:00: 04:59 mouth [place] 00 :00 daily for Medical 30 days. Branch hydroCHLORO 2020- No [id number] 12.5mg Take 1 [facility] thiazide -02 19- capsule by ity of 12.5 mg 00:00: 04:59 mouth [place] capsule 00 :00 daily for Medical 30 days. Branch lisinopriL 2020- No [id number] 40mg Take 1 [facility] 40 mg -02 19- tablet by ity of tablet 00:00: 04:59 mouth [place] 00 :00 daily for Medical 30 days. Branch hydroCHLORO 2020- No [id number] 12.5mg Take 1 [facility] thiazide 6-02 19-02 capsule by ity of 12.5 mg 00:00: 04:59 mouth [place] capsule 00 :00 daily for Medical 30 days. Branch glucagon Yes 1mg 1 mg, Univers (GLUCAGEN 07-13 Intramuscu ity of DIAGNOSTIC 23:16: [place], PRN, [place] KIT) 28 Starting Medical injection 1 Mon [facility] 07/13/20 at 1816, Until Discontinu ed, LOGAN, Blood Glucose < or = 70 mg/dL and patient is unable to swallow or has mental changes. dextrose 50 0 Yes 25mL 25 mL, Univ ers % in water 07-13 Slow IV ity of (D50W) 23:16: Push, PRN, [place] injection 28 Starting Medica l 25 mL [facility] 07/13/20 at 1816, Until Discontinu ed, LOGAN, Blood Glucose < or = 70 mg/dL and patient is unable to swallow or has mental status changes. lisinopriL Yes 20mg 20 mg, Unive rs (PRINIVIL,Z 07-12 Oral, ity of ESTRIL) 14:00: DAILY, [place] tablet 20 00 First dose Medi charles mg (after Branch last modificati on) on [place] 07/12/20 at 0900, Until Discontinu ed, Routine furosemide 2020- No 20mg 20 mg, Univ ers (LASIX) 07-12-30 Slow IV ity of injection 01:00: 02:08 Push, [place] 20 mg 00 :00 ONCE, 1 Medical dose, Sat [place] 07/11/20 at 2000, Routine zolpidem Yes 5mg 5 mg, Univers (AMBIEN) 07-11 Oral, ity of tablet 5 mg 23:15: QHSPRN, [place] as 57 Starting Medical [facility] 07/11/20 at 1815, Until Discontinu ed, Routine, Insomnia amLODIPine Yes 10mg 10 mg, Unive rs (NORVASC) 07-11 Oral, ity of tablet 10 21:00: DAILY, [place] mg 00 First dose Medical on [facility] 07/11/20 at 1600, Until Discontinu ed, Routine methylpredn 2020- No 60mg 60 mg, Uni vers isolone sod 07-11 Slow IV ity of succ 17:30: 23:16 Push, Q6H, [place] (SOLU-MEDRO 00 :03 First dose Me dical L) on [facility] injection 07/11/20 at 60 mg 1230, Until Discontinu ed, Routine albuterol Yes 2.5mg 2.5 mg, Univ ers (PROVENTIL) 07-11 Inhalation it y of 2.5 mg /3 17:04: , Q2HPRN, Kike as mL (0.083 47 Starting Medica l %) [facility] nebulizer 07/11/20 at solution 1204, 2.5 mg Until Discontinu ed, Routine, Shortness of Breath, Wheezing enoxaparin Yes 40mg 40 mg, Unive rs (LOVENOX) 07-09 Subcutaneo ity of injection 22:00: [place] 40 [place] [address] First dose Medical on [facility] 07/09/20 at 1700, Until Discontinu ed, Routine lisinopriL 2020- No 10mg 10 mg, Univ ers (PRINIVIL,Z 07-09 Oral, ity of ESTRIL) 14:00: 20:46 DAILY, [place] tablet 10 00 :45 First dose Medi charles mg on [facility] 07/09/20 at 0900, Until Discontinu ed, Routine predniSONE 2020- No 50mg 50 mg, Univ ers (DELTASONE) 07-09 Oral, ity of tablet 50 14:00: 23:57 DAILY, [place] mg 00 :[address] dose Medical on [facility] 07/09/20 at 0900, Until Discontinu ed, Routine NaCl 0.9% Yes 1000mL at 50 Unive rs (NS) IV 5- mL/hr, IV ity of infusion 13:30: In[place] 1[place]000 [place] 00 CONTINUOUS Medic al , Starting Branch [facility] 07/09/20 at 0830, Until Discontinu ed, Routine docusate Yes 100mg 100 mg, Unive rs (COLACE) 07-09 Oral, BID, ity o f capsule 100 13:00: First dose [place] mg 00 on [facility] Medical 07/09/20 at Branch 0800, Until Discontinu ed, Routine ipratropium 2020- No 3mL 3 mL, Univ ers -albuteroL 07-09 Inhalation it y of (DUONEB) 13:00: 08:57 , QID, [place] 0.5 mg-3 00 :36 First dose Medic al mg(2.5 mg on Astrid Branch base)/3 mL 07/09/20 at nebulizer 0800, solution 3 Until mL Discontinu ed, Routine ipratropium 2020-0 2020- No 3mL 3 mL, Univ ers -albuteroL 07-09 Inhalation it y of (DUONEB) 13:00: 08:57 , QID, [place] 0.5 mg-3 00 :36 First dose Medic [...] IV Push, ity of (PF)) 09:03: Q6HPRN, [place] injection 4 54 Starting Medi charles mg [facility] Branch 07/09/20 at 0403, Until Discontinu ed, Routine, Nausea and Vomiting (N/V) budesonide 2020-0 Yes .5mg 0.5 mg, Univ ers (PULMICORT 07-09 Inhalation ity of RESPULE) 09:00: , BID, [place] nebulizer 00 First dose Medi charles solution on [facility] Branch 0.5 mg 07/09/20 at 0400, Until Discontinu ed, Routine
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 approving Restricted medication : MEGADC ipratropium 2020-0 Yes 3mL 3 mL, Unive rs -albuteroL 07-09 Inhalation ity of (DUONEB) 09:00: , Q4H, [place] 0.5 mg-3 00 First dose Medic al mg(2.5 mg (after Branch base)/3 mL last nebulizer modificati solution 3 on) on Astrid mL 07/09/20 at 0400, Until Discontinu ed, Routine albuterol No 2.5mg 2.5 mg, Uni vers (PROVENTIL) 07-09 Inhalation i ty of 2.5 mg /3 09:00: 07:56 , ONCE, 1 [place] mL (0.083 00 :00 dose, Astrid Medic al %) 07/09/20 at Ray nebulizer 0400, STAT solution 2.5 mg magnesium No 2g 2 g, IV Univ ers sulfate in 07-09 Piggyback, it y of water 2 06:45: 06:25 ONCE, 1 [place] gram/50 mL 00 :00 dose, Astrid Medi charles (4 %) 07/09/20 at Ray infusion 2 0145, g Routine methylpredn No 125mg 125 mg, IV Univers isolone sod 07-09 Piggyback, i ty of succ 06:45: 05:31 ONCE, 1 [place] (SOLU-MEDRO 00 :00 dose, Astrid Med ical L) 07/09/20 at Ray injection 0145, STAT 125 mg levoFLOXaci 2020- [...] ion of therapy: 72 hours ProAir HFA 0 No 1mcg/ac 90 5-18 tuation mcg/actuati 00:00: on aerosol 00 inhaler lisinopril No 1mg 40 mg 5-18 tablet 00:00: [...] mg-hydrochl 00:00: orothiazide 00 12.5 mg tablet azithromyci 2018-0 No 2mg n 250 mg [...] 20 mg 5-07 tablet 00:00: 00 methotrexat 2016-02 No 3mg e sodium [...] 500 mg 0-23 tablet 00:00: 00 naproxen 2016-02 No 1mg 500 mg 0-23 [...] 2017-01-02 Completed 00:00:00 TST-PPD intradermal 2017-01-02 Completed Kelse y Seybold 00:00:00 - External TST-PPD intradermal 2017-01-02 Completed Kelse y Seybold 00:00:00 - External TST-PPD intradermal 2017-01-02 Completed Kelse y Seybold 00:00:00 - External TST-PPD intradermal 2017-01-02 Completed Kelse y Seybold 00:00:00 - External Vital Signs Vital Name Observation Time Observation Value Comments Source Systolic blood 2022-09-08 06:00:00 142 mm[Hg] Univer sity of [facility] Diastolic blood 2022-09-08 06:00:00 86 mm[Hg] Unive rsity of [facility] Heart rate 2022-09-08 06:00:00 77 /min [facility] Respiratory rate 2022-09-08 06:00:00 15 /min [facility] [place] [facility] Oxygen saturation in 2022-09-08 06:00:00 96 /min University of Arterial blood by [place] [employer] Pulse oximetry Branch Body temperature 2022-09-08 03:18:00 36.56 Madhuri [facility] [place] [facility] Body height 2022-09-08 03:18:00 152.4 cm [facility] Body weight 2022-09-08 03:18:00 131.543 kg [facility] BMI 2022-09-08 03:18:00 56.64 kg/m2 [facility] Systolic blood 2022-08-19 02:00:00 152 mm[Hg] Univer sity of [facility] Diastolic blood 2022-08-19 02:00:00 95 mm[Hg] Unive rsity of [facility] Heart rate 2022-08-19 02:00:00 78 /min [facility] Respiratory rate 2022-08-19 02:00:00 18 /min [facility] [place] [facility] Oxygen saturation in 2022-08-19 02:00:00 100 /min University of Arterial blood by [employer] Pulse oximetry Branch Body temperature 2022-08-18 22:36:00 37.22 Madhuri Univ ersity of [facility] Body weight 2022-08-18 22:36:00 138.801 kg Universi ty [facility] [place] [facility] BMI 2022-08-18 22:36:00 61.80 kg/m2 Universi ty of [facility] Systolic blood 2022-08-15 13:45:00 124 mm[Hg] Franny Hartleyybold - pressure External Diastolic blood 2022-08-15 13:45:00 80 mm[Hg] Clay bárbara Seybold - pressure External Heart rate 2022-08-15 13:45:00 109 /min Franny S eybold - External Body temperature 2022-08-15 13:45:00 36.39 Madhuri Gloria ey Seybold - External Respiratory rate 2022-08-15 13:45:00 15 /min Gloria lopez Seybold - External Body height 2022-08-15 13:45:00 160 cm Franny S eybold - External Body weight 2022-08-15 13:45:00 135.172 kg Franny Lloyd eybold - External BMI 2022-08-15 13:45:00 52.79 kg/m2 Franny Lloyd eybold - External Systolic blood 2022-06-03 18:32:00 162 mm[Hg] Univer sity of pressure [facility] Diastolic blood 2022-06-03 18:32:00 88 mm[Hg] Unive rsity of pressure [facility] Heart rate 2022-06-03 18:18:00 79 /min Universi ty [facility] Body temperature 2022-06-03 18:18:00 36.56 Madhuri [facility] Respiratory rate 2022-06-03 18:18:00 18 /min [facility] Body height 2022-06-03 18:18:00 149.9 cm Universi ty of [facility] Body weight 2022-06-03 18:18:00 132.632 kg Universi ty of [facility] BMI 2022-06-03 18:18:00 59.06 kg/m2 Universi [facility] Oxygen saturation in 2022-06-03 18:18:00 96 /min [facility] Arterial blood by [facility] Pulse oximetry Branch Systolic blood 2022-05-20 21:03:00 154 mm[Hg] Franny Mi - pressure External Diastolic blood 2022-05-20 21:03:00 88 mm[Hg] Clay Mi - pressure External Heart rate 2022-05-20 21:03:00 105 /min Franny lopezbolee - External Body temperature 2022-05-20 21:03:00 36.56 Madhuri Gloria Mi - External Respiratory rate 2022-05-20 21:03:00 15 /min Gloria Mi - External Body height 2022-05-20 21:03:00 160 cm Franny lopezbolee - External Body weight 2022-05-20 21:03:00 133.358 kg Franny lopezbold - External BMI 2022-05-20 21:03:00 52.08 kg/m2 Franny lopezbold - External Systolic blood 2022-05-08 12:24:00 130 mm[Hg] Univer sity of pressure [facility] Diastolic blood 2022-05-08 12:24:00 61 mm[Hg] Unive rsity of pressure [place] [facility] Heart rate 2022-05-08 12:24:00 71 /min Universi ty [facility] [place] [facility] Body temperature 2022-05-08 12:24:00 36.78 Madhuri Univ ersity [facility] [place] [facility] Respiratory rate 2022-05-08 12:24:00 15 /min Univ ersity [facility] [place] [facility] Oxygen saturation in 2022-05-08 12:24:00 99 /min University of Arterial blood by [facility] Pulse oximetry Branch Body weight 2022-05-07 01:00:00 130 kg Universi ty [facility] [place] [facility] BMI 2022-05-07 01:00:00 54.15 kg/m2 [facility] [place] [facility] Body height 2022-04-30 07:12:00 154.9 cm Universi ty [facility] [place] [facility] Systolic blood 2022-05-06 12:00:00 133 mm[Hg] Univer sity of pressure [facility] Diastolic blood 2022-05-06 12:00:00 72 mm[Hg] Unive rsity of pressure [place] [facility] Heart rate 2022-05-06 12:00:00 68 /min Universi ty [facility] [place] [facility] Respiratory rate 2022-05-06 12:00:00 13 /min [facility] Oxygen saturation in 2022-05-06 12:00:00 99 /min University of Arterial blood by [facility] Pulse oximetry Branch Body temperature 2022-05-06 09:00:00 36.61 Madhuri [facility] ersity of [place] [facility] Body weight 2022-05-06 01:00:00 128 kg Universi ty [facility] [place] [facility] BMI 2022-05-06 01:00:00 54.15 kg/m2 Universi [facility] [place] [facility] Body height 2022-04-30 07:12:00 154.9 cm Universi ty of [facility] Systolic blood 2022-04-29 03:00:00 169 mm[Hg] Univer sity of pressure [facility] Diastolic blood 2022-04-29 03:00:00 99 mm[Hg] Unive rsity of pressure [facility] Heart rate 2022-04-29 03:00:00 76 /min Universi ty [facility] [place] [facility] Respiratory rate 2022-04-29 03:00:00 20 /min [facility] Oxygen saturation in 2022-04-29 03:00:00 95 /min University of Arterial blood by [facility] Pulse oximetry Branch Body temperature 2022-04-29 00:10:00 36.39 Madhuri [facility] ersity of [facility] Body height 2022-04-29 00:10:00 154.9 cm Universi ty [facility] [place] [facility] Body weight 2022-04-29 00:10:00 127.007 kg [facility]i [facility] [place] [facility] BMI 2022-04-29 00:10:00 52.91 kg/m2 Universi ty [facility] [place] [facility] Systolic blood 2022-04-20 15:52:00 142 mm[Hg] Franny Mi - pressure External Diastolic blood 2022-04-20 15:52:00 88 mm[Hg] Clay Mi - pressure External Heart rate 2022-04-20 15:52:00 88 /min Franny ruiz - External Body temperature 2022-04-20 15:52:00 36.94 Madhuri Gloria Mi - External Respiratory rate 2022-04-20 15:52:00 14 /min Gloria Mi - External Body height 2022-04-20 15:52:00 160 cm Franny ruiz - External Body weight 2022-04-20 15:52:00 133.811 kg Franny lopezbolee - External BMI 2022-04-20 15:52:00 52.26 kg/m2 Franny ruiz - External Oxygen saturation in 2022-04-20 15:52:00 93 /min Franny Mi - Arterial blood by External Pulse oximetry Systolic blood 2022-01-17 18:48:00 128 mm[Hg] Univer sity of pressure [place] [facility] Diastolic blood 2022-01-17 18:48:00 69 mm[Hg] Unive rsity of pressure [place] [facility] Heart rate 2022-01-17 18:48:00 72 /min Universi ty [facility] [place] [facility] Body temperature 2022-01-17 18:48:00 37.17 Madhuri Univ ersity of [place] [facility] Respiratory rate 2022-01-17 18:48:00 18 /min Univ ersity of [place] [facility] Oxygen saturation in 2022-01-17 18:48:00 98 /min University of Arterial blood by [place] [employer] charles Pulse oximetry Branch Body height 2022-01-14 17:49:00 152.4 cm Universi ty [facility] [place] [facility] Body weight 2022-01-14 17:49:00 133.358 kg Universi ty [facility] [place] [facility] BMI 2022-01-14 17:49:00 57.42 kg/m2 Universi ty [facility] [place] [facility] Systolic blood 2021-10-01 17:11:00 124 mm[Hg] Univer sity of pressure [place] [facility] Diastolic blood 2021-10-01 17:11:00 73 mm[Hg] Unive rsity of pressure [place] [facility] Heart rate 2021-10-01 17:11:00 86 /min [facility]i ty [facility] [place] [facility] Body temperature 2021-10-01 17:11:00 36.22 Madhuri Univ ersity of [place] [facility] Respiratory rate 2021-10-01 17:11:00 18 /min Univ ersity [facility] [place] [facility] Oxygen saturation in 2021-10-01 17:11:00 93 /min University of Arterial blood by [employer] charles Pulse oximetry Branch Body weight 2021-10-01 09:03:00 140.978 kg Universi ty [facility] [place] [facility] BMI 2021-10-01 09:03:00 56.85 kg/m2 Universi ty [facility] [place] [facility] Body height 2021-10-01 00:52:00 157.5 cm Universi ty [facility] [place] [facility] Systolic blood 2021-09-09 05:57:00 124 mm[Hg] Univer sity of pressure [place] [facility] Diastolic blood 2021-09-09 05:57:00 65 mm[Hg] Unive rsity of pressure [place] [facility] Heart rate 2021-09-09 05:57:00 89 /min Universi ty [facility] [place] [facility] Respiratory rate 2021-09-09 05:57:00 20 /min Univ ersity of [place] [facility] Oxygen saturation in 2021-09-09 05:57:00 95 /min University of Arterial blood by [facility] charles Pulse oximetry Branch Body temperature 2021-09-09 02:32:00 37.28 Madhuri Univ ersity of [place] [facility] Body weight 2021-09-09 02:32:00 137.893 kg Universi ty [facility] [place] [facility] BMI 2021-09-09 02:32:00 55.60 kg/m2 Universi ty [facility] [place] [facility] Heart rate 2020-07-28 16:41:00 78 /min [facility]i ty [facility] [place] [facility] Respiratory rate 2020-07-28 16:41:00 18 /min Univ ersity of [place] [facility] Oxygen saturation in 2020-07-28 16:41:00 90 /min University of Arterial blood by [facility] Pulse oximetry Branch Systolic blood 2020-07-28 16:38:00 129 mm[Hg] Univer sity of pressure [place] [facility] Diastolic blood 2020-07-28 16:38:00 69 mm[Hg] Unive rsity of pressure [place] [facility] Body temperature 2020-07-28 16:38:00 36.83 Madhuri Univ ersity of [place] [facility] Body height 2020-07-27 10:06:00 157.5 cm Universi ty [facility] [place] [facility] Body weight 2020-07-27 10:06:00 137.939 kg Universi ty [facility] [place] [facility] BMI 2020-07-27 10:06:00 55.62 kg/m2 Universi ty [facility] [place] [facility] Respiratory rate 2020-07-14 16:45:00 20 /min Univ ersity [facility] [place] [facility] Oxygen saturation in 2020-07-14 16:45:00 100 /min [facility] Arterial blood by [facility] Pulse oximetry Branch Systolic blood 2020-07-14 16:10:00 140 mm[Hg] Univer sity of pressure [facility] Diastolic blood 2020-07-14 16:10:00 88 mm[Hg] Unive rsity of pressure [facility] Heart rate 2020-07-14 16:10:00 72 /min Universi ty of [facility] Body temperature 2020-07-14 16:10:00 36.17 Madhuri Univ ersity of [facility] Body weight 2020-07-14 08:35:00 135.489 kg [facility] BP Systolic 2022-02-15 16:32:00 160 mm[Hg] BP [...] 14:00:00 164 mm[Hg] Univer sity of pressure [facility] Diastolic blood 2022-01-16 14:00:00 84 mm[Hg] Unive rsity of pressure [facility] Heart rate 2022-01-16 14:00:00 79 /min [facility] Body temperature 2022-01-16 14:00:00 36.72 Madhuri [facility] Respiratory rate 2022-01-16 14:00:00 21 /min [facility] [place] [facility] Oxygen saturation in 2022-01-16 14:00:00 97 /min University Arterial blood by [facility] Pulse oximetry Ray Body height 2022-01-14 17:49:00 152.4 cm [facility] Body weight 2022-01-14 17:49:00 133.358 kg [facility] BMI 2022-01-14 17:49:00 57.42 kg/m2 [facility] BP Systolic 2021-09-30 13:38:00 172 mm[Hg] [...] Date / Time Performing Clinician Source Performed XR CHEST 1 VW 2022-09-08 05:26:00 Renata Acosta [facility] TROPONIN I 2022-09-08 03:35:00 Renata Acosta [facility] COMP. METABOLIC PANEL 2022-09-08 03:35:00 Renata Acosta [facility] ([id number] CBC WITH DIFF 2022-09-08 03:35:00 Renata Acosta [facility] N-TERMINAL PRO-BNP 2022-09-08 03:35:00 Renata Acosta [facility] NOTICE OF PRIVACY 2022-09-08 02:54:03 Doctor Unassbreann, [facility] PRACTICES [facility] CONSENT/REFUSAL FOR 2022-09-08 02:53:37 Doctor Unajose, [facility] DIAGNOSIS AND TREATMENT [facility] TROPONIN I 2022-08-19 01:16:00 Alan Benjamin [facility] COMP. METABOLIC PANEL 2022-08-19 01:16:00 Alan Benjamin [facility] ([id number]) [facility] CBC WITH DIFF 2022-08-19 01:05:00 Singer [facility] o f [facility] URINALYSIS 2022-08-19 00:06:00 Singer [facility] o f [facility] RAPID INFLUENZA A/B 2022-08-19 00:06:00 Alan Benjamin [facility] COVID-19 (ID NOW RAPID 2022-08-19 00:06:00 Alan Benjamin [facility] TESTING) [facility] CONSENT/REFUSAL FOR 2022-06-03 17:55:19 Doctor [facility]igned [facility] DIAGNOSIS AND TREATMENT Presho [facility] POCT GLUCOSE (AUTOMATED) 2022-05-08 13:00:00 Jordan Grimaldo Uni versity of [facility] POCT GLUCOSE (AUTOMATED) 2022-05-08 01:55:00 Jordan Grimaldo Uni versity of [facility] POCT GLUCOSE (AUTOMATED) 2022-05-08 01:30:00 Jordan Grimaldo Uni versity of [facility] POCT GLUCOSE (AUTOMATED) 2022-05-07 22:10:00 Jordan Grimaldo Uni versity of [facility] POCT GLUCOSE (AUTOMATED) 2022-05-07 17:57:00 Boby, Jordan Uni versity of [facility] POCT GLUCOSE (AUTOMATED) 2022-05-07 17:57:00 Jordan Grimaldo Uni versity of [facility] POCT GLUCOSE (AUTOMATED) 2022-05-07 14:42:00 Jordan Grimaldo Uni versity of [facility] POCT GLUCOSE (AUTOMATED) 2022-05-07 14:42:00 Jordan Grimaldo Uni [facility] CBC WITH DIFF 2022-05-07 09:52:00 Fidel Pozo [facility] CBC WITH DIFF 2022-05-07 09:52:00 Fidel Pozo [facility] CT HEAD WO CONTRAST 2022-05-07 08:55:00 [facility] HEAD WO CONTRAST 2022-05-07 08:55:00 [facility] BASIC METABOLIC PANEL 2022-05-07 08:01:00 Fidel Pozo [facility] (NA, K, CL, CO2, GLUCOSE, [facility] BUN, CREATININE, CA) BASIC METABOLIC PANEL 2022-05-07 08:01:00 [facility] (NA, K, CL, CO2, GLUCOSE, [facility] BUN, CREATININE, CA) TROPONIN I 2022-05-07 03:07:00 Nohelia [facility] TROPONIN I 2022-05-07 03:07:00 Nohelia [facility] POCT GLUCOSE (AUTOMATED) 2022-05-07 01:32:00 Jordan Grimaldo Uni versity of [facility] POCT GLUCOSE (AUTOMATED) 2022-05-07 01:32:00 Jordan Grimaldo Uni versity of [facility] POCT GLUCOSE (AUTOMATED) 2022-05-06 23:04:00 Jordan Grimaldo Uni versity of [facility] POCT GLUCOSE (AUTOMATED) 2022-05-06 23:04:00 Jordan Grimaldo Uni versity of [facility] POCT GLUCOSE (AUTOMATED) 2022-05-06 17:46:00 Jordan Grimaldo Uni versity of [facility] POCT GLUCOSE (AUTOMATED) 2022-05-06 17:46:00 Jordan Grimaldo Uni versity of [facility] CEREBROSPINAL FLUID SHUNT 2022-05-06 12:08:00 Jordan Grimaldo [facility] [place] INSERTION Medical Ray CEREBROSPINAL FLUID SHUNT 2022-05-06 12:08:00 Jordan Grimaldo [facility] [place] INSERTION Medical Branch XR CHEST 1 VW 2022-05-06 10:37:00 Roby Summers [facility] XR CHEST 1 VW 2022-05-06 10:37:00 Roby Summers [facility] TEST, SERUM 2022-05-06 04:30:00 Roby Summers [facility] BASIC METABOLIC PANEL 2022-05-06 04:30:00 Roby Summers [facility] (NA, K, CL, CO2, GLUCOSE, T[facility] Branch BUN, CREATININE, CA) CBC WITH DIFF 2022-05-06 04:30:00 Roby Summers [facility] PROTHROMBIN TIME / INR 2022-05-06 04:30:00 Kristopher [facility] ACTIVATED PARTIAL 2022-05-06 04:30:00 Roby Summers [facility] HB ABO GROUPING 2022-05-06 04:30:00 Roby Summers [facility] TEST, SERUM 2022-05-06 04:30:00 Roby Summers [facility] BASIC METABOLIC PANEL 2022-05-06 04:30:00 Roby Summers [facility] (NA, K, CL, CO2, GLUCOSE, [facility] BUN, CREATININE, CA) CBC WITH DIFF 2022-05-06 04:30:00 Roby Summers [facility] PROTHROMBIN TIME / INR 2022-05-06 04:30:00 Kristopher [facility] ACTIVATED PARTIAL 2022-05-06 04:30:00 Roby Summers [facility] HB ABO GROUPING 2022-05-06 04:30:00 Roby Summers [facility] CT HEAD WO CONTRAST 2022-05-06 03:13:54 Roby Summers [facility] CT HEAD WO CONTRAST 2022-05-06 03:13:54 [facility] 2022-05-06 01:43:00 [facility] POCT GLUCOSE (AUTOMATED) 2022-05-06 01:43:00 Jordan Grimaldo versity of [facility] POCT GLUCOSE (AUTOMATED) 2022-05-05 22:24:00 Jordan Grimaldo versity of [facility] POCT GLUCOSE (AUTOMATED) 2022-05-05 22:24:00 Jordan Grimaldo versity of [facility] POCT GLUCOSE (AUTOMATED) 2022-05-05 17:45:00 Jordan Grimaldo Uni versity of [facility] POCT GLUCOSE (AUTOMATED) 2022-05-05 17:45:00 Jordan Grimaldo Uni versity of [facility] POCT GLUCOSE (AUTOMATED) 2022-05-05 12:42:00 Jordan Grimaldo Uni versity of [facility] POCT GLUCOSE (AUTOMATED) 2022-05-05 12:42:00 Jordan Grimaldo Uni versity of [facility] BASIC METABOLIC PANEL 2022-05-05 09:13:00 NoheliaFidel versity of [place] (NA, K, CL, CO2, GLUCOSE, [facility] BUN, CREATININE, CA) CBC WITH DIFF 2022-05-05 09:13:00 Nohelia Fidel [facility] BASIC METABOLIC PANEL 2022-05-05 09:13:00 Nohelia Fidel [place] versity [facility] [place] (NA, K, CL, CO2, GLUCOSE, [facility] BUN, CREATININE, CA) CBC WITH DIFF 2022-05-05 09:13:00 Pozo Fidel [facility] POCT GLUCOSE (AUTOMATED) 2022-05-04 21:52:00 Jordan Grimaldo Uni versity of [facility] POCT GLUCOSE (AUTOMATED) 2022-05-04 21:52:00 Jordan Grimaldo Uni versity of [facility] MR BRAIN WO CONTRAST 2022-05-04 20:35:00 Donald Laguerre [facility] MR BRAIN WO CONTRAST 2022-05-04 20:35:00 Donald Laguerre [facility] POCT GLUCOSE (AUTOMATED) 2022-05-04 16:44:00 Jordan Grimaldo Uni versity of [facility] POCT GLUCOSE (AUTOMATED) 2022-05-04 16:44:00 Jordan Grimaldo Uni versity of [facility] POCT GLUCOSE (AUTOMATED) 2022-05-04 12:49:00 Jordan Grimaldo Uni versity of [facility] POCT GLUCOSE (AUTOMATED) 2022-05-04 12:49:00 Jordan Grimaldo Uni versity of [facility] BASIC METABOLIC PANEL 2022-05-04 09:39:00 Elton [facility] (NA, K, CL, CO2, GLUCOSE, [facility] BUN, CREATININE, CA) CBC WITHOUT DIFF 2022-05-04 09:39:[address] [facility] BASIC METABOLIC PANEL 2022-05-04 09:39:00 Conde [facility] (NA, K, CL, CO2, GLUCOSE, [facility] BUN, CREATININE, CA) CBC WITHOUT DIFF 2022-05-04 09:39:[address] [facility] POCT GLUCOSE (AUTOMATED) 2022-05-04 01:57:00 Jordan Grimaldo [facility] POCT GLUCOSE (AUTOMATED) 2022-05-04 01:57:00 Jordan Grimaldo [facility] POCT GLUCOSE (AUTOMATED) 2022-05-03 21:11:00 Jordan Grimaldo [facility] POCT GLUCOSE (AUTOMATED) 2022-05-03 21:11:00 Jordan Grimaldo [facility] POCT GLUCOSE (AUTOMATED) 2022-05-03 17:03:00 Jordan Grimaldo [facility] POCT GLUCOSE (AUTOMATED) 2022-05-03 17:03:00 Jordan Grimaldo [facility] POCT GLUCOSE (AUTOMATED) 2022-05-03 12:38:00 Jordan Grimlado [facility] POCT GLUCOSE (AUTOMATED) 2022-05-03 12:38:00 Jordan Grimaldo [facility] vers[facility] BASIC METABOLIC PANEL 2022-05-03 08:52:00 Fidel Pozo [facility] [place] (NA, K, CL, CO2, GLUCOSE, [facility] BUN, CREATININE, CA) CBC WITH DIFF 2022-05-03 08:52:00 [facility]OL[facility] PANEL 2022-05-03 08:52:00 Fidel Pozo [facility] [place] (NA, K, CL, CO2, GLUCOSE, [facility] BUN, CREATININE, CA) CBC WITH DIFF 2022-05-03 08:52:00 i[facility]del [facility] [place] POCT GLUCOSE (AUTOMATED) 2022-05-03 02:53:00 Jordan Grimaldo [facility] POCT GLUCOSE (AUTOMATED) 2022-05-03 02:53:00 Boby, Jordan [facility] POCT GLUCOSE (AUTOMATED) 2022-05-02 22:09:00 Boby, Jordan [facility] POCT GLUCOSE (AUTOMATED) 2022-05-02 22:09:00 Boby, Jordan [facility] POCT GLUCOSE (AUTOMATED) 2022-05-02 17:18:00 Boby, Jordan [facility] POCT GLUCOSE (AUTOMATED) 2022-05-02 17:18:00 Boby, Jordan [facility] POCT GLUCOSE (AUTOMATED) 2022-05-02 13:30:00 Jordan Grimaldo [facility] POCT GLUCOSE (AUTOMATED) 2022-05-02 13:30:00 Jordan Grimaldo [facility] BASIC METABOLIC PANEL 2022-05-02 10:10:00 OgpeetwaraRoby [facility] [place] (NA, K, CL, CO2, GLUCOSE, [facility] BUN, CREATININE, CA) CBC WITH DIFF 2022-05-02 10:10:00 OgRoby hoskins [facility] BAS[facility] METABOLIC PANEL 2022-05-02 10:10:00 OgRoby hoskins [facility] [place] (NA, K, CL, CO2, GLUCOSE, [facility] BUN, CREATININE, CA) CBC WITH DIFF 2022-05-02 10:10:00 OgpetewarRoby love [facility] POCT GLUCOSE (AUTOMATED) 2022-05-02 02:06:00 Jordan Grimaldo [facility] vers[facility] POCT GLUCOSE (AUTOMATED) 2022-05-02 02:06:00 Jordan Grimaldo [facility] POCT GLUCOSE (AUTOMATED) 2022-05-01 21:52:00 Jordan Grimaldo [facility] vers[facility] POCT GLUCOSE (AUTOMATED) 2022-05-01 21:52:00 Jordan Grimaldo Uni vers[facility] POCT GLUCOSE (AUTOMATED) 2022-05-01 16:48:00 Jordan Grimaldo Uni vers[facility] POCT GLUCOSE (AUTOMATED) 2022-05-01 16:48:00 Jordan Grimaldo Uni vers[facility] POCT GLUCOSE (AUTOMATED) 2022-05-01 12:47:00 Jordan Grimaldo Uni vers[facility] POCT GLUCOSE (AUTOMATED) 2022-05-01 12:47:00 Jordan Grimaldo Uni vers[facility] BASIC METABOLIC PANEL 2022-05-01 10:24:00 Roby Summers [facility] [place] (NA, K, CL, CO2, GLUCOSE, [facility] BUN, CREATININE, CA) CBC WITH DIFF 2022-05-01 10:24:00 Roby Summers ity of [facility] BASIC METABOLIC PANEL 2022-05-01 10:24:00 Roby Summers [facility] [place] (NA, K, CL, CO2, GLUCOSE, [facility] BUN, CREATININE, CA) CBC WITH DIFF 2022-05-01 10:24:00 Roby Summers Univers ity of [facility] CT HEAD WO CONTRAST 2022-05-01 04:41:45 Roby Summers versity of [facility] CT HEAD WO CONTRAST 2022-05-01 04:41:45 Roby Summers versity of [facility] POCT GLUCOSE (AUTOMATED) 2022-05-01 00:25:00 Jordan Grimaldo Uni vers[facility] POCT GLUCOSE (AUTOMATED) 2022-05-01 00:25:00 Jordan Grimaldo Uni vers[facility] POCT GLUCOSE (AUTOMATED) 2022-04-30 21:40:00 Jordan Grimaldo [facility] [place] [facility] POCT GLUCOSE (AUTOMATED) 2022-04-30 21:40:00 Jordan Grimaldo Uni vers[facility] POCT GLUCOSE (AUTOMATED) 2022-04-30 17:25:00 Jordan Grimaldo Uni vers[facility] of [facility] POCT GLUCOSE (AUTOMATED) 2022-04-30 17:25:00 Jordan Grimaldo Uni vers[facility] of [facility] MR CERVICAL SPINE WO 2022-04-30 14:45:36 Duong Wyatt [facility] CONTRAST [facility] MR CERVICAL SPINE WO 2022-04-30 14:45:36 Duong Wyatt [facility] CONTRAST [facility] MR BRAIN WO CONTRAST 2022-04-30 14:43:29 Roby Summers Un iversity of [facility] MR BRAIN WO CONTRAST 2022-04-30 14:43:29 OgRoby hoskins Un iversity of [facility] POCT GLUCOSE (AUTOMATED) 2022-04-30 12:56:00 Jordan Grimaldo Uni vers[facility] POCT GLUCOSE (AUTOMATED) 2022-04-30 12:56:00 Jordan Grimaldo [facility] BASIC METABOLIC PANEL 2022-04-30 10:09:00 Roby Summers [facility] [place] (NA, K, CL, CO2, GLUCOSE, [facility] BUN, CREATININE, CA) CBC WITH DIFF 2022-04-30 10:09:00 Roby Summers [facility] BASIC METABOLIC PANEL 2022-04-30 10:09:00 Roby Summers [facility] [place] (NA, K, CL, CO2, GLUCOSE, [facility] BUN, CREATININE, CA) CBC WITH DIFF 2022-04-30 10:09:00 Roby Summers [facility] POCT GLUCOSE (AUTOMATED) 2022-04-30 01:42:00 Shannan Brian Uni versity [facility] POCT GLUCOSE (AUTOMATED) 2022-04-30 01:42:00 Shannan Brian Uni vers[facility] MAGNESIUM 2022-04-29 20:35:00 [facility] BASIC METABOLIC PANEL 2022-04-29 20:35:00 NavarroGaudencio Pisano [facility] [place] (NA, K, CL, CO2, GLUCOSE, Medica l Branch BUN, CREATININE, CA) MAGNESIUM 2022-04-29 20:35:00 Gaudencio Morelos [facility] BASIC METABOLIC PANEL 2022-04-29 20:35:00 Gaudencio Morelos [facility] (NA, K, CL, CO2, GLUCOSE, Medica l Branch BUN, CREATININE, CA) CT HEAD WO CONTRAST 2022-04-29 15:23:00 Duong Wyatt [facility] CT HEAD WO CONTRAST 2022-04-29 15:23:00 Edmundo [facility] EXTRA TUBE URINE CULTURE 2022-04-29 08:11:00 Shannan Brian [facility] URINALYSIS 2022-04-29 08:11:00 Gaudencio Morelos [facility] EXTRA TUBE URINE CULTURE 2022-04-29 08:11:00 Shannan Brian [facility] URINALYSIS 2022-04-29 08:11:00 Gaudencio Morelos [facility] COVID-19 (ID NOW RAPID 2022-04-29 06:21:00 Ramon Alexandra [facility] TESTING) Medical Branch LAB ONLY COVID 2022-04-29 06:21:00 Gaudencio Morelos [facility] TROPONIN I 2022-04-29 06:21:00 Gaudencio Morelos [facility] PROTHROMBIN TIME / INR 2022-04-29 06:21:00 Gaudencio Morelos [facility] ACTIVATED PARTIAL 2022-04-29 06:21:00 Gaudencio Morelos [facility] COVID-19 (ID NOW RAPID 2022-04-29 06:21:00 Ramon Alexandra [facility] TESTING) Medical Branch LAB ONLY COVID 2022-04-29 06:21:00 Gaudencio Morelos [facility] TROPONIN I 2022-04-29 06:21:00 Gaudencio Morelos [facility] PROTHROMBIN TIME / INR 2022-04-29 06:21:00 Gaudencio Morelos [facility] ACTIVATED PARTIAL 2022-04-29 06:21:00 Gaudencio Morelos [facility] TEST 2022-04-29 00:36:00 Alan Benjamin [facility] ty [facility] LIPASE 2022-04-29 00:21:00 Singer [facility] MAGNESIUM 2022-04-29 00:21:00 Singer [facility] TROPONIN I 2022-04-29 00:21:00 Singer [facility] COMP. METABOLIC PANEL 2022-04-29 00:21:00 Singer [facility] ([id number]) [facility] SEDIMENTATION RATE 2022-04-29 00:21:00 Gaudencio Morelos [facility] CBC WITH DIFF 2022-04-29 00:21:00 Singer [facility] GLYCOSYLATED HEMOGLOBIN 2022-04-29 00:21:00 Ramon [facility] N-TERMINAL PRO-BNP 2022-04-29 00:21:00 Alan Benjamin [facility] TEST, SERUM 2022-04-29 00:21:00 Gaudencio Morelos [facility] TEST, SERUM 2022-04-29 00:21:00 Gaudencio Morelos [facility] CONSENT/REFUSAL FOR 2022-04-28 23:54:00 Doctor Shirley [facility] DIAGNOSIS AND TREATMENT [facility] EMERGENCY SERVICES 2022-04-28 05:01:00 Doctor Watson [facility] AGREEMENTS AND [facility] AUTHORIZATIONS EMERGENCY SERVICES 2022-04-28 05:01:00 Doctor Shirley [facility] AGREEMENTS AND [facility] AUTHORIZATIONS MAGNESIUM 2022-01-17 10:09:00 Patrick Zimmermanoja [facility] BASIC METABOLIC PANEL 2022-01-17 10:09:00 Zaynab Zimmerman [facility] (NA, K, CL, CO2, GLUCOSE, Medica l Branch BUN, CREATININE, CA) CBC WITH DIFF 2022-01-17 10:09:00 Zaynab Zimmerman [facility] BASIC METABOLIC PANEL 2022-01-16 14:47:00 [facility] (NA, K, CL, CO2, GLUCOSE, Medica l Branch BUN, CREATININE, CA) BASIC METABOLIC PANEL 2022-01-16 14:47:00 [facility] (NA, K, CL, CO2, GLUCOSE, Medica l Branch BUN, CREATININE, CA) CBC WITH DIFF 2022-01-16 11:23[facility] 2022-01-16 11:23:00 [facility] POCT GLUCOSE (AUTOMATED) 2022-01-15 18:39:00 Jones Phipps [facility] POCT GLUCOSE (AUTOMATED) 2022-01-15 18:39:00 Jones Phipps [facility] CBC WITH DIFF 2022-01-15 11:24:00 [facility] BAS[facility] METABOLIC PANEL 2022-01-15 11:24:00 [facility] (NA, K, CL, CO2, GLUCOSE, Medica l Branch BUN, CREATININE, CA) BASIC METABOLIC PANEL 2022-01-15 11:24:00 [facility] (NA, K, CL, CO2, GLUCOSE, Medica l Branch BUN, CREATININE, CA) CBC WITH DIFF 2022-01-15 11:24:[address] [facility]GIOGRAM HEAD 2022-01-15 03:24:[address] [facility] [address] [facility] 2022-01-15 03:24:59 [facility] SPINAL LUMBAR PUNCTURE 2022-01-14 19:39:00 [facility] IR SPINAL LUMBAR PUNCTURE 2022-01-14 19:39:00 [facility]alil [facility] CEREBROSPINAL FLUID 2022-01-14 18:55:00 Pamela [facility] GLUCOSE Medical Branch CEREBROSPINAL FLUID 2022-01-14 18:55:00 Pamela [facility] PROTEIN [facility] BODY FLUID MANUAL DIFF 2022-01-14 18:55:[address] [facility] CSF CULTURE 2022-01-14 18:55:00 Pamela [facility] CEREBROSPINAL FLUID 2022-01-14 18:55:00 Pamela [facility] PROTEIN [facility] CEREBROSPINAL FLUID 2022-01-14 18:55:00 Pamela [facility] BODY FLUID DIRECT COUNT 2022-01-14 18:55:00 Pamela [facility] CSF/BUSINESS RESILIENCY MANAGER SHUNT CULTURE 2022-01-14 18:55:00 Pamela [facility] CSF CULTURE 2022-01-14 18:55:00 Pamela [facility] CBC WITH DIFF 2022-01-14 11:00:00 Pamela [facility] BASIC METABOLIC PANEL 2022-01-14 11:00:00 Pamela [facility] (NA, K, CL, CO2, GLUCOSE, Medica l Branch BUN, CREATININE, CA) MAGNESIUM 2022-01-14 11:00:00 Pamela [facility] MAGNESIUM 2022-01-14 11:00:00 Pamela [facility] BASIC METABOLIC PANEL 2022-01-14 11:00:00 Pamela [facility] (NA, K, CL, CO2, GLUCOSE, Medica l Branch BUN, CREATININE, CA) CBC WITH DIFF 2022-01-14 11:00:00 Pamela [facility] BASIC METABOLIC PANEL 2022-01-13 12:56:00 [facility] (NA, K, CL, CO2, GLUCOSE, Medica l Branch BUN, CREATININE, CA) MAGNESIUM 2022-01-13 12:56:00 [place], [facility] PHOSPHORUS 2022-01-13 12:56:00 Neo [facility] PHOSPHORUS 2022-01-13 12:56:00 Neo [facility] MAGNESIUM 2022-01-13 12:56:00 Neo [facility] BASIC METABOLIC PANEL 2022-01-13 12:56:00 Neo [facility] (NA, K, CL, CO2, GLUCOSE, Medica l Branch BUN, CREATININE, CA) CBC WITH DIFF 2022-01-13 12:55:00 Neo [facility] CBC WITH DIFF 2022-01-13 12:55:00 Noe [facility] CBC WITH DIFF 2022-01-12 09:55:00 Arnold Laureano [facility] BASIC METABOLIC PANEL 2022-01-12 09:55:00 Arnold Laureano [facility] (NA, K, CL, CO2, GLUCOSE, Medica l Branch BUN, CREATININE, CA) MAGNESIUM 2022-01-12 09:55:00 Arnold Laureano [facility] MAGNESIUM 2022-01-12 09:55:00 Arnold Laureano [facility] BASIC METABOLIC PANEL 2022-01-12 09:55:00 Arnold Laureano [facility] (NA, K, CL, CO2, GLUCOSE, Medica l Branch BUN, CREATININE, CA) CBC WITH DIFF 2022-01-12 09:55:00 Arnold Laureano [facility] MR BRAIN WO CONTRAST 2022-01-11 16:06:17 [facility] MR BRAIN WO CONTRAST 2022-01-11 16:06:17 Arnold [facility] PHOSPHORUS 2022-01-11 10:29:00 Arnold Laureano [facility] COVID-19 (MOLECULAR 2022-01-11 10:29:00 Arnold Laureano [facility] NUCLEIC ACID AMPLIFICATION) LAB ONLY COVID 2022-01-11 10:29:00 Arnold La[facility]ano [facility] INTERPRETATION Medical Branch PHOSPHORUS 2022-01-11 10:29:00 Arnold Laureano [facility] COVID-19 (MOLECULAR 2022-01-11 10:29:00 Arnold Laureano [facility] NUCLEIC ACID AMPLIFICATION) LAB ONLY COVID 2022-01-11 10:29:00 Arnold Laureano [facility] AC PANEL 20 + LACTIC ACID 2022-01-11 05:29:00 [facility] + LACTIC ACID 2022-01-11 05:29:00 Mariusz Deluca [facility] COVID-19 (ID NOW RAPID 2022-01-11 04:23:00 Mariusz Deluca [facility] TESTING) Medical Branch LAB ONLY COVID 2022-01-11 04:23:00 Mariusz Deluca [facility] COVID-19 (ID NOW RAPID 2022-01-11 04:23:00 Mariusz Deluca [facility] TESTING) Medical Branch LAB ONLY COVID 2022-01-11 04:23:[address] [facility] CT CHEST PULMONARY 2022-01-11 03:22:01 Mariusz Deluca [facility] CT ANGIOGRAM HEAD 2022-01-11 03:22:01 Mariusz Deluca [facility] CT ANGIOGRAM NECK 2022-01-11 03:22:01 Yosi [facility] CT ANGIOGRAM HEAD 2022-01-11 03:22:01 Yosi [facility] CT ANGIOGRAM NECK 2022-01-11 03:22:01 Yosi [facility] CT CHEST PULMONARY 2022-01-11 03:22:01 Yosi Mariusz [facility] CT HEAD WO CONTRAST 2022-01-11 03:03:54 Mariusz Deluca [facility] CT HEAD WO CONTRAST 2022-01-11 03:03:54 Mariusz Deluca [facility] ACTIVATED PARTIAL 2022-01-11 02:09:00 Mariusz Deluca [facility] PROTHROMBIN TIME / INR 2022-01-11 02:09:00 Mariusz Deluca [facility] PROTHROMBIN TIME / INR 2022-01-11 02:09:00 Mariusz Deluca [facility] ACTIVATED PARTIAL 2022-01-11 02:09:00 Mariusz Deluca [facility] CBC WITH DIFF 2022-01-11 01:17:00 Mariusz Deluca [facility] COMP. METABOLIC PANEL 2022-01-11 01:17:00 Mariusz Deluca [facility] ([id number] TROPONIN I 2022-01-11 01:17:00 Yosi [facility] N-TERMINAL PRO-BNP 2022-01-11 01:17:00 Mariusz Deluca [facility] LIPASE 2022-01-11 01:17:00 Mariusz Deluca [facility] TEST, SERUM 2022-01-11 01:17:00 Mariusz Deluca [facility] LIPASE 2022-01-11 01:17:00 [facility] 2022-01-11 01:17:00 Yosi [facility] TROPONIN I 2022-01-11 01:17:00 Mariusz Deluca [facility] COMP. METABOLIC PANEL 2022-01-11 01:17:00 Mariusz Deluca [facility] ([id number]) [facility] CBC WITH DIFF 2022-01-11 01:17:00 Mariusz Deluca [facility] N-TERMINAL PRO-BNP 2022-01-11 01:17:00 Mariusz Deluca [facility] XR CHEST 1 VW 2022-01-11 01:08:26 Mariusz Deluca [facility] XR CHEST 1 VW 2022-01-11 01:08:26 Mariusz Deluca [facility] EKG-12 LEAD 2022-01-11 00:56:11 Yosi Mariusz [facility] EKG-12 LEAD 2022-01-11 00:56:11 Mariusz Deluca [facility] NOTICE OF PRIVACY 2022-01-11 00:40:55 Doctor Unassigned, [facility] NOTICE OF PRIVACY 2022-01-11 00:40:55 Doctor Unassigned, [facility] CONSENT/REFUSAL FOR 2022-01-11 00:39:01 Doctor Unassbreann [facility] DIAGNOSIS AND TREATMENT [facility] CONSENT/REFUSAL FOR 2022-01-11 00:39:01 Doctor Unassigned [facility] DIAGNOSIS AND TREATMENT [facility] HOSPITAL ADMISSION 2022-01-10 06:01:00 Doctor Unassbreann, [facility] [place] HOSPITAL ADMISSION 2022-01-10 06:01:00 Doctor Shirley, [facility] [place] POCT GLUCOSE (AUTOMATED) 2021-10-01 16:44:00 Payal Ray [facility] POCT GLUCOSE (AUTOMATED) 2021-10-01 12:29:00 Payal Ray [facility] D-DIMER 2021-10-01 09:41:00 Yasmine Jin [facility] PHOSPHORUS 2021-10-01 09:35:00 Payal Ray [facility] MAGNESIUM 2021-10-01 09:35:00 Flor Payal [facility] BASIC METABOLIC PANEL 2021-10-01 09:35:00 Payal Ray [facility] (NA, K, CL, CO2, GLUCOSE, Medica l Branch BUN, CREATININE, CA) CBC WITH DIFF 2021-10-01 09:35:00 Flor [facility] POCT GLUCOSE (AUTOMATED) 2021-10-01 09:00:00 Payal Ray [facility] POCT GLUCOSE (AUTOMATED) 2021-10-01 02:34:00 Payal Ray [facility] ACUTE CARE ARTERIAL BLOOD 2021-09-30 22:39:00 [facility] XR CHEST 1 VW 2021-09-30 21:13:57 Jeanna Warner [facility] COVID-19 (ID NOW RAPID 2021-09-30 21:01:00 Jeanna Warner [facility] TESTING) Medical Branch HB ECG ROUTINE & RHYTHM 2021-09-30 20:58:15 Jeanna Warner [facility] STRIP Medical Branch TROPONIN I 2021-09-30 20:48:00 Jeanna Warner [facility] COMP. METABOLIC PANEL 2021-09-30 20:48:00 Jeanna Warner [facility] ([id number]) Medical Branch CBC WITH DIFF 2021-09-30 20:48:00 Jeanna Warner [facility] GLYCOSYLATED HEMOGLOBIN 2021-09-30 20:48:00 Mayte Addison [facility] (A1C) Medical Branch N-TERMINAL PRO-BNP 2021-09-30 20:48:00 Jeanna Warner [facility] CONSENT/REFUSAL FOR 2021-09-30 20:16:40 Doctor Shirley, [facility] DIAGNOSIS AND TREATMENT [facility] XR CHEST 1 VW 2021-09-09 03:28:06 Renata Acosta [facility] LIPASE 2021-09-09 02:40:00 Dave [facility] TROPONIN I 2021-09-09 02:40:00 Renata Acosta [facility] COMP. METABOLIC PANEL 2021-09-09 02:40:00 Renata Acosta [facility] ([id number]) Medical Branch CBC WITH DIFF 2021-09-09 02:40:00 Renata Acosta [facility] NOTICE OF PRIVACY 2021-09-09 02:24:29 Doctor Shirley [facility] PRACTICES [facility] CONSENT/REFUSAL FOR 2021-09-09 02:24:02 Doctor Shirley [facility] DIAGNOSIS AND TREATMENT [facility] [id number] Ekg W/ At Least 12 2021-08-18 00:00:00 Leads W/ I r Ekg 2020-10-09 00:00:00 Ekg 2020-09-17 00:00:00 CT ANGIOGRAM CHEST 2020-07-27 15:16:47 Vitaliy Eason [facility] XR CHEST 1 VW 2020-07-27 06:14:17 Tamika Vieira [facility] COVID-19 (ID NOW RAPID 2020-07-27 06:10:[address] [facility] TESTING) Medical Branch LAB ONLY COVID 2020-07-27 06:10:00 Tamika Vieira [facility] INTERPRETATION [facility] TROPONIN I 2020-07-27 06:06:00 Tamika Vieira [facility] HEPATIC FUNCTION PANEL 2020-07-27 06:06:[address] [facility] ([id number]) (ALB,T.PRO,BILI Medical Branch T,BU/BC,ALT,AST,ALK PHOS) BASIC METABOLIC PANEL 2020-07-27 06:06:00 Tamika Vieira [facility] (NA, K, CL, CO2, GLUCOSE, Medica l Branch BUN, CREATININE, CA) CBC WITH DIFF 2020-07-27 06:06:00 Tamika Vieira [facility] NOTICE OF PRIVACY 2020-07-27 06:01:19 Doctor Unassigned, [facility] PRACTICES [facility] CONSENT/REFUSAL FOR 2020-07-27 05:59:48 Doctor Unassigned, [facility] DIAGNOSIS AND TREATMENT [facility] POCT GLUCOSE (AUTOMATED) 2020-07-14 12:43:00 Miguel Mendoza [facility] POCT GLUCOSE (AUTOMATED) 2020-07-14 01:36:00 Miguel Mendoza [facility] COMP. METABOLIC PANEL 2020-07-12 09:39:00 Carolynn Lopez [facility] ([id number]) Medical Branch CBC WITH DIFF 2020-07-12 09:39:00 Mayte Addison [place] [facility] CT THORAX WO CONTRAST 2020-07-11 18:13:55 Mayte Addison [facility] COMP. METABOLIC PANEL 2020-07-11 09:37:00 Misael rajinder [facility] ([id number]) [facility] N-TERMINAL PRO-BNP 2020-07-11 09:37:00 Misael rajinder [facility] FREE T3 2020-07-11 09:37:00 Mayte Addison [facility] SPUTUM CULTURE 2020-07-10 12:15:00 Misael [facility] PNEUMOCOCCAL ANTIGEN 2020-07-10 12:13:00 Mayte Addison [facility] SEDIMENTATION RATE 2020-07-10 09:29:00 Misael [facility] MAGNESIUM 2020-07-10 09:28:00 Misael [facility] TROPONIN I 2020-07-10 09:28:00 Misael [facility] COMP. METABOLIC PANEL 2020-07-10 09:28:00 Misael rajinder [facility] ([id number]) [facility] CBC WITH DIFF 2020-07-10 09:28:00 Misael [facility] N-TERMINAL PRO-BNP 2020-07-10 09:28:00 Misael [facility] MYCOPLASMA PNEUMONIAE 2020-07-09 22:49:00 Mayte Addison [facility] ANTIBODY, IGM [facility] TRANSTHORACIC ECHO (TTE) 2020-07-09 20:36:58 Jaden Medina [facility] ADC,CLC OR LCC ONLY - 2020-07-09 19:51:00 Erika Falcon [facility] INFLUENZA A & B DIRECT [facility] ANTIGEN TROPONIN I 2020-07-09 19:34:00 Misael [facility] RESPIRATORY PANEL BY PCR 2020-07-09 19:30:00 Carolynn Lopez [facility] URINALYSIS 2020-07-09 10:50:00 Misael [facility] LEGIONELLA URINARY 2020-07-09 10:50:00 Mayte Addison [facility] ANTIGEN [facility] URINE CULTURE 2020-07-09 10:50:00 Carolynn Lopez [facility] UREA NITROGEN, URINE 2020-07-09 10:50:00 Carolynn Lopez [facility] SODIUM, URINE RANDOM 2020-07-09 10:50:00 Misael rajinder [facility] PROTEIN CREAT RATIO URINE 2020-07-09 10:50:00 Carolynn Lopez [facility] PHOSPHORUS 2020-07-09 09:41:00 Carolynn Lopez [facility] CREATINE KINASE 2020-07-09 09:41:00 Misael [facility] TROPONIN I 2020-07-09 09:41:00 Misael rajinder [facility] FREE T4 2020-07-09 09:41:00 Wallace [facility] THYROID STIMULATING 2020-07-09 09:41:00 Carolynn Lopez [facility] HORMONE [facility] LIPID PANEL (95489)(TOTAL 2020-07-09 09:41:[address] [facility] CHOLESTEROL, [facility] TRIGLYCERIDES, HDL) PROTHROMBIN TIME / INR 2020-07-09 09:41:00 Carolynn Lopez [facility] N-TERMINAL PRO-BNP 2020-07-09 09:41:00 Carolynn Lopez [facility] PROCALCITONIN 2020-07-09 09:41:00 Carolynn Lopez [facility] HB ECG ROUTINE & RHYTHM 2020-07-09 09:28:10 Carolynn Lopez [facility] STRIP [facility] MAGNESIUM 2020-07-09 06:49:00 Miguel Mendoza [facility] COMP. METABOLIC PANEL 2020-07-09 06:49:00 Miguel Mendoza [facility] ([address]) [facility] BLOOD CULTURE SCREEN 2020-07-09 06:32:00 Miguel Mendoza [facility] BLOOD CULTURE SCREEN 2020-07-09 06:31:00 Miguel Mendoza [facility] CRITICAL CARE 2020-07-09 06:04:00 Miguel Mendoza [facility] XR CHEST 1 VW 2020-07-09 05:51:20 Miguel Mendoza [facility] CBC WITH DIFF 2020-07-09 05:51:00 Miguel Mendoza [facility] GLYCOSYLATED HEMOGLOBIN 2020-07-09 05:51:00 Carolynn Lopez [facility] (A1C) Medical Branch COVID-19 (ID NOW RAPID 2020-07-09 05:51:00 Miguel Mendoza [facility] TESTING) Medical Branch LAB ONLY COVID 2020-07-09 05:51:00 Miguel [facility]za [facility] INTERPRETATION [facility] [address] Ecg Routine Ecg 2016-05-05 00:00:00 W/least 12 Lds W/i r Plan of Care Planned Activity Planned Date Details Comments Source Goal Plan of Care Note [code = 19325-9] Goal Plan of Care Note [code = 78775-5] Goal Plan of Care Note [code = 13629-1] Goal Plan of Care Note [code = 81727-3] Goal Plan of Care Note [code = 13439-8] Goal Plan of Care Note [code = 31524-4] Goal Plan of Care Note [code = 30540-7] Goal Plan of Care Note [code = 66515-2] Goal Plan of Care Note [code = 19675-4] Goal Plan of Care Note [code = 94711-0] Goal Plan of Care Note [code = 46103-1] Goal Plan of Care Note [code = 26507-9] Goal Plan of Care Note [code = 43006-8] Goal Plan of Care Note [code = 93576-9] Goal Plan of Care Note [code = 60368-8] Goal Plan of Care Note [code = 86647-3] Goal Plan of Care Note [code = 41501-0] Goal Plan of Care Note [code = 48238-7] Goal Plan of Care Note [code = 41533-1] Goal Plan of Care Note [code = 88702-1] Goal Plan of Care Note [code = 66407-5] Goal Plan of Care Note [code = 16452-3] Goal Plan of Care Note [code = 31971-2] Goal Plan of Care Note [code = 43452-5] Goal Plan of Care Note [code = 28363-3] Goal Plan of Care Note [code = 22816-4] Goal Plan of Care Note [code = 17887-2] Goal Plan of Care Note [code = 73165-1] Goal Plan of Care Note [code = 25982-1] Goal Plan of Care Note [code = 65878-0] Goal Plan of Care Note [code = 64096-7] Goal Plan of Care Note [code = 13152-0] Goal Plan of Care Note [code = 44410-0] Goal Plan of Care Note [code = 99289-7] Goal Plan of Care Note [code = 25716-5] Goal Plan of Care Note [code = 76689-6] Goal Plan of Care Note [code = 20288-9] Goal Plan of Care Note [code = 91086-2] Goal Plan of Care Note [code = 67972-8] Goal Plan of Care Note [code = 75414-2] Goal Plan of Care Note [code = 21891-9] Goal Plan of Care Note [code = 55265-5] Goal Plan of Care Note [code = 52732-7] Goal Plan of Care Note [code = 15812-7] Goal Plan of Care Note [code = 44212-8] Goal Plan of Care Note [code = 09182-1] Goal Plan of Care Note [code = 14719-0] Goal Plan of Care Note [code = 97745-1] Goal Plan of Care Note [code = 91367-4] Goal Plan of Care Note [code = 14078-7] Goal Plan of Care Note [code = 39458-4] Goal Plan of Care Note [code = 51125-1] Goal Plan of Care Note [code = 01510-2] Goal Plan of Care Note [code = 75618-0] Goal Plan of Care Note [code = 49982-9] Goal Plan of Care Note [code = 20748-1] Goal Plan of Care Note [code = 43714-5] Goal Plan of Care Note [code = 00334-7] Goal Plan of Care Note [code = 16599-1] Goal Plan of Care Note [code = 81807-8] Goal Plan of Care Note [code = 37163-6] Goal Plan of Care Note [code = 17956-3] Goal Plan of Care Note [code = 39376-8] Goal Plan of Care Note [code = 91826-2] Goal Plan of Care Note [code = 46044-3] Goal Plan of Care Note [code = 98012-5] Goal Plan of Care Note [code = 36424-9] Goal Plan of Care Note [code = 70841-1] Goal Plan of Care Note [code = 34680-8] Goal Plan of Care Note [code = 79391-9] Goal Plan of Care Note [code = 57331-5] Goal Plan of Care Note [code = 31501-4] Goal Plan of Care Note [code = 95509-1] Goal Plan of Care Note [code = 66546-5] Goal Plan of Care Note [code = 91345-0] Goal Plan of Care Note [code = 23817-5] Goal Plan of Care Note [code = 50932-5] Goal Plan of Care Note [code = 66635-1] Goal Plan of Care Note [code = 69215-0] Goal Plan of Care Note [code = 85363-2] Goal Plan of Care Note [code = 11850-9] Goal Plan of Care Note [code = 89252-4] Goal Plan of Care Note [code = 07545-1] Goal Plan of Care Note [code = 15221-7] Goal Plan of Care Note [code = 90987-8] Goal Plan of Care Note [code = 21655-9] Goal Plan of Care Note [code = 66763-8] Goal Plan of Care Note [code = 05751-2] Goal Plan of Care Note [code = 78910-7] Goal Plan of Care Note [code = 09171-3] Goal Plan of Care Note [code = 17896-7] Goal Plan of Care Note [code = 79817-8] Goal Plan of Care Note [code = 48821-5] Goal Plan of Care Note [code = 83481-8] Goal Plan of Care Note [code = 65523-2] Goal Plan of Care Note [code = 25019-9] Goal Plan of Care Note [code = 71488-9] Goal Plan of Care Note [code = 32236-2] Goal Plan of Care Note [code = 41304-9] Goal Plan of Care Note [code = 78693-6] Goal Plan of Care Note [code = 13081-7] Goal Plan of Care Note [code = 35113-3] Goal Plan of Care Note [code = 71932-9] Goal Plan of Care Note [code = 98078-9] Goal Plan of Care Note [code = 66734-1] Goal Plan of Care Note [code = 98741-3] Goal Plan of Care Note [code = 28380-5] Goal Plan of Care Note [code = 46935-4] Goal Plan of Care Note [code = 32844-2] Goal Plan of Care Note [code = 77668-8] Goal Plan of Care Note [code = 92162-6] Goal Plan of Care Note [code = 01658-9] Goal Plan of Care Note [code = 61201-1] Goal Plan of Care Note [code = 03342-7] Goal Plan of Care Note [code = 61913-6] Goal Plan of Care Note [code = 55596-7] Goal Plan of Care Note [code = 30345-4] Goal Plan of Care Note [code = 70007-8] Goal Plan of Care Note [code = 45883-8] Goal Plan of Care Note [code = 49657-8] Goal Plan of Care Note [code = 64190-3] Goal Plan of Care Note [code = 57039-6] Goal Plan of Care Note [code = 69752-8] Goal Plan of Care Note [code = 28870-4] Goal Plan of Care Note [code = 93624-8] Goal Plan of Care Note [code = 96221-0] Goal Plan of Care Note [code = 09986-8] Goal Plan of Care Note [code = 27460-4] Goal Plan of Care Note [code = 27769-9] Goal Plan of Care Note [code = 85156-0] Goal Plan of Care Note [code = 05235-2] Goal Plan of Care Note [code = 34353-6] Goal Plan of Care Note [code = 75095-4] Goal Plan of Care Note [code = 51552-5] Goal Plan of Care Note [code = 85793-8] Goal Plan of Care Note [code = 18899-5] Goal Plan of Care Note [code = 75296-2] Goal Plan of Care Note [code = 57266-2] Goal Plan of Care Note [code = 97463-2] Goal Plan of Care Note [code = 62853-0] Goal Plan of Care Note [code = 58090-6] Goal Plan of Care Note [code = 10504-3] Goal Plan of Care Note [code = 64823-6] Encounters Start End Encounter Admission Attending Care Care Encounter Source Date/Time Date/Time Type Type Clinicians Facility Department ID 2022-10-14 2022-10-14 Outpatient FRANNY HEARN [id number] Franny 10:00:00 10:00:00 GRICELDA waite 2022-09-13 2022-09-13 Outpatient FRANNY COFFEY [id number] Franny 15:15:00 15:15:00 JERICHO waite 2022-09-07 2022-09-08 Emergency X TREVOR MENDOZA ERT [id number] Univers 22:08:00 01:57:00 [facility]22-09-07 2022-09-08 Emergency Renata Acosta [facility] 1.2.8 40.114 [id number] Univers 22:08:00 01:57:00 Miguel Mendoza 350.1.13.10 [facility] 4.2.7.2.686 [facility] [phone] [address] 2022-09-02 2022-09-02 Outpatient JORDAN ROSENBAUM [facility] [id number] Univers 11:40:00 11:40:00 JORDAN GRIMALDO [facility] 2022-08-24 2022-08-24 Outpatient FRANNY COFFEY [id number] Franny 00:00:00 00:00:00 JERICHO waite 2022-08-18 2022-08-18 Emergency Stone BENJAMIN NVALETA ERT [id number] Univers 17:38:00 21:26:00 ALAN mina [facility] 2022-08-18 2022-08-18 Emergency Singer [facility] 1.2.578.983 [id number] Univers 17:38:00 21:26:00 Alan PERES 350.1.13.10 i ty of [place] 4.2.7.2.686 [facility] [id number] [facility] 084 Branch 2022-08-17 2022-08-17 Outpatient FRANNY COFFEY [id number] Franny 00:00:00 00:00:00 JERICHO Seybol d 2022-08-15 2022-08-15 Outpatient LAB90 FRANNY OLIVER [id number] Franny 09:15:00 09:15:00 Seybol d 2022-08-15 2022-08-15 Outpatient FRANNY COFFEY [id number] Franny 08:45:00 08:45:00 JERICHO Seybol d 2022-08-14 2022-08-14 Outpatient FRANNY COFFEY [id number] Franny 00:00:00 00:00:00 JERICHO Seybol d 2022-08-01 2022-08-01 Outpatient FRANNY COFFEY [id number] Franny 00:00:00 00:00:00 JERICHO Seybol d 2022-07-01 2022-07-01 Outpatient LAYOZAFRANNY Lloyd [id number] Franny 00:00:00 00:00:00 JERICHO Seybol d 2022-06-22 2022-06-22 Outpatient FRANNY CLAYTON [id number] Franny 15:45:00 15:45:00 STEPHANIE Conte 2022-06-03 2022-06-03 Office EILEEN Grimaldo 1.2.747.719 [id number] Univers 13:00:00 13:20:00 Visit Jordan MCRAE 350.1.13.[address] [facility] 4.2.7.2.686 [facility] [phone] [facility] 196 Branch 2022-06-03 2022-06-03 Outpatient JORDAN ROSENBAUM [facility] [id number] Univers 13:00:00 13:00:00 JORDAN GRIMALDO of [facility] 2022-06-03 2022-06-03 Orders Doctor VALDES 1.2.840.114 [id number] Univers 00:00:00 00:00:00 Only Unassigned, ZEYNEP 350.1.13.10 ity of [place] [facility] 4.2.7.2.686 Kike as [phone] [facility] 009 Branch 2022-05-31 2022-05-31 Outpatient PREZAPrema, FRANNY OLIVER [id number] Franny 10:00:00 10:00:00 JERICHO Seybol d 2022-05-30 2022-05-30 Outpatient PREZAS, FRANNY OLIVER [id number] Franny 00:00:00 00:00:00 JERICHO Seybol d 2022-05-20 2022-05-20 Outpatient PREZAS, FRANNY OLIVER [id number] Franny 16:15:00 16:15:00 JERICHO Seybol d 2022-05-10 2022-05-10 Transition KARIN Campos 1.2.840.114 [id number] Univers 00:00:00 00:00:00 of Care Rufina MCGREGOR 350.1.13.10 [place] [id number] [facility] 403 Branch 2022-05-09 2022-05-09 Telephone Leila [facility] 1.2.413.105 [id number] [facility] 00:00:00 00:00:00 THOR Junior 350.1.13.10 i ty of [place] [id number] [facility][note 3] 196 Branch OFFICE BUILDING 2022-04-28 2022-05-08 Inpatient X JORDAN GRIMALDO [facility] SNS 1 [id number] Univers 23:45:00 16:28:00 JORDAN GRIMALDO of [facility] 2022-04-28 2022-05-08 [facility] Snehal Shannan MARS 1.2.840.114 [id number] Univers 23:45:00 16:28:00 Encounter Jordan Grimaldo 350.1.13.10 ity of [facility] 4.2.7.2.686 Kike as [phone] [facility] 098 Branch 2022-05-08 2022-05-08 Telephone TREVOR Grimaldo 1.2.933.912 [id number] Univers 00:00:00 00:00:00 Jordan MCRAE 350.1.13.10 it y of [place] 4.2.7.2.686 [facility] [phone] [facility][note 3] 196 [address] OFFICE BUILDING 2022-05-06 2022-05-06 Surgery MARS Grimaldo 1.2.840.114 [id number] Univers 06:55:00 10:24:00 Jordan ADHIKARI 350.1.13.10 it y of HOSPITAL 4.2.7.2.686 Kike [id number] [facility] 103 Branch 2022-05-05 2022-05-05 Outpatient PREFRANNY DILLON [id number] Franny 08:00:00 08:00:00 JERICHO Hartleyybol ravindra 2022-04-29 2022-04-29 Outpatient NOCFRANNY Koch [id number] Franny 00:00:00 00:00:00 SAVANNA howard 2022-04-28 2022-04-28 Emergency X [facility] ERT [id number] Univers 18:58:00 22:43:00 ALAN mina of [facility] 2022-04-28 2022-04-28 Emergency [facility] 1.2.002.103 [id number] Univers 18:58:00 22:43:00 Alan BYRNEGISELA 350.1.13.10 i ty of [place] 4.2.7.2.686 [facility] [id number] [facility] 084 Branch 2022-04-27 2022-04-27 Outpatient TOMOGRAPHYFRANNY [id number] Franny 16:05:00 16:05:00 CK Seybol d 2022-04-27 2022-04-27 Outpatient NOCFRANNY Koch [id number] Franny 15:40:00 15:40:00 SAVANNA Seybo lee 2022-04-22 2022-04-22 Outpatient PREZAFRANNY Lloyd [id number] Franny 00:00:00 00:00:00 JERICHO Seybol d 2022-04-21 2022-04-21 Outpatient LAB90 FRANNY OLIVER [id number] Franny 08:25:00 08:25:00 Seybol d 2022-04-20 2022-04-20 Outpatient LAYOFRANNY DILLON FRANNY [id number] Franny 09:30:00 09:30:00 JERICHO Seybol d 2022-03-30 2022-03-30 Outpatient FRANNY GUEVARA FRANNY [id number] Franny 09:00:00 09:00:00 BARRY Seybol d 2022-02-15 2022-02-15 Outpatient SFA SFA [id number] Tr 16:07:21 16:07:21 0103 F Jimmie 2022-02-15 2022-02-15 Outpatient [id number] [id number] 00:00:00 00:00:00 Visit 2r08-61eo j98-27xu-s -l706-z63 275-c95d0a j4qe1s893 s8e107 2022-02-01 2022-02-01 Outpatient SFA SFA [id number] [place] 17:18:26 17:18:26 1220 F Jimmie 2022-02-01 2022-02-01 Outpatient [id number] 00:00:00 00:00:00 Visit 4541-4c26 541-4c26-a -z457-925 160-949e17 f20519w5p 928d7f 2022-01-21 2022-01-21 Outpatient SFA SFA [id number] [place] 17:20:09 17:20:09 1209 F Jimmie 2022-01-21 2022-01-21 Outpatient [id number] 00:00:00 00:00:00 Visit 3705-4f8b 705-4f8b-b -bdee-81d darryl-81df38 r673af6f2 4ca4f7 2022-01-18 2022-01-18 Transition KARIN Gilliam 1.2.840.114 [id number] Univers 00:00:00 00:00:00 of Care Magda MCGREGOR 350.1.13.10 [id number] [address] 2022-01-10 2022-01-17 Inpatient U MOISE [facility] [id number] Univers 18:51:00 16:55:00 JONES ity of [facility] 2022-01-10 2022-01-17 [facility] Mariusz Deluca 1.2.840.1 14 [id number] Univers 18:51:00 16:55:00 Encounter Arnold Laureano 350.1.13.[address] [facility] 4.2.7.2.686 [place] Jones Phipps [phone] Medical William, Tracie 099 B malvin 2022-01-12 2022-01-12 Travel 1.2.840.1 1.2.273.161 [id number] Univers 00:00:00 00:00:00 13383.1.1 350.1.13.10 ity of 3[place].2[place]3.7[place]27 084.8 Medica l .8 Ray 2022-01-10 2022-01-10 Outpatient X GEORGI [facility] [id number] Univers 18:51:00 18:51:00 ARNOLD damon [facility] 2022-01-10 2022-01-10 Travel 1.2.840.1 1.2.128.091 [id number] Univers 00:00:00 00:00:00 68976.1.1 350.1.13.10 ity of 3[place].2[place]3.816900 084.8 Medica l .8 Ray 2021-12-14 2021-12-14 Outpatient SFA SFA [id number] Tr 16:02:46 16:02:46 1101 F Jimmie 2021-09-30 2021-10-01 Emergency Jeanna Warner [facility] 1.2.840.1 14 [id number] Univers 15:27:00 16:00:00 Payal Ray 350.1.13.10 [place] [id number] [facility] 081 Branch 2021-09-30 2021-10-01 Outpatient X FLOR [facility] [place] [id number] Univers 15:27:00 16:00:00 [facility] 2021-09-23 2021-09-23 Outpatient [id number] 0d [id number] 00:00:00 00:00:00 Visit 27d5-7l27 8l0-8d29-j -ql44-74i q29-02q794 [id number] 18e56c 2021-09-08 2021-09-09 Emergency [facility] [id number] Univers 21:26:00 01:05:00 RENATA [facility] 2021-09-08 2021-09-09 [facility] 1.2.840.114 [id number] Univers 21:26:00 01:05:00 Renata PERES 350.1.13.10 i ty of [place] 4.2.7.2.686 [facility] [id number] [facility] 084 Branch 2021-08-18 2021-08-18 Outpatient [id number] 596ffc-c 00:00:00 00:00:00 Visit s5fe-67e6 1bb-45a6-a -abd4-751 bd4-041976 [id number] [id number] 2020-07-29 2020-07-29 Transition Karin Gilliam 1.2.840.114 [id number] Univers 00:00:00 00:00:00 of Care Magda Moody 350.1.13.10 [place] [id number] [facility] 403 Branch 2020-07-27 2020-07-28 Hospital Tamika Vieira [facility] 1.2.84 0.114 [id number] Univers 00:57:00 14:59:00 Encounter Jenaro [facility] 350.1.13.10 [place] [id number] [facility] 110 Branch (CLC) 2020-07-27 2020-07-27 Emergency X ISHA [facility] ERT [id number] Univers 00:57:00 00:57:00 TAMIKA [facility] 2020-07-16 2020-07-16 Transition Karin Gilliam 1.2.840.114 [id number] Univers 00:00:00 00:00:00 of Care [facility]1.13.10 [facility] 4.2.7.2.686 [facility] [id number] [facility] 403 Branch 2020-07-09 2020-07-14 Inpatient X DAYANNA [facility] [place] [id number] Univers 00:23:00 12:00:00 MIGUEL [facility] 2020-07-09 2020-07-14 [facility] Miguel Mendoza [facility] 1.2.840. 114 [id number] Univers 00:23:00 12:00:00 Encounter [facility].13.10 [facility] [place] 4.2.7.2.686 [facility] [id number] [facility] 081 Branch Results Test Description Test Time Test Comments Results Result Comments Source TROPONIN I 2022-09-08 04:23:31 Test Item Value Reference Range Interpretation Comme nts TROPONIN I (test code = 0759875474) 0.002 ng/mL <=0.034 MARIPOSA (test code = MARIPOSA) Reference (Normal) [...] patient's use of biotin. Lab Interpretation (test code = Normal 10478-7) [facility] [id number] 04:23:11 Test Item Value Reference Range Interpretation Comments NT-proBNP (test code = 96521-7) <=125 Lab Interpretation (test code = Normal 26368-2) [facility]. METABOLIC PANEL (42225)2022-09-08 04:03:34 Test Item Value Reference Range Interpretation Comments NA (test code = 140 mmol/L 135-145 1212154661) K (test code = 4.3 mmol/L 3.5-5.0 9111656024) CL (test code = 101 mmol/L 98-108 9809204556) CO2 TOTAL (test code = 31 mmol/L 23-31 1302459232) AGAP (test code = 8 2-16 9838136004) BUN (test code = 13 mg/dL 7-23 3076229305) GLUCOSE (test code = 151 mg/dL 70-110 H 9194933200) CREATININE (test code = 0.48 mg/dL 0.50-1.04 L 3808222776) TOTAL BILI (test code = 0.4 mg/dL 0.1-1.5 0137086744) CALCIUM (test code = 9.1 mg/dL 8.6-10.6 5483110843) T PROTEIN (test code = 8.3 g/dL 6.3-8.2 H 4506713182) ALBUMIN (test code = 4.2 g/dL 3.5-5.0 1521302836) ALK PHOS (test code = 129 U/L 34-122 H 0323492360) ALTv (test code = 19 U/L 5-35 1742-6) AST(SGOT) (test code = 19 U/L 13-40 6776520921) eGFR (test code = 140.5 mL/min/1.73m2 4501324200) MARIPOSA (test code = MARIPOSA) Association of [...] tests). Lab Interpretation Abnormal (test code = 52971-7) [facility] WITH [id number] 03:52:32 Test Item Value Reference Range Interpretation Comments WBC (test code = 7.93 See_Comment [Automated 2209-2) message] The sy stem which generated this result transmitted reference range : 4.30 - 11.10 10*3/?L. The reference range was not used to interpret this result as normal/abnormal . RBC (test code = 4.69 See_Comment [Automated 969-8) message] The sy stem which generated this result transmitted reference range : 3.93 - 5.25 10*6/?L. The reference range was not used to interpret this result as normal/abnormal . HGB (test code = 12.6 g/dL 11.6-15.0 718-7) HCT (test code = 40.0 % 35.7-45.2 4544-3) MCV (test code = 85.3 fL 80.6-95.5 787-2) MCH (test code = 26.9 pg 25.9-32.8 785-6) MCHC (test code = 31.5 g/dL 31.6-35.1 L 786-4) RDW-SD (test code = 45.6 fL 39.0-49.9 09122-1) RDW-CV (test code = 14.8 % 12.0-15.5 788-0) PLT (test code = 218 See_Comment [Automated 777-3) message] The sy stem which generated this result transmitted reference range : 166 - 358 10*3/ ?L. The reference r palmira was not used to interpret this result as normal/abnormal . MPV (test code = 10.8 fL 9.5-12.9 19401-7) NRBC/100 WBC (test 0.0 See_Comment [Automat ed code = 7336241350) message] The system which generated this result transmitted reference range : 0.0 - 10.0 /100 WBCs. The refer ence range was not u sed to interpret th is result as normal/abnormal . NRBC x10^3 (test code See_Comment [Auto mated = [id number]) message] The s ystem which generated this result transmitted reference range : 10*3/?L. The reference range was not used to interpret this result as normal/abnormal . GRAN MAT (NEUT) % 62.3 % (test code = 770-8) IMM GRAN % (test code 0.50 % = 1223343297) LYMPH % (test code = 23.8 % 736-9) MONO % (test code = 5.3 % 5905-5) EOS % (test code = 7.7 % 713-8) BASO % (test code = 0.4 % 706-2) GRAN MAT x10^3(ANC) 4.94 10*3/uL 1.88-7.09 (test code = 9321032189) IMM GRAN x10^3 (test 0.04 10*3/uL 0.00-0.06 code = [id number]) LYMPH x10^3 (test code 1.89 10*3/uL 1.32-3.29 = 731-0) MONO x10^3 (test code 0.42 10*3/uL 0.33-0.92 = 742-7) EOS x10^3 (test code = 0.61 10*3/uL 0.03-0.39 H 711-2) BASO x10^3 (test code 0.03 10*3/uL 0.01-0.07 = 704-7) Lab Interpretation Abnormal (test code = 09143-7) [facility] GLUCOSE (AUTOMATED)2022-05-08 13:06:38 Test Item Value Reference Range Interpretation Comments POCT GLU (test code = [id number]) 103 mg/dL 70-110 Lab Interpretation (test code = Normal 60777-0) [facility] GLUCOSE (AUTOMATED)2022-05-08 01:55:52 Test Item Value Reference Range Interpretation Comments POCT GLU (test code = 8212268022) 157 mg/dL 70-110 H Lab Interpretation (test code = Abnormal 41926-9) [facility] GLUCOSE (AUTOMATED)2022-05-08 01:34:46 Test Item Value Reference Range Interpretation Comments POCT GLU (test code = 3980915289) 129 mg/dL 70-110 H Lab Interpretation (test code = Abnormal 23988-5) [facility] GLUCOSE (AUTOMATED)2022-05-07 22:11:48 Test Item Value Reference Range Interpretation Comments POCT GLU (test code = 8982454235) 165 mg/dL 70-110 H Lab Interpretation (test code = Abnormal 09406-4) [facility] GLUCOSE (AUTOMATED)2022-05-07 17:58:28 Test Item Value Reference Range Interpretation Comments POCT GLU (test code = 4894353854) 132 mg/dL 70-110 H Lab Interpretation (test code = Abnormal 28239-4) [facility] GLUCOSE (AUTOMATED)2022-05-07 17:58:28 Test Item Value Reference Range Interpretation Comments POCT GLU (test code = 3841067067) 132 mg/dL 70-110 H Lab Interpretation (test code = Abnormal 61953-3) [facility] GLUCOSE (AUTOMATED)2022-05-07 14:43:43 Test Item Value Reference Range Interpretation Comments POCT GLU (test code = 3884012554) 156 mg/dL 70-110 H Lab Interpretation (test code = Abnormal 37892-8) [facility] GLUCOSE (AUTOMATED)2022-05-07 14:43:43 Test Item Value Reference Range Interpretation Comments POCT GLU (test code = 8999661076) 156 mg/dL 70-110 H Lab Interpretation (test code = Abnormal 17515-2) [facility] METABOLIC PANEL (NA, K, CL, CO2, GLUCOSE, BUN, CREATININE, CA)2022-05-07 08:45:18 Test Item Value Reference Range Interpretation Comments NA (test code = 140 mmol/L 135-145 8584154668) K (test code = 3.3 mmol/L 3.5-5.0 L 1702270077) CL (test code = 103 mmol/L 98-108 6447066360) CO2 TOTAL (test code = 32 mmol/L 23-31 H 3628774784) AGAP (test code = 5 2-16 3007030464) BUN (test code = 12 mg/dL 7-23 8668039824) GLUCOSE (test code = 153 mg/dL 70-110 H 4236189635) CREATININE (test code = 0.48 mg/dL 0.50-1.04 L 1412858878) CALCIUM (test code = 8.2 mg/dL 8.6-10.6 L 7969320141) eGFR (test code = 141.2 mL/min/1.73m2 2940736584) MARIPOSA (test code = MARIPOSA) Association of [...] tests). Lab Interpretation Abnormal (test code = 78920-0) [facility] METABOLIC PANEL (NA, K, CL, CO2, GLUCOSE, BUN, CREATININE, CA)2022-05-07 08:45:18 Test Item Value Reference Range Interpretation Comments NA (test code = 140 mmol/L 135-145 9905838038) K (test code = 3.3 mmol/L 3.5-5.0 L 8968465060) CL (test code = 103 mmol/L 98-108 6693643127) CO2 TOTAL (test code = 32 mmol/L 23-31 H 8864310262) AGAP (test code = 5 2-16 2489936300) BUN (test code = 12 mg/dL 7-23 6177555423) GLUCOSE (test code = 153 mg/dL 70-110 H 8647297805) CREATININE (test code = 0.48 mg/dL 0.50-1.04 L 1299633881) CALCIUM (test code = 8.2 mg/dL 8.6-10.6 L 6252588943) eGFR (test code = 141.2 mL/min/1.73m2 4942705835) MARIPOSA (test code = MARIPOSA) Association of [...] tests). Lab Interpretation Abnormal (test code = 74736-6) [facility] [id number] 03:43:33 Test Item Value Reference Range Interpretation Comments TROPONIN I (test code = 0.003 ng/mL <=0.034 3992002566) MARIPOSA (test code = MARIPOSA) Reference (Normal) [...] biotin. Lab Interpretation Normal (test code = 72534-2) [facility] [id number] 03:43:33 Test Item Value Reference Range Interpretation Comments TROPONIN I (test code = 0.003 ng/mL <=0.034 4868848848) MARIPOSA (test code = MARIPOSA) Reference (Normal) [...] biotin. Lab Interpretation Normal (test code = 59976-7) [facility] GLUCOSE (AUTOMATED)2022-05-07 01:38:50 Test Item Value Reference Range Interpretation Comments POCT GLU (test code = 8505393892) 156 mg/dL 70-110 H Lab Interpretation (test code = Abnormal 56860-6) [facility] GLUCOSE (AUTOMATED)2022-05-07 01:38:50 Test Item Value Reference Range Interpretation Comments POCT GLU (test code = 5714436076) 156 mg/dL 70-110 H Lab Interpretation (test code = Abnormal 11406-7) [facility] GLUCOSE (AUTOMATED)2022-05-06 23:06:02 Test Item Value Reference Range Interpretation Comments POCT GLU (test code = 3317929316) 138 mg/dL 70-110 H Lab Interpretation (test code = Abnormal 37724-0) [facility] GLUCOSE (AUTOMATED)2022-05-06 23:06:02 Test Item Value Reference Range Interpretation Comments POCT GLU (test code = 4623956076) 138 mg/dL 70-110 H Lab Interpretation (test code = Abnormal 96822-8) [facility] GLUCOSE (AUTOMATED)2022-05-06 17:47:43 Test Item Value Reference Range Interpretation Comments POCT GLU (test code = 8194529608) 126 mg/dL 70-110 H Lab Interpretation (test code = Abnormal 46422-8) [facility] GLUCOSE (AUTOMATED)2022-05-06 17:47:43 Test Item Value Reference Range Interpretation Comments POCT GLU (test code = 9198706260) 126 mg/dL 70-110 H Lab Interpretation (test code = Abnormal 93501-3) [facility] METABOLIC PANEL (NA, K, CL, CO2, GLUCOSE, BUN, CREATININE, CA)2022-05-06 05:40:49 Test Item Value Reference Range Interpretation Comments NA (test code = 139 mmol/L 135-145 5660498566) K (test code = 4.0 mmol/L 3.5-5.0 3604564738) CL (test code = 100 mmol/L 98-108 2285086282) CO2 TOTAL (test code = 32 mmol/L 23-31 H 6132715920) AGAP (test code = 7 2-16 9374557382) BUN (test code = 12 mg/dL 7-23 5007415534) GLUCOSE (test code = 108 mg/dL 70-110 4471375731) CREATININE (test code = 0.47 mg/dL 0.50-1.04 L 7498629517) CALCIUM (test code = 8.9 mg/dL 8.6-10.6 8081555353) eGFR (test code = 144.6 mL/min/1.73m2 6141061978) MARIPOSA (test code = MARIPOSA) Association of [...] tests). Lab Interpretation Abnormal (test code = 63369-3) [facility] METABOLIC PANEL (NA, K, CL, CO2, GLUCOSE, BUN, CREATININE, CA)2022-05-06 05:40:49 Test Item Value Reference Range Interpretation Comments NA (test code = 139 mmol/L 135-145 2296939437) K (test code = 4.0 mmol/L 3.5-5.0 6324749558) CL (test code = 100 mmol/L 98-108 8675297983) CO2 TOTAL (test code = 32 mmol/L 23-31 H 5081915234) AGAP (test code = 7 2-16 6289446229) BUN (test code = 12 mg/dL 7-23 9022858916) GLUCOSE (test code = 108 mg/dL 70-110 2138414978) CREATININE (test code = 0.47 mg/dL 0.50-1.04 L 3881773598) CALCIUM (test code = 8.9 mg/dL 8.6-10.6 4007192454) eGFR (test code = 144.6 mL/min/1.73m2 7583502581) MARIPOSA (test code = MARIPOSA) Association of [...] tests). Lab Interpretation Abnormal (test code = 98922-1) [facility] [id number] 05:37:58 Test Item Value Reference Range Interpretation Comments PREG SERUM (test code Negative = 5629845260) MARIPOSA (test code = MARIPOSA) Less than 10 IU/L. ?If low titer or ectopic is suspected, resubmit specimen in 48-72 hours. [facility], [id number] 05:37:58 Test Item Value Reference Range Interpretation Comments PREG SERUM (test code Negative = 6569884530) MARIPOSA (test code = MARIPOSA) Less than 10 IU/L. ?If low titer or ectopic is suspected, resubmit specimen in 48-72 hours. [facility] [id number] 04:47:02 Test Item Value Reference Range Interpretation Comments APTT Patient (test code = 33 See_Comment [ Automated message] 8163-2) The system [employer] generated this result transmitted ref erence range: 26 - 36 Seconds. The re ference range was not u sed to interpret this result as normal/abnor mal. Lab Interpretation (test Normal code = 10637-9) [facility] CampusProthrombin Time / [id number] 04:47:02 Test Item Value Reference Range Interpretation Comments PROTIME PATIENT (test 12.9 See_Comment H [Auto mated message] code = 5964-2) The system [employer] generated this result transmitted ref erence range: 10.1 - 1 2.6 Seconds. The reference range was not used to int erpret this result as normal/abnormal . INR (test code = 6301-6) 1.2 Nor mal INR <1.1; Warfarin Therap eutic range 2.0 to 3. 0 or 2.5 to 3.5, dep ending upon the indica tions. Lab Interpretation (test Abnormal code = 10033-9) [facility] [id number] 04:47:02 Test Item Value Reference Range Interpretation Comments APTT Patient (test code = 33 See_Comment [ Automated message] 3683-2) The system [employer] generated this result transmitted ref erence range: 26 - 36 Seconds. The re ference range was not u sed to interpret this result as normal/abnor mal. Lab Interpretation (test Normal code = 58497-0) [facility] / [id number] 04:47:02 Test Item Value Reference Range Interpretation [...] tions. Lab Interpretation (test Abnormal code = 63610-2) [facility] WITH [id number] 04:43:00 Test Item Value Reference Range Interpretation Comments WBC (test code = 6.97 See_Comment [Automated 9595-2) message] The sy stem which generated this result transmitted reference range : 4.30 - 11.10 10*3/?L. The reference range was not used to interpret this result as normal/abnormal . RBC (test code = 4.26 See_Comment [Automated 159-8) message] The sy stem which generated this [...] RDW-SD (test code = 46.7 fL 39.0-49.9 96301-5) RDW-CV (test code = 14.8 % 12.0-15.5 788-0) PLT (test code = 178 See_Comment [Automated 287-3) message] The sy stem which generated this result transmitted reference range : 166 - 358 10*3/ ?L. The reference r palmira was not used to interpret this result as normal/abnormal . MPV (test code = 10.5 fL 9.5-12.9 78835-4) NRBC/100 WBC (test 0.0 See_Comment [Automat ed code = 0636573600) message] The system which generated this result transmitted reference range : 0.0 - 10.0 /100 WBCs. The refer ence range was not u sed to interpret th is result as normal/abnormal . NRBC x10^3 (test code See_Comment [Auto mated = 2737313937) message] The s ystem which generated this result transmitted reference range : 10*3/?L. The reference range was not used to interpret this result as normal/abnormal . GRAN MAT (NEUT) % 69.2 % (test code = 770-8) IMM GRAN % (test code 0.30 % = 0831790496) LYMPH % (test code = 20.7 % 736-9) MONO % (test code = 7.0 % 5905-5) EOS % (test code = 2.4 % 713-8) BASO % (test code = 0.4 % 706-2) GRAN MAT x10^3(ANC) 4.82 10*3/uL 1.88-7.09 (test code = 5411407234) IMM GRAN x10^3 (test 0.00-0.06 code = 8403248833) LYMPH x10^3 (test code 1.44 10*3/uL 1.32-3.29 = 731-0) MONO x10^3 (test code 0.49 10*3/uL 0.33-0.92 = 742-7) EOS x10^3 (test code = 0.17 10*3/uL 0.03-0.39 711-2) BASO x10^3 (test code 0.03 10*3/uL 0.01-0.07 = 704-7) Lab Interpretation Abnormal (test code = 23379-4) [facility] WITH [id number] 04:43:00 Test Item Value Reference Range Interpretation [...] RDW-SD (test code = 46.7 fL 39.0-49.9 39272-8) RDW-CV (test code = 14.8 % 12.0-15.5 788-0) PLT (test code = 178 See_Comment [Automated 777-3) message] The sy stem which generated this result transmitted reference range : 166 - 358 10*3/ ?L. The reference r palmira was not used to interpret this result as normal/abnormal . MPV (test code = 10.5 fL 9.5-12.9 16399-3) NRBC/100 WBC (test 0.0 See_Comment [Automat ed code = 3142716225) message] The system which generated this result transmitted reference range : 0.0 - 10.0 /100 WBCs. The refer ence range was not u sed to interpret th is result as normal/abnormal . NRBC x10^3 (test code See_Comment [Auto mated = 4873219877) message] The s ystem which generated this result transmitted reference range : 10*3/?L. The reference range was not used to interpret this result as normal/abnormal . GRAN MAT (NEUT) % 69.2 % (test code = 770-8) IMM GRAN % (test code 0.30 % = 3697572923) LYMPH % (test code = 20.7 % 736-9) MONO % (test code = 7.0 % 5905-5) EOS % (test code = 2.4 % 713-8) BASO % (test code = 0.4 % 706-2) GRAN MAT x10^3(ANC) 4.82 10*3/uL 1.88-7.09 (test code = 6507171179) IMM GRAN x10^3 (test 0.00-0.06 code = 7645168796) LYMPH x10^3 (test code 1.44 10*3/uL 1.32-3.29 = 731-0) MONO x10^3 (test code 0.49 10*3/uL 0.33-0.92 = 742-7) EOS x10^3 (test code = 0.17 10*3/uL 0.03-0.39 711-2) BASO x10^3 (test code 0.03 10*3/uL 0.01-0.07 = 704-7) Lab Interpretation Abnormal (test code = 61244-8) [facility] - ONCE [id number] 04:35:00 Test Item Value Reference Range Interpretation Comments ABO & RH (test code = 20) O POSITIVE IAT (test code = 1185) Negative [facility] [id number] 04:35:00 Test Item Value Reference Range Interpretation Comments ABO & RH (test code = 20) O POSITIVE IAT (test code = 1185) Negative [facility] GLUCOSE (AUTOMATED)2022-05-06 01:51:07 Test Item Value Reference Range Interpretation Comments POCT GLU (test code = 3609051823) 99 mg/dL 70-110 Lab Interpretation (test code = Normal 14127-7) [facility] GLUCOSE (AUTOMATED)2022-05-06 01:51:07 Test Item Value Reference Range Interpretation Comments POCT GLU (test code = 7727051676) 99 mg/dL 70-110 Lab Interpretation (test code = Normal 26633-9) [facility] GLUCOSE (AUTOMATED)2022-05-05 22:25:45 Test Item Value Reference Range Interpretation Comments POCT GLU (test code = 8536055961) 104 mg/dL 70-110 Lab Interpretation (test code = Normal 58149-1) [facility] GLUCOSE (AUTOMATED)2022-05-05 22:25:45 Test Item Value Reference Range Interpretation Comments POCT GLU (test code = 5119996079) 104 mg/dL 70-110 Lab Interpretation (test code = Normal 20006-4) [facility] GLUCOSE (AUTOMATED)2022-05-05 17:48:07 Test Item Value Reference Range Interpretation Comments POCT GLU (test code = 118 mg/dL 70-110 H Notifi ed Provider [id number]) Lab Interpretation (test Abnormal code = 66790-6) [facility] GLUCOSE (AUTOMATED)2022-05-05 17:48:07 Test Item Value Reference Range Interpretation Comments POCT GLU (test code = 118 mg/dL 70-110 H Notifi ed Provider [id number]) Lab Interpretation (test Abnormal code = 81977-6) [facility] GLUCOSE (AUTOMATED)2022-05-05 12:44:49 Test Item Value Reference Range Interpretation Comments POCT GLU (test code = 106 mg/dL 70-110 Notifi ed Provider [id number]) Lab Interpretation (test Normal code = 05401-6) [facility] GLUCOSE (AUTOMATED)2022-05-05 12:44:49 Test Item Value Reference Range Interpretation Comments POCT GLU (test code = 106 mg/dL 70-110 Notifi ed Provider [id number]) Lab Interpretation (test Normal code = 09688-7) [facility] GLUCOSE (AUTOMATED)2022-05-04 21:54:31 Test Item Value Reference Range Interpretation Comments POCT GLU (test code = 115 mg/dL 70-110 H Notifi ed Provider [id number]) Lab Interpretation (test Abnormal code = 81125-4) [facility] GLUCOSE (AUTOMATED)2022-05-04 21:54:31 Test Item Value Reference Range Interpretation Comments POCT GLU (test code = 115 mg/dL 70-110 H Notifi ed Provider [id number]) Lab Interpretation (test Abnormal code = 85532-7) [facility] GLUCOSE (AUTOMATED)2022-05-04 16:45:44 Test Item Value Reference Range Interpretation Comments POCT GLU (test code = 120 mg/dL 70-110 H Notifi ed Provider [id number]) Lab Interpretation (test Abnormal code = 49836-8) [facility] GLUCOSE (AUTOMATED)2022-05-04 16:45:44 Test Item Value Reference Range Interpretation Comments POCT GLU (test code = 120 mg/dL 70-110 H Notifi ed Provider [id number]) Lab Interpretation (test Abnormal code = 81647-9) [facility] GLUCOSE (AUTOMATED)2022-05-04 12:51:31 Test Item Value Reference Range Interpretation Comments POCT GLU (test code = 116 mg/dL 70-110 H Notifi ed Provider [id number]) Lab Interpretation (test Abnormal code = 49540-1) [facility] GLUCOSE (AUTOMATED)2022-05-04 12:51:31 Test Item Value Reference Range Interpretation Comments POCT GLU (test code = 116 mg/dL 70-110 H Notifi ed Provider [id number]) Lab Interpretation (test Abnormal code = 95537-8) [facility] GLUCOSE (AUTOMATED)2022-05-04 02:01:45 Test Item Value Reference Range Interpretation Comments POCT GLU (test code = 7631132795) 105 mg/dL 70-110 Lab Interpretation (test code = Normal 50508-1) [facility] GLUCOSE (AUTOMATED)2022-05-04 02:01:45 Test Item Value Reference Range Interpretation Comments POCT GLU (test code = 7808498494) 105 mg/dL 70-110 Lab Interpretation (test code = Normal 46969-1) [facility] GLUCOSE (AUTOMATED)2022-05-03 21:13:28 Test Item Value Reference Range Interpretation Comments POCT GLU (test code = 126 mg/dL 70-110 H Notifi ed Provider [id number]) Lab Interpretation (test Abnormal code = 03536-1) [facility] GLUCOSE (AUTOMATED)2022-05-03 21:13:28 Test Item Value Reference Range Interpretation Comments POCT GLU (test code = 126 mg/dL 70-110 H Notifi ed Provider [id number]) Lab Interpretation (test Abnormal code = 19557-9) [facility] GLUCOSE (AUTOMATED)2022-05-03 17:04:57 Test Item Value Reference Range Interpretation Comments POCT GLU (test code = 104 mg/dL 70-110 Notifi ed Provider [id number]) Lab Interpretation (test Normal code = 95233-7) [facility] GLUCOSE (AUTOMATED)2022-05-03 17:04:57 Test Item Value Reference Range Interpretation Comments POCT GLU (test code = 104 mg/dL 70-110 Notifi ed Provider [id number]) Lab Interpretation (test Normal code = 27738-0) [facility] GLUCOSE (AUTOMATED)2022-05-03 12:40:06 Test Item Value Reference Range Interpretation Comments POCT GLU (test code = 103 mg/dL 70-110 Notifi ed Provider [id number]) Lab Interpretation (test Normal code = 45085-1) [facility] GLUCOSE (AUTOMATED)2022-05-03 12:40:06 Test Item Value Reference Range Interpretation Comments POCT GLU (test code = 103 mg/dL 70-110 Notifi ed Provider [id number]) Lab Interpretation (test Normal code = 65836-1) [facility] GLUCOSE (AUTOMATED)2022-05-03 02:54:17 Test Item Value Reference Range Interpretation Comments POCT GLU (test code = 2204563474) 106 mg/dL 70-110 Lab Interpretation (test code = Normal 12154-1) [facility] GLUCOSE (AUTOMATED)2022-05-03 02:54:17 Test Item Value Reference Range Interpretation Comments POCT GLU (test code = 0181082217) 106 mg/dL 70-110 Lab Interpretation (test code = Normal 33432-7) [facility] GLUCOSE (AUTOMATED)2022-05-02 22:11:04 Test Item Value Reference Range Interpretation Comments POCT GLU (test code = 5226461978) 136 mg/dL 70-110 H Lab Interpretation (test code = Abnormal 45012-6) [facility] GLUCOSE (AUTOMATED)2022-05-02 22:11:04 Test Item Value Reference Range Interpretation Comments POCT GLU (test code = 5399284280) 136 mg/dL 70-110 H Lab Interpretation (test code = Abnormal 78177-7) [facility] GLUCOSE (AUTOMATED)2022-05-02 17:20:00 Test Item Value Reference Range Interpretation Comments POCT GLU (test code = 4927497594) 115 mg/dL 70-110 H Lab Interpretation (test code = Abnormal 85265-7) [facility] GLUCOSE (AUTOMATED)2022-05-02 17:20:00 Test Item Value Reference Range Interpretation Comments POCT GLU (test code = 5479541232) 115 mg/dL 70-110 H Lab Interpretation (test code = Abnormal 40354-1) [facility] GLUCOSE (AUTOMATED)2022-05-02 13:31:10 Test Item Value Reference Range Interpretation Comments POCT GLU (test code = 7404165293) 106 mg/dL 70-110 Lab Interpretation (test code = Normal 51701-1) [facility] GLUCOSE (AUTOMATED)2022-05-02 13:31:10 Test Item Value Reference Range Interpretation Comments POCT GLU (test code = 9042675201) 106 mg/dL 70-110 Lab Interpretation (test code = Normal 75874-5) [facility] GLUCOSE (AUTOMATED)2022-05-02 02:07:14 Test Item Value Reference Range Interpretation Comments POCT GLU (test code = 9985469615) 149 mg/dL 70-110 H Lab Interpretation (test code = Abnormal 08353-5) [facility] GLUCOSE (AUTOMATED)2022-05-02 02:07:14 Test Item Value Reference Range Interpretation Comments POCT GLU (test code = 4279026133) 149 mg/dL 70-110 H Lab Interpretation (test code = Abnormal 59084-3) [facility] GLUCOSE (AUTOMATED)2022-05-01 21:53:04 Test Item Value Reference Range Interpretation Comments POCT GLU (test code = 2679460992) 124 mg/dL 70-110 H Lab Interpretation (test code = Abnormal 94100-2) [facility] GLUCOSE (AUTOMATED)2022-05-01 21:53:04 Test Item Value Reference Range Interpretation Comments POCT GLU (test code = 3466005087) 124 mg/dL 70-110 H Lab Interpretation (test code = Abnormal 79687-5) [facility] GLUCOSE (AUTOMATED)2022-05-01 16:49:23 Test Item Value Reference Range Interpretation Comments POCT GLU (test code = 9748765353) 101 mg/dL 70-110 Lab Interpretation (test code = Normal 34965-3) [facility] GLUCOSE (AUTOMATED)2022-05-01 16:49:23 Test Item Value Reference Range Interpretation Comments POCT GLU (test code = 7320046451) 101 mg/dL 70-110 Lab Interpretation (test code = Normal 42309-2) [facility] GLUCOSE (AUTOMATED)2022-05-01 12:48:25 Test Item Value Reference Range Interpretation Comments POCT GLU (test code = 5735307245) 127 mg/dL 70-110 H Lab Interpretation (test code = Abnormal 18726-0) [facility] GLUCOSE (AUTOMATED)2022-05-01 12:48:25 Test Item Value Reference Range Interpretation Comments POCT GLU (test code = 8536812353) 127 mg/dL 70-110 H Lab Interpretation (test code = Abnormal 98714-9) [facility] GLUCOSE (AUTOMATED)2022-05-01 00:26:54 Test Item Value Reference Range Interpretation Comments POCT GLU (test code = 4318034048) 116 mg/dL 70-110 H Lab Interpretation (test code = Abnormal 78416-6) [facility] GLUCOSE (AUTOMATED)2022-05-01 00:26:54 Test Item Value Reference Range Interpretation Comments POCT GLU (test code = 5667798211) 116 mg/dL 70-110 H Lab Interpretation (test code = Abnormal 28586-0) [facility] GLUCOSE (AUTOMATED)2022-04-30 21:41:13 Test Item Value Reference Range Interpretation Comments POCT GLU (test code = 9965439089) 119 mg/dL 70-110 H Lab Interpretation (test code = Abnormal 73407-1) [facility] GLUCOSE (AUTOMATED)2022-04-30 21:41:13 Test Item Value Reference Range Interpretation Comments POCT GLU (test code = 0168088903) 119 mg/dL 70-110 H Lab Interpretation (test code = Abnormal 66481-0) [facility] GLUCOSE (AUTOMATED)2022-04-30 17:26:22 Test Item Value Reference Range Interpretation Comments POCT GLU (test code = 9229453640) 120 mg/dL 70-110 H Lab Interpretation (test code = Abnormal 77828-4) [facility] GLUCOSE (AUTOMATED)2022-04-30 17:26:22 Test Item Value Reference Range Interpretation Comments POCT GLU (test code = 6358365638) 120 mg/dL 70-110 H Lab Interpretation (test code = Abnormal 25192-3) [facility] GLUCOSE (AUTOMATED)2022-04-30 12:58:09 Test Item Value Reference Range Interpretation Comments POCT GLU (test code = 1192068355) 115 mg/dL 70-110 H Lab Interpretation (test code = Abnormal 95129-1) [facility] GLUCOSE (AUTOMATED)2022-04-30 12:58:09 Test Item Value Reference Range Interpretation Comments POCT GLU (test code = 0208969783) 115 mg/dL 70-110 H Lab Interpretation (test code = Abnormal 72823-9) [facility] GLUCOSE (AUTOMATED)2022-04-30 01:44:20 Test Item Value Reference Range Interpretation Comments POCT GLU (test code = 8325748640) 105 mg/dL 70-110 Lab Interpretation (test code = Normal 67895-8) [facility] GLUCOSE (AUTOMATED)2022-04-30 01:44:20 Test Item Value Reference Range Interpretation Comments POCT GLU (test code = 4925649788) 105 mg/dL 70-110 Lab Interpretation (test code = Normal 58954-6) [facility], [id number] 07:19:13 Test Item Value Reference Range Interpretation Comments PREG SERUM (test code Negative = 0474727991) MARIPOSA (test code = MARIPOSA) Less than 10 IU/L. ?If low titer or ectopic is suspected, resubmit specimen in 48-72 hours. [facility], [id number] 07:19:13 Test Item Value Reference Range Interpretation Comments PREG SERUM (test code Negative = 8715536643) MARIPOSA (test code = MARIPOSA) Less than [...] 6.5% Lab Interpretation (test Abnormal code = 18699-2) [facility]ED[facility] [id number] 04:04:16 Test Item Value Reference Range Interpretation Comments ESR (test code = 48 See_Comment H [Automated message] 34238-1) The system [employer] generated this result transmitted ref erence range: 0 - 20 m m/HR. The reference r palmira was not used to interpret this result as normal/abnor mal. Lab Interpretation (test Abnormal code = 81748-2) [facility] [id number] 00:57:38 Test Item Value Reference Range Interpretation Comments TROPONIN I (test code = 0.005 ng/mL <=0.034 9472361288) MARIPOSA (test code = MARIPOSA) Reference (Normal) [...] biotin. Lab Interpretation Normal (test code = 44537-9) [facility] [id number] 00:54:19 Test Item Value Reference Range Interpretation Comments NT-proBNP (test code = 53 pg/mL <=125 1511411613) MARIPOSA (test code = MARIPOSA) Biotin has been reported to cause a negative bias, interpret results relative to patient's use of biotin. Lab Interpretation (test Normal code = 93040-3) [facility]2023-03-17 00:46:15 Test Item Value Reference Range Interpretation Comments MAGNESIUM (test code = 5287836275) 1.7 mg/dL 1.7-2.4 Lab Interpretation (test code = Normal 97659-6) [facility] METABOLIC PANEL (28810)2022-04-29 00:45:55 Test Item Value Reference Range Interpretation Comments NA (test code = 136 mmol/L 135-145 1986452075) K (test code = 5.5 mmol/L 3.5-5.0 H 0654173526) CL (test code = 98 mmol/L 98-108 8859474016) CO2 TOTAL (test code = 28 mmol/L 23-31 7885966272) AGAP (test code = 10 2-16 5764599414) BUN (test code = 12 mg/dL 7-23 6516776987) GLUCOSE (test code = 87 mg/dL 70-110 2639259549) CREATININE (test code = 0.43 mg/dL 0.50-1.04 L 4705924448) TOTAL BILI (test code = 0.8 mg/dL 0.1-1.0 9526622671) CALCIUM (test code = 9.1 mg/dL 8.6-10.6 2246385349) T PROTEIN (test code = 8.8 g/dL 6.3-8.2 H 3514770864) ALBUMIN (test code = 4.5 g/dL 3.5-5.0 8423353388) ALK PHOS (test code = 101 U/L 34-122 8562881559) ALTv (test code = 19 U/L 5-35 1742-6) AST(SGOT) (test code = 34 U/L 13-40 2665147112) eGFR (test code = 160.3 mL/min/1.73m2 8445640368) MARIPOSA (test code = MARIPOSA) Association of [...] tests). Lab Interpretation Abnormal (test code = 74247-7) [facility]IP[facility]2023-03-17 00:45:39 Test Item Value Reference Range Interpretation Comments LIPASE (test code = 3827375388) 93 U/L 0-220 Lab Interpretation (test code = Normal 87772-9) [facility]POCT [id number] 00:36:00 Test Item Value Reference Range Interpretation Comments POCT PREG (test code = 1605) negative On board controls acceptable with present C Line (test code = 3574) POCT PREG LOT # (test code = 3575) [id number] POCT PREG TEST DATE (test 07/14/2023 code = 3576) Lab Interpretation (test code = Normal 66762-3) [facility]CBC WITH [id number] 00:32:18 Test Item Value Reference Range Interpretation Comments WBC (test code = 8.20 See_Comment [Automated 4961-2) message] The sy stem which generated this result transmitted reference range : 4.30 - 11.10 10*3/?L. The reference range was not used to interpret this result as normal/abnormal . RBC (test code = 4.73 See_Comment [Automated 501-8) message] The sy stem which generated this [...] RDW-SD (test code = 45.6 fL 39.0-49.9 95105-9) RDW-CV (test code = 14.7 % 12.0-15.5 788-0) PLT (test code = 221 See_Comment [Automated 777-3) message] The sy stem which generated this result transmitted reference range : 166 - 358 10*3/ ?L. The reference r palmira was not used to interpret this result as normal/abnormal . MPV (test code = 10.1 fL 9.5-12.9 18257-5) NRBC/100 WBC (test 0.0 See_Comment [Automat ed code = 7946560434) message] The system which generated this result transmitted reference range : 0.0 - 10.0 /100 WBCs. The refer ence range was not u sed to interpret th is result as normal/abnormal . NRBC x10^3 (test code See_Comment [Auto mated = 8869994674) message] The s ystem which generated this result transmitted reference range : 10*3/?L. The reference range was not used to interpret this result as normal/abnormal . GRAN MAT (NEUT) % 56.7 % (test code = 770-8) IMM GRAN % (test code 0.20 % = 2021996594) LYMPH % (test code = 29.3 % 736-9) MONO % (test code = 6.7 % 5905-5) EOS % (test code = 6.7 % 713-8) BASO % (test code = 0.4 % 706-2) GRAN MAT x10^3(ANC) 4.65 10*3/uL 1.88-7.09 (test code = 6205033904) IMM GRAN x10^3 (test 0.00-0.06 code = 6324852984) LYMPH x10^3 (test code 2.40 10*3/uL 1.32-3.29 = 731-0) MONO x10^3 (test code 0.55 10*3/uL 0.33-0.92 = 742-7) EOS x10^3 (test code = 0.55 10*3/uL 0.03-0.39 H 711-2) BASO x10^3 (test code 0.03 10*3/uL 0.01-0.07 = 704-7) Lab Interpretation Abnormal (test code = 68507-8) [facility] METABOLIC PANEL (NA, K, CL, CO2, GLUCOSE, BUN, CREATININE, CA)2022-01-16 15:24:17 Test Item Value Reference Range Interpretation Comments NA (test code = 137 mmol/L 135-145 9924486460) K (test code = 4.4 mmol/L 3.5-5.0 2251655072) CL (test code = 100 mmol/L 98-108 6099969699) CO2 TOTAL (test code = 28 mmol/L 23-31 6705239990) AGAP (test code = 2-16 4324616494) BUN (test code = 14 mg/dL 7-23 4298837311) GLUCOSE (test code = 121 mg/dL 70-110 H 8329777537) CREATININE (test code = 0.61 mg/dL 0.50-1.04 1224354323) CALCIUM (test code = 8.7 mg/dL 8.6-10.6 9691199856) eGFR (test code = mL/min/1.73m2 8322148101) MARIPOSA (test code = MARIPOSA) Association of [...] tests). Lab Interpretation Abnormal (test code = 98039-6) [facility] METABOLIC PANEL (NA, K, CL, CO2, GLUCOSE, BUN, CREATININE, CA)2022-01-16 15:24:17 Test Item Value Reference Range Interpretation Comments NA (test code = 137 mmol/L 135-145 8762422887) K (test code = 4.4 mmol/L 3.5-5.0 7621703295) CL (test code = 100 mmol/L 98-108 5748419116) CO2 TOTAL (test code = 28 mmol/L 23-31 0850185034) AGAP (test code = 2-16 8376692877) BUN (test code = 14 mg/dL 7-23 3936820860) GLUCOSE (test code = 121 mg/dL 70-110 H 5445411433) CREATININE (test code = 0.61 mg/dL 0.50-1.04 4154959686) CALCIUM (test code = 8.7 mg/dL 8.6-10.6 5411623365) eGFR (test code = mL/min/1.73m2 1975156335) MARIPOSA (test code = MARIPOSA) Association of [...] tests). Lab Interpretation Abnormal (test code = 36489-6) [facility] GLUCOSE (AUTOMATED)2022-01-15 18:40:12 Test Item Value Reference Range Interpretation Comments POCT GLU (test code = 3707571033) 182 mg/dL 70-110 H Lab Interpretation (test code = Abnormal 87282-2) [facility] GLUCOSE (AUTOMATED)2022-01-15 18:40:12 Test Item Value Reference Range Interpretation Comments POCT GLU (test code = 1573920553) 182 mg/dL 70-110 H Lab Interpretation (test code = Abnormal 70772-9) [facility] [id number] 12:21:06 Test Item Value Reference Range Interpretation Comments PHOSPHORUS (test code = 1946239286) 5.6 mg/dL 2.5-5.0 H Lab Interpretation (test code = Abnormal 74292-1) [facility] GLUCOSE (AUTOMATED)2021-10-01 16:55:39 Test Item Value Reference Range Interpretation Comments POCT GLU (test code = 5353777553) 221 mg/dL 70-110 H Lab Interpretation (test code = Abnormal 15843-8) [facility] GLUCOSE (AUTOMATED)2021-10-01 12:39:20 Test Item Value Reference Range Interpretation Comments POCT GLU (test code = 8374718892) 185 mg/dL 70-110 H Lab Interpretation (test code = Abnormal 10852-2) [facility] [id number] 11:06:03 Test Item Value Reference Range Interpretation Comments MAGNESIUM (test code = 3962796434) 2.0 mg/dL 1.7-2.4 Lab Interpretation (test code = Normal 14646-7) [facility] (NA, K, CL, CO2, GLUCOSE, BUN, CREATININE, CA)2021-10-01 11:05:43 Test Item Value Reference Range Interpretation Comments NA (test code = 139 mmol/L 135-145 9076333723) K (test code = 4.5 mmol/L 3.5-5 5048025229) CL (test code = 100 mmol/L 98-108 6072213597) CO2 TOTAL (test code = 33 mmol/L 23-31 H 5483381647) AGAP (test code = 2-16 1938483961) BUN (test code = 11 mg/dL 7-23 6000593825) GLUCOSE (test code = 197 mg/dL 70-110 H 4236757994) CREATININE (test code = 0.42 mg/dL 0.5-1.04 L 6200346262) CALCIUM (test code = 8.8 mg/dL 8.6-10.6 1674754890) eGFR (test code = mL/min/1.73m2 8180182951) MARIPOSA (test code = MARIPOSA) Association of [...] tests). Lab Interpretation Abnormal (test code = 89771-7) [facility] CampusPhosphorus [id number] 11:05:23 Test Item Value Reference Range Interpretation Comments PHOSPHORUS (test code = 6722247463) 3.9 mg/dL 2.5-5 Lab Interpretation (test code = Normal 93383-3) [facility] CampusD-[id number] 11:00:23 Test Item Value Reference Interpretation Comments Range D-DIMER (test code = See_Comment H [Autom ated 3415156600) message] The system which generated this result [...] diagnosis. Lab Interpretation Abnormal (test code = 66381-9) [facility]CBC with [id number] 10:20:16 Test Item Value Reference Range Interpretation [...] (test code = 50.0 fL 39-49.9 H 12902-0) RDW-CV (test code = 15.9 % 12-15.5 H 788-0) PLT (test code = See_Comment [Automated 777-3) message] The sy stem which generated this result transmitted reference range : 166 - 358 10*3/ ?L. The reference r palmira was not used to interpret this result as normal/abnormal . MPV (test code = 10.4 fL 9.5-12.9 29846-2) NRBC/100 WBC (test See_Comment [Automat ed code = 1581095594) message] The system which generated this result transmitted reference range : 0.0 - 10.0 /100 WBCs. The refer ence range was not u sed to interpret th is result as normal/abnormal . NRBC x10^3 (test code See_Comment [Auto mated = 3164350196) message] The s ystem which generated this result transmitted reference range : 10*3/?L. The reference range was not used to interpret this result as normal/abnormal . GRAN MAT (NEUT) % 86.5 % (test code = 770-8) IMM GRAN % (test code 1.80 % = 0780403409) LYMPH % (test code = 9.5 % 736-9) MONO % (test code = 1.9 % 5905-5) EOS % (test code = 0.1 % 713-8) BASO % (test code = 0.2 % 706-2) GRAN MAT x10^3(ANC) 8.33 10*3/uL 1.88-7.09 H (test code = 1496113864) IMM GRAN x10^3 (test 0.17 10*3/uL 0-0.06 H code = 4318010004) LYMPH x10^3 (test code 0.91 10*3/uL 1.32-3.29 L = 731-0) MONO x10^3 (test code 0.18 10*3/uL 0.33-0.92 L = 742-7) EOS x10^3 (test code = 0.03-0.39 L 711-2) BASO x10^3 (test code 0.01-0.07 = 704-7) Lab Interpretation Abnormal (test code = 87393-9) [facility] GLUCOSE (AUTOMATED)2021-10-01 09:03:23 Test Item Value Reference Range Interpretation Comments POCT GLU (test code = 4649558305) 180 mg/dL 70-110 H Lab Interpretation (test code = Abnormal 09045-0) [facility] GLUCOSE (AUTOMATED)2021-10-01 02:44:00 Test Item Value Reference Range Interpretation Comments POCT GLU (test code = 6636679844) 307 mg/dL 70-110 H Lab Interpretation (test code = Abnormal 14063-0) [facility] CampusGlycosylated Hemoglobin (A1C)2021-10-01 01:56:57 Test Item Value Reference Range Interpretation Comments HGB A1C (test code = 7.3 % 4-5.7 H 4548-4) MARIPOSA (test code = MARIPOSA) Reference RangesNormal: <5.7%Prediabetes: 5.7 - 6.4%Diabetes: > 6.5% Lab Interpretation (test Abnormal code = 51337-6) [facility] CampusAc[facility] Arterial Blood Gas.2021-09-30 22:42:07 Test Item Value Reference Range Interpretation Comments PH (test code = 2) 7.35-7.45 PCO2 (test code = See_Comment H [Automate d message] 5405643928) The system [employer] generated this result transmitted ref erence range: 35 - 45 mmHg. The reference r palmira was not used to interpret this result as normal/abnor mal. PO2 (test code = See_Comment [Automated message] 1194824721) The system [employer] generated this result transmitted ref erence range: 80 - 100 mmHg. The reference r palmira was not used to interpret this result as normal/abnor mal. HCO3 (test code = See_Comment H [Automate d message] 9444272090) The system [employer] generated this result transmitted ref erence range: 22 - 26 mEq/L. The reference r palmira was not used to interpret this result as normal/abnor mal. BE (test code = See_Comment [Automated message] 9238469428) The system [employer] generated this result transmitted ref erence range: -3.0 - 3 .0 mEq/L. The refe rence range was not u sed to interpret this result as normal/abnor mal. Lab Interpretation (test Abnormal code = 25653-9) [facility] CampusTROP[facility]IN [id number] 21:29:19 Test Item Value Reference Interpretation Comments Range TROPONIN I (test 0.001 ng/mL See_Comment [Automated code = 9493207568) message] The system which generated this result [...] biotin. Lab Interpretation Normal (test code = 81042-4) [facility]N-[facility]MINAL [id number] 21:26:16 Test Item Value Reference Range Interpretation Comments NT-proBNP (test code 45 pg/mL See_Comment [Autom ated = 0108793147) message] The system which generated this result transmitted reference range : <=125. The reference range was not used to interpret this result as normal/abnormal . MARIPOSA (test code = MARIPOSA) Biotin has been reported to cause a negative bias, interpret results relative to patient's use of biotin. Lab Interpretation Normal (test code = 72881-1) [facility]. METABOLIC PANEL (34206)2021-09-30 21:18:56 Test Item Value Reference Range Interpretation Comments NA (test code = 139 mmol/L 135-145 2211384724) K (test code = 4.3 mmol/L 3.5-5 1181841100) CL (test code = 99 mmol/L 98-108 5122987995) CO2 TOTAL (test code = 31 mmol/L 23-31 2123839301) AGAP (test code = 2-16 0816177885) BUN (test code = 12 mg/dL 7-23 6111964974) GLUCOSE (test code = 140 mg/dL 70-110 H 9723177843) CREATININE (test code = 0.40 mg/dL 0.5-1.04 L 0849879659) TOTAL BILI (test code = 0.3 mg/dL 0.1-1.2 6570281055) CALCIUM (test code = 9.3 mg/dL 8.6-10.6 6596057622) T PROTEIN (test code = 7.6 g/dL 6.3-8.2 4385547553) ALBUMIN (test code = 4.5 g/dL 3.5-5 4810429306) ALK PHOS (test code = 115 U/L 34-122 3739860261) ALTv (test code = 24 U/L 5-35 1742-6) AST(SGOT) (test code = 26 U/L 13-40 9257966074) eGFR (test code = mL/min/1.73m2 5094034214) MARIPOSA (test code = MARIPOSA) Association of [...] tests). Lab Interpretation Abnormal (test code = 79399-6) [facility] WITH [id number] 21:08:31 Test Item Value Reference Range Interpretation Comments WBC (test code = See_Comment [Automated 0490-2) message] The sy stem which generated this result transmitted reference range : 4.30 - 11.10 10*3/?L. The reference range was not used to interpret this result as normal/abnormal . RBC (test code = See_Comment [Automated 649-8) message] The sy stem which generated this [...] (test code = 50.0 fL 39-49.9 H 13887-6) RDW-CV (test code = 16.0 % 12-15.5 H 788-0) PLT (test code = See_Comment [Automated 777-3) message] The sy stem which generated this result transmitted reference range : 166 - 358 10*3/ ?L. The reference r palmira was not used to interpret this result as normal/abnormal . MPV (test code = 10.3 fL 9.5-12.9 14455-1) NRBC/100 WBC (test See_Comment [Automat ed code = 2651972859) message] The system which generated this result transmitted reference range : 0.0 - 10.0 /100 WBCs. The refer ence range was not u sed to interpret th is result as normal/abnormal . NRBC x10^3 (test code See_Comment [Auto mated = 4034038643) message] The s ystem which generated this result transmitted reference range : 10*3/?L. The reference range was not used to interpret this result as normal/abnormal . GRAN MAT (NEUT) % 67.8 % (test code = 770-8) IMM GRAN % (test code 0.80 % = 8244413394) LYMPH % (test code = 19.8 % 736-9) MONO % (test code = 5.0 % 5905-5) EOS % (test code = 6.1 % 713-8) BASO % (test code = 0.5 % 706-2) GRAN MAT x10^3(ANC) 6.59 10*3/uL 1.88-7.09 (test code = 6977057084) IMM GRAN x10^3 (test 0.08 10*3/uL 0-0.06 H code = 4840109244) LYMPH x10^3 (test code 1.92 10*3/uL 1.32-3.29 = 731-0) MONO x10^3 (test code 0.49 10*3/uL 0.33-0.92 = 742-7) EOS x10^3 (test code = 0.59 10*3/uL 0.03-0.39 H 711-2) BASO x10^3 (test code 0.05 10*3/uL 0.01-0.07 = 704-7) Lab Interpretation Abnormal (test code = 41740-5) [facility] CampusNT-[id number] 05:08:21 Test Item Value Reference Range Interpretation Comments NT-proBNP <50 PG/ML SEE BELOW If NT-ProBNP i s less than 300 (test code = PG/ML, heart fa ilure is unlikely 78716) for allages. Age............ .....Heart Failure Likely <50 Years.......... .>=450 PG/ML 50-75 Years.... .....>=900 PG/ML > 75 Years..... .....>=1800 PG/ML Methodology: [employer] Electrochemilum inescense Immunoassay UNL ESS OTHERWISE INDICATED, ALL TESTING PERFORMED ATCLINICAL PATH [facility], [facility]. [address] [place] [address] 78 4 ANODE MACHINE OPERATOR: Anai NICHOLE [id number] CAP ACCREDITATION N O. [id number] 00:00:00 Test Item Value Reference Range Interpretation Comments NT-proBNP (test code = 79537) <50 PG/ML [id number] 00:00:00 Test Item Value Reference Range Interpretation Comments NT-proBNP (test code = 89395) <50 PG/ML [id number] 00:00:00 Test Item Value Reference Range Interpretation Comments NT-proBNP (test code = 46613) <50 PG/ML [id number] 00:00:00 Test Item Value Reference Range Interpretation Comments NT-proBNP (test code = 56486) <50 PG/ML [id number] 00:00:00 Test Item Value Reference Range Interpretation Comments NT-proBNP (test code = 77883) <50 PG/ML [id number] 00:00:00 Test Item Value Reference Range Interpretation Comments NT-proBNP (test code = 41752) <50 PG/ML [id number] 00:00:00 Test Item Value Reference Range Interpretation Comments NT-proBNP (test code = 47009) <50 PG/ML [id number] 00:00:00 Test Item Value Reference Range Interpretation Comments NT-proBNP (test code = 05495) <50 PG/ML [id number] 00:00:00 Test Item Value Reference Range Interpretation Comments NT-proBNP (test code = 95587) <50 PG/ML [id number] 00:00:00 Test Item Value Reference Range Interpretation Comments NT-proBNP (test code = 87914) <50 PG/ML [id number] 00:00:00 Test Item Value Reference Range Interpretation Comments NT-proBNP (test code = 61140) <50 PG/ML [id number] 00:00:00 Test Item Value Reference Range Interpretation Comments NT-proBNP (test code = 85916) <50 PG/ML VITAMIN D, 25 [id number] 05:02:19 Test Item Value Reference Range Interpretation [...] ATED, ALL TESTING PERFORM ED ATCLINICAL PATH [facility], [facility]. [address] [place] [address] LABORATORY DIRE CTOR: Philip NICHOLE CLIA NUMBER [id number] CAP ACCREDITATION N O. [id number] VITAMIN D, 25 [id number] 00:00:00 Test Item Value Reference Range Interpretation Comments VITAMIN D, 25 OH (test code = 4958) 13 NG/ML VITAMIN D, 25 [id number] 00:00:00 Test Item Value Reference Range Interpretation Comments VITAMIN D, 25 OH (test code = 4958) 13 NG/ML VITAMIN D, 25 [id number] 00:00:00 Test Item Value Reference Range Interpretation Comments VITAMIN D, 25 OH (test code = 4958) 13 NG/ML VITAMIN D, 25 [id number] 00:00:00 Test Item Value Reference Range Interpretation Comments VITAMIN D, 25 OH (test code = 4958) 13 NG/ML VITAMIN D, 25 [id number] 00:00:00 Test Item Value Reference Range Interpretation Comments VITAMIN D, 25 OH (test code = 4958) 13 NG/ML VITAMIN D, 25 [id number] 00:00:00 Test Item Value Reference Range Interpretation Comments VITAMIN D, 25 OH (test code = 4958) 13 NG/ML VITAMIN D, 25 [id number] 00:00:00 Test Item Value Reference Range Interpretation Comments VITAMIN D, 25 OH (test code = 4958) 13 NG/ML VITAMIN D, 25 [id number] 00:00:00 Test Item Value Reference Range Interpretation Comments VITAMIN D, 25 OH (test code = 4958) 13 NG/ML VITAMIN D, 25 [id number] 00:00:00 Test Item Value Reference Range Interpretation Comments VITAMIN D, 25 OH (test code = 4958) 13 NG/ML TSH, THIRD [id number] 02:31:01 Test Item Value Reference Range Interpretation Comments TSH, THIRD GENERATION (test code 0.564 UIU/ML 0.400-4.100 = 2821) [id number] 00:00:00 Test Item Value Reference Range Interpretation Comments TSH, THIRD GENERATION (test code 0.564 UIU/ML = 2821) [id number] 00:00:00 Test Item Value Reference Range Interpretation Comments TSH, THIRD GENERATION (test code 0.564 UIU/ML = 2821) [id number] 00:00:00 Test Item Value Reference Range Interpretation Comments TSH, THIRD GENERATION (test code 0.564 UIU/ML = 2821) [id number] 00:00:00 Test Item Value Reference Range Interpretation Comments TSH, THIRD GENERATION (test code 0.564 UIU/ML = 2821) [id number] 00:00:00 Test Item Value Reference Range Interpretation Comments TSH, THIRD GENERATION (test code 0.564 UIU/ML = 2821) [id number] 00:00:00 Test Item Value Reference Range Interpretation Comments TSH, THIRD GENERATION (test code 0.564 UIU/ML = 2821) [id number] 00:00:00 Test Item Value Reference Range Interpretation Comments TSH, THIRD GENERATION (test code 0.564 UIU/ML = 2821) [id number] 00:00:00 Test Item Value Reference Range Interpretation Comments TSH, THIRD GENERATION (test code 0.564 UIU/ML = 2821) [id number] 00:00:00 Test Item Value Reference Range Interpretation Comments TSH, THIRD GENERATION (test code 0.564 UIU/ML = 2821) [id number] 00:00:00 Test Item Value Reference Range Interpretation Comments TSH, THIRD GENERATION (test code 0.564 UIU/ML = 2821) [id number] 00:00:00 Test Item Value Reference Range Interpretation Comments TSH, THIRD GENERATION (test code 0.564 UIU/ML = 2821) [id number] 00:00:00 Test Item Value Reference Range Interpretation Comments TSH, THIRD GENERATION (test code 0.564 UIU/ML = 2821) [id number] 00:00:00 Test Item Value Reference Range Interpretation Comments TSH, THIRD GENERATION (test code 0.564 UIU/ML = 2821) [id number] 00:00:00 Test Item Value Reference Range Interpretation Comments TSH, THIRD GENERATION (test code 0.564 UIU/ML = 2821) LIPID [id number] 23:49:04 Test Item Value Reference Range Interpretation [...] MOREINFORMATION , SEE CLIENT ANNOUNCE MENT AT [email or web address] RISK RATIO LDL/HDL 2.21 RATIO <3.22 (test code = 2238) COMPREHENSIVE METABOLIC [id number] 23:49:04 Test Item Value Reference Range Interpretation Comments GLUCOSE (test code = 98 MG/DL 70-99 2216) BUN (test code = 6 MG/DL 6-20 2207) CREATININE (test 0.40 MG/DL 0.60-1.30 L code = 221) eGFR (2020 CKD-EPI) 126 >60 (test code = 68435) ML/MIN/1.73 CALC BUN/CREAT (test 15 RATIO 6-28 code = 2235) SODIUM (test code = 140 MEQ/L 443-806 8385) POTASSIUM (test code 4.1 MEQ/L 3.5-5.4 = 2227) CHLORIDE (test code 99 MEQ/L 95-107 = 2214) CARBON DIOXIDE (test 26 MEQ/L 19-31 code = 220) CALCIUM (test code = 9.2 MG/DL 8.5-10.5 2208) PROTEIN, TOTAL (test 7.4 G/DL 6.1-8.3 code = 2228) ALBUMIN (test code = 4.3 G/DL 3.5-5.2 2200) CALC GLOBULIN (test 3.1 G/DL 1.9-3.7 code = 2240) CALC A/G RATIO (test 1.4 RATIO 1.0-2.6 code = 2234) BILIRUBIN, TOTAL 0.3 MG/DL See_Comment [Automated message] (test code = 2207) The syste m which generated this result transmit romero reference range : <=1.2. The refe rence range was not u sed to interpret th is result as normal/abnormal . ALKALINE PHOSPHATASE 118 U/L 40-113 H (test code = 2204) AST (test code = 14 U/L 9-40 2217) ALT (test code = 15 U/L 5-40 2218) HEMOGLOBIN [id number] 04:29:07 Test Item Value Reference Range Interpretation Comments HEMOGLOBIN A1c (test 7.5 % 4.2-5.6 H [employer] DI[employer]ES code = 08031) ASSOCIATION IDELINES FOR HGB A1C: PREDIABETES/INC REASED [...] ATE TESTING OR LABORATORY C ONSULTATION. HEMOGLOBIN [id number] 00:00:00 Test Item Value Reference Range Interpretation Comments HEMOGLOBIN A1c (test code = 38352) 7.5 % HEMOGLOBIN [id number] 00:00:00 Test Item Value Reference Range Interpretation Comments HEMOGLOBIN A1c (test code = 82666) 7.5 % COMPREHENSIVE METABOLIC [id number] 00:00:00 Test Item Value Reference Range Interpretation Comments GLUCOSE (test code = 2217) 98 MG/DL BUN (test code = 2208) 6 MG/DL CREATININE (test code = 2214) 0.40 MG/DL eGFR (2020 CKD-EPI) (test 126 ML/MIN/1.73 code = 33796) CALC BUN/CREAT (test code = 15 RATIO [...] (test code = 2219) 15 U/L LIPID [id number] 00:00:00 Test Item Value Reference Range Interpretation Comments CHOLESTEROL (test code = 2210) 176 MG/DL TRIGLYCERIDES (test code = 2232) 120 MG/DL HDL CHOLESTEROL (test code = 2220) 48 MG/DL CALC LDL CHOL (test code = 2237) 106 MG/DL RISK RATIO LDL/HDL (test code = 2.21 RATIO 2238) LIPID [id number] 00:00:00 Test Item Value Reference Range Interpretation Comments CHOLESTEROL (test code = 2210) 176 MG/DL TRIGLYCERIDES (test code = 2232) 120 MG/DL HDL CHOLESTEROL (test code = 2220) 48 MG/DL CALC LDL CHOL (test code = 2237) 106 MG/DL RISK RATIO LDL/HDL (test code = 2.21 RATIO 2238) HEMOGLOBIN [id number] 00:00:00 Test Item Value Reference Range Interpretation Comments HEMOGLOBIN A1c (test code = 19856) 7.5 % HEMOGLOBIN [id number] 00:00:00 Test Item Value Reference Range Interpretation Comments HEMOGLOBIN A1c (test code = 49168) 7.5 % HEMOGLOBIN [id number] 00:00:00 Test Item Value Reference Range Interpretation Comments HEMOGLOBIN A1c (test code = 90911) 7.5 % COMPREHENSIVE METABOLIC [id number] 00:00:00 Test Item Value Reference Range Interpretation Comments GLUCOSE (test code = 2217) 98 MG/DL BUN (test code = 2208) 6 MG/DL CREATININE (test code = 2214) 0.40 MG/DL eGFR (2020 CKD-EPI) (test 126 ML/MIN/1.73 code = 73682) CALC BUN/CREAT (test code = 15 RATIO [...] code = 2219) 15 U/L COMPREHENSIVE METABOLIC [id number] 00:00:00 Test Item Value Reference Range Interpretation Comments GLUCOSE (test code = 2217) 98 MG/DL BUN (test code = 2208) 6 MG/DL CREATININE (test code = 2214) 0.40 MG/DL eGFR (2020 CKD-EPI) (test 126 ML/MIN/1.73 code = 87822) CALC BUN/CREAT (test code = 15 RATIO [...] (test code = 2219) 15 U/L LIPID [id number] 00:00:00 Test Item Value Reference Range Interpretation Comments CHOLESTEROL (test code = 2210) 176 MG/DL TRIGLYCERIDES (test code = 2232) 120 MG/DL HDL CHOLESTEROL (test code = 2220) 48 MG/DL CALC LDL CHOL (test code = 2237) 106 MG/DL RISK RATIO LDL/HDL (test code = 2.21 RATIO 2238) LIPID [id number] 00:00:00 Test Item Value Reference Range Interpretation Comments CHOLESTEROL (test code = 2210) 176 MG/DL TRIGLYCERIDES (test code = 2232) 120 MG/DL HDL CHOLESTEROL (test code = 2220) 48 MG/DL CALC LDL CHOL (test code = 2237) 106 MG/DL RISK RATIO LDL/HDL (test code = 2.21 RATIO 2238) HEMOGLOBIN [id number] 00:00:00 Test Item Value Reference Range Interpretation Comments HEMOGLOBIN A1c (test code = 81548) 7.5 % HEMOGLOBIN [id number] 00:00:00 Test Item Value Reference Range Interpretation Comments HEMOGLOBIN A1c (test code = 17831) 7.5 % HEMOGLOBIN [id number] 00:00:00 Test Item Value Reference Range Interpretation Comments HEMOGLOBIN A1c (test code = 38785) 7.5 % COMPREHENSIVE METABOLIC [id number] 00:00:00 Test Item Value Reference Range Interpretation Comments GLUCOSE (test code = 2217) 98 MG/DL BUN (test code = 2208) 6 MG/DL CREATININE (test code = 2214) 0.40 MG/DL eGFR (2020 CKD-EPI) (test 126 ML/MIN/1.73 code = 49708) CALC BUN/CREAT (test code = 15 RATIO [...] code = 2219) 15 U/L COMPREHENSIVE METABOLIC [id number] 00:00:00 Test Item Value Reference Range Interpretation Comments GLUCOSE (test code = 2217) 98 MG/DL BUN (test code = 2208) 6 MG/DL CREATININE (test code = 2214) 0.40 MG/DL eGFR (2020 CKD-EPI) (test 126 ML/MIN/1.73 code = 88201) CALC BUN/CREAT (test code = 15 RATIO [...] (test code = 2219) 15 U/L LIPID [id number] 00:00:00 Test Item Value Reference Range Interpretation Comments CHOLESTEROL (test code = 2210) 176 MG/DL TRIGLYCERIDES (test code = 2232) 120 MG/DL HDL CHOLESTEROL (test code = 2220) 48 MG/DL CALC LDL CHOL (test code = 2237) 106 MG/DL RISK RATIO LDL/HDL (test code = 2.21 RATIO 2238) LIPID [id number] 00:00:00 Test Item Value Reference Range Interpretation Comments CHOLESTEROL (test code = 2210) 176 MG/DL TRIGLYCERIDES (test code = 2232) 120 MG/DL HDL CHOLESTEROL (test code = 2220) 48 MG/DL CALC LDL CHOL (test code = 2237) 106 MG/DL RISK RATIO LDL/HDL (test code = 2.21 RATIO 2238) HEMOGLOBIN [id number] 00:00:00 Test Item Value Reference Range Interpretation Comments HEMOGLOBIN A1c (test code = 42160) 7.5 % HEMOGLOBIN [id number] 00:00:00 Test Item Value Reference Range Interpretation Comments HEMOGLOBIN A1c (test code = 56791) 7.5 % HEMOGLOBIN [id number] 00:00:00 Test Item Value Reference Range Interpretation Comments HEMOGLOBIN A1c (test code = 33690) 7.5 % COMPREHENSIVE METABOLIC [id number] 00:00:00 Test Item Value Reference Range Interpretation Comments GLUCOSE (test code = 2217) 98 MG/DL BUN (test code = 2208) 6 MG/DL CREATININE (test code = 2214) 0.40 MG/DL eGFR (2020 CKD-EPI) (test 126 ML/MIN/1.73 code = 65893) CALC BUN/CREAT (test code = 15 RATIO [...] code = 2219) 15 U/L COMPREHENSIVE METABOLIC [id number] 00:00:00 Test Item Value Reference Range Interpretation Comments GLUCOSE (test code = 2217) 98 MG/DL BUN (test code = 2208) 6 MG/DL CREATININE (test code = 2214) 0.40 MG/DL eGFR (2020 CKD-EPI) (test 126 ML/MIN/1.73 code = 45335) CALC BUN/CREAT (test code = 15 RATIO [...] (test code = 2219) 15 U/L LIPID [id number] 00:00:00 Test Item Value Reference Range Interpretation Comments CHOLESTEROL (test code = 2210) 176 MG/DL TRIGLYCERIDES (test code = 2232) 120 MG/DL HDL CHOLESTEROL (test code = 2220) 48 MG/DL CALC LDL CHOL (test code = 2237) 106 MG/DL RISK RATIO LDL/HDL (test code = 2.21 RATIO 2238) LIPID [id number] 00:00:00 Test Item Value Reference Range Interpretation Comments CHOLESTEROL (test code = 2210) 176 MG/DL TRIGLYCERIDES (test code = 2232) 120 MG/DL HDL CHOLESTEROL (test code = 2220) 48 MG/DL CALC LDL CHOL (test code = 2237) 106 MG/DL RISK RATIO LDL/HDL (test code = 2.21 RATIO 2238) HEMOGLOBIN [id number] 00:00:00 Test Item Value Reference Range Interpretation Comments HEMOGLOBIN A1c (test code = 80516) 7.5 % HEMOGLOBIN [id number] 00:00:00 Test Item Value Reference Range Interpretation Comments HEMOGLOBIN A1c (test code = 75535) 7.5 % HEMOGLOBIN [id number] 00:00:00 Test Item Value Reference Range Interpretation Comments HEMOGLOBIN A1c (test code = 57559) 7.5 % COMPREHENSIVE METABOLIC [id number] 00:00:00 Test Item Value Reference Range Interpretation Comments GLUCOSE (test code = 2217) 98 MG/DL BUN (test code = 2208) 6 MG/DL CREATININE (test code = 2214) 0.40 MG/DL eGFR (2020 CKD-EPI) (test 126 ML/MIN/1.73 code = 95299) CALC BUN/CREAT (test code = 15 RATIO [...] code = 2219) 15 U/L COMPREHENSIVE METABOLIC [id number] 00:00:00 Test Item Value Reference Range Interpretation Comments GLUCOSE (test code = 2217) 98 MG/DL BUN (test code = 2208) 6 MG/DL CREATININE (test code = 2214) 0.40 MG/DL eGFR (2021 CKD-EPI) (test 126 ML/MIN/1.73 code = 92651) CALC BUN/CREAT (test code = 15 RATIO [...] (test code = 2219) 15 U/L LIPID [id number] 00:00:00 Test Item Value Reference Range Interpretation Comments CHOLESTEROL (test code = 2210) 176 MG/DL TRIGLYCERIDES (test code = 2232) 120 MG/DL HDL CHOLESTEROL (test code = 2220) 48 MG/DL CALC LDL CHOL (test code = 2237) 106 MG/DL RISK RATIO LDL/HDL (test code = 2.21 RATIO 2238) LAB ONLY COVID [id number] 18:13:05COVID DMT InterpretationInterpretation/Recommendations: Molecular NAAT Tests for [...] COVID-19 testing the patient has had at [facility], including molecular NAAT testing (more commonly known as PCR testing and Rapid ID Now testing) and antibody testing. It does not take into account any testingthat a patient has had outside of the [facility] medical record. [facility] LABORATORY SERVICESCOVID NtjlaraQHOT-KtD-0 Rapid ID NOW (no units) ? ? Date ? Value ? 07/27/2020 ? Not Detected ? ? ? 07/09/2020 ? Not Detected ? [facility] ANGIOGRAM [id number] 16:35:58CT SCAN OF THE CHEST WITH CONTRAST [...] edema orsmall airway disease should be considered. [facility], Radiant Results Inft User - 07/27/2020 11:37 [...] pulmonary edema orsmall airway disease should be considered.[facility] CampusMarkel [id number] 06:49:36 Test Item Value Reference Range Interpretation Comments TROPONIN I (test 0.004 ng/mL See_Comment [Automated code = 7130586802) message] The system which generated this result [...] ? Lab Interpretation Normal (test code = 41208-8) [facility] Met[facility] Panel (NA, K, CL, CO2, GLUCOSE, BUN, CREATININE, CA)2020-07-27 06:39:54 Test Item Value Reference Range Interpretation Comments NA (test code = 138 mmol/L 135-145 5960986239) K (test code = 4.2 mmol/L 3.5-5.0 0941520842) CL (test code = 100 mmol/L 98-108 8629407804) CO2 TOTAL (test code = 31 mmol/L 23-31 5421281701) AGAP (test code = 2-16 6083314801) BUN (test code = 18 mg/dL 7-23 7410949856) GLUCOSE (test code = 162 mg/dL 70-110 H 6026761792) CREATININE (test code = 0.57 mg/dL 0.50-1.04 5884719114) CALCIUM (test code = 9.3 mg/dL 8.6-10.6 2961163139) eGFR (test code = mL/min/1.73m2 6114137122) MARIPOSA (test code = MARIPOSA) Association of [...] tests). Lab Interpretation Abnormal (test code = 02974-0) [facility] CampusHepatic Function Panel (ALB, T.PRO, BILI T, BU/BC, ALT, AST, ALK PHOS)2020-07-27 06:39:34 Test Item Value Reference Range Interpretation Comments TOTAL BILI (test code = 0904765337) 0.3 mg/dL 0.1-1.1 BILI UNCON (test code = 2854786274) 0.1 mg/dL 0.1-1.1 BILI CONJ (test code = 6441242706) 0.0 mg/dL 0.0-0.3 T PROTEIN (test code = 7409387989) 8.1 g/dL 6.3-8.2 ALBUMIN (test code = 7551534585) 4.3 g/dL 3.5-5.0 ALK PHOS (test code = 6448366675) 114 U/L 34-122 ALTv (test code = 1742-6) 22 U/L 5-35 AST(SGOT) (test code = 9082214684) 23 U/L 13-40 Lab Interpretation (test code = Normal 38420-2) [facility] CampusCOVID-19 (ID NOW RAPID TESTING)2020-07-27 06:39:33 Test Item Value Reference Range Interpretation Comments SARS-CoV-2 Rapid ID NOW Not Detected Not Detected (test code = 23887-7) MARIPOSA (test code = MARIPOSA) ID NOW COVID-19 Assay is an isothermal nucleic acid amplification test intended for the qualitative detection of nucleic acid from SARS-CoV-2 viral RNA in nasopharyngeal (PREFITTER) specimens. It is used under Emergency Use [...] indicated. Lab Interpretation Normal (test code = 03308-6) [facility] 1 [id number] 06:38:34 No acute cardiopulmonary disease. RL: 3726AFC: [id number] END OF REPORT ORDERING PHYSICIAN: ISHA LOERA HISTORY: ?sob . Shortness of breath. TECHNIQUE: ?Frontal view of the chest. COMPARISON: ?None available. FINDINGS: ? The cardiomediastinalcontours are unremarkable. The lungs are withoutconfluent airspace opacity, mass, or effusion. The osseous structures areunremarkable. [facility], Radiant Results Inft User - 07/27/2020 1:39 AM CDTFormattingof this note might be different from the original.ORDERING PHYSICIAN: ISHA HERNANDEZHISTORY: sob .Shortness of breath.TECHNIQUE: Frontal view of the chest.COMPARISON: None available.FINDINGS: The cardiomediastinal contours are unremarkable. The lungs are withoutconfluent airspace opacity, mass, or effusion. The osseous structures areunremarkable. IMPRESSIONNo acute cardiopulmonary disease.RL: [id number]: [id number] OF REPORT [facility] [id number] 06:24:36 Test Item Value Reference Range Interpretation [...] RDW-SD (test code = 49.0 fL 39.0-49.9 95056-0) RDW-CV (test code = 15.2 % 12.0-15.5 788-0) PLT (test code = See_Comment [Automated 777-3) message] The sy stem which generated this result transmitted reference range : 166 - 358 10*3/ ?L. The reference r palmira was not used to interpret this result as normal/abnormal . MPV (test code = 10.7 fL 9.5-12.9 62776-7) NRBC/100 WBC (test See_Comment [Automat ed code = 9103981669) message] The system which generated this result transmitted reference range : 0.0 - 10.0 /100 WBCs. The refer ence range was not u sed to interpret th is result as normal/abnormal . NRBC x10^3 (test code <0.01 See_Comment [Auto mated = 2741637065) message] The s ystem which generated this result transmitted reference range : 10*3/?L. The reference range was not used to interpret this result as normal/abnormal . GRAN MAT (NEUT) % 67.2 % (test code = 770-8) IMM GRAN % (test code 0.60 % = 5352752243) LYMPH % (test code = 21.7 % 736-9) MONO % (test code = 3.3 % 5905-5) EOS % (test code = 6.6 % 713-8) BASO % (test code = 0.6 % 706-2) GRAN MAT x10^3(ANC) 7.05 10*3/uL 1.88-7.09 (test code = 0649194314) IMM GRAN x10^3 (test 0.06 10*3/uL 0.00-0.06 code = 1169957442) LYMPH x10^3 (test code 2.28 10*3/uL 1.32-3.29 = 731-0) MONO x10^3 (test code 0.35 10*3/uL 0.33-0.92 = 742-7) EOS x10^3 (test code = 0.69 10*3/uL 0.03-0.39 H 711-2) BASO x10^3 (test code 0.06 10*3/uL 0.01-0.07 = 704-7) Lab Interpretation Abnormal (test code = 46700-3) [facility]PO[facility] GLU[facility]SE (AUTOMATED)2020-07-14 13:01:17 Test Item Value Reference Range Interpretation Comments POCT GLU (test code = 8010116939) 107 mg/dL 70-110 Lab Interpretation (test code = Normal 87354-4) [facility] CampusBLOOD CULTURE [id number] 07:01:06 Test Item Value Reference Range Interpretation Comments Blood Culture-Aerobic No organisms No growth Previo us (test code = 89146-6) isolated prelim inary verified result was Culture [...] Culture-Anaerobic isolated preliminar y (test code = 22959-7) verifi ed result was Culture In Progress [...] CDT Lab Interpretation Normal (test code = 48782-9) [facility] CULTURE [id number] 07:01:05 Test Item Value Reference Range Interpretation Comments Blood Culture-Aerobic No organisms No growth Previo us (test code = 91241-7) isolated prelim inary verified result was Culture [...] Culture-Anaerobic isolated preliminar y (test code = 56762-1) verifi ed result was Culture In Progress [...] CDT Lab Interpretation Normal (test code = 69102-4) [facility] GLUCOSE (AUTOMATED)2020-07-14 02:02:19 Test Item Value Reference Range Interpretation Comments POCT GLU (test code = 8228948279) 281 mg/dL 70-110 H Lab Interpretation (test code = Abnormal 07707-6) [facility] CampusMYCOPLASMA PNEUMONIAE ANTIBODY, [id number] 22:06:07 Test Item Value Reference Range Interpretation [...] an 12 months post-infection. Performed By: [address] [place], [place] [address]U aboratory Director: Lisbet Odom MD [Aut omated message] The sy stem which generated this result transmit romero reference range : <=0.76. The reference r palmira was not used to int erpret this result as normal/abnormal . [facility] CampusSPUTUM [id number] 16:48:41 Test Item Value Reference Range Interpretation Comments SPUTUM CULTURE 2+ Respiratory santhosh: (test code = 622-1) Commensal upper respiratory microorganisms only. Gram stain (test Few Epithelial cells code = 664-3) present MARIPOSA (test code = Bacterial pathogens MARIPOSA) associated with lower respiratory infections were not identified, which include Pseudomonas aeruginosa and Staphylococcus aureus (MRSA or MSSA). [facility]. METABOLIC PANEL (05925)2020-07-12 11:23:13 Test Item Value Reference Range Interpretation Comments NA (test code = 137 mmol/L 135-145 3201145223) K (test code = 4.9 mmol/L 3.5-5.0 2859129322) CL (test code = 96 mmol/L 98-108 L 2158343374) CO2 TOTAL (test code = 33 mmol/L 23-31 H 4103205616) AGAP (test code = 2-16 3187589390) BUN (test code = 13 mg/dL 7-23 8419113484) GLUCOSE (test code = 172 mg/dL 70-110 H 5839322772) CREATININE (test code = 0.40 mg/dL 0.50-1.04 L 5480377293) TOTAL BILI (test code = 0.5 mg/dL 0.1-1.5 1503509118) CALCIUM (test code = 9.4 mg/dL 8.6-10.6 5093502602) T PROTEIN (test code = 7.8 g/dL 6.3-8.2 6536199084) ALBUMIN (test code = 4.2 g/dL 3.5-5.0 6758042283) ALK PHOS (test code = 97 U/L 34-122 4314457094) ALTv (test code = 27 U/L 5-35 1742-6) AST(SGOT) (test code = 22 U/L 13-40 1864274137) eGFR (test code = mL/min/1.73m2 0560093811) MARIPOSA (test code = MARIPOSA) Association of [...] tests). Lab Interpretation Abnormal (test code = 40783-3) [facility] WITH [id number] 11:03:13 Test Item Value Reference Range Interpretation Comments WBC (test code = See_Comment [Automated 7757-2) message] The sy stem which generated this result transmitted reference range : 4.30 - 11.10 10*3/?L. The reference range was not used to interpret this result as normal/abnormal . RBC (test code = See_Comment [Automated 484-1) message] The sy stem which generated this [...] RDW-SD (test code = 47.8 fL 39.0-49.9 20691-7) RDW-CV (test code = 14.9 % 12.0-15.5 788-0) PLT (test code = See_Comment [Automated 777-3) message] The sy stem which generated this result transmitted reference range : 166 - 358 10*3/ ?L. The reference r palmira was not used to interpret this result as normal/abnormal . MPV (test code = 10.8 fL 9.5-12.9 68151-0) NRBC/100 WBC (test See_Comment [Automat ed code = 3452345189) message] The system which generated this result transmitted reference range : 0.0 - 10.0 /100 WBCs. The refer ence range was not u sed to interpret th is result as normal/abnormal . NRBC x10^3 (test code <0.01 See_Comment [Auto mated = 3034843062) message] The s ystem which generated this result transmitted reference range : 10*3/?L. The reference range was not used to interpret this result as normal/abnormal . GRAN MAT (NEUT) % 87.7 % (test code = 770-8) IMM GRAN % (test code 1.60 % = 1680992222) LYMPH % (test code = 9.0 % 736-9) MONO % (test code = 1.4 % 5905-5) EOS % (test code = 0.1 % 713-8) BASO % (test code = 0.2 % 706-2) GRAN MAT x10^3(ANC) 8.92 10*3/uL 1.88-7.09 H (test code = 0674089903) IMM GRAN x10^3 (test 0.16 10*3/uL 0.00-0.06 H code = 1623377186) LYMPH x10^3 (test code 0.92 10*3/uL 1.32-3.29 L = 731-0) MONO x10^3 (test code 0.14 10*3/uL 0.33-0.92 L = 742-7) EOS x10^3 (test code = <0.03 0.03-0.39 L 711-2) BASO x10^3 (test code <0.03 0.01-0.07 = 704-7) Lab Interpretation Abnormal (test code = 17234-1) [facility] CampusCT THORAX WO [id number] 22:18:13 Patchy groundglass opacities in the bilateral lungs with more confluentconsolidative opacities in the right lower lobe, consistent with multifocalatypical pneumonia. No pleural effusion or abscess. RL: 4131AFC: [id number] End of report RING PHYSICIAN: MAYTE ADDISON [...] pneumonia. No pleural effusion or abscess.RL: 4131AFC: 63330Smy [facility] [id number] 21:45:45 Test Item Value Reference Range Interpretation Comments FREE T4 (test code = See_Comment [Autom ated message] 1555387369) The system [employer] generated this result transmitted ref erence range: 0.78 - 2 .20 ng/dL:. The ref erence range was not u sed to interpret this result as normal/abnor mal. Lab Interpretation (test Normal code = 41044-3) [facility] [id number] 21:44:29 Test Item Value Reference Range Interpretation Comments FREE T3 (test code = 8671232663) 3.01 pg/mL 2.77-5.27 Lab Interpretation (test code = Normal 64642-3) [facility] CampusN-TERMINAL [id number] 10:51:09 Test Item Value Reference Range Interpretation Comments NT-proBNP (test code 38 pg/mL See_Comment [Autom ated = 0572106062) message] The system which generated this result transmitted reference range : <=125. The reference range was not used to interpret this result as normal/abnormal . MARIPOSA (test code = MARIPOSA) Biotin has been reported to cause a negative bias, interpret results relative to patient's use of biotin. Lab Interpretation Normal (test code = 00194-2) [facility]. METABOLIC PANEL (46150)2020-07-11 10:42:50 Test Item Value Reference Range Interpretation Comments NA (test code = 138 mmol/L 135-145 2265408599) K (test code = 4.5 mmol/L 3.5-5.0 2918727309) CL (test code = 101 mmol/L 98-108 8496523811) CO2 TOTAL (test code = 31 mmol/L 23-31 8233034716) AGAP (test code = 2-16 6452703532) BUN (test code = 15 mg/dL 7-23 1459242031) GLUCOSE (test code = 100 mg/dL 70-110 7333554800) CREATININE (test code = 0.46 mg/dL 0.50-1.04 L 7588233680) TOTAL BILI (test code = 0.5 mg/dL 0.1-1.8 6496492798) CALCIUM (test code = 8.9 mg/dL 8.6-10.6 7876755714) T PROTEIN (test code = 7.1 g/dL 6.3-8.2 0976155656) ALBUMIN (test code = 3.9 g/dL 3.5-5.0 7379857532) ALK PHOS (test code = 80 U/L 34-122 7205188910) ALTv (test code = 19 U/L 5-35 1742-6) AST(SGOT) (test code = 32 U/L 13-40 1994287590) eGFR (test code = mL/min/1.73m2 2876896511) MARIPOSA (test code = MARIPOSA) Association of [...] tests). Lab Interpretation Abnormal (test code = 38195-0) [facility] CampusPNEUMOCOCCAL [id number] 18:45:00 Test Item Value Reference Range Interpretation Comments S. pneumoniae antigen (test code = Negative Negative 0949999233) Lab Interpretation (test code = Normal 59708-7) [facility] CampusURINE [id number] 13:39:03 Test Item Value Reference Range Interpretation Comments URINE CULTURE (test No aerobic growth (< code = 630-4) 1000 CFU/mL) [facility] CampusSEDIMENTATION [id number] 11:16:54 Test Item Value Reference Range Interpretation Comments ESR (test code = See_Comment H [Automated message] 4664061034) The system [employer] generated this result transmitted ref erence range: 0 - 20 m m/HR. The reference r palmira was not used to interpret this result as normal/abnor mal. Lab Interpretation (test Abnormal code = 36032-4) [facility] CampusTROPONIN [id number] 10:13:54 Test Item Value Reference Range Interpretation Comments TROPONIN I (test 0.001 ng/mL See_Comment [Automated code = 9575635002) message] The system which generated this result [...] ? Lab Interpretation Normal (test code = 81128-5) [facility] CampusN-TERMINAL [id number] 10:11:17 Test Item Value Reference Range Interpretation Comments NT-proBNP (test code 76 pg/mL See_Comment [Autom ated = 1103688289) message] The system which generated this result transmitted reference range : <=125. The reference range was not used to interpret this result as normal/abnormal . MARIPOSA (test code = MARIPOSA) Biotin has been reported to cause a negative bias, interpret results relative to patient's use of biotin. Lab Interpretation Normal (test code = 93814-2) [facility] CampusCOMP. METABOLIC PANEL (95076)2020-07-10 10:02:17 Test Item Value Reference Range Interpretation Comments NA (test code = 137 mmol/L 135-145 1723592391) K (test code = 4.7 mmol/L 3.5-5.0 4850527699) CL (test code = 103 mmol/L 98-108 4402789655) CO2 TOTAL (test code 30 mmol/L 23-31 = 6880347397) AGAP (test code = 2-16 0347642139) BUN (test code = 17 mg/dL 7-23 1857780764) GLUCOSE (test code = 107 mg/dL 70-110 6154430733) CREATININE (test code 0.51 mg/dL 0.50-1.04 = 2772122678) TOTAL BILI (test code 0.4 mg/dL 0.1-1.1 = 7066291651) CALCIUM (test code = 9.0 mg/dL 8.6-10.6 5920203057) T PROTEIN (test code 6.9 g/dL 6.3-8.2 = 6359665979) ALBUMIN (test code = 3.8 g/dL 3.5-5.0 0536024202) ALK PHOS (test code = 79 U/L 34-122 1747698118) ALTv (test code = 16 U/L 5-35 1742-6) AST(SGOT) (test code 20 U/L 13-40 = 3445558095) eGFR (test code = mL/min/1.73m2 5063953616) MARIPOSA (test code = MARIPOSA) Association of [...] Range Interpretation Comments MAGNESIUM (test code = 5392112673) 2.1 mg/dL 1.7-2.4 Lab Interpretation (test code = Normal 35253-3) [facility] WITH [id number] 09:51:36 Test Item Value Reference Range Interpretation Comments WBC (test code = See_Comment H [Automated 7490-2) message] The sy stem which generated this [...] RDW-SD (test code = 49.4 fL 39.0-49.9 34008-7) RDW-CV (test code = 15.3 % 12.0-15.5 788-0) PLT (test code = See_Comment [Automated 777-3) message] The sy stem which generated this result transmitted reference range : 166 - 358 10*3/ ?L. The reference r palmira was not used to interpret this result as normal/abnormal . MPV (test code = 10.8 fL 9.5-12.9 83915-7) NRBC/100 WBC (test See_Comment [Automat ed code = 7947564143) message] The system which generated this result transmitted reference range : 0.0 - 10.0 /100 WBCs. The refer ence range was not u sed to interpret th is result as normal/abnormal . NRBC x10^3 (test code <0.01 See_Comment [Auto mated = 1108539117) message] The s ystem which generated this result transmitted reference range : 10*3/?L. The reference range was not used to interpret this result as normal/abnormal . GRAN MAT (NEUT) % 71.0 % (test code = 770-8) IMM GRAN % (test code 0.50 % = 2103070891) LYMPH % (test code = 18.6 % 736-9) MONO % (test code = 5.8 % 5905-5) EOS % (test code = 3.7 % 713-8) BASO % (test code = 0.4 % 706-2) GRAN MAT x10^3(ANC) 8.61 10*3/uL 1.88-7.09 H (test code = 2037092216) IMM GRAN x10^3 (test 0.06 10*3/uL 0.00-0.06 code = 1545796025) LYMPH x10^3 (test code 2.26 10*3/uL 1.32-3.29 = 731-0) MONO x10^3 (test code 0.71 10*3/uL 0.33-0.92 = 742-7) EOS x10^3 (test code = 0.45 10*3/uL 0.03-0.39 H 711-2) BASO x10^3 (test code 0.05 10*3/uL 0.01-0.07 = 704-7) Lab Interpretation Abnormal (test code = 19423-5) [facility] BY [id number] 07:41:20 Test Item Value Reference Range Interpretation Comments Adenovirus (test code = Negative Negative 94109-0) Coronavirus HKU1 (test Negative Negative code = 18295-5) Coronavirus NL63 (test Negative Negative code = 96632-0) Coronavirus 229E (test Negative Negative code = 45286-6) Coronavirus OC43 (test Negative Negative code = 91185-7) Human Metapneumovirus Negative Negative (test code = 88940-5) Human Negative Negative Rhinovirus/Enterovirus (test code = 59354-4) Influenza A (test code = Negative Negative 84569-7) Influenza B (test code = Negative Negative 13042-6) Parainfluenza Virus 1 Negative Negative (test code = 33093-8) Parainfluenza Virus 2 Negative Negative (test code = 28694-2) Parainfluenza Virus 3 Negative Negative (test code = 61225-2) Parainfluenza Virus 4 Negative Negative (test code = 89634-5) Respiratory Syncytial Negative Negative Virus (test code = 08323-4) Bordetella parapertussis Negative Negative (test code = 76139-8) Bordetella pertussis Negative Negative (test code = 21237-1) Chlamydia pneumoniae Negative Negative (test code = 52501-3) Mycoplasma pneumoniae Negative Negative (test code = 15866-3) MARIPOSA (test code = MARIPOSA) Negative:A negative result does not rule-out infection. ?This assay does not test for all potential infectious agents. ? Positive:A positive test result does not necessarily indicate the presence of viable organism. ? Lab Interpretation (test Normal code = 59377-8) [facility] COVID [id number] 06:21:45COVID DMT InterpretationInterpretation/Recommendations: Molecular NAAT Tests for [...] COVID-19 testing the patient has had at [facility], including molecular NAAT testing (more commonly known as PCR testing and Rapid ID Now testing) and antibody testing. It does not take into account any testingthat a patient has had outside of the [facility] medical record. [facility] LABORATORY SERVICESCOVID VeljqstHFIT-HsM-2 Rapid ID NOW (no units) ? ? Date ? Value ? 07/09/2020 ? Not Detected ? [facility] LABORATORY SERVICES [facility] CampusLEGIONELLA URINARY ANTIGEN [id number] 23:26:39 Test Item Value Reference Range Interpretation Comments Legionella Urinary Negative Negative Antigen (test code = 4788084248) MARIPOSA (test code = MARIPOSA) Negative for [...] test. Lab Interpretation (test Normal code = 13711-9) [facility] CampusTROPONIN [id number] 21:06:36 Test Item Value Reference Range Interpretation Comments TROPONIN I (test 0.002 ng/mL See_Comment [Automated code = 3198125344) message] The system which generated this result [...] ? Lab Interpretation Normal (test code = 33377-2) [facility] CampusADC,CLC OR LCC ONLY - INFLUENZA A & B DIRECT [id number] 20:54:43 Test Item Value Reference Range Interpretation Comments Influenza A (test code = 07890-6) Negative Negative Influenza B (test code = 05807-2) Negative Negative Lab Interpretation (test code = Normal 82315-6) [facility] CampusPROCALCITONIN2021-05-27 17:02:04 Test Item Value Reference Interpretation Comments Range Procalcitonin (test <0.02 See_Comment [Automa romero code = 8374365769) message] The system which generated this result [...] p Lab Interpretation Normal (test code = 53802-2) [facility] CampusUREA NITROGEN, URINE [id number] 16:26:49 Test Item Value Reference Range Interpretation Comments UREA N UR (test code = 0244192552) 546 mg/dL [facility] CampusPROTEIN CREAT RATIO URINE [id number] 13:05:11 Test Item Value Reference Range Interpretation Comments T. PROT U (test code = 2888-6) 22 mg/dL CREAT U (test code = 8110186670) 28.1 mg/dL Protein/Creatinine Ratio Urine 0.0-2.0 (test code = 6888061244) [facility] CampusSODIUM, URINE [id number] 13:01:14 Test Item Value Reference Range Interpretation Comments NA URINE (test code = 4813299756) 26 mmol/L [facility] CampusXR CHEST 1 [id number] 12:40:02 Right lower lung well-demarcated consolidation concerning [...] [facility] CampusTHYROID STIMULATING [id number] 12:35:31 Test Item Value Reference Range Interpretation Comments TSH (test code = See_Comment L [Automated message] 8156153923) The system [employer] generated this result transmitted ref erence range: 0.45 - 4 .70 mIU/L. The refe rence range was not u sed to interpret this result as normal/abnor mal. Lab Interpretation (test Abnormal code = 36646-2) [facility] CampusN-TERMINAL [id number] 12:14:52 Test Item Value Reference Range Interpretation Comments NT-proBNP (test code 46 pg/mL See_Comment [Autom ated = 7354581857) message] The system which generated this result transmitted reference range : <=125. The reference range was not used to interpret this result as normal/abnormal . MARIPOSA (test code = MARIPOSA) Biotin has been reported to cause a negative bias, interpret results relative to patient's use of biotin. Lab Interpretation Normal (test code = 97110-5) [facility] CampusURINALYSIS2021-05-27 12:10:35 Test Item Value Reference Range Interpretation Comments APPEARANCE (test code = Clear Clear 7396185620) COLOR (test code = Straw Yellow A 9374358642) PH (test code = 4.8-8.0 7314288784) SP GRAVITY (test code = 1.003-1.030 1245768452) GLU U QUAL (test code = Normal Normal 3296358707) BLOOD (test code = 2+ Negative A 1209056701) KETONES (test code = Negative Negative 3204538826) PROTEIN (test code = Negative Negative 2887-8) UROBILIN (test code = Normal Normal 6425821928) BILIRUBIN (test code = Negative Negative 1271644643) NITRITE (test code = Negative Negative 1656757886) LEUK CLIFFORD (test code = Negative Negative 7963577032) RBC/HPF (test code = See_Comment H [Autom ated message] 9315856728) The system [employer] generated this result transmitted ref erence range: 0 - 3 HP F. The reference range was not used to int erpret this result as normal/abnormal . WBC/HPF (test code = See_Comment [Autom ated message] 2055489896) The system [employer] generated this result transmitted ref erence range: 0 - 5 HP F. The reference range was not used to int erpret this result as normal/abnormal . BACTERIA (test code = Negative Negative 3237843617) SQ EPITH (test code = HPF 5323799016) Lab Interpretation (test Abnormal code = 61201-5) [facility] CampusLIPID PANEL (80893)(TOTAL CHOLESTEROL, TRIGLYCERIDES, HDL)2020-07-09 12:04:52 Test Item Value Reference Range Interpretation Comments CHOL (test code = 183 mg/dL 120-200 2441779461) HDL (test code = 61 mg/dL >50 5191589299) HDLC RATIO (test code = See_Comment [Au tomated message] 8111588276) The system [employer] generated this result transmit romero reference range : <=4.5. The refe rence range was not u sed to interpret th is result as normal/abnormal . TRIG (test code = 68 mg/dL 30-170 9272863618) LDL CHOL (test code = 108 mg/dL See_Comment [Auto mated message] 31799-8) The system [employer] generated this result transmit romero reference range : <=160. The refe rence range was not u sed to interpret th is result as normal/abnormal . VLDL (test code = 14 mg/dL 5-60 9269095894) Lab Interpretation (test Normal code = 40028-5) [facility] CampusPHOSPHORUS2021-05-27 12:04:52 Test Item Value Reference Range Interpretation Comments PHOSPHORUS (test code = 4353593250) 3.7 mg/dL 2.5-5.0 Lab Interpretation (test code = Normal 00235-7) [facility] CampusCREATINE [id number] 12:04:11 Test Item Value Reference Range Interpretation Comments CK (test code = 1357959767) 58 U/L 33-194 Lab Interpretation (test code = Normal 53127-3) [facility] CampusGLYCOSYLATED HEMOGLOBIN (A1C)2020-07-09 11:48:12 Test Item Value Reference Range Interpretation Comments HGB A1C (test code = 6.2 % 4.0-5.7 H 4548-4) MARIPOSA (test code = MARIPOSA) Reference RangesNormal: <5.7%Prediabetes: 5.7 - 6.4%Diabetes: > 6.5% Lab Interpretation (test Abnormal code = 86030-1) [facility] CampusTROPONIN [id number] 11:47:11 Test Item Value Reference Range Interpretation Comments TROPONIN I (test 0.000 ng/mL See_Comment [Automated code = 6377436236) message] The system which generated this result [...] ? Lab Interpretation Normal (test code = 29520-9) [facility] CampusPROTHROMBIN TIME / [id number] 11:40:31 Test Item Value Reference Range Interpretation Comments PROTIME PATIENT (test See_Comment [Auto mated message] code = 5964-2) The system [employer] generated this result transmitted ref erence range: 12.0 - 1 4.7 Seconds. The re ference range was not u sed to interpret this result as normal/abnor mal. INR (test code = 6301-6) Nor mal INR <1.1; Warfarin Therap eutic range 2.0 to 3. 0 or 2.5 to 3.5, dep ending upon the indica tions. Lab Interpretation (test Normal code = 51362-0) [facility] CampusMAGNESIUM2021-05-27 07:28:47 Test Item Value Reference Range Interpretation Comments MAGNESIUM (test code = 2549263636) 2.5 mg/dL 1.7-2.4 H Lab Interpretation (test code = Abnormal 91682-2) [facility] CampusCOMP. METABOLIC PANEL (51488)2020-07-09 07:28:27 Test Item Value Reference Range Interpretation Comments NA (test code = 135 mmol/L 135-145 9833766537) K (test code = 4.6 mmol/L 3.5-5.0 3223953201) CL (test code = 99 mmol/L 98-108 6145280123) CO2 TOTAL (test code = 26 mmol/L 23-31 6719715633) AGAP (test code = 2-16 2077002111) BUN (test code = 17 mg/dL 7-23 9660845478) GLUCOSE (test code = 190 mg/dL 70-110 H 8629457082) CREATININE (test code = 0.42 mg/dL 0.50-1.04 L 8354900222) TOTAL BILI (test code = 0.4 mg/dL 0.1-1.2 4337157591) CALCIUM (test code = 9.5 mg/dL 8.6-10.6 8016806433) T PROTEIN (test code = 8.8 g/dL 6.3-8.2 H 0722536328) ALBUMIN (test code = 4.5 g/dL 3.5-5.0 4628941221) ALK PHOS (test code = 126 U/L 34-122 H 8369503293) ALTv (test code = 20 U/L 5-35 1742-6) AST(SGOT) (test code = 29 U/L 13-40 2100494600) eGFR (test code = mL/min/1.73m2 6517897358) MARIPOSA (test code = MARIPOSA) Association of [...] tests). Lab Interpretation Abnormal (test code = 79270-6) [facility] CampusCOVID-19 (ID NOW RAPID TESTING)2020-07-09 06:30:42 Test Item Value Reference Range Interpretation Comments SARS-CoV-2 Rapid ID NOW Not Detected Not Detected (test code = 50528-7) MARIPOSA (test code = MARIPOSA) ID NOW COVID-19 Assay is an isothermal nucleic acid amplification test intended for the qualitative detection of nucleic acid from SARS-CoV-2 viral RNA in nasopharyngeal (PREFITTER) specimens. It is used under Emergency Use [...] indicated. Lab Interpretation Normal (test code = 44257-0) [facility] WITH [id number] 06:24:59 Test Item Value Reference Range Interpretation Comments WBC (test code = See_Comment H [Automated 7490-2) message] The system which generated this result transmit romero reference range : 4.30 - 11.10 10*3/?L. The reference range was not used to interpret this result as normal/abnormal . RBC (test code = See_Comment [Automated 899-8) message] The system which generated this result [...] RDW-SD (test code = 46.9 fL 39.0-49.9 33847-1) RDW-CV (test code = 14.6 % 12.0-15.5 788-0) PLT (test code = See_Comment [Automated 777-3) message] The system which generated this result transmit romero reference range : 166 - 358 10*3/ ?L. The reference range was not u sed to interpret th is result as normal/abnormal . MPV (test code = 10.9 fL 9.5-12.9 62140-7) NRBC/100 WBC (test See_Comment [Automat ed code = 1406472834) message] The system which generated this result transmit romero reference range : 0.0 - 10.0 /100 WBCs. The reference range was not used to interpret this result as normal/abnormal . NRBC x10^3 (test code See_Comment [Auto mated = 9749478687) message] The system which generated this result transmit romero reference range : 10*3/?L. The reference range was not used to interpret this result as normal/abnormal . GRAN MAT (NEUT) % 85.9 % (test code = 770-8) IMM GRAN % (test code 1.50 % = 8554399812) LYMPH % (test code = 10.9 % 736-9) MONO % (test code = 1.3 % 5905-5) EOS % (test code = 0.1 % 713-8) BASO % (test code = 0.3 % 706-2) GRAN MAT x10^3(ANC) 12.67 10*3/uL 1.88-7.09 H (test code = 3486959073) IMM GRAN x10^3 (test 0.22 10*3/uL 0.00-0.06 H code = 6818245868) LYMPH x10^3 (test code 1.61 10*3/uL 1.32-3.29 = 731-0) MONO x10^3 (test code 0.19 10*3/uL 0.33-0.92 L = 742-7) EOS x10^3 (test code = <0.03 0.03-0.39 L 711-2) BASO x10^3 (test code 0.05 10*3/uL 0.01-0.07 = 704-7) Lab Interpretation Abnormal (test code = 48125-8) [facility] CampusCritical [id number] 06:04:00Miguel Mendoza MD ? ? 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 and dehydration ?Critical care [...] patient or surrogate and blood draw for specimensUnHendrick Medical CenterCB W/AUTO [id number] 00:00:00 Test Item Value Reference Range Interpretation [...] NUCLEATED RBCS (test code = 0.00 K/UL 32946) CBC W/AUTO [id number] 00:00:00 Test Item Value Reference Range Interpretation [...] NUCLEATED RBCS (test code = 0.00 K/UL 50463) HEMOGLOBIN [id number] 00:00:00 Test Item Value Reference Range Interpretation Comments HEMOGLOBIN A1c (test code = 31922) 6.2 % HEMOGLOBIN [id number] 00:00:00 Test Item Value Reference Range Interpretation Comments HEMOGLOBIN A1c (test code = 03393) 6.2 % COMPREHENSIVE METABOLIC [id number] 00:00:00 Test Item Value Reference Range Interpretation Comments GLUCOSE (test code = 2217) 101 MG/DL BUN (test code = 2208) 12 MG/DL CREATININE (test code = 2214) 0.45 MG/DL eGFR AMER. (test code 143 ML/MIN/1.73 = 34827) eGFR NON- AMER. (test 124 ML/MIN/1.73 code = 45298) CALC BUN/CREAT (test code = 27 RATIO [...] (test code = 2219) 17 U/L TROPONIN [id number] 00:00:00 Test Item Value Reference Range Interpretation Comments TROPONIN T (test code = 4017) <0.010 UG/L TROPONIN [id number] 00:00:00 Test Item Value Reference Range Interpretation Comments TROPONIN T (test code = 4017) <0.010 UG/L CBC W/AUTO [id number] 00:00:00 Test Item Value Reference Range Interpretation [...] NUCLEATED RBCS (test code = 0.00 K/UL 22562) CBC W/AUTO [id number] 00:00:00 Test Item Value Reference Range Interpretation [...] NUCLEATED RBCS (test code = 0.00 K/UL 75315) CBC W/AUTO [id number] 00:00:00 Test Item Value Reference Range Interpretation [...] NUCLEATED RBCS (test code = 0.00 K/UL 06501) HEMOGLOBIN [id number] 00:00:00 Test Item Value Reference Range Interpretation Comments HEMOGLOBIN A1c (test code = 88333) 6.2 % HEMOGLOBIN [id number] 00:00:00 Test Item Value Reference Range Interpretation Comments HEMOGLOBIN A1c (test code = 63292) 6.2 % HEMOGLOBIN [id number] 00:00:00 Test Item Value Reference Range Interpretation Comments HEMOGLOBIN A1c (test code = 96425) 6.2 % COMPREHENSIVE METABOLIC [id number] 00:00:00 Test Item Value Reference Range Interpretation Comments GLUCOSE (test code = 2217) 101 MG/DL BUN (test code = 2208) 12 MG/DL CREATININE (test code = 2214) 0.45 MG/DL eGFR AMER. (test code 143 ML/MIN/1.73 = 11078) eGFR NON- AMER. (test 124 ML/MIN/1.73 code = 60875) CALC BUN/CREAT (test code = 27 RATIO [...] code = 2219) 17 U/L COMPREHENSIVE METABOLIC [id number] 00:00:00 Test Item Value Reference Range Interpretation Comments GLUCOSE (test code = 2217) 101 MG/DL BUN (test code = 2208) 12 MG/DL CREATININE (test code = 2214) 0.45 MG/DL eGFR AMER. (test code 143 ML/MIN/1.73 = 91628) eGFR NON- AMER. (test 124 ML/MIN/1.73 code = 72450) CALC BUN/CREAT (test code = 27 RATIO [...] (test code = 2219) 17 U/L TROPONIN [id number] 00:00:00 Test Item Value Reference Range Interpretation Comments TROPONIN T (test code = 4017) <0.010 UG/L TROPONIN [id number] 00:00:00 Test Item Value Reference Range Interpretation Comments TROPONIN T (test code = 4017) <0.010 UG/L CBC W/AUTO [id number] 00:00:00 Test Item Value Reference Range Interpretation [...] NUCLEATED RBCS (test code = 0.00 K/UL 03591) CBC W/AUTO [id number] 00:00:00 Test Item Value Reference Range Interpretation [...] NUCLEATED RBCS (test code = 0.00 K/UL 99486) CBC W/AUTO [id number] 00:00:00 Test Item Value Reference Range Interpretation [...] NUCLEATED RBCS (test code = 0.00 K/UL 64448) HEMOGLOBIN [id number] 00:00:00 Test Item Value Reference Range Interpretation Comments HEMOGLOBIN A1c (test code = 29611) 6.2 % HEMOGLOBIN [id number] 00:00:00 Test Item Value Reference Range Interpretation Comments HEMOGLOBIN A1c (test code = 20395) 6.2 % HEMOGLOBIN [id number] 00:00:00 Test Item Value Reference Range Interpretation Comments HEMOGLOBIN A1c (test code = 57311) 6.2 % COMPREHENSIVE METABOLIC [id number] 00:00:00 Test Item Value Reference Range Interpretation Comments GLUCOSE (test code = 2217) 101 MG/DL BUN (test code = 2208) 12 MG/DL CREATININE (test code = 2214) 0.45 MG/DL eGFR AMER. (test code 143 ML/MIN/1.73 = 06346) eGFR NON- AMER. (test 124 ML/MIN/1.73 code = 86251) CALC BUN/CREAT (test code = 27 RATIO [...] ALKALINE PHOSPHATASE (test 102 U/L code = 220) AST (test code = 2218) 15 U/L ALT (test code = 2219) 17 U/L COMPREHENSIVE METABOLIC [id number] 00:00:00 Test Item Value Reference Range Interpretation Comments GLUCOSE (test code = 2217) 101 MG/DL BUN (test code = 2208) 12 MG/DL CREATININE (test code = 2214) 0.45 MG/DL eGFR AMER. (test code 143 ML/MIN/1.73 = 76540) eGFR NON- AMER. (test 124 ML/MIN/1.73 code = 25226) CALC BUN/CREAT (test code = 27 RATIO [...] (test code = 2219) 17 U/L TROPONIN [id number] 00:00:00 Test Item Value Reference Range Interpretation Comments TROPONIN T (test code = 4017) <0.010 UG/L TROPONIN [id number] 00:00:00 Test Item Value Reference Range Interpretation Comments TROPONIN T (test code = 4017) <0.010 UG/L CBC W/AUTO [id number] 00:00:00 Test Item Value Reference Range Interpretation [...] NUCLEATED RBCS (test code = 0.00 K/UL 66844) CBC W/AUTO [id number] 00:00:00 Test Item Value Reference Range Interpretation [...] NUCLEATED RBCS (test code = 0.00 K/UL 85755) CBC W/AUTO [id number] 00:00:00 Test Item Value Reference Range Interpretation [...] NUCLEATED RBCS (test code = 0.00 K/UL 37482) HEMOGLOBIN [id number] 00:00:00 Test Item Value Reference Range Interpretation Comments HEMOGLOBIN A1c (test code = 34930) 6.2 % HEMOGLOBIN [id number] 00:00:00 Test Item Value Reference Range Interpretation Comments HEMOGLOBIN A1c (test code = 20449) 6.2 % HEMOGLOBIN [id number] 00:00:00 Test Item Value Reference Range Interpretation Comments HEMOGLOBIN A1c (test code = 35844) 6.2 % COMPREHENSIVE METABOLIC [id number] 00:00:00 Test Item Value Reference Range Interpretation Comments GLUCOSE (test code = 2217) 101 MG/DL BUN (test code = 2208) 12 MG/DL CREATININE (test code = 2214) 0.45 MG/DL eGFR AMER. (test code 143 ML/MIN/1.73 = 67094) eGFR NON- AMER. (test 124 ML/MIN/1.73 code = 03295) CALC BUN/CREAT (test code = 27 RATIO [...] code = 2219) 17 U/L COMPREHENSIVE METABOLIC [id number] 00:00:00 Test Item Value Reference Range Interpretation Comments GLUCOSE (test code = 2217) 101 MG/DL BUN (test code = 2208) 12 MG/DL CREATININE (test code = 2214) 0.45 MG/DL eGFR AMER. (test code 143 ML/MIN/1.73 = 55479) eGFR NON- AMER. (test 124 ML/MIN/1.73 code = 71975) CALC BUN/CREAT (test code = 27 RATIO [...] (test code = 2219) 17 U/L TROPONIN [id number] 00:00:00 Test Item Value Reference Range Interpretation Comments TROPONIN T (test code = 4017) <0.010 UG/L TROPONIN [id number] 00:00:00 Test Item Value Reference Range Interpretation Comments TROPONIN T (test code = 4017) <0.010 UG/L CBC W/AUTO [id number] 00:00:00 Test Item Value Reference Range Interpretation [...] NUCLEATED RBCS (test code = 0.00 K/UL 32817) CBC W/AUTO [id number] 00:00:00 Test Item Value Reference Range Interpretation [...] NUCLEATED RBCS (test code = 0.00 K/UL 45644) CBC W/AUTO [id number] 00:00:00 Test Item Value Reference Range Interpretation [...] NUCLEATED RBCS (test code = 0.00 K/UL 53514) HEMOGLOBIN [id number] 00:00:00 Test Item Value Reference Range Interpretation Comments HEMOGLOBIN A1c (test code = 09852) 6.2 % HEMOGLOBIN [id number] 00:00:00 Test Item Value Reference Range Interpretation Comments HEMOGLOBIN A1c (test code = 55183) 6.2 % HEMOGLOBIN [id number] 00:00:00 Test Item Value Reference Range Interpretation Comments HEMOGLOBIN A1c (test code = 65950) 6.2 % COMPREHENSIVE METABOLIC [id number] 00:00:00 Test Item Value Reference Range Interpretation Comments GLUCOSE (test code = 2217) 101 MG/DL BUN (test code = 2208) 12 MG/DL CREATININE (test code = 2214) 0.45 MG/DL eGFR AMER. (test code 143 ML/MIN/1.73 = 11692) eGFR NON- AMER. (test 124 ML/MIN/1.73 code = 01144) CALC BUN/CREAT (test code = 27 RATIO [...] code = 2219) 17 U/L COMPREHENSIVE METABOLIC [id number] 00:00:00 Test Item Value Reference Range Interpretation Comments GLUCOSE (test code = 2217) 101 MG/DL BUN (test code = 2208) 12 MG/DL CREATININE (test code = 2214) 0.45 MG/DL eGFR AMER. (test code 143 ML/MIN/1.73 = 66478) eGFR NON- AMER. (test 124 ML/MIN/1.73 code = 35282) CALC BUN/CREAT (test code = 27 RATIO [...] (test code = 2219) 17 U/L TROPONIN [id number] 00:00:00 Test Item Value Reference Range Interpretation Comments TROPONIN T (test code = 4017) <0.010 UG/L COMPREHENSIVE METABOLIC [id number] 00:00:00 Test Item Value Reference Range Interpretation Comments GLUCOSE (test code = 2217) 125 MG/DL BUN (test code = 2208) 16 MG/DL CREATININE (test code = 2214) 0.54 MG/DL eGFR AMER. (test code 137 ML/MIN/1.73 = 18304) eGFR NON- AMER. (test 118 ML/MIN/1.73 code = 69473) CALC BUN/CREAT (test code = 30 RATIO [...] CALC GLOBULIN (test code = 3.5 G/DL 0) CALC A/G RATIO (test code = 1.2 RATIO 2233) BILIRUBIN, TOTAL (test code = 0.2 MG/DL 2206) ALKALINE PHOSPHATASE (test 114 U/L code = 2204) AST (test code = 2218) 17 U/L ALT (test code = 2219) 15 U/L HEMOGLOBIN [id number] 00:00:00 Test Item Value Reference Range Interpretation Comments HEMOGLOBIN A1c (test code = 37700) 5.9 % HEMOGLOBIN [id number] 00:00:00 Test Item Value Reference Range Interpretation Comments HEMOGLOBIN A1c (test code = 17876) 5.9 % LIPID [id number] 00:00:00 Test Item Value Reference Range Interpretation Comments CHOLESTEROL (test code = 2210) 166 MG/DL TRIGLYCERIDES (test code = 2232) 145 MG/DL HDL CHOLESTEROL (test code = 2220) 48 MG/DL CALC LDL CHOL (test code = 2237) 89 MG/DL RISK RATIO LDL/HDL (test code = 1.85 RATIO 2238) LIPID [id number] 00:00:00 Test Item Value Reference Range Interpretation Comments CHOLESTEROL (test code = 2210) 166 MG/DL TRIGLYCERIDES (test code = 2232) 145 MG/DL HDL CHOLESTEROL (test code = 2220) 48 MG/DL CALC LDL CHOL (test code = 2237) 89 MG/DL RISK RATIO LDL/HDL (test code = 1.85 RATIO 2238) COMPREHENSIVE METABOLIC [id number] 00:00:00 Test Item Value Reference Range Interpretation Comments GLUCOSE (test code = 2217) 125 MG/DL BUN (test code = 2208) 16 MG/DL CREATININE (test code = 2214) 0.54 MG/DL eGFR AMER. (test code 137 ML/MIN/1.73 = 43459) eGFR NON- AMER. (test 118 ML/MIN/1.73 code = 77361) CALC BUN/CREAT (test code = 30 RATIO [...] code = 2219) 15 U/L COMPREHENSIVE METABOLIC [id number] 00:00:00 Test Item Value Reference Range Interpretation Comments GLUCOSE (test code = 2217) 125 MG/DL BUN (test code = 2208) 16 MG/DL CREATININE (test code = 2214) 0.54 MG/DL eGFR AMER. (test code 137 ML/MIN/1.73 = 16719) eGFR NON- AMER. (test 118 ML/MIN/1.73 code = 41098) CALC BUN/CREAT (test code = 30 RATIO [...] (test code = 2219) 15 U/L HEMOGLOBIN [id number] 00:00:00 Test Item Value Reference Range Interpretation Comments HEMOGLOBIN A1c (test code = 85103) 5.9 % HEMOGLOBIN [id number] 00:00:00 Test Item Value Reference Range Interpretation Comments HEMOGLOBIN A1c (test code = 56686) 5.9 % HEMOGLOBIN [id number] 00:00:00 Test Item Value Reference Range Interpretation Comments HEMOGLOBIN A1c (test code = 91278) 5.9 % LIPID [id number] 00:00:00 Test Item Value Reference Range Interpretation Comments CHOLESTEROL (test code = 2210) 166 MG/DL TRIGLYCERIDES (test code = 2232) 145 MG/DL HDL CHOLESTEROL (test code = 2220) 48 MG/DL CALC LDL CHOL (test code = 2237) 89 MG/DL RISK RATIO LDL/HDL (test code = 1.85 RATIO 2238) LIPID [id number] 00:00:00 Test Item Value Reference Range Interpretation Comments CHOLESTEROL (test code = 2210) 166 MG/DL TRIGLYCERIDES (test code = 2232) 145 MG/DL HDL CHOLESTEROL (test code = 2220) 48 MG/DL CALC LDL CHOL (test code = 2237) 89 MG/DL RISK RATIO LDL/HDL (test code = 1.85 RATIO 2238) COMPREHENSIVE METABOLIC [id number] 00:00:00 Test Item Value Reference Range Interpretation Comments GLUCOSE (test code = 2217) 125 MG/DL BUN (test code = 2208) 16 MG/DL CREATININE (test code = 2214) 0.54 MG/DL eGFR AMER. (test code 137 ML/MIN/1.73 = 39999) eGFR NON- AMER. (test 118 ML/MIN/1.73 code = 19768) CALC BUN/CREAT (test code = 30 RATIO [...] code = 2219) 15 U/L COMPREHENSIVE METABOLIC [id number] 00:00:00 Test Item Value Reference Range Interpretation Comments GLUCOSE (test code = 2217) 125 MG/DL BUN (test code = 2208) 16 MG/DL CREATININE (test code = 2214) 0.54 MG/DL eGFR AMER. (test code 137 ML/MIN/1.73 = 50520) eGFR NON- AMER. (test 118 ML/MIN/1.73 code = 36280) CALC BUN/CREAT (test code = 30 RATIO 2235) SODIUM (test code = 2231) 140 MEQ/L POTASSIUM (test code = 2228) 4.7 MEQ/L CHLORIDE (test code = 2215) 105 MEQ/L CARBON DIOXIDE (test code = 25 MEQ/L 2206) CALCIUM (test code = 2209) [...] (test code = 2219) 15 U/L HEMOGLOBIN [id number] 00:00:00 Test Item Value Reference Range Interpretation Comments HEMOGLOBIN A1c (test code = 02104) 5.9 % HEMOGLOBIN [id number] 00:00:00 Test Item Value Reference Range Interpretation Comments HEMOGLOBIN A1c (test code = 62641) 5.9 % HEMOGLOBIN [id number] 00:00:00 Test Item Value Reference Range Interpretation Comments HEMOGLOBIN A1c (test code = 60770) 5.9 % LIPID [id number] 00:00:00 Test Item Value Reference Range Interpretation Comments CHOLESTEROL (test code = 2210) 166 MG/DL TRIGLYCERIDES (test code = 2232) 145 MG/DL HDL CHOLESTEROL (test code = 2220) 48 MG/DL CALC LDL CHOL (test code = 2237) 89 MG/DL RISK RATIO LDL/HDL (test code = 1.85 RATIO 2238) LIPID [id number] 00:00:00 Test Item Value Reference Range Interpretation Comments CHOLESTEROL (test code = 2210) 166 MG/DL TRIGLYCERIDES (test code = 2232) 145 MG/DL HDL CHOLESTEROL (test code = 2220) 48 MG/DL CALC LDL CHOL (test code = 2237) 89 MG/DL RISK RATIO LDL/HDL (test code = 1.85 RATIO 2238) COMPREHENSIVE METABOLIC [id number] 00:00:00 Test Item Value Reference Range Interpretation Comments GLUCOSE (test code = 2217) 125 MG/DL BUN (test code = 2208) 16 MG/DL CREATININE (test code = 2214) 0.54 MG/DL eGFR AMER. (test code 137 ML/MIN/1.73 = 41284) eGFR NON- AMER. (test 118 ML/MIN/1.73 code = 46620) CALC BUN/CREAT (test code = 30 RATIO [...] code = 2219) 15 U/L COMPREHENSIVE METABOLIC [id number] 00:00:00 Test Item Value Reference Range Interpretation Comments GLUCOSE (test code = 2217) 125 MG/DL BUN (test code = 2208) 16 MG/DL CREATININE (test code = 2214) 0.54 MG/DL eGFR AMER. (test code 137 ML/MIN/1.73 = 11709) eGFR NON- AMER. (test 118 ML/MIN/1.73 code = 29424) CALC BUN/CREAT (test code = 30 RATIO [...] (test code = 2219) 15 U/L HEMOGLOBIN [id number] 00:00:00 Test Item Value Reference Range Interpretation Comments HEMOGLOBIN A1c (test code = 88259) 5.9 % HEMOGLOBIN [id number] 00:00:00 Test Item Value Reference Range Interpretation Comments HEMOGLOBIN A1c (test code = 65076) 5.9 % HEMOGLOBIN [id number] 00:00:00 Test Item Value Reference Range Interpretation Comments HEMOGLOBIN A1c (test code = 17238) 5.9 % LIPID [id number] 00:00:00 Test Item Value Reference Range Interpretation Comments CHOLESTEROL (test code = 2210) 166 MG/DL TRIGLYCERIDES (test code = 2232) 145 MG/DL HDL CHOLESTEROL (test code = 2220) 48 MG/DL CALC LDL CHOL (test code = 2237) 89 MG/DL RISK RATIO LDL/HDL (test code = 1.85 RATIO 2238) LIPID [id number] 00:00:00 Test Item Value Reference Range Interpretation Comments CHOLESTEROL (test code = 2210) 166 MG/DL TRIGLYCERIDES (test code = 2232) 145 MG/DL HDL CHOLESTEROL (test code = 2220) 48 MG/DL CALC LDL CHOL (test code = 2237) 89 MG/DL RISK RATIO LDL/HDL (test code = 1.85 RATIO 2238) COMPREHENSIVE METABOLIC [id number] 00:00:00 Test Item Value Reference Range Interpretation Comments GLUCOSE (test code = 2217) 125 MG/DL BUN (test code = 2208) 16 MG/DL CREATININE (test code = 2214) 0.54 MG/DL eGFR AMER. (test code 137 ML/MIN/1.73 = 10765) eGFR NON- AMER. (test 118 ML/MIN/1.73 code = 41038) CALC BUN/CREAT (test code = 30 RATIO [...] code = 2219) 15 U/L COMPREHENSIVE METABOLIC [id number] 00:00:00 Test Item Value Reference Range Interpretation Comments GLUCOSE (test code = 2217) 125 MG/DL BUN (test code = 2208) 16 MG/DL CREATININE (test code = 2214) 0.54 MG/DL eGFR AMER. (test code 137 ML/MIN/1.73 = 40141) eGFR NON- AMER. (test 118 ML/MIN/1.73 code = 50745) CALC BUN/CREAT (test code = 30 RATIO [...] (test code = 2219) 15 U/L HEMOGLOBIN [id number] 00:00:00 Test Item Value Reference Range Interpretation Comments HEMOGLOBIN A1c (test code = 30519) 5.9 % HEMOGLOBIN [id number] 00:00:00 Test Item Value Reference Range Interpretation Comments HEMOGLOBIN A1c (test code = 91804) 5.9 % HEMOGLOBIN [id number] 00:00:00 Test Item Value Reference Range Interpretation Comments HEMOGLOBIN A1c (test code = 52540) 5.9 % LIPID [id number] 00:00:00 Test Item Value Reference Range Interpretation Comments CHOLESTEROL (test code = 2210) 166 MG/DL TRIGLYCERIDES (test code = 2232) 145 MG/DL HDL CHOLESTEROL (test code = 2220) 48 MG/DL CALC LDL CHOL (test code = 2237) 89 MG/DL RISK RATIO LDL/HDL (test code = 1.85 RATIO 2238) CCP [id number] 00:00:00 Test Item Value Reference Range Interpretation Comments CCP IgG (test code = 85560) 184 UNITS CCP [id number] 00:00:00 Test Item Value Reference Range Interpretation Comments CCP IgG (test code = 98931) 184 UNITS CCP [id number] 00:00:00 Test Item Value Reference Range Interpretation Comments CCP IgG (test code = 52112) 184 UNITS CCP [id number] 00:00:00 Test Item Value Reference Range Interpretation Comments CCP IgG (test code = 92891) 184 UNITS CCP [id number] 00:00:00 Test Item Value Reference Range Interpretation Comments CCP IgG (test code = 55684) 184 UNITS CCP [id number] 00:00:00 Test Item Value Reference Range Interpretation Comments CCP IgG (test code = 60820) 184 UNITS CCP [id number] 00:00:00 Test Item Value Reference Range Interpretation Comments CCP IgG (test code = 64660) 184 UNITS CCP [id number] 00:00:00 Test Item Value Reference Range Interpretation Comments CCP IgG (test code = 68702) 184 UNITS CCP [id number] 00:00:00 Test Item Value Reference Range Interpretation Comments CCP IgG (test code = 45453) 184 UNITS CCP [id number] 00:00:00 Test Item Value Reference Range Interpretation Comments CCP IgG (test code = 67048) 184 UNITS CCP [id number] 00:00:00 Test Item Value Reference Range Interpretation Comments CCP IgG (test code = 02242) 184 UNITS CCP [id number] 00:00:00 Test Item Value Reference Range Interpretation Comments CCP IgG (test code = 67763) 184 UNITS CCP [id number] 00:00:00 Test Item Value Reference Range Interpretation Comments CCP IgG (test code = 11013) 184 UNITS CCP [id number] 00:00:00 Test Item Value Reference Range Interpretation Comments CCP IgG (test code = 16970) 184 UNITS C-REACTIVE [id number] 00:00:00 Test Item Value Reference Range Interpretation Comments C-REACTIVE PROTEIN (test code = 1.4 MG/DL 3513) ACUTE HEPATITIS [id number] 00:00:00 Test Item Value Reference Range Interpretation Comments HEPATITIS A IgM (test code = NON-REACTIVE 11279) HEPATITIS B CORE IgM (test code NON-REACTIVE = 4644) HEPATITIS B SURF AG (test code = NON-REACTIVE 2739) HEPATITIS C ANTIBODY (test code NON-REACTIVE = 4675) INTERPRETATION HEPATITIS A: (NOTE) (test code = 2552) INTERPRETATION HEPATITIS B: (NOTE) (test code = 59716) INTERPRETATION HEPATITIS C: (NOTE) (test code = 70731) ACUTE HEPATITIS [id number] 00:00:00 Test Item Value Reference Range Interpretation Comments HEPATITIS A IgM (test code = NON-REACTIVE 44879) HEPATITIS B CORE IgM (test code NON-REACTIVE = 4644) HEPATITIS B SURF AG (test code = NON-REACTIVE 2739) HEPATITIS C ANTIBODY (test code NON-REACTIVE = 4675) INTERPRETATION HEPATITIS A: (NOTE) (test code = 2552) INTERPRETATION HEPATITIS B: (NOTE) (test code = 14492) INTERPRETATION HEPATITIS C: (NOTE) (test code = 92408) C-REACTIVE [id number] 00:00:00 Test Item Value Reference Range Interpretation Comments C-REACTIVE PROTEIN (test code = 1.4 MG/DL 3513) C-REACTIVE [id number] 00:00:00 Test Item Value Reference Range Interpretation Comments C-REACTIVE PROTEIN (test code = 1.4 MG/DL 3513) ACUTE HEPATITIS [id number] 00:00:00 Test Item Value Reference Range Interpretation Comments HEPATITIS A IgM (test code = NON-REACTIVE 62775) HEPATITIS B CORE IgM (test code NON-REACTIVE = 4644) HEPATITIS B SURF AG (test code = NON-REACTIVE 2739) HEPATITIS C ANTIBODY (test code NON-REACTIVE = 4675) INTERPRETATION HEPATITIS A: (NOTE) (test code = 2552) INTERPRETATION HEPATITIS B: (NOTE) (test code = 76432) INTERPRETATION HEPATITIS C: (NOTE) (test code = 45214) ACUTE HEPATITIS [id number] 00:00:00 Test Item Value Reference Range Interpretation Comments HEPATITIS A IgM (test code = NON-REACTIVE 48602) HEPATITIS B CORE IgM (test code NON-REACTIVE = 4644) HEPATITIS B SURF AG (test code = NON-REACTIVE 2739) HEPATITIS C ANTIBODY (test code NON-REACTIVE = 4675) INTERPRETATION HEPATITIS A: (NOTE) (test code = 2552) INTERPRETATION HEPATITIS B: (NOTE) (test code = 54656) INTERPRETATION HEPATITIS C: (NOTE) (test code = 03298) C-REACTIVE [id number] 00:00:00 Test Item Value Reference Range Interpretation Comments C-REACTIVE PROTEIN (test code = 1.4 MG/DL 3513) C-REACTIVE [id number] 00:00:00 Test Item Value Reference Range Interpretation Comments C-REACTIVE PROTEIN (test code = 1.4 MG/DL 3513) ACUTE HEPATITIS [id number] 00:00:00 Test Item Value Reference Range Interpretation Comments HEPATITIS A IgM (test code = NON-REACTIVE 73129) HEPATITIS B CORE IgM (test code NON-REACTIVE = 4644) HEPATITIS B SURF AG (test code = NON-REACTIVE 2739) HEPATITIS C ANTIBODY (test code NON-REACTIVE = 4675) INTERPRETATION HEPATITIS A: (NOTE) (test code = 2552) INTERPRETATION HEPATITIS B: (NOTE) (test code = 80100) INTERPRETATION HEPATITIS C: (NOTE) (test code = 42920) ACUTE HEPATITIS [id number] 00:00:00 Test Item Value Reference Range Interpretation Comments HEPATITIS A IgM (test code = NON-REACTIVE 58372) HEPATITIS B CORE IgM (test code NON-REACTIVE = 4644) HEPATITIS B SURF AG (test code = NON-REACTIVE 2739) HEPATITIS C ANTIBODY (test code NON-REACTIVE = 4675) INTERPRETATION HEPATITIS A: (NOTE) (test code = 2552) INTERPRETATION HEPATITIS B: (NOTE) (test code = 22867) INTERPRETATION HEPATITIS C: (NOTE) (test code = 79625) C-REACTIVE [id number] 00:00:00 Test Item Value Reference Range Interpretation Comments C-REACTIVE PROTEIN (test code = 1.4 MG/DL 3513) C-REACTIVE [id number] 00:00:00 Test Item Value Reference Range Interpretation Comments C-REACTIVE PROTEIN (test code = 1.4 MG/DL 3513) ACUTE HEPATITIS [id number] 00:00:00 Test Item Value Reference Range Interpretation Comments HEPATITIS A IgM (test code = NON-REACTIVE 75406) HEPATITIS B CORE IgM (test code NON-REACTIVE = 4644) HEPATITIS B SURF AG (test code = NON-REACTIVE 2739) HEPATITIS C ANTIBODY (test code NON-REACTIVE = 4675) INTERPRETATION HEPATITIS A: (NOTE) (test code = 2552) INTERPRETATION HEPATITIS B: (NOTE) (test code = 74890) INTERPRETATION HEPATITIS C: (NOTE) (test code = 71276) ACUTE HEPATITIS [id number] 00:00:00 Test Item Value Reference Range Interpretation Comments HEPATITIS A IgM (test code = NON-REACTIVE 31198) HEPATITIS B CORE IgM (test code NON-REACTIVE = 4644) HEPATITIS B SURF AG (test code = NON-REACTIVE 2739) HEPATITIS C ANTIBODY (test code NON-REACTIVE = 4675) INTERPRETATION HEPATITIS A: (NOTE) (test code = 2552) INTERPRETATION HEPATITIS B: (NOTE) (test code = 49814) INTERPRETATION HEPATITIS C: (NOTE) (test code = 62394) C-REACTIVE [id number] 00:00:00 Test Item Value Reference Range Interpretation Comments C-REACTIVE PROTEIN (test code = 1.4 MG/DL 3513) C-REACTIVE [id number] 00:00:00 Test Item Value Reference Range Interpretation Comments C-REACTIVE PROTEIN (test code = 1.4 MG/DL 3513) ACUTE HEPATITIS [id number] 00:00:00 Test Item Value Reference Range Interpretation Comments HEPATITIS A IgM (test code = NON-REACTIVE 30341) HEPATITIS B CORE IgM (test code NON-REACTIVE = 4644) HEPATITIS B SURF AG (test code = NON-REACTIVE 2739) HEPATITIS C ANTIBODY (test code NON-REACTIVE = 4675) INTERPRETATION HEPATITIS A: (NOTE) (test code = 2552) INTERPRETATION HEPATITIS B: (NOTE) (test code = 60880) INTERPRETATION HEPATITIS C: (NOTE) (test code = 76759) ARTHRITIS [id number] 00:00:00 Test Item Value Reference Range Interpretation Comments RHEUMATOID FACTOR, QUANT 54 IU/ML (test code = 3502) URIC ACID (test code = 5.1 MG/DL 2233) SEDIMENTATION RATE (test TEST NOT PERFORMED code = 1017) MM/HOUR ANTI-NUCLEAR ANTIBODIES NEGATIVE (test code = 3506) VITAMIN D, 25 [id number] 00:00:00 Test Item Value Reference Range Interpretation Comments VITAMIN D, 25 OH (test code = 4958) 15 NG/ML ARTHRITIS [id number] 00:00:00 Test Item Value Reference Range Interpretation Comments RHEUMATOID FACTOR, QUANT 54 IU/ML (test code = 3502) URIC ACID (test code = 5.1 MG/DL 2233) SEDIMENTATION RATE (test TEST NOT PERFORMED code = 1017) MM/HOUR ANTI-NUCLEAR ANTIBODIES NEGATIVE (test code = 3506) ARTHRITIS [id number] 00:00:00 Test Item Value Reference Range Interpretation Comments RHEUMATOID FACTOR, QUANT 54 IU/ML (test code = 3502) URIC ACID (test code = 5.1 MG/DL 2233) SEDIMENTATION RATE (test TEST NOT PERFORMED code = 1017) MM/HOUR ANTI-NUCLEAR ANTIBODIES NEGATIVE (test code = 3506) ARTHRITIS [id number] 00:00:00 Test Item Value Reference Range Interpretation Comments RHEUMATOID FACTOR, QUANT 54 IU/ML (test code = 3502) URIC ACID (test code = 5.1 MG/DL 2233) SEDIMENTATION RATE (test TEST NOT PERFORMED code = 1017) MM/HOUR ANTI-NUCLEAR ANTIBODIES NEGATIVE (test code = 3506) VITAMIN D, 25 [id number] 00:00:00 Test Item Value Reference Range Interpretation Comments VITAMIN D, 25 OH (test code = 4958) 15 NG/ML VITAMIN D, 25 [id number] 00:00:00 Test Item Value Reference Range Interpretation Comments VITAMIN D, 25 OH (test code = 4958) 15 NG/ML ARTHRITIS [id number] 00:00:00 Test Item Value Reference Range Interpretation Comments RHEUMATOID FACTOR, QUANT 54 IU/ML (test code = 3502) URIC ACID (test code = 5.1 MG/DL 2233) SEDIMENTATION RATE (test TEST NOT PERFORMED code = 1017) MM/HOUR ANTI-NUCLEAR ANTIBODIES NEGATIVE (test code = 3506) ARTHRITIS [id number] 00:00:00 Test Item Value Reference Range Interpretation Comments RHEUMATOID FACTOR, QUANT 54 IU/ML (test code = 3502) URIC ACID (test code = 5.1 MG/DL 2233) SEDIMENTATION RATE (test TEST NOT PERFORMED code = 1017) MM/HOUR ANTI-NUCLEAR ANTIBODIES NEGATIVE (test code = 3506) ARTHRITIS [id number] 00:00:00 Test Item Value Reference Range Interpretation Comments RHEUMATOID FACTOR, QUANT 54 IU/ML (test code = 3502) URIC ACID (test code = 5.1 MG/DL 2233) SEDIMENTATION RATE (test TEST NOT PERFORMED code = 1017) MM/HOUR ANTI-NUCLEAR ANTIBODIES NEGATIVE (test code = 3506) VITAMIN D, 25 [id number] 00:00:00 Test Item Value Reference Range Interpretation Comments VITAMIN D, 25 OH (test code = 4958) 15 NG/ML VITAMIN D, 25 [id number] 00:00:00 Test Item Value Reference Range Interpretation Comments VITAMIN D, 25 OH (test code = 4958) 15 NG/ML ARTHRITIS [id number] 00:00:00 Test Item Value Reference Range Interpretation Comments RHEUMATOID FACTOR, QUANT 54 IU/ML (test code = 3502) URIC ACID (test code = 5.1 MG/DL 2233) SEDIMENTATION RATE (test TEST NOT PERFORMED code = 1017) MM/HOUR ANTI-NUCLEAR ANTIBODIES NEGATIVE (test code = 3506) ARTHRITIS [id number] 00:00:00 Test Item Value Reference Range Interpretation Comments RHEUMATOID FACTOR, QUANT 54 IU/ML (test code = 3502) URIC ACID (test code = 5.1 MG/DL 2233) SEDIMENTATION RATE (test TEST NOT PERFORMED code = 1017) MM/HOUR ANTI-NUCLEAR ANTIBODIES NEGATIVE (test code = 3506) ARTHRITIS [id number] 00:00:00 Test Item Value Reference Range Interpretation Comments RHEUMATOID FACTOR, QUANT 54 IU/ML (test code = 3502) URIC ACID (test code = 5.1 MG/DL 2233) SEDIMENTATION RATE (test TEST NOT PERFORMED code = 1017) MM/HOUR ANTI-NUCLEAR ANTIBODIES NEGATIVE (test code = 3506) VITAMIN D, 25 [id number] 00:00:00 Test Item Value Reference Range Interpretation Comments VITAMIN D, 25 OH (test code = 4958) 15 NG/ML VITAMIN D, 25 [id number] 00:00:00 Test Item Value Reference Range Interpretation Comments VITAMIN D, 25 OH (test code = 4958) 15 NG/ML ARTHRITIS [id number] 00:00:00 Test Item Value Reference Range Interpretation Comments RHEUMATOID FACTOR, QUANT 54 IU/ML (test code = 3502) URIC ACID (test code = 5.1 MG/DL 2233) SEDIMENTATION RATE (test TEST NOT PERFORMED code = 1017) MM/HOUR ANTI-NUCLEAR ANTIBODIES NEGATIVE (test code = 3506) ARTHRITIS [id number] 00:00:00 Test Item Value Reference Range Interpretation Comments RHEUMATOID FACTOR, QUANT 54 IU/ML (test code = 3502) URIC ACID (test code = 5.1 MG/DL 2233) SEDIMENTATION RATE (test TEST NOT PERFORMED code = 1017) MM/HOUR ANTI-NUCLEAR ANTIBODIES NEGATIVE (test code = 3506) ARTHRITIS [id number] 00:00:00 Test Item Value Reference Range Interpretation Comments RHEUMATOID FACTOR, QUANT 54 IU/ML (test code = 3502) URIC ACID (test code = 5.1 MG/DL 2233) SEDIMENTATION RATE (test TEST NOT PERFORMED code = 1017) MM/HOUR ANTI-NUCLEAR ANTIBODIES NEGATIVE (test code = 3506) VITAMIN D, 25 [id number] 00:00:00 Test Item Value Reference Range Interpretation Comments VITAMIN D, 25 OH (test code = 4958) 15 NG/ML VITAMIN D, 25 [id number] 00:00:00 Test Item Value Reference Range Interpretation Comments VITAMIN D, 25 OH (test code = 4958) 15 NG/ML ARTHRITIS [id number] 00:00:00 Test Item Value Reference Range Interpretation Comments RHEUMATOID FACTOR, QUANT 54 IU/ML (test code = 3502) URIC ACID (test code = 5.1 MG/DL 2233) SEDIMENTATION RATE (test TEST NOT PERFORMED code = 1017) MM/HOUR ANTI-NUCLEAR ANTIBODIES NEGATIVE (test code = 3506) HIGH SENSITIVITY [id number] 00:00:00 Test Item Value Reference Range Interpretation Comments HIGH SENSITIVITY CRP (test code = 10.9 MG/L 07359) SEDIMENTATION [id number] 00:00:00 Test Item Value Reference Range Interpretation Comments SEDIMENTATION RATE (test code = 22 MM/HOUR 1017) COMPREHENSIVE METABOLIC [id number] 00:00:00 Test Item Value Reference Range Interpretation Comments GLUCOSE (test code = 2217) 86 MG/DL BUN (test code = 2208) 13 MG/DL CREATININE (test code = 2214) 0.44 MG/DL eGFR AMER. (test code 148 ML/MIN/1.73 = 71321) eGFR NON- AMER. (test 128 ML/MIN/1.73 code = 04638) CALC BUN/CREAT (test code = 30 RATIO [...] code = 2219) 12 U/L COMPREHENSIVE METABOLIC [id number] 00:00:00 Test Item Value Reference Range Interpretation Comments GLUCOSE (test code = 2217) 86 MG/DL BUN (test code = 2208) 13 MG/DL CREATININE (test code = 2214) 0.44 MG/DL eGFR AMER. (test code 148 ML/MIN/1.73 = 25732) eGFR NON- AMER. (test 128 ML/MIN/1.73 code = 88646) CALC BUN/CREAT (test code = 30 RATIO [...] code = 2219) 12 U/L HIGH SENSITIVITY [id number] 00:00:00 Test Item Value Reference Range Interpretation Comments HIGH SENSITIVITY CRP (test code = 10.9 MG/L 50924) HIGH SENSITIVITY [id number] 00:00:00 Test Item Value Reference Range Interpretation Comments HIGH SENSITIVITY CRP (test code = 10.9 MG/L 81927) SEDIMENTATION [id number] 00:00:00 Test Item Value Reference Range Interpretation Comments SEDIMENTATION RATE (test code = 22 MM/HOUR 1017) SEDIMENTATION [id number] 00:00:00 Test Item Value Reference Range Interpretation Comments SEDIMENTATION RATE (test code = 22 MM/HOUR 1017) COMPREHENSIVE METABOLIC [id number] 00:00:00 Test Item Value Reference Range Interpretation Comments GLUCOSE (test code = 2217) 86 MG/DL BUN (test code = 2208) 13 MG/DL CREATININE (test code = 2214) 0.44 MG/DL eGFR AMER. (test code 148 ML/MIN/1.73 = 93470) eGFR NON- AMER. (test 128 ML/MIN/1.73 code = 13591) CALC BUN/CREAT (test code = 30 RATIO [...] code = 2219) 12 U/L COMPREHENSIVE METABOLIC [id number] 00:00:00 Test Item Value Reference Range Interpretation Comments GLUCOSE (test code = 2217) 86 MG/DL BUN (test code = 2208) 13 MG/DL CREATININE (test code = 2214) 0.44 MG/DL eGFR AMER. (test code 148 ML/MIN/1.73 = 60540) eGFR NON- AMER. (test 128 ML/MIN/1.73 code = 16646) CALC BUN/CREAT (test code = 30 RATIO [...] code = 2219) 12 U/L HIGH SENSITIVITY [id number] 00:00:00 Test Item Value Reference Range Interpretation Comments HIGH SENSITIVITY CRP (test code = 10.9 MG/L 07886) HIGH SENSITIVITY [id number] 00:00:00 Test Item Value Reference Range Interpretation Comments HIGH SENSITIVITY CRP (test code = 10.9 MG/L 02977) SEDIMENTATION [id number] 00:00:00 Test Item Value Reference Range Interpretation Comments SEDIMENTATION RATE (test code = 22 MM/HOUR 1017) SEDIMENTATION [id number] 00:00:00 Test Item Value Reference Range Interpretation Comments SEDIMENTATION RATE (test code = 22 MM/HOUR 1017) COMPREHENSIVE METABOLIC [id number] 00:00:00 Test Item Value Reference Range Interpretation Comments GLUCOSE (test code = 2217) 86 MG/DL BUN (test code = 2208) 13 MG/DL CREATININE (test code = 2214) 0.44 MG/DL eGFR AMER. (test code 148 ML/MIN/1.73 = 61595) eGFR NON- AMER. (test 128 ML/MIN/1.73 code = 49113) CALC BUN/CREAT (test code = 30 RATIO [...] code = 2219) 12 U/L COMPREHENSIVE METABOLIC [id number] 00:00:00 Test Item Value Reference Range Interpretation Comments GLUCOSE (test code = 2217) 86 MG/DL BUN (test code = 2208) 13 MG/DL CREATININE (test code = 2214) 0.44 MG/DL eGFR AMER. (test code 148 ML/MIN/1.73 = 89605) eGFR NON- AMER. (test 128 ML/MIN/1.73 code = 99826) CALC BUN/CREAT (test code = 30 RATIO [...] code = 2219) 12 U/L HIGH SENSITIVITY [id number] 00:00:00 Test Item Value Reference Range Interpretation Comments HIGH SENSITIVITY CRP (test code = 10.9 MG/L 60494) HIGH SENSITIVITY [id number] 00:00:00 Test Item Value Reference Range Interpretation Comments HIGH SENSITIVITY CRP (test code = 10.9 MG/L 59206) SEDIMENTATION [id number] 00:00:00 Test Item Value Reference Range Interpretation Comments SEDIMENTATION RATE (test code = 22 MM/HOUR 1017) SEDIMENTATION [id number] 00:00:00 Test Item Value Reference Range Interpretation Comments SEDIMENTATION RATE (test code = 22 MM/HOUR 1017) COMPREHENSIVE METABOLIC [id number] 00:00:00 Test Item Value Reference Range Interpretation Comments GLUCOSE (test code = 2217) 86 MG/DL BUN (test code = 2208) 13 MG/DL CREATININE (test code = 2214) 0.44 MG/DL eGFR AMER. (test code 148 ML/MIN/1.73 = 24100) eGFR NON- AMER. (test 128 ML/MIN/1.73 code = 93558) CALC BUN/CREAT (test code = 30 RATIO [...] code = 2219) 12 U/L COMPREHENSIVE METABOLIC [id number] 00:00:00 Test Item Value Reference Range Interpretation Comments GLUCOSE (test code = 2217) 86 MG/DL BUN (test code = 2208) 13 MG/DL CREATININE (test code = 2214) 0.44 MG/DL eGFR AMER. (test code 148 ML/MIN/1.73 = 24727) eGFR NON- AMER. (test 128 ML/MIN/1.73 code = 32877) CALC BUN/CREAT (test code = 30 RATIO [...] code = 2219) 12 U/L HIGH SENSITIVITY [id number] 00:00:00 Test Item Value Reference Range Interpretation Comments HIGH SENSITIVITY CRP (test code = 10.9 MG/L 97289) HIGH SENSITIVITY [id number] 00:00:00 Test Item Value Reference Range Interpretation Comments HIGH SENSITIVITY CRP (test code = 10.9 MG/L 46510) COMPREHENSIVE METABOLIC [id number] 00:00:00 Test Item Value Reference Range Interpretation Comments GLUCOSE (test code = 2217) 86 MG/DL BUN (test code = 2208) 13 MG/DL CREATININE (test code = 2214) 0.44 MG/DL eGFR AMER. (test code 148 ML/MIN/1.73 = 03258) eGFR NON- AMER. (test 128 ML/MIN/1.73 code = 34881) CALC BUN/CREAT (test code = 30 RATIO [...] (test code = 2219) 12 U/L SEDIMENTATION [id number] 00:00:00 Test Item Value Reference Range Interpretation Comments SEDIMENTATION RATE (test code = 22 MM/HOUR 1017) SEDIMENTATION [id number] 00:00:00 Test Item Value Reference Range Interpretation Comments SEDIMENTATION RATE (test code = 22 MM/HOUR 1017) CBC W/AUTO [id number] 00:00:00 Test Item Value Reference Range Interpretation [...] (test code = 1016) (NOTE) CBC W/AUTO [id number] 00:00:00 Test Item Value Reference Range Interpretation [...] COMMENTS (test code = 1016) (NOTE) LIPID [id number] 00:00:00 Test Item Value Reference Range Interpretation Comments CHOLESTEROL (test code = 2210) 127 MG/DL TRIGLYCERIDES (test code = 2232) 108 MG/DL HDL CHOLESTEROL (test code = 2220) 33 MG/DL CALC LDL CHOL (test code = 2237) 72 MG/DL RISK RATIO LDL/HDL (test code = 2.19 RATIO 2238) COMPREHENSIVE METABOLIC [id number] 00:00:00 Test Item Value Reference Range Interpretation Comments GLUCOSE (test code = 2217) 99 MG/DL BUN (test code = 2208) 7 MG/DL CREATININE (test code = 2214) 0.47 MG/DL eGFR AMER. (test code 146 ML/MIN/1.73 = 83659) eGFR NON- AMER. (test 126 ML/MIN/1.73 code = 99136) CALC BUN/CREAT (test code = 15 RATIO [...] (test code = 2219) 24 U/L HEMOGLOBIN [id number] 00:00:00 Test Item Value Reference Range Interpretation Comments HEMOGLOBIN A1c (test code = 32167) 6.1 % HEMOGLOBIN [id number] 00:00:00 Test Item Value Reference Range Interpretation Comments HEMOGLOBIN A1c (test code = 26691) 6.1 % [id number] 00:00:00 Test Item Value Reference Range Interpretation Comments TSH (test code = 2821) 1.06 UIU/ML [id number] 00:00:00 Test Item Value Reference Range Interpretation Comments TSH (test code = 2821) 1.06 UIU/ML CBC W/AUTO [id number] 00:00:00 Test Item Value Reference Range Interpretation [...] (test code = 1016) (NOTE) CBC W/AUTO [id number] 00:00:00 Test Item Value Reference Range Interpretation [...] (test code = 1016) (NOTE) CBC W/AUTO [id number] 00:00:00 Test Item Value Reference Range Interpretation [...] COMMENTS (test code = 1016) (NOTE) LIPID [id number] 00:00:00 Test Item Value Reference Range Interpretation Comments CHOLESTEROL (test code = 2210) 127 MG/DL TRIGLYCERIDES (test code = 2232) 108 MG/DL HDL CHOLESTEROL (test code = 2220) 33 MG/DL CALC LDL CHOL (test code = 2237) 72 MG/DL RISK RATIO LDL/HDL (test code = 2.19 RATIO 2238) LIPID [id number] 00:00:00 Test Item Value Reference Range Interpretation Comments CHOLESTEROL (test code = 2210) 127 MG/DL TRIGLYCERIDES (test code = 2232) 108 MG/DL HDL CHOLESTEROL (test code = 2220) 33 MG/DL CALC LDL CHOL (test code = 2237) 72 MG/DL RISK RATIO LDL/HDL (test code = 2.19 RATIO 2238) COMPREHENSIVE METABOLIC [id number] 00:00:00 Test Item Value Reference Range Interpretation Comments GLUCOSE (test code = 2217) 99 MG/DL BUN (test code = 2208) 7 MG/DL CREATININE (test code = 2214) 0.47 MG/DL eGFR AMER. (test code 146 ML/MIN/1.73 = 39781) eGFR NON- AMER. (test 126 ML/MIN/1.73 code = 17585) CALC BUN/CREAT (test code = 15 RATIO [...] code = 2219) 24 U/L COMPREHENSIVE METABOLIC [id number] 00:00:00 Test Item Value Reference Range Interpretation Comments GLUCOSE (test code = 2217) 99 MG/DL BUN (test code = 2208) 7 MG/DL CREATININE (test code = 2214) 0.47 MG/DL eGFR AMER. (test code 146 ML/MIN/1.73 = 43256) eGFR NON- AMER. (test 126 ML/MIN/1.73 code = 86917) CALC BUN/CREAT (test code = 15 RATIO [...] (test code = 2219) 24 U/L HEMOGLOBIN [id number] 00:00:00 Test Item Value Reference Range Interpretation Comments HEMOGLOBIN A1c (test code = 73208) 6.1 % HEMOGLOBIN [id number] 00:00:00 Test Item Value Reference Range Interpretation Comments HEMOGLOBIN A1c (test code = 86201) 6.1 % HEMOGLOBIN [id number] 00:00:00 Test Item Value Reference Range Interpretation Comments HEMOGLOBIN A1c (test code = 83892) 6.1 % [id number] 00:00:00 Test Item Value Reference Range Interpretation Comments TSH (test code = 2821) 1.06 UIU/ML [id number] 00:00:00 Test Item Value Reference Range Interpretation Comments TSH (test code = 2821) 1.06 UIU/ML [id number] 00:00:00 Test Item Value Reference Range Interpretation Comments TSH (test code = 2821) 1.06 UIU/ML CBC W/AUTO [id number] 00:00:00 Test Item Value Reference Range Interpretation [...] (test code = 1016) (NOTE) CBC W/AUTO [id number] 00:00:00 Test Item Value Reference Range Interpretation [...] (test code = 1016) (NOTE) CBC W/AUTO [id number] 00:00:00 Test Item Value Reference Range Interpretation [...] COMMENTS (test code = 1016) (NOTE) LIPID [id number] 00:00:00 Test Item Value Reference Range Interpretation Comments CHOLESTEROL (test code = 2210) 127 MG/DL TRIGLYCERIDES (test code = 2232) 108 MG/DL HDL CHOLESTEROL (test code = 2220) 33 MG/DL CALC LDL CHOL (test code = 2237) 72 MG/DL RISK RATIO LDL/HDL (test code = 2.19 RATIO 2238) LIPID [id number] 00:00:00 Test Item Value Reference Range Interpretation Comments CHOLESTEROL (test code = 2210) 127 MG/DL TRIGLYCERIDES (test code = 2232) 108 MG/DL HDL CHOLESTEROL (test code = 2220) 33 MG/DL CALC LDL CHOL (test code = 2237) 72 MG/DL RISK RATIO LDL/HDL (test code = 2.19 RATIO 2238) COMPREHENSIVE METABOLIC [id number] 00:00:00 Test Item Value Reference Range Interpretation Comments GLUCOSE (test code = 2217) 99 MG/DL BUN (test code = 2208) 7 MG/DL CREATININE (test code = 2214) 0.47 MG/DL eGFR AMER. (test code 146 ML/MIN/1.73 = 33732) eGFR NON- AMER. (test 126 ML/MIN/1.73 code = 16881) CALC BUN/CREAT (test code = 15 RATIO [...] code = 2219) 24 U/L COMPREHENSIVE METABOLIC [id number] 00:00:00 Test Item Value Reference Range Interpretation Comments GLUCOSE (test code = 2217) 99 MG/DL BUN (test code = 2208) 7 MG/DL CREATININE (test code = 2214) 0.47 MG/DL eGFR AMER. (test code 146 ML/MIN/1.73 = 60888) eGFR NON- AMER. (test 126 ML/MIN/1.73 code = 35395) CALC BUN/CREAT (test code = 15 RATIO [...] (test code = 2219) 24 U/L HEMOGLOBIN [id number] 00:00:00 Test Item Value Reference Range Interpretation Comments HEMOGLOBIN A1c (test code = 98661) 6.1 % HEMOGLOBIN [id number] 00:00:00 Test Item Value Reference Range Interpretation Comments HEMOGLOBIN A1c (test code = 81207) 6.1 % HEMOGLOBIN [id number] 00:00:00 Test Item Value Reference Range Interpretation Comments HEMOGLOBIN A1c (test code = 24369) 6.1 % [id number] 00:00:00 Test Item Value Reference Range Interpretation Comments TSH (test code = 2821) 1.06 UIU/ML [id number] 00:00:00 Test Item Value Reference Range Interpretation Comments TSH (test code = 2821) 1.06 UIU/ML [id number] 00:00:00 Test Item Value Reference Range Interpretation Comments TSH (test code = 2821) 1.06 UIU/ML CBC W/AUTO [id number] 00:00:00 Test Item Value Reference Range Interpretation [...] (test code = 1016) (NOTE) CBC W/AUTO [id number] 00:00:00 Test Item Value Reference Range Interpretation [...] (test code = 1016) (NOTE) CBC W/AUTO [id number] 00:00:00 Test Item Value Reference Range Interpretation [...] COMMENTS (test code = 1016) (NOTE) LIPID [id number] 00:00:00 Test Item Value Reference Range Interpretation Comments CHOLESTEROL (test code = 2210) 127 MG/DL TRIGLYCERIDES (test code = 2232) 108 MG/DL HDL CHOLESTEROL (test code = 2220) 33 MG/DL CALC LDL CHOL (test code = 2237) 72 MG/DL RISK RATIO LDL/HDL (test code = 2.19 RATIO 2238) LIPID [id number] 00:00:00 Test Item Value Reference Range Interpretation Comments CHOLESTEROL (test code = 2210) 127 MG/DL TRIGLYCERIDES (test code = 2232) 108 MG/DL HDL CHOLESTEROL (test code = 2220) 33 MG/DL CALC LDL CHOL (test code = 2237) 72 MG/DL RISK RATIO LDL/HDL (test code = 2.19 RATIO 2238) COMPREHENSIVE METABOLIC [id number] 00:00:00 Test Item Value Reference Range Interpretation Comments GLUCOSE (test code = 2217) 99 MG/DL BUN (test code = 2208) 7 MG/DL CREATININE (test code = 2214) 0.47 MG/DL eGFR AMER. (test code 146 ML/MIN/1.73 = 45521) eGFR NON- AMER. (test 126 ML/MIN/1.73 code = 53849) CALC BUN/CREAT (test code = 15 RATIO [...] code = 2219) 24 U/L COMPREHENSIVE METABOLIC [id number] 00:00:00 Test Item Value Reference Range Interpretation Comments GLUCOSE (test code = 2217) 99 MG/DL BUN (test code = 2208) 7 MG/DL CREATININE (test code = 2214) 0.47 MG/DL eGFR AMER. (test code 146 ML/MIN/1.73 = 49648) eGFR NON- AMER. (test 126 ML/MIN/1.73 code = 17242) CALC BUN/CREAT (test code = 15 RATIO [...] (test code = 2219) 24 U/L HEMOGLOBIN [id number] 00:00:00 Test Item Value Reference Range Interpretation Comments HEMOGLOBIN A1c (test code = 58609) 6.1 % HEMOGLOBIN [id number] 00:00:00 Test Item Value Reference Range Interpretation Comments HEMOGLOBIN A1c (test code = 36861) 6.1 % HEMOGLOBIN [id number] 00:00:00 Test Item Value Reference Range Interpretation Comments HEMOGLOBIN A1c (test code = 53518) 6.1 % [id number] 00:00:00 Test Item Value Reference Range Interpretation Comments TSH (test code = 2821) 1.06 UIU/ML [id number] 00:00:00 Test Item Value Reference Range Interpretation Comments TSH (test code = 2821) 1.06 UIU/ML [id number] 00:00:00 Test Item Value Reference Range Interpretation Comments TSH (test code = 2821) 1.06 UIU/ML CBC W/AUTO [id number] 00:00:00 Test Item Value Reference Range Interpretation [...] (test code = 1016) (NOTE) CBC W/AUTO [id number] 00:00:00 Test Item Value Reference Range Interpretation [...] (test code = 1016) (NOTE) CBC W/AUTO [id number] 00:00:00 Test Item Value Reference Range Interpretation [...] COMMENTS (test code = 1016) (NOTE) LIPID [id number] 00:00:00 Test Item Value Reference Range Interpretation Comments CHOLESTEROL (test code = 2210) 127 MG/DL TRIGLYCERIDES (test code = 2232) 108 MG/DL HDL CHOLESTEROL (test code = 2220) 33 MG/DL CALC LDL CHOL (test code = 2237) 72 MG/DL RISK RATIO LDL/HDL (test code = 2.19 RATIO 2238) LIPID [id number] 00:00:00 Test Item Value Reference Range Interpretation Comments CHOLESTEROL (test code = 2210) 127 MG/DL TRIGLYCERIDES (test code = 2232) 108 MG/DL HDL CHOLESTEROL (test code = 2220) 33 MG/DL CALC LDL CHOL (test code = 2237) 72 MG/DL RISK RATIO LDL/HDL (test code = 2.19 RATIO 2238) COMPREHENSIVE METABOLIC [id number] 00:00:00 Test Item Value Reference Range Interpretation Comments GLUCOSE (test code = 2217) 99 MG/DL BUN (test code = 2208) 7 MG/DL CREATININE (test code = 2214) 0.47 MG/DL eGFR AMER. (test code 146 ML/MIN/1.73 = 32005) eGFR NON- AMER. (test 126 ML/MIN/1.73 code = 37265) CALC BUN/CREAT (test code = 15 RATIO [...] CALC GLOBULIN (test code = 4.2 G/DL 0) CALC A/G RATIO (test code = 0.9 RATIO 2233) BILIRUBIN, TOTAL (test code = 0.3 MG/DL 2206) ALKALINE PHOSPHATASE (test 109 U/L code = 2204) AST (test code = 2218) 23 U/L ALT (test code = 2219) 24 U/L COMPREHENSIVE METABOLIC [id number] 00:00:00 Test Item Value Reference Range Interpretation Comments GLUCOSE (test code = 2217) 99 MG/DL BUN (test code = 2208) 7 MG/DL CREATININE (test code = 2214) 0.47 MG/DL eGFR AMER. (test code 146 ML/MIN/1.73 = 83604) eGFR NON- AMER. (test 126 ML/MIN/1.73 code = 69986) CALC BUN/CREAT (test code = 15 RATIO 2235) SODIUM (test code = 2231) 142 MEQ/L POTASSIUM (test code = 2228) 4.2 MEQ/L CHLORIDE (test code = 2215) 103 MEQ/L CARBON DIOXIDE (test code = 24 MEQ/L 2206) CALCIUM (test code = 2209) 9.4 MG/DL PROTEIN, TOTAL (test code = 8.0 G/DL 9) ALBUMIN (test code = 2201) 3.8 G/DL CALC GLOBULIN (test code = 4.2 G/DL 0) CALC A/G RATIO (test code = 0.9 RATIO 4) BILIRUBIN, TOTAL (test code = 0.3 MG/DL 2206) ALKALINE PHOSPHATASE (test 109 U/L code = 2204) AST (test code = 2218) 23 U/L ALT (test code = 2219) 24 U/L HEMOGLOBIN [id number] 00:00:00 Test Item Value Reference Range Interpretation Comments HEMOGLOBIN A1c (test code = 59898) 6.1 % HEMOGLOBIN [id number] 00:00:00 Test Item Value Reference Range Interpretation Comments HEMOGLOBIN A1c (test code = 59474) 6.1 % HEMOGLOBIN [id number] 00:00:00 Test Item Value Reference Range Interpretation Comments HEMOGLOBIN A1c (test code = 92982) 6.1 % [id number] 00:00:00 Test Item Value Reference Range Interpretation Comments TSH (test code = 2821) 1.06 UIU/ML [id number] 00:00:00 Test Item Value Reference Range Interpretation Comments TSH (test code = 2821) 1.06 UIU/ML [id number] 00:00:00 Test Item Value Reference Range Interpretation Comments TSH (test code = 2821) 1.06 UIU/ML Notes Date/Time Note Provider Source 2022-09-08 Formatting of this note might be differe nt from the original. Emma Montes RN [facility] 01:56:04-00:00 Pt given printed and verbal discharge instructions regarding headache, SOB, chest pain, and acute cough Prescriptions provided Pt verbalized understanding of instructions, pt awake alert oriented, resp reg unlabored, skin w/d, color appropriate for race, moves all ext well,pt encouraged to follow up with pcp Advised to seek medical attention for new/prolon ged/worsening of symptoms No adverse reaction to meds given in ER noted up on discharge PIV d'cd, dressing to site, catheter in tact. Awake, alert oriented, resp reg unlabored, skin w/d, pt leaving amb with steady gait, in no apparent distress 2022-09-07 Formatting of this note might be differe nt from the original. Domenica Lucia RN [facility] 22:17:07-00:00 Pt to ed with family via pov . Alert. C/o SOB and CP that started approx Monday with worsening of symptoms. Patient hx of asthma. O2 89 on RA. Albuterol inhl. 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 Denies fever Electronically signed by Domenica Lucia RN at 0 09/07/2022 10:18 PM CDT 2022-09-07 Formatting of this note is different from the or iginal. [facility] 21:53:00-00:00 [facility] Emergency Department Note Patient Name: Kina Parham Date of : 1980 42 year old female Treatment [facility]: [facility] Primary Care Physician: Jericho Coffey Patient Escorted by: Family [5] Mode of Arrival: Personal means [1] EMS Treatment Prior to ED Arrival: HYPERION ADMINISTRATOR treatment: Other (comment) HYPERION ADMINISTRATOR treatment comments: Albuteral 2 puffs Travel and Exposure Screening: Symptoms Does patient have any of these symptoms?: (not r ecorded) Exposure Screening Has patient had contact with someone with a communicable disease in the last month?: (not recorded) Diseases exposed to:: (not recorded) Is Patient ?: (not recorded) Exposure Date: (not recorded) Chief Complaint: Chief Complaint Patient presents with Shortness of Breath Chest pain History of Present Illness: HPI 42yo morbidly obese F with h/o IIH s/p BUSINESS RESILIENCY MANAGER shunt, asthma, HTN presents today with headache, SOB, chest pains. She states she has also been nauseated but no vomiting and doesn't take any meds but her lisinopril. She states she tried albuterol inhaler at home but it didn't help. She states she has been feeling this way for several days. Past Medical History/Immunizations: Past Medical History: Diagnosis Date Asthma Body mass index 40 and over, adult Hypertension IIH (idiopathic intracranial hypertension) Insufficient care Morbid obesity S/P BUSINESS RESILIENCY MANAGER shunt Tetanus received in last 5 years: Unknown Childhood immunizations: Up-to-date Allergies: No Known Allergies Past Social History: Tobacco Use Never smoked or used smokeless tobacco. Passive Exposure: Never Alcohol Use Not Currently. Drug Use Not Currently. Sexual Activity Sexually active; Partners: Male. Past Surgical History: Past Surgical History: Procedure Laterality Date CEREBROSPINAL FLUID SHUNT INSERTION Right 05/06/2022 Surgeon: Jordan Grimaldo MD; Location: [facility] OR LOCATION TUBAL LIGATION Review of Systems: Review of Systems Constitutional: Negative for activity change, diaphoresis, fatigue, fever and weight gain. HENT: Negative for congestio n, ear pain, rhinorrhea, sore throat, tinnitus and trouble swallowing. Eyes: Negative for discharge and visual disturba nce. Respiratory: Positive for cough, chest tightness and shortness of breath. Breasts: Negative for pain. Cardiovascular: Negative for chest pain and palp itations. Gastrointestinal: Positive f or nausea. Negative for abdominal pain and vomiting. Genitourinary: Negative for dysuria, hematuria a nd difficulty urinating. Musculoskeletal: Negative for joint swelling. Skin: Negative for rash and wound. Neurological: Positive for headaches. Negative f or dizziness. Psychiatric/Behavioral: Nega tive for agitation and confusion. The patient is not nervous/anxious. Hematological: Does not bruise/bleed easily. Endocrine: Negative for weight gain. Physical Exam: ED Triage Vitals [09/07/222217] Weight 131.5 kg (290 lb) Actual or estimated Actual Height 1.524 m (5') BP (!) 157/109 Pulse 84 Resp 24 Temp 36.6 ?C (97.8 ?F) Temp source Oral SpO2 96 % Measured on On oxygen Physical Exam Vitals reviewed. Constitutional: Appearance: She is well-developed. She is obese . HENT: Head: Normocephalic and atraumatic. Eyes: Conjunctiva/sclera: Conjunctivae normal. Cardiovascular: Rate and Rhythm: Normal rate and regular rhythm . Heart sounds: Normal heart sounds. No murmur he kierra. Pulmonary: Effort: Pulmonary effort is normal. Breath sounds: No stridor. Wheezing present. Comments: Hypoxia of 87% on room air Abdominal: General: Bowel sounds are normal. Palpations: Abdomen is soft. Tenderness: There is no abdominal tenderness. Musculoskeletal: General: Normal range of motion. Cervical back: Neck supple. Skin: General: Skin is warm and dry. Capillary Refill: Capillary refill takes less t neil 2 seconds. Neurological: Mental Status: She is alert and oriented to per son, place, and time. Cranial Nerves: No cranial nerve deficit. Psychiatric: Behavior: Behavior normal. Radiology: No orders to display Lab Results: Lab Results COMP. METABOLIC PANEL (40209) - Abnormal Result Value Ref Range NA 140 135 - 145 mmol/L K 4.3 3.5 - 5.0 mmol/L CL 101 98 - 108 mmol/L CO2 TOTAL 31 23 - 31 mmol/L AGAP 8 2 - 16 BUN 13 7 - 23 mg/dL GLUCOSE 151 (*) 70 - 110 mg/dL CREATININE 0.48 (*) 0.50 - 1.04 mg/dL TOTAL BILI 0.4 0.1 - 1.1 mg/dL CALCIUM 9.1 8.6 - 10.6 mg/dL T PROTEIN 8.3 (*) 6.3 - 8.2 g/dL ALBUMIN 4.2 3.5 - 5.0 g/dL ALK PHOS 129 (*) 34 - 122 U/L ALTv 19 5 - 35 U/L AST(SGOT) 19 13 - 40 U/L eGFR 140.5 mL/min/1.73m2 CBC WITH DIFF - Abnormal WBC 7.93 4.30 - 11.10 10*3/?L RBC 4.69 3.93 - 5.25 10*6/?L HGB 12.6 11.6 - 15.0 g/dL HCT 40.0 35.7 - 45.2 % MCV 85.3 80.6 - 95.5 fL MCH 26.9 25.9 - 32.8 pg MCHC 31.5 (*) 31.6 - 35.1 g/dL RDW-SD 45.6 39.0 - 49.9 fL RDW-CV 14.8 12.0 - 15.5 % PLT 218 166 - 358 10*3/?L MPV 10.8 9.5 - 12.9 fL NRBC/100 WBC 0.0 0.0 - 10.0 /100 WBCs NRBC x10^3 <0.01 10*3/?L GRAN MAT (NEUT) % 62.3 % IMM GRAN % 0.50 % LYMPH % 23.8 % MONO % 5.3 % EOS % 7.7 % BASO % 0.4 % GRAN MAT x10^3(ANC) 4.94 1.88 - 7.09 10*3/uL IMM GRAN x10^3 0.04 0.00 - 0.06 10*3/uL LYMPH x10^3 1.89 1.32 - 3.29 10*3/uL MONO x10^3 0.42 0.33 - 0.92 10*3/uL EOS x10^3 0.61 (*) 0.03 - 0.39 10*3/uL BASO x10^3 0.03 0.01 - 0.07 10*3/uL N-TERMINAL PRO-BNP - Normal NT-proBNP <20 <=125 pg/mL TROPONIN I EKG: If EKG completed, see Procedure Note. Orders and Treatments: Orders Placed This Encounter Procedures XR CHEST [address] HEAD WO CONTRAST N-TERMINAL PRO-BNP COMP. METABOLIC PANEL (44712) CBC WITH DIFF TROPONIN I NASAL CANNULA Orders Placed This Encounter Medications albuterol (PROVENTIL) 2.5 mg /3 mL (0.083 %) nebulizer solution 7.5 mg ipratropium-albuteroL (DUONEB) 0.5 mg-3 mg(2.5 mg base)/3 mL nebulizer solution 3 mL methylPREDNISolone sod succ (SOLU-MEDROL (PF)) injection 40 mg First Provider Eval: ED Events Date/Time Event User Comments 09/07/222208 Medical Screening Begins RENATA MCKEON MD -- 09/07/222208 First Provider Evaluation RENATA MACIAS MD -- ED COURSE Diagnosis/Impression as of 09/08/22 0137 SOB (shortness of breath) Chest pain, unspecified type Acute cough Headache disorder Procedures: Procedures MDM: Medical Decision Making Patient is desatting and requiring oxygen, lungs are wheezy Given nebs and steroids IV Labs ordered and CXR started CT head ordered to check on shunt Signed out to vicin to reassess Problems Addressed: Acute cough: acute illness or injury Chest pain, unspecified type: acute illness or i njury SOB (shortness of breath): acute illness or inju ry Amount and/or Complexity of Data Reviewed Labs: ordered. Radiology: ordered. ECG/medicine tests: ordered and independent inte rpretation performed. Risk Prescription drug management. Flowsheet Documentation: Scoring Tools: No data recorded Disposition/Condition: ED Disposition None Discharge Medications: Patient's Medications START taking these medications No medications on file CONTINUE taking these medications which have NOT CHANGED ACETAZOLAMIDE 250 MG TABLET Take 2 tablets by m outh 3 (three) times daily. ALBUTEROL 90 MCG/ACTUATION INHALER Inhale 2 Puffs every 4 (four) hours as needed for Wheezing or Shortness of Breath. AMLODIPINE 5 MG TABLET Take 1 tablet by mouth d aily. BUDESONIDE-FORMOTEROL 160-4.5 MCG/ACTUA TION INHALER Inhale 2 Puffs as needed. DIPHENHYDRAMINE 25 MG TABLE T Take 1 tablet by mouth every 6 (six) hours as needed for Itching or Allergies. DOCUSATE 100 MG CAPSULE Guerrero e 1 capsule by mouth once daily as needed for Constipation. HYDROCODONE-ACETAMINOPHEN ( NORCO) 5-325 MG TABLET Take 1 tablet by mouth every 6 (six) hours as needed for Pain (scale 7-10). Indications: acute pain LISINOPRIL 10 MG TABLET Take 1 tablet by mouth daily. MELATONIN 3 MG TABLET Take 1 tablet by mouth at bedtime. ONDANSETRON (ZOFRAN) 4 MG T ABLET Take 1 tablet by mouth every 8 (eight) hours as needed for Nausea and Vomiting (N/V). TOPIRAMATE 50 MG TABLET Take 1 tablet by mouth 2 (two) times daily. START taking Modified Medications as Prescribed No medications on file STOP taking these medications No medications on file Follow-up: Electronically signed by: Renata Acosta DO 09/07/22 [id number] 2022-09-07 Formatting of this note is different from the or iginal. [facility] - Health 21:53:00-00:00 [facility] ED Transfer of Care Note. Off-going Physician:Dr KRISHNA Time of Transfer of Care: 1:43 AM Summary: Kina Parham is a 42 year old female presenting with chief complaint headache, SOB, Chest PAin. Pending prior to disposition: Imaging Current interventions: Medications albuterol (PROVENTIL) 2.5 mg /3 mL (0.083 %) nebulizer solution 7.5 mg (7.5 mg Inhalation Given 09/07/222231) ipratropium-albuteroL (DUONE B) 0.5 mg-3 mg(2.5 mg base)/3 mL nebulizer solution 3 mL (3 mL Inhalation Given 09/07/222231) methylPREDNISolone sod succ (SOLU-MEDROL (PF)) injection 40 mg (40 mg Intravenous Given 09/07/222249) Results: Labs Reviewed COMP. METABOLIC PANEL (00456 ) - Abnormal; Notable for the following components: Result Value GLUCOSE 151 (*) CREATININE 0.48 (*) T PROTEIN 8.3 (*) ALK PHOS 129 (*) All other components within normal limits Narrative: Association of Glomerular F iltration Rate (GFR) and Staging of Kidney Disease* + + +- + | GFR (mL/min/1.73 m2) | With Kidney Damage | Wi thout Kidney Damage + + +- + | >90 | Stage one | Normal + + +- + | 60-89 | Stage two | Decreased GFR + + +- + | 30-59 | Stage three | Stage three + + +- + | 15-29 | Stage four | Stage four + + +- + | <15 (or dialysis) | Stage five | Stage five + + +- + *Each stage assumes the asso ciated GFR level has been in effect for at least three months. Stages 1 to 5, with or without kidney disease, indicate chronic kidney disease. Notes: Determination of stag es one and two (with eGFR >59mL/min/1.73 m2) requires estimation of kidney damage for at least three months as defined by structural or functional abnormalities of the kidney, manifested by either: Pathological abnormalities o r Markers of kidney damage (including abnormalities in the composition of the blood or urine or abnormalities in imaging tests). CBC WITH DIFF - Abnormal; Notable for the follow ing components: MCHC 31.5 (*) EOS x10^3 0.61 (*) All other components within normal limits N-TERMINAL PRO-BNP - Normal TROPONIN I - Normal Narrative: Reference (Normal) Range (defined by the 99th p ercentile reference limit): <= 0.034 ng/mL Note: Cardiac troponin begin s to rise 3-4 hours after the onset of ischemia. Repeat in 4-6 hours if the sample was drawn within 3-4 hours of the onset of the symptom and found normal. Diagnosis of myocardial inju ry is made with acute changes in cTn concentrations with at least one serial sample above the 99th percentile upper reference limit (URL), taken together with the patient's clinical presentation. Biotin has been reported to cause a negative bias, interpret results relative to patient's use of biotin. XR CHEST 1 VW Final Result Impression: No acute cardiopulmonary finding. RL: 1825 End of Report Electronically signed by Matye Tirado at 12:[address] HEAD WO CONTRAST Preliminary Result The tip of right frontal approach BUSINESS RESILIENCY MANAGER shunt is at the left basal ganglia. Slight interval prominence of bilateral lateral ventricles, right greater than left. Persistent low-lying cerebellar tonsils keeping with patient known parenchyma on formation. Persistent partial empt y sella. No acute intracranial hemorrhage or mass effect. Preliminary Report Dictated by Resident: Bert Cabrera Additional Notes: Diagnosis/Impression as of 09/08/22145 SOB (shortness of breath) Chest pain, unspecified type Acute cough Headache disorder Medical Decision Making Kina Parham i s a 42 year old female whopresents to the ED with numerous complaints Problems Addressed: Headache disorder: chronic illness or injury Details: CT findinsg dioscu ssed with Neurosurgery DR Sahu who recommends outpatient follow-up on the CT findings with Dr Grimaldo SOB (shortness of breath): chronic illness or in jury Amount and/or Complexity of Data Reviewed External Data Reviewed: labs and radiology. Labs: ordered. Decision-making details documente d in ED Course. Radiology: ordered and indep endent interpretation performed. Decision-making details documented in ED Course. Risk OTC drugs. Prescription drug management. Disposition: Discharged Home Social Determinants of Health: none. Diagnoses that have been ruled out: None Diagnoses that are still under consideration: None Final diagnoses: SOB (shortness of breath) Chest pain, unspecified type Acute cough Headache disorder ED Disposition ED Disposition Disch - Home Condition Stable Comment -- Miguel Mendoza MD 09/08/22145
[2022-09-14] MEDS ORDERED: ALBUTEROL 2.5 MG/3 ML NEB SOL ONE ×2 (17:51→20:51)
[2022-09-14] MEDS ORDERED: IPRATROPIUM BROM 0.5MG/2.5ML ONE (17:51)
[2022-09-14] MEDS ORDERED: MAGNESIUM SULFATE 1 gm IVPB 1 GM/100 ML BAG IV ONE (17:59)
[2022-09-14] MEDS ORDERED: METHYLPREDNISOLONE 125 MG INJ ONE (17:59)
[2022-09-14] MEDS ORDERED: NA CHLORIDE 0.9% 1,000 ML ONE (17:59)
[2022-09-14 18:09] LABS: Absolute Lymphocytes (CBC) 1.6 K/uL (0.7-4.9); Hematocrit 38.1 % (36.0-45.0); Lymphocytes % 18.4 % (15.3-44.8); MCV 82.8 fL (80-100); MPV 8.2 fL (7.6-11.3); RBC Red Blood Cell Count 4.61 M/uL (3.86-4.86)
--- NOTE | 2022-09-14 18:13 | RAD REPORT ---
EXAM DESCRIPTION: RAD - Chest Single View - 09/14/2022 6:06 pm CLINICAL HISTORY: DYSPNEA Chest pain. COMPARISON: <Comparisons> FINDINGS: Portable technique limits examination quality. Mild interstitial pulmonary edema. The heart is mildly enlarged in size. No displaced fractures.Right -sided catheter tubing is present. IMPRESSION: Mild CHF.
[2022-09-14 18:42] LABS: Arterial Blood Carboxyhemoglob 1.1 % (0-1.5); Blood Gas Oxyhemoglobin 96.8 % (94-97); Blood O2 Saturation 99.1 % (92-98.5)
[2022-09-14 19:19] LABS: SARS-CoV-2 Antigen Rapid Res Negative (Negative)
[2022-09-14 19:23] LABS: Albumin 3.2 g/dL (3.4-5.0); Bilirubin Total 0.2 mg/dL (0.2-1.0); Magnesium 2.5 mg/dL (1.6-2.4); Potassium 3.8 mEq/L (3.5-5.1)
--- NOTE | 2022-09-14 19:45 | RAD REPORT ---
EXAM DESCRIPTION: CT - Head Brain Wo Cont - 09/14/2022 7:18 pm CLINICAL HISTORY: HEADACHE Headache, drowsiness COMPARISON: Head angio dated 02/19/2022; Head Brain Wo Cont dated 02/19/2022 TECHNIQUE: All CT scans are performed using dose optimization technique as appropriate and may inclu de automated exposure control or mA/KV adjustment according to patient size. FINDINGS: No intracranial hemorrhage, hydrocephalus or extra-axial fluid collection.Right frontal ve ntriculostomy tube is noted. Size of the ventricles has slightly decreased since 02/19/2022.No areas of brain edema or evidence of midline shift. Fullness is noted in the foramen magnum. The paranasal sinuses and mastoids are clear. The calvarium is intact. IMPRESSION: No acute intracranial abnormality.
--- NOTE | 2022-09-14 19:46 | RAD REPORT ---
EXAM DESCRIPTION: RAD - Shuntogram - 09/14/2022 7:14 pm CLINICAL HISTORY: headache Headache, drowsiness COMPARISON: No comparisons FINDINGS: Old right-sided ventriculostomy tube exits the right mid calvarium. It extends inferiorly along the right side of the neck soft tissues and projects over the right aspect of the chest. There is some kinking of the tubing in the region of the right upper quadrant. The tubing then extends infe riorly and appears to terminate in the pelvis. No tube breakage is seen.
--- NOTE | 2022-09-14 20:06 | EDPHYS ---
Physician Documentation [facility] Name: Kina Parham Age: 42 yrs Sex: Female : 1980 Arrival Date: 09/14/2022 Time: 17:07 Bed 15 Private MD: Jericho Coffey ED Physician Cirilo Myers HPI: 09/14 18:08 This 42 yrs old Female presents to ER via Wheelchair with complaints of Asthma snw Exacerbation, Sore Throat, Congestion. 18:08 The patient presents to the emergency department with wheezing, Current therapy: snw albuterol inhaler, the patient was reported to have audible wheezing, chest tightness, intercostal retractions, nasal flaring, trouble breathing. Onset: The symptoms/episode began/occurred suddenly, 3 day(s) ago. Associated signs and symptoms: Pertinent positives: headache, sore throat. Severity of symptoms: At their worst the symptoms were incapacitating in the emergency department the symptoms are unchanged. It is unknown whether or not the patient has had similar symptoms in the past. The patient has not recently seen a physician, sees Dr. Coffey. 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 - Social history:: Smoking status: Patient denies any tobacco usage or history of. ROS: 18:06 Eyes: Negative for injury, pain, redness, and discharge, ENT: Negative for injury and snw discharge, + sore throat Neck: Negative for injury, pain, and swelling, Cardiovascular: Negative for chest pain, palpitations, and edema, Abdomen/GI: Negative for abdominal pain, nausea, vomiting, diarrhea, and constipation, Back: Negative for injury and pain, : Negative for injury, bleeding, discharge, and swelling, MS/Extremity: Negative for injury and deformity, Skin: Negative for injury, rash, and discoloration, Neuro: Negative for headache, weakness, numbness, tingling, and seizure, Psych: Negative for depression, anxiety, suicide ideation, homicidal ideation, and hallucinations. 18:06 Constitutional: Positive for body aches, malaise. 18:06 Respiratory: Positive for cough, shortness of breath, at rest. x 3 days. Exam: 18:04 Head/Face: Normocephalic, atraumatic. Eyes: Pupils equal round and reactive to light, snw extra-ocular motions intact. Lids and lashes normal. Conjunctiva and sclera are non-icteric and not injected. Cornea within normal limits. Periorbital areas with no swelling, redness, or edema. ENT: Nares patent. No nasal discharge, no septal abnormalities noted. Tympanic membranes are normal and external auditory canals are clear. Oropharynx with no redness, swelling, or masses, exudates, or evidence of obstruction, uvula midline. Mucous membranes moist. Neck: Trachea midline, no thyromegaly or masses palpated, and no cervical lymphadenopathy. Supple, full range of motion without nuchal rigidity, or vertebral point tenderness. No Meningismus. Chest/axilla: Normal chest wall appearance and motion. Nontender with no deformity. No lesions are appreciated. Cardiovascular: Regular rate and rhythm with a normal S1 and S2. No gallops, murmurs, or rubs. Normal PMI, no JVD. No pulse deficits. 18:04 Abdomen/GI: Soft, non-tender, with normal bowel sounds. No distension or tympany. No guarding or rebound. No evidence of tenderness throughout. Back: No spinal tenderness. No costovertebral tenderness. Full range of motion. Skin: Warm, dry with normal turgor. Normal color with no rashes, no lesions, and no evidence of cellulitis. MS/ Extremity: Pulses equal, no cyanosis. Neurovascular intact. Full, normal range of motion. Neuro: Awake and alert, GCS 15, oriented to person, place, time, and situation. Cranial nerves II-XII grossly intact. Motor strength 5/5 in all extremities. Sensory grossly intact. Cerebellar exam normal. Normal gait. Psych: Awake, alert, with orientation to person, place and time. Behavior, mood, and affect are within normal limits. 18:04 Constitutional: The patient appears awake, anxious, obese, restless, uncomfortable. 18:04 Respiratory: moderate respiratory distress is noted, Respirations: accessory muscle usage, that is moderate, that is severe, nasal flaring, intercostal retractions, that is moderate, shallow respirations, that is moderate, tachypnea, 23-28 Breath sounds: decreased breath sounds, wheezing: Vital Signs: 17:45 BP 148 / 83; Pulse 86; Resp 23; Temp 98.3(O); Pulse Ox 73% on R/A; Weight 127.91 kg; me1 17:52 Pulse Ox 95% on 6 lpm NC; me1 18:23 BP 144 / 88; Pulse 87; Resp 22; Pulse Ox 100% on Breathing tx; nj1 18:45 Pulse Ox 94% on 2 lpm NC; nj1 19:40 BP 152 / 81; Pulse 88; Resp 20; Pulse Ox 89% on 2 lpm NC; nj1 19:40 Pulse Ox 92% on 4 lpm NC; nj1 20:46 BP 151 / 83; Pulse 81; Resp 20; Pulse Ox 97% on Breathing tx; nj1 Procedures: 18:04 Peripheral line: by aseptic technique a peripheral line was placed in the right hand snw vein, left hand vein, bilateral 20g PIV. MDM: 17:13 Patient medically screened. snw 18:03 Differential diagnosis: acute asthma, reactive airway, URI, pneumonia. Data reviewed: snw vital signs, nurses notes. I considered the following discharge prescriptions or medication management in the emergency department Medications were administered in the Emergency Department. See MAR. Historians other than the Patient: Daughter/Son: Daughter. Counseling: I had a detailed discussion with the patient and/or guardian regarding: the historical points, exam findings, and any diagnostic results supporting the discharge/admit diagnosis, the presence of at least one elevated blood pressure reading (>120/80) during this emergency department visit, lab results, radiology results, the need for further work-up and treatment in the hospital. 18:07 Data interpreted: Pulse oximetry: on room air is 73 %. Interpretation: hypoxia. Plan: snw O2 by NC applied. Sats with O2 and then nebs 100%. Consideration of Admission/Observation Patient was admitted/placed on observation. Management of patient was discussed with the following: Hospitalist: Aide Randall. Response to treatment: the patient's symptoms have markedly improved after treatment. Special discussion: Based on the history and exam findings, there is no indication for further emergent testing or inpatient evaluation. 09/14 17:43 Order name: Magnesium; Complete Time: 19:25 snw 09/14 17:43 Order name: CBC with Diff; Complete Time: 18:11 snw 09/14 17:43 Order name: CMP; Complete Time: 19:25 snw 09/14 17:43 Order name: Blood Culture Adult (2) snw 09/14 17:43 Order name: Lactate w/ 2H reflex if indic.; Complete Time: 18:41 snw 09/14 17:43 Order name: Flu; Complete Time: 19:32 snw 09/14 17:43 Order name: SARS RAPID; Complete Time: 19:25 snw 09/14 17:43 Order name: Strep; Complete Time: 19:25 snw 09/14 18:12 Order name: ABG; Complete Time: 18:46 la1 09/14 19:25 Order name: Throat Culture EDMS 09/14 17:43 Order name: Chest Single View XRAY; Complete Time: 18:18 snw 09/14 18:37 Order name: CT Head Brain wo Cont; Complete Time: 19:50 snw 09/14 18:37 Order name: Shuntogram XRAY; Complete Time: 19:50 snw 09/14 18:16 Order name: Labs - recollect needed: recollect green; Complete Time: 18:54 bd Administered Medications: 17:44 Drug: Albuterol Inhalation 2.5 mg Route: Inhalation; ll1 21:43 Follow up: Response: No adverse reaction as6 17:44 Drug: Ipratropium Inhalation Aerosol 0.5 mg Route: Inhalation; ll1 21:43 Follow up: Response: No adverse reaction as6 18:00 Drug: MethylPrednisoLONE IVP 125 mg Route: IVP; Site: right hand; ll1 18:52 Follow up: Response: No adverse reaction nj1 18:00 Drug: Magnesium Sulfate IVPB 1 grams Route: IVPB; Infused Over: 1 hrs; Site: right hand;ll1 18:40 Follow up: Response: No adverse reaction; IV Status: Completed infusion; IV Intake: nj1 100ml 18:40 Drug: NS 0.9% IV 1000 ml Route: IV; Rate: 75 ml/hr; Site: left wrist; nj1 21:43 Follow up: Response: No adverse reaction; IV Status: Infusion continued upon admission; as6 IV Intake: 200ml 20:40 Drug: Albuterol Inhalation 2.5 mg Route: Inhalation; nj1 21:43 Follow up: Response: No adverse reaction as6 Disposition Summary: 09/14/22 20:05 Hospitalization Ordered Hospitalization Status: Inpatient Admission snw Provider: Raciel Cha snwanda Location: Telemetry/MedSurg (Inpatient) snw Condition: Stable snw Problem: new snw Symptoms: have worsened snw Bed/Room Type: Standard snw Room Assignment: 206(09/14/22 20:49) cg Diagnosis - Unspecified asthma with (acute) exacerbation snw - Acute respiratory failure with hypoxia snw - Unspecified systolic (congestive) heart failure snw Forms: - Medication Reconciliation Form snw - SBAR form snw Signatures: Dispatcher [employer] EDMoira Hoffman Shelly, FNP-C RESOURCE RECOVERY SPECIALIST-Csnw Kenn Palomares RESOURCE RECOVERY SPECIALIST-C RESOURCE RECOVERY SPECIALIST-Cla1 Clarita Gamble, GLORIA RN Gelacio Wells RN RN ll1 Virginia Ron RN RN nj1 Luly Vega RN RN me1 Jose Casas RN as6 Corrections: (The following items were deleted from the chart) 20:49 20:05 snw cg
--- NOTE | 2022-09-14 20:06 | ER ---
Nurse's Notes [facility] Name: Kina Parham Age: 42 yrs Sex: Female : 1980 Arrival Date: 09/14/2022 Time: 17:07 Bed 15 Private MD: Jericho Coffey Diagnosis: Unspecified asthma with (acute) exacerbation;Acute respiratory failure with hypoxia;Unspecified systolic (congestive) heart failure Presentation: 09/14 17:44 Chief complaint: Patient states: sob, asthma worsening x 3 days. Coronavirus screen: me1 Vaccine status: Patient reports receiving the 2nd dose of the covid vaccine. shortness of breath. Ebola Screen: No symptoms or risks identified at this time. Initial Sepsis Screen: Does the patient meet any 2 criteria? No. Patient's initial sepsis screen is negative. Does the patient have a suspected source of infection? No. Patient's initial sepsis screen is negative. Risk Assessment: Do you want to hurt yourself or someone else? Patient reports no desire to harm self or others. Onset of symptoms was September 12, 2022. 17:44 Method Of [place] [facility] [place] Acuity: DOMINIC 2 me1 Triage Assessment: 17:46 General: Appears distressed, uncomfortable, obese, Behavior is cooperative, appropriate me1 for age, anxious, Reports sob that has worsened over the past 3 days. Denies fever, feeling ill, fatigue, chills, No sob noted until patient transferred from to [facility] in the room. SOB noted with exertion and o2 sat was 70% on room air. O2 placed on patient at 6 Lpm via nc. Sat increased to 95%. Neb ordered and charge started neb. . Pain: Denies pain. EENT: Denies pain nasal congestion, nasal discharge. Neuro: Level of Consciousness is awake, alert, obeys commands, Oriented to person, place, time, situation. Cardiovascular: Capillary refill < 3 seconds Patient's skin is warm and dry. Respiratory: Respiratory effort is even, labored, Respiratory pattern is regular, symmetrical, tachypnea. 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 - Social history:: Smoking status: Patient denies any tobacco usage or history of. Screenin:08 [facility] ED Fall Risk Assessment (Adult) History of falling in the last 3 months, nj1 including since admission Score/Fall Risk Level 0 - 2 = Low Risk Oriented to surroundings, Maintained a safe environment, Hourly rounding (assess needs \T\ fall precautionary measures) done. Abuse screen: Denies threats or abuse. Denies injuries from another. Nutritional screening: No deficits noted. Tuberculosis screening: No symptoms or risk factors identified. Assessment: 18:30 Reassessment: Patient appears in no apparent distress at this time. Patient and/or nj1 family updated on plan of care and expected duration. Pain level reassessed. Patient is alert, oriented x 3, equal unlabored respirations, skin warm/dry/pink. Reassessment: Patient states symptoms have improved. Respiratory: Airway is patent Respiratory effort is even, unlabored, Respiratory pattern is regular, Breath sounds are diminished bilaterally. the patient has mild shortness of breath. 18:30 Pain: Complains of pain in Head Pain currently is 8 out of 10 on a pain scale. Quality nj1 of pain is described as aching. 20:46 Reassessment: Patient appears in no apparent distress at this time. Patient and/or nj1 family updated on plan of care and expected duration. Pain level reassessed. Patient is alert, oriented x 3, equal unlabored respirations, skin warm/dry/pink. Patient states feeling better. Patient states symptoms have improved. Vital Signs: 17:45 BP 148 / 83; Pulse 86; Resp 23; Temp 98.3(O); Pulse Ox 73% on R/A; Weight 127.91 kg; me1 17:52 Pulse Ox 95% on 6 lpm NC; me1 18:23 BP 144 / 88; Pulse 87; Resp 22; Pulse Ox 100% on Breathing tx; nj1 18:45 Pulse Ox 94% on 2 lpm NC; nj1 19:40 BP 152 / 81; Pulse 88; Resp 20; Pulse Ox 89% on 2 lpm NC; nj1 19:40 Pulse Ox 92% on 4 lpm NC; nj1 20:46 BP 151 / 83; Pulse 81; Resp 20; Pulse Ox 97% on Breathing tx; nj1 ED Course: 17:09 Patient arrived in ED. mr 17:09 Alexx Jericho, is Private Physician. mr 17:09 Elise Bullock, [facility] snw 17:09 Cirilo Myers MD is Attending Physician. snw 17:45 Arm band placed on Patient placed in waiting room. me1 17:46 Triage completed. me1 18:05 Blood Culture Adult (2) Sent. ll1 18:08 Chest Single View XRAY In Process Unspecified. EDMS 18:15 Virginia Ron, GLORIA is Primary Nurse. nj1 18:30 Patient has correct armband on for positive identification. Bed in low position. Call va1 light in reach. Side rails up X 1. 18:30 Provided Education on: fall precautions, call light. nj1 19:15 Shuntogram XRAY In Process Unspecified. EDMS 19:18 CT Head Brain wo Cont In Process Unspecified. EDMS 20:04 Raciel Cha MD is Hospitalizing Provider. snw 20:56 IV is patent, is intact, 20G R hand. nj1 20:56 IV is patent, is intact, 20G L hand. nj1 21:09 No provider procedures requiring assistance completed. Patient admitted, IV remains in va1 place. Administered Medications: 17:44 Drug: Albuterol Inhalation 2.5 mg Route: Inhalation; 1 21:43 Follow up: Response: No adverse reaction as6 17:44 Drug: Ipratropium Inhalation Aerosol 0.5 mg Route: Inhalation; 1 21:43 Follow up: Response: No adverse reaction as6 18:00 Drug: MethylPrednisoLONE IVP 125 mg Route: IVP; Site: right hand; 1 18:52 Follow up: Response: No adverse reaction nj1 18:00 Drug: Magnesium Sulfate IVPB 1 grams Route: IVPB; Infused Over: 1 hrs; Site: right hand;1 18:40 Follow up: Response: No adverse reaction; IV Status: Completed infusion; IV Intake: nj1 100ml 18:40 Drug: NS 0.9% IV 1000 ml Route: IV; Rate: 75 ml/hr; Site: left wrist; nj1 :43 Follow up: Response: No adverse reaction; IV Status: Infusion continued upon admission; as6 IV Intake: 200ml 20:40 Drug: Albuterol Inhalation 2.5 mg Route: Inhalation; nj1 :43 Follow up: Response: No adverse reaction as6 Medication: 21:10 VIS not applicable for this client. nj1 Intake: 18:40 IV: 100ml; Total: 100ml. nj1 :43 IV: 200ml; Total: 300ml. as6 Outcome: 20:05 Decision to Hospitalize by Provider. snw 21:09 Admitted to Med/surg accompanied by tech, room 206, Report called to Nurse Yinka. nj1 21: Condition: stable 21:09 Instructed on the need for admit. 21:42 Patient left the ED. as6 Signatures: Dispatcher [employer] EDMS Elise Bullock, PICCOLO MECHANIC-C PICCOLO MECHANIC-Csnw WangNilda mr Gelacio Wells, RN RN 1 Jose Casas RN RN as6 Virginia Ron RN RN nj1 Luly Vega, GLORIA RN me1 Corrections: (The following items were deleted from the chart) 19:06 19:05 General: Appears in no apparent distress. uncomfortable, obese, nj1 nj 19:06 19:05 General: Appears in no apparent distress. uncomfortable, obese, Behavior is calm, nj1 cooperative, appropriate for age, nj1
--- NOTE | 2022-09-14 20:43 | P.HP ---
Certification for Inpatient Patient admitted to: Inpatient With expected LOS: >2 Midnights Patient will require the following post-hospital care: None Practitioner: I am a practitioner with admitting privileges, knowledge of patient current condition, hospital course, and medical plan of care. Services: Services provided to patient in accordance with Admission requirements found in Title 42 Section 412.3 of the Code of Federal Regulations Patient History Date of Service: 09/14/22 Reason for admission: Asthma exacerbation History of Present Illness: 42-year-old female with history of asthma, hypertension presents emergency department chief complaint of shortness of breath. She reports increasing shortness of breath over the course of last 2 to 3 days. She takes couple inhalers at home more than his albuterol, she is unsure whether inhaler she takes at home. She also does have oxygen available at home that she uses as needed, she used it yesterday she typically only uses it once every few weeks. She was also recently seen at [facility] emergency department approximate 1 week ago and was treated with breathing treatments and IV steroids and discharged on the prescriptions. She has never been intubated, upon arrival to the emergency department her oxygen saturation was 74% on room air, she is dyspneic, tachypneic, has significant expiratory wheezing and is in mild respiratory distress. Her labs were significant for glucose 139 magnesium 2.5 ABG showed pH 7.34 PCO2 61.4. She has received IV magnesium, nebulizer treatments, IV steroids. She will need to be admitted for asthma exacerbation. Allergies No Known Allergies Allergy (Unverified 12/14/20 03:19) Home Medications: Amlodipine [Norvasc*] 5 mg PO DAILY 12/15/20 Loratadine [Claritin*] 10 mg PO DAILY 12/15/20 hydroCHLOROthiazide [Hydrochlorothiazide*] 12.5 mg PO DAILY 12/15/20 Albuterol Inhaler [Ventolin Inhaler*] 2 puff IH Q6H PRN #1 hfa.aer.ad 07/16/21 Albuterol Sulfate [Albuterol Sulfate 0.083% Neb Soln] 2.5 mg NEB Q6HP PRN #60 ml 07/16/21 Cefdinir [Omnicef] 300 mg PO BID #10 capsule 07/16/21 Ipratropium Neb [Atrovent*] 0.5 mg NEB Q6HP PRN #60 amp 07/16/21 predniSONE [Prednisone*] 20 mg PO BID #11 tab 07/16/21 - Past Medical/Surgical History Diabetic: No -: Hypertension -: Asthma -: Tubal ligation Psychosocial/ Personal History: 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 moist/pink, EOMI, Sclerae nonicteric Neck: Supple, 2+ carotid pulse no bruit, No LAD, Without JVD or thyroid abnormality Respiratory: Diminished, Expiratory wheezes Cardiovascular: No edema, Regular rate/rhythm, Normal S1 S2 Capillary refill: <2 Seconds Gastrointestinal: Normal bowel sounds, No tenderness Musculoskeletal: No tenderness Integumentary: No rashes Neurological: Normal gait, Normal speech, Normal strength at 5/5 x4 extr, Normal tone, Normal affect Lymphatics: No axilla or inguinal lymphadenopathy - Studies Laboratory Data (last 24 hrs) 09/14/22 09/14/22 18:49 17:50 WBC 8.90 Hgb 12.0 Hct 38.1 Plt Count 213 Sodium 136 Potassium 3.8 BUN 10 Creatinine 0.50 L Glucose 139 H Magnesium 2.5 H Total Bilirubin 0.2 AST 12 L ALT 20 Alkaline Phosphatase 114 Microbiology Data (last 24 hrs): 09/14/22 18:45 Nasopharnyx Influenza Type A Antigen Screen - Final 09/14/22 18:45 Nasopharnyx Influenza Type B Antigen Screen - Final 09/14/22 18:45 Throat Group A Streptococcus Rapid Screen - Final Assessment and Plan - Plan Assessment: Asthma exacerbation Acute on chronic hypoxic/hypercapnic respiratory failure Hypertension Plan: Asthma exacerbation Acute on chronic hypoxic/hypercapnic respiratory failure Continue steroids, ICS, nebulizer treatments, pulmonology consult, daily over saturations. Patient does have home oxygen which she uses periodically as needed, has had more frequent visits to the hospital over the course of last month. Is unsure home medications will need to evaluate. Hypertension Continue home medications once verified. DVT PPX: Lovenox Code status: Full Discharge Plan: Home Plan to discharge in: 48 Hours - Advance Directives Does patient have a Living Will: No Does patient have a Durable POA for Healthcare: No - Code Status/Comfort Care Code Status Assessed: Yes (Full code) Critical Care: No Time Spent Managing Pts Care (In Minutes): 55
[2022-09-14] MEDS ORDERED: ONDANSETRON 4 MG/2 ML VIAL IV PRN (21:55)
[2022-09-14 21:57] VITALS: BMI 55.0
[2022-09-14] MEDS: NA CHLORIDE 0.9% 1,000 ML IV SCH (22:25)
[2022-09-14] MEDS: BENZONATATE 100 MG CAP PO PRN (22:26)
[2022-09-14] MEDS: predniSONE 20 MG TAB PO SCH (22:26)
[2022-09-14] MEDS: ACETAMINOPHEN 500 MG TAB PO PRN (22:26)
[2022-09-14] MEDS: DULERA 200/5 (MOMETASONE/FORMOTEROL) INHALER IH SCH (22:44)
[2022-09-15 03:46] LABS: Absolute Lymphocytes (CBC) 0.8 K/uL (0.7-4.9); Hematocrit 39.3 % (36.0-45.0); Lymphocytes % 8.5 % (15.3-44.8); MCV 84.3 fL (80-100); MPV 8.4 fL (7.6-11.3); RBC Red Blood Cell Count 4.66 M/uL (3.86-4.86)
[2022-09-15 03:50] LABS: Potassium 4.2 mEq/L (3.5-5.1)
[2022-09-15 05:34] LABS: Blood Morphology Comment NOT SEEN (NOT SEEN); Platelet Estimate ADEQ
--- NOTE | 2022-09-15 06:53 | P.PN ---
Date of Service: 09/15/22 Subjective: Feeling better today Breathing a little more comfortably today, remains on supplemental oxygen dyspnea with ambulation to bathroom swelling in legs in the last week or so, more than usual no nausea / vomiting / diarrhea ROS: 10 point ROS as noted above, otherwise negative Physical Exam: GEN: Alert, oriented HEENT: Normal conjunctiva, sclera anicteric CV: Regular rate and rhythm, trace b/l lower extremity edema Pulm: Nonlabored respirations on 4L NC, diminished at bases b/l, mild expiratory wheezes ABD: Soft, nontender, nondistended Neuro: Normal speech, normal affect vitals reviewed Problem List: Asthma exacerbation; acute on chronic Acute on chronic hypoxic/hypercapnic respiratory failure Mild Pulmonary Edema Headache Hypertension Asthma exacerbation Acute on chronic hypoxic/hypercapnic respiratory failure Mild Pulmonary Edema Patient does have home oxygen which she uses every few weeks for short period of time CXR(09/14): Mild interstitial pulmonary edema Blood cultures: pending Pulmonology consulted Continue steroids, ICS, PRN nebs PRN Tessalon Perle Cont IVF wean oxygen as tolerated echo ordered to eval CHF component Headache CT head (09/14): No acute intracranial abnormality. Shuntogram (09/14): Old right-sided ventriculostomy tube exits the right mid calvarium extending inferiorly along the right side of the neck soft tissues and projects over the right aspect of the chest. There is some kinking of the tubing in the region of the right upper quadrant. The tubing then extends inferiorly and appears to terminate in the pelvis. PRN tylenol Hypertension Continue home medications VTE: Lovenox Code: Full Dispo: Home ~1-2 days Pending further improvement, wean oxygen
[2022-09-15] MEDS: ACETAMINOPHEN 500 MG TAB PO PRN ×2 (08:40→18:11)
[2022-09-15] MEDS: predniSONE 20 MG TAB PO SCH ×2 (08:40→19:41)
[2022-09-15] MEDS: BENZONATATE 100 MG CAP PO PRN ×2 (08:40→13:35)
[2022-09-15] MEDS: DULERA 200/5 (MOMETASONE/FORMOTEROL) INHALER IH SCH ×2 (08:41→19:40)
[2022-09-15] MEDS: ENOXAPARIN 40 MG/0.4 ML SQ SCH (08:42)
[2022-09-15] MEDS: NA CHLORIDE 0.9% 1,000 ML IV SCH (11:37)
[2022-09-15] MEDS ORDERED: ALBUTEROL 2.5 MG/3 ML NEB SOL NEB PRN ×3 (13:00→14:00)
--- NOTE | 2022-09-15 13:02 | P.CNS ---
Date of Consult: 09/15/22 Reason for Consult: Respiratory failure Chief Complaint: Asthma exacerbation History of Present Illness: She is 42 years of age with a history of poorly controlled asthma only uses albuterol as needed came in worse worsening shortness of breath daughter at the bedside patient is morbidly obese and hypoxic hypercapnic for historian it seems like she has been having problems for quite some while Allergies No Known Allergies Allergy (Verified 09/15/22 06:09) Home Medications: Albuterol Sulfate [Albuterol Sulfate 0.083% Neb Soln] 2.5 mg NEB Q6HP PRN #60 ml 07/16/21 Amlodipine Besylate 1 tab PO DAILY 06/21/22 Budesonide/Formoterol Fumarate [Symbicort 160-4.5 Mcg Inhaler] 2 puff IH BID 06/21/22 Topiramate 1 tab PO BID 06/21/22 lisinopriL [Lisinopril] 1 tab PO DAILY 06/21/22 Albuterol Sulfate [Albuterol Sulfate Hfa] 2 puff IH Q6H PRN #1 inhaler 06/22/22 Benzonatate [Tessalon Perle*] 100 mg PO TID PRN 7 Days #20 cap 06/22/22 predniSONE [Prednisone*] 20 mg PO BID 5 Days #10 tab 06/22/22 Lisinopril [Zestril] 5 mg PO BID 09/14/22 Metformin HCl [Glucophage] 500 mg PO DAILY 09/14/22 - Past Medical/Surgical History Diabetic: No -: Hypertension -: Asthma -: Prediabetic -: Tubal ligation Psychosocial/ Personal History: 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, 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 with 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 family - Family History Sister Medical History: Diabetes Father Medical History: Hypertension Mother Medical History: Hypertension - Social History Smoking Status: Current some day smoker Alcohol use: No CD- Drugs: No Caffeine use: Yes Place of Residence: Home Review of Systems 10-point ROS is otherwise unremarkable General: Weakness Respiratory: Cough, Hemoptysis Physical Examination Temp Pulse Resp BP Pulse Ox 98.2 F 73 18 132/81 93 09/15/22 08:00 09/15/22 08:00 09/15/22 08:00 09/15/22 08:00 09/15/22 08:00 General: Alert, Oriented x3, Mild distress Respiratory: Expiratory wheezes Cardiovascular: No edema, Normal pulses, Regular rate/rhythm Laboratory Data (last 24 hrs) 09/14/22 09/14/22 18:49 17:50 WBC 8.90 Hgb 12.0 Hct 38.1 Plt Count 213 Sodium 136 Potassium 3.8 BUN 10 Creatinine 0.50 L Glucose 139 H Magnesium 2.5 H Total Bilirubin 0.2 AST 12 L ALT 20 Alkaline Phosphatase 114 - Problems (1) Respiratory failure Current Visit: No Status: Acute Plan: Patient is 42 years of age admitted with hypoxic hypercapnic respiratory failure poorly controlled asthma hypoventilation only secondary to underlying obstructive airways disease recommend aggressive bronchodilators she will need inhaler currently Symbicort was listed on her med list but she only takes ProAir as per daughter echocardiogram ordered add spironolactone and Diamox has underlying systolic or diastolic heart failure thyroid function test use aggressive bronchodilator therapy with scheduled doses of albuterol/ipratropium azithromycin for anti-inflammatory purposes Qualifiers: Chronicity: acute (2) Sleep apnea Current Visit: Yes Status: Acute Plan: Patient is at risk for sleep apnea morbidly obese underlying hypertension and outpatient sleep study she may also have obesity induced asthma this x-ray shows cardiomegaly Qualifiers: Primary sleep apnea of type: unspecified type
[2022-09-15] MEDS: acetaZOLAMIDE 250 MG TAB PO SCH ×2 (13:33→19:41)
[2022-09-15] MEDS: SPIRONOLACTONE 25 MG TABLET PO SCH ×2 (13:34→19:40)
[2022-09-15] MEDS: AZITHROMYCIN 250 MG TAB PO SCH (13:35)
[2022-09-15] MEDS: ROFLUMILAST 500 MCG TABLET PO SCH (13:36)
[2022-09-15] MEDS: ALBUTEROL 2.5 MG/3 ML NEB SOL IH SCH ×2 (14:16→20:00)
[2022-09-15] MEDS: IPRATROPIUM BROM 0.5MG/2.5ML NEB SCH ×2 (14:16→20:00)
[2022-09-16] MEDS: ALBUTEROL 2.5 MG/3 ML NEB SOL IH SCH ×2 (01:45→07:50)
[2022-09-16] MEDS: IPRATROPIUM BROM 0.5MG/2.5ML NEB SCH ×2 (01:45→07:50)
[2022-09-16 04:08] LABS: Potassium 4.3 mEq/L (3.5-5.1)
[2022-09-16] MEDS: SPIRONOLACTONE 25 MG TABLET PO SCH (08:37)
[2022-09-16] MEDS: AZITHROMYCIN 250 MG TAB PO SCH (08:37)
[2022-09-16] MEDS: ROFLUMILAST 500 MCG TABLET PO SCH (08:37)
[2022-09-16] MEDS: predniSONE 20 MG TAB PO SCH (08:37)
[2022-09-16] MEDS: DULERA 200/5 (MOMETASONE/FORMOTEROL) INHALER IH SCH (08:37)
[2022-09-16] MEDS: acetaZOLAMIDE 250 MG TAB PO SCH (08:38)
[2022-09-16] MEDS: ENOXAPARIN 40 MG/0.4 ML SQ SCH (08:38)
[2022-09-16 08:47] VITALS: O2SAT 93
[2022-09-16 09:26] VITALS: BP 131/77; TEMP 97.8
--- NOTE | 2022-09-16 10:45 | P.DS ---
Admission Date: 09/14/22 Discharge Date: 09/16/22 Disposition: ROUTINE DISCHARGE Discharge Condition: FAIR Reason for Admission: Asthma exacerbation - Problems (1) Respiratory failure Current Visit: No Status: Acute Qualifiers: Chronicity: acute (2) Sleep apnea Current Visit: Yes Status: Acute Qualifiers: Primary sleep apnea of type: unspecified type Brief History of Present Illness: She is 42 years of age with a history of poorly controlled asthma only uses albuterol as needed came in worse worsening shortness of breath daughter at the bedside patient is morbidly obese and hypoxic hypercapnic for historian it seems like she has been having problems for quite some while Hospital Course: Patient was admitted to the hospital with respiratory failure poorly controlled asthma she did well during the course of her stay. Daughter remained by her bedside patient is Latvian-speaking only she was instructed to use in inhalers with steroids and also nebulizer was prescribed probably has underlying diastolic dysfunction spironolactone was also added and will need to follow-up outpatient for sleep apnea very high risk labs chemistries all reviewed patient has home oxygen was discharged in satisfactory condition at the time of discharge alert oriented responsive cooperative vital signs all stable his oxygenation satisfactory chest clear she is also to go home on low-dose steroids Symbicort was also prescribed mild CHF on chest x-ray Vital Signs/Physical Exam: Temp Pulse Resp BP Pulse Ox 97.8 F 67 18 131/77 95 09/16/22 08:00 09/16/22 08:00 09/16/22 08:00 09/16/22 08:00 09/16/22 08:00 Laboratory Data at Discharge: WBC 9.20 thou/uL (4.3-10.9) 09/15/22 02:16 Hgb 12.4 g/dL (12.0-15.0) 09/15/22 02:16 Hct 39.3 % (36.0-45.0) 09/15/22 02:16 Plt Count 225 thou/uL (152-406) 09/15/22 02:16 Sodium 136 mEq/L (136-145) 09/16/22 03:34 Potassium 4.3 mEq/L (3.5-5.1) 09/16/22 03:34 BUN 8 mg/dL (7-18) 09/16/22 03:34 Creatinine 0.55 mg/dL (0.55-1.02) 09/16/22 03:34 Glucose 153 mg/dL (74-106) H 09/16/22 03:34 Magnesium 2.5 mg/dL (1.6-2.4) H 09/14/22 18:49 Total Bilirubin 0.2 mg/dL (0.2-1.0) 09/14/22 18:49 AST 12 U/L (15-37) L 09/14/22 18:49 ALT 20 U/L (13-56) 09/14/22 18:49 Alkaline Phosphatase 114 U/L (45-117) 09/14/22 18:49 Home Medications: Amlodipine Besylate 1 tab PO DAILY 06/21/22 Topiramate 1 tab PO BID 06/21/22 lisinopriL [Lisinopril] 1 tab PO DAILY 06/21/22 Albuterol Sulfate [Albuterol Sulfate Hfa] 2 puff IH Q6H PRN #1 inhaler 06/22/22 Lisinopril [Zestril] 5 mg PO BID 09/14/22 Metformin HCl [Glucophage*] 500 mg PO DAILY 09/14/22 Albuterol Neb [Proventil 0.083% Neb Soln] 2.5 mg IH Q6HP PRN 30 Days #300 ml 09/16/22 Albuterol Sulfate [Albuterol Sulfate 0.083% Neb Soln] 2.5 mg NEB Q6HP PRN #60 ml 09/16/22 Budesonide/Formoterol Fumarate [Symbicort 160-4.5 Mcg Inhaler] 2 puff IH BID 30 Days #120 aero 09/16/22 Budesonide/Formoterol Fumarate [Symbicort 160-4.5 Mcg Inhaler] 2 puff IH BID 30 Days #120 aero 09/16/22 Spironolactone [Aldactone*] 25 mg PO BID 30 Days #60 tab 09/16/22 predniSONE [Prednisone*] 10 mg PO BID 5 Days #10 tab 09/16/22 New Medications: Albuterol Sulfate [Albuterol Sulfate 0.083% Neb Soln] 2.5 mg NEB Q6HP PRN #60 ml PRN Reason: Shortness Of Breath Spironolactone [Aldactone*] 25 mg PO BID 30 Days #60 tab predniSONE [Prednisone*] 10 mg PO BID 5 Days #10 tab Albuterol Neb [Proventil 0.083% Neb Soln] 2.5 mg IH Q6HP PRN 30 Days #300 ml PRN Reason: Shortness Of Breath Budesonide/Formoterol Fumarate [Symbicort 160-4.5 Mcg Inhaler] 2 puff IH BID 30 Days #120 aero Budesonide/Formoterol Fumarate [Symbicort 160-4.5 Mcg Inhaler] 2 puff IH BID 30 Days #120 aero Physician Discharge Instructions: FU with Dr. Rock 2 wks Diet: ADA Activity: Ad everett Followup: Jericho Coffey DO [Primary Care Provider] - 1 Week (Please call to schedule an appointment. )
--- NOTE | 2022-09-19 07:39 | ECHO ---
HEIGHT: 5 ft 0 in WEIGHT: 282 lb 0 oz DATE OF STUDY: 09/16/[address]: Riki Rock MD 2-DIMENSIONAL: YES M.MODE: YES DOPPLER: YES COLOR FLOW: YES TDS: PORTABLE: YES DEFINITY: BUBBLE STUDY: DIAGNOSIS: RESPIRATORY FAILURE CARDIAC HISTORY: CATHERIZATION: SURGERY: PROSTHETIC VALVE: PACEMAKER: MEASUREMENTS (cm) DIASTOLIC (NORMALS) SYSTOLIC (NORMALS) IVSd 1.1 (0.6-1.2) LA Diam 3.9 (1.9-4.0) LVEF 62% LVIDd 4.6 (3.5-5.7) LVIDs 3.1 (2.0-3.5) %FS 34% LVPWd 1.1 (0.6-1.2) Ao Diam 2.9 (2.0-3.7) 2 DIMENSIONAL ASSESSMENT: RIGHT ATRIUM: NORMAL LEFT ATRIUM: NORMAL RIGHT VENTRICLE: NORMAL LEFT VENTRICLE: NORMAL TRICUSPID VALVE: NORMAL MITRAL VALVE: NORMAL PULMONIC VALVE: NORMAL AORTIC VALVE: NORMAL PERICARDIAL EFFUSION: NONE AORTIC ROOT: NORMAL LEFT VENTRICULAR WALL MOTION: NORMAL DOPPLER/COLOR FLOW: SEE BELOW COMMENTS: 1. NORMAL LEFT VENTRICULAR EJECTION FRACTION 60-65% 2. NORMAL WALL MOTION 3. NORMAL DISATOLIC FUNCTION TECHNOLOGIST: DEMETRI WU
== END 2022-09-16 13:47 | disposition home or self-care (01) | DRG 202 ==
LOC: ER 17:07 → ERHOLD 20:28 → 2ND 21:03
PROVIDERS: ADMIT Hospitalist; ATTEND Internal Medicine Sleep Medicine
DX: J45.901 Unspecified asthma with (acute) exacerbation (principal); J96.21 Acute and chronic respiratory failure with hypoxia; J96.22 Acute and chronic respiratory failure with hypercapnia; Z68.43 Body mass index [BMI] 50.0-59.9, adult; E66.01 Morbid (severe) obesity due to excess calories; G47.30 Sleep apnea, unspecified; I10 Essential (primary) hypertension; M19.90 Unspecified osteoarthritis, unspecified site; F17.200 Nicotine dependence, unspecified, uncomplicated; Z98.51 Tubal ligation status; Z79.84 Long term (current) use of oral hypoglycemic drugs; Z79.52 Long term (current) use of systemic steroids; Z79.899 Other long term (current) drug therapy; Z20.822 Contact with and (suspected) exposure to COVID-19
CPT/HCPCS: 36415; 36600; 49427; 70450; 71045; 75809; 80048; 80053; 82805; 83605; 83735; 84443; 85025; 87040; 87070; 87081; 87804; 87811; 93306; 94640; 96361; 96365; 96375; 99285; J1650; J2930; J3475; J3535; J7030; J7512; J7613; J7644

== ENCOUNTER 2023-01-01 10:34 | Observation (INO) | payer OTHER ==
[2023-01-01] MEDS ORDERED: METHYLPREDNISOLONE 125 MG INJ ONE (11:03)
[2023-01-01] MEDS ORDERED: IPRATROPIUM BROM 0.5MG/2.5ML ONE (11:04)
[2023-01-01] MEDS ORDERED: ALBUTEROL 2.5 MG/3 ML NEB SOL ONE (11:04)
[2023-01-01] MEDS ORDERED: FAMOTIDINE 20 MG/2 ML VIAL IV ONE (11:04)
[2023-01-01 11:06] LABS: Absolute Lymphocytes (CBC) 1.2 K/uL (0.7-4.9); Hematocrit 42.6 % (36.0-45.0); Lymphocytes % 17.5 % (15.3-44.8); MCV 84.5 fL (80-100); MPV 8.2 fL (7.6-11.3); Platelets 186 thou/uL (152-406); RBC Red Blood Cell Count 5.04 M/uL (3.86-4.86)
[2023-01-01] MEDS ORDERED: NA CHLORIDE 0.9% 1,000 ML ONE (11:11)
[2023-01-01 11:14] LABS: Protime INR 1.03
[2023-01-01 11:30] LABS: Albumin 3.5 g/dL (3.4-5.0); Bilirubin Total 0.3 mg/dL (0.2-1.0); Potassium 4.3 mEq/L (3.5-5.1); Protein, Total 8.9 g/dL (6.4-8.2)
--- NOTE | 2023-01-01 11:41 | RAD REPORT ---
EXAM DESCRIPTION: RAD - Chest Single View - 01/01/2023 11:04 am CLINICAL HISTORY: SOB Chest pain. COMPARISON: <Comparisons> FINDINGS: Portable technique limits examination quality. [id number] pulmonary edema. The heart is moderately enlarged in size. No displaced fractures.Ri ght-sided ventriculostomy tubing seen. IMPRESSION: Mild CHF.
[2023-01-01] MEDS ORDERED: FUROSEMIDE 20 MG/ 2ML VIAL ONE (12:07)
[2023-01-01] MEDS ORDERED: NITROGLYCERIN 1 GM PKT TD ONE (12:07)
[2023-01-01] MEDS ORDERED: MORPHINE 4 MG/ML SYR ONE (12:09)
--- NOTE | 2023-01-01 12:49 | EDPHYS ---
Physician Documentation [facility] Name: Kina Parham Age: 42 yrs Sex: Female : 1980 Arrival Date: 01/01/2023 Time: 10:34 Bed 2 Private MD: ABA Physician Cirilo Myers HPI: 01/01 11:05 This 42 yrs old Female presents to ER via Wheelchair with complaints of snw Shortness Of Breath. 11:05 The patient has shortness of breath at rest. Onset: The symptoms/episode began/occurred snw suddenly, 4 day(s) ago, and became worse and became persistent. Duration: The symptoms are continuous. Severity of symptoms: At their worst the symptoms were moderate severe in the emergency department the symptoms are worse. The patient has experienced similar episodes in the past. sees Someone at the [facility]. 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; ap3 ROS: 10:54 Constitutional: Negative for fever, chills, and weight loss, Eyes: Negative for injury, snw pain, redness, and discharge, ENT: Negative for injury, pain, and discharge, Neck: Negative for injury, pain, and swelling, Cardiovascular: Negative for chest pain, palpitations, and edema, Abdomen/GI: Negative for abdominal pain, nausea, vomiting, diarrhea, and constipation, Back: Negative for injury and pain, : Negative for injury, bleeding, discharge, and swelling, MS/Extremity: Negative for injury and deformity, Skin: Negative for injury, rash, and discoloration, Neuro: Negative for headache, weakness, numbness, tingling, and seizure, Psych: Negative for depression, anxiety, suicide ideation, homicidal ideation, and hallucinations, 10:54 Respiratory: Positive for cough, shortness of breath, at rest. Exam: 10:52 Head/Face: Normocephalic, atraumatic. Eyes: Pupils equal round and reactive to light, snw extra-ocular motions intact. Lids and lashes normal. Conjunctiva and sclera are non-icteric and not injected. Cornea within normal limits. Periorbital areas with no swelling, redness, or edema. ENT: Nares patent. No nasal discharge, no septal abnormalities noted. Tympanic membranes are normal and external auditory canals are clear. Oropharynx with no redness, swelling, or masses, exudates, or evidence of obstruction, uvula midline. Mucous membranes moist. Neck: Trachea midline, no thyromegaly or masses palpated, and no cervical lymphadenopathy. Supple, full range of motion without nuchal rigidity, or vertebral point tenderness. No Meningismus. Chest/axilla: Normal chest wall appearance and motion. Nontender with no deformity. No lesions are appreciated. 10:52 Abdomen/GI: Soft, non-tender, with normal bowel sounds. No distension or tympany. No guarding or rebound. No evidence of tenderness throughout. Back: No spinal tenderness. No costovertebral tenderness. Full range of motion. MS/ Extremity: Pulses equal, no cyanosis. Neurovascular intact. Full, normal range of motion. Neuro: Awake and alert, GCS 15, oriented to person, place, time, and situation. Cranial nerves II-XII grossly intact. Motor strength 5/5 in all extremities. Sensory grossly intact. Cerebellar exam normal. Normal gait. 10:52 Constitutional: The patient appears awake, anxious, listless, obese, in obvious distress, moderately distressed, severely distressed, 10:52 Cardiovascular: Rate: tachycardic, Heart sounds: normal, 10:52 Respiratory: severe repiratory distress is noted, Respirations: accessory muscle usage, that is moderate, that is severe, shallow respirations, that is moderate, tachypnea, Breath sounds: wheezing: inspiratory expiratory is heard diffusely, 10:52 Skin: Appearance: Color: dusky, Moisture: diaphoretic, Vital Signs: 10:48 Pulse 96; Resp 25 S; Temp 98; Pulse Ox 83% on R/A; iw 10:55 Pulse Ox 93% on 4 lpm NC; ap3 10:59 BP 170 / 94; iw 11:59 BP 137 / 75; Pulse 86; Resp 20; Pulse Ox 98% on 2 lpm NC; iw 12:10 BP 119 / 62; Pulse 85; Resp 19; Pulse Ox 95% on 2 lpm NC; tl4 12:15 BP 141 / 78; Pulse 87; Resp 19; Pulse Ox 94% on 2 lpm NC; tl4 12:47 BP 139 / 84; Pulse 91; Resp 20; Pulse Ox 95% on 4 lpm NC; iw 14:26 BP 135 / 71; Pulse 86; Resp 20; Pulse Ox 97% on 4 lpm NC; iw 14:56 Pulse 84; Resp 20; Temp 98.6(O); Pulse Ox 96% on 4 lpm NC; iw MDM: 10:52 Differential diagnosis: asthma, Bronchitis pneumonia, Pneumothorax pulmonary edema, snw Unstable Angina. Data interpreted: Pulse oximetry: is 83 %. Interpretation: hypoxia. Plan: will initiate a nebulizer treatment. 10:52 Data reviewed: vital signs, nurses notes, lab test result(s), EKG, radiologic studies. snw Management of patient was discussed with the following: Hospitalist: Cortney Moreira NP for Dr. Archer. Historians other than the Patient: Daughter/Son: Daughter. Care significantly affected by the following chronic conditions: Hypertension, asthma. Counseling: I had a detailed discussion with the patient and/or guardian regarding the historical points, exam findings, and any diagnostic results supporting the discharge/admit diagnosis, lab results, radiology results, the need for further work-up and treatment in the hospital. Response to treatment: the patient's symptoms have markedly improved after treatment, . 10:54 Patient medically screened. snw 12:57 Response to treatment: the patient's symptoms have markedly improved after treatment, snw decreased resp distress. no tripoiding, decreased work of breathing. 01/01 10:52 Order name: Blood Culture Adult (2) snw 01/01 10:52 Order name: CBC with Diff; Complete Time: 11:16 snw 01/01 10:52 Order name: CMP; Complete Time: 11:36 snw 01/01 10:52 Order name: Lactate w/ 2H reflex if indic.; Complete Time: 11:36 snw 01/01 10:52 Order name: Protime (+inr); Complete Time: 11:16 snw 01/01 10:52 Order name: Ptt, Activated; Complete Time: 11:16 snw 01/01 13:36 Order name: Urinalysis w/ reflexes EDMS 01/01 13:36 Order name: Basic Metabolic Panel EDMS 01/01 13:36 Order name: Basic Metabolic Panel EDMS 01/01 13:36 Order name: Basic Metabolic Panel EDMS 01/01 13:36 Order name: Basic Metabolic Panel EDMS 01/01 13:36 Order name: Basic Metabolic Panel EDMS 01/01 13:36 Order name: Basic Metabolic Panel EDMS 01/01 13:36 Order name: CBC with Automated Diff EDMS 01/01 13:36 Order name: CBC with Automated Diff EDMS 01/01 13:36 Order name: CBC with Automated Diff EDMS 01/01 13:36 Order name: CBC with Automated Diff EDMS 01/01 13:36 Order name: CBC with Automated Diff EDMS 01/01 13:36 Order name: CBC with Automated Diff EDMS 01/01 13:36 Order name: Magnesium EDMS 01/01 13:36 Order name: Magnesium EDMS 01/01 13:36 Order name: Magnesium EDMS 01/01 13:36 Order name: Magnesium EDMS 01/01 13:36 Order name: Magnesium EDMS 01/01 13:36 Order name: Magnesium EDMS 01/01 13:36 Order name: Phosphorus EDMS 01/01 13:36 Order name: Phosphorus EDMS 01/01 13:36 Order name: Phosphorus EDMS 01/01 13:36 Order name: Phosphorus EDMS 01/01 13:36 Order name: Phosphorus EDMS 01/01 13:36 Order name: Phosphorus EDMS 01/01 10:52 Order name: Chest Single View XRAY; Complete Time: 11:43 snw 01/01 10:52 Order name: EKG; Complete Time: 10:52 snw 01/01 10:52 Order name: Accucheck; Complete Time: 11:03 snw 01/01 10:52 Order name: Cardiac monitoring; Complete Time: 10:56 snw 01/01 10:52 Order name: EKG - Nurse/Tech; Complete Time: 10:56 snw 01/01 10:52 Order name: IV Saline Lock - Large Bore; Complete Time: 10:56 snw 01/01 10:52 Order name: Labs collected and sent; Complete Time: 10:56 snw 01/01 10:52 Order name: O2 Per Protocol; Complete Time: 10:56 snw 01/01 10:52 Order name: O2 Sat Monitoring; Complete Time: 10:56 snw 01/01 10:52 Order name: Vital Signs; Complete Time: 10:56 snw EC:57 Rate is 84 beats/min. Rhythm is regular. QRS [place] is Normal. RI interval is normal. QRS snw interval is normal. QT interval is normal. Clinical impression: NSR w/ Non-specific ST/T Changes. Administered Medications: 10:54 Drug: MethylPrednisoLONE IVP 125 mg IVP once Route: IVP; Site: left antecubital; iw 12:18 Follow up: Response: No adverse reaction tl4 10:54 Drug: Famotidine IVP 20 mg IVP once; dilute with 10 mL 0.9% NaCl; give over 2 minutes iw Route: IVP; Site: left antecubital; 12:18 Follow up: Response: No adverse reaction tl4 10:54 Drug: Albuterol Inhalation 2.5 mg Inhalation every 20 minutes x3 Route: Inhalation; iw 10:54 Drug: Ipratropium Inhalation Aerosol 0.5 mg Inhalation once Route: Inhalation; iw 11:01 Drug: Albuterol Inhalation 2.5 mg Inhalation every 20 minutes x3 Route: Inhalation; iw 11:01 Drug: Albuterol Inhalation 2.5 mg Inhalation every 20 minutes x3 Route: Inhalation; iw 11:32 Drug: NS 0.9% IV 1000 ml IV at 75 ml/hr continuous Route: IV; Rate: 75 ml/hr; Site: iw left antecubital; 12:00 Drug: Nitroglycerin Transdermal Ointment 2 % 0.5 inches Transdermal once Route: tl4 Transdermal; Site: anterior chest wall; 12:01 Drug: Furosemide IVP 20 mg IVP once; give over 2 minutes Route: IVP; Infused Over: 2 tl4 mins; Site: left hand; 12:17 Follow up: Response: No adverse reaction tl4 12:05 Drug: morphine IVP or IV 4 mg IVP once over 4 mins Route: IVP; Infused Over: 4 mins; tl4 Site: left hand; 12:18 Follow up: Response: No adverse reaction; Pain is decreased tl4 Disposition Summary: 01/01/23 12:48 Hospitalization Ordered Notes: Hospitalization Status: Inpatient Admission snw Provider: Fidel Archer Location: Telemetry/MedSurg (Inpatient) snw Condition: Stable snw Problem: an acute exacerbation snw Symptoms: have improved snw Bed/Room Type: Standard snw Room Assignment: 232(01/01/23 16:01) eb Diagnosis - Unspecified asthma with (acute) exacerbation snw - Respiratory failure, unspecified with hypoxia snw - Unspecified systolic (congestive) heart failure snw Forms: - Medication Reconciliation Form snw - SBAR form snw - Leadership Thank You Letter snw Signatures: Dispatcher [employer] Elise Perez, ELIZABETH-C MEDICAL AUDITOR-Csnw Cora Foster RN RN iw Prokisch, Amanda, RN RN ap3 Zulma Soni Toni tl4 Corrections: (The following items were deleted from the chart) 16:01 12:48 princess avila
--- NOTE | 2023-01-01 12:49 | ER ---
Nurse's Notes [facility] Name: Kina Parham Age: 42 yrs Sex: Female : 1980 Arrival Date: 01/01/2023 Time: 10:34 Bed 2 Private MD: Diagnosis: Unspecified asthma with (acute) exacerbation;Respiratory failure, unspecified with hypoxia;Unspecified systolic (congestive) heart failure Presentation: 01/01 10:53 Chief complaint: Patient's son or daughter states: the patient has been having ap3 shortness of breath with a cough for 2-3 days. Coronavirus screen: At this time, the client does not indicate any symptoms associated with coronavirus-19. Ebola Screen: No symptoms or risks identified at this time. Initial Sepsis Screen: Does the patient meet any 2 criteria? RR > 20 per min. HR > 90 bpm. Risk Assessment: Do you want to hurt yourself or someone else? Patient reports no desire to harm self or others. Onset of symptoms was December 30, 2022. 10:53 Method Of Arrival: Wheelchair ap3 10:53 Acuity: DOMINIC 2 ap3 Triage Assessment: 10:55 General: Appears distressed, Behavior is cooperative. Pain: Denies pain. Neuro: Level ap3 of Consciousness is awake, alert, obeys commands, Oriented to person, place, time, situation, Appropriate for age. Cardiovascular: Patient's skin is warm and dry. Respiratory: Reports shortness of breath cough that is Airway is patent Respiratory effort is labored, Onset: The symptoms/episode began/occurred 2-3 days ago, the patient has moderate shortness of breath. 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 Nutritional screening: No deficits noted. ap3 Tuberculosis screening: No symptoms or risk factors identified. Assessment: 10:58 General: Appears uncomfortable, obese, Behavior is cooperative, anxious. Neuro: Level iw of Consciousness is awake, alert, obeys commands, Oriented to person, place, time, situation, Rigging Up Man are equal bilaterally Moves all extremities. Cardiovascular: Rhythm is regular. Respiratory: Reports shortness of breath labored breathing Airway is patent Respiratory effort is labored, Respiratory pattern is symmetrical, Breath sounds are diminished bilaterally. GI: Abdomen is non-distended. Derm: Skin is intact. 11:45 Reassessment: pt c/o headache 10/23, DELIA Olivares notified. iw Vital Signs: 10:48 Pulse 96; Resp 25 S; Temp 98; Pulse Ox 83% on R/A; iw 10:55 Pulse Ox 93% on 4 lpm NC; ap3 10:59 BP 170 / 94; iw 11:59 BP 137 / 75; Pulse 86; Resp 20; Pulse Ox 98% on 2 lpm NC; iw 12:10 BP 119 / 62; Pulse 85; Resp 19; Pulse Ox 95% on 2 lpm NC; tl4 12:15 BP 141 / 78; Pulse 87; Resp 19; Pulse Ox 94% on 2 lpm NC; tl4 12:47 BP 139 / 84; Pulse 91; Resp 20; Pulse Ox 95% on 4 lpm NC; iw 14:26 BP 135 / 71; Pulse 86; Resp 20; Pulse Ox 97% on 4 lpm NC; iw 14:56 Pulse 84; Resp 20; Temp 98.6(O); Pulse Ox 96% on 4 lpm NC; iw ED Course: 10:35 Patient arrived in ED. rg4 10:38 Elise Bullock FNP-C is [facility]. snw 10:38 Cirilo Myers MD is Attending Physician. snw 10:53 Cora Foster, GLORIA is Primary Nurse. iw 10:53 Inserted saline lock: 20 gauge in left antecubital area, using aseptic technique. Blood iw collected. 10:55 Triage completed. ap3 10:56 Arm band placed on right wrist. ap3 10:56 Patient has correct armband on for positive identification. Bed in low position. Call ap3 light in reach. Side rails up X2. Adult w/ patient. monitoring engineer on. Pulse ox on. NIBP on. 11:06 Chest Single View XRAY In Process Unspecified. EDMS 12:47 Fidel Archer is Hospitalizing Provider. snw Administered Medications: 10:54 Drug: MethylPrednisoLONE IVP 125 mg IVP once Route: IVP; Site: left antecubital; iw 12:18 Follow up: Response: No adverse reaction tl4 10:54 Drug: Famotidine IVP 20 mg IVP once; dilute with 10 mL 0.9% NaCl; give over 2 minutes iw Route: IVP; Site: left antecubital; 12:18 Follow up: Response: No adverse reaction tl4 10:54 Drug: Albuterol Inhalation 2.5 mg Inhalation every 20 minutes x3 Route: Inhalation; iw 10:54 Drug: Ipratropium Inhalation Aerosol 0.5 mg Inhalation once Route: Inhalation; iw 11:01 Drug: Albuterol Inhalation 2.5 mg Inhalation every 20 minutes x3 Route: Inhalation; iw 11:01 Drug: Albuterol Inhalation 2.5 mg Inhalation every 20 minutes x3 Route: Inhalation; iw 11:32 Drug: NS 0.9% IV 1000 ml IV at 75 ml/hr continuous Route: IV; Rate: 75 ml/hr; Site: iw left antecubital; 12:00 Drug: Nitroglycerin Transdermal Ointment 2 % 0.5 inches Transdermal once Route: tl4 Transdermal; Site: anterior chest wall; 12:01 Drug: Furosemide IVP 20 mg IVP once; give over 2 minutes Route: IVP; Infused Over: 2 tl4 mins; Site: left hand; 12:17 Follow up: Response: No adverse reaction tl4 12:05 Drug: morphine IVP or IV 4 mg IVP once over 4 mins Route: IVP; Infused Over: 4 mins; tl4 Site: left hand; 12:18 Follow up: Response: No adverse reaction; Pain is decreased tl4 Output: 12:47 Urine: 600ml (Voided); Total: 600ml. iw 14:57 Urine: 500ml (Voided); Total: 1100ml. iw Outcome: 12:48 Decision to Hospitalize by Provider. snw 17:41 Patient left the ED. iw Signatures: Dispatcher [employer] Elise Perez FNP-C COPY CLERK-CsnCora Mercedes RN RN iw Claudia Gamble rg4 Kely Ruvalcaba RN RN ap3 Dong Zavala tl4 Corrections: (The following items were deleted from the chart) 10:55 10:53 Pulse 96bpm; Pulse Ox 83% RA; Temp 98F; ap3 ap3 11:31 10:48 Pulse 96bpm; Pulse Ox 83% RA; Temp 98F; ap3 iw 12:14 12:10 BP 119 / 62; Pulse 85bpm; Resp 19bpm; Pulse Ox 95%; tl4 tl4
[2023-01-01] MEDS ORDERED: ALBUTEROL 2.5 MG/3 ML NEB SOL NEB PRN (13:30)
--- NOTE | 2023-01-01 17:06 | P.HP ---
Patient History Date of Service: 01/01/23 Reason for admission: SOB History of Present Illness: Kina Najera is a 42-year-old female with past medical history MEDICAL CSR shunt (placed one year ago), arthritis, asthma, hypertension, pneumonia, diabetes who presents to the ED with complaints of shortness of breath at rest. Kina reports the shortness of breath came on suddenly 4 days ago and became worse. She was treating with albuterol inhaler and breathing treatments that she uses for an asthma attack. She also has home oxygen as needed. On examination she is on 4 L nasal cannula, coughing, wheezing to bilateral lung space, mild distress noted. While in the ED she has been treated with Atrovent and albuterol, Solu-Medrol, and states that she is feeling some relief. Initial vitals Pulse 96; Resp 25; Temp 98; Pulse Ox 83% on R/A, 93% on 4 LNC. Significant labs bicarb 32, lactic 1.1, potassium 4.3. Chest x-ray reports "[id number] pulmonary edema. The heart is moderately enlarged in size. No displaced fractures.Right-sided ventriculostomy tubing seen" Follow-up will be admitted to hospitalist service for further evaluation and treatment of asthma exacerbation Allergies No Known Allergies Allergy (Verified 09/15/22 06:09) Home Medications: Amlodipine Besylate 1 tab PO DAILY 06/21/22 Albuterol Sulfate [Albuterol Sulfate Hfa] 2 puff IH Q6H PRN #1 inhaler 06/22/22 Metformin HCl [Glucophage*] 500 mg PO DAILY 09/14/22 - Past Medical/Surgical History Diabetic: No -: Asthma -: Hypertension -: Prediabetic -: MEDICAL CSR shunt Psychosocial/ Personal History: Patient 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 with family - Family History Sister -: Diabetes Father -: Hypertension Mother -: Hypertension - Social History Alcohol use: No CD- Drugs: No Caffeine use: Yes Review of Systems General: Weakness, Malaise Eyes: Unremarkable ENT: Unremarkable Respiratory: Cough, Shortness of Breath Cardiovascular: Light Headedness Gastrointestinal: Unremarkable Genitourinary: Unremarkable Musculoskeletal: As per HPI Integumentary: Unremarkable Neurological: Unremarkable Physical Examination - Physical Exam General: Alert, Oriented x3, Acute distress HEENT: Atraumatic, Normocephalic, PERRLA Neck: Supple, 2+ carotid pulse no bruit, JVD not distended Respiratory: Clear to auscultation bilaterally, Expiratory wheezes Cardiovascular: Normal pulses, Regular rate/rhythm, Normal S1 S2, Edema Capillary refill: <2 Seconds Gastrointestinal: Normal bowel sounds, Soft and benign Musculoskeletal: No clubbing, No swelling, No contractures Integumentary: No rashes, No breakdown, No significant lesion Neurological: Normal speech, Normal strength at 5/5 x4 extr, Normal tone - Studies Laboratory Data (last 24 hrs) 01/01/23 01/01/23 01/01/23 10:55 10:55 10:55 WBC 7.10 Hgb 13.8 Hct 42.6 Plt Count 186 PT 11.3 INR 1.03 APTT 35.4 Sodium 134 L Potassium 4.3 BUN 8 Creatinine 0.49 L Glucose 113 H Total Bilirubin 0.3 AST 16 ALT 23 Alkaline Phosphatase 138 H Assessment and Plan - Plan Assessment and plan Acute hypoxic respiratory failure secondary to asthma exacerbation Mild to moderate pulmonary edema Congestive Heart Failure Chest x-ray reports "[id number] pulmonary edema. The heart is moderately enlarged in size. No displaced fractures.Right-sided ventriculostomy tubing seen" Magnesium pending Steroids, albuterol treatment, supplemental Oxygen (uses 3 L home O2 PRN) lasix one dose Continue home medications Diabetes mellitus type 2- NIDDM Accucheck with SSI History of MEDICAL CSR shunt Placed one year ago Monitor and supportive care Follow-up as outpatient Last outpatient visit was approximately 6 months ago DVT PPx Lovenox Full code LOS 2-3 days Discharge Plan: Home Plan to discharge in: 48 Hours - Advance Directives Does patient have a Living Will: No Does patient have a Durable POA for Healthcare: No Time Spent Managing Pts Care (In Minutes): 55
[2023-01-01] MEDS ORDERED: D50W 25 GM/50 ML SYRINGE IV PRN (17:58)
[2023-01-01] MEDS ORDERED: GLUCAGON 1 MG/VIAL IM PRN (17:58)
[2023-01-01] MEDS ORDERED: MORPHINE 2 MG/ML SYR IV PRN (18:13)
[2023-01-01] MEDS ORDERED: METOPROLOL TARTRATE 5 MG/5 ML INJ IV PRN (18:14)
[2023-01-01] MEDS: HEPARIN 5000 UNIT/ML 1 ML VIAL SQ SCH (18:36)
[2023-01-01] MEDS: INSULIN REGULAR (HUMAN) 100 UNIT/ML SQ SCH (18:36)
[2023-01-01] MEDS: METHYLPREDNISOLONE 40 MG INJ IV SCH (18:36)
[2023-01-01] MEDS ORDERED: D10W 125 ML IV PRN (18:42)
[2023-01-01 20:13] VITALS: BMI 51.2
[2023-01-01] MEDS: BENZONATATE 100 MG CAP PO PRN (23:45)
[2023-01-02] MEDS: HEPARIN 5000 UNIT/ML 1 ML VIAL SQ SCH ×3 (01:34→17:00)
[2023-01-02 03:35] LABS: Hematocrit 38.5 % (36.0-45.0); Lymphocytes % 12.6 % (15.3-44.8); MCV 84.7 fL (80-100); MPV 8.6 fL (7.6-11.3); Platelets 195 thou/uL (152-406); RBC Red Blood Cell Count 4.55 M/uL (3.86-4.86)
[2023-01-02 04:12] LABS: Magnesium 1.9 mg/dL (1.6-2.4); Phosphorus 3.1 mg/dL (2.5-4.9); Potassium 4.3 mEq/L (3.5-5.1)
[2023-01-02] MEDS: METHYLPREDNISOLONE 40 MG INJ IV SCH ×2 (05:37→17:58)
[2023-01-02] MEDS: INSULIN REGULAR (HUMAN) 100 UNIT/ML SQ SCH ×3 (07:30→16:30)
[2023-01-02] MEDS ORDERED: INFLUENZA VACCINE (for 6+ mo) 0.5 ML DOSE IMVAC ONE (10:00)
[2023-01-02] MEDS ORDERED: ALBUTEROL 2.5 MG/3 ML NEB SOL NEB PRN (12:00)
[2023-01-02] MEDS: BENZONATATE 100 MG CAP PO PRN (14:12)
[2023-01-02 15:37] VITALS: O2SAT 94
--- NOTE | 2023-01-02 16:03 | P.DS ---
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 Kina reports the shortness of breath came on suddenly 4 days ago and became worse. She was treating with albuterol inhaler and breathing treatments that she uses for an asthma attack. She also has home oxygen as needed. On examinat ion she is on 4 L nasal cannula, coughing, wheezing to bilateral lung space, mild distress noted. While in the ED she has been treated with Atrovent and albuterol, Solu-Medrol, and states that she is feeling some relief. Initial vitals Pulse 96; Resp 25; Temp 98; Pulse Ox 83% on R/A, 93% on 4 LNC. Significant labs bicarb 32, lactic 1.1, potassium 4.3. Chest x-ray reports "[id number] pulmonary edema. The heart is moderately enlarged in size. 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 Kina arrived to the ED in acute distress from asthma exacerbation. She had tried breathing treatments and inhalers not feeling relief. While in the ED she was treated with Atrovent, albuterol, and Solu-Medrol which helped significantly. During admission treatment continued with steroids, nebulizer treatments, and Tessalon Perles. She is back to 2 L nasal cannula, home oxygen level is usually 3 L as needed. She passed her walk test with 2 L nasal cannula sating 94%. She is tolerating p.o. diet, thinking clearly and conversing well, and ambulating independently. On 01/02/2023, Kina was seen on morning rounds and deemed medically stable for discharge. Kina was discharged with instructions to schedule follow-up appointments with PCP. Kina was provided prescriptions for Tessalon Perles. The patient and family members were given the opportunity to ask questions and reported no further questions. Furthermore, all questions were answered to the best of my ability. A copy of this discharge summary will be sent to the above providers to facilitate continuity of care. Today, I personally spent 55 minutes with Kina, of which greater than 50% of th e time was spent in patient education, counseling, and coordination of care as described above. Physical Exam General: Alert, Oriented x3, NAD HEENT: Atraumatic, Normocephalic, PERRLA Neck: Supple, 2+ carotid pulse no bruit, JVD not distended Respiratory: Clear to auscultation bilaterally Cardiovascular: Normal pulses, Regular rate/rhythm, Normal S1 S2, Edema Capillary refill: <2 Seconds Gastrointestinal: Normal bowel sounds, Soft and benign Musculoskeletal: No clubbing, No swelling, No contractures Integumentary: No rashes, No breakdown, No significant lesion Neurological: Normal speech, Normal strength at 5/5 x4 extr, Normal tone Vital Signs/Physical Exam: Temp Pulse Resp BP Pulse Ox 97.2 F 71 20 168/81 H 93 01/02/23 08:00 01/02/23 08:00 01/02/23 08:00 01/02/23 08:00 01/02/23 08:00 Laboratory Data at Discharge: WBC 7.80 thou/uL (4.3-10.9) 01/02/23 02:38 Hgb 12.8 g/dL (12.0-15.0) 01/02/23 02:38 Hct 38.5 % (36.0-45.0) 01/02/23 02:38 Plt Count 195 thou/uL (152-406) 01/02/23 02:38 PT 11.3 SECONDS (9.5-12.5) 01/01/23 10:55 INR 1.03 01/01/23 10:55 APTT 35.4 SECONDS (24.3-36.9) 01/01/23 10:55 Sodium 136 mEq/L (136-145) 01/02/23 02:38 Potassium 4.3 mEq/L (3.5-5.1) 01/02/23 02:38 BUN 12 mg/dL (7-18) 01/02/23 02:38 Creatinine 0.54 mg/dL (0.55-1.02) L 01/02/23 02:38 Glucose 182 mg/dL (74-106) H 01/02/23 02:38 Phosphorus 3.1 mg/dL (2.5-4.9) 01/02/23 02:38 Magnesium 1.9 mg/dL (1.6-2.4) 01/02/23 02:38 Total Bilirubin 0.3 mg/dL (0.2-1.0) 01/01/23 10:55 AST 16 U/L (15-37) 01/01/23 10:55 ALT 23 U/L (13-56) 01/01/23 10:55 Alkaline Phosphatase 138 U/L (45-117) H 01/01/23 10:55 Home Medications: Amlodipine Besylate 1 tab PO DAILY 06/21/22 Albuterol Sulfate [Albuterol Sulfate Hfa] 2 puff IH Q6H PRN #1 inhaler 06/22/22 Metformin HCl [Glucophage*] 500 mg PO DAILY 09/14/22 Benzonatate [Tessalon Perle*] 200 mg PO Q8H PRN 5 Days #15 cap 01/02/23 New Medications: Benzonatate [Tessalon Perle*] 200 mg PO Q8H PRN 5 Days #15 cap PRN Reason: Cough Physician Discharge Instructions: 1.Follow up with PCP for continued medication management for diabetes and asthma 2. No activity restrictions, fall precautions when walking while short of breath 3. Continue with as needed home oxygen 4. Diabetic diet 5. Return to the ED if symptoms worsen New medication tessalon Perle 200 mg PO q8h for cough Diet: ADA Activity: Ad everett Followup: NONE,NONE [Primary Care Provider] - Time spent managing pt's care (in minutes): 55
[2023-01-02 17:20] VITALS: BP 136/75; TEMP 97.3
--- NOTE | 2023-01-04 17:02 | EKG ---
Test Date: 2023-01-01 Test Time: 10:57:16 Regional Director Of Admissions: KLAUDIA MEASUREMENT RESULTS: Intervals: Rate: 84 PA: 178 QRSD: 96 QT: 372 QTc: 439 [place]: P: 41 PA: 178 QRS: 71 T: 44 INTERPRETIVE STATEMENTS: Normal sinus rhythm Normal ECG Compared to ECG 07/01/2022 12:01:13 No significant changes Electronically Signed On 01-04-23 16:54:08 LACTATION COORDINATOR by Rafael Vega
== END 2023-01-02 17:45 | disposition home or self-care (01) ==
LOC: ER 10:34 → ERHOLD 13:35 → 2ND 17:22
PROVIDERS: ADMIT Internal Medicine; ATTEND Internal Medicine
DX: J44.1 Chronic obstructive pulmonary disease with (acute) exacerbation (principal); J96.01 Acute respiratory failure with hypoxia; J81.1 Chronic pulmonary edema; I50.20 Unspecified systolic (congestive) heart failure; E11.9 Type 2 diabetes mellitus without complications; Z98.2 Presence of cerebrospinal fluid drainage device; Z23 Encounter for immunization
CPT/HCPCS: 93005; 87040 ×2; 85025 ×2; 80048; 36415; 83735 ×2; 84100; 85610; 82947 ×5; 83605; 85730; 80053; 71045; 99285; J1815; J1644 ×3; J1940; J7613; J7644; J2930; J7030; J2920 ×2; G0378 ×4

== ENCOUNTER 2023-01-08 19:02 | Observation (INO) | payer OTHER ==
[2023-01-08] MEDS ORDERED: ALBUTEROL 2.5 MG/3 ML NEB SOL ONE ×3 (19:36→22:00)
[2023-01-08] MEDS ORDERED: IPRATROPIUM BROM 0.5MG/2.5ML ONE ×3 (19:37→22:00)
[2023-01-08 20:33] LABS: SARS-COV-2 RT PCR NEGATIVE (NEGATIVE)
[2023-01-08 20:47] LABS: Absolute Lymphocytes (CBC) 2.2 K/uL (0.7-4.9); Hematocrit 39.1 % (36.0-45.0); Lymphocytes % 24.4 % (15.3-44.8); MCV 84.5 fL (80-100); MPV 7.9 fL (7.6-11.3); Platelets 208 thou/uL (152-406); RBC Red Blood Cell Count 4.63 M/uL (3.86-4.86)
[2023-01-08 21:21] LABS: ALT/SGPT 19 U/L (13-56); AST/SGOT 8 U/L (15-37); Alkaline Phosphatase 117 U/L (45-117); BUN Blood Urea Nitrogen 10 mg/dL (7-18); Bicarbonate 29 mEq/L (21-32); Bilirubin Total 0.2 mg/dL (0.2-1.0); Creatine Phosphokinase 32 U/L (26-192); Glomerular Filtration Rate 116 ml/min (=/>90); Glucose Level 157 mg/dL (74-106); Magnesium 1.9 mg/dL (1.6-2.4); NT PRO-BNP 34 pg/mL (<125); Potassium 3.9 mEq/L (3.5-5.1); Protein, Total 7.9 g/dL (6.4-8.2); Sodium Level 137 mEq/L (136-145); Troponin High Sensitivity 4.8 pg/mL (<58.9)
[2023-01-08 21:30] LABS: Bilirubin Direct < 0.1 mg/dL (0-0.2); Bilirubin Indirect, Calculated ND mg/dL (0.2-0.8)
[2023-01-08] MEDS ORDERED: METHYLPREDNISOLONE 125 MG INJ ONE (21:33)
[2023-01-08] MEDS ORDERED: Magnesium Sulfate 2gm IVPB 2 G/50 ML BAG IV ONE (21:34)
--- NOTE | 2023-01-08 21:53 | ER ---
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 Coronavirus screen: Client denies travel out of the [place] in the last 14 days. Ebola Screen: No symptoms or risks identified at this time. Initial Sepsis Screen: Does the patient meet any 2 criteria? HR > 90 bpm. No. Patient's initial sepsis screen is negative. Does the patient have a suspected source of infection? No. Patient's initial sepsis screen is negative. Risk Assessment: Do you want to hurt yourself or someone else? Patient reports no desire to harm self or others. Onset of symptoms was January 07, 2023. 19:07 Method Of Arrival: Wheelchair km8 19:07 Acuity: DOMINIC 2 km8 Triage Assessment: 19:09 General: Appears uncomfortable, Behavior is cooperative, appropriate for age, anxious. km8 Pain: Complains of pain in neck Pain currently is 9 out of 10 on a pain scale. EENT: No signs and/or symptoms were reported regarding the EENT system. Neuro: Santiago Agitation-Sedation Scale (RASS): 0 - Alert and Calm Level of Consciousness is awake, alert, obeys commands, Oriented to person, place, time, situation. Cardiovascular: Reports chest pain, shortness of breath, Capillary refill < 3 seconds Patient's skin is warm and dry. Respiratory: Reports shortness of breath cough that is productive, Airway is patent Respiratory effort is even, labored, Respiratory pattern is regular, symmetrical, Breath sounds with wheezes bilaterally. Onset: The symptoms/episode began/occurred gradually, the patient has moderate shortness of breath. GI: No signs and/or symptoms were reported involving the gastrointestinal system. : No signs and/or symptoms were reported regarding the genitourinary system. Derm: Skin is intact, is healthy with good turgor, Skin is dry, Skin is pink, warm \T\ dry. normal, Skin temperature is warm. Musculoskeletal: Range of motion: intact in all extremities. 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 - Social history:: Smoking status: Patient denies any tobacco usage or history of. Patient/guardian denies using alcohol, street drugs. - Family history:: not pertinent. Screenin:00 [facility] ED Fall Risk Assessment (Adult) History of falling in the last 3 months, ha1 including since admission No falls in past 3 months (0 pts) Confusion or Disorientation No (0 pts) Intoxicated or Sedated No (0 pts) Impaired Gait No (0 pts) Mobility Assist Device Used No (0 pt) Altered Elimination No (0 pt) Score/Fall Risk Level 0 - 2 = Low Risk Oriented to surroundings, Maintained a safe environment, Educated pt \T\ family on fall prevention, incl call for assistance when getting out of bed, Hourly rounding (assess needs \T\ fall precautionary measures) done. 22:22 Abuse screen: Denies threats or abuse. Denies injuries from another. Nutritional ha1 screening: No deficits noted. Tuberculosis screening: No symptoms or risk factors identified. Assessment: 21:10 Cardiovascular: Rhythm is sinus rhythm. ha1 21:30 General: Appears uncomfortable, Behavior is cooperative, anxious. Pain: Complains of ha1 pain in neck Pain does not radiate. Pain currently is 7 out of 10 on a pain scale. Quality of pain is described as tender. Neuro: Level of Consciousness is awake, alert, obeys commands, Oriented to person, place, time, situation. Cardiovascular: Reports shortness of breath, Heart tones S1 S2 present Capillary refill < 3 seconds Patient's skin is warm and dry. Respiratory: Airway is patent Respiratory effort is with nasal flaring, with retractions, Respiratory pattern is tachypnea Breath sounds with wheezes bilaterally. Derm: Skin is pink, warm \T\ dry. Musculoskeletal: Circulation, motion, and sensation intact. Range of motion: intact in all extremities. 22:30 Reassessment: Patient and/or family updated on plan of care and expected duration. Pain ha1 level reassessed. Patient is alert, oriented x 3, equal unlabored respirations, skin warm/dry/pink. Patient states symptoms have improved. 23:40 Reassessment: Patient and/or family updated on plan of care and expected duration. Pain ha1 level reassessed. Patient is alert, oriented x 3, equal unlabored respirations, skin warm/dry/pink. pain 3/10 Patient states feeling better. Patient states symptoms have improved. Vital Signs: 19:07 Pulse 92; Resp 20; Temp 98.1; Pulse Ox 90% on R/A; Weight 133.81 kg (R); Height 5 ft. 0 km8 in. ; Pain 9/10; 19:12 BP 152 / 81; km8 22:00 BP 151 / 71; Pulse 85; Resp 24 S; Pulse Ox 100% on Nebulizer Mask; [facility] 23:00 BP 130 / 83; Pulse 89; Resp 20 S; Pulse Ox 94% on 2 lpm NC; 1 01/09 00:01 BP 150 / 84; Pulse 88; Resp 20 S; Pulse Ox 95% on 2 lpm NC; [facility] 01/08 19:07 Body Mass Index 57.61 (133.81 kg, 152.4 cm) [facility] 01/08 19:07 Pain Scale: Adult [facility] ED Course: 01/08 19:02 Patient arrived in ED. as 19:02 Jericho Coffey DO is Private Physician. as 19:04 Pedrito Andersen MD is Attending Physician. sp4 19:09 Triage completed. km8 19:09 Arm band placed on right wrist. km8 20:15 No provider procedures requiring assistance completed. Inserted saline lock: 22 gauge ha1 in right antecubital area, using aseptic technique. Blood collected. 20:34 BMP Sent. jr12 20:34 Blood Culture Adult (2) Sent. jr12 20:35 CBC with Diff Sent. jr12 20:35 CPK Sent. jr12 20:35 Hepatic Function Sent. jr12 20:35 Magnesium Sent. jr12 20:35 NT PRO-BNP Sent. jr12 20:35 Troponin HS Sent. jr12 21:00 Patient has correct armband on for positive identification. Placed in gown. Bed in low ha1 position. Call light in reach. Side rails up X 1. Adult w/ patient. 21:13 Anival May, RN is Primary Nurse. bp 21:52 Fidel Archer is Hospitalizing Provider. sp4 22:09 Chest Single View XRAY In Process Unspecified. EDMS 01/09 00:11 No provider procedures requiring assistance completed. ha1 00:13 Patient admitted, IV remains in place. ha1 00:14 Provided Education on: need for admit . ha1 Administered Medications: 01/08 21:26 Drug: Albuterol Inhalation 2.5 mg Inhalation every 20 minutes x3 Route: Inhalation; bp 21:26 Drug: Ipratropium Inhalation Aerosol 0.5 mg Inhalation once; Every 20 min for a total bp of 3 treatments x3 Route: Inhalation; 21:26 Drug: MethylPrednisoLONE IVP 125 mg IVP once Route: IVP; Site: right antecubital; bp 21:26 Drug: Magnesium Sulfate IVPB 2 grams IVPB once over 2 hrs Route: IVPB; Infused Over: 2 bp hrs; Site: right antecubital; 22:15 Follow up: Response: No adverse reaction; IV Status: Completed infusion ha1 21:45 Drug: Albuterol Inhalation 2.5 mg Inhalation every 20 minutes x3 Route: Inhalation; ha1 23:00 Follow up: Response: No adverse reaction ha1 21:45 Drug: Ipratropium Inhalation Aerosol 0.5 mg Inhalation once; Every 20 min for a total ha1 of 3 treatments x3 Route: Inhalation; 22:07 Drug: Albuterol Inhalation 2.5 mg Inhalation once Route: Inhalation; ha1 23:00 Follow up: Response: No adverse reaction ha1 22:07 Drug: Ipratropium Inhalation Aerosol 0.5 mg Inhalation once Route: Inhalation; ha1 23:00 Follow up: Response: No adverse reaction ha1 22:07 Drug: Acetaminophen-Codeine PO (300 mg-30 mg) 2 tabs PO once; RASS on ADMIN: Combtv4, ha1 Very Agttd3, Agttd2, Rstlss1, AlertClm0, Drwsy-1, Lt Sdtn-2, Mod Sdtn-3, Dp Sdtn-4, UnArsble-5 Route: PO; 23:00 Follow up: Response: No adverse reaction; Pain is decreased; RASS: Alert and Calm (0) ha1 22:07 Drug: Promethazine PO 25 mg PO once Route: PO; ha1 23:00 Follow up: Response: No adverse reaction ha1 23:17 Drug: Furosemide PO 40 mg PO once Route: PO; bp 01/09 00:00 Follow up: Response: No adverse reaction ha1 Medication: 00:12 VIS not applicable for this client. ha1 Outcome: 01/08 21:52 Decision to Hospitalize by Provider. spErnst 01/09 00:12 Admitted to Med/surg accompanied by tech, via wheelchair, room 230, with chart, Report ha1 called to GLORIA Aquino Condition: stable Discharge instructions given to patient, Instructed on the need for admit, Demonstrated understanding of instructions, 00:14 Patient left the ED. ha1 Signatures: Dispatcher [employer] EDJazmin Larkin Brian, GLORIA RN Patricia Landa RN RN ha1 Pedrito Andersen MD MD sp4 Scarlet Gilman [facility] Christine Morales RN RN km8
--- NOTE | 2023-01-08 21:54 | EDPHYS ---
Physician Documentation [facility] Name: Kina Parham Age: 42 yrs Sex: Female : 1980 Arrival Date: 01/08/2023 Time: 19:02 Bed 7 Private MD: Jericho Coffey ED Physician Pedrito Andersen HPI: 01/08 19:04 This 42 yrs old Female presents to ER via Unassigned with complaints of sp4 Shortness Of Breath. 20:40 42-year-old female with past medical history of asthma presents with 24 hours worsening sp4 dyspnea and also chest discomfort. . 21:50 Patient has history of admission here 01/01/2023 discharged 01/02/2023. Patient has sp4 past medical history of ROVING HAND shunt 1 year ago, arthritis, asthma, hypertension, pneumonia, diabetes. Patient was admitted for acute hypoxic respiratory failure secondary to asthma exacerbation, mild to moderate pulmonary edema, diabetes mellitus type 2. Otherwise patient was successfully managed and discharged. Her medications at home include amlodipine besylate, albuterol nebulized, metformin 500 p.o. daily, benzonatate as needed cough. 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 - Social history:: Smoking status: Patient denies any tobacco usage or history of. Patient/guardian denies using alcohol, street drugs. - Family history:: not pertinent. ROS: 20:40 Constitutional: Negative for fever, chills, and weight loss, positive dyspnea positive sp4 chest discomfort 20:40 All other systems are negative, Exam: 20:39 ECG was reviewed by the Attending Physician. EKG time 2024 there is normal sinus sp4 rhythm at a rate of 88, there is muscle tremor artifact, otherwise no problem 20:40 Constitutional: This is a well developed, well nourished patient who is awake, alert, sp4 and in no acute distress. Morbidly obese female Head/Face: Normocephalic, atraumatic. Eyes: Pupils equal round and reactive to light, extra-ocular motions intact. Lids and lashes normal. Conjunctiva and sclera are not injected. Cornea within normal limits. Periorbital areas with no swelling, redness, or edema. ENT: Nares patent. No nasal discharge, no septal abnormalities noted. Tympanic membranes are normal and external auditory canals are clear. Oropharynx with no redness, swelling, or masses, exudates, or evidence of obstruction, uvula midline. Mucous membranes moist. Neck: Trachea midline, no thyromegaly or masses palpated, and no cervical lymphadenopathy. Supple, full range of motion without nuchal rigidity, or vertebral point tenderness. Chest/axilla: Normal chest wall appearance and motion. Nontender with no deformity. No lesions are appreciated. Cardiovascular: Regular rate and rhythm with a normal S1 and S2. No gallops, murmurs, or rubs. Normal PMI, no JVD. No pulse deficits. Respiratory: Lungs have equal breath sounds bilaterally, bilateral expiratory wheezes, mild retractions, mild accessory muscle use, no crackles Abdomen/GI: Soft, non-tender, with normal bowel sounds. No distension or tympany. No guarding or rebound. No evidence of tenderness throughout. Back: No spinal tenderness. No costovertebral tenderness. Skin: Warm, dry with normal turgor. Normal color with no rashes, no lesions, and no evidence of cellulitis. MS/ Extremity: Pulses equal, no cyanosis. Neurovascular intact. Full, normal range of motion. Neuro: Awake and alert, GCS 15, oriented to person, place, time, and situation. Cranial nerves II-XII grossly intact. Motor strength 5/5 in all extremities. Sensory grossly intact. Psych: Awake, alert, with orientation to person, place and time. Behavior, mood, and affect are within normal limits Vital Signs: 19:07 Pulse 92; Resp 20; Temp 98.1; Pulse Ox 90% on R/A; Weight 133.81 kg (R); Height 5 ft. 0 km8 in. ; Pain 9/10; 19:12 BP 152 / 81; km8 22:00 BP 151 / 71; Pulse 85; Resp 24 S; Pulse Ox 100% on Nebulizer Mask; ha1 23:00 BP 130 / 83; Pulse 89; Resp 20 S; Pulse Ox 94% on 2 lpm NC; [facility] 01/09 00:01 BP 150 / 84; Pulse 88; Resp 20 S; Pulse Ox 95% on 2 lpm NC; [facility] 01/08 19:07 Body Mass Index 57.61 (133.81 kg, 152.4 cm) [facility] 01/08 19:07 Pain Scale: Adult [facility] MDM: 01/08 19:12 Patient medically screened. [facility] 21:53 Differential diagnosis: Anxiety Reaction asthma, Bronchitis Chronic Obstructive sp4 Pulmonary Disease pneumonia, Psychogenic. Data reviewed: vital signs, nurses notes, old medical records, lab test result(s), EKG, radiologic studies, plain films. Consideration of Admission/Observation Patient was admitted/placed on observation. Escalation of care including admission/observation considered. Management of patient was discussed with the following: Hospitalist: Dr. Archer . 01/08 19:20 Order name: BMP; Complete Time: 21:39 [facility] 01/08 19:20 Order name: Blood Culture Adult (2) [facility] 01/08 19:20 Order name: CBC with Diff; Complete Time: 21:39 [facility] 01/08 19:20 Order name: CPK; Complete Time: 21:39 [facility] 01/08 19:20 Order name: Hepatic Function; Complete Time: 21:39 [facility] 01/08 19:20 Order name: Magnesium; Complete Time: 21:39 [facility] 01/08 19:20 Order name: NT PRO-BNP; Complete Time: 21:39 [facility] 01/08 19:20 Order name: Troponin HS; Complete Time: 21:39 [facility] 01/08 19:20 Order name: COVID-19/FLU A+B; Complete Time: 20:36 [facility] 01/08 22:48 Order name: Urinalysis w/ reflexes EDMS 01/08 22:48 Order name: Basic Metabolic Panel EDMS 01/08 22:48 Order name: Basic Metabolic Panel EDMS 01/08 22:48 Order name: CBC with Automated Diff EDMS 01/08 22:48 Order name: CBC with Automated Diff EDMS 01/08 22:48 Order name: Magnesium EDMS 01/08 22:48 Order name: Magnesium EDMS 01/08 22:48 Order name: Phosphorus EDMS 01/08 22:48 Order name: Phosphorus EDMS 01/08 22:48 Order name: Thyroid Stimulating Hormone [facility] 01/08 22:48 Order name: Thyroid Stimulating Hormone [facility] 01/08 21:48 Order name: Chest Single View XRAY; Complete Time: 22:42 sp4 01/08 19:20 Order name: EKG; Complete Time: 19:20 sp4 01/08 19:20 Order name: Cardiac monitoring; Complete Time: 21:14 sp4 01/08 19:20 Order name: EKG - Nurse/Tech; Complete Time: 20:34 sp4 01/08 19:20 Order name: IV Saline Lock; Complete Time: 20:34 sp4 01/08 19:20 Order name: Labs collected and sent; Complete Time: 20:34 sp4 01/08 19:20 Order name: O2 Per Protocol; Complete Time: 20:34 4 01/08 19:20 Order name: O2 Sat Monitoring; Complete Time: 20:35 sp4 EC:39 Rate is 88 beats/min. Rhythm is regular, Normal Sinus Rhythm. QRS [place]ow is Normal. OR sp4 interval is normal. QRS interval is normal. QT interval is normal. No Q waves. T waves are Normal. No ST changes noted. Clinical impression: Normal ECG. Interpreted by me. Reviewed by me. Administered Medications: 21:26 Drug: Albuterol Inhalation 2.5 mg Inhalation every 20 minutes x3 Route: Inhalation; bp 21:26 Drug: Ipratropium Inhalation Aerosol 0.5 mg Inhalation once; Every 20 min for a total bp of 3 treatments x3 Route: Inhalation; 21:26 Drug: MethylPrednisoLONE IVP 125 mg IVP once Route: IVP; Site: right antecubital; bp 21:26 Drug: Magnesium Sulfate IVPB 2 grams IVPB once over 2 hrs Route: IVPB; Infused Over: 2 bp hrs; Site: right antecubital; 22:15 Follow up: Response: No adverse reaction; IV Status: Completed infusion ha1 21:45 Drug: Albuterol Inhalation 2.5 mg Inhalation every 20 minutes x3 Route: Inhalation; ha1 23:00 Follow up: Response: No adverse reaction ha1 21:45 Drug: Ipratropium Inhalation Aerosol 0.5 mg Inhalation once; Every 20 min for a total ha1 of 3 treatments x3 Route: Inhalation; 22:07 Drug: Albuterol Inhalation 2.5 mg Inhalation once Route: Inhalation; ha1 23:00 Follow up: Response: No adverse reaction ha1 22:07 Drug: Ipratropium Inhalation Aerosol 0.5 mg Inhalation once Route: Inhalation; ha1 23:00 Follow up: Response: No adverse reaction ha1 22:07 Drug: Acetaminophen-Codeine PO (300 mg-30 mg) 2 tabs PO once; RASS on ADMIN: Combtv4, ha1 Very Agttd3, Agttd2, Rstlss1, AlertClm0, Drwsy-1, Lt Sdtn-2, Mod Sdtn-3, Dp Sdtn-4, UnArsble-5 Route: PO; 23:00 Follow up: Response: No adverse reaction; Pain is decreased; RASS: Alert and Calm (0) ha1 22:07 Drug: Promethazine PO 25 mg PO once Route: PO; ha1 23:00 Follow up: Response: No adverse reaction ha1 23:17 Drug: Furosemide PO 40 mg PO once Route: PO; bp 01/09 00:00 Follow up: Response: No adverse reaction 1 Disposition: 01/08 21:52 Critical Care:. sp4 Disposition Summary: 01/08/23 21:52 Hospitalization Ordered Notes: Hospitalization Status: Observation sp4 Provider: Fidel Archer Location: Telemetry/MedSur (observation) sp4 Condition: Fair sp4 Problem: new sp4 Symptoms: are unchanged sp4 Bed/Room Type: Standard sp4 Room Assignment: 230(01/08/23 23:42) rv1 Diagnosis - Moderate persistent asthma with (acute) exacerbation sp4 Forms: - Medication Reconciliation Form sp4 - SBAR form sp4 - Leadership Thank You Letter sp4 Critical care time excluding procedures: 21:52 Critical care time: Bedside Care: 36 minutes, Consultation: 10 minutes, Family sp4 Intervention: 12 minutes. Total time: 58 minutes Signatures: Dispatcher [employer] Anival Eduardo RN RN bp Patricia Landa RN RN ha1 Tawana Sanz 1 Pedrito Andersen MD MD sp4 Christine Morales RN RN km8 Corrections: (The following items were deleted from the chart) 21:52 20:40 Constitutional: This is a well developed, well nourished patient who is awake, sp4 alert, and in no acute distress. Morbidly obese female Head/Face: Normocephalic, atraumatic. Eyes: Pupils equal round and reactive to light, extra-ocular motions intact. Lids and lashes normal. Conjunctiva and sclera are not injected. Cornea within normal limits. Periorbital areas with no swelling, redness, or edema. ENT: Nares patent. No nasal discharge, no septal abnormalities noted. Tympanic membranes are normal and external auditory canals are clear. Oropharynx with no redness, swelling, or masses, exudates, or evidence of obstruction, uvula midline. Mucous membranes moist. Neck: Trachea midline, no thyromegaly or masses palpated, and no cervical lymphadenopathy. Supple, full range of motion without nuchal rigidity, or vertebral point tenderness. Chest/axilla: Normal chest wall appearance and motion. Nontender with no deformity. No lesions are appreciated. Cardiovascular: Regular rate and rhythm with a normal S1 and S2. No gallops, murmurs, or rubs. Normal PMI, no JVD. No pulse deficits. Respiratory: Lungs have equal breath sounds bilaterally, clear to auscultation and percussion. No rales, rhonchi or wheezes noted. No increased work of breathing, no retractions or nasal flaring. Abdomen/GI: Soft, non-tender, with normal bowel sounds. No distension or tympany. No guarding or rebound. No evidence of tenderness throughout. Back: No spinal tenderness. No costovertebral tenderness. Skin: Warm, dry with normal turgor. Normal color with no rashes, no lesions, and no evidence of cellulitis. MS/ Extremity: Pulses equal, no cyanosis. Neurovascular intact. Full, normal range of motion. Neuro: Awake and alert, GCS 15, oriented to person, place, time, and situation. Cranial nerves II-XII grossly intact. Motor strength 5/5 in all extremities. Sensory grossly intact. Psych: Awake, alert, with orientation to person, place and time. Behavior, mood, and affect are within normal limits sp4 23:42 21:52 sp4 rv1
[2023-01-08] MEDS ORDERED: PROMETHAZINE 25 MG TABLET ONE (22:14)
[2023-01-08] MEDS ORDERED: CODEINE 30MG/APAP 300MG TAB ONE (22:15)
--- NOTE | 2023-01-08 22:25 | RAD REPORT ---
EXAM DESCRIPTION: Ysaht Single View01/08/2023 10:07 pm CLINICAL HISTORY: CHEST PAIN COMPARISON: Chest Single View dated 01/01/2023; Chest Single View dated 09/14/2022; Chest Single View dated 07/01/2022; Chest Single View dated 02/19/2022 TECHNIQUE: Portable AP view of the chest. FINDINGS: Mildly improved central interstitial prominence. No new focal airspace opacities. Ventricu lar peritoneal shunt catheter again seen. No pneumothorax or effusion. The cardiomediastinal contour s are unremarkable. IMPRESSION: Mild improvement of central interstitial prominence suggesting improving CHF. No other a cute cardiopulmonary process.
[2023-01-08] MEDS ORDERED: ONDANSETRON 4 MG/2 ML VIAL IV PRN (22:40)
--- NOTE | 2023-01-08 22:52 | P.HP ---
Certification for Inpatient Patient admitted to: Observation With expected LOS: >2 Midnights Practitioner: I am a practitioner with admitting privileges, knowledge of patient current condition, hospital course, and medical plan of care. Services: Services provided to patient in accordance with Admission requirements found in Title 42 Section 412.3 of the Code of Federal Regulations Patient History Date of Service: 01/08/23 Reason for admission: Asthma attack History of Present Illness: 42-year-old morbidly obese woman with a history of asthma, hypertension, status post APPEALS ASSISTANT shunt presented to the emergency department with a complaint of acute asthma attack. Patient reported shortness of breath and wheezing of onset this morning. Symptoms associated with nonproductive cough. Patient denied any fever. She was hospitalized 1 week ago for acute asthma, spent 1 day in the hospital due to rapid improvement with treatment. Patient states that she used her inhalers and nebulizers at home without much improvement. She was given 3 rounds of albuterol and ipratropium nebulizer treatment in the ED with only partial improvement. Patient was given high-dose Solu-Medrol, and IV magnesium. Chest x-ray report is pending. Patient is hospitalized for further management. Allergies No Known Allergies Allergy (Verified 09/15/22 06:09) Home Medications: Amlodipine Besylate 1 tab PO DAILY 06/21/22 Albuterol Sulfate [Albuterol Sulfate Hfa] 2 puff IH Q6H PRN #1 inhaler 06/22/22 Metformin HCl [Glucophage*] 500 mg PO DAILY 09/14/22 Benzonatate [Tessalon Perle*] 200 mg PO Q8H PRN 5 Days #15 cap 01/02/23 - Past Medical/Surgical History Diabetic: No -: Asthma -: Hypertension -: Prediabetic -: APPEALS ASSISTANT shunt Psychosocial/ Personal History: Patient 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 with family - Family History Sister -: Diabetes Father -: Hypertension Mother -: Hypertension - Social History Alcohol use: No CD- Drugs: No Caffeine use: Yes Review of Systems Other: Patient denies any chest pain. She denies any abdominal pain. She denies any heartburn. She denies any fever. Except as documented, all other systems reviewed and negative. Physical Examination - Physical Exam General: Alert, Mild distress, Obese HEENT: PERRLA, Mucous membr. moist/pink, EOMI, Sclerae nonicteric Neck: Supple, JVD not distended Respiratory: Diminished, Expiratory wheezes Cardiovascular: Regular rate/rhythm, Normal S1 S2, Edema (1+ bilateral lower extremity edema) Capillary refill: <2 Seconds Gastrointestinal: Normal bowel sounds, Soft and benign, Non-distended, No tenderness Musculoskeletal: No swelling, No tenderness Integumentary: No rashes, No cyanosis Neurological: Normal speech, Normal strength at 5/5 x4 extr, Cranial nerves 3-12 intact Lymphatics: No axilla or inguinal lymphadenopathy - Studies Laboratory Data (last 24 hrs) 01/08/23 01/08/23 20:00 20:00 WBC 9.00 Hgb 12.4 Hct 39.1 Plt Count 208 Sodium 137 Potassium 3.9 BUN 10 Creatinine 0.54 L Glucose 157 H Magnesium 1.9 Total Bilirubin 0.2 AST 8 L ALT 19 Alkaline Phosphatase 117 Assessment and Plan - Problems (Diagnosis) (1) Morbid obesity Current Visit: Yes Status: Acute (2) Asthma with acute exacerbation Current Visit: No Status: Acute Qualifiers: Asthma severity: moderate Asthma persistence: persistent Qualified Code(s): J45.41 - Moderate persistent asthma with (acute) exacerbation (3) Hypertension Current Visit: No Status: Acute Qualifiers: Hypertension type: primary hypertension Qualified Code(s): I10 - Essential (primary) hypertension - Plan Acute asthma exacerbation Place under observation on the medical floor Treat acute asthma is with IV steroid, scheduled nebs. Supplemental oxygen as needed Continue home bronchodilators. Trial of PPI for possible GERD Pulmonary consult. Morbid obesity Weight loss by diet and exercise advised. Check TSH. Essential hypertension Continue home antihypertensives. - Advance Directives Does patient have a Living Will: No Does patient have a Durable POA for Healthcare: No
[2023-01-08] MEDS ORDERED: NA CHLORIDE 0.9% 1,000 ML IV SCH (23:00)
[2023-01-08] MEDS ORDERED: FUROSEMIDE 40 MG TABLET ONE (23:23)
[2023-01-09 00:51] VITALS: BMI 67.1
[2023-01-09] MEDS: METHYLPREDNISOLONE 125 MG INJ IV SCH ×3 (01:22→12:00)
[2023-01-09] MEDS: INSULIN REGULAR (HUMAN) 100 UNIT/ML SQ SCH ×5 (01:23→20:59)
[2023-01-09] MEDS: ALBUTEROL 2.5 MG/3 ML NEB SOL NEB SCH ×5 (01:34→19:14)
[2023-01-09] MEDS: IPRATROPIUM BROM 0.5MG/2.5ML NEB SCH ×5 (01:34→19:14)
[2023-01-09 03:35] LABS: Specific Gravity 1.009 (1.005-1.030); Urine Bacteria None Seen /HPF (<20); Urine Bilirubin NEGATIVE (Negative); Urine Blood Negative (Negative); Urine Clarity Clear (Clear); Urine Color Colorless (Yellow); Urine Glucose NEGATIVE (Negative); Urine Protein 1+ (Negative); Urine RBC <5 /HPF (None Seen); Urine Urobilinogen Normal (Normal)
[2023-01-09 06:18] LABS: Absolute Lymphocytes (CBC) 0.7 K/uL (0.7-4.9); Hematocrit 38.6 % (36.0-45.0); Lymphocytes % 6.5 % (15.3-44.8); MCV 84.7 fL (80-100); MPV 8.4 fL (7.6-11.3); Platelets 228 thou/uL (152-406); RBC Red Blood Cell Count 4.55 M/uL (3.86-4.86)
[2023-01-09 06:43] LABS: Magnesium 1.9 mg/dL (1.6-2.4); Phosphorus 3.2 mg/dL (2.5-4.9); Potassium 4.5 mEq/L (3.5-5.1); Thyroid Stimulating Hormone 0.296 uIU/mL (0.358-3.740)
[2023-01-09] MEDS: ENOXAPARIN 40 MG/0.4 ML SQ SCH (09:29)
[2023-01-09] MEDS: AMLODIPINE 5 MG TAB PO SCH (09:36)
[2023-01-09] MEDS: ACETAMINOPHEN 500 MG TAB PO PRN ×2 (10:01→21:04)
--- NOTE | 2023-01-09 12:09 | P.CNS ---
Date of Consult: 01/09/23 Chief Complaint: Asthma attack History of Present Illness: Patient is 42 years of age history of asthma was recently discharged with recurrent admission has been sick for about a week complaining of shortness of breath cough from using nebulizers at home and oxygen daughter at the bedside Allergies No Known Allergies Allergy (Verified 09/15/22 06:09) Home Medications: Amlodipine Besylate 1 tab PO DAILY 06/21/22 Albuterol Sulfate [Albuterol Sulfate Hfa] 2 puff IH Q6H PRN #1 inhaler 06/22/22 Metformin HCl [Glucophage*] 500 mg PO DAILY 09/14/22 - Past Medical/Surgical History Diabetic: No -: Asthma -: Hypertension -: Prediabetic -: 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 Psychosocial/ Personal History: Patient 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 with family - Family History Sister Medical History: Diabetes Father Medical History: Hypertension Mother Medical History: Hypertension - Social History Smoking Status: Current some day smoker Alcohol use: No CD- Drugs: No Caffeine use: Yes Place of Residence: Home Review of Systems 10-point ROS is otherwise unremarkable General: Other (Patient complains of snoring excessive daytime somnolence) Respiratory: Cough, Shortness of Breath, Wheezing Physical Examination Temp Pulse Resp BP Pulse Ox 96.8 F 81 16 136/73 95 01/09/23 11:45 01/09/23 11:45 01/09/23 11:45 01/09/23 11:45 01/09/23 11:45 General: Alert, Oriented x3 Neck: Supple Cardiovascular: No edema, Regular rate/rhythm, Normal S1 S2 Gastrointestinal: Normal bowel sounds, Soft and benign, Non-distended Laboratory Data (last 24 hrs) 01/08/23 01/08/23 20:00 20:00 WBC 9.00 Hgb 12.4 Hct 39.1 Plt Count 208 Sodium 137 Potassium 3.9 BUN 10 Creatinine 0.54 L Glucose 157 H Magnesium 1.9 Total Bilirubin 0.2 AST 8 L ALT 19 Alkaline Phosphatase 117 - Problems (1) Asthma with acute exacerbation Current Visit: No Status: Acute Plan: Patient is 42 years of age morbidly obese admitted with worsening dyspnea recurrent admission needs to be on a steroid inhaler most likely triple therapy for now x-ray shows cardiomegaly need an echocardiogram may have underlying heart failure presumed diastolic dysfunction patient is also on oxygen at night Labs chemistries reviewed BNP is normal normal echo patient will need to be discharged home at this time either on Advair or Symbicort follow-up with me as an outpatient I also ordered ABG probably have underlying obesity hypoventilation syndrome patient does use oxygen at night Qualifiers: Asthma severity: moderate Asthma persistence: persistent Qualified Code(s): J45.41 - Moderate persistent asthma with (acute) exacerbation (2) Obesity with alveolar hypoventilation Current Visit: Yes Status: Acute Plan: Patient has chronic alveolary hypoventialtion from obesity with recurrent admissions, hypercapnea and will benefit form NIV. BIPAP not suitable due to hypoventilation Qualifiers: Body mass index: BMI 60.0-69.9
[2023-01-09] MEDS: LORATADINE 10 MG TAB PO SCH (12:33)
[2023-01-09] MEDS: DULERA 200/5 (MOMETASONE/FORMOTEROL) INHALER IH SCH ×2 (12:36→20:59)
[2023-01-09 16:30] LABS: Blood O2 Saturation 89.2 % (92-98.5)
[2023-01-09 16:31] LABS: Arterial Blood Carboxyhemoglob 1.1 % (0-1.5)
--- NOTE | 2023-01-09 18:01 | P.PN ---
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 Patient reported shortness of breath and wheezing of onset this morning. Symptoms associated with nonproductive cough. Patient denied any fever. She was hospitalized 1 week ago for acute asthma, spent 1 day in the hospital due to rapid improvement with treatment. Patient states that she used her inhalers and nebulizers at home without much improvement. She was given 3 rounds of albuterol and ipratropium nebulizer treatment in the ED with only partial improvement. Patient was given high-dose Solu-Medrol, and IV magnesium. Chest x-ray report is pending. Patient is hospitalized for further management. 01/09: Kina is awake and oriented, she is coughing an on 2 LNC. Her daughter is at the bedside stating she became worse after previous discharge. Dr. Rock has been consulted. Will continue with breathing treatments. She denies fever, chills, abdominal pain, and headache. Review of Systems 10-point ROS is otherwise unremarkable Physical Examination - Vital Signs Temperature: 98.0 F Blood Pressure: 150/68 Pulse: 93 Respirations: 16 Pulse Ox (%): 93 - Studies Laboratory Data (last 24 hrs) 01/08/23 01/08/23 20:00 20:00 WBC 9.00 Hgb 12.4 Hct 39.1 Plt Count 208 Sodium 137 Potassium 3.9 BUN 10 Creatinine 0.54 L Glucose 157 H Magnesium 1.9 Total Bilirubin 0.2 AST 8 L ALT 19 Alkaline Phosphatase 117 Assessment And Plan - Plan Physical Exam General: Alert, Mild distress, Obese HEENT: PERRLA, Mucous membr. moist/pink, EOMI, Sclerae nonicteric Neck: Supple, JVD not distended Respiratory: Diminished, Expiratory wheezes Cardiovascular: Regular rate/rhythm, Normal S1 S2, Edema (1+ bilateral lower extremity edema) Capillary refill: <2 Seconds Gastrointestinal: Normal bowel sounds, Soft and benign, Non-distended, No tenderness Musculoskeletal: No swelling, No tenderness Integumentary: No rashes, No cyanosis Neurological: Normal speech, Normal strength at 5/5 x4 extr, Cranial nerves 3-12 intact Lymphatics: No axilla or inguinal lymphadenopathy Plan Acute asthma exacerbation Place under observation on the medical floor IV steroid, scheduled nebs. Supplemental oxygen as needed Continue home bronchodilators. Trial of PPI for possible GERD Pulmonary consult. Morbid obesity Weight loss by diet and exercise advised. Check TSH. Essential hypertension Continue home antihypertensives. DVT ppx lovenox Full code LOS 24 hours Discharge Plan: Home Plan to discharge in: 24 Hours Time Spent Managing PTS Care (In Minutes): 35
[2023-01-09] MEDS ORDERED: PANTOPRAZOLE 40 MG INJ IVP SCH (18:18)
[2023-01-09] MEDS: predniSONE 20 MG TAB PO SCH (20:59)
[2023-01-10] MEDS: IPRATROPIUM BROM 0.5MG/2.5ML NEB SCH ×3 (01:05→12:50)
[2023-01-10] MEDS: ALBUTEROL 2.5 MG/3 ML NEB SOL NEB SCH ×3 (01:05→12:50)
[2023-01-10] MEDS: INSULIN REGULAR (HUMAN) 100 UNIT/ML SQ SCH ×2 (07:30→11:30)
[2023-01-10] MEDS: DULERA 200/5 (MOMETASONE/FORMOTEROL) INHALER IH SCH (09:00)
[2023-01-10 09:21] LABS: Hematocrit 37.2 % (36.0-45.0); Lymphocytes % 17.1 % (15.3-44.8); MCV 84.6 fL (80-100); MPV 8.1 fL (7.6-11.3); Platelets 235 thou/uL (152-406); RBC Red Blood Cell Count 4.39 M/uL (3.86-4.86)
[2023-01-10] MEDS: LORATADINE 10 MG TAB PO SCH (09:31)
[2023-01-10] MEDS: ENOXAPARIN 40 MG/0.4 ML SQ SCH (09:31)
[2023-01-10] MEDS: AMLODIPINE 5 MG TAB PO SCH (09:31)
[2023-01-10] MEDS: predniSONE 20 MG TAB PO SCH (09:32)
[2023-01-10 09:36] LABS: Phosphorus 2.6 mg/dL (2.5-4.9); Potassium 4.1 mEq/L (3.5-5.1)
[2023-01-10 12:09] VITALS: BP 139/77; TEMP 96.9
--- NOTE | 2023-01-10 12:23 | P.PN ---
Subjective Date of Service: 01/10/23 Chief Complaint: Asthma attack Subjective: Improving (Patient is improving doing better sitting on the chair daughter at the bedside shortness of breath has improved) Review of Systems is unable to be obtained Physical Examination - Vital Signs Temperature: 96.9 F Blood Pressure: 139/77 Pulse: 71 Respirations: 16 Pulse Ox (%): 89 - Physical Exam General: Alert, Oriented x2 Respiratory: Clear to auscultation bilaterally, Diminished Cardiovascular: No edema, Regular rate/rhythm Assessment And Plan - Current Problems (Diagnosis) (1) Asthma with acute exacerbation Current Visit: No Status: Acute Plan: Patient is doing much better Well last night found by the daughter discharged home on Dulera add low-dose prednisone at discharge Qualifiers: Asthma severity: moderate Asthma persistence: persistent Qualified Code(s): J45.41 - Moderate persistent asthma with (acute) exacerbation (2) Obesity with alveolar hypoventilation Current Visit: Yes Status: Acute Plan: Noninvasive ventilator order patient is high risk benefit from treatment patient is borderline hypercapnic Qualifiers: Body mass index: BMI 60.0-69.9
[2023-01-10 14:05] VITALS: O2SAT 97
--- NOTE | 2023-01-10 15:46 | P.DS ---
Admission Date: 01/08/23 Discharge Date: 01/10/23 Disposition: ROUTINE DISCHARGE Discharge Condition: GOOD Reason for Admission: Asthma attack - Problems (1) Morbid obesity Status: Acute (2) Asthma with acute exacerbation Status: Acute Qualifiers: Asthma severity: moderate Asthma persistence: persistent Qualified Code(s): J45.41 - Moderate persistent asthma with (acute) exacerbation (3) Hypertension Status: Acute Qualifiers: Hypertension type: primary hypertension Qualified Code(s): I10 - Essential (primary) hypertension Brief History of Present Illness: 42-year-old morbidly obese woman with a history of asthma, hypertension, status 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 Patient reported shortness of breath and wheezing of onset this morning. Symptoms associated with nonproductive cough. Patient denied any fever. She was hospitalized 1 week ago for acute asthma, spent 1 day in the hospital due to rapid improvement with treatment. Patient states that she used her inhalers and nebulizers at home without much improvement. She was given 3 rounds of albuterol and ipratropium nebulizer treatment in the ED with only partial improvement. Patient was given high-dose Solu-Medrol, and IV magnesium. Chest x-ray showed improvement central interstitial prominence. Patient was hospitalized for further management. Hospital Course: Patient was treated with IV Solu-Medrol, scheduled bronchodilators and nebs for acute asthma. She was initially requiring 2 L of oxygen. Oxygen was weaned off as her respiratory status improved with treatment. Patient was seen in consultation by pulmonary Dr. Rock. IV steroid was transitioned to oral prednisone. Patient respiratory status is improved to baseline. She ambulated without oxygen. Patient is deemed stable for discharge. She is discharged with oral prednisone. Vital Signs/Physical Exam: Temp Pulse Resp BP Pulse Ox 96.9 F 71 16 139/77 89 L 01/10/23 12:25 01/10/23 12:25 01/10/23 12:25 01/10/23 12:25 01/10/23 12:25 General: Alert, In no apparent distress, Oriented x3, Obese HEENT: Mucous membr. moist/pink Neck: Supple, JVD not distended Respiratory: Clear to auscultation bilaterally, Normal air movement Cardiovascular: No edema, Regular rate/rhythm, Normal S1 S2 Gastrointestinal: Normal bowel sounds, Soft and benign, Non-distended, No tenderness Musculoskeletal: No swelling Integumentary: No rashes Neurological: Normal strength at 5/5 x4 extr Laboratory Data at Discharge: WBC 11.70 thou/uL (4.3-10.9) H 01/10/23 09:11 Hgb 11.7 g/dL (12.0-15.0) L 01/10/23 09:11 Hct 37.2 % (36.0-45.0) 01/10/23 09:11 Plt Count 235 thou/uL (152-406) 01/10/23 09:11 Sodium 136 mEq/L (136-145) 01/10/23 09:11 Potassium 4.1 mEq/L (3.5-5.1) 01/10/23 09:11 BUN 9 mg/dL (7-18) 01/10/23 09:11 Creatinine 0.54 mg/dL (0.55-1.02) L 01/10/23 09:11 Glucose 172 mg/dL (74-106) H 01/10/23 09:11 Phosphorus 2.6 mg/dL (2.5-4.9) 01/10/23 09:11 Magnesium 2.0 mg/dL (1.6-2.4) 01/10/23 09:11 Total Bilirubin 0.2 mg/dL (0.2-1.0) 01/08/23 20:00 AST 8 U/L (15-37) L 01/08/23 20:00 ALT 19 U/L (13-56) 01/08/23 20:00 Alkaline Phosphatase 117 U/L (45-117) 01/08/23 20:00 Home Medications: Amlodipine Besylate 1 tab PO DAILY 06/21/22 Albuterol Sulfate [Albuterol Sulfate Hfa] 2 puff IH Q6H PRN #1 inhaler 06/22/22 Metformin HCl [Glucophage*] 500 mg PO DAILY 09/14/22 Fluticasone [Flonase 50mcg Nasal [place]] 120 sprays ANN DAILY 30 Days #1 btl 12/15 10/05 Ipratropium Neb [Atrovent*] 0.5 mg NEB Q6H PRN 3 Days #120 amp 01/10/23 Mometasone/Formoterol [Dulera 200 Mcg/5 Mcg Inhaler] 2 puff IH BID 30 Days #1 inhaler 01/10/23 predniSONE [Deltasone*] 10 mg PO BID 7 Days #14 tab 01/10/23 New Medications: Ipratropium Neb [Atrovent*] 0.5 mg NEB Q6H PRN 3 Days #120 amp PRN Reason: Wheezing predniSONE [Deltasone*] 10 mg PO BID 7 Days #14 tab Mometasone/Formoterol [Dulera 200 Mcg/5 Mcg Inhaler] 2 puff IH BID 30 Days #1 inhaler Fluticasone [Flonase 50mcg Nasal [place]] 120 sprays ANN DAILY 30 Days #1 btl Physician Discharge Instructions: 1. Follow up with Dr. Rock for further asthma management and NIV device 2. Follow up with PCP for medication management 3. continue diabetic diet 4. no activity restrictions 5. return to the ED if symptoms return New medications Flonase nasal spray symbicort inhaler albuterol nebulizer Diet: ADA Activity: Ad everett Followup: Riki Rock MD [ACTIVE - CAN ADMIT] - Jericho Coffey DO [Primary Care Provider] - Time spent managing pt's care (in minutes): 33
--- NOTE | 2023-01-12 15:31 | EKG ---
Test Date: 2023-01-08 Test Time: 20:26:07 Massage Therapist: IVETTE MEASUREMENT RESULTS: Intervals: Rate: 86 NJ: 178 QRSD: 88 QT: 364 QTc: 435 [place]: P: 47 NJ: 178 QRS: 65 T: 26 INTERPRETIVE STATEMENTS: Normal sinus rhythm Normal ECG Compared to ECG 01/08/2023 20:25:19 No significant changes Electronically Signed On 01-12-23 15:16:56 COMPANY TRUCK DRIVER by Rafael Vega
--- NOTE | 2023-01-12 15:31 | EKG ---
Test Date: 2023-01-08 Test Time: 20:25:19 Deputy Assessor: IVETTE MEASUREMENT RESULTS: Intervals: Rate: 88 NV: 178 QRSD: 88 QT: 362 QTc: 438 [place]: P: 42 NV: 178 QRS: 65 T: 23 INTERPRETIVE STATEMENTS: Normal sinus rhythm Normal ECG Compared to ECG 01/01/2023 10:57:16 No significant changes Electronically Signed On 01-12-23 15:16:58 OFFSET PRESS OPERATOR HELPER by Rafael Vega
== END 2023-01-10 14:22 | disposition home or self-care (01) ==
LOC: ER 19:02 → ERHOLD 22:37 → 2ND 01-09 00:01
PROVIDERS: ADMIT Internal Medicine; ATTEND Internal Medicine
DX: J45.41 Moderate persistent asthma with (acute) exacerbation (principal); E66.2 Morbid (severe) obesity with alveolar hypoventilation; I10 Essential (primary) hypertension; Z68.44 Body mass index [BMI] 60.0-69.9, adult; Z71.3 Dietary counseling and surveillance
CPT/HCPCS: 96365; 93005 ×2; 87040 ×2; 85025 ×3; 81001; 80048 ×3; 36415 ×2; 83735 ×3; 82550; 84100 ×2; 82947 ×7; 80076; 84443; 84484; 83880; 0240U; 71045; 94010 ×2; 94640 ×7; 82805; 94760 ×7; 96375; 99285; 36600; J1815 ×5; Q0169; J7512 ×2; J3475; J3535; J7613 ×10; J7644 ×10; C9113; J1650 ×2; J2930 ×3; J7030; G0378 ×3

== ENCOUNTER 2023-04-21 09:26 | Day surgery (SDC) | payer OTHER ==
[2023-04-21] MEDS: NA CHLORIDE 0.9% 1,000 ML ONE (10:00)
[2023-04-21] MEDS: ALBUTEROL 2.5 MG/3 ML NEB SOL ONE (10:12)
[2023-04-21] MEDS ORDERED: MIDAZOLAM HCL 2 MG/2 ML INJ ONE ×2 (10:21→10:36)
[2023-04-21] MEDS ORDERED: LIDOCAINE 2% MPF 5 ML VIAL ONE ×2 (10:21→10:36)
[2023-04-21] MEDS ORDERED: FENTANYL CITR 100 MCG/2 ML ONE ×2 (10:21→10:36)
[2023-04-21] MEDS ORDERED: propofoL 200 MG/20 ML VIAL IV ONE ×2 (10:21→10:36)
[2023-04-21] MEDS ORDERED: ONDANSETRON 4 MG/2 ML VIAL ONE (10:21)
[2023-04-21] MEDS ORDERED: ROCURONIUM 50 MG/5 ML VIAL IV ONE ×3 (10:21→11:38)
[2023-04-21] MEDS ORDERED: HYDROMORPHONE HCL 1 MG/ML INJ ONE (10:28)
[2023-04-21] MEDS ORDERED: SUGAMMADEX SODIUM 200 MG/2 ML VIAL IV ONE (10:28)
[2023-04-21] MEDS: CEFAZOLIN SODIUM 2 GM/VIAL ONE (10:50)
[2023-04-21] MEDS ORDERED: dexAMETHasone 10 MG/ML VIAL ONE (10:53)
[2023-04-21] MEDS ORDERED: GLYCOPYRROLATE 0.2 MG/ML SYR ONE (11:04)
[2023-04-21] MEDS: BUPIVACAINE 0.25% PF 30 ML VIAL ONE (11:09)
[2023-04-21] MEDS ORDERED: KETOROLAC 30 MG/ML INJ ONE (12:00)
--- NOTE | 2023-04-21 12:08 | P.OP ---
Preoperative diagnosis: Ventral Hernia - Incarcarated Postoperative diagnosis: Ventral Hernia - Incarcarated Primary procedure: Laparoscopic Ventral Incisional Hernia Repair with mesh Anesthesia: GETA + Local Estimated blood loss: <5cc Specimen: None Findings: ~ 15cm Hernia Complications: None Implants: Bard Ventralite ST 15 x 20cm, Sorbafix x 90 Transferred to: Recovery Room Condition: Good
[2023-04-21] MEDS: HYDROMORPHONE HCL 1 MG/ML INJ ONE (12:33)
[2023-04-21] MEDS: FENTANYL CITR 100 MCG/2 ML ONE (12:38)
[2023-04-21] MEDS ORDERED: NA CHLORIDE 0.9% 1,000 ML ONE (12:46)
[2023-04-21] MEDS ORDERED: BUPIVACAINE 0.25% PF 10 ML VIAL ONE (13:47)
[2023-04-21 15:04] VITALS: BP 124/67; TEMP 98.1; O2SAT 97
--- NOTE | 2023-04-21 20:41 | OP ---
Date of Procedure: 04/21/2023 Surgeon: Eduar Manzano MD, Preoperative Diagnosis: Ventral abdominal wall incarcerated hernia. Postoperative Diagnosis: Ventral abdominal wall incarcerated hernia. Procedure Performed: Laparoscopic ventral incisional hernia repair with mesh. Anesthesia: General endotracheal plus local with 0.25% Marcaine. Estimated Blood Loss: 5 cc. Specimen: None. Findings: Approximately 15 cm hernia defect. There were multiple hernias appreciated in the midline from the periumbilical region extending down to the infraumbilical region. Complications: None. Implants: Bard Ventralight ST mesh with Echo Positioning System, approximately 15 cm and 20 cm mesh utilized and SorbaFix absorbable fixation tacks x90. The patient transferred to recovery room in goo d condition. Procedure In Detail: After informed consent was obtained, the patient brought to the operating room, prepped and draped in the usual sterile fashion. After adequate anesthesia was achieved, I anesthet ized an area in the left upper quadrant. A laparoscopic 5 mm 0 degree optical bariatric trocar was p laced in the left upper quadrant down through subcutaneous tissues without incident or complication. Insufflation obtained to 15 mmHg at this time. There was no injury to vital structures upon entry i nto the abdomen. Bariatric trocars were required as the patient had a BMI of approximately 61. Osito tional trocar was placed in the left lower abdomen. This was similarly anesthetized, sharply incised , and 12 mm trocar was placed under direct visualization without incident or complication. This was also a bariatric trocar without incident or complication. The patient was positioned slightly head d own and listed away from the insertion sites. LigaSure device was used to remove incarcerated omenta l attachments through a large approximately 10 cm hernia defect. There was an additional periumbilic al hernia defect which was several cm away, which was quite small. The entire area between the 2 edg es of the hernias was approximately 14.5 cm. At this point, I used the LigaSure to take back the fal ciform ligament slightly back and significant preperitoneal fat which was in the plane between the ab dominal fascia and placement of the mesh. At this point, after sweeping all the tissues out of the h ernia defect and skeletonizing the hernia defect, I closed the hernia defect using 0 V-Loc suture on an Endo stitch. Two sutures were required imbricating the hernia sac to eliminate the space wit deandre andres approximation of the tissues. At this point, I deployed 15 cm x [address] mes h with Echo Positioning System in the central portion of the defect, deployed the balloon deployment system and secured the mesh to the anterior abdominal wall using a single crown of SorbaFix absorbabl e fixation tacks. At this point, the balloon deployment system was removed, found to be intact aroun d the back table. At this point, I deployed a total of 90 screws to the anterior bowel wall, double crown and centralized portion of the abdominal mesh to good to allow for good apposition of the mesh to the abdominal wall. As stated, 90 screws were used in total of the absorbable fixation screws-Sor baFix tacks. At this point, the patient remained listed slightly away and I closed the 12 mm trocar site using Anjum-Poornima suture passer with 0 Vicryl, interrupted fashion, good approximation of ti ssues. The abdomen was inspected at this point, no hemostat was required. At this point the abdomen was desufflated under direct visualization without incident or complication. All remaining trocars removed. All skin edges were then copiously irrigated and closed with 4-0 Monocryl in running fashio n. Dermabond placed over top. The patient tolerated the procedure without incident or complication. Transferred to PACU in good condition. All counts were correct at the end of the case. FRANCINE/JG Voice ID: [id number] Report ID: [id number]
== END 2023-04-21 14:40 | disposition home or self-care (01) ==
LOC: OR 09:26
PROVIDERS: ATTEND Surgery
PROC: 0WUF4JZ Supplement Abdominal Wall with Synthetic Substitute, Percutaneous Endoscopic Approach (ICD-10-PCS; principal; 2023-04-21 11:45)
DX: K43.0 Incisional hernia with obstruction, without gangrene (principal)
CPT/HCPCS: 93005; 80048; 36415; 81025; 82947 ×2; 49596; J2704; J7613; J2001; J2250; J3010 ×2; J1100; J1170 ×2; J2405; J7030 ×2

== ENCOUNTER → 2023-04-27 | Emergency (ER) | payer OTHER ==
--- NOTE | 2023-04-27 17:32 | EDPHYS ---
Physician Documentation [facility] Name: Kina Parham Age: 42 yrs Sex: Female : 1980 Arrival Date: 04/27/2023 Time: 16:42 Bed 11 Private MD: Jericho Coffey ED Physician Alvin Cm HPI: 04/26 17:10 This 42 yrs old Female presents to ER via Wheelchair with complaints of Post cp Surgical Problem. 17:10 Patient presents to ED with c/o abdominal binder being too tight. Patient with HX of cp abdominal hernia repair about [address]zano. 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 - Social history:: Smoking status: unknown. ROS: 17:15 Constitutional: Negative for body aches, chills, fever, poor PO intake, cp 17:15 Cardiovascular: Negative for chest pain, palpitations, cp 17:15 Respiratory: Negative for cough, shortness of breath, wheezing, 17:15 Back: Negative for pain at rest, pain with movement, 17:15 Neuro: Negative for altered mental status, dizziness, headache, weakness, 17:15 All other systems are negative, Exam: 17:20 Constitutional: The patient appears in no acute distress, alert, awake, cp non-diaphoretic, non-toxic, well developed, well nourished, obese, 17:20 Head/Face: Normocephalic, atraumatic. cp 17:20 Chest/axilla: Inspection: normal, 17:20 Cardiovascular: Rate: normal, Rhythm: regular, 17:20 Respiratory: the patient does not display signs of respiratory distress, Respirations: normal, no use of accessory muscles, no retractions, labored breathing, is not present, Breath sounds: are clear throughout, no decreased breath sounds, no stridor, no wheezing, 17:20 Abdomen/GI: Inspection: obese 17:20 Neuro: Orientation: to person, place \T\ time. Mentation: is normal, Vital Signs: 16:52 BP 144 / 88; Pulse 92; Resp 16; Pulse Ox 95% ; iw 17:44 BP 138 / 80; Pulse 88; Resp 15; Temp 97; Pulse Ox 99% ; ko1 MDM: 17:04 Patient medically screened. cp 17:25 Differential diagnosis: pneumonia UTI, gastroenteritis. cp 17:30 Data reviewed: vital signs, nurses notes, and as a result, I will discharge patient. cp 17:30 Management of patient was discussed with the following: Civil Rights Investigator: DR Manzano who cp recommends use of 2 attached abdominal binders. Counseling: I had a detailed discussion with the patient and/or guardian regarding the historical points, exam findings, and any diagnostic results supporting the discharge/admit diagnosis, the need for outpatient follow up, a general surgeon, to return to the emergency department if symptoms worsen or persist or if there are any questions or concerns that arise at home. Response to treatment: the patient's symptoms have markedly improved after treatment, and as a result, I will discharge patient. Administered Medications: No medications were administered Disposition: 04/27 09:01 Co-signature as Attending Physician, Alvin Cm MD I reviewed the patient's care rt provided by the Advanced Practice Provider and agree with the diagnosis and treatment plan. Disposition Summary: 04/27/23 17:31 Discharge Ordered Notes: Location: Home cp Problem: new cp Symptoms: have improved cp Condition: Stable cp Diagnosis - Encounter for change or removal of surgical wound dressing cp Followup: cp - With: Eduar Manzano MD - When: As needed - Reason: Worsening of condition Discharge Instructions: - Discharge Summary Sheet cp - How to Change Your Wound Dressing cp - Wound Care, Adult cp Forms: - Medication Reconciliation Form cp - Thank You Letter cp - Antibiotic Education cp - Prescription Opioid Use cp - Patient Portal Instructions cp - Leadership Thank You Letter cp Signatures: Cora Foster, RN Cirilo Cox PA PA cp Daisha Cornejo RN RN ko1 [place], Ryan, MD MD rt
--- NOTE | 2023-04-27 17:32 | ER ---
Nurse's Notes [facility] Name: Kina Parham Age: 42 yrs Sex: Female : 1980 Arrival Date: 04/27/2023 Time: 16:42 Bed 11 Private MD: Jericho Coffey Diagnosis: Encounter for change or removal of surgical wound dressing Presentation: 04/26 16:52 Chief complaint: Patient's son or daughter states: she had a hernia surgery a week ago, iw the binder they put on her is digging into her skin and she wants a recommendation on something else to use. Coronavirus screen: At this time, the client does not indicate any symptoms associated with coronavirus-19. Ebola Screen: Patient negative for fever greater than or equal to 101.5 degrees Fahrenheit, and additional compatible Ebola Virus Disease symptoms Patient denies exposure to infectious person. Patient denies travel to an Ebola-affected area in the 21 days before illness onset. No symptoms or risks identified at this time. Initial Sepsis Screen: Does the patient meet any 2 criteria? No. Patient's initial sepsis screen is negative. Does the patient have a suspected source of infection? No. Patient's initial sepsis screen is negative. Risk Assessment: Do you want to hurt yourself or someone else? Patient reports no desire to harm self or others. Onset of symptoms was April 27, 2023. 16:52 Method Of Arrival: Wheelchair iw 16:52 Acuity: DOMINIC 4 iw Triage Assessment: 17:46 General: Appears in no apparent distress. Behavior is calm, cooperative, appropriate ko1 for age. 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 - Social history:: Smoking status: unknown. Screenin:43 [facility] ED Fall Risk Assessment (Adult) History of falling in the last 3 months, ko1 including since admission No falls in past 3 months (0 pts) Confusion or Disorientation No (0 pts) Intoxicated or Sedated No (0 pts) Impaired Gait No (0 pts) Mobility Assist Device Used No (0 pt) Altered Elimination No (0 pt) Score/Fall Risk Level 0 - 2 = Low Risk Oriented to surroundings, Maintained a safe environment, Educated pt \T\ family on fall prevention, incl call for assistance when getting out of bed, Assessed \T\ reinforced patient's understanding of fall precautions, Provided non-skid footwear, Hourly rounding (assess needs \T\ fall precautionary measures) done, Used ambulatory aids as needed (educated on \T\ assisted with), Used gait belt as appropriate. Abuse screen: Denies threats or abuse. Denies injuries from another. Nutritional screening: No deficits noted. Tuberculosis screening: No symptoms or risk factors identified. Assessment: 17:26 Reassessment: 2 abdominal binders combined applied to patient. After adjustments, she ll1 feels a lot better. No longer digging into skin. Pain: Complains of pain in abdomen. Neuro: No deficits noted. Cardiovascular: No deficits noted. GI: Abdomen is round distended, obese. Vital Signs: 16:52 BP 144 / 88; Pulse 92; Resp 16; Pulse Ox 95% ; iw 17:44 BP 138 / 80; Pulse 88; Resp 15; Temp 97; Pulse Ox 99% ; ko1 ED Course: 16:45 Patient arrived in ED. rg4 16:46 Jericho Coffey DO is Private Physician. rg4 16:49 Cirilo Quarles PA [facility]. cp 16:49 Alvin Cm MD is Attending Physician. cp 16:53 Triage completed. iw 17:15 Arm band placed on Patient placed in an exam room, on a stretcher. ll1 17:30 Eduar Manzano MD is Referral Physician. cp 17:43 Patient has correct armband on for positive identification. Bed in low position. Call ko1 light in reach. Provided Education on: na. Pulse ox on. NIBP on. Door closed. Noise minimized. 17:43 No provider procedures requiring assistance completed. Patient did not have IV access ko1 during this emergency room visit. Administered Medications: No medications were administered Medication: 17:43 VIS not applicable for this client. ko1 Outcome: 17:31 Discharge ordered by . cp 17:44 Discharged to home via wheelchair, with family, ko1 17:44 Condition: stable 17:44 Discharge instructions given to patient, family, Instructed on discharge instructions, follow up and referral plans. Demonstrated understanding of instructions, follow-up care, 17:47 Patient left the ED. ko1 Signatures: Cora Foster, RN RN Cirilo Núñez PA PA cp Garcia, Rubi rg4 Gelacio Wells RN RN ll1 Daisha Cornejo RN RN ko1
[2023-04-27 19:39] VITALS: BP 138/80; TEMP 97; O2SAT 99
== END ==
LOC: ER 16:42
DX: Z48.01 Encounter for change or removal of surgical wound dressing (principal); Z98.890 Other specified postprocedural states
CPT/HCPCS: 99283

== ENCOUNTER 2023-08-05 21:59 | Emergency (ER) | payer OTHER ==
[2023-08-06] MEDS ORDERED: HYDROMORPHONE HCL 1 MG/ML INJ ONE (00:03)
[2023-08-06] MEDS ORDERED: NA CHLORIDE 0.9% 1,000 ML ONE (00:03)
[2023-08-06] MEDS ORDERED: ONDANSETRON 4 MG/2 ML VIAL ONE (00:03)
[2023-08-06 00:40] LABS: Absolute Eosinophils 0.4 K/uL (0-0.5); Absolute Lymphocytes (CBC) 1.7 K/uL (0.7-4.9); Absolute Monocytes 0.4 K/uL (0.1-1.3); Absolute Neutrophil 6.2 K/uL (1.8-8.0); Basophils % 0.5 % (0-1.3); Eosinophils % 4.4 % (0-4.4); Hematocrit 34.1 % (36.0-45.0); Hemoglobin 11.1 g/dL (12.0-15.0); Lymphocytes % 19.5 % (15.3-44.8); MCH 27.4 pg (27.0-35.0); MCHC 32.6 g/dL (32.0-36.0); MCV 84.1 fL (80-100); MPV 8.6 fL (7.6-11.3); Monocytes % 4.9 % (3.3-12.3); Neutrophils % 70.7 % (41.7-73.7); Platelets 253 thou/uL (152-406); RBC Red Blood Cell Count 4.06 M/uL (3.86-4.86); Red Cell Distribution Width 15.5 % (12.1-15.2)
[2023-08-06 01:05] LABS: ALT/SGPT 22 U/L (13-56); Albumin/Globulin Ratio 0.5 (1.1-1.8); Alkaline Phosphatase 106 U/L (45-117); Anion Gap 7.8 mEq/L (5.0-15.0); BUN Blood Urea Nitrogen 9 mg/dL (7-18); Bicarbonate 30 mEq/L (21-32); Bilirubin Total 0.3 mg/dL (0.2-1.0); Globulin 5.6 g/dL (2.3-3.5); Glomerular Filtration Rate 116 ml/min (=/>90); Glucose Level 136 mg/dL (74-106); Lipase 30 U/L (13-75); NT PRO-BNP 18 pg/mL (<125); Protein, Total 8.6 g/dL (6.4-8.2); Sodium Level 137 mEq/L (136-145); Troponin High Sensitivity 3.4 pg/mL (<58.9)
[2023-08-06 01:08] LABS: AST/SGOT 14 U/L (15-37); Bilirubin Direct < 0.2 mg/dL (0-0.2); Bilirubin Indirect, Calculated 0.1 mg/dL (0.2-0.8); Magnesium 1.6 mg/dL (1.6-2.4); Potassium 3.8 mEq/L (3.5-5.1)
--- NOTE | 2023-08-06 02:43 | EDPHYS ---
Physician Documentation [facility] Name: Kina Parham Age: 43 yrs Sex: Female : 1980 Arrival Date: 08/05/2023 Time: 21:59 Bed 19 Private MD: ED Physician HPI: 08/04 23:15 This 43 yrs old Female presents to ER via Wheelchair with complaints of Chest cp Pain, Abdominal Pain, Breathing Difficulty. 23:15 The patient presents with abdominal pain in the epigastric area. 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 - Infectious Disease History:: Denies. - Social history:: Smoking status: Patient denies any tobacco usage or history of. ROS: 23:20 Constitutional: Negative for body aches, chills, fever, poor PO intake, cp 23:20 Eyes: Negative for injury, pain, redness, and discharge, cp 23:20 ENT: Negative for drainage from ear(s), ear pain, sore throat, difficulty swallowing, difficulty handling secretions, 23:20 Cardiovascular: Positive for chest pain, 23:20 Respiratory: Positive for shortness of breath, 23:20 Abdomen/GI: Positive for abdominal pain, of the epigastric area, Negative for vomiting, diarrhea, constipation, 23:20 Back: Positive for radiated pain, 23:20 : Negative for urinary symptoms, 23:20 Neuro: Negative for altered mental status, dizziness, headache, numbness, syncope, weakness, 23:20 All other systems are negative, Exam: 23:25 Constitutional: The patient appears in no acute distress, alert, awake, cp non-diaphoretic, non-toxic, well developed, well nourished, obese, 23:25 Head/Face: Normocephalic, atraumatic. cp 23:25 Eyes: Periorbital structures: appear normal, Conjunctiva: normal, no exudate, no injection, Sclera: no appreciated abnormality, Lids and lashes: appear normal, bilaterally, 23:25 ENT: External ear(s): are unremarkable, Nose: is normal, Mouth: Lips: moist, Oral mucosa: moist, Posterior pharynx: Airway: no evidence of obstruction, patent, 23:25 Chest/axilla: Inspection: normal, 23:25 Cardiovascular: Rate: normal, Rhythm: regular, Edema: is not appreciated, JVD: is not appreciated, 23:25 Respiratory: the patient does not display signs of respiratory distress, Respirations: labored breathing, is not present, shallow respirations, that is mild, 23:25 Abdomen/GI: Inspection: obese Bowel sounds: active, all quadrants, Palpation: soft, in all quadrants, moderate abdominal tenderness, in the epigastric area and left lower quadrant, rebound tenderness, is not appreciated, 23:25 Neuro: Orientation: to person, place \T\ time. Mentation: is normal, Motor: moves all fours, strength is normal, 23:55 ECG was reviewed by the Attending Physician. Vital Signs: 22:07 BP 195 / 94; Pulse 96; Resp 18; Temp 98.5; Pulse Ox 95% ; Weight 131.54 kg; Height 4 vc1 ft. 11 in. ; Pain 10/10; 08/05 00:00 BP 166 / 87; Pulse 79; Resp 24 S; Pulse Ox 97% on R/A; jw7 01:30 BP 162 / 96; Pulse 83; Resp 24 S; Pulse Ox 98% on R/A; jw7 02:30 BP 151 / 84; Pulse 85; Resp 21 S; Pulse Ox 95% on R/A; jw7 03:30 BP 150 / 86; Pulse 82; Resp 19 S; Pulse Ox 97% on R/A; jw7 08/04 22:07 Body Mass Index 58.57 (131.54 kg, 149.86 cm) vc1 08/04 22:07 Pain Scale: Adult vc1 MDM: 08/04 22:17 Patient medically screened. cp 08/05 02:27 Data reviewed: vital signs. ED course: Patient signed out to me with pending lab work ec2 and CT imaging and ultrasound. Arrives today for chest pain and abdominal pain.. 02:32 ED course: CT abdomen pelvis shows no acute intra-abdominal process, does show ascites ec2 filled hernia. Ultrasound shows gallbladder sludge without evidence of infection. . 02:33 ED course: Metabolic profile with a proper electrolytes, CBC with slight anemia, no ec2 leukocytosis, LFTs are nonactionable. Magnesium is within normal ranges, BNP and troponin are within appropriate ranges. . 02:41 ED course: I instructed patient to follow-up with Dr. Manzano. Return precautions ec2 given.. 08/04 23:14 Order name: Basic Metabolic Panel; Complete Time: 01:36 cp 08/05 01:36 Interpretation: Normal except: GLUC 136; CRE 0.53. cp 08/04 23:14 Order name: CBC with Diff; Complete Time: 01:06 cp 08/05 01:06 Interpretation: Normal except: HGB 11.1; HCT 34.1; RDW 15.5. cp 08/04 23:14 Order name: LFT's; Complete Time: 01:36 cp 08/05 01:37 Interpretation: Normal except: AST 14; IBILI, CALC 0.1; TP 8.6; ALB 3.0; GLOB 5.6; A/G cp 0.5. 08/04 23:14 Order name: Magnesium; Complete Time: 01:36 cp 08/04 23:14 Order name: NT PRO-BNP; Complete Time: 01:36 cp 08/04 23:14 Order name: Troponin HS; Complete Time: 01:36 cp 08/04 23:15 Order name: Lipase; Complete Time: 01:36 cp 08/04 23:14 Order name: XRAY Chest (1 view) cp 08/05 00:00 Order name: US Abdomen Limited: RUQ cp 08/05 01:08 Order name: CT Abd/Pelvis - IV Contrast Only cp 08/04 23:14 Order name: EKG; Complete Time: 23:15 cp 08/04 23:14 Order name: Cardiac monitoring; Complete Time: 23:56 cp 08/04 23:14 Order name: EKG - Nurse/Tech; Complete Time: 23:56 cp 08/04 23:14 Order name: IV Saline Lock; Complete Time: 23:56 cp 08/04 23:14 Order name: Labs collected and sent; Complete Time: 23:56 cp 08/04 23:14 Order name: O2 Per Protocol; Complete Time: 23:56 cp 08/04 23:14 Order name: O2 Sat Monitoring; Complete Time: 23:56 cp 08/05 00:00 Order name: NPO; Complete Time: 00:00 cp EC/22 23:55 Rate is 89 beats/min. Rhythm is regular. NM interval is normal. QRS interval is normal. cp QT interval is normal. T waves are Inverted in lead aVR. Interpreted by me. Reviewed by me. Administered Medications: 08/05 00:12 Drug: HYDROmorphone IVP 1 mg IVP once Route: IVP; Site: left antecubital; jw7 02:52 Follow up: Response: No adverse reaction; Marked relief of symptoms jw7 00:12 Drug: Ondansetron IVP 4 mg IVP once; over 2 minutes Route: IVP; Site: left antecubital; jw7 02:52 Follow up: Response: No adverse reaction; Marked relief of symptoms jw7 00:12 Drug: NS 0.9% IV 1000 ml IV at 1 bolus Per protocol; 1000 mL bolus Route: IV; Rate: 1 jw7 bolus; Site: left antecubital; 02:52 Follow up: Response: No adverse reaction; IV Status: Completed infusion; IV Intake: jw7 1000ml 03:43 Not Given (Patient Refused): morphineor iv 2 mg IVP once over 4 mins jw7 Disposition: 02:41 I agree with the assessment and plan of care. ec2 Disposition Summary: 08/06/23 02:42 Discharge Ordered Notes: Location: Home ec2 Condition: Stable ec2 Diagnosis - Abdominal pain, Generalized ec2 - Hernia Complication ec2 Followup: ec2 - With: Private Physician - When: - Reason: Re-evaluation by your physician Followup: ec2 - With: Eduar Manzano MD - When: - Reason: Recheck today's complaints Discharge Instructions: - Discharge Summary Sheet ec2 - Abdominal Pain, Adult ec2 Forms: - Medication Reconciliation Form ec2 - Antibiotic Education ec2 - Prescription Opioid Use ec2 - Patient Portal Instructions ec2 - Leadership Thank You Letter ec2 Prescriptions: - acetaminophen-codeine 300-15 mg Oral tablet - take 1 tablet ORAL route every 8 hours; 15 tablet; Refills: 0, Product ec2 Selection Permitted Signatures: Dispatcher [employer] EDMS Cirilo Quarles PA PA cp Corrina Roland RN RN vc1 Eliane Mayes RN RN jw7 Pelon Purdy MD MD ec2 Corrections: (The following items were deleted from the chart) 08/04 23:15 23:15 LIPASE+C.LAB.BRZ ordered. EDMS EDMS 08/05 01:50 08/03 23:15 This 43 yrs old Female presents to ER via Wheelchair with cp complaints of Chest Pain, Abdominal Pain, Breathing Difficulty. cp
--- NOTE | 2023-08-06 02:43 | ER ---
Nurse's Notes [facility] Name: Kina Parham Age: 43 yrs Sex: Female : 1980 Arrival Date: 08/05/2023 Time: 21:59 Bed 19 Private MD: Diagnosis: Abdominal pain, Generalized;Hernia Complication Presentation: 08/04 22:04 Chief complaint: Patient states: Feels like something is sitting on chest and stomach vc1 is distending. Coronavirus screen: Client denies travel out of the [place] in the last 14 days. At this time, the client does not indicate any symptoms associated with coronavirus-19. Ebola Screen: Patient negative for fever greater than or equal to 101.5 degrees Fahrenheit, and additional compatible Ebola Virus Disease symptoms Patient denies exposure to infectious person. Patient denies travel to an Ebola-affected area in the 21 days before illness onset. No symptoms or risks identified at this time. Initial Sepsis Screen: Does the patient meet any 2 criteria? No. Patient's initial sepsis screen is negative. Does the patient have a suspected source of infection? No. Patient's initial sepsis screen is negative. Risk Assessment: Do you want to hurt yourself or someone else? Patient reports no desire to harm self or others. Note Times one week. Onset of symptoms is unknown. 22:04 Method Of Arrival: Wheelchair vc1 22:04 Acuity: DOMINIC 3 vc1 Triage Assessment: 22:05 General: Appears in no apparent distress. uncomfortable, obese, Behavior is vc1 cooperative, anxious, Reports feeling ill for fatigue for. Pain: Complains of pain in chest epigastric, headache. Cardiovascular: Capillary refill < 3 seconds Patient's skin is warm and dry. Respiratory: Reports shortness of breath Airway is patent Respiratory effort is even, unlabored, Respiratory pattern is regular, symmetrical, the patient has mild shortness of breath. GI: Abdomen is round obese, Last BM was August 05, 2023. Reports upper abdominal pain, bloating, normal bowel habits. 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 - Infectious Disease History:: Denies. - Social history:: Smoking status: Patient denies any tobacco usage or history of. Screenin:25 [facility] ED Fall Risk Assessment (Adult) History of falling in the last 3 months, jw7 including since admission No falls in past 3 months (0 pts) Confusion or Disorientation No (0 pts) Intoxicated or Sedated No (0 pts) Impaired Gait Yes (1 pt) Mobility Assist Device Used No (0 pt) Altered Elimination No (0 pt) Score/Fall Risk Level 0 - 2 = Low Risk Oriented to surroundings, Maintained a safe environment, Educated pt \T\ family on fall prevention, incl call for assistance when getting out of bed. Abuse screen: Denies threats or abuse. Denies injuries from another. Nutritional screening: No deficits noted. Tuberculosis screening: No symptoms or risk factors identified. Assessment: 22:25 General: Appears in no apparent distress. uncomfortable, Behavior is calm, cooperative, jw7 appropriate for age. 22:25 Pain: Complains of pain in epigastric area Pain does not radiate. Pain currently is 8 jw7 out of 10 on a pain scale. Quality of pain is described as burning, Pain began suddenly, Is continuous. Neuro: Level of Consciousness is awake, alert, obeys commands, Oriented to person, place, time, situation, Appropriate for age. Cardiovascular: Heart tones S1 S2 present Capillary refill < 3 seconds Clubbing of nail beds is absent JVD is absent Patient's skin is warm and dry. Rhythm is regular. Respiratory: Airway is patent Trachea midline Respiratory effort is even, unlabored, Respiratory pattern is regular, symmetrical, Breath sounds are clear bilaterally. GI: Abdomen is round non-distended, obese, Bowel sounds present X 4 quads. Abd is soft and non tender X 4 quads. : No deficits noted. No signs and/or symptoms were reported regarding the genitourinary system. EENT: No deficits noted. No signs and/or symptoms were reported regarding the EENT system. Derm: Skin is intact, is healthy with good turgor, Skin is dry, Skin is normal, Skin temperature is warm. Musculoskeletal: Circulation, motion, and sensation intact. Range of motion: intact in all extremities. 23:30 Reassessment: Patient appears in no apparent distress at this time. No changes from [facility] previously documented assessment. Patient and/or family updated on plan of care and expected duration. Pain level reassessed. Patient is alert, oriented x 3, equal unlabored respirations, skin warm/dry/pink. 08/05 00:30 Reassessment: Patient appears in no apparent distress at this time. Patient and/or jw7 family updated on plan of care and expected duration. Pain level reassessed. Patient is alert, oriented x 3, equal unlabored respirations, skin warm/dry/pink. Patient states feeling better. Patient states symptoms have improved. 01:30 Reassessment: Patient appears in no apparent distress at this time. No changes from 7 previously documented assessment. Patient and/or family updated on plan of care and expected duration. Pain level reassessed. Patient is alert, oriented x 3, equal unlabored respirations, skin warm/dry/pink. 02:30 Reassessment: Patient appears in no apparent distress at this time. No changes from jw7 previously documented assessment. Patient and/or family updated on plan of care and expected duration. Pain level reassessed. Patient is alert, oriented x 3, equal unlabored respirations, skin warm/dry/pink. 03:30 Reassessment: Patient appears in no apparent distress at this time. No changes from [facility] previously documented assessment. Patient and/or family updated on plan of care and expected duration. Pain level reassessed. Patient is alert, oriented x 3, equal unlabored respirations, skin warm/dry/pink. Vital Signs: 08/04 22:07 BP 195 / 94; Pulse 96; Resp 18; Temp 98.5; Pulse Ox 95% ; Weight 131.54 kg; Height 4 vc1 ft. 11 in. ; Pain 10/10; 08/05 00:00 BP 166 / 87; Pulse 79; Resp 24 S; Pulse Ox 97% on R/A; jw7 01:30 BP 162 / 96; Pulse 83; Resp 24 S; Pulse Ox 98% on R/A; jw7 02:30 BP 151 / 84; Pulse 85; Resp 21 S; Pulse Ox 95% on R/A; jw7 03:30 BP 150 / 86; Pulse 82; Resp 19 S; Pulse Ox 97% on R/A; jw7 08/04 22:07 Body Mass Index 58.57 (131.54 kg, 149.86 cm) vc1 08/04 22:07 Pain Scale: Adult vc1 ED Course: 08/04 22:01 Patient arrived in ED. mr 22:05 Triage completed. vc1 22:05 Arm band placed on right wrist. vc1 22:17 Cirilo Quarles PA is PHCP. cp 22:17 ePlon Purdy MD is Attending Physician. cp 22:25 Patient has correct armband on for positive identification. Bed in low position. Call jw7 light in reach. Side rails up X2. Provided Education on: Use of call light. Client placed on continuous cardiac and pulse oximetry monitoring. NIBP monitoring applied. monitoring specialist on. Pulse ox on. 22:25 O2 via RA. jw7 22:39 Eliane Mayes RN is Primary Nurse. jw7 23:35 XRAY Chest (1 view) In Process Unspecified. EDMS 23:56 Initial lab(s) drawn, by co, sent to lab. Inserted saline lock: 20 gauge in left [facility] antecubital area, using aseptic technique. Blood collected. 23:56 EKG done, by ED staff, reviewed by Cirilo RENEE. jw7 08/05 00:45 US Abdomen Limited: RUQ In Process Unspecified. EDMS 01:48 CT Abd/Pelvis - IV Contrast Only In Process Unspecified. EDMS 02:44 Eduar Manzano MD is Referral Physician. ec2 02:50 No provider procedures requiring assistance completed. jw7 03:45 IV discontinued, intact, bleeding controlled, No redness/swelling at site. Pressure jw7 dressing applied. Administered Medications: 00:12 Drug: HYDROmorphone IVP 1 mg IVP once Route: IVP; Site: left antecubital; jw7 02:52 Follow up: Response: No adverse reaction; Marked relief of symptoms jw7 00:12 Drug: Ondansetron IVP 4 mg IVP once; over 2 minutes Route: IVP; Site: left antecubital; jw7 02:52 Follow up: Response: No adverse reaction; Marked relief of symptoms jw7 00:12 Drug: NS 0.9% IV 1000 ml IV at 1 bolus Per protocol; 1000 mL bolus Route: IV; Rate: 1 jw7 bolus; Site: left antecubital; 02:52 Follow up: Response: No adverse reaction; IV Status: Completed infusion; IV Intake: jw7 1000ml 03:43 Not Given (Patient Refused): morphineor iv 2 mg IVP once over 4 mins jw7 Medication: 02:50 VIS not applicable for this client. jw7 Intake: 02:52 IV: 1000ml; Total: 1000ml. jw7 Outcome: 02:42 Discharge ordered by ec2 03:45 Discharged to home ambulatory, jw7 03:45 Condition: stable 03:45 Discharge instructions given to patient, Instructed on discharge instructions, follow up and referral plans. medication usage, Demonstrated understanding of instructions, follow-up care, medications, Prescriptions given X 1, 03:45 Patient left the ED. jw7 Signatures: Dispatcher [employer] EDKS Nilda Wang, Reg Reg mr Cirilo Quarles, Corrina Martini cp, RN RN vc1 Eliane Mayes RN RN jw7 Pelon Purdy MD MD ec2
[2023-08-06] MEDS ORDERED: MORPHINE 4 MG/ML SYR ONE (03:25)
[2023-08-06 04:40] VITALS: BP 150/86; TEMP 98.5; O2SAT 97
--- NOTE | 2023-08-07 13:07 | EKG ---
Test Date: 2023-08-05 Test Time: 23:49:00 Dairy Equipment Specialist: MARIO MEASUREMENT RESULTS: Intervals: Rate: 89 LA: 184 QRSD: 88 QT: 362 QTc: 440 [place]: P: 47 LA: 184 QRS: 61 T: 57 INTERPRETIVE STATEMENTS: Normal sinus rhythm Normal ECG Compared to ECG 01/08/2023 20:26:07 No significant changes Electronically Signed On 08-07-23 13:03:36 CDT by Rafael Vega
--- NOTE | 2023-08-07 21:54 | RAD REPORT ---
EXAM DESCRIPTION: RAD - Chest Single View - 08/05/2023 11:33 pm CLINICAL HISTORY: Female, 43 years old, abdominal pain;Chest pain;Abdominal distention TECHNIQUE: 1 view COMPARISON: 01/08/2023 FINDINGS: SUPPORT DEVICES: Unchanged partially imaged tubing coursing along the right chest, likely related to a ventricular shunt. LUNGS/PLEURA: Perihilar interstitial prominence. No consolidation, pleural effusion or pneumothorax. HEART/MEDIASTINUM: Normal size and configuration. OTHER: No acute osseous findings. IMPRESSION: Interstitial markings suggestive of edema or pneumonitis/bronchitis. Mild improvement fr om comparison exam. No consolidation. Electronically signed by: Buddy Hollis MD 08/06/2023 12:17 AM CDT RP Due to temporary technical issues with the PACS/Fluency reporting system, reports are being signed by the in house radiologists without review as a courtesy to insure prompt reporting. The interpreting radiologist is fully responsible for the content of the report.
--- NOTE | 2023-08-07 21:56 | RAD REPORT ---
EXAM DESCRIPTION: CT - Abdomen Pelvis W Contrast - 08/06/2023 7:17 am CLINICAL HISTORY: Female, 43 years old, ABD PAIN COMPARISON: Same day right upper quadrant ultrasound, 11/08/2022 TECHNIQUE: CT acquisition of the abdomen and pelvis following the administration of IV contrast. Cor onal and sagittal reformatted images provided. This exam was performed according to departmental dose -optimization program which includes automated exposure control, adjustment of the mA and/or kV accor ding to patient size, and/or use of iterative reconstruction technique. FINDINGS: SUPPORTIVE DEVICES: Internal catheter courses within the subcutaneous tissues of the lower chest and right upper quadrant, terminating within the pelvic peritoneal space. LOWER CHEST: Unremarkable. ABDOMEN AND PELVIS: Photon starvation results in low eypfid-nd-wfpdr and limits assessment. Liver: Diffuse hypoenhancement relative to the spleen. Gallbladder and bile ducts: Normal. Pancreas: Normal. Spleen: Normal. Adrenal glands: Normal. Kidneys and ureters: Normal. Bladder: Normal. Reproductive organs: Unremarkable. GI tract: Normal caliber without wall thickening. No evidence of appendicitis. Lymph nodes: No evident adenopathy. Peritoneum/abdominal wall: Redemonstration of a large infraumbilical hernia now diffusely filled with ascites, previously filled with small bowel loops. Vessels: Unremarkable. MUSCULOSKELETAL: No acute osseous abnormality. Degenerative change of the spine. IMPRESSION: 1. No acute abdominopelvic finding. 2. The previous large, small bowel containing infraumbilical hernia is now filled with ascites. Electronically signed by: Buddy Hollis MD 08/06/2023 02:21 AM CDT RP Due to temporary technical issues with the PACS/Fluency reporting system, reports are being signed by the in house radiologists without review as a courtesy to insure prompt reporting. The interpreting radiologist is fully responsible for the content of the report.
--- NOTE | 2023-08-07 21:58 | RAD REPORT ---
EXAM DESCRIPTION: US - Abdomen Exam Limited - 08/06/2023 2:51 am CLINICAL HISTORY: Female, 43 years old, ABD PAIN COMPARISON: Same day CT abdomen/pelvis, 11/08/2022 TECHNIQUE: Multiple sonographic images of the right upper quadrant. FINDINGS: Liver: Diffusely increased echogenicity. Hepatopetal portal venous flow. Biliary system: Suspected sludge in the gallbladder without visualized stone. Gallbladder wall thickn ess measures 2 mm. Common bile duct is not visualized due to body habitus and/or overlying bowel gas. Sonographic Vera's sign was not indicated positive or negative. Other: No visualized ascites. IMPRESSION: Probable gallbladder sludge without evidence of stones or acute cholecystitis. Electronically signed by: Buddy Hollis MD 08/06/2023 02:18 AM CDT Due to temporary technical issues with the PACS/Fluency reporting system, reports are being signed by the in house radiologists without review as a courtesy to insure prompt reporting. The interpreting radiologist is fully responsible for the content of the report.
== END 2023-08-06 03:45 | disposition home or self-care (01) ==
LOC: ER 21:59
DX: R10.84 Generalized abdominal pain (principal); K42.9 Umbilical hernia without obstruction or gangrene; Z98.2 Presence of cerebrospinal fluid drainage device
CPT/HCPCS: 85025; 80048; 36415; 83735; 80076; 84484; 83690; 83880; 74177; 71045; 76705; Q9967; J1170; J2405; J7030; 93005; 96361; 96374; 96375; 99285

== ENCOUNTER 2023-10-17 14:17 | Emergency (ER) | payer OTHER, SELFPAY ==
[2023-10-17 16:17] LABS: Absolute Basophils 0.1 K/uL (0-0.5); Absolute Eosinophils 0.4 K/uL (0-0.5); Absolute Lymphocytes (CBC) 1.6 K/uL (0.7-4.9); Absolute Monocytes 0.4 K/uL (0.1-1.3); Absolute Neutrophil 4.2 K/uL (1.8-8.0); Basophils % 0.8 % (0-1.3); Eosinophils % 6.5 % (0-4.4); Hematocrit 38.3 % (36.0-45.0); Hemoglobin 11.9 g/dL (12.0-15.0); MCH 25.2 pg (27.0-35.0); MCV 81.5 fL (80-100); MPV 8.3 fL (7.6-11.3); Monocytes % 6.2 % (3.3-12.3); Neutrophils % 62.5 % (41.7-73.7); Platelets 268 thou/uL (152-406); Red Cell Distribution Width 17.1 % (12.1-15.2)
[2023-10-17 17:09] LABS: Albumin/Globulin Ratio 0.6 (1.1-1.8); Anion Gap 5.9 mEq/L (5.0-15.0); Bilirubin Total 0.2 mg/dL (0.2-1.0); Globulin 5.2 g/dL (2.3-3.5); Potassium 3.9 mEq/L (3.5-5.1); Protein, Total 8.2 g/dL (6.4-8.2)
--- NOTE | 2023-10-17 17:37 | RAD REPORT ---
EXAM DESCRIPTION: CTAbdomen Pelvis W Contrast - 10/17/2023 5:28 pm CLINICAL HISTORY: Abdominal pain. abd distension, ascites COMPARISON: <Comparisons> TECHNIQUE: Biphasic CT imaging of the abdomen and pelvis was performed with 100 ml non-ionic IV cont rast. All CT scans are performed using dose optimization technique as appropriate and may include automated exposure control or mA/KV adjustment according to patient size. FINDINGS: The lung bases are clear. The liver, spleen, pancreas, adrenal glands and kidneys are within normal limits. No bowel obstruction, free air, free fluid or abscess. No ascites is present. There is a 17 x 11 cm c ystic appearing lesion in the abdominal subcutaneous fat. This is unchanged since 08/06/23. The appen deysi is normal. No evidence of significant lymphadenopathy. No suspicious bony findings. IMPRESSION: No acute intra-abdominal or pelvic finding. No significant ascites. 17 x 11 mm cystic lesion in the subcutaneous fat of the lower left abdomen. This is indeterminate.
[2023-10-17] MEDS ORDERED: ONDANSETRON 4 MG/2 ML VIAL ONE (17:41)
[2023-10-17] MEDS ORDERED: MORPHINE 4 MG/ML SYR ONE (17:41)
--- NOTE | 2023-10-17 17:53 | EDPHYS ---
Physician Documentation [facility] Name: Kina Parham Age: 43 yrs Sex: Female : 1980 Arrival Date: 10/17/2023 Time: 14:17 Bed 3 Private MD: ED Physician John Cha HPI: 10/16 15:10 This 43 yrs old Female presents to ER via Wheelchair with complaints of rn Abdominal Pain. 15:10 The patient presents with abdominal pain. rn 15:50 Onset: The symptoms/episode began/occurred 1 month(s) ago. The symptoms do not radiate. rn Associated signs and symptoms: Pertinent negatives: blood in stools, chest pain, fever, hematuria. The symptoms are described as achy. Modifying factors: The symptoms are alleviated by nothing, the symptoms are aggravated by nothing. Severity of pain: At its worst the pain was moderate in the emergency department the pain is unchanged. The patient has experienced similar episodes in the past. Patient and family report fluid in abdomen for at least a month, has seen PCP and told needs fluid drained, has had outpatient orders but has had difficulty completing the procedure. Patient reports abdominal distention, shortness of breath. No known liver problems or kidney problems. Has never had paracentesis before. Had hernia surgery this year without complication. No lower extremity swelling. No medication changes. Came in today because they are tired of bouncing around and still swelling is worsening.. 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 - Infectious Disease History:: Denies. - Social history:: Smoking status: Patient denies any tobacco usage or history of. - Family history:: not pertinent. - Hospitalizations: : No recent hospitalization is reported. ROS: 15:50 Constitutional: Negative for fever, chills, and weight loss, Cardiovascular: Negative rn for chest pain, palpitations, and edema, Respiratory: Positive for mild shortness of breath due to abdominal distention, negative for cough or hemoptysis Abdomen/GI: Positive for abdominal distention and pain MS/Extremity: Negative for injury and deformity, Skin: Negative for injury, rash, and discoloration, Neuro: Negative for headache, weakness, numbness, tingling, and seizure, Exam: 15:50 Constitutional: This is a well developed, well nourished patient who is awake, alert, rn mild distress, seems tachypneic and shallow breathing Cardiovascular: Regular rate and rhythm. No pulse deficits. Respiratory: Mild tachypnea with shallow breaths Abdomen/GI: Soft upper abdomen, positive fluid wave, firm left lower quadrant without skin changes MS/ Extremity: Pulses equal, no cyanosis. No lower extremity edema Neuro: Awake and alert, GCS 15 Vital Signs: 14:49 BP 158 / 81; Pulse 78; Resp 18; Temp 98.3; Pulse Ox 94% on R/A; Weight 127.01 kg; Pain db 10/10; 18:15 BP 147 / 84; Pulse 74; Resp 18; Pulse Ox 100% on R/A; mb9 14:49 Pain Scale: Adult db MDM: 14:26 Patient medically screened. rn 17:48 Differential diagnosis: non-specific abd pain. rn 17:49 Data reviewed: vital signs, nurses notes, lab test result(s), radiologic studies, CT rn scan, and as a result, I will discharge patient. Consideration of Admission/Observation Escalation of care including admission/observation considered. Admission considered but after consultation with Dr. Manzano, he states that she has a known large seroma and insurance problems have kept her from getting it drained. He believes she just needs a percutaneous drain and is okay with patient being discharged, will work with her tomorrow in office with the welding production supervisor to try to get the correct order and find her the correct location for drainage.. Counseling: I had a detailed discussion with the patient and/or guardian regarding the historical points, exam findings, and any diagnostic results supporting the discharge/admit diagnosis, lab results, radiology results, the need for outpatient follow up, to return to the emergency department if symptoms worsen or persist or if there are any questions or concerns that arise at home. Special discussion: I discussed with the patient/guardian in detail that at this point there is no indication for admission to the hospital. It is understood, however, that if the symptoms persist or worsen the patient needs to return immediately for re-evaluation. 10/16 14:57 Order name: CBC with Diff; Complete Time: 16:30 rn 09/03 14:57 Order name: CMP; Complete Time: 17:10 rn 10/16 14:57 Order name: Lipase; Complete Time: 17:10 rn 10/16 14:57 Order name: CT Abd/Pelvis - IV Contrast Only; Complete Time: 17:39 rn 10/16 14:57 Order name: IV Saline Lock; Complete Time: 15:57 rn 10/16 14:57 Order name: Labs collected and sent; Complete Time: 15:57 rn 10/16 16:29 Order name: Labs - recollect needed: Lt green; Complete Time: 16:31 [email or web address] Administered Medications: 17:35 Drug: morphine IVP or IV 4 mg IVP once over 4 mins Route: IVP; Infused Over: 4 mins; bp Site: left antecubital; Disposition Summary: 10/17/23 17:53 Discharge Ordered Notes: Location: Home rn Problem: an ongoing problem rn Symptoms: are unchanged rn Condition: Stable rn Diagnosis - Abdominal pain, unspecified rn - Seroma rn Followup: rn - With: Eduar Manzano MD - When: Tomorrow - Reason: Recheck today's complaints, Re-evaluation by your physician Discharge Instructions: - Discharge Summary Sheet rn - Abdominal Pain, Adult rn - Seroma rn Forms: - Medication Reconciliation Form rn - Antibiotic international trade analyst - Prescription Opioid Use rn - Patient Portal Instructions rn - Leadership Thank You Letter rn Prescriptions: - Tramadol 50 mg Oral Tablet - take 1 tablet ORAL route every 8 hours as needed; 12 tablet; Refills: 0, rn Product Selection Permitted Signatures: Dispatcher [employer] EDMS John Cha MD MD rn Peltier, Brian RN Anna Colunga RN RN Scarlet Gudino [email or web address] Corrections: (The following items were deleted from the chart) 14:57 14:57 CBC+H.LAB.BRZ ordered. EDMS EDMS 14:57 14:57 COMPREHENSIVE METABOLIC PANEL+C.LAB.BRZ ordered. EDMS EDMS 14:57 14:57 LIPASE+C.LAB.BRZ ordered. EDMS EDMS 14:57 14:57 Abdomen Pelvis W Con+CT.RAD.BRZ ordered. EDMS EDMS 17:40 17:40 Shuntogram+RAD.RAD.BRZ ordered. EDMS EDMS 17:59 17:39 Head Brain Wo Cont+CT.RAD.BRZ ordered. EDMS EDMS
--- NOTE | 2023-10-17 17:53 | ER ---
Nurse's Notes [facility] Name: Kina Parham Age: 43 yrs Sex: Female : 1980 Arrival Date: 10/17/2023 Time: 14:17 Bed 3 Private MD: Diagnosis: Abdominal pain, unspecified;Seroma Presentation: 10/16 14:49 Chief complaint: Patient states: ABD PAIN STATES NEEDS TO HAVE FLUID DRAINED FROM HER db ABDOMEN BUT HAS NOT BEEN ABLE TO GET AN APPOINTMENT. STATES LAST NIGHT PAIN STARTED TO INCREASE AND TODAY PAIN IS WORSE AND IS UNABLE TO MOVE. PT REPORTS ABD SWELLING X 1 MONTH. REPORTS HX OF ABDOMINAL HERNIA REMOVAL. Coronavirus screen: Client denies travel out of the [place] in the last 14 days. At this time, the client does not indicate any symptoms associated with coronavirus-19. Ebola Screen: Patient negative for fever greater than or equal to 101.5 degrees Fahrenheit, and additional compatible Ebola Virus Disease symptoms Patient denies exposure to infectious person. Patient denies travel to an Ebola-affected area in the 21 days before illness onset. No symptoms or risks identified at this time. Initial Sepsis Screen: Does the patient meet any 2 criteria? No. Patient's initial sepsis screen is negative. Does the patient have a suspected source of infection? No. Patient's initial sepsis screen is negative. Risk Assessment: Do you want to hurt yourself or someone else? Patient reports no desire to harm self or others. Onset of symptoms was October 16, 2023. 14:49 Method Of Arrival: Wheelchair db 14:49 Acuity: DOMINIC 3 db Triage Assessment: 14:51 General: Appears in no apparent distress. uncomfortable, Behavior is calm, cooperative. db Pain: Complains of pain in abdomen. Neuro: Level of Consciousness is awake, alert, obeys commands, Oriented to person, place, time, situation. Cardiovascular: No deficits noted. Respiratory: Airway is patent Respiratory effort is even, unlabored, Respiratory pattern is regular, symmetrical. GI: Abdomen is distended, obese, Reports lower abdominal pain, upper abdominal pain. 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 - Infectious Disease History:: Denies. - Social history:: Smoking status: Patient denies any tobacco usage or history of. - Family history:: not pertinent. - Hospitalizations: : No recent hospitalization is reported. Screenin:00 [facility] ED Fall Risk Assessment (Adult) History of falling in the last 3 months, bp including since admission No falls in past 3 months (0 pts) Confusion or Disorientation No (0 pts) Intoxicated or Sedated No (0 pts) Impaired Gait No (0 pts) Mobility Assist Device Used No (0 pt) Altered Elimination No (0 pt) Score/Fall Risk Level 0 - 2 = Low Risk. Abuse screen: Denies threats or abuse. Denies injuries from another. Nutritional screening: No deficits noted. Tuberculosis screening: No symptoms or risk factors identified. Assessment: 15:00 General: Appears uncomfortable, obese, Behavior is calm, cooperative, appropriate for bp age. Pain: Complains of pain in abdomen. Neuro: No deficits noted. Cardiovascular: No deficits noted. Respiratory: No deficits noted. GI: Bowel sounds present X 4 quads. Abd is soft X 4 quads. : No signs and/or symptoms were reported regarding the genitourinary system. EENT: No deficits noted. Derm: No deficits noted. Musculoskeletal: No deficits noted. Vital Signs: 14:49 BP 158 / 81; Pulse 78; Resp 18; Temp 98.3; Pulse Ox 94% on R/A; Weight 127.01 kg; Pain db 10/10; 18:15 BP 147 / 84; Pulse 74; Resp 18; Pulse Ox 100% on R/A; mb9 14:49 Pain Scale: Adult db ED Course: 14:22 Patient arrived in ED. im 14:26 John Cha MD is Attending Physician. rn 14:50 Arm band placed on left wrist. Patient placed in waiting room. db 14:51 Triage completed. db 15:00 Patient has correct armband on for positive identification. bp 15:50 Anival May, RN is Primary Nurse. bp 15:57 Initial lab(s) drawn, by me, sent to lab. Inserted saline lock: 20 gauge in left bp antecubital area, using aseptic technique. Blood collected. 17:29 CT Abd/Pelvis - IV Contrast Only In Process Unspecified. EDMS 17:52 Eduar Manzano MD is Referral Physician. rn 18:11 No provider procedures requiring assistance completed. IV discontinued, intact, mb9 bleeding controlled, No redness/swelling at site. Pressure dressing applied. Administered Medications: 17:35 Drug: morphine IVP or IV 4 mg IVP once over 4 mins Route: IVP; Infused Over: 4 mins; bp Site: left antecubital; Medication: 18:11 VIS not applicable for this client. mb9 Outcome: 17:53 Discharge ordered by MD. rn 18:11 Discharged to home via wheelchair, with family, mbWally 18:11 Condition: stable 18:11 Discharge instructions given to patient, family, Instructed on discharge instructions, follow up and referral plans. Demonstrated understanding of instructions, follow-up care, medications, Prescriptions given X 1, 18:15 Patient left the ED. [email or web address] Signatures: Dispatcher [employer] EDMS John Cha MD MD rn Peltier, Brian RN RN Anna Winchester RN RN Nilda Tapia RN RN mb9 Tamie Davis Corrections: (The following items were deleted from the chart) 14:51 14:49 Onset of symptoms was October 17, 2023 db db 14:54 14:49 Chief complaint: Patient states: ABD PAIN STATES NEEDS TO HAVE FLUID DRAINED FROM db HER ABDOMEN BUT HAS NOT BEEN ABLE TO GET AN APPOINTMENT. STATES LAST NIGHT PAIN STARTED TO INCREASE AND TODAY PAIN IS WORSE AND IS UNABLE TO MOVE db
[2023-10-17 18:21] VITALS: TEMP 98.3
[2023-10-17 18:23] VITALS: BP 147/84; O2SAT 100
== END 2023-10-17 18:15 | disposition home or self-care (01) ==
LOC: ER 14:17
DX: K91.873 Postprocedural seroma of a digestive system organ or structure following other procedure (principal)
CPT/HCPCS: 85025; 36415; 82565; 83690; 80053; 74177; 96374; 99284; Q9967; J2405

== ENCOUNTER → 2023-10-26 | Day surgery (SDC) | payer OTHER ==
[~2023-10-26] MED LIST: NA CHLORIDE 0.9% 1,000 ML ONE
[2023-10-26 09:34] LABS: PT Prothrombin Time 11.8 SECONDS (9.4-12.5); PTT, Activated Partial Thromb 33.3 SECONDS (24.3-36.9); Protime INR 1.06
[2023-10-26 10:07] LABS: Urine Specific Gravity/Preg 1.025 (1.005-1.030)
[2023-10-26] MEDS: HYDROCODONE/APAP 7.5/325 MG TAB ONE (11:16)
[2023-10-26 11:40] VITALS: TEMP 97.4
[2023-10-26 12:33] VITALS: BMI 56.5
[2023-10-26 12:52] VITALS: BP 163/85; O2SAT 95
--- NOTE | 2023-10-29 20:12 | RAD REPORT ---
PROCEDURE: ULTRASOUND GUIDED DRAIN PLACEMENT Pre-procedure diagnosis: Postsurgical fluid collection Post-procedure diagnosis: Seroma CLINICAL INDICATION: Female, 43 years old. DRAINAGE, abdominal wall fluid collection Additional clinical history: None. COMPLICATIONS: No immediate complications. IMPRESSION: Ultrasound guided placement of 14 Marshallese pigtail indwelling drainage catheter, yielding 1000 mL of da rk fluid. Additional procedure(s): Abscessogram was not performed. PLAN: Drain to bulb suction. PROCEDURE DETAILS: Consent: Informed consent for the procedure including risks, benefits and alternatives was obtained a nd time-out was performed prior to the procedure. Sedation: Sedation. Procedure: Ultrasound-guided drainage with 14 Marshallese pigtail drainage catheter. The collection in the anterior abdominal wall was initially punctured with a 17-gauge coaxial needle. Through this needle, a guidewire was placed. Following sequential fascial dilatation, a 14 Marshallese pigtail drainage catheter was placed. This was affixed to the skin with an adhesive device. A suction bulb was attached. Specimen: Aspirated fluid was not sent for analysis. Contrast used: None. Estimated blood loss: Less than 10 mL.
== END ==
LOC: DS 07:32
PROVIDERS: ATTEND Surgery
PROC: 0W9G30Z Drainage of Peritoneal Cavity with Drainage Device, Percutaneous Approach (ICD-10-PCS; principal; 2023-10-26)
DX: L76.34 Postprocedural seroma of skin and subcutaneous tissue following other procedure (principal)
CPT/HCPCS: 36415; 81025; 85610; 85730; 10160; 49406; J7030

== ENCOUNTER 2023-11-27 09:41 | Emergency (ER) | payer OTHER ==
[2023-11-27] MEDS ORDERED: MORPHINE 4 MG/ML SYR ONE (10:09)
[2023-11-27 10:27] LABS: Absolute Eosinophils 0.3 K/uL (0-0.5); Absolute Lymphocytes (CBC) 1.3 K/uL (0.7-4.9); Absolute Monocytes 0.4 K/uL (0.1-1.3); Absolute Neutrophil 5.8 K/uL (1.8-8.0); Basophils % 0.6 % (0-1.3); Eosinophils % 3.9 % (0-4.4); Hematocrit 35.3 % (36.0-45.0); Hemoglobin 11.5 g/dL (12.0-15.0); Lymphocytes % 16.6 % (15.3-44.8); MCH 25.6 pg (27.0-35.0); MCHC 32.4 g/dL (32.0-36.0); MCV 79.1 fL (80-100); MPV 7.5 fL (7.6-11.3); Monocytes % 5.2 % (3.3-12.3); Neutrophils % 73.7 % (41.7-73.7); Nucleated Red Blood Cells % 0.1 % (0-0); Platelets 287 thou/uL (152-406); RBC Red Blood Cell Count 4.47 M/uL (3.86-4.86); Red Cell Distribution Width 17.8 % (12.1-15.2)
[2023-11-27 10:41] LABS: Anion Gap 7.1 mEq/L (5.0-15.0); Potassium 4.1 mEq/L (3.5-5.1)
--- NOTE | 2023-11-27 11:11 | RAD REPORT ---
EXAMINATION: CT ABDOMEN AND PELVIS WITH CONTRAST CLINICAL INDICATION: drain in place, recent hernia repair;Abd pain TECHNIQUE: CT abdomen and pelvis was performed, after the administration of IV contrast, [facility]. Axial, sagittal and coronal reconstructions were obtained. One or more of the following dose reduction techniques were used: Automated exposure control, adjustment of the mA and k V according to patient size, and iterative reconstruction. Unless otherwise specified, incidental findings do not require dedicated imaging follow-up. COMPARISON: 11/05/2023 FINDINGS: LOWER CHEST: The visualized lung bases are clear. LIVER: Significant fatty liver with hepatomegaly present. No focal lesion or biliary dilitation. Madeleine ssly unremarkable gallbladder. SPLEEN: Normal size. No focal lesion. PANCREAS: No mass, ductal dilation, or marquis-pancreatic fluid. ADRENALS: Normal; no mass. KIDNEYS: Normal size and contour. No hydronephrosis. GASTROINTESTINAL TRACT: No evidence of free air, significant intra-abdominal free fluid, bowel obstru ction or abscess. Sigmoid diverticulosis coli. APPENDIX: Normal appendix. LYMPH NODES: Mildly prominent lymph nodes are seen in both inguinal regions. These are likely reactiv e in nature. MUSCULOSKELETAL: No acute or suspicious osseous abnormality. ADDITIONAL FINDINGS: Thick walled collection of fluid containing a drain is present in the anterior a bdominal fat, unchanged. Mild surrounding inflammation noted. POINTER HELPER shunt tubing noted. IMPRESSION: No acute process is identified. No significant change since 11/05/2023 study. Prominent fatty liver. Thick walled fluid collection in the anterior abdominal wall fat containing a drainage catheter again seen without significant change since comparison study. Mild surrounding inflammatory changes noted.
--- NOTE | 2023-11-27 11:32 | ER ---
Nurse's Notes [facility] Name: Kina Parham Age: 43 yrs Sex: Female : 1980 Arrival Date: 11/27/2023 Time: 09:41 Bed 14 Private MD: Diagnosis: Abdominal pain, Generalized;Post Operative Fluid Collection Presentation: 11/26 10:04 Chief complaint: Patient states: pain in left side of abdomen started yesterday. Has a tm6 DEONTE drain from a recent hernia repair (about a month ago). Ebola Screen: Patient negative for fever greater than or equal to 101.5 degrees Fahrenheit, and additional compatible Ebola Virus Disease symptoms Patient denies exposure to infectious person. Patient denies travel to an Ebola-affected area in the 21 days before illness onset. No symptoms or risks identified at this time. Initial Sepsis Screen: Does the patient meet any 2 criteria? No. Patient's initial sepsis screen is negative. Does the patient have a suspected source of infection? No. Patient's initial sepsis screen is negative. Risk Assessment: Do you want to hurt yourself or someone else? Patient reports no desire to harm self or others. Onset of symptoms was November 26, 2023. 10:04 Method Of Arrival: Wheelchair tm6 10:07 Coronavirus screen: Client denies travel out of the [place] in the last 14 days. tm6 10:07 Acuity: DOMINIC 3 tm6 Triage Assessment: 10:07 General: Appears uncomfortable, Behavior is calm, cooperative. Pain: Complains of pain tm6 in left upper quadrant and left lower quadrant Pain currently is 10 out of 10 on a pain scale. EENT: No signs and/or symptoms were reported regarding the EENT system. Neuro: Level of Consciousness is awake, alert, obeys commands, Oriented to person, place, time, situation. Cardiovascular: Patient's skin is warm and dry. Respiratory: Airway is patent Respiratory effort is even, unlabored, Respiratory pattern is regular, symmetrical. GI: Abdomen is round Reports lower abdominal pain, upper abdominal pain. : No signs and/or symptoms were reported regarding the genitourinary system. Derm: No signs and/or symptoms reported regarding the dermatologic system. Musculoskeletal: No signs and/or symptoms reported regarding the musculoskeletal system. 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 - Infectious Disease History:: Denies. - Social history:: Smoking status: Patient denies any tobacco usage or history of. Patient/guardian denies using alcohol. Screenin:25 [facility] ED Fall Risk Assessment (Adult) History of falling in the last 3 months, kc6 including since admission No falls in past 3 months (0 pts) Confusion or Disorientation No (0 pts) Intoxicated or Sedated No (0 pts) Impaired Gait No (0 pts) Mobility Assist Device Used No (0 pt) Altered Elimination No (0 pt) Score/Fall Risk Level 0 - 2 = Low Risk Oriented to surroundings. Abuse screen: Denies threats or abuse. Denies injuries from another. Nutritional screening: No deficits noted. Tuberculosis screening: No symptoms or risk factors identified. Assessment: 10:25 General: Appears in no apparent distress. uncomfortable, obese, well groomed, well kc6 developed, Behavior is cooperative, crying. Pain: Complains of pain in abdomen and left lower quadrant and left upper quadrant Pain does not radiate. Pain currently is 9 out of 10 on a pain scale. Pain began 1 day ago. Is continuous. Neuro: Level of Consciousness is awake, alert, obeys commands, Oriented to person, place, time, situation, Appropriate for age. Cardiovascular: Capillary refill < 3 seconds. Respiratory: Airway is patent Trachea midline Respiratory effort is even, unlabored, Respiratory pattern is regular, symmetrical. GI: Abdomen is round obese, Abdomen is tender to palpation in left upper quadrant and left lower quadrant Abd is rigid in left upper quadrant and left lower quadrant Reports lower abdominal pain, upper abdominal pain, Patient currently denies diarrhea, nausea, vomiting. : No signs and/or symptoms were reported regarding the genitourinary system. EENT: No signs and/or symptoms were reported regarding the EENT system. Derm: Skin is healthy with good turgor, Skin is pink, warm \T\ dry. DEONTE drain to the LLQ covered with a gauze dressing that is clean, dry and intact without redness swelling or drainage. Musculoskeletal: No signs and/or symptoms reported regarding the musculoskeletal system. Circulation, motion, and sensation intact. Capillary refill < 3 seconds, Range of motion: intact in all extremities. 11:51 Reassessment: Patient appears in no apparent distress at this time. No changes from kc6 previously documented assessment. Patient and/or family updated on plan of care and expected duration. Pain level reassessed. Patient is alert, oriented x 3, equal unlabored respirations, skin warm/dry/pink. Vital Signs: 10:03 BP 141 / 92; Pulse 79; Pulse Ox 95% on R/A; MAP 105 mmHg; tm6 10:07 Weight 127.01 kg; Height 5 ft. 0 in. ; Pain 10/10; tm6 10:27 BP 139 / 84; Pulse 72; Resp 16 S; Pulse Ox 92% on R/A; kc6 11:51 BP 100 / 80; Pulse 70; Resp 16 S; Pulse Ox 95% on R/A; kc6 10:07 Body Mass Index 54.68 (127.01 kg, 152.4 cm) tm6 10:07 Pain Scale: Adult tm6 ED Course: 09:42 Patient arrived in ED. mr 09:42 Pelon Purdy MD is Attending Physician. ec2 10:07 Triage completed. tm6 10:07 Arm band placed on right wrist. tm6 10:09 Shellie Hwang, GLORIA is Primary Nurse. kc6 10:22 Inserted saline lock: 20 gauge in right antecubital area, using aseptic technique. kc6 Blood collected. Flushed with 10 mL NS. Patient maintains SpO2 saturation greater than 95% on room air. 10:25 Patient has correct armband on for positive identification. Bed in low position. Call kc6 light in reach. Side rails up X2. Adult w/ patient. Pulse ox on. NIBP on. Door closed. Noise minimized. Lights dimmed. Pillow given. Diet: Patient is NPO. 10:52 CT Abd/Pelvis - IV Contrast Only In Process Unspecified. EDMS 11:52 No provider procedures requiring assistance completed. IV discontinued, intact, kc6 bleeding controlled, No redness/swelling at site. Pressure dressing applied. Administered Medications: 10:22 Drug: morphine IVP or IV 4 mg IVP once over 4 mins Route: IVP; Infused Over: 4 mins; kc6 Site: right antecubital; 11:51 Follow up: Response: No adverse reaction; Pain is decreased; RASS: Alert and Calm (0) kc6 Medication: 11:52 VIS not applicable for this client. kc6 Outcome: 11:32 Discharge ordered by . ec2 11:52 Discharged to home ambulatory, with family, with significant other, kc6 11:52 Condition: improved 11:52 Discharge instructions given to patient, family, significant other, Instructed on discharge instructions, follow up and referral plans. no drinking with medication, no driving heavy equipment, medication usage, wound care, Demonstrated understanding of instructions, follow-up care, medications, wound care, Prescriptions given X 1, 11:52 Patient left the ED. kc6 Signatures: Dispatcher [employer] EDNilda eHnry, Reg Reji mr Shellie Hwang, RN RN kc6 Pelon Purdy MD MD ec2 Ramos Johnson RN RN tm6
--- NOTE | 2023-11-27 11:32 | EDPHYS ---
Physician Documentation [facility] Name: Kina Parham Age: 43 yrs Sex: Female : 1980 Arrival Date: 11/27/2023 Time: 09:41 Bed 14 Private MD: ED Physician Pelon Purdy HPI: 11/26 10:10 This 43 yrs old Female presents to ER via Wheelchair with complaints of Pain. ec2 10:10 Patient arrives today for evaluation of abdominal pain. Patient with previous hernia ec2 repair has a DEONTE drain in place, complaining of abdominal pain. Patient reports no associated nausea or vomiting. Denies any urinary complaints. Patient reports she continues to have drainage into the drain.. 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 - Infectious Disease History:: Denies. - Social history:: Smoking status: Patient denies any tobacco usage or history of. Patient/guardian denies using alcohol. ROS: 10:10 Constitutional: as per hpi ec2 Exam: 10:10 Constitutional: GEN: NAD Head: atraumatic Eyes: EOMI Ears: External ears are ec2 normal. CV: regular rate LUNGS: no respiratory distress ABD: non-distended, soft, generally tender, not guarding, DEONTE drain in place with bloody output noted. SKIN: no evidence of rashes MSK: no evidence of trauma Vital Signs: 10:03 BP 141 / 92; Pulse 79; Pulse Ox 95% on R/A; MAP 105 mmHg; tm6 10:07 Weight 127.01 kg; Height 5 ft. 0 in. ; Pain 10/10; tm6 10:27 BP 139 / 84; Pulse 72; Resp 16 S; Pulse Ox 92% on R/A; kc6 11:51 BP 100 / 80; Pulse 70; Resp 16 S; Pulse Ox 95% on R/A; kc6 10:07 Body Mass Index 54.68 (127.01 kg, 152.4 cm) tm6 10:07 Pain Scale: Adult tm6 MDM: 10:10 Data reviewed: vital signs. ED course: Patient arrives today for evaluation of ec2 abdominal pain. Examination remarkable for abdominal findings as above. Will obtain lab work, CT imaging. Differential diagnosis includes postoperative complication, small bowel obstruction, pancreatitis. 10:49 Medical Screening Exam initiated ec2 11:31 ED course: I discussed the case w/ Dr. Manzano who will see her at her appt in 3d. Pt ec2 d/c to home, return precautions given. . 11/26 10:10 Order name: CBC with Diff; Complete Time: 10:43 ec2 11/26 10:10 Order name: BMP; Complete Time: 10:43 ec2 11/26 10:12 Order name: Lipase ec2 11/26 10:10 Order name: CT Abd/Pelvis - IV Contrast Only; Complete Time: 11:12 ec2 11/26 10:10 Order name: NPO; Complete Time: 10:12 ec2 Administered Medications: 10:22 Drug: morphine IVP or IV 4 mg IVP once over 4 mins Route: IVP; Infused Over: 4 mins; kc6 Site: right antecubital; 11:51 Follow up: Response: No adverse reaction; Pain is decreased; RASS: Alert and Calm (0) kc6 Disposition Summary: 11/27/23 11:32 Discharge Ordered Notes: Location: Home ec2 Condition: Stable ec2 Diagnosis - Abdominal pain, Generalized ec2 - Post Operative Fluid Collection ec2 Followup: ec2 - With: Private Physician - When: - Reason: Re-evaluation by your physician Discharge Instructions: - Discharge Summary Sheet ec2 - Abdominal Pain, Adult, Ghlk-ce-Aszo ec2 Forms: - Medication Reconciliation Form ec2 - Antibiotic Education ec2 - Prescription Opioid Use ec2 - Patient Portal Instructions ec2 - Leadership Thank You Letter ec2 Prescriptions: - acetaminophen-codeine 300-30 mg Oral tablet - take 1 tablet ORAL route every 6 hours; 15 tablet; Refills: 0, Product ec2 Selection Permitted Signatures: Dispatcher [employer] Shellie Vallecillo RN RN kc6 Pelon Pudry MD MD ec2 Ramos Johnson RN RN tm6 Corrections: (The following items were deleted from the chart) 10:11 10:11 CBC+H.LAB.BRZ ordered. EDMS EDMS 10:11 10:11 BASIC METABOLIC PANEL+C.LAB.BRZ ordered. EDMS EDMS 10:11 10:11 Abdomen Pelvis W Con+CT.RAD.BRZ ordered. EDMS EDMS
[2023-11-27 12:11] VITALS: BP 100/80; O2SAT 95
== END 2023-11-27 11:52 | disposition home or self-care (01) ==
LOC: ER 09:41
DX: K91.872 Postprocedural seroma of a digestive system organ or structure following a digestive system procedure (principal); Z98.2 Presence of cerebrospinal fluid drainage device
CPT/HCPCS: 85025; 80048; 36415; 83690; 74177; Q9967

== ENCOUNTER 2023-12-24 21:19 | Emergency (ER) | payer OTHER ==
[2023-12-24] MEDS ORDERED: HYDROCODONE/APAP 10/325 TAB ONE (22:23)
--- NOTE | 2023-12-24 22:32 | RAD REPORT ---
EXAMINATION: ONE VIEW CHEST XR CLINICAL INDICATION: Female, 43 years old.,CHEST PAIN TECHNIQUE: Frontal chest projection is submitted. Examination is limited by patient positioning and t echnique. COMPARISON: 08/05/2023 FINDINGS: The lungs are well inflated and clear. Elevation of the right hemidiaphragm. No pneumothorax or sizab le effusion. The heart is normal in size. Mediastinal contours are unremarkable. ASSEMBLER LATCHES AND SPRINGS shunt in place. IMPRESSION: No acute intrathoracic abnormalities.
[2023-12-24 22:48] LABS: Absolute Eosinophils 0.3 K/uL (0-0.5); Absolute Lymphocytes (CBC) 1.5 K/uL (0.7-4.9); Absolute Monocytes 0.5 K/uL (0.1-1.3); Absolute Neutrophil 5.7 K/uL (1.8-8.0); Anion Gap 8.8 mEq/L (5.0-15.0); Basophils % 0.5 % (0-1.3); Eosinophils % 3.7 % (0-4.4); Hematocrit 34.6 % (36.0-45.0); Hemoglobin 11.2 g/dL (12.0-15.0); Lymphocytes % 18.8 % (15.3-44.8); MCH 25.7 pg (27.0-35.0); MCHC 32.5 g/dL (32.0-36.0); MCV 79.2 fL (80-100); Monocytes % 5.7 % (3.3-12.3); Neutrophils % 71.3 % (41.7-73.7); Nucleated Red Blood Cells % 0.2 % (0-0); Platelets 286 thou/uL (152-406); Potassium 3.8 mEq/L (3.5-5.1); RBC Red Blood Cell Count 4.37 M/uL (3.86-4.86); Red Cell Distribution Width 17.4 % (12.1-15.2); Troponin High Sensitivity 3.8 pg/mL (<58.9)
[2023-12-24 23:22] LABS: SARS-CoV-2 Antigen CONTROL BLUE LINE VIS/BG OK; SARS-CoV-2 Antigen Rapid Res Negative (Negative)
--- NOTE | 2023-12-25 01:36 | EDPHYS ---
Physician Documentation [facility] Name: Kina Parham Age: 43 yrs Sex: Female : 1980 Arrival Date: 12/24/2023 Time: 21:19 Bed 14 Private MD: ED Physician John Cha HPI: 12/23 21:42 This 43 yrs old Female presents to ER via Wheelchair with complaints of Chest rn Pain - x3days. 21:43 Patient reports here for headache, chest pain, generalized weakness and malaise, rn discomfort and foul odor from abdominal drain. Reports all of this has been happening for the last 3 to 4 days. No documented fever at home. No trauma. Patient reports tried to go see Dr. Manzano that he was on vacation. Patient denies any chills or cough. No nasal congestion. No abdominal pain that is new. States has had slight discomfort since drain was placed. No drainage at skin or drain site.. 12/24 00:39 Onset: The symptoms/episode began/occurred at an unknown time. Severity of symptoms: At rn their worst the symptoms were mild in the emergency department the symptoms are unchanged. The patient has not experienced similar symptoms in the past. The patient has not recently seen a physician. 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 - Infectious Disease History:: Denies. - Social history:: Smoking status: Patient denies any tobacco usage or history of. - Family history:: not pertinent. - Hospitalizations: : No recent hospitalization is reported. ROS: 12/24 00:39 Constitutional: Negative for fever, chills, and weight loss, Eyes: Negative for injury, rn pain, redness, and discharge, Neck: Negative for injury, pain, and swelling, Cardiovascular: Negative for palpitations, and edema, Respiratory: Negative for shortness of breath, cough, wheezing, and pleuritic chest pain, Abdomen/GI: Positive for discomfort around drain site Back: Negative for injury and pain, MS/Extremity: Negative for injury and deformity, Skin: Negative for injury, rash, and discoloration, Neuro: Positive for headache and generalized malaise Exam: 00:39 Constitutional: Overweight female, no acute distress Head/Face: Normocephalic, rn atraumatic. Cardiovascular: Regular rate and rhythm. No pulse deficits. Respiratory: Speaking full sentences, unlabored. Abdomen/GI: Soft, no focal tenderness. No drainage near drain site with pressure, no surrounding erythema or foul smell MS/ Extremity: Pulses equal, no cyanosis. Neuro: Awake and alert, GCS 15 08:16 ECG was reviewed by the Attending Physician. rn Vital Signs: 12/23 21:34 BP 146 / 93; Pulse 113; Resp 19; Temp 99.5(O); Pulse Ox 96% on R/A; Pain 11/22; cm10 22:41 BP 154 / 88; Pulse 101; Resp 18; Pulse Ox 94% ; cp4 12/24 00:12 BP 163 / 95; Pulse 101; Resp 18; Pulse Ox 94% ; cp4 01:06 BP 133 / 88; Pulse 97; Resp 18; Pulse Ox 95% ; cp4 02:07 BP 155 / 98; Pulse 94; Resp 18; Pulse Ox 95% ; cp4 12/23 21:34 Pain Scale: Adult cm10 MDM: 12/23 21:22 Medical Screening Exam initiated rn 12/24 01:34 Differential Diagnosis Chronic pain, hypertension, viral illness, drain complication. rn Data reviewed: vital signs, nurses notes, lab test result(s), radiologic studies, CT scan, plain films, and as a result, I will discharge patient. Care significantly affected by the following chronic conditions: Diabetes, Hypertension. Counseling: I had a detailed discussion with the patient and/or guardian regarding the historical points, exam findings, and any diagnostic results supporting the discharge/admit diagnosis, lab results, radiology results, the need for outpatient follow up, to return to the emergency department if symptoms worsen or persist or if there are any questions or concerns that arise at home. Special discussion: I discussed with the patient/guardian in detail that at this point there is no indication for admission to the hospital. It is understood, however, that if the symptoms persist or worsen the patient needs to return immediately for re-evaluation. Based on the history and exam findings, there is no indication for further emergent testing or inpatient evaluation. I discussed with the patient/guardian the need to see the general surgeon for further evaluation of the symptoms. ED course: No acute findings and workup. Will place on antibiotics given report of foul smell from drain. Will follow-up with her surgeon Dr. Giraldo. Return precautions given and understood.. 12/23 20: Order name: Basic Metabolic Panel; Complete Time: 00:05 12/23 20: Order name: CBC with Diff; Complete Time: 00: 12/23 21:26 Order name: NT PRO-BNP; Complete Time: 00:05 12/23 21:26 Order name: Troponin HS; Complete Time: 00: 12/23 21:39 Order name: Flu; Complete Time: 00:05 cm 12/23 21:39 Order name: SARS RAPID; Complete Time: 00:05 [facility] 12/23 21:26 Order name: XRAY Chest (1 view); Complete Time: 00:05 12/23 21:38 Order name: CT Abd/Pelvis - IV Contrast Only [facility] 12/23 21:26 Order name: EKG; Complete Time: 21: 12/23 21:26 Order name: Cardiac monitoring; Complete Time: 22: 12/23 21:26 Order name: EKG - Nurse/Tech; Complete Time: : 12/23 21:26 Order name: IV Saline Lock; Complete Time: 22: 12/23 21:26 Order name: Labs collected and sent; Complete Time: 22: 12/23 21:26 Order name: O2 Per Protocol; Complete Time: : 12/23 21:26 Order name: O2 Sat Monitoring; Complete Time: :25 rn EC:16 Rate is 109 beats/min. Rhythm is regular. QRS [place] is Normal. FL interval is normal. rn QRS interval is normal. QT interval is normal. No Q waves. T waves are Normal. No ST changes noted. Clinical impression: Sinus tachycardia. Interpreted by me. Reviewed by me. Administered Medications: 12/23 22:26 Drug: [place] PO 10 mg-325 mg 1 tabs PO once Route: PO; cp4 12/24 00:00 Follow up: Response: No adverse reaction; Pain is decreased cp4 01:50 Drug: Clindamycin PO 300 mg PO once Route: PO; cp4 Disposition Summary: 12/25/23 01:35 Discharge Ordered Notes: Location: Home rn Problem: new rn Symptoms: have improved rn Condition: Stable rn Diagnosis - Abdominal pain, unspecified rn - Chest pain, unspecified rn Followup: rn - With: Eduar Manzano MD - When: 2 - 3 days - Reason: Recheck today's complaints, Re-evaluation by your physician Discharge Instructions: - Discharge Summary Sheet rn - Abdominal Pain, Adult rn - Nonspecific Chest Pain, Adult rn Forms: - Medication Reconciliation Form rn - Antibiotic 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 - Prescription Opioid Use rn - Patient Portal Instructions rn - Leadership Thank You Letter rn Prescriptions: - Clindamycin HCl 300 mg Oral Capsule - take 1 capsule ORAL route every 6 hours for 10 days; 40 capsule; Refills: 0, rn Product Selection Permitted - Tramadol 50 mg Oral Tablet - take 1 tablet ORAL route every 8 hours as needed; 12 tablet; Refills: 0, rn Product Selection Permitted Signatures: Dispatcher [employer] EDMS John Cha MD MD rn Martinez, Clarissa, RN RN cm10 Latrice Jovel cp4 Corrections: (The following items were deleted from the chart) 12/23 21:39 21:39 Influenza Screen (A \T\ B)+BA.LAB.BRZ ordered. EDMS EDMS 21:39 21:39 SARS-COV-2 Antigen Rapid+I.LAB.BRZ ordered. EDMS EDMS
--- NOTE | 2023-12-25 01:36 | ER ---
Nurse's Notes [facility] Name: Kina Parham Age: 43 yrs Sex: Female : 1980 Arrival Date: 12/24/2023 Time: 21:19 Bed 14 Private MD: Diagnosis: Abdominal pain, unspecified;Chest pain, unspecified Presentation: 12/23 21:34 Chief complaint: Patient states: chest pain and headache onset 3 days ago. Pt reports cm10 also having drain from abdomen that has been there for 1 month with foul odor. Coronavirus screen: Client denies travel out of the [place] in the last 14 days. Ebola Screen: Patient denies travel to an Ebola-affected area in the 21 days before illness onset. No symptoms or risks identified at this time. Initial Sepsis Screen: Does the patient meet any 2 criteria? HR > 90 bpm. Does the patient have a suspected source of infection? No. Patient's initial sepsis screen is negative. Risk Assessment: Do you want to hurt yourself or someone else? Patient reports no desire to harm self or others. Onset of symptoms was December 24, 2023. 21:34 Method Of Arrival: Wheelchair cm10 21:34 Acuity: DOMINIC 2 cm10 Triage Assessment: 21:35 General: Appears in no apparent distress. uncomfortable, Behavior is calm, cooperative. cm10 Neuro: No deficits noted. Level of Consciousness is awake, alert, obeys commands, Oriented to person, place, time, situation, Appropriate for age. Respiratory: No deficits noted. Airway is patent Respiratory effort is even, unlabored, Respiratory pattern is regular, symmetrical. 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 - Infectious Disease History:: Denies. - Social history:: Smoking status: Patient denies any tobacco usage or history of. - Family history:: not pertinent. - Hospitalizations: : No recent hospitalization is reported. Screenin:39 [facility] ED Fall Risk Assessment (Adult) History of falling in the last 3 months, cp4 including since admission No falls in past 3 months (0 pts) Confusion or Disorientation No (0 pts) Intoxicated or Sedated No (0 pts) Impaired Gait No (0 pts) Mobility Assist Device Used No (0 pt) Altered Elimination No (0 pt) Score/Fall Risk Level 0 - 2 = Low Risk Oriented to surroundings, Maintained a safe environment, Assessed \T\ reinforced patient's understanding of fall precautions, Hourly rounding (assess needs \T\ fall precautionary measures) done. Abuse screen: Denies threats or abuse. Nutritional screening: No deficits noted. Tuberculosis screening: No symptoms or risk factors identified. Assessment: 22:39 General: Appears in no apparent distress. uncomfortable, Behavior is calm, cooperative, cp4 appropriate for age. Pain: Complains of pain in chest and head Pain does not radiate. Pain currently is 10 out of 10 on a pain scale. Pain began 2-3 days ago. Neuro: Level of Consciousness is awake, alert, obeys commands, Oriented to person, place, time, situation. Cardiovascular: Patient's skin is warm and dry. Rhythm is sinus rhythm. Respiratory: Airway is patent Respiratory effort is even, unlabored. GI: has drain from abdomen. : No signs and/or symptoms were reported regarding the genitourinary system. EENT: No signs and/or symptoms were reported regarding the EENT system. Derm: No signs and/or symptoms reported regarding the dermatologic system. Musculoskeletal: No signs and/or symptoms reported regarding the musculoskeletal system. 23:30 Reassessment: Patient appears in no apparent distress at this time. Patient and/or cp4 family updated on plan of care and expected duration. Pain level reassessed. Patient is alert, oriented x 3, equal unlabored respirations, skin warm/dry/pink. 12/24 00:30 Reassessment: Patient appears in no apparent distress at this time. Patient and/or cp4 family updated on plan of care and expected duration. Pain level reassessed. Patient is alert, oriented x 3, equal unlabored respirations, skin warm/dry/pink. 01:30 Reassessment: Patient appears in no apparent distress at this time. Patient and/or cp4 family updated on plan of care and expected duration. Pain level reassessed. Patient is alert, oriented x 3, equal unlabored respirations, skin warm/dry/pink. Vital Signs: 12/23 21:34 BP 146 / 93; Pulse 113; Resp 19; Temp 99.5(O); Pulse Ox 96% on R/A; Pain 11/22; cm10 22:41 BP 154 / 88; Pulse 101; Resp 18; Pulse Ox 94% ; cp4 12/24 00:12 BP 163 / 95; Pulse 101; Resp 18; Pulse Ox 94% ; cp4 01:06 BP 133 / 88; Pulse 97; Resp 18; Pulse Ox 95% ; cp4 02:07 BP 155 / 98; Pulse 94; Resp 18; Pulse Ox 95% ; cp4 12/23 21:34 Pain Scale: Adult cm10 ED Course: 12/23 21:22 Patient arrived in ED. ra3 21:22 John Cha MD is Attending Physician. rn 21:35 Triage completed. cm10 21:35 Arm band placed on right wrist. EKG completed in triage. Results shown to MD. cm10 21:43 EKG done, by ED staff, reviewed by John Cha MD. cm10 22:00 Latrice Jovel is Primary Nurse. cp4 22:20 XRAY Chest (1 view) In Process Unspecified. EDMS 22:25 Inserted saline lock: 20 gauge in right antecubital area, using aseptic technique. cp4 Blood collected. Flushed with 10 mL NS. 22:39 Placed in gown. Bed in low position. Side rails up X2. Client placed on continuous cp4 cardiac and pulse oximetry monitoring. NIBP monitoring applied. site monitor on. Pulse ox on. NIBP on. 22:39 No provider procedures requiring assistance completed. Patient maintains SpO2 cp4 saturation greater than 95% on room air. 23:32 CT Abd/Pelvis - IV Contrast Only In Process Unspecified. EDMS 12/24 01:35 Eduar Manzano MD is Referral Physician. rn 02:09 Provided Education on: abdominal pain. cp4 02:09 intact, bleeding controlled, No redness/swelling at site. Pressure dressing applied. cp4 Administered Medications: 12/23 22:26 Drug: [place] PO 10 mg-325 mg 1 tabs PO once Route: PO; cp4 12/24 00:00 Follow up: Response: No adverse reaction; Pain is decreased cp4 01:50 Drug: Clindamycin PO 300 mg PO once Route: PO; cp4 Medication: 12/23 22:39 VIS not applicable for this client. cp4 Outcome: 12/24 01:35 Discharge ordered by . rn 02:08 Patient left the ED. cp4 02:09 Discharged to home ambulatory, cp4 02:09 Condition: stable 02:09 Discharge instructions given to patient, family, Instructed on discharge instructions, follow up and referral plans. medication usage, Demonstrated understanding of instructions, follow-up care, medications, Prescriptions given X 2, Signatures: Dispatcher [employer] EDMS John Cha MD MD rn Delores Griffin RN RN cm10 Latrice Jovel cp4 Jo Elaine
--- NOTE | 2023-12-25 04:45 | RAD REPORT ---
CLINICAL HISTORY: Abdominal pain. COMPARISON: CT Abdomen Pelvis 11/27/2023. TECHNIQUE: CT ABDOMEN PELVIS WITH IV CONTRAST on 12/24/2023 9:38 PM FIRER WATERTENDER This exam was performed according to our departmental dose-optimization program, which includes autom ated exposure control, adjustment of the mA and/or kV according to patient size and/or use of iterative reconstruction technique. FINDINGS: Lower lungs are clear. Abdomen: Liver is fatty in attenuation. There is no biliary dilatation. Gallbladder is decompressed. Right-sided ORACLE APPLICATION CONSULTANT shunt catheter tip is in the left lower quadrant. The pancreas and spleen are normal in appearance. The adrenal glands and kidneys are unremarkable. Abdominal aorta is normal in course and caliber without aneurysm. There is no free air. There is no r etroperitoneal adenopathy. Left lower quadrant abdominal wall abscess contains 10.2 x 5.0 cm and has significantly decreased in size. Drainage catheter remains within the collection. Pelvis: There is no bowel obstruction. Urinary bladder is unremarkable. There is no free fluid. Appen deysi is normal. Uterus is normal in size. Skeleton: There are no acute osseous findings. No suspicious bony lesions. IMPRESSION: Significantly improved left lower quadrant abdominal wall abscess. Electronically signed by: Donald Lee MD 12/25/2023 12:40 AM FIRER WATERTENDER RP Due to temporary technical issues with the PACS/Patient Home Monitoring reporting system, reports are being kiki d by the in-house radiologist without review as a courtesy to ensure prompt reporting the interpreting radiologist is fully responsible for the content of the report. Transcribed Date/Time: 12/25/2023 4:45 AM
--- NOTE | 2023-12-25 12:03 | EKG ---
Test Date: 2023-12-24 Test Time: 21:41:37 Senior Systems Software Engineer: CHONG MEASUREMENT RESULTS: Intervals: Rate: 109 UT: 170 QRSD: 94 QT: 328 QTc: 441 [place]: P: 50 UT: 170 QRS: 61 T: 26 INTERPRETIVE STATEMENTS: Sinus tachycardia Otherwise normal ECG Compared to ECG 08/05/2023 23:49:00 Sinus rhythm no longer present Electronically Signed On 12-25-23 12:01:51 MARKETING DEVELOPMENT REPRESENTATIVE by Trace Haynes
== END 2023-12-25 02:08 | disposition home or self-care (01) ==
LOC: ER 21:19
DX: R07.9 Chest pain, unspecified (principal); R10.9 Unspecified abdominal pain; R51.9 Headache, unspecified; R53.1 Weakness; E11.9 Type 2 diabetes mellitus without complications; I10 Essential (primary) hypertension; Z98.2 Presence of cerebrospinal fluid drainage device; Z11.52 Encounter for screening for COVID-19
CPT/HCPCS: 93005; 85025; 80048; 36415; 84484; 83880; 87804 ×2; 74177; 71045; 87811; Q9967; 99285

== ENCOUNTER 2024-06-16 20:05 | Emergency (ER) | payer OTHER ==
[2024-06-16] MEDS ORDERED: METOCLOPRAMIDE 10 MG/2mL INJ ONE (20:29)
[2024-06-16] MEDS ORDERED: DIPHENHYDRAMINE 50 MG/ML VIAL ONE (20:29)
[2024-06-16] MEDS ORDERED: droPERidol 5 MG/2 ML VIAL ONE (20:29)
[2024-06-16 21:02] LABS: Absolute Basophils 0.1 K/uL (0-0.5); Absolute Eosinophils 0.3 K/uL (0-0.5); Absolute Lymphocytes (CBC) 2.1 K/uL (0.7-4.9); Absolute Monocytes 0.4 K/uL (0.1-1.3); Absolute Neutrophil 5.3 K/uL (1.8-8.0); Basophils % 0.8 % (0-1.3); Eosinophils % 4.1 % (0-4.4); Hematocrit 37.9 % (36.0-45.0); Hemoglobin 12.4 g/dL (12.0-15.0); Lymphocytes % 25.6 % (15.3-44.8); MCH 27.3 pg (27.0-35.0); MCHC 32.8 g/dL (32.0-36.0); MCV 83.2 fL (80-100); MPV 8.2 fL (7.6-11.3); Monocytes % 5.1 % (3.3-12.3); Neutrophils % 64.4 % (41.7-73.7); Nucleated Red Blood Cells % 0.3 % (0-0); Platelets 207 thou/uL (152-406); RBC Red Blood Cell Count 4.56 M/uL (3.86-4.86); Red Cell Distribution Width 16.1 % (12.1-15.2)
--- NOTE | 2024-06-16 21:03 | RAD REPORT ---
EXAM: CT brain without contrast HISTORY: left side headache COMPARISON: 09/14/2022 TECHNIQUE: Multiple contiguous axial images were obtained and a CT of the brain without contrast. Sag ittal and coronal reformats were performed. One or more of the following dose reduction techniques were used: Automated exposure control, adjust ment of the mA and/or kV according to patient size, and/or iterative reconstruction. FINDINGS: No evidence of hydrocephalus, intracranial hemorrhage, or extra-axial fluid collection. The brain is normal in morphology. No evidence of midline shift or areas of brain edema. Ventriculos gisselle shunt is unchanged in position. The calvarium is intact. The visualized paranasal sinuses and mastoid air cells are essentially clear . IMPRESSION: No evidence of acute intracranial abnormality.
[2024-06-16 21:07] LABS: PT Prothrombin Time 11.9 SECONDS (10-13.0); Protime INR 1.05
[2024-06-16 21:25] LABS: ALT/SGPT 23 U/L (13-56); AST/SGOT 12 U/L (15-37); Albumin 3.5 g/dL (3.4-5.0); Albumin/Globulin Ratio 0.7 (1.1-1.8); Alkaline Phosphatase 107 U/L (45-117); Anion Gap 7.9 mEq/L (5.0-15.0); BUN Blood Urea Nitrogen 13 mg/dL (7-18); Bicarbonate 29 mEq/L (21-32); Bilirubin Total 0.3 mg/dL (0.2-1.0); Globulin 5.1 g/dL (2.3-3.5); Glomerular Filtration Rate 114 ml/min (=/>90); Glucose Level 109 mg/dL (74-106); NT PRO-BNP 36 pg/mL (<125); Potassium 3.9 mEq/L (3.5-5.1); Protein, Total 8.6 g/dL (6.4-8.2); Sodium Level 137 mEq/L (136-145); Troponin High Sensitivity 5.6 pg/mL (<58.9)
--- NOTE | 2024-06-16 21:27 | RAD REPORT ---
EXAM:Shuntogram HISTORY: CHEST PAIN COMPARISON: None FINDINGS/IMPRESSION: Right-sided shunt tubing is noted. The tubing exits the right superior calvarium and traverses the right neck, chest and terminates in the left abdomen. There is no evidence of significant kink or break in the tubing. The lungs appear clear. The heart is upper limit of normal i n size. Bowel gas pattern is unremarkable. Moderate retained stool in the colon.
[2024-06-16 21:28] LABS: Bilirubin Direct < 0.2 mg/dL (0-0.2); Bilirubin Indirect, Calculated 0.1 mg/dL (0.2-0.8)
[2024-06-16] MEDS ORDERED: dexAMETHasone 10 MG/ML VIAL ONE (22:50)
[2024-06-16] MEDS ORDERED: NA CHLORIDE 0.9% 1,000 ML ONE (22:51)
[2024-06-16] MEDS ORDERED: KETOROLAC 30 MG/ML INJ ONE (22:51)
[2024-06-16 23:48] LABS: Specific Gravity 1.029 (1.005-1.030); Sqamous Epithelial <5 /HPF (None Seen); Urine Bacteria <20 /HPF (<20); Urine Bilirubin NEGATIVE (Negative); Urine Blood Negative (Negative); Urine Clarity Turbid (Clear); Urine Color Light-Yellow (Yellow); Urine Crystals Unidentified Few /HPF (None Seen); Urine Culture Reflex Order NOT NEEDED; Urine Glucose NEGATIVE (Negative); Urine Ketones NEGATIVE (Negative); Urine Microscopic Reflex YN ORDER UMIC; Urine Mucus 1+ /HPF (None Seen); Urine Nitrite NEGATIVE (Negative); Urine Protein TRACE (Negative); Urine RBC <5 /HPF (None Seen); Urine Urobilinogen Normal (Normal); Urine WBC <5 /HPF (<5)
[2024-06-16 23:49] LABS: Specific Gravity 1.029 (1.005-1.030)
--- NOTE | 2024-06-17 00:06 | ER ---
Nurse's Notes [facility] Name: Kina Parham Age: 43 yrs Sex: Female : 1980 Arrival Date: 06/16/2024 Time: 20:05 Bed 3 Private MD: Diagnosis: Headache;Paresthesia of skin;Chest pain, unspecified;Cervicalgia Presentation: 06/16 20:10 Chief complaint: Patient states: Left sided headache onset 3 days ago that has cm10 progressively been getting worse. Pt states that the pain radiates to her neck. Pt states that the pain is worse in her temporal region and also reports photophobia. Coronavirus screen: Client denies travel out of the [place] in the last 14 days. Ebola Screen: Patient denies travel to an Ebola-affected area in the 21 days before illness onset. Initial Sepsis Screen: Does the patient meet any 2 criteria? No. Patient's initial sepsis screen is negative. Does the patient have a suspected source of infection? No. Patient's initial sepsis screen is negative. Risk Assessment: Do you want to hurt yourself or someone else? Patient reports no desire to harm self or others. Onset of symptoms was June 13, 2024. 20:10 Method Of Arrival: Wheelchair cm10 20:10 Acuity: DOMINIC 3 cm10 Triage Assessment: 20:13 General: Appears in no apparent distress. uncomfortable, Behavior is calm, cooperative. cm10 Neuro: No deficits noted. Level of Consciousness is awake, alert, obeys commands, Oriented to person, place, time, situation, Appropriate for age Reports headache in left photophobia. Respiratory: No deficits noted. Airway is patent Respiratory effort is even, unlabored, Respiratory pattern is regular, symmetrical. 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 - Infectious Disease History:: Denies. - Social history:: Smoking status: unknown. Screenin:15 [facility] ED Fall Risk Assessment (Adult) History of falling in the last 3 months, vc1 including since admission No falls in past 3 months (0 pts) Confusion or Disorientation No (0 pts) Intoxicated or Sedated No (0 pts) Impaired Gait No (0 pts) Mobility Assist Device Used No (0 pt) Altered Elimination No (0 pt) Score/Fall Risk Level 0 - 2 = Low Risk Oriented to surroundings, Maintained a safe environment, Educated pt \T\ family on fall prevention, incl call for assistance when getting out of bed, Hourly rounding (assess needs \T\ fall precautionary measures) done. Abuse screen: Denies threats or abuse. Nutritional screening: No deficits noted. Tuberculosis screening: No symptoms or risk factors identified. Assessment: 20:15 General: Appears in no apparent distress. uncomfortable, obese, Behavior is vc1 cooperative, restless. Pain: Complains of pain in forehead, left ear and left islam Pain does not radiate. Pain currently is 10 out of 10 on a pain scale. Quality of pain is described as sharp. Neuro: Level of Consciousness is awake, alert, obeys commands, Oriented to person, place, time, situation, Appropriate for age Reports headache in left frontal area. Cardiovascular: Heart tones S1 S2 present Capillary refill < 3 seconds Patient's skin is warm and dry. Respiratory: Airway is patent Respiratory effort is even, unlabored, Respiratory pattern is regular, symmetrical, Breath sounds are clear bilaterally. GI: No deficits noted. No signs and/or symptoms were reported involving the gastrointestinal system. : No deficits noted. No signs and/or symptoms were reported regarding the genitourinary system. EENT: No deficits noted. No signs and/or symptoms were reported regarding the EENT system. Derm: Skin is intact, is healthy with good turgor, Skin is dry, Skin is normal, Skin temperature is warm. Musculoskeletal: Circulation, motion, and sensation intact. Range of motion: intact in all extremities. 22:04 Reassessment: Patient appears in no apparent distress at this time. Patient and/or vc1 family updated on plan of care and expected duration. Pain level reassessed. Patient is alert, oriented x 3, equal unlabored respirations, skin warm/dry/pink. Patient states feeling better. Patient states symptoms have improved. 23:00 Reassessment: Patient appears in no apparent distress at this time. No changes from vc1 previously documented assessment. Patient and/or family updated on plan of care and expected duration. Pain level reassessed. Patient is alert, oriented x 3, equal unlabored respirations, skin warm/dry/pink. 06/17 00:33 Reassessment: Patient appears in no apparent distress at this time. Patient and/or vc1 family updated on plan of care and expected duration. Pain level reassessed. Patient is alert, oriented x 3, equal unlabored respirations, skin warm/dry/pink. Patient denies pain at this time. Patient states feeling better. Patient states symptoms have improved. Vital Signs: 06/16 20:10 BP 164 / 83; Pulse 78; Resp 18; Temp 98.2(O); Pulse Ox 95% on R/A; Weight 137.44 kg; cm10 Pain 10/10; 22:04 BP 148 / 83; Pulse 78; Resp 16; Pulse Ox 95% ; vc1 23:00 BP 130 / 74; Pulse 71; Resp 17; Pulse Ox 91% ; vc1 20:10 Pain Scale: Adult cm10 ED Course: 20:07 Patient arrived in ED. jj6 20:12 Cirilo Quarles PA is PHCP. cp 20:12 Alvin Cm MD is Attending Physician. cp 20:12 Triage completed. cm10 20:13 Arm band placed on right wrist. Patient placed in an exam room, on a stretcher. cm10 20:15 Patient has correct armband on for positive identification. Bed in low position. Call vc1 light in reach. Side rails up X2. Adult w/ patient. Provided Education on: Plan of care. manager utilization on. Pulse ox on. NIBP on. 20:29 Corrina Roland, RN is Primary Nurse. vc1 20:45 Inserted saline lock: 20 gauge in left antecubital area, using aseptic technique. Blood vc1 collected. Flushed with 10 mL NS. 20:45 Initial lab(s) drawn, by me, sent to lab. vc1 20:50 Test, Serum Sent. vc1 20:50 Basic Metabolic Panel Sent. vc1 20:51 CBC with Diff Sent. vc1 20:51 LFT's Sent. vc1 20:51 Magnesium Sent. vc1 20:51 NT PRO-BNP Sent. vc1 20:51 PT-INR Sent. vc1 20:51 Troponin HS Sent. vc1 20:56 CT Head Brain wo Cont In Process Unspecified. EDMS 21:24 Shunt, Aorta In Process Unspecified. EDMS 06/17 00:33 No provider procedures requiring assistance completed. IV discontinued, intact, vc1 bleeding controlled, No redness/swelling at site. Pressure dressing applied. Administered Medications: 06/16 20:50 Drug: metoCLOPramide IVP 10 mg IVP once; over 1 to 2 minutes Route: IVP; Site: left vc1 antecubital; 21:10 Follow up: Response: No adverse reaction vc1 20:50 Drug: diphenhydrAMINE IVP 25 mg IVP once Route: IVP; Site: left antecubital; vc1 21:10 Follow up: Response: No adverse reaction vc1 20:50 Drug: Droperidol IVP 1.25 mg IVP once Route: IVP; Site: left antecubital; vc1 21:10 Follow up: Response: No adverse reaction vc1 22:56 Drug: Ketorolac IVP 30 mg IVP once Route: IVP; Site: left antecubital; vc1 22:56 Drug: NS 0.9% IV 1000 ml IV at 1 bolus Per protocol; to be given as a bolus over 45 vc1 minutes Route: IV; Rate: 1 bolus; Site: left antecubital; 22:56 Drug: Dexamethasone IVP 10 mg IVP once Route: IVP; Site: left antecubital; vc1 Medication: 20:52 VIS not applicable for this client. vc1 Outcome: 06/17 00:06 Discharge ordered by . cp 00:33 Discharged to home ambulatory, with family, vc1 00:33 Condition: stable 00:33 Discharge instructions given to patient, family, Instructed on discharge instructions, follow up and referral plans. medication usage, Demonstrated understanding of instructions, follow-up care, medications, Prescriptions given X 3, 00:33 Patient left the ED. vc1 Signatures: Dispatcher [employer] EDMO Cirilo Quarles PA PA cp Jeffries, Jennifer jj6 Corrina Roland RN RN vc1 Delores Griffin RN RN cm10
--- NOTE | 2024-06-17 00:07 | EDPHYS ---
Physician Documentation [facility] Name: Kina Parham Age: 43 yrs Sex: Female : 1980 Arrival Date: 06/16/2024 Time: 20:05 Bed 3 Private MD: ED Physician Alvin Cm HPI: 06/16 20:25 This 43 yrs old Female presents to ER via Wheelchair with complaints of LEFT cp SIDE PAIN/NUMBNESS, Facial Droop, Headache. 20:25 The patient complains of pain to the left side of head and left jain. The patient cp describes the headache as aching, constant, pulsating. 20:25 Onset: The symptoms/episode began/occurred 3 day(s) ago. Associated signs and symptoms: cp Pertinent positives: blurred vision, numbness to left side of face, left ear pain, Pertinent negatives: fever, neck stiffness, vomiting, focal weakness. Severity of symptoms: in the emergency department the pain is unchanged, despite home interventions. 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 - Infectious Disease History:: Denies. - Social history:: Smoking status: unknown. ROS: 20:30 Constitutional: Negative for body aches, chills, fever, poor PO intake, cp 20:30 Eyes: Positive for blurry vision, cp 20:30 ENT: Positive for ear pain, Negative for drainage from ear(s), sore throat, difficulty swallowing, difficulty handling secretions, 20:30 Neck: Negative for pain with movement, pain at rest, stiffness, 20:30 Cardiovascular: Negative for chest pain, palpitations, 20:30 Respiratory: Negative for cough, shortness of breath, wheezing, 20:30 Abdomen/GI: Positive for nausea, Negative for abdominal pain, vomiting, diarrhea, constipation, 20:30 Neuro: Positive for headache, numbness, Negative for focal weakness, 20:30 All other systems are negative, Exam: 20:35 Constitutional: The patient appears in no acute distress, alert, awake, cp non-diaphoretic, non-toxic, well developed, well nourished, obese, uncomfortable, 20:35 Head/face: Noted is tenderness, that is moderate, of the left frontal area and left cp temporal area and left jain, no facial droop noted. 20:35 Eyes: Periorbital structures: appear normal, Pupils: equal, round, and reactive to light and accomodation, Extraocular movements: intact throughout, Conjunctiva: normal, no exudate, no injection, Sclera: no appreciated abnormality, Lids and lashes: appear normal, bilaterally, 20:35 ENT: External ear(s): are unremarkable, Ear canal(s): are normal, clear, TM's: dullness, bilaterally, Nose: is normal, Mouth: Lips: moist, Oral mucosa: pink and intact, moist, Posterior pharynx: Airway: no evidence of obstruction, patent, 20:35 Neck: ROM/movement: Meningeal signs: are not present, nuchal rigidity, is not appreciated, Lymph nodes: no appreciated lymphadenopathy, 20:35 Chest/axilla: Inspection: normal, 20:35 Cardiovascular: Rate: normal, Rhythm: regular, Edema: is not appreciated, JVD: is not appreciated, 20:35 Respiratory: the patient does not display signs of respiratory distress, Respirations: normal, no use of accessory muscles, no retractions, labored breathing, is not present, Breath sounds: are clear throughout, no decreased breath sounds, no stridor, no wheezing, 20:35 Abdomen/GI: Inspection: obese Palpation: abdomen is soft and non-tender, in all quadrants, 20:35 Back: pain, is absent, ROM is normal, 20:35 Neuro: Orientation: to person, place \T\ time. Mentation: is normal, Cerebellar function: Romberg testing is negative, Motor: moves all fours, strength is normal, Sensation: no obvious gross deficits, 20:35 Skin: cellulitis, is not appreciated, no rash present. cp 20:42 ECG was reviewed by the Attending Physician. cp Vital Signs: 20:10 BP 164 / 83; Pulse 78; Resp 18; Temp 98.2(O); Pulse Ox 95% on R/A; Weight 137.44 kg; cm10 Pain 10/10; 22:04 BP 148 / 83; Pulse 78; Resp 16; Pulse Ox 95% ; vc1 23:00 BP 130 / 74; Pulse 71; Resp 17; Pulse Ox 91% ; vc1 20:10 Pain Scale: Adult cm10 MDM: 20:14 Medical Screening Exam initiated cp 06/17 00:05 Data reviewed: vital signs, nurses notes, lab test result(s), EKG, radiologic studies, cp CT scan, and as a result, I will discharge patient. 00:05 Differential diagnosis: cerebral vascular accident, hypertensive headache, cp hypoglycemia, hyponatremia, intracerebral hemorrhage, meningoencephalitis, migraine, neoplasm, temporal arteritis, tension headache, TIA. I considered the following discharge prescriptions or medication management in the emergency department Medications were administered in the Emergency Department. See MAR. Independent interpretation of the following test(s) in the Emergency Department EKG: See my EKG interpretation above. Care significantly affected by the following chronic conditions: Diabetes, Hypertension, Obesity. Counseling: I had a detailed discussion with the patient and/or guardian regarding the historical points, exam findings, and any diagnostic results supporting the discharge/admit diagnosis, the presence of at least one elevated blood pressure reading (>120/80) during this emergency department visit, lab results, radiology results, to return to the emergency department if symptoms worsen or persist or if there are any questions or concerns that arise at home. Response to treatment: the patient's symptoms have markedly improved after treatment, and as a result, I will discharge patient. Special discussion: Based on the patient's history, exam, and Dx evaluation, there is no indication for emergent intervention or inpatient Tx. It is understood by the patient/guardian that if the Sx's persist or worsen they need to return immediately for re-evaluation. ED course: VSS. Pain markedly improved with treatment. Will discharge to home for continued. Low suspicion for TIA or CVA. 06/16 20:25 Order name: Basic Metabolic Panel; Complete Time: 21:33 cp 06/16 21:33 Interpretation: Normal except: GLUC 109. cp 06/16 20:25 Order name: CBC with Diff; Complete Time: 21:33 cp 06/16 21:33 Interpretation: Normal except: RDW 16.1. cp 06/16 20:25 Order name: LFT's; Complete Time: 21:33 cp 06/16 21:33 Interpretation: Normal except: AST 12; IBILI, CALC 0.1; TP 8.6; GLOB 5.1; A/G 0.7. cp 05/04 20:25 Order name: Magnesium; Complete Time: 21:33 cp 0504 20:25 Order name: NT PRO-BNP; Complete Time: 21:33 cp 0504 20:25 Order name: PT-INR; Complete Time: 21:33 cp 0504 20:25 Order name: Troponin HS; Complete Time: 21:33 cp 06/16 20:25 Order name: UA Rfx Adama Cult if indicated; Complete Time: 23:51 cp 05/ 23:51 Interpretation: Normal except: [facility] Turbid; UPROT TRACE. cp 0504 20:25 Order name: Test, Urine; Complete Time: 23:51 cp 04 20:36 Order name: Test, Serum; Complete Time: 21:33 lg3 05 20:26 Order name: Shunt, Aorta; Complete Time: 21:33 cp 04 20:26 Order name: CT Head Brain wo Cont; Complete Time: 21:33 cp 04 20:25 Order name: EKG; Complete Time: 20:25 cp 04 20:25 Order name: Cardiac monitoring; Complete Time: 20:50 cp 04 20:25 Order name: EKG - Nurse/Tech; Complete Time: 20:50 cp 04 20:25 Order name: IV Saline Lock; Complete Time: 20:50 cp 04 20:25 Order name: Labs collected and sent; Complete Time: 20:50 cp 04 20:25 Order name: O2 Per Protocol; Complete Time: 20:50 cp 04 20:25 Order name: O2 Sat Monitoring; Complete Time: 20:50 cp 04 20:44 Order name: Accucheck Blood Glucose; Complete Time: 21:51 cp EC/04 20:42 Rate is 74 beats/min. Rhythm is regular. VT interval is normal. QRS interval is normal. cp QT interval is normal. T waves are Inverted in lead aVR. Interpreted by me. Reviewed by me. Administered Medications: 20:50 Drug: metoCLOPramide IVP 10 mg IVP once; over 1 to 2 minutes Route: IVP; Site: left vc1 antecubital; 21:10 Follow up: Response: No adverse reaction vc1 20:50 Drug: diphenhydrAMINE IVP 25 mg IVP once Route: IVP; Site: left antecubital; vc1 21:10 Follow up: Response: No adverse reaction vc1 20:50 Drug: Droperidol IVP 1.25 mg IVP once Route: IVP; Site: left antecubital; vc1 21:10 Follow up: Response: No adverse reaction vc1 22:56 Drug: Ketorolac IVP 30 mg IVP once Route: IVP; Site: left antecubital; vc1 22:56 Drug: NS 0.9% IV 1000 ml IV at 1 bolus Per protocol; to be given as a bolus over 45 vc1 minutes Route: IV; Rate: 1 bolus; Site: left antecubital; 22:56 Drug: Dexamethasone IVP 10 mg IVP once Route: IVP; Site: left antecubital; vc1 Disposition: 06/17 00:43 Co-signature as Attending Physician, Alvin Cm MD I reviewed the patient's care rt provided by the Advanced Practice Provider and agree with the diagnosis and treatment plan. 18:39 Chart complete. cp Disposition Summary: 06/17/24 00:06 Discharge Ordered Notes: Location: Home cp Problem: new cp Symptoms: have improved cp Condition: Stable cp Diagnosis - Headache cp - Paresthesia of skin cp - Chest pain, unspecified cp - Cervicalgia cp Followup: cp - With: Private Physician - When: 2 - 3 days - Reason: Recheck today's complaints Discharge Instructions: - Discharge Summary Sheet cp - Nonspecific Chest Pain, Adult cp - Migraine Headache cp - Paresthesia cp - Aspirin and Your Heart cp Forms: - Medication Reconciliation Form cp - Antibiotic Education cp - Prescription Opioid Use cp - Patient Portal Instructions cp - Leadership Thank You Letter cp Prescriptions: - Fioricet 50-300-40 mg Oral capsule - take 1 capsule ORAL route every 6 hours as needed for headache; 20 capsule; cp Refills: 0, Product Selection Permitted - Anaprox DS 550 mg Oral Tablet - take 1 tablet ORAL route every 12 hours As needed; 20 tablet; Refills: 0, cp Product Selection Permitted - methocarbamol 750 mg Oral tablet - take 1 tablet ORAL route 3-4 times daily; 30 tablet; Refills: 0, Product cp Selection Permitted Signatures: Dispatcher MedConem[facility] Miners Medical CenterCirilo Corado PA PA cp Calcote, Vanessa RN RN vc1 Alvin mC MD MD rt Delores Griffin RN RN cm10 Corrections: (The following items were deleted from the chart) 06/16 20:45 20:25 Chest Single View+[email or web address] ordered. EDMS EDMS
[2024-06-17 01:43] VITALS: TEMP 98.2
[2024-06-17 01:44] VITALS: BP 130/74; O2SAT 91
--- NOTE | 2024-06-17 12:05 | EKG ---
Test Date: 2024-06-16 Test Time: 20:35:33 Aerospace Mechanic: ANTONINO MEASUREMENT RESULTS: Intervals: Rate: 74 VA: 178 QRSD: 98 QT: 382 QTc: 424 [place]: P: 58 VA: 178 QRS: 68 T: 51 INTERPRETIVE STATEMENTS: Normal sinus rhythm Normal ECG Compared to ECG 12/24/2023 21:41:37 Sinus tachycardia no longer present Electronically Signed On 06-17-24 12:04:25 CDT by Trace Haynes
== END 2024-06-17 00:33 | disposition home or self-care (01) ==
LOC: ER 20:05
DX: R51.9 Headache, unspecified (principal); R20.2 Paresthesia of skin; R07.9 Chest pain, unspecified; M54.2 Cervicalgia; Z98.2 Presence of cerebrospinal fluid drainage device; I10 Essential (primary) hypertension
CPT/HCPCS: 93005; 85025; 81001; 80048; 36415; 83735; 84703; 81025; 85610; 80076; 84484; 83880; 70450; 75809; 49427; J2765; J1200; J1100; J1790; J7030; 96374; 96375; 99285

== ENCOUNTER 2024-06-28 20:32 | Emergency (ER) | payer OTHER ==
--- OUTSIDE RECORDS SUMMARY | 2024-06-28 20:49 | XMS REPORT | Continuity of Care Document ---
Author Name Unknown Address [address] [facility] [address] [place] [address] [facility] Address [address] [facility] [address] [place] [address] Care Team Providers Care Drafter (Cad) Electronic Name Role Phone [facility] Primary Car e Physician Unavailable JERICHO COFFEY Attending Clinician Unavailable DANISHA MARTÍNEZ Attending Clinician Unavailab le LAB90 Attending Clinician Unavailable GRICELDA HEARN Attending Clinician Unavailable MIGUEL MENDOZA Attending Clinician Unavailable Renata Acosta DO Attending Clinician [phone] Miguel Mendoza MD Attending Clinician [phone] JORDAN GRIMALDO Attending Clinician Unavailable JORDAN GRIMALDO Attending Clinician Unavailable ALAN BENJAMIN Attending Clinician Unavailable Alan Benjamin DO Attending Clinician [phone] STEPHANIE CLAYTON Attending Clinician Unavailab le Doctor Unassigned, [place] Attending Clinician U olinda Campos RN, Rufina Palacios Attending Clinician [phone] Leila Junior MD, Salbador Attending Clinician [phone] Snehal DEVINE, Shannan Attending Clinician [phone] SAVANNA ALEX Attending Clinician Unavailable TOMOGRAPHY, [facility] [employer] Attending Clini angeli Unavailable BARRY GUEVARA Attending Clinician Unavailable Magda Gilliam LVN Attending Clinician [phone] JONES PHIPPS Attending Clinician Unavail able Yosi DEVINE, Mariusz Attending Clinician [phone] Arnold Laureano MD Attending Clinician [phone] Mayte Addison DO Attending Clinician [phone] Jones Phipps MD Attending Clinician Nataliia DEVINE, Tracie Attending Clinician [phone] ARNOLD LAUREANO Attending Clinician UnavailPAYAL Duke Attending Clinician Unavailable Jeanna Small Attending Clinician [phone] Payal Ray MD Attending Clinician [phone] RENATA ACOSTA Attending Clinician Unavailab Tamika Poon DO Attending Clinician [phone] Vitaliy Eason DO Attending Clinician [phone] TAMIKA VIEIRA Attending Clinician Unavailab Carolynn Ordoñez MD Attending Clinician [phone] RENATA ACOSTA Admitting Clinician Unavailab ALAN Solorio Admitting Clinician Unavailable JORDAN GRIMALDO Admitting Clinician Unavailable TRACIE WILLIAM Admitting Clinician Unavailable Nataliia DEVINE, Tracie Admitting Clinician [phone] ARNOLD LAUREANO Admitting Clinician UnavailPAYAL Duke Admitting Clinician Unavailable Payal Ray MD Admitting Clinician + [phone] Teqwimuah DO, Vitaliy Admitting Clinician [phone] CAROLYNN LOPEZ Admitting Clinician Unavailable Carolynn Lopez MD Admitting Clinician Payers Payer Name Policy Type Policy Number Effective Date Expirati on Date Source [employer] MP [employer] 5 [employer] 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 94 ON 9 [id number] 2023 00:00:00 [employer] 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 OF 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 [id number] 2022 00:00:00 Problems Condition Name Condition Details Condition Category Status Onset Date Resolution Date Last Treatment Date Treating Clinician Comments Source History of hernia repair History of hernia repair Disease Active 6-20 00:00: 00 Franny Seybold - Externa l DM type 2 with diabetic mixed hyperlipid emia (multi HCC) DM type 2 with diabetic mixed hyperlipid emia (multi HCC) Disease Active 1-11 00:00: 00 Franny Seybold - Externa l Empty sella (multi HCC) Empty sella (multi HCC) Disease Active - 00:00: 00 Franny Seybold - Externa l Ventral hernia Ventral hernia Disease Active 1- 00:00: 00 Franny Seybold - Externa l Congestive heart failure (CHF) (multi HCC) Congestive heart failure (CHF) (multi HCC) Disease Active -19 00:00: 00 Franny Seybold - Externa l DM (diabetes mellitus) (multi HCC) DM (diabetes mellitus) (multi HCC) Disease Active 05-20 00:00: 00 Franny Seybold - Externa l 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 Disease Active 05-20 00:00: 00 Franny Seybold - Externa l Prediabete s Prediabete s Disease Active 05-20 00:00: 00 Franny Seybold - Externa l Other specified anemias Other specified anemias Disease Active 05-20 00:00: 00 Franny Seybold - Externa l Arnold-Chi dickson malformati on, type I Arnold-Chi dickson malformati on, type I Disease Recurre nce 05-02 00:00: 00 [facility] Tonsillar hernia into foramen magnum Tonsillar hernia into foramen magnum Disease Active 05-02 00:00: 00 [facility] Papilledem a Papilledem a Disease Active 05-02 00:00: 00 [facility] IIH (idiopathi c intracrani al hypertensi on) IIH (idiopathi c intracrani al hypertensi on) Disease Active 04-29 00:00: 00 [facility] Primary hypertensi on Primary hypertensi on Disease Active 04-20 00:00: 00 Franny Banuelosold - Externa l Class 3 severe obesity due to excess calories without serious comorbidit y with body mass index (BMI) of 50.0 to 59.9 in adult Class 3 severe obesity due to excess calories without serious comorbidit y with body mass index (BMI) of 50.0 to 59.9 in adult Disease Active 04-20 00:00: 00 Franny Sebroderickold - Externa l 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 (multi HCC) Disease Active 04-20 00:00: 00 Franny Banuelosold - Externa l Benign intracrani al hypertensi on Benign intracrani al hypertensi on Disease Active 04-20 00:00: 00 Franny Banuelosold - Externa l Snoring Snoring Disease Active 04-20 00:00: 00 Franny Hartleyybold - Externa l Morbid obesity Morbid obesity Disease Active 04-20 00:00: 00 Franny Hartleyybold - Externa l RON on CPAP RON on CPAP Disease Active 04-20 00:00: 00 Franny Seybold - Externa l Mild intermitte nt asthma without complicati on (HHS-HCC) Mild intermitte nt asthma without complicati on (HHS-HCC) Disease Active 04-20 00:00: 00 Franny Banuelosold - Externa l Morbid obesity with body mass index of 50 or higher Morbid obesity with body mass index of 50 or higher Disease Active 2021-02 00:00: 00 [facility] Other headache syndrome Other headache syndrome Disease Active 2021-02 00:00: 00 [facility] Hypoxia Hypoxia Disease Active 2021-02 00:00: 00 [facility] Chronic respirator y failure with hypoxia and hypercapni a (multi HCC) Chronic respirator y failure with hypoxia and hypercapni a (multi HCC) Disease Active 2021-02 00:00: 00 Franny Seybold - Externa l Asthma with acute exacerbati on, unspecifie d asthma severity, unspecifie d whether persistent Asthma with acute exacerbati on, unspecifie d asthma severity, unspecifie d whether persistent Disease Active 09-30 00:00: 00 [facility] Shortness of breath Shortness of breath Disease Active 07-09 00:00: 00 [facility] Pneumonia Pneumonia Disease Active 07-09 00:00: 00 [facility] RESENDIZ (dyspnea on exertion) RESENDIZ (dyspnea on exertion) Disease Active 07-09 00:00: 00 [facility] Tachycardi a Tachycardi a Disease Active 07-09 00:00: 00 [facility] Essential hypertensi on Essential hypertensi on Disease Active 07-09 00:00: 00 [facility] Normal delivery Normal delivery Disease Active 09-13 00:00: 00 [facility] Screening for diabetes mellitus Screening for diabetes mellitus Disease Active 09-02 00:00: 00 Overview: Formattin g of this note might be different from the original. 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 Disease Active [facility] Insufficie nt care Insufficie nt care Disease Active [facility] Other abnormal glucose Other abnormal glucose Disease Active [facility] Other screening Other screening Disease Active [facility] Screening examinatio n for rubella Screening examinatio n for rubella Disease Active [facility] Supervisio n of other normal Supervisio n of other normal Disease Active [facility] R06.2 - WHEEZING R06.2 - WHEEZING Active [facility] Active 2023-08-18 15:26:00 Buddy Suh Allergies, Adverse Reactions, Alerts Allergy Name Allergy Type Status Severity Reaction(s) Onset Date Inactive Date Treating Clinician Comments Source NO KNOWN ALLERGIE S Drug Class Active [facility] Family History Family Member Diagnosis Comments Start Date Stop Date Sourc e Natural father Diabetes [facility] Natural mother Diabetes Un[facility] Social History Social Habit Start Date Stop Date Quantity Comments Source Gender identity [facility] History of tobacco use Passive smoker [facility] History SDOH Social Connections Get Together [facility] History SDOH Social Connections Jehovah[employer] Witness [facility] History SDOH Social Connections Membership [facility] History SDOH Social Connections Meetings [facility] ASSERTION Not Franny Mi - External History of Occupation Franny Mi - External Alcoholic beverage intake 2024-02-01 00:00:00 2024-02-01 00:00:00 Lifetime non-drinker (finding) Franny Mi - External Alcohol intake 2023-02-22 00:00:00 2023-02-22 00:00:00 Lifetime non-drinker (finding) Franny Mi - External Exposure to SARS-CoV-2 (event) 2022-05-24 00:00:00 2022-06-03 12:56:00 Not sure [facility] History of Social function 2022-06-03 00:00:00 2022-06-03 00:00:00 [facility] Tobacco use and exposure 2022-04-29 00:00:00 2022-04-29 00:00:00 Smokeless tobacco non-user [facility] History SDOH Alcohol Frequency 2022-04-29 00:00:00 2022-04-29 00:00:00 1 [facility] History SDOH Alcohol Std Drinks 2022-04-29 00:00:00 2022-04-29 00:00:00 0 [facility] History SDOH Alcohol Binge 2022-04-29 00:00:00 2022-04-29 00:00:00 1 [facility] History SDOH Social Connections Phone 2022-04-29 00:00:00 2022-04-29 00:00:00 5 [facility] History SDOH Social Connections Living 2022-04-29 00:00:00 2022-04-29 00:00:00 3 [facility] History SDOH Physical Activity DPW 2022-04-29 00:00:00 2022-04-29 00:00:00 0 [facility] History SDOH Physical Activity MPS 2022-04-29 00:00:00 2022-04-29 00:00:00 0 [facility] History SDOH Financial 2022-04-29 00:00:00 2022-04-29 00:00:00 4 [facility] History SDOH Food Worry 2022-04-29 00:00:00 2022-04-29 00:00:00 1 [facility] History SDOH Food Scarcity 2022-04-29 00:00:00 2022-04-29 00:00:00 1 [facility] History SDOH Transport Med 2022-04-29 00:00:00 2022-04-29 00:00:00 2 [facility] History SDOH Transport Non-Med 2022-04-29 00:00:00 2022-04-29 00:00:00 2 [facility] Education 2022-04-20 00:00:00 2022-04-20 00:00:00 7 Franny Mi - External Sex 2022-02-10 15:57:45 2022-02-10 15:57:45 Female (finding) Franny Mi - External Sex assigned at 1980 00:00:00 1980 00:00:00 Franny Mi - External Smoking Status Start Date Stop Date Source Never smoked tobacco Franny Hartleymallory - External Tobacco smoking consumption unknown [facility] Medications Ordered Medication Name Filled Medication Name Start Date Stop Date Current Medication? Ordering Clinician Indication Dosage Frequency Signature (SIG) Comments Components Source amlodipine 10 mg tablet 3- 00:00: 00 Yes mg Tr Samuel albuterol sulfate HFA 90 mcg/actuati on aerosol inhaler 3- 00:00: 00 Yes mcg/act uation Tr Samuel budesonide- formoterol HFA 160 mcg-4.5 mcg/actuati on aerosol inhaler 04-15 00:00: 00 Yes mcg/act uation Tr Samuel metformin 500 mg tablet 04-15 00:00: 00 Yes 1mg Tr Samuel prednisone 20 mg tablet 04-15 00:00: 00 Yes 1mg Tr Samuel hydrochloro thiazide 12.5 mg tablet - 00:00: 00 Yes 1mg Tr Samuel montelukast 10 mg tablet - 00:00: 00 Yes 1mg Tr Samuel cetirizine 10 mg capsule - 00:00: 00 Yes 1mg Tr Samuel Mometasone Furo-Formot jenniffer Fum 100-5 MCG/ACT inhalation Aerosol 2023-02 00:00: 00 Yes [id number] 2{puff} Q.5D Inhale 2 puffs into the lungs 2 times daily. Franny Mi - Externa l albuterol sulfate HFA 90 mcg/actuati on aerosol inhaler 2023-02 2- 00:00: 00 Yes mcg/act uation Tr Samuel budesonide- formoterol HFA 160 mcg-4.5 mcg/actuati on aerosol inhaler 2023-02 2- 00:00: 00 Yes mcg/act uation Tr Samuel metformin 500 mg tablet 2023-02- 00:00: 00 Yes mg Tr Samuel amlodipine 10 mg tablet 2023-02 1- 00:00: 00 Yes mg Tr Samuel Tramadol HCl (ULTRAM) 50 MG oral Tablet 2023-02 1- 00:00: 00 Yes 50mg [id number] 3D Take 1 tablet (50 mg total) by mouth every 8 hours as needed. Franny grant Amlodipine Besylate 10 MG oral Tablet 10-16 00:00: 00 Yes [id number] 10mg QD take 1 tablet by mouth every day Franyn grant Budesonide- Formoterol Fumarate 160-4.5 MCG/ACT inhalation Aerosol 08-02 00:00: 00 01-31 00:00 :00 No [id number] 2{puff} Q.5D Inhale 2 puffs into the lungs 2 times daily. Franny grant Dulaglutide (Trulicity) 0.75 MG/0.5ML subcutaneou s Solution Pen-injecto r 08-02 00:00: 00 08-02 00:00 :00 No [id number] 3 .75mg Inject 0.75 mg into the skin once a week. Franny grant Amlodipine Besylate 10 MG oral Tablet 02-22 00:00: 00 Yes [id number] 10mg Take 1 tablet (10 mg total) by mouth daily. Franny grant Metformin HCl 500 MG oral Tablet 02-22 00:00: 00 Yes [id number] 9109 500mg Take 1 tablet (500 mg total) by mouth in the morning and 1 tablet (500 mg total) in the evening. Take with meals. Franny grant Albuterol HFA 108 (90 Base) MCG/ACT IN AERS - 00:00: 00 Yes [id number] 2{puff} Q.25D Inhale 2 puffs into the lungs every 6 hours as needed for wheezing or shortness of breath. Franny grant Budesonide- Formoterol Fumarate 160-4.5 MCG/ACT inhalation Aerosol 02-22 00:00: 00 08-02 00:00 :00 No [id number] 2{puff} Inhale 2 puffs into the lungs 2 times daily. Franny grant Albuterol HFA 108 (90 Base) MCG/ACT IN AERS 2022-02 00:00: 00 02-22 00:00 :00 No [id number] 2{puff} Q.25D Inhale 2 puffs into the lungs every 6 hours as needed for wheezing or shortness of breath. Franny grant Amlodipine Besylate 10 MG oral Tablet 2022-02 00:00: 00 02-22 00:00 :00 No [id number] 10mg Take 1 tablet (10 mg total) by mouth daily. Franny grant Budesonide- Formoterol Fumarate 160-4.5 MCG/ACT inhalation Aerosol 2022-02 00:00: 00 02-22 00:00 :00 No [id number] 2{puff} Inhale 2 puffs into the lungs 2 times daily. Franny grant Docusate Sodium 100 MG oral Capsule 2022-02 00:00: 00 02-22 00:00 :00 No [id number] TAKE 1 CAPSULE BY MOUTH ONCE DAILY NEEDED FOR CONSTIPATI ON.. Franny grant Loratadine (Claritin) 10 MG oral tablet 2022-02 00:00: 00 02-22 00:00 :00 No [id number] 10mg Take 1 tablet (10 mg total) by mouth daily. Franny grant Metformin HCl 500 MG oral Tablet 2022-02 00:00: 02-22 00:00 :00 No [id number] 500mg Take 1 tablet (500 mg total) by mouth in the morning and 1 tablet (500 mg total) in the evening. Take with meals. Franny grant ipratropium -albuteroL (DUONEB) 0.5 mg-3 mg(2.5 mg base)/3 mL nebulizer solution 3 mL 09-08 04:30: 00 09-08 03:32 :00 No 3mL 3 mL, Inhalation , ONCE, 1 dose, On Mon09/07/22 at 2330, [facility] albuterol (PROVENTIL) 2.5 mg /3 mL (0.083 %) nebulizer solution 7.5 mg 09-08 04:30: 00 09-08 03:32 :00 No 7.5mg 7.5 mg, Inhalation , ONCE, 1 dose, On Mon09/07/22 at 2330, STAT [facility] methylPREDN ISolone sod succ (SOLU-MEDRO L (PF)) injection 40 mg 09-08 03:30: 00 09-08 03:50 :00 No 40mg 40 mg, Intravenou s, ONCE, 1 dose, On Mon09/07/22 at 2230, [facility] traMADoL (ULTRAM) 50 mg tablet 09-08 00:00: 00 Yes [id number] 50mg Take 1 tablet by mouth every 6 (six) hours as needed for Pain (scale 4-6). Indication s: acute pain [facility] diphenhydrA MINE (BENADRYL) injection 25 mg 08-18 23:45: 00 08-19 00:06 :00 No 25mg 25 mg, Slow IV Push, ONCE, 1 dose, On Mon08/18/22 at 1845, [facility] metoclopram young HCl (REGLAN) injection 10 mg 08-18 23:45: 00 08-19 00:06 :00 No 10mg 10 mg, Slow IV Push, ONCE, 1 dose, On Mon08/18/22 at 1845, [facility] Amlodipine Besylate 10 MG oral Tablet 08-15 00:00: 00 Yes [id number] 10mg Take 1 tablet (10 mg total) by mouth daily Franny grant Budesonide- Formoterol Fumarate 160-4.5 MCG/ACT inhalation Aerosol 08-15 00:00: 00 Yes [id number] 2{puff} Inhale 2 puffs into the lungs 2 times daily Franny gratn Albuterol HFA 108 (90 Base) MCG/ACT IN AERS 08-15 00:00: 00 Yes [id number] 2{puff} Q.25D Inhale 2 puffs into the lungs every 6 hours as needed for wheezing or shortness of breath Franny grant Loratadine (Claritin) 10 MG oral tablet 08-15 00:00: 00 Yes [id number] 10mg Take 1 tablet (10 mg total) by mouth daily Franny grant Lisinopril 10 MG oral Tablet 08-15 00:00: 00 08-15 00:00 :00 No [id number] TAKE 1 TABLET BY MOUTH EVERY DAY Franny grant Furosemide (LASIX) 20 MG oral Tablet 5-19 00:00: 00 08-15 00:00 :00 No 20mg Take 1 tablet (20 mg total) by mouth 2 times daily FOR 3 DAYS Franny grant Benzonatate 100 MG oral Capsule 5- 00:00: 00 08-15 00:00 :00 No TAKE 1 CAPSULE BY MOUTH THREE TIMES A DAY NEEDED COUGH Franny grant predniSONE (DELTASONE) 20 MG oral tablet - 00:00: 00 08-15 00:00 :00 No 20mg Take 1 tablet (20 mg total) by mouth 2 times daily Franny grant Lisinopril 10 MG oral Tablet 05-20 00:00: 00 Yes [id number] 10mg Take 1 tablet (10 mg total) by mouth daily Franny grant Amlodipine Besylate (NORVASC) 5 MG oral Tablet 05-20 00:00: 00 08-15 00:00 :00 No [id number] 5mg Take 1 tablet (5 mg total) by mouth daily Franny grant Topiramate 50 MG oral Tablet 05-20 00:00: 00 08-15 00:00 :00 No [id number] 50mg Take 1 tablet (50 mg total) by mouth 2 times daily Franny grant HYDROcodone -Acetaminop hen (NORCO) 5-325 MG oral Tablet 05-20 00:00: 00 08-15 00:00 :00 No [id number] 1{tbl} Q.5D Take 1 tablet by mouth 2 times daily as needed for pain Franny Hiwot - Elizabetha rudy HYDROcodone -Acetaminop hen (NORCO) 5-325 MG oral Tablet 05-09 00:00: 00 05-20 00:00 :00 No Franny Hiwot - Externa l lisinopriL 10 mg tablet 05-08 16:28: 29 Yes 10mg Take 1 tablet by mouth daily. [facility] budesonide- formoteroL 160-4.5 mcg/actuati on inhaler 05-08 16:28: 29 Yes 2{puff} Inhale 2 Puffs as needed. [facility] enoxaparin (LOVENOX) injection 40 mg 05-08 02:00: 00 Yes 40mg 40 mg, Subcutaneo us, Q24H, First dose on 05/07/22 at 2100, Until Discontinu ed, Routine [facility] gabapentin (NEURONTIN) capsule 100 mg 05-08 01:00: 00 Yes 100mg 100 mg, Oral, TID, First dose on 05/07/22 at 2000, Until Discontinu ed, Routine [facility] HYDROcodone -acetaminop hen (NORCO) 5-325 mg tablet 05-08 00:00: 00 Yes [id number] 1{tbl} Take 1 tablet by mouth every 6 (six) hours as needed for Pain (scale 7-10). Indication s: acute pain [facility] docusate 100 mg capsule 05-08 00:00: 00 Yes [id number] 100mg Take 1 capsule by mouth once daily as needed for Constipati on. [facility] oxyCODONE immediate release tablet 5 mg 05-07 21:52: 36 Yes 5mg 5 mg, Oral, Q6HPRN, Starting on 05/07/22 at 1652, Until Discontinu ed, Routine, Pain (scale 7-10)
F aculty member approving Restricted medication : JORDAN GRIMALDO [facility] ibuprofen (IBU) tablet 400 mg 05-07 21:51: 53 Yes 400mg 400 mg, Oral, Q6HPRN, Starting on 05/07/22 at 1651, Until Discontinu ed, Routine, Pain (scale 4-6) [facility] polyethylen e glycol 3350 powder 17 g 05-07 16:00: 00 Yes 17g 17 g, Oral, BID, First dose on [facility] 05/07/22 at 1100, Until Discontinu ed, Routine [facility] KCL 20 mEq/15 mL solution 40 mEq 05-07 11:30: 00 05-07 11:20 :00 No [id number] 40 mEq, Oral, ONCE, 1 dose, On 05/07/22 at 0630, Routine [facility] lisinopriL 10 mg tablet 05-07 10:11: 39 Yes 10mg Take 1 tablet by mouth daily. [facility] budesonide- formoteroL 160-4.5 mcg/actuati on inhaler 05-07 10:11: 39 Yes 2{puff} Inhale 2 Puffs as needed. [facility] HYDROcodone -acetaminop hen (NORCO) 5-325 mg tablet 05-07 00:00: 00 Yes [id number] 1{tbl} Take 1 tablet by mouth every 6 (six) hours as needed for Pain (scale 7-10). Indication s: acute pain [facility] Docusate Sodium 100 MG oral Capsule 05-07 00:00: 00 Yes [id number] TAKE 1 CAPSULE BY MOUTH ONCE DAILY NEEDED FOR CONSTIPATI ON. Franny grant Ondansetron HCl 4 MG oral Tablet 05-07 00:00: 00 08-15 00:00 :00 No [id number] TAKE 1 TABLET BY MOUTH EVERY 8 HOURS NEEDED FOR NAUSEA AND VOMITING . Franny grant Amlodipine Besylate (NORVASC) 5 MG oral Tablet 05-07 00:00: 00 05-20 00:00 :00 No 5mg Take 1 tablet (5 mg total) by mouth daily Franny grant Topiramate 50 MG oral Tablet 05-07 00:00: 00 05-20 00:00 :00 No 50mg Take 1 tablet (50 mg total) by mouth 2 times daily Franny grant ceFAZolin (ANCEF) injection 1,000 mg 05-06 20:15: 00 05-07 14:38 :00 No 1000mg 1,000 mg, Intravenou s, Q8H ABX, 3 doses, First dose (after last modificati on) on Mon05/06/22 at 1515, Last dose on Mon05/07/22 at 0715
Re ason for Anti-Infec tive: Surgical Prophylaxi s
[facility] rg[facility] Prophylaxi s: Neurosurge ry
Dura tion of therapy: within 24 hours of surgery [facility] labetaloL (NORMODYNE) injection 20 mg 05-06 15:30: 30 Yes 20mg 20 mg, Slow IV Push, Q4HPRN, Starting on Mon05/06/22 at 1030, Until Discontinu ed, Routine, SBP >140 [facility] hydralAZINE (APRESOLINE ) injection 10 mg 05-06 15:30: 22 Yes 10mg 10 mg, Slow IV Push, Q4HPRN, Starting on Mon05/06/22 at 1030, Until Discontinu ed, Routine, SBP >140 [facility] vancomycin (VANCOCIN) injection 05-06 14:30: 00 05-06 16:27 :46 No PRN, Starting on Mon05/06/22 at 0930, Until Mon05/06/22 at 1127, LOGAN, Intra-op [facility] lidocaine-e pinephrine (XYLOCAINE WITH EPINEPHRINE ) 0.5 %-1:200,000 injection 05-06 13:30: 00 05-06 16:27 :46 No PRN, Starting on Mon05/06/22 at 0830, Until Mon05/06/22 at 1127, Routine, Intra-op [facility] proMETHazin e (PHENERGAN) 12.5 mg in NS 50 mL IV piggyback (CNR) 05-05 21:01: 05 Yes 12.5mg 12.5 mg, IV Piggyback, at 200 mL/hr Administer over 15 Minutes, Q4HPRN, Starting on Astrid 05/05/22 at 1601, Until Discontinu ed, Routine, N/V alternatin g with Ondansetro n [facility] acetaminoph en (TYLENOL) tablet 1,000 mg 05-03 03:00: 00 Yes 1000mg 1,000 mg, Oral, Q8H, First dose on Mon05/02/22 at 2200, Until Discontinu ed, Routine [facility] hydralAZINE (APRESOLINE ) injection 10 mg 05-03 02:09: 37 05-06 15:30 :51 No 10mg 10 mg, Slow IV Push, Q4HPRN, Starting on Mon05/02/22 at 2109, Until Mon05/06/22 at 1030, Routine, SBP >160 [facility] ondansetron (ZOFRAN (PF)) injection 4 mg 05-02 17:04: 22 Yes 4mg 4 mg, Slow IV Push, Q6HPRN, Nausea and Vomiting (N/V), Starting on Mon05/02/22 at 1204
Do ses of ondansetro n 16 mg and above need to be administer ed via IV piggyback. For Dose >=24mg ECG monitoring is advisable.
[facility] morpHINE (2 mg/mL) injection 2 mg 05-02 14:10: 15 Yes 2mg 2 mg, Slow IV Push, Q3HPRN, Starting on Mon05/02/22 at 0910, Until Discontinu ed, Routine, Pain (scale 7-10) [facility] pantoprazol e (PROTONIX) EC tablet 40 mg 05-02 14:00: 00 Yes 40mg 40 mg, Oral, DAILY, First dose on Mon05/02/22 at 0900, Until Discontinu ed, Routine [facility] enoxaparin (LOVENOX) injection 40 mg 05-02 14:00: 00 05-06 01:14 :53 No 40mg 40 mg, Subcutaneo us, Q24H, First dose on 05/02/22 at 0900, Until Discontinu ed, Routine [facility] topiramate (TOPAMAX) tablet 50 mg 05-02 01:00: 00 Yes 50mg 50 mg, Oral, BID, First dose (after last modificati on) on 05/01/22 at 2000, Until Discontinu ed, Routine
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 approving Restricted medication : MYLENE ALLAN [facility] NaCl 0.9% (NS) IV infusion 1,000 mL 05-01 15:15: 00 Yes 1000mL at 42 mL/hr, IV Infusion, CONTINUOUS , Starting on Mon05/01/22 at 1015, Until Discontinu ed, Routine [facility] ceFAZolin (ANCEF) 1,000 mg in NaCl 0.9% (NS) 100 mL MINI-BAG 05-01 04:15: 00 05-06 14:29 :50 No 1000mg 1,000 mg, Intravenou s, Q8H ABX, 42 doses, First dose on 04/30/22 at 2315, Last dose on 05/14/22 at 1515, Administer over 30 Minutes, 100 mL
Reas on for Anti-Infec tive: Surgical Prophylaxi s
Surgi charles Prophylaxi s: Neurosurge ry
Dura tion of therapy: within 24 hours of surgery [facility] labetaloL (NORMODYNE) injection 20 mg 04-30 10:24: 32 05-06 15:30 :51 No 20mg 20 mg, Slow IV Push, Q4HPRN, Starting on 04/30/22 at 0524, Until Mon05/06/22 at 1030, Routine, SBP >160 [facility] hydralAZINE (APRESOLINE ) injection 5 mg 04-30 10:24: 32 05-03 02:09 :57 No 5mg 5 mg, Slow IV Push, Q4HPRN, Starting on Mon04/30/22 at 0524, Until 05/02/22 at 2109, Routine, SBP >160 [facility] Sliding Scale Insulin - Lispro (HumaLOG) + Fsbg Testing 04-30 02:00: 00 Yes Subcutaneo us, TID MEALS+HS, First dose on Mon04/29/22 at 2100, Until Discontinu ed, Routine [facility] glucagon (GLUCAGEN DIAGNOSTIC KIT) injection 1 mg 04-29 22:05: 17 Yes 1mg 1 mg, Intramuscu lar, PRN, Starting on Mon04/29/22 at 1705, Until Discontinu ed, LOGAN, Blood Glucose < or = 70 mg/dL and patient is NPO, unable to swallow or has mental changes. [facility] dextrose 50 % in water (D50W) injection 25 mL 04-29 22:05: 17 Yes 25mL 25 mL, Slow IV Push, PRN, Starting on Mon04/29/22 at 1705, Until Discontinu ed, LOGAN, Blood Glucose < or = 70 mg/dL and patient is NPO, unable to swallow or has mental status changes. [facility] enoxaparin (LOVENOX) injection 40 mg 04-29 22:00: 00 04-30 18:25 :09 No 40mg 40 mg, Subcutaneo us, DAILY, First dose on Mon04/29/22 at 1700, Until Discontinu ed, Routine [facility] acetaZOLAMI DE (DIAMOX) tablet 500 mg 04-29 19:15: 00 05-01 13:43 :18 No 500mg 500 mg, Oral, TID, First dose on Mon04/29/22 at 1415, Until Discontinu ed, Routine [facility] amLODIPine (NORVASC) tablet 5 mg 04-29 14:00: 00 Yes 5mg 5 mg, Oral, DAILY, First dose on Mon04/29/22 at 0900, Until Discontinu ed, Routine [facility] lisinopriL (PRINIVIL,Z ESTRIL) tablet 10 mg 04-29 14:00: 00 Yes 10mg 10 mg, Oral, DAILY, First dose on Mon04/29/22 at 0900, Until Discontinu ed, Routine [facility] topiramate (TOPAMAX) tablet 25 mg 04-29 13:00: 00 05-01 13:43 :18 No 25mg 25 mg, Oral, BID, First dose on Mon04/29/22 at 0800, Until Discontinu ed, Routine
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 approving Restricted medication : SHANNAN BRIAN [facility] magnesium sulfate in water 2 gram/50 mL (4 %) infusion 2 g 04-29 08:15: 00 04-29 09:02 :00 No 2g 2 g, IV Piggyback, Administer over 60 Minutes, ONCE, 1 dose, On Mon04/29/22 at 0315, Routine [facility] furosemide (LASIX) injection 40 mg 04-29 07:00: 00 04-29 08:00 :00 No 40mg 40 mg, Slow IV Push, ONCE, 1 dose, On Mon04/29/22 at 0200, Routine [facility] acetaZOLAMI DE (DIAMOX) injection 500 mg 04-29 07:00: 00 04-29 19:00 :02 No 500mg 500 mg, Slow IV Push, Q8HA1, First dose on Mon04/29/22 at 0200, Until Discontinu ed, Routine [facility] proCHLORper azine (COMPAZINE) 10 mg in NaCl 0.9% (NS) piggyback 04-29 06:30: 00 05-05 21:01 :31 No 10mg 10 mg, IV Piggyback, at 100 mL/hr Administer over 30 Minutes, Q8HPRN, Starting on Mon04/29/22 at 0130, Until Astrid 05/05/22 at 1601, Routine, Nausea and Vomiting (N/V) [facility] ketorolac (TORADOL) injection 30 mg 04-29 06:27: 50 05-02 06:26 :50 No 30mg 30 mg, Slow IV Push, Q8HPRN, Starting on Mon04/29/22 at 0127, Until 05/02/22 at 0126, Routine, Pain (scale 7-10) [facility] docusate (COLACE) capsule 100 mg 04-29 05:37: 03 Yes 100mg 100 mg, Oral, QDAILYPRN, Starting on Mon04/29/22 at 0037, Until Discontinu ed, Routine, Constipati on [facility] acetaminoph en (TYLENOL) tablet 650 mg 04-29 05:37: 03 05-03 02:37 :40 No 650mg 650 mg, Oral, Q6HPRN, Starting on Mon04/29/22 at 0037, Until 05/02/22 at 2137, Routine, Pain (scale 4-6), Pain (scale 1-3), Temp > 38 C [facility] acetaZOLAMI DE (DIAMOX) tablet 250 mg 04-29 01:00: 00 Yes 250mg 250 mg, Oral, TID, First dose on Astrid 04/28/22 at 2000, Until Discontinu ed, Routine [facility] lisinopriL 10 mg tablet 04-28 22:29: 37 Yes 10mg Take 1 tablet by mouth daily. [facility] Budesonide- Formoterol Fumarate 160-4.5 MCG/ACT inhalation Aerosol 04-20 00:00: 00 08-15 00:00 :00 No [id number] 2{puff} Inhale 2 puffs into the lungs 2 times daily Franny grant Albuterol HFA 108 (90 Base) MCG/ACT IN AERS 04-20 00:00: 00 08-15 00:00 :00 No [id number] 2{puff} Q.25D Inhale 2 puffs into the lungs every 6 hours as needed for wheezing or shortness of breath Franny grant Lisinopril 10 MG oral Tablet 04-20 00:00: 00 05-20 00:00 :00 No [id number] 10mg Take 1 tablet (10 mg total) by mouth daily Franny grant TAKE 3 TABLETS BY MOUTH ONCE DAILY FOR 5 DAYS 02-15 00:00: 00 No TAKE 3 TABLETS BY MOUTH ONCE DAILY FOR 5 DAYS 02-15 00:00: 00 Yes Tr Rafael Jimmie lisinopriL 10 mg tablet 2021-02 16:55: 57 Yes 10mg Take 10 mg by mouth daily. [facility] budesonide- formoteroL (SYMBICORT) 160-4.5 mcg/actuati on inhaler 2021-02 16:55: 57 Yes 2{puff} Inhale 2 Puffs as needed. [facility] acetaZOLAMI DE 250 mg tablet 2021-02 00:00: 00 Yes [id number] 500mg Take 2 tablets by mouth 3 (three) times daily. [facility] melatonin 3 mg tablet 2021-02 00:00: 00 Yes [id number] 3mg Take 1 tablet by mouth at bedtime. [facility] topiramate 25 mg tablet 2021-02 00:00: 00 05-07 00:00 :00 No [id number] 25mg Take 1 tablet by mouth 2 (two) times daily. [facility] acetaZOLAMI DE (DIAMOX) 250 MG oral Tablet 2021-02 00:00: 00 04-20 00:00 :00 No 2{tbl} Take 2 tablets by mouth 3 times daily Franny grant [facility] Melatonin 3 MG oral Tablet 2021-02 00:00: 00 04-20 00:00 :00 No 1{tbl} Take 1 tablet by mouth at bedtime Franny grant melatonin (MELATIN) tablet 3 mg 2021-02 03:00: 00 Yes 3mg 3 mg, Oral, QHS, First dose on 01/15/22 at 2100, Until Discontinu ed, Routine [facility] hydrOXYzine (ATARAX) tablet 25 mg 2021-02 00:00: 00 01-16 00:44 :00 No 25mg 25 mg, Oral, ONCE, 1 dose, On 01/15/22 at 1800, Routine [facility] NaCl 0.9% (NS) IV infusion 500 mL 2021-02 20:00: 00 01-15 23:00 :00 No 500mL at 150 mL/hr, IV Infusion, ONCE, 1 dose, On 01/15/22 at 1400, Routine [facility] topiramate (TOPAMAX) tablet 25 mg 2021-02 19:30: 00 Yes 25mg 25 mg, Oral, BID, First dose on 01/15/22 at 1330, Until Discontinu ed, Routine
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 approving Restricted medication : JONES PHIPPS [facility] traMADoL (ULTRAM) tablet 50 mg 2021-02 16:09: 31 Yes 50mg 50 mg, Oral, Q6HPRN, Starting on 01/15/22 at 1009, Until Discontinu ed, Routine, Pain (scale 7-10) [facility] iopamidol (ISOVUE 370-500 mL) injection 80 mL 2021-02 03:15: 00 01-15 03:30 :00 No [id number] 80mL 80 mL, Intravenou s, ONCE, 1 dose, On Mon01/14/22 at 2130, Routine [facility] sodium bicarbonate 8.4 % (1 mEq/mL) injection 2021-02 18:22: 21 Yes Slow IV Push, PRN, Starting on Mon01/14/22 at 1222, Until Discontinu ed, [facility] lidocaine 1% (PF) (XYLOCAINE) injection 2021-02 18:21: 43 Yes PRN, Starting on Mon01/14/22 at 1221, Until Discontinu ed, Routine [facility] lisinopriL (PRINIVIL,Z ESTRIL) tablet 10 mg 2021-02 16:30: 00 Yes 10mg 10 mg, Oral, DAILY, First dose on Astrid 01/13/22 at 1030, Until Discontinu ed, Routine [facility] traMADoL (ULTRAM) tablet 50 mg 2021-02 11:48: 15 01-15 11:47 :15 No 50mg 50 mg, Oral, Q8HPRN, Starting on Mon01/13/22 at 0548, Until 01/15/22 at 0547, Routine, Pain (scale 4-6) [facility] lisinopriL 10 mg tablet 2021-02 21:44: 25 Yes 10mg Take 10 mg by mouth daily. [facility] budesonide- formoteroL (SYMBICORT) 160-4.5 mcg/actuati on inhaler 2021-02 21:44: 25 Yes 2{puff} Inhale 2 Puffs as needed. [facility] acetaZOLAMI DE (DIAMOX) tablet 500 mg 2021-02 20:30: 00 Yes 500mg 500 mg, Oral, BID, First dose on Mon01/12/22 at 1430, Until Discontinu ed, Routine [facility] docusate (COLACE) capsule 100 mg 2021-02 15:00: 00 Yes 100mg 100 mg, Oral, DAILY, First dose on Mon01/11/22 at 0900, Until Discontinu ed, Routine [facility] enoxaparin (LOVENOX) injection 40 mg 2021-02 15:00: 00 Yes 40mg 40 mg, Subcutaneo us, DAILY, First dose on Mon01/11/22 at 0900, Until Discontinu ed, Routine [facility] predniSONE (DELTASONE) tablet 10 mg 2021-02 15:00: 00 01-14 03:22 :00 No 10mg 10 mg, Oral, BID, 6 doses, First dose on Mon01/11/22 at 0900, Last dose on Mon01/13/22 at 2000, Routine [facility] budesonide- formoteroL (SYMBICORT) 160-4.5 mcg/actuati on inhaler 2 Puff 2021-02 14:00: 00 01-13 13:59 :00 No 2{puff} 2 Puff, Inhalation , BID, 5 doses, First dose on Mon01/11/22 at 0800, Last dose on Mon01/13/22 at 0800, Routine [facility] butalbital- acetaminoph en-caff (ESGIC) 50-325-40 mg tablet 1 tablet 2021-02 13:53: 37 01-15 16:09 :42 No 1{tbl} 1 tablet, Oral, Q4HPRN, Starting on Mon01/11/22 at 0753, Until 01/15/22 at 1009, Routine, [facility] ipratropium -albuteroL (DUONEB) 0.5 mg-3 mg(2.5 mg base)/3 mL nebulizer solution 3 mL 2021-02 12:00: 00 01-16 11:59 :00 No 3mL 3 mL, Inhalation , Q6H, 20 doses, First dose on Mon01/11/22 at 0600, Last dose on Mon01/16/22 at 0000, Routine [facility] ondansetron (ZOFRAN (PF)) injection 4 mg 2021-02 09:08: 23 Yes 4mg 4 mg, Slow IV Push, Q6HPRN, Starting on Mon01/11/22 at 0308, Until Discontinu ed, Routine, Nausea and Vomiting (N/V) [facility] morpHINE (2 mg/mL) injection 2 mg 2021-02 09:08: 10 01-12 09:07 :10 No 2mg 2 mg, Slow IV Push, Q4HPRN, Starting on Mon01/11/22 at 0308, Until Mon01/12/22 at 0307, Routine, Pain (scale 7-10) [facility] acetaminoph en (TYLENOL) tablet 650 mg 2021-02 09:07: 58 Yes 650mg 650 mg, Oral, Q6HPRN, Starting on Mon01/11/22 at 0307, Until Discontinu ed, Routine, Pain (scale 1-3) [facility] ketorolac (TORADOL) injection 30 mg 2021-02 05:00: 00 01-11 04:32 :00 No 30mg 30 mg, Slow IV Push, ONCE, 1 dose, On Mon01/10/22 at 2300, Routine [facility] NaCl 0.9% (NS) bolus infusion 500 mL 2021-02 04:15: 00 01-11 05:00 :00 No 500mL at 999 mL/hr, 500 mL, IV Infusion, ONCE, 1 dose, On Mon01/10/22 at 2215, STAT [facility] iopamidol (ISOVUE 370-500 mL) injection 100 mL 2021-02 04:15: 00 01-11 04:15 :00 No [id number] 100mL 100 mL, Intravenou s, ONCE, 1 dose, On Mon01/10/22 at 2215, Routine [facility] acetaminoph en (TYLENOL) tablet 975 mg 2021-02 02:30: 00 01-11 01:28 :00 No 975mg 975 mg, Oral, ONCE, 1 dose, On Mon01/10/22 at 2030, LOGAN [facility] metoclopram young HCl (REGLAN) injection 10 mg 2021-02 01:30: 00 01-11 01:28 :00 No 10mg 10 mg, Slow IV Push, ONCE, 1 dose, On Mon01/10/22 at 1930, [facility] hydroCHLORO thiazide 25 mg tablet 10-02 00:00: 00 11-02 04:59 :00 No [id number] 25mg Take 1 tablet by mouth daily for 30 days. [facility] lisinopriL 40 mg tablet 10-02 00:00: 00 11-02 04:59 :00 No [id number] 40mg Take 1 tablet by mouth daily for 30 days. [facility] loratadine 10 mg tablet 10-02 00:00: 00 11-02 04:59 :00 No [id number] 10mg Take 1 tablet by mouth daily for 30 days. [facility] montelukast 10 mg tablet 10-02 00:00: 00 11-02 04:59 :00 No [id number] 10mg Take 1 tablet by mouth daily for 30 days. [facility] predniSONE 20 mg tablet 10-02 00:00: 00 10-08 04:59 :00 No [id number] 40mg Take 2 tablets by mouth daily for 5 days. [facility] sulfur hexafluorid e microsphr (LUMASON) injection 5 mL 10-01 16:15: 00 10-01 16:15 :00 No [id number] 5mL 5 mL, Intravenou s, ONCE, 1 dose, On Mon10/01/21 at 1115, Routine
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 approving Restricted medication : JADEN MEDINA [facility] amLODIPine 10 mg tablet 10-01 14:41: 48 10-01 00:00 :00 No 10mg Take 10 mg by mouth daily. [facility] loratadine 10 mg tablet 10-01 14:41: 48 10-01 00:00 :00 No 10mg Take 10 mg by mouth daily. [facility] hydroCHLORO thiazide 12.5 mg tablet 10-01 14:41: 48 10-01 00:00 :00 No 12.5mg Take 12.5 mg by mouth daily. Unsure on the dosage she takes [facility] metFORMIN 500 mg tablet 10-01 14:41: 48 10-01 00:00 :00 No 500mg Take 500 mg by mouth 2 (two) times daily with meals. [facility] montelukast (SINGULAIR) tablet 10 mg 10-01 14:00: 00 Yes 10mg 10 mg, Oral, DAILY, First dose on Mon10/01/21 at 0900, Until Discontinu ed, Routine [facility] lisinopriL (PRINIVIL,Z ESTRIL) tablet 40 mg 10-01 14:00: 00 Yes 40mg 40 mg, Oral, DAILY, First dose (after last modificati on) on Mon10/01/21 at 0900, Until Discontinu ed, Routine [facility] predniSONE (DELTASONE) tablet 40 mg 10-01 14:00: 00 Yes 40mg 40 mg, Oral, DAILY, First dose on Mon10/01/21 at 0900, Until Discontinu ed, [facility]ine [facility] loratadine (CLARITIN) tablet 10 mg 10-01 14:00: 00 Yes 10mg 10 mg, Oral, DAILY, First dose on Mon10/01/21 at 0900, Until Discontinu ed, Routine [facility] hydroCHLORO thiazide (ESIDRIX) tablet 25 mg 10-01 14:00: 00 Yes 25mg 25 mg, Oral, DAILY, First dose on Mon10/01/21 at 0900, Until Discontinu ed, Routine [facility] enoxaparin (LOVENOX) injection 40 mg 10-01 14:00: 00 Yes 40mg 40 mg, Subcutaneo us, DAILY, First dose on Mon10/01/21 at 0900, Until Discontinu ed, Routine [facility] metFORMIN (GLUCOPHAGE ) tablet 500 mg 10-01 13:00: 00 Yes 500mg 500 mg, Oral, BID MEALS, First dose on Mon10/01/21 at 0800, Until Discontinu ed, Routine [facility] Sliding Scale Insulin - Lispro (HumaLOG) + Fsbg Testing 10-01 02:00: 00 Yes Subcutaneo us, TID MEALS+HS, First dose on Mon09/30/21 at 2100, Until Discontinu ed, Routine [facility] traMADoL (ULTRAM) tablet 50 mg 10-01 01:32: 26 Yes 50mg 50 mg, Oral, Q6HPRN, Starting on Mon09/30/21 at 2031, Until Discontinu ed, Routine, Pain (scale 7-10) [facility] acetaminoph en (TYLENOL) tablet 650 mg 10-01 01:32: 02 Yes 650mg 650 mg, Oral, Q6HPRN, Starting on Mon09/30/21 at 2031, Until Discontinu ed, Routine, Pain (scale 4-6) [facility] glucagon (GLUCAGEN DIAGNOSTIC KIT) injection 1 mg 10-01 01:23: 10 Yes 1mg 1 mg, Intramuscu lar, PRN, Starting on Mon09/30/21 at 2022, Until Discontinu ed, LOGAN, Blood Glucose < or = 70 mg/dL and patient is unable to swallow or has mental changes. [facility] dextrose 50 % in water (D50W) injection 25 mL 10-01 01:23: 10 Yes 25mL 25 mL, Slow IV Push, PRN, Starting on Mon09/30/21 at 2022, Until Discontinu ed, LOGAN, Blood Glucose < or = 70 mg/dL and patient is unable to swallow or has mental status changes. [facility] diphenhydrA MINE (BENADRYL) tablet 25 mg 10-01 01:10: 16 Yes 25mg 25 mg, Oral, Q6HPRN, Starting on Mon09/30/21 at 2009, Until Discontinu ed, Routine, Itching, Mild Rash [facility] ipratropium -albuteroL (DUONEB) 0.5 mg-3 mg(2.5 mg base)/3 mL nebulizer solution 3 mL 10-01 01:00: 00 Yes 3mL 3 mL, Inhalation , Q4H, First dose on Mon09/30/21 at 1999, Until Discontinu ed, Routine [facility] diphenhydrA MINE 25 mg tablet 10-01 00:00: 00 Yes [id number] 25mg Take 1 tablet by mouth every 6 (six) hours as needed for Itching or Allergies. [facility] Budesonide 180 mcg/actuati on aerosol powder 10-01 00:00: 00 Yes [id number] 2{puff} Inhale 2 Puffs 2 (two) times daily. [facility] metFORMIN 500 mg tablet 10-01 00:00: 00 11-01 04:59 :00 No [id number] 500mg Take 1 tablet by mouth 2 (two) times daily with meals for 30 days. [facility] ipratropium -albuteroL (DUONEB) 0.5 mg-3 mg(2.5 mg base)/3 mL nebulizer solution 3 mL 09-30 23:30: 00 09-30 22:37 :00 No 3mL 3 mL, Inhalation , ONCE, 1 dose, On Mon09/30/21 at 1830, Routine [facility] albuterol (PROVENTIL) 2.5 mg /3 mL (0.083 %) nebulizer solution 2.5 mg 09-30 23:25: 56 Yes 2.5mg 2.5 mg, Inhalation , Q2HPRN, Starting on Mon09/30/21 at 1825, Until Discontinu ed, Routine, Shortness of Breath, Wheezing [facility] budesonide (PULMICORT RESPULE) nebulizer solution 0.5 mg 09-30 23:15: 00 Yes .5mg 0.5 mg, Inhalation , DAILY, First dose on Mon09/30/21 at 1815, Until Discontinu ed, Routine [facility] acetaminoph en (TYLENOL) tablet 650 mg 09-30 23:04: 08 Yes 650mg 650 mg, Oral, Q6HPRN, Starting on Mon09/30/21 at 1804, Until Discontinu ed, Routine, Pain (scale 1-3) [facility] ipratropium -albuteroL (DUONEB) 0.5 mg-3 mg(2.5 mg base)/3 mL nebulizer solution 3 mL 09-30 22:45: 00 09-30 21:34 :00 No 3mL 3 mL, Inhalation , ONCE, 1 dose, On Mon09/30/21 at 1745, Routine [facility] magnesium sulfate in D5W 1 gram/100 mL RTU IV Piggyback 1 g 09-30 22:00: 00 09-30 22:22 :00 No 1g 1 g, IV Piggyback, ONCE, 1 dose, On Mon09/30/21 at 1700, Administer over 60 Minutes, 100 mL [facility] ipratropium -albuteroL (DUONEB) 0.5 mg-3 mg(2.5 mg base)/3 mL nebulizer solution 3 mL 09-30 21:45: 00 09-30 20:58 :00 No 3mL 3 mL, Inhalation , ONCE, 1 dose, On Mon09/30/21 at 1645, Routine [facility] methylPREDN ISolone sod succ (SOLU-MEDRO L (PF)) injection 125 mg 09-30 21:00: 00 09-30 21:00 :00 No 125mg 125 mg, Intravenou s, ONCE, 1 dose, On Mon09/30/21 at 1600, [facility] Dose Unknown 2021-0 8-11 00:00: 00 No Dose Unknown 2021-0 8-11 00:00: 00 No Dose Unknown 2021-0 8-11 00:00: 00 No Dose Unknown 2021-0 8-11 00:00: 00 No Dose Unknown 2021-0 8-11 00:00: 00 Yes Tr Samuel albuterol (PROVENTIL) 2.5 mg /3 mL (0.083 %) nebulizer solution 7.5 mg 09-09 05:15: 00 09-09 04:28 :00 No 7.5mg 7.5 mg, Inhalation , ONCE, 1 dose, On Mon09/09/21 at 0015, STAT [facility] albuterol (PROVENTIL) 2.5 mg /3 mL (0.083 %) nebulizer solution 7.5 mg 09-09 03:45: 00 09-09 03:07 :00 No 7.5mg 7.5 mg, Inhalation , ONCE, 1 dose, On Mon09/08/21 at 2245, STAT [facility] ipratropium -albuteroL (DUONEB) 0.5 mg-3 mg(2.5 mg base)/3 mL nebulizer solution 3 mL 09-09 03:45: 00 09-09 03:07 :00 No 3mL 3 mL, Inhalation , ONCE, 1 dose, On Mon09/08/21 at 2245, Routine [facility] methylPREDN ISolone sod succ (SOLU-MEDRO L (PF)) injection 40 mg 09-09 02:45: 00 09-09 02:48 :00 No 40mg 40 mg, Intravenou s, ONCE, 1 dose, On Mon09/08/21 at 2145, LOG[facility] sodium chloride (NS) injection 5 mL 09-09 02:37: 17 Yes 5mL 5 mL, Intravenou s, PRN, Starting on Mon09/08/21 at 2137, Until Discontinu ed, Routine, IV line flushing [facility] predniSONE 20 mg tablet 09-09 00:00: 00 Yes [id number] Take 1 tablet by mouth daily until gone [facility] albuterol 90 mcg/actuati on inhaler 09-09 00:00: 00 Yes [id number] 2{puff} Inhale 2 Puffs every 4 (four) hours as needed for Wheezing or Shortness of Breath. [facility] Dose Unknown 08-19 00:00: 00 No Dose Unknown 08-19 00:00: 00 No Dose Unknown 08-19 00:00: 00 No Dose Unknown 08-19 00:00: 00 No Dose Unknown 08-19 00:00: 00 No Dose Unknown 08-19 00:00: 00 No Dose Unknown 08-19 00:00: 00 No Dose Unknown 08-19 00:00: 00 No Dose Unknown 08-19 00:00: 00 No Dose Unknown 08-19 00:00: 00 No Dose Unknown 08-19 00:00: 00 Yes Tr Samuel Dose Unknown 08-19 00:00: 00 Yes Tr Samuel Dose Unknown 08-18 00:00: 00 Yes Tr Samuel TAKE 1 TABLET TWICE DAILY WITH FOOD. 08-18 00:00: 00 Yes 500 Tr Samuel Dose Unknown 08-18 00:00: 00 No TAKE 1 TABLET TWICE DAILY WITH FOOD. 08-18 00:00: 00 No 500 Dose Unknown 08-18 00:00: 00 No TAKE 1 TABLET TWICE DAILY WITH FOOD. 08-18 00:00: 00 No 500 Dose Unknown 08-18 00:00: 00 No TAKE 1 TABLET TWICE DAILY WITH FOOD. 08-18 00:00: 00 No 500 Dose Unknown 08-18 00:00: 00 No Dose Unknown 08-18 00:00: 00 No TAKE 1 TABLET TWICE DAILY WITH FOOD. 08-18 00:00: 00 No 500 TAKE 1 TABLET TWICE DAILY WITH FOOD. 08-18 00:00: 00 No 500 Dose Unknown 07-31 00:00: 00 Yes Tr Samuel Dose Unknown 07-31 00:00: 00 Yes Tr Samuel amlodipine 10 mg tablet 07-31 00:00: 00 No 1mg hydrochloro thiazide 12.5 mg tablet 07-31 00:00: 00 No 1mg Dose Unknown 07-31 00:00: 00 No hydrochloro thiazide 12.5 mg tablet 07-31 00:00: 00 No 1mg Dose Unknown 07-31 00:00: 00 No Dose Unknown 07-31 00:00: 00 No amlodipine 10 mg tablet 07-31 00:00: 00 No 1mg hydrochloro thiazide 12.5 mg tablet 07-31 00:00: 00 No 1mg Dose Unknown 07-31 00:00: 00 No Dose Unknown 07-31 00:00: 00 No INHALE 2 PUFFS TWICE DAILY. RINSE MOUTH AFTER USE. 06-21 00:00: 00 Yes Tr Samuel Dose Unknown 06-21 00:00: 00 Yes Tr Samuel loratadine 10 mg tablet 06-21 00:00: 00 Yes 1mg Tr F Jimmie hydrochloro thiazide 25 mg tablet 06-21 00:00: 00 Yes 1mg Tr Samuel lisinopril 40 mg tablet 06-21 00:00: 00 Yes 1mg Tr Samuel Dose Unknown 06-21 00:00: 00 Yes Tr Samuel Dose Unknown 06-21 00:00: 00 Yes Tr Samuel Symbicort 160 mcg-4.5 mcg/actuati on HFA aerosol inhaler 06-21 00:00: 00 No 2mcg/ac tuation ProAir HFA 90 mcg/actuati on aerosol inhaler 06-21 00:00: 00 No 12mcg/a ctuatio n loratadine 10 mg tablet 06-21 00:00: 00 No 1mg amlodipine 10 mg tablet 06-21 00:00: 00 No 1mg hydrochloro thiazide 25 mg tablet 06-21 00:00: 00 No 1mg lisinopril 40 mg tablet 06-21 00:00: 00 No 1mg ipratropium 0.5 mg-albutero l 3 mg (2.5 mg base)/3 mL nebulizatio n soln 06-21 00:00: 00 No 3mg base)/3 mL INHALE 2 PUFFS TWICE DAILY. RINSE MOUTH AFTER USE. 06-21 00:00: 00 No ProAir HFA 90 mcg/actuati on aerosol inhaler 06-21 00:00: 00 No 12mcg/a ctuatio n loratadine 10 mg tablet 06-21 00:00: 00 No 1mg Dose Unknown 06-21 00:00: 00 No hydrochloro thiazide 25 mg tablet 06-21 00:00: 00 No 1mg lisinopril 40 mg tablet 06-21 00:00: 00 No 1mg ipratropium 0.5 mg-albutero l 3 mg (2.5 mg base)/3 mL nebulizatio n soln 06-21 00:00: 00 No 3mg base)/3 mL INHALE 2 PUFFS TWICE DAILY. RINSE MOUTH AFTER USE. 06-21 00:00: 00 No Dose Unknown 06-21 00:00: 00 No loratadine 10 mg tablet 06-21 00:00: 00 No 1mg hydrochloro thiazide 25 mg tablet 06-21 00:00: 00 No 1mg lisinopril 40 mg tablet 06-21 00:00: 00 No 1mg Dose Unknown 06-21 00:00: 00 No Dose Unknown 06-21 00:00: 00 No Symbicort 160 mcg-4.5 mcg/actuati on HFA aerosol inhaler 06-21 00:00: 00 No 2mcg/ac tuation ProAir HFA 90 mcg/actuati on aerosol inhaler 06-21 00:00: 00 No 12mcg/a ctuatio n loratadine 10 mg tablet 06-21 00:00: 00 No 1mg amlodipine 10 mg tablet 06-21 00:00: 00 No 1mg hydrochloro thiazide 25 mg tablet 06-21 00:00: 00 No 1mg lisinopril 40 mg tablet 06-21 00:00: 00 No 1mg ipratropium 0.5 mg-albutero l 3 mg (2.5 mg base)/3 mL nebulizatio n soln 06-21 00:00: 00 No 3mg base)/3 mL INHALE 2 PUFFS TWICE DAILY. RINSE MOUTH AFTER USE. 06-21 00:00: 00 No Dose Unknown 06-21 00:00: 00 No loratadine 10 mg tablet 06-21 00:00: 00 No 1mg hydrochloro thiazide 25 mg tablet 06-21 00:00: 00 No 1mg lisinopril 40 mg tablet 06-21 00:00: 00 No 1mg Dose Unknown 06-21 00:00: 00 No Dose Unknown 06-21 00:00: 00 No Budesonide- Formoterol Fumarate 160-4.5 MCG/ACT inhalation Aerosol 2022-0 5-09 00:00: 00 2023- 03-08 00:00 :00 No Franny Seybold - Externa l Dose Unknown 2022-0 5-07 00:00: 00 Yes Tr Samuel Dose Unknown 2022-0 5-07 00:00: 00 Yes Tr Samuel Dose Unknown 2022-0 5-07 00:00: 00 Yes Tr Samuel Dose Unknown 2022-0 5-07 00:00: 00 No Dose Unknown 2022-0 5-07 00:00: 00 No Dose Unknown 2022-0 5-07 00:00: 00 No Dose Unknown 2022-0 5-07 00:00: 00 No Dose Unknown 2022-0 5-07 00:00: 00 No Dose Unknown 2022-0 5-07 00:00: 00 No Dose Unknown 2022-0 507 00:00: 00 No Dose Unknown 2022-0 5-07 00:00: 00 No Dose Unknown 2022-0 5-07 00:00: 00 No Dose Unknown 2022-0 5-07 00:00: 00 No Dose Unknown 2022-0 507 00:00: 00 No Dose Unknown 2022-0 5-07 00:00: 00 No Dose Unknown 2022-0 5-07 00:00: 00 No Dose Unknown 2022-0 5-07 00:00: 00 No Dose Unknown 2022-0 507 00:00: 00 No Dose Unknown 2022-0 -06 00:00: 00 Yes Tr Samuel Dose Unknown 2022-0 5-06 00:00: 00 Yes Tr Samuel Dose Unknown 2022-0 -06 00:00: 00 Yes Tr Samuel Dose Unknown 2022-0 5-06 00:00: 00 Yes Tr Samuel Dose Unknown 2022-0 5-06 00:00: 00 Yes Tr Samuel Dose Unknown 2022-0 5-06 00:00: 00 No Dose Unknown 2022-0 5-06 00:00: 00 No Dose Unknown 2022-0 5-06 00:00: 00 No Dose Unknown 2022-0 5-06 00:00: 00 No Dose Unknown 2022-0 5-06 00:00: 00 No Dose Unknown 2022-0 5-06 00:00: 00 No Dose Unknown 2022-0 5-06 00:00: 00 No Dose Unknown 2022-0 5-06 00:00: 00 No Dose Unknown 2022-0 5-06 00:00: 00 No Dose Unknown 2022-0 5-06 00:00: 00 No Dose Unknown 2022-0 5-06 00:00: 00 No Dose Unknown 2022-0 5-06 00:00: 00 No Dose Unknown 2022-0 5-06 00:00: 00 No Dose Unknown 2022-0 5-06 00:00: 00 No Dose Unknown 2022-0 5-06 00:00: 00 No Dose Unknown 2022-0 5-06 00:00: 00 No Dose Unknown 2022-0 5-06 00:00: 00 No Dose Unknown 2022-0 -06 00:00: 00 No Dose Unknown 2022-0 06 00:00: 00 No Dose Unknown 2022-0 -06 00:00: 00 No Dose Unknown 2022-0 -06 00:00: 00 No Dose Unknown 2022-0 -06 00:00: 00 No Dose Unknown 2022-0 06 00:00: 00 No Dose Unknown 2022-0 06 00:00: 00 No Dose Unknown 2022-0 -06 00:00: 00 No Symbicort 160 mcg-4.5 mcg/actuati on HFA aerosol inhaler 2 00:00: 00 Yes 2mcg/ac tuation Tr [facility] ProAir HFA 90 mcg/actuati on aerosol inhaler 2 00:00: 00 Yes 12mcg/a ctuatio n Tr [facility] lisinopril 40 mg tablet 2- 00:00: 00 Yes 1mg [facility] hydrochloro thiazide 25 mg tablet 2- 00:00: 00 Yes 1mg [facility] amlodipine 10 mg tablet 2- 00:00: 00 Yes 1mg Tr [facility] methotrexat e sodium 2.5 mg tablet 2- 00:00: 00 Yes 6mg Tr [facility] prednisone 20 mg tablet 2- 00:00: 00 Yes mg Tr [facility] indomethaci n 50 mg capsule 2- 00:00: 00 Yes 1mg Tr [facility] Symbicort 160 mcg-4.5 mcg/actuati on HFA aerosol inhaler 2- 00:00: 00 No 2mcg/ac tuation ProAir HFA 90 mcg/actuati on aerosol inhaler 2- 00:00: 00 No 12mcg/a ctuatio n lisinopril 40 mg tablet 2- 00:00: 00 No 1mg hydrochloro thiazide 25 mg tablet 2- 00:00: 00 No 1mg amlodipine 10 mg tablet 2- 00:00: 00 No 1mg methotrexat e sodium 2.5 mg tablet 2- 00:00: 00 No 6mg prednisone 20 mg tablet 2- 00:00: 00 No mg indomethaci n 50 mg capsule 2- 00:00: 00 No 1mg Symbicort 160 mcg-4.5 mcg/actuati on HFA aerosol inhaler 2- 00:00: 00 No 2mcg/ac tuation ProAir HFA 90 mcg/actuati on aerosol inhaler 2- 00:00: 00 No 12mcg/a ctuatio n lisinopril 40 mg tablet 2- 00:00: 00 No 1mg hydrochloro thiazide 25 mg tablet 2- 00:00: 00 No 1mg amlodipine 10 mg tablet 2- 00:00: 00 No 1mg methotrexat e sodium 2.5 mg tablet 2- 00:00: 00 No 6mg prednisone 20 mg tablet 2- 00:00: 00 No mg indomethaci n 50 mg capsule 2- 00:00: 00 No 1mg Symbicort 160 mcg-4.5 mcg/actuati on HFA aerosol inhaler 2- 00:00: 00 No 2mcg/ac tuation ProAir HFA 90 mcg/actuati on aerosol inhaler 2- 00:00: 00 No 12mcg/a ctuatio n lisinopril 40 mg tablet 2- 00:00: 00 No 1mg hydrochloro thiazide 25 mg tablet 2- 00:00: 00 No 1mg amlodipine 10 mg tablet 2- 00:00: 00 No 1mg methotrexat e sodium 2.5 mg tablet 2- 00:00: 00 No 6mg prednisone 20 mg tablet 2- 00:00: 00 No mg Symbicort 160 mcg-4.5 mcg/actuati on HFA aerosol inhaler 2- 00:00: 00 No 2mcg/ac tuation ProAir HFA 90 mcg/actuati on aerosol inhaler 2- 00:00: 00 No 12mcg/a ctuatio n lisinopril 40 mg tablet 2- 00:00: 00 No 1mg hydrochloro thiazide 25 mg tablet 2- 00:00: 00 No 1mg amlodipine 10 mg tablet 2- 00:00: 00 No 1mg methotrexat e sodium 2.5 mg tablet 2- 00:00: 00 No 6mg prednisone 20 mg tablet 2- 00:00: 00 No mg indomethaci n 50 mg capsule 2- 00:00: 00 No 1mg indomethaci n 50 mg capsule 2- 00:00: 00 No 1mg Symbicort 160 mcg-4.5 mcg/actuati on HFA aerosol inhaler 2- 00:00: 00 No 2mcg/ac tuation ProAir HFA 90 mcg/actuati on aerosol inhaler 2- 00:00: 00 No 12mcg/a ctuatio n lisinopril 40 mg tablet 2- 00:00: 00 No 1mg hydrochloro thiazide 25 mg tablet 2- 00:00: 00 No 1mg amlodipine 10 mg tablet 2- 00:00: 00 No 1mg methotrexat e sodium 2.5 mg tablet 2- 00:00: 00 No 6mg prednisone 20 mg tablet 2- 00:00: 00 No mg indomethaci n 50 mg capsule 2- 00:00: 00 No 1mg Symbicort 160 mcg-4.5 mcg/actuati on HFA aerosol inhaler 2020-02 0-18 00:00: 00 Yes 2mcg/ac tuation Tr Samuel ProAir HFA 90 mcg/actuati on aerosol inhaler 2020-02 0-18 00:00: 00 Yes 1mcg/ac tuation Tr [facility] hydrochloro thiazide 25 mg tablet 2020-02 0-18 00:00: 00 Yes 1mg Tr [facility] amlodipine 10 mg tablet 2020-02 0-18 00:00: 00 Yes 1mg Tr [facility] lisinopril 20 mg tablet 2020-02 0-18 00:00: 00 Yes 1mg Tr [facility] Symbicort 160 mcg-4.5 mcg/actuati on HFA aerosol inhaler 2020-02 0-18 00:00: 00 No 2mcg/ac tuation ProAir HFA 90 mcg/actuati on aerosol inhaler 2020-02 0-18 00:00: 00 No 1mcg/ac tuation hydrochloro thiazide 25 mg tablet 2020-02 0-18 00:00: 00 No 1mg amlodipine 10 mg tablet 2020-02 0-18 00:00: 00 No 1mg lisinopril 20 mg tablet 2020-02 0-18 00:00: 00 No 1mg Symbicort 160 mcg-4.5 mcg/actuati on HFA aerosol inhaler 2020-02 0-18 00:00: 00 No 2mcg/ac tuation ProAir HFA 90 mcg/actuati on aerosol inhaler 2020-02 0-18 00:00: 00 No 1mcg/ac tuation hydrochloro thiazide 25 mg tablet 2020-02 0-18 00:00: 00 No 1mg amlodipine 10 mg tablet 2020-02 0-18 00:00: 00 No 1mg lisinopril 20 mg tablet 2020-02 0-18 00:00: 00 No 1mg Symbicort 160 mcg-4.5 mcg/actuati on HFA aerosol inhaler 2020-02 0-18 00:00: 00 No 2mcg/ac tuation ProAir HFA 90 mcg/actuati on aerosol inhaler 2020-02 0-18 00:00: 00 No 1mcg/ac tuation hydrochloro thiazide 25 mg tablet 2020-02 0-18 00:00: 00 No 1mg amlodipine 10 mg tablet 2020-02 0-18 00:00: 00 No 1mg lisinopril 20 mg tablet 2020-02 0-18 00:00: 00 No 1mg Symbicort 160 mcg-4.5 mcg/actuati on HFA aerosol inhaler 2020-02 0-18 00:00: 00 No 2mcg/ac tuation ProAir HFA 90 mcg/actuati on aerosol inhaler 2020-02 0-18 00:00: 00 No 1mcg/ac tuation hydrochloro thiazide 25 mg tablet 2020-02 0-18 00:00: 00 No 1mg amlodipine 10 mg tablet 2020-02 0-18 00:00: 00 No 1mg lisinopril 20 mg tablet 2020-02 0-18 00:00: 00 No 1mg Symbicort 160 mcg-4.5 mcg/actuati on HFA aerosol inhaler 2020-02 0-18 00:00: 00 No 2mcg/ac tuation ProAir HFA 90 mcg/actuati on aerosol inhaler 2020-02 0-18 00:00: 00 No 1mcg/ac tuation hydrochloro thiazide 25 mg tablet 2020-02 0-18 00:00: 00 No 1mg amlodipine 10 mg tablet 2020-02 0-18 00:00: 00 No 1mg lisinopril 20 mg tablet 2020-02 0-18 00:00: 00 No 1mg Symbicort 160 mcg-4.5 mcg/actuati on HFA aerosol inhaler 8- 00:00: 00 Yes 2mcg/ac tuation Tr [facility] Symbicort 160 mcg-4.5 mcg/actuati on HFA aerosol inhaler 8- 00:00: 00 No 2mcg/ac tuation Symbicort 160 mcg-4.5 mcg/actuati on HFA aerosol inhaler 8-30 00:00: 00 No 2mcg/ac tuation Symbicort 160 mcg-4.5 mcg/actuati on HFA aerosol inhaler 10-12 00:00: 00 No 2mcg/ac tuation Symbicort 160 mcg-4.5 mcg/actuati on HFA aerosol inhaler 10-12 00:00: 00 No 2mcg/ac tuation Symbicort 160 mcg-4.5 mcg/actuati on HFA aerosol inhaler 10-12 00:00: 00 No 2mcg/ac tuation Symbicort 160 mcg-4.5 mcg/actuati on HFA aerosol inhaler 10-09 00:00: 00 Yes 2mcg/ac tuation [facility] amlodipine 10 mg tablet 10-09 00:00: 00 Yes 1mg Tr [facility] hydrochloro thiazide 25 mg tablet 10-09 00:00: 00 Yes 1mg Tr [facility] Symbicort 160 mcg-4.5 mcg/actuati on HFA aerosol inhaler 10-09 00:00: 00 No 2mcg/ac tuation amlodipine 10 mg tablet 10-09 00:00: 00 No 1mg hydrochloro thiazide 25 mg tablet 10-09 00:00: 00 No 1mg Symbicort 160 mcg-4.5 mcg/actuati on HFA aerosol inhaler 10-09 00:00: 00 No 2mcg/ac tuation amlodipine 10 mg tablet 0 10-09 00:00: 00 No 1mg hydrochloro thiazide 25 mg tablet 10-09 00:00: 00 No 1mg Symbicort 160 mcg-4.5 mcg/actuati on HFA aerosol inhaler 10-09 00:00: 00 No 2mcg/ac tuation amlodipine 10 mg tablet 10-09 00:00: 00 No 1mg hydrochloro thiazide 25 mg tablet 10-09 00:00: 00 No 1mg Symbicort 160 mcg-4.5 mcg/actuati on HFA aerosol inhaler 0 10-09 00:00: 00 No 2mcg/ac tuation amlodipine 10 mg tablet 10-09 00:00: 00 No 1mg hydrochloro thiazide 25 mg tablet 10-09 00:00: 00 No 1mg Symbicort 160 mcg-4.5 mcg/actuati on HFA aerosol inhaler 10-09 00:00: 00 No 2mcg/ac tuation amlodipine 10 mg tablet 10-09 00:00: 00 No 1mg hydrochloro thiazide 25 mg tablet 10-09 00:00: 00 No 1mg loratadine 10 mg tablet 09-17 00:00: 00 No 1mg Dose Unknown 09-17 00:00: 00 No amlodipine 5 mg tablet 09-17 00:00: 00 No 1mg lisinopril 40 mg tablet 09-17 00:00: 00 No 1mg hydrochloro thiazide 12.5 mg tablet 09-17 00:00: 00 No 1mg loratadine 10 mg tablet 09-17 00:00: 00 No 1mg Dose Unknown 09-17 00:00: 00 No amlodipine 5 mg tablet 09-17 00:00: 00 Yes 1mg Tr [facility] lisinopril 40 mg tablet 09-17 00:00: 00 Yes 1mg Tr [facility] hydrochloro thiazide 12.5 mg tablet 09-17 00:00: 00 Yes 1mg Tr [facility] loratadine 10 mg tablet 09-17 00:00: 00 Yes 1mg Tr Samuel Dose Unknown 09-17 00:00: 00 Yes Tr Samuel Advair HFA 230 mcg-21 mcg/actuati on aerosol inhaler 09-17 00:00: 00 No 1mcg/ac tuation amlodipine 5 mg tablet 09-17 00:00: 00 No 1mg lisinopril 40 mg tablet 09-17 00:00: 00 No 1mg hydrochloro thiazide 12.5 mg tablet 09-17 00:00: 00 No 1mg loratadine 10 mg tablet 09-17 00:00: 00 No 1mg Dose Unknown 09-17 00:00: 00 No Advair HFA 230 mcg-21 mcg/actuati on aerosol inhaler 8 00:00: 00 No 1mcg/ac tuation amlodipine 5 mg tablet 8 00:00: 00 No 1mg lisinopril 40 mg tablet 8 00:00: 00 No 1mg hydrochloro thiazide 12.5 mg tablet 8 00:00: 00 No 1mg loratadine 10 mg tablet 8 00:00: 00 No 1mg Dose Unknown 8 00:00: 00 No Advair HFA 230 mcg-21 mcg/actuati on aerosol inhaler 8 00:00: 00 No 1mcg/ac tuation amlodipine 5 mg tablet 8 00:00: 00 No 1mg lisinopril 40 mg tablet 8 00:00: 00 No 1mg hydrochloro thiazide 12.5 mg tablet 8 00:00: 00 No 1mg loratadine 10 mg tablet 8 00:00: 00 No 1mg Dose Unknown 8 00:00: 00 No amlodipine 5 mg tablet 8 00:00: 00 No 1mg lisinopril 40 mg tablet 8 00:00: 00 No 1mg hydrochloro thiazide 12.5 mg tablet 8 00:00: 00 No 1mg amlodipine 5 mg tablet 7 00:00: 00 No 1mg amlodipine 5 mg tablet 7 00:00: 00 No 1mg amlodipine 5 mg tablet 7 00:00: 00 No 1mg amlodipine 5 mg tablet 08-25 00:00: 00 No 1mg amlodipine 5 mg tablet 08-25 00:00: 00 No 1mg amlodipine 5 mg tablet 08-25 00:00: 00 Yes 1mg Tr Samuel Advair HFA 230 mcg-21 mcg/actuati on aerosol inhaler - 00:00: 00 No 1mcg/ac tuation levofloxaci n 500 mg tablet 08-19 00:00: 00 No 1mg prednisone 20 mg tablet 08-19 00:00: 00 No mg Bromfed DM 2 mg-30 mg-10 mg/5 mL oral syrup 08-19 00:00: 00 No 5mg/5 mL ipratropium 0.5 mg-albutero l 3 mg (2.5 mg base)/3 mL nebulizatio n soln 08-19 00:00: 00 No 3mg base)/3 mL Advair HFA 230 mcg-21 mcg/actuati on aerosol inhaler 08-19 00:00: 00 No 1mcg/ac tuation levofloxaci n 500 mg tablet 08-19 00:00: 00 No 1mg prednisone 20 mg tablet 08-19 00:00: 00 No mg Bromfed DM 2 mg-30 mg-10 mg/5 mL oral syrup 08-19 00:00: 00 No 5mg/5 mL ipratropium 0.5 mg-albutero l 3 mg (2.5 mg base)/3 mL nebulizatio n soln 08-19 00:00: 00 No 3mg base)/3 mL Advair HFA 230 mcg-21 mcg/actuati on aerosol inhaler 08-19 00:00: 00 No 1mcg/ac tuation levofloxaci n 500 mg tablet 08-19 00:00: 00 No 1mg prednisone 20 mg tablet 08-19 00:00: 00 No mg Bromfed DM 2 mg-30 mg-10 mg/5 mL oral syrup 08-19 00:00: 00 No 5mg/5 mL ipratropium 0.5 mg-albutero l 3 mg (2.5 mg base)/3 mL nebulizatio n soln 08-19 00:00: 00 No 3mg base)/3 mL Advair HFA 230 mcg-21 mcg/actuati on aerosol inhaler 08-19 00:00: 00 No 1mcg/ac tuation levofloxaci n 500 mg tablet 08-19 00:00: 00 No 1mg prednisone 20 mg tablet 08-19 00:00: 00 No mg Bromfed DM 2 mg-30 mg-10 mg/5 mL oral syrup 08-19 00:00: 00 No 5mg/5 mL ipratropium 0.5 mg-albutero l 3 mg (2.5 mg base)/3 mL nebulizatio n soln 08-19 00:00: 00 No 3mg base)/3 mL Advair HFA 230 mcg-21 mcg/actuati on aerosol inhaler 08-19 00:00: 00 No 1mcg/ac tuation levofloxaci n 500 mg tablet 08-19 00:00: 00 No 1mg prednisone 20 mg tablet 08-19 00:00: 00 No mg Bromfed DM 2 mg-30 mg-10 mg/5 mL oral syrup 08-19 00:00: 00 No 5mg/5 mL ipratropium 0.5 mg-albutero l 3 mg (2.5 mg base)/3 mL nebulizatio n soln 08-19 00:00: 00 No 3mg base)/3 mL Advair HFA 230 mcg-21 mcg/actuati on aerosol inhaler 08-19 00:00: 00 Yes 1mcg/ac tuation Tr Samuel levofloxaci n 500 mg tablet 08-19 00:00: 00 Yes 1mg Tr Samuel prednisone 20 mg tablet 08-19 00:00: 00 Yes mg Tr Rafael Samuel Bromfed DM 2 mg-30 mg-10 mg/5 mL oral syrup 08-19 00:00: 00 Yes 5mg/5 mL Tr aSmuel ipratropium 0.5 mg-albutero l 3 mg (2.5 mg base)/3 mL nebulizatio n soln 08-19 00:00: 00 Yes 3mg base)/3 mL Tr Samuel loratadine 10 mg tablet 08-10 00:00: 00 No 1mg albuterol sulfate 2.5 mg/3 mL (0.083 %) solution for nebulizatio n 08-10 00:00: 00 No 3/3 mL (0.083 %) loratadine 10 mg tablet 08-10 00:00: 00 No 1mg albuterol sulfate 2.5 mg/3 mL (0.083 %) solution for nebulizatio n 08-10 00:00: 00 No 3/3 mL (0.083 %) loratadine 10 mg tablet 08-10 00:00: 00 No 1mg albuterol sulfate 2.5 mg/3 mL (0.083 %) solution for nebulizatio n 08-10 00:00: 00 No 3/3 mL (0.083 %) loratadine 10 mg tablet 08-10 00:00: 00 No 1mg albuterol sulfate 2.5 mg/3 mL (0.083 %) solution for nebulizatio n 08-10 00:00: 00 No 3/3 mL (0.083 %) loratadine 10 mg tablet 08-10 00:00: 00 No 1mg albuterol sulfate 2.5 mg/3 mL (0.083 %) solution for nebulizatio n 08-10 00:00: 00 No 3/3 mL (0.083 %) loratadine 10 mg tablet 08-10 00:00: 00 Yes 1mg Tr Samuel albuterol sulfate 2.5 mg/3 mL (0.083 %) solution for nebulizatio n 08-10 00:00: 00 Yes 3/3 mL (0.083 %) Tr [facility] methylPREDN ISolone 4 mg tablets 07-28 00:00: 00 10-01 00:00 :00 No [id number] Take by mouth SEE-INSTRU CTIONS. follow package directions [facility] methylPREDN ISolone sod succ (SOLU-MEDRO L (PF)) injection 40 mg 07-27 19:00: 00 Yes 40mg 40 mg, Intravenou s, Q8H, First dose on Mon07/27/20 at 1400, Until Discontinu ed, Routine [facility] iopamidol (ISOVUE 370-500 mL) injection 100 mL 07-27 16:30: 00 07-27 15:12 :00 No [id number] 100mL 100 mL, Intravenou s, ONCE, 1 dose, Mon07/27/20 at 1130, Routine [facility] lisinopriL (PRINIVIL,Z ESTRIL) tablet 40 mg 07-27 14:00: 00 Yes 40mg 40 mg, Oral, DAILY, First dose on Mon07/27/20 at 0900, Until Discontinu ed [facility] hydroCHLORO thiazide (ESIDRIX) capsule 12.5 mg 07-27 14:00: 00 Yes 12.5mg 12.5 mg, Oral, DAILY, First dose on Mon07/27/20 at 0900, Until Discontinu ed, Routine [facility] ipratropium -albuteroL (DUONEB) 0.5 mg-3 mg(2.5 mg base)/3 mL nebulizer solution 3 mL 07-27 13:00: 00 Yes 3mL 3 mL, Inhalation , QID, First dose on Mon07/27/20 at 0800, Until Discontinu ed, Routine [facility] enoxaparin (LOVENOX) injection 40 mg 07-27 13:00: 00 Yes 40mg 40 mg, Subcutaneo us, Q12H, First dose on Mon07/27/20 at 0800, Until Discontinu ed, Routine [facility] docusate (COLACE) capsule 100 mg 07-27 10:20: 17 Yes 100mg 100 mg, Oral, QDAILYPRN, Starting Mon07/27/20 at 0520, Until Discontinu ed, Routine, Constipati on [facility] HYDROcodone -acetaminop hen (NORCO 5) 5-325 mg tablet 1 tablet 07-27 10:20: 07 07-29 10:19 :07 No 1{tbl} 1 tablet, Oral, Q6HPRN, Starting Mon07/27/20 at 0520, Until Mon07/29/20 at 0519, Routine, Pain (scale 4-6) [facility] acetaminoph en (TYLENOL) tablet 650 mg 07-27 10:19: 59 Yes 650mg 650 mg, Oral, Q6HPRN, Starting Mon07/27/20 at 0519, Until Discontinu ed, Routine, Pain (scale 1-3), Temp > 38.5 C [facility] albuterol (PROVENTIL) 2.5 mg /3 mL (0.083 %) nebulizer solution 5 mg 07-27 08:30: 00 07-27 08:41 :00 No 5mg 5 mg, Inhalation , ONCE, 1 dose, Mon07/27/20 at 0330, STAT [facility] albuterol (PROVENTIL) 2.5 mg /3 mL (0.083 %) nebulizer solution 5 mg 07-27 07:15: 00 07-27 07:13 :00 No 5mg 5 mg, Inhalation , ONCE, 1 dose, Mon07/27/20 at 0215, STAT [facility] magnesium sulfate in water 2 gram/50 mL (4 %) infusion 2 g 07-27 07:15: 00 07-27 07:15 :00 No 2g 2 g, IV Piggyback, ONCE, 1 dose, Mon07/27/20 at 0215, Routine [facility] methylpredn isolone sod succ (SOLU-MEDRO L) injection 125 mg 07-27 07:15: 00 07-27 06:08 :00 No 125mg 125 mg, IV Piggyback, ONCE, 1 dose, Mon07/27/20 at 0215, STAT [facility] ipratropium (ATROVENT) 0.02 % nebulizer solution 0.5 mg 07-27 06:15: 00 07-27 06:06 :00 No .5mg 0.5 mg, Inhalation , ONCE, 1 dose, Mon07/27/20 at 0115, [facility] albuterol (PROVENTIL) 2.5 mg /3 mL (0.083 %) nebulizer solution 7.5 mg 07-27 06:15: 00 07-27 06:06 :00 No 7.5mg 7.5 mg, Inhalation , ONCE, 1 dose, 07/27/20 at 0115, STAT [facility] predniSONE 20 mg tablet 07-15 00:00: 00 07-20 04:59 :00 No [id number] 40mg Take 2 tablets by mouth daily for 4 days. [facility] levoFLOXaci n (LEVAQUIN) tablet 750 mg 07-14 16:45: 00 Yes 750mg 750 mg, Oral, Q24H ABX, First dose on Mon07/14/20 at 1145, Until Discontinu ed, LOGAN
Re ason for Anti-Infec tive: Documented Infection< br>Documen romero Infection Site: Respirator y
Durat ion of Therapy: 7 days [facility] predniSONE 20 mg tablet 07-14 15:41: 01 07-14 00:00 :00 No 20mg Take 20 mg by mouth daily. [facility] albuterol sulfate (PROAIR DIGIHALER) 90 mcg/actuati on aebs 07-14 15:35: 54 07-14 00:00 :00 No Inhale. [facility] azithromyci n (ZITHROMAX) 1 gram powder 07-14 15:35: 54 07-14 00:00 :00 No 1{packe t} Take 1 Packet by mouth once now. [facility] azithromyci n (ZITHROMAX) 500 mg tablet 07-14 15:35: 54 07-14 00:00 :00 No 500mg Take 500 mg by mouth daily. [facility] predniSONE (DELTASONE) tablet 40 mg 07-14 14:00: 00 Yes 40mg 40 mg, Oral, DAILY, First dose on Mon07/14/20 at 0900, Until Discontinu ed, Routine [facility] Sliding Scale Insulin - Lispro (HumaLOG) + Fsbg Testing 07-14 02:00: 00 Yes Subcutaneo us, TID MEALS+HS, First dose on Mon07/13/20 at 2100, Until Discontinu ed, Routine [facility] albuterol 90 mcg/actuati on inhaler 07-14 00:00: 00 Yes [id number] 2{puff} Inhale 2 Puffs every 4 (four) hours as needed for Wheezing or Shortness of Breath. [facility] levoFLOXaci n 750 mg tablet 07-14 00:00: 00 10-01 00:00 :00 No [id number] 750mg Take 1 tablet by mouth every 24 (twenty-fo ur) hours. [facility] lisinopriL 40 mg tablet 07-14 00:00: 00 08-14 04:59 :00 No [id number] 40mg Take 1 tablet by mouth daily for 30 days. [facility] hydroCHLORO thiazide 12.5 mg capsule 07-14 00:00: 00 08-14 04:59 :00 No [id number] 12.5mg Take 1 capsule by mouth daily for 30 days. [facility] glucagon (GLUCAGEN DIAGNOSTIC KIT) injection 1 mg 07-13 23:16: 28 Yes 1mg 1 mg, Intramuscu lar, PRN, Starting Mon07/13/20 at 1816, Until Discontinu ed, LOGAN, Blood Glucose < or = 70 mg/dL and patient is unable to swallow or has mental changes. [facility] dextrose 50 % in water (D50W) injection 25 mL 07-13 23:16: 28 Yes 25mL 25 mL, Slow IV Push, PRN, Starting Mon07/13/20 at 1816, Until Discontinu ed, LOGAN, Blood Glucose < or = 70 mg/dL and patient is unable to swallow or has mental status changes. [facility] lisinopriL (PRINIVIL,Z ESTRIL) tablet 20 mg 07-12 14:00: 00 Yes 20mg 20 mg, Oral, DAILY, First dose (after last modificati on) on 07/12/20 at 0900, Until Discontinu ed, [facility] furosem[facility] (LASIX[facility] 20 mg 07-12 01:00: 00 07-12 02:08 :00 No 20mg 20 mg, Slow IV Push, ONCE, 1 dose, 07/11/20 at 2000, [facility] zolpidem (AMBIEN) tablet 5 mg 07-11 23:15: 57 Yes 5mg 5 mg, Oral, QHSPRN, Starting 07/11/20 at 1815, Until Discontinu ed, Routine, Insomnia [facility] amLODIPine (NORVASC) tablet 10 mg 07-11 21:00: 00 Yes 10mg 10 mg, Oral, DAILY, First dose on 07/11/20 at 1600, Until Discontinu ed, Routine [facility] methylpredn isolone sod succ (SOLU-MEDRO L) injection 60 mg 07-11 17:30: 00 07-13 23:16 :03 No 60mg 60 mg, Slow IV Push, Q6H, First dose on 07/11/20 at 1230, Until Discontinu ed, Routine [facility] albuterol (PROVENTIL) 2.5 mg /3 mL (0.083 %) nebulizer solution 2.5 mg 07-11 17:04: 47 Yes 2.5mg 2.5 mg, Inhalation , Q2HPRN, Starting 07/11/20 at 1204, Until Discontinu ed, Routine, Shortness of Breath, Wheezing [facility] enoxaparin (LOVENOX) injection 40 mg 07-09 22:00: 00 Yes 40mg 40 mg, Subcutaneo us, DAILY, First dose on Astrid 07/09/20 at 1700, Until Discontinu ed, [facility] lisinopriL (PRINIVIL,Z ESTRIL) tablet 10 mg 07-09 14:00: 07-11 20:46 :45 No 10mg 10 mg, Oral, DAILY, First dose on Astrid 07/09/20 at 0900, Until Discontinu ed, Routine [facility] predniSONE (DELTASONE) tablet 50 mg 07-09 14:00: 00 07-10 23:57 :50 No 50mg 50 mg, Oral, DAILY, First dose on Astrid 07/09/20 at 0900, Until Discontinu ed, Routine [facility] NaCl 0.9% (NS) IV infusion 1,000 mL 07-09 13:30: 00 Yes 1000mL at 50 mL/hr, IV Infusion, CONTINUOUS , Starting Astrid 07/09/20 at 0830, Until Discontinu ed, Routine [facility] docusate (COLACE) capsule 100 mg 07-09 13:00: 00 Yes 100mg 100 mg, Oral, BID, First dose on Astrid 07/09/20 at 0800, Until Discontinu ed, Routine [facility] ipratropium -albuteroL (DUONEB) 0.5 mg-3 mg(2.5 mg base)/3 mL nebulizer solution 3 mL 07-09 13:00: 00 07-09 08:57 :36 No 3mL 3 mL, Inhalation , QID, First dose on Mon07/09/20 at 0800, Until Discontinu ed, Routine [facility] piperacilli n-tazobacta m (ZOSYN) 3.375 g in NaCl 0.9% (NS) 100 mL MINI-BAG 07-09 10:00: 00 07-14 15:26 :41 No 3.375g 3.375 g, IV Piggyback, Q6H ABX, First dose on Mon07/09/20 at 0500, Until Discontinu ed, 100 mL
Reas on for Anti-Infec tive: Empiric Therapy for Suspected Infection< br>Empiric Therapy Site: Respirator y
Durat ion of therapy: 7 days [facility] ondansetron (ZOFRAN (PF)) injection 4 mg 07-09 09:03: 54 Yes 4mg 4 mg, Slow IV Push, Q6HPRN, Starting Astrid 07/09/20 at 0403, Until Discontinu ed, Routine, Nausea and Vomiting (N/V) [facility] budesonide (PULMICORT RESPULE) nebulizer solution 0.5 mg 07-09 09:00: 00 Yes .5mg 0.5 mg, Inhalation , BID, First dose on Astrid 07/09/20 at 0400, Until Discontinu ed, Routine
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 approving [facility] -al[facility]L (DUONEB) 0.5 mg-3 mg(2.5 mg base)/3 mL nebulizer solution 3 mL 07-09 09:00: 00 Yes 3mL 3 mL, Inhalation , Q4H, First dose (after last modificati on) on [facility] 07/09/20 at 0400, Until Discontinu ed, Routine [facility] albuterol (PROVENTIL) 2.5 mg /3 mL (0.083 %) nebulizer solution 2.5 mg 07-09 09:00: 00 07-09 07:56 :00 No 2.5mg 2.5 mg, Inhalation , ONCE, 1 dose, [facility] 07/09/20 at 0400, STAT [facility] magnesium sulfate in water 2 gram/50 mL (4 %) infusion 2 g 07-09 06:45: 00 07-09 06:25 :00 No 2g 2 g, IV Piggyback, ONCE, 1 dose, [facility] 07/09/20 at 0145, Routine [facility] methylpredn isolone sod succ (SOLU-MEDRO L) injection 125 mg 07-09 06:45: 00 07-09 05:31 :00 No 125mg 125 mg, IV Piggyback, ONCE, 1 dose, [facility] 07/09/20 at 0145, STAT [facility] levoFLOXaci n in D5W (LEVAQUIN) 750 mg/150 mL Piggyback 750 mg 07-09 06:30: 00 07-09 08:02 :00 No 750mg 750 mg, IV Piggyback, Administer over 90 Minutes, ONCE, 1 dose, [facility] 07/09/20 at 0130, [facility]
Re ason for Anti-Infec tive: Empiric Therapy for Suspected Infection< br>Empiric Therapy Site: Respirator y
Durat ion of therapy: 72 hours [facility] ProAir HFA 90 mcg/actuati on aerosol inhaler 06-30 00:00: 00 No 1mcg/ac tuation lisinopril 40 mg tablet 06-30 00:00: 00 No 1mg hydrochloro thiazide 12.5 mg tablet 06-30 00:00: 00 No 1mg naproxen 500 mg tablet 06-30 00:00: 00 No 1mg ProAir HFA 90 mcg/actuati on aerosol inhaler 06-30 00:00: 00 No 1mcg/ac tuation lisinopril 40 mg tablet 06-30 00:00: 00 No 1mg hydrochloro thiazide 12.5 mg tablet 06-30 00:00: 00 No 1mg naproxen 500 mg tablet 06-30 00:00: 00 No 1mg ProAir HFA 90 mcg/actuati on aerosol inhaler 06-30 00:00: 00 No 1mcg/ac tuation lisinopril 40 mg tablet 06-30 00:00: 00 No 1mg hydrochloro thiazide 12.5 mg tablet 06-30 00:00: 00 No 1mg naproxen 500 mg tablet 06-30 00:00: 00 No 1mg ProAir HFA 90 mcg/actuati on aerosol inhaler 06-30 00:00: 00 No 1mcg/ac tuation lisinopril 40 mg tablet 06-30 00:00: 00 No 1mg hydrochloro thiazide 12.5 mg tablet 06-30 00:00: 00 No 1mg naproxen 500 mg tablet 06-30 00:00: 00 No 1mg ProAir HFA 90 mcg/actuati on aerosol inhaler 06-30 00:00: 00 No 1mcg/ac tuation lisinopril 40 mg tablet 06-30 00:00: 00 No 1mg hydrochloro thiazide 12.5 mg tablet 06-30 00:00: 00 No 1mg naproxen 500 mg tablet 06-30 00:00: 00 No 1mg ProAir HFA 90 mcg/actuati on aerosol inhaler 06-30 00:00: 00 Yes 1mcg/ac tuation [facility] lisinopril 40 mg tablet 06-30 00:00: 00 Yes 1mg [facility] hydrochloro thiazide 12.5 mg tablet 06-30 00:00: 00 Yes 1mg [facility] naproxen 500 mg tablet 06-30 00:00: 00 Yes 1mg Tr Samuel lisinopril 20 mg-hydrochl orothiazide 12.5 mg tablet 0 06-03 00:00: 00 No 2mg naproxen 500 mg tablet 06-03 00:00: 00 No 1mg methotrexat e sodium 2.5 mg tablet 0 - 00:00: 00 No 3mg lisinopril 20 mg-hydrochl orothiazide 12.5 mg tablet 0 06-03 00:00: 00 No 2mg naproxen 500 mg tablet 0 06-03 00:00: 00 No 1mg methotrexat e sodium 2.5 mg tablet 0 - 00:00: 00 No 3mg lisinopril 20 mg-hydrochl orothiazide 12.5 mg tablet 0 06-03 00:00: 00 No 2mg naproxen 500 mg tablet 0 - 00:00: 00 No 1mg methotrexat e sodium 2.5 mg tablet 0 - 00:00: 00 No 3mg lisinopril 20 mg-hydrochl orothiazide 12.5 mg tablet 06-03 00:00: 00 No 2mg naproxen 500 mg tablet 0 - 00:00: 00 No 1mg methotrexat e sodium 2.5 mg tablet 06-03 00:00: 00 No 3mg lisinopril 20 mg-hydrochl orothiazide 12.5 mg tablet 06-03 00:00: 00 No 2mg naproxen 500 mg tablet 06-03 00:00: 00 No 1mg methotrexat e sodium 2.5 mg tablet 06-03 00:00: 00 No 3mg lisinopril 20 mg-hydrochl orothiazide 12.5 mg tablet 06-03 00:00: 00 Yes 2mg Tr Samuel naproxen 500 mg tablet 06-03 00:00: 00 Yes 1mg Tr Samuel methotrexat e sodium 2.5 mg tablet 06-03 00:00: 00 Yes 3mg Tr Samuel lisinopril 20 mg-hydrochl orothiazide 12.5 mg tablet 2018-02 2 00:00: 00 No 2mg lisinopril 20 mg-hydrochl orothiazide 12.5 mg tablet 2018-02 2- 00:00: 00 No 2mg lisinopril 20 mg-hydrochl orothiazide 12.5 mg tablet 2018-02 2 00:00: 00 No 2mg lisinopril 20 mg-hydrochl orothiazide 12.5 mg tablet 2018-02 2 00:00: 00 No 2mg lisinopril 20 mg-hydrochl orothiazide 12.5 mg tablet 2018-02 2 00:00: 00 No 2mg lisinopril 20 mg-hydrochl orothiazide 12.5 mg tablet 2018-02 2 00:00: 00 Yes 2mg Tr Samuel lisinopril 20 mg-hydrochl orothiazide 12.5 mg tablet 09-12 00:00: 00 No 2mg naproxen 500 mg tablet 09-12 00:00: 00 No 1mg methotrexat e sodium 2.5 mg tablet 09-12 00:00: 00 No 3mg prednisone 20 mg tablet 09-12 00:00: 00 No mg lisinopril 20 mg-hydrochl orothiazide 12.5 mg tablet 09-12 00:00: 00 No 2mg naproxen 500 mg tablet 09-12 00:00: 00 No 1mg methotrexat e sodium 2.5 mg tablet 09-12 00:00: 00 No 3mg prednisone 20 mg tablet 09-12 00:00: 00 No mg lisinopril 20 mg-hydrochl orothiazide 12.5 mg tablet 09-12 00:00: 00 No 2mg naproxen 500 mg tablet 09-12 00:00: 00 No 1mg methotrexat e sodium 2.5 mg tablet 09-12 00:00: 00 No 3mg prednisone 20 mg tablet 09-12 00:00: 00 No mg lisinopril 20 mg-hydrochl orothiazide 12.5 mg tablet 09-12 00:00: 00 No 2mg naproxen 500 mg tablet 09-12 00:00: 00 No 1mg methotrexat e sodium 2.5 mg tablet 09-12 00:00: 00 No 3mg prednisone 20 mg tablet 09-12 00:00: 00 No mg lisinopril 20 mg-hydrochl orothiazide 12.5 mg tablet 09-12 00:00: 00 No 2mg naproxen 500 mg tablet 09-12 00:00: 00 No 1mg methotrexat e sodium 2.5 mg tablet 09-12 00:00: 00 No 3mg prednisone 20 mg tablet 09-12 00:00: 00 No mg lisinopril 20 mg-hydrochl orothiazide 12.5 mg tablet 09-12 00:00: 00 Yes 2mg Tr Samuel naproxen 500 mg tablet 09-12 00:00: 00 Yes 1mg Tr Samuel methotrexat e sodium 2.5 mg tablet 09-12 00:00: 00 Yes 3mg Tr Samuel prednisone 20 mg tablet 09-12 00:00: 00 Yes mg Tr Samuel azithromyci n 250 mg tablet 06-19 00:00: 00 No 2mg lisinopril 20 mg-hydrochl orothiazide 12.5 mg tablet 06-19 00:00: 00 No 2mg prednisone 20 mg tablet 06-19 00:00: 00 No mg azithromyci n 250 mg tablet 06-19 00:00: 00 No 2mg lisinopril 20 mg-hydrochl orothiazide 12.5 mg tablet 06-19 00:00: 00 No 2mg prednisone 20 mg tablet 06-19 00:00: 00 No mg azithromyci n 250 mg tablet 06-19 00:00: 00 No 2mg lisinopril 20 mg-hydrochl orothiazide 12.5 mg tablet 06-19 00:00: 00 No 2mg prednisone 20 mg tablet 06-19 00:00: 00 No mg azithromyci n 250 mg tablet 06-19 00:00: 00 No 2mg lisinopril 20 mg-hydrochl orothiazide 12.5 mg tablet 06-19 00:00: 00 No 2mg prednisone 20 mg tablet 06-19 00:00: 00 No mg azithromyci n 250 mg tablet 06-19 00:00: 00 No 2mg lisinopril 20 mg-hydrochl orothiazide 12.5 mg tablet 06-19 00:00: 00 No 2mg prednisone 20 mg tablet 06-19 00:00: 00 No mg azithromyci n 250 mg tablet 06-19 00:00: 00 Yes 2mg Tr Samuel lisinopril 20 mg-hydrochl orothiazide 12.5 mg tablet 06-19 00:00: 00 Yes 2mg Tr Samuel prednisone 20 mg tablet 06-19 00:00: 00 Yes mg Tr Samuel methotrexat e sodium 2.5 mg tablet 2016-02 00:00: 00 No 3mg methotrexat e sodium 2.5 mg tablet 2016-02 00:00: 00 No 3mg methotrexat e sodium 2.5 mg tablet 2016-02 00:00: 00 No 3mg methotrexat e sodium 2.5 mg tablet 2016-02 00:00: 00 No 3mg methotrexat e sodium 2.5 mg tablet 2016-02 00:00: 00 No 3mg methotrexat e sodium 2.5 mg tablet 2016-02 00:00: 00 Yes 3mg Tr Rafael Jimmie lisinopril 20 mg-hydrochl orothiazide 12.5 mg tablet 2016-02 00:00: 00 No 2mg prednisone 20 mg tablet 2016-02 00:00: 00 No 1mg naproxen 500 mg tablet 2016-02 00:00: 00 No 1mg Vitamin D2 50,000 unit capsule 2016-02 00:00: 00 No 1unit lisinopril 20 mg-hydrochl orothiazide 12.5 mg tablet 2016-02 00:00: 00 No 2mg prednisone 20 mg tablet 2016-02 00:00: 00 No 1mg naproxen 500 mg tablet 2016-02 00:00: 00 No 1mg Vitamin D2 50,000 unit capsule 2016-02 00:00: 00 No 1unit lisinopril 20 mg-hydrochl orothiazide 12.5 mg tablet 2016-02 00:00: 00 No 2mg prednisone 20 mg tablet 2016-02 00:00: 00 No 1mg naproxen 500 mg tablet 2016-02 00:00: 00 No 1mg Vitamin D2 50,000 unit capsule 2016-02 00:00: 00 No 1unit lisinopril 20 mg-hydrochl orothiazide 12.5 mg tablet 2016-02 00:00: 00 No 2mg prednisone 20 mg tablet 2016-02 00:00: 00 No 1mg naproxen 500 mg tablet 2016-02 00:00: 00 No 1mg Vitamin D2 50,000 unit capsule 2016-02 00:00: 00 No 1unit lisinopril 20 mg-hydrochl orothiazide 12.5 mg tablet 2016-02 00:00: 00 No 2mg prednisone 20 mg tablet 2016-02 00:00: 00 No 1mg naproxen 500 mg tablet 2016-02 00:00: 00 No 1mg Vitamin D2 50,000 unit capsule 2016-02 00:00: 00 No 1unit lisinopril 20 mg-hydrochl orothiazide 12.5 mg tablet 2016-02 00:00: 00 Yes 2mg Tr F Jimmie prednisone 20 mg tablet 2016-02 00:00: 00 Yes 1mg Tr Sameul naproxen 500 mg tablet 2016-02 00:00: 00 Yes 1mg Tr Samuel Vitamin D2 50,000 unit capsule 2016-02 00:00: 00 Yes 1unit Tr Samuel Vitamin D2 50,000 unit capsule 2016-02 00:00: 00 No 1unit Vitamin D2 50,000 unit capsule 2016-02 00:00: 00 No 1unit Vitamin D2 50,000 unit capsule 2016-02 00:00: 00 No 1unit Vitamin D2 50,000 unit capsule 2016-02 00:00: 00 No 1unit Vitamin D2 50,000 unit capsule 2016-02 00:00: 00 No 1unit Vitamin D2 50,000 unit capsule 2016-02 00:00: 00 Yes 1unit Tr Samuel prednisone 20 mg tablet 2016-02 00:00: 00 No 2mg prednisone 20 mg tablet 2016-02 00:00: 00 No 1mg lisinopril 20 mg-hydrochl orothiazide 12.5 mg tablet 2016-02 00:00: 00 No 2mg naproxen 500 mg tablet 2016-02 00:00: 00 No 1mg prednisone 20 mg tablet 2016-02 00:00: 00 No 2mg prednisone 20 mg tablet 2016-02 00:00: 00 No 1mg lisinopril 20 mg-hydrochl orothiazide 12.5 mg tablet 2016-02 00:00: 00 No 2mg naproxen 500 mg tablet 2016-02 00:00: 00 No 1mg prednisone 20 mg tablet 2016-02 00:00: 00 No 2mg prednisone 20 mg tablet 2016-02 00:00: 00 No 2mg prednisone 20 mg tablet 2016-02 00:00: 00 No 1mg lisinopril 20 mg-hydrochl orothiazide 12.5 mg tablet 2016-02 00:00: 00 No 2mg naproxen 500 mg tablet 2016-02 00:00: 00 No 1mg prednisone 20 mg tablet 2016-02 00:00: 00 No 1mg lisinopril 20 mg-hydrochl orothiazide 12.5 mg tablet 2016-02 00:00: 00 No 2mg prednisone 20 mg tablet 2016-02 00:00: 00 No 2mg prednisone 20 mg tablet 2016-02 00:00: 00 No 1mg lisinopril 20 mg-hydrochl orothiazide 12.5 mg tablet 2016-02 00:00: 00 No 2mg naproxen 500 mg tablet 2016-02 00:00: 00 No 1mg naproxen 500 mg tablet 2016-02 00:00: 00 No 1mg prednisone 20 mg tablet 2016-02 00:00: 00 Yes 2mg Tr Samuel lisinopril 20 mg-hydrochl orothiazide 12.5 mg tablet 2016-02 00:00: 00 Yes 2mg Trdylan Samuel naproxen 500 mg tablet 2016-02 00:00: 00 Yes 1mg Tr Samuel lisinopril 20 mg tablet 2016-02 00:00: 00 No 1mg lisinopril 20 mg tablet 2016-02 00:00: 00 No 1mg lisinopril 20 mg tablet 2016-02 00:00: 00 No 1mg lisinopril 20 mg tablet 2016-02 00:00: 00 No 1mg lisinopril 20 mg tablet 2016-02 00:00: 00 No 1mg lisinopril 20 mg tablet 2016-02 00:00: 00 Yes 1mg Tr Samuel naproxen 500 mg tablet 2016-02 00:00: 00 No 1mg naproxen 500 mg tablet 2016-02 00:00: 00 No 1mg naproxen 500 mg tablet 2016-02 00:00: 00 No 1mg naproxen 500 mg tablet 2016-02 00:00: 00 No 1mg naproxen 500 mg tablet 2016-02 00:00: 00 No 1mg naproxen 500 mg tablet 2016-02 00:00: 00 Yes 1mg Tr Rafael Jimmie amoxicillin 500 mg capsule 05-05 00:00: 00 No 1mg amoxicillin 500 mg capsule 05-05 00:00: 00 No 1mg amoxicillin 500 mg capsule 05-05 00:00: 00 No 1mg amoxicillin 500 mg capsule 05-05 00:00: 00 No 1mg amoxicillin 500 mg capsule 05-05 00:00: 00 No 1mg amoxicillin 500 mg capsule 05-05 00:00: 00 Yes 1mg Tr Samuel Immunizations Ordered Immunization Name Filled Immunization Name Date Status Comments Source TST-PPD intradermal 2017-01-02 00:00:00 Completed TST-PPD intradermal 2017-01-02 00:00:00 Completed TST-PPD intradermal 2017-01-02 00:00:00 Completed TST-PPD intradermal 2017-01-02 00:00:00 Completed TST-PPD intradermal 2017-01-02 00:00:00 Completed TST-PPD intradermal TST-PPD intradermal 00:00:00 Completed Tr Samuel TST-PPD intradermal 2017-01-02 00:00:00 Completed Franny Banuelosold - External TST-PPD intradermal 2017-01-02 00:00:00 Completed Franny Banuelosold - External TST-PPD intradermal 2017-01-02 00:00:00 Completed Franny Banuelosold - External TST-PPD intradermal 2017-01-02 00:00:00 Completed Franny Mi - External TST-PPD intradermal Unknown Completed Franny Banuelosold - External TST-PPD intradermal Unknown Completed Franny Hartleyybold - External TST-PPD intradermal Unknown Completed Franny Hartleyybmariano - External Vital Signs Vital Name Observation Time Observation Value Comments S ource Systolic blood pressure 2024-02-01 14:40:00 128 mm[Hg] Franny Banueloso ld - External Diastolic blood pressure 2024-02-01 14:40:00 82 mm[Hg] Franny Banueloso ld - External Heart rate 2024-02-01 14:40:00 84 /min Clay Mi - External Body temperature 2024-02-01 14:40:00 35.94 Madhuri Franny Mi - External Respiratory rate 2024-02-01 14:40:00 15 /min Franny Mi - External Body height 2024-02-01 14:40:00 160 cm Gloria ey Seybold - External Body weight 2024-02-01 14:40:00 138.347 kg Gloria ey Seybold - External BMI 2024-02-01 14:40:00 54.03 kg/m2 Gloria ey Seybold - External Oxygen saturation in Arterial blood by Pulse oximetry 2024-02-01 14:40:00 97 /min Franny Seybo ld - External Systolic blood pressure 2023-08-03 21:10:00 134 mm[Hg] Franny Seybo ld - External Diastolic blood pressure 2023-08-03 21:10:00 79 mm[Hg] Franny Seybo ld - External Heart rate 2023-08-03 21:10:00 102 /min Kelse y Seybold - External Body temperature 2023-08-03 21:10:00 36.44 Madhuri Franny Seybold - External Respiratory rate 2023-08-03 21:10:00 9 /min Franny Seybold - External Body height 2023-08-03 21:10:00 160 cm Gloria ey Seybold - External Body weight 2023-08-03 21:10:00 142.429 kg Gloria ey Seybold - External BMI 2023-08-03 21:10:00 55.62 kg/m2 Gloria ey Seybold - External Oxygen saturation in Arterial blood by Pulse oximetry 2023-08-03 21:10:00 99 /min Franny Seybo ld - External Systolic blood pressure 2023-02-22 15:10:00 135 mm[Hg] Franny Seybo ld - External Diastolic blood pressure 2023-02-22 15:10:00 82 mm[Hg] Franny Seybo ld - External Heart rate 2023-02-22 15:10:00 79 /min Kelse y Seybold - External Body temperature 2023-02-22 15:10:00 36.78 Madhuri Franny Seybold - External Respiratory rate 2023-02-22 15:10:00 20 /min Franny Seybold - External Body height 2023-02-22 15:10:00 160 cm Gloria ey Seybold - External Body weight 2023-02-22 15:10:00 143.337 kg Gloria ey Seybold - External BMI 2023-02-22 15:10:00 55.98 kg/m2 Gloria Mi - External Oxygen saturation in Arterial blood by Pulse oximetry 2023-02-22 15:10:00 99 /min Franny howard - External Systolic blood pressure 2022-09-08 06:00:00 142 mm[Hg] [facility] Diastolic blood pressure 2022-09-08 06:00:00 86 mm[Hg] [facility] Heart rate 2022-09-08 06:00:00 77 /min [facility] Respiratory rate 2022-09-08 06:00:00 15 /min [facility] Oxygen saturation in Arterial blood by Pulse oximetry 2022-09-08 06:00:00 96 /min [facility] Body temperature 2022-09-08 03:18:00 36.56 Madhuri [facility] Body height 2022-09-08 03:18:00 152.4 cm [facility] Body weight 2022-09-08 03:18:00 131.543 kg [facility] BMI 2022-09-08 03:18:00 56.64 kg/m2 [facility] Systolic blood pressure 2022-08-19 02:00:00 152 mm[Hg] [facility] Diastolic blood pressure 2022-08-19 02:00:00 95 mm[Hg] [facility] Heart rate 2022-08-19 02:00:00 78 /min [facility] Respiratory rate 2022-08-19 02:00:00 18 /min [facility] Oxygen saturation in Arterial blood by Pulse oximetry 2022-08-19 02:00:00 100 /min [facility] Body temperature 2022-08-18 22:36:00 37.22 Madhuri [facility] Body weight 2022-08-18 22:36:00 138.801 kg [facility] BMI 2022-08-18 22:36:00 61.80 kg/m2 [facility] Systolic blood pressure 2022-08-15 13:45:00 124 mm[Hg] Franny howard - External Diastolic blood pressure 2022-08-15 13:45:00 80 mm[Hg] Franny Hartleyybo ld - External Heart rate 2022-08-15 13:45:00 109 /min Kelse y Seybold - External Body temperature 2022-08-15 13:45:00 36.39 Madhuri Franny Seybold - External Respiratory rate 2022-08-15 13:45:00 15 /min Franny Hartleyybold - External Body height 2022-08-15 13:45:00 160 cm Gloria ey Seybold - External Body weight 2022-08-15 13:45:00 135.172 kg Gloria ey Seybold - External BMI 2022-08-15 13:45:00 52.79 kg/m2 Gloria ey Seybold - External Systolic blood pressure 2022-06-03 18:32:00 162 mm[Hg] [facility] Diastolic blood pressure 2022-06-03 18:32:00 88 mm[Hg] [facility] Heart rate 2022-06-03 18:18:00 79 /min [facility] Body [facility] 2022-06-03 18:18:00 36.56 Madhuri [facility] Respiratory rate 2022-06-03 18:18:00 18 /min [facility] Body height 2022-06-03 18:18:00 149.9 cm [facility] Body weight 2022-06-03 18:18:00 132.632 kg [facility] BMI 2022-06-03 18:18:00 59.06 kg/m2 [facility] Oxygen saturation in Arterial blood by Pulse oximetry 2022-06-03 18:18:00 96 /min [facility] Systolic blood pressure 2022-05-20 21:03:00 154 mm[Hg] Franyn Hartleyybo ld - External Diastolic blood pressure 2022-05-20 21:03:00 88 mm[Hg] Franny Hartleyybo ld - External Heart rate 2022-05-20 21:03:00 105 /min Clay y Seybold - External Body temperature 2022-05-20 21:03:00 36.56 Madhuri Franny Seybold - External Respiratory rate 2022-05-20 21:03:00 15 /min Franny Mi - External Body height 2022-05-20 21:03:00 160 cm Gloria Mi - External Body weight 2022-05-20 21:03:00 133.358 kg Gloria Mi - External BMI 2022-05-20 21:03:00 52.08 kg/m2 Gloria Mi - External Systolic blood pressure 2022-05-08 12:24:00 130 mm[Hg] [facility] Diastolic blood pressure 2022-05-08 12:24:00 61 mm[Hg] [facility] Heart rate 2022-05-08 12:24:00 71 /min [facility] Body temperature 2022-05-08 12:24:00 36.78 Madhuri [facility] Respiratory rate 2022-05-08 12:24:00 15 /min [facility] Oxygen saturation in Arterial blood by Pulse oximetry 2022-05-08 12:24:00 99 /min [facility] Body weight 2022-05-07 01:00:00 130 kg [facility] BMI 2022-05-07 01:00:00 54.15 kg/m2 [facility] Body height 2022-04-30 07:12:00 154.9 cm [facility] Systolic blood pressure 2022-05-06 12:00:00 133 mm[Hg] [facility] Diastolic blood pressure 2022-05-06 12:00:00 72 mm[Hg] [facility] Heart rate 2022-05-06 12:00:00 68 /min [facility] Respiratory rate 2022-05-06 12:00:00 13 /min [facility] Oxygen saturation in Arterial blood by Pulse oximetry 2022-05-06 12:00:00 99 /min [facility] Body temperature 2022-05-06 09:00:00 36.61 Madhuri [facility] Body weight 2022-05-06 01:00:00 128 kg [facility] BMI 2022-05-06 01:00:00 54.15 kg/m2 [facility] Body height 2022-04-30 07:12:00 154.9 cm [facility] Systolic blood pressure 2022-04-29 03:00:00 169 mm[Hg] [facility] Diastolic blood pressure 2022-04-29 03:00:00 99 mm[Hg] [facility] Heart rate 2022-04-29 03:00:00 76 /min [facility] Respiratory rate 2022-04-29 03:00:00 20 /min [facility] Oxygen saturation in Arterial blood by Pulse oximetry 2022-04-29 03:00:00 95 /min [facility] Body temperature 2022-04-29 00:10:00 36.39 Madhuri [facility] Body height 2022-04-29 00:10:00 154.9 cm [facility] Body weight 2022-04-29 00:10:00 127.007 kg [facility] BMI 2022-04-29 00:10:00 52.91 kg/m2 [facility] Systolic blood pressure 2022-04-20 15:52:00 142 mm[Hg] Franny Seybo ld - External Diastolic blood pressure 2022-04-20 15:52:00 88 mm[Hg] Franny Seybo ld - External Heart rate 2022-04-20 15:52:00 88 /min Kelse y Seybold - External Body temperature 2022-04-20 15:52:00 36.94 Madhuri Franny Seybold - External Respiratory rate 2022-04-20 15:52:00 14 /min Franny Seybold - External Body height 2022-04-20 15:52:00 160 cm Gloria ey Seybold - External Body weight 2022-04-20 15:52:00 133.811 kg Gloria ey Seybold - External BMI 2022-04-20 15:52:00 52.26 kg/m2 Gloria ey Seybold - External Oxygen saturation in Arterial blood by Pulse oximetry 2022-04-20 15:52:00 93 /min Franny Seybo ld - External Systolic blood pressure 2022-01-17 18:48:00 128 mm[Hg] [facility] Diastolic blood pressure 2022-01-17 18:48:00 69 mm[Hg] [facility] Heart rate 2022-01-17 18:48:00 72 /min [facility] Body temperature 2022-01-17 18:48:00 37.17 Madhuri [facility] Respiratory rate 2022-01-17 18:48:00 18 /min [facility] Oxygen saturation in Arterial blood by Pulse oximetry 2022-01-17 18:48:00 98 /min [facility] Body height 2022-01-14 17:49:[address] [facility] Body weight 2022-01-14 17:49:00 133.358 kg [facility] BMI 2022-01-14 17:49:00 57.42 kg/m2 [facility] Systolic blood pressure 2021-10-01 17:11:00 124 mm[Hg] [facility] Diastolic blood pressure 2021-10-01 17:11:00 73 mm[Hg] [facility] Heart rate 2021-10-01 17:11:00 86 /min [facility] Body temperature 2021-10-01 17:11:00 36.22 Madhuri [facility] Respiratory rate 2021-10-01 17:11:00 18 /min [facility] Oxygen saturation in Arterial blood by Pulse oximetry 2021-10-01 17:11:00 93 /min [facility] Body weight 2021-10-01 09:03:00 140.978 kg [facility] BMI 2021-10-01 09:03:00 56.85 kg/m2 [facility] Body height 2021-10-01 00:52:00 157.5 cm [facility] Systolic blood pressure 2021-09-09 05:57:00 124 mm[Hg] [facility] Diastolic blood pressure 2021-09-09 05:57:00 65 mm[Hg] [facility] Heart rate 2021-09-09 05:57:00 89 /min [facility] Respiratory rate 2021-09-09 05:57:00 20 /min [facility] Oxygen saturation in Arterial blood by Pulse oximetry 2021-09-09 05:57:00 95 /min [facility] Body temperature 2021-09-09 02:32:00 37.28 [facility] Body weight 2021-09-09 02:32:00 137.893 kg [facility] BMI 2021-09-09 02:32:00 55.60 kg/m2 [facility] Heart rate 2020-07-28 16:41:00 78 /min [facility] Respiratory rate 2020-07-28 16:41:00 18 /min [facility] Oxygen saturation in Arterial blood by Pulse oximetry 2020-07-28 16:41:00 90 /min [facility] Systolic blood pressure 2020-07-28 16:38:00 129 mm[Hg] [facility] Diastolic blood pressure 2020-07-28 16:38:00 69 mm[Hg] [facility] Body temperature 2020-07-28 16:38:00 36.83 [facility] Body height 2020-07-27 10:06:00 157.5 cm [facility] Body weight 2020-07-27 10:06:00 137.939 kg [facility] BMI 2020-07-27 10:06:00 55.62 kg/m2 [facility] Respiratory rate 2020-07-14 16:45:00 20 /min [facility] Oxygen saturation in Arterial blood by Pulse oximetry 2020-07-14 16:45:00 100 /min [facility] Systolic blood pressure 2020-07-14 16:10:00 140 mm[Hg] [facility] Diastolic blood pressure 2020-07-14 16:10:00 88 mm[Hg] [facility] Heart rate 2020-07-14 16:10:00 72 /min [facility] Body temperature 2020-07-14 16:10:00 36.17 [facility] Body weight 2020-07-14 08:35:00 135.489 kg [facility] BP Systolic 2024-05-03 14:17:00 180 mm[Hg] Step hen F Jimmie BP Diastolic 2024-05-03 14:17:00 109 mm[Hg] Jamison phen F Jimmie Weight Measured 2024-05-03 14:17:00 303.00 pounds Tr F Jimmie Height Measured 2024-05-03 14:17:00 59.72 inches Tr F Jimmie Body Temperature 2024-05-03 14:17:00 Tr F Jimmie Heart Rate 2024-05-03 14:17:00 89.00 /min Eileen en F Jimmie Respiratory Rate 2024-05-03 14:17:00 20.00 /min Tr F Jimmie Weight Measured 2024-04-15 16:32:00 301.40 pounds Tr F Jimmie Height Measured 2024-04-15 16:32:00 59.72 inches Tr F Jimmie Body Temperature 2024-04-15 16:32:00 97.10 degrees Tr F Jimmie Heart Rate 2024-04-15 16:32:00 87.00 /min Eileen en F Jimmie Respiratory Rate 2024-04-15 16:32:00 18.00 /min Tr F Jimmie BP Systolic 2024-04-15 16:32:00 178 mm[Hg] Step hen F Jimmie BP Diastolic 2024-04-15 16:32:00 89 mm[Hg] Jamison phen F Jimmie BP Systolic 2022-02-15 16:32:00 160 mm[Hg] Step hen F Jimmie BP Diastolic 2022-02-15 16:32:00 93 mm[Hg] Jamison phen F Jimmie Weight Measured 2022-02-15 16:32:00 288.00 pounds Tr F Jimmie Height Measured 2022-02-15 16:32:00 59.72 inches Tr F Jimmie Body Temperature 2022-02-15 16:32:00 98.40 degrees Tr F Jimmie Heart Rate 2022-02-15 16:32:00 99.00 /min Eileen en F Jimmie Respiratory Rate 2022-02-15 16:32:00 18.00 /min Tr F Jimmie BP Systolic 2022-02-01 17:29:00 163 mm[Hg] Step hen F Jimmie BP Diastolic 2022-02-01 17:29:00 90 mm[Hg] Jamison phen F Jimmie Weight Measured 2022-02-01 17:29:00 282.20 pounds Tr Samuel Height Measured 2022-02-01 17:29:00 59.72 inches Tr Samuel Body Temperature 2022-02-01 17:29:00 97.90 degrees Tr Samuel Heart Rate 2022-02-01 17:29:00 93.00 /min Eileen en F Jimmie Respiratory Rate 2022-02-01 17:29:00 Tr Samuel BP Systolic 2022-01-21 17:34:00 170 mm[Hg] Step hen Rafael Samuel BP Diastolic 2022-01-21 17:34:00 116 mm[Hg] Jamison phen Rafael Samuel Weight Measured 2022-01-21 17:34:00 280.80 pounds Tr Samuel Height Measured 2022-01-21 17:34:00 59.72 inches Tr Samuel Body Temperature 2022-01-21 17:34:00 98.10 degrees Tr Samuel Heart Rate 2022-01-21 17:34:00 83.00 /min Eileen en Rafael Samuel Respiratory Rate 2022-01-21 17:34:00 18.00 /min Tr Samuel Systolic blood pressure 2022-01-16 14:00:00 164 mm[Hg] Valders o [facility] Diastolic blood pressure 2022-01-16 14:00:00 84 mm[Hg] Valders o [facility] Heart rate 2022-01-16 14:00:00 79 /min [facility] Body temperature 2022-01-16 14:00:00 36.72 Madhuri [facility] Respiratory rate 2022-01-16 14:00:00 21 /min [facility] Oxygen saturation in Arterial blood by Pulse oximetry 2022-01-16 14:00:00 97 /min Valders o [facility] Body height 2022-01-14 17:49:00 152.4 cm [facility] Body weight 2022-01-14 17:49:00 133.358 kg [facility] BMI 2022-01-14 17:49:00 57.42 kg/m2 [facility] BP Systolic 2021-09-30 13:38:00 172 mm[Hg] Step hen Rafael [place] BP Diastolic 2021-09-30 13:38:00 105 mm[Hg] Jamison phen F Jimmie Weight Measured 2021-09-30 13:38:00 313.80 pounds Tr F Jimmie Height Measured 2021-09-30 13:38:00 59.72 inches Tr F Jimmie Body Temperature 2021-09-30 13:38:00 98.20 degrees Tr F Jimmie Heart Rate 2021-09-30 13:38:00 101.00 /min Step hen F Jimmie Respiratory Rate 2021-09-30 13:38:00 15.00 /min Tr F Jimmie BP Systolic 2021-09-23 11:25:00 Step hen F Jimmie BP Diastolic 2021-09-23 11:25:00 Jamison phen F Jimmie Weight Measured 2021-09-23 11:25:00 311.00 pounds Tr F Jimmie Height Measured 2021-09-23 11:25:00 59.72 inches Tr F Jimmie Body Temperature 2021-09-23 11:25:00 Tr F Jimmie Heart Rate 2021-09-23 11:25:00 Eileen en F Jimmie Respiratory Rate 2021-09-23 11:25:00 Tr F Jimmie BP Systolic 2021-08-18 16:46:00 163 mm[Hg] Step hen F Jimmie BP Diastolic 2021-08-18 16:46:00 85 mm[Hg] Jamison phen F Jimmie Weight Measured 2021-08-18 16:46:00 311.80 pounds Tr F Jimmie Height Measured 2021-08-18 16:46:00 59.72 inches Tr F Jimmie Body Temperature 2021-08-18 16:46:00 97.90 degrees Tr F Jimmie Heart Rate 2021-08-18 16:46:00 90.00 /min Eileen en F Jimmie Respiratory Rate 2021-08-18 16:46:00 Tr F Jimmie BP Systolic 2021-07-31 10:22:00 172 mm[Hg] Step hen F Jimmie BP Diastolic 2021-07-31 10:22:00 113 mm[Hg] Jamison phen F Jimmie Weight Measured 2021-07-31 10:22:00 311.60 pounds Tr F Jimmie Height Measured 2021-07-31 10:22:00 59.72 inches Tr F Jimmie Body Temperature 2021-07-31 10:22:00 98.00 degrees Tr F Jimmie Heart Rate 2021-07-31 10:22:00 92.00 /min Eileen en F Jimmie Respiratory Rate 2021-07-31 10:22:00 22.00 /min Tr F Jimmie BP Systolic 2021-06-24 10:24:00 179 mm[Hg] Step hen F Jimmie BP Diastolic 2021-06-24 10:24:00 108 mm[Hg] Jamison phen F Jimmie Weight Measured 2021-06-24 10:24:00 301.00 pounds Tr F Jimmie Height Measured 2021-06-24 10:24:00 59.72 inches Tr F Jimmie Body Temperature 2021-06-24 10:24:00 98.20 degrees Tr F Jimmie Heart Rate 2021-06-24 10:24:00 97.00 /min Eileen en F Jimmie Respiratory Rate 2021-06-24 10:24:00 15.00 /min Tr F Jimmie BP Systolic 2021-06-21 13:35:00 191 mm[Hg] Step hen F Jimmie BP Diastolic 2021-06-21 13:35:00 109 mm[Hg] Jamison phen F Jimmie Weight Measured 2021-06-21 13:35:00 310.40 pounds Tr Samuel Height Measured 2021-06-21 13:35:00 59.72 inches Tr Samuel Body Temperature 2021-06-21 13:35:00 98.10 degrees Tr F Jimmie Heart Rate 2021-06-21 13:35:00 100.00 /min Step hen F Jimmie Respiratory Rate 2021-06-21 13:35:00 15.00 /min Tr F Jimmie BP Systolic 2021-06-18 17:44:00 175 mm[Hg] BP [...] 2020-08-25 09:26:00 Procedures Procedure Date / Time Performed Performing Clinician Source XR CHEST 1 VW 2022-09-08 05:26:00 Renata Acosta [facility] TROPONIN I 2022-09-08 03:35:00 Renata Acosta [facility] COMP. METABOLIC PANEL (33038) 2022-09-08 03:35:00 Renata Acosta [facility] CBC WITH DIFF 2022-09-08 03:35:00 Renata Acosta [facility] N-TERMINAL PRO-BNP 2022-09-08 03:35:00 Lidia Acosta [facility] NOTICE OF PRIVACY PRACTICES 2022-09-08 02:54:03 Doctor Unassigned, [place] [facility] CONSENT/REFUSAL FOR DIAGNOSIS AND TREATMENT 2022-09-08 02:53:37 Doctor Unassigned, [place] [facility] TROPONIN I 2022-08-19 01:16:00 Alan Benjamin [facility] COMP. METABOLIC PANEL (73368) 2022-08-19 01:16:00 Alan Benjamin [facility] CBC WITH DIFF 2022-08-19 01:05:[address] [facility] URINALYSIS 2022-08-19 00:06:00 Alan Benjamin [facility] RAPID INFLUENZA A/B 2022-08-19 00:06:00 Pelon Benjamin [facility] COVID-19 (ID NOW RAPID TESTING) 2022-08-19 00:06:00 Alan Benjamin [facility] CONSENT/REFUSAL FOR DIAGNOSIS AND TREATMENT 2022-06-03 17:55:19 Doctor Unassigned, [place] [facility] POCT GLUCOSE (AUTOMATED) 2022-05-08 13:00:00 Iftikhar Grimaldo [facility] POCT GLUCOSE (AUTOMATED) 2022-05-08 01:55:00 Iftikhar Grimaldo [facility] POCT GLUCOSE (AUTOMATED) 2022-05-08 01:30:00 Iftikhar Grimaldo [facility] POCT GLUCOSE (AUTOMATED) 2022-05-07 22:10:00 Iftikhar Grimaldo [facility] POCT GLUCOSE (AUTOMATED) 2022-05-07 17:57:00 Iftikhar Grimaldo [facility] POCT GLUCOSE (AUTOMATED) 2022-05-07 17:57:00 Iftikhar Grimaldo [facility] POCT GLUCOSE (AUTOMATED) 2022-05-07 14:42:00 Iftikhar Grimaldo [facility] POCT GLUCOSE (AUTOMATED) 2022-05-07 14:42:00 Iftikhar Grimaldo [facility] CBC WITH DIFF 2022-05-07 09:52:00 Fidel Pozo [facility] CBC WITH DIFF 2022-05-07 09:52:00 Fidel Pozo [facility] CT HEAD WO CONTRAST 2022-05-07 08:55:00 Fidel Flores [facility] CT HEAD WO CONTRAST 2022-05-07 08:55:00 Fidel Flores [facility] BASIC METABOLIC PANEL (NA, K, CL, CO2, GLUCOSE, BUN, CREATININE, CA) 2022-05-07 08:01:00 Fidel Pozo [facility] BASIC METABOLIC PANEL (NA, K, CL, CO2, GLUCOSE, BUN, CREATININE, CA) 2022-05-07 08:01:00 Fidel Pozo [facility] TROPONIN I 2022-05-07 03:07:00 Fidel Pozo [facility] TROPONIN I 2022-05-07 03:07:00 Fidel Pozo [facility] POCT GLUCOSE (AUTOMATED) 2022-05-07 01:32:00 Iftikhar Grimaldo [facility] POCT GLUCOSE (AUTOMATED) 2022-05-07 01:32:00 Iftikhar Grimaldo [facility] POCT GLUCOSE (AUTOMATED) 2022-05-06 23:04:00 Iftikhar Grimaldo [facility] POCT GLUCOSE (AUTOMATED) 2022-05-06 23:04:00 Iftikhar Grimaldo [facility] POCT GLUCOSE (AUTOMATED) 2022-05-06 17:46:00 Iftikhar Grimaldo [facility] POCT GLUCOSE (AUTOMATED) 2022-05-06 17:46:00 Iftikhar Grimaldo [facility] CEREBROSPINAL FLUID SHUNT INSERTION 2022-05-06 12:08:00 oJrdan Grimaldo [facility] CEREBROSPINAL FLUID SHUNT INSERTION 2022-05-06 12:08:00 Jordan Grimaldo [facility] XR CHEST 1 VW 2022-05-06 10:37:00 Yulisa Summers [facility] XR CHEST 1 VW 2022-05-06 10:37:00 Yulisa Summers [facility] TEST, SERUM 2022-05-06 04:30:00 Roby Amos [facility] BASIC METABOLIC PANEL (NA, K, CL, CO2, GLUCOSE, BUN, CREATININE, CA) 2022-05-06 04:30:00 Roby Summers [facility] CBC WITH DIFF 2022-05-06 04:30:00 Yulisa Summers [facility] PROTHROMBIN TIME / INR 2022-05-06 04:30:00 Roby George [facility] ACTIVATED PARTIAL THRMPLAS ONEYDA 2022-05-06 04:30:00 Roby Summers [facility] HB ABO GROUPING 2022-05-06 04:30:00 [facility] 2022-05-06 04:30:00 Roby Amos [facility] BASIC METABOLIC PANEL (NA, K, CL, CO2, GLUCOSE, BUN, CREATININE, CA) 2022-05-06 04:30:00 Roby Summers [facility] CBC WITH DIFF 2022-05-06 04:30:00 Yulisa Summers [facility] PROTHROMBIN TIME / INR 2022-05-06 04:30:00 Roby George [facility] ACTIVATED PARTIAL THRMPLAS ONEYDA 2022-05-06 04:30:00 Roby Summers [facility] HB ABO GROUPING 2022-05-06 04:30:00 Yulisa Summers [facility] CT HEAD WO CONTRAST 2022-05-06 03:13:54 Roby Eddy [facility] CT HEAD WO CONTRAST 2022-05-06 03:13:54 Roby Eddy [facility] POCT GLUCOSE (AUTOMATED) 2022-05-06 01:43:00 [facility]OM[facility]) 2022-05-06 01:43:00 Iftikhar Grimaldo [facility] POCT GLUCOSE (AUTOMATED) 2022-05-05 22:24:00 Iftikhar Grimaldo [facility] POCT GLUCOSE (AUTOMATED) 2022-05-05 22:24:00 Iftikhar Grimaldo [facility] POCT GLUCOSE (AUTOMATED) 2022-05-05 17:45:00 [facility] (AUTOMATED) 2022-05-05 17:45:00 [facility] (AUTOMATED) 2022-05-05 12:42:00 Iftikhar Grimaldo [facility] POCT GLUCOSE (AUTOMATED) 2022-05-05 12:42:00 [facility] BASIC METABOLIC PANEL (NA, K, CL, CO2, GLUCOSE, BUN, CREATININE, CA) 2022-05-05 09:13:00 Fidel Pozo [facility] CBC WITH DIFF 2022-05-05 09:13:00 Fidel Pozo [facility] BASIC METABOLIC PANEL (NA, K, CL, CO2, GLUCOSE, BUN, CREATININE, CA) 2022-05-05 09:13:00 Fidel Pozo [facility] CBC WITH DIFF 2022-05-05 09:13:00 Fidel Pozo [facility] POCT GLUCOSE (AUTOMATED) 2022-05-04 21:52:00 Iftikhar Grimaldo [facility] POCT GLUCOSE (AUTOMATED) 2022-05-04 21:52:00 Iftikhar Grimaldo [facility] MR BRAIN WO CONTRAST 2022-05-04 20:35:00 Erick Laguerre [facility] MR BRAIN WO CONTRAST 2022-05-04 20:35:00 Erick Laguerre [facility] POCT GLUCOSE (AUTOMATED) 2022-05-04 16:44:00 Iftikhar Grimaldo [facility] POCT GLUCOSE (AUTOMATED) 2022-05-04 16:44:00 Iftikhar Grimaldo [facility] POCT GLUCOSE (AUTOMATED) 2022-05-04 12:49:00 Iftikhar Grimaldo [facility] POCT GLUCOSE (AUTOMATED) 2022-05-04 12:49:00 Iftikhar Grimaldo [facility] BASIC METABOLIC PANEL (NA, K, CL, CO2, GLUCOSE, BUN, CREATININE, CA) 2022-05-04 09:39:00 Jeri Conde [facility] CBC WITHOUT DIFF 2022-05-04 09:39:00 Antonia Conde [facility] BASIC METABOLIC PANEL (NA, K, CL, CO2, GLUCOSE, BUN, CREATININE, CA) 2022-05-04 09:39:00 Jeri Conde [facility] CBC WITHOUT DIFF 2022-05-04 09:39:00 Antonia Conde [facility] POCT GLUCOSE (AUTOMATED) 2022-05-04 01:57:00 Iftikhar Grimaldo [facility] POCT GLUCOSE (AUTOMATED) 2022-05-04 01:57:00 Iftikhar Grimaldo [facility] POCT GLUCOSE (AUTOMATED) 2022-05-03 21:11:00 Iftikhar Grimaldo [facility] POCT GLUCOSE (AUTOMATED) 2022-05-03 21:11:00 Iftikhar Grimaldo [facility] POCT GLUCOSE (AUTOMATED) 2022-05-03 17:03:00 Iftikhar Grimaldo [facility] POCT GLUCOSE (AUTOMATED) 2022-05-03 17:03:00 [facility]COSE (AUTOMATED) 2022-05-03 12:38:00 [facility] GLUCOSE (AUTOMATED) 2022-05-03 12:38:00 Iftikhar Grimaldo [facility] BASIC METABOLIC PANEL (NA, K, CL, CO2, GLUCOSE, BUN, CREATININE, CA) 2022-05-03 08:52:[address] [facility] CBC WITH DIFF 2022-05-03 08:52:[address] [facility] BASIC METABOLIC PANEL (NA, K, CL, CO2, GLUCOSE, BUN, CREATININE, CA) 2022-05-03 08:52:[address] [facility] CBC WITH DIFF 2022-05-03 08:52:[address] [facility] POCT GLUCOSE (AUTOMATED) 2022-05-03 02:53:00 Iftikhar Grimaldo [facility] POCT GLUCOSE (AUTOMATED) 2022-05-03 02:53:00 [facility] GLUCOSE (AUTOMATED) 2022-05-02 22:09:00 [facility]UCOSE (AUTOMATED) 2022-05-02 22:09:00 Iftikhar Grimaldo [facility] POCT GLUCOSE (AUTOMATED) 2022-05-02 17:18:00 Iftikhar Grimaldo [facility] POCT GLUCOSE (AUTOMATED) 2022-05-02 17:18:00 Iftikhar Grimaldo [facility] POCT GLUCOSE (AUTOMATED) 2022-05-02 13:30:00 [facility] PO[facility] GLUCOSE (AUTOMATED) 2022-05-02 13:30:00 Boby, [facility] BASIC METABOLIC PANEL (NA, K, CL, CO2, GLUCOSE, BUN, CREATININE, CA) 2022-05-02 10:10:00 [facility]FF 2022-05-02 10:10:00 Yulisa Summers [facility] BASIC METABOLIC PANEL (NA, K, CL, CO2, GLUCOSE, BUN, CREATININE, CA) 2022-05-02 10:10:00 [facility]FF 2022-05-02 10:10:00 Yulisa Summers [facility] POCT GLUCOSE (AUTOMATED) 2022-05-02 02:06:00 Iftikhar Grimaldo [facility] POCT GLUCOSE (AUTOMATED) 2022-05-02 02:06:00 Iftikhar Grimaldo [facility] POCT GLUCOSE (AUTOMATED) 2022-05-01 21:52:00 Iftikhar Grimaldo [facility] POCT GLUCOSE (AUTOMATED) 2022-05-01 21:52:00 Iftikhar Grimaldo [facility] POCT GLUCOSE (AUTOMATED) 2022-05-01 16:48:00 Iftikhar Grimaldo [facility] POCT GLUCOSE (AUTOMATED) 2022-05-01 16:48:00 Iftikhar Grimaldo [facility] POCT GLUCOSE (AUTOMATED) 2022-05-01 12:47:00 [facility] PO[facility] GLUCOSE (AUTOMATED) 2022-05-01 12:47:00 Iftikhar Grimaldo [facility] BASIC METABOLIC PANEL (NA, K, CL, CO2, GLUCOSE, BUN, CREATININE, CA) 2022-05-01 10:24:00 [facility]FF 2022-05-01 10:24:00 Yulisa Summers [facility] BASIC METABOLIC PANEL (NA, K, CL, CO2, GLUCOSE, BUN, CREATININE, CA) 2022-05-01 10:24:00 Roby Summers [facility] CBC WITH DIFF 2022-05-01 10:24:00 Yulisa Summers [facility] CT HEAD WO CONTRAST 2022-05-01 04:41:45 Roby Eddy [facility] CT HEAD WO CONTRAST 2022-05-01 04:41:45 Roby Eddy [facility] POCT GLUCOSE (AUTOMATED) 2022-05-01 00:25:00 Iftikhar Grimaldo [facility] POCT GLUCOSE (AUTOMATED) 2022-05-01 00:25:00 Iftikhar Grimaldo [facility] POCT GLUCOSE (AUTOMATED) 2022-04-30 21:40:00 [facility] PO[facility] GLUCOSE (AUTOMATED) 2022-04-30 21:40:00 [facility] PO[facility] GLUCOSE (AUTOMATED) 2022-04-30 17:25:00 [facility] PO[facility] GLUCOSE (AUTOMATED) 2022-04-30 17:25:00 Iftikhar Grimaldo [facility] MR CERVICAL SPINE WO CONTRAST 2022-04-30 14:45:36 Duong Wyatt [facility] MR CERVICAL SPINE WO CONTRAST 2022-04-30 14:45:36 Duong Wyatt [facility] MR BRAIN WO CONTRAST 2022-04-30 14:43:29 Roby Goins ra [facility] MR BRAIN WO CONTRAST 2022-04-30 14:43:29 Roby Goins ra [facility] POCT GLUCOSE (AUTOMATED) 2022-04-30 12:56:00 Iftikhar Grimaldo [facility] POCT GLUCOSE (AUTOMATED) 2022-04-30 12:56:00 Iftikhar Grimaldo [facility] BASIC METABOLIC PANEL (NA, K, CL, CO2, GLUCOSE, BUN, CREATININE, CA) 2022-04-30 10:09:00 [facility] WITH DIFF 2022-04-30 10:09:00 Yulisa Summers [facility] BASIC METABOLIC PANEL (NA, K, CL, CO2, GLUCOSE, BUN, CREATININE, CA) 2022-04-30 10:09:00 Roby Summers [facility] CBC WITH DIFF 2022-04-30 10:09:00 Yulisa Summers Bowbellsshellie [facility] POCT GLUCOSE (AUTOMATED) 2022-04-30 01:42:00 Carlos Brian [facility] POCT GLUCOSE (AUTOMATED) 2022-04-30 01:42:00 Carlos Brian [facility] MAGNESIUM 2022-04-29 20:35:00 Ramon Alexandra [facility] BASIC METABOLIC PANEL (NA, K, CL, CO2, GLUCOSE, BUN, CREATININE, CA) 2022-04-29 20:35:00 Ramon Alexandra [facility] MAGNESIUM 2022-04-29 20:35:00 Ramon Alexandra [facility] BASIC METABOLIC PANEL (NA, K, CL, CO2, GLUCOSE, BUN, CREATININE, CA) 2022-04-29 20:35:00 Ramon Alexandra [facility] CT HEAD WO CONTRAST 2022-04-29 15:23:00 [facility] 2022-04-29 15:23:00 Geni Wyatt [facility] EXTRA TUBE URINE CULTURE 2022-04-29 08:11:00 Carlos Brian [facility] URINALYSIS 2022-04-29 08:11:00 Ramon Alexandra [facility] EXTRA TUBE URINE CULTURE 2022-04-29 08:11:00 Carlos Brian [facility] URINALYSIS 2022-04-29 08:11:00 Ramon Alexandra [facility] COVID-19 (ID NOW RAPID TESTING) 2022-04-29 06:21:00 Ramon Alexandra [facility] LAB ONLY COVID INTERPRETATION 2022-04-29 06:21:00 Ramon Alexandra [facility] TROPONIN I 2022-04-29 06:21:00 Ramon Alexandra [facility] PROTHROMBIN TIME / INR 2022-04-29 06:21:00 Ramon zapien, [facility] ACTIVATED PARTIAL THRMPLAS ONEYDA 2022-04-29 06:21:00 Ramon Alexandra [facility] COVID-19 (ID NOW RAPID TESTING) 2022-04-29 06:21:00 Ramon Alexandra [facility] LAB ONLY COVID INTERPRETATION 2022-04-29 06:21:00 Ramon Alexandra [facility] TROPONIN I 2022-04-29 06:21:00 Ramon Alexandra [facility] PROTHROMBIN TIME / INR 2022-04-29 06:21:00 Ramon zapien, [facility] ACTIVATED PARTIAL THRMPLAS ONEYDA 2022-04-29 06:21:00 Ramon Alexandra [facility] POCT TEST 2022-04-29 00:36:00 Pelon Benjamin [facility] LIPASE 2022-04-29 00:21:00 [facility] 2022-04-29 00:21:00 [facility] TROPONIN I 2022-04-29 00:21:00 [facility] COMP. METABOLIC PANEL ([id number]) 2022-04-29 00:21:00 Singer [facility] SEDIMENTATION RATE 2022-04-29 00:21:00 Ginger Morelos [facility] CBC WITH DIFF 2022-04-29 00:21:[address] [facility] GLYCOSYLATED HEMOGLOBIN (A1C) 2022-04-29 00:21:00 Ramon Alexandra [facility] N-TERMINAL PRO-BNP 2022-04-29 00:21:00 Singer Alan [facility] TEST, SERUM 2022-04-29 00:21:00 Ramon Alexandra [facility] TEST, SERUM 2022-04-29 00:21:00 Ramon Alexandra [facility] CONSENT/REFUSAL FOR DIAGNOSIS AND TREATMENT 2022-04-28 23:54:00 Doctor Unassigned, [place] [facility] EMERGENCY SERVICES AGREEMENTS AND AUTHORIZATIONS 2022-04-28 05:01:00 Doctor Unassigned, [place] [facility] EMERGENCY SERVICES AGREEMENTS AND AUTHORIZATIONS 2022-04-28 05:01:00 Doctor Unassigned, [place] [facility] MAGNESIUM 2022-01-17 10:09:00 Zaynab [facility] BASIC METABOLIC PANEL (NA, K, CL, CO2, GLUCOSE, BUN, CREATININE, CA) 2022-01-17 10:09:00 Zaynab Zimmerman [facility] CBC WITH DIFF 2022-01-17 10:09:00 Zaynab Zimmerman [facility] BASIC METABOLIC PANEL (NA, K, CL, CO2, GLUCOSE, BUN, CREATININE, CA) 2022-01-16 14:47:00 Pamela [facility] BASIC METABOLIC PANEL (NA, K, CL, CO2, GLUCOSE, BUN, CREATININE, CA) 2022-01-16 14:47:00 Pamela [facility] CBC WITH DIFF 2022-01-16 11:23:00 Pamela [facility] CBC WITH DIFF 2022-01-16 11:23:00 Pamela [facility] POCT GLUCOSE (AUTOMATED) 2022-01-15 18:39:00 Jones Torres [facility] POCT GLUCOSE (AUTOMATED) 2022-01-15 18:39:00 Jones Torres [facility] CBC WITH DIFF 2022-01-15 11:24:00 Pamela [facility] BASIC METABOLIC PANEL (NA, K, CL, CO2, GLUCOSE, BUN, CREATININE, CA) 2022-01-15 11:24:00 Pamela [facility] BASIC METABOLIC PANEL (NA, K, CL, CO2, GLUCOSE, BUN, CREATININE, CA) 2022-01-15 11:24:00 Pamela [facility] CBC WITH DIFF 2022-01-15 11:24:[address] [facility] CT ANGIOGRAM HEAD 2022-01-15 03:24:59 [address] [facility] [address] ANGIOGRAM HEAD 2022-01-15 03:24:59 Pamela [facility] IR SPINAL LUMBAR PUNCTURE DIAGNOSTIC 2022-01-14 19:39:00 Jalil Sesay [facility] IR SPINAL LUMBAR PUNCTURE DIAGNOSTIC 2022-01-14 19:39:00 Jalil Sesay [facility] CEREBROSPINAL FLUID GLUCOSE 2022-01-14 18:55:00 Pamela [facility] CEREBROSPINAL FLUID PROTEIN 2022-01-14 18:55:00 Pamela [facility] BODY FLUID MANUAL DIFF 2022-01-14 18:55:00 Sa rosa Santiago [facility] CSF CULTURE 2022-01-14 18:55:00 Kate Santiago [facility] CEREBROSPINAL FLUID PROTEIN 2022-01-14 18:55:00 Kate Santiago [facility] CEREBROSPINAL FLUID GLUCOSE 2022-01-14 18:55:00 Pamela [facility] BODY FLUID DIRECT COUNT 2022-01-14 18:55:00 Prema Santiago [facility] CSF/GLAZE CARRIER SHUNT CULTURE 2022-01-14 18:55:00 Rj Santiago [facility] CSF CULTURE 2022-01-14 18:55:00 Kate Santiago [facility] CBC WITH DIFF 2022-01-14 11:00:[address] [facility] BASIC METABOLIC PANEL (NA, K, CL, CO2, GLUCOSE, BUN, CREATININE, CA) 2022-01-14 11:00:00 Kate Santiago [facility] MAGNESIUM 2022-01-14 11:00:00 Kate Santiago [facility] MAGNESIUM 2022-01-14 11:00:00 Kate Santiago [facility] BASIC METABOLIC PANEL (NA, K, CL, CO2, GLUCOSE, BUN, CREATININE, CA) 2022-01-14 11:00:00 Pamela [facility] CBC WITH DIFF 2022-01-14 11:00:00 Pamela [facility] BASIC METABOLIC PANEL (NA, K, CL, CO2, GLUCOSE, BUN, CREATININE, CA) 2022-01-13 12:56:00 Ovfranklin [facility] MAGNESIUM 2022-01-13 12:56:00 Ovfranklin [facility] PHOSPHORUS 2022-01-13 12:56:00 Ovfranklin [facility] PHOSPHORUS 2022-01-13 12:56:00 Ovfranklin [facility] MAGNESIUM 2022-01-13 12:56:00 Ovfranklin [facility] BASIC METABOLIC PANEL (NA, K, CL, CO2, GLUCOSE, BUN, CREATININE, CA) 2022-01-13 12:56:00 Neo [facility] CBC WITH DIFF 2022-01-13 12:55:00 Ovfrankiln [facility] CBC WITH DIFF 2022-01-13 12:55:00 Ovfranklin [facility] CBC WITH DIFF 2022-01-12 09:55:00 Arnold [facility] BASIC METABOLIC PANEL (NA, K, CL, CO2, GLUCOSE, BUN, CREATININE, CA) 2022-01-12 09:55:00 Arnold Laureano [facility] MAGNESIUM 2022-01-12 09:55:00 Arnold Laureano Uni [facility] MAGNESIUM 2022-01-12 09:55:00 Arnold Laureano [facility] BASIC METABOLIC PANEL (NA, K, CL, CO2, GLUCOSE, BUN, CREATININE, CA) 2022-01-12 09:55:00 Arnold Laureano [facility] CBC WITH DIFF 2022-01-12 09:55:00 [facility] MR BRAIN WO CONTRAST 2022-01-11 16:06:17 Frantz Laureano [facility] MR BRAIN WO CONTRAST 2022-01-11 16:06:17 Frantz Laureano [facility] PHOSPHORUS 2022-01-11 10:29:00 Arnold Laureano [facility] COVID-19 (MOLECULAR TESTING NUCLEIC ACID AMPLIFICATION) 2022-01-11 10:29:00 Arnold Laureano [facility] LAB ONLY COVID INTERPRETATION 2022-01-11 10:29:00 Arnold Laureano [facility] PHOSPHORUS 2022-01-11 10:29:00 Arnold Laureano [facility] acute hospital COVID-19 (MOLECULAR TESTING NUCLEIC ACID AMPLIFICATION) 2022-01-11 10:29:00 Arnold Laureano [facility] LAB ONLY COVID INTERPRETATION 2022-01-11 10:29:00 Arnold Laureano [facility] AC PANEL 20 + LACTIC ACID 2022-01-11 05:29:00 Mariusz Deluca [facility] AC PANEL 20 + LACTIC ACID 2022-01-11 05:29:[address] [facility] (ID NOW RAPID TESTING) 2022-01-11 04:23:00 Mariusz Deluca [facility] LAB ONLY COVID INTERPRETATION 2022-01-11 04:23:00 Mariusz Deluca [facility] COVID-19 (ID NOW RAPID TESTING) 2022-01-11 04:23:00 Mariusz Deluca [facility] LAB ONLY COVID INTERPRETATION 2022-01-11 04:23:00 Mariusz Deluca [facility] CT CHEST PULMONARY ANGIOGRAM 2022-01-11 03:22:01 Mariusz Deluca [facility] CT ANGIOGRAM HEAD 2022-01-11 03:22:01 Mariusz Deluca [facility] CT ANGIOGRAM NECK 2022-01-11 03:22:01 Mariusz Deluca [facility] CT ANGIOGRAM HEAD 2022-01-11 03:22:01 Mariusz Deluca [facility] CT ANGIOGRAM NECK 2022-01-11 03:22:01 Mariusz Deluca [facility] CT CHEST PULMONARY ANGIOGRAM 2022-01-11 03:22:01 Mariusz Deluca [facility] CT HEAD WO CONTRAST 2022-01-11 03:03:54 Andria Deluca [facility] CT HEAD WO CONTRAST 2022-01-11 03:03:54 Andria Deluca [facility] ACTIVATED PARTIAL THRMPLAS ONEYDA 2022-01-11 02:09:00 Mariusz Deluca [facility] PROTHROMBIN TIME / INR 2022-01-11 02:09:00 Mansoor Deluca [facility] PROTHROMBIN TIME / INR 2022-01-11 02:09:00 Mansoor Deluca [facility] ACTIVATED PARTIAL THRMPLAS ONEYDA 2022-01-11 02:09:00 Mariusz Deluca [facility] CBC WITH DIFF 2022-01-11 01:17:00 Mariusz Deluca [facility] COMP. METABOLIC PANEL ([id number]) 2022-01-11 01:17:00 Mariusz Deluca [facility] TROPONIN I 2022-01-11 01:17:00 Mariusz Deluca [facility] N-TERMINAL PRO-BNP 2022-01-11 01:17:00 Mariusz Deluca [facility] LIPASE 2022-01-11 01:17:00 [facility] TEST, SERUM 2022-01-11 01:17:00 Carlin Deluca [facility] LIPASE 2022-01-11 01:17:00 [facility] TEST, SERUM 2022-01-11 01:17:00 Carlin Deluca [facility] TROPONIN I 2022-01-11 01:17:00 Mariusz Deluca [facility] COMP. METABOLIC PANEL ([id number]) 2022-01-11 01:17:00 Mariusz Deluca [facility] CBC WITH DIFF 2022-01-11 01:17:00 Mariusz Deluca [facility] N-TERMINAL PRO-BNP 2022-01-11 01:17:00 Mariusz Deluca [facility] XR CHEST 1 VW 2022-01-11 01:08:26 Mariusz Deluca [facility] XR CHEST 1 VW 2022-01-11 01:08:26 Mariusz Deluca [facility] EKG-12 LEAD 2022-01-11 00:56:11 [facility] EKG-12 LEAD 2022-01-11 00:56:11 [facility] NOTICE OF PRIVACY PRACTICES 2022-01-11 00:40:55 Doctor Unassigned, [place] [facility] NOTICE OF PRIVACY PRACTICES 2022-01-11 00:40:55 Doctor Unassigned, [place] [facility] CONSENT/REFUSAL FOR DIAGNOSIS AND TREATMENT 2022-01-11 00:39:01 Doctor Unassigned, [place] [facility] CONSENT/REFUSAL FOR DIAGNOSIS AND TREATMENT 2022-01-11 00:39:01 Doctor Unassigned, [place] [facility] HOSPITAL ADMISSION 2022-01-10 06:01:00 Doctor Un assigned, [place] [facility] HOSPITAL ADMISSION 2022-01-10 06:01:00 Doctor Un assigned, [place] [facility] POCT GLUCOSE (AUTOMATED) 2021-10-01 16:44:00 Payal Ray [facility] POCT GLUCOSE (AUTOMATED) 2021-10-01 12:29:00 Payal Ray [facility] D-DIMER 2021-10-01 09:41:00 Yasmine Jin [facility] PHOSPHORUS 2021-10-01 09:35:00 [facility] MAGNESIUM 2021-10-01 09:35:00 [facility] BASIC METABOLIC PANEL (NA, K, CL, CO2, GLUCOSE, BUN, CREATININE, CA) 2021-10-01 09:35:00 Payal Ray [facility] CBC WITH DIFF 2021-10-01 09:35:00 Payal Ray [facility] POCT GLUCOSE (AUTOMATED) 2021-10-01 09:00:00 Payal Ray [facility] POCT GLUCOSE (AUTOMATED) 2021-10-01 02:34:00 Payal Ray [facility] ACUTE CARE ARTERIAL BLOOD GAS 2021-09-30 22:39:00 Jeanna Warner [facility] XR CHEST 1 VW 2021-09-30 21:13:57 Jeanna Warner [facility] COVID-19 (ID NOW RAPID TESTING) 2021-09-30 21:01:00 Jeanna Warner [facility] HB ECG ROUTINE & RHYTHM STRIP 2021-09-30 20:58:15 Jeanna Warner [facility] TROPONIN I 2021-09-30 20:48:00 Jeanna Warner [facility] COMP. METABOLIC PANEL (36043) 2021-09-30 20:48:00 Jeanna Warner [facility] CBC WITH DIFF 2021-09-30 20:48:00 Jeanna Warner [facility] GLYCOSYLATED HEMOGLOBIN (A1C) 2021-09-30 20:48:00 Mayte Addison [facility] N-TERMINAL PRO-BNP 2021-09-30 20:48:00 Jeanna Warner [facility] CONSENT/REFUSAL FOR DIAGNOSIS AND TREATMENT 2021-09-30 20:16:40 Doctor Unassigned, [place] [facility] XR CHEST 1 VW 2021-09-09 03:28:06 Renata Acosta [facility] LIPASE 2021-09-09 02:40:00 Renata Acosta [facility] TROPONIN I 2021-09-09 02:40:00 Renata Acosta [facility] COMP. METABOLIC PANEL ([id number]) 2021-09-09 02:40:00 Renata Acosta [facility] CBC WITH DIFF 2021-09-09 02:40:00 Renata Acosta [facility] NOTICE OF PRIVACY PRACTICES 2021-09-09 02:24:29 Doctor Unassigned, [place] [facility] CONSENT/REFUSAL FOR DIAGNOSIS AND TREATMENT 2021-09-09 02:24:02 Doctor Unassigned, [place] [facility] [address] Ekg W/ At Least 12 Leads W/ I r 2021-08-18 00:00:00 Tr Samuel Ekg 2020-10-09 00:00:00 Tr Samuel Ekg 2020-09-17 00:00:[address] ANGIOGRAM CHEST 2020-07-27 15:16:47 Vitaliy Eason [facility] XR CHEST 1 VW 2020-07-27 06:14:17 Tamika Vieira [facility] COVID-19 (ID NOW RAPID TESTING) 2020-07-27 06:10:00 Tamika Vieira [facility] LAB ONLY COVID INTERPRETATION 2020-07-27 06:10:00 Tamika Vieira [facility] TROPONIN I 2020-07-27 06:06:00 Tamika Vieira [facility] HEPATIC FUNCTION PANEL (99704) (ALB,T.PRO,BILI T,BU/BC,ALT,AST,ALK PHOS) 2020-07-27 06:06:00 Tamika Vieira [facility] BASIC METABOLIC PANEL (NA, K, CL, CO2, GLUCOSE, BUN, CREATININE, CA) 2020-07-27 06:06:00 Tamika Vieira [facility] CBC WITH DIFF 2020-07-27 06:06:00 Tamika Vieira [facility] NOTICE OF PRIVACY PRACTICES 2020-07-27 06:01:19 Doctor Unassigned, [place] [facility] CONSENT/REFUSAL FOR DIAGNOSIS AND TREATMENT 2020-07-27 05:59:48 Doctor Unassigned, [place] [facility] POCT GLUCOSE (AUTOMATED) 2020-07-14 12:43:00 Gisela Mendoza [facility] POCT GLUCOSE (AUTOMATED) 2020-07-14 01:36:00 Gisela Mendoza [facility] COMP. METABOLIC PANEL (44575) 2020-07-12 09:39:00 Carolynn Lopez [facility] CBC WITH DIFF 2020-07-12 09:39:00 Wallace, Mayte [facility] THORAX WO CONTRAST 2020-07-11 18:13:55 Martin Addison [facility] COMP. METABOLIC PANEL (66283) 2020-07-11 09:37:00 Misael rajinder [facility] N-TERMINAL PRO-BNP 2020-07-11 09:37:00 Carolynn Lopez [facility] FREE T3 2020-07-11 09:37:00 Mayte Addison [facility] SPUTUM CULTURE 2020-07-10 12:15:00 Misael rajinder [facility] PNEUMOCOCCAL ANTIGEN 2020-07-10 12:13:00 Mayte Addison [facility] SEDIMENTATION RATE 2020-07-10 09:29:00 Misael rajinder [facility] MAGNESIUM 2020-07-10 09:28:00 Misael [facility] TROPONIN I 2020-07-10 09:28:00 Misael [facility] COMP. METABOLIC PANEL (72072) 2020-07-10 09:28:00 Misael [facility] CBC WITH DIFF 2020-07-10 09:28:00 Misael rajinder [facility] N-TERMINAL PRO-BNP 2020-07-10 09:28:00 Misael [facility] MYCOPLASMA PNEUMONIAE ANTIBODY, IGM 2020-07-09 22:49:00 Mayte Addison [facility] TRANSTHORACIC ECHO (TTE) COMPLETE 2020-07-09 20:36:58 Jaden Medina [facility] ADC,CLC OR LCC ONLY - INFLUENZA A & B DIRECT ANTIGEN 2020-07-09 19:51:00 Erika Falcon [facility] TROPONIN I 2020-07-09 19:34:00 Misael rajinder [facility] RESPIRATORY PANEL BY PCR 2020-07-09 19:30:00 Misael [facility] URINALYSIS 2020-07-09 10:50:00 Misael [facility] LEGIONELLA URINARY ANTIGEN TST 2020-07-09 10:50:00 Mayte Addison [facility] URINE CULTURE 2020-07-09 10:50:00 Carolynn Lopez [facility] UREA NITROGEN, URINE RANDOM 2020-07-09 10:50:00 Carolynn Lopez [facility] SODIUM, URINE RANDOM 2020-07-09 10:50:00 Tanya Lopez [facility] PROTEIN CREAT RATIO URINE RANDOM 2020-07-09 10:50:00 Carolynn Lopez [facility] PHOSPHORUS 2020-07-09 09:41:00 Carolynn Lopez [facility] CREATINE KINASE 2020-07-09 09:41:00 Carolynn Lopez [facility] TROPONIN I 2020-07-09 09:41:00 Carolynn Lopez [facility] FREE T4 2020-07-09 09:41:00 Mayte Addison [facility] THYROID STIMULATING HORMONE 2020-07-09 09:41:00 Carolynn Lopez [facility] LIPID PANEL (08112)(TOTAL CHOLESTEROL, TRIGLYCERIDES, HDL) 2020-07-09 09:41:00 Carolynn Lopez [facility] PROTHROMBIN TIME / INR 2020-07-09 09:41:00 Ghanshyam Lopez [facility] N-TERMINAL PRO-BNP 2020-07-09 09:41:00 Carolynn Lopez [facility] PROCALCITONIN 2020-07-09 09:41:00 Carolynn Lopez [facility] HB ECG ROUTINE & RHYTHM STRIP 2020-07-09 09:28:10 Carolynn Lopez [facility] MAGNESIUM 2020-07-09 06:49:00 Miguel Mendoza [facility] COMP. METABOLIC PANEL (28606) 2020-07-09 06:49:00 Miguel Mendoza [facility] BLOOD CULTURE SCREEN 2020-07-09 06:32:00 Arnol Mendoza i [facility] BLOOD CULTURE SCREEN 2020-07-09 06:31:00 Arnol Mendoza i [facility] CRITICAL CARE 2020-07-09 06:04:00 [facility] CHEST 1 VW 2020-07-09 05:51:20 Miguel [facility] CBC WITH DIFF 2020-07-09 05:51:00 Miguel [facility] GLYCOSYLATED HEMOGLOBIN (A1C) 2020-07-09 05:51:00 Carolynn Lopez [facility] COVID-19 (ID NOW RAPID TESTING) 2020-07-09 05:51:00 Miguel Mendoza [facility] LAB ONLY COVID INTERPRETATION 2020-07-09 05:51:00 Miguel Mendoza [facility] [address] Ecg Routine Ecg W/least 12 Lds W/i r 2016-05-05 00:00:00 Tr Samuel Plan of Care Planned Activity Planned Date Details Comments Source Goal Plan of Care Note [code = 83310-7] Goal Plan of Care Note [code = 79594-7] Goal Plan of Care Note [code = 54240-4] Goal Plan of Care Note [code = 55204-1] Goal Plan of Care Note [code = 21930-1] Goal Plan of Care Note [code = 00153-0] Goal Plan of Care Note [code = 91638-3] Goal Plan of Care Note [code = 44916-7] Goal Plan of Care Note [code = 92130-9] Goal Plan of Care Note [code = 08925-9] Goal Plan of Care Note [code = 81027-1] Goal Plan of Care Note [code = 18070-3] Goal Plan of Care Note [code = 83241-2] Goal Plan of Care Note [code = 59283-5] Goal Plan of Care Note [code = 41197-1] Goal Plan of Care Note [code = 36427-2] Goal Plan of Care Note [code = 99954-6] Goal Plan of Care Note [code = 92103-8] Goal Plan of Care Note [code = 74769-4] Goal Plan of Care Note [code = 46931-6] Goal Plan of Care Note [code = 41905-6] Goal Plan of Care Note [code = 69456-2] Goal Plan of Care Note [code = 11804-1] Goal Plan of Care Note [code = 06729-3] Goal Plan of Care Note [code = 24405-6] Goal Plan of Care Note [code = 19537-6] Goal Plan of Care Note [code = 47223-3] Goal Plan of Care Note [code = 67329-0] Goal Plan of Care Note [code = 68888-1] Goal Plan of Care Note [code = 93672-9] Goal Plan of Care Note [code = 22847-7] Goal Plan of Care Note [code = 03252-6] Goal Plan of Care Note [code = 87844-2] Goal Plan of Care Note [code = 33489-0] Goal Plan of Care Note [code = 01113-6] Goal Plan of Care Note [code = 27902-4] Goal Plan of Care Note [code = 99032-3] Goal Plan of Care Note [code = 58814-8] Goal Plan of Care Note [code = 73762-4] Goal Plan of Care Note [code = 57568-3] Goal Plan of Care Note [code = 90322-2] Goal Plan of Care Note [code = 82125-3] Goal Plan of Care Note [code = 52797-2] Goal Plan of Care Note [code = 16131-9] Goal Plan of Care Note [code = 41442-3] Goal Plan of Care Note [code = 53885-3] Goal Plan of Care Note [code = 07968-6] Goal Plan of Care Note [code = 45583-0] Goal Plan of Care Note [code = 09179-3] Goal Plan of Care Note [code = 69275-3] Goal Plan of Care Note [code = 02300-1] Goal Plan of Care Note [code = 99724-4] Goal Plan of Care Note [code = 58160-7] Goal Plan of Care Note [code = 70741-6] Goal Plan of Care Note [code = 50549-7] Goal Plan of Care Note [code = 56321-1] Goal Plan of Care Note [code = 52378-5] Goal Plan of Care Note [code = 42081-0] Goal Plan of Care Note [code = 27025-1] Goal Plan of Care Note [code = 63281-6] Goal Plan of Care Note [code = 74955-7] Goal Plan of Care Note [code = 38007-7] Goal Plan of Care Note [code = 97404-7] Goal Plan of Care Note [code = 22313-7] Goal Plan of Care Note [code = 65564-3] Goal Plan of Care Note [code = 22743-7] Goal Plan of Care Note [code = 76039-3] Goal Plan of Care Note [code = 86912-1] Goal Plan of Care Note [code = 13733-3] Goal Plan of Care Note [code = 21500-4] Goal Plan of Care Note [code = 89611-6] Goal Plan of Care Note [code = 25797-0] Goal Plan of Care Note [code = 73917-8] Goal Plan of Care Note [code = 68895-6] Goal Plan of Care Note [code = 58460-5] Goal Plan of Care Note [code = 20060-2] Goal Plan of Care Note [code = 87821-9] Goal Plan of Care Note [code = 61562-1] Goal Plan of Care Note [code = 37803-1] Goal Plan of Care Note [code = 31932-0] Goal Plan of Care Note [code = 12951-0] Goal Plan of Care Note [code = 53343-1] Goal Plan of Care Note [code = 20676-0] Goal Plan of Care Note [code = 19491-0] Goal Plan of Care Note [code = 76640-3] Goal Plan of Care Note [code = 25035-7] Goal Plan of Care Note [code = 85013-2] Goal Plan of Care Note [code = 63020-2] Goal Plan of Care Note [code = 40280-2] Goal Plan of Care Note [code = 83530-8] Goal Plan of Care Note [code = 84243-4] Goal Plan of Care Note [code = 88849-5] Goal Plan of Care Note [code = 80057-8] Goal Plan of Care Note [code = 79954-2] Goal Plan of Care Note [code = 65525-3] Goal Plan of Care Note [code = 48895-3] Goal Plan of Care Note [code = 32511-5] Goal Plan of Care Note [code = 42211-4] Goal Plan of Care Note [code = 81145-0] Goal Plan of Care Note [code = 03839-3] Goal Plan of Care Note [code = 92452-1] Goal Plan of Care Note [code = 52807-6] Goal Plan of Care Note [code = 78389-5] Goal Plan of Care Note [code = 05241-8] Goal Plan of Care Note [code = 60571-6] Goal Plan of Care Note [code = 09152-4] Goal Plan of Care Note [code = 76915-1] Goal Plan of Care Note [code = 84672-4] Goal Plan of Care Note [code = 19901-4] Goal Plan of Care Note [code = 80202-8] Goal Plan of Care Note [code = 30090-7] Goal Plan of Care Note [code = 29766-3] Goal Plan of Care Note [code = 24868-8] Goal Plan of Care Note [code = 21669-1] Goal Plan of Care Note [code = 20957-4] Goal Plan of Care Note [code = 27982-4] Goal Plan of Care Note [code = 73123-6] Goal Plan of Care Note [code = 47645-3] Goal Plan of Care Note [code = 54502-8] Goal Plan of Care Note [code = 47193-6] Goal Plan of Care Note [code = 02465-4] Goal Plan of Care Note [code = 63231-8] Goal Plan of Care Note [code = 95348-7] Goal Plan of Care Note [code = 99393-5] Goal Plan of Care Note [code = 07893-4] Goal Plan of Care Note [code = 33172-9] Goal Plan of Care Note [code = 54968-4] Goal Plan of Care Note [code = 35296-4] Goal Plan of Care Note [code = 84025-5] Goal Plan of Care Note [code = 50620-9] Goal Plan of Care Note [code = 16690-8] Goal Plan of Care Note [code = 98277-7] Goal Plan of Care Note [code = 95238-7] Goal Plan of Care Note [code = 64828-6] Goal Plan of Care Note [code = 84118-7] Goal Plan of Care Note [code = 32165-4] Goal Plan of Care Note [code = 67303-0] Goal Plan of Care Note [code = 73171-6] Goal Plan of Care Note [code = 59146-8] Goal Plan of Care Note [code = 03842-8] Goal Plan of Care Note [code = 93781-9] Goal Plan of Care Note [code = 23108-2] Goal Plan of Care Note [code = 55296-3] Encounters Start Date/Time End Date/Time Encounter Type Admission Type Attending [facility] Care Department Encounter ID Source 2024-05-14 13:07:52 2024-05-14 13:07:52 Outpatient SFA [facility] [id number] Tr Samuel 2024-05-03 14:12:33 2024-05-03 14:12:33 Outpatient SFA [facility] [id number] Tr Samuel 2024-05-03 00:00:00 2024-05-03 00:00:00 Outpatient Visit [facility] [id number] Tr Samuel 2024-04-29 00:00:00 2024-04-29 00:00:00 Outpatient JERICHO COFFEY [id number] [facility] 2024-04-15 16:03:37 2024-04-15 16:03:37 Outpatient SFA [facility] [id number] Tr Samuel 2024-04-15 00:00:00 2024-04-15 00:00:00 Outpatient JERICHO COFFEY [id number] [facility] 2024-04-15 00:00:00 2024-04-15 00:00:00 Outpatient Visit [facility] [id number] Tr Samuel 2024-02-08 00:00:00 2024-02-08 00:00:00 Outpatient JERICHO COFFEY [id number] [facility] 2024-02-04 00:00:00 2024-02-04 00:00:00 Outpatient [facility] [id number] [facility] 2024-02-01 09:00:00 2024-02-01 09:00:00 Outpatient DANISHA MARTÍNEZ FRANNY FRANNY [id number] [facility] 2024-01-18 00:00:00 2024-01-18 00:00:00 Outpatient PREZAS, JERICHO FRANNY OLIVER [id number] [facility] 2024-01-17 00:00:00 2024-01-17 00:00:00 Outpatient PREZAS, JERICHO FRANNY FRANNY [id number] [facility] 2024-01-14 00:00:00 2024-01-14 00:00:00 Outpatient PREZAS, JERICHO FRANNY OLIVER [id number] [facility] 2024-01-03 00:00:00 2024-01-03 00:00:00 Outpatient PREZAS, JERICHO FRANNY OLIVER [id number] [facility] 2023-10-15 00:00:00 2023-10-15 00:00:00 Outpatient PREZAS, JERICHO FRANNY FRANNY [id number] [facility] 2023-09-21 00:00:00 2023-09-21 00:00:00 Outpatient PREZAS, JERICHO FRANNY OLIVER [id number] [facility] 2023-09-19 15:00:00 2023-09-19 15:00:00 Outpatient PREZAS, JERICHO FRANNY OLIVER [id number] Franny Seybold 2023-09-18 00:00:00 2023-09-18 00:00:00 Outpatient PREZAS, JERICHO FRANNY OLIVER [id number] Franny Seybold 2023-08-04 00:00:00 2023-08-04 00:00:00 Outpatient PREZAS, JERICHO FRANNY OLIVER [id number] Franny Sey[facility] 2023-08-03 16:40:00 2023-08-03 16:40:00 Outpatient RJErik OLIVER [id number] Franny Seybold 2023-08-03 16:00:00 2023-08-03 16:00:00 Outpatient PREZAS, JERICHO FRANNY OLIVER [id number] Franny Seybold 2023-08-03 00:00:00 2023-08-03 00:00:00 Outpatient PREZAS, JERICHO FRANNY OLIVER [id number] [facility] 2023-08-02 00:00:00 2023-08-02 00:00:00 Outpatient PREZAS, JERICHO FRANNY OLIVER [id number] [facility] 2023-07-27 14:15:00 2023-07-27 14:15:00 Outpatient PREZAS, JERICHO FRANNY OLIVER [id number] [facility] 2023-03-22 16:30:00 2023-03-22 16:30:00 Outpatient PREZAS, JERICHO FRANNY OLIVER [id number] [facility] 2023-02-23 00:00:00 2023-02-23 00:00:00 Outpatient PREZAS, JERICHO FRANNY OLIVER [id number] [facility] 2023-02-22 09:50:00 2023-02-22 09:50:00 Outpatient LAB90 FRANNY OLIVER [id number] [facility] 2023-02-22 09:15:00 2023-02-22 09:15:00 Outpatient PREZAS, JERICHO FRANNY OLIVER [id number] [facility] 2023-02-21 11:45:00 2023-02-21 11:45:00 Outpatient PREZAS, JERICHO FRANNY OLIVER [id number] [facility] 2023-01-27 09:00:00 2023-01-27 09:00:00 Outpatient SACHS, GRICELDA FRANNY OLIVER [id number] [facility] 2022-12-28 00:00:00 2022-12-28 00:00:00 Outpatient PREZAS, JERICHO FRANNY OLIVER [id number] Franny Seybold 2022-12-16 00:00:00 2022-12-16 00:00:00 Outpatient PREZAS, JERICHO OLIVER [id number] Franny Seybold 2022-12-15 00:00:00 2022-12-15 00:00:00 Outpatient PREZAS, JERICHO OLIVER [id number] [facility] 2022-11-20 00:00:00 2022-11-20 00:00:00 Outpatient PREJERICHO DILLON FRANNY OLIVER [id number] [facility] 2022-11-09 00:00:00 2022-11-09 00:00:00 Outpatient PREZASJERICHO FRANNY OLIVER [id number] [facility] 2022-10-27 00:00:00 2022-10-27 00:00:00 Outpatient PREZASJERICHO FRANNY OLIVER [id number] [facility] 2022-10-20 00:00:00 2022-10-20 00:00:00 Outpatient PREZAJERICHO Lloyd FRANNY OLIVER [id number] [facility] 2022-10-14 10:00:00 2022-10-14 10:00:00 Outpatient GRICELDA HEARN FRANNY OLIVER [id number] [facility] 2022-09-20 09:58:21 2022-09-20 09:58:21 Outpatient SFA INDIGO [id number] Tr Samuel 2022-09-13 15:15:00 2022-09-13 15:15:00 Outpatient JERICHO COFFEY FRANNY OLIVER [id number] [facility] 2022-09-07 22:08:00 2022-09-08 01:57:00 Emergency MIGUEL OCONNOR [facility] ERT [id number] [facility] 2022-09-07 22:08:00 2022-09-08 01:57:00 Emergency Renata Acosta [place] [facility] [id number] [facility] 2022-09-02 11:40:00 2022-09-02 11:40:00 Outpatient JORDAN ROSENBAUM PATRICK [facility] [id number] [facility] 2022-08-24 00:00:00 2022-08-24 00:00:00 Outpatient JERICHO COFFEY FRANNY OLIVER [id number] [facility] 2022-08-18 17:38:00 2022-08-18 21:26:00 Emergency X ALAN BENJAMIN [facility] ERT [id number] [facility] 2022-08-18 17:38:00 2022-08-18 21:26:00 Emergency Alan Benjamin [facility] [id number] [facility] 2022-08-17 00:00:00 2022-08-17 00:00:00 Outpatient PREZAPrema JERICHO OLIVER [id number] Franny Mi 2022-08-15 09:15:00 2022-08-15 09:15:00 Outpatient LAB90 FRANNY OLIVER [id number] [facility] 2022-08-15 08:45:00 2022-08-15 08:45:00 Outpatient PREZAS, JERICHO FRANNY OLIVER [id number] [facility] 2022-08-14 00:00:00 2022-08-14 00:00:00 Outpatient PREZAS JERICHO OLIVER [id number] [facility] 2022-08-01 00:00:00 2022-08-01 00:00:00 Outpatient PREZAS JERICHO OLIVER [id number] [facility] 2022-07-01 00:00:00 2022-07-01 00:00:00 Outpatient PREZASJERICHO FRANNY OLIVER [id number] [facility] 2022-06-22 15:45:00 2022-06-22 15:45:00 Outpatient STEPHANIE CLAYTON [id number] [facility] 2022-06-03 13:00:00 2022-06-03 13:20:00 Office Visit Jordan Grimaldo [facility] ..[id number] [facility] 2022-06-03 13:00:00 2022-06-03 13:00:00 Outpatient R JORDAN GRIMALDO PATRICK [facility] [id number] [facility] 2022-06-03 00:00:00 2022-06-03 00:00:00 Orders Only Doctor Unassigned, [place] [facility] [id number] [facility] 2022-05-31 10:00:00 2022-05-31 10:00:00 Outpatient JERICHO COFFEY [id number] [facility] 2022-05-30 00:00:00 2022-05-30 00:00:00 Outpatient JERICHO COFFEY [id number] [facility] 2022-05-20 16:15:00 2022-05-20 16:15:00 Outpatient JERICHO COFFEY [id number] [facility] 2022-05-10 00:00:00 2022-05-10 00:00:00 Transition of Care Rufina Campos [facility]DR[facility] 1..840.114 350.1.13.10 4.2.7.2.686 [id number] [facility] 2022-05-09 00:00:00 2022-05-09 00:00:00 Telephone Salbador Cutler [facility] 1..840.114 350.1.13.10 4.2.7.2.686 [id number] [facility] 2022-04-28 23:45:00 2022-05-08 16:28:00 Inpatient X JORDAN GRIMALDO PATRICK [facility] [id number] [facility] 2022-04-28 23:45:00 2022-05-08 16:28:00 Hospital Encounter Shannan Brian Patrick [facility] 1.2.840.114 350.1.13.10 4.2.7.2.686 [id number] [facility] 2022-05-08 00:00:00 2022-05-08 00:00:00 Telephone Jordan Grimaldo [facility] BUILD[facility] 1.2.840.114 350.1.13.10 4.2.7.2.686 [id number] [facility] 2022-05-06 06:55:00 2022-05-06 10:24:00 [facility] 1.2.840.114 350.1.13.10 4.2.7.2.686 [id number] [facility] 2022-05-05 08:00:00 2022-05-05 08:00:00 Outpatient PREJERICHO DILLON [id number] [facility] 2022-04-29 00:00:00 2022-04-29 00:00:00 Outpatient SAVANNA ALEX [id number] [facility] 2022-04-28 18:58:00 2022-04-28 22:43:00 Emergency X ALAN BENJAMIN [facility] ERT [id number] [facility] 2022-04-28 18:58:00 2022-04-28 22:43:00 Emergency Alan Benjamin [facility] 1.2.840.114 350.1.13.10 4.2.7.2.686 [id number] [facility] 2022-04-27 16:05:00 2022-04-27 16:05:00 Outpatient KATELIN BASS [id number] [facility] 2022-04-27 15:40:00 2022-04-27 15:40:00 Outpatient SAVANNA ALEX [id number] [facility] 2022-04-22 00:00:2022-04-22 00:00:00 Outpatient JERICHO COFFEY [id number] [facility] 2022-04-21 08:25:00 2022-04-21 08:25:00 Outpatient FLAKO OLIVER [id number] [facility] 2022-04-20 09:30:00 2022-04-20 09:30:00 Outpatient JERICHO COFFEY [id number] [facility] 2022-03-30 09:00:00 2022-03-30 09:00:00 Outpatient BARRY GUEVARA [id number] [facility] 2022-02-15 16:07:21 2022-02-15 16:07:21 Outpatient SFA SFA [id number] 2022-02-15 00:00:00 2022-02-15 00:00:00 Outpatient Visit [id number] 2022-02-01 17:18:26 2022-02-01 17:18:26 Outpatient SFA SFA [id number] 2022-02-01 00:00:00 2022-02-01 00:00:00 Outpatient Visit [id number] 2022-01-21 17:20:09 2022-01-21 17:20:09 Outpatient SFA SFA [id number] [facility] 2022-01-21 00:00:00 2022-01-21 00:00:00 Outpatient Visit [id number] 2022-01-18 00:00:00 2022-01-18 00:00:00 Transition of Care Magda Gilliam 1.2.840.114 350.1.13.10 4.2.7.2.686 [id number] [facility] 2022-01-10 18:51:00 2022-01-17 16:55:00 Inpatient U JONES PHIPPS [facility] [id number] [facility] 2022-01-10 18:51:00 2022-01-17 16:55:00 Hospital Encounter Mariusz Deluca, Arnold Addison, Mayte Phipps, Jones William, [facility] 1.2.840.114 350.1.13.10 4.2.7.2.686 [id number] [facility] 2022-01-12 00:00:00 2022-01-12 00:00:00 Travel 1.2.840.1 90425.1.1 3.104.2.7 .3.812320 .8 1.2.840.114 350.1.13.10 4.2.7.3.698 [id number] [facility] 2022-01-10 18:51:00 2022-01-10 18:51:00 Outpatient X ARNOLD LAUREANO [facility] [id number] [facility] 2022-01-10 00:00:00 2022-01-10 00:00:00 Travel 1.2.840.1 89280.1.1 3.104.2.7 .3.020255 .8 1.2.840.114 350.1.13.10 4.2.7.3.698 [id number] [facility] 2021-12-14 16:02:46 2021-12-14 16:02:46 Outpatient SFA [facility] [id number] Jimmie 2021-09-30 15:27:00 2021-10-01 16:00:00 Outpatient X PAYAL RAY [facility] [id number] [facility] 2021-09-30 15:27:00 2021-10-01 16:00:00 Emergency WarnerJeanna Payal [facility] 1.2840.114 350.1.13.10 4.2.7.2.686 [id number] [facility] 2021-09-23 00:00:00 2021-09-23 00:00:00 Outpatient Visit [id number] -[id number]-[id number] [id number] 2021-09-08 21:26:00 2021-09-09 01:05:00 Emergency RENATA ROUSE [facility] [id number] [facility] 2021-09-08 21:26:00 2021-09-09 01:05:00 Emergency Renata Acosta [facility] 1.2840.114 350.1.13.10 4.2.7.2.686 [id number] [facility] 2021-08-18 00:00:00 2021-08-18 00:00:00 Outpatient Visit [id number] 2020-07-29 00:00:00 2020-07-29 00:00:00 Transition of Care Magda Gilliam 1.2840.114 350.1.13.10 4.2.7.2.686 [id number] [facility] 2020-07-27 00:57:00 2020-07-28 14:59:00 Hospital Encounter Tamika Vieira [facility] ([facility] 1.20.114 350.1.13.10 4.2.7.2.686 [id number] [facility] 2020-07-27 00:57:00 2020-07-27 00:57:00 Emergency X TAMIKA VIEIRA [facility] ERT [id number] [facility] 2020-07-16 00:00:00 2020-07-16 00:00:00 Transition of Care Magda Gilliam 1.2.840.114 350.1.13.10 4.2.7.2.686 [id number] [facility] 2020-07-09 00:23:00 2020-07-14 12:00:00 Inpatient X MIGUEL MENDOZA [facility] [id number] [facility] 2020-07-09 00:23:00 2020-07-14 12:00:00 Hospital Encounter Aretha MendozaCarolynn Arevalo [facility] 1..840.114 350.1.13.10 4.2.7.2.686 [id number] [facility] Results Test Description Test Time Test Comments Results Result Co mments Source [facility] Vikram [id number] 04:23:31* Test Item Value Reference Range Interpretation Comme nts TROPONIN I (test code = 6323392857) 0.002 ng/mL <=0.034 MARIPOSA (test code = [...] of biotin. Lab Interpretation (test code = 32539-0) [id number] 04:23:11* Test Item Value Reference Range Interpretation Comme nts NT-proBNP (test code = 22633-6) <=125 Lab Interpretation (test cod e = 34993-4) [facility] (48530)2022-09-08 04:03:34* Test Item Value Reference Range Interpretation Comme nts NA (test code = 4203689280) 140 mmol/L 135-145 K (test code = 8191341492) 4.3 mmol/L 3.5-5.0 CL (test code = 3295346123) 101 mmol/L 98-108 CO2 TOTAL (test code = 8180039759) 31 mmol/L 23-31 AGAP (test code = 4493233460) 8 2-16 BUN (test code = 8741851316) 13 mg/dL 7-23 GLUCOSE (test code = 4072358587) 151 mg/dL 70-110 H CREATININE (test code = 8066968012) 0.48 mg/dL 0.50-1.04 L TOTAL BILI (test code = 9092183216) 0.4 mg/dL 0.1-1.1 CALCIUM (test code = 1519371795) 9.1 mg/dL 8.6-10.6 T PROTEIN (test code = 5878344644) 8.3 g/dL 6.3-8.2 H ALBUMIN (test code = 8625246751) 4.2 g/dL 3.5-5.0 ALK PHOS (test code = 6677770797) 129 U/L 34-122 H ALTv (test code = 1742-6) 19 U/L 5-35 AST(SGOT) (test code = 1129728742) 19 U/L 13-40 eGFR (test code = 4050431602) 140.5 mL/min/1.73m2 MARIPOSA (test code = MARIPOSA) Association [...] imaging tests). Lab Interpretation (test code = 96151-6) Abnormal [facility] WITH [id number] 03:52:32* Test Item Value Reference Range Interpretation Comme nts WBC (test code = 6690-2) 7.93 See_Comment [Automated [employer]] The system which generated this result transmitted reference range: 4.30 - 11.10 10*3/?L. The reference range was not used to interpret this result as normal/abnormal. RBC (test code = 789-8) 4.69 See_Comment [[employer]] The system which generated this result transmitted reference range: 3.93 - 5.25 10*6/?L. The reference range was not used to interpret this result as normal/abnormal. HGB (test code = 718-7) 12.6 g/dL 11.6-15.0 HCT (test code = 4544-3) 40.0 % 35.7-45.2 MCV (test code = 787-2) 85.3 fL 80.6-95.5 MCH (test code = 785-6) 26.9 pg 25.9-32.8 MCHC (test code = 786-4) 31.5 g/dL 31.6-35.1 L RDW-SD (test code = 31534-1) 45.6 fL 39.0-49.9 RDW-CV (test code = 788-0) 14.8 % 12.0-15.5 PLT (test code = 777-3) 218 See_Comment [Automated messa ge] The system which generated this result transmitted reference range: 166 - 358 10*3/?L. The reference range was not used to interpret this result as normal/abnormal. MPV (test code = 77087-1) 10.8 fL 9.5-12.9 NRBC/100 WBC (test code = 5337698809) 0.0 See_Comment [Automated me ssage] The system which generated this result transmitted reference range: 0.0 - 10.0 /100 WBCs. The reference range was not used to interpret this result as normal/abnormal. NRBC x10^3 (test code = 9688911173) See_Comment [Automated messa ge] The system which generated this result transmitted reference range: 10*3/?L. The reference range was not used to interpret this result as normal/abnormal. GRAN MAT (NEUT) % (test code = 770-8) 62.3 % IMM GRAN % (test code = 3057306564) 0.50 % LYMPH % (test code = 736-9) 23.8 % MONO % (test code = 5905-5) 5.3 % EOS % (test code = 713-8) 7.7 % BASO % (test code = 706-2) 0.4 % GRAN MAT x10^3(ANC) (test code = 9936324373) 4.94 10*3/uL 1.88-7.09 IMM GRAN x10^3 (test code = 3135225489) 0.04 10*3/uL 0.00-0.06 LYMPH x10^3 (test code = 731-0) 1.89 10*3/uL 1.32-3.29 MONO x10^3 (test code = 742-7) 0.42 10*3/uL 0.33-0.92 EOS x10^3 (test code = 711-2) 0.61 10*3/uL 0.03-0.39 H BASO x10^3 (test code = 704-7) 0.03 10*3/uL 0.01-0.07 Lab Interpretation (test code = 88404-5) Abnormal [facility] GLUCOSE (AUTOMATED)2022-05-08 13:06:38* Test Item Value Reference Range Interpretation Comme nts POCT GLU (test code = 6318045021) 103 mg/dL 70-110 Lab Interpretation (test cod e = 14183-9) Normal [facility] GLUCOSE (AUTOMATED)2022-05-08 01:55:52* Test Item Value Reference Range Interpretation Comme nts POCT GLU (test code = 7006971722) 157 mg/dL 70-110 H Lab Interpretation (test cod e = 58500-6) Abnormal [facility] GLUCOSE (AUTOMATED)2022-05-08 01:34:46* Test Item Value Reference Range Interpretation Comme nts POCT GLU (test code = 1837686776) 129 mg/dL 70-110 H Lab Interpretation (test cod e = 99705-1) Abnormal [facility] GLUCOSE (AUTOMATED)2022-05-07 22:11:48* Test Item Value Reference Range Interpretation Comme nts POCT GLU (test code = 9499823285) 165 mg/dL 70-110 H Lab Interpretation (test cod e = 05763-2) Abnormal [facility] GLUCOSE (AUTOMATED)2022-05-07 17:58:28* Test Item Value Reference Range Interpretation Comme nts POCT GLU (test code = 0270894225) 132 mg/dL 70-110 H Lab Interpretation (test cod e = 46199-9) Abnormal [facility] GLUCOSE (AUTOMATED)2022-05-07 17:58:28* Test Item Value Reference Range Interpretation Comme nts POCT GLU (test code = 8313163547) 132 mg/dL 70-110 H Lab Interpretation (test cod e = 32699-4) Abnormal [facility] GLUCOSE (AUTOMATED)2022-05-07 14:43:43* Test Item Value Reference Range Interpretation Comme nts POCT GLU (test code = 7549206789) 156 mg/dL 70-110 H Lab Interpretation (test cod e = 01048-9) Abnormal [facility] GLUCOSE (AUTOMATED)2022-05-07 14:43:43* Test Item Value Reference Range Interpretation Comme nts POCT GLU (test code = 9800933180) 156 mg/dL 70-110 H Lab Interpretation (test cod e = 68382-8) Abnormal [facility] METABOLIC PANEL (NA, K, CL, CO2, GLUCOSE, BUN, CREATININE, CA)2022-05-07 08:45:18* Test Item Value Reference Range Interpretation Comme nts NA (test code = 1048531633) 140 mmol/L 135-145 K (test code = 8342262227) 3.3 mmol/L 3.5-5.0 L CL (test code = 2271878437) 103 mmol/L 98-108 CO2 TOTAL (test code = 8378560224) 32 mmol/L 23-31 H AGAP (test code = 1444185102) 5 2-16 BUN (test code = 6577722089) 12 mg/dL 7-23 GLUCOSE (test code = 6756344855) 153 mg/dL 70-110 H CREATININE (test code = 7184849557) 0.48 mg/dL 0.50-1.04 L CALCIUM (test code = 3697776073) 8.2 mg/dL 8.6-10.6 L eGFR (test code = 1927580956) 141.2 mL/min/1.73m2 MARIPOSA (test code = MARIPOSA) Association [...] imaging tests). Lab Interpretation (test code = 19952-0) Abnormal [facility] METABOLIC PANEL (NA, K, CL, CO2, GLUCOSE, BUN, CREATININE, CA)2022-05-07 08:45:18* Test Item Value Reference Range Interpretation Comme nts NA (test code = 6993149636) 140 mmol/L 135-145 K (test code = 4138160367) 3.3 mmol/L 3.5-5.0 L CL (test code = 8650501456) 103 mmol/L 98-108 CO2 TOTAL (test code = 0107859550) 32 mmol/L 23-31 H AGAP (test code = 3084960021) 5 2-16 BUN (test code = 8567344964) 12 mg/dL 7-23 GLUCOSE (test code = 6472722078) 153 mg/dL 70-110 H CREATININE (test code = 0896482798) 0.48 mg/dL 0.50-1.04 L CALCIUM (test code = 0568218982) 8.2 mg/dL 8.6-10.6 L eGFR (test code = 0462363181) 141.2 mL/min/1.73m2 MARIPOSA (test code = MARIPOSA) Association [...] imaging tests). Lab Interpretation (test code = 63101-1) Abnormal [facility] [id number] 03:43:33* Test Item Value Reference Range Interpretation Comme nts TROPONIN I (test code = 4112056086) 0.003 ng/mL <=0.034 MARIPOSA (test code = MARIPOSA) [...] of biotin. Lab Interpretation (test code = 53964-5) Normal [facility] [id number] 03:43:33* Test Item Value Reference Range Interpretation Comme nts TROPONIN I (test code = 7779494380) 0.003 ng/mL <=0.034 MARIPOSA (test code = MARIPOSA) [...] of biotin. Lab Interpretation (test code = 08162-8) Normal [facility] GLUCOSE (AUTOMATED)2022-05-07 01:38:50* Test Item Value Reference Range Interpretation Comme nts POCT GLU (test code = 6256510911) 156 mg/dL 70-110 H Lab Interpretation (test cod e = 55219-1) Abnormal [facility] GLUCOSE (AUTOMATED)2022-05-07 01:38:50* Test Item Value Reference Range Interpretation Comme nts POCT GLU (test code = 8556517364) 156 mg/dL 70-110 H Lab Interpretation (test cod e = 23115-6) Abnormal [facility] GLUCOSE (AUTOMATED)2022-05-06 23:06:02* Test Item Value Reference Range Interpretation Comme nts POCT GLU (test code = 5819603547) 138 mg/dL 70-110 H Lab Interpretation (test cod e = 51226-9) Abnormal [facility] GLUCOSE (AUTOMATED)2022-05-06 23:06:02* Test Item Value Reference Range Interpretation Comme nts POCT GLU (test code = 9574863522) 138 mg/dL 70-110 H Lab Interpretation (test cod e = 11934-5) Abnormal [facility] GLUCOSE (AUTOMATED)2022-05-06 17:47:43* Test Item Value Reference Range Interpretation Comme nts POCT GLU (test code = 5312475518) 126 mg/dL 70-110 H Lab Interpretation (test cod e = 69949-1) Abnormal [facility] GLUCOSE (AUTOMATED)2022-05-06 17:47:43* Test Item Value Reference Range Interpretation Comme nts POCT GLU (test code = 6333911480) 126 mg/dL 70-110 H Lab Interpretation (test cod e = 84650-7) Abnormal [facility] METABOLIC PANEL (NA, K, CL, CO2, GLUCOSE, BUN, CREATININE, CA)2022-05-06 05:40:49* Test Item Value Reference Range Interpretation Comme nts NA (test code = 3830533563) 139 mmol/L 135-145 K (test code = 1333367639) 4.0 mmol/L 3.5-5.0 CL (test code = 0842760770) 100 mmol/L 98-108 CO2 TOTAL (test code = 5637237325) 32 mmol/L 23-31 H AGAP (test code = 4145492517) 7 2-16 BUN (test code = 9477814673) 12 mg/dL 7-23 GLUCOSE (test code = 9305860604) 108 mg/dL 70-110 CREATININE (test code = 4563073320) 0.47 mg/dL 0.50-1.04 L CALCIUM (test code = 4753833378) 8.9 mg/dL 8.6-10.6 eGFR (test code = 1179938268) 144.6 mL/min/1.73m2 MARIPOSA (test code = MARIPOSA) Association [...] imaging tests). Lab Interpretation (test code = 34987-5) Abnormal [facility] METABOLIC PANEL (NA, K, CL, CO2, GLUCOSE, BUN, CREATININE, CA)2022-05-06 05:40:49* Test Item Value Reference Range Interpretation Comme nts NA (test code = 6537178782) 139 mmol/L 135-145 K (test code = 3824673779) 4.0 mmol/L 3.5-5.0 CL (test code = 8026077262) 100 mmol/L 98-108 CO2 TOTAL (test code = 3838029962) 32 mmol/L 23-31 H AGAP (test code = 7883014981) 7 2-16 BUN (test code = 6735647010) 12 mg/dL 7-23 GLUCOSE (test code = 9371977474) 108 mg/dL 70-110 CREATININE (test code = 0731201472) 0.47 mg/dL 0.50-1.04 L CALCIUM (test code = 5204291036) 8.9 mg/dL 8.6-10.6 eGFR (test code = 4412051691) 144.6 mL/min/1.73m2 MARIPOSA (test code = MARIPOSA) Association [...] imaging tests). Lab Interpretation (test code = 79107-2) [facility] [id number] 05:37:58* Test Item Value Reference Range Interpretation Comme [facility] PREG SERUM (test code = 8752100230) Negative MARIPOSA (test code = MARIPOSA) Less than 10 IU/L. ?If low titer or ectopic is suspected, resubmit specimen in 48-72 hours. [facility], [id number] 05:37:58* Test Item Value Reference Range Interpretation Comme [facility] PREG SERUM (test code = 8011771570) Negative MARIPOSA (test code = MARIPOSA) Less than 10 IU/L. ?If low titer or ectopic is suspected, resubmit specimen in 48-72 hours. [facility] THRM[facility] [id number] 04:47:02* Test Item Value Reference Range Interpretation Comme [facility] APTT Patient (test code = 3173-2) 33 See_Comment [Automated [employer]] The system which generated this result transmitted reference range: 26 - 36 Seconds. The reference range was not used to interpret this result as normal/abnormal. Lab Interpretation (test code = 12570-3) Normal [facility] / [id number] 04:47:02* Test Item Value Reference Range Interpretation Comme [facility] PROTIME PATIENT (test code = 5964-2) 12.9 See_Comment H [Automated [employer]] The system which generated this result transmitted reference range: 10.1 - 12.6 Seconds. The reference range was not used to interpret this result as normal/abnormal. INR (test code = 6301-6) 1.2 Normal INR <1.1; Warfarin Therapeutic range 2.0 to 3.0 or 2.5 to 3.5, depending upon the indications. Lab Interpretation (test code = 70316-5) Abnormal [facility] [id number] 04:47:02* Test Item Value Reference Range Interpretation Comme [facility] APTT Patient (test code = 3173-2) 33 See_Comment [Automated messa ge] The system which generated this result transmitted reference range: 26 - 36 Seconds. The reference range was not used to interpret this result as normal/abnormal. Lab Interpretation (test code = 44516-1) Normal [facility] / [id number] 04:47:02* Test Item Value Reference Range Interpretation Comme [facility] PROTIME PATIENT (test code = 5964-2) 12.9 See_Comment H [Automated messa ge] The system which generated this result transmitted reference range: 10.1 - 12.6 Seconds. The reference range was not used to interpret this result as normal/abnormal. INR (test code = 6301-6) 1.2 Normal INR <1.1; Warfarin Therapeutic range 2.0 to 3.0 or 2.5 to 3.5, depending upon the indications. Lab Interpretation (test code = 70069-9) [facility]normal [facility] [id number] 04:43:00* Test Item Value Reference Range Interpretation Comme [facility] WBC (test code = 6690-2) 6.97 See_Comment [Automated messa ge] The system which generated this result transmitted reference range: 4.30 - 11.10 10*3/?L. The reference range was not used to interpret this result as normal/abnormal. RBC (test code = 789-8) 4.26 See_Comment [Automated messa ge] The system which generated this result transmitted reference range: 3.93 - 5.25 10*6/?L. The reference range was not used to interpret this result as normal/abnormal. HGB (test code = 718-7) 11.3 g/dL 11.6-15.0 L HCT (test code = 4544-3) 36.8 % 35.7-45.2 MCV (test code = 787-2) 86.4 fL 80.6-95.5 MCH (test code = 785-6) 26.5 pg 25.9-32.8 MCHC (test code = 786-4) 30.7 g/dL 31.6-35.1 L RDW-SD (test code = 59539-3) 46.7 fL 39.0-49.9 RDW-CV (test code = 788-0) 14.8 % 12.0-15.5 PLT (test code = 777-3) 178 See_Comment [Automated messa ge] The system which generated this result transmitted reference range: 166 - 358 10*3/?L. The reference range was not used to interpret this result as normal/abnormal. MPV (test code = 73120-8) 10.5 fL 9.5-12.9 NRBC/100 WBC (test code = 9758425969) 0.0 See_Comment [Automated me ssage] The system which generated this result transmitted reference range: 0.0 - 10.0 /100 WBCs. The reference range was not used to interpret this result as normal/abnormal. NRBC x10^3 (test code = 5872114964) See_Comment [Automated messa ge] The system which generated this result transmitted reference range: 10*3/?L. The reference range was not used to interpret this result as normal/abnormal. GRAN MAT (NEUT) % (test code = 770-8) 69.2 % IMM GRAN % (test code = 3090957359) 0.30 % LYMPH % (test code = 736-9) 20.7 % MONO % (test code = 5905-5) 7.0 % EOS % (test code = 713-8) 2.4 % BASO % (test code = 706-2) 0.4 % GRAN MAT x10^3(ANC) (test code = 3767315247) 4.82 10*3/uL 1.88-7.09 IMM GRAN x10^3 (test code = 7286410466) 0.00-0.06 LYMPH x10^3 (test code = 731-0) 1.44 10*3/uL 1.32-3.29 MONO x10^3 (test code = 742-7) 0.49 10*3/uL 0.33-0.92 EOS x10^3 (test code = 711-2) 0.17 10*3/uL 0.03-0.39 BASO x10^3 (test code = 704-7) 0.03 10*3/uL 0.01-0.07 Lab Interpretation (test code = 99946-2) Abnormal [facility] WITH [id number] 04:43:00* Test Item Value Reference Range Interpretation Comme nts WBC (test code = 6690-2) 6.97 See_Comment [Automated messa ge] The system which generated this result transmitted reference range: 4.30 - 11.10 10*3/?L. The reference range was not used to interpret this result as normal/abnormal. RBC (test code = 789-8) 4.26 See_Comment [Automated messa ge] The system which generated this result transmitted reference range: 3.93 - 5.25 10*6/?L. The reference range was not used to interpret this result as normal/abnormal. HGB (test code = 718-7) 11.3 g/dL 11.6-15.0 L HCT (test code = 4544-3) 36.8 % 35.7-45.2 MCV (test code = 787-2) 86.4 fL 80.6-95.5 MCH (test code = 785-6) 26.5 pg 25.9-32.8 MCHC (test code = 786-4) 30.7 g/dL 31.6-35.1 L RDW-SD (test code = 73738-4) 46.7 fL 39.0-49.9 RDW-CV (test code = 788-0) 14.8 % 12.0-15.5 PLT (test code = 777-3) 178 See_Comment [Automated messa ge] The system which generated this result transmitted reference range: 166 - 358 10*3/?L. The reference range was not used to interpret this result as normal/abnormal. MPV (test code = 01115-4) 10.5 fL 9.5-12.9 NRBC/100 WBC (test code = 2515479567) 0.0 See_Comment [Automated me ssage] The system which generated this result transmitted reference range: 0.0 - 10.0 /100 WBCs. The reference range was not used to interpret this result as normal/abnormal. NRBC x10^3 (test code = 6862618637) See_Comment [Automated messa ge] The system which generated this result transmitted reference range: 10*3/?L. The reference range was not used to interpret this result as normal/abnormal. GRAN MAT (NEUT) % (test code = 770-8) 69.2 % IMM GRAN % (test code = 8115599525) 0.30 % LYMPH % (test code = 736-9) 20.7 % MONO % (test code = 5905-5) 7.0 % EOS % (test code = 713-8) 2.4 % BASO % (test code = 706-2) 0.4 % GRAN MAT x10^3(ANC) (test code = 0246601432) 4.82 10*3/uL 1.88-7.09 IMM GRAN x10^3 (test code = 2587708463) 0.00-0.06 LYMPH x10^3 (test code = 731-0) 1.44 10*3/uL 1.32-3.29 MONO x10^3 (test code = 742-7) 0.49 10*3/uL 0.33-0.92 EOS x10^3 (test code = 711-2) 0.17 10*3/uL 0.03-0.39 BASO x10^3 (test code = 704-7) 0.03 10*3/uL 0.01-0.07 Lab Interpretation (test code = 09273-1) [facility] - ONCE [id number] 04:35:00* Test Item Value Reference Range Interpretation Comme nts ABO & RH (test code = 20) O POSITIVE IAT (test code = 1185) [facility] [id number] 04:35:00* Test Item Value Reference Range Interpretation Comme nts ABO & RH (test code = 20) O POSITIVE IAT (test code = 1185) Negative [facility] GLUCOSE (AUTOMATED)2022-05-06 01:51:07* Test Item Value Reference Range Interpretation Comme nts POCT GLU (test code = 8571529421) 99 mg/dL 70-110 Lab Interpretation (test cod e = 34588-0) Normal [facility] GLUCOSE (AUTOMATED)2022-05-06 01:51:07* Test Item Value Reference Range Interpretation Comme nts POCT GLU (test code = 3077165687) 99 mg/dL 70-110 Lab Interpretation (test cod e = 84460-3) Normal [facility] GLUCOSE (AUTOMATED)2022-05-05 22:25:45* Test Item Value Reference Range Interpretation Comme nts POCT GLU (test code = 3098230966) 104 mg/dL 70-110 Lab Interpretation (test cod e = 54208-4) Normal [facility] GLUCOSE (AUTOMATED)2022-05-05 22:25:45* Test Item Value Reference Range Interpretation Comme nts POCT GLU (test code = 0329513761) 104 mg/dL 70-110 Lab Interpretation (test cod e = 08604-8) Normal [facility] GLUCOSE (AUTOMATED)2022-05-05 17:48:07* Test Item Value Reference Range Interpretation Comme nts POCT GLU (test code = 7388142741) 118 mg/dL 70-110 H Notified Provide r Lab Interpretation (test code = 57201-1) Abnormal [facility] GLUCOSE (AUTOMATED)2022-05-05 17:48:07* Test Item Value Reference Range Interpretation Comme nts POCT GLU (test code = 4604658445) 118 mg/dL 70-110 H Notified Provide r Lab Interpretation (test code = 33231-4) Abnormal [facility] GLUCOSE (AUTOMATED)2022-05-05 12:44:49* Test Item Value Reference Range Interpretation Comme nts POCT GLU (test code = 3687432348) 106 mg/dL 70-110 Notified Provide r Lab Interpretation (test code = 53963-8) Normal [facility] GLUCOSE (AUTOMATED)2022-05-05 12:44:49* Test Item Value Reference Range Interpretation Comme nts POCT GLU (test code = 6446182367) 106 mg/dL 70-110 Notified Provide r Lab Interpretation (test code = 00177-8) Normal [facility] GLUCOSE (AUTOMATED)2022-05-04 21:54:31* Test Item Value Reference Range Interpretation Comme nts POCT GLU (test code = 6891128665) 115 mg/dL 70-110 H Notified Provide r Lab Interpretation (test code = 63225-9) Abnormal [facility] GLUCOSE (AUTOMATED)2022-05-04 21:54:31* Test Item Value Reference Range Interpretation Comme nts POCT GLU (test code = 2560099448) 115 mg/dL 70-110 H Notified Provide r Lab Interpretation (test code = 00841-8) Abnormal [facility] GLUCOSE (AUTOMATED)2022-05-04 16:45:44* Test Item Value Reference Range Interpretation Comme nts POCT GLU (test code = 1221472384) 120 mg/dL 70-110 H Notified Provide r Lab Interpretation (test code = 78651-1) Abnormal [facility] GLUCOSE (AUTOMATED)2022-05-04 16:45:44* Test Item Value Reference Range Interpretation Comme nts POCT GLU (test code = 7760380741) 120 mg/dL 70-110 H Notified Provide r Lab Interpretation (test code = 56432-6) Abnormal [facility] GLUCOSE (AUTOMATED)2022-05-04 12:51:31* Test Item Value Reference Range Interpretation Comme nts POCT GLU (test code = 5215393011) 116 mg/dL 70-110 H Notified Provide r Lab Interpretation (test code = 84814-7) Abnormal [facility] GLUCOSE (AUTOMATED)2022-05-04 12:51:31* Test Item Value Reference Range Interpretation Comme nts POCT GLU (test code = 6262932763) 116 mg/dL 70-110 H Notified Provide r Lab Interpretation (test code = 18736-6) Abnormal [facility] GLUCOSE (AUTOMATED)2022-05-04 02:01:45* Test Item Value Reference Range Interpretation Comme nts POCT GLU (test code = 4314346432) 105 mg/dL 70-110 Lab Interpretation (test cod e = 79699-6) Normal [facility] GLUCOSE (AUTOMATED)2022-05-04 02:01:45* Test Item Value Reference Range Interpretation Comme nts POCT GLU (test code = 8370872099) 105 mg/dL 70-110 Lab Interpretation (test cod e = 84276-9) Normal [facility] GLUCOSE (AUTOMATED)2022-05-03 21:13:28* Test Item Value Reference Range Interpretation Comme nts POCT GLU (test code = 4832882751) 126 mg/dL 70-110 H Notified Provide r Lab Interpretation (test code = 04764-8) Abnormal [facility] GLUCOSE (AUTOMATED)2022-05-03 21:13:28* Test Item Value Reference Range Interpretation Comme nts POCT GLU (test code = 9102069116) 126 mg/dL 70-110 H Notified Provide r Lab Interpretation (test code = 50804-0) Abnormal [facility] GLUCOSE (AUTOMATED)2022-05-03 17:04:57* Test Item Value Reference Range Interpretation Comme nts POCT GLU (test code = 6351188471) 104 mg/dL 70-110 Notified Provide r Lab Interpretation (test code = 76506-0) Normal [facility] GLUCOSE (AUTOMATED)2022-05-03 17:04:57* Test Item Value Reference Range Interpretation Comme nts POCT GLU (test code = 1926925626) 104 mg/dL 70-110 Notified Provide r Lab Interpretation (test code = 65504-8) Normal [facility] GLUCOSE (AUTOMATED)2022-05-03 12:40:06* Test Item Value Reference Range Interpretation Comme nts POCT GLU (test code = 7936369178) 103 mg/dL 70-110 Notified Provide r Lab Interpretation (test code = 58276-8) Normal [facility] GLUCOSE (AUTOMATED)2022-05-03 12:40:06* Test Item Value Reference Range Interpretation Comme nts POCT GLU (test code = 1212652106) 103 mg/dL 70-110 Notified Provide r Lab Interpretation (test code = 78296-8) Normal [facility] GLUCOSE (AUTOMATED)2022-05-03 02:54:17* Test Item Value Reference Range Interpretation Comme nts POCT GLU (test code = 2488443479) 106 mg/dL 70-110 Lab Interpretation (test cod e = 61889-7) Normal [facility] GLUCOSE (AUTOMATED)2022-05-03 02:54:17* Test Item Value Reference Range Interpretation Comme nts POCT GLU (test code = 4612855689) 106 mg/dL 70-110 Lab Interpretation (test cod e = 24569-0) Normal [facility] GLUCOSE (AUTOMATED)2022-05-02 22:11:04* Test Item Value Reference Range Interpretation Comme nts POCT GLU (test code = 4468364274) 136 mg/dL 70-110 H Lab Interpretation (test cod e = 86395-0) Abnormal [facility] GLUCOSE (AUTOMATED)2022-05-02 22:11:04* Test Item Value Reference Range Interpretation Comme nts POCT GLU (test code = 3397400873) 136 mg/dL 70-110 H Lab Interpretation (test cod e = 89438-7) Abnormal [facility] GLUCOSE (AUTOMATED)2022-05-02 17:20:00* Test Item Value Reference Range Interpretation Comme nts POCT GLU (test code = 8578254551) 115 mg/dL 70-110 H Lab Interpretation (test cod e = 93679-5) Abnormal [facility] GLUCOSE (AUTOMATED)2022-05-02 17:20:00* Test Item Value Reference Range Interpretation Comme nts POCT GLU (test code = 1637857251) 115 mg/dL 70-110 H Lab Interpretation (test cod e = 11062-0) Abnormal [facility] GLUCOSE (AUTOMATED)2022-05-02 13:31:10* Test Item Value Reference Range Interpretation Comme nts POCT GLU (test code = 2519174012) 106 mg/dL 70-110 Lab Interpretation (test cod e = 36312-3) Normal [facility] GLUCOSE (AUTOMATED)2022-05-02 13:31:10* Test Item Value Reference Range Interpretation Comme nts POCT GLU (test code = 4223354510) 106 mg/dL 70-110 Lab Interpretation (test cod e = 57589-6) Normal [facility] GLUCOSE (AUTOMATED)2022-05-02 02:07:14* Test Item Value Reference Range Interpretation Comme nts POCT GLU (test code = 8123569198) 149 mg/dL 70-110 H Lab Interpretation (test cod e = 87173-2) Abnormal [facility] GLUCOSE (AUTOMATED)2022-05-02 02:07:14* Test Item Value Reference Range Interpretation Comme nts POCT GLU (test code = 3662048204) 149 mg/dL 70-110 H Lab Interpretation (test cod e = 16371-1) Abnormal [facility] GLUCOSE (AUTOMATED)2022-05-01 21:53:04* Test Item Value Reference Range Interpretation Comme nts POCT GLU (test code = 8216801915) 124 mg/dL 70-110 H Lab Interpretation (test cod e = 40947-4) Abnormal [facility] GLUCOSE (AUTOMATED)2022-05-01 21:53:04* Test Item Value Reference Range Interpretation Comme nts POCT GLU (test code = 3690174886) 124 mg/dL 70-110 H Lab Interpretation (test cod e = 01197-2) Abnormal [facility] GLUCOSE (AUTOMATED)2022-05-01 16:49:23* Test Item Value Reference Range Interpretation Comme nts POCT GLU (test code = 3220181849) 101 mg/dL 70-110 Lab Interpretation (test cod e = 71891-2) Normal [facility] GLUCOSE (AUTOMATED)2022-05-01 16:49:23* Test Item Value Reference Range Interpretation Comme nts POCT GLU (test code = 1169571073) 101 mg/dL 70-110 Lab Interpretation (test cod e = 14655-6) Normal [facility] GLUCOSE (AUTOMATED)2022-05-01 12:48:25* Test Item Value Reference Range Interpretation Comme nts POCT GLU (test code = 4933796455) 127 mg/dL 70-110 H Lab Interpretation (test cod e = 74325-8) Abnormal [facility] GLUCOSE (AUTOMATED)2022-05-01 12:48:25* Test Item Value Reference Range Interpretation Comme nts POCT GLU (test code = 9930959502) 127 mg/dL 70-110 H Lab Interpretation (test cod e = 23732-1) Abnormal [facility] GLUCOSE (AUTOMATED)2022-05-01 00:26:54* Test Item Value Reference Range Interpretation Comme nts POCT GLU (test code = 5323100507) 116 mg/dL 70-110 H Lab Interpretation (test cod e = 90924-0) Abnormal [facility] GLUCOSE (AUTOMATED)2022-05-01 00:26:54* Test Item Value Reference Range Interpretation Comme nts POCT GLU (test code = 8757456261) 116 mg/dL 70-110 H Lab Interpretation (test cod e = 92502-0) [facility] 21:41:13* Test Item Value Reference Range Interpretation Comme nts POCT GLU (test code = 1521985225) 119 mg/dL 70-110 H Lab Interpretation (test cod e = 03319-9) Abnormal [facility] GLUCOSE (AUTOMATED)2022-04-30 21:41:13* Test Item Value Reference Range Interpretation Comme nts POCT GLU (test code = 9554502071) 119 mg/dL 70-110 H Lab Interpretation (test cod e = 80347-9) Abnormal [facility] GLUCOSE (AUTOMATED)2022-04-30 17:26:22* Test Item Value Reference Range Interpretation Comme nts POCT GLU (test code = 2125072950) 120 mg/dL 70-110 H Lab Interpretation (test cod e = 92309-6) Abnormal [facility] GLUCOSE (AUTOMATED)2022-04-30 17:26:22* Test Item Value Reference Range Interpretation Comme nts POCT GLU (test code = 5075860026) 120 mg/dL 70-110 H Lab Interpretation (test cod e = 68454-0) Abnormal [facility] GLUCOSE (AUTOMATED)2022-04-30 12:58:09* Test Item Value Reference Range Interpretation Comme nts POCT GLU (test code = 0291941063) 115 mg/dL 70-110 H Lab Interpretation (test cod e = 64946-9) Abnormal [facility] GLUCOSE (AUTOMATED)2022-04-30 12:58:09* Test Item Value Reference Range Interpretation Comme nts POCT GLU (test code = 5647471252) 115 mg/dL 70-110 H Lab Interpretation (test cod e = 77529-8) Abnormal [facility] GLUCOSE (AUTOMATED)2022-04-30 01:44:20* Test Item Value Reference Range Interpretation Comme nts POCT GLU (test code = 8229648526) 105 mg/dL 70-110 Lab Interpretation (test cod e = 31673-5) Normal [facility] GLUCOSE (AUTOMATED)2022-04-30 01:44:20* Test Item Value Reference Range Interpretation Comme nts POCT GLU (test code = 2125901375) 105 mg/dL 70-110 Lab Interpretation (test cod e = 00252-7) [facility] [id number] 07:19:13* Test Item Value Reference Range Interpretation Comme nts PREG SERUM (test code = 1611994676) Negative MARIPOSA (test code = MARIPOSA) Less than 10 IU/L. ?If low titer or ectopic is suspected, resubmit specimen in 48-72 hours. [facility], [id number] 07:19:13* Test Item Value Reference Range Interpretation Comme nts PREG SERUM (test code = 2018049409) Negative MARPIOSA (test code = MARIPOSA) Less than 10 IU/L. ?If low titer or ectopic is suspected, resubmit specimen in 48-72 hours. [facility]OS[facility]OGLOBIN (A1C)2022-04-29 04:04:26* Test Item Value Reference Range Interpretation Comme nts HGB A1C (test code = 4548-4) 6.1 % 4.0-5.7 H MARIPOSA (test code = MARIPOSA) Reference RangesNormal: <5.7%Prediabetes: 5.7 - 6.4%Diabetes: > 6.5% Lab Interpretation (test code = 96025-9) [facility]SED[facility]ATION [id number] 04:04:16* Test Item Value Reference Range Interpretation Comme nts ESR (test code = 23920-9) 48 See_Comment H [Automated messa ge] The system which generated this result transmitted reference range: 0 - 20 mm/HR. The reference range was not used to interpret this result as normal/abnormal. Lab Interpretation (test code = 77440-5) [facility]normal [facility]TR[facility] [id number] 00:57:38* Test Item Value Reference Range Interpretation Comme nts TROPONIN I (test code = 7469857030) 0.005 ng/mL <=0.034 MARIPOSA (test code = MARIPOSA) [...] of biotin. Lab Interpretation (test code = 95866-6) Normal [facility]MINAL [id number] 00:54:19* Test Item Value Reference Range Interpretation Comme nts NT-proBNP (test code = 4746768600) 53 pg/mL <=125 MARIPOSA (test code = MARIPOSA) Biotin has been reported to cause a negative bias, interpret results relative to patient's use of biotin. Lab Interpretation (test code = 98235-9) [facility]2023-[facility]-17 00:46:15* Test Item Value Reference Range Interpretation Comme nts MAGNESIUM (test code = 3014125862) 1.7 mg/dL 1.7-2.4 Lab Interpretation (test cod e = 32109-7) [facility] METABOLIC PAN[facility] (28466)2022-04-29 00:45:55* Test Item Value Reference Range Interpretation Comme nts NA (test code = 4317539758) 136 mmol/L 135-145 K (test code = 7799429998) 5.5 mmol/L 3.5-5.0 H CL (test code = 3058137242) 98 mmol/L 98-108 CO2 TOTAL (test code = 8350704011) 28 mmol/L 23-31 AGAP (test code = 6777851976) 10 2-16 BUN (test code = 2650440121) 12 mg/dL 7-23 GLUCOSE (test code = 3509581305) 87 mg/dL 70-110 CREATININE (test code = 9262938059) 0.43 mg/dL 0.50-1.04 L TOTAL BILI (test code = 2472913547) 0.8 mg/dL 0.1-1.1 CALCIUM (test code = 0211986635) 9.1 mg/dL 8.6-10.6 T PROTEIN (test code = 3700922065) 8.8 g/dL 6.3-8.2 H ALBUMIN (test code = 3788127700) 4.5 g/dL 3.5-5.0 ALK PHOS (test code = 0099849810) 101 U/L 34-122 ALTv (test code = 1742-6) 19 U/L 5-35 AST(SGOT) (test code = 0418813708) 34 U/L 13-40 eGFR (test code = 3877351462) 160.3 mL/min/1.73m2 MARIPOSA (test code = MARIPOSA) Association [...] imaging tests). Lab Interpretation (test code = 30818-7) [facility] 00:45:39* Test Item Value Reference Range Interpretation Comme [facility] LIPASE (test code = 9122436717) 93 U/L 0-220 Lab Interpretation (test cod e = 14226-6) [facility] [id number] 00:36:00* Test Item Value Reference Range Interpretation Comme nts POCT PREG (test code = 1605) negative On board controls acceptable with C Line (test code = 3574) present POCT PREG LOT # (test code = 3575) [id number] POCT PREG TEST DATE ( test code = 3576) 07/14/2023 Lab Interpretation (test cod e = 48831-4) Normal [facility] WITH [id number] 00:32:18* Test Item Value Reference Range Interpretation Comme nts WBC (test code = 6690-2) 8.20 See_Comment [Automated messa ge] The system which generated this result transmitted reference range: 4.30 - 11.10 10*3/?L. The reference range was not used to interpret this result as normal/abnormal. RBC (test code = 789-8) 4.73 See_Comment [Automated messa ge] The system which generated this result transmitted reference range: 3.93 - 5.25 10*6/?L. The reference range was not used to interpret this result as normal/abnormal. HGB (test code = 718-7) 12.3 g/dL 11.6-15.0 HCT (test code = 4544-3) 40.0 % 35.7-45.2 MCV (test code = 787-2) 84.6 fL 80.6-95.5 MCH (test code = 785-6) 26.0 pg 25.9-32.8 MCHC (test code = 786-4) 30.8 g/dL 31.6-35.1 L RDW-SD (test code = 16955-7) 45.6 fL 39.0-49.9 RDW-CV (test code = 788-0) 14.7 % 12.0-15.5 PLT (test code = 777-3) 221 See_Comment [Automated messa ge] The system which generated this result transmitted reference range: 166 - 358 10*3/?L. The reference range was not used to interpret this result as normal/abnormal. MPV (test code = 96712-3) 10.1 fL 9.5-12.9 NRBC/100 WBC (test code = 3160613837) 0.0 See_Comment [Automated [employer] ssage] The system which generated this result transmitted reference range: 0.0 - 10.0 /100 WBCs. The reference range was not used to interpret this result as normal/abnormal. NRBC x10^3 (test code = 6932238757) See_Comment [Automated messa ge] The system which generated this result transmitted reference range: 10*3/?L. The reference range was not used to interpret this result as normal/abnormal. GRAN MAT (NEUT) % (test code = 770-8) 56.7 % IMM GRAN % (test code = 3664547227) 0.20 % LYMPH % (test code = 736-9) 29.3 % MONO % (test code = 5905-5) 6.7 % EOS % (test code = 713-8) 6.7 % BASO % (test code = 706-2) 0.4 % GRAN MAT x10^3(ANC) (test code = 5005675844) 4.65 10*3/uL 1.88-7.09 IMM GRAN x10^3 (test code = 1992916643) 0.00-0.06 LYMPH x10^3 (test code = 731-0) 2.40 10*3/uL 1.32-3.29 MONO x10^3 (test code = 742-7) 0.55 10*3/uL 0.33-0.92 EOS x10^3 (test code = 711-2) 0.55 10*3/uL 0.03-0.39 H BASO x10^3 (test code = 704-7) 0.03 10*3/uL 0.01-0.07 Lab Interpretation (test code = 56351-5) Abnormal [facility] METABOLIC PANEL (NA, K, CL, CO2, GLUCOSE, BUN, CREATININE, CA)2022-01-16 15:24:17* Test Item Value Reference Range Interpretation Comme nts NA (test code = 7284354598) 137 mmol/L 135-145 K (test code = 0392190073) 4.4 mmol/L 3.5-5.0 CL (test code = 9891006840) 100 mmol/L 98-108 CO2 TOTAL (test code = 8149706023) 28 mmol/L 23-31 AGAP (test code = 7277889041) 2-16 BUN (test code = 8008235532) 14 mg/dL 7-23 GLUCOSE (test code = 7388824302) 121 mg/dL 70-110 H CREATININE (test code = 7228167883) 0.61 mg/dL 0.50-1.04 CALCIUM (test code = 2976550309) 8.7 mg/dL 8.6-10.6 eGFR (test code = 8908290422) mL/min/1.73m2 MARIPOSA (test code = MARIPOSA) Association [...] imaging tests). Lab Interpretation (test code = 21638-8) Abnormal [facility] METABOLIC PANEL (NA, K, CL, CO2, GLUCOSE, BUN, CREATININE, CA)2022-01-16 15:24:17* Test Item Value Reference Range Interpretation Comme nts NA (test code = 4235034370) 137 mmol/L 135-145 K (test code = 8856183344) 4.4 mmol/L 3.5-5.0 CL (test code = 0853709239) 100 mmol/L 98-108 CO2 TOTAL (test code = 4155226052) 28 mmol/L 23-31 AGAP (test code = 7969277970) 2-16 BUN (test code = 2413270203) 14 mg/dL 7-23 GLUCOSE (test code = 3143217249) 121 mg/dL 70-110 H CREATININE (test code = 5776204914) 0.61 mg/dL 0.50-1.04 CALCIUM (test code = 0280245269) 8.7 mg/dL 8.6-10.6 eGFR (test code = 1588622435) mL/min/1.73m2 MARIPOSA (test code = MARIPOSA) Association [...] imaging tests). Lab Interpretation (test code = 24383-1) Abnormal [facility] GLUCOSE (AUTOMATED)2022-01-15 18:40:12* Test Item Value Reference Range Interpretation Comme nts POCT GLU (test code = 5165271861) 182 mg/dL 70-110 H Lab Interpretation (test cod e = 43876-3) Abnormal [facility] GLUCOSE (AUTOMATED)2022-01-15 18:40:12* Test Item Value Reference Range Interpretation Comme nts POCT GLU (test code = 0442424414) 182 mg/dL 70-110 H Lab Interpretation (test cod e = 02096-7) [facility] [id number] 12:21:06* Test Item Value Reference Range Interpretation Comme nts PHOSPHORUS (test code = 7567907819) 5.6 mg/dL 2.5-5.0 H Lab Interpretation (test cod e = 90765-8) Abnormal [facility] GLUCOSE (AUTOMATED)2021-10-01 16:55:39* Test Item Value Reference Range Interpretation Comme nts POCT GLU (test code = 7603052608) 221 mg/dL 70-110 H Lab Interpretation (test cod e = 43949-1) Abnormal [facility] GLUCOSE (AUTOMATED)2021-10-01 12:39:20* Test Item Value Reference Range Interpretation Comme nts POCT GLU (test code = 0735845426) 185 mg/dL 70-110 H Lab Interpretation (test cod e = 25370-4) [facility]normal [facility]Magnesium [id number] 11:06:03* Test Item Value Reference Range Interpretation Comme nts MAGNESIUM (test code = 6097216705) 2.0 mg/dL 1.7-2.4 Lab Interpretation (test cod e = 96761-7) Normal [facility] Metabolic Panel (NA, K, CL, CO2, GLUCOSE, BUN, CREATININE, CA)2021-10-01 11:05:43* Test Item Value Reference Range Interpretation Comme nts NA (test code = 1795687144) 139 mmol/L 135-145 K (test code = 5562953881) 4.5 mmol/L 3.5-5 CL (test code = 4813821883) 100 mmol/L 98-108 CO2 TOTAL (test code = 8661808501) 33 mmol/L 23-31 H AGAP (test code = 0786606670) 2-16 BUN (test code = 1962278565) 11 mg/dL 7-23 GLUCOSE (test code = 4214814238) 197 mg/dL 70-110 H CREATININE (test code = 1110010813) 0.42 mg/dL 0.5-1.04 L CALCIUM (test code = 9181066283) 8.8 mg/dL 8.6-10.6 eGFR (test code = 5826928281) mL/min/1.73m2 MARIPOSA (test code = MARIPOSA) Association [...] imaging tests). Lab Interpretation (test code = 71308-4) [facility] [id number] 11:05:23* Test Item Value Reference Range Interpretation Comme nts PHOSPHORUS (test code = 8727227760) 3.9 mg/dL 2.5-5 Lab Interpretation (test cod e = 15566-3) [facility][id number] 11:00:23* Test Item Value Reference Range Interpretation Comments D-DIMER (test code = 6745049621) See_Comment H [Automated message] The system which generated this result transmitted reference range: <0.41 ?g/mL (FEU). The reference range was not used to interpret this result as normal/abnormal. MARIPOSA (test code = MARIPOSA) This test may be used in conjunction with a clinical pretest [...] context, in forming a diagnosis. Lab Interpretation (test code = 45350-4) Abnormal [facility] with Qfxslatrewft8224-85-18 10:20:16* Test Item Value Reference Range Interpretation Comme nts WBC (test code = 6690-2) See_Comment [Automated [employer]] The system which generated this result transmitted reference range: 4.30 - 11.10 10*3/?L. The reference range was not used to interpret this result as normal/abnormal. RBC (test code = 789-8) See_Comment [Automated [employer]] The system which generated this result transmitted reference range: 3.93 - 5.25 10*6/?L. The reference range was not used to interpret this result as normal/abnormal. HGB (test code = 718-7) 11.8 g/dL 11.6-15 HCT (test code = 4544-3) 39.3 % 35.7-45.2 MCV (test code = 787-2) 86.9 fL 80.6-95.5 MCH (test code = 785-6) 26.1 pg 25.9-32.8 MCHC (test code = 786-4) 30.0 g/dL 31.6-35.1 L RDW-SD (test code = 74205-2) 50.0 fL 39-49.9 H RDW-CV (test code = 788-0) 15.9 % 12-15.5 H PLT (test code = 777-3) See_Comment [Automated messa ge] The system which generated this result transmitted reference range: 166 - 358 10*3/?L. The reference range was not used to interpret this result as normal/abnormal. MPV (test code = 78087-3) 10.4 fL 9.5-12.9 NRBC/100 WBC (test code = 2894108892) See_Comment [Automated [employer] ssage] The system which generated this result transmitted reference range: 0.0 - 10.0 /100 WBCs. The reference range was not used to interpret this result as normal/abnormal. NRBC x10^3 (test code = 6343073256) See_Comment [Automated messa ge] The system which generated this result transmitted reference range: 10*3/?L. The reference range was not used to interpret this result as normal/abnormal. GRAN MAT (NEUT) % (test code = 770-8) 86.5 % IMM GRAN % (test code = 4235920511) 1.80 % LYMPH % (test code = 736-9) 9.5 % MONO % (test code = 5905-5) 1.9 % EOS % (test code = 713-8) 0.1 % BASO % (test code = 706-2) 0.2 % GRAN MAT x10^3(ANC) (test code = 7079734347) 8.33 10*3/uL 1.88-7.09 H IMM GRAN x10^3 (test code = 6382781056) 0.17 10*3/uL 0-0.06 H LYMPH x10^3 (test code = 731-0) 0.91 10*3/uL 1.32-3.29 L MONO x10^3 (test code = 742-7) 0.18 10*3/uL 0.33-0.92 L EOS x10^3 (test code = 711-2) 0.03-0.39 L BASO x10^3 (test code = 704-7) 0.01-0.07 Lab Interpretation (test code = 69173-4) Abnormal [facility] GLUCOSE (AUTOMATED)2021-10-01 09:03:23* Test Item Value Reference Range Interpretation Comme [facility] POCT GLU (test code = 3681192308) 180 mg/dL 70-110 H Lab Interpretation (test cod e = 48737-6) Abnormal [facility] GLUCOSE (AUTOMATED)2021-10-01 02:44:00* Test Item Value Reference Range Interpretation Comme [facility] POCT GLU (test code = 8415733001) 307 mg/dL 70-110 H Lab Interpretation (test cod e = 00852-0) [facility] 01:56:57* Test Item Value Reference Range Interpretation Comme [facility] HGB A1C (test code = 4548-4) 7.3 % 4-5.7 H MARIPOSA (test code = MARIPOSA) Reference RangesNormal: <5.7%Prediabetes: 5.7 - 6.4%Diabetes: > 6.5% Lab Interpretation (test code = 13390-6) [facility] [place] [facility].2021-09-30 22:42:07* Test Item Value Reference Range Interpretation Comme [facility] PH (test code = 2) 7.35-7.45 PCO2 (test code = 7859872814) See_Comment H [Automated messa ge] The system which generated this result transmitted reference range: 35 - 45 mmHg. The reference range was not used to interpret this result as normal/abnormal. PO2 (test code = 1659888507) See_Comment [Automated messa ge] The system which generated this result transmitted reference range: 80 - 100 mmHg. The reference range was not used to interpret this result as normal/abnormal. HCO3 (test code = 2033650731) See_Comment H [Automated messa ge] The system which generated this result transmitted reference range: 22 - 26 mEq/L. The reference range was not used to interpret this result as normal/abnormal. BE (test code = 8859451598) See_Comment [Automated messa ge] The system which generated this result transmitted reference range: -3.0 - 3.0 mEq/L. The reference range was not used to interpret this result as normal/abnormal. Lab Interpretation (test code = 73656-0) [facility] [id number] 21:29:19* Test Item Value Reference Range Interpretation Comments TROPONIN I (test code = 1646094618) 0.001 ng/mL See_Comment [Automated message] The system which generated this result transmitted reference range: <=0.034. The reference range was not used to interpret this result as normal/abnormal. MARIPOSA (test code = MARIPOSA) Reference (Normal) [...] of biotin. Lab Interpretation (test code = 46072-2) [facility] [id number] 21:26:16* Test Item Value Reference Range Interpretation Comme nts NT-proBNP (test code = 2128465768) 45 pg/mL See_Comment [Automated message] The system which generated this result transmitted reference range: <=125. The reference range was not used to interpret this result as normal/abnormal. MARIPOSA (test code = MARIPOSA) Biotin has been reported to cause a negative bias, interpret results relative to patient's use of biotin. Lab Interpretation (test code = 05544-6) [facility] (03272)2021-09-30 21:18:56* Test Item Value Reference Range Interpretation Comme nts NA (test code = 5102925754) 139 mmol/L 135-145 K (test code = 7777365792) 4.3 mmol/L 3.5-5 CL (test code = 7855446002) 99 mmol/L 98-108 CO2 TOTAL (test code = 1432521000) 31 mmol/L 23-31 AGAP (test code = 8740023366) 2-16 BUN (test code = 9765275574) 12 mg/dL 7-23 GLUCOSE (test code = 7612790269) 140 mg/dL 70-110 H CREATININE (test code = 7521128414) 0.40 mg/dL 0.5-1.04 L TOTAL BILI (test code = 2021886720) 0.3 mg/dL 0.1-1.1 CALCIUM (test code = 0914222377) 9.3 mg/dL 8.6-10.6 T PROTEIN (test code = 3652269191) 7.6 g/dL 6.3-8.2 ALBUMIN (test code = 3197211297) 4.5 g/dL 3.5-5 ALK PHOS (test code = 3159720294) 115 U/L 34-122 ALTv (test code = 1742-6) 24 U/L 5-35 AST(SGOT) (test code = 5544843285) 26 U/L 13-40 eGFR (test code = 0425494502) mL/min/1.73m2 MARIPOSA (test code = MARIPOSA) Association [...] imaging tests). Lab Interpretation (test code = 06660-6) Abnormal [facility] WITH [id number] 21:08:31* Test Item Value Reference Range Interpretation Comme nts WBC (test code = 6690-2) See_Comment [Automated messa ge] The system which generated this result transmitted reference range: 4.30 - 11.10 10*3/?L. The reference range was not used to interpret this result as normal/abnormal. RBC (test code = 789-8) See_Comment [Automated messa ge] The system which generated this result transmitted reference range: 3.93 - 5.25 10*6/?L. The reference range was not used to interpret this result as normal/abnormal. HGB (test code = 718-7) 12.7 g/dL 11.6-15 HCT (test code = 4544-3) 41.3 % 35.7-45.2 MCV (test code = 787-2) 86.8 fL 80.6-95.5 MCH (test code = 785-6) 26.7 pg 25.9-32.8 MCHC (test code = 786-4) 30.8 g/dL 31.6-35.1 L RDW-SD (test code = 27562-3) 50.0 fL 39-49.9 H RDW-CV (test code = 788-0) 16.0 % 12-15.5 H PLT (test code = 777-3) See_Comment [Automated [employer]] The system which generated this result transmitted reference range: 166 - 358 10*3/?L. The reference range was not used to interpret this result as normal/abnormal. MPV (test code = 99393-6) 10.3 fL 9.5-12.9 NRBC/100 WBC (test code = 5073494907) See_Comment [Automated [employer] ssage] The system which generated this result transmitted reference range: 0.0 - 10.0 /100 WBCs. The reference range was not used to interpret this result as normal/abnormal. NRBC x10^3 (test code = 8176948915) See_Comment [Automated messa ge] The system which generated this result transmitted reference range: 10*3/?L. The reference range was not used to interpret this result as normal/abnormal. GRAN MAT (NEUT) % (test code = 770-8) 67.8 % IMM GRAN % (test code = 8625520162) 0.80 % LYMPH % (test code = 736-9) 19.8 % MONO % (test code = 5905-5) 5.0 % EOS % (test code = 713-8) 6.1 % BASO % (test code = 706-2) 0.5 % GRAN MAT x10^3(ANC) (test code = 9531001323) 6.59 10*3/uL 1.88-7.09 IMM GRAN x10^3 (test code = 5883700711) 0.08 10*3/uL 0-0.06 H LYMPH x10^3 (test code = 731-0) 1.92 10*3/uL 1.32-3.29 MONO x10^3 (test code = 742-7) 0.49 10*3/uL 0.33-0.92 EOS x10^3 (test code = 711-2) 0.59 10*3/uL 0.03-0.39 H BASO x10^3 (test code = 704-7) 0.05 10*3/uL 0.01-0.07 Lab Interpretation (test code = 87155-1) [facility]normal [facility]-[id number] 05:08:21* Test Item Value Reference Range Interpretation Comme nts NT-proBNP (test code = 87900) <50 PG/ML SEE BELOW If NT-ProBNP is less than 300 PG/ML, heart failure is unlikely for allages. Age.................Heart Failure Likely <50 Years...........>=450 PG/ML 50-75 Years.........>=900 PG/ML > 75 Years..........>=1800 PG/ML Methodology: Chiral [employer] Lewis Electrochemiluminescense Immunoassay UNLESS OTHERWISE INDICATED, ALL TESTING PERFORMED [facility] [address] [place] [address] SECURITY INSTALLATION TECHNICIAN: TIFFANY ALFREDO M.D. CLIA NUMBER [id number] [place]. [id number] 00:00:00* Test Item Value Reference Range Interpretation Comme nts NT-proBNP (test code = 30783) <50 PG/ML Tr [id number] 00:00:00* Test Item Value Reference Range Interpretation Comme nts NT-proBNP (test code = 92295) <50 PG/ML [id number] 00:00:00* Test Item Value Reference Range Interpretation Comme nts NT-proBNP (test code = 01056) <50 PG/ML [id number] 00:00:00* Test Item Value Reference Range Interpretation Comme nts NT-proBNP (test code = 52605) <50 PG/ML Tr [id number] 00:00:00* Test Item Value Reference Range Interpretation Comme nts NT-proBNP (test code = 72976) <50 PG/ML [id number] 00:00:00* Test Item Value Reference Range Interpretation Comme nts NT-proBNP (test code = 77363) <50 PG/ML VITAMIN D, 25 [id number] 05:02:19* Test Item Value Reference Range Interpretation Comme nts VITAMIN D, 25 OH (test code = 4958) 13 NG/ML SEE BELOW L NOTE: 25-HYDR OXYVITAMIN D ASSAY INCLUDES 25-HYDROXYVITAMIN D2 AND D3. METHODOLOGY IS CHEMILUMINESCENT IMMUNOASSAY. INTERPRETIVE RANGES PEDIATRIC (<17 YEARS) . . . . . . . . . . . NG/ML 20-100ADULT: INSUFFICIENT . . . . . . . . . . . . . . NG/ML <20 SUBOPTIMAL . . . . . . . . . . . . . . . NG/ML 20-29 OPTIMAL . . . . . . . . . . . . . . . . . NG/ML 30-100 UNLESS OTHERWISE INDICATED, ALL TESTING PERFORMED [facility] [address] [place] [address] SECURITY INSTALLATION TECHNICIAN: TIFFANY ALFREDO M.D. CLIA NUMBER [id number] [place]. [id number] VITAMIN D, 25 [id number] 00:00:00* Test Item Value Reference Range Interpretation Comme nts VITAMIN D, 25 OH (test code = 4958) 13 NG/ML Tr SamuelVITAMIN D, 25 [id number] 00:00:00* Test Item Value Reference Range Interpretation Comme nts VITAMIN D, 25 OH (test code = 4958) 13 NG/ML Tr SamuelVITAMIN D, 25 [id number] 00:00:00* Test Item Value Reference Range Interpretation Comme nts VITAMIN D, 25 OH (test code = 4958) 13 NG/ML VITAMIN D, 25 [id number] 00:00:00* Test Item Value Reference Range Interpretation Comme nts VITAMIN D, 25 OH (test code = 4958) 13 NG/ML VITAMIN D, 25 [id number] 00:00:00* Test Item Value Reference Range Interpretation Comme nts VITAMIN D, 25 OH (test code = 4958) 13 NG/ML VITAMIN D, 25 [id number] 00:00:00* Test Item Value Reference Range Interpretation Comme nts VITAMIN D, 25 OH (test code = 4958) 13 NG/ML VITAMIN D, 25 [id number] 00:00:00* Test Item Value Reference Range Interpretation Comme nts VITAMIN D, 25 OH (test code = 4958) 13 NG/ML TSH, THIRD [id number] 02:31:01* Test Item Value Reference Range Interpretation Comme nts TSH, THIRD GENERATION (test code = 2821) 0.564 UIU/ML 0.400-4.100 [id number] 00:00:00* Test Item Value Reference Range Interpretation Comme nts TSH, THIRD GENERATION (test code = 2821) 0.564 UIU/ML Tr [id number] 00:00:00* Test Item Value Reference Range Interpretation Comme nts TSH, THIRD GENERATION (test code = 2821) 0.564 UIU/ML Tr [id number] 00:00:00* Test Item Value Reference Range Interpretation Comme nts TSH, THIRD GENERATION (test code = 2821) 0.564 UIU/ML [id number] 00:00:00* Test Item Value Reference Range Interpretation Comme nts TSH, THIRD GENERATION (test code = 2821) 0.564 UIU/ML [id number] 00:00:00* Test Item Value Reference Range Interpretation Comme nts TSH, THIRD GENERATION (test code = 2821) 0.564 UIU/ML [id number] 00:00:00* Test Item Value Reference Range Interpretation Comme nts TSH, THIRD GENERATION (test code = 2821) 0.564 UIU/ML [id number] 00:00:00* Test Item Value Reference Range Interpretation Comme nts TSH, THIRD GENERATION (test code = 2821) 0.564 UIU/ML LIPID [id number] 23:49:04* Test Item Value Reference Range Interpretation Comme nts CHOLESTEROL (test code = 2210) 176 MG/DL <200 TRIGLYCERIDES (test code = 2232) 120 MG/DL <150 HDL CHOLESTEROL (test code = 2220) 48 MG/DL >39 CALC LDL CHOL (test code = 7) 106 MG/DL <100 H NOTE: CALCULATED LDL IS BASED ON OPAL-MARROQUIN METHOD WHICHINCLUDES ADJUSTABLE TRIGLYCERIDE:VLDL CHOLESTEROL RATIO.THIS FACTOR VARIES BY MEASURED TRIGLYCERIDE AND NON-HDLCHOLESTEROL CONCENTRATIONS WITH INCREASED CALCULATED LDL SEENIN HIGHER TRIGLYCERIDE OR LOWER NON-HDL SPECIMENS. FOR MOREINFORMATION, SEE CLIENT ANNOUNCEMENT AT [email or web address] RISK RATIO LDL/HDL (test code = 223) 2.21 RATIO <3.22 COMPREHENSIVE METABOLIC [id number] 23:49:04* Test Item Value Reference Range Interpretation Comme nts GLUCOSE (test code = 7) 98 MG/DL 70-99 BUN (test code = 2207) 6 MG/DL 6-20 CREATININE (test code = 2214) 0.40 MG/DL 0.60-1.30 L eGFR (2020 CKD-EPI) (test code = 75212) 126 ML/MIN/1.73 >60 CALC BUN/CREAT (test code = 2235) 15 RATIO 6-28 SODIUM (test code = 223) 140 MEQ/L 133-146 POTASSIUM (test code = 2228) 4.1 MEQ/L 3.5-5.4 CHLORIDE (test code = 2215) 99 MEQ/L 95-107 CARBON DIOXIDE (test code = 6) 26 MEQ/L 19-31 CALCIUM (test code = 2209) 9.2 MG/DL 8.5-10.5 PROTEIN, TOTAL (test code = 2228) 7.4 G/DL 6.1-8.3 ALBUMIN (test code = 2200) 4.3 G/DL 3.5-5.2 CALC GLOBULIN (test code = 2240) 3.1 G/DL 1.9-3.7 CALC A/G RATIO (test code = 223) 1.4 RATIO 1.0-2.6 BILIRUBIN, TOTAL (test code = 2206) 0.3 MG/DL See_Comment [Automated me ssage] The system which generated this result transmitted reference range: <=1.2. The reference range was not used to interpret this result as normal/abnormal. ALKALINE PHOSPHATASE (test code = 2203) 118 U/L 40-113 H AST (test code = 2217) 14 U/L 9-40 ALT (test code = 2218) 15 U/L 5-40 HEMOGLOBIN [id number] 04:29:07* Test Item Value Reference Range Interpretation Comme [facility] HEMOGLOBIN A1c (test code = 14256) 7.5 % 4.2-5.6 H [employer] GUIDELINES FOR HGB A1C: PREDIABETES/INCREASED RISK . . . . . . . 5.7-6.4% DIAGNOSIS OF DIABETES . . . . . . . . . >=6.5% WITH CONFIRMATION OR APPROPRIATE SYMPTOMS NOTE: ASSAY MAY BE AFFECTED BY HEMOGLOBINOPATHIES (SICKLE CELL ANEMIA, S-C DISEASE, OTHERS) OR ARTIFICIALLY LOWERED BY DECREASED RED CELL SURVIVAL (HEMOLYTIC ANEMIAS, BLOOD LOSS, ETC.). CONSIDER ALTERNATE TESTING OR LABORATORY CONSULTATION. COMPREHENSIVE METABOLIC [id number] 00:00:00* Test Item Value Reference Range Interpretation Comme nts GLUCOSE (test code = 7) 98 MG/DL BUN (test code = 8) 6 MG/DL CREATININE (test code = 2214) 0.40 MG/DL eGFR (2020 CKD-EPI) (test code = 64846) 126 ML/MIN/1.73 CALC BUN/CREAT (test code = 223) 15 RATIO SODIUM (test code = 2231) 140 MEQ/L POTASSIUM (test code = 2228) 4.1 MEQ/L CHLORIDE (test code = 2215) 99 MEQ/L CARBON DIOXIDE (test code = 2206) 26 MEQ/L CALCIUM (test code = 2209) 9.2 MG/DL PROTEIN, TOTAL (test code = 2229) 7.4 G/DL ALBUMIN (test code = 2201) 4.3 G/DL CALC GLOBULIN (test code = 2240) 3.1 G/DL CALC A/G RATIO (test code = 2234) 1.4 RATIO BILIRUBIN, TOTAL (test code = 2207) 0.3 MG/DL ALKALINE PHOSPHATASE (test code = 2204) 118 U/L AST (test code = 2218) 14 U/L ALT (test code = 2219) 15 U/L Tr SamuelLIPID [id number] 00:00:00* Test Item Value Reference Range Interpretation Comme nts CHOLESTEROL (test code = 2210) 176 MG/DL TRIGLYCERIDES (test code = 2232) 120 MG/DL HDL CHOLESTEROL (test code = 2220) 48 MG/DL CALC LDL CHOL (test code = 2237) 106 MG/DL RISK RATIO LDL/HDL (test cod e = 2238) 2.21 RATIO Tr SamuelHEMOGLOBIN [id number] 00:00:00* Test Item Value Reference Range Interpretation Comme nts HEMOGLOBIN A1c (test code = 50734) 7.5 % Tr SamuelCOMPREHENSIVE METABOLIC [id number] 00:00:00* Test Item Value Reference Range Interpretation Comme nts GLUCOSE (test code = 2217) 98 MG/DL BUN (test code = 2208) 6 MG/DL CREATININE (test code = 2214) 0.40 MG/DL eGFR (2020 CKD-EPI) (test code = 03696) 126 ML/MIN/1.73 CALC BUN/CREAT (test code = 2235) 15 RATIO SODIUM (test code = 2231) 140 MEQ/L POTASSIUM (test code = 2228) 4.1 MEQ/L CHLORIDE (test code = 2215) 99 MEQ/L CARBON DIOXIDE (test code = 2206) 26 MEQ/L CALCIUM (test code = 2209) 9.2 MG/DL PROTEIN, TOTAL (test code = 2229) 7.4 G/DL ALBUMIN (test code = 2201) 4.3 G/DL CALC GLOBULIN (test code = 2240) 3.1 G/DL CALC A/G RATIO (test code = 2234) 1.4 RATIO BILIRUBIN, TOTAL (test code = 2207) 0.3 MG/DL ALKALINE PHOSPHATASE (test code = 2204) 118 U/L AST (test code = 2218) 14 U/L ALT (test code = 2219) 15 U/L Tr Hall AustinHEMOGLOBIN [id number] 00:00:00* Test Item Value Reference Range Interpretation Comme nts HEMOGLOBIN A1c (test code = 91928) 7.5 % COMPREHENSIVE METABOLIC [id number] 00:00:00* Test Item Value Reference Range Interpretation Comme nts GLUCOSE (test code = 2217) 98 MG/DL BUN (test code = 2208) 6 MG/DL CREATININE (test code = 2214) 0.40 MG/DL eGFR (2020 CKD-EPI) (test code = 24677) 126 ML/MIN/1.73 CALC BUN/CREAT (test code = 2235) 15 RATIO SODIUM (test code = 2231) 140 MEQ/L POTASSIUM (test code = 2228) 4.1 MEQ/L CHLORIDE (test code = 2215) 99 MEQ/L CARBON DIOXIDE (test code = 2206) 26 MEQ/L CALCIUM (test code = 2209) 9.2 MG/DL PROTEIN, TOTAL (test code = 2229) 7.4 G/DL ALBUMIN (test code = 2201) 4.3 G/DL CALC GLOBULIN (test code = 2240) 3.1 G/DL CALC A/G RATIO (test code = 2234) 1.4 RATIO BILIRUBIN, TOTAL (test code = 2207) 0.3 MG/DL ALKALINE PHOSPHATASE (test code = 2204) 118 U/L AST (test code = 2218) 14 U/L ALT (test code = 2219) 15 U/L LIPID [id number] 00:00:00* Test Item Value Reference Range Interpretation Comme nts CHOLESTEROL (test code = 2210) 176 MG/DL TRIGLYCERIDES (test code = 2232) 120 MG/DL HDL CHOLESTEROL (test code = 2220) 48 MG/DL CALC LDL CHOL (test code = 2237) 106 MG/DL RISK RATIO LDL/HDL (test cod e = 2238) 2.21 RATIO HEMOGLOBIN [id number] 00:00:00* Test Item Value Reference Range Interpretation Comme nts HEMOGLOBIN A1c (test code = 30252) 7.5 % COMPREHENSIVE METABOLIC [id number] 00:00:00* Test Item Value Reference Range Interpretation Comme nts GLUCOSE (test code = 2217) 98 MG/DL BUN (test code = 2208) 6 MG/DL CREATININE (test code = 2214) 0.40 MG/DL eGFR (2020 CKD-EPI) (test code = 99039) 126 ML/MIN/1.73 CALC BUN/CREAT (test code = 2235) 15 RATIO SODIUM (test code = 2231) 140 MEQ/L POTASSIUM (test code = 2228) 4.1 MEQ/L CHLORIDE (test code = 2215) 99 MEQ/L CARBON DIOXIDE (test code = 2206) 26 MEQ/L CALCIUM (test code = 2209) 9.2 MG/DL PROTEIN, TOTAL (test code = 2229) 7.4 G/DL ALBUMIN (test code = 2201) 4.3 G/DL CALC GLOBULIN (test code = 2240) 3.1 G/DL CALC A/G RATIO (test code = 2234) 1.4 RATIO BILIRUBIN, TOTAL (test code = 2207) 0.3 MG/DL ALKALINE PHOSPHATASE (test code = 2204) 118 U/L AST (test code = 2218) 14 U/L ALT (test code = 2219) 15 U/L LIPID [id number] 00:00:00* Test Item Value Reference Range Interpretation Comme nts CHOLESTEROL (test code = 2210) 176 MG/DL TRIGLYCERIDES (test code = 2232) 120 MG/DL HDL CHOLESTEROL (test code = 2220) 48 MG/DL CALC LDL CHOL (test code = 2237) 106 MG/DL RISK RATIO LDL/HDL (test cod e = 2238) 2.21 RATIO Tr F AustinLIPID [id number] 00:00:00* Test Item Value Reference Range Interpretation Comme nts CHOLESTEROL (test code = 2210) 176 MG/DL TRIGLYCERIDES (test code = 2232) 120 MG/DL HDL CHOLESTEROL (test code = 2220) 48 MG/DL CALC LDL CHOL (test code = 2237) 106 MG/DL RISK RATIO LDL/HDL (test cod e = 2238) 2.21 RATIO HEMOGLOBIN [id number] 00:00:00* Test Item Value Reference Range Interpretation Comme nts HEMOGLOBIN A1c (test code = 62450) 7.5 % COMPREHENSIVE METABOLIC [id number] 00:00:00* Test Item Value Reference Range Interpretation Comme nts GLUCOSE (test code = 2217) 98 MG/DL BUN (test code = 2208) 6 MG/DL CREATININE (test code = 2214) 0.40 MG/DL eGFR (2020 CKD-EPI) (test code = 31324) 126 ML/MIN/1.73 CALC BUN/CREAT (test code = 2235) 15 RATIO SODIUM (test code = 2231) 140 MEQ/L POTASSIUM (test code = 2228) 4.1 MEQ/L CHLORIDE (test code = 2215) 99 MEQ/L CARBON DIOXIDE (test code = 2206) 26 MEQ/L CALCIUM (test code = 2209) 9.2 MG/DL PROTEIN, TOTAL (test code = 2229) 7.4 G/DL ALBUMIN (test code = 2201) 4.3 G/DL CALC GLOBULIN (test code = 2240) 3.1 G/DL CALC A/G RATIO (test code = 2234) 1.4 RATIO BILIRUBIN, TOTAL (test code = 2207) 0.3 MG/DL ALKALINE PHOSPHATASE (test code = 2204) 118 U/L AST (test code = 2218) 14 U/L ALT (test code = 2219) 15 U/L LIPID [id number] 00:00:00* Test Item Value Reference Range Interpretation Comme nts CHOLESTEROL (test code = 2210) 176 MG/DL TRIGLYCERIDES (test code = 2232) 120 MG/DL HDL CHOLESTEROL (test code = 2220) 48 MG/DL CALC LDL CHOL (test code = 2237) 106 MG/DL RISK RATIO LDL/HDL (test cod e = 2238) 2.21 RATIO HEMOGLOBIN [id number] 00:00:00* Test Item Value Reference Range Interpretation Comme nts HEMOGLOBIN A1c (test code = 06038) 7.5 % COMPREHENSIVE METABOLIC [id number] 00:00:00* Test Item Value Reference Range Interpretation Comme nts GLUCOSE (test code = 2217) 98 MG/DL BUN (test code = 2208) 6 MG/DL CREATININE (test code = 2214) 0.40 MG/DL eGFR (2020 CKD-EPI) (test code = 47176) 126 ML/MIN/1.73 CALC BUN/CREAT (test code = 2235) 15 RATIO SODIUM (test code = 2231) 140 MEQ/L POTASSIUM (test code = 2228) 4.1 MEQ/L CHLORIDE (test code = 2215) 99 MEQ/L CARBON DIOXIDE (test code = 2206) 26 MEQ/L CALCIUM (test code = 2209) 9.2 MG/DL PROTEIN, TOTAL (test code = 2229) 7.4 G/DL ALBUMIN (test code = 2201) 4.3 G/DL CALC GLOBULIN (test code = 2240) 3.1 G/DL CALC A/G RATIO (test code = 2234) 1.4 RATIO BILIRUBIN, TOTAL (test code = 2207) 0.3 MG/DL ALKALINE PHOSPHATASE (test code = 2204) 118 U/L AST (test code = 2218) 14 U/L ALT (test code = 2219) 15 U/L LIPID [id number] 00:00:00* Test Item Value Reference Range Interpretation Comme nts CHOLESTEROL (test code = 2210) 176 MG/DL TRIGLYCERIDES (test code = 2232) 120 MG/DL HDL CHOLESTEROL (test code = 2220) 48 MG/DL CALC LDL CHOL (test code = 2237) 106 MG/DL RISK RATIO LDL/HDL (test cod e = 2238) 2.21 RATIO HEMOGLOBIN [id number] 00:00:00* Test Item Value Reference Range Interpretation Comme nts HEMOGLOBIN A1c (test code = 12145) 7.5 % COMPREHENSIVE METABOLIC [id number] 00:00:00* Test Item Value Reference Range Interpretation Comme nts GLUCOSE (test code = 2217) 98 MG/DL BUN (test code = 2208) 6 MG/DL CREATININE (test code = 2214) 0.40 MG/DL eGFR (2020 CKD-EPI) (test code = 88472) 126 ML/MIN/1.73 CALC BUN/CREAT (test code = 2235) 15 RATIO SODIUM (test code = 2231) 140 MEQ/L POTASSIUM (test code = 2228) 4.1 MEQ/L CHLORIDE (test code = 2215) 99 MEQ/L CARBON DIOXIDE (test code = 2206) 26 MEQ/L CALCIUM (test code = 2209) 9.2 MG/DL PROTEIN, TOTAL (test code = 2229) 7.4 G/DL ALBUMIN (test code = 2201) 4.3 G/DL CALC GLOBULIN (test code = 2240) 3.1 G/DL CALC A/G RATIO (test code = 2234) 1.4 RATIO BILIRUBIN, TOTAL (test code = 2207) 0.3 MG/DL ALKALINE PHOSPHATASE (test code = 2204) 118 U/L AST (test code = 2218) 14 U/L ALT (test code = 2219) 15 U/L LIPID [id number] 00:00:00* Test Item Value Reference Range Interpretation Comme nts CHOLESTEROL (test code = 2210) 176 MG/DL TRIGLYCERIDES (test code = 2232) 120 MG/DL HDL CHOLESTEROL (test code = 2220) 48 MG/DL CALC LDL CHOL (test code = 2237) 106 MG/DL RISK RATIO LDL/HDL (test cod e = 2238) 2.21 RATIO HEMOGLOBIN [id number] 00:00:00* Test Item Value Reference Range Interpretation Comme nts HEMOGLOBIN A1c (test code = 71789) 7.5 % Tr F [facility] ONLY COVID [id number] 18:13:05COVID DMT InterpretationInterpretation/Recommendations: Molecular NAAT Tests for Active Infection with the SARS-CoV-2 Virus: The patient has currently tested negative for the SARS-CoV-2 virus that causes COVID-19 illness. This most likely indicates that the patient does not have an active infectionwith the SARS-CoV-2 virus. However, infection is not completely ruled out as the false negative rate for molecular NAAT testing using a nasopharyngeal sample can be up to 30%, mostly dependent on thetiming of sample collection in relation to illness [...] COVID-19 testing the patient has had at [facility], including molecular NAAT testing (more commonly known as PCR testing and Rapid ID Now testing) and antibody testing. It does not take into account any testing that a patient has had outside of the [facility] medical record. [facility] LABORATORY SERVICESCOVID [id number] Rapid ID NOW (no units) ? ? Date ? Value ? 07/27/2020 ? Not Detected ? ? ? 07/09/2020 ? Not Detected ? [facility] SERVICESUnFormerly [facility] HospitalCT ANGIOGRAM [id number] 16:35:58CT SCAN OF THE CHEST WITH CONTRAST PULMONARY EMBOLISM PROTOCOL HISTORY: Chest pain and shortness ofbreath. TECHNIQUE: CT scan of the chest is performed following intravenousadministration of 100 mL of Isovue-370 using pulmonary embolism protocol.Sagittal coronal and axial MIP reconstruction is performed. COMPARISON: 07/11/2020 Radiation Dose: DLP of 530 mGy-cm. FINDINGS: Contrast opacification ofthe pulmonary arteries is suboptimal,however there is no [...] large central PTE to the levelof proximal segme ntal branches2. Scattered areas of groundglass appearance in [...] Pulmonary artery is normal in caliber.Heart size isnormal. No pericardial effusion is seen. There is [...] normal.Changes of spondylosis are seen in the thoracicspine. CONCLUSIONS: 1. Limited study, grossly no evidence of a large central PTE to the levelof proximal segmental branches2. Scattered areas of groundglass appearance in both lungs are exaggeratedbyexpiratory nature of the exam. Possibility of mild pulmonary edema orsmall airway disease should be considered.[facility]Markel [id number] 06:49:36* Test Item Value Reference Range Interpretation Comme nts TROPONIN I (test code = 2817649365) 0.004 ng/mL See_Comment [Automated message] The system which generated this result transmitted reference range: <=0.034. The reference range was not used to interpret this result as normal/abnormal. MARIPOSA (test code = MARIPOSA) Equal or [...] use of biotin. ? Lab Interpretation (test code = 51832-3) [facility] (NA, K, CL, CO2, GLUCOSE, BUN, CREATININE, CA)2020-07-27 06:39:54* Test Item Value Reference Range Interpretation Comme nts NA (test code = 3941729122) 138 mmol/L 135-145 K (test code = 0772540512) 4.2 mmol/L 3.5-5.0 CL (test code = 4717514964) 100 mmol/L 98-108 CO2 TOTAL (test code = 3708719064) 31 mmol/L 23-31 AGAP (test code = 1257066439) 2-16 BUN (test code = 3642173474) 18 mg/dL 7-23 GLUCOSE (test code = 7583321558) 162 mg/dL 70-110 H CREATININE (test code = 4634584686) 0.57 mg/dL 0.50-1.04 CALCIUM (test code = 2152545274) 9.3 mg/dL 8.6-10.6 eGFR (test code = 8058896589) mL/min/1.73m2 MARIPOSA (test code = MARIPOSA) Association [...] imaging tests). Lab Interpretation (test code = 82076-3) [facility]normal [facility] (ALB, T.PRO, BILI T, BU/BC, ALT, AST, ALK PHOS)2020-07-27 06:39:34* Test Item Value Reference Range Interpretation Comme nts TOTAL BILI (test code = 2825933688) 0.3 mg/dL 0.1-1.1 BILI UNCON (test code = 7923353505) 0.1 mg/dL 0.1-1.1 BILI CONJ (test code = 8683127254) 0.0 mg/dL 0.0-0.3 T PROTEIN (test code = 0756795665) 8.1 g/dL 6.3-8.2 ALBUMIN (test code = 0812779083) 4.3 g/dL 3.5-5.0 ALK PHOS (test code = 8842581544) 114 U/L 34-122 ALTv (test code = 1742-6) 22 U/L 5-35 AST(SGOT) (test code = 6588248809) 23 U/L 13-40 Lab Interpretation (test cod e = 16987-8) [facility] (ID NOW RAPID TESTING)2020-07-27 06:39:33* Test Item Value Reference Range Interpretation Comme nts SARS-CoV-2 Rapid ID NOW (test code = 72114-5) Not Detected Not Detected MARIPOSA (test code = MARIPOSA) ID NOW COVID-19 As say is an isothermal nucleic acid amplification test intended for the qualitative detection of nucleic acid from SARS-CoV-2 viral RNA in nasopharyngeal (MANAGER WIND) specimens. It is used under Emergency Use [...] patient testing if clinically indicated. Lab Interpretation (test code = 19249-0) Normal [facility] 1 [id number] 06:38:34No acute cardiopulmonary disease. RL: 3726AFC: [id number] END OF REPORT ORDERING PHYSICIAN: ISHA LOERA HISTORY: ?sob . Shortness of breath.TECHNIQUE: ?Frontal view of the chest. COMPARISON: ?None available. FINDINGS: ? The cardiomediastinal contours are unremarkable. The lungs are withoutconfluent airspace opacity, mass, or effusion. The osseous structures areunremarkable. [facility], Radiant Results Inft User - 07/27/2020 1:39 AM CDT ORDERING PHYSICIAN: ISHA HERNANDEZHISTORY: sob . Shortness of breath.TECHNIQUE: Frontal view of the chest.COMPARISON: None available.FINDINGS: The cardiomediastinal contours are unremarkable. The lungs are withoutconfluent airspace opacity, mass, or effusion. The osseous structures areunremarkable. IMPRESSIONNo acute cardiopulmonary disease.RL: 3726AFC: [id number] OF REPORT [facility] with Chrvsaupslzg2824-42-29 06:24:36* Test Item Value Reference Range Interpretation Comme nts WBC (test code = 6690-2) See_Comment [Automated messa ge] The system which generated this result transmitted reference range: 4.30 - 11.10 10*3/?L. The reference range was not used to interpret this result as normal/abnormal. RBC (test code = 789-8) See_Comment [Automated messa ge] The system which generated this result transmitted reference range: 3.93 - 5.25 10*6/?L. The reference range was not used to interpret this result as normal/abnormal. HGB (test code = 718-7) 12.7 g/dL 11.6-15.0 HCT (test code = 4544-3) 40.8 % 35.7-45.2 MCV (test code = 787-2) 88.9 fL 80.6-95.5 MCH (test code = 785-6) 27.7 pg 25.9-32.8 MCHC (test code = 786-4) 31.1 g/dL 31.6-35.1 L RDW-SD (test code = 71984-6) 49.0 fL 39.0-49.9 RDW-CV (test code = 788-0) 15.2 % 12.0-15.5 PLT (test code = 777-3) See_Comment [Automated messa ge] The system which generated this result transmitted reference range: 166 - 358 10*3/?L. The reference range was not used to interpret this result as normal/abnormal. MPV (test code = 30135-2) 10.7 fL 9.5-12.9 NRBC/100 WBC (test code = 7193502532) See_Comment [Automated me ssage] The system which generated this result transmitted reference range: 0.0 - 10.0 /100 WBCs. The reference range was not used to interpret this result as normal/abnormal. NRBC x10^3 (test code = 3496733370) <0.01 See_Comment [Automated messa ge] The system which generated this result transmitted reference range: 10*3/?L. The reference range was not used to interpret this result as normal/abnormal. GRAN MAT (NEUT) % (test code = 770-8) 67.2 % IMM GRAN % (test code = 1347932098) 0.60 % LYMPH % (test code = 736-9) 21.7 % MONO % (test code = 5905-5) 3.3 % EOS % (test code = 713-8) 6.6 % BASO % (test code = 706-2) 0.6 % GRAN MAT x10^3(ANC) (test code = 7574267446) 7.05 10*3/uL 1.88-7.09 IMM GRAN x10^3 (test code = 5912279458) 0.06 10*3/uL 0.00-0.06 LYMPH x10^3 (test code = 731-0) 2.28 10*3/uL 1.32-3.29 MONO x10^3 (test code = 742-7) 0.35 10*3/uL 0.33-0.92 EOS x10^3 (test code = 711-2) 0.69 10*3/uL 0.03-0.39 H BASO x10^3 (test code = 704-7) 0.06 10*3/uL 0.01-0.07 Lab Interpretation (test code = 67735-3) [facility]2020-07-14 13:01:17* Test Item Value Reference Range Interpretation Comme nts POCT GLU (test code = 9672987267) 107 mg/dL 70-110 Lab Interpretation (test cod e = 47858-7) Normal [facility]BL[facility] CULTURE [id number] 07:01:06* Test Item Value Reference Range Interpretation Comme nts Blood Culture-Aerobic (test code = 47150-8) No organisms isolated No growth Previous preliminary verified result was Culture In Progress on 07/09/2020 at 0501 CDTPrevious preliminary verified result was No growth at 24 hours on 07/10/2020 at 0201 CDTPrevious preliminary verified result was No growth at 48 hours on 07/11/2020 at 0201 CDTPrevious preliminary verified result was No growth at 72 hours on 07/12/2020 at 0201 CDT Blood Culture-Anaerobic (test code = 22435-7) No organisms isolated No growth Previous preliminary verified result was Culture In Progress on 07/09/2020 at 0501 CDTPrevious preliminary verified result was No growth at 24 hours on 07/10/2020 at 0201 CDTPrevious preliminary verified result was No growth at 48 hours on 07/11/2020 at 0201 CDTPrevious preliminary verified result was No growth at 72 hours on 07/12/2020 at 0201 CDT Lab Interpretation (test code = 52737-3) Normal [facility] [id number] 07:01:05* Test Item Value Reference Range Interpretation Comme nts Blood Culture-Aerobic (test code = 02796-3) No organisms isolated No growth Previous preliminary verified result was Culture In Progress on 07/09/2020 at 0501 CDTPrevious preliminary verified result was No growth at 24 hours on 07/10/2020 at 0201 CDTPrevious preliminary verified result was No growth at 48 hours on 07/11/2020 at 0201 CDTPrevious preliminary verified result was No growth at 72 hours on 07/12/2020 at 0201 CDT Blood Culture-Anaerobic (test code = 82558-5) No organisms isolated No growth Previous preliminary verified result was Culture In Progress on 07/09/2020 at 0501 CDTPrevious preliminary verified result was No growth at 24 hours on 07/10/2020 at 0201 CDTPrevious preliminary verified result was No growth at 48 hours on 07/11/2020 at 0201 CDTPrevious preliminary verified result was No growth at 72 hours on 07/12/2020 at 0201 CDT Lab Interpretation (test code = 90463-9) Normal [facility]2020-07-14 02:02:19* Test Item Value Reference Range Interpretation Comme nts POCT GLU (test code = 4251999448) 281 mg/dL 70-110 H Lab Interpretation (test cod e = 38429-6) Abnormal [facility] SouthMYCOPLASMA PNEUMONIAE ANTIBODY, [id number] 22:06:07* Test Item Value Reference Range Interpretation Comme nts Mycoplasma IGM (test code = 5256-3) 0.23 U/L See_Comment INTERPRETIVE INFORMATION: ?Mycoplasma pneumoniae Ab, IgM ?0.76 U/L or less .......... Negative: No clinically ?significant amount of ?M. pneumoniae IgM antibody ?detected. ?0.77 - 0.95 U/L ........... Low Positive: M. pneumoniae- ?specific IgM presumptively ?detected. Collection of a ?follow-up sample in 1-2 ?weeks is recommended to ?assure reactivity. ?0.96 U/L or greater ....... Positive: Highly significant ?amount of M. pneumoniae- ?specific IgM antibody ?detected. However, low levels ?of IgM antibodies may ?occasionally persist for more ?than 12 months post-infection.Performed By: [facility] [place] [id number] Director: Lisbet Odom MD [Automated message] The system which generated this result transmitted reference range: <=0.76. The reference range was not used to interpret this result as normal/abnormal. [facility] SouthSPUTUM [id number] 16:48:41* Test Item Value Reference Range Interpretation Comme nts SPUTUM CULTURE (test code = 622-1) 2+ Respiratory santhosh: Commensal upper respiratory microorganisms only. Gram stain (test code = 664-3) Few Epithelial cells present MARIPOSA (test code = MARIPOSA) Bacterial pathogens associated with lower respiratory infections were not identified, which include Pseudomonas aeruginosa and Staphylococcus aureus (MRSA or MSSA). [facility]. METABOLIC PANEL (90301)2020-07-12 11:23:13* Test Item Value Reference Range Interpretation Comme nts NA (test code = 4411240974) 137 mmol/L 135-145 K (test code = 4124620007) 4.9 mmol/L 3.5-5.0 CL (test code = 0213705103) 96 mmol/L 98-108 L CO2 TOTAL (test code = 0330826942) 33 mmol/L 23-31 H AGAP (test code = 5359773052) 2-16 BUN (test code = 7045639821) 13 mg/dL 7-23 GLUCOSE (test code = 9412574396) 172 mg/dL 70-110 H CREATININE (test code = 0563274157) 0.40 mg/dL 0.50-1.04 L TOTAL BILI (test code = 1655047035) 0.5 mg/dL 0.1-1.1 CALCIUM (test code = 3855691140) 9.4 mg/dL 8.6-10.6 T PROTEIN (test code = 8256927809) 7.8 g/dL 6.3-8.2 ALBUMIN (test code = 0182303258) 4.2 g/dL 3.5-5.0 ALK PHOS (test code = 8174751683) 97 U/L 34-122 ALTv (test code = 1742-6) 27 U/L 5-35 AST(SGOT) (test code = 2504312763) 22 U/L 13-40 eGFR (test code = 1711175569) mL/min/1.73m2 MARIPOSA (test code = MARIPOSA) Association [...] imaging tests). Lab Interpretation (test code = 35119-8) Abnormal [facility] WITH [id number] 11:03:13* Test Item Value Reference Range Interpretation Comme nts WBC (test code = 6690-2) See_Comment [Automated [employer]] The system which generated this result transmitted reference range: 4.30 - 11.10 10*3/?L. The reference range was not used to interpret this result as normal/abnormal. RBC (test code = 789-8) See_Comment [[facility]] The system which generated this result transmitted reference range: 3.93 - 5.25 10*6/?L. The reference range was not used to interpret this result as normal/abnormal. HGB (test code = 718-7) 11.8 g/dL 11.6-15.0 HCT (test code = 4544-3) 37.6 % 35.7-45.2 MCV (test code = 787-2) 87.6 fL 80.6-95.5 MCH (test code = 785-6) 27.5 pg 25.9-32.8 MCHC (test code = 786-4) 31.4 g/dL 31.6-35.1 L RDW-SD (test code = 56980-9) 47.8 fL 39.0-49.9 RDW-CV (test code = 788-0) 14.9 % 12.0-15.5 PLT (test code = 777-3) See_Comment [Automated [employer]] The system which generated this result transmitted reference range: 166 - 358 10*3/?L. The reference range was not used to interpret this result as normal/abnormal. MPV (test code = 56651-3) 10.8 fL 9.5-12.9 NRBC/100 WBC (test code = 0272760729) See_Comment [Automated [employer] ssage] The system which generated this result transmitted reference range: 0.0 - 10.0 /100 WBCs. The reference range was not used to interpret this result as normal/abnormal. NRBC x10^3 (test code = 3797380964) <0.01 See_Comment [Automated [employer]] The system which generated this result transmitted reference range: 10*3/?L. The reference range was not used to interpret this result as normal/abnormal. GRAN MAT (NEUT) % (test code = 770-8) 87.7 % IMM GRAN % (test code = 2406452819) 1.60 % LYMPH % (test code = 736-9) 9.0 % MONO % (test code = 5905-5) 1.4 % EOS % (test code = 713-8) 0.1 % BASO % (test code = 706-2) 0.2 % GRAN MAT x10^3(ANC) (test code = 2752079431) 8.92 10*3/uL 1.88-7.09 H IMM GRAN x10^3 (test code = 6572394385) 0.16 10*3/uL 0.00-0.06 H LYMPH x10^3 (test code = 731-0) 0.92 10*3/uL 1.32-3.29 L MONO x10^3 (test code = 742-7) 0.14 10*3/uL 0.33-0.92 L EOS x10^3 (test code = 711-2) <0.03 0.03-0.39 L BASO x10^3 (test code = 704-7) <0.03 0.01-0.07 Lab Interpretation (test code = 69912-0) [facility]normal [facility] SouthCT THORAX WO [id number] 22:18:13Patchy groundglass opacities in the bilateral lungs with more confluentconsolidative opacities in the right lower lobe, consistent with multifocalatypical pneumonia. No pleural effusion or abscess. RL: 4131AFC: [id number] End of report RING PHYSICIAN: MAYTE ADDISON HISTORY: Neck, effusion, or abscess is suspected COMPARISON: None available T ECHNIQUE: CT of the chest without IV contrast. CT performed with ALARA (AsLow As Reasonably Achievable) principles. FINDINGS: The heart is normal in size. There is no pleural effusion. No pericardialeffusion. ?The aorta and pulmonary artery are normal. There is nopathologic lymphadenopathy. There are patchy ground glass opacities throughout both lungs with moreconfluent consolidative opacities inthe right lower lobe. No pleuraleffusion or pneumothorax. The trachea and bronchi are patent to thesegmental level. The visualized portion of the upper abdomen is normal. Osseous structuresare normal. [facility], Radiant Results Inft User - 07/11/2020 5:19 PM CDTFormatting of this note might be differentfrom the original.ORDERING PHYSICIAN: MAYTE ADDISONHISTORY: Neck, effusion, or abscess [...] pneumonia. No pleural effusion or abscess.RL: 4131AFC: 40688Nss of report [facility] [id number] 21:45:45* Test Item Value Reference Range Interpretation Comme nts FREE T4 (test code = 3614761887) See_Comment [Automated messa ge] The system which generated this result transmitted reference range: 0.78 - 2.20 ng/dL:. The reference range was not used to interpret this result as normal/abnormal. Lab Interpretation (test code = 84612-1) Normal [facility] [id number] 21:44:29* Test Item Value Reference Range Interpretation Comme nts FREE T3 (test code = 1795494499) 3.01 pg/mL 2.77-5.27 Lab Interpretation (test cod e = 73005-2) Normal [facility]N-[facility]MINAL [id number] 10:51:09* Test Item Value Reference Range Interpretation Comme nts NT-proBNP (test code = 8208772239) 38 pg/mL See_Comment [Automated message] The system which generated this result transmitted reference range: <=125. The reference range was not used to interpret this result as normal/abnormal. MARIPOSA (test code = MARIPOSA) Biotin has been reported to cause a negative bias, interpret results relative to patient's use of biotin. Lab Interpretation (test code = 75574-2) Normal [facility]. METABOLIC PANEL (37554)2020-07-11 10:42:50* Test Item Value Reference Range Interpretation Comme nts NA (test code = 9915612982) 138 mmol/L 135-145 K (test code = 0854991960) 4.5 mmol/L 3.5-5.0 CL (test code = 0589859142) 101 mmol/L 98-108 CO2 TOTAL (test code = 3799088759) 31 mmol/L 23-31 AGAP (test code = 4661729347) 2-16 BUN (test code = 8926516186) 15 mg/dL 7-23 GLUCOSE (test code = 3835969415) 100 mg/dL 70-110 CREATININE (test code = 5958863392) 0.46 mg/dL 0.50-1.04 L TOTAL BILI (test code = 0849625044) 0.5 mg/dL 0.1-1.1 CALCIUM (test code = 7835195337) 8.9 mg/dL 8.6-10.6 T PROTEIN (test code = 0814086290) 7.1 g/dL 6.3-8.2 ALBUMIN (test code = 3573930328) 3.9 g/dL 3.5-5.0 ALK PHOS (test code = 4300762576) 80 U/L 34-122 ALTv (test code = 1742-6) 19 U/L 5-35 AST(SGOT) (test code = 4777431292) 32 U/L 13-40 eGFR (test code = 0332021987) mL/min/1.73m2 MARIPOSA (test code = MARIPOSA) Association [...] imaging tests). Lab Interpretation (test code = 77269-5) [facility]PNEUMOCOCCAL [id number] 18:45:00* Test Item Value Reference Range Interpretation Comme nts S. pneumoniae antigen (test code = 0600502032) Negative Negative Lab Interpretation (test cod e = 94551-7) [facility] SouthURINE [id number] 13:39:03* Test Item Value Reference Range Interpretation Comme nts URINE CULTURE (test code = 630-4) No aerobic growth (< 1000 CFU/mL) [facility] SouthSEDIMENTATION [id number] 11:16:54* Test Item Value Reference Range Interpretation Comme nts ESR (test code = 8637138160) See_Comment H [Automated messa ge] The system which generated this result transmitted reference range: 0 - 20 mm/HR. The reference range was not used to interpret this result as normal/abnormal. Lab Interpretation (test code = 88723-1) [facility]normal [facility] SouthTROPONIN [id number] 10:13:54* Test Item Value Reference Range Interpretation Comme nts TROPONIN I (test code = 9908079973) 0.001 ng/mL See_Comment [Automated message] The system which generated this result transmitted reference range: <=0.034. The reference range was not used to interpret this result as normal/abnormal. MARIPOSA (test code = MARIPOSA) Equal or [...] use of biotin. ? Lab Interpretation (test code = 45116-6) Normal [facility]N-TERMINAL [id number] 10:11:17* Test Item Value Reference Range Interpretation Comme nts NT-proBNP (test code = 8971397263) 76 pg/mL See_Comment [Automated message] The system which generated this result transmitted reference range: <=125. The reference range was not used to interpret this result as normal/abnormal. MARIPOSA (test code = MARIPOSA) Biotin has been reported to cause a negative bias, interpret results relative to patient's use of biotin. Lab Interpretation (test code = 60848-8) Normal [facility]. METABOLIC PANEL (29928)2020-07-10 10:02:17* Test Item Value Reference Range Interpretation Comme nts NA (test code = 0702401612) 137 mmol/L 135-145 K (test code = 1557595506) 4.7 mmol/L 3.5-5.0 CL (test code = 6499785072) 103 mmol/L 98-108 CO2 TOTAL (test code = 0183120269) 30 mmol/L 23-31 AGAP (test code = 4961978867) 2-16 BUN (test code = 5859918425) 17 mg/dL 7-23 GLUCOSE (test code = 9252032340) 107 mg/dL 70-110 CREATININE (test code = 4765093641) 0.51 mg/dL 0.50-1.04 TOTAL BILI (test code = 3806129765) 0.4 mg/dL 0.1-1.1 CALCIUM (test code = 0044560802) 9.0 mg/dL 8.6-10.6 T PROTEIN (test code = 4445220471) 6.9 g/dL 6.3-8.2 ALBUMIN (test code = 3499624299) 3.8 g/dL 3.5-5.0 ALK PHOS (test code = 5511012619) 79 U/L 34-122 ALTv (test code = 1742-6) 16 U/L 5-35 AST(SGOT) (test code = 5065397455) 20 U/L 13-40 eGFR (test code = 9860376552) mL/min/1.73m2 MARIPOSA (test code = MARIPOSA) Association [...] or urine or abnormalities in imaging tests). [facility]MAGN[facility]IUM2021-[facility] 10:02:17* Test Item Value Reference Range Interpretation Comme nts MAGNESIUM (test code = 9125979518) 2.1 mg/dL 1.7-2.4 Lab Interpretation (test cod e = 73889-0) Normal [facility] SouthCB WITH [id number] 09:51:36* Test Item Value Reference Range Interpretation Comme nts WBC (test code = 6690-2) See_Comment H [Automated [employer]] The system which generated this result transmitted reference range: 4.30 - 11.10 10*3/?L. The reference range was not used to interpret this result as normal/abnormal. RBC (test code = 789-8) See_Comment [Automated [employer]] The system which generated this result transmitted reference range: 3.93 - 5.25 10*6/?L. The reference range was not used to interpret this result as normal/abnormal. HGB (test code = 718-7) 11.1 g/dL 11.6-15.0 L HCT (test code = 4544-3) 35.5 % 35.7-45.2 L MCV (test code = 787-2) 88.3 fL 80.6-95.5 MCH (test code = 785-6) 27.6 pg 25.9-32.8 MCHC (test code = 786-4) 31.3 g/dL 31.6-35.1 L RDW-SD (test code = 70942-0) 49.4 fL 39.0-49.9 RDW-CV (test code = 788-0) 15.3 % 12.0-15.5 PLT (test code = 777-3) See_Comment [Automated [employer]] The system which generated this result transmitted reference range: 166 - 358 10*3/?L. The reference range was not used to interpret this result as normal/abnormal. MPV (test code = 86483-7) 10.8 fL 9.5-12.9 NRBC/100 WBC (test code = 9052826846) See_Comment [Automated [employer] ssage] The system which generated this result transmitted reference range: 0.0 - 10.0 /100 WBCs. The reference range was not used to interpret this result as normal/abnormal. NRBC x10^3 (test code = 8877268259) <0.01 See_Comment [Automated [employer]] The system which generated this result transmitted reference range: 10*3/?L. The reference range was not used to interpret this result as normal/abnormal. GRAN MAT (NEUT) % (test code = 770-8) 71.0 % IMM GRAN % (test code = 3440447263) 0.50 % LYMPH % (test code = 736-9) 18.6 % MONO % (test code = 5905-5) 5.8 % EOS % (test code = 713-8) 3.7 % BASO % (test code = 706-2) 0.4 % GRAN MAT x10^3(ANC) (test code = 9406922360) 8.61 10*3/uL 1.88-7.09 H IMM GRAN x10^3 (test code = 7201513783) 0.06 10*3/uL 0.00-0.06 LYMPH x10^3 (test code = 731-0) 2.26 10*3/uL 1.32-3.29 MONO x10^3 (test code = 742-7) 0.71 10*3/uL 0.33-0.92 EOS x10^3 (test code = 711-2) 0.45 10*3/uL 0.03-0.39 H BASO x10^3 (test code = 704-7) 0.05 10*3/uL 0.01-0.07 Lab Interpretation (test code = 07038-8) [facility]RESPIRATORY PANEL BY [id number] 07:41:20* Test Item Value Reference Range Interpretation Comme nts Adenovirus (test code = 91694-0) Negative Negative Coronavirus HKU1 (test code = 77874-4) Negative Negative Coronavirus NL63 (test code = 63198-6) Negative Negative Coronavirus 229E (test code = 16302-6) Negative Negative Coronavirus OC43 (test code = 53537-8) Negative Negative Human Metapneumovirus (test code = 09022-1) Negative Negative Human Rhinovirus/Enterovirus (test code = 99095-4) Negative Negative Influenza A (test code = 93642-5) Negative Negative Influenza B (test code = 54314-0) Negative Negative Parainfluenza Virus 1 (test code = 16391-0) Negative Negative Parainfluenza Virus 2 (test code = 60036-0) Negative Negative Parainfluenza Virus 3 (test code = 08824-2) Negative Negative Parainfluenza Virus 4 (test code = 63598-4) Negative Negative Respiratory Syncytial Virus (test code = 11891-3) Negative Negative Bordetella parapertussis (test code = 56170-9) Negative Negative Bordetella pertussis (test code = 96238-9) Negative Negative Chlamydia pneumoniae (test code = 08480-0) Negative Negative Mycoplasma pneumoniae (test code = 87475-6) Negative Negative MARIPOSA (test code = MARIPOSA) Negative:A negativ e result does not rule-out infection. ?This assay does not test for all potential infectious agents. ? Positive:A positive test result does not necessarily indicate the presence of viable organism. ? Lab Interpretation (test code = 26315-9) [facility] COVID [id number] 06:21:45COVID DMT InterpretationInterpretation/Recommendations: Molecular NAAT Tests for Active Infection with the SARS-CoV-2 Virus: The patient has currently tested negative for the SARS-CoV-2 virus that causes COVID-19 illness. This most likely indicates that the patient does not have an active infectionwith the SARS-CoV-2 virus. However, infection is not completely ruled out as the false negative rate for molecular NAAT testing using a nasopharyngeal sample can be up to 30%, mostly dependent on thetiming of sample collection in relation to illness [...] COVID-19 testing the patient has had at [facility], including molecular NAAT testing (more commonly known as PCR testing and Rapid ID Now testing) and antibody testing. It does not take into account any testing that a patient has had outside of the [facility] medical record. [facility] LABORATORY SERVICESCOVID UwiodglRLCD-EiC-0 Rapid ID NOW (no units) ? ? Date ? Value ? 07/09/2020 ? Not Detected ? [facility] SERVICESSh[facility] SouthLEGIONELLA URINARY ANTIGEN TST 2020-07-09 23:26:39* Test Item Value Reference Range Interpretation Comme nts Legionella Urinary Antigen (test code = 2961946940) Negative Negative MARIPOSA (test code = MARIPOSA) Negative for [...] limit of the test. Lab Interpretation (test code = 61367-6) Normal [facility] SouthTROPONIN [id number] 21:06:36* Test Item Value Reference Range Interpretation Comme nts TROPONIN I (test code = 1087943140) 0.002 ng/mL See_Comment [Automated message] The system which generated this result transmitted reference range: <=0.034. The reference range was not used to interpret this result as normal/abnormal. MARIPOSA (test code = MARIPOSA) Equal or [...] use of biotin. ? Lab Interpretation (test code = 48419-7) Normal [facility] SouthADC,CLC OR [facility] ONLY - INFLUENZA A & B DIRECT [id number] 20:54:43* Test Item Value Reference Range Interpretation Comme nts Influenza A (test code = 96735-1) Negative Negative Influenza B (test code = 53941-7) Negative Negative Lab Interpretation (test cod e = 64045-3) Normal [facility] SouthPROCALCITONIN2021-05-27 17:02:04* Test Item Value Reference Range Interpretation Comments Procalcitonin (test code = 5810308729) <0.02 See_Comment [Automated message] The system which generated this result transmitted reference range: <0.07 ng/mL. The reference range was not used to interpret this result as normal/abnormal . MARIPOSA (test code = MARIPOSA) INTERPRETATION OF PROCALCITONIN RESULTS IN ADULTS >= 18 YEARS [...] lung abscess/empyema. For further information please refer to:[email or web address] Lab Interpretation (test code = 77413-5) Normal [facility] SouthUREA NITROGEN, URINE [id number] 16:26:49 * Test Item Value Reference Range Interpretation Comme nts UREA N UR (test code = 2052919613) 546 mg/dL [facility] SouthPROTEIN CREAT RATIO URINE [id number] 13:05:11* Test Item Value Reference Range Interpretation Comme nts T. PROT U (test code = 2888-6) 22 mg/dL CREAT U (test code = 0494838382) 28.1 mg/dL Protein/Creatinine Ratio Uri ne (test code = 1880220795) 0.0-2.0 [facility] SouthSODIUM, URINE [id number] 13:01:14* Test Item Value Reference Range Interpretation Comme nts NA URINE (test code = 3566689430) 26 mmol/L [facility] SouthXR CHEST 1 [id number] 12:40:02Right lower lung well-demarcated consolidation concerning for lobarpneumonia or atelectasis. Preliminary Report Dictated by Resident: Sushil Almaguer MD., have reviewed this study and agree withthe above report.EXAM: XR CHEST 1 VW COMPARISON: None HISTORY: Sob, hypoxia FINDINGS: Lines/Tubes: None. Lungs: A band of opacification is seen in the right lower lung. No pleura leffusion or pneumothorax is identified. Heart/Mediastinum: The cardiomediastinal silhouette is normal in size. Bones: No acute osseous abnormality is seen. [facility], Radiant Results Inft User - 07/09/2020 7:41 AM CDT EXAM: XR CHEST 1 VWCOMPARISON: NoneHISTORY: Sob, hypoxia FINDINGS:Lines/Tubes: None.Lungs: A band of opacification is seen inthe right lower lung. No pleuraleffusion or pneumothorax is identified.Heart/Mediastinum: The cardiomediastinal silhouette is normal in size.Bones: No acute osseous abnormality is seen.IMPRESSIONRight lower lung well-demarcated consolidation concerning for lobarpneumonia or atelectasis.Preliminary Report Dictated by Resident: Sushil Vargas MD., have reviewed this studyand agree withthe above report. [facility] SouthTHYROID STIMULATING [id number] 12:35:31 * Test Item Value Reference Range Interpretation Comme nts TSH (test code = 7489854760) See_Comment L [Automated messa ge] The system which generated this result transmitted reference range: 0.45 - 4.70 mIU/L. The reference range was not used to interpret this result as normal/abnormal. Lab Interpretation (test code = 53439-8) Abnormal [facility] SouthN-TERMINAL [id number] 12:14:52* Test Item Value Reference Range Interpretation Comme nts NT-proBNP (test code = 0217519589) 46 pg/mL See_Comment [Automated message] The system which generated this result transmitted reference range: <=125. The reference range was not used to interpret this result as normal/abnormal. MARIPOSA (test code = MARIPOSA) Biotin has been reported to cause a negative bias, interpret results relative to patient's use of biotin. Lab Interpretation (test code = 97777-2) Normal [facility] SouthURINALYSIS2021-05-27 12:10:35* Test Item Value Reference Range Interpretation Comme nts APPEARANCE (test code = 2394751586) Clear Clear COLOR (test code = 4055261413) Straw Yellow A PH (test code = 1327394407) 4.8-8.0 SP GRAVITY (test code = 2256012796) 1.003-1.030 GLU U QUAL (test code = 2135751088) Normal Normal BLOOD (test code = 7646085245) 2+ Negative A KETONES (test code = 2548147462) Negative Negative PROTEIN (test code = 2887-8) Negative Negative UROBILIN (test code = 9883619055) Normal Normal BILIRUBIN (test code = 8965651680) Negative Negative NITRITE (test code = 0389145311) Negative Negative LEUK CLIFFORD (test code = 9667622655) Negative Negative RBC/HPF (test code = 9919845287) See_Comment H [Automated [employer]] The system which generated this result transmitted reference range: 0 - 3 HPF. The reference range was not used to interpret this result as normal/abnormal. WBC/HPF (test code = 3340216962) See_Comment [Automated [employer]] The system which generated this result transmitted reference range: 0 - 5 HPF. The reference range was not used to interpret this result as normal/abnormal. BACTERIA (test code = 7498332157) Negative Negative SQ EPITH (test code = 8226983954) HPF Lab Interpretation (test code = 27668-4) Abnormal [facility] SouthLIPID PANEL (69134)(TOTAL CHOLESTEROL, TRIGLYCERIDES, HDL)2020-07-09 12:04:52* Test Item Value Reference Range Interpretation Comme nts CHOL (test code = 1503598807) 183 mg/dL 120-200 HDL (test code = 8634959532) 61 mg/dL >50 HDLC RATIO (test code = 8127914905) See_Comment [Automated [employer]] The system which generated this result transmitted reference range: <=4.5. The reference range was not used to interpret this result as normal/abnormal. TRIG (test code = 5151462087) 68 mg/dL 30-170 LDL CHOL (test code = 16459-2) 108 mg/dL See_Comment [Automated [employer]] The system which generated this result transmitted reference range: <=160. The reference range was not used to interpret this result as normal/abnormal. VLDL (test code = 9077443593) 14 mg/dL 5-60 Lab Interpretation (test code = 83107-6) Normal [facility] SouthPHOSPHORUS2021-05-27 12:04:52* Test Item Value Reference Range Interpretation Comme nts PHOSPHORUS (test code = 8769809411) 3.7 mg/dL 2.5-5.0 Lab Interpretation (test cod e = 30895-6) Normal [facility] SouthCREATINE [id number] 12:04:11* Test Item Value Reference Range Interpretation Comme nts CK (test code = 3887623033) 58 U/L 33-194 Lab Interpretation (test cod e = 89339-9) Normal [facility] SouthGLYCOSYLATED HEMOGLOBIN (A1C)2020-07-09 11:48:12* Test Item Value Reference Range Interpretation Comme nts HGB A1C (test code = 4548-4) 6.2 % 4.0-5.7 H MARIPOSA (test code = MARIPOSA) Reference RangesNormal: <5.7%Prediabetes: 5.7 - 6.4%Diabetes: > 6.5% Lab Interpretation (test code = 97240-5) Abnormal [facility] SouthTROPONIN [id number] 11:47:11* Test Item Value Reference Range Interpretation Comme nts TROPONIN I (test code = 1779703903) 0.000 ng/mL See_Comment [Automated message] The system which generated this result transmitted reference range: <=0.034. The reference range was not used to interpret this result as normal/abnormal. MARIPOSA (test code = MARIPOSA) Equal or [...] use of biotin. ? Lab Interpretation (test code = 44703-5) Normal [facility] SouthPROTHROMBIN TIME / [id number] 11:40:31* Test Item Value Reference Range Interpretation Comme nts PROTIME PATIENT (test code = 5964-2) See_Comment [Automated [employer]] The system which generated this result transmitted reference range: 12.0 - 14.7 Seconds. The reference range was not used to interpret this result as normal/abnormal. INR (test code = 6301-6) Normal INR <1.1; Warfarin Therapeutic range 2.0 to 3.0 or 2.5 to 3.5, depending upon the indications. Lab Interpretation (test code = 78038-0) Normal [facility] SouthMAGNESIUM2021-05-27 07:28:47* Test Item Value Reference Range Interpretation Comme nts MAGNESIUM (test code = 7883861924) 2.5 mg/dL 1.7-2.4 H Lab Interpretation (test cod e = 57882-9) Abnormal [facility] SouthCOMP. METABOLIC PANEL (83614)2020-07-09 07:28:27* Test Item Value Reference Range Interpretation Comme nts NA (test code = 9999255676) 135 mmol/L 135-145 K (test code = 4297412273) 4.6 mmol/L 3.5-5.0 CL (test code = 6559084600) 99 mmol/L 98-108 CO2 TOTAL (test code = 9961204905) 26 mmol/L 23-31 AGAP (test code = 6303551407) 2-16 BUN (test code = 0583460355) 17 mg/dL 7-23 GLUCOSE (test code = 3767830802) 190 mg/dL 70-110 H CREATININE (test code = 4567417979) 0.42 mg/dL 0.50-1.04 L TOTAL BILI (test code = 7083247541) 0.4 mg/dL 0.1-1.1 CALCIUM (test code = 4864574616) 9.5 mg/dL 8.6-10.6 T PROTEIN (test code = 8297967828) 8.8 g/dL 6.3-8.2 H ALBUMIN (test code = 1146543840) 4.5 g/dL 3.5-5.0 ALK PHOS (test code = 7492086355) 126 U/L 34-122 H ALTv (test code = 1742-6) 20 U/L 5-35 AST(SGOT) (test code = 0246036908) 29 U/L 13-40 eGFR (test code = 1145595268) mL/min/1.73m2 MARIPOSA (test code = MARIPOSA) Association [...] imaging tests). Lab Interpretation (test code = 08517-6) [facility]normal [facility]COVID[facility] (ID NOW RAPID TESTING)2020-07-09 06:30:42* Test Item Value Reference Range Interpretation Comme nts SARS-CoV-2 Rapid ID NOW (test code = 97966-4) Not Detected Not Detected MARIPOSA (test code = MARIPOSA) ID NOW COVID-19 As say is an isothermal nucleic acid amplification test intended for the qualitative detection of nucleic acid from SARS-CoV-2 viral RNA in nasopharyngeal (MANAGER [employer]) specimens. It is used under Emergency Use [...] patient testing if clinically indicated. Lab Interpretation (test code = 71128-0) Normal [facility] SouthCB WITH [id number] 06:24:59* Test Item Value Reference Range Interpretation Comme nts WBC (test code = 6690-2) See_Comment H [Automated message] The system which generated this result transmitted reference range: 4.30 - 11.10 10*3/?L. The reference range was not used to interpret this result as normal/abnormal. RBC (test code = 789-8) See_Comment [Automated message] The system which generated this result transmitted reference range: 3.93 - 5.25 10*6/?L. The reference range was not used to interpret this result as normal/abnormal. HGB (test code = 718-7) 14.0 g/dL 11.6-15.0 HCT (test code = 4544-3) 44.9 % 35.7-45.2 MCV (test code = 787-2) 88.2 fL 80.6-95.5 MCH (test code = 785-6) 27.5 pg 25.9-32.8 MCHC (test code = 786-4) 31.2 g/dL 31.6-35.1 L RDW-SD (test code = 89594-4) 46.9 fL 39.0-49.9 RDW-CV (test code = 788-0) 14.6 % 12.0-15.5 PLT (test code = 777-3) See_Comment [Automated message] The system which generated this result transmitted reference range: 166 - 358 10*3/?L. The reference range was not used to interpret this result as normal/abnormal. MPV (test code = 89647-8) 10.9 fL 9.5-12.9 NRBC/100 WBC (test code = 9828354047) See_Comment [Automated message] The system which generated this result transmitted reference range: 0.0 - 10.0 /100 WBCs. The reference range was not used to interpret this result as normal/abnormal. NRBC x10^3 (test code = 5846877687) See_Comment [Automated message] The system which generated this result transmitted reference range: 10*3/?L. The reference range was not used to interpret this result as normal/abnormal. GRAN MAT (NEUT) % (test code = 770-8) 85.9 % IMM GRAN % (test code = 0864907746) 1.50 % LYMPH % (test code = 736-9) 10.9 % MONO % (test code = 5905-5) 1.3 % EOS % (test code = 713-8) 0.1 % BASO % (test code = 706-2) 0.3 % GRAN MAT x10^3(ANC) (test code = 3231171007) 12.67 10*3/uL 1.88-7.09 H IMM GRAN x10^3 (test code = 7341535324) 0.22 10*3/uL 0.00-0.06 H LYMPH x10^3 (test code = 731-0) 1.61 10*3/uL 1.32-3.29 MONO x10^3 (test code = 742-7) 0.19 10*3/uL 0.33-0.92 L EOS x10^3 (test code = 711-2) <0.03 0.03-0.39 L BASO x10^3 (test code = 704-7) 0.05 10*3/uL 0.01-0.07 Lab Interpretation (test code = 91346-2) [facility]normal [facility] SouthCritical [id number] 06:04:00Miguel Mendoza MD ? ? 07/09/2020 ?5:55 AMCritical CarePerformed by: Miguel Mendoza MDAuthorized by: Miguel Mendoza MD Critical care provider statement: ?Critical care time (minutes): ?60 ?Critical care start time: ?07/08/2020 11:59 PM ?Critical care end time: ?07/09/2020 1:03 AM ?Critical care time was exclusive of: ?Separately billable procedures and treating other patients and teaching oneyda e ?Critical care was necessary to treat or prevent imminent or life-threatening deterioration of the following conditions: ?Circulatory failure, respiratory failure, shock, AUDIOLOGY ASSISTANT failure or compromise and dehydration ?Critical care [...] patient or surrogate and blood draw for specimensUnFormerly Metroplex Adventist HospitalCOMPREHENSIVE METABOLIC [id number] 00:00:00* Test Item Value Reference Range Interpretation Comme nts GLUCOSE (test code = 2217) 101 MG/DL BUN (test code = 2208) 12 MG/DL CREATININE (test code = 2214) 0.45 MG/DL eGFR AMER. (test cod e = 05437) 143 ML/MIN/1.73 eGFR NON- AMER. (test code = 49201) 124 ML/MIN/1.73 CALC BUN/CREAT (test code = 2235) 27 RATIO SODIUM (test code = 2231) 143 MEQ/L POTASSIUM (test code = 2228) 4.4 MEQ/L CHLORIDE (test code = 2215) 105 MEQ/L CARBON DIOXIDE (test code = 2206) 27 MEQ/L CALCIUM (test code = 2209) 9.4 MG/DL PROTEIN, TOTAL (test code = 2229) 7.7 G/DL ALBUMIN (test code = 2201) 4.1 G/DL CALC GLOBULIN (test code = 2240) 3.6 G/DL CALC A/G RATIO (test code = 2234) 1.1 RATIO BILIRUBIN, TOTAL (test code = 2207) 0.3 MG/DL ALKALINE PHOSPHATASE (test code = 2204) 102 U/L AST (test code = 2218) 15 U/L ALT (test code = 2219) 17 U/L Tr SamuelTROPONIN [id number] 00:00:00* Test Item Value Reference Range Interpretation Comme nts TROPONIN T (test code = 4017) <0.010 UG/L Tr SamuelCBC W/AUTO [id number] 00:00:00* Test Item Value Reference Range Interpretation Comme nts WBC (test code = 1001) 7.5 K/UL [...] = 1013) 0.5 % IMMATURE GRANULOCYTES (test code = 1036) 0.3 % NUCLEATED RBCS (test code = 1065) 0.0 /100WBC'S PLATELET COUNT (test code = 1015) 218 K/UL ABSOLUTE NEUTROPHILS (test c ode = 1066) 5.15 K/UL ABSOLUTE LYMPHOCYTES (test c ode = 1067) 1.63 K/UL ABSOLUTE MONOCYTES (test cod e = 1068) 0.35 K/UL ABSOLUTE EOSINOPHILS (test c ode = 1040) 0.33 K/UL ABSOLUTE BASOPHILS (test cod e = 1069) 0.04 K/UL ABS IMMATURE GRANULOCYTES (t est code = 1020) 0.02 K/UL ABS NUCLEATED RBCS (test cod e = 66813) 0.00 K/UL Tr SamuelHEMOGLOBIN [id number] 00:00:00* Test Item Value Reference Range Interpretation Comme nts HEMOGLOBIN A1c (test code = 42615) 6.2 % Tr SamuelCOMPREHENSIVE METABOLIC [id number] 00:00:00* Test Item Value Reference Range Interpretation Comme nts GLUCOSE (test code = 2217) 101 MG/DL BUN (test code = 2208) 12 MG/DL CREATININE (test code = 2214) 0.45 MG/DL eGFR AMER. (test cod e = 87060) 143 ML/MIN/1.73 eGFR NON- AMER. (test code = 26104) 124 ML/MIN/1.73 CALC BUN/CREAT (test code = 2235) 27 RATIO SODIUM (test code = 2231) 143 MEQ/L POTASSIUM (test code = 2228) 4.4 MEQ/L CHLORIDE (test code = 2215) 105 MEQ/L CARBON DIOXIDE (test code = 2206) 27 MEQ/L CALCIUM (test code = 2209) 9.4 MG/DL PROTEIN, TOTAL (test code = 2229) 7.7 G/DL ALBUMIN (test code = 2201) 4.1 G/DL CALC GLOBULIN (test code = 2240) 3.6 G/DL CALC A/G RATIO (test code = 2234) 1.1 RATIO BILIRUBIN, TOTAL (test code = 2207) 0.3 MG/DL ALKALINE PHOSPHATASE (test code = 2204) 102 U/L AST (test code = 2218) 15 U/L ALT (test code = 2219) 17 U/L Tr SamuelCBC W/AUTO [id number] 00:00:00* Test Item Value Reference Range Interpretation Comme nts WBC (test code = 1001) 7.5 K/UL [...] = 1013) 0.5 % IMMATURE GRANULOCYTES (test code = 1036) 0.3 % NUCLEATED RBCS (test code = 1065) 0.0 /100WBC'S PLATELET COUNT (test code = 1015) 218 K/UL ABSOLUTE NEUTROPHILS (test c ode = 1066) 5.15 K/UL ABSOLUTE LYMPHOCYTES (test c ode = 1067) 1.63 K/UL ABSOLUTE MONOCYTES (test cod e = 1068) 0.35 K/UL ABSOLUTE EOSINOPHILS (test c ode = 1040) 0.33 K/UL ABSOLUTE BASOPHILS (test cod e = 1069) 0.04 K/UL ABS IMMATURE GRANULOCYTES (t est code = 1020) 0.02 K/UL ABS NUCLEATED RBCS (test cod e = 50133) 0.00 K/UL HEMOGLOBIN [id number] 00:00:00* Test Item Value Reference Range Interpretation Comme nts HEMOGLOBIN A1c (test code = 58535) 6.2 % COMPREHENSIVE METABOLIC [id number] 00:00:00* Test Item Value Reference Range Interpretation Comme nts GLUCOSE (test code = 2217) 101 MG/DL BUN (test code = 2208) 12 MG/DL CREATININE (test code = 2214) 0.45 MG/DL eGFR AMER. (test cod e = 56455) 143 ML/MIN/1.73 eGFR NON- AMER. (test code = 34202) 124 ML/MIN/1.73 CALC BUN/CREAT (test code = 2235) 27 RATIO SODIUM (test code = 2231) 143 MEQ/L POTASSIUM (test code = 2228) 4.4 MEQ/L CHLORIDE (test code = 2215) 105 MEQ/L CARBON DIOXIDE (test code = 2206) 27 MEQ/L CALCIUM (test code = 2209) 9.4 MG/DL PROTEIN, TOTAL (test code = 2229) 7.7 G/DL ALBUMIN (test code = 2201) 4.1 G/DL CALC GLOBULIN (test code = 2240) 3.6 G/DL CALC A/G RATIO (test code = 2234) 1.1 RATIO BILIRUBIN, TOTAL (test code = 2207) 0.3 MG/DL ALKALINE PHOSPHATASE (test code = 2204) 102 U/L AST (test code = 2218) 15 U/L ALT (test code = 2219) 17 U/L TROPONIN [id number] 00:00:00* Test Item Value Reference Range Interpretation Comme nts TROPONIN T (test code = 4017) <0.010 UG/L CBC W/AUTO [id number] 00:00:00* Test Item Value Reference Range Interpretation Comme nts WBC (test code = 1001) 7.5 K/UL [...] = 1013) 0.5 % IMMATURE GRANULOCYTES (test code = 1036) 0.3 % NUCLEATED RBCS (test code = 1065) 0.0 /100WBC'S PLATELET COUNT (test code = 1015) 218 K/UL ABSOLUTE NEUTROPHILS (test c ode = 1066) 5.15 K/UL ABSOLUTE LYMPHOCYTES (test c ode = 1067) 1.63 K/UL ABSOLUTE MONOCYTES (test cod e = 1068) 0.35 K/UL ABSOLUTE EOSINOPHILS (test c ode = 1040) 0.33 K/UL ABSOLUTE BASOPHILS (test cod e = 1069) 0.04 K/UL ABS IMMATURE GRANULOCYTES (t est code = 1020) 0.02 K/UL ABS NUCLEATED RBCS (test cod e = 11728) 0.00 K/UL HEMOGLOBIN [id number] 00:00:00* Test Item Value Reference Range Interpretation Comme nts HEMOGLOBIN A1c (test code = 27624) 6.2 % COMPREHENSIVE METABOLIC [id number] 00:00:00* Test Item Value Reference Range Interpretation Comme nts GLUCOSE (test code = 2217) 101 MG/DL BUN (test code = 2208) 12 MG/DL CREATININE (test code = 2214) 0.45 MG/DL eGFR AMER. (test cod e = 11930) 143 ML/MIN/1.73 eGFR NON- AMER. (test code = 05661) 124 ML/MIN/1.73 CALC BUN/CREAT (test code = 2235) 27 RATIO SODIUM (test code = 2231) 143 MEQ/L POTASSIUM (test code = 2228) 4.4 MEQ/L CHLORIDE (test code = 2215) 105 MEQ/L CARBON DIOXIDE (test code = 2206) 27 MEQ/L CALCIUM (test code = 2209) 9.4 MG/DL PROTEIN, TOTAL (test code = 2229) 7.7 G/DL ALBUMIN (test code = 2201) 4.1 G/DL CALC GLOBULIN (test code = 2240) 3.6 G/DL CALC A/G RATIO (test code = 2234) 1.1 RATIO BILIRUBIN, TOTAL (test code = 2207) 0.3 MG/DL ALKALINE PHOSPHATASE (test code = 2204) 102 U/L AST (test code = 2218) 15 U/L ALT (test code = 2219) 17 U/L TROPONIN [id number] 00:00:00* Test Item Value Reference Range Interpretation Comme nts TROPONIN T (test code = 4017) <0.010 UG/L CBC W/AUTO [id number] 00:00:00* Test Item Value Reference Range Interpretation Comme nts WBC (test code = 1001) 7.5 K/UL [...] = 1013) 0.5 % IMMATURE GRANULOCYTES (test code = 1036) 0.3 % NUCLEATED RBCS (test code = 1065) 0.0 /100WBC'S PLATELET COUNT (test code = 1015) 218 K/UL ABSOLUTE NEUTROPHILS (test c ode = 1066) 5.15 K/UL ABSOLUTE LYMPHOCYTES (test c ode = 1067) 1.63 K/UL ABSOLUTE MONOCYTES (test cod e = 1068) 0.35 K/UL ABSOLUTE EOSINOPHILS (test c ode = 1040) 0.33 K/UL ABSOLUTE BASOPHILS (test cod e = 1069) 0.04 K/UL ABS IMMATURE GRANULOCYTES (t est code = 1020) 0.02 K/UL ABS NUCLEATED RBCS (test cod e = 35195) 0.00 K/UL HEMOGLOBIN [id number] 00:00:00* Test Item Value Reference Range Interpretation Comme nts HEMOGLOBIN A1c (test code = 08479) 6.2 % COMPREHENSIVE METABOLIC [id number] 00:00:00* Test Item Value Reference Range Interpretation Comme nts GLUCOSE (test code = 2217) 101 MG/DL BUN (test code = 2208) 12 MG/DL CREATININE (test code = 2214) 0.45 MG/DL eGFR AMER. (test cod e = 13665) 143 ML/MIN/1.73 eGFR NON- AMER. (test code = 58945) 124 ML/MIN/1.73 CALC BUN/CREAT (test code = 2235) 27 RATIO SODIUM (test code = 2231) 143 MEQ/L POTASSIUM (test code = 2228) 4.4 MEQ/L CHLORIDE (test code = 2215) 105 MEQ/L CARBON DIOXIDE (test code = 2206) 27 MEQ/L CALCIUM (test code = 2209) 9.4 MG/DL PROTEIN, TOTAL (test code = 2229) 7.7 G/DL ALBUMIN (test code = 2201) 4.1 G/DL CALC GLOBULIN (test code = 2240) 3.6 G/DL CALC A/G RATIO (test code = 2234) 1.1 RATIO BILIRUBIN, TOTAL (test code = 2207) 0.3 MG/DL ALKALINE PHOSPHATASE (test code = 2204) 102 U/L AST (test code = 2218) 15 U/L ALT (test code = 2219) 17 U/L TROPONIN [id number] 00:00:00* Test Item Value Reference Range Interpretation Comme nts TROPONIN T (test code = 4017) <0.010 UG/L TROPONIN [id number] 00:00:00* Test Item Value Reference Range Interpretation Comme nts TROPONIN T (test code = 4017) <0.010 UG/L Tr SamuelCBC W/AUTO [id number] 00:00:00* Test Item Value Reference Range Interpretation Comme nts WBC (test code = 1001) 7.5 K/UL [...] = 1013) 0.5 % IMMATURE GRANULOCYTES (test code = 1036) 0.3 % NUCLEATED RBCS (test code = 1065) 0.0 /100WBC'S PLATELET COUNT (test code = 1015) 218 K/UL ABSOLUTE NEUTROPHILS (test c ode = 1066) 5.15 K/UL ABSOLUTE LYMPHOCYTES (test c ode = 1067) 1.63 K/UL ABSOLUTE MONOCYTES (test cod e = 1068) 0.35 K/UL ABSOLUTE EOSINOPHILS (test c ode = 1040) 0.33 K/UL ABSOLUTE BASOPHILS (test cod e = 1069) 0.04 K/UL ABS IMMATURE GRANULOCYTES (t est code = 1020) 0.02 K/UL ABS NUCLEATED RBCS (test cod e = 69038) 0.00 K/UL HEMOGLOBIN [id number] 00:00:00* Test Item Value Reference Range Interpretation Comme nts HEMOGLOBIN A1c (test code = 77323) 6.2 % COMPREHENSIVE METABOLIC [id number] 00:00:00* Test Item Value Reference Range Interpretation Comme nts GLUCOSE (test code = 2217) 101 MG/DL BUN (test code = 2208) 12 MG/DL CREATININE (test code = 2214) 0.45 MG/DL eGFR AMER. (test cod e = 08529) 143 ML/MIN/1.73 eGFR NON- AMER. (test code = 05123) 124 ML/MIN/1.73 CALC BUN/CREAT (test code = 2235) 27 RATIO SODIUM (test code = 2231) 143 MEQ/L POTASSIUM (test code = 2228) 4.4 MEQ/L CHLORIDE (test code = 2215) 105 MEQ/L CARBON DIOXIDE (test code = 2206) 27 MEQ/L CALCIUM (test code = 2209) 9.4 MG/DL PROTEIN, TOTAL (test code = 2229) 7.7 G/DL ALBUMIN (test code = 2201) 4.1 G/DL CALC GLOBULIN (test code = 2240) 3.6 G/DL CALC A/G RATIO (test code = 2234) 1.1 RATIO BILIRUBIN, TOTAL (test code = 2207) 0.3 MG/DL ALKALINE PHOSPHATASE (test code = 2204) 102 U/L AST (test code = 2218) 15 U/L ALT (test code = 2219) 17 U/L TROPONIN [id number] 00:00:00* Test Item Value Reference Range Interpretation Comme nts TROPONIN T (test code = 4017) <0.010 UG/L CBC W/AUTO [id number] 00:00:00* Test Item Value Reference Range Interpretation Comme nts WBC (test code = 1001) 7.5 K/UL [...] = 1013) 0.5 % IMMATURE GRANULOCYTES (test code = 1036) 0.3 % NUCLEATED RBCS (test code = 1065) 0.0 /100WBC'S PLATELET COUNT (test code = 1015) 218 K/UL ABSOLUTE NEUTROPHILS (test c ode = 1066) 5.15 K/UL ABSOLUTE LYMPHOCYTES (test c ode = 1067) 1.63 K/UL ABSOLUTE MONOCYTES (test cod e = 1068) 0.35 K/UL ABSOLUTE EOSINOPHILS (test c ode = 1040) 0.33 K/UL ABSOLUTE BASOPHILS (test cod e = 1069) 0.04 K/UL ABS IMMATURE GRANULOCYTES (t est code = 1020) 0.02 K/UL ABS NUCLEATED RBCS (test cod e = 26329) 0.00 K/UL HEMOGLOBIN [id number] 00:00:00* Test Item Value Reference Range Interpretation Comme nts HEMOGLOBIN A1c (test code = 13090) 6.2 % COMPREHENSIVE METABOLIC [id number] 00:00:00* Test Item Value Reference Range Interpretation Comme nts GLUCOSE (test code = 2217) 101 MG/DL BUN (test code = 2208) 12 MG/DL CREATININE (test code = 2214) 0.45 MG/DL eGFR AMER. (test cod e = 74870) 143 ML/MIN/1.73 eGFR NON- AMER. (test code = 06196) 124 ML/MIN/1.73 CALC BUN/CREAT (test code = 2235) 27 RATIO SODIUM (test code = 2231) 143 MEQ/L POTASSIUM (test code = 2228) 4.4 MEQ/L CHLORIDE (test code = 2215) 105 MEQ/L CARBON DIOXIDE (test code = 2206) 27 MEQ/L CALCIUM (test code = 2209) 9.4 MG/DL PROTEIN, TOTAL (test code = 2229) 7.7 G/DL ALBUMIN (test code = 2201) 4.1 G/DL CALC GLOBULIN (test code = 2240) 3.6 G/DL CALC A/G RATIO (test code = 2234) 1.1 RATIO BILIRUBIN, TOTAL (test code = 2207) 0.3 MG/DL ALKALINE PHOSPHATASE (test code = 2204) 102 U/L AST (test code = 2218) 15 U/L ALT (test code = 2219) 17 U/L TROPONIN [id number] 00:00:00* Test Item Value Reference Range Interpretation Comme nts TROPONIN T (test code = 4017) <0.010 UG/L CBC W/AUTO [id number] 00:00:00* Test Item Value Reference Range Interpretation Comme nts WBC (test code = 1001) 7.5 K/UL [...] = 1013) 0.5 % IMMATURE GRANULOCYTES (test code = 1036) 0.3 % NUCLEATED RBCS (test code = 1065) 0.0 /100WBC'S PLATELET COUNT (test code = 1015) 218 K/UL ABSOLUTE NEUTROPHILS (test c ode = 1066) 5.15 K/UL ABSOLUTE LYMPHOCYTES (test c ode = 1067) 1.63 K/UL ABSOLUTE MONOCYTES (test cod e = 1068) 0.35 K/UL ABSOLUTE EOSINOPHILS (test c ode = 1040) 0.33 K/UL ABSOLUTE BASOPHILS (test cod e = 1069) 0.04 K/UL ABS IMMATURE GRANULOCYTES (t est code = 1020) 0.02 K/UL ABS NUCLEATED RBCS (test cod e = 95431) 0.00 K/UL Tr SamuelHEMOGLOBIN [id number] 00:00:00* Test Item Value Reference Range Interpretation Comme nts HEMOGLOBIN A1c (test code = 77748) 6.2 % Tr SamuelLIPID [id number] 00:00:00* Test Item Value Reference Range Interpretation Comme nts CHOLESTEROL (test code = 2210) 166 MG/DL TRIGLYCERIDES (test code = 2232) 145 MG/DL HDL CHOLESTEROL (test code = 2220) 48 MG/DL CALC LDL CHOL (test code = 2237) 89 MG/DL RISK RATIO LDL/HDL (test cod e = 2238) 1.85 RATIO Tr SamuelCOMPREHENSIVE METABOLIC [id number] 00:00:00* Test Item Value Reference Range Interpretation Comme nts GLUCOSE (test code = 2217) 125 MG/DL BUN (test code = 2208) 16 MG/DL CREATININE (test code = 2214) 0.54 MG/DL eGFR AMER. (test cod e = 49969) 137 ML/MIN/1.73 eGFR NON- AMER. (test code = 23644) 118 ML/MIN/1.73 CALC BUN/CREAT (test code = 2235) 30 RATIO SODIUM (test code = 2231) 140 MEQ/L POTASSIUM (test code = 2228) 4.7 MEQ/L CHLORIDE (test code = 2215) 105 MEQ/L CARBON DIOXIDE (test code = 2206) 25 MEQ/L CALCIUM (test code = 2209) 9.2 MG/DL PROTEIN, TOTAL (test code = 2229) 7.8 G/DL ALBUMIN (test code = 2201) 4.3 G/DL CALC GLOBULIN (test code = 2240) 3.5 G/DL CALC A/G RATIO (test code = 2234) 1.2 RATIO BILIRUBIN, TOTAL (test code = 2207) 0.2 MG/DL ALKALINE PHOSPHATASE (test code = 2204) 114 U/L AST (test code = 2218) 17 U/L ALT (test code = 2219) 15 U/L Tr SamuelHEMOGLOBIN [id number] 00:00:00* Test Item Value Reference Range Interpretation Comme nts HEMOGLOBIN A1c (test code = 29668) 5.9 % Tr SamuelCOMPREHENSIVE METABOLIC [id number] 00:00:00* Test Item Value Reference Range Interpretation Comme nts GLUCOSE (test code = 2217) 125 MG/DL BUN (test code = 2208) 16 MG/DL CREATININE (test code = 2214) 0.54 MG/DL eGFR AMER. (test cod e = 37512) 137 ML/MIN/1.73 eGFR NON- AMER. (test code = 04564) 118 ML/MIN/1.73 CALC BUN/CREAT (test code = 2235) 30 RATIO SODIUM (test code = 2231) 140 MEQ/L POTASSIUM (test code = 2228) 4.7 MEQ/L CHLORIDE (test code = 2215) 105 MEQ/L CARBON DIOXIDE (test code = 2206) 25 MEQ/L CALCIUM (test code = 2209) 9.2 MG/DL PROTEIN, TOTAL (test code = 2229) 7.8 G/DL ALBUMIN (test code = 2201) 4.3 G/DL CALC GLOBULIN (test code = 2240) 3.5 G/DL CALC A/G RATIO (test code = 2234) 1.2 RATIO BILIRUBIN, TOTAL (test code = 2207) 0.2 MG/DL ALKALINE PHOSPHATASE (test code = 2204) 114 U/L AST (test code = 2218) 17 U/L ALT (test code = 2219) 15 U/L LIPID [id number] 00:00:00* Test Item Value Reference Range Interpretation Comme nts CHOLESTEROL (test code = 2210) 166 MG/DL TRIGLYCERIDES (test code = 2232) 145 MG/DL HDL CHOLESTEROL (test code = 2220) 48 MG/DL CALC LDL CHOL (test code = 2237) 89 MG/DL RISK RATIO LDL/HDL (test cod e = 2238) 1.85 RATIO Tr F AustinHEMOGLOBIN [id number] 00:00:00* Test Item Value Reference Range Interpretation Comme nts HEMOGLOBIN A1c (test code = 22251) 5.9 % LIPID [id number] 00:00:00* Test Item Value Reference Range Interpretation Comme nts CHOLESTEROL (test code = 2210) 166 MG/DL TRIGLYCERIDES (test code = 2232) 145 MG/DL HDL CHOLESTEROL (test code = 2220) 48 MG/DL CALC LDL CHOL (test code = 2237) 89 MG/DL RISK RATIO LDL/HDL (test cod e = 2238) 1.85 RATIO COMPREHENSIVE METABOLIC [id number] 00:00:00* Test Item Value Reference Range Interpretation Comme nts GLUCOSE (test code = 2217) 125 MG/DL BUN (test code = 2208) 16 MG/DL CREATININE (test code = 2214) 0.54 MG/DL eGFR AMER. (test cod e = 00344) 137 ML/MIN/1.73 eGFR NON- AMER. (test code = 97901) 118 ML/MIN/1.73 CALC BUN/CREAT (test code = 2235) 30 RATIO SODIUM (test code = 2231) 140 MEQ/L POTASSIUM (test code = 2228) 4.7 MEQ/L CHLORIDE (test code = 2215) 105 MEQ/L CARBON DIOXIDE (test code = 2206) 25 MEQ/L CALCIUM (test code = 2209) 9.2 MG/DL PROTEIN, TOTAL (test code = 2229) 7.8 G/DL ALBUMIN (test code = 2201) 4.3 G/DL CALC GLOBULIN (test code = 2240) 3.5 G/DL CALC A/G RATIO (test code = 2234) 1.2 RATIO BILIRUBIN, TOTAL (test code = 220) 0.2 MG/DL ALKALINE PHOSPHATASE (test code = 220) 114 U/L AST (test code = 2218) 17 U/L ALT (test code = 2219) 15 U/L HEMOGLOBIN [id number] 00:00:00* Test Item Value Reference Range Interpretation Comme nts HEMOGLOBIN A1c (test code = 21429) 5.9 % LIPID [id number] 00:00:00* Test Item Value Reference Range Interpretation Comme nts CHOLESTEROL (test code = 2210) 166 MG/DL TRIGLYCERIDES (test code = 2232) 145 MG/DL HDL CHOLESTEROL (test code = 2220) 48 MG/DL CALC LDL CHOL (test code = 2237) 89 MG/DL RISK RATIO LDL/HDL (test cod e = 2238) 1.85 RATIO COMPREHENSIVE METABOLIC [id number] 00:00:00* Test Item Value Reference Range Interpretation Comme nts GLUCOSE (test code = 2217) 125 MG/DL BUN (test code = 2208) 16 MG/DL CREATININE (test code = 2214) 0.54 MG/DL eGFR AMER. (test cod e = 09035) 137 ML/MIN/1.73 eGFR NON- AMER. (test code = 80836) 118 ML/MIN/1.73 CALC BUN/CREAT (test code = 2235) 30 RATIO SODIUM (test code = 2231) 140 MEQ/L POTASSIUM (test code = 2228) 4.7 MEQ/L CHLORIDE (test code = 2215) 105 MEQ/L CARBON DIOXIDE (test code = 2205) 25 MEQ/L CALCIUM (test code = 2209) 9.2 MG/DL PROTEIN, TOTAL (test code = 2229) 7.8 G/DL ALBUMIN (test code = 2201) 4.3 G/DL CALC GLOBULIN (test code = 2240) 3.5 G/DL CALC A/G RATIO (test code = 2234) 1.2 RATIO BILIRUBIN, TOTAL (test code = 220) 0.2 MG/DL ALKALINE PHOSPHATASE (test code = 220) 114 U/L AST (test code = 2218) 17 U/L ALT (test code = 221) 15 U/L HEMOGLOBIN [id number] 00:00:00* Test Item Value Reference Range Interpretation Comme nts HEMOGLOBIN A1c (test code = 33643) 5.9 % LIPID [id number] 00:00:00* Test Item Value Reference Range Interpretation Comme nts CHOLESTEROL (test code = 2210) 166 MG/DL TRIGLYCERIDES (test code = 2232) 145 MG/DL HDL CHOLESTEROL (test code = 0) 48 MG/DL CALC LDL CHOL (test code = 2237) 89 MG/DL RISK RATIO LDL/HDL (test cod e = 2238) 1.85 RATIO COMPREHENSIVE METABOLIC [id number] 00:00:00* Test Item Value Reference Range Interpretation Comme nts GLUCOSE (test code = 2217) 125 MG/DL BUN (test code = 8) 16 MG/DL CREATININE (test code = 2214) 0.54 MG/DL eGFR AMER. (test cod e = 51608) 137 ML/MIN/1.73 eGFR NON- AMER. (test code = 66512) 118 ML/MIN/1.73 CALC BUN/CREAT (test code = 2235) 30 RATIO SODIUM (test code = 2231) 140 MEQ/L POTASSIUM (test code = 2228) 4.7 MEQ/L CHLORIDE (test code = 2215) 105 MEQ/L CARBON DIOXIDE (test code = 2205) 25 MEQ/L CALCIUM (test code = 2209) 9.2 MG/DL PROTEIN, TOTAL (test code = 2229) 7.8 G/DL ALBUMIN (test code = 2201) 4.3 G/DL CALC GLOBULIN (test code = 2240) 3.5 G/DL CALC A/G RATIO (test code = 2234) 1.2 RATIO BILIRUBIN, TOTAL (test code = 2207) 0.2 MG/DL ALKALINE PHOSPHATASE (test code = 2204) 114 U/L AST (test code = 2218) 17 U/L ALT (test code = 2219) 15 U/L HEMOGLOBIN [id number] 00:00:00* Test Item Value Reference Range Interpretation Comme nts HEMOGLOBIN A1c (test code = 35411) 5.9 % LIPID [id number] 00:00:00* Test Item Value Reference Range Interpretation Comme nts CHOLESTEROL (test code = 2210) 166 MG/DL TRIGLYCERIDES (test code = 2232) 145 MG/DL HDL CHOLESTEROL (test code = 2220) 48 MG/DL CALC LDL CHOL (test code = 2237) 89 MG/DL RISK RATIO LDL/HDL (test cod e = 2238) 1.85 RATIO COMPREHENSIVE METABOLIC [id number] 00:00:00* Test Item Value Reference Range Interpretation Comme nts GLUCOSE (test code = 2217) 125 MG/DL BUN (test code = 2208) 16 MG/DL CREATININE (test code = 2214) 0.54 MG/DL eGFR AMER. (test cod e = 49444) 137 ML/MIN/1.73 eGFR NON- AMER. (test code = 37080) 118 ML/MIN/1.73 CALC BUN/CREAT (test code = 2235) 30 RATIO SODIUM (test code = 2231) 140 MEQ/L POTASSIUM (test code = 2228) 4.7 MEQ/L CHLORIDE (test code = 2215) 105 MEQ/L CARBON DIOXIDE (test code = 2206) 25 MEQ/L CALCIUM (test code = 2209) 9.2 MG/DL PROTEIN, TOTAL (test code = 2229) 7.8 G/DL ALBUMIN (test code = 2201) 4.3 G/DL CALC GLOBULIN (test code = 2240) 3.5 G/DL CALC A/G RATIO (test code = 2234) 1.2 RATIO BILIRUBIN, TOTAL (test code = 2207) 0.2 MG/DL ALKALINE PHOSPHATASE (test code = 2204) 114 U/L AST (test code = 2218) 17 U/L ALT (test code = 2219) 15 U/L HEMOGLOBIN [id number] 00:00:00* Test Item Value Reference Range Interpretation Comme nts HEMOGLOBIN A1c (test code = 26211) 5.9 % LIPID [id number] 00:00:00* Test Item Value Reference Range Interpretation Comme nts CHOLESTEROL (test code = 2210) 166 MG/DL TRIGLYCERIDES (test code = 2232) 145 MG/DL HDL CHOLESTEROL (test code = 2220) 48 MG/DL CALC LDL CHOL (test code = 2237) 89 MG/DL RISK RATIO LDL/HDL (test cod e = 2238) 1.85 RATIO COMPREHENSIVE METABOLIC [id number] 00:00:00* Test Item Value Reference Range Interpretation Comme nts GLUCOSE (test code = 2217) 125 MG/DL BUN (test code = 2208) 16 MG/DL CREATININE (test code = 2214) 0.54 MG/DL eGFR AMER. (test cod e = 09274) 137 ML/MIN/1.73 eGFR NON- AMER. (test code = 40578) 118 ML/MIN/1.73 CALC BUN/CREAT (test code = 2235) 30 RATIO SODIUM (test code = 2231) 140 MEQ/L POTASSIUM (test code = 2228) 4.7 MEQ/L CHLORIDE (test code = 2215) 105 MEQ/L CARBON DIOXIDE (test code = 2206) 25 MEQ/L CALCIUM (test code = 2209) 9.2 MG/DL PROTEIN, TOTAL (test code = 2229) 7.8 G/DL ALBUMIN (test code = 2201) 4.3 G/DL CALC GLOBULIN (test code = 2240) 3.5 G/DL CALC A/G RATIO (test code = 2234) 1.2 RATIO BILIRUBIN, TOTAL (test code = 2207) 0.2 MG/DL ALKALINE PHOSPHATASE (test code = 2204) 114 U/L AST (test code = 2218) 17 U/L ALT (test code = 2219) 15 U/L Tr SamuelHEMOGLOBIN [id number] 00:00:00* Test Item Value Reference Range Interpretation Comme nts HEMOGLOBIN A1c (test code = 70325) 5.9 % Tr [facility] AustinCCP [id number] 00:00:00* Test Item Value Reference Range Interpretation Comme nts CCP IgG (test code = 84007) 184 UNITS [facility] AustinCCP [id number] 00:00:00* Test Item Value Reference Range Interpretation Comme nts CCP IgG (test code = 11123) 184 UNITS [facility] AustinCC[facility] [id number] 00:00:00* Test Item Value Reference Range Interpretation Comme nts CCP IgG (test code = 53033) 184 UNITS CCP [id number] 00:00:00* Test Item Value Reference Range Interpretation Comme nts CCP IgG (test code = 41213) 184 UNITS CCP [id number] 00:00:00* Test Item Value Reference Range Interpretation Comme nts CCP IgG (test code = 13243) 184 UNITS CCP [id number] 00:00:00* Test Item Value Reference Range Interpretation Comme nts CCP IgG (test code = 62568) 184 UNITS CCP [id number] 00:00:00* Test Item Value Reference Range Interpretation Comme nts CCP IgG (test code = 34929) 184 UNITS ACUTE HEPATITIS [id number] 00:00:00* Test Item Value Reference Range Interpretation Comme nts HEPATITIS A IgM (test code = 81748) NON-REACTIVE HEPATITIS B CORE IgM (test c ode = 4644) NON-REACTIVE HEPATITIS B SURF AG (test co de = 2739) NON-REACTIVE HEPATITIS C ANTIBODY (test c ode = 4675) NON-REACTIVE INTERPRETATION HEPATITIS A: (test code = 2552) (NOTE) INTERPRETATION HEPATITIS B: (test code = 10757) (NOTE) INTERPRETATION HEPATITIS C: (test code = 82980) (NOTE) [facility] AustinC-REACTIVE [id number] 00:00:00* Test Item Value Reference Range Interpretation Comme nts C-REACTIVE PROTEIN (test cod e = 3513) 1.4 MG/DL [facility] AustinC-REACTIVE [id number] 00:00:00* Test Item Value Reference Range Interpretation Comme nts C-REACTIVE PROTEIN (test cod e = 3513) 1.4 MG/DL ACUTE HEPATITIS [id number] 00:00:00* Test Item Value Reference Range Interpretation Comme nts HEPATITIS A IgM (test code = 88622) NON-REACTIVE HEPATITIS B CORE IgM (test c ode = 4644) NON-REACTIVE HEPATITIS B SURF AG (test co de = 2739) NON-REACTIVE HEPATITIS C ANTIBODY (test c ode = 4675) NON-REACTIVE INTERPRETATION HEPATITIS A: (test code = 2552) (NOTE) INTERPRETATION HEPATITIS B: (test code = 02135) (NOTE) INTERPRETATION HEPATITIS C: (test code = 02871) (NOTE) C-REACTIVE [id number] 00:00:00* Test Item Value Reference Range Interpretation Comme nts C-REACTIVE PROTEIN (test cod e = 3513) 1.4 MG/DL ACUTE HEPATITIS [id number] 00:00:00* Test Item Value Reference Range Interpretation Comme nts HEPATITIS A IgM (test code = 27107) NON-REACTIVE HEPATITIS B CORE IgM (test c ode = 4644) NON-REACTIVE HEPATITIS B SURF AG (test co de = 2739) NON-REACTIVE HEPATITIS C ANTIBODY (test c ode = 4675) NON-REACTIVE INTERPRETATION HEPATITIS A: (test code = 2552) (NOTE) INTERPRETATION HEPATITIS B: (test code = 15918) (NOTE) INTERPRETATION HEPATITIS C: (test code = 34789) (NOTE) [facility] AustinAC[facility] HEPATITIS [id number] 00:00:00* Test Item Value Reference Range Interpretation Comme nts HEPATITIS A IgM (test code = 40861) NON-REACTIVE HEPATITIS B CORE IgM (test c ode = 4644) NON-REACTIVE HEPATITIS B SURF AG (test co de = 2739) NON-REACTIVE HEPATITIS C ANTIBODY (test c ode = 4675) NON-REACTIVE INTERPRETATION HEPATITIS A: (test code = 2552) (NOTE) INTERPRETATION HEPATITIS B: (test code = 02041) (NOTE) INTERPRETATION HEPATITIS C: (test code = 70477) (NOTE) C-REACTIVE [id number] 00:00:00* Test Item Value Reference Range Interpretation Comme nts C-REACTIVE PROTEIN (test cod e = 3513) 1.4 MG/DL ACUTE HEPATITIS [id number] 00:00:00* Test Item Value Reference Range Interpretation Comme nts HEPATITIS A IgM (test code = 97351) NON-REACTIVE HEPATITIS B CORE IgM (test c ode = 4644) NON-REACTIVE HEPATITIS B SURF AG (test co de = 2739) NON-REACTIVE HEPATITIS C ANTIBODY (test c ode = 4675) NON-REACTIVE INTERPRETATION HEPATITIS A: (test code = 2552) (NOTE) INTERPRETATION HEPATITIS B: (test code = 05047) (NOTE) INTERPRETATION HEPATITIS C: (test code = 28647) (NOTE) C-REACTIVE [id number] 00:00:00* Test Item Value Reference Range Interpretation Comme nts C-REACTIVE PROTEIN (test cod e = 3513) 1.4 MG/DL ACUTE HEPATITIS [id number] 00:00:00* Test Item Value Reference Range Interpretation Comme nts HEPATITIS A IgM (test code = 64772) NON-REACTIVE HEPATITIS B CORE IgM (test c ode = 4644) NON-REACTIVE HEPATITIS B SURF AG (test co de = 2739) NON-REACTIVE HEPATITIS C ANTIBODY (test c ode = 4675) NON-REACTIVE INTERPRETATION HEPATITIS A: (test code = 2552) (NOTE) INTERPRETATION HEPATITIS B: (test code = 06543) (NOTE) INTERPRETATION HEPATITIS C: (test code = 93255) (NOTE) C-REACTIVE [id number] 00:00:00* Test Item Value Reference Range Interpretation Comme nts C-REACTIVE PROTEIN (test cod e = 3513) 1.4 MG/DL C-REACTIVE [id number] 00:00:00* Test Item Value Reference Range Interpretation Comme nts C-REACTIVE PROTEIN (test cod e = 3513) 1.4 MG/DL Tr SamuelACUTE HEPATITIS [id number] 00:00:00* Test Item Value Reference Range Interpretation Comme nts HEPATITIS A IgM (test code = 83027) NON-REACTIVE HEPATITIS B CORE IgM (test c ode = 4644) NON-REACTIVE HEPATITIS B SURF AG (test co de = 2739) NON-REACTIVE HEPATITIS C ANTIBODY (test c ode = 4675) NON-REACTIVE INTERPRETATION HEPATITIS A: (test code = 2552) (NOTE) INTERPRETATION HEPATITIS B: (test code = 14012) (NOTE) INTERPRETATION HEPATITIS C: (test code = 34844) (NOTE) ARTHRITIS [id number] 00:00:00* Test Item Value Reference Range Interpretation Comme nts RHEUMATOID FACTOR, QUANT (test code = 3502) 54 IU/ML URIC ACID (test code = 2233) 5.1 MG/DL SEDIMENTATION RATE (test code = 1017) TEST NOT PERFORMED MM/HOUR ANTI-NUCLEAR ANTIBODIES (test code = 3506) NEGATIVE Tr SamuelVITAMIN D, 25 [id number] 00:00:00* Test Item Value Reference Range Interpretation Comme nts VITAMIN D, 25 OH (test code = 4958) 15 NG/ML Tr F AustinARTHRITIS [id number] 00:00:00* Test Item Value Reference Range Interpretation Comme nts RHEUMATOID FACTOR, QUANT (test code = 3502) 54 IU/ML URIC ACID (test code = 2233) 5.1 MG/DL SEDIMENTATION RATE (test code = 1017) TEST NOT PERFORMED MM/HOUR ANTI-NUCLEAR ANTIBODIES (test code = 3506) NEGATIVE VITAMIN D, 25 [id number] 00:00:00* Test Item Value Reference Range Interpretation Comme nts VITAMIN D, 25 OH (test code = 4958) 15 NG/ML ARTHRITIS [id number] 00:00:00* Test Item Value Reference Range Interpretation Comme nts RHEUMATOID FACTOR, QUANT (test code = 3502) 54 IU/ML URIC ACID (test code = 2233) 5.1 MG/DL SEDIMENTATION RATE (test code = 1017) TEST NOT PERFORMED MM/HOUR ANTI-NUCLEAR ANTIBODIES (test code = 3506) NEGATIVE VITAMIN D, 25 [id number] 00:00:00* Test Item Value Reference Range Interpretation Comme nts VITAMIN D, 25 OH (test code = 4958) 15 NG/ML ARTHRITIS [id number] 00:00:00* Test Item Value Reference Range Interpretation Comme nts RHEUMATOID FACTOR, QUANT (test code = 3502) 54 IU/ML URIC ACID (test code = 2233) 5.1 MG/DL SEDIMENTATION RATE (test code = 1017) TEST NOT PERFORMED MM/HOUR ANTI-NUCLEAR ANTIBODIES (test code = 3506) NEGATIVE VITAMIN D, 25 [id number] 00:00:00* Test Item Value Reference Range Interpretation Comme nts VITAMIN D, 25 OH (test code = 4958) 15 NG/ML ARTHRITIS [id number] 00:00:00* Test Item Value Reference Range Interpretation Comme nts RHEUMATOID FACTOR, QUANT (test code = 3502) 54 IU/ML URIC ACID (test code = 2233) 5.1 MG/DL SEDIMENTATION RATE (test code = 1017) TEST NOT PERFORMED MM/HOUR ANTI-NUCLEAR ANTIBODIES (test code = 3506) NEGATIVE Tr F AustinARTHRITIS [id number] 00:00:00* Test Item Value Reference Range Interpretation Comme nts RHEUMATOID FACTOR, QUANT (test code = 3502) 54 IU/ML URIC ACID (test code = 2233) 5.1 MG/DL SEDIMENTATION RATE (test code = 1017) TEST NOT PERFORMED MM/HOUR ANTI-NUCLEAR ANTIBODIES (test code = 3506) NEGATIVE VITAMIN D, 25 [id number] 00:00:00* Test Item Value Reference Range Interpretation Comme nts VITAMIN D, 25 OH (test code = 4958) 15 NG/ML VITAMIN D, 25 [id number] 00:00:00* Test Item Value Reference Range Interpretation Comme nts VITAMIN D, 25 OH (test code = 4958) 15 NG/ML [facility] AustinARTHRITIS [id number] 00:00:00* Test Item Value Reference Range Interpretation Comme nts RHEUMATOID FACTOR, QUANT (test code = 3502) 54 IU/ML URIC ACID (test code = 2233) 5.1 MG/DL SEDIMENTATION RATE (test code = 1017) TEST NOT PERFORMED MM/HOUR ANTI-NUCLEAR ANTIBODIES (test code = 3506) NEGATIVE VITAMIN D, 25 [id number] 00:00:00* Test Item Value Reference Range Interpretation Comme nts VITAMIN D, 25 OH (test code = 4958) 15 NG/ML SEDIMENTATION [id number] 00:00:00* Test Item Value Reference Range Interpretation Comme nts SEDIMENTATION RATE (test cod e = 1017) 22 MM/HOUR Tr SamuelCOMPREHENSIVE METABOLIC [id number] 00:00:00* Test Item Value Reference Range Interpretation Comme nts GLUCOSE (test code = 2217) 86 MG/DL BUN (test code = 2208) 13 MG/DL CREATININE (test code = 2214) 0.44 MG/DL eGFR AMER. (test cod e = 21630) 148 ML/MIN/1.73 eGFR NON- AMER. (test code = 57274) 128 ML/MIN/1.73 CALC BUN/CREAT (test code = 2235) 30 RATIO SODIUM (test code = 2231) 137 MEQ/L POTASSIUM (test code = 2228) 4.4 MEQ/L CHLORIDE (test code = 2215) 101 MEQ/L CARBON DIOXIDE (test code = 2206) 23 MEQ/L CALCIUM (test code = 2209) 9.4 MG/DL PROTEIN, TOTAL (test code = 2229) 8.0 G/DL ALBUMIN (test code = 2201) 4.6 G/DL CALC GLOBULIN (test code = 2240) 3.4 G/DL CALC A/G RATIO (test code = 2234) 1.4 RATIO BILIRUBIN, TOTAL (test code = 2207) 0.2 MG/DL ALKALINE PHOSPHATASE (test code = 2204) 109 U/L AST (test code = 2218) 15 U/L ALT (test code = 2219) 12 U/L Tr [facility] AustinHIGH SENSITIVITY [id number] 00:00:00* Test Item Value Reference Range Interpretation Comme nts HIGH SENSITIVITY CRP (test c ode = 44954) 10.9 MG/L Tr F AustinSEDIMENTATION [id number] 00:00:00* Test Item Value Reference Range Interpretation Comme nts SEDIMENTATION RATE (test cod e = 1017) 22 MM/HOUR [facility] AustinH[facility] SENSITIVITY [id number] 00:00:00* Test Item Value Reference Range Interpretation Comme nts HIGH SENSITIVITY CRP (test c ode = 01754) 10.9 MG/L SEDIMENTATION [id number] 00:00:00* Test Item Value Reference Range Interpretation Comme nts SEDIMENTATION RATE (test cod e = 1017) 22 MM/HOUR COMPREHENSIVE METABOLIC [id number] 00:00:00* Test Item Value Reference Range Interpretation Comme nts GLUCOSE (test code = 2217) 86 MG/DL BUN (test code = 2208) 13 MG/DL CREATININE (test code = 2214) 0.44 MG/DL eGFR AMER. (test cod e = 63184) 148 ML/MIN/1.73 eGFR NON- AMER. (test code = 86882) 128 ML/MIN/1.73 CALC BUN/CREAT (test code = 2235) 30 RATIO SODIUM (test code = 2231) 137 MEQ/L POTASSIUM (test code = 2228) 4.4 MEQ/L CHLORIDE (test code = 2215) 101 MEQ/L CARBON DIOXIDE (test code = 2206) 23 MEQ/L CALCIUM (test code = 2209) 9.4 MG/DL PROTEIN, TOTAL (test code = 2229) 8.0 G/DL ALBUMIN (test code = 2201) 4.6 G/DL CALC GLOBULIN (test code = 2240) 3.4 G/DL CALC A/G RATIO (test code = 2234) 1.4 RATIO BILIRUBIN, TOTAL (test code = 2207) 0.2 MG/DL ALKALINE PHOSPHATASE (test code = 2204) 109 U/L AST (test code = 2218) 15 U/L ALT (test code = 2219) 12 U/L Tr SamuelCOMPREHENSIVE METABOLIC [id number] 00:00:00* Test Item Value Reference Range Interpretation Comme nts GLUCOSE (test code = 2217) 86 MG/DL BUN (test code = 2208) 13 MG/DL CREATININE (test code = 2214) 0.44 MG/DL eGFR AMER. (test cod e = 57141) 148 ML/MIN/1.73 eGFR NON- AMER. (test code = 08993) 128 ML/MIN/1.73 CALC BUN/CREAT (test code = 2235) 30 RATIO SODIUM (test code = 2231) 137 MEQ/L POTASSIUM (test code = 2228) 4.4 MEQ/L CHLORIDE (test code = 2215) 101 MEQ/L CARBON DIOXIDE (test code = 2206) 23 MEQ/L CALCIUM (test code = 2209) 9.4 MG/DL PROTEIN, TOTAL (test code = 2229) 8.0 G/DL ALBUMIN (test code = 2201) 4.6 G/DL CALC GLOBULIN (test code = 2240) 3.4 G/DL CALC A/G RATIO (test code = 2234) 1.4 RATIO BILIRUBIN, TOTAL (test code = 2207) 0.2 MG/DL ALKALINE PHOSPHATASE (test code = 2204) 109 U/L AST (test code = 2218) 15 U/L ALT (test code = 2219) 12 U/L HIGH SENSITIVITY [id number] 00:00:00* Test Item Value Reference Range Interpretation Comme nts HIGH SENSITIVITY CRP (test c ode = 54190) 10.9 MG/L SEDIMENTATION [id number] 00:00:00* Test Item Value Reference Range Interpretation Comme nts SEDIMENTATION RATE (test cod e = 1017) 22 MM/HOUR COMPREHENSIVE METABOLIC [id number] 00:00:00* Test Item Value Reference Range Interpretation Comme nts GLUCOSE (test code = 2217) 86 MG/DL BUN (test code = 2208) 13 MG/DL CREATININE (test code = 2214) 0.44 MG/DL eGFR AMER. (test cod e = 66519) 148 ML/MIN/1.73 eGFR NON- AMER. (test code = 56374) 128 ML/MIN/1.73 CALC BUN/CREAT (test code = 2235) 30 RATIO SODIUM (test code = 2231) 137 MEQ/L POTASSIUM (test code = 2228) 4.4 MEQ/L CHLORIDE (test code = 2215) 101 MEQ/L CARBON DIOXIDE (test code = 2206) 23 MEQ/L CALCIUM (test code = 2209) 9.4 MG/DL PROTEIN, TOTAL (test code = 2229) 8.0 G/DL ALBUMIN (test code = 2201) 4.6 G/DL CALC GLOBULIN (test code = 2240) 3.4 G/DL CALC A/G RATIO (test code = 2234) 1.4 RATIO BILIRUBIN, TOTAL (test code = 2207) 0.2 MG/DL ALKALINE PHOSPHATASE (test code = 2204) 109 U/L AST (test code = 2218) 15 U/L ALT (test code = 2219) 12 U/L HIGH SENSITIVITY [id number] 00:00:00* Test Item Value Reference Range Interpretation Comme nts HIGH SENSITIVITY CRP (test c ode = 81190) 10.9 MG/L SEDIMENTATION [id number] 00:00:00* Test Item Value Reference Range Interpretation Comme nts SEDIMENTATION RATE (test cod e = 1017) 22 MM/HOUR COMPREHENSIVE METABOLIC [id number] 00:00:00* Test Item Value Reference Range Interpretation Comme nts GLUCOSE (test code = 2217) 86 MG/DL BUN (test code = 2208) 13 MG/DL CREATININE (test code = 2214) 0.44 MG/DL eGFR AMER. (test cod e = 56635) 148 ML/MIN/1.73 eGFR NON- AMER. (test code = 07530) 128 ML/MIN/1.73 CALC BUN/CREAT (test code = 2235) 30 RATIO SODIUM (test code = 2231) 137 MEQ/L POTASSIUM (test code = 2228) 4.4 MEQ/L CHLORIDE (test code = 2215) 101 MEQ/L CARBON DIOXIDE (test code = 2206) 23 MEQ/L CALCIUM (test code = 2209) 9.4 MG/DL PROTEIN, TOTAL (test code = 2229) 8.0 G/DL ALBUMIN (test code = 2201) 4.6 G/DL CALC GLOBULIN (test code = 2240) 3.4 G/DL CALC A/G RATIO (test code = 2234) 1.4 RATIO BILIRUBIN, TOTAL (test code = 2207) 0.2 MG/DL ALKALINE PHOSPHATASE (test code = 2204) 109 U/L AST (test code = 2218) 15 U/L ALT (test code = 2219) 12 U/L HIGH SENSITIVITY [id number] 00:00:00* Test Item Value Reference Range Interpretation Comme nts HIGH SENSITIVITY CRP (test c ode = 26035) 10.9 MG/L SEDIMENTATION [id number] 00:00:00* Test Item Value Reference Range Interpretation Comme nts SEDIMENTATION RATE (test cod e = 1017) 22 MM/HOUR COMPREHENSIVE METABOLIC [id number] 00:00:00* Test Item Value Reference Range Interpretation Comme nts GLUCOSE (test code = 2217) 86 MG/DL BUN (test code = 2208) 13 MG/DL CREATININE (test code = 2214) 0.44 MG/DL eGFR AMER. (test cod e = 37630) 148 ML/MIN/1.73 eGFR NON- AMER. (test code = 05138) 128 ML/MIN/1.73 CALC BUN/CREAT (test code = 2235) 30 RATIO SODIUM (test code = 2231) 137 MEQ/L POTASSIUM (test code = 2228) 4.4 MEQ/L CHLORIDE (test code = 2215) 101 MEQ/L CARBON DIOXIDE (test code = 2206) 23 MEQ/L CALCIUM (test code = 2209) 9.4 MG/DL PROTEIN, TOTAL (test code = 2229) 8.0 G/DL ALBUMIN (test code = 2201) 4.6 G/DL CALC GLOBULIN (test code = 2240) 3.4 G/DL CALC A/G RATIO (test code = 2234) 1.4 RATIO BILIRUBIN, TOTAL (test code = 2207) 0.2 MG/DL ALKALINE PHOSPHATASE (test code = 2204) 109 U/L AST (test code = 2218) 15 U/L ALT (test code = 2219) 12 U/L HIGH SENSITIVITY [id number] 00:00:00* Test Item Value Reference Range Interpretation Comme nts HIGH SENSITIVITY CRP (test c ode = 44741) 10.9 MG/L Tr SamuelHIGH SENSITIVITY [id number] 00:00:00* Test Item Value Reference Range Interpretation Comme nts HIGH SENSITIVITY CRP (test c ode = 17425) 10.9 MG/L COMPREHENSIVE METABOLIC [id number] 00:00:00* Test Item Value Reference Range Interpretation Comme nts GLUCOSE (test code = 2217) 86 MG/DL BUN (test code = 2208) 13 MG/DL CREATININE (test code = 2214) 0.44 MG/DL eGFR AMER. (test cod e = 33792) 148 ML/MIN/1.73 eGFR NON- AMER. (test code = 69780) 128 ML/MIN/1.73 CALC BUN/CREAT (test code = 2235) 30 RATIO SODIUM (test code = 2231) 137 MEQ/L POTASSIUM (test code = 2228) 4.4 MEQ/L CHLORIDE (test code = 2215) 101 MEQ/L CARBON DIOXIDE (test code = 2206) 23 MEQ/L CALCIUM (test code = 2209) 9.4 MG/DL PROTEIN, TOTAL (test code = 2229) 8.0 G/DL ALBUMIN (test code = 2201) 4.6 G/DL CALC GLOBULIN (test code = 2240) 3.4 G/DL CALC A/G RATIO (test code = 2234) 1.4 RATIO BILIRUBIN, TOTAL (test code = 2207) 0.2 MG/DL ALKALINE PHOSPHATASE (test code = 2204) 109 U/L AST (test code = 2218) 15 U/L ALT (test code = 2219) 12 U/L SEDIMENTATION [id number] 00:00:00* Test Item Value Reference Range Interpretation Comme nts SEDIMENTATION RATE (test cod e = 1017) 22 MM/HOUR HEMOGLOBIN [id number] 00:00:00* Test Item Value Reference Range Interpretation Comme nts HEMOGLOBIN A1c (test code = 66342) 6.1 % Tr [id number] 00:00:00* Test Item Value Reference Range Interpretation Comme nts TSH (test code = 2821) 1.06 UIU/ML Tr SamuelCBC W/AUTO [id number] 00:00:00* Test Item Value Reference Range Interpretation Comme nts WBC (test code = 1001) 6.8 K/UL [...] K/UL COMMENTS (test code = 1016) (NOTE) Tr SamuelLIPID [id number] 00:00:00* Test Item Value Reference Range Interpretation Comme nts CHOLESTEROL (test code = 2210) 127 MG/DL TRIGLYCERIDES (test code = 2232) 108 MG/DL HDL CHOLESTEROL (test code = 2220) 33 MG/DL CALC LDL CHOL (test code = 2237) 72 MG/DL RISK RATIO LDL/HDL (test cod e = 2238) 2.19 RATIO Tr SamuelCOMPREHENSIVE METABOLIC [id number] 00:00:00* Test Item Value Reference Range Interpretation Comme nts GLUCOSE (test code = 2217) 99 MG/DL BUN (test code = 2208) 7 MG/DL CREATININE (test code = 2214) 0.47 MG/DL eGFR AMER. (test cod e = 75420) 146 ML/MIN/1.73 eGFR NON- AMER. (test code = 80582) 126 ML/MIN/1.73 CALC BUN/CREAT (test code = 2235) 15 RATIO SODIUM (test code = 2231) 142 MEQ/L POTASSIUM (test code = 2228) 4.2 MEQ/L CHLORIDE (test code = 2215) 103 MEQ/L CARBON DIOXIDE (test code = 2206) 24 MEQ/L CALCIUM (test code = 2209) 9.4 MG/DL PROTEIN, TOTAL (test code = 2229) 8.0 G/DL ALBUMIN (test code = 2201) 3.8 G/DL CALC GLOBULIN (test code = 2240) 4.2 G/DL CALC A/G RATIO (test code = 2234) 0.9 RATIO BILIRUBIN, TOTAL (test code = 2207) 0.3 MG/DL ALKALINE PHOSPHATASE (test code = 2204) 109 U/L AST (test code = 2218) 23 U/L ALT (test code = 2219) 24 U/L Tr SamuelHEMOGLOBIN [id number] 00:00:00* Test Item Value Reference Range Interpretation Comme irineo HEMOGLOBIN A1c (test code = 00183) 6.1 % Tr [id number] 00:00:00* Test Item Value Reference Range Interpretation Comme irineo TSH (test code = 2821) 1.06 UIU/ML Tr SamuelCBC W/AUTO [id number] 00:00:00* Test Item Value Reference Range Interpretation Comme nts WBC (test code = 1001) 6.8 K/UL [...] COMMENTS (test code = 1016) (NOTE) LIPID [id number] 00:00:00* Test Item Value Reference Range Interpretation Comme nts CHOLESTEROL (test code = 2210) 127 MG/DL TRIGLYCERIDES (test code = 2232) 108 MG/DL HDL CHOLESTEROL (test code = 2220) 33 MG/DL CALC LDL CHOL (test code = 2237) 72 MG/DL RISK RATIO LDL/HDL (test cod e = 2238) 2.19 RATIO COMPREHENSIVE METABOLIC [id number] 00:00:00* Test Item Value Reference Range Interpretation Comme nts GLUCOSE (test code = 2217) 99 MG/DL BUN (test code = 2208) 7 MG/DL CREATININE (test code = 2214) 0.47 MG/DL eGFR AMER. (test cod e = 06907) 146 ML/MIN/1.73 eGFR NON- AMER. (test code = 07815) 126 ML/MIN/1.73 CALC BUN/CREAT (test code = 2235) 15 RATIO SODIUM (test code = 2231) 142 MEQ/L POTASSIUM (test code = 2228) 4.2 MEQ/L CHLORIDE (test code = 2215) 103 MEQ/L CARBON DIOXIDE (test code = 2206) 24 MEQ/L CALCIUM (test code = 2209) 9.4 MG/DL PROTEIN, TOTAL (test code = 2229) 8.0 G/DL ALBUMIN (test code = 2201) 3.8 G/DL CALC GLOBULIN (test code = 2240) 4.2 G/DL CALC A/G RATIO (test code = 2234) 0.9 RATIO BILIRUBIN, TOTAL (test code = 2207) 0.3 MG/DL ALKALINE PHOSPHATASE (test code = 2204) 109 U/L AST (test code = 2218) 23 U/L ALT (test code = 2219) 24 U/L HEMOGLOBIN [id number] 00:00:00* Test Item Value Reference Range Interpretation Comme nts HEMOGLOBIN A1c (test code = 45087) 6.1 % [id number] 00:00:00* Test Item Value Reference Range Interpretation Comme nts TSH (test code = 2821) 1.06 UIU/ML CBC W/AUTO [id number] 00:00:00* Test Item Value Reference Range Interpretation Comme nts WBC (test code = 1001) 6.8 K/UL [...] (test code = 1016) (NOTE) CBC W/AUTO [id number] 00:00:00* Test Item Value Reference Range Interpretation Comme nts WBC (test code = 1001) 6.8 K/UL [...] K/UL COMMENTS (test code = 1016) (NOTE) Tr Hall AustinLIPID [id number] 00:00:00* Test Item Value Reference Range Interpretation Comme nts CHOLESTEROL (test code = 2210) 127 MG/DL TRIGLYCERIDES (test code = 2232) 108 MG/DL HDL CHOLESTEROL (test code = 2220) 33 MG/DL CALC LDL CHOL (test code = 2237) 72 MG/DL RISK RATIO LDL/HDL (test cod e = 2238) 2.19 RATIO COMPREHENSIVE METABOLIC [id number] 00:00:00* Test Item Value Reference Range Interpretation Comme nts GLUCOSE (test code = 2217) 99 MG/DL BUN (test code = 2208) 7 MG/DL CREATININE (test code = 2214) 0.47 MG/DL eGFR AMER. (test cod e = 61908) 146 ML/MIN/1.73 eGFR NON- AMER. (test code = 56360) 126 ML/MIN/1.73 CALC BUN/CREAT (test code = 2235) 15 RATIO SODIUM (test code = 2231) 142 MEQ/L POTASSIUM (test code = 2228) 4.2 MEQ/L CHLORIDE (test code = 2215) 103 MEQ/L CARBON DIOXIDE (test code = 2206) 24 MEQ/L CALCIUM (test code = 2209) 9.4 MG/DL PROTEIN, TOTAL (test code = 2229) 8.0 G/DL ALBUMIN (test code = 2201) 3.8 G/DL CALC GLOBULIN (test code = 2240) 4.2 G/DL CALC A/G RATIO (test code = 2234) 0.9 RATIO BILIRUBIN, TOTAL (test code = 2207) 0.3 MG/DL ALKALINE PHOSPHATASE (test code = 2204) 109 U/L AST (test code = 2218) 23 U/L ALT (test code = 2219) 24 U/L HEMOGLOBIN [id number] 00:00:00* Test Item Value Reference Range Interpretation Comme [facility] HEMOGLOBIN A1c (test code = 34569) 6.1 % [id number] 00:00:00* Test Item Value Reference Range Interpretation Comme nts TSH (test code = 2821) 1.06 UIU/ML CBC W/AUTO [id number] 00:00:00* Test Item Value Reference Range Interpretation Comme nts WBC (test code = 1001) 6.8 K/UL [...] COMMENTS (test code = 1016) (NOTE) LIPID [id number] 00:00:00* Test Item Value Reference Range Interpretation Comme nts CHOLESTEROL (test code = 2210) 127 MG/DL TRIGLYCERIDES (test code = 2232) 108 MG/DL HDL CHOLESTEROL (test code = 2220) 33 MG/DL CALC LDL CHOL (test code = 2237) 72 MG/DL RISK RATIO LDL/HDL (test cod e = 2238) 2.19 RATIO COMPREHENSIVE METABOLIC [id number] 00:00:00* Test Item Value Reference Range Interpretation Comme nts GLUCOSE (test code = 2217) 99 MG/DL BUN (test code = 2208) 7 MG/DL CREATININE (test code = 2214) 0.47 MG/DL eGFR AMER. (test cod e = 61598) 146 ML/MIN/1.73 eGFR NON- AMER. (test code = 91299) 126 ML/MIN/1.73 CALC BUN/CREAT (test code = 2235) 15 RATIO SODIUM (test code = 2231) 142 MEQ/L POTASSIUM (test code = 2228) 4.2 MEQ/L CHLORIDE (test code = 2215) 103 MEQ/L CARBON DIOXIDE (test code = 2206) 24 MEQ/L CALCIUM (test code = 2209) 9.4 MG/DL PROTEIN, TOTAL (test code = 2229) 8.0 G/DL ALBUMIN (test code = 2201) 3.8 G/DL CALC GLOBULIN (test code = 2240) 4.2 G/DL CALC A/G RATIO (test code = 2234) 0.9 RATIO BILIRUBIN, TOTAL (test code = 2207) 0.3 MG/DL ALKALINE PHOSPHATASE (test code = 2204) 109 U/L AST (test code = 2218) 23 U/L ALT (test code = 2219) 24 U/L HEMOGLOBIN [id number] 00:00:00* Test Item Value Reference Range Interpretation Comme nts HEMOGLOBIN A1c (test code = 45762) 6.1 % [id number] 00:00:00* Test Item Value Reference Range Interpretation Comme nts TSH (test code = 2821) 1.06 UIU/ML CBC W/AUTO [id number] 00:00:00* Test Item Value Reference Range Interpretation Comme nts WBC (test code = 1001) 6.8 K/UL [...] COMMENTS (test code = 1016) (NOTE) LIPID [id number] 00:00:00* Test Item Value Reference Range Interpretation Comme nts CHOLESTEROL (test code = 2210) 127 MG/DL TRIGLYCERIDES (test code = 2232) 108 MG/DL HDL CHOLESTEROL (test code = 2220) 33 MG/DL CALC LDL CHOL (test code = 2237) 72 MG/DL RISK RATIO LDL/HDL (test cod e = 2238) 2.19 RATIO COMPREHENSIVE METABOLIC [id number] 00:00:00* Test Item Value Reference Range Interpretation Comme nts GLUCOSE (test code = 2217) 99 MG/DL BUN (test code = 2208) 7 MG/DL CREATININE (test code = 2214) 0.47 MG/DL eGFR AMER. (test cod e = 16146) 146 ML/MIN/1.73 eGFR NON- AMER. (test code = 60427) 126 ML/MIN/1.73 CALC BUN/CREAT (test code = 2235) 15 RATIO SODIUM (test code = 2231) 142 MEQ/L POTASSIUM (test code = 2228) 4.2 MEQ/L CHLORIDE (test code = 2215) 103 MEQ/L CARBON DIOXIDE (test code = 2206) 24 MEQ/L CALCIUM (test code = 2209) 9.4 MG/DL PROTEIN, TOTAL (test code = 2229) 8.0 G/DL ALBUMIN (test code = 2201) 3.8 G/DL CALC GLOBULIN (test code = 2240) 4.2 G/DL CALC A/G RATIO (test code = 2234) 0.9 RATIO BILIRUBIN, TOTAL (test code = 2207) 0.3 MG/DL ALKALINE PHOSPHATASE (test code = 2204) 109 U/L AST (test code = 2218) 23 U/L ALT (test code = 2219) 24 U/L HEMOGLOBIN [id number] 00:00:00* Test Item Value Reference Range Interpretation Comme nts HEMOGLOBIN A1c (test code = 40554) 6.1 % [id number] 00:00:00* Test Item Value Reference Range Interpretation Comme nts TSH (test code = 2821) 1.06 UIU/ML CBC W/AUTO [id number] 00:00:00* Test Item Value Reference Range Interpretation Comme nts WBC (test code = 1001) 6.8 K/UL [...] COMMENTS (test code = 1016) (NOTE) LIPID [id number] 00:00:00* Test Item Value Reference Range Interpretation Comme nts CHOLESTEROL (test code = 2210) 127 MG/DL TRIGLYCERIDES (test code = 2232) 108 MG/DL HDL CHOLESTEROL (test code = 2220) 33 MG/DL CALC LDL CHOL (test code = 2237) 72 MG/DL RISK RATIO LDL/HDL (test cod e = 2238) 2.19 RATIO Tr F AustinLIPID [id number] 00:00:00* Test Item Value Reference Range Interpretation Comme nts CHOLESTEROL (test code = 2210) 127 MG/DL TRIGLYCERIDES (test code = 2232) 108 MG/DL HDL CHOLESTEROL (test code = 2220) 33 MG/DL CALC LDL CHOL (test code = 2237) 72 MG/DL RISK RATIO LDL/HDL (test cod e = 2238) 2.19 RATIO COMPREHENSIVE METABOLIC [id number] 00:00:00* Test Item Value Reference Range Interpretation Comme nts GLUCOSE (test code = 2217) 99 MG/DL BUN (test code = 2208) 7 MG/DL CREATININE (test code = 2214) 0.47 MG/DL eGFR AMER. (test cod e = 24795) 146 ML/MIN/1.73 eGFR NON- AMER. (test code = 01207) 126 ML/MIN/1.73 CALC BUN/CREAT (test code = 2235) 15 RATIO SODIUM (test code = 2231) 142 MEQ/L POTASSIUM (test code = 2228) 4.2 MEQ/L CHLORIDE (test code = 2215) 103 MEQ/L CARBON DIOXIDE (test code = 2206) 24 MEQ/L CALCIUM (test code = 2209) 9.4 MG/DL PROTEIN, TOTAL (test code = 2229) 8.0 G/DL ALBUMIN (test code = 2201) 3.8 G/DL CALC GLOBULIN (test code = 2240) 4.2 G/DL CALC A/G RATIO (test code = 2234) 0.9 RATIO BILIRUBIN, TOTAL (test code = 2207) 0.3 MG/DL ALKALINE PHOSPHATASE (test code = 2204) 109 U/L AST (test code = 2218) 23 U/L ALT (test code = 2219) 24 U/L HEMOGLOBIN [id number] 00:00:00* Test Item Value Reference Range Interpretation Comme nts HEMOGLOBIN A1c (test code = 65726) 6.1 % [id number] 00:00:00* Test Item Value Reference Range Interpretation Comme nts TSH (test code = 2821) 1.06 UIU/ML COMPREHENSIVE METABOLIC [id number] 00:00:00* Test Item Value Reference Range Interpretation Comme nts GLUCOSE (test code = 2217) 99 MG/DL BUN (test code = 2208) 7 MG/DL CREATININE (test code = 2214) 0.47 MG/DL eGFR AMER. (test cod e = 48612) 146 ML/MIN/1.73 eGFR NON- AMER. (test code = 36385) 126 ML/MIN/1.73 CALC BUN/CREAT (test code = 2235) 15 RATIO SODIUM (test code = 2231) 142 MEQ/L POTASSIUM (test code = 2228) 4.2 MEQ/L CHLORIDE (test code = 2215) 103 MEQ/L CARBON DIOXIDE (test code = 2206) 24 MEQ/L CALCIUM (test code = 2209) 9.4 MG/DL PROTEIN, TOTAL (test code = 2229) 8.0 G/DL ALBUMIN (test code = 2201) 3.8 G/DL CALC GLOBULIN (test code = 2240) 4.2 G/DL CALC A/G RATIO (test code = 2234) 0.9 RATIO BILIRUBIN, TOTAL (test code = 2207) 0.3 MG/DL ALKALINE PHOSPHATASE (test code = 2204) 109 U/L AST (test code = 2218) 23 U/L ALT (test code = 2219) 24 U/L Tr [facility] Jimmie Notes Date/Time Note Provider Source [facility]2025-03-03 00:00:00 [facility]2024-12-19 08:46:37 Chief Complaint Patient presents with Pre-Op Exam Dental clearance. REFILLS-NURSE/MD She would like to try a different inhaler. The one she has isn't working Brittny Medley MA II [facility] Brittny Medley MA [facility]2024-06-27 15:59:27* PROCEDURE INFORMATION: Exam: XR Chest Exam date and time: 08/10/2023 2:51 PM Age: 43 years old Clinical indication: Wheezing; Additional info: /r06.2 wheezing TECHNIQUE: Imaging protocol: Radiologic exam of the chest. Views: 2 views. PA and Lateral COMPARISON: No relevant prior studies available. FINDINGS: Tubes, catheters and devices: Overlying shunt catheter. Lungs: No airspace consolidation. Pleural spaces: No pleural effusion. No pneumothorax. Heart/Mediastinum: Cardiac silhouette is within normal limits. Bones/joints: No acute abnormality seen. IMPRESSION: No acute airspace consolidation. Inderjit Jade MD On 08/10/2023 16:07:38; [id number] OPID [id number] 01:56:04 Pt given printed and verbal discharge instructions regarding headache, SOB, chest pain, and acute cough Prescriptions provided Pt verbalized understanding of instructions, pt awake alert oriented, resp reg unlabored, skin w/d,color appropriate for race, moves all ext well,pt encouraged to follow up with pcp Advised to seek medical attention for new/prolonged/worsening of symptoms No adverse reaction to meds given in ER noted upon discharge PIV d'cd, dressing to site, catheter in tact. Awake, alert oriented, resp reg unlabored, skin w/d, pt leaving amb with steady gait, in no apparent distress [id number] 22:17:07 Pt to ed with family via pov. Alert. C/o SOB and CP that started approx Monday with worsening of symptoms. Patient hx of asthma. O2 89 on RA. Albuterol inhl. 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 Denies fever Domenica Lucia [facility] HospitalGbbulh8843-[facility]-16 21:53:00 [facility] Emergency Department Note Patient Name: Kina Parham Date of : 1980 42 year old female Treatment Room: [facility] Primary Care Physician: Jericho Coffey Patient Escorted by: Family [5] Mode of Arrival: Personal means [1] EMS Treatment Prior to ED Arrival: LATH HAND treatment: Other (comment) LATH HAND treatment comments: Albuteral 2 puffs Travel and Exposure Screening: Symptoms Does patient have any of these symptoms?: (not recorded) Exposure Screening Has patient had contact with someone with a communicable disease in the last month?: (not recorded) Diseases exposed to:: (not recorded) Is Patient ?: (not recorded) Exposure Date: (not recorded) Chief Complaint: Chief Complaint Patient presents with • Shortness of Breath Chest pain History of Present Illness: HPI 42yo morbidly obese F with h/o IIH s/p GLAZE CARRIER shunt, asthma, HTN presents today with headache,SOB, chest pains. She states she has also been nauseated but no vomiting and doesn't take any meds but her lisinopril. She states she tried albuterol inhaler at home but it didn't help. She states she has been feeling this way for several days. Past Medical History/Immunizations: Past Medical History: Diagnosis Date • Asthma • Body mass index 40 and over, adult • Hypertension • IIH (idiopathic intracranial hypertension) • Insufficient care • Morbid obesity • S/P GLAZE CARRIER shunt Tetanus received in last 5 years: Unknown Childhood immunizations: Up-to-date Allergies: No Known Allergies Past Social History: Tobacco Use Never smoked or used smokeless tobacco. Passive Exposure: Never Alcohol Use Not Currently. Drug Use Not Currently. Sexual Activity Sexually active; Partners: Male. Past Surgical History: Past Surgical History: Procedure Laterality Date • CEREBROSPINAL FLUID SHUNT INSERTION Right 05/06/2022 Surgeon: Jordan Grimaldo MD; Location: [facility] OR LOCATION • TUBAL LIGATION Review of Systems: Review of Systems Constitutional: Negative for activity change, diaphoresis, fatigue, fever and weight gain. HENT: Negative for congestion, ear pain, rhinorrhea, sore throat, tinnitus and trouble swallowing. Eyes: Negative for discharge and visual disturbance. Respiratory: Positive for cough, chest tightness and shortness of breath. Breasts: Negative for pain. Cardiovascular: Negative for chest pain and palpitations. Gastrointestinal: Positive for nausea. Negative for abdominal pain and vomiting. Genitourinary: Negative for dysuria, hematuria and difficulty urinating. Musculoskeletal: Negative for joint swelling. Skin: Negative for rash and wound. Neurological: Positive for headaches. Negative for dizziness. Psychiatric/Behavioral: Negative for agitation and confusion. The patient is not nervous/anxious. Hematological: Does not bruise/bleed easily. Endocrine: Negative for weight gain. Physical Exam: ED Triage Vitals [09/07/22 2218] Weight 131.5 kg (290 lb) Actual or estimated Actual Height 1.524 m (5') BP (!) 157/109 Pulse 84 Resp 24 Temp 36.6 ?C (97.8 ?F) Temp source Oral SpO2 96 % Measured on On oxygen Physical Exam Vitals reviewed. Constitutional: Appearance: She is well-developed. She is obese. HENT: Head: Normocephalic and atraumatic. Eyes: Conjunctiva/sclera: Conjunctivae normal. Cardiovascular: Rate and Rhythm: Normal rate and regular rhythm. Heart sounds: Normal heart sounds. No murmur heard. Pulmonary: Effort: Pulmonary effort is normal. Breath sounds: No stridor. Wheezing present. Comments: Hypoxia of 87% on room air Abdominal: General: Bowel sounds are normal. Palpations: Abdomen is soft. Tenderness: There is no abdominal tenderness. Musculoskeletal: General: Normal range of motion. Cervical back: Neck supple. Skin: General: Skin is warm and dry. Capillary Refill: Capillary refill takes less than 2 seconds. Neurological: Mental Status: She is alert and oriented to person, place, and time. Cranial Nerves: No cranial nerve deficit. Psychiatric: Behavior: Behavior normal. Radiology: No orders to display Lab Results: Lab Results COMP. METABOLIC PANEL (89769) - Abnormal Result Value Ref Range NA [...] and Treatments: Orders Placed This Encounter Procedures • XR CHEST 1 VW • CT HEAD WO CONTRAST • N-TERMINAL PRO-BNP • COMP. METABOLIC PANEL (53878) • CBC WITH DIFF • TROPONIN I • NASAL CANNULA Orders Placed This Encounter Medications • albuterol (PROVENTIL) 2.5 mg /3 mL (0.083 %) nebulizer solution 7.5 mg • ipratropium-albuteroL (DUONEB) 0.5 mg-3 mg(2.5 mg base)/3 mL nebulizer solution 3 mL • methylPREDNISolone sod succ (SOLU-MEDROL (PF)) injection 40 mg First Provider Eval: ED Events Date/Time Event User Comments 09/07/222208 Medical Screening Begins RENATA ACOSTA MD -- 09/07/222208 First Provider Evaluation RENATA ACOSTA MD -- ED COURSE Diagnosis/Impression as of 09/08/22 0137 SOB (shortness of breath) Chest pain, unspecified type Acute cough Headache disorder Procedures: Procedures MDM: Medical Decision Making Patient is desatting and requiring oxygen, lungs are wheezy Given nebs and steroids IV Labs ordered and CXR started CT head ordered to check on shunt Signed out to [facility] to reassess Problems Addressed: Acute cough: acute illness or injury Chest pain, unspecified type: acute illness or injury SOB (shortness of breath): acute illness or injury Amount and/or Complexity of Data Reviewed Labs: ordered. Radiology: ordered. ECG/medicine tests: ordered and independent interpretation performed. Risk Prescription drug management. Flowsheet Documentation: Scoring Tools: No data recorded Disposition/Condition: ED Disposition None Discharge Medications: Patient's Medications START taking these medications No medications on file CONTINUE taking these medications which have NOT CHANGED ACETAZOLAMIDE 250 MG TABLET Take 2 tablets by mouth 3 (three) times daily. ALBUTEROL 90 MCG/ACTUATION INHALER Inhale 2 Puffs every 4 (four) hours as needed for Wheezing or Shortness of Breath. AMLODIPINE 5 MG TABLET Take 1 tablet by mouth daily. BUDESONIDE-FORMOTEROL 160-4.5 MCG/ACTUATION INHALER Inhale 2 Puffs as needed. DIPHENHYDRAMINE 25 MG TABLET Take 1 tablet by mouth every 6 (six) hours as needed for Itching or Allergies. DOCUSATE 100 MG CAPSULE Take 1 capsule by mouth once daily as needed for Constipation. HYDROCODONE-ACETAMINOPHEN (NORCO) 5-325 MG TABLET Take 1 tablet by mouth every 6 (six) hours as needed for Pain (scale 7-10). Indications: acute pain LISINOPRIL 10 MG TABLET Take 1 tablet by mouth daily. MELATONIN 3 MG TABLET Take 1 tablet by mouth at bedtime. ONDANSETRON (ZOFRAN) 4 MG TABLET Take 1 tablet by mouth every 8 (eight) hours as needed for Nausea and Vomiting (N/V). TOPIRAMATE 50 MG TABLET Take 1 tablet by mouth 2 (two) times daily. START taking Modified Medications as Prescribed No medications on file STOP taking these medications No medications on file Follow-up: Electronically signed by: Renata Acosta DO 09/07/222326 [facility] - [id number] 21:53:00 [facility] ED Transfer of Care Note. Off-going Physician:Dr KRISHNA Time of Transfer of Care: 1:43 AM Summary: Kina Parham is a 42 year old female presenting with chief complaint headache, SOB, Chest PAin. Pending prior to disposition: Imaging Current interventions: Medications albuterol (PROVENTIL) 2.5 mg /3 mL (0.083 %) nebulizer solution 7.5 mg (7.5 mg Inhalation Given 09/07/222231) ipratropium-albuteroL (DUONEB) 0.5 mg-3 mg(2.5 mg base)/3 mL nebulizer solution 3 mL (3 mL Inhalation Given 09/07/222231) methylPREDNISolone sod succ (SOLU-MEDROL (PF)) injection 40 mg (40 mg Intravenous Given 09/07/222249) Results: Labs Reviewed COMP. METABOLIC PANEL (71807) - Abnormal; Notable for the following components: Result Value GLUCOSE 151 (*) CREATININE 0.48 (*) T PROTEIN 8.3 (*) ALK PHOS 129 (*) All other components within normal limits Narrative: Association of Glomerular Filtration Rate (GFR) and Staging of Kidney Disease* + + + + | GFR (mL/min/1.73 m2) | With Kidney Damage | Without Kidney Damage + + + + | >90 | Stage one | Normal + + + + | 60-89 | Stage two | Decreased GFR + + + + | 30-59 | Stage three | Stage three + + + + | 15-29 | Stage four | Stage four + + + + | <15 (or dialysis) | Stage five | Stage five + + + + *Each stage assumes the associated GFR level has been in effect for at least three months. Stages 1to 5, with or without kidney disease, indicate chronic kidney disease. Notes: Determination of stages one and two (with eGFR >59mL/min/1.73 m2) requires estimation of kidney damage for at least three months as defined by structural or functional abnormalities of the kidney, manifested by either: Pathological abnormalities or Markers of kidney damage (including abnormalities in the composition of the blood or urine or abnormalities in imaging tests). CBC WITH DIFF - Abnormal; Notable for the following components: MCHC 31.5 (*) EOS x10^3 0.61 (*) All other components within normal limits N-TERMINAL PRO-BNP - Normal TROPONIN I - Normal Narrative: Reference (Normal) Range (defined by the 99th percentile reference limit): <= 0.034 ng/mL Note: Cardiac troponin begins to rise 3-4 hours after the onset of ischemia. Repeat in 4-6 hours ifthe sample was drawn within 3-4 hours of [...] cardiopulmonary finding. RL: 1825 End of Report HEAD WO CONTRAST Preliminary Result The tip of right frontal approach GLAZE CARRIER shunt is at the left basal ganglia. Slight interval prominence of bilateral lateral ventricles, right greater than left. Persistent low-lying cerebellar tonsils keeping with patient known parenchyma on formation. Persistent partial empty sella. No acute intracranial hemorrhage or mass effect. Preliminary Report Dictated by Resident: Bert Cabrera Additional Notes: Diagnosis/Impression as of 09/08/22 0146 SOB (shortness of breath) Chest pain, unspecified type Acute cough Headache disorder Medical Decision Making Kina Parham is a 42 year old female whopresents to the ED with numerous complaints Problems Addressed: Headache disorder: chronic illness or injury Details: CT findinsg dioscussed with Neurosurgery DR Sahu who recommends outpatient follow-up on the CT findings with Dr Grimaldo SOB (shortness of breath): chronic illness or injury Amount and/or Complexity of Data Reviewed External Data Reviewed: labs and radiology. Labs: ordered. Decision-making details documented in ED Course. Radiology: ordered and independent interpretation performed. Decision-making details documented in ED [...] Condition Stable Comment -- Miguel Mendoza MD 09/08/22 0146 [facility]
[2024-06-28] MEDS ORDERED: METHYLPREDNISOLONE 125 MG INJ ONE (21:03)
[2024-06-28] MEDS ORDERED: IPRATROPIUM BROM 0.5MG/2.5ML ONE (21:03)
[2024-06-28] MEDS ORDERED: ALBUTEROL 2.5 MG/3 ML NEB SOL ONE (21:03)
--- NOTE | 2024-06-28 21:38 | RAD REPORT ---
EXAM: Chest Single View HISTORY: 44 years Female DYSPNEA COMPARISON: 12/24/2023 FINDINGS: LUNGS/PLEURA: Increased indistinctness of the interstitial markings probably related to body habitus and portable technique rather than edema.. No consolidative airspace disease. No pneumothorax or pleural effusions identified. CARDIAC/MEDIASTINUM: Mild cardiomegaly UPPER ABDOMEN: No significant abnormality. BONES: No acute abnormality. LINES/TUBES/OTHER: METALIZING SUPERVISOR shunt overlies the right hemithorax. IMPRESSION: No definite evidence of acute cardiopulmonary disease. See above
[2024-06-28 21:51] LABS: Anion Gap 9.2 mEq/L (5.0-15.0); Potassium 4.2 mEq/L (3.5-5.1); Troponin High Sensitivity 3.2 pg/mL (<58.9)
[2024-06-28 22:09] LABS: Absolute Basophils 0.1 K/uL (0-0.5); Absolute Eosinophils 0.5 K/uL (0-0.5); Absolute Monocytes 0.4 K/uL (0.1-1.3); Absolute Neutrophil 6.3 K/uL (1.8-8.0); Basophils % 0.7 % (0-1.3); Eosinophils % 4.9 % (0-4.4); Hematocrit 39.9 % (36.0-45.0); Hemoglobin 13.2 g/dL (12.0-15.0); Lymphocytes % 21.4 % (15.3-44.8); MCHC 33.1 g/dL (32.0-36.0); MCV 84.4 fL (80-100); MPV 8.7 fL (7.6-11.3); Monocytes % 4.4 % (3.3-12.3); Neutrophils % 68.6 % (41.7-73.7); Nucleated Red Blood Cells % 0.1 % (0-0); Platelets 211 thou/uL (152-406); RBC Red Blood Cell Count 4.73 M/uL (3.86-4.86); Red Cell Distribution Width 16.8 % (12.1-15.2)
[2024-06-28 23:19] LABS: SARS-CoV-2 Antigen Rapid Res Negative (Negative)
--- NOTE | 2024-06-28 23:25 | EDPHYS ---
Physician Documentation [facility] Name: Kina Parham Age: 44 yrs Sex: Female : 1980 Arrival Date: 06/28/2024 Time: 20:32 Bed 9 Private MD: ED Physician Jalil Huff HPI: 06/28 23:03 This 44 yrs old Female presents to ER via Ambulatory with complaints of Flu ms3 Symptoms, Shortness Of Breath. 23:04 44-year-old female with past medical history of asthma, arthritis, diabetes, ms3 hypertension, pneumonia presents to the emergency department for shortness of breath that began this morning associated with chest tightness and pressure. Patient denies nausea, vomiting, diaphoresis. She denies any alleviating or inciting factors.. 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 Cardiovascular: Negative for chest ms3 pain, and palpitations. Abdomen/GI: Negative for abdominal pain, nausea, vomiting, diarrhea, and constipation, 23:04 MS/Extremity: Negative for injury and deformity, Skin: Negative for injury, rash, and discoloration, 23:04 Respiratory: Positive for cough, shortness of breath, Exam: 23:04 Constitutional: This is a well developed, well nourished patient who is awake, alert, ms3 and in no acute distress. Chest/axilla: Normal chest wall appearance and motion. Nontender with no deformity. Cardiovascular: Regular rate and rhythm with a normal S1 and S2. No gallops, murmurs, or rubs. Normal PMI, no JVD. No pulse deficits. 23:04 Abdomen/GI: Soft, non-tender, with normal bowel sounds. No distension or tympany. No guarding or rebound. No evidence of tenderness throughout. 23:04 Respiratory: moderate respiratory distress is noted, Respirations: normal, Breath sounds: wheezing: is heard diffusely, 23:19 ECG was reviewed by the Attending Physician. ms3 Vital Signs: 21:40 BP 136 / 59; Pulse 91; Resp 24; Temp 97.9(O); Pulse Ox 96% on R/A; iw 06/29 00:03 BP 140 / 80; Pulse 78; Resp 16; Pulse Ox 97% on R/A; kl MDM: 06/28 20:52 Medical Screening Exam initiated ms3 23:27 Differential diagnosis: Anxiety Reaction asthma, CHF exacerbation, Chronic Obstructive ms3 Pulmonary Disease pneumonia. Data reviewed: vital signs, nurses notes, lab test result(s), EKG, radiologic studies, and as a result, I will discharge patient. I considered the following discharge prescriptions or medication management in the emergency department Medications were administered in the Emergency Department. See MAR. Independent interpretation of the following test(s) in the Emergency Department EKG: See my EKG interpretation above. Counseling: I had a detailed discussion with the patient and/or guardian regarding the historical points, exam findings, and any diagnostic results supporting the discharge/admit diagnosis, lab results, radiology results, the need for outpatient follow up, to return to the emergency department if symptoms worsen or persist or if there are any questions or concerns that arise at home. Special discussion: I discussed with the patient/guardian in detail that at this point there is no indication for admission to the hospital. It is understood, however, that if the symptoms persist or worsen the patient needs to return immediately for re-evaluation. ED course: Discussed negative COVID, normal EKG, chest x-ray findings with the patient and her son. Patient to follow-up with primary care physician in 2 to 3 days. Patient understands agrees with plan. All questions were answered. Return precautions discussed include worsening symptoms, or any other concerns. Prescriptions given for albuterol and prednisone. On reevaluation patient's respiratory rate improved, speaking full sentences, wheezing resolved.. 06/28 20:45 Order name: SARS-COV-2 Antigen Rapid; Complete Time: 23:24 ms3 06/28 20:53 Order name: Basic Metabolic Panel; Complete Time: 22:01 3 06/28 20:53 Order name: CBC with Diff; Complete Time: 22:33 ms3 06/28 20:53 Order name: Magnesium; Complete Time: 22:01 3 06/28 20:53 Order name: NT PRO-BNP; Complete Time: 22:01 ms3 06/28 20:53 Order name: Troponin HS; Complete Time: 22:01 ms3 06/28 20:53 Order name: XRAY Chest (1 view); Complete Time: 22:01 ms3 06/28 20:53 Order name: EKG; Complete Time: 20:53 ms3 06/28 20:53 Order name: Cardiac monitoring ms3 06/28 20:53 Order name: EKG - Nurse/Tech; Complete Time: 23:19 ms3 06/28 20:53 Order name: IV Saline Lock; Complete Time: 21:07 ms3 06/28 20:53 Order name: Labs collected and sent; Complete Time: 21: ms3 06/28 20:53 Order name: O2 Per Protocol; Complete Time: 21:43 ms3 06/28 20:53 Order name: O2 Sat Monitoring; Complete Time: 21:43 ms3 EC:19 Rate is 81 beats/min. Rhythm is regular. QRS [place] is Normal. [place] interval is normal. QRS ms3 interval is normal. Clinical impression: NSR w/ Non-specific ST/T Changes. Interpreted by me. Reviewed by me. Administered Medications: 21:15 Drug: DuoNeb Nebulize (2.5 mg - 0.5 mg) 3 ml Nebulizer once Route: Nebulizer; iw 21:30 Follow up: Response: No adverse reaction iw 21:40 Drug: MethylPrednisoLONE IVP 125 mg IVP once Route: IVP; Site: right antecubital; iw 22:40 Follow up: Response: No adverse reaction iw Disposition Summary: 06/28/24 23:25 Discharge Ordered Notes: Location: Home ms3 Condition: Stable ms3 Diagnosis - Unspecified asthma with (acute) exacerbation ms3 - Essential (primary) hypertension ms3 Followup: ms3 - With: Jd Ty, DO - When: 2 - 3 days - Reason: Recheck today's complaints Discharge Instructions: - Discharge Summary Sheet ms3 - Asthma, Adult ms3 - Hypertension, Adult ms3 - DASH Eating Plan ms3 Forms: - Medication Reconciliation Form ms3 - Antibiotic Education ms3 - Prescription Opioid Use ms3 - Patient Portal Instructions ms3 - Leadership Thank You Letter ms3 Prescriptions: - albuterol sulfate 90 mcg/actuation Inhalation HFA Aerosol Inhaler - inhale 2 puff INHALATION route every 4 hours; 1 unit; Refills: 0, Product ms3 Selection Permitted - Prednisone 20 mg Oral Tablet - take 2 tablets ORAL route once daily for 5 days; 10 tablet; Refills: 0, Product ms3 Selection Permitted Signatures: Dispatcher [employer] Cora Grant RN RN iw Sims, Marcus, DO DO ms3 Corrections: (The following items were deleted from the chart) 21:24 20:45 Chest Pa And Lat (2 Views)+[email or web address] ordered. SOUMYA DOOLEY
--- NOTE | 2024-06-28 23:25 | ER ---
Nurse's Notes [facility] Name: Kina Parham Age: 44 yrs Sex: Female : 1980 Arrival Date: 06/28/2024 Time: 20:32 Bed 9 Private MD: Diagnosis: Unspecified asthma with (acute) exacerbation;Essential (primary) hypertension Presentation: 06/28 20:49 Chief complaint: Patient states: started a new inhaler, has been SOB since this morning iw , hx of asthma. Coronavirus screen: Client presents with at least one sign or symptom that may indicate coronavirus-19. Ebola Screen: No symptoms or risks identified at this time. Initial Sepsis Screen: Does the patient meet any 2 criteria? HR > 90 bpm. Does the patient have a suspected source of infection? No. Patient's initial sepsis screen is negative. Risk Assessment: Do you want to hurt yourself or someone else? Patient reports no desire to harm self or others. Onset of symptoms was June 28, 2024. 20:49 Method Of Arrival: Ambulatory iw 20:49 Acuity: DOMINIC 3 iw Triage Assessment: 06/29 00:04 General: Appears in no apparent distress. Behavior is calm, cooperative. Respiratory: kl Reports shortness of breath the patient has mild shortness of breath. Historical: - Allergies: 06/28 20:50 No Known Allergies; iw - PMHx: 20:50 Asthma; Arthritis; diabetes mellitus; Hypertension; Pneumonia; iw - PSHx: 20:50 tubal ligation; hernia repair; BEAN SNAPPER shunt; iw Screenin/17 00:02 [facility] ED Fall Risk Assessment (Adult) History of falling in the last 3 months, kl including since admission No falls in past 3 months (0 pts) Confusion or Disorientation No (0 pts) Intoxicated or Sedated No (0 pts) Impaired Gait No (0 pts) Mobility Assist Device Used No (0 pt) Altered Elimination No (0 pt) Score/Fall Risk Level 0 - 2 = Low Risk Oriented to surroundings, Maintained a safe environment. Abuse screen: Denies threats or abuse. Nutritional screening: No deficits noted. Tuberculosis screening: No symptoms or risk factors identified. Assessment: 00:02 Reassessment: Patient appears in no apparent distress at this time. Patient denies pain kl at this time. Patient states feeling better. Patient states symptoms have improved. Pain: Denies pain. Cardiovascular: No deficits noted. Rhythm is regular. Respiratory: No deficits noted. Airway is patent Respiratory effort is even, unlabored, Breath sounds are clear bilaterally. Vital Signs: 06/28 21:40 BP 136 / 59; Pulse 91; Resp 24; Temp 97.9(O); Pulse Ox 96% on R/A; iw 06/29 00:03 BP 140 / 80; Pulse 78; Resp 16; Pulse Ox 97% on R/A; ED Course: 06/28 20:34 Patient arrived in ED. im 20:37 Jalil Huff DO is Attending Physician. ms3 20:50 Triage completed. iw 20:51 Arm band placed on. iw 21:07 Initial lab(s) drawn, by me, sent to lab. Inserted saline lock: 20 gauge in right iw antecubital area, using aseptic technique. Blood collected. Flushed with 10 mL NS. 21:24 XRAY Chest (1 view) In Process Unspecified. EDMS 21:40 Cora Foster, GLORIA is Primary Nurse. iw 23:25 Jd Ty DO is Referral Physician. ms3 06/29 00:03 No provider procedures requiring assistance completed. IV discontinued, intact, kl bleeding controlled, No redness/swelling at site. Pressure dressing applied. Administered Medications: 06/28 21:15 Drug: DuoNeb Nebulize (2.5 mg - 0.5 mg) 3 ml Nebulizer once Route: Nebulizer; iw 21:30 Follow up: Response: No adverse reaction iw 21:40 Drug: MethylPrednisoLONE IVP 125 mg IVP once Route: IVP; Site: right antecubital; iw 22:40 Follow up: Response: No adverse reaction iw Outcome: 23:25 Discharge ordered by . ms3 06/29 00:03 Discharged to home ambulatory, with family, Condition: improved Discharge instructions given to patient, family, Instructed on discharge instructions, follow up and referral plans. medication usage, Demonstrated understanding of instructions, follow-up care, medications, Prescriptions given X 2, 00:04 Patient left the ED. kl Signatures: Dispatcher [employer] Tami Brooks RN RN Cora Foster RN RN Jalil Huff DO DO ms3 Tamie Davis im
[2024-06-29 00:27] VITALS: TEMP 97.9
[2024-06-29 00:33] VITALS: BP 140/80; O2SAT 97
== END 2024-06-29 00:04 | disposition home or self-care (01) ==
LOC: ER 20:32
DX: J45.901 Unspecified asthma with (acute) exacerbation (principal); I10 Essential (primary) hypertension; E11.9 Type 2 diabetes mellitus without complications; Z11.52 Encounter for screening for COVID-19; Z98.2 Presence of cerebrospinal fluid drainage device
CPT/HCPCS: 85025; 80048; 36415; 83735; 84484; 83880; 71045; 96374; 99285; 87426; J7613; J7644; J2919; 93005